=== PATIENT | female | born 1935 | race Caucasian/White ===

== ENCOUNTER 2018-06-11 09:51 | Inpatient (IN) | payer MEDICARE, MEDICAID ==
[2018-06-11] VITALS (22 sets, daily range): BP systolic 101–182; BP diastolic 53–101; PULSE 70–118; RESP 15–24
[~2018-06-11] VITALS: Ht 162.6 cm; Wt 88.0 kg
[2018-06-11] MEDS ORDERED: NITROGLYCERIN 50 MG/D5W (PMX) 250 ML IV STA (09:56)
[2018-06-11] MEDS ORDERED: FUROSEMIDE 40 MG INJ IV STA (09:56)
[2018-06-11] MEDS ORDERED: ASPIRIN 325 MG TAB PO STA (09:56)
[2018-06-11] MEDS ORDERED: ALLO100T PO (10:31)
[2018-06-11] MEDS ORDERED: ATOR40TA68 PO (10:32)
[2018-06-11] MEDS ORDERED: METF-849 PO (10:32)
[2018-06-11] MEDS ORDERED: CALC1TAB93 PO (10:33)
[2018-06-11] MEDS ORDERED: DOCU-144 PO (10:33)
[2018-06-11] MEDS ORDERED: GABA100C14 PO (10:33)
[2018-06-11] MEDS ORDERED: MELO7.5T38 PO (10:33)
[2018-06-11] MEDS ORDERED: ASPI-817 PO (10:34)
[2018-06-11] MEDS ORDERED: EMPA10TA PO (10:34)
[2018-06-11] MEDS ORDERED: ESOM20CA PO (10:34)
[2018-06-11] MEDS ORDERED: FERR325T5 PO (10:35)
[2018-06-11] MEDS ORDERED: ATEN-51 PO (10:35)
[2018-06-11] MEDS ORDERED: ALEN70TA5 PO ×2 (10:35→10:36)
[2018-06-11] MEDS ORDERED: ERGO2000 PO (10:37)
[2018-06-11] MEDS ORDERED: DULA0.75 SQ (11:00)
[2018-06-11] MEDS ORDERED: INSU100I33 SC (11:00)
--- NOTE | 2018-06-11 11:42 | ERD ---
ER Documentation Chief Complaint Chief Complaint BIB RA FOR EVAL OF SOB. BREATHING TX BY EMS HPI 82-year-old Irish speaking female presents the emergency department by paramedics complaining of shortness of breath. History available using the son as a diplomatic interpreter/translator. Patient was in her usual state of health until last night at which time she began feeling short of breath. Her shortness of breath continued over the course of the evening and got worse this morning. There was no associated chest pain, fevers, hemoptysis, sputum production. 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 Pre-hospital vital signs were reviewed. Pre-hospital diagnostic tests were reviewed. She was hypoxemic in the field and given albuterol Upon arrival, patient is complaining of shortness of breath without chest pain. ROS All systems reviewed and are negative except as per history of present illness. Medications Home Meds Reported Medications Dulaglutide (Trulicity) 0.75 Mg/0.5 Ml Pen.injctr, 1.75 MG SQ WEEKLY 06/11/18 Insulin Glargine,Hum.rec.anlog (Basaglar Kwikpen U-100) 100 Unit/1 Ml Insuln.pen, 30 UNIT SC DAILY, EA 06/11/18 Ergocalciferol (Vitamin D2) (VITAMIN D2) 2,000 Unit Tablet, 2000 UNIT PO DAILY, TAB 06/11/18 Alendronate Sodium* (Fosamax*) 70 Mg Tablet, 70 MG PO Q7D, #4 TAB 06/11/18 Alendronate Sodium* (Fosamax*) 70 Mg Tablet, 70 MG PO Q7D, #4 TAB 06/11/18 Atenolol* (Atenolol*) 25 Mg Tablet, 25 MG PO BID, #60 TAB 06/11/18 Ferrous Sulfate (Ferrous Sulfate) 325 Mg Tablet.dr, 325 MG PO DAILY 06/11/18 Aspirin* (Aspirin* EC) 81 Mg Tablet.dr, 81 MG PO DAILY, TAB 06/11/18 Empagliflozin (Jardiance) 10 Mg Tablet, 10 MG PO DAILY, TAB 06/11/18 Esomeprazole Mag Trihydrate (Nexium) 20 Mg Capsule.dr, 20 MG PO AC BREAKFAST, #30 CAP 06/11/18 Gabapentin* (Gabapentin*) 100 Mg Capsule, 100 MG PO QHS, #90 CAP 06/11/18 Meloxicam* (Meloxicam*) 7.5 Mg Tablet, 7.5 MG PO DAILY, #30 TAB 06/11/18 Calcium Carbonate/Vitamin D3 (OYSTER SHELL 500 MG + VIT D TB) 1 Each Tablet, 1 EACH PO BID, TAB 06/11/18 Docusate Sodium* (Colace*) 100 Mg Capsule, 100 MG PO TID, #60 CAP 06/11/18 Metformin* (Glucophage*) 500 Mg Tab, 500 MG PO BID, #90 TAB 06/11/18 Atorvastatin* (Atorvastatin*) 40 Mg Tablet, 40 MG PO QHS, #30 TAB 06/11/18 Allopurinol* (Allopurinol*) 100 Mg Tablet, 100 MG PO BID, TAB 06/11/18 Allergies Allergies: Coded Allergies: No Known Allergies (Verified Allergy, Unknown, 06/11/18) FmHx Supportive son at the bedside. Physical Exam Vitals Vital Signs Date Temp Pulse Resp B/P (MAP) Pulse Ox O2 O2 Flow FiO2 Time Delivery Rate 06/11/18 79 100 40 11:31 06/11/18 98 20 182/97 97 BIPAP 10:23 (125) 06/11/18 90 94 50 10:07 06/11/18 89 25 223/114 94 09:51 (150) Physical Exam GENERAL: Ill-appearing elderly female HEENT: Pupils equal, round, and reactive to light. EOMI. There is no scleral icterus. NECK: C-spine is soft and supple, there is no meningismus. There is no cervical lymphadenopathy. JVD appreciated LUNGS: Crackles bilaterally. Mild tachypnea. No retractions. HEART: Regular rate and rhythm. Soft murmur over the precordium. ABDOMEN: Soft, non-tender, non-distended. There are bowel sounds in all four quadrants. No rebound or guarding. EXTREMITIES: 1+ edema bilaterally no cyanosis or clubbing NEURO: The patient moves all four extremities with 5/5 strength. Cranial nerves II - XII are intact. Normal gait. Alert and oriented SKIN: There is no apparent rash or petechiae. HEME/LYMPHATIC: There is no evidence of excessive bruising or lymphedema. PSYCHIATRIC: The patient does not appear anxious or depressed. Result Diagram: 06/11/18 1029 06/11/18 1029 Results 24 hrs Laboratory Tests Test 06/11/18 10:29 White Blood Count 11.4 10^3/ul Red Blood Count 4.44 10^6/ul Hemoglobin 12.5 g/dl Hematocrit 39.9 % Mean Corpuscular Volume 89.9 fl Mean Corpuscular Hemoglobin 28.2 pg Mean Corpuscular Hemoglobin Concent 31.3 g/dl Red Cell Distribution Width 13.2 % Platelet Count 284 10^3/UL Mean Platelet Volume 11.6 fl Immature Granulocytes % 0.700 % Neutrophils % 72.6 % Lymphocytes % 21.1 % Monocytes % 4.5 % Eosinophils % 0.7 % Basophils % 0.4 % Nucleated Red Blood Cells % 0.0 /100WBC Immature Granulocytes # 0.080 10^3/ul Neutrophils # 8.3 10^3/ul Lymphocytes # 2.4 10^3/ul Monocytes # 0.5 10^3/ul Eosinophils # 0.1 10^3/ul Basophils # 0.1 10^3/ul Nucleated Red Blood Cells # 0.0 10^3/ul Sodium Level 144 mmol/L Potassium Level 5.0 mmol/L Chloride Level 104 mmol/L Carbon Dioxide Level 28 mmol/L Anion Gap 12 Blood Urea Nitrogen 35 mg/dl Creatinine 1.36 mg/dl Est Glomerular Filtrat Rate mL/min mL/min Glucose Level 452 mg/dl POC Venous Lactate 1.9 mmol/L Calcium Level 10.4 mg/dl Total Bilirubin 0.2 mg/dl Direct Bilirubin 0.00 mg/dl Indirect Bilirubin 0.2 mg/dl Aspartate Amino Transf (AST/SGOT) 29 IU/L Alanine Aminotransferase (ALT/SGPT) 58 IU/L Alkaline Phosphatase 124 IU/L Troponin I 0.043 ng/ml B-Type Natriuretic Peptide 6640 PG/ML Total Protein 7.0 g/dl Albumin 4.1 g/dl Globulin 2.90 g/dl Albumin/Globulin Ratio 1.41 Current Medications Medications Dose Sig/Peter Start Time Status Last (Trade) Ordered Route PRN Stop Time Admin Dose Reason Admin 250 ml @ ONCE STAT 06/11/18 06/11/18 Nitroglycerin 12 mls/hr IV 09:56 10:13 / Dextrose 06/12/18 06:45 Aspirin 325 mg ONCE STAT 06/11/18 DC 06/11/18 (Aspirin) PO 09:56 10:23 3/13/19 09:57 Furosemide 40 mg ONCE STAT 06/11/18 DC 06/11/18 (Lasix) IV 09:56 10:23 06/11/18 09:57 Procedures/MDM Patient was taken to a room, seen and evaluated. Comfort measures were initiated. Patient was immediately initiated on BiPAP and a nitroglycerin drip was started for the severe high blood pressure Diagnostic tests were ordered and reviewed. 3 LEAD RHYTHM STRIP: Normal sinus rhythm with PVCs EKG: [employer] 12 lead EKG reviewed by myself: Normal Sinus Rhythm with PVCs LVH, nonspecific interventricular conduction delay No ST elevation, depression, or T wave inversion, nonspecific ST and T wave changes Impression: Abnormal EKG without ST elevation Repeat EKG performed upon arrival and interpreted by myself: Normal sinus rhythm First-degree AV block. LVH. Nonspecific ST and T wave changes without ST elevation Impression: Consistent with underlying heart disease RADIOLOGY: Reviewed with the radiologist CONSULTATION: Primary care doctor, Dr. King was notified for admission REEVALUATION: Patient improved significantly. Her blood pressure improved. Respiratory effort improved on BiPAP. She had no further hypoxemia. Diagnostic tests were appreciated and arrangements were made for admission to the hospital. MEDICAL DECISION MAKING: Patient presents for shortness of breath. Differential diagnosis entertained included asthma, pneumonia, other cardiac and pulmonary concerns. After reviewing the patient's diagnostic tests and clinical presentation, patient appears to have decompensated congestive heart failure, complicated by diabetes as well as severe accelerated hypertension all resulting in a hypoxemic respiratory failure. She will require admission to the hospital for further diuresis, pulmonary supportive care and further observation. CRITICAL CARE: Time:>35 minutes Patient has a significant chance of clinical deterioration Treatments/Evaluations: Close monitoring and treatment of unstable vital signs, cardiorespiratory, and neurologic status, while maintaining tight balance of fluid, respiratory, and cardiac interventions. Departure Diagnosis: Primary Impression: Congestive heart failure Additional Impressions: Hypertension Diabetes Respiratory failure Condition: Serious SPENCER MACK Jun 11, 2018 11:42
[2018-06-11] MEDS ORDERED: CEFTRIAXONE 1 GM/50 ML (PMX) 50 ML IVPB ONE (16:30)
--- NOTE | 2018-06-11 17:06 | RADRPT ---
Echocardiogram Report Patient Name: Bhavani COLEMAN ID: [id number] : 1935 (82y 6m)Study Date: 06/11/2018 4:22:53 PM Gender: FAccession #: [id number] Tech: [facility] Location: [facility] Ref.Physician: ALEX CHÁVEZ Height(Cm): BSA: Weight(Kg): Quality: AdequateAccount #: Procedures: Echocardiographic Report: Transthoracic echocardiogram with complete 2D, M-Mode, and doppler examination. Indications: Congestive Heart Failure. Measurements: 2D/M Mode Doppler Measurement Value Normal Range Measurement Value Normal Range LVIDd 2D 4.6 [ 3.8 - 5.2 ] cm AV Peak Anuj 1.7 [ 100.0 - 170.0 ] cm/sec LVIDs 2D 3.2 [ 2.2 - 3.5 ] cm AV Peak PG 11.0 [ 2.0 - 9.0 ] mmHg LVPWd 2D 1.1 [ 0.6 - 0.9 ] cm LVOT Peak Anuj 0.8 [ 70.0 - 110.0 ] cm/sec IVSd 2D 1.1 [ 0.6 - 0.9 ] cm LVOT Peak PG 2.0 [ 2.0 - 6.0 ] mmHg IVS/LVPW 2D 1.0 ratio MV E Peak Anuj 0.8 [ 60.0 - 130.0 ] cm/sec AoR Diam 2D 2.3 [ 2.3 - 3.1 ] cm MV A Peak Anuj 0.6 [ 100.0 - 120.0 ] cm/sec LA/Ao 2D 2 ratio MV E/A 1.3 [ 0.8 - 1.5 ] ratio LA Dimen 2D 3.7 [ 2.7 - 3.8 ] cm MV Decel Time 148 [ 104 - 258 ] msec Med E` Anuj 0.1 cm/sec MV E/A 1.3 [ 0.8 - 1.5 ] ratio TR Peak Anuj 2.2 [ 100.0 - 280.0 ] cm/sec TR Peak PG 19.0 mmHg RVSP 22.0 [ 10.0 - 36.0 ] mmHg Findings: Left Ventricle: Lower limits of normal systolic function. Normal left ventricular cavity size. Normal left ventricular wall thickness. Ejection fraction is visually estimated at 50 %. Abnormal Diastolic Function. Right Ventricle: Normal right ventricular size. Normal right ventricular systolic function. Left Atrium: The left atrium is normal in size. Right Atrium: The right atrium is normal in size. Echogenic structure seen. Mitral Valve: Mild mitral leaflet calcification. Mild mitral annular calcification. Trace mitral regurgitation. Aortic Valve: No significant aortic stenosis or insufficiency. Aortic cusps appear mildly calcified. Tricuspid Valve: Estimated peak PA systolic pressure 22 mmHg. Echogenic structure is seen on the tricuspid valve. Differential includes vegetation, tumor or thrombus. Pulmonic Valve: Normal pulmonic valve appearance. Pericardium: Normal pericardium with no significant pericardial effusion. Left pleural effusion seen. Aorta: Normal aortic root. IVC: Normal size and normal respiratory collapse consistent with normal right atrial pressure. Echogenic structure seen. Conclusions: Lower limits of normal systolic function. Normal left ventricular cavity size. Normal left ventricular wall thickness. Ejection fraction is visually estimated at 50 %. Abnormal Diastolic Function. Normal right ventricular size. Normal right ventricular systolic function. The left atrium is normal in size. The right atrium is normal in size. Echogenic structure seen. Estimated peak PA systolic pressure 22 mmHg. Echogenic structure is seen on the tricuspid valve. Differential includes vegetation, tumor or thrombus. No significant aortic stenosis or insufficiency. Trace mitral regurgitation. Normal size and normal respiratory collapse consistent with normal right atrial pressure. Echogenic structure seen. Normal pericardium with no significant pericardial effusion. Left pleural effusion seen. Electronically Signed By: Alex Chávez 2018-06-11 17:05:55 PDT
[2018-06-11] MEDS ORDERED: ZOLPIDEM 5 MG TAB PO PRN (17:30)
[2018-06-11] MEDS ORDERED: FUROSEMIDE 20 MG INJ IV ONE (17:30)
--- NOTE | 2018-06-11 17:41 | CONS ---
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 In emergency room, patient with acute respiratory failure requiring BiPAP and severe hypertension. Patient was treated with BiPAP, IV diuretics and IV nitroglycerin and has since been weaned off BiPAP. On examination, she does have decompensated congestive heart failure. -Furthermore, echocardiogram demonstrated an echogenic structure in the right atrium, as well as attached to the tricuspid valve as well as the IVC. Differential includes vegetation, malignancy or thrombus. In discussion with patient and son, she did have chills this morning but otherwise no prodrome history of prolonged fevers or chills. She did have a history of renal carcinoma approximately 8 years ago and this was resected. -I have requested blood cultures, CT abdomen pelvis to evaluate for any malignancy, venous Doppler to evaluate for any DVT -Check serial cardiac enzymes, diuretics as renal function and blood pressure permits, antihypertensive medication titration -Findings and plan of care was discussed with patient's primary physician as well as patient's son at bedside. Consultation Date/Type/Reason Admit Date/Time Type of Consult Cardiology Reason for Consultation Shortness of breath Date/Time of Note DATE: 06/11/18 TIME: 17:33 Hx of Present Illness This is an 82-year-old female with past medical history of coronary artery disease status post CABG over 20 years ago, renal cell carcinoma status post nephrectomy approximately 8 years ago, hypertension, diabetes who presents with progressive worsening shortness of breath since last night. Denies chest pain or palpitations. Did have chills this morning. Symptoms getting progressively worse so she came to the emergency room. Patient was initially on BiPAP and given diuretics and put on IV nitroglycerin and is since improved and is currently on nasal cannula. Denies any chest pain, shortness of breath or palpitations. Except for chills this morning, she denies any fevers or symptoms prior. As per the son, proxy 1 week ago, patient with more frequent forgetfu lness and difficulty remembering phone numbers. Denies weight loss or weight gain or change in appetite. 12 point review of systems was performed with all pertinent positives and negatives mentioned above and all else is negative Past Medical History Medical History: coronary artery disease, diabetes, high cholesterol, hypertension, renal disease Home Meds Reported Medications Dulaglutide (Trulicity) 0.75 Mg/0.5 Ml Pen.injctr, 1.75 MG SQ WEEKLY 06/11/18 Insulin Glargine,Hum.rec.anlog (Basaglar Kwikpen U-100) 100 Unit/1 Ml Insuln.pen, 30 UNIT SC DAILY, EA 06/11/18 Ergocalciferol (Vitamin D2) (VITAMIN D2) 2,000 Unit Tablet, 2000 UNIT PO DAILY, TAB 06/11/18 Alendronate Sodium* (Fosamax*) 70 Mg Tablet, 70 MG PO Q7D, #4 TAB 06/11/18 Alendronate Sodium* (Fosamax*) 70 Mg Tablet, 70 MG PO Q7D, #4 TAB 06/11/18 Atenolol* (Atenolol*) 25 Mg Tablet, 25 MG PO BID, #60 TAB 06/11/18 Ferrous Sulfate (Ferrous Sulfate) 325 Mg Tablet.dr, 325 MG PO DAILY 06/11/18 Aspirin* (Aspirin* EC) 81 Mg Tablet.dr, 81 MG PO DAILY, TAB 06/11/18 Empagliflozin (Jardiance) 10 Mg Tablet, 10 MG PO DAILY, TAB 06/11/18 Esomeprazole Mag Trihydrate (Nexium) 20 Mg Capsule.dr, 20 MG PO AC BREAKFAST, #30 CAP 06/11/18 Gabapentin* (Gabapentin*) 100 Mg Capsule, 100 MG PO QHS, #90 CAP 06/11/18 Meloxicam* (Meloxicam*) 7.5 Mg Tablet, 7.5 MG PO DAILY, #30 TAB 06/11/18 Calcium Carbonate/Vitamin D3 (OYSTER SHELL 500 MG + VIT D TB) 1 Each Tablet, 1 EACH PO BID, TAB 06/11/18 Docusate Sodium* (Colace*) 100 Mg Capsule, 100 MG PO TID, #60 CAP 06/11/18 Metformin* (Glucophage*) 500 Mg Tab, 500 MG PO BID, #90 TAB 06/11/18 Atorvastatin* (Atorvastatin*) 40 Mg Tablet, 40 MG PO QHS, #30 TAB 06/11/18 Allopurinol* (Allopurinol*) 100 Mg Tablet, 100 MG PO BID, TAB 06/11/18 Medications Current Medications Nitroglycerin/ Dextrose 250 ml @ 12 mls/hr ONCE STAT IV Last administered on 06/11/18at 10:13; Admin Dose 30 MLS/HR; Start 06/11/18 at 09:56; Stop 06/12/18 at 06:45 Aspirin (Halfprin) 81 mg DAILY PO ; Start 06/12/18 at 09:00 Atorvastatin Calcium (Lipitor) 40 mg QHS PO ; Start 06/11/18 at 21:00 Docusate Sodium (Colace) 100 mg TID PO ; Start 06/11/18 at 21:00 Furosemide (Lasix) 40 mg DAILY ONCE IV ; Start 06/12/18 at 09:00; Stop 06/12/18 at 09:01 Clonidine (Catapres) 0.1 mg Q6 PRN PO for sbp over 160; Start 06/11/18 at 17:30; Status UNV Zolpidem Tartrate (Ambien) 5 mg HS PRN PO INSOMNIA; Start 06/11/18 at 17:30; Status UNV Allergies: Coded Allergies: No Known Allergies (Verified Allergy, Unknown, 06/11/18) Past Surgical History Past Surgical Hx: coronary bypass surgery, other (Nephrectomy approximately 8 years ago) Family History Significant Family History: no pertinent family hx Social History Alcohol Use: none Smoking Status: Never smoker Exam/Review of Systems Vital Signs Vitals Vital Signs Date Temp Pulse Resp B/P (MAP) Pulse Ox O2 O2 Flow FiO2 Time Delivery Rate 06/11/18 98.0 71 20 179/76 96 Room Air 4.0 16:20 (110) 74 BIPAP Nasal Cannula 06/11/18 40 11:31 Exam Constitutional: alert, oriented (No apparent distress, son at bedside) Head: normocephalic Respiratory: other (Coarse breath sounds bilaterally, no wheezing) Cardiovascular: regular rate and rhythm, other (S1-S2 heard) Gastrointestinal: soft, non-tender, bowel sounds Extremities: edema Labs Result Diagram: 06/11/18 1029 06/11/18 1029 Results 24hrs Laboratory Tests Test 06/11/18 10:29 06/11/18 15:26 White Blood Count 11.4 H Red Blood Count 4.44 Hemoglobin 12.5 Hematocrit 39.9 Mean Corpuscular Volume 89.9 Mean Corpuscular Hemoglobin 28.2 L Mean Corpuscular Hemoglobin Concent 31.3 L Red Cell Distribution Width 13.2 Platelet Count 284 Mean Platelet Volume 11.6 H Immature Granulocytes % 0.700 H Neutrophils % 72.6 Lymphocytes % 21.1 Monocytes % 4.5 Eosinophils % 0.7 Basophils % 0.4 Nucleated Red Blood Cells % 0.0 Immature Granulocytes # 0.080 H Neutrophils # 8.3 H Lymphocytes # 2.4 Monocytes # 0.5 Eosinophils # 0.1 Basophils # 0.1 Nucleated Red Blood Cells # 0.0 Prothrombin Time 12.3 Prothrombin Time Ratio 1.0 INR International Normalized Ratio 0.90 Activated Partial Thromboplast Time 24.0 Sodium Level 144 Potassium Level 5.0 Chloride Level 104 Carbon Dioxide Level 28 Anion Gap 12 Blood Urea Nitrogen 35 H Creatinine 1.36 H Est Glomerular Filtrat Rate mL/min Glucose Level 452 *H Hemoglobin A1c 10.1 H POC Venous Lactate 1.9 Calcium Level 10.4 H Total Bilirubin 0.2 Direct Bilirubin 0.00 Indirect Bilirubin 0.2 Aspartate Amino Transf (AST/SGOT) 29 Alanine Aminotransferase (ALT/SGPT) 58 Alkaline Phosphatase 124 H Troponin I 0.043 B-Type Natriuretic Peptide 6640 H Total Protein 7.0 Albumin 4.1 Globulin 2.90 Albumin/Globulin Ratio 1.41 Lactic Acid Level 2.7 *H Imaging Imaging ECG demonstrates sinus rhythm at 93 bpm, septal Q waves, QRS 90 ms, nonspecific ST abnormalities Medications Medications Current Medications Nitroglycerin/ Dextrose 250 ml @ 12 mls/hr ONCE STAT IV Last administered on 06/11/18at 10:13; Admin Dose 30 MLS/HR; Start 06/11/18 at 09:56; Stop 06/12/18 at 06:45 Aspirin (Halfprin) 81 mg DAILY PO ; Start 06/12/18 at 09:00 Atorvastatin Calcium (Lipitor) 40 mg QHS PO ; Start 06/11/18 at 21:00 Docusate Sodium (Colace) 100 mg TID PO ; Start 06/11/18 at 21:00 Furosemide (Lasix) 40 mg DAILY ONCE IV ; Start 06/12/18 at 09:00; Stop 06/12/18 at 09:01 Clonidine (Catapres) 0.1 mg Q6 PRN PO for sbp over 160; Start 06/11/18 at 17:30; Status UNV Zolpidem Tartrate (Ambien) 5 mg HS PRN PO INSOMNIA; Start 06/11/18 at 17:30; Status UNV Alex Chávez DO Jun 11, 2018 17:41
[2018-06-11] MEDS ORDERED: VANCOMYCIN IV PER PHARMACY XX SCH (18:30)
[2018-06-11] MEDS: AMLODIPINE 5 MG TAB PO SCH (18:37)
--- NOTE | 2018-06-11 18:52 | HP ---
DATE OF ADMISSION: 06/11/2018 HISTORY OF PRESENT ILLNESS: An 82-year-old female who came into the emergency room with acute shortn ess of breath and discomfort over the chest. The patient has been having 1 week duration of elevated blood pressure in the 160s over 90s and for 1 week, she was very confused. She says she was very fo rgetful forgetting phone numbers of her children and not feeling right. She was complaining of some heaviness in the head and checking blood pressure which was elevated multiple times. She was taking her medications and she thought it would go away. She never called the office for evaluation or to c [facility] and see me in the office. Today, the patient woke up very short of breath, more confused and dis comfort over the chest with headache and rash in her head; therefore that is why she was brought into the emergency room. HOME MEDICATIONS: As follows: She is on: 1. Trulicity 0.75 once a week. 2. Insulin per sliding scale. 3. Vitamin D once a week. 4. Fosamax 70 once a week. 5. Atenolol 25 twice a day. 6. Ferrous sulfate twice a day. 7. Aspirin 81 once a day. 8. Jardiance 10 once a day. 9. Nexium 20 twice a day. 10. Gabapentin 100 twice a day. 11. Meloxicam 7.5 daily. 12. Calcium Os-Sanjay 500 twice a day. 13. Docusate on p.r.n. basis. 14. Metformin 500 twice a day. 15. Atorvastatin 40 once a day. 16. Allopurinol 100 once a day. ALLERGIES: NO KNOWN DRUG ALLERGIES. FAMILY HISTORY: Hypertension. PAST MEDICAL HISTORY: Atherosclerotic vascular disease, coronary artery disease. She has been follo wing up in the past with Dr. Mike De Oliveira. She has history of type 2 diabetes mellitus with compli cations that she has had history of kidney CA and nephrectomy in the past, history of osteoarthritis, gastroesophageal reflux disease, chronic anemia and degenerative joint disease. ALLERGIES: NO KNOWN DRUG ALLERGIES. REVIEW OF SYSTEMS: The patient is a little confused to me because I have known her for many, many ye ars. She looks a little confused. She is also short of breath. She denies of any headaches at this time. She denies of any chest pain, just complaining of discomfort for grasping air. She denies of any epigastric pain. She denies of any hesitancy, urgency or pain during urination. She just feels generally very weak and tired. PHYSICAL EXAMINATION: VITAL SIGNS: Blood pressure at this time is 180/97, heart rate 125, respiratory rate is 22 and she i s saturating 95% on BiPAP. HEENT: Head is atraumatic, normocephalic. Pupils are equal and reactive to light. Extraocular musc les are intact. Nares are clear. No obstruction, no deviation of the septum. Oral cavity: Normal oral hygiene and very dry mouth. Ear canals are clear. No signs of inflammation or infection. Tymp anic membranes are intact. NECK: Supple. No JVD, no surgical scars, no lymph nodes palpable over the neck. CHEST: AP contour is within normal limits. BREASTS: Nipples are normal. No nipple retraction. HEART: S1, S2. Regular rate and rhythm with cardiomegaly. LUNGS: Has crackles over the bases of the lungs; otherwise negative. ABDOMEN: Obese, soft, positive bowel sounds. No hepatosplenomegaly, no masses palpable over the abd omen and no rebound tenderness. EXTREMITIES: Has no edema, clubbing or cyanosis of the extremities. NEUROLOGIC: Cranial nerves II through XII are completely intact. No focal deficits at this time. LABORATORY RESULTS: White count is 11.4, hemoglobin 12.5, hematocrit 39.9 and platelets 284. Chemis try: Sodium 144, potassium 5.0, BUN is 35, creatinine 1.36. DIAGNOSTIC DATA: No acute changes in the EKG. Chest x-ray shows CHF. The patient at this time is on nitroglycerin drip and her blood pressure gradually came down to the 1 60s, but still maintaining on the nitro drip. She was given IV Lasix in the emergency room and at th is time, the patient is comfortable. ADMITTING DIAGNOSES: 1. Acute congestive heart failure exacerbation. 2. Acute sepsis, possible urinary tract infection. 3. Elevated lactate levels. 4. Type 2 diabetes mellitus, uncontrolled. 5. Hyperglycemia. 6. Diabetic neuropathy. 7. Gastroesophageal reflux disease. 8. Possible transient ischemic attacks. PLAN: Admit the patient to ICU. Continue nitro drip, BiPAP. We will consult with housekeeping cleaner, Dr. Rodriguez and winchman/crane operator, Dr. Serrato. We will get serial cardiac enzymes. We will diurese the pat ient and we will also get a CT head to rule out any ischemic changes. Dictated By: NUBIA TEJEDA MD SB/JAYDEN Conf#: [id number] DID#: [id number] CC: SPENCER MACK; PÉREZ SERRATO MD;*EndCC*
[2018-06-11] MEDS: hydrALAzine 20 MG INJ IV PRN (19:48)
[2018-06-11] MEDS ORDERED: DEXTROSE 50% 50 ML SYRINGE IV PRN ×2 (21:00)
[2018-06-11] MEDS ORDERED: GLUCAGON 1 MG INJ IM PRN (21:00)
[2018-06-11] MEDS ORDERED: GLUCOSE GEL 15 GRAM TUBE PO PRN ×2 (21:00)
[2018-06-11] MEDS ORDERED: GLUCOSE GEL 15 GRAM TUBE BUCCAL PRN (21:00)
--- NOTE | 2018-06-11 21:56 | CONS ---
Assessment/Plan Assessment/Plan Hospital Course (Demo Recall) History of renal carcinoma status post nephrectomy focally prominent 2.7 cm soft tissue lobulation in the inferior left renal lower pole adjacent to surgical clips, possibly reflecting postsurgical change or recurrent neoplasm. renal protocol multi phase enhanced CT or MRI. complete staging with CT AP CHECK LDH -Furthermore, echocardiogram demonstrated an echogenic structure in the right atrium, as well as attached to the tricuspid valve as well as the IVC. Differential includes vegetation, malignancy or thrombus. In discussion with patient and son, she did have chills this morning but otherwise no prodrome history of prolonged fevers or chills. She did have a history of renal carcinom a approximately 8 years ago and this was resected. The IVC is focally distended at the inferior cavoatrial junction, containing an 8 mm metallic focus which may lie within intravenous tumor mass. Evaluation is quite limited in the absence of intravenous contrast. 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 Coarse calcifications in the left breast parenchyma, most likely benign. diagnostic mammography as outpt Acute congestive heart failure exacerbation. Acute sepsis, possible urinary tract infection. Elevated lactate levels. Type 2 diabetes mellitus, uncontrolled. Hyperglycemia. Diabetic neuropathy. Gastroesophageal reflux disease. Possible transient ischemic attacks. Hypertension, uncontrolled Consultation Date/Type/Reason Admit Date/Time Date of Consultation: Jun 11, 2018 Type of Consult [facility] Reason for Consultation cardiac mass Requesting Provider: NUBIA TEJEDA MD Date/Time of Note DATE: 06/11/18 TIME: 21:45 Hx of Present Illness An 82-year-old female who came into the emergency room with acute shortness of breath and discomfort over the chest. The patient has been having 1 week duration of elevated blood pressure in the 160s over 90s and for 1 week, she was very confused. She says she was very forgetful forgetting phone numbers of her children and not feeling right. She was complaining of some heaviness in the head and checking blood pressure which was elevated multiple times. She was taking her medications and she thought it would go away. pt is more confused and have a discomfort over the chest with headache and rash in her head; therefore that is why she was brought into the emergency room. HOME MEDICATIONS: As follows: She is on: 1. Trulicity 0.75 once a week. 2. Insulin per sliding scale. 3. Vitamin D once a week. 4. Fosamax 70 once a week. 5. Atenolol 25 twice a day. 6. Ferrous sulfate twice a day. 7. Aspirin 81 once a day. 8. Jardiance 10 once a day. 9. Nexium 20 twice a day. 10. Gabapentin 100 twice a day. 11. Meloxicam 7.5 daily. 12. Calcium Os-Sanjay 500 twice a day. 13. Docusate on p.r.n. basis. 14. Metformin 500 twice a day. 15. Atorvastatin 40 once a day. 16. Allopurinol 100 once a day. ALLERGIES: NO KNOWN DRUG ALLERGIES. FAMILY HISTORY: Hypertension. PAST MEDICAL HISTORY: Atherosclerotic vascular disease, coronary artery disease. She has been following up in the past with Dr. Mike De Oliveira. She has history of type 2 diabetes mellitus with complications that she has had history of kidney CA and nephrectomy in the past, history of osteoarthritis, gastroesophageal reflux disease, chronic anemia and degenerative joint disease. ALLERGIES: NO KNOWN DRUG ALLERGIES. REVIEW OF SYSTEMS: The patient is a little confused to me because I have known her for many, many years. She looks a little confused. She is also short of breath. She denies of any headaches at this time. She denies of any chest pain , just complaining of discomfort for grasping air. She denies of any epigastric pain. She denies of any hesitancy, urgency or pain during urination. She just feels generally very weak and tired. Past Medical History Home Meds Reported Medications Dulaglutide (Trulicity) 0.75 Mg/0.5 Ml Pen.injctr, 1.75 MG SQ WEEKLY 06/11/18 Insulin Glargine,Hum.rec.anlog (Basaglar Kwikpen U-100) 100 Unit/1 Ml Insuln.pen, 30 UNIT SC DAILY, EA 06/11/18 Ergocalciferol (Vitamin D2) (VITAMIN D2) 2,000 Unit Tablet, 2000 UNIT PO DAILY, TAB 06/11/18 Alendronate Sodium* (Fosamax*) 70 Mg Tablet, 70 MG PO Q7D, #4 TAB 06/11/18 Alendronate Sodium* (Fosamax*) 70 Mg Tablet, 70 MG PO Q7D, #4 TAB 06/11/18 Atenolol* (Atenolol*) 25 Mg Tablet, 25 MG PO BID, #60 TAB 06/11/18 Ferrous Sulfate (Ferrous Sulfate) 325 Mg Tablet.dr, 325 MG PO DAILY 06/11/18 Aspirin* (Aspirin* EC) 81 Mg Tablet.dr, 81 MG PO DAILY, TAB 06/11/18 Empagliflozin (Jardiance) 10 Mg Tablet, 10 MG PO DAILY, TAB 06/11/18 Esomeprazole Mag Trihydrate (Nexium) 20 Mg Capsule.dr, 20 MG PO AC BREAKFAST, #30 CAP 06/11/18 Gabapentin* (Gabapentin*) 100 Mg Capsule, 100 MG PO QHS, #90 CAP 06/11/18 Meloxicam* (Meloxicam*) 7.5 Mg Tablet, 7.5 MG PO DAILY, #30 TAB 06/11/18 Calcium Carbonate/Vitamin D3 (OYSTER SHELL 500 MG + VIT D TB) 1 Each Tablet, 1 EACH PO BID, TAB 06/11/18 Docusate Sodium* (Colace*) 100 Mg Capsule, 100 MG PO TID, #60 CAP 06/11/18 Metformin* (Glucophage*) 500 Mg Tab, 500 MG PO BID, #90 TAB 06/11/18 Atorvastatin* (Atorvastatin*) 40 Mg Tablet, 40 MG PO QHS, #30 TAB 06/11/18 Allopurinol* (Allopurinol*) 100 Mg Tablet, 100 MG PO BID, TAB 06/11/18 Medications Current Medications Nitroglycerin/ Dextrose 250 ml @ 12 mls/hr ONCE STAT IV Last administered on 06/11/18at 10:13; Admin Dose 30 MLS/HR; Start 06/11/18 at 09:56; Stop 06/12/18 at 06:45 Aspirin (Halfprin) 81 mg DAILY PO ; Start 06/12/18 at 09:00 Atorvastatin Calcium (Lipitor) 40 mg QHS PO ; Start 06/11/18 at 21:00 Docusate Sodium (Colace) 100 mg TID PO ; Start 06/11/18 at 21:00 Furosemide (Lasix) 40 mg DAILY IV ; Start 06/12/18 at 09:00 Clonidine (Catapres) 0.1 mg Q6H PRN PO for sbp over 160; Start 06/11/18 at 17:30 Zolpidem Tartrate (Ambien) 5 mg HS PRN PO INSOMNIA; Start 06/11/18 at 17:30 Amlodipine Besylate (Norvasc) 5 mg DAILY PO Last administered on 06/11/18at 18:37; Admin Dose 5 MG; Start 06/11/18 at 17:30 Hydralazine HCl (Apresoline) 10 mg Q4H PRN IV sbp>165 Last administered on 06/11/18at 19:48; Admin Dose 10 MG; Start 06/11/18 at 17:30 Carvedilol (Coreg) 3.125 mg BID PO ; Start 06/11/18 at 21:00 Vancomycin HCl (Vanco Iv Per Pharmacy) VANCOMYCIN PER PHARMACY PER PROTOCOL XX ; Start 06/11/18 at 18:30 Diagnostic Test (Pha) (Accu-Chek) 1 ea 02 XX ; Start 06/12/18 at 02:00 Miscellaneous Information 1 ea NOTE XX ; Start 06/11/18 at 21:00 Glucose (Glutose) 15 gm Q15M PRN PO DECREASED GLUCOSE; Start 06/11/18 at 21:00 Glucose (Glutose) 22.5 gm Q15M PRN PO DECREASED GLUCOSE; Start 06/11/18 at 21:00 Dextrose (D50w Syringe) 25 ml Q15M PRN IV DECREASED GLUCOSE; Start 06/11/18 at 21:00 Dextrose (D50w Syringe) 50 ml Q15M PRN IV DECREASED GLUCOSE; Start 06/11/18 at 21:00 Glucagon (Glucagen) 1 mg Q15M PRN IM DECREASED GLUCOSE; Start 06/11/18 at 21:00 Glucose (Glutose) 15 gm Q15M PRN BUCCAL DECREASED GLUCOSE; Start 06/11/18 at 21:00 Insulin Aspart (Novolog Insulin Pen) NOVOLOG *MODERATE* ALGORI... Q4 SC ; Start 06/11/18 at 21:00 Vancomycin HCl 1.75 gm/Sodium Chloride 500 ml @ 125 mls/hr NOW IVPB ; Start 06/11/18 at 22:00; Stop 06/11/18 at 23:59 Vancomycin HCl 250 ml @ 125 mls/hr Q24H IVPB ; Start 06/12/18 at 22:00 Allergies: Coded Allergies: No Known Allergies (Verified Allergy, Unknown, 06/11/18) Past Surgical History Past Surgical Hx: coronary bypass surgery, other (Nephrectomy approximately 8 years ago) Social History Alcohol Use: none Smoking Status: Never smoker Exam/Review of Systems Exam Vitals Vital Signs Date Temp Pulse Resp B/P (MAP) Pulse Ox O2 O2 Flow FiO2 Time Delivery Rate 06/11/18 106 19 119/88 20:45 (98) 06/11/18 100 20:00 06/11/18 98.0 Room Air 4.0 18:40 BIPAP Nasal Cannula 06/11/18 40 11:31 Exam PHYSICAL EXAMINATION: HEENT: Head is atraumatic, normocephalic. Pupils are equal and reactive to light. Extraocular muscles are intact. Nares are clear. No obstruction, no deviation of the septum. Oral cavity: Normal oral hygiene and very dry mouth. Ear canals are clear. No signs of inflammation or infection. Tympanic membranes are intact. NECK: Supple. No JVD, no surgical scars, no lymph nodes palpable over the neck. CHEST: AP contour is within normal limits. BREASTS: Nipples are normal. No nipple retraction. HEART: S1, S2. Regular rate and rhythm with cardiomegaly. LUNGS: Has crackles over the bases of the lungs; otherwise negative. ABDOMEN: Obese, soft, positive bowel sounds. No hepatosplenomegaly, no masses palpable over the abdomen and no rebound tenderness. EXTREMITIES: Has no edema, clubbing or cyanosis of the extremities. NEUROLOGIC: Cranial nerves II through XII are completely intact. No focal deficits at this time. Results Result Diagram: 06/11/18 1029 06/11/18 1029 Results 24hrs Laboratory Tests Test 06/11/18 10:29 06/11/18 15:26 06/11/18 17:04 06/11/18 19:45 White Blood Count 11.4 H Red Blood Count 4.44 Hemoglobin 12.5 Hematocrit 39.9 Mean Corpuscular 89.9 Volume Mean Corpuscular 28.2 L Hemoglobin Mean Corpuscular 31.3 L Hemoglobin Concent Red Cell 13.2 Distribution Width Platelet Count 284 Mean Platelet Volume 11.6 H Immature 0.700 H Granulocytes % Neutrophils % 72.6 Lymphocytes % 21.1 Monocytes % 4.5 Eosinophils % 0.7 Basophils % 0.4 Nucleated Red Blood 0.0 Cells % Immature 0.080 H Granulocytes # Neutrophils # 8.3 H Lymphocytes # 2.4 Monocytes # 0.5 Eosinophils # 0.1 Basophils # 0.1 Nucleated Red Blood 0.0 Cells # Prothrombin Time 12.3 Prothrombin Time 1.0 Ratio INR International 0.90 Normalized Ratio Activated 24.0 Partial Thromboplast Time Sodium Level 144 Potassium Level 5.0 Chloride Level 104 Carbon Dioxide Level 28 Anion Gap 12 Blood Urea Nitrogen 35 H Creatinine 1.36 H Est Glomerular Filtrat Rate mL/min Glucose Level 452 *H Hemoglobin A1c 10.1 H POC Venous Lactate 1.9 Calcium Level 10.4 H Total Bilirubin 0.2 Direct Bilirubin 0.00 Indirect Bilirubin 0.2 Aspartate Amino 29 Transf (AST/SGOT) Alanine 58 Aminotransferase (AL T/SGPT) Alkaline Phosphatase 124 H Troponin I 0.043 B-Type Natriuretic 6640 H Peptide Total Protein 7.0 Albumin 4.1 Globulin 2.90 Albumin/Globulin 1.41 Ratio Lactic Acid Level 2.7 *H 2.1 *H Bedside Glucose 450 *H Imaging Imaging PROCEDURE: CT Abdomen and Pelvis without contrast. CLINICAL INDICATION: Reported masses in the right atrium and IVC in patient with history of renal cell carcinoma. TECHNIQUE: Unenhanced CT scan of the abdomen and pelvis was performed on a multi-detector high-resolution CT scanner. Coronal and sagittal reformatted images were obtained from the axial source images. Images were reviewed on a high-resolution PACS workstation. The total exam CTDI equals 18.0 mGy and the total exam DLP equals 979.7 mGy-cm. DICOM images are available. One or more of the following dose reduction techniques were utilized: 1.) Automated exposure control 2.) Adjustment of the mA +/- kV according to patient's size 3.) Use of iterative reconstruction technique. COMPARISON: No prior abdomen pelvis studies available for comparison in the PACS at time of image interpretation. FINDINGS: Evaluation of the soft tissues and viscera is technically limited in the absence of intravenous contrast. This significantly limits evaluation for reported car diac and vascular masses. Partially visualized small - moderate bilateral pleural effusions, worse on the right, with associated compressive atelectasis of the basilar and posterior lower lobes, evaluation degraded by respiratory motion artifact. Heart size is normal without identifiable significant pericardial effusion. Aortic and mitral valve calcifications. Coronary artery calcifications. Partially visualized post sternotomy changes. The IVC is focally distended to 3.2 cm diameter at the in ferior cavoatrial junction, containing an 8 mm metallic focus which may lie within intravenous tumor mass, demonstrating associated star artifact limiting evaluation of the local anatomy (axial image 26, coronal image 49, sagittal image 67). Severe systemic atherosclerotic calcifications without abdominal aortoiliac aneurysmal dilatation. No pathologic lymphadenopathy identified by imaging criteria in the absence of intravenous contrast. Liver demonstrates normal size and contour, without identifiable focal mass lesion in the absence of intravenous contrast. Cholelithiasis versus sludge in t he moderately distended gallbladder without identifiable pericholecystic inflammatory change or extrahepatic biliary ductal dilatation. Mild fatty pancreatic atrophy slightly asymmetrically involves the head. Spleen is normal in size. Left adrenal 11 mm adenoma (axial image 46). Right adrenal gland appears normal. Bowel is unobstructed without free air, free fluid or focal mesenteric inflammatory change. Appendix appears normal. Few scattered tiny left colonic diverticuli without evidence of acute diverticulitis. The left kidney is scarred and lobulated with multiple surgical clips about the lower pole likely reflecting prior partial nephrectomy. Focally prominent ovoid 2.4 x 2.7 x 1.8 cm soft tissue lobulation in the inferior left renal lower pole adjacent to surgical clips could reflect postsurgical change or recurrent neoplasm (axial image 68, coronal image 62, sagittal image 101). Right renal upper pole 8 mm exophytic hyperattenuating focus likely reflects hemorrhagic cyst (axial image 66, coronal image 56). Punctate 1-2 mm nonobstructive nephrolithiasis in bilateral renal lower poles without hydronephrosis. The ureters run unobstructed to a normal - appearing mildly distended bladder containing a Odonnell catheter. The uterus appears age appropriate. No pathologic adnexal mass identified in the absence of intravenous contrast. Diffuse bony demineralization. Mild reversal of upper lumbar lordosis centered on L2-3. Minimal 4 mm grade 1 anterolisthesis of L5 on S1, associated with degenerative changes suggesting chronicity. Multilevel spondylotic changes with degenerative endplate changes, loss of disc height, vacuum disc effect and generalized bulging with associated marginal endplate osteophytosis, facet hypertrophy and ligamentum flavum thickening which appears most pronounced at L4-5 and L5-S1 where there is moderate - severe canal and neural foraminal stenosis, suboptimally evaluated by CT.. Healed midline infraumbilical laparotomy wound with postsurgical changes of the ventral abdominal hernia mesh repair. Tiny bilobed 24 x 9 x 19 mm fatty alecia-incisional hernia noted at the inferior aspect of the mesh repair (axial image 124, coronal image 25, sagittal image 67). Coarse calcifications noted in the left breast parenchyma (axial image 9). IMPRESSION: 1. The IVC is focally distended at the inferior cavoatrial junction, containing an 8 mm metallic focus which may lie within intravenous tumor mass. Evaluation is quite limited in the absence of intravenous contrast. 2. Status post left renal lower pole partial nephrectomy with focally prominent 2.7 cm soft tissue lobulation in the inferior left renal lower pole adjacent to surgical clips, possibly reflecting postsurgical change or recurrent neoplasm. Clinical correlation recommended with consideration for further evaluation with renal protocol multi phase enhanced CT or MRI. 3. Punctate nonobstructive bilateral nephrolithiasis without hydronephrosis. 4. Small - moderate bilateral pleural effusions, worse on the right. 5. Aortic and mitral valve calcifications may reflect valvular stenosis, without sakina cardiomegaly. Coronary artery calcifications. Partially visualized post sternotomy changes. Atherosclerosis. 6. Cholelithiasis versus sludge in the moderately distended gallbladder without sakina evidence of acute cholecystitis. This can be better evaluated with right upper quadrant ultrasound if clinically warranted. 7. 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 Minimal left colonic diverticulosis without evidence of acute diverticulitis. The bowel is unobstructed without evidence of perforation or abscess, and the appendix appears normal. 8. Status post midline infraumbilical ventral abdominal hernia mesh repair with tiny residual or recurrent alecia-incisional hernia noted at the inferior aspect. 9. Minimal chronic degenerative L5-S1 grade 1 anterolisthesis. 10. Multilevel spondylotic changes appear most pronounced at L4-5 and L5-S1, where there is moderate - severe canal and neural foraminal stenosis. This can be better evaluated by MRI L-spine if clinically warranted. 11. Coarse calcifications in the left breast parenchyma, most likely benign. Clinical correlation recommended with consideration for further evaluation with diagnostic mammography. Medications Medication Current Medications Nitroglycerin/ Dextrose 250 ml @ 12 mls/hr ONCE STAT IV Last administered on 06/11/18at 10:13; Admin Dose 30 MLS/HR; Start 06/11/18 at 09:56; Stop 06/12/18 at 06:45 Aspirin (Halfprin) 81 mg DAILY PO ; Start 06/12/18 at 09:00 Atorvastatin Calcium (Lipitor) 40 mg QHS PO ; Start 06/11/18 at 21:00 Docusate Sodium (Colace) 100 mg TID PO ; Start 06/11/18 at 21:00 Furosemide (Lasix) 40 mg DAILY IV ; Start 06/12/18 at 09:00 Clonidine (Catapres) 0.1 mg Q6H PRN PO for sbp over 160; Start 06/11/18 at 17:30 Zolpidem Tartrate (Ambien) 5 mg HS PRN PO INSOMNIA; Start 06/11/18 at 17:30 Amlodipine Besylate (Norvasc) 5 mg DAILY PO Last administered on 06/11/18at 18:37; Admin Dose 5 MG; Start 06/11/18 at 17:30 Hydralazine HCl (Apresoline) 10 mg Q4H PRN IV sbp>165 Last administered on 06/11/18at 19:48; Admin Dose 10 MG; Start 06/11/18 at 17:30 Carvedilol (Coreg) 3.125 mg BID PO ; Start 06/11/18 at 21:00 Vancomycin HCl (Vanco Iv Per Pharmacy) VANCOMYCIN PER PHARMACY PER PROTOCOL XX ; Start 06/11/18 at 18:30 Diagnostic Test (Pha) (Accu-Chek) 1 ea 02 XX ; Start 06/12/18 at 02:00 Miscellaneous Information 1 ea NOTE XX ; Start 06/11/18 at 21:00 Glucose (Glutose) 15 gm Q15M PRN PO DECREASED GLUCOSE; Start 06/11/18 at 21:00 Glucose (Glutose) 22.5 gm Q15M PRN PO DECREASED GLUCOSE; Start 06/11/18 at 21:00 Dextrose (D50w Syringe) 25 ml Q15M PRN IV DECREASED GLUCOSE; Start 06/11/18 at 21:00 Dextrose (D50w Syringe) 50 ml Q15M PRN IV DECREASED GLUCOSE; Start 06/11/18 at 21:00 Glucagon (Glucagen) 1 mg Q15M PRN IM DECREASED GLUCOSE; Start 06/11/18 at 21:00 Glucose (Glutose) 15 gm Q15M PRN BUCCAL DECREASED GLUCOSE; Start 06/11/18 at 21:00 Insulin Aspart (Novolog Insulin Pen) NOVOLOG *MODERATE* ALGORI... Q4 SC ; Start 06/11/18 at 21:00 Vancomycin HCl 1.75 gm/Sodium Chloride 500 ml @ 125 mls/hr NOW IVPB ; Start 06/11/18 at 22:00; Stop 06/11/18 at 23:59 Vancomycin HCl 250 ml @ 125 mls/hr Q24H IVPB ; Start 06/12/18 at 22:00 JOSÉ FRANZ MD Jun 11, 2018 21:56
[2018-06-11] MEDS: INSULIN ASPART [NOVOLOG] 3 ML PEN SC SCH (21:59)
[2018-06-11] MEDS ORDERED: VANCOMYCIN HCL 1.75 GM in SOD CHLORIDE 0.9% 500 ML IVPB SCH (22:00)
[2018-06-11] MEDS: DOCUSATE SODIUM 100 MG CAP PO SCH (22:02)
[2018-06-11] MEDS: ATORVASTATIN 40 MG TAB PO SCH (22:03)
[2018-06-11] MEDS: HEPARIN 5,000 UNIT/1 ML VIAL SC SCH (23:43)
[2018-06-12] VITALS (31 sets, daily range): BP systolic 100–163; BP diastolic 44–120; PULSE 72–119; RESP 13–26; Ht 162.6 cm; Wt 88.0 kg
[2018-06-12] MEDS: INSULIN ASPART [NOVOLOG] 3 ML PEN SC SCH ×5 (01:34→20:32)
[2018-06-12] MEDS: ACCU-CHEK XX SCH (01:36)
[2018-06-12] MEDS ORDERED: INSULIN ASPART [NOVOLOG] 3 ML PEN SC SCH (07:35)
[2018-06-12] MEDS ORDERED: FUROSEMIDE 40 MG INJ IV SCH (09:00)
[2018-06-12] MEDS: MAGNESIUM OXIDE 400 MG TAB PO SCH ×3 (09:49→22:05)
[2018-06-12] MEDS: DOCUSATE SODIUM 100 MG CAP PO SCH ×3 (09:49→20:26)
[2018-06-12] MEDS: AMLODIPINE 5 MG TAB PO SCH (09:49)
[2018-06-12] MEDS: LORAZEPAM 2 MG INJ IV PRN ×2 (09:50→15:23)
[2018-06-12] MEDS: ASPIRIN (EC) 81 MG TAB PO SCH (09:50)
[2018-06-12] MEDS: HEPARIN 5,000 UNIT/1 ML VIAL SC SCH (10:34)
--- NOTE | 2018-06-12 10:52 | CONS ---
DATE OF ADMISSION: 06/11/2018 DATE OF CONSULTATION: 06/12/2018 TYPE OF CONSULTATION: Pulmonary. REASON FOR CONSULTATION: Shortness of breath. Thank you, Dr. Tejeda for this consultation. HISTORY OF PRESENT ILLNESS: This is a pleasant 82-year-old lady who presents with several-day histor y of increasing shortness of breath, orthopnea, PND with severe hypertension and increasing confusion . Chest x-ray showed severe pulmonary edema. The patient was given nitro drip and bilevel ventilati on. Respiratory status has subsequently improved. She is now on nasal cannula O2. PAST MEDICAL HISTORY: Coronary artery disease status post coronary artery bypass graft surgery, diab etes type 2, chronic kidney disease, history of CA kidney status post left partial nephrectomy, chron ic anemia. MEDICATIONS: Per chart. ALLERGIES: NONE. SOCIAL HISTORY: Nonsmoker, no alcohol, no history of drug use. FAMILY HISTORY: Noncontributory. PHYSICAL EXAMINATION: GENERAL: Well-nourished, well-developed lady, appears comfortable at rest, talking in full and compl ete sentences. VITAL SIGNS: Currently afebrile, pulse is 76, blood pressure 132/89, O2 saturation 96% on 4 liters n yomi cannula. NECK: Supple. No JVD or lymphadenopathy. CARDIAC: S1, S2, no added sounds or murmurs. CHEST: Diminished air entry bilaterally with rales. ABDOMEN: Soft, nontender. No guarding or rebound. EXTREMITIES: No cyanosis, clubbing, lumps, edema. NEUROLOGIC: Generalized weakness. No focal deficits. LABORATORIES: White count 12.5, hemoglobin 11.8. Chemistry: BUN 39, creatinine 1.42. Troponin leana vated at 107. IMPRESSION: 1. Hypertensive urgency. 2. Acute congestive cardiac failure. 3. History of coronary artery disease. PLAN: The patient will require: 1. Continue diuretics. 2. Supplemental O2. 3. Consider de-escalation of antibiotics soon. 4. DVT and GI prophylaxis. 5. Outpatient pulmonary function testing. Dictated By: PÉREZ MAN MD SV/NTS Conf#: [id number] DID#: [id number] CC: ERIK CHILDERS MD; NUBIA TEJEDA MD;*EndCC*
[2018-06-12] MEDS ORDERED: LORAZEPAM 2 MG INJ IV PRN (13:00)
--- NOTE | 2018-06-12 14:06 | RADRPT ---
Vent Rate: 88 bpm RR Interval: 0 msec [place] Interval: 0 msec QRS Duration: 92 msec QT Interval: 342 msec QTC Interval: 413 msec P-R-T [place]: 0 - -6 - 0 degrees Atrial fibrillation with premature ventricular or aberrantly conducted complexes ST & T wave abnormality, consider inferolateral ischemia or digitalis effect Abnormal ECG Electronically Signed By: Zeeshan Turpin
[2018-06-12] MEDS ORDERED: MAGNESIUM SULFATE 3 GM in DEXTROSE 5% 100 ML IVPB ONE (15:00)
[2018-06-12] MEDS ORDERED: FUROSEMIDE 20 MG INJ IV ONE (15:00)
--- NOTE | 2018-06-12 15:14 | CONS ---
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 Patient planned for MR abdomen. I did discuss with radiologist, for better evaluation of the mass in the IVC, he recommended an MR venogram which has been ordered. -Patient also with paroxysmal atrial fibrillation overnight. CT head with evidence of chronic infarcts. I will start IV heparin without a bolus. -Patient still with crackles on lung examination, will give 1 additional dose of Lasix. I did ask the nurse to lie the patient flat to see how she would tolerate given she would need to be flat for the MR study. If she becomes dyspneic or any hypoxia, would hold off on MR at the current time. -Of note, venous Doppler is negative for DVT -Patient has been titrated off IV nitroglycerin and is currently on oral antihypertensive meds -A.M. troponin minimally elevated, this is likely secondary to decompensated congestive heart failure. We will continue beta-sarah, aspirin and statin therapy. No VAL inhibitor at the current time given renal dysfunction. -Given hypomagnesemia, I have ordered IV magnesium supplementation Consultation Date/Type/Reason Admit Date/Time Jun 11, 2018 at 11:29 Initial Consult Date 06/11/18 Type of Consult Cardiology Requesting Provider: NUBIA TEJEDA MD Date/Time of Note DATE: 06/12/18 TIME: 15:08 24 HR Interval Summary Free Text/Dictation Shortness of breath is better. Denies chest pain, palpitations Exam/Review of Systems Vital Signs Vitals Vital Signs Date Temp Pulse Resp B/P (MAP) Pulse Ox O2 O2 Flow FiO2 Time Delivery Rate 06/12/18 85 12:00 06/12/18 4.0 09:49 06/12/18 98.4 18 132/89 100 Nasal 08:00 (103) Cannula 06/11/18 40 11:31 Intake and Output 06/11/18 06/11/18 06/12/18 1515:00 23:00 07:00 IntakeIntake Total 100 ml 500 ml OutputOutput Total 1150 ml 710 ml BalanceBalance -1050 ml -210 ml Exam Constitutional: alert, oriented (No apparent distress) Respiratory: other (Coarse breath sounds bilaterally, mild scattered crackles) Cardiovascular: regular rate and rhythm (S1-S2 heard) Gastrointestinal: soft, non-tender, bowel sounds Extremities: edema Labs Result Diagram: 06/12/18 0439 06/12/18 0439 Results 24hrs Laboratory Tests Test 06/11/18 15:26 06/11/18 17:04 06/11/18 19:45 06/12/18 01:31 Lactic Acid Level 2.7 *H 2.1 *H Bedside Glucose 450 *H 291 H Test 06/12/18 04:39 06/12/18 05:05 06/12/18 08:07 06/12/18 12:49 White Blood Count 12.5 H Red Blood Count 4.23 Hemoglobin 11.8 L Hematocrit 37.1 Mean Corpuscular 87.7 Volume Mean Corpuscular 27.9 L Hemoglobin Mean Corpuscular 31.8 L Hemoglobin Concent Red Cell 13.2 Distribution Width Platelet Count 278 Mean Platelet Volume 11.7 H Immature 0.300 Granulocytes % Neutrophils % 73.9 Lymphocytes % 15.2 Monocytes % 8.5 Eosinophils % 1.7 Basophils % 0.4 Nucleated Red Blood 0.0 Cells % Immature 0.040 H Granulocytes # Neutrophils # 9.2 H Lymphocytes # 1.9 Monocytes # 1.1 H Eosinophils # 0.2 Basophils # 0.1 Nucleated Red Blood 0.0 Cells # Sodium Level 144 Potassium Level 3.8 Chloride Level 105 Carbon Dioxide Level 31 Anion Gap 8 Blood Urea Nitrogen 39 H Creatinine 1.42 H Est Glomerular Filtrat Rate mL/min Glucose Level 171 # Calcium Level 10.0 Magnesium Level 1.3 L Lactate 429 Dehydrogenase Bedside Glucose 151 283 H Troponin I 0.171 *H Medications Medications Current Medications Aspirin (Halfprin) 81 mg DAILY PO Last administered on 06/12/18at 09:50; Admin Dose 81 MG; Start 06/12/18 at 09:00 Atorvastatin Calcium (Lipitor) 40 mg QHS PO Last administered on 06/11/18at 22:03; Admin Dose 40 MG; Start 06/11/18 at 21:00 Docusate Sodium (Colace) 100 mg TID PO Last administered on 06/12/18 13:16; Admin Dose 100 MG; Start 06/11/18 at 21:00 Furosemide (Lasix) 40 mg DAILY IV Last administered on 06/12/18at 09:49; Admin Dose 40 MG; Start 06/12/18 at 09:00 Clonidine (Catapres) 0.1 mg Q6H PRN PO for sbp over 160; Start 06/11/18 at 17:30 Zolpidem Tartrate (Ambien) 5 mg HS PRN PO INSOMNIA Last administered on 06/11/18at 22:11; Admin Dose 5 MG; Start 06/11/18 at 17:30 Amlodipine Besylate (Norvasc) 5 mg DAILY PO Last administered on 06/12/18 09:49; Admin Dose 5 MG; Start 06/11/18 at 17:30 Hydralazine HCl (Apresoline) 10 mg Q4H PRN IV sbp>165 Last administered on 06/11/18at 19:48; Admin Dose 10 MG; Start 06/11/18 at 17:30 Carvedilol (Coreg) 3.125 mg BID PO Last administered on 06/12/18 09:50; Admin Dose 3.125 MG; Start 06/11/18 at 21:00 Vancomycin HCl (Vanco Iv Per Pharmacy) VANCOMYCIN PER PHARMACY PER PROTOCOL XX ; Start 06/11/18 at 18:30 Diagnostic Test (Pha) (Accu-Chek) 1 ea 02 XX Last administered on 06/12/18at 01:36; Admin Dose 1 EA; Start 06/12/18 at 02:00 Miscellaneous Information 1 ea NOTE XX ; Start 06/11/18 at 21:00 Glucose (Glutose) 15 gm Q15M PRN PO DECREASED GLUCOSE; Start 06/11/18 at 21:00 Glucose (Glutose) 22.5 gm Q15M PRN PO DECREASED GLUCOSE; Start 06/11/18 at 21:00 Dextrose (D50w Syringe) 25 ml Q15M PRN IV DECREASED GLUCOSE; Start 06/11/18 at 21:00 Dextrose (D50w Syringe) 50 ml Q15M PRN IV DECREASED GLUCOSE; Start 06/11/18 at 21:00 Glucagon (Glucagen) 1 mg Q15M PRN IM DECREASED GLUCOSE; Start 06/11/18 at 21:00 Glucose (Glutose) 15 gm Q15M PRN BUCCAL DECREASED GLUCOSE; Start 06/11/18 at 21:00 Vancomycin HCl 250 ml @ 125 mls/hr Q24H IVPB ; Start 06/12/18 at 22:00 Magnesium Oxide (Mag-Ox 400) 500 mg TID PO Last administered on 06/12/18at 13:16; Admin Dose 500 MG; Start 06/12/18 at 09:00 Insulin Aspart (Novolog Insulin Pen) NOVOLOG *MODERATE* ALGORITHM WITH MEALS BEDTIME SC Last administered on 06/12/18at 12:54; Admin Dose 8 UNIT; Start 06/12/18 at 11:30 Lorazepam (Ativan) 1 mg ONCE PRN IV 30 MINUTES PRIOR TO MRI Last administered on 06/12/18at 09:50; Admin Dose 1 MG; Start 06/12/18 at 08:30; Stop 06/13/18 at 08:29 Lorazepam (Ativan) 1 mg ONCE PRN IV 30 MINUTES PRIOR TO MRI; Start 06/12/18 at 13:00; Stop 06/13/18 at 12:59 Magnesium Sulfate 3 gm/Dextrose 106 ml @ 35.333 mls/ hr ONCE ONCE IVPB ; Start 06/12/18 at 15:00; Stop 06/12/18 at 17:59 Miscellaneous Information (* Miscellaneous Pharmacy Order) DC previous hepa... ONCE ONCE XX ; Start 06/12/18 at 15:30; Stop 06/12/18 at 15:31; Status UNV Heparin Sodium (Porcine) (Heparin (1000 Units/ml)) 4,000 unit PER PROTOCOL PRN IV aPTT<47; Start 06/12/18 at 15:30; Status UNV Heparin Sodium (Porcine) 250 ml @ 0 mls/hr PER PROTOCOL IV ; Start 06/12/18 at 15:30; Status UNV Alex Chávez DO Jun 12, 2018 15:14
[2018-06-12] MEDS ORDERED: HEPARIN 25000 UNITS/250 ML 250 ML IV SCH (15:30)
--- NOTE | 2018-06-12 18:16 | CONS ---
Assessment/Plan Assessment/Plan Hospital Course (Demo Recall) 82-year-old female came into the emergency room with acute shortness of breath and discomfort over the chest. The patient has been having elevated blood pressure in the 160s over 90s for 1 week and she was very confused. She says she was very forgetful forgetting phone numbers of her children and not feeling right. She was complaining of some heaviness in the head and checking blood pressure which was elevated multiple times. She was taking her medications and she thought it would go away. 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 Upon presentation she underwent CT scan of the abdomen and pelvis and that showed: 1. The IVC is focally distended at the inferior cavoatrial junction, containing an 8 mm metallic focus which may lie within intravenous tumor mass. Evaluation is quite limited in the absence of intravenous contrast. 2. Status post left renal lower pole partial nephrectomy with focally prominent 2.7 cm soft tissue lobulation in the inferior left renal lower pole adjacent to surgical clips, possibly reflecting postsurgical change or recurrent neoplasm. Clinical correlation recommended with consideration for further evaluation with renal protocol multi phase enhanced CT or MRI. 3. Punctate nonobstructive bilateral nephrolithiasis without hydronephrosis. 4. Small - moderate bilateral pleural effusions, worse on the right. 5. Aortic and mitral valve calcifications may reflect valvular stenosis, without sakina cardiomegaly. Coronary artery calcifications. Partially visualized post st ernotomy changes. Atherosclerosis. 6. Cholelithiasis versus sludge in the moderately distended gallbladder without sakina evidence of acute cholecystitis. This can be better evaluated with right upper quadrant ultrasound if clinically warranted. 7. 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 Minimal left colonic diverticulosis without evidence of acute diverticulitis. The bowel is unobstructed without evidence of perforation or abscess, and the appendix appears normal. 8. Status post midline infraumbilical ventral abdominal hernia mesh repair with tiny residual or recurrent alecia-incisional hernia noted at the inferior aspect. 9. Minimal chronic degenerative L5-S1 grade 1 anterolisthesis. 10. Multilevel spondylotic changes appear most pronounced at L4-5 and L5-S1, where there is moderate - severe canal and neural foraminal stenosis. This can be better evaluated by MRI L-spine if clinically warranted. 11. Coarse calcifications in the left breast parenchyma, most likely benign. Clinical correlation recommended with consideration for further evaluation with diagnostic mammography MRI of the abdomen and pelvis was just done but still pending the report. Her blood culture did grow :BLOOD CULTURE Preliminary BCULT GRAM BOTTLE 1 Gram positive cocci in pairs . seen on gram stain of the broth Organism 1 GRAM POS COCCI IN PAIR,CLUSTER Urologically for now will observe and await the results of the MRI. Consultation Date/Type/Reason Admit Date/Time Jun 11, 2018 at 11:29 Date of Consultation: Jun 12, 2018 Type of Consult Urology Reason for Consultation History of left renal tumor, status post left partial nephrectomy done in 2007. Possible tumor recurrence. Requesting Provider: NUBIA TEJEDA MD Date/Time of Note DATE: 06/12/18 TIME: 18:02 Hx of Present Illness 82-year-old female came into the emergency room with acute shortness of breath and discomfort over the chest. The patient has been having elevated blood pressure in the 160s over 90s for 1 week and she was very confused. She says she was very forgetful forgetting phone numbers of her children and not feeling right. She was complaining of some heaviness in the head and checking blood pressure which was elevated multiple times. She was taking her medications and she thought it would go away. 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 Upon presentation she underwent CT scan of the abdomen and pelvis and that showed: 1. The IVC is focally distended at the inferior cavoatrial junction, containing an 8 mm metallic focus which may lie within intravenous tumor mass. Evaluation is quite limited in the absence of intravenous contrast. 2. Status post left renal lower pole partial nephrectomy with focally prominent 2.7 cm soft tissue lobulation in the inferior left renal lower pole adjacent to surgical clips, possibly reflecting postsurgical change or recurrent neoplasm. Clinical correlation recommended with consideration for further evaluation with renal protocol multi phase enhanced CT or MRI. 3. Punctate nonobstructive bilateral nephrolithiasis without hydronephrosis. 4. Small - moderate bilateral pleural effusions, worse on the right. 5. Aortic and mitral valve calcifications may reflect valvular stenosis, without sakina cardiomegaly. Coronary artery calcifications. Partially visualized post sternotomy changes. Atherosclerosis. 6. Cholelithiasis versus sludge in the moderately distended gallbladder without sakina evidence of acute cholecystitis. This can be better evaluated with right upper quadrant ultrasound if clinically warranted. 7. 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 Minimal left colonic diverticulosis without evidence of acute diverticulitis. The bowel is unobstructed without evidence of perforation or abscess, and the appendix appears normal. 8. Status post midline infraumbilical ventral abdominal hernia mesh repair with tiny residual or recurrent alecia-incisional hernia noted at the inferior aspect. 9. Minimal chronic degenerative L5-S1 grade 1 anterolisthesis. 10. Multilevel spondylotic changes appear most pronounced at L4-5 and L5-S1, where there is moderate - severe canal and neural foraminal stenosis. This can be better evaluated by MRI L-spine if clinically warranted. 11. Coarse calcifications in the left breast parenchyma, most likely benign. Clinical correlation recommended with consideration for further evaluation with diagnostic mammography Constitutional: no complaints Eyes: no complaints ENT: no complaints Respiratory: shortness of breath Cardiovascular: No chest pain Gastrointestinal: no complaints; No nausea, No vomiting Genitourinary: no complaints; No dysuria Musculoskeletal: no complaints Skin: no complaints Neurologic: headache Endocrine: no complaints Lymphatic: no complaints Past Medical History Medical History: diabetes, high cholesterol, hypertension Home Meds Reported Medications Dulaglutide (Trulicity) 0.75 Mg/0.5 Ml Pen.injctr, 1.75 MG SQ WEEKLY 06/11/18 Insulin Glargine,Hum.rec.anlog (Basaglar Kwikpen U-100) 100 Unit/1 Ml Insuln.pen, 30 UNIT SC DAILY, EA 06/11/18 Ergocalciferol (Vitamin D2) (VITAMIN D2) 2,000 Unit Tablet, 2000 UNIT PO DAILY, TAB 06/11/18 Alendronate Sodium* (Fosamax*) 70 Mg Tablet, 70 MG PO Q7D, #4 TAB 06/11/18 Alendronate Sodium* (Fosamax*) 70 Mg Tablet, 70 MG PO Q7D, #4 TAB 06/11/18 Atenolol* (Atenolol*) 25 Mg Tablet, 25 MG PO BID, #60 TAB 06/11/18 Ferrous Sulfate (Ferrous Sulfate) 325 Mg Tablet.dr, 325 MG PO DAILY 06/11/18 Aspirin* (Aspirin* EC) 81 Mg Tablet.dr, 81 MG PO DAILY, TAB 06/11/18 Empagliflozin (Jardiance) 10 Mg Tablet, 10 MG PO DAILY, TAB 06/11/18 Esomeprazole Mag Trihydrate (Nexium) 20 Mg Capsule.dr, 20 MG PO AC BREAKFAST, #30 CAP 06/11/18 Gabapentin* (Gabapentin*) 100 Mg Capsule, 100 MG PO QHS, #90 CAP 06/11/18 Meloxicam* (Meloxicam*) 7.5 Mg Tablet, 7.5 MG PO DAILY, #30 TAB 06/11/18 Calcium Carbonate/Vitamin D3 (OYSTER SHELL 500 MG + VIT D TB) 1 Each Tablet, 1 EACH PO BID, TAB 06/11/18 Docusate Sodium* (Colace*) 100 Mg Capsule, 100 MG PO TID, #60 CAP 06/11/18 Metformin* (Glucophage*) 500 Mg Tab, 500 MG PO BID, #90 TAB 06/11/18 Atorvastatin* (Atorvastatin*) 40 Mg Tablet, 40 MG PO QHS, #30 TAB 06/11/18 Allopurinol* (Allopurinol*) 100 Mg Tablet, 100 MG PO BID, TAB 06/11/18 Medications Current Medications Aspirin (Halfprin) 81 mg DAILY PO Last administered on 06/12/18at 09:50; Admin Dose 81 MG; Start 06/12/18 at 09:00 Atorvastatin Calcium (Lipitor) 40 mg QHS PO Last administered on 06/11/18at 22:03; Admin Dose 40 MG; Start 06/11/18 at 21:00 Docusate Sodium (Colace) 100 mg TID PO Last administered on 06/12/18at 13:16; Admin Dose 100 MG; Start 06/11/18 at 21:00 Furosemide (Lasix) 40 mg DAILY IV Last administered on 06/12/18at 09:49; Admin Dose 40 MG; Start 06/12/18 at 09:00 Clonidine (Catapres) 0.1 mg Q6H PRN PO for sbp over 160; Start 06/11/18 at 17:30 Zolpidem Tartrate (Ambien) 5 mg HS PRN PO INSOMNIA Last administered on 06/11/18at 22:11; Admin Dose 5 MG; Start 06/11/18 at 17:30 Amlodipine Besylate (Norvasc) 5 mg DAILY PO Last administered on 06/12/18at 09:49; Admin Dose 5 MG; Start 06/11/18 at 17:30 Hydralazine HCl (Apresoline) 10 mg Q4H PRN IV sbp>165 Last administered on 06/11/18at 19:48; Admin Dose 10 MG; Start 06/11/18 at 17:30 Carvedilol (Coreg) 3.125 mg BID PO Last administered on 06/12/18at 09:50; Admin Dose 3.125 MG; Start 06/11/18 at 21:00 Vancomycin HCl (Vanco Iv Per Pharmacy) VANCOMYCIN PER PHARMACY PER PROTOCOL XX ; Start 06/11/18 at 18:30 Diagnostic Test (Pha) (Accu-Chek) 1 ea 02 XX Last administered on 06/12/18at 01:36; Admin Dose 1 EA; Start 06/12/18 at 02:00 Miscellaneous Information 1 ea NOTE XX ; Start 06/11/18 at 21:00 Glucose (Glutose) 15 gm Q15M PRN PO DECREASED GLUCOSE; Start 06/11/18 at 21:00 Glucose (Glutose) 22.5 gm Q15M PRN PO DECREASED GLUCOSE; Start 06/11/18 at 21:00 Dextrose (D50w Syringe) 25 ml Q15M PRN IV DECREASED GLUCOSE; Start 06/11/18 at 21:00 Dextrose (D50w Syringe) 50 ml Q15M PRN IV DECREASED GLUCOSE; Start 06/11/18 at 21:00 Glucagon (Glucagen) 1 mg Q15M PRN IM DECREASED GLUCOSE; Start 06/11/18 at 21:00 Glucose (Glutose) 15 gm Q15M PRN BUCCAL DECREASED GLUCOSE; Start 06/11/18 at 21:00 Vancomycin HCl 250 ml @ 125 mls/hr Q24H IVPB ; Start 06/12/18 at 22:00 Magnesium Oxide (Mag-Ox 400) 500 mg TID PO Last administered on 06/12/18at 13:16; Admin Dose 500 MG; Start 06/12/18 at 09:00 Insulin Aspart (Novolog Insulin Pen) NOVOLOG *MODERATE* ALGORITHM WITH MEALS BEDTIME SC Last administered on 06/12/18at 17:56; Admin Dose 6 UNIT; Start 06/12/18 at 11:30 Lorazepam (Ativan) 1 mg ONCE PRN IV 30 MINUTES PRIOR TO MRI Last administered on 06/12/18at 15:23; Admin Dose 1 MG; Start 06/12/18 at 08:30; Stop 06/13/18 at 08:29 Lorazepam (Ativan) 1 mg ONCE PRN IV 30 MINUTES PRIOR TO MRI; Start 06/12/18 at 13:00; Stop 06/13/18 at 12:59 Heparin Sodium (Porcine) (Heparin (1000 Units/ml)) 4,000 unit PER PROTOCOL PRN IV aPTT<47; Start 06/12/18 at 15:30 Heparin Sodium (Porcine) 250 ml @ 0 mls/hr PER PROTOCOL IV ; Start 06/12/18 at 15:30 Allergies: Coded Allergies: No Known Allergies (Verified Allergy, Unknown, 06/11/18) Past Surgical History Past Surgical Hx: coronary bypass surgery, other (Partial left nephrectomy approximately 10 years ago) Social History Alcohol Use: none Smoking Status: Never smoker Drug Use: none Exam/Review of Systems Exam Vitals Vital Signs Date Temp Pulse Resp B/P (MAP) Pulse Ox O2 O2 Flow FiO2 Time Delivery Rate 06/12/18 77 16:00 06/12/18 98.2 25 146/73 98 Nasal 16:00 (97) Cannula 06/12/18 4.0 09:49 06/11/18 40 11:31 Intake and Output 06/11/18 06/11/18 06/12/18 1515:00 23:00 07:00 IntakeIntake Total 100 ml 500 ml OutputOutput Total 1150 ml 710 ml BalanceBalance -1050 ml -210 ml Constitutional: alert Psych: no complaints Head: normocephalic Eyes: nl conjunctiva ENMT: nl external ears & nose Neck: supple, non-tender Respiratory: normal air movement; No wheezing Cardiovascular: regular rate and rhythm; No jugular venous distention (JVD) Gastrointestinal: soft (And obese), other (No mass palpable) Genitourinary - Female: other (Odonnell catheter draining clear urine); No CVA tenderness Musculoskeletal: nl extremities to inspection Extremities: No calf tenderness Neurological: nl mental status Skin: nl turgor Results Result Diagram: 06/12/18 1520 06/12/18 0439 Results 24hrs Laboratory Tests Test 06/11/18 19:45 06/12/18 01:31 06/12/18 04:39 06/12/18 05:05 Bedside Glucose 450 *H 291 H 151 White Blood Count 12.5 H Red Blood Count 4.23 Hemoglobin 11.8 L Hematocrit 37.1 Mean Corpuscular 87.7 Volume Mean Corpuscular 27.9 L Hemoglobin Mean Corpuscular 31.8 L Hemoglobin Concent Red Cell 13.2 Distribution Width Platelet Count 278 Mean Platelet Volume 11.7 H Immature 0.300 Granulocytes % Neutrophils % 73.9 Lymphocytes % 15.2 Monocytes % 8.5 Eosinophils % 1.7 Basophils % 0.4 Nucleated Red Blood 0.0 Cells % Immature 0.040 H Granulocytes # Neutrophils # 9.2 H Lymphocytes # 1.9 Monocytes # 1.1 H Eosinophils # 0.2 Basophils # 0.1 Nucleated Red Blood 0.0 Cells # Sodium Level 144 Potassium Level 3.8 Chloride Level 105 Carbon Dioxide Level 31 Anion Gap 8 Blood Urea Nitrogen 39 H Creatinine 1.42 H Est Glomerular Filtrat Rate mL/min Glucose Level 171 # Calcium Level 10.0 Magnesium Level 1.3 L Lactate 429 Dehydrogenase Test 06/12/18 08:07 06/12/18 12:49 06/12/18 15:20 06/12/18 17:45 Troponin I 0.171 *H Bedside Glucose 283 H 252 H White Blood Count 13.1 H Red Blood Count 4.40 Hemoglobin 12.4 Hematocrit 38.9 Mean Corpuscular 88.4 Volume Mean Corpuscular 28.2 L Hemoglobin Mean Corpuscular 31.9 L Hemoglobin Concent Red Cell 13.2 Distribution Width Platelet Count 253 Mean Platelet Volume 11.6 H Immature 0.400 Granulocytes % Neutrophils % 76.4 Lymphocytes % 12.0 L Monocytes % 6.6 Eosinophils % 4.1 Basophils % 0.5 Nucleated Red Blood 0.0 Cells % Immature 0.050 H Granulocytes # Neutrophils # 10.0 H Lymphocytes # 1.6 Monocytes # 0.9 Eosinophils # 0.5 Basophils # 0.1 Nucleated Red Blood 0.0 Cells # Prothrombin Time 12.4 Prothrombin Time 1.0 Ratio INR International 0.91 Normalized Ratio Activated 24.5 Partial Thromboplast Time Imaging Imaging CT scan of the abdomen and pelvis showed: 1. The IVC is focally distended at the inferior cavoatrial junction, containing an 8 mm metallic focus which may lie within intravenous tumor mass. Evaluation is quite limited in the absence of intravenous contrast. 2. Status post left renal lower pole partial nephrectomy with focally prominent 2.7 cm soft tissue lobulation in the inferior left renal lower pole adjacent to surgical clips, possibly reflecting postsurgical change or recurrent neoplasm. Clinical correlation recommended with consideration for further evaluation with renal protocol multi phase enhanced CT or MRI. 3. Punctate nonobstructive bilateral nephrolithiasis without hydronephrosis. 4. Small - moderate bilateral pleural effusions, worse on the right. 5. Aortic and mitral valve calcifications may reflect valvular stenosis, without sakina cardiomegaly. Coronary artery calcifications. Partially visualized post sternotomy changes. Atherosclerosis. 6. Cholelithiasis versus sludge in the moderately distended gallbladder without sakina evidence of acute cholecystitis. This can be better evaluated with right upper quadrant ultrasound if clinically warranted. 7. 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 Minimal left colonic diverticulosis without evidence of acute diverticulitis. The bowel is unobstructed without evidence of perforation or abscess, and the appendix appears normal. 8. Status post midline infraumbilical ventral abdominal hernia mesh repair with tiny residual or recurrent alecia-incisional hernia noted at the inferior aspect. 9. Minimal chronic degenerative L5-S1 grade 1 anterolisthesis. 10. Multilevel spondylotic changes appear most pronounced at L4-5 and L5-S1, where there is moderate - severe canal and neural foraminal stenosis. This can be better evaluated by MRI L-spine if clinically warranted. 11. Coarse calcifications in the left breast parenchyma, most likely benign. Clinical correlation recommended with consideration for further evaluation with diagnostic mammography CT of the brain without contrast: Atrophy. White matter disease compatible with chronic small vessel ischemia. Chronic lacunar infarct right caudate nucleus. 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 No intracranial hemorrhage, mass or evidence of acute transcortical infarct. The patient had an MRI of the abdomen and the result is pending Medications Medication Current Medications Aspirin (Halfprin) 81 mg DAILY PO Last administered on 06/12/18 09:50; Admin Dose 81 MG; Start 06/12/18 at 09:00 Atorvastatin Calcium (Lipitor) 40 mg QHS PO Last administered on 06/11/18 22:03; Admin Dose 40 MG; Start 06/11/18 at 21:00 Docusate Sodium (Colace) 100 mg TID PO Last administered on 06/12/18 13:16; Admin Dose 100 MG; Start 06/11/18 at 21:00 Furosemide (Lasix) 40 mg DAILY IV Last administered on 06/12/18 09:49; Admin Dose 40 MG; Start 06/12/18 at 09:00 Clonidine (Catapres) 0.1 mg Q6H PRN PO for sbp over 160; Start 06/11/18 at 17:30 Zolpidem Tartrate (Ambien) 5 mg HS PRN PO INSOMNIA Last administered on 06/11/18at 22:11; Admin Dose 5 MG; Start 06/11/18 at 17:30 Amlodipine Besylate (Norvasc) 5 mg DAILY PO Last administered on 06/12/18at 09:49; Admin Dose 5 MG; Start 06/11/18 at 17:30 Hydralazine HCl (Apresoline) 10 mg Q4H PRN IV sbp>165 Last administered on 06/11/18at 19:48; Admin Dose 10 MG; Start 06/11/18 at 17:30 Carvedilol (Coreg) 3.125 mg BID PO Last administered on 06/12/18at 09:50; Admin Dose 3.125 MG; Start 06/11/18 at 21:00 Vancomycin HCl (Vanco Iv Per Pharmacy) VANCOMYCIN PER PHARMACY PER PROTOCOL XX ; Start 06/11/18 at 18:30 Diagnostic Test (Pha) (Accu-Chek) 1 ea 02 XX Last administered on 06/12/18at 01:36; Admin Dose 1 EA; Start 06/12/18 at 02:00 Miscellaneous Information 1 ea NOTE XX ; Start 06/11/18 at 21:00 Glucose (Glutose) 15 gm Q15M PRN PO DECREASED GLUCOSE; Start 06/11/18 at 21:00 Glucose (Glutose) 22.5 gm Q15M PRN PO DECREASED GLUCOSE; Start 06/11/18 at 21:00 Dextrose (D50w Syringe) 25 ml Q15M PRN IV DECREASED GLUCOSE; Start 06/11/18 at 21:00 Dextrose (D50w Syringe) 50 ml Q15M PRN IV DECREASED GLUCOSE; Start 06/11/18 at 21:00 Glucagon (Glucagen) 1 mg Q15M PRN IM DECREASED GLUCOSE; Start 06/11/18 at 21:00 Glucose (Glutose) 15 gm Q15M PRN BUCCAL DECREASED GLUCOSE; Start 06/11/18 at 21:00 Vancomycin HCl 250 ml @ 125 mls/hr Q24H IVPB ; Start 06/12/18 at 22:00 Magnesium Oxide (Mag-Ox 400) 500 mg TID PO Last administered on 06/12/18at 13:16; Admin Dose 500 MG; Start 06/12/18 at 09:00 Insulin Aspart (Novolog Insulin Pen) NOVOLOG *MODERATE* ALGORITHM WITH MEALS BEDTIME SC Last administered on 06/12/18at 17:56; Admin Dose 6 UNIT; Start 06/12/18 at 11:30 Lorazepam (Ativan) 1 mg ONCE PRN IV 30 MINUTES PRIOR TO MRI Last administered on 06/12/18at 15:23; Admin Dose 1 MG; Start 06/12/18 at 08:30; Stop 06/13/18 at 08:29 Lorazepam (Ativan) 1 mg ONCE PRN IV 30 MINUTES PRIOR TO MRI; Start 06/12/18 at 13:00; Stop 06/13/18 at 12:59 Heparin Sodium (Porcine) (Heparin (1000 Units/ml)) 4,000 unit PER PROTOCOL PRN IV aPTT<47; Start 06/12/18 at 15:30 Heparin Sodium (Porcine) 250 ml @ 0 mls/hr PER PROTOCOL IV ; Start 06/12/18 at 15:30 ERIK CHILDERS MD Jun 12, 2018 18:13
[2018-06-12] MEDS: HEPARIN 25000 UNITS/250 ML 250 ML IV SCH (18:24)
--- NOTE | 2018-06-12 20:23 | PN ---
DATE: 06/12/2018 SUBJECTIVE: The patient was seen. I saw the patient early in the morning after admission to the ICU . The patient is in ICU still on nitro drip and she is on nasal cannula oxygen 5 liters. The patien t overnight was constantly in and out of atrial fibrillation with sustained rate of 90 to 100. Blood pressure 146/73, heart rate 97, respiratory rate 20, she is afebrile at this time as I said nasal ca nnula, saturating 98%. The patient was admitted for acute shortness of breath and discomfort over th e chest. She was admitted for increasing shortness of breath, also confused, very lethargic and feel ing lightheaded. Those are the reasons the patient was admitted. Today, the patient denies of any c hest pain, breathing much better according to her and decrease in shortness of breath, decrease in pa lpitations; overall feels better. PAST MEDICAL HISTORY: As I mentioned earlier, the patient has history of atherosclerotic vascular di sease, insulin-dependent diabetes mellitus, gastroesophageal reflux disease, history of renal cancer over 8 years ago for which she has had surgery, history of unstable gait, osteoarthritis, osteoporosi s, hypertension. FAMILY HISTORY: She denies of any family history at this time. REVIEW OF SYSTEMS: At this time, the patient is much more comfortable, has palpitations and discomfo rt over the chest and shortness of breath, but better compared to yesterday. She denies of any abdom inal pain, nausea, vomiting. Denies of any hesitancy, urgency or pain during urination. She denies of any numbness of one side more than the other. She denies any rectal bleed, cough or bleeding of a ny site. PHYSICAL EXAMINATION: HEENT: Head is atraumatic, normocephalic. Pupils are equal and reactive to light. Extraocular musc les are intact. Nares are clear. No obstruction. No deviation of septum. Oral cavity: Normal ora l hygiene. Ear canals are clear. No signs of inflammation or infection. Tympanic membrane is intac t. NECK: Supple. No JVD. No surgical scars. No lymph nodes palpable over the neck. CHEST: AP contour is within normal limits. BREASTS: Nipples are normal. No nipple retraction. HEART: S1, S2. Regular rate and rhythm with cardiomegaly and systolic murmur over the apex. LUNGS: Scattered rhonchi and crackles over the bases of the lungs. ABDOMEN: Soft. Positive bowel sounds. No hepatosplenomegaly. No masses palpable over the abdomen and no rebound tenderness. EXTREMITIES: Plus/minus edema of the lower extremities. NEUROLOGIC: Cranial nerves II through XII are completely intact. No focal deficits. LABORATORY DATA: Today, white count is 13,000, hemoglobin is 12.4, hematocrit 38.9 and platelet coun t 253. Chemistry: Sodium is 144, potassium is 3.8, BUN 39, creatinine 1.42, glucose is elevated in the 400s. Lactic acid 2.1 yesterday and today 1.3. Blood culture is positive today of gram-positive cocci. DIAGNOSTIC DATA: CT head was done last night which is negative for acute bleed. CT head has white m atter disease compatible with chronic small vessel ischemia, chronic lacunar infarcts in right caudat e nucleus, chronic infarcts in the left caudate nucleus, left internal capsule and left basal ganglia . No intracranial hemorrhage, mass or evidence of acute transcortical infarct. Chest x-ray shows mi ld cardiomegaly with pulmonary vascular congestion. CT abdomen and pelvis shows an IVC is focally di stended at the inferior cavoatrial junction containing 8 mm metallic focus which may lie within intra venous tumor mass. Evaluation is quite limited in the absence of intravenous contrast, status post r enal lower pole partial nephrectomy with focally prominent 2.7 cm soft tissue lobulation in the infer ior left renal lower pole adjacent to the surgical clips, possibly reflecting postsurgical change or recurrent neoplasm. She also has nonobstructive bilateral nephrolithiasis without hydronephrosis, sm all bilateral pleural effusions, aortic valve calcification, cholelithiasis versus sludge in the gall bladder, has 11 mm left adrenal adenoma and ventral hernia, also has chronic degenerative disk diseas e over the L5 to S1 area with multilevel spondylotic changes over the L4 to S1 area. Also, it shows coarse calcification in the left breast parenchyma most likely benign. ASSESSMENT AND PLAN: I had a long discussion with the patient's son and the [id number] cassie baez the possibility of tumor in the heart and the cause for her on and off atrial fibrillation and lacie estive heart failure and also I discussed with the sap basis and Dr. Martel. Plan at this time will be to get an MRI of the chest for staging purposes and diagnostic purposes of the tumor. DIAGNOSES: At this point: 1. Atrial fibrillation. 2. Possible mass tumor in the atrium. 3. Type 2 diabetes mellitus, uncontrolled with neuropathy and nephropathy. 4. Gastroesophageal reflux disease. 5. Hypertension. 6. Chronic kidney disease. 7. Heart disease. 8. Congestive heart failure. 9. Unstable gait with osteoarthritis and osteoporosis. 10. Ventral hernia. 11. Nephrolithiasis, bilateral. No hydronephrosis. Therefore, the patient will still remain in ICU for close monitoring of atrial fibrillation and blood pressure. We will get the MRI and we will follow. Dictated By: NUBIA TEJEDA MD SB/NTS Conf#: [id number] DID#: [id number] CC: ERIK CHILDERS MD;*End*
[2018-06-12] MEDS: ATORVASTATIN 40 MG TAB PO SCH (20:26)
[2018-06-12] MEDS ORDERED: INSULIN ASPART [NOVOLOG] 3 ML PEN SC ONE (21:00)
[2018-06-12] MEDS: VANCOMYCIN 1 GM 250 ML IVPB SCH (22:58)
--- NOTE | 2018-06-12 23:46 | CONS ---
Assessment/Plan Assessment/Plan Hospital Course (Demo Recall) History of renal carcinoma status post nephrectomy focally prominent 2.7 cm soft tissue lobulation in the inferior left renal lower pole adjacent to surgical clips, possibly reflecting postsurgical change or recurrent neoplasm. renal protocol multi phase enhanced CT or MRI. CT AP- REVIEWED LDH- NOTED MRI ABD echocardiogram- echogenic structure in the right atrium, as well as attached to the tricuspid valve as well as the IVC. Differential includes vegetation, malignancy or thrombus. The IVC is focally distended at the inferior cavoatrial junction, containing an 8 mm metallic focus which may lie within intravenous tumor mass. Evaluation is quite limited in the absence of intravenous contrast. 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 Coarse calcifications in the left breast parenchyma, most likely benign. diagnostic mammography as outpt Acute congestive heart failure exacerbation. Acute sepsis, possible urinary tract infection. Elevated lactate levels. Type 2 diabetes mellitus, uncontrolled. Hyperglycemia. Diabetic neuropathy. Gastroesophageal reflux disease. Possible transient ischemic attacks. Hypertension, uncontrolled Consultation Date/Type/Reason Admit Date/Time Jun 11, 2018 at 11:29 Initial Consult Date 06/12/18 Type of Consult [facility] Requesting Provider: NUBIA TEJEDA MD Date/Time of Note DATE: 06/12/18 TIME: 23:46 24 HR Interval Summary Free Text/Dictation ALL NOTED NAD W-UP IN PROGRESS Exam/Review of Systems Exam Vitals Vital Signs Date Temp Pulse Resp B/P (MAP) Pulse Ox O2 O2 Flow FiO2 Time Delivery Rate 06/12/18 100 4.0 21:03 06/12/18 89 18 131/65 Nasal 19:00 (87) Cannula 06/12/18 98.2 16:00 06/11/18 40 11:31 Intake and Output 06/11/18 06/11/18 06/12/18 1515:00 23:00 07:00 IntakeIntake Total 100 ml 500 ml OutputOutput Total 1150 ml 710 ml BalanceBalance -1050 ml -210 ml Exam HEENT: Head is atraumatic, normocephalic. Pupils are equal and reactive to light. Extraocular muscles are intact. Nares are clear. No obstruction. No deviation of septum. Oral cavity: Normal oral hygiene. Ear canals are clear. No signs of inflammation or infection. Tympanic membrane is intact. NECK: Supple. No JVD. No surgical scars. No lymph nodes palpable over the neck. CHEST: AP contour is within normal limits. BREASTS: Nipples are normal. No nipple retraction. HEART: S1, S2. Regular rate and rhythm with cardiomegaly and systolic murmur over the apex. LUNGS: Scattered rhonchi and crackles over the bases of the lungs. ABDOMEN: Soft. Positive bowel sounds. No hepatosplenomegaly. No masses palpable over the abdomen and no rebound tenderness. EXTREMITIES: Plus/minus edema of the lower extremities. NEUROLOGIC: Cranial nerves II through XII are completely intact. No focal deficits. Results Result Diagram: 06/12/18 1520 06/12/18 0439 Results 24hrs Laboratory Tests Test 06/12/18 01:31 06/12/18 04:39 06/12/18 05:05 06/12/18 08:07 Bedside Glucose 291 H 151 White Blood Count 12.5 H Red Blood Count 4.23 Hemoglobin 11.8 L Hematocrit 37.1 Mean Corpuscular 87.7 Volume Mean Corpuscular 27.9 L Hemoglobin Mean Corpuscular 31.8 L Hemoglobin Concent Red Cell 13.2 Distribution Width Platelet Count 278 Mean Platelet Volume 11.7 H Immature 0.300 Granulocytes % Neutrophils % 73.9 Lymphocytes % 15.2 Monocytes % 8.5 Eosinophils % 1.7 Basophils % 0.4 Nucleated Red Blood 0.0 Cells % Immature 0.040 H Granulocytes # Neutrophils # 9.2 H Lymphocytes # 1.9 Monocytes # 1.1 H Eosinophils # 0.2 Basophils # 0.1 Nucleated Red Blood 0.0 Cells # Sodium Level 144 Potassium Level 3.8 Chloride Level 105 Carbon Dioxide Level 31 Anion Gap 8 Blood Urea Nitrogen 39 H Creatinine 1.42 H Est Glomerular Filtrat Rate mL/min Glucose Level 171 # Calcium Level 10.0 Magnesium Level 1.3 L Lactate 429 Dehydrogenase Troponin I 0.171 *H Test 06/12/18 12:49 06/12/18 15:20 06/12/18 17:45 06/12/18 20:24 Bedside Glucose 283 H 252 H 438 *H White Blood Count 13.1 H Red Blood Count 4.40 Hemoglobin 12.4 Hematocrit 38.9 Mean Corpuscular 88.4 Volume Mean Corpuscular 28.2 L Hemoglobin Mean Corpuscular 31.9 L Hemoglobin Concent Red Cell 13.2 Distribution Width Platelet Count 253 Mean Platelet Volume 11.6 H Immature 0.400 Granulocytes % Neutrophils % 76.4 Lymphocytes % 12.0 L Monocytes % 6.6 Eosinophils % 4.1 Basophils % 0.5 Nucleated Red Blood 0.0 Cells % Immature 0.050 H Granulocytes # Neutrophils # 10.0 H Lymphocytes # 1.6 Monocytes # 0.9 Eosinophils # 0.5 Basophils # 0.1 Nucleated Red Blood 0.0 Cells # Prothrombin Time 12.4 Prothrombin Time 1.0 Ratio INR International 0.91 Normalized Ratio Activated 24.5 Partial Thromboplast Time Test 06/12/18 21:28 Bedside Glucose 562 *H Imaging Imaging PROCEDURE: CT Abdomen and Pelvis without contrast. CLINICAL INDICATION: Reported masses in the right atrium and IVC in patient with history of renal cell carcinoma. TECHNIQUE: Unenhanced CT scan of the abdomen and pelvis was performed on a multi-detector high-resolution CT scanner. Coronal and sagittal reformatted images were obtained from the axial source images. Images were reviewed on a high-resolution PACS workstation. The total exam CTDI equals 18.0 mGy and the total exam DLP equals 979.7 mGy-cm. DICOM images are available. One or more of the following dose reduction techniques were utilized: 1.) Automated exposure control 2.) Adjustment of the mA +/- kV according to patient's size 3.) Use of iterative reconstruction technique. COMPARISON: No prior abdomen pelvis studies available for comparison in the PACS at time of image interpretation. FINDINGS: Evaluation of the soft tissues and viscera is technically limited in the absence of intravenous contrast. This significantly limits evaluation for reported cardiac and vascular masses. Partially visualized small - moderate bilateral pleural effusions, worse on the right, with associated compressive atelectasis of the basilar and posterior lower lobes, evaluation degraded by respiratory motion artifact. Heart size is normal without identifiable significant pericardial effusion. Aortic and mitral valve calcifications. Coronary artery calcifications. Partially visualized post sternotomy changes. The IVC is focally distended to 3.2 cm diameter at the inferior cavoatrial junction, containing an 8 mm metallic focus which may lie within intravenous tumor mass, demonstrating associated star artifact limiting e valuation of the local anatomy (axial image 26, coronal image 49, sagittal image 67). Severe systemic atherosclerotic calcifications without abdominal aortoiliac aneurysmal dilatation. No pathologic lymphadenopathy identified by imaging criteria in the absence of intravenous contrast. Liver demonstrates normal size and contour, without identifiable focal mass lesion in the absence of intravenous contrast. Cholelithiasis versus sludge in the moderately distended gallbladder without identifiable pericholecystic inflammatory change or extrahepatic biliary ductal dilatation. Mild fatty pancreatic atrophy slightly asymmetrically involves the head. Spleen is normal in size. Left adrenal 11 mm adenoma (axial image 46). Right adrenal gland appears normal. Bowel is unobstructed without free air, free fluid or focal mesenteric inflammatory change. Appendix appears normal. Few scattered tiny left colonic diverticuli without evidence of acute diverticulitis. The left kidney is scarred and lobulated with multiple surgical clips about the lower pole likely reflecting prior partial nephrectomy. Focally prominent ovoid 2.4 x 2.7 x 1.8 cm soft tissue lobulation in the inferior left renal lower pole adjacent to surgical clips could reflect postsurgical change or recurrent neoplasm (axial image 68, coronal image 62, sagittal image 101). Right renal upper pole 8 mm exophytic hyperattenuating focus likely reflects hemorrhagic cyst (axial image 66, coronal image 56). Punctate 1-2 mm nonobstructive nephrolithiasis in bilateral renal lower poles without hydronephrosis. The ureters run unobstructed to a normal - appearing mildly distended bladder containing a Odonnell catheter. The uterus appears age appropriate. No pathologic adnexal mass identified in the absence of intravenous contrast. Diffuse bony demineralization. Mild reversal of upper lumbar lordosis centered on L2-3. Minimal 4 mm grade 1 anterolisthesis of L5 on S1, associated with degenerative changes suggesting chronicity. Multilevel spondylotic changes with degenerative endplate changes, loss of disc height, vacuum disc effect and generalized bulging with associated marginal endplate osteophytosis, facet hypertrophy and ligamentum flavum thickening which appears most pronounced at L4-5 and L5-S1 where there is moderate - severe canal and neural foraminal stenosis, suboptimally evaluated by CT.. Healed midline infraumbilical laparotomy wound with postsurgical changes of the ventral abdominal hernia mesh repair. Tiny bilobed 24 x 9 x 19 mm fatty alecia-incisional hernia noted at the inferior aspect of the mesh repair (axial image 124, coronal image 25, sagittal image 67). Coarse calcifications noted in the left breast parenchyma (axial image 9). IMPRESSION: 1. The IVC is focally distended at the inferior cavoatrial junction, containing an 8 mm metallic focus which may lie within intravenous tumor mass. Evaluation is quite limited in the absence of intravenous contrast. 2. Status post left renal lower pole partial nephrectomy with focally prominent 2.7 cm soft tissue lobulation in the inferior left renal lower pole adjacent to surgical clips, possibly reflecting postsurgical change or recurrent neoplasm. Clinical correlation recommended with consideration for further evaluation with renal protocol multi phase enhanced CT or MRI. 3. Punctate nonobstructive bilateral nephrolithiasis without hydronephrosis. 4. Small - moderate bilateral pleural effusions, worse on the right. 5. Aortic and mitral valve calcifications may reflect valvular stenosis, without sakina cardiomegaly. Coronary artery calcifications. Partially visualized post sternotomy changes. Atherosclerosis. 6. Cholelithiasis versus sludge in the moderately distended gallbladder without sakina evidence of acute cholecystitis. This can be better evaluated with right upper quadrant ultrasound if clinically warranted. 7. 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 Minimal left colonic diverticulosis without evidence of acute diverticulitis. The bowel is unobstructed without evidence of perforation or abscess, and the appendix appears normal. 8. Status post midline infraumbilical ventral abdominal hernia mesh repair with tiny residual or recurrent alecia-incisional hernia noted at the inferior aspect. 9. Minimal chronic degenerative L5-S1 grade 1 anterolisthesis. 10. Multilevel spondylotic changes appear most pronounced at L4-5 and L5-S1, where there is moderate - severe canal and neural foraminal stenosis. This can be better evaluated by MRI L-spine if clinically warranted. 11. Coarse calcifications in the left breast parenchyma, most likely benign. Clinical correlation recommended with consideration for further evaluation with diagnostic mammography. Medications Medication Current Medications Aspirin (Halfprin) 81 mg DAILY PO Last administered on 06/12/18 09:50; Admin Dose 81 MG; Start 06/12/18 at 09:00 Atorvastatin Calcium (Lipitor) 40 mg QHS PO Last administered on 06/12/18 20:26; Admin Dose 40 MG; Start 06/11/18 at 21:00 Docusate Sodium (Colace) 100 mg TID PO Last administered on 06/12/18 20:26; Admin Dose 100 MG; Start 06/11/18 at 21:00 Furosemide (Lasix) 40 mg DAILY IV Last administered on 06/12/18 09:49; Admin Dose 40 MG; Start 06/12/18 at 09:00 Clonidine (Catapres) 0.1 mg Q6H PRN PO for sbp over 160; Start 06/11/18 at 17:30 Zolpidem Tartrate (Ambien) 5 mg HS PRN PO INSOMNIA Last administered on 06/11/18at 22:11; Admin Dose 5 MG; Start 06/11/18 at 17:30 Amlodipine Besylate (Norvasc) 5 mg DAILY PO Last administered on 06/12/18at 09:49; Admin Dose 5 MG; Start 06/11/18 at 17:30 Hydralazine HCl (Apresoline) 10 mg Q4H PRN IV sbp>165 Last administered on 06/11/18at 19:48; Admin Dose 10 MG; Start 06/11/18 at 17:30 Carvedilol (Coreg) 3.125 mg BID PO Last administered on 06/12/18at 20:27; Admin Dose 3.125 MG; Start 06/11/18 at 21:00 Vancomycin HCl (Vanco Iv Per Pharmacy) VANCOMYCIN PER PHARMACY PER PROTOCOL XX ; Start 06/11/18 at 18:30 Diagnostic Test (Pha) (Accu-Chek) 1 ea 02 XX Last administered on 06/12/18at 01:36; Admin Dose 1 EA; Start 06/12/18 at 02:00 Miscellaneous Information 1 ea NOTE XX ; Start 06/11/18 at 21:00 Glucose (Glutose) 15 gm Q15M PRN PO DECREASED GLUCOSE; Start 06/11/18 at 21:00 Glucose (Glutose) 22.5 gm Q15M PRN PO DECREASED GLUCOSE; Start 06/11/18 at 21:00 Dextrose (D50w Syringe) 25 ml Q15M PRN IV DECREASED GLUCOSE; Start 06/11/18 at 21:00 Dextrose (D50w Syringe) 50 ml Q15M PRN IV DECREASED GLUCOSE; Start 06/11/18 at 21:00 Glucagon (Glucagen) 1 mg Q15M PRN IM DECREASED GLUCOSE; Start 06/11/18 at 21:00 Glucose (Glutose) 15 gm Q15M PRN BUCCAL DECREASED GLUCOSE; Start 06/11/18 at 21:00 Vancomycin HCl 250 ml @ 125 mls/hr Q24H IVPB Last administered on 06/12/18at 22:58; Admin Dose 125 MLS/HR; Start 06/12/18 at 22:00 Magnesium Oxide (Mag-Ox 400) 500 mg TID PO Last administered on 06/12/18at 22:05; Admin Dose 500 MG; Start 06/12/18 at 09:00 Insulin Aspart (Novolog Insulin Pen) NOVOLOG *MODERATE* ALGORITHM WITH MEALS BEDTIME SC Last administered on 06/12/18at 20:32; Admin Dose 4 UNIT; Start 06/12/18 at 11:30 Lorazepam (Ativan) 1 mg ONCE PRN IV 30 MINUTES PRIOR TO MRI Last administered on 06/12/18at 15:23; Admin Dose 1 MG; Start 06/12/18 at 08:30; Stop 06/13/18 at 08:29 Lorazepam (Ativan) 1 mg ONCE PRN IV 30 MINUTES PRIOR TO MRI; Start 06/12/18 at 13:00; Stop 06/13/18 at 12:59 Heparin Sodium (Porcine) (Heparin (1000 Units/ml)) 4,000 unit PER PROTOCOL PRN IV aPTT<47; Start 06/12/18 at 15:30 Heparin Sodium (Porcine) 250 ml @ 10 mls/hr PER PROTOCOL IV Last administered on 06/12/18at 18:24; Admin Dose 10 MLS/HR; Start 06/12/18 at 18:30 Insulin Glargine (Lantus) 20 units DAILY@0800 SC ; Start 06/13/18 at 08:00 JOSÉ FRANZ MD Jun 12, 2018 23:46
[2018-06-13] VITALS (24 sets, daily range): BP systolic 112–178; BP diastolic 57–99; PULSE 74–120; RESP 15–25
[2018-06-13] MEDS: hydrALAzine 20 MG INJ IV PRN (00:07)
[2018-06-13] MEDS: HEPARIN 1000 UNITS/ML 10 ML INJ IV PRN ×2 (01:42→20:40)
[2018-06-13] MEDS: ACCU-CHEK XX SCH (02:26)
[2018-06-13] MEDS ORDERED: INSULIN ASPART [NOVOLOG] 3 ML PEN SC ONE ×2 (04:00→22:30)
[2018-06-13] MEDS ORDERED: HALOPERIDOL 5 MG INJ IM PRN (04:00)
[2018-06-13] MEDS ORDERED: INSULIN GLARGINE [LANTus] (100 UNITS/ML) SYG SC SCH (08:00)
--- NOTE | 2018-06-13 08:28 | CONS ---
Consult Date/Type/Reason Admit Date/Time Jun 11, 2018 at 11:29 Initial Consult Date 06/12/18 Type of Consultation: Urology Reason for Consultation Left renal tumor Requesting Provider: NUBIA TEJEDA MD Date/Time of Note DATE: 06/13/18 TIME: 08:24 Subjective Patient was confused last night and pulled her IVs and then she had hematuria. Objective Vitals Vital Signs Date Temp Pulse Resp B/P (MAP) Pulse Ox O2 O2 Flow FiO2 Time Delivery Rate 06/13/18 77 15 113/57 99 Nasal 07:00 (75) Cannula 06/13/18 97.5 04:00 06/13/18 3.0 01:14 06/11/18 40 11:31 Intake and Output 06/12/18 06/12/18 06/13/18 1515:00 23:00 07:00 IntakeIntake Total 200 ml 646.000 ml 708.75 ml OutputOutput Total 1095 ml 900 ml 480 ml BalanceBalance -895 ml -254.000 ml 228.75 ml Exam The abdomen is soft, there is no tenderness and no mass palpable. Results/Medications Result Diagram: 06/13/18 0430 06/13/18 0430 Results 24 hrs Laboratory Tests Test 06/12/18 12:49 06/12/18 15:20 06/12/18 17:45 06/12/18 20:24 Bedside Glucose 283 H 252 H 438 *H White Blood Count 13.1 H Red Blood Count 4.40 Hemoglobin 12.4 Hematocrit 38.9 Mean Corpuscular 88.4 Volume Mean Corpuscular 28.2 L Hemoglobin Mean Corpuscular 31.9 L Hemoglobin Concent Red Cell 13.2 Distribution Width Platelet Count 253 Mean Platelet Volume 11.6 H Immature 0.400 Granulocytes % Neutrophils % 76.4 Lymphocytes % 12.0 L Monocytes % 6.6 Eosinophils % 4.1 Basophils % 0.5 Nucleated Red Blood 0.0 Cells % Immature 0.050 H Granulocytes # Neutrophils # 10.0 H Lymphocytes # 1.6 Monocytes # 0.9 Eosinophils # 0.5 Basophils # 0.1 Nucleated Red Blood 0.0 Cells # Prothrombin Time 12.4 Prothrombin Time 1.0 Ratio INR International 0.91 Normalized Ratio Activated 24.5 Partial Thromboplast Time Test 06/12/18 21:28 06/13/18 00:30 06/13/18 02:22 06/13/18 03:45 Bedside Glucose 562 *H 253 H 340 H Activated 37.0 H Partial Thromboplast Time Test 06/13/18 04:30 White Blood Count 11.0 H Red Blood Count 4.50 Hemoglobin 12.6 Hematocrit 40.1 Mean Corpuscular 89.1 Volume Mean Corpuscular 28.0 L Hemoglobin Mean Corpuscular 31.4 L Hemoglobin Concent Red Cell 13.2 Distribution Width Platelet Count 254 Mean Platelet Volume 11.6 H Immature 0.500 H Granulocytes % Neutrophils % 69.8 Lymphocytes % 15.8 Monocytes % 8.1 Eosinophils % 5.4 Basophils % 0.4 Nucleated Red Blood 0.0 Cells % Immature 0.060 H Granulocytes # Neutrophils # 7.6 H Lymphocytes # 1.7 Monocytes # 0.9 Eosinophils # 0.6 H Basophils # 0.0 Nucleated Red Blood 0.0 Cells # Sodium Level 143 Potassium Level 3.6 Chloride Level 100 Carbon Dioxide Level 30 Anion Gap 13 Blood Urea Nitrogen 38 H Creatinine 1.59 H Est Glomerular Filtrat Rate mL/min Glucose Level 294 #H Calcium Level 9.6 B-Type Natriuretic 3560 H Peptide Home Meds Reported Medications Dulaglutide (Trulicity) 0.75 Mg/0.5 Ml Pen.injctr, 1.75 MG SQ WEEKLY 06/11/18 Insulin Glargine,Hum.rec.anlog (Basaglar Kwikpen U-100) 100 Unit/1 Ml Insuln.pen, 30 UNIT SC DAILY, EA 06/11/18 Ergocalciferol (Vitamin D2) (VITAMIN D2) 2,000 Unit Tablet, 2000 UNIT PO DAILY, TAB 06/11/18 Alendronate Sodium* (Fosamax*) 70 Mg Tablet, 70 MG PO Q7D, #4 TAB 06/11/18 Alendronate Sodium* (Fosamax*) 70 Mg Tablet, 70 MG PO Q7D, #4 TAB 06/11/18 Atenolol* (Atenolol*) 25 Mg Tablet, 25 MG PO BID, #60 TAB 06/11/18 Ferrous Sulfate (Ferrous Sulfate) 325 Mg Tablet.dr, 325 MG PO DAILY 06/11/18 Aspirin* (Aspirin* EC) 81 Mg Tablet.dr, 81 MG PO DAILY, TAB 06/11/18 Empagliflozin (Jardiance) 10 Mg Tablet, 10 MG PO DAILY, TAB 06/11/18 Esomeprazole Mag Trihydrate (Nexium) 20 Mg Capsule.dr, 20 MG PO AC BREAKFAST, #30 CAP 06/11/18 Gabapentin* (Gabapentin*) 100 Mg Capsule, 100 MG PO QHS, #90 CAP 06/11/18 Meloxicam* (Meloxicam*) 7.5 Mg Tablet, 7.5 MG PO DAILY, #30 TAB 06/11/18 Calcium Carbonate/Vitamin D3 (OYSTER SHELL 500 MG + VIT D TB) 1 Each Tablet, 1 EACH PO BID, TAB 06/11/18 Docusate Sodium* (Colace*) 100 Mg Capsule, 100 MG PO TID, #60 CAP 06/11/18 Metformin* (Glucophage*) 500 Mg Tab, 500 MG PO BID, #90 TAB 06/11/18 Atorvastatin* (Atorvastatin*) 40 Mg Tablet, 40 MG PO QHS, #30 TAB 06/11/18 Allopurinol* (Allopurinol*) 100 Mg Tablet, 100 MG PO BID, TAB 06/11/18 Medications Current Medications Aspirin (Halfprin) 81 mg DAILY PO Last administered on 06/12/18at 09:50; Admin Dose 81 MG; Start 06/12/18 at 09:00 Atorvastatin Calcium (Lipitor) 40 mg QHS PO Last administered on 06/12/18at 20:26; Admin Dose 40 MG; Start 06/11/18 at 21:00 Docusate Sodium (Colace) 100 mg TID PO Last administered on 06/12/18at 20:26; Admin Dose 100 MG; Start 06/11/18 at 21:00 Furosemide (Lasix) 40 mg DAILY IV Last administered on 06/12/18at 09:49; Admin Dose 40 MG; Start 06/12/18 at 09:00 Clonidine (Catapres) 0.1 mg Q6H PRN PO for sbp over 160; Start 06/11/18 at 17:30 Zolpidem Tartrate (Ambien) 5 mg HS PRN PO INSOMNIA Last administered on 06/11/18at 22:11; Admin Dose 5 MG; Start 06/11/18 at 17:30 Amlodipine Besylate (Norvasc) 5 mg DAILY PO Last administered on 06/12/18at 09:49; Admin Dose 5 MG; Start 06/11/18 at 17:30 Hydralazine HCl (Apresoline) 10 mg Q4H PRN IV sbp>165 Last administered on 06/13/18at 00:07; Admin Dose 10 MG; Start 06/11/18 at 17:30 Carvedilol (Coreg) 3.125 mg BID PO Last administered on 06/12/18at 20:27; Admin Dose 3.125 MG; Start 06/11/18 at 21:00 Vancomycin HCl (Vanco Iv Per Pharmacy) VANCOMYCIN PER PHARMACY PER PROTOCOL XX ; Start 06/11/18 at 18:30 Diagnostic Test (Pha) (Accu-Chek) 1 ea 02 XX Last administered on 06/13/18at 02:26; Admin Dose 1 EA; Start 06/12/18 at 02:00 Miscellaneous Information 1 ea NOTE XX ; Start 06/11/18 at 21:00 Glucose (Glutose) 15 gm Q15M PRN PO DECREASED GLUCOSE; Start 06/11/18 at 21:00 Glucose (Glutose) 22.5 gm Q15M PRN PO DECREASED GLUCOSE; Start 06/11/18 at 21:00 Dextrose (D50w Syringe) 25 ml Q15M PRN IV DECREASED GLUCOSE; Start 06/11/18 at 21:00 Dextrose (D50w Syringe) 50 ml Q15M PRN IV DECREASED GLUCOSE; Start 06/11/18 at 21:00 Glucagon (Glucagen) 1 mg Q15M PRN IM DECREASED GLUCOSE; Start 06/11/18 at 21:00 Glucose (Glutose) 15 gm Q15M PRN BUCCAL DECREASED GLUCOSE; Start 06/11/18 at 21:00 Vancomycin HCl 250 ml @ 125 mls/hr Q24H IVPB Last administered on 06/12/18at 22:58; Admin Dose 125 MLS/HR; Start 06/12/18 at 22:00 Magnesium Oxide (Mag-Ox 400) 500 mg TID PO Last administered on 06/12/18at 22:05; Admin Dose 500 MG; Start 06/12/18 at 09:00 Insulin Aspart (Novolog Insulin Pen) NOVOLOG *MODERATE* ALGORITHM WITH MEALS BEDTIME SC Last administered on 06/12/18at 20:32; Admin Dose 4 UNIT; Start 06/12/18 at 11:30 Lorazepam (Ativan) 1 mg ONCE PRN IV 30 MINUTES PRIOR TO MRI Last administered on 06/12/18at 15:23; Admin Dose 1 MG; Start 06/12/18 at 08:30; Stop 06/13/18 at 08:29 Lorazepam (Ativan) 1 mg ONCE PRN IV 30 MINUTES PRIOR TO MRI; Start 06/12/18 at 13:00; Stop 06/13/18 at 12:59 Heparin Sodium (Porcine) (Heparin (1000 Units/ml)) 4,000 unit PER PROTOCOL PRN IV aPTT<47 Last administered on 06/13/18at 01:42; Admin Dose 4,000 UNIT; Start 06/12/18 at 15:30; Status Hold Heparin Sodium (Porcine) 250 ml @ 10 mls/hr PER PROTOCOL IV Last administered on 06/12/18at 18:24; Admin Dose 10 MLS/HR; Start 06/12/18 at 18:30; Status Hold Insulin Glargine (Lantus) 20 units DAILY@0800 SC ; Start 06/13/18 at 08:00 Haloperidol (Haldol) 5 mg DAILY PRN IM AGITATION/ANXIETY Last administered on 06/13/18at 03:43; Admin Dose 5 MG; Start 06/13/18 at 04:00 Imaging MRI of the abdomen and pelvis: Lobulated enhancing mass in the lower left kidney which may represent recurrent or residual neoplasm. Slight extra renal extension is possible but no adenopathy, distant metastatic disease, or definite venous invasion is seen. Distended gallbladder with small stones. Minimal intrahepatic biliary duct prominence without dilated common bile duct or large visible common bile duct stones. Incidental colonic lipoma. Assessment/Plan Hospital Course (Demo Recall) 82-year-old female came into the emergency room with acute shortness of breath and discomfort over the chest. The patient has been having elevated blood pressure in the 160s over 90s for 1 week and she was very confused. She says she was very forgetful forgetting phone numbers of her children and not feeling right. She was complaining of some heaviness in the head and checking blood pressure which was elevated multiple times. She was taking her medications and she thought it would go away. 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 Upon presentation she underwent CT scan of the abdomen and pelvis and that showed: 1. The IVC is focally distended at the inferior cavoatrial junction, containing an 8 mm metallic focus which may lie within intravenous tumor mass. Evaluation is quite limited in the absence of intravenous contrast. 2. Status post left renal lower pole partial nephrectomy with focally prominent 2.7 cm soft tissue lobulation in the inferior left renal lower pole adjacent to surgical clips, possibly reflecting postsurgical change or recurrent neoplasm. Clinical correlation recommended with consideration for further evaluation with renal protocol multi phase enhanced CT or MRI. 3. Punctate nonobstructive bilateral nephrolithiasis without hydronephrosis. 4. Small - moderate bilateral pleural effusions, worse on the right. 5. Aortic and mitral valve calcifications may reflect valvular stenosis, without sakina cardiomegaly. Coronary artery calcifications. Partially visualized post sternotomy changes. Atherosclerosis. 6. Cholelithiasis versus sludge in the moderately distended gallbladder without sakina evidence of acute cholecystitis. This can be better evaluated with right upper quadrant ultrasound if clinically warranted. 7. 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 Minimal left colonic diverticulosis without evidence of acute diverticulitis. The bowel is unobstructed without evidence of perforation or abscess, and the appendix appears normal. 8. Status post midline infraumbilical ventral abdominal hernia mesh repair with tiny residual or recurrent alecia-incisional hernia noted at the inferior aspect. 9. Minimal chronic degenerative L5-S1 grade 1 anterolisthesis. 10. Multilevel spondylotic changes appear most pronounced at L4-5 and L5-S1, where there is moderate - severe canal and neural foraminal stenosis. This can be better evaluated by MRI L-spine if clinically warranted. 11. Coarse calcifications in the left breast parenchyma, most likely benign. Clinical correlation recommended with consideration for further evaluation with diagnostic mammography MRI of the abdomen and pelvis : Lobulated enhancing mass in the lower left kidney which may represent recurrent or residual neoplasm. Slight extra renal extension is possible but no adenopathy, distant metastatic disease, or definite venous invasion is seen. Distended gallbladder with small stones. Minimal intrahepatic biliary duct prominence without dilated common bile duct or large visible common bile duct stones. Incidental colonic lipoma. Hematuria is most likely related to her being on anticoagulation as well as being confused and pulling out her IV. She may have pulled on her catheter as well Urologically we will just observe. I do not think she is any surgical candidate at the present. Consider oncology consultation. ERIK CHILDERS MD Jun 13, 2018 08:28
[2018-06-13] MEDS: INSULIN ASPART [NOVOLOG] 3 ML PEN SC SCH ×4 (08:30→20:44)
--- NOTE | 2018-06-13 10:47 | CONS ---
Consult Date/Type/Reason Admit Date/Time Jun 11, 2018 at 11:29 Initial Consult Date 06/12/18 Type of Consult Pulmonary Requesting Provider: NUBIA TEJEDA MD Date/Time of Note DATE: 06/13/18 TIME: 10:43 Subjective Patient stable this morning no respiratory distress Pending MRA following MRI yesterday Objective Vital Signs Date Temp Pulse Resp B/P (MAP) Pulse Ox O2 O2 Flow FiO2 Time Delivery Rate 06/13/18 83 15 114/61 100 Nasal 10:00 (78) Cannula 06/13/18 97.4 08:00 06/13/18 3.0 01:14 06/11/18 40 11:31 Intake and Output 06/12/18 06/12/18 06/13/18 1515:00 23:00 07:00 IntakeIntake Total 200 ml 646.000 ml 708.75 ml OutputOutput Total 1095 ml 900 ml 480 ml BalanceBalance -895 ml -254.000 ml 228.75 ml Exam PHYSICAL EXAMINATION: GENERAL: Well-nourished, well-developed lady, appears comfortable at rest, talking in full and complete sentences. VITAL SIGNS: NECK: Supple. No JVD or lymphadenopathy. CARDIAC: S1, S2, no added sounds or murmurs. CHEST: Diminished air entry bilaterally with rales. ABDOMEN: Soft, nontender. No guarding or rebound. EXTREMITIES: No cyanosis, clubbing, lumps, edema. NEUROLOGIC: Generalized weakness. No focal deficits. Results/Medications Result Diagram: 06/13/18 0430 06/13/18 0430 Results 24 hrs Laboratory Tests Test 06/12/18 12:49 06/12/18 15:20 06/12/18 17:45 06/12/18 20:24 Bedside Glucose 283 H 252 H 438 *H White Blood Count 13.1 H Red Blood Count 4.40 Hemoglobin 12.4 Hematocrit 38.9 Mean Corpuscular 88.4 Volume Mean Corpuscular 28.2 L Hemoglobin Mean Corpuscular 31.9 L Hemoglobin Concent Red Cell 13.2 Distribution Width Platelet Count 253 Mean Platelet Volume 11.6 H Immature 0.400 Granulocytes % Neutrophils % 76.4 Lymphocytes % 12.0 L Monocytes % 6.6 Eosinophils % 4.1 Basophils % 0.5 Nucleated Red Blood 0.0 Cells % Immature 0.050 H Granulocytes # Neutrophils # 10.0 H Lymphocytes # 1.6 Monocytes # 0.9 Eosinophils # 0.5 Basophils # 0.1 Nucleated Red Blood 0.0 Cells # Prothrombin Time 12.4 Prothrombin Time 1.0 Ratio INR International 0.91 Normalized Ratio Activated 24.5 Partial Thromboplast Time Test 06/12/18 21:28 06/13/18 00:30 06/13/18 02:22 06/13/18 03:45 Bedside Glucose 562 *H 253 H 340 H Activated 37.0 H Partial Thromboplast Time Test 06/13/18 04:30 06/13/18 08:23 White Blood Count 11.0 H Red Blood Count 4.50 Hemoglobin 12.6 Hematocrit 40.1 Mean Corpuscular 89.1 Volume Mean Corpuscular 28.0 L Hemoglobin Mean Corpuscular 31.4 L Hemoglobin Concent Red Cell 13.2 Distribution Width Platelet Count 254 Mean Platelet Volume 11.6 H Immature 0.500 H Granulocytes % Neutrophils % 69.8 Lymphocytes % 15.8 Monocytes % 8.1 Eosinophils % 5.4 Basophils % 0.4 Nucleated Red Blood 0.0 Cells % Immature 0.060 H Granulocytes # Neutrophils # 7.6 H Lymphocytes # 1.7 Monocytes # 0.9 Eosinophils # 0.6 H Basophils # 0.0 Nucleated Red Blood 0.0 Cells # Sodium Level 143 Potassium Level 3.6 Chloride Level 100 Carbon Dioxide Level 30 Anion Gap 13 Blood Urea Nitrogen 38 H Creatinine 1.59 H Est Glomerular Filtrat Rate mL/min Glucose Level 294 #H Calcium Level 9.6 B-Type Natriuretic 3560 H Peptide Bedside Glucose 285 H Medications Current Medications Aspirin (Halfprin) 81 mg DAILY PO Last administered on 06/12/18 09:50; Admin Dose 81 MG; Start 06/12/18 at 09:00 Atorvastatin Calcium (Lipitor) 40 mg QHS PO Last administered on 06/12/18 20:26; Admin Dose 40 MG; Start 06/11/18 at 21:00 Docusate Sodium (Colace) 100 mg TID PO Last administered on 06/12/18 20:26; Admin Dose 100 MG; Start 06/11/18 at 21:00 Furosemide (Lasix) 40 mg DAILY IV Last administered on 06/12/18 09:49; Admin Dose 40 MG; Start 06/12/18 at 09:00 Clonidine (Catapres) 0.1 mg Q6H PRN PO for sbp over 160; Start 06/11/18 at 17:3 0 Zolpidem Tartrate (Ambien) 5 mg HS PRN PO INSOMNIA Last administered on 06/11/18at 22:11; Admin Dose 5 MG; Start 06/11/18 at 17:30 Amlodipine Besylate (Norvasc) 5 mg DAILY PO Last administered on 06/12/18at 09:49; Admin Dose 5 MG; Start 06/11/18 at 17:30 Hydralazine HCl (Apresoline) 10 mg Q4H PRN IV sbp>165 Last administered on 06/13/18at 00:07; Admin Dose 10 MG; Start 06/11/18 at 17:30 Carvedilol (Coreg) 3.125 mg BID PO Last administered on 06/12/18at 20:27; Admin Dose 3.125 MG; Start 06/11/18 at 21:00 Vancomycin HCl (Vanco Iv Per Pharmacy) VANCOMYCIN PER PHARMACY PER PROTOCOL XX ; Start 06/11/18 at 18:30 Diagnostic Test (Pha) (Accu-Chek) 1 ea 02 XX Last administered on 06/13/18at 02:26; Admin Dose 1 EA; Start 06/12/18 at 02:00 Miscellaneous Information 1 ea NOTE XX ; Start 06/11/18 at 21:00 Glucose (Glutose) 15 gm Q15M PRN PO DECREASED GLUCOSE; Start 06/11/18 at 21:00 Glucose (Glutose) 22.5 gm Q15M PRN PO DECREASED GLUCOSE; Start 06/11/18 at 21:00 Dextrose (D50w Syringe) 25 ml Q15M PRN IV DECREASED GLUCOSE; Start 06/11/18 at 21:00 Dextrose (D50w Syringe) 50 ml Q15M PRN IV DECREASED GLUCOSE; Start 06/11/18 at 21:00 Glucagon (Glucagen) 1 mg Q15M PRN IM DECREASED GLUCOSE; Start 06/11/18 at 21:00 Glucose (Glutose) 15 gm Q15M PRN BUCCAL DECREASED GLUCOSE; Start 06/11/18 at 2 1:00 Vancomycin HCl 250 ml @ 125 mls/hr Q24H IVPB Last administered on 06/12/18at 22:58; Admin Dose 125 MLS/HR; Start 06/12/18 at 22:00 Magnesium Oxide (Mag-Ox 400) 500 mg TID PO Last administered on 06/12/18 22:05; Admin Dose 500 MG; Start 06/12/18 at 09:00 Insulin Aspart (Novolog Insulin Pen) NOVOLOG *MODERATE* ALGORITHM WITH MEALS BEDTIME SC Last administered on 06/13/18 08:30; Admin Dose 8 UNIT; Start 06/12/18 at 11:30 Lorazepam (Ativan) 1 mg ONCE PRN IV 30 MINUTES PRIOR TO MRI; Start 06/12/18 at 13:00; Stop 06/13/18 at 12:59 Heparin Sodium (Porcine) (Heparin (1000 Units/ml)) 4,000 unit PER PROTOCOL PRN IV aPTT<47 Last administered on 06/13/18 01:42; Admin Dose 4,000 UNIT; Start 06/12/18 at 15:30; Status Hold Heparin Sodium (Porcine) 250 ml @ 10 mls/hr PER PROTOCOL IV Last administered on 06/12/18 18:24; Admin Dose 10 MLS/HR; Start 06/12/18 at 18:30; Status Hold Insulin Glargine (Lantus) 20 units DAILY@0800 SC Last administered on 06/13/18 08:30; Admin Dose 20 UNITS; Start 06/13/18 at 08:00 Haloperidol (Haldol) 5 mg DAILY PRN IM AGITATION/ANXIETY Last administered on 06/13/18 03:43; Admin Dose 5 MG; Start 06/13/18 at 04:00 Assessment/Plan Hospital Course (Demo Recall) IMPRESSION: 1. Hypertensive urgency. 2. Acute congestive cardiac failure. 3. History of coronary artery disease. 4. History of renal carcinoma status post partial nephrectomy 5. IVC mass? New mass left lower kidney possible recurrent neoplasm Recommendations 1. Continue diuretics. 2. Supplemental O2. 3. Anticoagulation per primary team 4. DVT and GI prophylaxis. 5. Await MRA findings. May require hematology oncology evaluation Patient remains high risk for surgery given her advanced age. Critical care time 40 minutes PÉREZ MAN MD, [facility] Jun 13, 2018 10:47
[2018-06-13] MEDS ORDERED: FUROSEMIDE 20 MG INJ ONE (11:27)
[2018-06-13] MEDS: AMLODIPINE 5 MG TAB PO SCH (11:30)
[2018-06-13] MEDS: DOCUSATE SODIUM 100 MG CAP PO SCH ×3 (11:31→20:35)
[2018-06-13] MEDS: ASPIRIN (EC) 81 MG TAB PO SCH (11:31)
[2018-06-13] MEDS: MAGNESIUM OXIDE 400 MG TAB PO SCH ×3 (11:31→20:35)
--- NOTE | 2018-06-13 12:43 | CONS ---
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 Being followed by urology. I did discuss with radiologist, for better evaluation of the mass in the IVC, he recommended an MR venogram-this is planned for today -Patient with hematuria after initiation of IV heparin. As per urology note and discussion with nursing staff, this could be possibly secondary to anticoagulation and patient pulling on [place]. Once heparin stopped, hematuria stopped. Of concern is patient with paroxysmal fibrillation, as well as mass in the right atrium, IVC and concern for malignancy and hypercoagulable state. Hemoglobin has remained stable. I Requested to restart heparin and evaluate for any repeat issues. If any further bleeding, then would stop IV anticoagulation and restart subcu DVT prophylaxis. I have also started amiodarone p.o. to help maintain in sinus rhythm. -Lung examination has improved, continue Lasix with watching renal function closely. -Of note, venous Doppler is negative for DVT -Magnesium was supplemented yesterday. Magnesium level ordered for tomorrow. -Findings and plan of care discussed with patient's family bedside Consultation Date/Type/Reason Admit Date/Time Jun 11, 2018 at 11:29 Initial Consult Date 06/11/18 Type of Consult Cardiology Requesting Provider: NUBIA TEJEDA MD Date/Time of Note DATE: 06/13/18 TIME: 12:35 24 HR Interval Summary Free Text/Dictation Shortness of breath is better. Denies chest pain, palpitations or dizziness Exam/Review of Systems Vital Signs Vitals Vital Signs Date Temp Pulse Resp B/P (MAP) Pulse Ox O2 O2 Flow FiO2 Time Delivery Rate 06/13/18 99 3.0 12:21 06/13/18 83 15 114/61 Nasal 10:00 (78) Cannula 06/13/18 97.4 08:00 06/11/18 40 11:31 Intake and Output 06/12/18 06/12/18 06/13/18 1515:00 23:00 07:00 IntakeIntake Total 200 ml 646.000 ml 708.75 ml OutputOutput Total 1095 ml 900 ml 480 ml BalanceBalance -895 ml -254.000 ml 228.75 ml Exam Constitutional: alert, oriented (No apparent distress, family bedside) Head: normocephalic Respiratory: other (Coarse breath sounds bilaterally, mild scattered crackles) Cardiovascular: regular rate and rhythm (S1-S2 heard) Gastrointestinal: soft, non-tender, bowel sounds Extremities: edema Labs Result Diagram: 06/13/18 0430 06/13/18 0430 Results 24hrs Laboratory Tests Test 06/12/18 12:49 06/12/18 15:20 06/12/18 17:45 06/12/18 20:24 Bedside Glucose 283 H 252 H 438 *H White Blood Count 13.1 H Red Blood Count 4.40 Hemoglobin 12.4 Hematocrit 38.9 Mean Corpuscular 88.4 Volume Mean Corpuscular 28.2 L Hemoglobin Mean Corpuscular 31.9 L Hemoglobin Concent Red Cell 13.2 Distribution Width Platelet Count 253 Mean Platelet Volume 11.6 H Immature 0.400 Granulocytes % Neutrophils % 76.4 Lymphocytes % 12.0 L Monocytes % 6.6 Eosinophils % 4.1 Basophils % 0.5 Nucleated Red Blood 0.0 Cells % Immature 0.050 H Granulocytes # Neutrophils # 10.0 H Lymphocytes # 1.6 Monocytes # 0.9 Eosinophils # 0.5 Basophils # 0.1 Nucleated Red Blood 0.0 Cells # Prothrombin Time 12.4 Prothrombin Time 1.0 Ratio INR International 0.91 Normalized Ratio Activated 24.5 Partial Thromboplast Time Test 06/12/18 21:28 06/13/18 00:30 06/13/18 02:22 06/13/18 03:45 Bedside Glucose 562 *H 253 H 340 H Activated 37.0 H Partial Thromboplast Time Test 06/13/18 04:30 06/13/18 08:23 White Blood Count 11.0 H Red Blood Count 4.50 Hemoglobin 12.6 Hematocrit 40.1 Mean Corpuscular 89.1 Volume Mean Corpuscular 28.0 L Hemoglobin Mean Corpuscular 31.4 L Hemoglobin Concent Red Cell 13.2 Distribution Width Platelet Count 254 Mean Platelet Volume 11.6 H Immature 0.500 H Granulocytes % Neutrophils % 69.8 Lymphocytes % 15.8 Monocytes % 8.1 Eosinophils % 5.4 Basophils % 0.4 Nucleated Red Blood 0.0 Cells % Immature 0.060 H Granulocytes # Neutrophils # 7.6 H Lymphocytes # 1.7 Monocytes # 0.9 Eosinophils # 0.6 H Basophils # 0.0 Nucleated Red Blood 0.0 Cells # Sodium Level 143 Potassium Level 3.6 Chloride Level 100 Carbon Dioxide Level 30 Anion Gap 13 Blood Urea Nitrogen 38 H Creatinine 1.59 H Est Glomerular Filtrat Rate mL/min Glucose Level 294 #H Calcium Level 9.6 B-Type Natriuretic 3560 H Peptide Bedside Glucose 285 H Medications Medications Current Medications Aspirin (Halfprin) 81 mg DAILY PO Last administered on 06/13/18 11:31; Admin Dose 81 MG; Start 06/12/18 at 09:00 Atorvastatin Calcium (Lipitor) 40 mg QHS PO Last administered on 06/12/18 20:26; Admin Dose 40 MG; Start 06/11/18 at 21:00 Docusate Sodium (Colace) 100 mg TID PO Last administered on 06/13/18 11:31; Admin Dose 100 MG; Start 06/11/18 at 21:00 Furosemide (Lasix) 40 mg DAILY IV Last administered on 06/12/18 09:49; Admin Dose 40 MG; Start 06/12/18 at 09:00 Clonidine (Catapres) 0.1 mg Q6H PRN PO for sbp over 160; Start 06/11/18 at 17:30 Zolpidem Tartrate (Ambien) 5 mg HS PRN PO INSOMNIA Last administered on 06/11/18 22:11; Admin Dose 5 MG; Start 06/11/18 at 17:30 Amlodipine Besylate (Norvasc) 5 mg DAILY PO Last administered on 06/13/18 11:30; Admin Dose 5 MG; Start 06/11/18 at 17:30 Hydralazine HCl (Apresoline) 10 mg Q4H PRN IV sbp>165 Last administered on 06/13/18 00:07; Admin Dose 10 MG; Start 06/11/18 at 17:30 Carvedilol (Coreg) 3.125 mg BID PO Last administered on 06/13/18 11:31; Admin Dose 3.125 MG; Start 06/11/18 at 21:00 Vancomycin HCl (Vanco Iv Per Pharmacy) VANCOMYCIN PER PHARMACY PER PROTOCOL XX ; Start 06/11/18 at 18:30 Diagnostic Test (Pha) (Accu-Chek) 1 ea 02 XX Last administered on 06/13/18at 02:26; Admin Dose 1 EA; Start 06/12/18 at 02:00 Miscellaneous Information 1 ea NOTE XX ; Start 06/11/18 at 21:00 Glucose (Glutose) 15 gm Q15M PRN PO DECREASED GLUCOSE; Start 06/11/18 at 21:00 Glucose (Glutose) 22.5 gm Q15M PRN PO DECREASED GLUCOSE; Start 06/11/18 at 21:00 Dextrose (D50w Syringe) 25 ml Q15M PRN IV DECREASED GLUCOSE; Start 06/11/18 at 21:00 Dextrose (D50w Syringe) 50 ml Q15M PRN IV DECREASED GLUCOSE; Start 06/11/18 at 21:00 Glucagon (Glucagen) 1 mg Q15M PRN IM DECREASED GLUCOSE; Start 06/11/18 at 21:00 Glucose (Glutose) 15 gm Q15M PRN BUCCAL DECREASED GLUCOSE; Start 06/11/18 at 21:00 Vancomycin HCl 250 ml @ 125 mls/hr Q24H IVPB Last administered on 06/12/18at 22:58; Admin Dose 125 MLS/HR; Start 06/12/18 at 22:00 Magnesium Oxide (Mag-Ox 400) 500 mg TID PO Last administered on 06/13/18at 11: 31; Admin Dose 500 MG; Start 06/12/18 at 09:00 Insulin Aspart (Novolog Insulin Pen) NOVOLOG *MODERATE* ALGORITHM WITH MEALS BEDTIME SC Last administered on 06/13/18at 08:30; Admin Dose 8 UNIT; Start 06/12/18 at 11:30 Lorazepam (Ativan) 1 mg ONCE PRN IV 30 MINUTES PRIOR TO MRI; Start 06/12/18 at 13:00; Stop 06/13/18 at 12:59 Heparin Sodium (Porcine) (Heparin (1000 Units/ml)) 4,000 unit PER PROTOCOL PRN IV aPTT<47 Last administered on 06/13/18at 01:42; Admin Dose 4,000 UNIT; Start 06/12/18 at 15:30; Status Hold Heparin Sodium (Porcine) 250 ml @ 10 mls/hr PER PROTOCOL IV Last administered on 06/12/18at 18:24; Admin Dose 10 MLS/HR; Start 06/12/18 at 18:30; Status Hold Insulin Glargine (Lantus) 20 units DAILY@0800 SC Last administered on 06/13/18 08:30; Admin Dose 20 UNITS; Start 06/13/18 at 08:00 Haloperidol (Haldol) 5 mg DAILY PRN IM AGITATION/ANXIETY Last administered on 06/13/18at 03:43; Admin Dose 5 MG; Start 06/13/18 at 04:00 Alex Chávez DO Jun 13, 2018 12:43
[2018-06-13] MEDS ORDERED: FUROSEMIDE 40 MG INJ IV SCH (13:00)
--- NOTE | 2018-06-13 15:40 | CONS ---
Assessment/Plan Assessment/Plan Hospital Course (Demo Recall) History of renal carcinoma status post nephrectomy focally prominent 2.7 cm soft tissue lobulation in the inferior left renal lower pole adjacent to surgical clips, possibly reflecting postsurgical change or recurrent neoplasm. renal protocol multi phase enhanced CT or MRI. CT AP- REVIEWED LDH- NOTED MRI ABD echocardiogram- echogenic structure in the right atrium, as well as attached to the tricuspid valve as well as the IVC. Differential includes vegetation, malignancy or thrombus. The IVC is focally distended at the inferior cavoatrial junction, containing an 8 mm metallic focus which may lie within intravenous tumor mass. Evaluation is quite limited in the absence of intravenous contrast. 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 Coarse calcifications in the left breast parenchyma, most likely benign. diagnostic mammography as outpt Acute congestive heart failure exacerbation. Acute sepsis, possible urinary tract infection. Elevated lactate levels. Type 2 diabetes mellitus, uncontrolled. Hyperglycemia. Diabetic neuropathy. Gastroesophageal reflux disease. Possible transient ischemic attacks. Hypertension, uncontrolled Consultation Date/Type/Reason Admit Date/Time Jun 11, 2018 at 11:29 Initial Consult Date 06/12/18 Type of Consult [facility] Requesting Provider: NUBIA TEJEDA MD Date/Time of Note DATE: 06/13/18 TIME: 15:40 24 HR Interval Summary Free Text/Dictation NAD CT REVIEWED Exam/Review of Systems Exam Vitals Vital Signs Date Temp Pulse Resp B/P (MAP) Pulse Ox O2 O2 Flow FiO2 Time Delivery Rate 06/13/18 99 3.0 12:21 06/13/18 74 12:00 06/13/18 15 114/61 Nasal 10:00 (78) Cannula 06/13/18 97.4 08:00 06/11/18 40 11:31 Intake and Output 06/12/18 06/12/18 06/13/18 1515:00 23:00 07:00 IntakeIntake Total 200 ml 646.000 ml 708.75 ml OutputOutput Total 1095 ml 900 ml 480 ml BalanceBalance -895 ml -254.000 ml 228.75 ml Exam VITAL SIGNS: per chart NECK: Supple. No JVD or lymphadenopathy. CARDIAC EXAM: S1, S2. No added sounds or murmurs. CHEST: clear bilaterally, No added sounds, rales or wheezes ABDOMEN: Soft, nontender. No guarding or rebound. EXTREMITIES: No cyanosis, clubbing or edema. NEUROLOGIC: Generalized weakness. No focal deficit Results Result Diagram: 06/13/18 0430 06/13/18 0430 Results 24hrs Laboratory Tests Test 06/12/18 17:45 06/12/18 20:24 06/12/18 21:28 06/13/18 00:30 Bedside Glucose 252 H 438 *H 562 *H Activated 37.0 H Partial Thromboplast Time Test 06/13/18 02:22 06/13/18 03:45 06/13/18 04:30 06/13/18 08:23 Bedside Glucose 253 H 340 H 285 H White Blood Count 11.0 H Red Blood Count 4.50 Hemoglobin 12.6 Hematocrit 40.1 Mean Corpuscular 89.1 Volume Mean Corpuscular 28.0 L Hemoglobin Mean Corpuscular 31.4 L Hemoglobin Concent Red Cell 13.2 Distribution Width Platelet Count 254 Mean Platelet Volume 11.6 H Immature 0.500 H Granulocytes % Neutrophils % 69.8 Lymphocytes % 15.8 Monocytes % 8.1 Eosinophils % 5.4 Basophils % 0.4 Nucleated Red Blood 0.0 Cells % Immature 0.060 H Granulocytes # Neutrophils # 7.6 H Lymphocytes # 1.7 Monocytes # 0.9 Eosinophils # 0.6 H Basophils # 0.0 Nucleated Red Blood 0.0 Cells # Sodium Level 143 Potassium Level 3.6 Chloride Level 100 Carbon Dioxide Level 30 Anion Gap 13 Blood Urea Nitrogen 38 H Creatinine 1.59 H Est Glomerular Filtrat Rate mL/min Glucose Level 294 #H Calcium Level 9.6 B-Type Natriuretic 3560 H Peptide Test 06/13/18 12:52 Bedside Glucose 323 H Medications Medication Current Medications Aspirin (Halfprin) 81 mg DAILY PO Last administered on 06/13/18at 11:31; Admin Dose 81 MG; Start 06/12/18 at 09:00 Atorvastatin Calcium (Lipitor) 40 mg QHS PO Last administered on 06/12/18at 20:26; Admin Dose 40 MG; Start 06/11/18 at 21:00 Docusate Sodium (Colace) 100 mg TID PO Last administered on 06/13/18at 11:31; Admin Dose 100 MG; Start 06/11/18 at 21:00 Clonidine (Catapres) 0.1 mg Q6H PRN PO for sbp over 160; Start 06/11/18 at 17:30 Zolpidem Tartrate (Ambien) 5 mg HS PRN PO INSOMNIA Last administered on 06/11/18 22:11; Admin Dose 5 MG; Start 06/11/18 at 17:30 Amlodipine Besylate (Norvasc) 5 mg DAILY PO Last administered on 06/13/18 11:30; Admin Dose 5 MG; Start 06/11/18 at 17:30 Hydralazine HCl (Apresoline) 10 mg Q4H PRN IV sbp>165 Last administered on 06/13/18at 00:07; Admin Dose 10 MG; Start 06/11/18 at 17:30 Carvedilol (Coreg) 3.125 mg BID PO Last administered on 06/13/18 11:31; Admin Dose 3.125 MG; Start 06/11/18 at 21:00 Vancomycin HCl (Vanco Iv Per Pharmacy) VANCOMYCIN PER PHARMACY PER PROTOCOL XX ; Start 06/11/18 at 18:30 Diagnostic Test (Pha) (Accu-Chek) 1 ea 02 XX Last administered on 06/13/18at 02:26; Admin Dose 1 EA; Start 06/12/18 at 02:00 Miscellaneous Information 1 ea NOTE XX ; Start 06/11/18 at 21:00 Glucose (Glutose) 15 gm Q15M PRN PO DECREASED GLUCOSE; Start 06/11/18 at 21:00 Glucose (Glutose) 22.5 gm Q15M PRN PO DECREASED GLUCOSE; Start 06/11/18 at 21 :00 Dextrose (D50w Syringe) 25 ml Q15M PRN IV DECREASED GLUCOSE; Start 06/11/18 at 21:00 Dextrose (D50w Syringe) 50 ml Q15M PRN IV DECREASED GLUCOSE; Start 06/11/18 at 21:00 Glucagon (Glucagen) 1 mg Q15M PRN IM DECREASED GLUCOSE; Start 06/11/18 at 21:00 Glucose (Glutose) 15 gm Q15M PRN BUCCAL DECREASED GLUCOSE; Start 06/11/18 at 21:00 Vancomycin HCl 250 ml @ 125 mls/hr Q24H IVPB Last administered on 06/12/18at 22:58; Admin Dose 125 MLS/HR; Start 06/12/18 at 22:00 Magnesium Oxide (Mag-Ox 400) 500 mg TID PO Last administered on 06/13/18 11:31; Admin Dose 500 MG; Start 06/12/18 at 09:00 Insulin Aspart (Novolog Insulin Pen) NOVOLOG *MODERATE* ALGORITHM WITH MEALS BEDTIME SC Last administered on 06/13/18 13:06; Admin Dose 10 UNIT; Start 06/12/18 at 11:30 Heparin Sodium (Porcine) (Heparin (1000 Units/ml)) 4,000 unit PER PROTOCOL PRN IV aPTT<47 Last administered on 06/13/18 01:42; Admin Dose 4,000 UNIT; Start 06/12/18 at 15:30 Heparin Sodium (Porcine) 250 ml @ 10 mls/hr PER PROTOCOL IV Last administered on 06/12/18 18:24; Admin Dose 10 MLS/HR; Start 06/12/18 at 18:30 Haloperidol (Haldol) 5 mg DAILY PRN IM AGITATION/ANXIETY Last administered on 06/13/18 03:43; Admin Dose 5 MG; Start 06/13/18 at 04:00 Amiodarone HCl (Cordarone) 200 mg DAILY PO ; Start 06/13/18 at 13:00 Insulin Glargine (Lantus) 20 units BID SC ; Start 06/13/18 at 21:00 Furosemide (Lasix) 40 mg DAILY@0600 PO ; Start 06/14/18 at 06:00 JOSÉ FRANZ MD Jun 13, 2018 15:40
[2018-06-13] MEDS: AMIODARONE 200 MG TAB PO SCH (16:29)
[2018-06-13] MEDS: ATORVASTATIN 40 MG TAB PO SCH (20:35)
[2018-06-13] MEDS: INSULIN GLARGINE [LANTus] (100 UNITS/ML) SYG SC SCH (20:42)
[2018-06-13] MEDS: VANCOMYCIN 1 GM 250 ML IVPB SCH (22:41)
[2018-06-14] VITALS (24 sets, daily range): BP systolic 117–173; BP diastolic 55–104; PULSE 68–91; RESP 14–24
[2018-06-14] MEDS: HEPARIN 25000 UNITS/250 ML 250 ML IV SCH (01:06)
[2018-06-14] MEDS: ACCU-CHEK XX SCH (01:27)
[2018-06-14] MEDS: FUROSEMIDE 40 MG TAB PO SCH (05:39)
[2018-06-14] MEDS: INSULIN ASPART [NOVOLOG] 3 ML PEN SC SCH ×4 (08:10→20:54)
[2018-06-14] MEDS: INSULIN GLARGINE [LANTus] (100 UNITS/ML) SYG SC SCH ×2 (08:11→20:55)
--- NOTE | 2018-06-14 09:44 | CONS ---
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% Paroxysmal atrial fibrillation-currently sinus rhythm Echo dense structure seen by tricuspid valve, right atrium and IVC CAD with history of CABG History of renal carcinoma status post nephrectomy approximately 8 years ago Hypertension, improved Diabetes, uncontrolled Acute kidney injury Plan: MRA without evidence of IVC mass currently no hematuria, will continue heparin gtt for stroke prevention in PAF Consultation Date/Type/Reason Admit Date/Time Jun 11, 2018 at 11:29 Initial Consult Date 06/12/18 Type of Consult Cardiology Requesting Provider: NUBIA TEJEDA MD Date/Time of Note DATE: 06/14/18 TIME: 09:43 Detailed Summary Respiratory: no complaints Cardiovascular: no complaints Gastrointestinal: no complaints Genitourinary: no complaints Musculoskeletal: no complaints Skin: no complaints Neurologic: no complaints Exam/Review of Systems Vital Signs Vitals Vital Signs Date Temp Pulse Resp B/P (MAP) Pulse Ox O2 O2 Flow FiO2 Time Delivery Rate 06/14/18 68 16 131/64 97 Nasal 06:00 (86) Cannula 06/14/18 98.2 04:00 06/14/18 3.0 02:48 06/11/18 40 11:31 Intake and Output 06/13/18 06/13/18 06/14/18 1515:00 23:00 07:00 IntakeIntake Total 312.5 ml 590.5 ml 724.0 ml OutputOutput Total 325 ml 600 ml 270 ml BalanceBalance -12.5 ml -9.5 ml 454.0 ml Exam Constitutional: alert, oriented Head: normocephalic, atraumatic Neck: supple Respiratory: clear to auscultation Cardiovascular: regular rate and rhythm Gastrointestinal: soft Musculoskeletal: nl extremities to inspection Labs Result Diagram: 06/14/18 0402 06/14/18 0402 Results 24hrs Laboratory Tests Test 06/13/18 12:52 06/13/18 17:17 06/13/18 18:59 06/13/18 20:38 Bedside Glucose 323 H 256 H 384 H Activated 36.8 H Partial Thromboplast Time Test 06/13/18 22:40 06/14/18 01:27 06/14/18 02:06 06/14/18 04:02 Bedside Glucose 312 H 179 Activated 149.3 *H Partial Thromboplast Time White Blood Count 10.9 H Red Blood Count 4.35 Hemoglobin 12.2 Hematocrit 38.3 Mean Corpuscular 88.0 Volume Mean Corpuscular 28.0 L Hemoglobin Mean Corpuscular 31.9 L Hemoglobin Concent Red Cell 13.1 Distribution Width Platelet Count 212 Mean Platelet Volume 12.2 H Immature 0.300 Granulocytes % Neutrophils % 60.9 Lymphocytes % 22.6 Monocytes % 9.5 Eosinophils % 6.1 Basophils % 0.6 Nucleated Red Blood 0.0 Cells % Immature 0.030 Granulocytes # Neutrophils # 6.6 Lymphocytes # 2.5 Monocytes # 1.0 H Eosinophils # 0.7 H Basophils # 0.1 Nucleated Red Blood 0.0 Cells # Sodium Level 140 Potassium Level 4.5 Chloride Level 100 Carbon Dioxide Level 33 H Anion Gap 7 Blood Urea Nitrogen 50 H Creatinine 1.59 H Est Glomerular Filtrat Rate mL/min Glucose Level 151 # Calcium Level 9.0 Phosphorus Level 4.8 Magnesium Level 2.7 #H Test 06/14/18 07:18 06/14/18 08:07 Activated 68.6 H Partial Thromboplast Time Bedside Glucose 202 Medications Medications Current Medications Aspirin (Halfprin) 81 mg DAILY PO Last administered on 06/13/18 11:31; Admin Dose 81 MG; Start 06/12/18 at 09:00 Atorvastatin Calcium (Lipitor) 40 mg QHS PO Last administered on 06/13/18 20:35; Admin Dose 40 MG; Start 06/11/18 at 21:00 Docusate Sodium (Colace) 100 mg TID PO Last administered on 06/13/18 20:35; Admin Dose 100 MG; Start 06/11/18 at 21:00 Clonidine (Catapres) 0.1 mg Q6H PRN PO for sbp over 160; Start 06/11/18 at 17:30 Zolpidem Tartrate (Ambien) 5 mg HS PRN PO INSOMNIA Last administered on 22:11; Admin Dose 5 MG; Start 06/11/18 at 17:30 Amlodipine Besylate (Norvasc) 5 mg DAILY PO Last administered on 06/13/18 11:30; Admin Dose 5 MG; Start 06/11/18 at 17:30 Hydralazine HCl (Apresoline) 10 mg Q4H PRN IV sbp>165 Last administered on 06/13/18at 00:07; Admin Dose 10 MG; Start 06/11/18 at 17:30 Carvedilol (Coreg) 3.125 mg BID PO Last administered on 06/13/18at 20:35; Admin Dose 3.125 MG; Start 06/11/18 at 21:00 Vancomycin HCl (Vanco Iv Per Pharmacy) VANCOMYCIN PER PHARMACY PER PROTOCOL XX ; Start 06/11/18 at 18:30 Diagnostic Test (Pha) (Accu-Chek) 1 ea 02 XX Last administered on 06/14/18at 01:27; Admin Dose 1 EA; Start 06/12/18 at 02:00 Miscellaneous Information 1 ea NOTE XX ; Start 06/11/18 at 21:00 Glucose (Glutose) 15 gm Q15M PRN PO DECREASED GLUCOSE; Start 06/11/18 at 21:00 Glucose (Glutose) 22.5 gm Q15M PRN PO DECREASED GLUCOSE; Start 06/11/18 at 21:00 Dextrose (D50w Syringe) 25 ml Q15M PRN IV DECREASED GLUCOSE; Start 06/11/18 at 21:00 Dextrose (D50w Syringe) 50 ml Q15M PRN IV DECREASED GLUCOSE; Start 06/11/18 at 21:00 Glucagon (Glucagen) 1 mg Q15M PRN IM DECREASED GLUCOSE; Start 06/11/18 at 21:00 Glucose (Glutose) 15 gm Q15M PRN BUCCAL DECREASED GLUCOSE; Start 06/11/18 at 21:00 Vancomycin HCl 250 ml @ 125 mls/hr Q24H IVPB Last administered on 06/13/18at 22:41; Admin Dose 125 MLS/HR; Start 06/12/18 at 22:00 Magnesium Oxide (Mag-Ox 400) 500 mg TID PO Last administered on 06/13/18at 20:35; Admin Dose 500 MG; Start 06/12/18 at 09:00 Insulin Aspart (Novolog Insulin Pen) NOVOLOG *MODERATE* ALGORITHM WITH MEALS BEDTIME SC Last administered on 06/14/18at 08:10; Admin Dose 4 UNIT; Start 06/12/18 at 11:30 Heparin Sodium (Porcine) (Heparin (1000 Units/ml)) 4,000 unit PER PROTOCOL PRN IV aPTT<47 Last administered on 06/13/18 20:40; Admin Dose 4,000 UNIT; Start 06/12/18 at 15:30 Heparin Sodium (Porcine) 250 ml @ 10 mls/hr PER PROTOCOL IV Last administered on 06/14/18 01:06; Admin Dose 13.5 MLS/HR; Start 06/12/18 at 18:30 Haloperidol (Haldol) 5 mg DAILY PRN IM AGITATION/ANXIETY Last administered on 06/13/18 03:43; Admin Dose 5 MG; Start 06/13/18 at 04:00 Amiodarone HCl (Cordarone) 200 mg DAILY PO Last administered on 06/13/18 16:29; Admin Dose 200 MG; Start 06/13/18 at 13:00 Insulin Glargine (Lantus) 20 units BID SC Last administered on 06/14/18 08:11; Admin Dose 20 UNITS; Start 06/13/18 at 21:00 Furosemide (Lasix) 40 mg DAILY@0600 PO Last administered on 06/14/18 05:39; Admin Dose 40 MG; Start 06/14/18 at 06:00 Miscellaneous Information (*Rx Drug Level Order Reminder*) VANCO TROUGH FOR @ 2,100 ONCE ONCE XX ; Start 06/14/18 at 21:00; Stop 06/14/18 at 21:01 TOÑA JUDGE MD Jun 14, 2018 09:44
[2018-06-14] MEDS: AMLODIPINE 5 MG TAB PO SCH (10:01)
[2018-06-14] MEDS: ASPIRIN (EC) 81 MG TAB PO SCH (10:01)
[2018-06-14] MEDS: AMIODARONE 200 MG TAB PO SCH (10:02)
[2018-06-14] MEDS: DOCUSATE SODIUM 100 MG CAP PO SCH ×3 (10:02→21:00)
[2018-06-14] MEDS: MAGNESIUM OXIDE 400 MG TAB PO SCH ×3 (10:02→20:48)
--- NOTE | 2018-06-14 12:19 | CONS ---
Assessment/Plan Assessment/Plan Hospital Course (Demo Recall) History of renal carcinoma status post nephrectomy focally prominent 2.7 cm soft tissue lobulation in the inferior left renal lower pole adjacent to surgical clips, possibly reflecting postsurgical change or recurrent neoplasm. Enhancing lobulated mass in the lower pole left kidney with no extension into the left renal vein. PET/CT OUTPT CT AP- REVIEWED LDH- NOTED echocardiogram- echogenic structure in the right atrium, as well as attached to the tricuspid valve as well as the IVC. Differential includes vegetation, malignancy or thrombus. The IVC is focally distended at the inferior cavoatrial junction, containing an 8 mm metallic focus which may lie within intravenous tumor mass. Evaluation is quite limited in the absence of intravenous contrast. 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 Coarse calcifications in the left breast parenchyma, most likely benign. diagnostic mammography as outpt Acute congestive heart failure exacerbation. Acute sepsis, possible urinary tract infection. Elevated lactate levels. Type 2 diabetes mellitus, uncontrolled. Hyperglycemia. Diabetic neuropathy. Gastroesophageal reflux disease. Possible transient ischemic attacks. Hypertension, uncontrolled Consultation Date/Type/Reason Admit Date/Time Jun 11, 2018 at 11:29 Initial Consult Date 06/12/18 Type of Consult [facility] Requesting Provider: NUBIA TEJEDA MD Date/Time of Note DATE: 06/14/18 TIME: 12:16 24 HR Interval Summary Free Text/Dictation all noted some improvement D/W DR TEJEDA Exam/Review of Systems Exam Vitals Vital Signs Date Temp Pulse Resp B/P (MAP) Pulse Ox O2 O2 Flow FiO2 Time Delivery Rate 06/14/18 78 08:00 06/14/18 16 131/64 97 Nasal 06:00 (86) Cannula 06/14/18 98.2 04:00 06/14/18 3.0 02:48 06/11/18 40 11:31 Intake and Output 06/13/18 06/13/18 06/14/18 1515:00 23:00 07:00 IntakeIntake Total 312.5 ml 590.5 ml 724.0 ml OutputOutput Total 325 ml 600 ml 270 ml BalanceBalance -12.5 ml -9.5 ml 454.0 ml Exam VITAL SIGNS: per chart NECK: Supple. No JVD or lymphadenopathy. CARDIAC EXAM: S1, S2. No added sounds or murmurs. CHEST: clear bilaterally, No added sounds, rales or wheezes ABDOMEN: Soft, nontender. No guarding or rebound. EXTREMITIES: No cyanosis, clubbing or edema. NEUROLOGIC: Generalized weakness. No focal deficit Results Result Diagram: 06/14/18 0402 06/14/18 0402 Results 24hrs Laboratory Tests Test 06/13/18 12:52 06/13/18 17:17 06/13/18 18:59 06/13/18 20:38 Bedside Glucose 323 H 256 H 384 H Activated 36.8 H Partial Thromboplast Time Test 06/13/18 22:40 06/14/18 01:27 06/14/18 02:06 06/14/18 04:02 Bedside Glucose 312 H 179 Activated 149.3 *H Partial Thromboplast Time White Blood Count 10.9 H Red Blood Count 4.35 Hemoglobin 12.2 Hematocrit 38.3 Mean Corpuscular 88.0 Volume Mean Corpuscular 28.0 L Hemoglobin Mean Corpuscular 31.9 L Hemoglobin Concent Red Cell 13.1 Distribution Width Platelet Count 212 Mean Platelet Volume 12.2 H Immature 0.300 Granulocytes % Neutrophils % 60.9 Lymphocytes % 22.6 Monocytes % 9.5 Eosinophils % 6.1 Basophils % 0.6 Nucleated Red Blood 0.0 Cells % Immature 0.030 Granulocytes # Neutrophils # 6.6 Lymphocytes # 2.5 Monocytes # 1.0 H Eosinophils # 0.7 H Basophils # 0.1 Nucleated Red Blood 0.0 Cells # Sodium Level 140 Potassium Level 4.5 Chloride Level 100 Carbon Dioxide Level 33 H Anion Gap 7 Blood Urea Nitrogen 50 H Creatinine 1.59 H Est Glomerular Filtrat Rate mL/min Glucose Level 151 # Calcium Level 9.0 Phosphorus Level 4.8 Magnesium Level 2.7 #H Test 06/14/18 07:18 06/14/18 08:07 Activated 68.6 H Partial Thromboplast Time Bedside Glucose 202 Imaging Imaging PROCEDURE: MR angiography of the abdomen with without contrast. CLINICAL INDICATION: Mass on IVC. TECHNIQUE: MR angiography of the abdomen was performed following the administration of approximately 10 cc of ProHance. 3-D MIP images were provided. COMPARISON: MRI abdomen 06/12/[address] abdomen and pelvis without contrast 06/11/2018. FINDINGS: Inferior vena cava appears to be patent with no thrombus. Previously identified metallic densities in the IVC on the CT scan are not visualized by MRI. The abdominal aorta is normal in caliber with atherosclerotic contour irregul arities. No aneurysmal dilatation or dissection is identified. The celiac trunk and superior mesenteric arteries are patent with no significant ostial stenosis. The inferior mesenteric artery is not well assessed due to motion artifacts. Enhancing lobulated mass in the lower pole left kidney is again noted. Bilateral pleural effusions are present. IMPRESSION: The study is somewhat limited due to breathing artifacts. 1. Patent inferior vena cava with no definite evidence of bland/tumor thrombus. 2. Enhancing lobulated mass in the lower pole left kidney with no extension into the left renal vein. 3. Patent mesenteric and bilateral renal arteries with no high-grade ostial stenosis. Medications Medication Current Medications Aspirin (Halfprin) 81 mg DAILY PO Last administered on 06/14/18 10:01; Admin Dose 81 MG; Start 06/12/18 at 09:00 Atorvastatin Calcium (Lipitor) 40 mg QHS PO Last administered on 06/13/18at 20:35; Admin Dose 40 MG; Start 06/11/18 at 21:00 Docusate Sodium (Colace) 100 mg TID PO Last administered on 06/14/18 10:02; Admin Dose 100 MG; Start 06/11/18 at 21:00 Clonidine (Catapres) 0.1 mg Q6H PRN PO for sbp over 160; Start 06/11/18 at 17:30 Zolpidem Tartrate (Ambien) 5 mg HS PRN PO INSOMNIA Last administered on 06/11/18 22:11; Admin Dose 5 MG; Start 06/11/18 at 17:30 Amlodipine Besylate (Norvasc) 5 mg DAILY PO Last administered on 06/14/18 10:01; Admin Dose 5 MG; Start 06/11/18 at 17:30 Hydralazine HCl (Apresoline) 10 mg Q4H PRN IV sbp>165 Last administered on 06/13/18 00:07; Admin Dose 10 MG; Start 06/11/18 at 17:30 Carvedilol (Coreg) 3.125 mg BID PO Last administered on 06/14/18 10:03; Admin Dose 3.125 MG; Start 06/11/18 at 21:00 Vancomycin HCl (Vanco Iv Per Pharmacy) VANCOMYCIN PER PHARMACY PER PROTOCOL XX ; Start 06/11/18 at 18:30 Diagnostic Test (Pha) (Accu-Chek) 1 ea 02 XX Last administered on 06/14/18at 01:27; Admin Dose 1 EA; Start 06/12/18 at 02:00 Miscellaneous Information 1 ea NOTE XX ; Start 06/11/18 at 21:00 Glucose (Glutose) 15 gm Q15M PRN PO DECREASED GLUCOSE; Start 06/11/18 at 21:00 Glucose (Glutose) 22.5 gm Q15M PRN PO DECREASED GLUCOSE; Start 06/11/18 at 21:00 Dextrose (D50w Syringe) 25 ml Q15M PRN IV DECREASED GLUCOSE; Start 06/11/18 at 21:00 Dextrose (D50w Syringe) 50 ml Q15M PRN IV DECREASED GLUCOSE; Start 06/11/18 at 21:00 Glucagon (Glucagen) 1 mg Q15M PRN IM DECREASED GLUCOSE; Start 06/11/18 at 21:00 Glucose (Glutose) 15 gm Q15M PRN BUCCAL DECREASED GLUCOSE; Start 06/11/18 at 21:00 Vancomycin HCl 250 ml @ 125 mls/hr Q24H IVPB Last administered on 06/13/18 22:41; Admin Dose 125 MLS/HR; Start 06/12/18 at 22:00 Magnesium Oxide (Mag-Ox 400) 500 mg TID PO Last administered on 06/14/18 10:02; Admin Dose 500 MG; Start 06/12/18 at 09:00 Insulin Aspart (Novolog Insulin Pen) NOVOLOG *MODERATE* ALGORITHM WITH MEALS BEDTIME SC Last administered on 06/14/18 08:10; Admin Dose 4 UNIT; Start 06/12/18 at 11:30 Heparin Sodium (Porcine) (Heparin (1000 Units/ml)) 4,000 unit PER PROTOCOL PRN IV aPTT<47 Last administered on 06/13/18 20:40; Admin Dose 4,000 UNIT; Start 06/12/18 at 15:30 Heparin Sodium (Porcine) 250 ml @ 10 mls/hr PER PROTOCOL IV Last administered on 06/14/18 01:06; Admin Dose 13.5 MLS/HR; Start 06/12/18 at 18:30 Haloperidol (Haldol) 5 mg DAILY PRN IM AGITATION/ANXIETY Last administered on 06/13/18 03:43; Admin Dose 5 MG; Start 06/13/18 at 04:00 Amiodarone HCl (Cordarone) 200 mg DAILY PO Last administered on 06/14/18at 10:02; Admin Dose 200 MG; Start 06/13/18 at 13:00 Insulin Glargine (Lantus) 20 units BID SC Last administered on 06/14/18at 08:11; Admin Dose 20 UNITS; Start 06/13/18 at 21:00 Furosemide (Lasix) 40 mg DAILY@0600 PO Last administered on 06/14/18at 05:39; Admin Dose 40 MG; Start 06/14/18 at 06:00 Miscellaneous Information (*Rx Drug Level Order Reminder*) VANCO TROUGH FOR @ 2,100 ONCE ONCE XX ; Start 06/14/18 at 21:00; Stop 06/14/18 at 21:01 JOSÉ FRANZ MD Jun 14, 2018 12:19
--- NOTE | 2018-06-14 12:57 | CONS ---
Consult Date/Type/Reason Admit Date/Time Jun 11, 2018 at 11:29 Initial Consult Date 06/12/18 Type of Consultation: Pulm/CCM Requesting Provider: NUBIA TEJEDA MD Date/Time of Note DATE: 06/14/18 TIME: 12:54 Subjective No events. s/p diuresis. Alert and awake. No c/o Objective Vitals Vital Signs Date Temp Pulse Resp B/P (MAP) Pulse Ox O2 O2 Flow FiO2 Time Delivery Rate 06/14/18 78 08:00 06/14/18 16 131/64 97 Nasal 06:00 (86) Cannula 06/14/18 98.2 04:00 06/14/18 3.0 02:48 06/11/18 40 11:31 Intake and Output 06/13/18 06/13/18 06/14/18 1515:00 23:00 07:00 IntakeIntake Total 312.5 ml 590.5 ml 724.0 ml OutputOutput Total 325 ml 600 ml 270 ml BalanceBalance -12.5 ml -9.5 ml 454.0 ml Exam NECK: Supple. No JVD or lymphadenopathy. CARDIAC: Irreg irreg S1, S2, no added sounds or murmurs. CHEST: Diminished air entry bilaterally with rales. ABDOMEN: Soft, nontender. No guarding or rebound. EXTREMITIES: No cyanosis, clubbing, lumps, edema. NEUROLOGIC: Generalized weakness. No focal deficits. Results/Medications Result Diagram: 06/14/18 0402 06/14/18 0402 Results 24 hrs Laboratory Tests Test 06/13/18 17:17 06/13/18 18:59 06/13/18 20:38 06/13/18 22:40 Bedside Glucose 256 H 384 H 312 H Activated 36.8 H Partial Thromboplast Time Test 06/14/18 01:27 06/14/18 02:06 06/14/18 04:02 06/14/18 07:18 Bedside Glucose 179 Activated 149.3 *H 68.6 H Partial Thromboplast Time White Blood Count 10.9 H Red Blood Count 4.35 Hemoglobin 12.2 Hematocrit 38.3 Mean Corpuscular 88.0 Volume Mean Corpuscular 28.0 L Hemoglobin Mean Corpuscular 31.9 L Hemoglobin Concent Red Cell 13.1 Distribution Width Platelet Count 212 Mean Platelet Volume 12.2 H Immature 0.300 Granulocytes % Neutrophils % 60.9 Lymphocytes % 22.6 Monocytes % 9.5 Eosinophils % 6.1 Basophils % 0.6 Nucleated Red Blood 0.0 Cells % Immature 0.030 Granulocytes # Neutrophils # 6.6 Lymphocytes # 2.5 Monocytes # 1.0 H Eosinophils # 0.7 H Basophils # 0.1 Nucleated Red Blood 0.0 Cells # Sodium Level 140 Potassium Level 4.5 Chloride Level 100 Carbon Dioxide Level 33 H Anion Gap 7 Blood Urea Nitrogen 50 H Creatinine 1.59 H Est Glomerular Filtrat Rate mL/min Glucose Level 151 # Calcium Level 9.0 Phosphorus Level 4.8 Magnesium Level 2.7 #H Test 06/14/18 08:07 Bedside Glucose 202 Home Meds Reported Medications Dulaglutide (Trulicity) 0.75 Mg/0.5 Ml Pen.injctr, 1.75 MG SQ WEEKLY 06/11/18 Insulin Glargine,Hum.rec.anlog (Basaglar Kwikpen U-100) 100 Unit/1 Ml Insuln.pen, 30 UNIT SC DAILY, EA 06/11/18 Ergocalciferol (Vitamin D2) (VITAMIN D2) 2,000 Unit Tablet, 2000 UNIT PO DAILY, TAB 06/11/18 Alendronate Sodium* (Fosamax*) 70 Mg Tablet, 70 MG PO Q7D, #4 TAB 06/11/18 Alendronate Sodium* (Fosamax*) 70 Mg Tablet, 70 MG PO Q7D, #4 TAB 06/11/18 Atenolol* (Atenolol*) 25 Mg Tablet, 25 MG PO BID, #60 TAB 06/11/18 Ferrous Sulfate (Ferrous Sulfate) 325 Mg Tablet.dr, 325 MG PO DAILY 06/11/18 Aspirin* (Aspirin* EC) 81 Mg Tablet.dr, 81 MG PO DAILY, TAB 06/11/18 Empagliflozin (Jardiance) 10 Mg Tablet, 10 MG PO DAILY, TAB 06/11/18 Esomeprazole Mag Trihydrate (Nexium) 20 Mg Capsule.dr, 20 MG PO AC BREAKFAST, #30 CAP 06/11/18 Gabapentin* (Gabapentin*) 100 Mg Capsule, 100 MG PO QHS, #90 CAP 06/11/18 Meloxicam* (Meloxicam*) 7.5 Mg Tablet, 7.5 MG PO DAILY, #30 TAB 06/11/18 Calcium Carbonate/Vitamin D3 (OYSTER SHELL 500 MG + VIT D TB) 1 Each Tablet, 1 EACH PO BID, TAB 06/11/18 Docusate Sodium* (Colace*) 100 Mg Capsule, 100 MG PO TID, #60 CAP 06/11/18 Metformin* (Glucophage*) 500 Mg Tab, 500 MG PO BID, #90 TAB 06/11/18 Atorvastatin* (Atorvastatin*) 40 Mg Tablet, 40 MG PO QHS, #30 TAB 06/11/18 Allopurinol* (Allopurinol*) 100 Mg Tablet, 100 MG PO BID, TAB 06/11/18 Medications Current Medications Aspirin (Halfprin) 81 mg DAILY PO Last administered on 06/14/18at 10:01; Admin Dose 81 MG; Start 06/12/18 at 09:00 Atorvastatin Calcium (Lipitor) 40 mg QHS PO Last administered on 06/13/18at 20:35; Admin Dose 40 MG; Start 06/11/18 at 21:00 Docusate Sodium (Colace) 100 mg TID PO Last administered on 06/14/18at 10:02; Admin Dose 100 MG; Start 06/11/18 at 21:00 Clonidine (Catapres) 0.1 mg Q6H PRN PO for sbp over 160; Start 06/11/18 at 17:30 Zolpidem Tartrate (Ambien) 5 mg HS PRN PO INSOMNIA Last administered on 06/11/18at 22:11; Admin Dose 5 MG; Start 06/11/18 at 17:30 Amlodipine Besylate (Norvasc) 5 mg DAILY PO Last administered on 06/14/18at 10:01; Admin Dose 5 MG; Start 06/11/18 at 17:30 Hydralazine HCl (Apresoline) 10 mg Q4H PRN IV sbp>165 Last administered on 06/13/18at 00:07; Admin Dose 10 MG; Start 06/11/18 at 17:30 Carvedilol (Coreg) 3.125 mg BID PO Last administered on 06/14/18at 10:03; Admin Dose 3.125 MG; Start 06/11/18 at 21:00 Vancomycin HCl (Vanco Iv Per Pharmacy) VANCOMYCIN PER PHARMACY PER PROTOCOL XX ; Start 06/11/18 at 18:30 Diagnostic Test (Pha) (Accu-Chek) 1 ea 02 XX Last administered on 06/14/18at 01:27; Admin Dose 1 EA; Start 06/12/18 at 02:00 Miscellaneous Information 1 ea NOTE XX ; Start 06/11/18 at 21:00 Glucose (Glutose) 15 gm Q15M PRN PO DECREASED GLUCOSE; Start 06/11/18 at 21:00 Glucose (Glutose) 22.5 gm Q15M PRN PO DECREASED GLUCOSE; Start 06/11/18 at 21: 00 Dextrose (D50w Syringe) 25 ml Q15M PRN IV DECREASED GLUCOSE; Start 06/11/18 at 21:00 Dextrose (D50w Syringe) 50 ml Q15M PRN IV DECREASED GLUCOSE; Start 06/11/18 at 21:00 Glucagon (Glucagen) 1 mg Q15M PRN IM DECREASED GLUCOSE; Start 06/11/18 at 21:00 Glucose (Glutose) 15 gm Q15M PRN BUCCAL DECREASED GLUCOSE; Start 06/11/18 at 21:00 Vancomycin HCl 250 ml @ 125 mls/hr Q24H IVPB Last administered on 06/13/18 22:41; Admin Dose 125 MLS/HR; Start 06/12/18 at 22:00 Magnesium Oxide (Mag-Ox 400) 500 mg TID PO Last administered on 06/14/18 10:02; Admin Dose 500 MG; Start 06/12/18 at 09:00 Insulin Aspart (Novolog Insulin Pen) NOVOLOG *MODERATE* ALGORITHM WITH MEALS BEDTIME SC Last administered on 06/14/18 08:10; Admin Dose 4 UNIT; Start 06/12/18 at 11:30 Heparin Sodium (Porcine) (Heparin (1000 Units/ml)) 4,000 unit PER PROTOCOL PRN IV aPTT<47 Last administered on 06/13/18 20:40; Admin Dose 4,000 UNIT; Start 06/12/18 at 15:30 Heparin Sodium (Porcine) 250 ml @ 10 mls/hr PER PROTOCOL IV Last administered on 06/14/18 01:06; Admin Dose 13.5 MLS/HR; Start 06/12/18 at 18:30 Haloperidol (Haldol) 5 mg DAILY PRN IM AGITATION/ANXIETY Last administered on 06/13/18 03:43; Admin Dose 5 MG; Start 06/13/18 at 04:00 Amiodarone HCl (Cordarone) 200 mg DAILY PO Last administered on 06/14/18at 10:02; Admin Dose 200 MG; Start 06/13/18 at 13:00 Insulin Glargine (Lantus) 20 units BID SC Last administered on 06/14/18at 08:11; Admin Dose 20 UNITS; Start 06/13/18 at 21:00 Furosemide (Lasix) 40 mg DAILY@0600 PO Last administered on 06/14/18at 05:39; Admin Dose 40 MG; Start 06/14/18 at 06:00 Miscellaneous Information (*Rx Drug Level Order Reminder*) VANCO TROUGH FOR @ 2,100 ONCE ONCE XX ; Start 06/14/18 at 21:00; Stop 06/14/18 at 21:01 Assessment/Plan Assessment/Plan (Daily) IMP: 1. Hypertensive urgency. 2. Acute decompensate heart failure. 3. History of coronary artery disease. 4. History of renal carcinoma status post partial nephrectomy 5. CKD RECS: 1. Continue diuretics; follow I/O's and renal function 2. Supplemental O2. 3. Amiodarone 4. DVT and GI prophylaxis 5. PT/OT eval Critical care time 40 minutes JAVI CASEY MD Jun 14, 2018 12:57
[2018-06-14] MEDS: ATORVASTATIN 40 MG TAB PO SCH (20:48)
[2018-06-14] MEDS: HEPARIN 5,000 UNIT/1 ML VIAL SC SCH (20:55)
[2018-06-14] MEDS: VANCOMYCIN 1 GM 250 ML IVPB SCH (21:53)
--- NOTE | 2018-06-14 23:19 | PN ---
DATE: 06/14/2018 SUBJECTIVE: Patient was seen today in ICU. She is comfortable, has nasal cannula liters on ox ygen. She is off not nitro drip. Her blood pressure at this time is 159/86, heart rate 110, fluctua ting between AFib and sinus tachycardia with extrasystoles, breathing is 20, saturation is 91% on anjelica al cannula 3 liters. At this point, the patient comfortable, alert and oriented x3 in no distr ess. Denies of any complains of chest pain. Denies of any shortness of breath. Denies of any abdom inal pain, nausea, vomiting. Denies of hesitancy, urgency or pain during urination. Denies of any n umbness of one side more than the other and denies of any complaints at this time. Denies of any new changes. PHYSICAL EXAMINATION: GENERAL: As I said, patient is alert and oriented x3 in mild distress without oxygen nasal cannula. When she started talking, she gets short of breath. HEENT: Atraumatic, normocephalic. Pupils are equal and reactive to light. Extraocular muscles are intact. Nares are clear, no obstruction, no deviation of the septum. Oral cavity normal oral hygien e. Ear canals are clear, no signs of inflammation or infection. Tympanic membranes are intact. NECK: Supple. No JVD, no surgical scars, no lymph nodes palpable over the neck. CHEST: AP contour is within normal limits. Breasts and nipples are normal, no nipple retraction. HEART: S1, S2, regular rate and rhythm with a systolic murmur over the apex with extrasystoles also. LUNGS: Scattered crackles over the bases of the lungs, no expiratory wheezes. ABDOMEN: Soft, positive bowel sounds, no hepatosplenomegaly, no masses palpable over the abdomen and no rebound tenderness. EXTREMITIES: No edema, clubbing or cyanosis of the extremities. She has a Odonnell catheter, has blood y urine. NEUROLOGIC: Cranial nerves II through XII are completely intact and no focal deficits. LABORATORY DATA: Lab results and x-ray results today show mild cardiomegaly and pulmonary vascular c ongestion slightly improved and atherosclerotic calcifications. MRI and MRA abdomen that was done sh ows that the inferior vena cava is patent and no definite evidence of a tumor or thrombus, shows lobu lated mass in the lower pole of the left kidney. No extension to the renal vein and patent mesenteri c and bilateral renal arteries with no high-grade ostial stenosis. Labs today, CBC white blood cells 10.1, hemoglobin 12.2, hematocrit 38.3 and platelet count 212. Chemistry: Sodium 140, potassium 4. 5, BUN 50, creatinine 1.59 and glucose elevated in the 200s and 300s. Magnesium 2.7, a little elevat ed. Coagulation has elevated APTT. ADMITTING DIAGNOSES: Acute hypertensive urgency/emergency, acute atrial fibrillation, acute CHF, ath erosclerotic vascular disease, coronary artery disease, history of renal cancer post-surgery, possibl e renal recurrence of the tumor, type 2 diabetes mellitus, uncontrolled with polyneuropathy and degen erative joint disease with osteoarthritis. The patient at this time, blood pressure is much better c ontrolled. Heart is still in atrial fibrillation fluctuating to sinus tachycardia. After reviewing all the MRIs and the MRAs and speaking with a brake specialist and well service derrick worker, the patient apparently has some unusual calcification in the IVC area, the atrium, which is felt to be not a mass or a tumor , but very, very severe calcification, very unusual situation and at this time, I think concentration should be more over treating the recurrent tumor of the kidney and we will discuss with the family. I had a long discussion with the son and all the daughter in-laws and the grandchildren, all at the room, discussed regarding the treatment plans if they wish or surgical if they also wish and if the p atient wishes. I had a long discussion with the family. We will also discuss with the oncologist an venice the well service derrick worker about the treatment plan and the proper treatment plan for the kidney tumor and we will bring it back to the table with the family and they will make their decision for the treatment plan. At this time, the patient is still unstable cardiac-calzada. Therefore, we will continue treatin g the patient and will follow. Dictated By: NUBIA BREWER/JAYDEN Conf#: [id number] DID#: [id number]
[2018-06-15] VITALS (20 sets, daily range): BP systolic 127–177; BP diastolic 69–90; PULSE 73–104; RESP 14–23
[2018-06-15] MEDS: ACCU-CHEK XX SCH (01:24)
[2018-06-15] MEDS: FUROSEMIDE 40 MG TAB PO SCH (05:32)
[2018-06-15] MEDS: VANCOMYCIN 500 MG (PMX) 100 ML IVPB SCH (05:33)
[2018-06-15] MEDS: ASPIRIN (EC) 81 MG TAB PO SCH (08:59)
[2018-06-15] MEDS: MAGNESIUM OXIDE 400 MG TAB PO SCH ×3 (08:59→21:18)
[2018-06-15] MEDS: AMLODIPINE 5 MG TAB PO SCH (08:59)
[2018-06-15] MEDS: DOCUSATE SODIUM 100 MG CAP PO SCH ×3 (09:00→21:18)
[2018-06-15] MEDS: AMIODARONE 200 MG TAB PO SCH (09:00)
[2018-06-15] MEDS: COLLAGENASE 5 GM (UD JAR) TOP SCH (09:04)
[2018-06-15] MEDS: HEPARIN 5,000 UNIT/1 ML VIAL SC SCH ×2 (09:05→21:44)
[2018-06-15] MEDS: INSULIN GLARGINE [LANTus] (100 UNITS/ML) SYG SC SCH ×2 (09:06→21:44)
[2018-06-15] MEDS: INSULIN ASPART [NOVOLOG] 3 ML PEN SC SCH ×4 (09:07→21:44)
[2018-06-15] MEDS ORDERED: INSULIN ASPART [NOVOLOG] 3 ML PEN SC ONE (12:45)
--- NOTE | 2018-06-15 13:02 | CONS ---
Consult Date/Type/Reason Admit Date/Time Jun 11, 2018 at 11:29 Initial Consult Date 06/12/18 Type of Consultation: Pulm/CCM Requesting Provider: NUBIA TEJEDA MD Date/Time of Note DATE: 06/15/18 TIME: 12:59 Subjective No events. Doing better today and eating. Objective Vitals Vital Signs Date Temp Pulse Resp B/P (MAP) Pulse Ox O2 O2 Flow FiO2 Time Delivery Rate 06/15/18 89 16 149/90 96 Nasal 3.0 10:00 (109) Cannula 06/15/18 98.4 08:00 06/11/18 40 11:31 Intake and Output 06/14/18 06/14/18 06/15/18 1515:00 23:00 07:00 IntakeIntake Total 280 ml 400 ml 100 ml OutputOutput Total 1020 ml 610 ml 405 ml BalanceBalance -740 ml -210 ml -305 ml Exam HEENT: Neck supple; no JVD; no LAD CVS: Irreg, S1 and S2 CHEST: Clear with mildly diminished breath sounds at bases ABD: Soft, NT, + BS EXT: No c/c; tr edema Results/Medications Result Diagram: 06/15/18 0514 06/15/18 0513 Results 24 hrs Laboratory Tests Test 06/14/18 13:26 06/14/18 17:30 06/14/18 20:47 06/14/18 20:55 Activated 67.2 H Partial Thromboplast Time Bedside Glucose 369 H 284 H Vancomycin Level 22.1 *H Trough Test 06/15/18 01:24 06/15/18 05:13 06/15/18 05:14 06/15/18 09:02 Bedside Glucose 247 H 278 H Sodium Level 142 Potassium Level 4.1 Chloride Level 99 Carbon Dioxide Level 36 H Anion Gap 7 Blood Urea Nitrogen 48 H Creatinine 1.62 H Est Glomerular Filtrat Rate mL/min Glucose Level 270 #H Calcium Level 9.6 B-Type Natriuretic 1130 H Peptide White Blood Count 8.1 # Red Blood Count 4.19 L Hemoglobin 11.7 L Hematocrit 37.5 Mean Corpuscular 89.5 Volume Mean Corpuscular 27.9 L Hemoglobin Mean Corpuscular 31.2 L Hemoglobin Concent Red Cell 12.9 Distribution Width Platelet Count 227 Mean Platelet Volume 11.5 H Immature 0.200 Granulocytes % Neutrophils % 57.7 Lymphocytes % 25.8 Monocytes % 8.1 Eosinophils % 7.6 H Basophils % 0.6 Nucleated Red Blood 0.0 Cells % Immature 0.020 Granulocytes # Neutrophils # 4.7 Lymphocytes # 2.1 Monocytes # 0.7 Eosinophils # 0.6 H Basophils # 0.1 Nucleated Red Blood 0.0 Cells # Test 06/15/18 12:27 Bedside Glucose 382 H Home Meds Reported Medications Dulaglutide (Trulicity) 0.75 Mg/0.5 Ml Pen.injctr, 1.75 MG SQ WEEKLY 06/11/18 Insulin Glargine,Hum.rec.anlog (Basaglar Kwikpen U-100) 100 Unit/1 Ml Insuln.pen, 30 UNIT SC DAILY, EA 06/11/18 Ergocalciferol (Vitamin D2) (VITAMIN D2) 2,000 Unit Tablet, 2000 UNIT PO DAILY, TAB 06/11/18 Alendronate Sodium* (Fosamax*) 70 Mg Tablet, 70 MG PO Q7D, #4 TAB 06/11/18 Alendronate Sodium* (Fosamax*) 70 Mg Tablet, 70 MG PO Q7D, #4 TAB 06/11/18 Atenolol* (Atenolol*) 25 Mg Tablet, 25 MG PO BID, #60 TAB 06/11/18 Ferrous Sulfate (Ferrous Sulfate) 325 Mg Tablet.dr, 325 MG PO DAILY 06/11/18 Aspirin* (Aspirin* EC) 81 Mg Tablet.dr, 81 MG PO DAILY, TAB 06/11/18 Empagliflozin (Jardiance) 10 Mg Tablet, 10 MG PO DAILY, TAB 06/11/18 Esomeprazole Mag Trihydrate (Nexium) 20 Mg Capsule.dr, 20 MG PO AC BREAKFAST, #30 CAP 06/11/18 Gabapentin* (Gabapentin*) 100 Mg Capsule, 100 MG PO QHS, #90 CAP 06/11/18 Meloxicam* (Meloxicam*) 7.5 Mg Tablet, 7.5 MG PO DAILY, #30 TAB 06/11/18 Calcium Carbonate/Vitamin D3 (OYSTER SHELL 500 MG + VIT D TB) 1 Each Tablet, 1 EACH PO BID, TAB 06/11/18 Docusate Sodium* (Colace*) 100 Mg Capsule, 100 MG PO TID, #60 CAP 06/11/18 Metformin* (Glucophage*) 500 Mg Tab, 500 MG PO BID, #90 TAB 06/11/18 Atorvastatin* (Atorvastatin*) 40 Mg Tablet, 40 MG PO QHS, #30 TAB 06/11/18 Allopurinol* (Allopurinol*) 100 Mg Tablet, 100 MG PO BID, TAB 06/11/18 Medications Current Medications Aspirin (Halfprin) 81 mg DAILY PO Last administered on 06/15/18at 08:59; Admin Dose 81 MG; Start 06/12/18 at 09:00 Atorvastatin Calcium (Lipitor) 40 mg QHS PO Last administered on 06/14/18at 20:48; Admin Dose 40 MG; Start 06/11/18 at 21:00 Docusate Sodium (Colace) 100 mg TID PO Last administered on 06/14/18at 10:02; Admin Dose 100 MG; Start 06/11/18 at 21:00 Clonidine (Catapres) 0.1 mg Q6H PRN PO for sbp over 160; Start 06/11/18 at 17:30 Zolpidem Tartrate (Ambien) 5 mg HS PRN PO INSOMNIA Last administered on 06/11/18at 22:11; Admin Dose 5 MG; Start 06/11/18 at 17:30 Amlodipine Besylate (Norvasc) 5 mg DAILY PO Last administered on 06/15/18at 08:59; Admin Dose 5 MG; Start 06/11/18 at 17:30 Hydralazine HCl (Apresoline) 10 mg Q4H PRN IV sbp>165 Last administered on 06/13/18at 00:07; Admin Dose 10 MG; Start 06/11/18 at 17:30 Carvedilol (Coreg) 3.125 mg BID PO Last administered on 06/15/18at 09:00; Admin Dose 3.125 MG; Start 06/11/18 at 21:00 Vancomycin HCl (Vanco Iv Per Pharmacy) VANCOMYCIN PER PHARMACY PER PROTOCOL XX ; Start 06/11/18 at 18:30 Diagnostic Test (Pha) (Accu-Chek) 1 ea 02 XX Last administered on 06/15/18at 01:24; Admin Dose 1 EA; Start 06/12/18 at 02:00 Miscellaneous Information 1 ea NOTE XX ; Start 06/11/18 at 21:00 Glucose (Glutose) 15 gm Q15M PRN PO DECREASED GLUCOSE; Start 06/11/18 at 21:00 Glucose (Glutose) 22.5 gm Q15M PRN PO DECREASED GLUCOSE; Start 06/11/18 at 21:00 Dextrose (D50w Syringe) 25 ml Q15M PRN IV DECREASED GLUCOSE; Start 06/11/18 at 21:00 Dextrose (D50w Syringe) 50 ml Q15M PRN IV DECREASED GLUCOSE; Start 06/11/18 at 21:00 Glucagon (Glucagen) 1 mg Q15M PRN IM DECREASED GLUCOSE; Start 06/11/18 at 21:00 Glucose (Glutose) 15 gm Q15M PRN BUCCAL DECREASED GLUCOSE; Start 06/11/18 at 21:00 Magnesium Oxide (Mag-Ox 400) 500 mg TID PO Last administered on 06/15/18 12:29; Admin Dose 500 MG; Start 06/12/18 at 09:00 Insulin Aspart (Novolog Insulin Pen) NOVOLOG *MODERATE* ALGORITHM WITH MEALS BEDTIME SC Last administered on 06/15/18 12:34; Admin Dose 12 UNIT; Start 06/12/18 at 11:30 Haloperidol (Haldol) 5 mg DAILY PRN IM AGITATION/ANXIETY Last administered on 06/13/18 03:43; Admin Dose 5 MG; Start 06/13/18 at 04:00 Amiodarone HCl (Cordarone) 200 mg DAILY PO Last administered on 06/15/18 09: 00; Admin Dose 200 MG; Start 06/13/18 at 13:00 Furosemide (Lasix) 40 mg DAILY@0600 PO Last administered on 06/15/18 05:32; Admin Dose 40 MG; Start 06/14/18 at 06:00 Insulin Glargine (Lantus) 30 units BID SC Last administered on 06/15/18 09:06; Admin Dose 30 UNITS; Start 06/14/18 at 21:00 Heparin Sodium (Porcine) (Heparin (5000 Units/1ml)) 5,000 unit BID SC Last administered on 06/15/18 09:05; Admin Dose 5,000 UNIT; Start 06/14/18 at 21:00 Collagenase (Santyl) 1 applic DAILY TOP Last administered on 06/15/18 09:04; Admin Dose 1 APPLIC; Start 06/15/18 at 09:00 Vancomycin HCl 100 ml @ 100 mls/hr Q24H IVPB Last administered on 06/15/18at 05:33; Admin Dose 100 MLS/HR; Start 06/15/18 at 06:00 Assessment/Plan Assessment/Plan (Daily) IMP: 1. Hypertensive urgency 2. Acute decompensate heart failure 3. History of coronary artery disease 4. History of renal carcinoma status post partial nephrectomy--now with possible recurrence 5. CKD RECS: 1. May reduce diuretics; follow I/O's and renal function 2. Titrate FiO2 3. Amiodarone 4. DVT and GI prophylaxis 5. PT/OT eval/mobilize OOB 6. Await input from Urology and Onc regarding management of left renal mass 40 min cc time Case with family and PMD JAVI CASEY MD Jun 15, 2018 13:02
--- NOTE | 2018-06-15 14:42 | CONS ---
Consult Date/Type/Reason Admit Date/Time Jun 11, 2018 at 11:29 Initial Consult Date 06/12/18 Type of Consultation: Urology Reason for Consultation Left renal mass lower pole Requesting Provider: NUBIA TEJEDA MD Date/Time of Note DATE: 06/15/18 TIME: 14:38 Subjective The patient is feeling better and has now moved to the telemetry floor from the ICU. Objective Vitals Vital Signs Date Temp Pulse Resp B/P (MAP) Pulse Ox O2 O2 Flow FiO2 Time Delivery Rate 06/15/18 92 17 145/79 89 Room Air 3.0 13:00 (101) 06/15/18 98.7 12:00 06/11/18 40 11:31 Intake and Output 06/14/18 06/14/18 06/15/18 1414:59 22:59 06:59 IntakeIntake Total 280 ml 410 ml 100 ml OutputOutput Total 770 ml 820 ml 345 ml BalanceBalance -490 ml -410 ml -245 ml Exam There is no abdominal tenderness or flank tenderness over the left side of her abdomen or flank Results/Medications Result Diagram: 06/15/18 0514 06/15/18 0513 Results 24 hrs Laboratory Tests Test 06/14/18 17:30 06/14/18 20:47 06/14/18 20:55 06/15/18 01:24 Bedside Glucose 369 H 284 H 247 H Vancomycin Level 22.1 *H Trough Test 06/15/18 05:13 06/15/18 05:14 06/15/18 09:02 06/15/18 12:27 Sodium Level 142 Potassium Level 4.1 Chloride Level 99 Carbon Dioxide Level 36 H Anion Gap 7 Blood Urea Nitrogen 48 H Creatinine 1.62 H Est Glomerular Filtrat Rate mL/min Glucose Level 270 #H Calcium Level 9.6 B-Type Natriuretic 1130 H Peptide White Blood Count 8.1 # Red Blood Count 4.19 L Hemoglobin 11.7 L Hematocrit 37.5 Mean Corpuscular 89.5 Volume Mean Corpuscular 27.9 L Hemoglobin Mean Corpuscular 31.2 L Hemoglobin Concent Red Cell 12.9 Distribution Width Platelet Count 227 Mean Platelet Volume 11.5 H Immature 0.200 Granulocytes % Neutrophils % 57.7 Lymphocytes % 25.8 Monocytes % 8.1 Eosinophils % 7.6 H Basophils % 0.6 Nucleated Red Blood 0.0 Cells % Immature 0.020 Granulocytes # Neutrophils # 4.7 Lymphocytes # 2.1 Monocytes # 0.7 Eosinophils # 0.6 H Basophils # 0.1 Nucleated Red Blood 0.0 Cells # Bedside Glucose 278 H 382 H Home Meds Reported Medications Dulaglutide (Trulicity) 0.75 Mg/0.5 Ml Pen.injctr, 1.75 MG SQ WEEKLY 06/11/18 Insulin Glargine,Hum.rec.anlog (Basaglar Kwikpen U-100) 100 Unit/1 Ml Insu ln.pen, 30 UNIT SC DAILY, EA 06/11/18 Ergocalciferol (Vitamin D2) (VITAMIN D2) 2,000 Unit Tablet, 2000 UNIT PO DAILY, TAB 06/11/18 Alendronate Sodium* (Fosamax*) 70 Mg Tablet, 70 MG PO Q7D, #4 TAB 06/11/18 Alendronate Sodium* (Fosamax*) 70 Mg Tablet, 70 MG PO Q7D, #4 TAB 06/11/18 Atenolol* (Atenolol*) 25 Mg Tablet, 25 MG PO BID, #60 TAB 06/11/18 Ferrous Sulfate (Ferrous Sulfate) 325 Mg Tablet.dr, 325 MG PO DAILY 06/11/18 Aspirin* (Aspirin* EC) 81 Mg Tablet.dr, 81 MG PO DAILY, TAB 06/11/18 Empagliflozin (Jardiance) 10 Mg Tablet, 10 MG PO DAILY, TAB 06/11/18 Esomeprazole Mag Trihydrate (Nexium) 20 Mg Capsule.dr, 20 MG PO AC BREAKFAST, #30 CAP 06/11/18 Gabapentin* (Gabapentin*) 100 Mg Capsule, 100 MG PO QHS, #90 CAP 06/11/18 Meloxicam* (Meloxicam*) 7.5 Mg Tablet, 7.5 MG PO DAILY, #30 TAB 06/11/18 Calcium Carbonate/Vitamin D3 (OYSTER SHELL 500 MG + VIT D TB) 1 Each Tablet, 1 EACH PO BID, TAB 06/11/18 Docusate Sodium* (Colace*) 100 Mg Capsule, 100 MG PO TID, #60 CAP 06/11/18 Metformin* (Glucophage*) 500 Mg Tab, 500 MG PO BID, #90 TAB 06/11/18 Atorvastatin* (Atorvastatin*) 40 Mg Tablet, 40 MG PO QHS, #30 TAB 06/11/18 Allopurinol* (Allopurinol*) 100 Mg Tablet, 100 MG PO BID, TAB 06/11/18 Medications Current Medications Aspirin (Halfprin) 81 mg DAILY PO Last administered on 06/15/18at 08:59; Admin Dose 81 MG; Start 06/12/18 at 09:00 Atorvastatin Calcium (Lipitor) 40 mg QHS PO Last administered on 06/14/18at 20:48; Admin Dose 40 MG; Start 06/11/18 at 21:00 Docusate Sodium (Colace) 100 mg TID PO Last administered on 06/14/18at 10:02; Admin Dose 100 MG; Start 06/11/18 at 21:00 Clonidine (Catapres) 0.1 mg Q6H PRN PO for sbp over 160; Start 06/11/18 at 17:30 Zolpidem Tartrate (Ambien) 5 mg HS PRN PO INSOMNIA Last administered on 06/11/18at 22:11; Admin Dose 5 MG; Start 06/11/18 at 17:30 Amlodipine Besylate (Norvasc) 5 mg DAILY PO Last administered on 06/15/18at 08:59; Admin Dose 5 MG; Start 06/11/18 at 17:30 Hydralazine HCl (Apresoline) 10 mg Q4H PRN IV sbp>165 Last administered on 06/13/18at 00:07; Admin Dose 10 MG; Start 06/11/18 at 17:30 Carvedilol (Coreg) 3.125 mg BID PO Last administered on 06/15/18at 09:00; Admin Dose 3.125 MG; Start 06/11/18 at 21:00 Vancomycin HCl (Vanco Iv Per Pharmacy) VANCOMYCIN PER PHARMACY PER PROTOCOL XX ; Start 06/11/18 at 18:30 Diagnostic Test (Pha) (Accu-Chek) 1 ea 02 XX Last administered on 06/15/18at 01:24; Admin Dose 1 EA; Start 06/12/18 at 02:00 Miscellaneous Information 1 ea NOTE XX ; Start 06/11/18 at 21:00 Glucose (Glutose) 15 gm Q15M PRN PO DECREASED GLUCOSE; Start 06/11/18 at 21:00 Glucose (Glutose) 22.5 gm Q15M PRN PO DECREASED GLUCOSE; Start 06/11/18 at 21:00 Dextrose (D50w Syringe) 25 ml Q15M PRN IV DECREASED GLUCOSE; Start 06/11/18 at 21:00 Dextrose (D50w Syringe) 50 ml Q15M PRN IV DECREASED GLUCOSE; Start 06/11/18 at 21:00 Glucagon (Glucagen) 1 mg Q15M PRN IM DECREASED GLUCOSE; Start 06/11/18 at 21:00 Glucose (Glutose) 15 gm Q15M PRN BUCCAL DECREASED GLUCOSE; Start 06/11/18 at 21:00 Magnesium Oxide (Mag-Ox 400) 500 mg TID PO Last administered on 06/15/18 12:29; Admin Dose 500 MG; Start 06/12/18 at 09:00 Insulin Aspart (Novolog Insulin Pen) NOVOLOG *MODERATE* ALGORITHM WITH MEALS BEDTIME SC Last administered on 06/15/18 12:34; Admin Dose 12 UNIT; Start 06/12/18 at 11:30 Haloperidol (Haldol) 5 mg DAILY PRN IM AGITATION/ANXIETY Last administered on 06/13/18 03:43; Admin Dose 5 MG; Start 06/13/18 at 04:00 Amiodarone HCl (Cordarone) 200 mg DAILY PO Last administered on 06/15/18 09:00; Admin Dose 200 MG; Start 06/13/18 at 13:00 Furosemide (Lasix) 40 mg DAILY@0600 PO Last administered on 06/15/18 05:32; Admin Dose 40 MG; Start 06/14/18 at 06:00 Insulin Glargine (Lantus) 30 units BID SC Last administered on 06/15/18 09:06; Admin Dose 30 UNITS; Start 06/14/18 at 21:00 Heparin Sodium (Porcine) (Heparin (5000 Units/1ml)) 5,000 unit BID SC Last administered on 06/15/18 09:05; Admin Dose 5,000 UNIT; Start 06/14/18 at 21:00 Collagenase (Santyl) 1 applic DAILY TOP Last administered on 06/15/18 09:04; Admin Dose 1 APPLIC; Start 06/15/18 at 09:00 Vancomycin HCl 100 ml @ 100 mls/hr Q24H IVPB Last administered on 06/15/18 05:33; Admin Dose 100 MLS/HR; Start 06/15/18 at 06:00 Assessment/Plan Hospital Course (Demo Recall) 82-year-old female came into the emergency room with acute shortness of breath and discomfort over the chest. The patient has been having elevated blood pressure in the 160s over 90s for 1 week and she was very confused. She says she was very forgetful forgetting phone numbers of her children and not feeling right. She was complaining of some heaviness in the head and checking blood pressure which was elevated multiple times. She was taking her medications and she thought it would go away. 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 Upon presentation she underwent CT scan of the abdomen and pelvis and that showed: 1. The IVC is focally distended at the inferior cavoatrial junction, containing an 8 mm metallic focus which may lie within intravenous tumor mass. Evaluation is quite limited in the absence of intravenous contrast. 2. Status post left renal lower pole partial nephrectomy with focally prominent 2.7 cm soft tissue lobulation in the inferior left renal lower pole adjacent to surgical clips, possibly reflecting postsurgical change or recurrent neoplasm. Clinical correlation recommended with consideration for further evaluation with renal protocol multi phase enhanced CT or MRI. 3. Punctate nonobstructive bilateral nephrolithiasis without hydronephrosis. 4. Small - moderate bilateral pleural effusions, worse on the right. 5. Aortic and mitral valve calcifications may reflect valvular stenosis, without sakina cardiomegaly. Coronary artery calcifications. Partially visualized post sternotomy changes. Atherosclerosis. 6. Cholelithiasis versus sludge in the moderately distended gallbladder without sakina evidence of acute cholecystitis. This can be better evaluated with right upper quadrant ultrasound if clinically warranted. 7. 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 Minimal left colonic diverticulosis without evidence of acute diverticulitis. The bowel is unobstructed without evidence of perforation or abscess, and the appendix appears normal. 8. Status post midline infraumbilical ventral abdominal hernia mesh repair with tiny residual or recurrent alecia-incisional hernia noted at the inferior aspect. 9. Minimal chronic degenerative L5-S1 grade 1 anterolisthesis. 10. Multilevel spondylotic changes appear most pronounced at L4-5 and L5-S1, where there is moderate - severe canal and neural foraminal stenosis. This can be better evaluated by MRI L-spine if clinically warranted. 11. Coarse calcifications in the left breast parenchyma, most likely benign. Clinical correlation recommended with consideration for further evaluation with diagnostic mammography MRI of the abdomen and pelvis : Lobulated enhancing mass in the lower left kidney which may represent recurrent or residual neoplasm. Slight extra renal extension is possible but no adenopathy, distant metastatic disease, or definite venous invasion is seen. Distended gallbladder with small stones. Minimal intrahepatic biliary duct prominence without dilated common bile duct or large visible common bile duct stones. Incidental colonic lipoma. Hematuria is most likely related to her being on anticoagulation as well as being confused and pulling out her IV. She may have pulled on her catheter as well As far as the mass in the lower pole of the left kidney we will just observe her. I do not think a surgical intervention is needed at the present. One could regularly follow up that mass with CT scan or PET scan and ultrasound. Her original surgery was done 11 years ago. She is 82 years old now and has other medical problems. Any surgical intervention at the present would carry high risk. Therefore the recommendation from a urological standpoint is to observe her. I did discuss this with ERIK Ortiz MD Jun 15, 2018 14:42
[2018-06-15] MEDS ORDERED: PENDING SANTYL ORDER FOR WOUND CARE XX PRN (15:30)
--- NOTE | 2018-06-15 16:28 | CONS ---
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 It appears patient has not tolerated anticoagulation. Malignancy is still high on the differential -Of note, venous Doppler is negative for DVT -From a CHF standpoint, patient continues to improve, agree with changing Lasix to p.o. -Patient remains in sinus rhythm. Would continue amiodarone. -Findings and plan of care discussed with patient's family bedside Consultation Date/Type/Reason Admit Date/Time Jun 11, 2018 at 11:29 Initial Consult Date 06/11/18 Type of Consult Cardiology Requesting Provider: NUBIA TEJEDA MD Date/Time of Note DATE: 06/15/18 TIME: 16:24 24 HR Interval Summary Free Text/Dictation Shortness of breath is better. Denies chest pain, palpitations or dizziness Exam/Review of Systems Vital Signs Vitals Vital Signs Date Temp Pulse Resp B/P (MAP) Pulse Ox O2 O2 Flow FiO2 Time Delivery Rate 06/15/18 83 16:09 06/15/18 Nasal 3.0 15:30 Cannula 06/15/18 97.7 16 148/78 98 14:47 (101) 06/11/18 40 11:31 Intake and Output 06/14/18 06/14/18 06/15/18 1515:00 23:00 07:00 IntakeIntake Total 280 ml 400 ml 100 ml OutputOutput Total 1020 ml 610 ml 405 ml BalanceBalance -740 ml -210 ml -305 ml Exam Constitutional: alert, oriented (No apparent distress) Respiratory: other (Coarse breath sounds bilaterally, no wheezing) Cardiovascular: regular rate and rhythm (S1-S2 heard) Gastrointestinal: soft, non-tender, bowel sounds Extremities: edema (Trace) Labs Result Diagram: 06/15/18 0514 06/15/18 0513 Results 24hrs Laboratory Tests Test 06/14/18 17:30 06/14/18 20:47 06/14/18 20:55 06/15/18 01:24 Bedside Glucose 369 H 284 H 247 H Vancomycin Level 22.1 *H Trough Test 06/15/18 05:13 06/15/18 05:14 06/15/18 09:02 06/15/18 12:27 Sodium Level 142 Potassium Level 4.1 Chloride Level 99 Carbon Dioxide Level 36 H Anion Gap 7 Blood Urea Nitrogen 48 H Creatinine 1.62 H Est Glomerular Filtrat Rate mL/min Glucose Level 270 #H Calcium Level 9.6 B-Type Natriuretic 1130 H Peptide White Blood Count 8.1 # Red Blood Count 4.19 L Hemoglobin 11.7 L Hematocrit 37.5 Mean Corpuscular 89.5 Volume Mean Corpuscular 27.9 L Hemoglobin Mean Corpuscular 31.2 L Hemoglobin Concent Red Cell 12.9 Distribution Width Platelet Count 227 Mean Platelet Volume 11.5 H Immature 0.200 Granulocytes % Neutrophils % 57.7 Lymphocytes % 25.8 Monocytes % 8.1 Eosinophils % 7.6 H Basophils % 0.6 Nucleated Red Blood 0.0 Cells % Immature 0.020 Granulocytes # Neutrophils # 4.7 Lymphocytes # 2.1 Monocytes # 0.7 Eosinophils # 0.6 H Basophils # 0.1 Nucleated Red Blood 0.0 Cells # Bedside Glucose 278 H 382 H Medications Medications Current Medications Aspirin (Halfprin) 81 mg DAILY PO Last administered on 06/15/18 08:59; Admin Dose 81 MG; Start 06/12/18 at 09:00 Atorvastatin Calcium (Lipitor) 40 mg QHS PO Last administered on 06/14/18at 20:48; Admin Dose 40 MG; Start 06/11/18 at 21:00 Docusate Sodium (Colace) 100 mg TID PO Last administered on 06/14/18at 10:02; Admin Dose 100 MG; Start 06/11/18 at 21:00 Clonidine (Catapres) 0.1 mg Q6H PRN PO for sbp over 160; Start 06/11/18 at 17:30 Zolpidem Tartrate (Ambien) 5 mg HS PRN PO INSOMNIA Last administered on 06/11/18at 22:11; Admin Dose 5 MG; Start 06/11/18 at 17:30 Amlodipine Besylate (Norvasc) 5 mg DAILY PO Last administered on 06/15/18at 08:59; Admin Dose 5 MG; Start 06/11/18 at 17:30 Hydralazine HCl (Apresoline) 10 mg Q4H PRN IV sbp>165 Last administered on 06/13/18at 00:07; Admin Dose 10 MG; Start 06/11/18 at 17:30 Carvedilol (Coreg) 3.125 mg BID PO Last administered on 06/15/18at 09:00; Admin Dose 3.125 MG; Start 06/11/18 at 21:00 Vancomycin HCl (Vanco Iv Per Pharmacy) VANCOMYCIN PER PHARMACY PER PROTOCOL XX ; Start 06/11/18 at 18:30 Diagnostic Test (Pha) (Accu-Chek) 1 ea 02 XX Last administered on 06/15/18at 01:24; Admin Dose 1 EA; Start 06/12/18 at 02:00 Miscellaneous Information 1 ea NOTE XX ; Start 06/11/18 at 21:00 Glucose (Glutose) 15 gm Q15M PRN PO DECREASED GLUCOSE; Start 06/11/18 at 21:00 Glucose (Glutose) 22.5 gm Q15M PRN PO DECREASED GLUCOSE; Start 06/11/18 at 21:00 Dextrose (D50w Syringe) 25 ml Q15M PRN IV DECREASED GLUCOSE; Start 06/11/18 at 21:00 Dextrose (D50w Syringe) 50 ml Q15M PRN IV DECREASED GLUCOSE; Start 06/11/18 at 21:00 Glucagon (Glucagen) 1 mg Q15M PRN IM DECREASED GLUCOSE; Start 06/11/18 at 21:00 Glucose (Glutose) 15 gm Q15M PRN BUCCAL DECREASED GLUCOSE; Start 06/11/18 at 21:00 Magnesium Oxide (Mag-Ox 400) 500 mg TID PO Last administered on 06/15/18at 12:29; Admin Dose 500 MG; Start 06/12/18 at 09:00 Insulin Aspart (Novolog Insulin Pen) NOVOLOG *MODERATE* ALGORITHM WITH MEALS BEDTIME SC Last administered on 06/15/18at 12:34; Admin Dose 12 UNIT; Start 06/12/18 at 11:30 Haloperidol (Haldol) 5 mg DAILY PRN IM AGITATION/ANXIETY Last administered on 06/13/18at 03:43; Admin Dose 5 MG; Start 06/13/18 at 04:00 Amiodarone HCl (Cordarone) 200 mg DAILY PO Last administered on 06/15/18 09:00; Admin Dose 200 MG; Start 06/13/18 at 13:00 Furosemide (Lasix) 40 mg DAILY@0600 PO Last administered on 06/15/18at 05:32; Admin Dose 40 MG; Start 06/14/18 at 06:00 Insulin Glargine (Lantus) 30 units BID SC Last administered on 06/15/18 09:06; Admin Dose 30 UNITS; Start 06/14/18 at 21:00 Heparin Sodium (Porcine) (Heparin (5000 Units/1ml)) 5,000 unit BID SC Last administered on 06/15/18 09:05; Admin Dose 5,000 UNIT; Start 06/14/18 at 21:00 Collagenase (Santyl) 1 applic DAILY TOP Last administered on 06/15/18 09:04; Admin Dose 1 APPLIC; Start 06/15/18 at 09:00 Vancomycin HCl 100 ml @ 100 mls/hr Q24H IVPB Last administered on 06/15/18 05:33; Admin Dose 100 MLS/HR; Start 06/15/18 at 06:00 Miscellaneous Information (Pending Santyl Order For Wound Care) This patient green... PRN PRN XX WOUND CARE; Start 06/15/18 at 15:30 Alex Chávez DO Jun 15, 2018 16:28
[2018-06-15] MEDS: ATORVASTATIN 40 MG TAB PO SCH (21:19)
--- NOTE | 2018-06-15 23:44 | CONS ---
Assessment/Plan Assessment/Plan Hospital Course (Demo Recall) History of renal carcinoma status post nephrectomy focally prominent 2.7 cm soft tissue lobulation in the inferior left renal lower pole adjacent to surgical clips, possibly reflecting postsurgical change or recurrent neoplasm. Enhancing lobulated mass in the lower pole left kidney with no extension into the left renal vein. PET/CT OUTPT CT AP- REVIEWED LDH- NOTED echocardiogram- echogenic structure in the right atrium, as well as attached to the tricuspid valve as well as the IVC. Differential includes vegetation, malignancy or thrombus. The IVC is focally distended at the inferior cavoatrial junction, containing an 8 mm metallic focus which may lie within intravenous tumor mass. Evaluation is quite limited in the absence of intravenous contrast. 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 Coarse calcifications in the left breast parenchyma, most likely benign. diagnostic mammography as outpt Acute congestive heart failure exacerbation. Acute sepsis, possible urinary tract infection. Elevated lactate levels. Type 2 diabetes mellitus, uncontrolled. Hyperglycemia. Diabetic neuropathy. Gastroesophageal reflux disease. Possible transient ischemic attacks. Hypertension, uncontrolled Consultation Date/Type/Reason Admit Date/Time Jun 11, 2018 at 11:29 Initial Consult Date 06/12/18 Type of Consult [facility] Requesting Provider: NUBIA TEJEDA MD Date/Time of Note DATE: 06/15/18 TIME: 23:43 24 HR Interval Summary Free Text/Dictation all noted nad no bleeding Exam/Review of Systems Exam Vitals Vital Signs Date Temp Pulse Resp B/P (MAP) Pulse Ox O2 O2 Flow FiO2 Time Delivery Rate 06/15/18 98 3.0 20:04 06/15/18 74 20:00 06/15/18 98.9 17 161/72 19:44 (101) 06/15/18 Nasal 15:30 Cannula 06/11/18 40 11:31 Intake and Output 06/14/18 06/14/18 06/15/18 1414:59 22:59 06:59 IntakeIntake Total 280 ml 410 ml 100 ml OutputOutput Total 770 ml 820 ml 345 ml BalanceBalance -490 ml -410 ml -245 ml Exam HEENT: Head is atraumatic, normocephalic. Pupils are equal and reactive to light. Extraocular muscles are intact. Nares are clear. No obstruction. No deviation of septum. Oral cavity: Normal oral hygiene. Ear canals are clear. No signs of inflammation or infection. Tympanic membrane is intact. NECK: Supple. No JVD. No surgical scars. No lymph nodes palpable over the neck. CHEST: AP contour is within normal limits. BREASTS: Nipples are normal. No nipple retraction. HEART: S1, S2. Regular rate and rhythm with cardiomegaly and systolic murmur over the apex. LUNGS: Scattered rhonchi and crackles over the bases of the lungs. ABDOMEN: Soft. Positive bowel sounds. No hepatosplenomegaly. No masses palpable over the abdomen and no rebound tenderness. EXTREMITIES: Plus/minus edema of the lower extremities. NEUROLOGIC: Cranial nerves II through XII are completely intact. No focal deficits. Results Result Diagram: 06/15/1814 06/15/18512 Results 24hrs Laboratory Tests Test 06/15/18 01:24 06/15/18 05:13 06/15/18 05:14 06/15/18 09:02 Bedside Glucose 247 H 278 H Sodium Level 142 Potassium Level 4.1 Chloride Level 99 Carbon Dioxide Level 36 H Anion Gap 7 Blood Urea Nitrogen 48 H Creatinine 1.62 H Est Glomerular Filtrat Rate mL/min Glucose Level 270 #H Calcium Level 9.6 B-Type Natriuretic 1130 H Peptide White Blood Count 8.1 # Red Blood Count 4.19 L Hemoglobin 11.7 L Hematocrit 37.5 Mean Corpuscular 89.5 Volume Mean Corpuscular 27.9 L Hemoglobin Mean Corpuscular 31.2 L Hemoglobin Concent Red Cell 12.9 Distribution Width Platelet Count 227 Mean Platelet Volume 11.5 H Immature 0.200 Granulocytes % Neutrophils % 57.7 Lymphocytes % 25.8 Monocytes % 8.1 Eosinophils % 7.6 H Basophils % 0.6 Nucleated Red Blood 0.0 Cells % Immature 0.020 Granulocytes # Neutrophils # 4.7 Lymphocytes # 2.1 Monocytes # 0.7 Eosinophils # 0.6 H Basophils # 0.1 Nucleated Red Blood 0.0 Cells # Test 06/15/18 12:27 06/15/18 16:59 06/15/18 21:16 Bedside Glucose 382 H 309 H 256 H Medications Medication Current Medications Aspirin (Halfprin) 81 mg DAILY PO Last administered on 06/15/18at 08:59; Admin Dose 81 MG; Start 06/12/18 at 09:00 Atorvastatin Calcium (Lipitor) 40 mg QHS PO Last administered on 06/15/18at 21:19; Admin Dose 40 MG; Start 06/11/18 at 21:00 Docusate Sodium (Colace) 100 mg TID PO Last administered on 06/15/18at 21:18; Admin Dose 100 MG; Start 06/11/18 at 21:00 Clonidine (Catapres) 0.1 mg Q6H PRN PO for sbp over 160; Start 06/11/18 at 17:30 Zolpidem Tartrate (Ambien) 5 mg HS PRN PO INSOMNIA Last administered on 06/11/18at 22:11; Admin Dose 5 MG; Start 06/11/18 at 17:30 Amlodipine Besylate (Norvasc) 5 mg DAILY PO Last administered on 06/15/18at 08:59; Admin Dose 5 MG; Start 06/11/18 at 17:30 Hydralazine HCl (Apresoline) 10 mg Q4H PRN IV sbp>165 Last administered on 06/13/18at 00:07; Admin Dose 10 MG; Start 06/11/18 at 17:30 Carvedilol (Coreg) 3.125 mg BID PO Last administered on 06/15/18at 21:19; Admin Dose 3.125 MG; Start 06/11/18 at 21:00 Vancomycin HCl (Vanco Iv Per Pharmacy) VANCOMYCIN PER PHARMACY PER PROTOCOL XX ; Start 06/11/18 at 18:30 Diagnostic Test (Pha) (Accu-Chek) 1 ea 02 XX Last administered on 06/15/18at 01:24; Admin Dose 1 EA; Start 06/12/18 at 02:00 Miscellaneous Information 1 ea NOTE XX ; Start 06/11/18 at 21:00 Glucose (Glutose) 15 gm Q15M PRN PO DECREASED GLUCOSE; Start 06/11/18 at 21:00 Glucose (Glutose) 22.5 gm Q15M PRN PO DECREASED GLUCOSE; Start 06/11/18 at 21:00 Dextrose (D50w Syringe) 25 ml Q15M PRN IV DECREASED GLUCOSE; Start 06/11/18 at 21:00 Dextrose (D50w Syringe) 50 ml Q15M PRN IV DECREASED GLUCOSE; Start 06/11/18 at 21:00 Glucagon (Glucagen) 1 mg Q15M PRN IM DECREASED GLUCOSE; Start 06/11/18 at 21:00 Glucose (Glutose) 15 gm Q15M PRN BUCCAL DECREASED GLUCOSE; Start 06/11/18 at 21:00 Magnesium Oxide (Mag-Ox 400) 500 mg TID PO Last administered on 06/15/18 21:18; Admin Dose 500 MG; Start 06/12/18 at 09:00 Insulin Aspart (Novolog Insulin Pen) NOVOLOG *MODERATE* ALGORITHM WITH MEALS BEDTIME SC Last administered on 06/15/18 21:44; Admin Dose 2 UNIT; Start 06/12/18 at 11:30 Haloperidol (Haldol) 5 mg DAILY PRN IM AGITATION/ANXIETY Last administered on 06/13/18 03:43; Admin Dose 5 MG; Start 06/13/18 at 04:00 Amiodarone HCl (Cordarone) 200 mg DAILY PO Last administered on 06/15/18 09:00; Admin Dose 200 MG; Start 06/13/18 at 13:00 Furosemide (Lasix) 40 mg DAILY@0600 PO Last administered on 06/15/18 05:32; Admin Dose 40 MG; Start 06/14/18 at 06:00 Insulin Glargine (Lantus) 30 units BID SC Last administered on 06/15/18 21:44; Admin Dose 30 UNITS; Start 06/14/18 at 21:00 Heparin Sodium (Porcine) (Heparin (5000 Units/1ml)) 5,000 unit BID SC Last administered on 06/15/18 21:44; Admin Dose 5,000 UNIT; Start 06/14/18 at 21:00 Collagenase (Santyl) 1 applic DAILY TOP Last administered on 06/15/18 09:04; Admin Dose 1 APPLIC; Start 06/15/18 at 09:00 Vancomycin HCl 100 ml @ 100 mls/hr Q24H IVPB Last administered on 06/15/18 05:33; Admin Dose 100 MLS/HR; Start 06/15/18 at 06:00 Miscellaneous Information (Pending Santyl Order For Wound Care) This patient green... PRN PRN XX WOUND CARE; Start 06/15/18 at 15:30 JOSÉ FRANZ MD Jun 15, 2018 23:44
[2018-06-16] VITALS (9 sets, daily range): BP systolic 127–165; BP diastolic 72–82; PULSE 76–115; RESP 16–20
[2018-06-16] MEDS: hydrALAzine 20 MG INJ IV PRN (01:13)
[2018-06-16] MEDS: ACCU-CHEK XX SCH (02:00)
[2018-06-16] MEDS ORDERED: INSULIN ASPART [NOVOLOG] 3 ML PEN SC ONE ×2 (03:00→21:00)
[2018-06-16] MEDS: FUROSEMIDE 40 MG TAB PO SCH (06:10)
[2018-06-16] MEDS: VANCOMYCIN 500 MG (PMX) 100 ML IVPB SCH (06:10)
[2018-06-16] MEDS: INSULIN ASPART [NOVOLOG] 3 ML PEN SC SCH ×4 (08:02→21:16)
[2018-06-16] MEDS: MAGNESIUM OXIDE 400 MG TAB PO SCH ×3 (08:17→20:55)
[2018-06-16] MEDS: COLLAGENASE 5 GM (UD JAR) TOP SCH (08:17)
[2018-06-16] MEDS: AMLODIPINE 5 MG TAB PO SCH (08:17)
[2018-06-16] MEDS: DOCUSATE SODIUM 100 MG CAP PO SCH ×3 (08:17→20:55)
[2018-06-16] MEDS: AMIODARONE 200 MG TAB PO SCH ×2 (08:17→20:56)
[2018-06-16] MEDS: ASPIRIN (EC) 81 MG TAB PO SCH (08:17)
[2018-06-16] MEDS: HEPARIN 5,000 UNIT/1 ML VIAL SC SCH ×2 (08:20→21:16)
--- NOTE | 2018-06-16 10:56 | CONS ---
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 I would increase dose of carvedilol, increase amiodarone to twice daily dosing -Would continue p.o. Lasix, check creatinine tomorrow, if improved, continue current dose. If any increase in creatinine, consider decreasing dose of Lasix -Spoke to patient's primary physician, plans for conservative management at the current time for possible malignancy. -Patient with episodes of bleeding on attempted anticoagulation on 2 separate episodes during this admission. It appears the risks of anticoagulation outweigh the benefits. Would hold off at the current time. Consultation Date/Type/Reason Admit Date/Time Jun 11, 2018 at 11:29 Initial Consult Date 06/11/18 Type of Consult Cardiology Requesting Provider: NUBIA TEJEDA MD Date/Time of Note DATE: 06/16/18 TIME: 10:53 24 HR Interval Summary Free Text/Dictation Denies shortness of breath. Feeling better. No chest pain Exam/Review of Systems Vital Signs Vitals Vital Signs Date Temp Pulse Resp B/P (MAP) Pulse Ox O2 O2 Flow FiO2 Time Delivery Rate 06/16/18 Nasal 2.0 08:37 Cannula 06/16/18 105 08:31 06/16/18 98.3 16 127/78 92 07:20 (94) Intake and Output 06/15/18 06/15/18 06/16/18 1515:00 23:00 07:00 IntakeIntake Total 540 ml 240 ml 440 ml OutputOutput Total 1000 ml 500 ml BalanceBalance -460 ml 240 ml -60 ml Exam Constitutional: alert, oriented (No apparent distress) Respiratory: other (Coarse breath sounds bilaterally, no wheezing) Cardiovascular: irregular rhythm (S1-S2 heard) Gastrointestinal: soft, non-tender, bowel sounds Extremities: edema (Trace) Labs Result Diagram: 06/16/18 0525 06/16/18 0525 Results 24hrs Laboratory Tests Test 06/15/18 12:27 06/15/18 16:59 06/15/18 21:16 06/16/18 02:17 Bedside Glucose 382 H 309 H 256 H 262 H Test 06/16/18 05:25 06/16/18 07:55 White Blood Count 11.9 #H Red Blood Count 4.51 Hemoglobin 12.6 Hematocrit 40.0 Mean Corpuscular 88.7 Volume Mean Corpuscular 27.9 L Hemoglobin Mean Corpuscular 31.5 L Hemoglobin Concent Red Cell 12.6 Distribution Width Platelet Count 256 Mean Platelet Volume 11.7 H Immature 0.300 Granulocytes % Neutrophils % 77.4 H Lymphocytes % 14.3 L Monocytes % 4.9 Eosinophils % 2.5 Basophils % 0.6 Nucleated Red Blood 0.0 Cells % Immature 0.040 H Granulocytes # Neutrophils # 9.2 H Lymphocytes # 1.7 Monocytes # 0.6 Eosinophils # 0.3 Basophils # 0.1 Nucleated Red Blood 0.0 Cells # Sodium Level 140 Potassium Level 4.7 Chloride Level 93 L Carbon Dioxide Level 36 H Anion Gap 11 Blood Urea Nitrogen 56 H Creatinine 1.70 H Est Glomerular Filtrat Rate mL/min Glucose Level 271 H Calcium Level 9.9 B-Type Natriuretic 1450 H Peptide Bedside Glucose 340 H Medications Medications Current Medications Aspirin (Halfprin) 81 mg DAILY PO Last administered on 06/16/18 08:17; Admin Dose 81 MG; Start 06/12/18 at 09:00 Atorvastatin Calcium (Lipitor) 40 mg QHS PO Last administered on 06/15/18at 21:19; Admin Dose 40 MG; Start 06/11/18 at 21:00 Docusate Sodium (Colace) 100 mg TID PO Last administered on 06/16/18at 08:17; Admin Dose 100 MG; Start 06/11/18 at 21:00 Clonidine (Catapres) 0.1 mg Q6H PRN PO for sbp over 160; Start 06/11/18 at 17:30 Zolpidem Tartrate (Ambien) 5 mg HS PRN PO INSOMNIA Last administered on 06/11/18at 22:11; Admin Dose 5 MG; Start 06/11/18 at 17:30 Amlodipine Besylate (Norvasc) 5 mg DAILY PO Last administered on 06/16/18at 08:17; Admin Dose 5 MG; Start 06/11/18 at 17:30 Hydralazine HCl (Apresoline) 10 mg Q4H PRN IV sbp>165 Last administered on 06/16/18 01:13; Admin Dose 10 MG; Start 06/11/18 at 17:30 Carvedilol (Coreg) 3.125 mg BID PO Last administered on 06/16/18 08:18; Admin Dose 3.125 MG; Start 06/11/18 at 21:00 Vancomycin HCl (Vanco Iv Per Pharmacy) VANCOMYCIN PER PHARMACY PER PROTOCOL XX ; Start 06/11/18 at 18:30 Diagnostic Test (Pha) (Accu-Chek) 1 ea 02 XX Last administered on 06/15/18at 01:24; Admin Dose 1 EA; Start 06/12/18 at 02:00 Miscellaneous Information 1 ea NOTE XX ; Start 06/11/18 at 21:00 Glucose (Glutose) 15 gm Q15M PRN PO DECREASED GLUCOSE; Start 06/11/18 at 21:00 Glucose (Glutose) 22.5 gm Q15M PRN PO DECREASED GLUCOSE; Start 06/11/18 at 21:00 Dextrose (D50w Syringe) 25 ml Q15M PRN IV DECREASED GLUCOSE; Start 06/11/18 at 21:00 Dextrose (D50w Syringe) 50 ml Q15M PRN IV DECREASED GLUCOSE; Start 06/11/18 at 21:00 Glucagon (Glucagen) 1 mg Q15M PRN IM DECREASED GLUCOSE; Start 06/11/18 at 21:00 Glucose (Glutose) 15 gm Q15M PRN BUCCAL DECREASED GLUCOSE; Start 06/11/18 at 21:00 Magnesium Oxide (Mag-Ox 400) 500 mg TID PO Last administered on 06/16/18 08:17; Admin Dose 500 MG; Start 06/12/18 at 09:00 Insulin Aspart (Novolog Insulin Pen) NOVOLOG *MODERATE* ALGORITHM WITH MEALS BEDTIME SC Last administered on 06/16/18 08:02; Admin Dose 10 UNIT; Start 06/12/18 at 11:30 Haloperidol (Haldol) 5 mg DAILY PRN IM AGITATION/ANXIETY Last administered on 06/13/18 03:43; Admin Dose 5 MG; Start 06/13/18 at 04:00 Furosemide (Lasix) 40 mg DAILY@0600 PO Last administered on 06/16/18at 06:10; Admin Dose 40 MG; Start 06/14/18 at 06:00 Heparin Sodium (Porcine) (Heparin (5000 Units/1ml)) 5,000 unit BID SC Last administered on 06/16/18at 08:20; Admin Dose 5,000 UNIT; Start 06/14/18 at 21:00 Collagenase (Santyl) 1 applic DAILY TOP Last administered on 06/16/18at 08:17; Admin Dose 1 APPLIC; Start 06/15/18 at 09:00 Vancomycin HCl 100 ml @ 100 mls/hr Q24H IVPB Last administered on 06/16/18at 06:10; Admin Dose 100 MLS/HR; Start 06/15/18 at 06:00 Miscellaneous Information (Pending Santyl Order For Wound Care) This patient green... PRN PRN XX WOUND CARE; Start 06/15/18 at 15:30 Insulin Glargine (Lantus) 30 units DAILY@2000 SC ; Start 06/16/18 at 20:00 Insulin Glargine (Lantus) 40 units AM SC ; Start 06/16/18 at 09:00 Amiodarone HCl (Cordarone) 200 mg BID PO ; Start 06/16/18 at 21:00; Status Alex Thompson DO Jun 16, 2018 10:56
[2018-06-16] MEDS: INSULIN GLARGINE [LANTus] (100 UNITS/ML) SYG SC SCH (11:34)
--- NOTE | 2018-06-16 12:07 | PN ---
DATE: 06/15/2018 HISTORY OF PRESENT ILLNESS: Patient is seen today in the ICU post-episode of hypertensive urgency, p aroxysmal atrial fibrillation, CHF. Patient was admitted to ICU post these symptoms. She was starte d on nitro drip, amiodarone, and controlling blood pressure. She tolerated it well. CT scans were a lso done today. The patient is comfortable, off nitro drip, and no complaints at this time. Still, a little bit of shortness of breath on ambulation. Blood pressure today is 155/81, heart rate is 105 , respiratory rate 18. She is afebrile and her saturation is 93% on 3 liters of oxygen. REVIEW OF SYSTEMS: The patient denies of any chest pain at this time, denies of any headaches. Has a little bit of shortness of breath on minimal exertion and while talking. She denies of any abdomin al pain, nausea, vomiting. She denies of any hesitancy, urgency or pain during urination. She denie s of any numbness or tingling. PHYSICAL EXAMINATION: GENERAL: The vitals as I mentioned above. HEART: S1, S2, regular rate and rhythm at this time with some PVCs. She is in sinus rhythm at this point with some PVCs and cardiomegaly and systolic murmur over the apex. LUNGS: She has crackles over the bases of the lungs, decreased since yesterday. ABDOMEN: Obese. Positive bowel sounds. No hepatosplenomegaly, no masses palpable over the abdomen and no rebound tenderness. EXTREMITIES: No edema, clubbing or cyanosis of the extremities. Urine output is very good, 800, and no blood in the urine at this time. LABORATORY DATA: CBC: White blood cells 8.1, hemoglobin 11.7, hematocrit 37.5, and platelet count 2 27. Chemistry: Her sodium is 142, potassium 4.1, BUN 40, creatinine 1.62, glucose 270, and BMP 1130 . Chest x-ray improvement in CHF and congestion compared to the day before. DIAGNOSIS: Hypertensive urgency, paroxysmal atrial fibrillation, congestive heart failure, kidney ma ss and IVC calcifications, type 2 diabetes mellitus, uncontrolled. I had long discussions with the u rologist with the customer contact specialist and hand cloth folder. Discussed with the family in detail regarding the lesion that she has in the kidney. Patient has had history of a kidney tumor many years ago and had partial nephrectomy by Dr. Abel, and discussing with him and with the family, the wishes are that we do not touch or we do not do any further procedures for the kidney. The patient being 82-year-old and having her heart situation and congestive heart failure and type 2 diabetes mellitus, uncontroll ed, family wished that the patient will be treated only at this time conservatively. No other proced ures to be done at this time or no other surgeries that they wish to be done. Therefore, at this poi nt, the patient being sinus rhythm, I discontinued the IV heparin lock because of constant bleeding o f the patient hematuria and occult blood positive. Therefore, high risk for anticoagulation. The pa tient will be on aspirin. We will continue monitoring the atrial fibrillation and the blood pressure . We will continue treatment and we will follow and, if blood pressure is stable tomorrow, patient w ill be possibly start planning on discharge. Today, she will be transferred to Tele and I will see the patient tomorrow. So, the patient is in stable condition at this time. Dictated By: NUBIA BREWER/JAYDEN Conf#: [id number] DID#: [id number]
--- NOTE | 2018-06-16 13:04 | PN ---
DATE: 06/16/2018 SUBJECTIVE: An 82-year-old female who was admitted for hypertensive urgency, atrial fibrillation, CH F. The patient was seen today very comfortable. She is not in shortness of breath. She has ambulat ed with the nurses a little bit and tolerated it well. She has been having very high blood sugars co nstantly, trying to increase her Lantus and insulin injections for the past 24 hours. The patient to day is comfortable, in no distress. She denies of any chest pain. She denies of any shortness of br eath. She denies of any abdominal pain, nausea, vomiting. She denies of any hesitancy, urgency or p ain during urination. PHYSICAL EXAMINATION: VITAL SIGNS: Today, blood pressure is 130/72, heart rate is 76, respiratory rate is 18, temperature 98.6 and saturating 92% on nasal cannula 2 liters. HEENT: Head is atraumatic, normocephalic. Pupils are equal and reactive to light. Extraocular musc les are intact. Nares are clear. No obstruction. No deviation of septum. CHEST: AP contour are within normal limits. BREASTS: Breasts and nipples are normal. No nipple retraction. HEART: She is in sinus rhythm with a few PVCs with cardiomegaly and systolic murmur over the apex. LUNGS: Very mild crackles over the bases of the lungs, left more than the right. ABDOMEN: Soft. Positive bowel sounds. No hepatosplenomegaly. No masses palpable over the abdomen and no rebound tenderness. EXTREMITIES: No edema, clubbing or cyanosis of the extremities. LABORATORY DATA: Today, CBC is 11.9 white blood cells, hemoglobin is 12.6 and hematocrit is 40, plat elet 256. Chemistry: Sodium 140, potassium 4.7, BUN 56, creatinine 1.7 and glucose 271. BNP is 145 0, so the patient is a little bit in CHF and kidney failure secondary to IV diuretics also. ASSESSMENT AND PLAN: We will continue monitoring the patient, monitoring the blood pressure and BUN and creatinine. We will decrease the diuresis for better control of the kidneys if tolerated and pos sibly plan on discharging tomorrow home with close monitoring of BNP and the blood pressures; therefo re, the plan for today will be discharged tomorrow home with home health, close monitoring if tolerat ed well. Dictated By: NUBIA TEJEDA MD SB/NTS Conf#: [id number] DID#: [id number] CC: ERIK CHILDERS MD;*EndCC*
--- NOTE | 2018-06-16 14:12 | CONS ---
Consult Date/Type/Reason Admit Date/Time Jun 11, 2018 at 11:29 Initial Consult Date 06/12/18 Type of Consult Pulmonary Requesting Provider: NUBIA TEJEDA MD Date/Time of Note DATE: 06/16/18 TIME: 14:11 Subjective Sitting up in chair comfortable no respiratory distress Objective Vital Signs Date Temp Pulse Resp B/P (MAP) Pulse Ox O2 O2 Flow FiO2 Time Delivery Rate 06/16/18 82 12:10 06/16/18 98.6 16 130/72 92 11:03 (91) 06/16/18 Nasal 2.0 08:37 Cannula Intake and Output 06/15/18 06/15/18 06/16/18 1515:00 23:00 07:00 IntakeIntake Total 540 ml 240 ml 440 ml OutputOutput Total 1000 ml 500 ml BalanceBalance -460 ml 240 ml -60 ml Exam GENERAL: VITAL SIGNS: per chart NECK: Supple. No JVD or lymphadenopathy. CARDIAC EXAM: S1, S2. No added sounds or murmurs. CHEST: clear bilaterally, No added sounds, rales or wheezes ABDOMEN: Soft, nontender. No guarding or rebound. EXTREMITIES: No cyanosis, clubbing or edema. NEUROLOGIC: Generalized weakness. No focal deficits. Results/Medications Result Diagram: 06/16/18 0525 06/16/18 0525 Results 24 hrs Laboratory Tests Test 06/15/18 16:59 06/15/18 21:16 06/16/18 02:17 06/16/18 05:25 Bedside Glucose 309 H 256 H 262 H White Blood Count 11.9 #H Red Blood Count 4.51 Hemoglobin 12.6 Hematocrit 40.0 Mean Corpuscular 88.7 Volume Mean Corpuscular 27.9 L Hemoglobin Mean Corpuscular 31.5 L Hemoglobin Concent Red Cell 12.6 Distribution Width Platelet Count 256 Mean Platelet Volume 11.7 H Immature 0.300 Granulocytes % Neutrophils % 77.4 H Lymphocytes % 14.3 L Monocytes % 4.9 Eosinophils % 2.5 Basophils % 0.6 Nucleated Red Blood 0.0 Cells % Immature 0.040 H Granulocytes # Neutrophils # 9.2 H Lymphocytes # 1.7 Monocytes # 0.6 Eosinophils # 0.3 Basophils # 0.1 Nucleated Red Blood 0.0 Cells # Sodium Level 140 Potassium Level 4.7 Chloride Level 93 L Carbon Dioxide Level 36 H Anion Gap 11 Blood Urea Nitrogen 56 H Creatinine 1.70 H Est Glomerular Filtrat Rate mL/min Glucose Level 271 H Calcium Level 9.9 B-Type Natriuretic 1450 H Peptide Test 06/16/18 07:55 06/16/18 11:24 Bedside Glucose 340 H 273 H Medications Current Medications Aspirin (Halfprin) 81 mg DAILY PO Last administered on 06/16/18 08:17; Admin Dose 81 MG; Start 06/12/18 at 09:00 Atorvastatin Calcium (Lipitor) 40 mg QHS PO Last administered on 06/15/18 21:19; Admin Dose 40 MG; Start 06/11/18 at 21:00 Docusate Sodium (Colace) 100 mg TID PO Last administered on 06/16/18 08:17; Admin Dose 100 MG; Start 06/11/18 at 21:00 Clonidine (Catapres) 0.1 mg Q6H PRN PO for sbp over 160; Start 06/11/18 at 17:30 Zolpidem Tartrate (Ambien) 5 mg HS PRN PO INSOMNIA Last administered on 06/11/18at 22:11; Admin Dose 5 MG; Start 06/11/18 at 17:30 Amlodipine Besylate (Norvasc) 5 mg DAILY PO Last administered on 06/16/18 08:17; Admin Dose 5 MG; Start 06/11/18 at 17:30 Hydralazine HCl (Apresoline) 10 mg Q4H PRN IV sbp>165 Last administered on 06/16/18at 01:13; Admin Dose 10 MG; Start 06/11/18 at 17:30 Diagnostic Test (Pha) (Accu-Chek) 1 ea 02 XX Last administered on 06/15/18at 01:24; Admin Dose 1 EA; Start 06/12/18 at 02:00 Miscellaneous Information 1 ea NOTE XX ; Start 06/11/18 at 21:00 Glucose (Glutose) 15 gm Q15M PRN PO DECREASED GLUCOSE; Start 06/11/18 at 21:00 Glucose (Glutose) 22.5 gm Q15M PRN PO DECREASED GLUCOSE; Start 06/11/18 at 21:00 Dextrose (D50w Syringe) 25 ml Q15M PRN IV DECREASED GLUCOSE; Start 06/11/18 at 21:00 Dextrose (D50w Syringe) 50 ml Q15M PRN IV DECREASED GLUCOSE; Start 06/11/18 at 21:00 Glucagon (Glucagen) 1 mg Q15M PRN IM DECREASED GLUCOSE; Start 06/11/18 at 21:00 Glucose (Glutose) 15 gm Q15M PRN BUCCAL DECREASED GLUCOSE; Start 06/11/18 at 21:00 Magnesium Oxide (Mag-Ox 400) 500 mg TID PO Last administered on 06/16/18 08:17; Admin Dose 500 MG; Start 06/12/18 at 09:00 Insulin Aspart (Novolog Insulin Pen) NOVOLOG *MODERATE* ALGORITHM WITH MEALS BEDTIME SC Last administered on 06/16/18at 11:35; Admin Dose 8 UNIT; Start 06/12/18 at 11:30 Haloperidol (Haldol) 5 mg DAILY PRN IM AGITATION/ANXIETY Last administered on 06/13/18at 03:43; Admin Dose 5 MG; Start 06/13/18 at 04:00 Furosemide (Lasix) 40 mg DAILY@0600 PO Last administered on 06/16/18at 06:10; Admin Dose 40 MG; Start 06/14/18 at 06:00 Heparin Sodium (Porcine) (Heparin (5000 Units/1ml)) 5,000 unit BID SC Last administered on 06/16/18 08:20; Admin Dose 5,000 UNIT; Start 06/14/18 at 21:00 Collagenase (Santyl) 1 applic DAILY TOP Last administered on 06/16/18at 08:17; Admin Dose 1 APPLIC; Start 06/15/18 at 09:00 Miscellaneous Information (Pending Santyl Order For Wound Care) This patient green... PRN PRN XX WOUND CARE; Start 06/15/18 at 15:30 Insulin Glargine (Lantus) 30 units DAILY@2000 SC ; Start 06/16/18 at 20:00 Insulin Glargine (Lantus) 40 units AM SC Last administered on 06/16/18at 11:34; Admin Dose 40 UNITS; Start 06/16/18 at 09:00 Amiodarone HCl (Cordarone) 200 mg BID PO ; Start 06/16/18 at 21:00 Carvedilol (Coreg) 6.25 mg BID PO ; Start 06/16/18 at 21:00 Cephalexin (Keflex) 250 mg TID PO ; Start 06/17/18 at 09:00 Assessment/Plan Hospital Course (Demo Recall) IMP: 1. Hypertensive urgency 2. Acute decompensate heart failure 3. History of coronary artery disease 4. History of renal carcinoma status post partial nephrectomy--now with possible recurrence 5. CKD RECS: 1. May reduce diuretics; follow I/O's and renal function 2. Titrate FiO2 3. Amiodarone 4. DVT and GI prophylaxis 5. PT/OT eval/mobilize OOB 6. Await input from Urology and Onc regarding management of left renal mass PÉREZ MAN MD, [facility] Jun 16, 2018 14:12
[2018-06-16] MEDS ORDERED: INSULIN GLARGINE [LANTus] (100 UNITS/ML) SYG SC SCH (20:00)
--- NOTE | 2018-06-16 20:04 | CONS ---
Consult Date/Type/Reason Admit Date/Time Jun 11, 2018 at 11:29 Initial Consult Date 06/12/18 Type of Consultation: Urology Reason for Consultation Hematuria Requesting Provider: NUBIA TEJEDA MD Date/Time of Note DATE: 06/16/18 TIME: 20:01 Subjective The patient appears to be comfortable and has no pain. She does have hematuria in the Odonnell catheter and that appeared after she was ambulating with the physical therapy today Objective Vitals Vital Signs Date Temp Pulse Resp B/P (MAP) Pulse Ox O2 O2 Flow FiO2 Time Delivery Rate 06/16/18 97 16:10 06/16/18 98.5 16 147/82 96 15:05 (103) 06/16/18 Nasal 2.0 08:37 Cannula Intake and Output 06/15/18 06/15/18 06/16/18 1515:00 23:00 07:00 IntakeIntake Total 540 ml 240 ml 440 ml OutputOutput Total 1000 ml 500 ml BalanceBalance -460 ml 240 ml -60 ml Exam The abdomen is soft and there is no suprapubic tenderness or flank tenderness. The Odonnell catheter is draining bloody urine. Results/Medications Result Diagram: 06/16/18 0525 06/16/18 0525 Results 24 hrs Laboratory Tests Test 06/15/18 21:16 06/16/18 02:17 06/16/18 05:25 06/16/18 07:55 Bedside Glucose 256 H 262 H 340 H White Blood Count 11.9 #H Red Blood Count 4.51 Hemoglobin 12.6 Hematocrit 40.0 Mean Corpuscular 88.7 Volume Mean Corpuscular 27.9 L Hemoglobin Mean Corpuscular 31.5 L Hemoglobin Concent Red Cell 12.6 Distribution Width Platelet Count 256 Mean Platelet Volume 11.7 H Immature 0.300 Granulocytes % Neutrophils % 77.4 H Lymphocytes % 14.3 L Monocytes % 4.9 Eosinophils % 2.5 Basophils % 0.6 Nucleated Red Blood 0.0 Cells % Immature 0.040 H Granulocytes # Neutrophils # 9.2 H Lymphocytes # 1.7 Monocytes # 0.6 Eosinophils # 0.3 Basophils # 0.1 Nucleated Red Blood 0.0 Cells # Sodium Level 140 Potassium Level 4.7 Chloride Level 93 L Carbon Dioxide Level 36 H Anion Gap 11 Blood Urea Nitrogen 56 H Creatinine 1.70 H Est Glomerular Filtrat Rate mL/min Glucose Level 271 H Calcium Level 9.9 B-Type Natriuretic 1450 H Peptide Test 06/16/18 11:24 06/16/18 17:06 Bedside Glucose 273 H 378 H Home Meds Reported Medications Dulaglutide (Trulicity) 0.75 Mg/0.5 Ml Pen.injctr, 1.75 MG SQ WEEKLY 06/11/18 Insulin Glargine,Hum.rec.anlog (Basaglar Kwikpen U-100) 100 Unit/1 Ml Insuln.pen, 30 UNIT SC DAILY, EA 06/11/18 Ergocalciferol (Vitamin D2) (VITAMIN D2) 2,000 Unit Tablet, 2000 UNIT PO DAILY, TAB 06/11/18 Alendronate Sodium* (Fosamax*) 70 Mg Tablet, 70 MG PO Q7D, #4 TAB 06/11/18 Alendronate Sodium* (Fosamax*) 70 Mg Tablet, 70 MG PO Q7D, #4 TAB 06/11/18 Atenolol* (Atenolol*) 25 Mg Tablet, 25 MG PO BID, #60 TAB 06/11/18 Ferrous Sulfate (Ferrous Sulfate) 325 Mg Tablet.dr, 325 MG PO DAILY 06/11/18 Aspirin* (Aspirin* EC) 81 Mg Tablet.dr, 81 MG PO DAILY, TAB 06/11/18 Empagliflozin (Jardiance) 10 Mg Tablet, 10 MG PO DAILY, TAB 06/11/18 Esomeprazole Mag Trihydrate (Nexium) 20 Mg Capsule.dr, 20 MG PO AC BREAKFAST, #30 CAP 06/11/18 Gabapentin* (Gabapentin*) 100 Mg Capsule, 100 MG PO QHS, #90 CAP 06/11/18 Meloxicam* (Meloxicam*) 7.5 Mg Tablet, 7.5 MG PO DAILY, #30 TAB 06/11/18 Calcium Carbonate/Vitamin D3 (OYSTER SHELL 500 MG + VIT D TB) 1 Each Tablet, 1 EACH PO BID, TAB 06/11/18 Docusate Sodium* (Colace*) 100 Mg Capsule, 100 MG PO TID, #60 CAP 06/11/18 Metformin* (Glucophage*) 500 Mg Tab, 500 MG PO BID, #90 TAB 06/11/18 Atorvastatin* (Atorvastatin*) 40 Mg Tablet, 40 MG PO QHS, #30 TAB 06/11/18 Allopurinol* (Allopurinol*) 100 Mg Tablet, 100 MG PO BID, TAB 06/11/18 Medications Current Medications Aspirin (Halfprin) 81 mg DAILY PO Last administered on 06/16/18at 08:17; Admin Dose 81 MG; Start 06/12/18 at 09:00 Atorvastatin Calcium (Lipitor) 40 mg QHS PO Last administered on 06/15/18at 21:19; Admin Dose 40 MG; Start 06/11/18 at 21:00 Docusate Sodium (Colace) 100 mg TID PO Last administered on 06/16/18at 14:20; Admin Dose 100 MG; Start 06/11/18 at 21:00 Clonidine (Catapres) 0.1 mg Q6H PRN PO for sbp over 160; Start 06/11/18 at 17:30 Zolpidem Tartrate (Ambien) 5 mg HS PRN PO INSOMNIA Last administered on 06/11/18at 22:11; Admin Dose 5 MG; Start 06/11/18 at 17:30 Amlodipine Besylate (Norvasc) 5 mg DAILY PO Last administered on 06/16/18at 08:17; Admin Dose 5 MG; Start 06/11/18 at 17:30 Hydralazine HCl (Apresoline) 10 mg Q4H PRN IV sbp>165 Last administered on 06/16/18at 01:13; Admin Dose 10 MG; Start 06/11/18 at 17:30 Diagnostic Test (Pha) (Accu-Chek) 1 ea 02 XX Last administered on 06/15/18at 01:24; Admin Dose 1 EA; Start 06/12/18 at 02:00 Miscellaneous Information 1 ea NOTE XX ; Start 06/11/18 at 21:00 Glucose (Glutose) 15 gm Q15M PRN PO DECREASED GLUCOSE; Start 06/11/18 at 21:00 Glucose (Glutose) 22.5 gm Q15M PRN PO DECREASED GLUCOSE; Start 06/11/18 at 21:00 Dextrose (D50w Syringe) 25 ml Q15M PRN IV DECREASED GLUCOSE; Start 06/11/18 at 21:00 Dextrose (D50w Syringe) 50 ml Q15M PRN IV DECREASED GLUCOSE; Start 06/11/18 at 21:00 Glucagon (Glucagen) 1 mg Q15M PRN IM DECREASED GLUCOSE; Start 06/11/18 at 21:00 Glucose (Glutose) 15 gm Q15M PRN BUCCAL DECREASED GLUCOSE; Start 06/11/18 at 21:00 Magnesium Oxide (Mag-Ox 400) 500 mg TID PO Last administered on 06/16/18at 14:20; Admin Dose 500 MG; Start 06/12/18 at 09:00 Insulin Aspart (Novolog Insulin Pen) NOVOLOG *MODERATE* ALGORITHM WITH MEALS BEDTIME SC Last administered on 06/16/18 17:12; Admin Dose 12 UNIT; Start 06/12/18 at 11:30 Haloperidol (Haldol) 5 mg DAILY PRN IM AGITATION/ANXIETY Last administered on 06/13/18 03:43; Admin Dose 5 MG; Start 06/13/18 at 04:00 Furosemide (Lasix) 40 mg DAILY@0600 PO Last administered on 06/16/18 06:10; Admin Dose 40 MG; Start 06/14/18 at 06:00 Heparin Sodium (Porcine) (Heparin (5000 Units/1ml)) 5,000 unit BID SC Last administered on 06/16/18 08:20; Admin Dose 5,000 UNIT; Start 06/14/18 at 21:00 Collagenase (Santyl) 1 applic DAILY TOP Last administered on 06/16/18 08:17; Admin Dose 1 APPLIC; Start 06/15/18 at 09:00 Miscellaneous Information (Pending Santyl Order For Wound Care) This patient green... PRN PRN XX WOUND CARE; Start 06/15/18 at 15:30 Insulin Glargine (Lantus) 30 units DAILY@2000 SC ; Start 06/16/18 at 20:00 Insulin Glargine (Lantus) 40 units AM SC Last administered on 06/16/18at 11:34; Admin Dose 40 UNITS; Start 06/16/18 at 09:00 Amiodarone HCl (Cordarone) 200 mg BID PO ; Start 06/16/18 at 21:00 Carvedilol (Coreg) 6.25 mg BID PO ; Start 06/16/18 at 21:00 Cephalexin (Keflex) 250 mg TID PO ; Start 06/17/18 at 09:00 Assessment/Plan Hospital Course (Demo Recall) 82-year-old female came into the emergency room with acute shortness of breath and discomfort over the chest. The patient has been having elevated blood pressure in the 160s over 90s for 1 week and she was very confused. She says she was very forgetful forgetting phone numbers of her children and not feeling right. She was complaining of some heaviness in the head and checking blood pressure which was elevated multiple times. She was taking her medications and she thought it would go away. 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 Upon presentation she underwent CT scan of the abdomen and pelvis and that showed: 1. The IVC is focally distended at the inferior cavoatrial junction, containing an 8 mm metallic focus which may lie within intravenous tumor mass. Evaluation is quite limited in the absence of intravenous contrast. 2. Status post left renal lower pole partial nephrectomy with focally prominent 2.7 cm soft tissue lobulation in the inferior left renal lower pole adjacent to surgical clips, possibly reflecting postsurgical change or recurrent neoplasm. Clinical correlation recommended with consideration for further evaluation with renal protocol multi phase enhanced CT or MRI. 3. Punctate nonobstructive bilateral nephrolithiasis without hydronephrosis. 4. Small - moderate bilateral pleural effusions, worse on the right. 5. Aortic and mitral valve calcifications may reflect valvular stenosis, without sakina cardiomegaly. Coronary artery calcifications. Partially visualized post sternotomy changes. Atherosclerosis. 6. Cholelithiasis versus sludge in the moderately distended gallbladder without sakina evidence of acute cholecystitis. This can be better evaluated with right upper quadrant ultrasound if clinically warranted. 7. 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 Minimal left colonic diverticulosis without evidence of acute diverticulitis. The bowel is unobstructed without evidence of perforation or abscess, and the appendix appears normal. 8. Status post midline infraumbilical ventral abdominal hernia mesh repair with tiny residual or recurrent alecia-incisional hernia noted at the inferior aspect. 9. Minimal chronic degenerative L5-S1 grade 1 anterolisthesis. 10. Multilevel spondylotic changes appear most pronounced at L4-5 and L5-S1, where there is moderate - severe canal and neural foraminal stenosis. This can be better evaluated by MRI L-spine if clinically warranted. 11. Coarse calcifications in the left breast parenchyma, most likely benign. Clinical correlation recommended with consideration for further evaluation with diagnostic mammography MRI of the abdomen and pelvis : Lobulated enhancing mass in the lower left kidney which may represent recurrent or residual neoplasm. Slight extra renal extension is possible but no adenopathy, distant metastatic disease, or definite venous invasion is seen. Distended gallbladder with small stones. Minimal intrahepatic biliary duct prominence without dilated common bile duct or large visible common bile duct stones. Incidental colonic lipoma. Hematuria is most likely related to her ambulating today and may be pulling on the catheter. I will order a urine culture and also PTT in a.m. As far as the mass in the lower pole of the left kidney we will just observe her. I do not think a surgical intervention is needed at the present. One could regularly follow up that mass with CT scan or PET scan and ultrasound. Her original surgery was done 11 years ago. She is 82 years old now and has other medical problems. Any surgical intervention at the present would carry high risk. Therefore the recommendation from a urological standpoint is to observe her. I did discuss this with ERIK Ortiz MD Jun 16, 2018 20:04
[2018-06-16] MEDS: ATORVASTATIN 40 MG TAB PO SCH (20:55)
--- NOTE | 2018-06-16 23:11 | CONS ---
Assessment/Plan Assessment/Plan Hospital Course (Demo Recall) History of renal carcinoma status post nephrectomy focally prominent 2.7 cm soft tissue lobulation in the inferior left renal lower pole adjacent to surgical clips, possibly reflecting postsurgical change or recurrent neoplasm. Enhancing lobulated mass in the lower pole left kidney with no extension into the left renal vein. PET/CT OUTPT CT [facility]- REVIEWED [facility]- NOTED echocardiogram- echogenic structure in the right atrium, as well as attached to the tricuspid valve as well as the IVC. Differential includes vegetation, malignancy or thrombus. The IVC is focally distended at the inferior cavoatrial junction, containing an 8 mm metallic focus which may lie within intravenous tumor mass. Evaluation is quite limited in the absence of intravenous contrast. 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 Coarse calcifications in the left breast parenchyma, most likely benign. diagnostic mammography as outpt Acute congestive heart failure exacerbation. Acute sepsis, possible urinary tract infection. Elevated lactate levels. Type 2 diabetes mellitus, uncontrolled. Hyperglycemia. Diabetic neuropathy. Gastroesophageal reflux disease. Possible transient ischemic attacks. Hypertension, uncontrolled Consultation Date/Type/Reason Admit Date/Time Jun 11, 2018 at 11:29 Initial Consult Date 06/12/18 Type of Consult [facility] Requesting Provider: NUBIA TEJEDA MD Date/Time of Note DATE: 06/16/18 TIME: 23:10 24 HR Interval Summary Free Text/Dictation all noted NAD D/W DR TORRES Exam/Review of Systems Exam Vitals Vital Signs Date Temp Pulse Resp B/P (MAP) Pulse Ox O2 O2 Flow FiO2 Time Delivery Rate 06/16/18 98.7 82 20 165/80 93 20:00 (108) 06/16/18 Nasal 2.0 08:37 Cannula Intake and Output 06/15/18 06/15/18 06/16/18 1515:00 23:00 07:00 IntakeIntake Total 540 ml 240 ml 440 ml OutputOutput Total 1000 ml 500 ml BalanceBalance -460 ml 240 ml -60 ml Exam NECK: Supple. No JVD or lymphadenopathy. CARDIAC EXAM: S1, S2. No added sounds or murmurs. CHEST: clear bilaterally, No added sounds, rales or wheezes ABDOMEN: Soft, nontender. No guarding or rebound. EXTREMITIES: No cyanosis, clubbing or edema. NEUROLOGIC: Generalized weakness. No focal deficits. Results Result Diagram: 06/16/18 0525 06/16/18 0525 Results 24hrs Laboratory Tests Test 06/16/18 02:17 06/16/18 05:25 06/16/18 07:55 06/16/18 11:24 Bedside Glucose 262 H 340 H 273 H White Blood Count 11.9 #H Red Blood Count 4.51 Hemoglobin 12.6 Hematocrit 40.0 Mean Corpuscular 88.7 Volume Mean Corpuscular 27.9 L Hemoglobin Mean Corpuscular 31.5 L Hemoglobin Concent Red Cell 12.6 Distribution Width Platelet Count 256 Mean Platelet Volume 11.7 H Immature 0.300 Granulocytes % Neutrophils % 77.4 H Lymphocytes % 14.3 L Monocytes % 4.9 Eosinophils % 2.5 Basophils % 0.6 Nucleated Red Blood 0.0 Cells % Immature 0.040 H Granulocytes # Neutrophils # 9.2 H Lymphocytes # 1.7 Monocytes # 0.6 Eosinophils # 0.3 Basophils # 0.1 Nucleated Red Blood 0.0 Cells # Sodium Level 140 Potassium Level 4.7 Chloride Level 93 L Carbon Dioxide Level 36 H Anion Gap 11 Blood Urea Nitrogen 56 H Creatinine 1.70 H Est Glomerular Filtrat Rate mL/min Glucose Level 271 H Calcium Level 9.9 B-Type Natriuretic 1450 H Peptide Test 06/16/18 17:06 06/16/18 20:47 Bedside Glucose 378 H 365 H Medications Medication Current Medications Aspirin (Halfprin) 81 mg DAILY PO Last administered on 06/16/18at 08:17; Admin Dose 81 MG; Start 06/12/18 at 09:00 Atorvastatin Calcium (Lipitor) 40 mg QHS PO Last administered on 06/16/18at 20:55; Admin Dose 40 MG; Start 06/11/18 at 21:00 Docusate Sodium (Colace) 100 mg TID PO Last administered on 06/16/18at 20:55; Admin Dose 100 MG; Start 06/11/18 at 21:00 Clonidine (Catapres) 0.1 mg Q6H PRN PO for sbp over 160; Start 06/11/18 at 17:30 Zolpidem Tartrate (Ambien) 5 mg HS PRN PO INSOMNIA Last administered on 06/11/18at 22:11; Admin Dose 5 MG; Start 06/11/18 at 17:30 Amlodipine Besylate (Norvasc) 5 mg DAILY PO Last administered on 06/16/18 08:17; Admin Dose 5 MG; Start 06/11/18 at 17:30 Hydralazine HCl (Apresoline) 10 mg Q4H PRN IV sbp>165 Last administered on 06/16/18at 01:13; Admin Dose 10 MG; Start 06/11/18 at 17:30 Diagnostic Test (Pha) (Accu-Chek) 1 ea 02 XX Last administered on 06/15/18at 01:24; Admin Dose 1 EA; Start 06/12/18 at 02:00 Miscellaneous Information 1 ea NOTE XX ; Start 06/11/18 at 21:00 Glucose (Glutose) 15 gm Q15M PRN PO DECREASED GLUCOSE; Start 06/11/18 at 21:00 Glucose (Glutose) 22.5 gm Q15M PRN PO DECREASED GLUCOSE; Start 06/11/18 at 21:00 Dextrose (D50w Syringe) 25 ml Q15M PRN IV DECREASED GLUCOSE; Start 06/11/18 at 21:00 Dextrose (D50w Syringe) 50 ml Q15M PRN IV DECREASED GLUCOSE; Start 06/11/18 at 21:00 Glucagon (Glucagen) 1 mg Q15M PRN IM DECREASED GLUCOSE; Start 06/11/18 at 21:00 Glucose (Glutose) 15 gm Q15M PRN BUCCAL DECREASED GLUCOSE; Start 06/11/18 at 21:00 Magnesium Oxide (Mag-Ox 400) 500 mg TID PO Last administered on 06/16/18at 20:55; Admin Dose 500 MG; Start 06/12/18 at 09:00 Insulin Aspart (Novolog Insulin Pen) NOVOLOG *MODERATE* ALGORITHM WITH MEALS BEDTIME SC Last administered on 06/16/18at 21:16; Admin Dose 4 UNIT; Start 06/12/18 at 11:30 Haloperidol (Haldol) 5 mg DAILY PRN IM AGITATION/ANXIETY Last administered on 06/13/18at 03:43; Admin Dose 5 MG; Start 06/13/18 at 04:00 Furosemide (Lasix) 40 mg DAILY@0600 PO Last administered on 06/16/18at 06:10; Admin Dose 40 MG; Start 06/14/18 at 06:00 Heparin Sodium (Porcine) (Heparin (5000 Units/1ml)) 5,000 unit BID SC Last administered on 06/16/18 21:16; Admin Dose 5,000 UNIT; Start 06/14/18 at 21:00 Collagenase (Santyl) 1 applic DAILY TOP Last administered on 06/16/18 08:17; Admin Dose 1 APPLIC; Start 06/15/18 at 09:00 Miscellaneous Information (Pending Santyl Order For Wound Care) This patient green... PRN PRN XX WOUND CARE; Start 06/15/18 at 15:30 Insulin Glargine (Lantus) 30 units DAILY@2000 SC Last administered on 06/16/18 21:17; Admin Dose 30 UNITS; Start 06/16/18 at 20:00 Insulin Glargine (Lantus) 40 units AM SC Last administered on 06/16/18 11:34; Admin Dose 40 UNITS; Start 06/16/18 at 09:00 Amiodarone HCl (Cordarone) 200 mg BID PO Last administered on 06/16/18 20:56; Admin Dose 200 MG; Start 06/16/18 at 21:00 Carvedilol (Coreg) 6.25 mg BID PO Last administered on 06/16/18 20:57; Admin D ose 6.25 MG; Start 06/16/18 at 21:00 Cephalexin (Keflex) 250 mg TID PO ; Start 06/17/18 at 09:00 JOSÉ FRANZ MD Jun 16, 2018 23:11
[2018-06-17] VITALS (9 sets, daily range): BP systolic 114–141; BP diastolic 63–73; PULSE 71–80; RESP 16–20
[2018-06-17] MEDS: ACCU-CHEK XX SCH (02:47)
[2018-06-17] MEDS: FUROSEMIDE 40 MG TAB PO SCH (06:08)
[2018-06-17] MEDS: INSULIN ASPART [NOVOLOG] 3 ML PEN SC SCH ×2 (08:11→12:14)
[2018-06-17] MEDS ORDERED: CARV3.1260 PO (08:31)
[2018-06-17] MEDS ORDERED: CEPH250C PO (08:31)
[2018-06-17] MEDS ORDERED: AMIO200T4 PO ×2 (08:31→15:40)
[2018-06-17] MEDS: MAGNESIUM OXIDE 400 MG TAB PO SCH ×2 (08:45→12:21)
[2018-06-17] MEDS: DOCUSATE SODIUM 100 MG CAP PO SCH ×2 (08:45→12:21)
[2018-06-17] MEDS: AMLODIPINE 5 MG TAB PO SCH (08:46)
[2018-06-17] MEDS: ASPIRIN (EC) 81 MG TAB PO SCH (08:46)
[2018-06-17] MEDS: CEPHALEXIN 250 MG CAP PO SCH ×2 (08:46→12:21)
[2018-06-17] MEDS: COLLAGENASE 5 GM (UD JAR) TOP SCH (08:46)
[2018-06-17] MEDS: AMIODARONE 200 MG TAB PO SCH (08:46)
[2018-06-17] MEDS: HEPARIN 5,000 UNIT/1 ML VIAL SC SCH (09:02)
[2018-06-17] MEDS: INSULIN GLARGINE [LANTus] (100 UNITS/ML) SYG SC SCH (10:30)
[2018-06-17] MEDS ORDERED: INSULIN ASPART [NOVOLOG] 3 ML PEN SC ONE (15:00)
--- NOTE | 2018-06-17 15:10 | CONS ---
Consult Date/Type/Reason Admit Date/Time Jun 11, 2018 at 11:29 Initial Consult Date 06/12/18 Type of Consult Pulmonary Requesting Provider: NUBIA TEJEDA MD Date/Time of Note DATE: 06/17/18 TIME: 15:09 Subjective No respiratory distress. Objective Vital Signs Date Temp Pulse Resp B/P (MAP) Pulse Ox O2 O2 Flow FiO2 Time Delivery Rate 06/17/18 80 12:05 06/17/18 97.9 16 114/65 96 11:27 (81) 06/17/18 Nasal 2.0 08:52 Cannula Intake and Output 06/16/18 06/16/18 06/17/18 1515:00 23:00 07:00 IntakeIntake Total 800 ml 650 ml OutputOutput Total 700 ml 1000 ml BalanceBalance 100 ml -350 ml Exam GENERAL: VITAL SIGNS: per chart NECK: Supple. No JVD or lymphadenopathy. CARDIAC EXAM: S1, S2. No added sounds or murmurs. CHEST: clear bilaterally, No added sounds, rales or wheezes ABDOMEN: Soft, nontender. No guarding or rebound. EXTREMITIES: No cyanosis, clubbing or edema. NEUROLOGIC: Generalized weakness. No focal deficit Results/Medications Result Diagram: 06/17/18 0525 06/17/18 0552 Results 24 hrs Laboratory Tests Test 06/16/18 17:06 06/16/18 20:47 06/17/18 02:39 06/17/18 05:25 Bedside Glucose 378 H 365 H 147 White Blood Count 10.7 Red Blood Count 4.28 Hemoglobin 12.2 Hematocrit 38.0 Mean Corpuscular 88.8 Volume Mean Corpuscular 28.5 L Hemoglobin Mean Corpuscular 32.1 Hemoglobin Concent Red Cell 12.6 Distribution Width Platelet Count 246 Mean Platelet Volume 12.1 H Immature 0.500 H Granulocytes % Neutrophils % 62.9 Lymphocytes % 21.5 Monocytes % 7.6 Eosinophils % 6.8 Basophils % 0.7 Nucleated Red Blood 0.0 Cells % Immature 0.050 H Granulocytes # Neutrophils # 6.7 Lymphocytes # 2.3 Monocytes # 0.8 Eosinophils # 0.7 H Basophils # 0.1 Nucleated Red Blood 0.0 Cells # Prothrombin Time 11.9 Prothrombin Time 0.9 Ratio INR International 0.87 Normalized Ratio Activated 25.7 Partial Thromboplast Time Test 06/17/18 05:52 3/19/19 08:07 06/17/18 10:24 06/17/18 12:11 Sodium Level 139 Potassium Level 4.4 Chloride Level 96 L Carbon Dioxide Level 37 H Anion Gap 6 Blood Urea Nitrogen 58 H Creatinine 1.86 H Est Glomerular Filtrat Rate mL/min Glucose Level 158 # Calcium Level 10.0 B-Type Natriuretic 3220 H Peptide Bedside Glucose 151 366 H 382 H Medications Current Medications Aspirin (Halfprin) 81 mg DAILY PO Last administered on 06/17/18 08:46; Admin Dose 81 MG; Start 06/12/18 at 09:00 Atorvastatin Calcium (Lipitor) 40 mg QHS PO Last administered on 06/16/18 20:55; Admin Dose 40 MG; Start 06/11/18 at 21:00 Docusate Sodium (Colace) 100 mg TID PO Last administered on 06/17/18 12:21; Admin Dose 100 MG; Start 06/11/18 at 21:00 Clonidine (Catapres) 0.1 mg Q6H PRN PO for sbp over 160; Start 06/11/18 at 17:30 Zolpidem Tartrate (Ambien) 5 mg HS PRN PO INSOMNIA Last administered on 06/11/18 22:11; Admin Dose 5 MG; Start 06/11/18 at 17:30 Amlodipine Besylate (Norvasc) 5 mg DAILY PO Last administered on 06/17/18 08 :46; Admin Dose 5 MG; Start 06/11/18 at 17:30 Hydralazine HCl (Apresoline) 10 mg Q4H PRN IV sbp>165 Last administered on 06/16/18at 01:13; Admin Dose 10 MG; Start 06/11/18 at 17:30 Diagnostic Test (Pha) (Accu-Chek) 1 ea 02 XX Last administered on 06/17/18 02:47; Admin Dose 1 EA; Start 06/12/18 at 02:00 Miscellaneous Information 1 ea NOTE XX ; Start 06/11/18 at 21:00 Glucose (Glutose) 15 gm Q15M PRN PO DECREASED GLUCOSE; Start 06/11/18 at 21:00 Glucose (Glutose) 22.5 gm Q15M PRN PO DECREASED GLUCOSE; Start 06/11/18 at 21:00 Dextrose (D50w Syringe) 25 ml Q15M PRN IV DECREASED GLUCOSE; Start 06/11/18 at 21:00 Dextrose (D50w Syringe) 50 ml Q15M PRN IV DECREASED GLUCOSE; Start 06/11/18 at 21:00 Glucagon (Glucagen) 1 mg Q15M PRN IM DECREASED GLUCOSE; Start 06/11/18 at 21:00 Glucose (Glutose) 15 gm Q15M PRN BUCCAL DECREASED GLUCOSE; Start 06/11/18 at 21:00 Magnesium Oxide (Mag-Ox 400) 500 mg TID PO Last administered on 06/17/18 12:21; Admin Dose 500 MG; Start 06/12/18 at 09:00 Insulin Aspart (Novolog Insulin Pen) NOVOLOG *MODERATE* ALGORITHM WITH MEALS BEDTIME SC Last administered on 06/17/18 12:14; Admin Dose 12 UNIT; Start 06/12/18 at 11:30 Haloperidol (Haldol) 5 mg DAILY PRN IM AGITATION/ANXIETY Last administered on 06/13/18 03:43; Admin Dose 5 MG; Start 06/13/18 at 04:00 Furosemide (Lasix) 40 mg DAILY@0600 PO Last administered on 06/17/18 06:08; Admin Dose 40 MG; Start 06/14/18 at 06:00 Heparin Sodium (Porcine) (Heparin (5000 Units/1ml)) 5,000 unit BID SC Last administered on 06/17/18 09:02; Admin Dose 5,000 UNIT; Start 06/14/18 at 21:00 Collagenase (Santyl) 1 applic DAILY TOP Last administered on 06/17/18 08:46; Admin Dose 1 APPLIC; Start 06/15/18 at 09:00 Miscellaneous Information (Pending Santyl Order For Wound Care) This patient green... PRN PRN XX WOUND CARE; Start 06/15/18 at 15:30 Insulin Glargine (Lantus) 30 units DAILY@2000 SC Last administered on 06/16/18 21:17; Admin Dose 30 UNITS; Start 06/16/18 at 20:00 Insulin Glargine (Lantus) 40 units AM SC Last administered on 06/17/18at 10:30; Admin Dose 40 UNITS; Start 06/16/18 at 09:00 Amiodarone HCl (Cordarone) 200 mg BID PO Last administered on 06/17/18at 08:46; Admin Dose 200 MG; Start 06/16/18 at 21:00 Carvedilol (Coreg) 6.25 mg BID PO Last administered on 06/17/18at 08:45; Admin Dose 6.25 MG; Start 06/16/18 at 21:00 Cephalexin (Keflex) 250 mg TID PO Last administered on 06/17/18at 12:21; Admin Dose 250 MG; Start 06/17/18 at 09:00 Assessment/Plan Hospital Course (Demo Recall) IMP: 1. Status post hypertensive urgency 2. Acute decompensate heart failure clinically improved 3. History of coronary artery disease 4. History of renal carcinoma status post partial nephrectomy--now with possible recurrence 5. CKD RECS: 1. May reduce diuretics; follow I/O's and renal function 2. Titrate FiO2 3. Amiodarone 4. DVT and GI prophylaxis 5. PT/OT eval/mobilize OOB 6. Urology recommendations PÉREZ MAN MD, [facility] Jun 17, 2018 15:10
--- NOTE | 2018-06-17 22:15 | CONS ---
Assessment/Plan Assessment/Plan Hospital Course (Demo Recall) History of renal carcinoma status post nephrectomy focally prominent 2.7 cm soft tissue lobulation in the inferior left renal lower pole adjacent to surgical clips, possibly reflecting postsurgical change or recurrent neoplasm. Enhancing lobulated mass in the lower pole left kidney with no extension into the left renal vein. PET/CT OUTPT CT AP- REVIEWED L[facility]- NOTED F-UP OUTPT echocardiogram- echogenic structure in the right atrium, as well as attached to the tricuspid valve as well as the IVC. Differential includes vegetation, malignancy or thrombus. The IVC is focally distended at the inferior cavoatrial junction, containing an 8 mm metallic focus which may lie within intravenous tumor mass. Evaluation is quite limited in the absence of intravenous contrast. 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 Coarse calcifications in the left breast parenchyma, most likely benign. diagnostic mammography as outpt Acute congestive heart failure exacerbation. Acute sepsis, possible urinary tract infection. Elevated lactate levels. Type 2 diabetes mellitus, uncontrolled. Hyperglycemia. Diabetic neuropathy. Gastroesophageal reflux disease. Possible transient ischemic attacks. Hypertension, uncontrolled Consultation Date/Type/Reason Admit Date/Time Jun 11, 2018 at 11:29 Initial Consult Date 06/12/18 Type of Consult [facility] Requesting Provider: NUBIA TEJEDA MD Date/Time of Note DATE: 06/17/18 TIME: 22:14 24 HR Interval Summary Free Text/Dictation all noted NAD Exam/Review of Systems Exam Vitals Vital Signs Date Temp Pulse Resp B/P (MAP) Pulse Ox O2 O2 Flow FiO2 Time Delivery Rate 06/17/18 2.0 17:45 06/17/18 98.2 74 16 132/71 96 15:11 (91) 06/17/18 Nasal 08:52 Cannula Intake and Output 06/16/18 06/16/18 06/17/18 1515:00 23:00 07:00 IntakeIntake Total 800 ml 650 ml OutputOutput Total 700 ml 1000 ml BalanceBalance 100 ml -350 ml Exam VITAL SIGNS: per chart NECK: Supple. No JVD or lymphadenopathy. CARDIAC EXAM: S1, S2. No added sounds or murmurs. CHEST: clear bilaterally, No added sounds, rales or wheezes ABDOMEN: Soft, nontender. No guarding or rebound. EXTREMITIES: No cyanosis, clubbing or edema. NEUROLOGIC: Generalized weakness. No focal deficit Results Result Diagram: 3/19/19 0525 06/17/18 0552 Results 24hrs Laboratory Tests Test 06/17/18 02:39 06/17/18 05:25 06/17/18 05:52 06/17/18 08:07 Bedside Glucose 147 151 White Blood Count 10.7 Red Blood Count 4.28 Hemoglobin 12.2 Hematocrit 38.0 Mean Corpuscular 88.8 Volume Mean Corpuscular 28.5 L Hemoglobin Mean Corpuscular 32.1 Hemoglobin Concent Red Cell 12.6 Distribution Width Platelet Count 246 Mean Platelet Volume 12.1 H Immature 0.500 H Granulocytes % Neutrophils % 62.9 Lymphocytes % 21.5 Monocytes % 7.6 Eosinophils % 6.8 Basophils % 0.7 Nucleated Red Blood 0.0 Cells % Immature 0.050 H Granulocytes # Neutrophils # 6.7 Lymphocytes # 2.3 Monocytes # 0.8 Eosinophils # 0.7 H Basophils # 0.1 Nucleated Red Blood 0.0 Cells # Prothrombin Time 11.9 Prothrombin Time 0.9 Ratio INR International 0.87 Normalized Ratio Activated 25.7 Partial Thromboplast Time Sodium Level 139 Potassium Level 4.4 Chloride Level 96 L Carbon Dioxide Level 37 H Anion Gap 6 Blood Urea Nitrogen 58 H Creatinine 1.86 H Est Glomerular Filtrat Rate mL/min Glucose Level 158 # Calcium Level 10.0 B-Type Natriuretic 3220 H Peptide Test 06/17/18 10:24 06/17/18 12:11 Bedside Glucose 366 H 382 H JOSÉ FRANZ MD Jun 17, 2018 22:15
--- NOTE | 2018-06-18 21:59 | DS ---
DATE OF ADMISSION: 06/11/2018 DATE OF DISCHARGE: 06/17/2018 An 82-year-old female was admitted for acute shortness of breath, acute atrial fibrillation, hypoxemi a. She was admitted to the emergency room with hypertensive urgency, hypertensive emergency. She wa s started on nitro drip and admitted to ICU. During the stay in the ICU, she tolerated the treatment well and she had serial echoes, CT scans, which showed severe calcification of the IVC and a new ons et of a kidney tumor which she has had years ago and she had partial nephrectomy at that area. The t umor repeated itself, recurred in the same area. The patient stayed in the ICU to be stabilized. Bl ood pressure stabilized, blood sugar stabilized and gradually she was transferred to telemetry for fu rther evaluation and treatment at telemetry, the patient's blood sugar and blood pressure were contro lled. Atrial fibrillation controlled on amiodarone. Tolerated all the treatments well. Had multipl e discussions with the family, the son and the in-laws regarding the tumor in the kidney and the calc ifications in the IVC. Discussed with the refrigeration installer, tacking machine operator, and registered public surveyor, and all of us came to the decision that patient would want in addition to the family's decision that they did no t want any further procedures to the kidney of any. They decided that they would like conservative t reatment to the patient only at this time; therefore, on 06/17/2018 in stable condition, blood pressu re controlled. The patient was discharged home, although elevated blood sugar levels, but the family insisted that they would treat the patient at home with the insulin, with home care nurses, so elida rust discharged in stable condition on 06/17/2018 to follow up in my office in 1 week's time. Dictated By: NUBIA BREWER/JAYDEN Conf#: [id number] DID#: [id number]
== END 2018-06-17 16:10 | disposition home health service (06) | DRG 871 ==
LOC: E/R 09:51 → ICU 11:29 → 6WM 06-15 14:25
PROVIDERS: ADMIT Family Medicine; ATTEND Family Medicine
PROC: 5A09357 Assistance with Respiratory Ventilation, Less than 24 Consecutive Hours, Continuous Positive Airway Pressure (ICD-10-PCS; principal; 2018-06-11)
DX: A41.9 Sepsis, unspecified organism (principal); J96.00 Acute respiratory failure, unspecified whether with hypoxia or hypercapnia; I50.23 Acute on chronic systolic (congestive) heart failure; I13.0 Hypertensive heart and chronic kidney disease with heart failure and stage 1 through stage 4 chronic kidney disease, or unspecified chronic kidney disease; N39.0 Urinary tract infection, site not specified; I42.9 Cardiomyopathy, unspecified; N17.9 Acute kidney failure, unspecified; E11.22 Type 2 diabetes mellitus with diabetic chronic kidney disease; N18.9 Chronic kidney disease, unspecified; D63.1 Anemia in chronic kidney disease; M19.90 Unspecified osteoarthritis, unspecified site; E11.21 Type 2 diabetes mellitus with diabetic nephropathy; E66.9 Obesity, unspecified; Z68.33 Body mass index [BMI] 33.0-33.9, adult; I25.10 Atherosclerotic heart disease of native coronary artery without angina pectoris; K21.9 Gastro-esophageal reflux disease without esophagitis; E11.65 Type 2 diabetes mellitus with hyperglycemia; E11.40 Type 2 diabetes mellitus with diabetic neuropathy, unspecified; E78.00 Pure hypercholesterolemia, unspecified; I16.0 Hypertensive urgency; I48.0 Paroxysmal atrial fibrillation; E83.42 Hypomagnesemia; D35.02 Benign neoplasm of left adrenal gland; M81.0 Age-related osteoporosis without current pathological fracture; D49.512 Neoplasm of unspecified behavior of left kidney; Z90.5 Acquired absence of kidney; Z79.4 Long term (current) use of insulin; Z79.82 Long term (current) use of aspirin; Z79.84 Long term (current) use of oral hypoglycemic drugs; Z85.528 Personal history of other malignant neoplasm of kidney; Z95.1 Presence of aortocoronary bypass graft
CPT/HCPCS: 70450; 71045; 74176; 74183; 74185; 80048; 80053; 80202; 82270; 82962; 83036; 83605; 83615; 83735; 83880; 84100; 84145; 84484; 85025; 85610; 85730; 87040; 87081; 87086; 93005; 93306; 93970; 94660; 96374; 96375; 97116; 97162; 97530; J0360; J0696; J1630; J1644; J1815; J1940; J2060; J3370; J3475; J7040

== ENCOUNTER 2018-06-25 00:31 | Inpatient (IN) | payer MEDICARE, OTHER ==
[~2018-06-25] VITALS: Ht 152.4 cm; Wt 72.7 kg
[~2018-06-25 00:31] MED LIST: ALEN70TA5 PO; ALLO100T PO; AMIO200T4 PO; ASPI-817 PO; ATEN-51 PO; ATOR40TA68 PO; CALC1TAB93 PO; CARV3.1260 PO; CEPH250C PO; DOCU-144 PO; DULA0.75 SQ; EMPA10TA PO; ERGO2000 PO; ESOM20CA PO; FERR325T5 PO; GABA100C14 PO; INSU100I33 SC; MELO7.5T38 PO; METF-849 PO
--- NOTE | 2018-06-25 01:24 | ERD ---
ER Documentation Chief Complaint Chief Complaint SOB HPI This is an 82-year-old female with a past medical history of hypertension, hy perlipidemia, diabetes, CHF, arrhythmia, a recent admission for a CHF exacerbation 2 weeks ago who is presenting to the emergency department today for progressive worsening shortness of breath. Over the last few days, the patient has become progressively more dyspneic, unable to catch her breath on her own. An ambulance was called this evening for her shortness of breath. She was oxygenating in the low 80s. The patient was started on a nonrebreather. The patient was also found to be hypertensive and given nitroglycerin in route to the hospital. The patient does not endorse chest pain, but she does have a heaviness in her chest. She did not endorse any nausea or vomiting. She did not endorse any lightheadedness or dizziness. She is not diaphoretic. The patient also reports progressive worsening left lower extremity pain. She has not had any swelling to the leg, but it hurts to move and is cooler to touch. The patient denies feeling sick recently. The patient denies fever or chills. The patient has had no headache or vision changes. The patient does not endorse neck or back pain. The patient denies abdominal pain. The patient denies changes to bowel movements or urination. The patient has had no focal deficits. The patient has had no weakness or numbness or tingling to the face or extremities. ROS All systems reviewed and are negative except as per history of present illness. Medications Home Meds Reported Medications Clonidine Hcl* (Clonidine Hcl*) 0.1 Mg Tab, 0.1 MG PO Q8, TAB 06/25/18 Furosemide* (Furosemide*) 20 Mg Tablet, 20 MG PO DAILY 06/25/18 Carvedilol* (Carvedilol*) 3.125 Mg Tablet, 3.125 MG PO BID for 30 Days, #60 06/25/18 Amiodarone Hcl* (Amiodarone Hcl*) 200 Mg Tablet, 200 MG PO BID, #60 TAB 06/17/18 Dulaglutide (Trulicity) 0.75 Mg/0.5 Ml Pen.injctr, 1.75 MG SQ WEEKLY 06/11/18 Insulin Glargine,Hum.rec.anlog (Basaglar Kwikpen U-100) 100 Unit/1 Ml Insuln.pen, 20 UNIT SC DAILY, EA 06/11/18 Ergocalciferol (Vitamin D2) (VITAMIN D2) 2,000 Unit Tablet, 2000 UNIT PO DAILY, TAB 06/11/18 Alendronate Sodium* (Fosamax*) 70 Mg Tablet, 70 MG PO Q7D PRN for QMONDAYS, #4 TAB 06/11/18 Atenolol* (Atenolol*) 25 Mg Tablet, 25 MG PO BID, #60 TAB 06/11/18 Ferrous Sulfate (Ferrous Sulfate) 325 Mg Tablet.dr, 325 MG PO DAILY 06/11/18 Aspirin* (Aspirin* EC) 81 Mg Tablet.dr, 81 MG PO DAILY, TAB 06/11/18 Empagliflozin (Jardiance) 10 Mg Tablet, 10 MG PO DAILY, TAB 06/11/18 Esomeprazole Mag Trihydrate (Nexium) 20 Mg Capsule.dr, 20 MG PO AC BREAKFAST, #30 CAP 06/11/18 Gabapentin* (Gabapentin*) 100 Mg Capsule, 100 MG PO QHS, #90 CAP 06/11/18 Meloxicam* (Meloxicam*) 7.5 Mg Tablet, 7.5 MG PO DAILY, #30 TAB 06/11/18 Calcium Carbonate/Vitamin D3 (OYSTER SHELL 500 MG + VIT D TB) 1 Each Tablet, 1 EACH PO BID, TAB 06/11/18 Docusate Sodium* (Colace*) 100 Mg Capsule, 100 MG PO TID, #60 CAP 06/11/18 Metformin* (Glucophage*) 500 Mg Tab, 500 MG PO BID, #90 TAB 06/11/18 Atorvastatin* (Atorvastatin*) 40 Mg Tablet, 40 MG PO QHS, #30 TAB 06/11/18 Allopurinol* (Allopurinol*) 100 Mg Tablet, 100 MG PO BID, TAB 06/11/18 Discontinued Reported Medications Alendronate Sodium* (Fosamax*) 70 Mg Tablet, 70 MG PO Q7D, #4 TAB 06/11/18 Allergies Allergies: Coded Allergies: No Known Allergies (Verified Allergy, Unknown, 06/11/18) PMhx/Soc History of Surgery: Yes (CABG , NEPHROCTOMY) Anesthesia Reaction: No Hx Neurological Disorder: No Hx Respiratory Disorders: Yes Hx Cardiac Disorders: Yes (Hypertension, hyperlipidemia, diabetes, CHF) Hx Psychiatric Problems: No Hx Miscellaneous Medical Probl: Yes (ASVD,CAD,DMII,kidney Ca,OA) Hx Alcohol Use: No Hx Substance Use: No Hx Tobacco Use: No Smoking Status: Never smoker FmHx Family History: diabetes Physical Exam Vitals Vital Signs Date Temp Pulse Resp B/P (MAP) Pulse Ox O2 O2 Flow FiO2 Time Delivery Rate 06/25/18 65 16 149/70 100 Nasal 4.0 04:30 (96) Cannula 06/25/18 68 18 153/76 99 Nasal 4.0 03:18 (101) Cannula 06/25/18 98 4.0 02:25 06/25/18 98.4 68 28 147/70 85 00:57 (95) 06/25/18 Rebreather 12 00:57 06/25/18 76 26 147/70 99 12.0 00:57 (95) Physical Exam Const: No apparent distress, well-developed, well-nourished Head: Normocephalic, Atraumatic Eyes: Normal Conjunctiva. Extraocular movements intact. Pupils equal, round and reactive to light ENT: Normal External Ears, Nose and Mouth. Neck: Full range of motion. No meningismus. Resp: Increased work of breathing. Bilateral rales. No wheezes or rhonchi Cardio: Regular rate and rhythm. No murmurs, rubs or gallops Abd: Soft, non tender, non distended. Normal bowel sounds Skin: No petechiae or rashes Back: No midline tenderness. No CVA tenderness Ext: No cyanosis, or edema Neur: Awake and alert, oriented 4. Cranial nerves intact. No facial droop. Normal strength, sensation and coordination. Psych: Anxious Result Diagram: 06/25/18 0128 06/25/18 0128 Results 24 hrs Laboratory Tests Test 06/25/18 00:39 06/25/18 01:28 06/25/18 03:11 Blood Gas Specimen Source Blood arterial Arterial Blood Date Drawn 06/25/2018 12:50:14 AM Arterial Blood pH 7.242 (Temp corrected) Arterial Blood pCO2 47.8 mmhg (Temp correct) Arterial Blood pO2 387.3 mmHG (Temp corrected) Arterial Blood HCO3 20.1 mmol/L Arterial Blood Base Excess -7.2 mmol/L Arterial Blood 99.2 mmHG Oxygen Saturation Campos Test N/A Arterial Blood Gas Right Brachial Puncture Site Arterial 0.3 % Blood Carboxyhemoglobin Arterial Blood 0.2 % Methemoglobin Blood Gas A-a O2 277.9 mmHg Differential Oxyhemoglobin Percent 98.7 % Blood Gas Temperature 37.0 C Blood Gas Modality MASK - NRB FiO2 100.0 % Blood Gas Critical Value Mary LEÓN MD Read Back Blood Gas Notified Whom UP Blood Gas Notified Time 06/25/2018 1:04:23 AM White Blood Count 21.9 10^3/ul Red Blood Count 3.80 10^6/ul Hemoglobin 10.6 g/dl Hematocrit 34.0 % Mean Corpuscular Volume 89.5 fl Mean Corpuscular 27.9 pg Hemoglobin Mean Corpuscular 31.2 g/dl Hemoglobin Concent Red Cell Distribution 13.0 % Width Platelet Count 285 10^3/UL Mean Platelet Volume 12.3 fl Immature Granulocytes % 1.500 % Neutrophils % 89.6 % Lymphocytes % 4.7 % Monocytes % 3.4 % Eosinophils % 0.4 % Basophils % 0.4 % Nucleated Red Blood Cells 0.0 /100WBC % Immature Granulocytes # 0.330 10^3/ul Neutrophils # 19.7 10^3/ul Lymphocytes # 1.0 10^3/ul Monocytes # 0.7 10^3/ul Eosinophils # 0.1 10^3/ul Basophils # 0.1 10^3/ul Nucleated Red Blood Cells 0.0 10^3/ul # Prothrombin Time 13.1 Sec Prothrombin Time Ratio 1.0 INR International 0.98 Normalized Ratio Activated 24.3 Sec Partial Thromboplast Time Sodium Level 138 mmol/L Potassium Level 5.6 mmol/L Chloride Level 99 mmol/L Carbon Dioxide Level 22 mmol/L Anion Gap 17 Blood Urea Nitrogen 67 mg/dl Creatinine 3.95 mg/dl Est Glomerular Filtrat mL/min Rate mL/min Glucose Level 289 mg/dl Calcium Level 10.0 mg/dl Troponin I 0.058 ng/ml B-Type Natriuretic Peptide 3980 PG/ML Lactic Acid Level 1.7 mmol/L Current Medications Medications Dose Sig/Peter Start Time Status Last (Trade) Ordered Route PRN Stop Time Admin Dose Reason Admin Ceftriaxone 50 ml @ ONCE ONCE 06/25/18 DC 06/25/18 Sodium 100 mls/hr IVPB 02:30 03:18 06/25/18 02:59 Azithromycin 250 ml @ ONCE ONCE 06/25/18 DC 06/25/18 250 mls/hr IVPB 02:30 04:24 06/25/18 03:29 Furosemide 40 mg ONCE ONCE 06/25/18 DC 06/25/18 (Lasix) IV 04:30 04:23 06/25/18 04:31 Procedures/MDM MDM The patient's presentation warrants further investigation. Previous medical records, if available, were reviewed. LABS The patient's laboratory testing was obtained and reviewed. No emergent treatment was required unless described below. CBC: Leukocytosis with left shift, concerning for an infectious process. Normocytic anemia, nonemergent. No E/o thrombocytopenia Chemistry: No E/o severe acidosis or alkalosis. Hyperglycemia without diabetic ketoacidosis. Mild hyperkalemia, nonemergent. Worsening creatinine, in line with acute on chronic renal failure. PT/INR: No E/o significant coagulopathy Lactate: No E/o severe sepsis Troponin: Within normal limits but not negative BNP: E/o heart failure Urine: Pending EKG EKG read by me: Rate/Rhythm: Regular rate and rhythm at 96 bpm. Intervals: Wide QRS complex, concerning for a nonspecific intraventricular block versus an accelerated junctional rhythm. Normal QTC. No obvious P waves. [place]: Left axis deviation Impression: Negative Sgarbossa criteria. No evidence of acute ischemia or arrhythmia IMAGING Imaging and Radiology interpretation reviewed. CXR FINDINGS: The patient status post sternotomy. The heart is enlarged. There is patchy opacification of the lungs bilaterally likely on the basis of pulmonary edema. There is no pneumothorax. IMPRESSION: Patchy opacification of the lungs bilaterally likely on the basis of pulmonary edema. Findings have worsened since the prior examination. Electronically viewed and signed by Admit-r Haseeb Physician on 06/25/2018 02:02 TREATMENT/DISPOSITION The patient presents with multiple concerning pathologies. The patient's primary complaint was shortness of breath. The patient has been hypoxic. There is evidence of CHF and I am also concerned about the possibility of pneumonia. The patient does have a significant leukocytosis. There is also evidence of endorgan damage with a creatinine at 3.95 and a BNP of nearly 4000. I opted not to give the patient a sepsis bolus, as I am concerned about her respiratory status and tenuous fluid balance from CHF. I did give the patient Rocephin and azithromycin in the emergency department for pneumonia. The patient's elevated creatinine could be from urinary retention. A Odonnell catheter was placed, and over a liter of urine was removed. This will need to be closely monitored as the patient is diuresed. The patient does not require emergent dialysis. The patient's chest xray does not reveal pneumonia or pneumothorax or pleural e ffusions or pulmonary edema. The patient does not have a widened mediastinum and does not have signs or symptoms concerning for thoracic aortic aneurysm or dissection. The patient does not have pneumomediastinum or signs concerning for esophageal tear or rupture. The patient has no clinical or radiographic signs of pericardial effusion or tamponade. The patient does not have pneumoperitoneum and I have decreased suspicion of viscus perforation as possible referred pain. The patient does not have a diagnosis of COPD and is not wheezing today. An ABG was performed. The patient is not retaining CO2. I have decreased suspicion for PE. The patient's troponin and EKG are reassuring. I have low suspicion for acute coronary syndrome. The patient also reports having increased pain to the left lower extremity. I do feel pulses but they are faint. An ultrasound was performed for further ass essment. SEPSIS NOTE Infectious source: Pneumonia End organ damage indicated by: AHRF Sat < 92% without oxygen, Cr > 2.0 SEPSIS MANAGEMENT Time to recognize sepsis: 1:30 Time to recognize severe sepsis: 1:30. Time to recognize septic shock: No septic shock at this time. 3 HOUR BUNDLE Blood cultures x 2 before abx: Yes 30 ml/kg NS bolus not completed due to a tenuous fluid balance from active CHF exacerbation. Initial lactate 1.7 Repeat lactate not indicated SEPTIC SHOCK ASSESSMENT: NO lactic acid > 4.0 NO persistent hypotension (SBP < 90 or 40 mmHg drop, MAP < 65) despite 30 L/kg IV fluid bolus CRITICAL CARE Critical care time 35 minutes Emergent fluid management while maintaining close respiratory support. Provision of immediate and broad-spectrum antibiotic therapy. Simultaneous assessment for possible sources in order to direct targeted therapy. Consideration for invasive and chemical support to prevent cardiopulmonary collapse. Critical care time is independent of procedures performed. ADMISSION At this time, I feel that the patient requires admission for further evaluation and management. The patient will be admitted to panel in accordance with the patient's insurance. The patient was accepted by Dr. Moore at 6AM on 06/25/2018. We attempted to reach Dr. King, the patient's primary physician, but she did not respond to multiple calls over several hours. Disclaimer: Inadvertent spelling and grammatical errors are likely due to EHR/dictation software use and do not reflect on the overall quality of patient care. Note that the electronic time recorded on this note does not necessarily reflect the actual time of the patient encounter. Departure Diagnosis: Primary Impression: Acute exacerbation of CHF (congestive heart failure) Heart failure type: unspecified Qualified Codes: I50.9 - Heart failure, unspecified Additional Impressions: Dyspnea Dyspnea type: unspecified Qualified Codes: R06.00 - Dyspnea, unspecified Hypoxia Severe sepsis Multifocal pneumonia Leukocytosis Leukocytosis type: unspecified Qualified Codes: D72.829 - Elevated white blood cell count, unspecified Normocytic anemia Acute on chronic renal failure Acute renal failure type: unspecified Chronic kidney disease stage: unspecified stage Qualified Codes: N17.9 - Acute kidney failure, unspecified; N18.9 - Chronic kidney disease, unspecified Hyperkalemia Elevated brain natriuretic peptide (BNP) level Left leg pain Hyperglycemia Condition: Serious RAUL LEÓN MD Jun 25, 2018 01:24
[2018-06-25] MEDS ORDERED: CEFTRIAXONE 1 GM/50 ML (PMX) 50 ML IVPB ONE (02:30)
[2018-06-25] MEDS ORDERED: AZITHROMYCIN 500MG/NS (PMX) 250 ML IVPB ONE (02:30)
[2018-06-25] MEDS ORDERED: CARV3.1260 PO (04:19)
[2018-06-25] MEDS ORDERED: FURO20TA3 PO (04:19)
[2018-06-25] MEDS ORDERED: CLON-379 PO (04:23)
[2018-06-25] MEDS ORDERED: FUROSEMIDE 40 MG INJ IV ONE (04:30)
[2018-06-25] MEDS ORDERED: ACETAMINOPHEN 325 MG TAB PO PRN (06:30)
[2018-06-25] MEDS ORDERED: ONDANSETRON 4 MG INJ IV PRN (06:30)
[2018-06-25] MEDS ORDERED: DEXTROSE 50% 50 ML SYRINGE IV PRN ×2 (11:30)
[2018-06-25] MEDS ORDERED: GLUCAGON 1 MG INJ IM PRN (11:30)
[2018-06-25] MEDS ORDERED: GLUCOSE GEL 15 GRAM TUBE BUCCAL PRN (11:30)
[2018-06-25] MEDS ORDERED: PANTOPRAZOLE (EC) 40 MG TAB PO ONE (11:30)
[2018-06-25] MEDS ORDERED: GLUCOSE GEL 15 GRAM TUBE PO PRN ×2 (11:30)
[2018-06-25] MEDS: ASPIRIN (EC) 81 MG TAB PO SCH (12:44)
[2018-06-25] MEDS: DOCUSATE SODIUM 100 MG CAP PO SCH ×2 (12:44→21:31)
[2018-06-25] MEDS: INSULIN GLARGINE [LANTus] (100 UNITS/ML) SYG SC SCH ×2 (12:46→23:53)
[2018-06-25] MEDS ORDERED: HEPARIN 1000 UNITS/ML 10 ML INJ IV PRN ×2 (13:00)
[2018-06-25] MEDS: AMIODARONE 200 MG TAB PO SCH ×2 (13:04→21:32)
--- NOTE | 2018-06-25 13:38 | CONS ---
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 Arterial ultrasound with evidence of likely occlusive pathology. Patient with history of recurrent bleeding with anticoagulation, at the current time, given risk of limb loss, the benefits of anticoagulation likely outweigh the risks. Would start IV heparin. Vascular surgery evaluation. -Patient also with acute kidney injury, would DC all nephrotoxic medications including potassium supplementation. Check renal ultrasound. Will likely need renal evaluation -Repeat echocardiogram to evaluate structure seen on tricuspid valve and right atrium and IVC on last admission. -Doing workup on last admission, patient with mass on kidney, plans were for conservative management. Given her current situation, would decide on CODE STATUS and goals of care. Consultation Date/Type/Reason Admit Date/Time Type of Consult Cardiology Reason for Consultation Leg pain Date/Time of Note DATE: 06/25/18 TIME: 13:30 Hx of Present Illness This is an 82-year-old female known to me from a recent previous admission who presents with left lower extremity pain. Symptoms began yesterday. Pain is aching like and worse with touch of the left lower extremity. She has been having intermittent shortness of breath but this is better compared to her recent admission. She denies any chest pain, palpitations or dizziness. She does complain of cough which is minimally productive. She denies any dizziness or lightheadedness. 12 point review of systems was performed with all pertinent positives and negatives mentioned above and all else is negative Past Medical History Medical History: congestive heart failure, coronary artery disease, hypertension, renal disease Home Meds Reported Medications Clonidine Hcl* (Clonidine Hcl*) 0.1 Mg Tab, 0.1 MG PO Q8, TAB 06/25/18 Furosemide* (Furosemide*) 20 Mg Tablet, 20 MG PO DAILY 06/25/18 Carvedilol* (Carvedilol*) 3.125 Mg Tablet, 3.125 MG PO BID for 30 Days, #60 06/25/18 Amiodarone Hcl* (Amiodarone Hcl*) 200 Mg Tablet, 200 MG PO BID, #60 TAB 06/17/18 Dulaglutide (Trulicity) 0.75 Mg/0.5 Ml Pen.injctr, 1.75 MG SQ WEEKLY 06/11/18 Insulin Glargine,Hum.rec.anlog (Basaglar Kwikpen U-100) 100 Unit/1 Ml Insuln.pen, 20 UNIT SC DAILY, EA 06/11/18 Ergocalciferol (Vitamin D2) (VITAMIN D2) 2,000 Unit Tablet, 2000 UNIT PO DAILY, TAB 06/11/18 Alendronate Sodium* (Fosamax*) 70 Mg Tablet, 70 MG PO Q7D PRN for QMONDAYS, #4 TAB 06/11/18 Atenolol* (Atenolol*) 25 Mg Tablet, 25 MG PO BID, #60 TAB 06/11/18 Ferrous Sulfate (Ferrous Sulfate) 325 Mg Tablet.dr, 325 MG PO DAILY 06/11/18 Aspirin* (Aspirin* EC) 81 Mg Tablet.dr, 81 MG PO DAILY, TAB 06/11/18 Empagliflozin (Jardiance) 10 Mg Tablet, 10 MG PO DAILY, TAB 06/11/18 Esomeprazole Mag Trihydrate (Nexium) 20 Mg Capsule.dr, 20 MG PO AC BREAKFAST, #30 CAP 06/11/18 Gabapentin* (Gabapentin*) 100 Mg Capsule, 100 MG PO QHS, #90 CAP 06/11/18 Meloxicam* (Meloxicam*) 7.5 Mg Tablet, 7.5 MG PO DAILY, #30 TAB 06/11/18 Calcium Carbonate/Vitamin D3 (OYSTER SHELL 500 MG + VIT D TB) 1 Each Tablet, 1 EACH PO BID, TAB 06/11/18 Docusate Sodium* (Colace*) 100 Mg Capsule, 100 MG PO TID, #60 CAP 06/11/18 Metformin* (Glucophage*) 500 Mg Tab, 500 MG PO BID, #90 TAB 06/11/18 Atorvastatin* (Atorvastatin*) 40 Mg Tablet, 40 MG PO QHS, #30 TAB 06/11/18 Allopurinol* (Allopurinol*) 100 Mg Tablet, 100 MG PO BID, TAB 06/11/18 Discontinued Reported Medications Alendronate Sodium* (Fosamax*) 70 Mg Tablet, 70 MG PO Q7D, #4 TAB 06/11/18 Medications Current Medications Ondansetron HCl (Zofran Inj) 4 mg ER BRIDGE PRN IV NAUSEA/VOMITING; Start 06/25/18 at 06:30; Stop 06/26/18 at 06:29 Acetaminophen (Tylenol Tab) 650 mg ER BRIDGE PRN PO .MILD PAIN 1-3 OR TEMP; Start 06/25/18 at 06:30; Stop 06/26/18 at 06:29 Insulin Glargine (Lantus) 30 units BID SC Last administered on 06/25/18at 12:46; Admin Dose 30 UNITS; Start 06/25/18 at 11:30 Amiodarone HCl (Cordarone) 200 mg BID PO Last administered on 06/25/18at 13:04; Admin Dose 200 MG; Start 06/25/18 at 11:30 Aspirin (Halfprin) 81 mg DAILY PO Last administered on 06/25/18at 12:44; Admin Dose 81 MG; Start 06/25/18 at 11:30 Atorvastatin Calcium (Lipitor) 40 mg QHS PO ; Start 06/25/18 at 21:00 Carvedilol (Coreg) 3.125 mg BID PO Last administered on 06/25/18at 13:05; Admin Dose 3.125 MG; Start 06/25/18 at 11:30 Clonidine (Catapres) 0.1 mg Q8 PO ; Start 06/25/18 at 14:00 Docusate Sodium (Colace) 100 mg TID PO Last administered on 06/25/18at 12:44; Admin Dose 100 MG; Start 06/25/18 at 13:00 Miscellaneous Information 1 ea NOTE XX ; Start 06/25/18 at 11:30 Glucose (Glutose) 15 gm Q15M PRN PO DECREASED GLUCOSE; Start 06/25/18 at 11:30 Glucose (Glutose) 22.5 gm Q15M PRN PO DECREASED GLUCOSE; Start 06/25/18 at 11:30 Dextrose (D50w Syringe) 25 ml Q15M PRN IV DECREASED GLUCOSE; Start 06/25/18 at 11:30 Dextrose (D50w Syringe) 50 ml Q15M PRN IV DECREASED GLUCOSE; Start 06/25/18 at 11:30 Glucagon (Glucagen) 1 mg Q15M PRN IM DECREASED GLUCOSE; Start 06/25/18 at 11:30 Glucose (Glutose) 15 gm Q15M PRN BUCCAL DECREASED GLUCOSE; Start 06/25/18 at 11:30 Miscellaneous Information (* Miscellaneous Pharmacy Order) DC previous hepa... ONCE ONCE XX ; Start 06/25/18 at 13:00; Stop 06/25/18 at 13:01; Status UNV Heparin Sodium (Porcine) (Heparin (1000 Units/ml)) 7,000 unit PER PROTOCOL PRN IV aPTT<47; Start 06/25/18 at 13:00; Status UNV Heparin Sodium (Porcine) (Heparin (1000 Units/ml)) 3,500 unit PER PROTOCOL PRN IV aPTT<47-57; Start 06/25/18 at 13:00; Status UNV Heparin Sodium (Porcine) 250 ml @ 0 mls/hr PER PROTOCOL IV ; Start 06/25/18 at 13:00; Status UNV Allergies: Coded Allergies: No Known Allergies (Verified Allergy, Unknown, 06/11/18) Past Surgical History Past Surgical Hx: coronary bypass surgery, other (Partial nephrectomy) Social History Alcohol Use: none Smoking Status: Never smoker Exam/Review of Systems Vital Signs Vitals Vital Signs Date Temp Pulse Resp B/P (MAP) Pulse Ox O2 O2 Flow FiO2 Time Delivery Rate 06/25/18 66 20 128/58 100 Nasal 3.0 09:53 (81) Cannula 06/25/18 97.6 07:00 Exam Constitutional: alert, oriented (No apparent distress) Head: normocephalic Respiratory: other (Coarse breath sounds bilaterally, mild scattered crackles) Cardiovascular: irregular rhythm (S1-S2 heard) Gastrointestinal: soft, non-tender, bowel sounds Extremities: other (Trace lower extremity edema, pain with palpation of left leg more so below the knee, slight decrease in temperature compared to right leg) Labs Result Diagram: 06/25/18 1308 06/25/18 0128 Results 24hrs Laboratory Tests Test 06/25/18 00:39 06/25/18 01:28 06/25/18 03:11 06/25/18 05:29 Blood Gas Blood arterial Specimen Source Arterial Blood 06/25/2018 12:50: Date Drawn 14 AM Arterial Blood pH 7.242 *L (Temp corrected) Arterial Blood 47.8 H pCO2 (Temp correct) Arterial Blood 387.3 H pO2 (Temp corrected) Arterial Blood 20.1 L HCO3 Arterial Blood -7.2 L Base Excess Arterial Blood 99.2 Oxygen Saturation Campos Test N/A Arterial Blood Right Brachial Gas Puncture Site Arterial 0.3 Blood Carboxyhemo globin Arterial Blood 0.2 Methemoglobin Blood Gas A-a O2 277.9 H Differential Oxyhemoglobin 98.7 Percent Blood Gas 37.0 Temperature Blood Gas MASK - NRB Modality FiO2 100.0 Blood Gas G ROMELIA DARLING Critical Value Read Back Blood Gas UP Notified Whom Blood Gas 06/25/2018 1:04:2 Notified Time 3 AM White Blood Count 21.9 #H Red Blood Count 3.80 L Hemoglobin 10.6 L Hematocrit 34.0 L Mean Corpuscular 89.5 Volume Mean Corpuscular 27.9 L Hemoglobin Mean Corpuscular 31.2 L Hemoglobin Concen t Red Cell 13.0 Distribution Width Platelet Count 285 Mean Platelet 12.3 H Volume Immature 1.500 H Granulocytes % Neutrophils % 89.6 H Lymphocytes % 4.7 L Monocytes % 3.4 Eosinophils % 0.4 Basophils % 0.4 Nucleated Red 0.0 Blood Cells % Immature 0.330 H Granulocytes # Neutrophils # 19.7 H Lymphocytes # 1.0 Monocytes # 0.7 Eosinophils # 0.1 Basophils # 0.1 Nucleated Red 0.0 Blood Cells # Prothrombin Time 13.1 Prothrombin Time 1.0 Ratio INR International 0.98 Normalized Ratio Activated 24.3 Partial Thrombopl ast Time Sodium Level 138 Potassium Level 5.6 H Chloride Level 99 Carbon Dioxide 22 Level Anion Gap 17 H Blood Urea 67 H Nitrogen Creatinine 3.95 H Est Glomerular Filtrat Rate mL/min Glucose Level 289 H Calcium Level 10.0 Troponin I 0.058 B-Type 3980 H Natriuretic Peptide Lactic Acid Level 1.7 1.2 Test 06/25/18 07:19 06/25/18 07:40 06/25/18 07:47 06/25/18 11:42 Bedside Glucose 240 H Urine Color COLORLESS Urine Clarity CLEAR Urine pH 5.0 Urine Specific 1.002 L [place] Urine Ketones NEGATIVE Urine Nitrite NEGATIVE Urine Bilirubin NEGATIVE Urine NEGATIVE Urobilinogen Urine Leukocyte NEGATIVE Esterase Urine Microscopic 6 H RBC Urine Microscopic 3 WBC Urine Bacteria FEW A Urine Hemoglobin 2+ H Urine Glucose 3+ H Urine Total NEGATIVE Protein Lactic Acid Level 1.1 Lab Scanned LAB Report Test 06/25/18 11:46 06/25/18 12:49 06/25/18 13:08 Bedside Glucose 184 169 White Blood Count 11.3 #H Red Blood Count 3.64 L Hemoglobin 10.2 L Hematocrit 32.5 L Mean Corpuscular 89.3 Volume Mean Corpuscular 28.0 L Hemoglobin Mean Corpuscular 31.4 L Hemoglobin Concen t Red Cell 12.8 Distribution Width Platelet Count 257 Mean Platelet 12.3 H Volume Immature 0.500 H Granulocytes % Neutrophils % 74.7 Lymphocytes % 17.6 Monocytes % 6.2 Eosinophils % 0.6 Basophils % 0.4 Nucleated Red 0.0 Blood Cells % Immature 0.060 H Granulocytes # Neutrophils # 8.5 H Lymphocytes # 2.0 Monocytes # 0.7 Eosinophils # 0.1 Basophils # 0.0 Nucleated Red 0.0 Blood Cells # Imaging Imaging ECG with atrial fibrillation in the 90s, anteroseptal Q waves, QRS 118 ms, nonspecific ST abnormalities Medications Medications Current Medications Ondansetron HCl (Zofran Inj) 4 mg ER BRIDGE PRN IV NAUSEA/VOMITING; Start 06/25/18 at 06:30; Stop 06/26/18 at 06:29 Acetaminophen (Tylenol Tab) 650 mg ER BRIDGE PRN PO .MILD PAIN 1-3 OR TEMP; Start 06/25/18 at 06:30; Stop 06/26/18 at 06:29 Insulin Glargine (Lantus) 30 units BID SC Last administered on 06/25/18at 12:46; Admin Dose 30 UNITS; Start 06/25/18 at 11:30 Amiodarone HCl (Cordarone) 200 mg BID PO Last administered on 06/25/18at 13:04; Admin Dose 200 MG; Start 06/25/18 at 11:30 Aspirin (Halfprin) 81 mg DAILY PO Last administered on 06/25/18at 12:44; Admin Dose 81 MG; Start 06/25/18 at 11:30 Atorvastatin Calcium (Lipitor) 40 mg QHS PO ; Start 06/25/18 at 21:00 Carvedilol (Coreg) 3.125 mg BID PO Last administered on 06/25/18at 13:05; Admin Dose 3.125 MG; Start 06/25/18 at 11:30 Clonidine (Catapres) 0.1 mg Q8 PO ; Start 06/25/18 at 14:00 Docusate Sodium (Colace) 100 mg TID PO Last administered on 06/25/18at 12:44; Admin Dose 100 MG; Start 06/25/18 at 13:00 Miscellaneous Information 1 ea NOTE XX ; Start 06/25/18 at 11:30 Glucose (Glutose) 15 gm Q15M PRN PO DECREASED GLUCOSE; Start 06/25/18 at 11:30 Glucose (Glutose) 22.5 gm Q15M PRN PO DECREASED GLUCOSE; Start 06/25/18 at 11:30 Dextrose (D50w Syringe) 25 ml Q15M PRN IV DECREASED GLUCOSE; Start 06/25/18 at 11:30 Dextrose (D50w Syringe) 50 ml Q15M PRN IV DECREASED GLUCOSE; Start 06/25/18 at 11:30 Glucagon (Glucagen) 1 mg Q15M PRN IM DECREASED GLUCOSE; Start 06/25/18 at 11:30 Glucose (Glutose) 15 gm Q15M PRN BUCCAL DECREASED GLUCOSE; Start 06/25/18 at 11:30 Miscellaneous Information (* Miscellaneous Pharmacy Order) DC previous hepa... O NCE ONCE XX ; Start 06/25/18 at 13:00; Stop 06/25/18 at 13:01; Status UNV Heparin Sodium (Porcine) (Heparin (1000 Units/ml)) 7,000 unit PER PROTOCOL PRN IV aPTT<47; Start 06/25/18 at 13:00; Status UNV Heparin Sodium (Porcine) (Heparin (1000 Units/ml)) 3,500 unit PER PROTOCOL PRN IV aPTT<47-57; Start 06/25/18 at 13:00; Status UNV Heparin Sodium (Porcine) 250 ml @ 0 mls/hr PER PROTOCOL IV ; Start 06/25/18 at 13:00; Status UNV Alex Chávez DO Jun 25, 2018 13:38
[2018-06-25] MEDS: HEPARIN 25000 UNITS/250 ML 250 ML IV SCH (14:19)
--- NOTE | 2018-06-25 15:39 | RADRPT ---
Echocardiogram Report Patient Name: Bhavani COLEMAN ID: [id number] : 1935 (82y 6m)Study Date: 06/25/2018 12:44:58 PM Gender: FAccession #: [id number] Tech: Gely Brink [facility] Location: [facility] Ref.Physician: ELMER ESPITIA Height(Cm): BSA: Weight(Kg): Quality: AdequateAccount #: Procedures: Echocardiographic Report: Transthoracic echocardiogram examination. Indications: Rt atrial thrombus. Findings: Left Ventricle: Lower limits of normal left ventricular systolic function. The left ventricular ejection fraction is visually estimated at 50 %. Right Atrium: Right atrial echo dense structure seen, as well as in the IVC. Differential includes but not limited to thrombus, tumor or vegetation. IVC: Echo dense structure extended into the IVC. Conclusions: Lower limits of normal left ventricular systolic function. The left ventricular ejection fraction is visually estimated at 50 %. Right atrial echo dense structure seen, as well as in the IVC. Differential includes but not limited to thrombus, tumor or vegetation. n. Electronically Signed By: Elmer Espitia 2018-06-25 15:38:32 PDT
--- NOTE | 2018-06-25 19:32 | HP ---
DATE OF ADMISSION: 06/25/2018 HISTORY OF PRESENT ILLNESS: The patient is an 82-year-old female. This is a patient who was just di scharged from the hospital over a couple of weeks ago or less than 2 weeks ago for acute CHF, atrial fibrillation and kidney tumor which at that time I had long discussion with the family. They did not want any further procedure for the kidney cancer, just medical treatment for the atrial fibrillation and her diabetes with chronic kidney disease. The patient comes in today for pain that started marleen y morning, late night of left lower extremity below the knee. She started having a feeling of shooti ng pain, does not feel the leg below the knee, severe cramping shooting pain and coldness over the le ft leg. She has had history of neuropathy of the lower extremities because of her diabetes but this is different than before and she has severe pain. That is why she came into the emergency room. She has past medical history of chronic kidney disease. She has a cardiomyopathy with ejection fraction of 50. She has paroxysmal atrial fibrillation with tricuspid valve structures. She has history of coronary artery disease with history of CABG in the past many years ago, history of renal carcinoma, status post partial nephrectomy of the left kidney 11 years ago and at this time recurrence of the tu mor where she opted not having any surgery. PAST MEDICAL HISTORY: Hypertension, diabetes mellitus, gastroesophageal reflux disease. HOME MEDICATIONS: The patient is on: 1. Clonidine 0.1 mg on p.r.n. basis. 2. Lasix 20 mg p.o. daily. 3. Carvedilol 3.125 twice a day. 4. Amiodarone 200 mg twice a day. 5. Trulicity 0.75 once a week. 6. Insulin basaglar 20 units twice a day. 7. Vitamin D, Fosamax once a week. 8. Atenolol 25 which was discontinued last visit. 9. Ferrous sulfate 325 twice a day. 10. Aspirin 81 once a day. 11. Jardiance 10 once a day. 12. Esomeprazole 20 once a day. 13. Gabapentin 100 twice a day. 14. Meloxicam was also discontinued last visit. 15. Docusate on p.r.n. basis. 16. Metformin was also discontinued last visit. 17. Atorvastatin 40 mg once a day. 18. Allopurinol 100 once a day. PAST SURGICAL HISTORY: As I mentioned above, coronary artery bypass surgery and partial nephrectomy secondary to renal cell carcinoma. SOCIAL HISTORY: Never smoked. No history of alcohol abuse or drug abuse. REVIEW OF SYSTEMS: The patient denies of any headaches. She denies of any chest pain. She has a li ttle bit of shortness of breath on exertion. She denies of any cough, sputum production. No fever o r chills. She denies of any abdominal pain, nausea, vomiting. She denies of any hesitancy, urgency or pain during urination. PHYSICAL EXAMINATION: VITAL SIGNS: Blood pressure is 128/58, saturating 100% on 3 liters, pulse is 66, respiratory rate 18 . She is afebrile. HEENT: Head is atraumatic, normocephalic. Pupils are equal and reactive to light. Extraocular musc les are intact. Nares are clear. No obstruction, no deviation of septum. Oral cavity: Normal oral hygiene. Ear canals are clear. No signs of inflammation or infection. Tympanic membranes are inta ct. NECK: Supple. No JVD, no surgical scars, no lymph nodes palpable over the neck. CHEST: AP contour is within normal limits. BREASTS: Nipples are normal. No nipple retraction. HEART: Irregular rhythm. S1, S2 heard with PVCs extrasystole. ABDOMEN: Soft. Positive bowel sounds. No hepatosplenomegaly, no masses palpable over the abdomen a nd no rebound tenderness. EXTREMITIES: Left lower extremity is tender than the right one, colder than the right one. She has a small bruise on the toe of that foot and decreased pulses over the left side. Also diminished from the right side, but more over the left side. LABORATORY RESULTS: CBC: White count is 11.3, hemoglobin is 10.2, hematocrit 32.5, platelets 257. Chemistry: She has elevated potassium, sodium is 138, BUN 67, creatinine 3.95 and blood sugar is 289 . DIAGNOSTIC DATA: EKG shows atrial fibrillation. No acute ST changes. ADMITTING DIAGNOSES: 1. Peripheral arterial disease of the lower extremities, left more than right. 2. Possible calcified clot in the left lower extremity poor circulation. 3. Type 2 diabetes mellitus, uncontrolled. 4. Atrial fibrillation. 5. Renal cell carcinoma. 6. Gastroesophageal reflux disease. 7. Hypertension. 8. Atherosclerotic vascular disease. PLAN: I discussed with the son regarding the severity of illness of the lower extremity and explaine d to the son that most probably the clots are due to her carcinoma being hypercoagulable state due to which she has always clots and explained to him that the patient's kidney functions are not good eit her, about 80% kidney function loss and to have an angiogram and vascular studies done for sure diagn ose the problem. The patient would need angiogram with a diet which will also increase the severity of kidney failure, so I explained to the son in detail and decision will be made. I also discussed w ith Dr. Dawson, the vascular surgeon, the stage driver, Dr. Castaneda and Dr. Chávez, the cardiologi . The patient will be admitted to [facility]. We will evaluate further and we will have a plan. Dictated By: NUBIA TEJEDA MD SB/NTS Conf#: [id number] DID#: [id number] CC: MAGALIS TANG MD;*EndCC*
[2018-06-25 19:54] VITALS: PULSE 63
[2018-06-25 20:00] VITALS: BP 137/65; PULSE 62; RESP 18; Ht 152.4 cm; Wt 72.7 kg
--- NOTE | 2018-06-25 20:16 | CONS ---
Assessment/Plan Assessment/Plan Assessment/Plan (Daily) Peripheral vascular disease with left lower extremity ischemia Renal failure with creatinine of 3.95 Assessment atrial fibrillation Will need angiogram with a possible intervention however her creatinine is 3.95 Ischemic condition has improved since she has been on heparin Monitor the creatinine and proceed with surgery when she stabilizes We will discuss with the primary physician and nephrology Consultation Date/Type/Reason Admit Date/Time Date of Consultation: Jun 25, 2018 Type of Consult Vascular surgery Reason for Consultation Peripheral vascular disease Date/Time of Note DATE: 06/25/18 TIME: 20:10 Hx of Present Illness 82-year-old female status post coronary artery bypass grafting with veins taken from the left lower extremity Patient also has a history of atrial fibrillation left kidney tumor she started having pain in the lower extremities bilaterally worse on the left than the right severe cramping shooting pain coldness of the left leg her ultrasound has been done which shows very little flow below the left common femoral artery she has had cardiomyopathy with ejection fraction 50% she is also has paroxysmal atrial fibrillation and she is undergone a CABG with veins taken from the left lower extremity she has a history of renal carcinoma status post partial nephrectomy with renal failure at the present time ENT: No no complaints, No bleeding, No pain, No congestion, No discharge, No dysphagia, No sore throat, No other Cardiovascular: no complaints Gastrointestinal: no complaints Genitourinary: no complaints Musculoskeletal: no complaints Past Medical History Home Meds Reported Medications Clonidine Hcl* (Clonidine Hcl*) 0.1 Mg Tab, 0.1 MG PO Q8, TAB 06/25/18 Furosemide* (Furosemide*) 20 Mg Tablet, 20 MG PO DAILY 06/25/18 Carvedilol* (Carvedilol*) 3.125 Mg Tablet, 3.125 MG PO BID for 30 Days, #60 06/25/18 Amiodarone Hcl* (Amiodarone Hcl*) 200 Mg Tablet, 200 MG PO BID, #60 TAB 06/17/18 Dulaglutide (Trulicity) 0.75 Mg/0.5 Ml Pen.injctr, 1.75 MG SQ WEEKLY 06/11/18 Insulin Glargine,Hum.rec.anlog (Basaglar Kwikpen U-100) 100 Unit/1 Ml Insuln.pen, 20 UNIT SC DAILY, EA 06/11/18 Ergocalciferol (Vitamin D2) (VITAMIN D2) 2,000 Unit Tablet, 2000 UNIT PO DAILY, TAB 06/11/18 Alendronate Sodium* (Fosamax*) 70 Mg Tablet, 70 MG PO Q7D PRN for QMONDAYS, #4 TAB 06/11/18 Atenolol* (Atenolol*) 25 Mg Tablet, 25 MG PO BID, #60 TAB 06/11/18 Ferrous Sulfate (Ferrous Sulfate) 325 Mg Tablet.dr, 325 MG PO DAILY 06/11/18 Aspirin* (Aspirin* EC) 81 Mg Tablet.dr, 81 MG PO DAILY, TAB 06/11/18 Empagliflozin (Jardiance) 10 Mg Tablet, 10 MG PO DAILY, TAB 06/11/18 Esomeprazole Mag Trihydrate (Nexium) 20 Mg Capsule.dr, 20 MG PO AC BREAKFAST, #30 CAP 06/11/18 Gabapentin* (Gabapentin*) 100 Mg Capsule, 100 MG PO QHS, #90 CAP 06/11/18 Meloxicam* (Meloxicam*) 7.5 Mg Tablet, 7.5 MG PO DAILY, #30 TAB 06/11/18 Calcium Carbonate/Vitamin D3 (OYSTER SHELL 500 MG + VIT D TB) 1 Each Tablet, 1 EACH PO BID, TAB 06/11/18 Docusate Sodium* (Colace*) 100 Mg Capsule, 100 MG PO TID, #60 CAP 06/11/18 Metformin* (Glucophage*) 500 Mg Tab, 500 MG PO BID, #90 TAB 06/11/18 Atorvastatin* (Atorvastatin*) 40 Mg Tablet, 40 MG PO QHS, #30 TAB 06/11/18 Allopurinol* (Allopurinol*) 100 Mg Tablet, 100 MG PO BID, TAB 06/11/18 Discontinued Reported Medications Alendronate Sodium* (Fosamax*) 70 Mg Tablet, 70 MG PO Q7D, #4 TAB 06/11/18 Medications Current Medications Ondansetron HCl (Zofran Inj) 4 mg ER BRIDGE PRN IV NAUSEA/VOMITING; Start 06/25/18 at 06:30; Stop 06/26/18 at 06:29 Acetaminophen (Tylenol Tab) 650 mg ER BRIDGE PRN PO .MILD PAIN 1-3 OR TEMP; Start 06/25/18 at 06:30; Stop 06/26/18 at 06:29 Insulin Glargine (Lantus) 30 units BID SC Last administered on 06/25/18at 12:46; Admin Dose 30 UNITS; Start 06/25/18 at 11:30 Amiodarone HCl (Cordarone) 200 mg BID PO Last administered on 06/25/18at 13:04; Admin Dose 200 MG; Start 06/25/18 at 11:30 Aspirin (Halfprin) 81 mg DAILY PO Last administered on 06/25/18at 12:44; Admin Dose 81 MG; Start 06/25/18 at 11:30 Atorvastatin Calcium (Lipitor) 40 mg QHS PO ; Start 06/25/18 at 21:00 Carvedilol (Coreg) 3.125 mg BID PO Last administered on 06/25/18at 13:05; Admin Dose 3.125 MG; Start 06/25/18 at 11:30 Clonidine (Catapres) 0.1 mg Q8 PO ; Start 06/25/18 at 14:00 Docusate Sodium (Colace) 100 mg TID PO Last administered on 06/25/18at 12:44; Admin Dose 100 MG; Start 06/25/18 at 13:00 Miscellaneous Information 1 ea NOTE XX ; Start 06/25/18 at 11:30 Glucose (Glutose) 15 gm Q15M PRN PO DECREASED GLUCOSE; Start 06/25/18 at 11:30 Glucose (Glutose) 22.5 gm Q15M PRN PO DECREASED GLUCOSE; Start 06/25/18 at 11:30 Dextrose (D50w Syringe) 25 ml Q15M PRN IV DECREASED GLUCOSE; Start 06/25/18 at 11:30 Dextrose (D50w Syringe) 50 ml Q15M PRN IV DECREASED GLUCOSE; Start 06/25/18 at 11:30 Glucagon (Glucagen) 1 mg Q15M PRN IM DECREASED GLUCOSE; Start 06/25/18 at 11:30 Glucose (Glutose) 15 gm Q15M PRN BUCCAL DECREASED GLUCOSE; Start 06/25/18 at 11:30 Heparin Sodium (Porcine) (Heparin (1000 Units/ml)) 7,000 unit PER PROTOCOL PRN IV aPTT<47; Start 06/25/18 at 13:00 Heparin Sodium (Porcine) (Heparin (1000 Units/ml)) 3,500 unit PER PROTOCOL PRN IV aPTT<47-57; Start 06/25/18 at 13:00 Heparin Sodium (Porcine) 250 ml @ 0 mls/hr PER PROTOCOL IV Last administered on 06/25/18at 14:19; Admin Dose 16 MLS/HR; Start 06/25/18 at 13:00 Allergies: Coded Allergies: No Known Allergies (Verified Allergy, Unknown, 06/11/18) Past Surgical History Past Surgical Hx: coronary bypass surgery, other (Partial nephrectomy) Social History Alcohol Use: none Smoking Status: Never smoker Exam/Review of Systems Exam Vitals Vital Signs Date Temp Pulse Resp B/P (MAP) Pulse Ox O2 O2 Flow FiO2 Time Delivery Rate 06/25/18 96.3 64 19 142/66 100 Nasal 3.0 19:00 (91) Cannula Intake and Output 06/24/18 06/24/18 06/25/18 1515:00 23:00 07:00 IntakeIntake Total 250 ml BalanceBalance 250 ml Eyes: nl conjunctiva, EOMI, nl lids, nl sclera, PERRL ENMT: nl external ears & nose, nl lips & teeth, nl nasal mucosa & septum Neck: supple, non-tender Respiratory: clear to auscultation, normal air movement Cardiovascular: regular rate and rhythm, nl pulses Gastrointestinal: soft, nl liver, spleen, non-tender Musculoskeletal: nl extremities to inspection, nl gait and stance Additional Comments Patient has right common femoral artery pulsation right popliteal is weak right pedal pulses are weak left femoral pulses are weak and I cannot palpate left popliteal or pedal pulses both feet are cool to touch with capillary refills on the right side about 2 seconds on the left side about 3 seconds patient is able to move the feet with no signs of tissue loss Results Result Diagram: 06/25/18 1308 06/25/18 0128 Results 24hrs Laboratory Tests Test 06/25/18 00:39 06/25/18 01:28 06/25/18 03:11 06/25/18 05:29 Blood Gas Blood arterial Specimen Source Arterial Blood 06/25/2018 12:50: Date Drawn 14 AM Arterial Blood pH 7.242 *L (Temp corrected) Arterial Blood 47.8 H pCO2 (Temp correct) Arterial Blood 387.3 H pO2 (Temp corrected) Arterial Blood 20.1 L HCO3 Arterial Blood -7.2 L Base Excess Arterial Blood 99.2 Oxygen Saturation Campos Test N/A Arterial Blood Right Brachial Gas Puncture Site Arterial 0.3 Blood Carboxyhemo globin Arterial Blood 0.2 Methemoglobin Blood Gas A-a O2 277.9 H Differential Oxyhemoglobin 98.7 Percent Blood Gas 37.0 Temperature Blood Gas MASK - NRB Modality FiO2 100.0 Blood Gas G ROMELIA DARLING Critical Value Read Back Blood Gas UP Notified Whom Blood Gas 06/25/2018 1:04:2 Notified Time 3 AM White Blood Count 21.9 #H Red Blood Count 3.80 L Hemoglobin 10.6 L Hematocrit 34.0 L Mean Corpuscular 89.5 Volume Mean Corpuscular 27.9 L Hemoglobin Mean Corpuscular 31.2 L Hemoglobin Concen t Red Cell 13.0 Distribution Width Platelet Count 285 Mean Platelet 12.3 H Volume Immature 1.500 H Granulocytes % Neutrophils % 89.6 H Lymphocytes % 4.7 L Monocytes % 3.4 Eosinophils % 0.4 Basophils % 0.4 Nucleated Red 0.0 Blood Cells % Immature 0.330 H Granulocytes # Neutrophils # 19.7 H Lymphocytes # 1.0 Monocytes # 0.7 Eosinophils # 0.1 Basophils # 0.1 Nucleated Red 0.0 Blood Cells # Prothrombin Time 13.1 Prothrombin Time 1.0 Ratio INR International 0.98 Normalized Ratio Activated 24.3 Partial Thrombopl ast Time Sodium Level 138 Potassium Level 5.6 H Chloride Level 99 Carbon Dioxide 22 Level Anion Gap 17 H Blood Urea 67 H Nitrogen Creatinine 3.95 H Est Glomerular Filtrat Rate mL/min Glucose Level 289 H Calcium Level 10.0 Troponin I 0.058 B-Type 3980 H Natriuretic Peptide Lactic Acid Level 1.7 1.2 Test 06/25/18 07:19 06/25/18 07:40 06/25/18 07:47 06/25/18 11:42 Bedside Glucose 240 H Urine Color COLORLESS Urine Clarity CLEAR Urine pH 5.0 Urine Specific 1.002 L [place] Urine Ketones NEGATIVE Urine Nitrite NEGATIVE Urine Bilirubin NEGATIVE Urine NEGATIVE Urobilinogen Urine Leukocyte NEGATIVE Esterase Urine Microscopic 6 H RBC Urine Microscopic 3 WBC Urine Bacteria FEW A Urine Hemoglobin 2+ H Urine Glucose 3+ H Urine Total NEGATIVE Protein Lactic Acid Level 1.1 Lab Scanned LAB Report Test 06/25/18 11:46 06/25/18 12:49 06/25/18 13:08 Bedside Glucose 184 169 White Blood Count 11.3 #H Red Blood Count 3.64 L Hemoglobin 10.2 L Hematocrit 32.5 L Mean Corpuscular 89.3 Volume Mean Corpuscular 28.0 L Hemoglobin Mean Corpuscular 31.4 L Hemoglobin Concen t Red Cell 12.8 Distribution Width Platelet Count 257 Mean Platelet 12.3 H Volume Immature 0.500 H Granulocytes % Neutrophils % 74.7 Lymphocytes % 17.6 Monocytes % 6.2 Eosinophils % 0.6 Basophils % 0.4 Nucleated Red 0.0 Blood Cells % Immature 0.060 H Granulocytes # Neutrophils # 8.5 H Lymphocytes # 2.0 Monocytes # 0.7 Eosinophils # 0.1 Basophils # 0.0 Nucleated Red 0.0 Blood Cells # Prothrombin Time 13.5 Prothrombin Time 1.1 Ratio INR International 1.02 Normalized Ratio Activated 23.9 Partial Thrombopl ast Time Medications Medication Current Medications Ondansetron HCl (Zofran Inj) 4 mg ER BRIDGE PRN IV NAUSEA/VOMITING; Start 06/25/18 at 06:30; Stop 06/26/18 at 06:29 Acetaminophen (Tylenol Tab) 650 mg ER BRIDGE PRN PO .MILD PAIN 1-3 OR TEMP; Start 06/25/18 at 06:30; Stop 06/26/18 at 06:29 Insulin Glargine (Lantus) 30 units BID SC Last administered on 06/25/18at 12:46; Admin Dose 30 UNITS; Start 06/25/18 at 11:30 Amiodarone HCl (Cordarone) 200 mg BID PO Last administered on 06/25/18at 13:04; Admin Dose 200 MG; Start 06/25/18 at 11:30 Aspirin (Halfprin) 81 mg DAILY PO Last administered on 06/25/18at 12:44; Admin Dose 81 MG; Start 06/25/18 at 11:30 Atorvastatin Calcium (Lipitor) 40 mg QHS PO ; Start 06/25/18 at 21:00 Carvedilol (Coreg) 3.125 mg BID PO Last administered on 06/25/18at 13:05; Admin Dose 3.125 MG; Start 06/25/18 at 11:30 Clonidine (Catapres) 0.1 mg Q8 PO ; Start 06/25/18 at 14:00 Docusate Sodium (Colace) 100 mg TID PO Last administered on 06/25/18at 12:44; Admin Dose 100 MG; Start 06/25/18 at 13:00 Miscellaneous Information 1 ea NOTE XX ; Start 06/25/18 at 11:30 Glucose (Glutose) 15 gm Q15M PRN PO DECREASED GLUCOSE; Start 06/25/18 at 11:30 Glucose (Glutose) 22.5 gm Q15M PRN PO DECREASED GLUCOSE; Start 06/25/18 at 11:30 Dextrose (D50w Syringe) 25 ml Q15M PRN IV DECREASED GLUCOSE; Start 06/25/18 at 11:30 Dextrose (D50w Syringe) 50 ml Q15M PRN IV DECREASED GLUCOSE; Start 06/25/18 at 11:30 Glucagon (Glucagen) 1 mg Q15M PRN IM DECREASED GLUCOSE; Start 06/25/18 at 11:30 Glucose (Glutose) 15 gm Q15M PRN BUCCAL DECREASED GLUCOSE; Start 06/25/18 at 11:30 Heparin Sodium (Porcine) (Heparin (1000 Units/ml)) 7,000 unit PER PROTOCOL PRN I V aPTT<47; Start 06/25/18 at 13:00 Heparin Sodium (Porcine) (Heparin (1000 Units/ml)) 3,500 unit PER PROTOCOL PRN IV aPTT<47-57; Start 06/25/18 at 13:00 Heparin Sodium (Porcine) 250 ml @ 0 mls/hr PER PROTOCOL IV Last administered on 06/25/18at 14:19; Admin Dose 16 MLS/HR; Start 06/25/18 at 13:00 KELLEY GARY MD Jun 25, 2018 20:16
[2018-06-25] MEDS: ATORVASTATIN 40 MG TAB PO SCH (21:32)
--- NOTE | 2018-06-25 22:16 | CONS ---
Assessment/Plan Assessment/Plan Assessment/Plan (Daily) - Acute Kidney Injury - Chronic Kidney Disease - DM / DM Nephropathy - Hyperkalemia - CAD / Post CABG - Hx of NSAID use - PVD / Ischemia - CAD / CHF - Anaemia - Hypertension / HTN Nephrosclerosis - High Cholesterol PLAN: - Poorly controlled DM with latest HgA1c > 10% & a long hx of NSAIDs use - BRANDON / CKD secondary to above with severe PVD / HTN Nephrosclerosis - Most probably require intervention which requires IV contrast & high risk Contrast Nephropathy at this point - At this point she is off all Nephrotoxic agents - Continue with Gentle hydration - Watch for sign of volume overload - Check: * URIC ACID * FENa * Urine Eosinophilia * Serial Creatinine check - Will D/W vascular THANK YOU V MUCH Consultation Date/Type/Reason Admit Date/Time Date of Consultation: Jun 25, 2018 Type of Consult - Nephrology Reason for Consultation - Acute Kidney Injury - Chronic Kidney Disease Date/Time of Note DATE: 06/25/18 TIME: 22:08 Hx of Present Illness 82-year-old female with a past medical history of hypertension, hyperlipidemia, diabetes, CHF, arrhythmia, a recent admission for a CHF exacerbation 2 weeks ago who is presenting to the emergency department today for progressive worsening shortness of breath. Over the last few days, the patient has become progressively more dyspneic, unable to catch her breath on her own. An a mbulance was called this evening for her shortness of breath. She was oxygenating in the low 80s. The patient was started on a nonrebreather. The patient was also found to be hypertensive and given nitroglycerin in route to the hospital. The patient does not endorse chest pain, but she does have a heaviness in her chest. She did not endorse any nausea or vomiting. She did not endorse any lightheadedness or dizziness. She is not diaphoretic. Eyes: no complaints ENT: no complaints Respiratory: no complaints Cardiovascular: no complaints Gastrointestinal: no complaints Genitourinary: no complaints Past Medical History Medical History: congestive heart failure, coronary artery disease, diabetes, hypertension, renal disease Home Meds Reported Medications Clonidine Hcl* (Clonidine Hcl*) 0.1 Mg Tab, 0.1 MG PO Q8, TAB 06/25/18 Furosemide* (Furosemide*) 20 Mg Tablet, 20 MG PO DAILY 06/25/18 Carvedilol* (Carvedilol*) 3.125 Mg Tablet, 3.125 MG PO BID for 30 Days, #60 06/25/18 Amiodarone Hcl* (Amiodarone Hcl*) 200 Mg Tablet, 200 MG PO BID, #60 TAB 06/17/18 Dulaglutide (Trulicity) 0.75 Mg/0.5 Ml Pen.injctr, 1.75 MG SQ WEEKLY 06/11/18 Insulin Glargine,Hum.rec.anlog (Basaglar Kwikpen U-100) 100 Unit/1 Ml Insuln.pen, 20 UNIT SC DAILY, EA 06/11/18 Ergocalciferol (Vitamin D2) (VITAMIN D2) 2,000 Unit Tablet, 2000 UNIT PO DAILY, TAB 06/11/18 Alendronate Sodium* (Fosamax*) 70 Mg Tablet, 70 MG PO Q7D PRN for QMONDAYS, #4 TAB 06/11/18 Atenolol* (Atenolol*) 25 Mg Tablet, 25 MG PO BID, #60 TAB 06/11/18 Ferrous Sulfate (Ferrous Sulfate) 325 Mg Tablet.dr, 325 MG PO DAILY 06/11/18 Aspirin* (Aspirin* EC) 81 Mg Tablet.dr, 81 MG PO DAILY, TAB 06/11/18 Empagliflozin (Jardiance) 10 Mg Tablet, 10 MG PO DAILY, TAB 06/11/18 Esomeprazole Mag Trihydrate (Nexium) 20 Mg Capsule.dr, 20 MG PO AC BREAKFAST, #30 CAP 06/11/18 Gabapentin* (Gabapentin*) 100 Mg Capsule, 100 MG PO QHS, #90 CAP 06/11/18 Meloxicam* (Meloxicam*) 7.5 Mg Tablet, 7.5 MG PO DAILY, #30 TAB 06/11/18 Calcium Carbonate/Vitamin D3 (OYSTER SHELL 500 MG + VIT D TB) 1 Each Tablet, 1 EACH PO BID, TAB 06/11/18 Docusate Sodium* (Colace*) 100 Mg Capsule, 100 MG PO TID, #60 CAP 06/11/18 Metformin* (Glucophage*) 500 Mg Tab, 500 MG PO BID, #90 TAB 06/11/18 Atorvastatin* (Atorvastatin*) 40 Mg Tablet, 40 MG PO QHS, #30 TAB 06/11/18 Allopurinol* (Allopurinol*) 100 Mg Tablet, 100 MG PO BID, TAB 06/11/18 Discontinued Reported Medications Alendronate Sodium* (Fosamax*) 70 Mg Tablet, 70 MG PO Q7D, #4 TAB 06/11/18 Medications Current Medications Ondansetron HCl (Zofran Inj) 4 mg ER BRIDGE PRN IV NAUSEA/VOMITING; Start 06/25/18 at 06:30; Stop 06/26/18 at 06:29 Acetaminophen (Tylenol Tab) 650 mg ER BRIDGE PRN PO .MILD PAIN 1-3 OR TEMP; Start 06/25/18 at 06:30; Stop 06/26/18 at 06:29 Insulin Glargine (Lantus) 30 units BID SC Last administered on 06/25/18at 12:46; Admin Dose 30 UNITS; Start 06/25/18 at 11:30 Amiodarone HCl (Cordarone) 200 mg BID PO Last administered on 06/25/18at 21:32; Admin Dose 200 MG; Start 06/25/18 at 11:30 Aspirin (Halfprin) 81 mg DAILY PO Last administered on 06/25/18at 12:44; Admin Dose 81 MG; Start 06/25/18 at 11:30 Atorvastatin Calcium (Lipitor) 40 mg QHS PO Last administered on 06/25/18at 21:32; Admin Dose 40 MG; Start 06/25/18 at 21:00 Carvedilol (Coreg) 3.125 mg BID PO Last administered on 06/25/18 21:32; Admin Dose 3.125 MG; Start 06/25/18 at 11:30 Clonidine (Catapres) 0.1 mg Q8 PO Last administered on 06/25/18at 22:03; Admin Dose 0.1 MG; Start 06/25/18 at 14:00 Docusate Sodium (Colace) 100 mg TID PO Last administered on 3/27/19at 21:31; Admin Dose 100 MG; Start 06/25/18 at 13:00 Miscellaneous Information 1 ea NOTE XX ; Start 06/25/18 at 11:30 Glucose (Glutose) 15 gm Q15M PRN PO DECREASED GLUCOSE; Start 06/25/18 at 11:30 Glucose (Glutose) 22.5 gm Q15M PRN PO DECREASED GLUCOSE; Start 06/25/18 at 11:30 Dextrose (D50w Syringe) 25 ml Q15M PRN IV DECREASED GLUCOSE; Start 06/25/18 at 11:30 Dextrose (D50w Syringe) 50 ml Q15M PRN IV DECREASED GLUCOSE; Start 06/25/18 at 11:30 Glucagon (Glucagen) 1 mg Q15M PRN IM DECREASED GLUCOSE; Start 06/25/18 at 11:30 Glucose (Glutose) 15 gm Q15M PRN BUCCAL DECREASED GLUCOSE; Start 06/25/18 at 11:30 Heparin Sodium (Porcine) (Heparin (1000 Units/ml)) 7,000 unit PER PROTOCOL PRN IV aPTT<47; Start 06/25/18 at 13:00 Heparin Sodium (Porcine) (Heparin (1000 Units/ml)) 3,500 unit PER PROTOCOL PRN IV aPTT<47-57; Start 06/25/18 at 13:00 Heparin Sodium (Porcine) 250 ml @ 0 mls/hr PER PROTOCOL IV Last administered on 06/25/18at 14:19; Admin Dose 16 MLS/HR; Start 06/25/18 at 13:00 Diagnostic Test (Pha) (Accu-Chek) 1 ea 02 XX ; Start 06/26/18 at 02:00 Insulin Aspart (Novolog Insulin Pen) NOVOLOG *MILD* ALGORITHM WITH MEALS BEDTIME SC ; Start 06/25/18 at 22:30 Allergies: Coded Allergies: No Known Allergies (Verified Allergy, Unknown, 06/11/18) Past Surgical History Past Surgical Hx: coronary bypass surgery, other (Partial nephrectomy) Social History Alcohol Use: none Smoking Status: Never smoker Drug Use: none Exam/Review of Systems Exam Vitals Vital Signs Date Temp Pulse Resp B/P (MAP) Pulse Ox O2 O2 Flow FiO2 Time Delivery Rate 06/25/18 62 20:00 06/25/18 98.0 18 137/65 99 Nasal 2.0 20:00 (89) Cannula Intake and Output 06/24/18 06/24/18 06/25/18 1515:00 23:00 07:00 IntakeIntake Total 250 ml BalanceBalance 250 ml Constitutional: alert Psych: no complaints Head: normocephalic Respiratory: crackles/rales Cardiovascular: regular rate and rhythm, edema, systolic murmur Gastrointestinal: soft Extremities: cyanosis, edema, tenderness Results Result Diagram: 06/25/18 1308 06/25/18 0128 Results 24hrs Laboratory Tests Test 06/25/18 00:39 06/25/18 01:28 06/25/18 03:11 06/25/18 05:29 Blood Gas Blood arterial Specimen Source Arterial Blood 06/25/2018 12:50: Date Drawn 14 AM Arterial Blood pH 7.242 *L (Temp corrected) Arterial Blood 47.8 H pCO2 (Temp correct) Arterial Blood 387.3 H pO2 (Temp corrected) Arterial Blood 20.1 L HCO3 Arterial Blood -7.2 L Base Excess Arterial Blood 99.2 Oxygen Saturation Campos Test N/A Arterial Blood Right Brachial Gas Puncture Site Arterial 0.3 Blood Carboxyhemo globin Arterial Blood 0.2 Methemoglobin Blood Gas A-a O2 277.9 H Differential Oxyhemoglobin 98.7 Percent Blood Gas 37.0 Temperature Blood Gas MASK - NRB Modality FiO2 100.0 Blood Gas Mary LEÓN MD Critical Value Read Back Blood Gas UP Notified Whom Blood Gas 06/25/2018 1:04:2 Notified Time 3 AM White Blood Count 21.9 #H Red Blood Count 3.80 L Hemoglobin 10.6 L Hematocrit 34.0 L Mean Corpuscular 89.5 Volume Mean Corpuscular 27.9 L Hemoglobin Mean Corpuscular 31.2 L Hemoglobin Concen t Red Cell 13.0 Distribution Width Platelet Count 285 Mean Platelet 12.3 H Volume Immature 1.500 H Granulocytes % Neutrophils % 89.6 H Lymphocytes % 4.7 L Monocytes % 3.4 Eosinophils % 0.4 Basophils % 0.4 Nucleated Red 0.0 Blood Cells % Immature 0.330 H Granulocytes # Neutrophils # 19.7 H Lymphocytes # 1.0 Monocytes # 0.7 Eosinophils # 0.1 Basophils # 0.1 Nucleated Red 0.0 Blood Cells # Prothrombin Time 13.1 Prothrombin Time 1.0 Ratio INR International 0.98 Normalized Ratio Activated 24.3 Partial Thrombopl ast Time Sodium Level 138 Potassium Level 5.6 H Chloride Level 99 Carbon Dioxide 22 Level Anion Gap 17 H Blood Urea 67 H Nitrogen Creatinine 3.95 H Est Glomerular Filtrat Rate mL/min Glucose Level 289 H Calcium Level 10.0 Troponin I 0.058 B-Type 3980 H Natriuretic Peptide Lactic Acid Level 1.7 1.2 Test 06/25/18 07:19 06/25/18 07:40 06/25/18 07:47 06/25/18 11:42 Bedside Glucose 240 H Urine Color COLORLESS Urine Clarity CLEAR Urine pH 5.0 Urine Specific 1.002 L [place] Urine Ketones NEGATIVE Urine Nitrite NEGATIVE Urine Bilirubin NEGATIVE Urine NEGATIVE Urobilinogen Urine Leukocyte NEGATIVE Esterase Urine Microscopic 6 H RBC Urine Microscopic 3 WBC Urine Bacteria FEW A Urine Hemoglobin 2+ H Urine Glucose 3+ H Urine Total NEGATIVE Protein Lactic Acid Level 1.1 Lab Scanned LAB Report Test 06/25/18 11:46 06/25/18 12:49 06/25/18 13:08 06/25/18 20:11 Bedside Glucose 184 169 White Blood Count 11.3 #H Red Blood Count 3.64 L Hemoglobin 10.2 L Hematocrit 32.5 L Mean Corpuscular 89.3 Volume Mean Corpuscular 28.0 L Hemoglobin Mean Corpuscular 31.4 L Hemoglobin Concen t Red Cell 12.8 Distribution Width Platelet Count 257 Mean Platelet 12.3 H Volume Immature 0.500 H Granulocytes % Neutrophils % 74.7 Lymphocytes % 17.6 Monocytes % 6.2 Eosinophils % 0.6 Basophils % 0.4 Nucleated Red 0.0 Blood Cells % Immature 0.060 H Granulocytes # Neutrophils # 8.5 H Lymphocytes # 2.0 Monocytes # 0.7 Eosinophils # 0.1 Basophils # 0.0 Nucleated Red 0.0 Blood Cells # Prothrombin Time 13.5 Prothrombin Time 1.1 Ratio INR International 1.02 Normalized Ratio Activated 23.9 99.7 *H Partial Thrombopl ast Time Test 06/25/18 20:46 Bedside Glucose 181 Medications Medication Current Medications Ondansetron HCl (Zofran Inj) 4 mg ER BRIDGE PRN IV NAUSEA/VOMITING; Start 06/25/18 at 06:30; Stop 06/26/18 at 06:29 Acetaminophen (Tylenol Tab) 650 mg ER BRIDGE PRN PO .MILD PAIN 1-3 OR TEMP; Start 06/25/18 at 06:30; Stop 06/26/18 at 06:29 Insulin Glargine (Lantus) 30 units BID SC Last administered on 06/25/18 12:46; Admin Dose 30 UNITS; Start 06/25/18 at 11:30 Amiodarone HCl (Cordarone) 200 mg BID PO Last administered on 06/25/18 21:32; Admin Dose 200 MG; Start 06/25/18 at 11:30 Aspirin (Halfprin) 81 mg DAILY PO Last administered on 06/25/18 12:44; Admin Dose 81 MG; Start 06/25/18 at 11:30 Atorvastatin Calcium (Lipitor) 40 mg QHS PO Last administered on 06/25/18 21:32; Admin Dose 40 MG; Start 06/25/18 at 21:00 Carvedilol (Coreg) 3.125 mg BID PO Last administered on 06/25/18 21:32; Admin Dose 3.125 MG; Start 06/25/18 at 11:30 Clonidine (Catapres) 0.1 mg Q8 PO Last administered on 06/25/18 22:03; Admin Dose 0.1 MG; Start 06/25/18 at 14:00 Docusate Sodium (Colace) 100 mg TID PO Last administered on 06/25/18 21:31; Admin Dose 100 MG; Start 06/25/18 at 13:00 Miscellaneous Information 1 ea NOTE XX ; Start 06/25/18 at 11:30 Glucose (Glutose) 15 gm Q15M PRN PO DECREASED GLUCOSE; Start 06/25/18 at 11:30 Glucose (Glutose) 22.5 gm Q15M PRN PO DECREASED GLUCOSE; Start 06/25/18 at 11:30 Dextrose (D50w Syringe) 25 ml Q15M PRN IV DECREASED GLUCOSE; Start 06/25/18 at 11:30 Dextrose (D50w Syringe) 50 ml Q15M PRN IV DECREASED GLUCOSE; Start 06/25/18 at 11:30 Glucagon (Glucagen) 1 mg Q15M PRN IM DECREASED GLUCOSE; Start 06/25/18 at 11:30 Glucose (Glutose) 15 gm Q15M PRN BUCCAL DECREASED GLUCOSE; Start 06/25/18 at 11:30 Heparin Sodium (Porcine) (Heparin (1000 Units/ml)) 7,000 unit PER PROTOCOL PRN IV aPTT<47; Start 06/25/18 at 13:00 Heparin Sodium (Porcine) (Heparin (1000 Units/ml)) 3,500 unit PER PROTOCOL PRN IV aPTT<47-57; Start 06/25/18 at 13:00 Heparin Sodium (Porcine) 250 ml @ 0 mls/hr PER PROTOCOL IV Last administered on 06/25/18at 14:19; Admin Dose 16 MLS/HR; Start 06/25/18 at 13:00 Diagnostic Test (Pha) (Accu-Chek) 1 ea 02 XX ; Start 06/26/18 at 02:00 Insulin Aspart (Novolog Insulin Pen) NOVOLOG *MILD* ALGORITHM WITH MEALS BEDTIME SC ; Start 06/25/18 at 22:30 FRANCISCO MARISCAL MD Jun 25, 2018 22:16
[2018-06-25 23:52] VITALS: BP 151/69; PULSE 63; RESP 18
[2018-06-25] MEDS: INSULIN ASPART [NOVOLOG] 3 ML PEN SC SCH (23:52)
[2018-06-26] VITALS (12 sets, daily range): BP systolic 95–161; BP diastolic 48–72; PULSE 57–67; RESP 16–18
[2018-06-26] MEDS: ACCU-CHEK XX SCH (02:00)
[2018-06-26] MEDS ORDERED: POTASSIUM CHLORIDE (SR) 20 MEQ TAB PO SCH (07:00)
[2018-06-26] MEDS: INSULIN ASPART [NOVOLOG] 3 ML PEN SC SCH ×4 (08:00→21:00)
[2018-06-26] MEDS: DOCUSATE SODIUM 100 MG CAP PO SCH ×3 (08:45→21:36)
[2018-06-26] MEDS: ASPIRIN (EC) 81 MG TAB PO SCH (08:45)
[2018-06-26] MEDS: AMIODARONE 200 MG TAB PO SCH ×2 (08:46→21:37)
[2018-06-26] MEDS: INSULIN GLARGINE [LANTus] (100 UNITS/ML) SYG SC SCH ×2 (09:35→21:48)
--- NOTE | 2018-06-26 10:25 | PN ---
DATE: 06/26/2018 An 82-year-old female who was admitted for acute pain over the lower extremity. This is a patient wh o was just discharged from our hospital over a week or 10 days ago with congestive heart failure exac erbation, atrial fibrillation. She was started on amiodarone and Coreg, and she does not tolerate an ticoagulation's, she started bleeding. Therefore, she was put on aspirin and sent home. 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 Patient comes in again with pain, acute pain over the left lower extremity, coldness and spasms of the legs. During evaluation in the Emergency Room, she had arterial disease of the lower extremit y. She was right away started on heparin with close monitoring for hematuria or rectal bleed. Today , patient is alert and oriented x3 in no acute distress. She has no complaints today, the leg is bet ter. The feeling of the leg is better according to her. Vitals today, blood pressure is 149/70, hea rt rate is 61, afib, controlled rate. Respirations 17, and 96% saturation on room air. REVIEW OF SYSTEMS: As I mentioned, the patient does not complain of any headaches. Does not complai n of any chest pain, does not complain of any abdominal pain, nausea, vomiting. Does not complain of any hesitancy, urgency or pain during urination and the pain over the lower extremity, the leg, is a little bit better compared to yesterday. PHYSICAL EXAMINATION: HEART: Afib, controlled rate. LUNGS: Clear to auscultation. Very mild crackles over the bases of the lungs. ABDOMEN: Soft, obese. Positive bowel sounds, no hepatosplenomegaly, no masses palpable over the abd omen and no rebound tenderness. EXTREMITIES: Diminished pulses over the lower extremities, thin, wasted muscles of the extremities, still feeling a pulse but diminished over the left side for more than yesterday comparatively. LABORATORY DATA: Chemistry: Sodium is 145, potassium 4.3, BUN 55, creatinine 2.9, much better than yesterday and she has elevated AST, ALT, which also goes with her cancer. CBC today 11.3 compared to yesterday which was 21.9, hemoglobin 10.2, hematocrit 32.5, platelet count 257. Blood cultures are negative. The UA is positive for bacteria. ASSESSMENT AND PLAN: The patient is overall improving. White count is better. Pain is better; ther efore. We will continue anticoagulation. Will discuss with the family regarding the code status and aggressive treatment; last time they refused any aggressive treatment. Will discuss again. Will green ve social work msw talk to the family regarding the code status and also will continue controlling suga r, hydration. Will discuss with the vice chair and with the vascular surgeon and will also continu e our discussions with the family and treating the patient. Dictated By: NUBIA TEJEDA MD SB/NTS Conf#: [id number] DID#: [id number] CC: ERNESTO MCGARRY MD;*EndCC*
[2018-06-26] MEDS: morphine 2 MG INJ IV PRN ×2 (11:19→22:18)
--- NOTE | 2018-06-26 12:11 | PN ---
Date/Time of Note Date/Time of Note DATE: 06/26/18 TIME: 12:09 Assessment/Plan Lines/Catheters IV Catheter Type (from Nrsg): Peripheral IV Odonnell in Place (from Nrsg): No Assessment/Plan Assessment/Plan Moderate ischemia to the left lower extremity no ulcerations patient has improved on anticoagulation At any level is better today's 2.9 down from 4.95 yesterday The ischemia may be related to an acute embolic event from embolization from the heart Patient may need a thrombectomy will check the creatinine level again and proceed with possible surgery and angiogram when she is more stable Subjective 24 Hr Interval Summary Constitutional: improved Pain Control: mild Exam/Review of Systems Vital Signs Vitals Vital Signs Date Temp Pulse Resp B/P (MAP) Pulse Ox O2 O2 Flow FiO2 Time Delivery Rate 06/26/18 97.5 63 18 95/48 (64) 97 Nasal 11:00 Cannula 06/26/18 2.0 03:49 Intake and Output 06/25/18 06/25/18 06/26/18 1515:00 23:00 07:00 IntakeIntake Total 300 ml OutputOutput Total 400 ml BalanceBalance -100 ml Exam Eyes: nl conjunctiva, EOMI, nl lids, nl sclera ENMT: nl external ears & nose, nl lips & teeth, nl nasal mucosa & septum, mucosa pink and moist Neck: supple, non-tender Respiratory: clear to auscultation, normal air movement Cardiovascular: regular rate and rhythm, nl pulses Gastrointestinal: soft, nl liver, spleen, non-tender Musculoskeletal: nl extremities to inspection, nl gait and stance Additional Comments Lower extremity cool to touch from the mid leg down left femoral pulse dim inished left popliteal and pedal pulses are not palpable capillary refill was about 3-4 seconds Results Result Diagram: 06/25/18 1308 06/26/18 0841 KELLEY GARY MD Jun 26, 2018 12:11
[2018-06-26] MEDS ORDERED: IOHEXOL 14.3 MG(I)/ML (ADULT) BTL PO ONE (17:00)
--- NOTE | 2018-06-26 17:15 | CONS ---
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 Arterial ultrasound with evidence of likely occlusive pathology. Patient with history of recurrent bleeding with anticoagulation, at the current time, given risk of limb loss, the benefits of anticoagulation likely outweigh the risks. Patient started on IV heparin with improvement in lower extremity and denies current pain. Being followed by vascular surgery. -Lung examination is improved, currently on IV fluids, watch closely for decompensated congestive heart failure. -Continue to hold any nephrotoxic medications, patient being followed by nephrology. -Doing workup on last admission, patient with mass on kidney, plans were for conservative management. Given her current situation, would decide on CODE STATUS and goals of care. This was discussed with the patient's son yesterday as well as today Consultation Date/Type/Reason Admit Date/Time Jun 25, 2018 at 06:24 Initial Consult Date 06/25/18 Type of Consult Cardiology Date/Time of Note DATE: 06/26/18 TIME: 17:12 24 HR Interval Summary Free Text/Dictation Denies current shortness of breath, chest pain or palpitations. Left leg feeling much better and able to move it without pain Exam/Review of Systems Vital Signs Vitals Vital Signs Date Temp Pulse Resp B/P (MAP) Pulse Ox O2 O2 Flow FiO2 Time Delivery Rate 06/26/18 59 16:26 06/26/18 98.4 18 128/60 98 Nasal 15:07 (82) Cannula 06/26/18 2.0 08:09 Intake and Output 06/25/18 06/25/18 06/26/18 1515:00 23:00 07:00 IntakeIntake Total 300 ml OutputOutput Total 400 ml BalanceBalance -100 ml Exam Constitutional: alert, oriented (No apparent distress) Head: normocephalic Respiratory: other (Coarse breath sounds bilaterally, no wheezing) Cardiovascular: regular rate and rhythm (S1-S2 heard) Gastrointestinal: soft, non-tender, bowel sounds Extremities: other (No significant edema) Labs Result Diagram: 06/25/18 1308 06/26/18 0841 Results 24hrs Laboratory Tests Test 06/25/18 20:11 06/25/18 20:46 06/25/18 23:00 06/26/18 00:45 Activated 99.7 *H Partial Thromboplast Time Bedside Glucose 181 192 Urine Eosinophils % 0.0 Urine Random 62.70 Creatinine Urine Total Protein 124.0 H Test 06/26/18 02:07 06/26/18 02:24 06/26/18 04:43 06/26/18 07:56 Bedside Glucose 129 83 Activated 165.7 *H Partial Thromboplast Time Hemoglobin A1c 10.0 H Uric Acid 8.5 H Test 06/26/18 08:41 06/26/18 11:22 Activated 115.3 *H Partial Thromboplast Time Sodium Level 145 H Potassium Level 4.3 Chloride Level 104 Carbon Dioxide Level 30 Anion Gap 11 Blood Urea Nitrogen 55 H Creatinine 2.90 #H Est Glomerular Filtrat Rate mL/min Glucose Level 76 # Calcium Level 9.6 Total Bilirubin 0.2 Direct Bilirubin 0.00 Indirect Bilirubin 0.2 Aspartate Amino 426 H Transf (AST/SGOT) Alanine 740 H Aminotransferase (AL T/SGPT) Alkaline Phosphatase 87 Total Protein 6.2 Albumin 3.5 Globulin 2.70 Albumin/Globulin 1.29 Ratio Bedside Glucose 199 Medications Medications Current Medications Insulin Glargine (Lantus) 30 units BID SC Last administered on 06/26/18 09:35; Admin Dose 30 UNITS; Start 06/25/18 at 11:30 Amiodarone HCl (Cordarone) 200 mg BID PO Last administered on 06/26/18 08:46; Admin Dose 200 MG; Start 06/25/18 at 11:30 Aspirin (Halfprin) 81 mg DAILY PO Last administered on 06/26/18 08:45; Admin Dose 81 MG; Start 06/25/18 at 11:30 Atorvastatin Calcium (Lipitor) 40 mg QHS PO Last administered on 06/25/18at 21:32; Admin Dose 40 MG; Start 06/25/18 at 21:00 Carvedilol (Coreg) 3.125 mg BID PO Last administered on 06/26/18 08:45; Admin Dose 3.125 MG; Start 06/25/18 at 11:30 Clonidine (Catapres) 0.1 mg Q8 PO Last administered on 06/26/18at 13:20; Admin Dose 0.1 MG; Start 06/25/18 at 14:00 Docusate Sodium (Colace) 100 mg TID PO Last administered on 06/26/18at 13:20; Admin Dose 100 MG; Start 06/25/18 at 13:00 Miscellaneous Information 1 ea NOTE XX ; Start 06/25/18 at 11:30 Glucose (Glutose) 15 gm Q15M PRN PO DECREASED GLUCOSE; Start 06/25/18 at 11:30 Glucose (Glutose) 22.5 gm Q15M PRN PO DECREASED GLUCOSE; Start 06/25/18 at 11:30 Dextrose (D50w Syringe) 25 ml Q15M PRN IV DECREASED GLUCOSE; Start 06/25/18 at 11:30 Dextrose (D50w Syringe) 50 ml Q15M PRN IV DECREASED GLUCOSE; Start 06/25/18 at 11:30 Glucagon (Glucagen) 1 mg Q15M PRN IM DECREASED GLUCOSE; Start 06/25/18 at 11:30 Glucose (Glutose) 15 gm Q15M PRN BUCCAL DECREASED GLUCOSE; Start 06/25/18 at 11:30 Heparin Sodium (Porcine) (Heparin (1000 Units/ml)) 7,000 unit PER PROTOCOL PRN IV aPTT<47; Start 06/25/18 at 13:00 Heparin Sodium (Porcine) (Heparin (1000 Units/ml)) 3,500 unit PER PROTOCOL PRN IV aPTT<47-57; Start 06/25/18 at 13:00 Heparin Sodium (Porcine) 250 ml @ 0 mls/hr PER PROTOCOL IV Last administered on 06/25/18at 14:19; Admin Dose 16 MLS/HR; Start 06/25/18 at 13:00 Diagnostic Test (Pha) (Accu-Chek) 1 ea 02 XX ; Start 06/26/18 at 02:00 Insulin Aspart (Novolog Insulin Pen) NOVOLOG *MILD* ALGORITHM WITH MEALS BEDTIME SC Last administered on 06/26/18at 13:23; Admin Dose 2 UNIT; Start 06/25/18 at 22:30 Influenza Virus Vaccine Quadrival (Fluzone) 0.5 ml ONCE ONCE IM* ; Start 06/27/18 at 10:00; Stop 06/27/18 at 10:01 Morphine Sulfate (morphine) 2 mg Q4H PRN IV SEVERE PAIN LEVEL 7-10 Last administered on 06/26/18at 11:19; Admin Dose 2 MG; Start 06/26/18 at 10:00 Iohexol ((Gastrografin therapeutic equivalent)) Adult Formulation (Ple... GIVE PRIOR TO CT ONCE PO ; Start 06/26/18 at 17:00; Stop 06/26/18 at 17:01; Status Alex Thompson DO Jun 26, 2018 17:15
[2018-06-26] MEDS: ATORVASTATIN 40 MG TAB PO SCH (21:36)
--- NOTE | 2018-06-26 22:46 | CONS ---
Assessment/Plan Assessment/Plan Hospital Course (Demo Recall) History of renal carcinoma status post nephrectomy focally prominent 2.7 cm soft tissue lobulation in the inferior left renal lower pole adjacent to surgical clips, possibly reflecting postsurgical change or recurrent neoplasm. Enhancing lobulated mass in the lower pole left kidney with no extension into the left renal vein. PET/CT OUTPT CT AP- REVIEWED can not give contrast will order MRI L[facility]- NOTED F-UP OUTPT echocardiogram- echogenic structure in the right atrium, as well as attached to the tricuspid valve as well as the IVC. Differential includes vegetation, malignancy or thrombus. The IVC is focally distended at the inferior cavoatrial junction, containing an 8 mm metallic focus which may lie within intravenous tumor mass. Evaluation is quite limited in the absence of intravenous contrast. 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 Coarse calcifications in the left breast parenchyma, most likely benign. diagnostic mammography as outpt Acute congestive heart failure exacerbation. Acute sepsis, possible urinary tract infection. Elevated lactate levels. Type 2 diabetes mellitus, uncontrolled. Hyperglycemia. Diabetic neuropathy. Gastroesophageal reflux disease. Possible transient ischemic attacks. Hypertension, uncontrolled Peripheral vascular disease with left lower extremity ischemia Renal failure with creatinine of 3.95 INTERMITTENT atrial fibrillation angiogram with a possible intervention however her creatinine is 3.95 CONT heparin Monitor the creatinine surgery when she stabilizes Consultation Date/Type/Reason Admit Date/Time Jun 25, 2018 at 06:24 Date of Consultation: Jun 26, 2018 Type of Consult [facility] Requesting Provider: NUBIA TEJEDA MD Date/Time of Note DATE: 06/26/18 TIME: 22:42 Hx of Present Illness An 82-year-old female who was admitted for acute pain over the lower extremity. This is a patient who was just discharged from our hospital over a week or 10 days ago with congestive heart failure exacerbation, atrial fibrillation. She was started on amiodarone and Coreg, and she does not tolerate anticoagulation's, she started bleeding. Therefore, she was put on aspirin and sent home. Pt has a hx RCC , which was resected many years ago. Patient comes in again with pain, acute pain over the left lower extremity, coldness and spasms of the legs. During evaluation in the Emergency Room, she had arterial disease of the lower extremity. She was right away started on heparin with close monitoring for hematuria or rectal bleed. Today, patient is alert and oriented x3 in no acute distress. She has no complaints today, the leg is better. The feeling of the leg is better according to her. REVIEW OF SYSTEMS: NO headaches. Does not complain of any chest pain, does not complain of any abdominal pain, nausea, vomiting. Does not complain of any hesitancy, urgency or pain during urination and the pain over the lower extremity, the leg, is a little bit better Past Medical History Medical History: congestive heart failure, coronary artery disease, diabetes, hypertension, renal disease Home Meds Reported Medications Clonidine Hcl* (Clonidine Hcl*) 0.1 Mg Tab, 0.1 MG PO Q8, TAB 06/25/18 Furosemide* (Furosemide*) 20 Mg Tablet, 20 MG PO DAILY 06/25/18 Carvedilol* (Carvedilol*) 3.125 Mg Tablet, 3.125 MG PO BID for 30 Days, #60 06/25/18 Amiodarone Hcl* (Amiodarone Hcl*) 200 Mg Tablet, 200 MG PO BID, #60 TAB 06/17/18 Dulaglutide (Trulicity) 0.75 Mg/0.5 Ml Pen.injctr, 1.75 MG SQ WEEKLY 06/11/18 Insulin Glargine,Hum.rec.anlog (Basaglar Kwikpen U-100) 100 Unit/1 Ml Insuln.pen, 20 UNIT SC DAILY, EA 06/11/18 Ergocalciferol (Vitamin D2) (VITAMIN D2) 2,000 Unit Tablet, 2000 UNIT PO DAILY, TAB 06/11/18 Alendronate Sodium* (Fosamax*) 70 Mg Tablet, 70 MG PO Q7D PRN for QMONDAYS, #4 TAB 06/11/18 Atenolol* (Atenolol*) 25 Mg Tablet, 25 MG PO BID, #60 TAB 06/11/18 Ferrous Sulfate (Ferrous Sulfate) 325 Mg Tablet.dr, 325 MG PO DAILY 06/11/18 Aspirin* (Aspirin* EC) 81 Mg Tablet.dr, 81 MG PO DAILY, TAB 06/11/18 Empagliflozin (Jardiance) 10 Mg Tablet, 10 MG PO DAILY, TAB 06/11/18 Esomeprazole Mag Trihydrate (Nexium) 20 Mg Capsule.dr, 20 MG PO AC BREAKFAST, #30 CAP 06/11/18 Gabapentin* (Gabapentin*) 100 Mg Capsule, 100 MG PO QHS, #90 CAP 06/11/18 Meloxicam* (Meloxicam*) 7.5 Mg Tablet, 7.5 MG PO DAILY, #30 TAB 06/11/18 Calcium Carbonate/Vitamin D3 (OYSTER SHELL 500 MG + VIT D TB) 1 Each Tablet, 1 EACH PO BID, TAB 06/11/18 Docusate Sodium* (Colace*) 100 Mg Capsule, 100 MG PO TID, #60 CAP 06/11/18 Metformin* (Glucophage*) 500 Mg Tab, 500 MG PO BID, #90 TAB 06/11/18 Atorvastatin* (Atorvastatin*) 40 Mg Tablet, 40 MG PO QHS, #30 TAB 06/11/18 Allopurinol* (Allopurinol*) 100 Mg Tablet, 100 MG PO BID, TAB 06/11/18 Discontinued Reported Medications Alendronate Sodium* (Fosamax*) 70 Mg Tablet, 70 MG PO Q7D, #4 TAB 06/11/18 Medications Current Medications Insulin Glargine (Lantus) 30 units BID SC Last administered on 06/26/18at 21:48; Admin Dose 30 UNITS; Start 06/25/18 at 11:30 Amiodarone HCl (Cordarone) 200 mg BID PO Last administered on 06/26/18at 21:37; Admin Dose 200 MG; Start 06/25/18 at 11:30 Aspirin (Halfprin) 81 mg DAILY PO Last administered on 06/26/18at 08:45; Admin Dose 81 MG; Start 06/25/18 at 11:30 Atorvastatin Calcium (Lipitor) 40 mg QHS PO Last administered on 06/26/18 21:36; Admin Dose 40 MG; Start 06/25/18 at 21:00 Carvedilol (Coreg) 3.125 mg BID PO Last administered on 06/26/18 21:37; Admin Dose 3.125 MG; Start 06/25/18 at 11:30 Docusate Sodium (Colace) 100 mg TID PO Last administered on 06/26/18 21:36; Admin Dose 100 MG; Start 06/25/18 at 13:00 Miscellaneous Information 1 ea NOTE XX ; Start 06/25/18 at 11:30 Glucose (Glutose) 15 gm Q15M PRN PO DECREASED GLUCOSE; Start 06/25/18 at 11:30 Glucose (Glutose) 22.5 gm Q15M PRN PO DECREASED GLUCOSE; Start 06/25/18 at 11:30 Dextrose (D50w Syringe) 25 ml Q15M PRN IV DECREASED GLUCOSE; Start 06/25/18 at 11:30 Dextrose (D50w Syringe) 50 ml Q15M PRN IV DECREASED GLUCOSE; Start 06/25/18 at 11:30 Glucagon (Glucagen) 1 mg Q15M PRN IM DECREASED GLUCOSE; Start 06/25/18 at 11:30 Glucose (Glutose) 15 gm Q15M PRN BUCCAL DECREASED GLUCOSE; Start 06/25/18 at 11:30 Heparin Sodium (Porcine) (Heparin (1000 Units/ml)) 7,000 unit PER PROTOCOL PRN IV aPTT<47; Start 06/25/18 at 13:00 Heparin Sodium (Porcine) (Heparin (1000 Units/ml)) 3,500 unit PER PROTOCOL PRN IV aPTT<47-57; Start 06/25/18 at 13:00 Heparin Sodium (Porcine) 250 ml @ 0 mls/hr PER PROTOCOL IV Last administered on 06/25/18at 14:19; Admin Dose 16 MLS/HR; Start 06/25/18 at 13:00 Diagnostic Test (Pha) (Accu-Chek) 1 ea 02 XX ; Start 06/26/18 at 02:00 Insulin Aspart (Novolog Insulin Pen) NOVOLOG *MILD* ALGORITHM WITH MEALS BEDTIME SC Last administered on 06/26/18at 13:23; Admin Dose 2 UNIT; Start 06/25/18 at 22:30 Influenza Virus Vaccine Quadrival (Fluzone) 0.5 ml ONCE ONCE IM* ; Start 06/27/18 at 10:00; Stop 06/27/18 at 10:01 Morphine Sulfate (morphine) 2 mg Q4H PRN IV SEVERE PAIN LEVEL 7-10 Last administered on 06/26/18at 22:18; Admin Dose 2 MG; Start 06/26/18 at 10:00 Clonidine (Catapres) 0.1 mg BID PO ; Start 06/27/18 at 06:00 Allergies: Coded Allergies: No Known Allergies (Verified Allergy, Unknown, 06/11/18) Past Surgical History Past Surgical Hx: coronary bypass surgery, other (Partial nephrectomy) Social History Alcohol Use: none Smoking Status: Never smoker Drug Use: none Exam/Review of Systems Exam Vitals Vital Signs Date Temp Pulse Resp B/P (MAP) Pulse Ox O2 O2 Flow FiO2 Time Delivery Rate 06/26/18 57 20:00 06/26/18 97.7 18 137/64 98 20:00 (88) 06/26/18 Nasal 15:07 Cannula 06/26/18 2.0 08:09 Intake and Output 06/25/18 06/25/18 06/26/18 1414:59 22:59 06:59 IntakeIntake Total 300 ml OutputOutput Total 400 ml BalanceBalance -100 ml Exam PHYSICAL EXAMINATION: HEART: Afib, controlled rate. LUNGS: Clear to auscultation. Very mild crackles over the bases of the lungs. ABDOMEN: Soft, obese. Positive bowel sounds, no hepatosplenomegaly, no masses palpable over the abdomen and no rebound tenderness. EXTREMITIES: Diminished pulses over the lower extremities, thin, wasted muscles of the extremities, still feeling a pulse but diminished over the left side for more than yesterday comparatively. Results Result Diagram: 06/25/18 1308 06/26/18 0841 Results 24hrs Laboratory Tests Test 06/25/18 23:00 06/26/18 00:45 06/26/18 02:07 06/26/18 02:24 Bedside Glucose 192 129 Urine Eosinophils % 0.0 Urine Random 62.70 Creatinine Urine Total Protein 124.0 H Activated 165.7 *H Partial Thromboplast Time Test 06/26/18 04:43 06/26/18 07:56 06/26/18 08:41 06/26/18 11:22 Hemoglobin A1c 10.0 H Uric Acid 8.5 H Bedside Glucose 83 199 Activated 115.3 *H Partial Thromboplast Time Sodium Level 145 H Potassium Level 4.3 Chloride Level 104 Carbon Dioxide Level 30 Anion Gap 11 Blood Urea Nitrogen 55 H Creatinine 2.90 #H Est Glomerular Filtrat Rate mL/min Glucose Level 76 # Calcium Level 9.6 Total Bilirubin 0.2 Direct Bilirubin 0.00 Indirect Bilirubin 0.2 Aspartate Amino 426 H Transf (AST/SGOT) Alanine 740 H Aminotransferase (AL T/SGPT) Alkaline Phosphatase 87 Total Protein 6.2 Albumin 3.5 Globulin 2.70 Albumin/Globulin 1.29 Ratio Test 06/26/18 17:22 06/26/18 21:39 Bedside Glucose 83 146 Medications Medication Current Medications Insulin Glargine (Lantus) 30 units BID SC Last administered on 06/26/18 21:48; Admin Dose 30 UNITS; Start 06/25/18 at 11:30 Amiodarone HCl (Cordarone) 200 mg BID PO Last administered on 06/26/18 21:37; Admin Dose 200 MG; Start 06/25/18 at 11:30 Aspirin (Halfprin) 81 mg DAILY PO Last administered on 06/26/18 08:45; Admin Dose 81 MG; Start 06/25/18 at 11:30 Atorvastatin Calcium (Lipitor) 40 mg QHS PO Last administered on 06/26/18 21:36; Admin Dose 40 MG; Start 06/25/18 at 21:00 Carvedilol (Coreg) 3.125 mg BID PO Last administered on 06/26/18 21:37; Admin Dose 3.125 MG; Start 06/25/18 at 11:30 Docusate Sodium (Colace) 100 mg TID PO Last administered on 06/26/18 21:36; Ad min Dose 100 MG; Start 06/25/18 at 13:00 Miscellaneous Information 1 ea NOTE XX ; Start 06/25/18 at 11:30 Glucose (Glutose) 15 gm Q15M PRN PO DECREASED GLUCOSE; Start 06/25/18 at 11:30 Glucose (Glutose) 22.5 gm Q15M PRN PO DECREASED GLUCOSE; Start 06/25/18 at 11:30 Dextrose (D50w Syringe) 25 ml Q15M PRN IV DECREASED GLUCOSE; Start 06/25/18 at 11:30 Dextrose (D50w Syringe) 50 ml Q15M PRN IV DECREASED GLUCOSE; Start 06/25/18 at 11:30 Glucagon (Glucagen) 1 mg Q15M PRN IM DECREASED GLUCOSE; Start 06/25/18 at 11:30 Glucose (Glutose) 15 gm Q15M PRN BUCCAL DECREASED GLUCOSE; Start 06/25/18 at 1 1:30 Heparin Sodium (Porcine) (Heparin (1000 Units/ml)) 7,000 unit PER PROTOCOL PRN IV aPTT<47; Start 06/25/18 at 13:00 Heparin Sodium (Porcine) (Heparin (1000 Units/ml)) 3,500 unit PER PROTOCOL PRN I V aPTT<47-57; Start 06/25/18 at 13:00 Heparin Sodium (Porcine) 250 ml @ 0 mls/hr PER PROTOCOL IV Last administered on 06/25/18at 14:19; Admin Dose 16 MLS/HR; Start 06/25/18 at 13:00 Diagnostic Test (Pha) (Accu-Chek) 1 ea 02 XX ; Start 06/26/18 at 02:00 Insulin Aspart (Novolog Insulin Pen) NOVOLOG *MILD* ALGORITHM WITH MEALS BEDTIME SC Last administered on 06/26/18at 13:23; Admin Dose 2 UNIT; Start 06/25/18 at 22:30 Influenza Virus Vaccine Quadrival (Fluzone) 0.5 ml ONCE ONCE IM* ; Start 9 at 10:00; Stop 06/27/18 at 10:01 Morphine Sulfate (morphine) 2 mg Q4H PRN IV SEVERE PAIN LEVEL 7-10 Last administered on 06/26/18at 22:18; Admin Dose 2 MG; Start 06/26/18 at 10:00 Clonidine (Catapres) 0.1 mg BID PO ; Start 06/27/18 at 06:00 JOSÉ FRANZ MD Jun 26, 2018 22:45
[2018-06-27] VITALS (13 sets, daily range): BP systolic 115–161; BP diastolic 52–70; PULSE 54–82; RESP 11–23
[2018-06-27] MEDS ORDERED: DEXTROSE 5%-0.45% NACL 1,000 ML IV SCH (00:06)
[2018-06-27] MEDS: HEPARIN 25000 UNITS/250 ML 250 ML IV SCH (03:05)
[2018-06-27] MEDS: ACCU-CHEK XX SCH (03:09)
[2018-06-27] MEDS: INSULIN ASPART [NOVOLOG] 3 ML PEN SC SCH ×6 (03:10→21:00)
[2018-06-27] MEDS: DOCUSATE SODIUM 100 MG CAP PO SCH ×3 (08:36→21:39)
[2018-06-27] MEDS: ASPIRIN (EC) 81 MG TAB PO SCH (08:40)
[2018-06-27] MEDS: AMIODARONE 200 MG TAB PO SCH ×2 (08:41→21:40)
[2018-06-27] MEDS: INSULIN GLARGINE [LANTus] (100 UNITS/ML) SYG SC SCH ×2 (09:00→22:49)
--- NOTE | 2018-06-27 09:52 | PN ---
DATE: 06/27/2018 Patient was admitted for acute pain over the left lower extremity, cold leg below the knee with sever e pain that started the day that she was admitted. The patient has past medical history of type 2 di abetes mellitus for many years, uncontrolled. She has history of kidney CA surgery in the past and r ecurrence recently. She has history of atrial fibrillation with poor coagulation due to frequent ble edings. She has history of gastroesophageal reflux disease, degenerative joint disease, hypertension , coronary artery disease status post coronary artery bypass graft. The patient came in with leg massimo n. Arterial Dopplers were done showing some plaques over the lower extremity and obstruction, decrea sed flow. Therefore, patient was admitted, started anticoagulation and vascular surgery consult. Du ring when the patient came in, elevated BUN, acute renal failure on chronic kidney disease. Therefor e, we had to hydrate the patient, hold the diuretics and keep a close eye on the kidneys. Today, pat gill is alert and oriented x3, in no distress, very comfortable. Pain is a little bit more tolerated today compared to the first day, but still pain for cold leg. Vitals today, blood pressure is 160/7 0, heart rate is 60, respiratory rate 18, and she is afebrile. REVIEW OF SYSTEMS: As I mentioned, she has a little bit of headache. Denies any chest pain, denies of any shortness of breath, cough or wheezing. Denies any abdominal pain, nausea, vomiting. Denies of any hesitancy, urgency or pain during urination. PHYSICAL EXAMINATION: GENERAL: As I mentioned above. HEENT: Atraumatic, normocephalic. Pupils are equal and reactive to light. Extraocular muscles are intact. Nares are clear, no obstruction, no deviation of the septum. Oral cavity normal oral hygien e. Ear canals are clear, no signs of inflammation or infection. Tympanic membranes are intact. NECK: Supple. No JVD, no surgical scars, no lymph nodes palpable over the neck. CHEST: AP contour is within normal limits. Breasts are normal. No retraction, no nipple retraction . HEART: Afib, controlled rate. LUNGS: Scattered very mild crackles over the bases of the lungs, otherwise negative. ABDOMEN: Soft, obese. Positive bowel sounds, no hepatosplenomegaly, no masses palpable over the abd omen and no rebound tenderness. EXTREMITIES: No edema, clubbing or cyanosis of the extremities. Other than the left extremity colde r than the right one with wasted muscles and pulses are diminished bilaterally. CT abdomen and pelvis was ordered due to elevated liver function tests showing again a residual or re current mass over the lower pole of the left kidney and no other abnormalities. No mass in the liver seen or no other acute changes other than diverticulosis without any diverticulitis. LABORATORY DATA: Today CBC: White count is 8.5, hemoglobin 10.2, hematocrit 32.8, platelet count 24 0. Chemistry much better today. Blood sugars are better controlled. Fasting blood sugars are pedro r controlled. Her sodium is 142, potassium 4.4, BUN 43, creatinine 2.5, much improvement from day #1 when her creatinine was 3.95. Therefore, patient is scheduled for endarterectomy of the lower extre mity by Dr. Dawson, when the patient is more stable, possibly pretty soon. Patient coming close t o her baseline creatinine levels gradually. Therefore, we will continue treatment and will follow. Just to note, I had a long discussion with the son yesterday and the son wishes that the mother be FU LL CODE and to do everything possible for her health. Dictated By: NUBIA TEJEDA MD SB/NTS Conf#: [id number] DID#: [id number] CC: ERNESTO MCGARRY MD;*EndCC*
[2018-06-27] MEDS ORDERED: LORAZEPAM 2 MG INJ IV PRN ×2 (10:30)
--- NOTE | 2018-06-27 11:38 | CONS ---
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 Arterial ultrasound with evidence of likely occlusive pathology. Patient with history of recurrent b leeding with anticoagulation, at the current time, given risk of limb loss, the benefits of anticoagulation likely outweigh the risks. Patient started on IV heparin with improvement in lower extremity and denies current pain. Being followed by vascular surgery. -Lung examination is improved, currently on IV fluids, watch closely for decompensated congestive heart failure. -Continue to hold any nephrotoxic medications, patient being followed by nephrology. Consultation Date/Type/Reason Admit Date/Time Jun 25, 2018 at 06:24 Initial Consult Date 06/25/18 Type of Consult Cardiology Requesting Provider: NUBIA TEJEDA MD Date/Time of Note DATE: 06/27/18 TIME: 11:36 24 HR Interval Summary Free Text/Dictation Denies shortness of breath currently, denies leg pain Exam/Review of Systems Vital Signs Vitals Vital Signs Date Temp Pulse Resp B/P (MAP) Pulse Ox O2 O2 Flow FiO2 Time Delivery Rate 06/27/18 98.0 54 20 120/55 98 11:06 (76) 06/27/18 Nasal 2.0 04:10 Cannula Intake and Output 06/26/18 06/26/18 06/27/18 1515:00 23:00 07:00 IntakeIntake Total 700 ml BalanceBalance 700 ml Exam Constitutional: alert, oriented (Following commands, no apparent distress) Respiratory: other (Coarse breath sounds bilaterally, no wheezing) Cardiovascular: regular rate and rhythm (S1-S2 heard) Gastrointestinal: soft, non-tender, bowel sounds Extremities: edema (Trace) Labs Result Diagram: 06/27/18 0525 06/27/18 0525 Results 24hrs Laboratory Tests Test 06/26/18 17:22 06/26/18 21:39 06/27/18 00:18 06/27/18 03:09 Bedside Glucose 83 146 80 Activated 111.9 *H Partial Thromboplast Time Test 06/27/18 05:25 06/27/18 06:40 06/27/18 07:39 06/27/18 09:44 White Blood Count 8.5 # Red Blood Count 3.65 L Hemoglobin 10.2 L Hematocrit 32.8 L Mean Corpuscular 89.9 Volume Mean Corpuscular 27.9 L Hemoglobin Mean Corpuscular 31.1 L Hemoglobin Concent Red Cell 12.9 Distribution Width Platelet Count 240 Mean Platelet Volume 11.5 H Immature 0.500 H Granulocytes % Neutrophils % 58.1 Lymphocytes % 27.6 Monocytes % 8.9 Eosinophils % 4.3 Basophils % 0.6 Nucleated Red Blood 0.0 Cells % Immature 0.040 H Granulocytes # Neutrophils # 4.9 Lymphocytes # 2.4 Monocytes # 0.8 Eosinophils # 0.4 Basophils # 0.1 Nucleated Red Blood 0.0 Cells # Sodium Level 142 Potassium Level 4.4 Chloride Level 106 Carbon Dioxide Level 29 Anion Gap 7 Blood Urea Nitrogen 43 #H Creatinine 2.25 H Est Glomerular Filtrat Rate mL/min Glucose Level 82 Calcium Level 9.6 B-Type Natriuretic 3200 H Peptide Bedside Glucose 78 88 Activated 89.3 *H Partial Thromboplast Time Medications Medications Current Medications Insulin Glargine (Lantus) 30 units BID SC Last administered on 06/26/18 21:48; Admin Dose 30 UNITS; Start 06/25/18 at 11:30 Amiodarone HCl (Cordarone) 200 mg BID PO Last administered on 06/27/18 08:41; Admin Dose 200 MG; Start 06/25/18 at 11:30 Aspirin (Halfprin) 81 mg DAILY PO Last administered on 06/27/18 08:40; Admin Dose 81 MG; Start 06/25/18 at 11:30 Atorvastatin Calcium (Lipitor) 40 mg QHS PO Last administered on 06/26/18 21:36; Admin Dose 40 MG; Start 06/25/18 at 21:00 Carvedilol (Coreg) 3.125 mg BID PO Last administered on 06/27/18 08:40; Admin Dose 3.125 MG; Start 06/25/18 at 11:30 Docusate Sodium (Colace) 100 mg TID PO Last administered on 06/27/18 08:36; Admin Dose 100 MG; Start 06/25/18 at 13:00 Miscellaneous Information 1 ea NOTE XX ; Start 06/25/18 at 11:30 Glucose (Glutose) 15 gm Q15M PRN PO DECREASED GLUCOSE; Start 06/25/18 at 11:30 Glucose (Glutose) 22.5 gm Q15M PRN PO DECREASED GLUCOSE; Start 06/25/18 at 11 :30 Dextrose (D50w Syringe) 25 ml Q15M PRN IV DECREASED GLUCOSE; Start 06/25/18 at 11:30 Dextrose (D50w Syringe) 50 ml Q15M PRN IV DECREASED GLUCOSE; Start 06/25/18 at 11:30 Glucagon (Glucagen) 1 mg Q15M PRN IM DECREASED GLUCOSE; Start 06/25/18 at 11:30 Glucose (Glutose) 15 gm Q15M PRN BUCCAL DECREASED GLUCOSE; Start 06/25/18 at 11:30 Heparin Sodium (Porcine) (Heparin (1000 Units/ml)) 7,000 unit PER PROTOCOL PRN IV aPTT<47; Start 06/25/18 at 13:00 Heparin Sodium (Porcine) (Heparin (1000 Units/ml)) 3,500 unit PER PROTOCOL PRN IV aPTT<47-57; Start 06/25/18 at 13:00 Heparin Sodium (Porcine) 250 ml @ 0 mls/hr PER PROTOCOL IV Last administered on 06/27/18at 03:05; Admin Dose 12.5 MLS/HR; Start 06/25/18 at 13:00 Diagnostic Test (Pha) (Accu-Chek) 1 ea 02 XX Last administered on 06/27/18at 03: 09; Admin Dose 1 EA; Start 06/26/18 at 02:00 Morphine Sulfate (morphine) 2 mg Q4H PRN IV SEVERE PAIN LEVEL 7-10 Last administered on 06/26/18at 22:18; Admin Dose 2 MG; Start 06/26/18 at 10:00 Clonidine (Catapres) 0.1 mg BID PO Last administered on 06/27/18at 08:40; Admin Dose 0.1 MG; Start 06/27/18 at 06:00 Insulin Aspart (Novolog Insulin Pen) NOVOLOG *MILD* ALGORITHM Q4 SC ; Start 06/27/18 at 01:00 Dextrose/Sodium Chloride 1,000 ml @ 60 mls/hr [id number] IV Last administered on 06/27/18at 03:00; Admin Dose 40 MLS/HR; Start 06/27/18 at 00:06 Lorazepam (Ativan) 0.5 mg Q8H PRN IV ANXIETY; Start 06/27/18 at 10:30 Alex Chávez DO Jun 27, 2018 11:37
--- NOTE | 2018-06-27 15:24 | PREAC ---
Date/Time of Note Date/Time of Note DATE: 06/27/18 TIME: 15: Anesthesia Eval and Record Evaluation Time Pre-Procedure Interview DATE: 06/27/18 TIME: 15:19 Age 82 Sex female NPO: 8 hrs Preoperative diagnosis OCCLUSIVE LEFT COMMON FEMORAL ARTERY Planned procedure THROMBECTOMY LEFT LOWER EXTREMITY, POSSIBLE BYPASS, POSSIBLE ANGIOPLASTY Past Medical History Past Medical History: Includes Cardio: HTN, Dyslipidemia, CAD, CABG, Arrythmia (PAF), CHF, Other ( CARDIOMYOPATHY EF 50% ) Endo: Diabetes Renal: BRANDON, Other (RECURRENT LEFT RENAL CANCER (HX PARTIAL NEPHRECTOMY), PT DOES NOT WANT FURTHER TREATMENT FOR CANCER) Heme: Anemia Surgery & Anesthesia Issues No known issue Meds Anticoagulation: Yes (HEPARIN DRIP ONGOING ) Beta Rosalba within 24 hr: Yes Reported Medications Clonidine Hcl* (Clonidine Hcl*) 0.1 Mg Tab, 0.1 MG PO Q8, TAB 06/25/18 Furosemide* (Furosemide*) 20 Mg Tablet, 20 MG PO DAILY 06/25/18 Carvedilol* (Carvedilol*) 3.125 Mg Tablet, 3.125 MG PO BID for 30 Days, #60 06/25/18 Amiodarone Hcl* (Amiodarone Hcl*) 200 Mg Tablet, 200 MG PO BID, #60 TAB 06/17/18 Dulaglutide (Trulicity) 0.75 Mg/0.5 Ml Pen.injctr, 1.75 MG SQ WEEKLY 06/11/18 Insulin Glargine,Hum.rec.anlog (Basaglar Kwikpen U-100) 100 Unit/1 Ml Insuln.pen, 20 UNIT SC DAILY, EA 06/11/18 Ergocalciferol (Vitamin D2) (VITAMIN D2) 2,000 Unit Tablet, 2000 UNIT PO DAILY, TAB 06/11/18 Alendronate Sodium* (Fosamax*) 70 Mg Tablet, 70 MG PO Q7D PRN for QMONDAYS, #4 TAB 06/11/18 Atenolol* (Atenolol*) 25 Mg Tablet, 25 MG PO BID, #60 TAB 06/11/18 Ferrous Sulfate (Ferrous Sulfate) 325 Mg Tablet.dr, 325 MG PO DAILY 06/11/18 Aspirin* (Aspirin* EC) 81 Mg Tablet.dr, 81 MG PO DAILY, TAB 06/11/18 Empagliflozin (Jardiance) 10 Mg Tablet, 10 MG PO DAILY, TAB 06/11/18 Esomeprazole Mag Trihydrate (Nexium) 20 Mg Capsule.dr, 20 MG PO AC BREAKFAST, #30 CAP 06/11/18 Gabapentin* (Gabapentin*) 100 Mg Capsule, 100 MG PO QHS, #90 CAP 06/11/18 Meloxicam* (Meloxicam*) 7.5 Mg Tablet, 7.5 MG PO DAILY, #30 TAB 06/11/18 Calcium Carbonate/Vitamin D3 (OYSTER SHELL 500 MG + VIT D TB) 1 Each Tablet, 1 EACH PO BID, TAB 06/11/18 Docusate Sodium* (Colace*) 100 Mg Capsule, 100 MG PO TID, #60 CAP 06/11/18 Metformin* (Glucophage*) 500 Mg Tab, 500 MG PO BID, #90 TAB 06/11/18 Atorvastatin* (Atorvastatin*) 40 Mg Tablet, 40 MG PO QHS, #30 TAB 06/11/18 Allopurinol* (Allopurinol*) 100 Mg Tablet, 100 MG PO BID, TAB 06/11/18 Discontinued Reported Medications Alendronate Sodium* (Fosamax*) 70 Mg Tablet, 70 MG PO Q7D, #4 TAB 06/11/18 Current Medications Insulin Glargine (Lantus) 30 units BID SC Last administered on 06/26/18at 21:48; Admin Dose 30 UNITS; Start 06/25/18 at 11:30 Amiodarone HCl (Cordarone) 200 mg BID PO Last administered on 06/27/18at 08:41; Admin Dose 200 MG; Start 06/25/18 at 11:30 Aspirin (Halfprin) 81 mg DAILY PO Last administered on 06/27/18 08:40; Admin Dose 81 MG; Start 06/25/18 at 11:30 Atorvastatin Calcium (Lipitor) 40 mg QHS PO Last administered on 06/26/18 21:36; Admin Dose 40 MG; Start 06/25/18 at 21:00 Carvedilol (Coreg) 3.125 mg BID PO Last administered on 06/27/18 08:40; Admin Dose 3.125 MG; Start 06/25/18 at 11:30 Docusate Sodium (Colace) 100 mg TID PO Last administered on 06/27/18 08:36; Admin Dose 100 MG; Start 06/25/18 at 13:00 Miscellaneous Information 1 ea NOTE XX ; Start 06/25/18 at 11:30 Glucose (Glutose) 15 gm Q15M PRN PO DECREASED GLUCOSE; Start 06/25/18 at 11:30 Glucose (Glutose) 22.5 gm Q15M PRN PO DECREASED GLUCOSE; Start 06/25/18 at 11 :30 Dextrose (D50w Syringe) 25 ml Q15M PRN IV DECREASED GLUCOSE; Start 06/25/18 at 11:30 Dextrose (D50w Syringe) 50 ml Q15M PRN IV DECREASED GLUCOSE; Start 06/25/18 at 11:30 Glucagon (Glucagen) 1 mg Q15M PRN IM DECREASED GLUCOSE; Start 06/25/18 at 11:30 Glucose (Glutose) 15 gm Q15M PRN BUCCAL DECREASED GLUCOSE; Start 06/25/18 at 11:30 Heparin Sodium (Porcine) (Heparin (1000 Units/ml)) 7,000 unit PER PROTOCOL PRN IV aPTT<47; Start 06/25/18 at 13:00 Heparin Sodium (Porcine) (Heparin (1000 Units/ml)) 3,500 unit PER PROTOCOL PRN IV aPTT<47-57; Start 06/25/18 at 13:00 Heparin Sodium (Porcine) 250 ml @ 0 mls/hr PER PROTOCOL IV Last administered on 06/27/18at 03:05; Admin Dose 12.5 MLS/HR; Start 06/25/18 at 13:00 Diagnostic Test (Pha) (Accu-Chek) 1 ea 02 XX Last administered on 06/27/18at 03: 09; Admin Dose 1 EA; Start 06/26/18 at 02:00 Morphine Sulfate (morphine) 2 mg Q4H PRN IV SEVERE PAIN LEVEL 7-10 Last administered on 06/26/18at 22:18; Admin Dose 2 MG; Start 06/26/18 at 10:00 Clonidine (Catapres) 0.1 mg BID PO Last administered on 06/27/18at 08:40; Admin Dose 0.1 MG; Start 06/27/18 at 06:00 Insulin Aspart (Novolog Insulin Pen) NOVOLOG *MILD* ALGORITHM Q4 SC ; Start 06/27/18 at 01:00 Dextrose/Sodium Chloride 1,000 ml @ 60 mls/hr [id number] IV Last administered on 06/27/18at 03:00; Admin Dose 40 MLS/HR; Start 06/27/18 at 00:06 Lorazepam (Ativan) 0.5 mg Q8H PRN IV ANXIETY; Start 06/27/18 at 10:30 Meds reviewed: Yes Allergies Coded Allergies: No Known Allergies (Verified Allergy, Unknown, 06/11/18) Allergies Reviewed: Yes Labs/Studies Labs Reviewed: Reviewed by anesthesiologist Result Diagram: 06/27/1852406/27/18 05 Laboratory Tests 06/27/18 05:25 test: N/A Studies: ECG (ACCELERATED JUNCTIONAL RHYTHM, ST AND T WAVE ABNORMALITY), 2D Echo (EF 50%, RIGHT ATRIAL ECHO DENSE STRUCTURE, POSS THROMBUS, TUMOR OR VEGETATION) Pre-procedure Exam Last vitals Vital Signs Date Temp Pulse Resp B/P (MAP) Pulse Ox O2 O2 Flow FiO2 Time Delivery Rate 06/27/18 55 12:09 06/27/18 98.0 20 120/55 98 11:06 (76) 06/27/18 Nasal 2.0 08:30 Cannula Airway: Adequate mouth opening, Adequate thyromental dist Mallampati: Mallampati II Teeth: Normal (EDENTULOUS) Lung: Normal Heart: Normal ASA Physical Status ASA physical status: 4 Emergency: E Planned Anesthetic General/MAC: ETT, A Line, CVP Planned Pain Management Parenteral pain med, Local by surgeon Pre-operative Attestations Prior to commencing anesthesia and surgery, the patient was re-evaluated, there was verification of: *The patient's identity *The results of appropriate recent lab work and preoperative vital signs *The above evaluation not changing prior to induction *Anesthetic plan, risk benefits, alternative and complications discussed with patient/family; questions answered; patient/family understands, accepts and wishes to proceed. CHAZ WALTON Jun 27, 2018 15:24
[2018-06-27] MEDS ORDERED: LIDOCAINE 1% (MPF) 30 ML INJ ONE (15:52)
[2018-06-27] MEDS ORDERED: HEPARIN 1000 UNITS/ML 10 ML INJ ONE (15:52)
[2018-06-27] MEDS ORDERED: THROMBIN (BOVINE) 5,000 UNIT VIAL TP ONE (15:52)
[2018-06-27] MEDS ORDERED: GELATIN SIZE 100 SPONGE ONE (15:52)
[2018-06-27] MEDS ORDERED: BUPIVACAINE 0.25% (MPF) 30 ML INJ ONE (15:52)
[2018-06-27] MEDS ORDERED: IOHEXOL 300MG/ML 30 ML BTL ONE (15:52)
[2018-06-27] MEDS ORDERED: ETOMIDATE 20 MG INJ ONE (17:58)
[2018-06-27] MEDS ORDERED: LIDOCAINE 2% (SDV) 5 ML INJ ONE (17:58)
[2018-06-27] MEDS ORDERED: ROCURONIUM 50 MG INJ ONE (17:59)
[2018-06-27] MEDS ORDERED: FAMOTIDINE 20 MG INJ ONE (19:11)
[2018-06-27] MEDS ORDERED: CEFAZOLIN 1 GM INJ ONE (19:11)
[2018-06-27] MEDS ORDERED: ONDANSETRON 4 MG INJ ONE (19:11)
[2018-06-27] MEDS ORDERED: hydrALAzine 20 MG INJ ONE (19:14)
[2018-06-27] MEDS ORDERED: hydrALAzine 20 MG INJ IV PRN (19:30)
[2018-06-27] MEDS ORDERED: HYDROmorphONE 0.5 MG/0.5 ML SYG IV PRN (19:30)
[2018-06-27] MEDS ORDERED: FENTAnyl 50 MCG/ML VIAL IV PRN (19:30)
[2018-06-27] MEDS ORDERED: ONDANSETRON 4 MG INJ IV PRN (19:30)
[2018-06-27] MEDS ORDERED: EPHEDrine SULFATE 50 MG/5 ML SYG IV PRN (19:30)
[2018-06-27] MEDS ORDERED: DIPHENHYDRAMINE 50 MG INJ IV PRN (19:30)
[2018-06-27] MEDS ORDERED: MEPERIDINE 25 MG INJ IV PRN (19:30)
[2018-06-27] MEDS ORDERED: NEOSTIGMINE 3 MG/3 ML SYRINGE ONE (19:51)
[2018-06-27] MEDS ORDERED: GLYCOPYRROLATE 0.4 MG INJ ONE (19:51)
[2018-06-27] MEDS ORDERED: SUGAMMADEX SODIUM 200 MG/2 ML VIAL IV ONE (19:56)
--- NOTE | 2018-06-27 20:00 | OPR ---
Date/Time of Note Date/Time of Note DATE: 06/27/18 TIME: 19:55 Operative Report Procedure Date: Jun 27, 2018 Preoperative Diagnosis Ischemic left lower extremity Postoperative Diagnosis Same Operation/Procedure Performed Thrombectomy left lower extremity through a femoral approach #3 left femoral artery popliteal artery and anterior tibial artery Left lower extremity angiogram Catheter introduction into the left femoral artery Interpositions revision of the left femoral angiogram Fluoroscopy Surgeon see signature line Debeader None Anesthesia Type: general Estimated Blood Loss: 0 - 10 ml's Transfusion none Specimen Clot Grafts/Implants none Tubes/Drains None Complications none Pt Condition Post Procedure: stable Disposition: PACU Procedure Description This is a 82-year-old female who was admitted because of acute left lower extremity ischemia workup included a Doppler ultrasound and a CAT scan which showed no flow below the left femoral artery patient also has a thrombus in the heart and it was believed that the thrombus was the cause of the acute ischemia however the patient does have a history of peripheral vascular disease in the past and was not very ambulatory although she walked Fluoroscopic issues alternative therapies high risk nature of the operation fully explained to the patient consent obtained risk and benefits have been explained to the patient included but not limited to bleeding infection damage to the nerve neurovascular bundles including the femoral artery loss of limb loss of life need for further surgeries and other She was placed in supine position timeout was called antibiotics was given I made a 6 cm incision left groin oblique fashion incision was taken down to subcutaneous tissue which was then opened using electrocautery left common femoral artery was identified vessel loops were passed around it it was then opened after applying vascular clamps in a horizontal fashion thrombectomy of the proximal and the distal limb of the of the vessel was performed large amount of clot per brought out through the thrombectomy procedure mostly proximally I was able to pass a 4 Cuban and a 3 Cuban Ana Lilia catheter all the way below the knee all however it would not advance below the knee Intraoperative angiogram was done which showed patent superficial femoral artery patent popliteal artery above the knee and below the knee however the posterior tibial artery and peroneal arteries were 100% occluded anterior tibial artery was subtotaled which appeared to be some atherosclerotic disease in some possibly clot at this time I was able to get strong Doppler signals in the femoral artery and the popliteal artery but no signals in the foot I decided to proceed with a second part of the thrombectomy through infrapopliteal incision which was made below the knee about 6 cm incision was taken down to subcutaneous tissue the fascia layers of the leg was opened the popliteal artery was identified he appeared to be proximally soft but distally highly highly calcified including the anterior tibial artery at this time I decided not to proceed with a thrombectomy of this is a highly diseased vessel in avoidance of a possible dissected dissection and more complications both wounds were then irrigated and closed in 2 layers of 3-0 Vicryl suture. Subcu 3-0 Vicryl suture for the deep and jacobo for the skin patient tolerated procedure well end of dictation KELLEY GARY MD Jun 27, 2018 20:00
--- NOTE | 2018-06-27 20:23 | PAC ---
Date/Time of Note Date/Time of Note DATE: 06/27/18 TIME: 20:23 Post-Anesthesia Notes Post-Anesthesia Note Last documented vital signs Vital Signs Date Temp Pulse Resp B/P (MAP) Pulse Ox O2 O2 Flow FiO2 Time Delivery Rate 06/27/18 61 16:08 06/27/18 98.1 20 150/67 99 15:41 (94) 06/27/18 Nasal 2.0 08:30 Cannula Activity: WNL Respiratory function: WNL Cardiovascular function: WNL Mental status: Baseline Pain reasonably controlled: Yes Hydration appropriate: Yes Nausea/Vomiting absent: Yes Comments BP: 139/67 HR: 76 RR: 15 T: 98 SaO2: 100% NIGEL PINEDA MD Jun 27, 2018 20:23
[2018-06-27] MEDS ORDERED: INSULIN ASPART [NOVOLOG] 3 ML PEN SC ONE (20:30)
[2018-06-27] MEDS: HYDROmorphONE 0.5 MG/0.5 ML SYG IV PRN ×2 (20:32→21:41)
[2018-06-27] MEDS: ATORVASTATIN 40 MG TAB PO SCH (21:41)
--- NOTE | 2018-06-27 22:23 | CONS ---
Assessment/Plan Assessment/Plan Hospital Course (Demo Recall) History of renal carcinoma status post nephrectomy focally prominent 2.7 cm soft tissue lobulation in the inferior left renal lower pole adjacent to surgical clips, possibly reflecting postsurgical change or recurrent neoplasm. Enhancing lobulated mass in the lower pole left kidney with no extension into the left renal vein. PET/CT OUTPT CT AP- REVIEWED can not give contrast PT REFUSED MRI LDH- NOTED F-UP OUTPT echocardiogram- echogenic structure in the right atrium, as well as attached to the tricuspid valve as well as the IVC. Differential includes vegetation, malignancy or thrombus. The IVC is focally distended at the inferior cavoatrial junction, containing an 8 mm metallic focus which may lie within intravenous tumor mass. Evaluation is quite limited in the absence of intravenous contrast. 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 Coarse calcifications in the left breast parenchyma, most likely benign. diagnostic mammography as outpt Acute congestive heart failure exacerbation. Acute sepsis, possible urinary tract infection. Elevated lactate levels. Type 2 diabetes mellitus, uncontrolled. Hyperglycemia. Diabetic neuropathy. Gastroesophageal reflux disease. Possible transient ischemic attacks. Hypertension, uncontrolled Peripheral vascular disease with left lower extremity ischemia Renal failure with creatinine of 3.95 INTERMITTENT atrial fibrillation angiogram with a possible intervention CONT heparin Monitor the creatinine surgery when she stabilizes Consultation Date/Type/Reason Admit Date/Time Jun 25, 2018 at 06:24 Initial Consult Date 06/26/18 Type of Consult [facility] Requesting Provider: NUBIA TEJEDA MD Date/Time of Note DATE: 06/27/18 TIME: 22:21 24 HR Interval Summary Free Text/Dictation ALL NOTED REFUSED MRI Exam/Review of Systems Exam Vitals Vital Signs Date Temp Pulse Resp B/P (MAP) Pulse Ox O2 O2 Flow FiO2 Time Delivery Rate 06/27/18 72 11 115/55 98 21:30 (75) 06/27/18 3.0 20:41 06/27/18 Nasal 20:30 Cannula 06/27/18 98.0 20:23 Intake and Output 06/26/18 06/26/18 06/27/18 1515:00 23:00 07:00 IntakeIntake Total 700 ml BalanceBalance 700 ml Exam HEART: Afib, controlled rate. LUNGS: Clear to auscultation. Very mild crackles over the bases of the lungs. ABDOMEN: Soft, obese. Positive bowel sounds, no hepatosplenomegaly, no masses palpable over the abdomen and no rebound tenderness. EXTREMITIES: Diminished pulses over the lower extremities, thin, wasted muscles of the extremities, still feeling a pulse but diminished over the left side for more than yesterday comparatively. Results Result Diagram: 06/27/1825 06/27/18 0525 Results 24hrs Laboratory Tests Test 06/27/18 00:18 06/27/18 03:09 06/27/18 05:25 06/27/18 06:40 Activated 111.9 *H Partial Thromboplast Time Bedside Glucose 80 78 White Blood Count 8.5 # Red Blood Count 3.65 L Hemoglobin 10.2 L Hematocrit 32.8 L Mean Corpuscular 89.9 Volume Mean Corpuscular 27.9 L Hemoglobin Mean Corpuscular 31.1 L Hemoglobin Concent Red Cell 12.9 Distribution Width Platelet Count 240 Mean Platelet Volume 11.5 H Immature 0.500 H Granulocytes % Neutrophils % 58.1 Lymphocytes % 27.6 Monocytes % 8.9 Eosinophils % 4.3 Basophils % 0.6 Nucleated Red Blood 0.0 Cells % Immature 0.040 H Granulocytes # Neutrophils # 4.9 Lymphocytes # 2.4 Monocytes # 0.8 Eosinophils # 0.4 Basophils # 0.1 Nucleated Red Blood 0.0 Cells # Sodium Level 142 Potassium Level 4.4 Chloride Level 106 Carbon Dioxide Level 29 Anion Gap 7 Blood Urea Nitrogen 43 #H Creatinine 2.25 H Est Glomerular Filtrat Rate mL/min Glucose Level 82 Calcium Level 9.6 B-Type Natriuretic 3200 H Peptide Test 06/27/18 07:39 06/27/18 09:44 06/27/18 12:37 06/27/18 16:16 Bedside Glucose 88 103 93 Activated 89.3 *H Partial Thromboplast Time Test 06/27/18 16:54 06/27/18 20:49 Activated 107.6 *H Partial Thromboplast Time Bedside Glucose 111 Medications Medication Current Medications Insulin Glargine (Lantus) 30 units BID SC Last administered on 06/26/18at 21:48; Admin Dose 30 UNITS; Start 06/25/18 at 11:30 Amiodarone HCl (Cordarone) 200 mg BID PO Last administered on 06/27/18at 21:40; Admin Dose 200 MG; Start 06/25/18 at 11:30 Aspirin (Halfprin) 81 mg DAILY PO Last administered on 06/27/18 08:40; Admin Dose 81 MG; Start 06/25/18 at 11:30 Atorvastatin Calcium (Lipitor) 40 mg QHS PO Last administered on 06/27/18at 21:41; Admin Dose 40 MG; Start 06/25/18 at 21:00 Carvedilol (Coreg) 3.125 mg BID PO Last administered on 06/27/18 21:40; Admin Dose 3.125 MG; Start 06/25/18 at 11:30 Docusate Sodium (Colace) 100 mg TID PO Last administered on 06/27/18 21:39; Admin Dose 100 MG; Start 06/25/18 at 13:00 Miscellaneous Information 1 ea NOTE XX ; Start 06/25/18 at 11:30 Glucose (Glutose) 15 gm Q15M PRN PO DECREASED GLUCOSE; Start 06/25/18 at 11:30 Glucose (Glutose) 22.5 gm Q15M PRN PO DECREASED GLUCOSE; Start 06/25/18 at 11:30 Dextrose (D50w Syringe) 25 ml Q15M PRN IV DECREASED GLUCOSE; Start 06/25/18 at 11:30 Dextrose (D50w Syringe) 50 ml Q15M PRN IV DECREASED GLUCOSE; Start 06/25/18 at 11:30 Glucagon (Glucagen) 1 mg Q15M PRN IM DECREASED GLUCOSE; Start 06/25/18 at 11:30 Glucose (Glutose) 15 gm Q15M PRN BUCCAL DECREASED GLUCOSE; Start 06/25/18 at 11:30 Heparin Sodium (Porcine) (Heparin (1000 Units/ml)) 7,000 unit PER PROTOCOL PRN IV aPTT<47; Start 06/25/18 at 13:00 Heparin Sodium (Porcine) (Heparin (1000 Units/ml)) 3,500 unit PER PROTOCOL PRN IV aPTT<47-57; Start 06/25/18 at 13:00 Heparin Sodium (Porcine) 250 ml @ 0 mls/hr PER PROTOCOL IV Last administered on 06/27/18at 03:05; Admin Dose 12.5 MLS/HR; Start 06/25/18 at 13:00 Diagnostic Test (Pha) (Accu-Chek) 1 ea 02 XX Last administered on 06/27/18at 03:09; Admin Dose 1 EA; Start 06/26/18 at 02:00 Morphine Sulfate (morphine) 2 mg Q4H PRN IV SEVERE PAIN LEVEL 7-10 Last administered on 06/26/18at 22:18; Admin Dose 2 MG; Start 06/26/18 at 10:00 Clonidine (Catapres) 0.1 mg BID PO Last administered on 06/27/18at 21:40; Admin Dose 0.1 MG; Start 06/27/18 at 06:00 Dextrose/Sodium Chloride 1,000 ml @ 60 mls/hr [id number] IV Last administered on 06/27/18at 03:00; Admin Dose 40 MLS/HR; Start 06/27/18 at 00:06 Lorazepam (Ativan) 0.5 mg Q8H PRN IV ANXIETY; Start 06/27/18 at 10:30 Insulin Aspart (Novolog Insulin Pen) NOVOLOG *MILD* ALGORITHM WITH MEALS BEDTIME SC ; Start 06/28/18 at 07:35 JOSÉ FRANZ MD Jun 27, 2018 22:23
[2018-06-28] VITALS (31 sets, daily range): BP systolic 77–133; BP diastolic 35–114; PULSE 63–79; RESP 13–22
[2018-06-28] MEDS: HEPARIN 25000 UNITS/250 ML 250 ML IV SCH (00:43)
[2018-06-28] MEDS ORDERED: ONDANSETRON 4 MG INJ IV PRN (01:30)
[2018-06-28] MEDS ORDERED: ACCU-CHEK XX SCH (02:00)
[2018-06-28] MEDS: ACCU-CHEK XX SCH (02:13)
[2018-06-28] MEDS: PANTOPRAZOLE 40 MG INJ IV SCH (05:46)
[2018-06-28] MEDS: DOCUSATE SODIUM 100 MG CAP PO SCH ×3 (08:15→21:28)
[2018-06-28] MEDS: ASPIRIN (EC) 81 MG TAB PO SCH (08:15)
[2018-06-28] MEDS: AMIODARONE 200 MG TAB PO SCH ×2 (08:16→21:30)
[2018-06-28] MEDS: INSULIN GLARGINE [LANTus] (100 UNITS/ML) SYG SC SCH ×2 (08:17→21:36)
[2018-06-28] MEDS: INSULIN ASPART [NOVOLOG] 3 ML PEN SC SCH ×4 (08:18→21:36)
--- NOTE | 2018-06-28 11:41 | PN ---
Date/Time of Note Date/Time of Note DATE: 06/28/18 TIME: 11:40 Assessment/Plan Lines/Catheters IV Catheter Type (from Nrsg): Peripheral IV Odonnell in Place (from Nrsg): No Assessment/Plan Assessment/Plan Status post thrombectomy left femoral artery She has strong Doppler signals in the posterior tibial and anterior tibial artery Foot is warm Continue anticoagulation His cussed with the referring physicians Subjective 24 Hr Interval Summary Constitutional: improved Pain Control: mild Exam/Review of Systems Vital Signs Vitals Vital Signs Date Temp Pulse Resp B/P (MAP) Pulse Ox O2 O2 Flow FiO2 Time Delivery Rate 06/28/18 76 20 91/53 (66) 100 10:30 06/28/18 Nasal 2.0 10:00 Cannula 06/28/18 98.5 08:00 Intake and Output 06/27/18 06/27/18 06/28/18 1515:00 23:00 07:00 IntakeIntake Total 1794.0 ml 133.5 ml OutputOutput Total 50 ml 685 ml BalanceBalance 1744.0 ml -551.5 ml Exam ENMT: nl external ears & nose, nl lips & teeth, nl nasal mucosa & septum, mucosa pink and moist Neck: supple, non-tender Respiratory: clear to auscultation, normal air movement Cardiovascular: regular rate and rhythm, nl pulses Gastrointestinal: soft, nl liver, spleen, non-tender Musculoskeletal: nl extremities to inspection, nl gait and stance Additional Comments Left foot warm Doppler signals present left posterior tibial and anterior tibial artery Results Result Diagram: 06/28/18 0400 06/28/180 KELLEY GARY MD Jun 28, 2018 11:41
--- NOTE | 2018-06-28 12:55 | CONS ---
Assessment/Plan Assessment/Plan Assessment/Plan (Daily) - Acute Kidney Injury - Chronic Kidney Disease - DM / DM Nephropathy - Hyperkalemia - CAD / Post CABG - Hx of NSAID use - PVD / Ischemia - CAD / CHF - Anaemia - Hypertension / HTN Nephrosclerosis - High Cholesterol PLAN: - Poorly controlled DM with latest HgA1c > 10% & a long hx of NSAIDs use - BRANDON / CKD secondary to above with severe PVD / HTN Nephrosclerosis - Most probably require intervention which requires IV contrast & high risk Contrast Nephropathy at this point - At this point she is off all Nephrotoxic agents - Continue with Gentle hydration - Watch for sign of volume overload - Check: * URIC ACID * FENa * Urine Eosinophilia * Serial Creatinine check * - Recovering BRANDON - Tolerated procedure well ( post Thrombectomy ) - Dropping H/H - Check IRON status - Start EPOGEN - Electrolytes stable Consultation Date/Type/Reason Admit Date/Time Jun 25, 2018 at 06:24 Initial Consult Date 06/26/18 Type of Consult - Nephrology Requesting Provider: NUBIA TEJEDA MD Date/Time of Note DATE: 06/28/18 TIME: 12:51 24 HR Interval Summary Constitutional: no complaints, improved Exam/Review of Systems Exam Vitals Vital Signs Date Temp Pulse Resp B/P (MAP) Pulse Ox O2 O2 Flow FiO2 Time Delivery Rate 06/28/18 76 20 91/53 (66) 100 10:30 06/28/18 Nasal 2.0 10:00 Cannula 06/28/18 98.5 08:00 Intake and Output 06/27/18 06/27/18 06/28/18 1515:00 23:00 07:00 IntakeIntake Total 1794.0 ml 133.5 ml OutputOutput Total 50 ml 685 ml BalanceBalance 1744.0 ml -551.5 ml Constitutional: alert, oriented Psych: no complaints Neck: supple Respiratory: crackles/rales Cardiovascular: regular rate and rhythm, systolic murmur Gastrointestinal: soft Results Result Diagram: 06/28/18 0400 06/28/18 0400 Results 24hrs Laboratory Tests Test 06/27/18 16:16 06/27/18 16:54 06/27/18 20:49 06/27/18 22:21 Bedside Glucose 93 111 138 Activated 107.6 *H Partial Thromboplast Time Test 06/27/18 22:53 06/28/18 01:49 06/28/18 04:00 06/28/18 07:01 Activated 139.1 *H Partial Thromboplast Time Bedside Glucose 170 139 White Blood Count 13.2 #H Red Blood Count 3.26 L Hemoglobin 9.1 L Hematocrit 29.3 L Mean Corpuscular 89.9 Volume Mean Corpuscular 27.9 L Hemoglobin Mean Corpuscular 31.1 L Hemoglobin Concent Red Cell 13.0 Distribution Width Platelet Count 252 Mean Platelet Volume 11.3 H Immature 0.600 H Granulocytes % Neutrophils % 83.4 H Lymphocytes % 9.1 L Monocytes % 6.1 Eosinophils % 0.5 Basophils % 0.3 Nucleated Red Blood 0.0 Cells % Immature 0.080 H Granulocytes # Neutrophils # 11.0 H Lymphocytes # 1.2 Monocytes # 0.8 Eosinophils # 0.1 Basophils # 0.0 Nucleated Red Blood 0.0 Cells # Sodium Level 140 Potassium Level 4.8 Chloride Level 107 Carbon Dioxide Level 28 Anion Gap 5 Blood Urea Nitrogen 36 H Creatinine 2.00 H Est Glomerular Filtrat Rate mL/min Glucose Level 143 # Calcium Level 9.4 B-Type Natriuretic 2080 H Peptide Test 06/28/18 08:14 06/28/18 09:12 06/28/18 11:42 Bedside Glucose 143 202 Activated 77.1 *H Partial Thromboplast Time Medications Medication Current Medications Insulin Glargine (Lantus) 30 units BID SC Last administered on 06/28/18 08:17; Admin Dose 30 UNITS; Start 06/25/18 at 11:30 Amiodarone HCl (Cordarone) 200 mg BID PO Last administered on 06/28/18at 08:16; Admin Dose 200 MG; Start 06/25/18 at 11:30 Aspirin (Halfprin) 81 mg DAILY PO Last administered on 06/28/18at 08:15; Admin Dose 81 MG; Start 06/25/18 at 11:30 Atorvastatin Calcium (Lipitor) 40 mg QHS PO Last administered on 06/27/18at 21:41; Admin Dose 40 MG; Start 06/25/18 at 21:00 Carvedilol (Coreg) 3.125 mg BID PO Last administered on 06/28/18at 08:15; Admin Dose 3.125 MG; Start 06/25/18 at 11:30 Docusate Sodium (Colace) 100 mg TID PO Last administered on 06/28/18at 08:15; Admin Dose 100 MG; Start 06/25/18 at 13:00 Miscellaneous Information 1 ea NOTE XX ; Start 06/25/18 at 11:30 Glucose (Glutose) 15 gm Q15M PRN PO DECREASED GLUCOSE; Start 06/25/18 at 11:30 Glucose (Glutose) 22.5 gm Q15M PRN PO DECREASED GLUCOSE; Start 06/25/18 at 11:30 Dextrose (D50w Syringe) 25 ml Q15M PRN IV DECREASED GLUCOSE; Start 06/25/18 at 11:30 Dextrose (D50w Syringe) 50 ml Q15M PRN IV DECREASED GLUCOSE; Start 06/25/18 at 11:30 Glucagon (Glucagen) 1 mg Q15M PRN IM DECREASED GLUCOSE; Start 06/25/18 at 11:30 Glucose (Glutose) 15 gm Q15M PRN BUCCAL DECREASED GLUCOSE; Start 06/25/18 at 11:30 Heparin Sodium (Porcine) (Heparin (1000 Units/ml)) 7,000 unit PER PROTOCOL PRN IV aPTT<47; Start 06/25/18 at 13:00 Heparin Sodium (Porcine) (Heparin (1000 Units/ml)) 3,500 unit PER PROTOCOL PRN IV aPTT<47-57; Start 06/25/18 at 13:00 Heparin Sodium (Porcine) 250 ml @ 0 mls/hr PER PROTOCOL IV Last administered on 06/28/18at 00:43; Admin Dose 10.5 MLS/HR; Start 06/25/18 at 13:00 Diagnostic Test (Pha) (Accu-Chek) 1 ea 02 XX Last administered on 06/28/18at 02:13; Admin Dose 1 EA; Start 06/26/18 at 02:00 Morphine Sulfate (morphine) 2 mg Q4H PRN IV SEVERE PAIN LEVEL 7-10 Last administered on 06/26/18at 22:18; Admin Dose 2 MG; Start 06/26/18 at 10:00 Clonidine (Catapres) 0.1 mg BID PO Last administered on 06/28/18at 08:16; Admin Dose 0.1 MG; Start 06/27/18 at 06:00 Lorazepam (Ativan) 0.5 mg Q8H PRN IV ANXIETY; Start 06/27/18 at 10:30 Insulin Aspart (Novolog Insulin Pen) NOVOLOG *MILD* ALGORITHM WITH MEALS BEDTIME SC Last administered on 06/28/18at 11:46; Admin Dose 2 UNIT; Start 06/28/18 at 07:35 Ondansetron HCl (Zofran Inj) 4 mg Q4H PRN IV NAUSEA AND/OR VOMITING; Start 06/28/18 at 01:30 Pantoprazole (Protonix Iv) 40 mg DAILY@06 IV Last administered on 06/28/18at 05:46; Admin Dose 40 MG; Start 06/28/18 at 06:00 FRANCISCO MARISCAL MD Jun 28, 2018 12:55
--- NOTE | 2018-06-28 13:46 | CONS ---
Consult Date/Type/Reason Admit Date/Time Jun 25, 2018 at 06:24 Initial Consult Date 06/26/18 Type of Consultation: cv Requesting Provider: NUBIA TEJEDA MD Date/Time of Note DATE: 06/28/18 TIME: 13:38 Subjective Cardiology follow-up progress note Subjective: Discussed with the staff and telemetry was reviewed. Patient is currently in sinus rhythm Discussed with patient primary care physician Dr. Cates as well as patient's daughter in law at the bedside Patient with no chest pain or pressure no bleeding activity reported now She is a still coughing and short shortness of breath but is stable Objective: General: no acute distress HEENT: NC/AT. pupils are equal. round. NECK: . no stridor. Chest: Status with previous sternotomy CV: RRR. systolic murmur; no gallop or rubs. PULM:+ rhonchi. GI: SOFT, NT, ND, no rebound or guarding Extremity:+ B/L LE edema. no clubbing. neuro: awake and alert Psych: calm and pleasant rectal: deferred Objective Vitals Vital Signs Date Temp Pulse Resp B/P (MAP) Pulse Ox O2 O2 Flow FiO2 Time Delivery Rate 06/28/18 76 20 91/53 (66) 100 10:30 06/28/18 Nasal 2.0 10:00 Cannula 06/28/18 98.5 08:00 Intake and Output 06/27/18 06/27/18 06/28/18 1515:00 23:00 07:00 IntakeIntake Total 1794.0 ml 133.5 ml OutputOutput Total 50 ml 685 ml BalanceBalance 1744.0 ml -551.5 ml Results/Medications Result Diagram: 06/28/18 0400 06/28/18 0400 Results 24 hrs Laboratory Tests Test 06/27/18 16:16 06/27/18 16:54 06/27/18 20:49 06/27/18 22:21 Bedside Glucose 93 111 138 Activated 107.6 *H Partial Thromboplast Time Test 06/27/18 22:53 06/28/18 01:49 06/28/18 04:00 06/28/18 07:01 Activated 139.1 *H Partial Thromboplast Time Bedside Glucose 170 139 White Blood Count 13.2 #H Red Blood Count 3.26 L Hemoglobin 9.1 L Hematocrit 29.3 L Mean Corpuscular 89.9 Volume Mean Corpuscular 27.9 L Hemoglobin Mean Corpuscular 31.1 L Hemoglobin Concent Red Cell 13.0 Distribution Width Platelet Count 252 Mean Platelet Volume 11.3 H Immature 0.600 H Granulocytes % Neutrophils % 83.4 H Lymphocytes % 9.1 L Monocytes % 6.1 Eosinophils % 0.5 Basophils % 0.3 Nucleated Red Blood 0.0 Cells % Immature 0.080 H Granulocytes # Neutrophils # 11.0 H Lymphocytes # 1.2 Monocytes # 0.8 Eosinophils # 0.1 Basophils # 0.0 Nucleated Red Blood 0.0 Cells # Sodium Level 140 Potassium Level 4.8 Chloride Level 107 Carbon Dioxide Level 28 Anion Gap 5 Blood Urea Nitrogen 36 H Creatinine 2.00 H Est Glomerular Filtrat Rate mL/min Glucose Level 143 # Calcium Level 9.4 B-Type Natriuretic 2080 H Peptide Test 06/28/18 08:14 06/28/18 09:12 06/28/18 11:42 Bedside Glucose 143 202 Activated 77.1 *H Partial Thromboplast Time Home Meds Reported Medications Clonidine Hcl* (Clonidine Hcl*) 0.1 Mg Tab, 0.1 MG PO Q8, TAB 06/25/18 Furosemide* (Furosemide*) 20 Mg Tablet, 20 MG PO DAILY 06/25/18 Carvedilol* (Carvedilol*) 3.125 Mg Tablet, 3.125 MG PO BID for 30 Days, #60 06/25/18 Amiodarone Hcl* (Amiodarone Hcl*) 200 Mg Tablet, 200 MG PO BID, #60 TAB 06/17/18 Dulaglutide (Trulicity) 0.75 Mg/0.5 Ml Pen.injctr, 1.75 MG SQ WEEKLY 06/11/18 Insulin Glargine,Hum.rec.anlog (Basaglar Kwikpen U-100) 100 Unit/1 Ml Insuln.pen, 20 UNIT SC DAILY, EA 06/11/18 Ergocalciferol (Vitamin D2) (VITAMIN D2) 2,000 Unit Tablet, 2000 UNIT PO DAILY, TAB 06/11/18 Alendronate Sodium* (Fosamax*) 70 Mg Tablet, 70 MG PO Q7D PRN for QMONDAYS, #4 TAB 3/13/19 Atenolol* (Atenolol*) 25 Mg Tablet, 25 MG PO BID, #60 TAB 06/11/18 Ferrous Sulfate (Ferrous Sulfate) 325 Mg Tablet.dr, 325 MG PO DAILY 06/11/18 Aspirin* (Aspirin* EC) 81 Mg Tablet.dr, 81 MG PO DAILY, TAB 06/11/18 Empagliflozin (Jardiance) 10 Mg Tablet, 10 MG PO DAILY, TAB 06/11/18 Esomeprazole Mag Trihydrate (Nexium) 20 Mg Capsule.dr, 20 MG PO AC BREAKFAST, #30 CAP 06/11/18 Gabapentin* (Gabapentin*) 100 Mg Capsule, 100 MG PO QHS, #90 CAP 06/11/18 Meloxicam* (Meloxicam*) 7.5 Mg Tablet, 7.5 MG PO DAILY, #30 TAB 06/11/18 Calcium Carbonate/Vitamin D3 (OYSTER SHELL 500 MG + VIT D TB) 1 Each Tablet, 1 EACH PO BID, TAB 06/11/18 Docusate Sodium* (Colace*) 100 Mg Capsule, 100 MG PO TID, #60 CAP 06/11/18 Metformin* (Glucophage*) 500 Mg Tab, 500 MG PO BID, #90 TAB 06/11/18 Atorvastatin* (Atorvastatin*) 40 Mg Tablet, 40 MG PO QHS, #30 TAB 06/11/18 Allopurinol* (Allopurinol*) 100 Mg Tablet, 100 MG PO BID, TAB 06/11/18 Discontinued Reported Medications Alendronate Sodium* (Fosamax*) 70 Mg Tablet, 70 MG PO Q7D, #4 TAB 06/11/18 Medications Current Medications Insulin Glargine (Lantus) 30 units BID SC Last administered on 06/28/18at 08:17; Admin Dose 30 UNITS; Start 06/25/18 at 11:30 Amiodarone HCl (Cordarone) 200 mg BID PO Last administered on 06/28/18at 08:16; Admin Dose 200 MG; Start 06/25/18 at 11:30 Aspirin (Halfprin) 81 mg DAILY PO Last administered on 06/28/18at 08:15; Admin Dose 81 MG; Start 06/25/18 at 11:30 Atorvastatin Calcium (Lipitor) 40 mg QHS PO Last administered on 06/27/18at 21:41; Admin Dose 40 MG; Start 06/25/18 at 21:00 Carvedilol (Coreg) 3.125 mg BID PO Last administered on 06/28/18at 08:15; Admin Dose 3.125 MG; Start 06/25/18 at 11:30 Docusate Sodium (Colace) 100 mg TID PO Last administered on 06/28/18at 13:19; Admin Dose 100 MG; Start 06/25/18 at 13:00 Miscellaneous Information 1 ea NOTE XX ; Start 06/25/18 at 11:30 Glucose (Glutose) 15 gm Q15M PRN PO DECREASED GLUCOSE; Start 06/25/18 at 11:30 Glucose (Glutose) 22.5 gm Q15M PRN PO DECREASED GLUCOSE; Start 06/25/18 at 11:30 Dextrose (D50w Syringe) 25 ml Q15M PRN IV DECREASED GLUCOSE; Start 06/25/18 at 11:30 Dextrose (D50w Syringe) 50 ml Q15M PRN IV DECREASED GLUCOSE; Start 06/25/18 at 11:30 Glucagon (Glucagen) 1 mg Q15M PRN IM DECREASED GLUCOSE; Start 06/25/18 at 11:30 Glucose (Glutose) 15 gm Q15M PRN BUCCAL DECREASED GLUCOSE; Start 06/25/18 at 11:30 Heparin Sodium (Porcine) (Heparin (1000 Units/ml)) 7,000 unit PER PROTOCOL PRN IV aPTT<47; Start 06/25/18 at 13:00 Heparin Sodium (Porcine) (Heparin (1000 Units/ml)) 3,500 unit PER PROTOCOL PRN IV aPTT<47-57; Start 06/25/18 at 13:00 Heparin Sodium (Porcine) 250 ml @ 0 mls/hr PER PROTOCOL IV Last administered on 06/28/18at 00:43; Admin Dose 10.5 MLS/HR; Start 06/25/18 at 13:00 Diagnostic Test (Pha) (Accu-Chek) 1 ea 02 XX Last administered on 06/28/18at 02:13; Admin Dose 1 EA; Start 06/26/18 at 02:00 Morphine Sulfate (morphine) 2 mg Q4H PRN IV SEVERE PAIN LEVEL 7-10 Last administered on 06/26/18at 22:18; Admin Dose 2 MG; Start 06/26/18 at 10:00 Clonidine (Catapres) 0.1 mg BID PO Last administered on 06/28/18at 08:16; Admin Dose 0.1 MG; Start 06/27/18 at 06:00 Lorazepam (Ativan) 0.5 mg Q8H PRN IV ANXIETY; Start 06/27/18 at 10:30 Insulin Aspart (Novolog Insulin Pen) NOVOLOG *MILD* ALGORITHM WITH MEALS BEDTIME SC Last administered on 06/28/18at 11:46; Admin Dose 2 UNIT; Start 06/28/18 at 07:35 Ondansetron HCl (Zofran Inj) 4 mg Q4H PRN IV NAUSEA AND/OR VOMITING; Start 06/28/18 at 01:30 Pantoprazole (Protonix Iv) 40 mg DAILY@06 IV Last administered on 06/28/18at 05:46; Admin Dose 40 MG; Start 06/28/18 at 06:00 Epoetin Alejo (Epogen (Neserd)) 6,000 units TuThSa@17 SC ; Start 06/28/18 at 17:00 Assessment/Plan Hospital Course (Demo Recall) Occlusive left common femoral artery with lower extremity pain: Status post thrombectomy Acute kidney injury, improving Acute decompensated systolic congestive heart failure-improving Cardiomyopathy with left ventricular ejection fraction 50% Paroxysmal atrial fibrillation CAD with history of CABG History of renal carcinoma status post nephrectomy approximately 8 years ago Hypertension Diabetes Anemia and history of bleeding in the past Recommendations: Continue with IV heparin now given patient's history of proximal atrial fibrillation as well as ischemic leg. Heparin to be switched to oral anticoagulant later on if she has no signs of bleeding. For now however continue with a heparin drip to be able to adjusted better as needed I will change the clonidine to only as needed for systolic blood pressure more than 180. NSAID if needed Coreg to be increased however patient currently remains mostly hypotensive Diuretics will be deferred to renal team given her acute renal failure Postop care to be continued Thank you for his referral. We will continue to follow along with you until Dr. Rodrigues returns on Saturday SASKIA PIERSON MD [facility] SASKIA PIERSON MD Jun 28, 2018 13:46
[2018-06-28] MEDS ORDERED: EPOETIN ALFA (NESRD) 3,000 UNITS/ML VIAL SC SCH (17:00)
[2018-06-28] MEDS: ATORVASTATIN 40 MG TAB PO SCH (21:28)
--- NOTE | 2018-06-28 22:17 | CONS ---
Assessment/Plan Assessment/Plan Hospital Course (Demo Recall) History of renal carcinoma status post nephrectomy focally prominent 2.7 cm soft tissue lobulation in the inferior left renal lower pole adjacent to surgical clips, possibly reflecting postsurgical change or recurrent neoplasm. Enhancing lobulated mass in the lower pole left kidney with no extension into the left renal vein. PET/CT OUTPT CT AP- REVIEWED can not give contrast PT REFUSED MRI LDH- NOTED F-UP OUTPT echocardiogram- echogenic structure in the right atrium, as well as attached to the tricuspid valve as well as the IVC. Differential includes vegetation, malignancy or thrombus. The IVC is focally distended at the inferior cavoatrial junction, containing an 8 mm metallic focus which may lie within intravenous tumor mass. Evaluation is quite limited in the absence of intravenous contrast. 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 Coarse calcifications in the left breast parenchyma, most likely benign. diagnostic mammography as outpt Acute congestive heart failure exacerbation. Acute sepsis, possible urinary tract infection. Elevated lactate levels. Type 2 diabetes mellitus, uncontrolled. Hyperglycemia. Diabetic neuropathy. Gastroesophageal reflux disease. Possible transient ischemic attacks. Hypertension, uncontrolled Peripheral vascular disease with left lower extremity ischemia post thrombectomy left femoral artery Renal failure with creatinine of 3.95 INTERMITTENT atrial fibrillation Consultation Date/Type/Reason Admit Date/Time Jun 25, 2018 at 06:24 Initial Consult Date 06/26/18 Type of Consult [facility] Requesting Provider: NUBIA TEJEDA MD Date/Time of Note DATE: 06/28/18 TIME: 22:15 24 HR Interval Summary Free Text/Dictation Status post thrombectomy left femoral artery Foot is warm ON anticoagulation Exam/Review of Systems Exam Vitals Vital Signs Date Temp Pulse Resp B/P (MAP) Pulse Ox O2 O2 Flow FiO2 Time Delivery Rate 06/28/18 70 20:42 06/28/18 Nasal 2.0 20:00 Cannula 06/28/18 98.9 19 100/60 93 19:55 (73) Intake and Output 06/27/18 06/27/18 06/28/18 1515:00 23:00 07:00 IntakeIntake Total 1794.0 ml 133.5 ml OutputOutput Total 50 ml 710 ml BalanceBalance 1744.0 ml -576.5 ml Exam Constitutional: alert, oriented Psych: no complaints Neck: supple Respiratory: crackles/rales Cardiovascular: regular rate and rhythm, systolic murmur Gastrointestinal: soft EXT- + PS Results Result Diagram: 06/28/18 0400 06/28/18 0400 Results 24hrs Laboratory Tests Test 06/27/18 22:21 06/27/18 22:53 06/28/18 01:49 06/28/18 04:00 Bedside Glucose 138 170 Activated 139.1 *H Partial Thromboplast Time White Blood Count 13.2 #H Red Blood Count 3.26 L Hemoglobin 9.1 L Hematocrit 29.3 L Mean Corpuscular 89.9 Volume Mean Corpuscular 27.9 L Hemoglobin Mean Corpuscular 31.1 L Hemoglobin Concent Red Cell 13.0 Distribution Width Platelet Count 252 Mean Platelet Volume 11.3 H Immature 0.600 H Granulocytes % Neutrophils % 83.4 H Lymphocytes % 9.1 L Monocytes % 6.1 Eosinophils % 0.5 Basophils % 0.3 Nucleated Red Blood 0.0 Cells % Immature 0.080 H Granulocytes # Neutrophils # 11.0 H Lymphocytes # 1.2 Monocytes # 0.8 Eosinophils # 0.1 Basophils # 0.0 Nucleated Red Blood 0.0 Cells # Sodium Level 140 Potassium Level 4.8 Chloride Level 107 Carbon Dioxide Level 28 Anion Gap 5 Blood Urea Nitrogen 36 H Creatinine 2.00 H Est Glomerular Filtrat Rate mL/min Glucose Level 143 # Calcium Level 9.4 B-Type Natriuretic 2080 H Peptide Test 06/28/18 07:01 06/28/18 08:14 06/28/18 09:12 06/28/18 11:42 Bedside Glucose 139 143 202 Activated 77.1 *H Partial Thromboplast Time Test 06/28/18 17:04 06/28/18 17:15 06/28/18 21:11 Activated 77.3 *H Partial Thromboplast Time Bedside Glucose 269 H 259 H Medications Medication Current Medications Insulin Glargine (Lantus) 30 units BID SC Last administered on 06/28/18at 21:36; Admin Dose 30 UNITS; Start 06/25/18 at 11:30 Amiodarone HCl (Cordarone) 200 mg BID PO Last administered on 06/28/18at 21:30; Admin Dose 200 MG; Start 06/25/18 at 11:30 Aspirin (Halfprin) 81 mg DAILY PO Last administered on 06/28/18at 08:15; Admin Dose 81 MG; Start 06/25/18 at 11:30 Atorvastatin Calcium (Lipitor) 40 mg QHS PO Last administered on 06/28/18at 21:28; Admin Dose 40 MG; Start 06/25/18 at 21:00 Carvedilol (Coreg) 3.125 mg BID PO Last administered on 06/28/18at 21:30; Admin Dose 3.125 MG; Start 06/25/18 at 11:30 Docusate Sodium (Colace) 100 mg TID PO Last administered on 06/28/18at 21:28; Admin Dose 100 MG; Start 06/25/18 at 13:00 Miscellaneous Information 1 ea NOTE XX ; Start 06/25/18 at 11:30 Glucose (Glutose) 15 gm Q15M PRN PO DECREASED GLUCOSE; Start 06/25/18 at 11:30 Glucose (Glutose) 22.5 gm Q15M PRN PO DECREASED GLUCOSE; Start 06/25/18 at 11:30 Dextrose (D50w Syringe) 25 ml Q15M PRN IV DECREASED GLUCOSE; Start 06/25/18 at 11:30 Dextrose (D50w Syringe) 50 ml Q15M PRN IV DECREASED GLUCOSE; Start 06/25/18 at 11:30 Glucagon (Glucagen) 1 mg Q15M PRN IM DECREASED GLUCOSE; Start 06/25/18 at 11:30 Glucose (Glutose) 15 gm Q15M PRN BUCCAL DECREASED GLUCOSE; Start 06/25/18 at 11:30 Heparin Sodium (Porcine) (Heparin (1000 Units/ml)) 7,000 unit PER PROTOCOL PRN IV aPTT<47; Start 06/25/18 at 13:00 Heparin Sodium (Porcine) (Heparin (1000 Units/ml)) 3,500 unit PER PROTOCOL PRN IV aPTT<47-57; Start 06/25/18 at 13:00 Heparin Sodium (Porcine) 250 ml @ 0 mls/hr PER PROTOCOL IV Last administered on 06/28/18at 00:43; Admin Dose 10.5 MLS/HR; Start 06/25/18 at 13:00 Diagnostic Test (Pha) (Accu-Chek) 1 ea 02 XX Last administered on 06/28/18at 02:13; Admin Dose 1 EA; Start 06/26/18 at 02:00 Morphine Sulfate (morphine) 2 mg Q4H PRN IV SEVERE PAIN LEVEL 7-10 Last administered on 06/26/18at 22:18; Admin Dose 2 MG; Start 06/26/18 at 10:00 Lorazepam (Ativan) 0.5 mg Q8H PRN IV ANXIETY; Start 06/27/18 at 10:30 Insulin Aspart (Novolog Insulin Pen) NOVOLOG *MILD* ALGORITHM WITH MEALS BEDTIME SC Last administered on 06/28/18at 21:36; Admin Dose 2 UNIT; Start 06/28/18 at 07:35 Ondansetron HCl (Zofran Inj) 4 mg Q4H PRN IV NAUSEA AND/OR VOMITING; Start 06/28/18 at 01:30 Pantoprazole (Protonix Iv) 40 mg DAILY@06 IV Last administered on 06/28/18at 05:46; Admin Dose 40 MG; Start 06/28/18 at 06:00 Epoetin Alejo (Epogen (Neserd)) 6,000 units TuThSa@17 SC Last administered on 06/28/18at 17:18; Admin Dose 6,000 UNITS; Start 06/28/18 at 17:00 Clonidine (Catapres) 0.1 mg BID PRN PO SBP > 180; Start 06/28/18 at 14:00 JOSÉ FRANZ MD Jun 28, 2018 22:17
[2018-06-29] VITALS (13 sets, daily range): BP systolic 117–187; BP diastolic 56–82; PULSE 63–78; RESP 18–22
[2018-06-29] MEDS: ACCU-CHEK XX SCH (02:00)
[2018-06-29] MEDS: PANTOPRAZOLE 40 MG INJ IV SCH (06:35)
[2018-06-29] MEDS: HEPARIN 25000 UNITS/250 ML 250 ML IV SCH ×2 (06:38→06:57)
[2018-06-29] MEDS: INSULIN ASPART [NOVOLOG] 3 ML PEN SC SCH ×4 (07:55→20:52)
[2018-06-29] MEDS: ASPIRIN (EC) 81 MG TAB PO SCH (08:43)
[2018-06-29] MEDS: DOCUSATE SODIUM 100 MG CAP PO SCH ×3 (08:43→20:39)
[2018-06-29] MEDS: AMIODARONE 200 MG TAB PO SCH ×2 (08:44→20:41)
[2018-06-29] MEDS: INSULIN GLARGINE [LANTus] (100 UNITS/ML) SYG SC SCH ×2 (08:46→20:52)
[2018-06-29] MEDS: ACETAMINOPHEN 325 MG TAB PO PRN ×2 (10:55→18:54)
--- NOTE | 2018-06-29 12:44 | PN ---
Date/Time of Note Date/Time of Note DATE: 06/29/18 TIME: 12:43 Assessment/Plan Lines/Catheters IV Catheter Type (from Nrsg): Peripheral IV Odonnell in Place (from Nrsg): Yes Assessment/Plan Assessment/Plan Status post thrombectomy left femoral artery She has strong Doppler signals in the posterior tibial and anterior tibial artery Foot is warm Continue anticoagulation Dcussed with the referring physicians Subjective 24 Hr Interval Summary Constitutional: improved Pain Control: mild Exam/Review of Systems Vital Signs Vitals Vital Signs Date Temp Pulse Resp B/P (MAP) Pulse Ox O2 O2 Flow FiO2 Time Delivery Rate 06/29/18 98.5 71 20 122/59 100 Nasal 2.0 12:14 (80) Cannula Intake and Output 06/28/18 06/28/18 06/29/18 1515:00 23:00 07:00 IntakeIntake Total 534.0 ml OutputOutput Total 150 ml 1500 ml BalanceBalance 384.0 ml -1500 ml Exam Eyes: nl conjunctiva, EOMI, nl lids, nl sclera ENMT: nl external ears & nose, nl lips & teeth, nl nasal mucosa & septum, mucosa pink and moist Neck: supple, non-tender Respiratory: clear to auscultation, normal air movement Cardiovascular: regular rate and rhythm, nl pulses Gastrointestinal: soft, nl liver, spleen, non-tender Musculoskeletal: nl extremities to inspection, nl gait and stance Results Result Diagram: 06/29/1852106/29/1822 KELLEY GARY MD Jun 29, 2018 12:44
--- NOTE | 2018-06-29 12:59 | PN ---
DATE: 06/28/2018 An 82-year-old female who came in with severe pain and coldness of the lower extremity, left more kaushal n the right. She had a blood clot in the femoral artery which was removed and sent to pathology by Kate Dawson. 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 She was just d ischarged from the hospital with CHF, atrial fibrillation with aspirin orally per decision made by lynette bhakta drainage engineer and myself due to frequent bleeding of the patient in the hospital. Therefore, she ca me in with increased discomfort over the lower extremity, thrombus of the lower extremity which was r emoved today. Patient is alert and oriented x3, in no distress. She still has pain and numbness of the lower extremity, but much better. Patient is status post left femoral artery thrombectomy. She has strong Doppler signs of the posterior tibia anterior. Foot is warm and she is continuing on anti coagulation. REVIEW OF SYSTEMS: The patient denies any headaches. Denies any nausea, vomiting. Denies any chest pain, denies any abdominal pain. Denies any fever, chills, or discomfort over the heart, lungs or a bdomen. PHYSICAL EXAMINATION: GENERAL: Alert and oriented x3. VITAL SIGNS: Blood pressure is 110/70, heart rate 70, respiratory rate 18. She is afebrile. HEENT: Atraumatic, normocephalic. Pupils are equal and reactive to light. Extraocular muscles are intact. Nares are clear, no obstruction, no deviation of the septum. Oral cavity normal oral hygien e. Ear canals are clear, no signs of inflammation or infection. Tympanic membranes are intact. NECK: Supple. No JVD, no surgical scars, no lymph nodes palpable over the neck. CHEST: AP contour within normal limits. Breasts and nipples are normal. HEART: Atrial fibrillation, controlled rate. ABDOMEN: Soft, positive bowel sounds, no hepatosplenomegaly, no masses palpable over the abdomen. LUNGS: Clear to auscultation, other than mild crackles over the bases of the lungs, otherwise negati ve. ABDOMEN: Soft, obese. Positive bowel sounds. EXTREMITIES: Warm over the lower extremities. Pulses are palpable and overall much better than befo re. LABORATORY DATA: White count is 13.2, hemoglobin 9.1, hematocrit 29.3, platelet count 252. Chemistr y: Sugars are better controlled, BUN is better, 36, creatinine 2.0, sodium 140, potassium 4.8. BMP is 2079. ASSESSMENT AND PLAN: The patient is status post thrombectomy of the femoral artery, congestive heart failure, atrial fibrillation, atherosclerotic vascular disease, coronary artery disease, renal cance r, and type 2 diabetes mellitus with complications. We will follow the patient tomorrow. We will co ntinue the heparin for anticoagulation and will follow. Dictated By: NUBIA TEJEDA MD SB/NTS Conf#: [id number] DID#: [id number] CC: ERNESTO MCGARRY MD;*EndCC*
--- NOTE | 2018-06-29 13:01 | PN ---
DATE: 06/29/2018 SUBJECTIVE: An 82-year-old female who is on tele right now status post femoral thrombectomy day #2. The patient had tolerated the procedure well, doing very well, alert and oriented x3, in no distress . REVIEW OF SYSTEMS: She does not have any headaches, just has difficulty sleeping at night. She katy es of any chest pain, denies of any cough, sputum production. Denies abdominal pain, nausea, vomitin g. Denies of any urgency, just has pain over the lower extremities; she says the burning sensation o cathy the extremities. OBJECTIVE: VITAL SIGNS: Blood pressure is 122/59, heart rate 71, respiratory rate 18. She is afebrile on 2 lit ers of oxygen and she is saturating 100%. HEENT: Atraumatic, normocephalic. Pupils are equal and reactive to light. Extraocular muscles are intact. Nares are clear, no obstruction, no deviation of the septum. CHEST: AP contour within normal limits. Breasts and nipples are normal. HEART: Atrial fibrillation, controlled rate with a heart rate of 68. LUNGS: Clear to auscultation. Very mild crackles, rhonchi over the bases. ABDOMEN: Soft, positive bowel sounds, no hepatosplenomegaly, no masses palpable over the abdomen. N o rebound tenderness. EXTREMITIES: Warm extremities and pulses are positive. LABORATORY DATA: Today, white blood cells 10.5, hemoglobin 7.7, dropped by almost 2, hematocrit 25.0 . PT, PTT, stable. Platelet count 240. Chemistry today, sodium 137, potassium 4.5, BUN 43, creatin ine 2.76, a little elevated since the angio and the dye yesterday, but will go down eventually and al so decreased in liver function tests. ASSESSMENT: The patient is status post thrombectomy femoral artery, diabetic neuropathy with pain an d burning sensation of the lower extremities, type 2 diabetes mellitus, uncontrolled, coronary artery disease, hypertension, CHF, atrial fibrillation. PLAN: Continue anticoagulation. We will increase the gabapentin at night to relieve the burning sen sation of the lower extremities. We will transfuse 2 units of packed red blood cells and will follow . Dictated By: NUBIA BREWER/JAYDEN Conf#: [id number] DID#: [id number] CC: ERNESTO MCGARRY MD;*EndCC*
--- NOTE | 2018-06-29 17:01 | CONS ---
Consult Date/Type/Reason Admit Date/Time Jun 25, 2018 at 06:24 Initial Consult Date 06/26/18 Type of Consultation: cv Requesting Provider: NUBIA TEJEDA MD Date/Time of Note DATE: 06/29/18 TIME: 17:00 Subjective Cardiology follow-up progress note Subjective: Discussed with the staff and telemetry was reviewed. Patient in junctiona/ afib now pt is out of ICU on tele now Patient with no chest pain or pressure no bleeding activity reported now She is a still coughing and short shortness of breath but is stable Objective: General: no acute distress HEENT: NC/AT. pupils are equal. round. NECK: . no stridor. Chest: Status with previous sternotomy CV: RRR. systolic murmur; no gallop or rubs. PULM:+ rhonchi. GI: SOFT, NT, ND, no rebound or guarding Extremity:+ B/L LE edema. no clubbing. neuro: awake and alert Psych: calm and pleasant rectal: deferred Objective Vitals Vital Signs Date Temp Pulse Resp B/P (MAP) Pulse Ox O2 O2 Flow FiO2 Time Delivery Rate 06/29/18 70 16:00 06/29/18 98.0 22 163/72 96 Room Air 15:59 (102) 06/29/18 2.0 12:14 Intake and Output 06/28/18 06/28/18 06/29/18 1515:00 23:00 07:00 IntakeIntake Total 534.0 ml OutputOutput Total 150 ml 1500 ml BalanceBalance 384.0 ml -1500 ml Results/Medications Result Diagram: 06/29/1852106/29/18 0522 Results 24 hrs Laboratory Tests Test 06/28/18 17:04 06/28/18 17:15 06/28/18 21:11 06/29/18 02:04 Activated 77.3 *H Partial Thromboplast Time Bedside Glucose 269 H 259 H 188 Test 06/29/18 05:22 06/29/18 05:43 06/29/18 08:10 06/29/18 12:25 White Blood Count 10.5 # Red Blood Count 2.76 L Hemoglobin 7.7 L Hematocrit 25.0 L Mean Corpuscular 90.6 Volume Mean Corpuscular 27.9 L Hemoglobin Mean Corpuscular 30.8 L Hemoglobin Concent Red Cell 13.3 Distribution Width Platelet Count 240 Mean Platelet Volume 12.0 H Immature 0.400 Granulocytes % Neutrophils % 63.6 Lymphocytes % 22.7 Monocytes % 10.1 Eosinophils % 2.8 Basophils % 0.4 Nucleated Red Blood 0.0 Cells % Immature 0.040 H Granulocytes # Neutrophils # 6.7 Lymphocytes # 2.4 Monocytes # 1.1 H Eosinophils # 0.3 Basophils # 0.0 Nucleated Red Blood 0.0 Cells # Sodium Level 137 Potassium Level 4.5 Chloride Level 102 Carbon Dioxide Level 28 Anion Gap 7 Blood Urea Nitrogen 43 H Creatinine 2.76 H Est Glomerular Filtrat Rate mL/min Glucose Level 131 Calcium Level 9.1 Magnesium Level 2.0 Iron Level 12 L Total Iron Binding 268 Capacity Percent Iron 4 L Saturation Total Bilirubin 0.3 Direct Bilirubin 0.00 Indirect Bilirubin 0.3 Aspartate Amino 44 Transf (AST/SGOT) Alanine 188 H Aminotransferase (AL T/SGPT) Alkaline Phosphatase 72 B-Type Natriuretic 1320 H Peptide Total Protein 5.7 L Albumin 3.2 L Globulin 2.50 Albumin/Globulin 1.28 Ratio Triglycerides Level 138 Cholesterol Level 112 LDL Cholesterol, 43 Calculated HDL Cholesterol 41 Cholesterol/HDL 2.7 Ratio Activated 58.4 H Partial Thromboplast Time Bedside Glucose 107 257 H Test 06/29/18 13:11 Activated 80.7 *H Partial Thromboplast Time Home Meds Reported Medications Clonidine Hcl* (Clonidine Hcl*) 0.1 Mg Tab, 0.1 MG PO Q8, TAB 06/25/18 Furosemide* (Furosemide*) 20 Mg Tablet, 20 MG PO DAILY 06/25/18 Carvedilol* (Carvedilol*) 3.125 Mg Tablet, 3.125 MG PO BID for 30 Days, #60 06/25/18 Amiodarone Hcl* (Amiodarone Hcl*) 200 Mg Tablet, 200 MG PO BID, #60 TAB 06/17/18 Dulaglutide (Trulicity) 0.75 Mg/0.5 Ml Pen.injctr, 1.75 MG SQ WEEKLY 06/11/18 Insulin Glargine,Hum.rec.anlog (Basaglar Kwikpen U-100) 100 Unit/1 Ml Insuln.pen, 20 UNIT SC DAILY, EA 06/11/18 Ergocalciferol (Vitamin D2) (VITAMIN D2) 2,000 Unit Tablet, 2000 UNIT PO DAILY, TAB 06/11/18 Alendronate Sodium* (Fosamax*) 70 Mg Tablet, 70 MG PO Q7D PRN for QMONDAYS, #4 TAB 06/11/18 Atenolol* (Atenolol*) 25 Mg Tablet, 25 MG PO BID, #60 TAB 06/11/18 Ferrous Sulfate (Ferrous Sulfate) 325 Mg Tablet.dr, 325 MG PO DAILY 06/11/18 Aspirin* (Aspirin* EC) 81 Mg Tablet.dr, 81 MG PO DAILY, TAB 06/11/18 Empagliflozin (Jardiance) 10 Mg Tablet, 10 MG PO DAILY, TAB 06/11/18 Esomeprazole Mag Trihydrate (Nexium) 20 Mg Capsule.dr, 20 MG PO AC BREAKFAST, #30 CAP 06/11/18 Gabapentin* (Gabapentin*) 100 Mg Capsule, 100 MG PO QHS, #90 CAP 06/11/18 Meloxicam* (Meloxicam*) 7.5 Mg Tablet, 7.5 MG PO DAILY, #30 TAB 06/11/18 Calcium Carbonate/Vitamin D3 (OYSTER SHELL 500 MG + VIT D TB) 1 Each Tablet, 1 EACH PO BID, TAB 06/11/18 Docusate Sodium* (Colace*) 100 Mg Capsule, 100 MG PO TID, #60 CAP 06/11/18 Metformin* (Glucophage*) 500 Mg Tab, 500 MG PO BID, #90 TAB 06/11/18 Atorvastatin* (Atorvastatin*) 40 Mg Tablet, 40 MG PO QHS, #30 TAB 06/11/18 Allopurinol* (Allopurinol*) 100 Mg Tablet, 100 MG PO BID, TAB 06/11/18 Discontinued Reported Medications Alendronate Sodium* (Fosamax*) 70 Mg Tablet, 70 MG PO Q7D, #4 TAB 06/11/18 Medications Current Medications Insulin Glargine (Lantus) 30 units BID SC Last administered on 06/29/18at 08:46; Admin Dose 30 UNITS; Start 06/25/18 at 11:30 Amiodarone HCl (Cordarone) 200 mg BID PO Last administered on 06/29/18at 08:44; Admin Dose 200 MG; Start 06/25/18 at 11:30 Aspirin (Halfprin) 81 mg DAILY PO Last administered on 06/29/18at 08:43; Admin Dose 81 MG; Start 06/25/18 at 11:30 Atorvastatin Calcium (Lipitor) 40 mg QHS PO Last administered on 06/28/18at 21:28; Admin Dose 40 MG; Start 06/25/18 at 21:00 Carvedilol (Coreg) 3.125 mg BID PO Last administered on 06/29/18at 09:11; Admin Dose 3.125 MG; Start 06/25/18 at 11:30 Docusate Sodium (Colace) 100 mg TID PO Last administered on 06/29/18at 12:55; Admin Dose 100 MG; Start 06/25/18 at 13:00 Miscellaneous Information 1 ea NOTE XX ; Start 06/25/18 at 11:30 Glucose (Glutose) 15 gm Q15M PRN PO DECREASED GLUCOSE; Start 06/25/18 at 11:30 Glucose (Glutose) 22.5 gm Q15M PRN PO DECREASED GLUCOSE; Start 06/25/18 at 11:30 Dextrose (D50w Syringe) 25 ml Q15M PRN IV DECREASED GLUCOSE; Start 06/25/18 at 11:30 Dextrose (D50w Syringe) 50 ml Q15M PRN IV DECREASED GLUCOSE; Start 06/25/18 at 11:30 Glucagon (Glucagen) 1 mg Q15M PRN IM DECREASED GLUCOSE; Start 06/25/18 at 11:30 Glucose (Glutose) 15 gm Q15M PRN BUCCAL DECREASED GLUCOSE; Start 06/25/18 at 11:30 Heparin Sodium (Porcine) (Heparin (1000 Units/ml)) 7,000 unit PER PROTOCOL PRN IV aPTT<47; Start 06/25/18 at 13:00 Heparin Sodium (Porcine) (Heparin (1000 Units/ml)) 3,500 unit PER PROTOCOL PRN IV aPTT<47-57; Start 06/25/18 at 13:00 Heparin Sodium (Porcine) 250 ml @ 0 mls/hr PER PROTOCOL IV Last administered on 06/29/18at 06:57; Admin Dose 12 MLS/HR; Start 06/25/18 at 13:00 Diagnostic Test (Pha) (Accu-Chek) 1 ea 02 XX Last administered on 06/28/18at 02:13; Admin Dose 1 EA; Start 06/26/18 at 02:00 Morphine Sulfate (morphine) 2 mg Q4H PRN IV SEVERE PAIN LEVEL 7-10 Last administered on 06/26/18at 22:18; Admin Dose 2 MG; Start 06/26/18 at 10:00 Lorazepam (Ativan) 0.5 mg Q8H PRN IV ANXIETY; Start 06/27/18 at 10:30 Insulin Aspart (Novolog Insulin Pen) NOVOLOG *MILD* ALGORITHM WITH MEALS BEDTIME SC Last administered on 06/29/18at 12:30; Admin Dose 3 UNIT; Start 06/28/18 at 07:35 Ondansetron HCl (Zofran Inj) 4 mg Q4H PRN IV NAUSEA AND/OR VOMITING; Start 06/28/18 at 01:30 Epoetin Alejo (Epogen (Neserd)) 6,000 units TuThSa@17 SC Last administered on 06/28/18at 17:18; Admin Dose 6,000 UNITS; Start 06/28/18 at 17:00 Clonidine (Catapres) 0.1 mg BID PRN PO SBP > 180; Start 06/28/18 at 14:00 Acetaminophen (Tylenol Tab) 650 mg Q4H PRN PO MILD PAIN(1-3)OR ELEVATED TEMP Last administered on 06/29/18at 10:55; Admin Dose 650 MG; Start 06/29/18 at 09:30 Gabapentin (Neurontin) 300 mg HS PO ; Start 06/29/18 at 21:00 Pantoprazole (Protonix Tab) 40 mg DAILY@06 PO ; Start 06/30/18 at 06:00 Assessment/Plan Hospital Course (Demo Recall) Occlusive left common femoral artery with lower extremity pain: Status post thrombectomy Acute kidney injury, improving Acute decompensated systolic congestive heart failure-improving Cardiomyopathy with left ventricular ejection fraction 50% Paroxysmal atrial fibrillation CAD with history of CABG History of renal carcinoma status post nephrectomy approximately 8 years ago Hypertension Diabetes Anemia and history of bleeding in the past Recommendations: Continue with IV heparin now given patient's history of proximal atrial fibrillation as well as ischemic leg. Heparin to be switched to oral anticoagulant later on if she has no signs of bleeding. For now however continue with a heparin drip to be able to adjusted better as needed transfusion prn Diuretics will be deferred to renal team given her acute renal failure Postop care to be continued Thank you for his referral. We will continue to follow along with you until Dr. Rodrigues returns on Saturday SASKIA PIERSON MD MERGED WITH [facility] SASKIA PIERSON MD Jun 29, 2018 17:01
--- NOTE | 2018-06-29 17:59 | CONS ---
Assessment/Plan Assessment/Plan Assessment/Plan (Daily) - Acute Kidney Injury - Chronic Kidney Disease - DM / DM Nephropathy - Hyperkalemia - CAD / Post CABG - Hx of NSAID use - PVD / Ischemia - CAD / CHF - Anaemia - Hypertension / HTN Nephrosclerosis - High Cholesterol PLAN: - Poorly controlled DM with latest HgA1c > 10% & a long hx of NSAIDs use - BRANDON / CKD secondary to above with severe PVD / HTN Nephrosclerosis - Most probably require intervention which requires IV contrast & high risk Contrast Nephropathy at this point - At this point she is off all Nephrotoxic agents - Continue with Gentle hydration - Watch for sign of volume overload - Check: * URIC ACID * FENa * Urine Eosinophilia * Serial Creatinine check * - Recovering BRANDON - Tolerated procedure well ( post Thrombectomy ) - Dropping H/H - Check IRON status - Start EPOGEN - Electrolytes stable - Sllight increase in creatinine today - Avoid negative balance - Monitor H/H - On EPO - May need Blood transfusion Consultation Date/Type/Reason Admit Date/Time Jun 25, 2018 at 06:24 Initial Consult Date 06/26/18 Type of Consult - Nephrology Requesting Provider: NUBIA TEJEDA MD Date/Time of Note DATE: 06/29/18 TIME: 17:58 24 HR Interval Summary Constitutional: no complaints Exam/Review of Systems Exam Vitals Vital Signs Date Temp Pulse Resp B/P (MAP) Pulse Ox O2 O2 Flow FiO2 Time Delivery Rate 06/29/18 70 16:00 06/29/18 98.0 22 163/72 96 Room Air 15:59 (102) 06/29/18 2.0 12:14 Intake and Output 06/28/18 06/28/18 06/29/18 1515:00 23:00 07:00 IntakeIntake Total 534.0 ml OutputOutput Total 150 ml 1500 ml BalanceBalance 384.0 ml -1500 ml Constitutional: alert Psych: no complaints Respiratory: crackles/rales Cardiovascular: edema, systolic murmur Gastrointestinal: soft Results Result Diagram: 06/29/1852106/29/18521 Results 24hrs Laboratory Tests Test 06/28/18 21:11 06/29/18 02:04 06/29/18 05:22 06/29/18 05:43 Bedside Glucose 259 H 188 White Blood Count 10.5 # Red Blood Count 2.76 L Hemoglobin 7.7 L Hematocrit 25.0 L Mean Corpuscular 90.6 Volume Mean Corpuscular 27.9 L Hemoglobin Mean Corpuscular 30.8 L Hemoglobin Concent Red Cell 13.3 Distribution Width Platelet Count 240 Mean Platelet Volume 12.0 H Immature 0.400 Granulocytes % Neutrophils % 63.6 Lymphocytes % 22.7 Monocytes % 10.1 Eosinophils % 2.8 Basophils % 0.4 Nucleated Red Blood 0.0 Cells % Immature 0.040 H Granulocytes # Neutrophils # 6.7 Lymphocytes # 2.4 Monocytes # 1.1 H Eosinophils # 0.3 Basophils # 0.0 Nucleated Red Blood 0.0 Cells # Sodium Level 137 Potassium Level 4.5 Chloride Level 102 Carbon Dioxide Level 28 Anion Gap 7 Blood Urea Nitrogen 43 H Creatinine 2.76 H Est Glomerular Filtrat Rate mL/min Glucose Level 131 Calcium Level 9.1 Magnesium Level 2.0 Iron Level 12 L Total Iron Binding 268 Capacity Percent Iron 4 L Saturation Total Bilirubin 0.3 Direct Bilirubin 0.00 Indirect Bilirubin 0.3 Aspartate Amino 44 Transf (AST/SGOT) Alanine 188 H Aminotransferase (AL T/SGPT) Alkaline Phosphatase 72 B-Type Natriuretic 1320 H Peptide Total Protein 5.7 L Albumin 3.2 L Globulin 2.50 Albumin/Globulin 1.28 Ratio Triglycerides Level 138 Cholesterol Level 112 LDL Cholesterol, 43 Calculated HDL Cholesterol 41 Cholesterol/HDL 2.7 Ratio Activated 58.4 H Partial Thromboplast Time Test 06/29/18 08:10 06/29/18 12:25 06/29/18 13:11 06/29/18 17:31 Bedside Glucose 107 257 H 205 Activated 80.7 *H Partial Thromboplast Time Medications Medication Current Medications Insulin Glargine (Lantus) 30 units BID SC Last administered on 06/29/18 08:46; Admin Dose 30 UNITS; Start 06/25/18 at 11:30 Amiodarone HCl (Cordarone) 200 mg BID PO Last administered on 06/29/18 08:44; Admin Dose 200 MG; Start 06/25/18 at 11:30 Aspirin (Halfprin) 81 mg DAILY PO Last administered on 06/29/18 08:43; Admin Dose 81 MG; Start 06/25/18 at 11:30 Atorvastatin Calcium (Lipitor) 40 mg QHS PO Last administered on 06/28/18 21:28; Admin Dose 40 MG; Start 06/25/18 at 21:00 Carvedilol (Coreg) 3.125 mg BID PO Last administered on 06/29/18 09:11; Admin Dose 3.125 MG; Start 06/25/18 at 11:30 Docusate Sodium (Colace) 100 mg TID PO Last administered on 06/29/18at 12:55; Admin Dose 100 MG; Start 06/25/18 at 13:00 Miscellaneous Information 1 ea NOTE XX ; Start 06/25/18 at 11:30 Glucose (Glutose) 15 gm Q15M PRN PO DECREASED GLUCOSE; Start 06/25/18 at 11:30 Glucose (Glutose) 22.5 gm Q15M PRN PO DECREASED GLUCOSE; Start 06/25/18 at 11:30 Dextrose (D50w Syringe) 25 ml Q15M PRN IV DECREASED GLUCOSE; Start 06/25/18 at 11:30 Dextrose (D50w Syringe) 50 ml Q15M PRN IV DECREASED GLUCOSE; Start 06/25/18 at 11:30 Glucagon (Glucagen) 1 mg Q15M PRN IM DECREASED GLUCOSE; Start 06/25/18 at 11:30 Glucose (Glutose) 15 gm Q15M PRN BUCCAL DECREASED GLUCOSE; Start 06/25/18 at 11:30 Heparin Sodium (Porcine) (Heparin (1000 Units/ml)) 7,000 unit PER PROTOCOL PRN IV aPTT<47; Start 06/25/18 at 13:00 Heparin Sodium (Porcine) (Heparin (1000 Units/ml)) 3,500 unit PER PROTOCOL PRN IV aPTT<47-57; Start 06/25/18 at 13:00 Heparin Sodium (Porcine) 250 ml @ 0 mls/hr PER PROTOCOL IV Last administered on 06/29/18 06:57; Admin Dose 12 MLS/HR; Start 06/25/18 at 13:00 Diagnostic Test (Pha) (Accu-Chek) 1 ea 02 XX Last administered on 06/28/18at 02:13; Admin Dose 1 EA; Start 06/26/18 at 02:00 Morphine Sulfate (morphine) 2 mg Q4H PRN IV SEVERE PAIN LEVEL 7-10 Last administered on 06/26/18 22:18; Admin Dose 2 MG; Start 06/26/18 at 10:00 Lorazepam (Ativan) 0.5 mg Q8H PRN IV ANXIETY; Start 06/27/18 at 10:30 Insulin Aspart (Novolog Insulin Pen) NOVOLOG *MILD* ALGORITHM WITH MEALS BEDTIME SC Last administered on 06/29/18at 17:36; Admin Dose 2 UNIT; Start 06/28/18 at 07:35 Ondansetron HCl (Zofran Inj) 4 mg Q4H PRN IV NAUSEA AND/OR VOMITING; Start 06/28/18 at 01:30 Epoetin Alejo (Epogen (Neserd)) 6,000 units TuThSa@17 SC Last administered on 06/28/18 17:18; Admin Dose 6,000 UNITS; Start 06/28/18 at 17:00 Clonidine (Catapres) 0.1 mg BID PRN PO SBP > 180; Start 06/28/18 at 14:00 Acetaminophen (Tylenol Tab) 650 mg Q4H PRN PO MILD PAIN(1-3)OR ELEVATED TEMP Last administered on 06/29/18 10:55; Admin Dose 650 MG; Start 06/29/18 at 09:30 Gabapentin (Neurontin) 300 mg HS PO ; Start 06/29/18 at 21:00 Pantoprazole (Protonix Tab) 40 mg DAILY@06 PO ; Start 06/30/18 at 06:00 FRANCISCO MARISCAL MD Jun 29, 2018 17:58
[2018-06-29] MEDS: ATORVASTATIN 40 MG TAB PO SCH (20:41)
[2018-06-29] MEDS: GABAPENTIN 300 MG CAP PO SCH (20:41)
--- NOTE | 2018-06-29 21:36 | CONS ---
Assessment/Plan Assessment/Plan Hospital Course (Demo Recall) History of renal carcinoma status post nephrectomy focally prominent 2.7 cm soft tissue lobulation in the inferior left renal lower pole adjacent to surgical clips, possibly reflecting postsurgical change or recurrent neoplasm. Enhancing lobulated mass in the lower pole left kidney with no extension into the left renal vein. PET/CT OUTPT CT AP- REVIEWED can not give contrast PT REFUSED MRI LDH- NOTED F-UP OUTPT echocardiogram- echogenic structure in the right atrium, as well as attached to the tricuspid valve as well as the IVC. Differential includes vegetation, malignancy or thrombus. The IVC is focally distended at the inferior cavoatrial junction, containing an 8 mm metallic focus which may lie within intravenous tumor mass. Evaluation is quite limited in the absence of intravenous contrast. 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 Coarse calcifications in the left breast parenchyma, most likely benign. diagnostic mammography as outpt Acute congestive heart failure exacerbation. Acute sepsis, possible urinary tract infection. Elevated lactate levels. Type 2 diabetes mellitus, uncontrolled. Hyperglycemia. Diabetic neuropathy. Gastroesophageal reflux disease. Possible transient ischemic attacks. Hypertension, uncontrolled Renal failure with creatinine of 3.95 INTERMITTENT atrial fibrillation Consultation Date/Type/Reason Admit Date/Time Jun 25, 2018 at 06:24 Initial Consult Date 06/26/18 Type of Consult [facility] Requesting Provider: NUBIA TEJEDA MD Date/Time of Note DATE: 06/29/18 TIME: 21:35 24 HR Interval Summary Free Text/Dictation ALL NOTED NAD D 2 - POSTOP Exam/Review of Systems Exam Vitals Vital Signs Date Temp Pulse Resp B/P (MAP) Pulse Ox O2 O2 Flow FiO2 Time Delivery Rate 06/29/18 78 20:53 06/29/18 98.1 20 187/82 96 20:00 (117) 06/29/18 2.0 18:50 06/29/18 Room Air 15:59 Intake and Output 06/28/18 06/28/18 06/29/18 1515:00 23:00 07:00 IntakeIntake Total 534.0 ml OutputOutput Total 150 ml 1500 ml BalanceBalance 384.0 ml -1500 ml Exam Constitutional: alert, oriented Psych: no complaints Neck: supple Respiratory: crackles/rales Cardiovascular: regular rate and rhythm, systolic murmur Gastrointestinal: soft EXT- + PS, WARM Results Result Diagram: 06/29/18 0522 06/29/18 0522 Results 24hrs Laboratory Tests Test 06/29/18 02:04 06/29/18 05:22 06/29/18 05:43 06/29/18 08:10 Bedside Glucose 188 107 White Blood Count 10.5 # Red Blood Count 2.76 L Hemoglobin 7.7 L Hematocrit 25.0 L Mean Corpuscular 90.6 Volume Mean Corpuscular 27.9 L Hemoglobin Mean Corpuscular 30.8 L Hemoglobin Concent Red Cell 13.3 Distribution Width Platelet Count 240 Mean Platelet Volume 12.0 H Immature 0.400 Granulocytes % Neutrophils % 63.6 Lymphocytes % 22.7 Monocytes % 10.1 Eosinophils % 2.8 Basophils % 0.4 Nucleated Red Blood 0.0 Cells % Immature 0.040 H Granulocytes # Neutrophils # 6.7 Lymphocytes # 2.4 Monocytes # 1.1 H Eosinophils # 0.3 Basophils # 0.0 Nucleated Red Blood 0.0 Cells # Sodium Level 137 Potassium Level 4.5 Chloride Level 102 Carbon Dioxide Level 28 Anion Gap 7 Blood Urea Nitrogen 43 H Creatinine 2.76 H Est Glomerular Filtrat Rate mL/min Glucose Level 131 Calcium Level 9.1 Magnesium Level 2.0 Iron Level 12 L Total Iron Binding 268 Capacity Percent Iron 4 L Saturation Total Bilirubin 0.3 Direct Bilirubin 0.00 Indirect Bilirubin 0.3 Aspartate Amino 44 Transf (AST/SGOT) Alanine 188 H Aminotransferase (AL T/SGPT) Alkaline Phosphatase 72 B-Type Natriuretic 1320 H Peptide Total Protein 5.7 L Albumin 3.2 L Globulin 2.50 Albumin/Globulin 1.28 Ratio Triglycerides Level 138 Cholesterol Level 112 LDL Cholesterol, 43 Calculated HDL Cholesterol 41 Cholesterol/HDL 2.7 Ratio Activated 58.4 H Partial Thromboplast Time Test 06/29/18 12:25 06/29/18 13:11 06/29/18 17:31 06/29/18 20:38 Bedside Glucose 257 H 205 298 H Activated 80.7 *H 80.8 *H Partial Thromboplast Time Medications Medication Current Medications Insulin Glargine (Lantus) 30 units BID SC Last administered on 06/29/18at 20:52; Admin Dose 30 UNITS; Start 06/25/18 at 11:30 Amiodarone HCl (Cordarone) 200 mg BID PO Last administered on 06/29/18 20:41; Admin Dose 200 MG; Start 06/25/18 at 11:30 Aspirin (Halfprin) 81 mg DAILY PO Last administered on 06/29/18 08:43; Admin Dose 81 MG; Start 06/25/18 at 11:30 Atorvastatin Calcium (Lipitor) 40 mg QHS PO Last administered on 06/29/18 20:41; Admin Dose 40 MG; Start 06/25/18 at 21:00 Carvedilol (Coreg) 3.125 mg BID PO Last administered on 06/29/18 20:41; Admin Dose 3.125 MG; Start 06/25/18 at 11:30 Docusate Sodium (Colace) 100 mg TID PO Last administered on 06/29/18 20:39; Admin Dose 100 MG; Start 06/25/18 at 13:00 Miscellaneous Information 1 ea NOTE XX ; Start 06/25/18 at 11:30 Glucose (Glutose) 15 gm Q15M PRN PO DECREASED GLUCOSE; Start 06/25/18 at 11:30 Glucose (Glutose) 22.5 gm Q15M PRN PO DECREASED GLUCOSE; Start 06/25/18 at 11:30 Dextrose (D50w Syringe) 25 ml Q15M PRN IV DECREASED GLUCOSE; Start 06/25/18 at 11:30 Dextrose (D50w Syringe) 50 ml Q15M PRN IV DECREASED GLUCOSE; Start 06/25/18 at 11:30 Glucagon (Glucagen) 1 mg Q15M PRN IM DECREASED GLUCOSE; Start 06/25/18 at 11:30 Glucose (Glutose) 15 gm Q15M PRN BUCCAL DECREASED GLUCOSE; Start 06/25/18 at 11:30 Heparin Sodium (Porcine) (Heparin (1000 Units/ml)) 7,000 unit PER PROTOCOL PRN IV aPTT<47; Start 06/25/18 at 13:00 Heparin Sodium (Porcine) (Heparin (1000 Units/ml)) 3,500 unit PER PROTOCOL PRN IV aPTT<47-57; Start 06/25/18 at 13:00 Heparin Sodium (Porcine) 250 ml @ 0 mls/hr PER PROTOCOL IV Last administered on 06/29/18at 06:57; Admin Dose 12 MLS/HR; Start 06/25/18 at 13:00 Diagnostic Test (Pha) (Accu-Chek) 1 ea 02 XX Last administered on 06/28/18 02:13; Admin Dose 1 EA; Start 06/26/18 at 02:00 Morphine Sulfate (morphine) 2 mg Q4H PRN IV SEVERE PAIN LEVEL 7-10 Last administered on 06/26/18 22:18; Admin Dose 2 MG; Start 06/26/18 at 10:00 Lorazepam (Ativan) 0.5 mg Q8H PRN IV ANXIETY; Start 06/27/18 at 10:30 Insulin Aspart (Novolog Insulin Pen) NOVOLOG *MILD* ALGORITHM WITH MEALS BEDTIME SC Last administered on 06/29/18 20:52; Admin Dose 3 UNIT; Start 06/28/18 at 07:35 Ondansetron HCl (Zofran Inj) 4 mg Q4H PRN IV NAUSEA AND/OR VOMITING; Start 06/28/18 at 01:30 Epoetin Alejo (Epogen (Neserd)) 6,000 units TuThSa@17 SC Last administered on 06/28/18 17:18; Admin Dose 6,000 UNITS; Start 06/28/18 at 17:00 Clonidine (Catapres) 0.1 mg BID PRN PO SBP > 180; Start 06/28/18 at 14:00 Acetaminophen (Tylenol Tab) 650 mg Q4H PRN PO MILD PAIN(1-3)OR ELEVATED TEMP Last administered on 06/29/18 18:54; Admin Dose 650 MG; Start 06/29/18 at 09:30 Gabapentin (Neurontin) 300 mg HS PO Last administered on 06/29/18 20:41; Admin Dose 300 MG; Start 06/29/18 at 21:00 Pantoprazole (Protonix Tab) 40 mg DAILY@06 PO ; Start 06/30/18 at 06:00 JOSÉ FRANZ MD Jun 29, 2018 21:36
[2018-06-30] VITALS (14 sets, daily range): BP systolic 115–194; BP diastolic 47–81; PULSE 60–80; RESP 18–19
[2018-06-30] MEDS: ACCU-CHEK XX SCH (01:54)
[2018-06-30] MEDS: PANTOPRAZOLE (EC) 40 MG TAB PO SCH (05:18)
[2018-06-30] MEDS: HEPARIN 25000 UNITS/250 ML 250 ML IV SCH ×3 (07:31→19:32)
[2018-06-30] MEDS: INSULIN ASPART [NOVOLOG] 3 ML PEN SC SCH ×4 (07:41→21:00)
--- NOTE | 2018-06-30 07:46 | PN ---
Date/Time of Note Date/Time of Note DATE: 06/30/18 TIME: 07:45 Assessment/Plan Lines/Catheters IV Catheter Type (from Nrsg): Peripheral IV Odonnell in Place (from Nrsg): Yes Assessment/Plan Assessment/Plan Status post thrombectomy left femoral artery She has strong Doppler signals in the posterior tibial and anterior tibial artery Foot is warm Continue anticoagulation Dcussed with the referring physicians Subjective 24 Hr Interval Summary Constitutional: improved Pain Control: mild Exam/Review of Systems Vital Signs Vitals Vital Signs Date Temp Pulse Resp B/P (MAP) Pulse Ox O2 O2 Flow FiO2 Time Delivery Rate 06/30/18 98.4 63 19 139/63 100 Nasal 2.0 07:15 (88) Cannula Intake and Output 06/29/18 06/29/18 06/30/18 1515:00 23:00 07:00 IntakeIntake Total 1030 ml 350 ml OutputOutput Total 1200 ml 1050 ml BalanceBalance -170 ml -700 ml Exam Eyes: nl conjunctiva, EOMI, nl lids, nl sclera ENMT: nl external ears & nose, nl lips & teeth, nl nasal mucosa & septum, mucosa pink and moist Neck: supple, non-tender Respiratory: clear to auscultation, normal air movement Cardiovascular: nl pulses Gastrointestinal: soft, nl liver, spleen, non-tender Results Result Diagram: 06/30/1809 06/30/1809 KELLEY GARY MD Jun 30, 2018 07:46
[2018-06-30] MEDS ORDERED: PENDING SANTYL ORDER FOR WOUND CARE XX PRN (08:00)
[2018-06-30] MEDS: DOCUSATE SODIUM 100 MG CAP PO SCH ×3 (08:58→21:44)
[2018-06-30] MEDS: ASPIRIN (EC) 81 MG TAB PO SCH (08:58)
[2018-06-30] MEDS: ACETAMINOPHEN 325 MG TAB PO PRN ×3 (08:59→23:29)
[2018-06-30] MEDS: AMIODARONE 200 MG TAB PO SCH ×2 (08:59→21:45)
[2018-06-30] MEDS: INSULIN GLARGINE [LANTus] (100 UNITS/ML) SYG SC SCH ×2 (09:15→21:48)
--- NOTE | 2018-06-30 12:22 | CONS ---
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 She is currently on IV heparin. If no plan for any further procedures, could transition to oral anticoagulant. Given her age and renal function, Eliquis 2.5 mg p.o. twice daily would be appropriate -Continue Coreg as tolerated. No VAL inhibitor given acute kidney injury -Continue to hold any nephrotoxic medications, patient being followed by nephrology. Consultation Date/Type/Reason Admit Date/Time Jun 25, 2018 at 06:24 Initial Consult Date 06/25/18 Type of Consult Cardiology Requesting Provider: NUBIA TEJEDA MD Date/Time of Note DATE: 06/30/18 TIME: 12:20 24 HR Interval Summary Free Text/Dictation No shortness of breath, chest pain. Complaining of leg pain at incision site Exam/Review of Systems Vital Signs Vitals Vital Signs Date Temp Pulse Resp B/P (MAP) Pulse Ox O2 O2 Flow FiO2 Time Delivery Rate 06/30/18 98.9 61 19 115/47 97 Nasal 2.0 12:06 (69) Cannula Intake and Output 06/29/18 06/29/18 06/30/18 1515:00 23:00 07:00 IntakeIntake Total 1030 ml 350 ml OutputOutput Total 1200 ml 1050 ml BalanceBalance -170 ml -700 ml Exam Constitutional: alert, oriented (No apparent distress) Head: normocephalic Respiratory: other (Coarse breath sounds bilaterally, no wheezing) Cardiovascular: regular rate and rhythm (S1-S2 heard) Gastrointestinal: soft, non-tender, bowel sounds Extremities: edema (Bandage lower extremity) Labs Result Diagram: 06/30/18 0609 06/30/18 0609 Results 24hrs Laboratory Tests Test 06/29/18 12:25 06/29/18 13:11 06/29/18 17:31 06/29/18 20:38 Bedside Glucose 257 H 205 298 H Activated 80.7 *H 80.8 *H Partial Thromboplast Time Test 06/30/18 01:53 06/30/18 06:09 06/30/18 07:41 06/30/18 11:38 Bedside Glucose 193 111 258 H White Blood Count 9.0 Red Blood Count 3.23 L Hemoglobin 9.3 #L Hematocrit 29.2 L Mean Corpuscular 90.4 Volume Mean Corpuscular 28.8 L Hemoglobin Mean Corpuscular 31.8 L Hemoglobin Concent Red Cell 13.2 Distribution Width Platelet Count 192 Mean Platelet Volume 11.8 H Immature 0.300 Granulocytes % Neutrophils % 65.8 Lymphocytes % 18.3 Monocytes % 11.6 H Eosinophils % 3.7 Basophils % 0.3 Nucleated Red Blood 0.0 Cells % Immature 0.030 Granulocytes # Neutrophils # 5.9 Lymphocytes # 1.7 Monocytes # 1.1 H Eosinophils # 0.3 Basophils # 0.0 Nucleated Red Blood 0.0 Cells # Activated 69.2 H Partial Thromboplast Time Sodium Level 140 Potassium Level 4.8 Chloride Level 107 Carbon Dioxide Level 28 Anion Gap 5 Blood Urea Nitrogen 40 H Creatinine 2.12 H Est Glomerular Filtrat Rate mL/min Glucose Level 101 Calcium Level 9.3 B-Type Natriuretic 2520 H Peptide Medications Medications Current Medications Insulin Glargine (Lantus) 30 units BID SC Last administered on 06/30/18 09:15; Admin Dose 30 UNITS; Start 06/25/18 at 11:30 Amiodarone HCl (Cordarone) 200 mg BID PO Last administered on 06/30/18 08:59; Admin Dose 200 MG; Start 06/25/18 at 11:30 Aspirin (Halfprin) 81 mg DAILY PO Last administered on 06/30/18 08:58; Admin Dose 81 MG; Start 06/25/18 at 11:30 Atorvastatin Calcium (Lipitor) 40 mg QHS PO Last administered on 06/29/18 20:41; Admin Dose 40 MG; Start 06/25/18 at 21:00 Carvedilol (Coreg) 3.125 mg BID PO Last administered on 06/30/18 08:59; Admin Dose 3.125 MG; Start 06/25/18 at 11:30 Docusate Sodium (Colace) 100 mg TID PO Last administered on 06/30/18 08:58; Admin Dose 100 MG; Start 06/25/18 at 13:00 Miscellaneous Information 1 ea NOTE XX ; Start 06/25/18 at 11:30 Glucose (Glutose) 15 gm Q15M PRN PO DECREASED GLUCOSE; Start 06/25/18 at 11:30 Glucose (Glutose) 22.5 gm Q15M PRN PO DECREASED GLUCOSE; Start 06/25/18 at 11:30 Dextrose (D50w Syringe) 25 ml Q15M PRN IV DECREASED GLUCOSE; Start 06/25/18 at 11:30 Dextrose (D50w Syringe) 50 ml Q15M PRN IV DECREASED GLUCOSE; Start 06/25/18 at 11:30 Glucagon (Glucagen) 1 mg Q15M PRN IM DECREASED GLUCOSE; Start 06/25/18 at 11:30 Glucose (Glutose) 15 gm Q15M PRN BUCCAL DECREASED GLUCOSE; Start 06/25/18 at 11:30 Heparin Sodium (Porcine) (Heparin (1000 Units/ml)) 7,000 unit PER PROTOCOL PRN IV aPTT<47; Start 06/25/18 at 13:00 Heparin Sodium (Porcine) (Heparin (1000 Units/ml)) 3,500 unit PER PROTOCOL PRN IV aPTT<47-57; Start 06/25/18 at 13:00 Heparin Sodium (Porcine) 250 ml @ 0 mls/hr PER PROTOCOL IV Last administered on 06/30/18at 07:31; Admin Dose 12 MLS/HR; Start 06/25/18 at 13:00 Diagnostic Test (Pha) (Accu-Chek) 1 ea 02 XX Last administered on 06/28/18at 02:13; Admin Dose 1 EA; Start 06/26/18 at 02:00 Morphine Sulfate (morphine) 2 mg Q4H PRN IV SEVERE PAIN LEVEL 7-10 Last administered on 06/26/18at 22:18; Admin Dose 2 MG; Start 06/26/18 at 10:00 Lorazepam (Ativan) 0.5 mg Q8H PRN IV ANXIETY; Start 06/27/18 at 10:30 Insulin Aspart (Novolog Insulin Pen) NOVOLOG *MILD* ALGORITHM WITH MEALS BEDTIME SC Last administered on 06/29/18at 20:52; Admin Dose 3 UNIT; Start 06/28/18 at 07:35 Ondansetron HCl (Zofran Inj) 4 mg Q4H PRN IV NAUSEA AND/OR VOMITING; Start 06/28/18 at 01:30 Epoetin Alejo (Epogen (Neserd)) 6,000 units TuThSa@17 SC Last administered on 06/28/18at 17:18; Admin Dose 6,000 UNITS; Start 06/28/18 at 17:00 Clonidine (Catapres) 0.1 mg BID PRN PO SBP > 180 Last administered on 06/30/18at 04:57; Admin Dose 0.1 MG; Start 06/28/18 at 14:00 Acetaminophen (Tylenol Tab) 650 mg Q4H PRN PO MILD PAIN(1-3)OR ELEVATED TEMP Last administered on 06/30/18at 08:59; Admin Dose 650 MG; Start 06/29/18 at 09:30 Gabapentin (Neurontin) 300 mg HS PO Last administered on 06/29/18at 20:41; Admin Dose 300 MG; Start 06/29/18 at 21:00 Pantoprazole (Protonix Tab) 40 mg DAILY@06 PO Last administered on 06/30/18at 05:18; Admin Dose 40 MG; Start 06/30/18 at 06:00 Miscellaneous [facility] This patient green... PRN PRN XX WOUND CARE; Start 06/30/18 at 08:00 Alex Chávez DO Jun 30, 2018 12:22
--- NOTE | 2018-06-30 14:20 | PN ---
DATE: 06/30/2018 An 82-year-old female who was brought in with acute pain of the lower extremities and thrombosis of t he femoral artery with very poor circulation to the lower extremity. Patient has past medical histor y of atrial fibrillation, coronary artery disease, type 2 diabetes mellitus, osteoarthritis, gastroes ophageal reflux disease and a history of kidney tumor. Patient was brought in with cold left lower e xtremity. She was started initially right away on anticoagulation and admitted for further evaluatio n and treatment. Today is postop day 3 after a femoral artery thrombectomy by Dr. Dawson. Pulses are much better. Leg is warmer, doing much better. She is still on anticoagulation and the pain is tolerated better but according to her, she has mostly burning sensation of the lower extremities, mo st probably secondary to her diabetic neuropathy, so patient today slept better yesterday, pain was t olerated much better. OBJECTIVE VITAL SIGNS: Blood pressure is 139/63, heart rate is 63, respiratory rate 18. She is afebrile and s aturating 100% on nasal cannula of 2 liters. REVIEW OF SYSTEMS: She denies of any headaches, just had difficulty sleeping. Denies any chest pain , denies of any abdominal pain, nausea, vomiting. Denies any cough, sputum production. Denies of an y hesitancy, urgency or pain during urination. PHYSICAL EXAMINATION: VITAL SIGNS: As mentioned above. HEENT: Atraumatic, normocephalic. CHEST: AP contour within normal limits. Breasts and nipples are normal, no nipple retraction. HEART: Afib, controlled rate, and cardiomegaly. LUNGS: Very mild expiratory crackles over the bases of the lungs, otherwise negative. ABDOMEN: Soft, positive bowel sounds, no hepatosplenomegaly, no masses palpable over the abdomen and no rebound tenderness. EXTREMITIES: No edema of the legs. Warm. Pulses are decreased, but palpable. LABORATORY DATA: Today CBC: White blood cells 9.0, hemoglobin 9.3, hematocrit 29.2, and platelet co unt is 192. Chemistry: Sodium 140, potassium 4.8, BUN is 40, creatinine 4.12, much better than yest erday after the dye, and blood sugar is better controlled coagulation PTT is 69.2. ASSESSMENT AND PLAN: The patient will continue anticoagulation and possibly will discharge home danny rrow on Eliquis for safer purposes, but still needs anticoagulation and close monitoring. H and H green d dropped yesterday, but today is stable after blood transfusion. The patient is doing fine. We manjinder l continue her treatment. We will continue her treatment with anticoagulation and hydrating for impr ovement of renal function and possibly will be discharged tomorrow. Dictated By: NUBIA TEJEDA MD SB/NTS Conf#: [id number] DID#: [id number] CC: ERNESTO MCGARRY MD;*EndCC*
[2018-06-30] MEDS: GABAPENTIN 300 MG CAP PO SCH (21:46)
[2018-06-30] MEDS: ATORVASTATIN 40 MG TAB PO SCH (21:46)
--- NOTE | 2018-06-30 23:44 | CONS ---
Assessment/Plan Assessment/Plan Hospital Course (Demo Recall) History of renal carcinoma status post nephrectomy focally prominent 2.7 cm soft tissue lobulation in the inferior left renal lower pole adjacent to surgical clips, possibly reflecting postsurgical change or recurrent neoplasm. Enhancing lobulated mass in the lower pole left kidney with no extension into the left renal vein. PET/CT OUTPT CT AP- REVIEWED can not give contrast PT REFUSED MRI LDH- NOTED F-UP OUTPT echocardiogram- echogenic structure in the right atrium, as well as attached to the tricuspid valve as well as the IVC. Differential includes vegetation, malignancy or thrombus. The IVC is focally distended at the inferior cavoatrial junction, containing an 8 mm metallic focus which may lie within intravenous tumor mass. Evaluation is quite limited in the absence of intravenous contrast. 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 Coarse calcifications in the left breast parenchyma, most likely benign. diagnostic mammography as outpt Acute congestive heart failure exacerbation. Acute sepsis, possible urinary tract infection. Elevated lactate levels. Type 2 diabetes mellitus, uncontrolled. Hyperglycemia. Diabetic neuropathy. Gastroesophageal reflux disease. Possible transient ischemic attacks. Hypertension, uncontrolled Renal failure with creatinine of 3.95 INTERMITTENT atrial fibrillation Consultation Date/Type/Reason Admit Date/Time Jun 25, 2018 at 06:24 Initial Consult Date 06/26/18 Type of Consult [facility] Requesting Provider: NUBIA TEJEDA MD Date/Time of Note DATE: 06/30/18 TIME: 23:44 24 HR Interval Summary Free Text/Dictation nad le- warm Exam/Review of Systems Exam Vitals Vital Signs Date Temp Pulse Resp B/P (MAP) Pulse Ox O2 O2 Flow FiO2 Time Delivery Rate 06/30/18 60 20:25 06/30/18 98.8 18 140/70 96 20:11 (93) 06/30/18 2.0 17:43 06/30/18 Nasal 15:34 Cannula Intake and Output 06/29/18 06/29/18 06/30/18 1515:00 23:00 07:00 IntakeIntake Total 1030 ml 350 ml OutputOutput Total 1200 ml 1050 ml BalanceBalance -170 ml -700 ml Exam Constitutional: alert, oriented Psych: no complaints Neck: supple Respiratory: crackles/rales Cardiovascular: regular rate and rhythm, systolic murmur Gastrointestinal: soft EXT- + PS Results Result Diagram: 06/30/18 0609 06/30/18 0609 Results 24hrs Laboratory Tests Test 06/30/18 01:53 06/30/18 06:09 06/30/18 07:41 06/30/18 11:38 Bedside Glucose 193 111 258 H White Blood Count 9.0 Red Blood Count 3.23 L Hemoglobin 9.3 #L Hematocrit 29.2 L Mean Corpuscular Volume 90.4 Mean Corpuscular 28.8 L Hemoglobin Mean Corpuscular 31.8 L Hemoglobin Concent Red Cell Distribution 13.2 Width Platelet Count 192 Mean Platelet Volume 11.8 H Immature Granulocytes % 0.300 Neutrophils % 65.8 Lymphocytes % 18.3 Monocytes % 11.6 H Eosinophils % 3.7 Basophils % 0.3 Nucleated Red Blood 0.0 Cells % Immature Granulocytes # 0.030 Neutrophils # 5.9 Lymphocytes # 1.7 Monocytes # 1.1 H Eosinophils # 0.3 Basophils # 0.0 Nucleated Red Blood 0.0 Cells # Activated 69.2 H Partial Thromboplast Time Sodium Level 140 Potassium Level 4.8 Chloride Level 107 Carbon Dioxide Level 28 Anion Gap 5 Blood Urea Nitrogen 40 H Creatinine 2.12 H Est Glomerular Filtrat Rate mL/min Glucose Level 101 Calcium Level 9.3 B-Type Natriuretic 2520 H Peptide Test 06/30/18 11:45 06/30/18 17:21 06/30/18 18:35 06/30/18 21:20 Activated 103.4 *H 88.7 *H Partial Thromboplast Time Bedside Glucose 275 H 274 H Medications Medication Current Medications Insulin Glargine (Lantus) 30 units BID SC Last administered on 06/30/18at 21:48; Admin Dose 30 UNITS; Start 06/25/18 at 11:30 Amiodarone HCl (Cordarone) 200 mg BID PO Last administered on 06/30/18at 21:45; Admin Dose 200 MG; Start 06/25/18 at 11:30 Aspirin (Halfprin) 81 mg DAILY PO Last administered on 06/30/18at 08:58; Admin Dose 81 MG; Start 06/25/18 at 11:30 Atorvastatin Calcium (Lipitor) 40 mg QHS PO Last administered on 06/30/18at 21:46; Admin Dose 40 MG; Start 06/25/18 at 21:00 Carvedilol (Coreg) 3.125 mg BID PO Last administered on 06/30/18at 21:46; Admin Dose 3.125 MG; Start 06/25/18 at 11:30 Docusate Sodium (Colace) 100 mg TID PO Last administered on 06/30/18at 21:44; Admin Dose 100 MG; Start 06/25/18 at 13:00 Miscellaneous Information 1 ea NOTE XX ; Start 06/25/18 at 11:30 Glucose (Glutose) 15 gm Q15M PRN PO DECREASED GLUCOSE; Start 06/25/18 at 11:30 Glucose (Glutose) 22.5 gm Q15M PRN PO DECREASED GLUCOSE; Start 06/25/18 at 11:30 Dextrose (D50w Syringe) 25 ml Q15M PRN IV DECREASED GLUCOSE; Start 06/25/18 at 11:30 Dextrose (D50w Syringe) 50 ml Q15M PRN IV DECREASED GLUCOSE; Start 06/25/18 at 11:30 Glucagon (Glucagen) 1 mg Q15M PRN IM DECREASED GLUCOSE; Start 06/25/18 at 11:30 Glucose (Glutose) 15 gm Q15M PRN BUCCAL DECREASED GLUCOSE; Start 06/25/18 at 11:30 Heparin Sodium (Porcine) (Heparin (1000 Units/ml)) 7,000 unit PER PROTOCOL PRN IV aPTT<47; Start 06/25/18 at 13:00 Heparin Sodium (Porcine) (Heparin (1000 Units/ml)) 3,500 unit PER PROTOCOL PRN IV aPTT<47-57; Start 06/25/18 at 13:00 Heparin Sodium (Porcine) 250 ml @ 0 mls/hr PER PROTOCOL IV Last administered on 06/30/18at 19:32; Admin Dose 11.5 MLS/HR; Start 06/25/18 at 13:00 Diagnostic Test (Pha) (Accu-Chek) 1 ea 02 XX Last administered on 06/28/18at 02:13; Admin Dose 1 EA; Start 06/26/18 at 02:00 Morphine Sulfate (morphine) 2 mg Q4H PRN IV SEVERE PAIN LEVEL 7-10 Last administered on 06/26/18at 22:18; Admin Dose 2 MG; Start 06/26/18 at 10:00 Lorazepam (Ativan) 0.5 mg Q8H PRN IV ANXIETY; Start 06/27/18 at 10:30 Insulin Aspart (Novolog Insulin Pen) NOVOLOG *MILD* ALGORITHM WITH MEALS BEDTI ME SC Last administered on 06/30/18 18:02; Admin Dose 4 UNIT; Start 06/28/18 at 07:35 Ondansetron HCl (Zofran Inj) 4 mg Q4H PRN IV NAUSEA AND/OR VOMITING; Start 06/28/18 at 01:30 Epoetin Alejo (Epogen (Neserd)) 6,000 units TuThSa@17 SC Last administered on 06/28/18 17:18; Admin Dose 6,000 UNITS; Start 06/28/18 at 17:00 Clonidine (Catapres) 0.1 mg BID PRN PO SBP > 180 Last administered on 06/30/18at 23:33; Admin Dose 0.1 MG; Start 06/28/18 at 14:00 Acetaminophen (Tylenol Tab) 650 mg Q4H PRN PO MILD PAIN(1-3)OR ELEVATED TEMP Last administered on 06/30/18 23:29; Admin Dose 650 MG; Start 06/29/18 at 09:30 Gabapentin (Neurontin) 300 mg HS PO Last administered on 06/30/18at 21:46; Admin Dose 300 MG; Start 06/29/18 at 21:00 Pantoprazole (Protonix Tab) 40 mg DAILY@06 PO Last administered on 06/30/18at 05:18; Admin Dose 40 MG; Start 06/30/18 at 06:00 Miscellaneous Information (Pending [facility] Order For Wound Care) This patient green... PRN PRN XX WOUND CARE; Start 06/30/18 at 08:00 JOSÉ FRANZ MD Jun 30, 2018 23:44
[2018-07-01] VITALS (11 sets, daily range): BP systolic 138–167; BP diastolic 64–73; PULSE 69–84; RESP 18–19
[2018-07-01] MEDS: ACCU-CHEK XX SCH (02:00)
[2018-07-01] MEDS: PANTOPRAZOLE (EC) 40 MG TAB PO SCH (06:42)
[2018-07-01] MEDS: INSULIN ASPART [NOVOLOG] 3 ML PEN SC SCH ×4 (08:02→22:05)
[2018-07-01] MEDS: ASPIRIN (EC) 81 MG TAB PO SCH (08:13)
[2018-07-01] MEDS: AMIODARONE 200 MG TAB PO SCH ×2 (08:13→21:55)
[2018-07-01] MEDS: DOCUSATE SODIUM 100 MG CAP PO SCH ×3 (08:13→21:54)
[2018-07-01] MEDS: INSULIN GLARGINE [LANTus] (100 UNITS/ML) SYG SC SCH ×2 (08:42→21:57)
[2018-07-01] MEDS: ACETAMINOPHEN 325 MG TAB PO PRN (11:20)
--- NOTE | 2018-07-01 12:09 | CONS ---
Assessment/Plan Assessment/Plan Assessment/Plan (Daily) - Acute Kidney Injury - Chronic Kidney Disease - DM / DM Nephropathy - Hyperkalemia - CAD / Post CABG - Hx of NSAID use - PVD / Ischemia - CAD / CHF - Anaemia - Hypertension / HTN Nephrosclerosis - High Cholesterol PLAN: - Poorly controlled DM with latest HgA1c > 10% & a long hx of NSAIDs use - BRANDON / CKD secondary to above with severe PVD / HTN Nephrosclerosis - Most probably require intervention which requires IV contrast & high risk Contrast Nephropathy at this point - At this point she is off all Nephrotoxic agents - Continue with Gentle hydration - Watch for sign of volume overload - Check: * URIC ACID * FENa * Urine Eosinophilia * Serial Creatinine check - Recovering BRANDON - Tolerated procedure well ( post Thrombectomy ) - Dropping H/H - Check IRON status - Start EPOGEN - Electrolytes stable - Slight increase in creatinine today - Avoid negative balance - Monitor H/H - On EPO - May need Blood transfusion - Stable CKD / BRANDON with improved creatinine - Monitor potassium closely - WBC increasing ? - Follow up with Culture results - H/H stable - On EPOGEN Consultation Date/Type/Reason Admit Date/Time Jun 25, 2018 at 06:24 Initial Consult Date 06/26/18 Type of Consult - Nephrology Requesting Provider: NUBIA TEJEDA MD Date/Time of Note DATE: 07/01/18 TIME: 12:07 24 HR Interval Summary Constitutional: no complaints, improved Exam/Review of Systems Exam Vitals Vital Signs Date Temp Pulse Resp B/P (MAP) Pulse Ox O2 O2 Flow FiO2 Time Delivery Rate 07/01/18 98.2 73 19 164/73 96 11:39 (103) 07/01/18 Nasal 2.0 07:55 Cannula Intake and Output 06/30/18 06/30/18 07/01/18 1414:59 22:59 06:59 IntakeIntake Total 641 ml 300 ml OutputOutput Total 700 ml 2500 ml BalanceBalance -59 ml -2200 ml Constitutional: alert Psych: no complaints Respiratory: crackles/rales Cardiovascular: regular rate and rhythm, edema, systolic murmur Gastrointestinal: soft Results Result Diagram: 07/01/18 0813 07/01/18 0813 Results 24hrs Laboratory Tests Test 06/30/18 17:21 06/30/18 18:35 06/30/18 21:20 07/01/18 01:25 Bedside Glucose 275 H 274 H Activated 88.7 *H 98.8 *H Partial Thromboplas t Time Test 07/01/18 02:57 07/01/18 07:44 07/01/18 07:53 07/01/18 08:13 Bedside Glucose 199 142 Lab Scanned Report BLOOD TRANSFUSION White Blood Count 12.2 #H Red Blood Count 3.20 L Hemoglobin 9.1 L Hematocrit 29.0 L Mean Corpuscular 90.6 Volume Mean Corpuscular 28.4 L Hemoglobin Mean Corpuscular 31.4 L Hemoglobin Concent Red Cell 13.3 Distribution Width Platelet Count 228 Mean Platelet 11.9 H Volume Immature 0.400 Granulocytes % Neutrophils % 72.2 Lymphocytes % 14.7 L Monocytes % 9.9 Eosinophils % 2.5 Basophils % 0.3 Nucleated Red Blood 0.0 Cells % Immature 0.050 H Granulocytes # Neutrophils # 8.8 H Lymphocytes # 1.8 Monocytes # 1.2 H Eosinophils # 0.3 Basophils # 0.0 Nucleated Red Blood 0.0 Cells # Activated 77.9 *H Partial Thromboplas t Time Sodium Level 138 Potassium Level 5.2 H Chloride Level 102 Carbon Dioxide 28 Level Anion Gap 8 Blood Urea Nitrogen 41 H Creatinine 1.83 H Est Glomerular Filtrat Rate mL/min Glucose Level 128 Calcium Level 9.2 B-Type Natriuretic 2500 H Peptide Test 07/01/18 11:51 Bedside Glucose 202 Medications Medication Current Medications Insulin Glargine (Lantus) 30 units BID SC Last administered on 07/01/18 08:42; Admin Dose 30 UNITS; Start 06/25/18 at 11:30 Amiodarone HCl (Cordarone) 200 mg BID PO Last administered on 07/01/18 08:13; Admin Dose 200 MG; Start 06/25/18 at 11:30 Aspirin (Halfprin) 81 mg DAILY PO Last administered on 07/01/18 08:13; Admin Dose 81 MG; Start 06/25/18 at 11:30 Atorvastatin Calcium (Lipitor) 40 mg QHS PO Last administered on 06/30/18 21:46; Admin Dose 40 MG; Start 06/25/18 at 21:00 Carvedilol (Coreg) 3.125 mg BID PO Last administered on 07/01/18 08:13; Admin Dose 3.125 MG; Start 06/25/18 at 11:30 Docusate Sodium (Colace) 100 mg TID PO Last administered on 07/01/18 12:02; Admin Dose 100 MG; Start 06/25/18 at 13:00 Miscellaneous Information 1 ea NOTE XX ; Start 06/25/18 at 11:30 Glucose (Glutose) 15 gm Q15M PRN PO DECREASED GLUCOSE; Start 06/25/18 at 11:30 Glucose (Glutose) 22.5 gm Q15M PRN PO DECREASED GLUCOSE; Start 06/25/18 at 11:30 Dextrose (D50w Syringe) 25 ml Q15M PRN IV DECREASED GLUCOSE; Start 06/25/18 at 11:30 Dextrose (D50w Syringe) 50 ml Q15M PRN IV DECREASED GLUCOSE; Start 06/25/18 at 11:30 Glucagon (Glucagen) 1 mg Q15M PRN IM DECREASED GLUCOSE; Start 06/25/18 at 11:30 Glucose (Glutose) 15 gm Q15M PRN BUCCAL DECREASED GLUCOSE; Start 06/25/18 at 11:30 Diagnostic Test (Pha) (Accu-Chek) 1 ea 02 XX Last administered on 07/01/18 02:00; Admin Dose 1 EA; Start 06/26/18 at 02:00 Morphine Sulfate (morphine) 2 mg Q4H PRN IV SEVERE PAIN LEVEL 7-10 Last administered on 06/26/18 22:18; Admin Dose 2 MG; Start 06/26/18 at 10:00 Lorazepam (Ativan) 0.5 mg Q8H PRN IV ANXIETY; Start 06/27/18 at 10:30 Insulin Aspart (Novolog Insulin Pen) NOVOLOG *MILD* ALGORITHM WITH MEALS BEDTIME SC Last administered on 07/01/18 11:55; Admin Dose 2 UNIT; Start 06/28/18 at 07:35 Ondansetron HCl (Zofran Inj) 4 mg Q4H PRN IV NAUSEA AND/OR VOMITING; Start 06/28/18 at 01:30 Epoetin Alejo (Epogen (Neserd)) 6,000 units TuThSa@17 SC Last administered on 06/28/18 17:18; Admin Dose 6,000 UNITS; Start 06/28/18 at 17:00 Clonidine (Catapres) 0.1 mg BID PRN PO SBP > 180 Last administered on 06/30/18 23:33; Admin Dose 0.1 MG; Start 06/28/18 at 14:00 Acetaminophen (Tylenol Tab) 650 mg Q4H PRN PO MILD PAIN(1-3)OR ELEVATED TEMP Last administered on 07/01/18 11:20; Admin Dose 650 MG; Start 06/29/18 at 09:30 Gabapentin (Neurontin) 300 mg HS PO Last administered on 06/30/18at 21:46; Admin Dose 300 MG; Start 06/29/18 at 21:00 Pantoprazole (Protonix Tab) 40 mg DAILY@06 PO Last administered on 07/01/18 06:42; Admin Dose 40 MG; Start 06/30/18 at 06:00 Miscellaneous Information (Pending [facility]yl Order For Wound Care) This patient green... PRN PRN XX WOUND CARE; Start 06/30/18 at 08:00 FRANCISCO MARISCAL MD Jul 01, 2018 12:09
--- NOTE | 2018-07-01 13:05 | PN ---
Date/Time of Note Date/Time of Note DATE: 07/01/18 TIME: 13:04 Assessment/Plan Lines/Catheters IV Catheter Type (from Nrsg): Saline Lock Odonnell in Place (from Nrsg): Yes Assessment/Plan Assessment/Plan Status post thrombectomy left femoral artery She has strong Doppler signals in the posterior tibial and anterior tibial artery Foot is warm Continue anticoagulation DC planning Discussed with the referring physicians Subjective 24 Hr Interval Summary Constitutional: improved Pain Control: mild Exam/Review of Systems Vital Signs Vitals Vital Signs Date Temp Pulse Resp B/P (MAP) Pulse Ox O2 O2 Flow FiO2 Time Delivery Rate 07/01/18 75 12:01 07/01/18 98.2 19 164/73 96 11:39 (103) 07/01/18 Nasal 2.0 07:55 Cannula Intake and Output 06/30/18 06/30/18 07/01/18 1515:00 23:00 07:00 IntakeIntake Total 641 ml 300 ml OutputOutput Total 700 ml 2500 ml BalanceBalance -59 ml -2200 ml Exam Eyes: nl conjunctiva, EOMI, nl lids, nl sclera ENMT: nl external ears & nose, nl lips & teeth, nl nasal mucosa & septum, mucosa pink and moist Neck: supple, non-tender Respiratory: clear to auscultation, normal air movement Cardiovascular: regular rate and rhythm, nl pulses Gastrointestinal: soft, nl liver, spleen, non-tender Musculoskeletal: nl extremities to inspection, nl gait and stance Extremities: normal pulses Results Result Diagram: 07/01/18 0813 07/01/18 0813 KELLEY GARY MD Jul 01, 2018 13:05
[2018-07-01] MEDS: HEPARIN 25000 UNITS/250 ML 250 ML IV SCH ×2 (14:42→16:00)
[2018-07-01] MEDS ORDERED: LORAZEPAM 0.5 MG TAB PO PRN (16:30)
[2018-07-01] MEDS ORDERED: morphine LIQ (10 MG/5 ML) CUP PO PRN (16:30)
[2018-07-01] MEDS ORDERED: EPOETIN ALFA-EPBX (NON-ESRD) 3,000 UNIT/ML VIAL SC SCH (17:00)
[2018-07-01] MEDS: EPOETIN ALFA-EPBX (NON-ESRD) 3,000 UNIT/ML VIAL SC SCH (18:00)
--- NOTE | 2018-07-01 21:38 | CONS ---
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 She is currently on IV heparin. If no plan for any further procedures, could transition to oral anticoagulant. Given her age and renal function, Eliquis 2.5 mg p.o. twice daily would be appropriate -Continue Coreg as tolerated. No VAL inhibitor given acute kidney injury -Continue to hold any nephrotoxic medications, patient being followed by nephrology. Consultation Date/Type/Reason Admit Date/Time Jun 25, 2018 at 06:24 Initial Consult Date 06/25/18 Type of Consult Cardiology Requesting Provider: NUBIA TEJEDA MD Date/Time of Note DATE: 07/01/18 TIME: 21:37 24 HR Interval Summary Free Text/Dictation no sob, cp Exam/Review of Systems Vital Signs Vitals Vital Signs Date Temp Pulse Resp B/P (MAP) Pulse Ox O2 O2 Flow FiO2 Time Delivery Rate 07/01/18 80 20:36 07/01/18 99.0 18 155/72 94 Room Air 20:00 (99) 07/01/18 2.0 07:55 Intake and Output 06/30/18 06/30/18 07/01/18 1414:59 22:59 06:59 IntakeIntake Total 641 ml 300 ml OutputOutput Total 700 ml 2500 ml BalanceBalance -59 ml -2200 ml Exam Constitutional: alert, oriented (nad) Head: normocephalic Respiratory: other (course bs, no wheeze) Cardiovascular: regular rate and rhythm (s1s2) Gastrointestinal: soft, non-tender, bowel sounds Extremities: edema Labs Result Diagram: 07/01/18 0813 07/01/18 0813 Results 24hrs Laboratory Tests Test 07/01/18 01:25 07/01/18 02:57 07/01/18 07:44 07/01/18 07:53 Activated 98.8 *H Partial Thromboplas t Time Bedside Glucose 199 142 Lab Scanned Report BLOOD TRANSFUSION Test 07/01/18 08:13 07/01/18 11:51 07/01/18 14:30 07/01/18 17:08 White Blood Count 12.2 #H Red Blood Count 3.20 L Hemoglobin 9.1 L Hematocrit 29.0 L Mean Corpuscular 90.6 Volume Mean Corpuscular 28.4 L Hemoglobin Mean Corpuscular 31.4 L Hemoglobin Concent Red Cell 13.3 Distribution Width Platelet Count 228 Mean Platelet 11.9 H Volume Immature 0.400 Granulocytes % Neutrophils % 72.2 Lymphocytes % 14.7 L Monocytes % 9.9 Eosinophils % 2.5 Basophils % 0.3 Nucleated Red Blood 0.0 Cells % Immature 0.050 H Granulocytes # Neutrophils # 8.8 H Lymphocytes # 1.8 Monocytes # 1.2 H Eosinophils # 0.3 Basophils # 0.0 Nucleated Red Blood 0.0 Cells # Activated 77.9 *H 28.9 Partial Thromboplas t Time Sodium Level 138 Potassium Level 5.2 H Chloride Level 102 Carbon Dioxide 28 Level Anion Gap 8 Blood Urea Nitrogen 41 H Creatinine 1.83 H Est Glomerular Filtrat Rate mL/min Glucose Level 128 Calcium Level 9.2 B-Type Natriuretic 2500 H Peptide Bedside Glucose 202 259 H Test 07/01/18 20:22 Bedside Glucose 349 H Medications Medications Current Medications Amiodarone HCl (Cordarone) 200 mg BID PO Last administered on 07/01/18 08:13; Admin Dose 200 MG; Start 06/25/18 at 11:30 Aspirin (Halfprin) 81 mg DAILY PO Last administered on 07/01/18 08:13; Admin Dose 81 MG; Start 06/25/18 at 11:30 Atorvastatin Calcium (Lipitor) 40 mg QHS PO Last administered on 06/30/18 21:46; Admin Dose 40 MG; Start 06/25/18 at 21:00 Carvedilol (Coreg) 3.125 mg BID PO Last administered on 07/01/18 08:13; Admin Dose 3.125 MG; Start 06/25/18 at 11:30 Docusate Sodium (Colace) 100 mg TID PO Last administered on 07/01/18 12:02; Admin Dose 100 MG; Start 06/25/18 at 13:00 Miscellaneous Information 1 ea NOTE XX ; Start 06/25/18 at 11:30 Glucose (Glutose) 15 gm Q15M PRN PO DECREASED GLUCOSE; Start 06/25/18 at 11:30 Glucose (Glutose) 22.5 gm Q15M PRN PO DECREASED GLUCOSE; Start 06/25/18 at 11:30 Dextrose (D50w Syringe) 25 ml Q15M PRN IV DECREASED GLUCOSE; Start 06/25/18 at 11:30 Dextrose (D50w Syringe) 50 ml Q15M PRN IV DECREASED GLUCOSE; Start 06/25/18 at 11:30 Glucagon (Glucagen) 1 mg Q15M PRN IM DECREASED GLUCOSE; Start 06/25/18 at 11:30 Glucose (Glutose) 15 gm Q15M PRN BUCCAL DECREASED GLUCOSE; Start 06/25/18 at 11:30 Heparin Sodium (Porcine) (Heparin (1000 Units/ml)) 7,000 unit PER PROTOCOL PRN IV aPTT<47 Last administered on 07/01/18at 16:00; Admin Dose 7,000 UNIT; Start 06/25/18 at 13:00 Heparin Sodium (Porcine) (Heparin (1000 Units/ml)) 3,500 unit PER PROTOCOL PRN IV aPTT<47-57; Start 06/25/18 at 13:00 Diagnostic Test (Pha) (Accu-Chek) 1 ea 02 XX Last administered on 07/01/18at 02:00; Admin Dose 1 EA; Start 06/26/18 at 02:00 Ondansetron HCl (Zofran Inj) 4 mg Q4H PRN IV NAUSEA AND/OR VOMITING; Start 06/28/18 at 01:30 Clonidine (Catapres) 0.1 mg BID PRN PO SBP > 180 Last administered on 06/30/18at 23:33; Admin Dose 0.1 MG; Start 06/28/18 at 14:00 Acetaminophen (Tylenol Tab) 650 mg Q4H PRN PO MILD PAIN(1-3)OR ELEVATED TEMP Last administered on 07/01/18at 11:20; Admin Dose 650 MG; Start 06/29/18 at 09:30 Gabapentin (Neurontin) 300 mg HS PO Last administered on 06/30/18at 21:46; Admin Dose 300 MG; Start 06/29/18 at 21:00 Pantoprazole (Protonix Tab) 40 mg DAILY@06 PO Last administered on 07/01/18at 06:42; Admin Dose 40 MG; Start 06/30/18 at 06:00 Miscellaneous Information (Pending Santyl Order For Wound Care) This patient green... PRN PRN XX WOUND CARE; Start 06/30/18 at 08:00 Heparin Sodium (Porcine) 250 ml @ 11.5 mls/hr PER PROTOCOL IV Last administered on 07/01/18at 16:00; Admin Dose 13 MLS/HR; Start 07/01/18 at 14:30 Collagenase (Santyl) 1 applic DAILY TOP ; Start 07/02/18 at 09:00 Epoetin Alejo-epbx (Retacrit) 6,000 unit TuThSa@1700 SC Last administered on 07/01/18at 18:00; Admin Dose 6,000 UNIT; Start 07/01/18 at 17:00 Lorazepam (Ativan) 0.5 mg Q8H PRN PO ANXIETY; Start 07/01/18 at 16:30 Morphine Sulfate (morphine) 6 mg Q4H PRN PO SEVERE PAIN LEVEL 7-10; Start 07/01/18 at 16:30 Insulin Glargine (Lantus) 40 units BID SC ; Start 07/01/18 at 21:00 Insulin Aspart (Novolog Insulin Pen) NOVOLOG *MODERATE* ALGORITHM WITH MEALS B EDTIME SC ; Start 07/01/18 at 21:00 Alex Chávez DO Jul 01, 2018 21:38
[2018-07-01] MEDS: ATORVASTATIN 40 MG TAB PO SCH (21:54)
[2018-07-01] MEDS: GABAPENTIN 300 MG CAP PO SCH (21:55)
--- NOTE | 2018-07-01 22:11 | CONS ---
Assessment/Plan Assessment/Plan Hospital Course (Demo Recall) History of renal carcinoma status post nephrectomy focally prominent 2.7 cm soft tissue lobulation in the inferior left renal lower pole adjacent to surgical clips, possibly reflecting postsurgical change or recurrent neoplasm. Enhancing lobulated mass in the lower pole left kidney with no extension into the left renal vein. PET/CT OUTPT CT AP- REVIEWED can not give contrast PT REFUSED MRI [facility]- NOTED F-UP OUTPT echocardiogram- echogenic structure in the right atrium, as well as attached to the tricuspid valve as well as the IVC. Differential includes vegetation, malignancy or thrombus. The IVC is focally distended at the inferior cavoatrial junction, containing an 8 mm metallic focus which may lie within intravenous tumor mass. Evaluation is quite limited in the absence of intravenous contrast. 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 Coarse calcifications in the left breast parenchyma, most likely benign. diagnostic mammography as outpt Acute congestive heart failure exacerbation. Acute sepsis, possible urinary tract infection. Elevated lactate levels. Type 2 diabetes mellitus, uncontrolled. Hyperglycemia. Diabetic neuropathy. Gastroesophageal reflux disease. Possible transient ischemic attacks. Hypertension, uncontrolled Renal failure with creatinine of 3.95 INTERMITTENT atrial fibrillation Consultation Date/Type/Reason Admit Date/Time Jun 25, 2018 at 06:24 Initial Consult Date 06/26/18 Type of Consult [facility] Requesting Provider: NUBIA TEJEDA MD Date/Time of Note DATE: 07/01/18 TIME: 22:09 24 HR Interval Summary Free Text/Dictation all noted post op Foot is warm Continue anticoagulation Exam/Review of Systems Exam Vitals Vital Signs Date Temp Pulse Resp B/P (MAP) Pulse Ox O2 O2 Flow FiO2 Time Delivery Rate 07/01/18 80 20:36 07/01/18 99.0 18 155/72 94 Room Air 20:00 (99) 07/01/18 2.0 07:55 Intake and Output 06/30/18 06/30/18 07/01/18 1515:00 23:00 07:00 IntakeIntake Total 641 ml 300 ml OutputOutput Total 700 ml 2500 ml BalanceBalance -59 ml -2200 ml Exam Constitutional: alert, oriented Psych: no complaints Neck: supple Respiratory: crackles/rales Cardiovascular: regular rate and rhythm, systolic murmur Gastrointestinal: soft EXT- + PS Results Result Diagram: 07/01/18 0813 07/01/18 0813 Results 24hrs Laboratory Tests Test 07/01/18 01:25 07/01/18 02:57 07/01/18 07:44 07/01/18 07:53 Activated 98.8 *H Partial Thromboplas t Time Bedside Glucose 199 142 Lab Scanned Report BLOOD TRANSFUSION Test 07/01/18 08:13 07/01/18 11:51 07/01/18 14:30 07/01/18 17:08 White Blood Count 12.2 #H Red Blood Count 3.20 L Hemoglobin 9.1 L Hematocrit 29.0 L Mean Corpuscular 90.6 Volume Mean Corpuscular 28.4 L Hemoglobin Mean Corpuscular 31.4 L Hemoglobin Concent Red Cell 13.3 Distribution Width Platelet Count 228 Mean Platelet 11.9 H Volume Immature 0.400 Granulocytes % Neutrophils % 72.2 Lymphocytes % 14.7 L Monocytes % 9.9 Eosinophils % 2.5 Basophils % 0.3 Nucleated Red Blood 0.0 Cells % Immature 0.050 H Granulocytes # Neutrophils # 8.8 H Lymphocytes # 1.8 Monocytes # 1.2 H Eosinophils # 0.3 Basophils # 0.0 Nucleated Red Blood 0.0 Cells # Activated 77.9 *H 28.9 Partial Thromboplas t Time Sodium Level 138 Potassium Level 5.2 H Chloride Level 102 Carbon Dioxide 28 Level Anion Gap 8 Blood Urea Nitrogen 41 H Creatinine 1.83 H Est Glomerular Filtrat Rate mL/min Glucose Level 128 Calcium Level 9.2 B-Type Natriuretic 2500 H Peptide Bedside Glucose 202 259 H Test 07/01/18 20:22 Bedside Glucose 349 H Medications Medication Current Medications Amiodarone HCl (Cordarone) 200 mg BID PO Last administered on 07/01/18at 21:55; A dmin Dose 200 MG; Start 06/25/18 at 11:30 Aspirin (Halfprin) 81 mg DAILY PO Last administered on 07/01/18 08:13; Admin Dose 81 MG; Start 06/25/18 at 11:30 Atorvastatin Calcium (Lipitor) 40 mg QHS PO Last administered on 07/01/18 21:54; Admin Dose 40 MG; Start 06/25/18 at 21:00 Carvedilol (Coreg) 3.125 mg BID PO Last administered on 07/01/18at 21:54; Admin Dose 3.125 MG; Start 06/25/18 at 11:30 Docusate Sodium (Colace) 100 mg TID PO Last administered on 07/01/18 21:54; Admin Dose 100 MG; Start 06/25/18 at 13:00 Miscellaneous Information 1 ea NOTE XX ; Start 06/25/18 at 11:30 Glucose (Glutose) 15 gm Q15M PRN PO DECREASED GLUCOSE; Start 06/25/18 at 11:30 Glucose (Glutose) 22.5 gm Q15M PRN PO DECREASED GLUCOSE; Start 06/25/18 at 11:30 Dextrose (D50w Syringe) 25 ml Q15M PRN IV DECREASED GLUCOSE; Start 06/25/18 at 11:30 Dextrose (D50w Syringe) 50 ml Q15M PRN IV DECREASED GLUCOSE; Start 06/25/18 at 11:30 Glucagon (Glucagen) 1 mg Q15M PRN IM DECREASED GLUCOSE; Start 06/25/18 at 11:30 Glucose (Glutose) 15 gm Q15M PRN BUCCAL DECREASED GLUCOSE; Start 06/25/18 at 11:30 Heparin Sodium (Porcine) (Heparin (1000 Units/ml)) 7,000 unit PER PROTOCOL PRN IV aPTT<47 Last administered on 07/01/18 16:00; Admin Dose 7,000 UNIT; Start 06/25/18 at 13:00 Heparin Sodium (Porcine) (Heparin (1000 Units/ml)) 3,500 unit PER PROTOCOL PRN IV aPTT<47-57; Start 06/25/18 at 13:00 Diagnostic Test (Pha) (Accu-Chek) 1 ea 02 XX Last administered on 07/01/18at 02:00; Admin Dose 1 EA; Start 06/26/18 at 02:00 Ondansetron HCl (Zofran Inj) 4 mg Q4H PRN IV NAUSEA AND/OR VOMITING; Start 06/28/18 at 01:30 Clonidine (Catapres) 0.1 mg BID PRN PO SBP > 180 Last administered on 06/30/18at 23:33; Admin Dose 0.1 MG; Start 06/28/18 at 14:00 Acetaminophen (Tylenol Tab) 650 mg Q4H PRN PO MILD PAIN(1-3)OR ELEVATED TEMP Last administered on 07/01/18 11:20; Admin Dose 650 MG; Start 06/29/18 at 09:30 Gabapentin (Neurontin) 300 mg HS PO Last administered on 07/01/18 21:55; Admin Dose 300 MG; Start 06/29/18 at 21:00 Pantoprazole (Protonix Tab) 40 mg DAILY@06 PO Last administered on 07/01/18 06:42; Admin Dose 40 MG; Start 06/30/18 at 06:00 Miscellaneous Information (Pending Santyl Order For Wound Care) This patient h a... PRN PRN XX WOUND CARE; Start 06/30/18 at 08:00 Heparin Sodium (Porcine) 250 ml @ 11.5 mls/hr PER PROTOCOL IV Last administered on 07/01/18 16:00; Admin Dose 13 MLS/HR; Start 07/01/18 at 14:30 Collagenase (Santyl) 1 applic DAILY TOP ; Start 07/02/18 at 09:00 Epoetin Alejo-epbx (Retacrit) 6,000 unit TuThSa@1700 SC Last administered on 07/01/18 18:00; Admin Dose 6,000 UNIT; Start 07/01/18 at 17:00 Lorazepam (Ativan) 0.5 mg Q8H PRN PO ANXIETY; Start 07/01/18 at 16:30 Morphine Sulfate (morphine) 6 mg Q4H PRN PO SEVERE PAIN LEVEL 7-10; Start 07/01/18 at 16:30 Insulin Glargine (Lantus) 40 units BID SC Last administered on 07/01/18 21:57; Admin Dose 40 UNITS; Start 07/01/18 at 21:00 Insulin Aspart (Novolog Insulin Pen) NOVOLOG *MODERATE* ALGORITHM WITH MEALS BEDTIME SC Last administered on 07/01/18 22:05; Admin Dose 4 UNIT; Start 07/01/18 at 21:00 JOSÉ FRANZ MD Jul 01, 2018 22:11
[2018-07-01] MEDS ORDERED: INSULIN ASPART [NOVOLOG] 3 ML PEN SC ONE (23:30)
[2018-07-02] VITALS (10 sets, daily range): BP systolic 133–164; BP diastolic 55–73; PULSE 78–91; RESP 18
[2018-07-02] MEDS: ACCU-CHEK XX SCH (02:00)
[2018-07-02] MEDS: PANTOPRAZOLE (EC) 40 MG TAB PO SCH (06:27)
[2018-07-02] MEDS: INSULIN ASPART [NOVOLOG] 3 ML PEN SC SCH ×4 (08:11→21:19)
[2018-07-02] MEDS: DOCUSATE SODIUM 100 MG CAP PO SCH ×3 (08:51→21:13)
[2018-07-02] MEDS: ASPIRIN (EC) 81 MG TAB PO SCH (08:52)
[2018-07-02] MEDS: AMIODARONE 200 MG TAB PO SCH ×2 (08:52→21:13)
[2018-07-02] MEDS: COLLAGENASE 5 GM (UD JAR) TOP SCH (08:53)
[2018-07-02] MEDS: INSULIN GLARGINE [LANTus] (100 UNITS/ML) SYG SC SCH ×2 (09:16→22:35)
[2018-07-02] MEDS: MAGNESIUM HYDROXIDE 30ML CUP PO SCH ×2 (09:35→21:13)
[2018-07-02] MEDS: HEPARIN 25000 UNITS/250 ML 250 ML IV SCH ×3 (09:40→17:44)
[2018-07-02] MEDS ORDERED: VANCOMYCIN IV PER PHARMACY XX SCH (12:30)
[2018-07-02] MEDS ORDERED: VANCOMYCIN HCL 1.5 GM in SOD CHLORIDE 0.9% 250 ML IVPB ONE (13:30)
--- NOTE | 2018-07-02 16:45 | PN ---
DATE: 07/01/2018 An 82-year-old female who came in for acute pain of the left lower extremity and cold foot. The christie ent had a thrombus in the left femoral artery. The patient had procedure by Dr. Dawson, removed t he thrombus, on anticoagulation, tolerated the treatment well, but she has had a mass over the left i nguinal area and difficulty walking. The patient today is alert and oriented x3, in no acute distres s. The leg is warmer. Pain is tolerated better, but she has pain over the inguinal area. VITALS: Blood pressure is 145/67, heart rate is 71, respiratory rate 18, and she is afebrile, satura ting 96% on room air. REVIEW OF SYSTEMS: As I mentioned, the patient's only concern is pain over the inguinal area and sti ll pain over the lower extremities, better, but still aching over the lower extremities, and difficul ty walking. PHYSICAL EXAMINATION: HEENT: Head is atraumatic, normocephalic. Pupils are equal and reactive to light. Extraocular musc les are intact. Nares are clear. No obstruction. No deviation of the septum. NECK: Supple. No JVD, no surgical scars, no lymph nodes palpable over the neck. CHEST: AP contour is within normal limits. Breasts and nipples are normal, no nipple retraction. HEART: S1, S2, irregular rate and rhythm, with at points extrasystole, in and out of AFib. LUNGS: Crackles over the bases of the lungs, otherwise negative. ABDOMEN: Soft, positive bowel sounds. No hepatosplenomegaly, no masses palpable over the abdomen. No rebound tenderness. EXTREMITIES: She has tenderness over the left inguinal area with a small bump over that area. Pulse s are palpable, much better. Warm legs, and no edema. Only the left is a little bit more swollen th an the right overall, the leg. LABORATORY DATA: Sodium 138, potassium 5.2, BUN 41, creatinine 1.83. CBC: White count 12.2, hemogl obin 9.1, hematocrit 29.0, and platelet count 228. Elevated PTT of course due to heparin. Therefore , diagnosis at this time is status post femoral thrombectomy, anemia, leukocytosis, possible hematoma over the left inguinal area, unstable gait. PLAN: To start physical therapy, continue anticoagulation, and see how the patient tolerates physica l therapy and ambulation. Will follow up tomorrow, will discuss with Dr. Dawson, and continue susana atment as usual. Dictated By: NUBIA BREWER/JAYDEN Conf#: [id number] DID#: [id number] CC: ERNESTO MCGARRY MD;*EndCC*
--- NOTE | 2018-07-02 16:49 | PN ---
DATE: 07/02/2018 SUBJECTIVE: The patient is on a tele bed, status post femoral thrombectomy, day 4. The patient is d oing much better. Yesterday she had physical therapy work with her. Still complaining of pain over the lower extremities bilaterally. Denies of any shortness of breath. Denies of any chest pain. De nies of any discomfort over the abdomen, just she has not had a bowel movement, she says, for a coupl e of days. PHYSICAL EXAMINATION: VITAL SIGNS: Blood pressure today is 151/69, heart rate 85, temperature 98.2, respiratory rate 18, a nd saturating 95% on room air. GENERAL: Alert and oriented x3, in no acute distress. CHEST: AP contour is within normal limits. Breasts and nipples are normal, no nipple retraction. HEART: S1, AFib, controlled rate, with cardiomegaly. LUNGS: Crackles over the bases of the lungs, otherwise negative. ABDOMEN: Soft. Positive bowel sounds. No hepatosplenomegaly. No masses palpable over the abdomen, and no rebound tenderness. EXTREMITIES: Tenderness over the left inguinal area and swelling of the lower extremity overall, po stprocedural possibly. LABORATORY DATA: Today CBC is elevated, white count 20,000, hemoglobin 8.8, hematocrit 27.6, platele t count 288. Chemistry: Potassium is 5.6, sodium 137, BUN 44, creatinine 1.66, and sugar is 280. C hest x-ray is pending. ASSESSMENT AND PLAN: 1. Status post femoral thrombectomy. 2. [id number] renal failure. 3. Atrial fibrillation. 4. Coronary artery disease. 5. Peripheral vascular disease. 6. Type 2 diabetes mellitus with complications. 7. Generalized weakness. Plan for patient to continue anticoagulation and start transitioning to oral anticoagulation. Contin ue physical therapy, and monitor BUN, creatinine, and possibly discharge in the coming day or two. Dictated By: NUBIA TEJEDA MD SB/JAYDEN Conf#: [id number] DID#: [id number] CC: ERNESTO MCGARRY MD;*EndCC*
[2018-07-02] MEDS ORDERED: SOD CHLORIDE 0.9% 1,000 ML IV SCH (19:30)
[2018-07-02] MEDS: GABAPENTIN 300 MG CAP PO SCH (21:13)
[2018-07-02] MEDS: ATORVASTATIN 40 MG TAB PO SCH (21:13)
[2018-07-02] MEDS: APIXABAN 5 MG TABLET PO SCH (21:13)
--- NOTE | 2018-07-02 21:27 | CONS ---
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 She is being transitioned to oral anticoagulant. -Continue Coreg as tolerated. No VAL inhibitor given acute kidney injury -Continue to hold any nephrotoxic medications, patient being followed by nephrology. Consultation Date/Type/Reason Admit Date/Time Jun 25, 2018 at 06:24 Initial Consult Date 06/25/18 Type of Consult Cardiology Requesting Provider: NUBIA TEJEDA MD Date/Time of Note DATE: 07/02/18 TIME: 21:26 24 HR Interval Summary Free Text/Dictation no sob, palp, cp Exam/Review of Systems Vital Signs Vitals Vital Signs Date Temp Pulse Resp B/P (MAP) Pulse Ox O2 O2 Flow FiO2 Time Delivery Rate 07/02/18 99.1 86 18 164/73 95 Room Air 20:00 (103) 07/01/18 2.0 20:00 Intake and Output 07/01/18 07/01/18 07/02/18 1515:00 23:00 07:00 IntakeIntake Total 34.5 ml 750.5 ml 400 ml OutputOutput Total 550 ml BalanceBalance 34.5 ml 200.5 ml 400 ml Exam Constitutional: alert, oriented (nad, family at bedside) Head: normocephalic Respiratory: other (course bs, no wheeze) Cardiovascular: regular rate and rhythm (s1s2) Gastrointestinal: soft, non-tender, bowel sounds Extremities: edema Labs Result Diagram: 07/02/18 0656 07/02/18 0656 Results 24hrs Laboratory Tests Test 07/01/18 21:59 07/02/18 01:59 07/02/18 06:56 07/02/18 07:00 Activated 114.0 *H 58.8 H Partial Thromboplast Time Bedside Glucose 226 H White Blood Count 20.4 #H Red Blood Count 3.06 L Hemoglobin 8.8 L Hematocrit 27.6 L Mean Corpuscular Volume 90.2 Mean Corpuscular 28.8 L Hemoglobin Mean Corpuscular 31.9 L Hemoglobin Concent Red Cell Distribution 13.2 Width Platelet Count 288 # Mean Platelet Volume 12.1 H Immature Granulocytes % 0.800 H Neutrophils % 79.1 H Lymphocytes % 10.3 L Monocytes % 8.8 Eosinophils % 0.7 Basophils % 0.3 Nucleated Red Blood 0.0 Cells % Immature Granulocytes # 0.170 H Neutrophils # 16.1 H Lymphocytes # 2.1 Monocytes # 1.8 H Eosinophils # 0.1 Basophils # 0.1 Nucleated Red Blood 0.0 Cells # Sodium Level 137 Potassium Level 5.6 H Chloride Level 101 Carbon Dioxide Level 27 Anion Gap 9 Blood Urea Nitrogen 44 H Creatinine 1.66 H Est Glomerular Filtrat Rate mL/min Glucose Level 151 Calcium Level 9.5 Test 07/02/18 07:39 07/02/18 11:25 07/02/18 14:57 07/02/18 17:27 Bedside Glucose 168 280 H 299 H Activated 137.2 *H Partial Thromboplast Time Test 07/02/18 21:11 Bedside Glucose 212 Medications Medications Current Medications Amiodarone HCl (Cordarone) 200 mg BID PO Last administered on 07/02/18 21:13; Admin Dose 200 MG; Start 06/25/18 at 11:30 Aspirin (Halfprin) 81 mg DAILY PO Last administered on 07/02/18 08:52; Admin Dose 81 MG; Start 06/25/18 at 11:30 Atorvastatin Calcium (Lipitor) 40 mg QHS PO Last administered on 07/02/18 21:13; Admin Dose 40 MG; Start 06/25/18 at 21:00 Carvedilol (Coreg) 3.125 mg BID PO Last administered on 07/02/18 21:14; Admin Dose 3.125 MG; Start 06/25/18 at 11:30 Docusate Sodium (Colace) 100 mg TID PO Last administered on 07/02/18 21:13; Admin Dose 100 MG; Start 06/25/18 at 13:00 Miscellaneous Information 1 ea NOTE XX ; Start 06/25/18 at 11:30 Glucose (Glutose) 15 gm Q15M PRN PO DECREASED GLUCOSE; Start 06/25/18 at 11:30 Glucose (Glutose) 22.5 gm Q15M PRN PO DECREASED GLUCOSE; Start 06/25/18 at 11:30 Dextrose (D50w Syringe) 25 ml Q15M PRN IV DECREASED GLUCOSE; Start 06/25/18 at 11:30 Dextrose (D50w Syringe) 50 ml Q15M PRN IV DECREASED GLUCOSE; Start 06/25/18 at 11:30 Glucagon (Glucagen) 1 mg Q15M PRN IM DECREASED GLUCOSE; Start 06/25/18 at 11:30 Glucose (Glutose) 15 gm Q15M PRN BUCCAL DECREASED GLUCOSE; Start 06/25/18 at 11:30 Diagnostic Test (Pha) (Accu-Chek) 1 ea 02 XX Last administered on 07/01/18at 02:00; Admin Dose 1 EA; Start 06/26/18 at 02:00 Ondansetron HCl (Zofran Inj) 4 mg Q4H PRN IV NAUSEA AND/OR VOMITING; Start 06/28/18 at 01:30 Clonidine (Catapres) 0.1 mg BID PRN PO SBP > 180 Last administered on 06/30/18at 23:33; Admin Dose 0.1 MG; Start 06/28/18 at 14:00 Acetaminophen (Tylenol Tab) 650 mg Q4H PRN PO MILD PAIN(1-3)OR ELEVATED TEMP Last administered on 07/01/18 11:20; Admin Dose 650 MG; Start 06/29/18 at 09:30 Gabapentin (Neurontin) 300 mg HS PO Last administered on 07/02/18 21:13; Admin Dose 300 MG; Start 06/29/18 at 21:00 Pantoprazole (Protonix Tab) 40 mg DAILY@06 PO Last administered on 07/02/18 06:27; Admin Dose 40 MG; Start 06/30/18 at 06:00 Miscellaneous Information (Pending Santyl Order For Wound Care) This patient green... PRN PRN XX WOUND CARE; Start 06/30/18 at 08:00 Collagenase (Santyl) 1 applic DAILY TOP Last administered on 07/02/18at 08:53; Admin Dose 1 APPLIC; Start 07/02/18 at 09:00 Epoetin Alejo-epbx (Retacrit) 6,000 unit TuThSa@1700 SC Last administered on 07/01/18at 18:00; Admin Dose 6,000 UNIT; Start 07/01/18 at 17:00 Lorazepam (Ativan) 0.5 mg Q8H PRN PO ANXIETY; Start 07/01/18 at 16:30 Morphine Sulfate (morphine) 6 mg Q4H PRN PO SEVERE PAIN LEVEL 7-10; Start 07/01/18 at 16:30 Insulin Aspart (Novolog Insulin Pen) NOVOLOG *MODERATE* ALGORITHM WITH MEALS BEDTIME SC Last administered on 07/02/18at 21:19; Admin Dose 1 UNIT; Start 07/01/18 at 21:00 Magnesium Hydroxide (Milk Of Mag) 30 ml BID PO Last administered on 07/02/18at 21:13; Admin Dose 30 ML; Start 07/02/18 at 09:00 Vancomycin HCl (Vanco Iv Per Pharmacy) VANCOMYCIN PER PHARMACY PER PROTOCOL XX ; Start 07/02/18 at 12:30 Apixaban (Eliquis) 2.5 mg BID PO Last administered on 07/02/18at 21:13; Admin Dose 2.5 MG; Start 07/02/18 at 21:00 Vancomycin HCl 250 ml @ 125 mls/hr Q36H IVPB ; Start 07/04/18 at 02:00 Insulin Glargine (Lantus) 50 units BID SC ; Start 07/02/18 at 21:00 Insulin Aspart (Novolog Insulin Pen) 6 unit WITH MEALS SC ; Start 07/03/18 at 07:55 Sodium Chloride 1,000 ml @ 50 mls/hr Q20H IV Last administered on 07/02/18at 21:12; Admin Dose 50 MLS/HR; Start 07/02/18 at 19:30; Stop 07/03/18 at 15:29 Alex Chávez DO Jul 02, 2018 21:27
[2018-07-02] MEDS: ACETAMINOPHEN 325 MG TAB PO PRN (22:28)
[2018-07-03] VITALS (12 sets, daily range): BP systolic 119–159; BP diastolic 57–87; PULSE 44–87; RESP 16–18
--- NOTE | 2018-07-03 00:09 | CONS ---
Assessment/Plan Assessment/Plan Hospital Course (Demo Recall) History of renal carcinoma status post nephrectomy focally prominent 2.7 cm soft tissue lobulation in the inferior left renal lower pole adjacent to surgical clips, possibly reflecting postsurgical change or recurrent neoplasm. Enhancing lobulated mass in the lower pole left kidney with no extension into the left renal vein. PET/CT OUTPT CT AP- REVIEWED can not give contrast PT REFUSED MRI LDH- NOTED F-UP OUTPT echocardiogram- echogenic structure in the right atrium, as well as attached to the tricuspid valve as well as the IVC. Differential includes vegetation, malignancy or thrombus. The IVC is focally distended at the inferior cavoatrial junction, containing an 8 mm metallic focus which may lie within intravenous tumor mass. Evaluation is quite limited in the absence of intravenous contrast. 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 Coarse calcifications in the left breast parenchyma, most likely benign. diagnostic mammography as outpt Acute congestive heart failure exacerbation. Acute sepsis, possible urinary tract infection. Elevated lactate levels. Type 2 diabetes mellitus, uncontrolled. Hyperglycemia. Diabetic neuropathy. Gastroesophageal reflux disease. Possible transient ischemic attacks. Hypertension, uncontrolled Renal failure with creatinine of 3.95 INTERMITTENT atrial fibrillation VK LE 4.3.19 Consultation Date/Type/Reason Admit Date/Time Jun 25, 2018 at 06:24 Initial Consult Date 06/26/18 Type of Consult [facility] Requesting Provider: NUBIA TEJEDA MD Date/Time of Note DATE: 07/03/18 TIME: 00:09 24 HR Interval Summary Free Text/Dictation ALL NOTED NAD Exam/Review of Systems Exam Vitals Vital Signs Date Temp Pulse Resp B/P (MAP) Pulse Ox O2 O2 Flow FiO2 Time Delivery Rate 07/02/18 98.9 23:13 07/02/18 86 18 164/73 95 Room Air 20:00 (103) 07/02/18 2.0 20:00 Intake and Output 07/02/18 07/02/18 07/03/18 1515:00 23:00 07:00 IntakeIntake Total 650 ml BalanceBalance 650 ml Exam Constitutional: alert, oriented Psych: no complaints Neck: supple Respiratory: crackles/rales Cardiovascular: regular rate and rhythm, systolic murmur Gastrointestinal: soft EXT- + PS Results Result Diagram: 07/02/18 0656 07/02/18 0656 Results 24hrs Laboratory Tests Test 07/02/18 01:59 07/02/18 06:56 07/02/18 07:00 07/02/18 07:39 Bedside Glucose 226 H 168 White Blood Count 20.4 #H Red Blood Count 3.06 L Hemoglobin 8.8 L Hematocrit 27.6 L Mean Corpuscular Volume 90.2 Mean Corpuscular 28.8 L Hemoglobin Mean Corpuscular 31.9 L Hemoglobin Concent Red Cell Distribution 13.2 Width Platelet Count 288 # Mean Platelet Volume 12.1 H Immature Granulocytes % 0.800 H Neutrophils % 79.1 H Lymphocytes % 10.3 L Monocytes % 8.8 Eosinophils % 0.7 Basophils % 0.3 Nucleated Red Blood 0.0 Cells % Immature Granulocytes # 0.170 H Neutrophils # 16.1 H Lymphocytes # 2.1 Monocytes # 1.8 H Eosinophils # 0.1 Basophils # 0.1 Nucleated Red Blood 0.0 Cells # Sodium Level 137 Potassium Level 5.6 H Chloride Level 101 Carbon Dioxide Level 27 Anion Gap 9 Blood Urea Nitrogen 44 H Creatinine 1.66 H Est Glomerular Filtrat Rate mL/min Glucose Level 151 Calcium Level 9.5 Activated 58.8 H Partial Thromboplast Time Test 07/02/18 11:25 07/02/18 14:57 07/02/18 17:27 07/02/18 21:11 Bedside Glucose 280 H 299 H 212 Activated 137.2 *H Partial Thromboplast Time Test 07/02/18 23:25 Activated 113.5 *H Partial Thromboplast Time Medications Medication Current Medications Amiodarone HCl (Cordarone) 200 mg BID PO Last administered on 07/02/18 21:13; Admin Dose 200 MG; Start 06/25/18 at 11:30 Aspirin (Halfprin) 81 mg DAILY PO Last administered on 07/02/18 08:52; Admin Dose 81 MG; Start 06/25/18 at 11:30 Atorvastatin Calcium (Lipitor) 40 mg QHS PO Last administered on 07/02/18at 21:13; Admin Dose 40 MG; Start 06/25/18 at 21:00 Carvedilol (Coreg) 3.125 mg BID PO Last administered on 07/02/18 21:14; Admin Dose 3.125 MG; Start 06/25/18 at 11:30 Docusate Sodium (Colace) 100 mg TID PO Last administered on 07/02/18 21:13; Admin Dose 100 MG; Start 06/25/18 at 13:00 Miscellaneous Information 1 ea NOTE XX ; Start 06/25/18 at 11:30 Glucose (Glutose) 15 gm Q15M PRN PO DECREASED GLUCOSE; Start 06/25/18 at 11:30 Glucose (Glutose) 22.5 gm Q15M PRN PO DECREASED GLUCOSE; Start 06/25/18 at 11:30 Dextrose (D50w Syringe) 25 ml Q15M PRN IV DECREASED GLUCOSE; Start 06/25/18 at 11:30 Dextrose (D50w Syringe) 50 ml Q15M PRN IV DECREASED GLUCOSE; Start 06/25/18 at 11:30 Glucagon (Glucagen) 1 mg Q15M PRN IM DECREASED GLUCOSE; Start 06/25/18 at 11:30 Glucose (Glutose) 15 gm Q15M PRN BUCCAL DECREASED GLUCOSE; Start 06/25/18 at 11:30 Diagnostic Test (Pha) (Accu-Chek) 1 ea 02 XX Last administered on 07/01/18at 02:00; Admin Dose 1 EA; Start 06/26/18 at 02:00 Ondansetron HCl (Zofran Inj) 4 mg Q4H PRN IV NAUSEA AND/OR VOMITING; Start 06/28/18 at 01:30 Clonidine (Catapres) 0.1 mg BID PRN PO SBP > 180 Last administered on 06/30/18at 23:33; Admin Dose 0.1 MG; Start 06/28/18 at 14:00 Acetaminophen (Tylenol Tab) 650 mg Q4H PRN PO MILD PAIN(1-3)OR ELEVATED TEMP Last administered on 07/02/18at 22:28; Admin Dose 650 MG; Start 06/29/18 at 09:30 Gabapentin (Neurontin) 300 mg HS PO Last administered on 07/02/18 21:13; Admin Dose 300 MG; Start 06/29/18 at 21:00 Pantoprazole (Protonix Tab) 40 mg DAILY@06 PO Last administered on 07/02/18 06:27; Admin Dose 40 MG; Start 06/30/18 at 06:00 Miscellaneous Information (Pending Santyl Order For Wound Care) This patient green... PRN PRN XX WOUND CARE; Start 06/30/18 at 08:00 Collagenase (Santyl) 1 applic DAILY TOP Last administered on 07/02/18 08:53; Admin Dose 1 APPLIC; Start 07/02/18 at 09:00 Epoetin Alejo-epbx (Retacrit) 6,000 unit TuThSa@1700 SC Last administered on 07/01/18 18:00; Admin Dose 6,000 UNIT; Start 07/01/18 at 17:00 Lorazepam (Ativan) 0.5 mg Q8H PRN PO ANXIETY; Start 07/01/18 at 16:30 Morphine Sulfate (morphine) 6 mg Q4H PRN PO SEVERE PAIN LEVEL 7-10; Start 07/01/18 at 16:30 Insulin Aspart (Novolog Insulin Pen) NOVOLOG *MODERATE* ALGORITHM WITH MEALS BEDTIME SC Last administered on 07/02/18 21:19; Admin Dose 1 UNIT; Start 07/01/18 at 21:00 Magnesium Hydroxide (Milk Of Mag) 30 ml BID PO Last administered on 07/02/18 21:13; Admin Dose 30 ML; Start 07/02/18 at 09:00 Vancomycin HCl (Vanco Iv Per Pharmacy) VANCOMYCIN PER PHARMACY PER PROTOCOL XX ; Start 07/02/18 at 12:30 Apixaban (Eliquis) 2.5 mg BID PO Last administered on 07/02/18 21:13; Admin Dose 2.5 MG; Start 07/02/18 at 21:00 Vancomycin HCl 250 ml @ 125 mls/hr Q36H IVPB ; Start 07/04/18 at 02:00 Insulin Glargine (Lantus) 50 units BID SC Last administered on 07/02/18at 22:35; Admin Dose 50 UNITS; Start 07/02/18 at 21:00 Insulin Aspart (Novolog Insulin Pen) 6 unit WITH MEALS SC ; Start 07/03/18 at 07:55 Sodium Chloride 1,000 ml @ 50 mls/hr Q20H IV Last administered on 07/02/18 21:12; Admin Dose 50 MLS/HR; Start 07/02/18 at 19:30; Stop 07/03/18 at 15:29 JOSÉ FRANZ MD Jul 03, 2018 00:09
[2018-07-03] MEDS: ACCU-CHEK XX SCH (02:00)
[2018-07-03] MEDS: PANTOPRAZOLE (EC) 40 MG TAB PO SCH (06:40)
[2018-07-03] MEDS: INSULIN ASPART [NOVOLOG] 3 ML PEN SC SCH ×7 (09:04→21:25)
[2018-07-03] MEDS: MAGNESIUM HYDROXIDE 30ML CUP PO SCH ×2 (09:13→20:46)
[2018-07-03] MEDS: AMIODARONE 200 MG TAB PO SCH (09:14)
[2018-07-03] MEDS: APIXABAN 5 MG TABLET PO SCH ×2 (09:14→20:45)
[2018-07-03] MEDS: COLLAGENASE 5 GM (UD JAR) TOP SCH (09:14)
[2018-07-03] MEDS: ASPIRIN (EC) 81 MG TAB PO SCH (09:14)
[2018-07-03] MEDS: DOCUSATE SODIUM 100 MG CAP PO SCH ×3 (09:14→20:45)
[2018-07-03] MEDS: INSULIN GLARGINE [LANTus] (100 UNITS/ML) SYG SC SCH ×2 (12:50→21:25)
[2018-07-03] MEDS: ACETAMINOPHEN 325 MG TAB PO PRN (12:55)
--- NOTE | 2018-07-03 16:38 | CONS ---
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 She has been transitioned to oral anticoagulant. -Patient with paroxysmal atrial fibrillation with bradycardia, would hold Coreg, decreased dose of amiodarone -Continue to hold any nephrotoxic medications, patient being followed by nephrology. Consultation Date/Type/Reason Admit Date/Time Jun 25, 2018 at 06:24 Initial Consult Date 06/25/18 Type of Consult Cardiology Requesting Provider: NUBIA TEJEDA MD Date/Time of Note DATE: 07/03/18 TIME: 16:37 24 HR Interval Summary Free Text/Dictation Patient seen and examined Exam/Review of Systems Vital Signs Vitals Vital Signs Date Temp Pulse Resp B/P (MAP) Pulse Ox O2 O2 Flow FiO2 Time Delivery Rate 07/03/18 98.6 85 16 130/87 97 Nasal 15:11 (101) Cannula 07/03/18 2.0 09:00 Intake and Output 07/02/18 07/02/18 07/03/18 1515:00 23:00 07:00 IntakeIntake Total 650 ml 400 ml BalanceBalance 650 ml 400 ml Exam Exam Sleeping, no apparent distress Head: normocephalic Respiratory: other (Coarse breath sounds bilaterally, no wheezing) Cardiovascular: irregular rhythm (S1-S2 heard) Gastrointestinal: soft, non-tender, bowel sounds Extremities: edema Labs Result Diagram: 07/02/18 0656 07/02/18 0656 Results 24hrs Laboratory Tests Test 07/02/18 17:27 07/02/18 21:11 07/02/18 23:25 07/03/18 01:59 Bedside Glucose 299 H 212 244 H Activated 113.5 *H Partial Thromboplast Time Test 07/03/18 08:52 07/03/18 12:44 Bedside Glucose 234 H 291 H Medications Medications Current Medications Amiodarone HCl (Cordarone) 200 mg BID PO Last administered on 07/03/18at 09:14; Admin Dose 200 MG; Start 06/25/18 at 11:30 Aspirin (Halfprin) 81 mg DAILY PO Last administered on 07/03/18 09:14; Admin Dose 81 MG; Start 06/25/18 at 11:30 Atorvastatin Calcium (Lipitor) 40 mg QHS PO Last administered on 07/02/18 21:13; Admin Dose 40 MG; Start 06/25/18 at 21:00 Carvedilol (Coreg) 3.125 mg BID PO Last administered on 07/03/18 09:14; Admin Dose 3.125 MG; Start 06/25/18 at 11:30 Docusate Sodium (Colace) 100 mg TID PO Last administered on 07/03/18 12:55; Admin Dose 100 MG; Start 06/25/18 at 13:00 Miscellaneous Information 1 ea NOTE XX ; Start 06/25/18 at 11:30 Glucose (Glutose) 15 gm Q15M PRN PO DECREASED GLUCOSE; Start 06/25/18 at 11:30 Glucose (Glutose) 22.5 gm Q15M PRN PO DECREASED GLUCOSE; Start 06/25/18 at 11:30 Dextrose (D50w Syringe) 25 ml Q15M PRN IV DECREASED GLUCOSE; Start 06/25/18 at 11:30 Dextrose (D50w Syringe) 50 ml Q15M PRN IV DECREASED GLUCOSE; Start 06/25/18 at 11:30 Glucagon (Glucagen) 1 mg Q15M PRN IM DECREASED GLUCOSE; Start 06/25/18 at 11:30 Glucose (Glutose) 15 gm Q15M PRN BUCCAL DECREASED GLUCOSE; Start 06/25/18 at 11:30 Diagnostic Test (Pha) (Accu-Chek) 1 ea 02 XX Last administered on 07/01/18at 02:00; Admin Dose 1 EA; Start 06/26/18 at 02:00 Ondansetron HCl (Zofran Inj) 4 mg Q4H PRN IV NAUSEA AND/OR VOMITING; Start 06/28/18 at 01:30 Clonidine (Catapres) 0.1 mg BID PRN PO SBP > 180 Last administered on 06/30/18at 23:33; Admin Dose 0.1 MG; Start 06/28/18 at 14:00 Acetaminophen (Tylenol Tab) 650 mg Q4H PRN PO MILD PAIN(1-3)OR ELEVATED TEMP Last administered on 07/03/18 12:55; Admin Dose 650 MG; Start 06/29/18 at 09:30 Gabapentin (Neurontin) 300 mg HS PO Last administered on 07/02/18 21:13; Admin Dose 300 MG; Start 06/29/18 at 21:00 Pantoprazole (Protonix Tab) 40 mg DAILY@06 PO Last administered on 07/03/18 06:40; Admin Dose 40 MG; Start 06/30/18 at 06:00 Miscellaneous Information (Pending Santyl Order For Wound Care) This patient green... PRN PRN XX WOUND CARE; Start 06/30/18 at 08:00 Collagenase (Santyl) 1 applic DAILY TOP Last administered on 07/03/18 09:14; Admin Dose 1 APPLIC; Start 07/02/18 at 09:00 Epoetin Alejo-epbx (Retacrit) 6,000 unit TuThSa@1700 SC Last administered on 07/01/18 18:00; Admin Dose 6,000 UNIT; Start 07/01/18 at 17:00 Lorazepam (Ativan) 0.5 mg Q8H PRN PO ANXIETY; Start 07/01/18 at 16:30 Morphine Sulfate (morphine) 6 mg Q4H PRN PO SEVERE PAIN LEVEL 7-10; Start 07/01/18 at 16:30 Insulin Aspart (Novolog Insulin Pen) NOVOLOG *MODERATE* ALGORITHM WITH MEALS BEDTIME SC Last administered on 07/03/18 09:04; Admin Dose 6 UNIT; Start 07/01/18 at 21:00 Magnesium Hydroxide (Milk Of Mag) 30 ml BID PO Last administered on 07/03/18 09:13; Admin Dose 30 ML; Start 07/02/18 at 09:00 Vancomycin HCl (Vanco Iv Per Pharmacy) VANCOMYCIN PER PHARMACY PER PROTOCOL XX ; Start 07/02/18 at 12:30 Apixaban (Eliquis) 2.5 mg BID PO Last administered on 07/03/18 09:14; Admin Dose 2.5 MG; Start 07/02/18 at 21:00 Vancomycin HCl 250 ml @ 125 mls/hr Q36H IVPB ; Start 07/04/18 at 02:00 Insulin Glargine (Lantus) 50 units BID SC Last administered on 07/03/18 12:50; Admin Dose 50 UNITS; Start 07/02/18 at 21:00 Insulin Aspart (Novolog Insulin Pen) 6 unit WITH MEALS SC Last administered on 07/03/18at 09:04; Admin Dose 6 UNIT; Start 07/03/18 at 07:55 Alex Chávez DO Jul 03, 2018 16:38
[2018-07-03] MEDS: EPOETIN ALFA-EPBX (NON-ESRD) 3,000 UNIT/ML VIAL SC SCH (18:15)
[2018-07-03] MEDS ORDERED: NA POLYST SULFON 15 GM/60 ML BTL PO ONE (20:30)
[2018-07-03] MEDS: GABAPENTIN 300 MG CAP PO SCH (20:45)
[2018-07-03] MEDS: ATORVASTATIN 40 MG TAB PO SCH (20:45)
[2018-07-03] MEDS ORDERED: DEXTROSE 50% 50 ML SYRINGE IV ONE (21:30)
[2018-07-03] MEDS ORDERED: CALCIUM GLUCONATE 10% 1 GM in DEXTROSE 5% 100 ML IVPB ONE (21:30)
[2018-07-03] MEDS ORDERED: INSULIN REGULAR, HUMAN 100 UNIT/1 ML 3ML VIAL IV ONE (21:30)
--- NOTE | 2018-07-03 23:00 | CONS ---
Assessment/Plan Assessment/Plan Hospital Course (Demo Recall) History of renal carcinoma status post nephrectomy focally prominent 2.7 cm soft tissue lobulation in the inferior left renal lower pole adjacent to surgical clips, possibly reflecting postsurgical change or recurrent neoplasm. Enhancing lobulated mass in the lower pole left kidney with no extension into the left renal vein. PET/CT OUTPT CT AP- REVIEWED can not give contrast PT REFUSED MRI LDH- NOTED F-UP OUTPT echocardiogram- echogenic structure in the right atrium, as well as attached to the tricuspid valve as well as the IVC. Differential includes vegetation, malignancy or thrombus. The IVC is focally distended at the inferior cavoatrial junction, containing an 8 mm metallic focus which may lie within intravenous tumor mass. Evaluation is quite limited in the absence of intravenous contrast. 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 Coarse calcifications in the left breast parenchyma, most likely benign. diagnostic mammography as outpt Acute congestive heart failure exacerbation. Acute sepsis, possible urinary tract infection. Elevated lactate levels. Type 2 diabetes mellitus, uncontrolled. Hyperglycemia. Diabetic neuropathy. Gastroesophageal reflux disease. Possible transient ischemic attacks. Hypertension, uncontrolled Renal failure with creatinine of 3.95 INTERMITTENT atrial fibrillation VK LE 4.3.19 Consultation Date/Type/Reason Admit Date/Time Jun 25, 2018 at 06:24 Initial Consult Date 06/26/18 Type of Consult [facility] Requesting Provider: NUBIA TEJEDA MD Date/Time of Note DATE: 07/03/18 TIME: 22:59 24 HR Interval Summary Free Text/Dictation ALL NOTED NAD NO BLEEDING Exam/Review of Systems Exam Vitals Vital Signs Date Temp Pulse Resp B/P (MAP) Pulse Ox O2 O2 Flow FiO2 Time Delivery Rate 07/03/18 53 20:00 07/03/18 99.0 16 119/58 99 19:53 (78) 07/03/18 Nasal 15:11 Cannula 07/03/18 2.0 09:00 Intake and Output 07/02/18 07/02/18 07/03/18 1515:00 23:00 07:00 IntakeIntake Total 650 ml 400 ml BalanceBalance 650 ml 400 ml Exam Constitutional: alert, oriented Psych: no complaints Neck: supple Respiratory: crackles/rales Cardiovascular: regular rate and rhythm, systolic murmur Gastrointestinal: soft EXT- + PS Results Result Diagram: 07/03/18190807/03/181908 Results 24hrs Laboratory Tests Test 07/02/18 23:25 07/03/18 01:59 07/03/18 08:52 07/03/18 12:44 Activated 113.5 *H Partial Thromboplast Time Bedside Glucose 244 H 234 H 291 H Test 07/03/18 17:37 07/03/18 19:09 07/03/18 20:41 Bedside Glucose 230 H 226 H White Blood Count 25.5 #H Red Blood Count 2.62 L Hemoglobin 7.5 L Hematocrit 24.2 L Mean Corpuscular Volume 92.4 Mean Corpuscular 28.6 L Hemoglobin Mean Corpuscular 31.0 L Hemoglobin Concent Red Cell Distribution 13.5 Width Platelet Count 277 Mean Platelet Volume 11.6 H Immature Granulocytes % 2.300 H Neutrophils % Segmented Neutrophils 84 H % (Manual) Band Neutrophils % 6 H (Manual) Lymphocytes % Lymphocytes % (Manual) 7 L Reactive Lymphocytes 1 H % (Manual) Monocytes % Monocytes % (Manual) 2 Eosinophils % Basophils % Nucleated Red Blood 0.0 Cells % Immature Granulocytes # 0.600 H Neutrophils # Neutrophils # (Manual) 21.8 H Band Neutrophils # 1.5 H Lymphocytes (Manual) 1.7 Lymphocytes # Reactive Lymphocytes # 0.2 H Monocytes # Monocytes # (Manual) 0.5 Eosinophils # Basophils # Nucleated Red Blood Cells # Pathologist Y Review (Hematology) Platelet Estimate NORMAL Polychromasia 3+ Anisocytosis 1+ Microcytosis 1+ Sodium Level 135 Potassium Level 6.1 *H Chloride Level 98 Carbon Dioxide Level 27 Anion Gap 10 Blood Urea Nitrogen 62 H Creatinine 2.60 H Est Glomerular Filtrat Rate mL/min Glucose Level 243 H Calcium Level 9.1 Medications Medication Current Medications Aspirin (Halfprin) 81 mg DAILY PO Last administered on 07/03/18 09:14; Admin Dose 81 MG; Start 06/25/18 at 11:30 Atorvastatin Calcium (Lipitor) 40 mg QHS PO Last administered on 07/03/18at 20:45; Admin Dose 40 MG; Start 06/25/18 at 21:00 Carvedilol (Coreg) 3.125 mg BID PO Last administered on 07/03/18 09:14; Admin D ose 3.125 MG; Start 06/25/18 at 11:30; Status Hold Docusate Sodium (Colace) 100 mg TID PO Last administered on 07/03/18 20:45; Admin Dose 100 MG; Start 06/25/18 at 13:00 Miscellaneous Information 1 ea NOTE XX ; Start 06/25/18 at 11:30 Glucose (Glutose) 15 gm Q15M PRN PO DECREASED GLUCOSE; Start 06/25/18 at 11:30 Glucose (Glutose) 22.5 gm Q15M PRN PO DECREASED GLUCOSE; Start 06/25/18 at 11:30 Dextrose (D50w Syringe) 25 ml Q15M PRN IV DECREASED GLUCOSE; Start 06/25/18 at 11:30 Dextrose (D50w Syringe) 50 ml Q15M PRN IV DECREASED GLUCOSE; Start 06/25/18 at 11:30 Glucagon (Glucagen) 1 mg Q15M PRN IM DECREASED GLUCOSE; Start 06/25/18 at 11:30 Glucose (Glutose) 15 gm Q15M PRN BUCCAL DECREASED GLUCOSE; Start 06/25/18 at 11:30 Diagnostic Test (Pha) (Accu-Chek) 1 ea 02 XX Last administered on 07/01/18at 02:00; Admin Dose 1 EA; Start 06/26/18 at 02:00 Ondansetron HCl (Zofran Inj) 4 mg Q4H PRN IV NAUSEA AND/OR VOMITING Last administered on 07/03/18 19:04; Admin Dose 4 MG; Start 06/28/18 at 01:30 Clonidine (Catapres) 0.1 mg BID PRN PO SBP > 180 Last administered on 06/30/18at 23:33; Admin Dose 0.1 MG; Start 06/28/18 at 14:00 Acetaminophen (Tylenol Tab) 650 mg Q4H PRN PO MILD PAIN(1-3)OR ELEVATED TEMP Last administered on 07/03/18 12:55; Admin Dose 650 MG; Start 06/29/18 at 09:30 Gabapentin (Neurontin) 300 mg HS PO Last administered on 07/03/18 20:45; Admin Dose 300 MG; Start 06/29/18 at 21:00 Pantoprazole (Protonix Tab) 40 mg DAILY@06 PO Last administered on 07/03/18 06:40; Admin Dose 40 MG; Start 06/30/18 at 06:00 Miscellaneous Information (Pending Santyl Order For Wound Care) This patient green... PRN PRN XX WOUND CARE; Start 06/30/18 at 08:00 Collagenase (Santyl) 1 applic DAILY TOP Last administered on 07/03/18 09:14; Admin Dose 1 APPLIC; Start 07/02/18 at 09:00 Epoetin Alejo-epbx (Retacrit) 6,000 unit TuThSa@1700 SC Last administered on 07/03/18 18:15; Admin Dose 6,000 UNIT; Start 07/01/18 at 17:00 Lorazepam (Ativan) 0.5 mg Q8H PRN PO ANXIETY; Start 07/01/18 at 16:30 Morphine Sulfate (morphine) 6 mg Q4H PRN PO SEVERE PAIN LEVEL 7-10; Start 07/01/18 at 16:30 Insulin Aspart (Novolog Insulin Pen) NOVOLOG *MODERATE* ALGORITHM WITH MEALS BEDTIME SC Last administered on 07/03/18 21:25; Admin Dose 2 UNIT; Start 07/01/18 at 21:00 Magnesium Hydroxide (Milk Of Mag) 30 ml BID PO Last administered on 07/03/18 20:46; Admin Dose 30 ML; Start 07/02/18 at 09:00 Vancomycin HCl (Vanco Iv Per Pharmacy) VANCOMYCIN PER PHARMACY PER PROTOCOL XX ; Start 07/02/18 at 12:30 Apixaban (Eliquis) 2.5 mg BID PO Last administered on 07/03/18 20:45; Admin Dose 2.5 MG; Start 07/02/18 at 21:00 Vancomycin HCl 250 ml @ 125 mls/hr Q36H IVPB ; Start 07/04/18 at 02:00 Insulin Glargine (Lantus) 50 units BID SC Last administered on 07/03/18 21:25; Admin Dose 50 UNITS; Start 07/02/18 at 21:00 Insulin Aspart (Novolog Insulin Pen) 6 unit WITH MEALS SC Last administered on 07/03/18 17:43; Admin Dose 6 UNIT; Start 07/03/18 at 07:55 Amiodarone HCl (Cordarone) 200 mg DAILY PO ; Start 07/04/18 at 09:00 JOSÉ FRANZ MD Jul 03, 2018 23:00
[2018-07-04] VITALS (12 sets, daily range): BP systolic 106–158; BP diastolic 48–74; PULSE 57–86; RESP 16–18
[2018-07-04] MEDS: ACCU-CHEK XX SCH (01:30)
[2018-07-04] MEDS ORDERED: VANCOMYCIN 1 GM 250 ML IVPB SCH (02:00)
[2018-07-04] MEDS ORDERED: NA POLYST SULFON 15 GM/60 ML BTL PO ONE (04:00)
[2018-07-04] MEDS: PANTOPRAZOLE (EC) 40 MG TAB PO SCH (05:46)
[2018-07-04] MEDS: INSULIN ASPART [NOVOLOG] 3 ML PEN SC SCH ×7 (07:55→21:00)
[2018-07-04] MEDS: DOCUSATE SODIUM 100 MG CAP PO SCH ×3 (09:00→21:13)
[2018-07-04] MEDS: INSULIN GLARGINE [LANTus] (100 UNITS/ML) SYG SC SCH ×2 (09:00→23:01)
[2018-07-04] MEDS: AMIODARONE 200 MG TAB PO SCH (09:00)
[2018-07-04] MEDS: APIXABAN 5 MG TABLET PO SCH ×2 (09:00→21:13)
[2018-07-04] MEDS: ASPIRIN (EC) 81 MG TAB PO SCH (09:00)
[2018-07-04] MEDS: MAGNESIUM HYDROXIDE 30ML CUP PO SCH ×2 (09:00→21:14)
[2018-07-04] MEDS: COLLAGENASE 5 GM (UD JAR) TOP SCH (09:00)
--- NOTE | 2018-07-04 09:09 | PN ---
DATE: 07/03/2018 SUBJECTIVE: Patient is seen. She is alert and oriented x3 in no distress. The patient was asked ho w she is feeling, she says well. Today, she feels much better than any other day. She is doing okay . From previous notes, the patient is in for thrombus of the left lower extremity. The patient has a history of renal carcinoma. She has history of type 2 diabetes mellitus, hypertension, coronary ar petty disease, neuropathy, degenerative joint disease. Patient had a thrombectomy done by Dr. Scott hr tolerated this procedure well. She is on anticoagulation medication and treating her renal failur e and monitoring for any blood loss. Patient today as I mentioned, she is doing better. Has not wor ked with physical therapy very little yesterday just sitting up by the bed. Today, she denies of any chest pain. She denies of any shortness of breath. She denies of any abdominal pain, nausea, vomit ing. Denies any hesitancy, urgency or pain during urination. She just says she is constipated. PHYSICAL EXAMINATION: VITAL SIGNS: Blood pressure is 139/78, heart rate is 78, respiratory rate 18. She is afebrile and s aturating 95% on room air. GENERAL: Alert and oriented x3. HEENT: Atraumatic, normocephalic. Pupils are equal and reactive to light. Extraocular muscles are intact. Nares clear, no obstruction, no deviation of the septum. CHEST: AP contour is within normal limits. Breasts and nipples are normal, no nipple retraction. HEART: Atrial fibrillation, controlled rate. LUNGS: Very mild crackles over the bases of the lungs, otherwise negative. ABDOMEN: Soft, positive bowel sounds, no hepatosplenomegaly, no masses palpable over the abdomen and no rebound tenderness. EXTREMITIES: No edema, clubbing or cyanosis, just tenderness over the inguinal area where the proced ure was done. LABORATORY DATA: Pending for today. ASSESSMENT AND PLAN: We will ask for physical therapy to continue working with the patient as david arias and will follow with a diagnosis of chest, status post thrombectomy, renal cell carcinoma, anemia , acute on chronic kidney disease, generalized weakness, type 2 diabetes mellitus. Dictated By: NUBIA BREWER/JAYDEN Conf#: [id number] DID#: [id number] CC: ERNESTO MCGARRY MD;*End*
--- NOTE | 2018-07-04 09:14 | PN ---
DATE: 07/04/2018 An 82-year-old female who was admitted for pain of the lower extremities in acute renal failure. Holly garland had thrombectomy on heparin treatments and she is also on hydration, monitoring for renal failur e. The patient overnight, I had multiple calls from the nursing staff that the patient is very lethargic . Family is concerned because of her lethargy yesterday morning. I also spoke to the son who has no t seen her yet, but I had seen her. I explained to her that the patient was doing well in the [facility] and she needed to work with physical therapy and labs were pending. In the evening, multiple phone calls from nurses regarding patient lethargic and has not eaten much and the family was concerned th at vancomycin is making her more lethargic, so the labs were reviewed. She had elevated white count that is why patient was started on vancomycin. Today, patient is again lethargic, responds to my que stions but feels very weak. Overnight she did not have any urine output. Advised the nurse early mo rning hours to put a Odonnell catheter in, scan the bladder and make sure that urine is sent for culture and sensitivity. PHYSICAL EXAMINATION: VITAL SIGNS: Today, blood pressure is 119/58, respiratory rate 16, heart rate is 54 and she is satur ating 99% on 2 liters of oxygen. Her temperature is 99 today. She denies of any chest pain. She de nies of any abdominal pain, and denies of any hesitancy, urgency or pain during urination. PHYSICAL EXAMINATION: Lethargic. HEART: S1, atrial fibrillation, controlled rate. Slow, mid bradycardic with cardiomegaly. LUNGS: Very minimal crackles over the bases of the lungs. Nothing major and poor effort. ABDOMEN: Soft, positive bowel sounds, no hepatosplenomegaly, no masses palpable over the abdomen and no rebound tenderness. EXTREMITIES: No edema, clubbing or cyanosis of the extremities. Tenderness over the inguinal area o cathy the procedure area for the thrombectomy. LABORATORY DATA: Today Chemistry: Sodium is 136, potassium 5.3, BUN is 70, creatinine 2.87 and gluc ose is 238. Hematology, CBC: White blood cells 24.1. Very minimally better than yesterday. Hemogl obin 6.6, dropped again, hematocrit is 21.4 and platelet count is 262. Chest x-ray was negative. No thing major. So I ordered again a Doppler study of the lower extremity regarding the hematoma of the inguinal area postprocedure to rule out any abscess. CT abdomen and pelvis was ordered again today and blood transfusion 2 units and continue monitoring. ASSESSMENT AND PLAN: Acute anemia, acute on chronic renal failure, anuria, renal carcinoma, possible bleed from the hematoma or post-procedure or abscess, sepsis and we will continue evaluating the pat ient. Asked ID specialist to see the patient and will discuss with the supervisor prep for further treat ment. Dictated By: NUBIA TEJEDA MD SB/NTS Conf#: [id number] DID#: [id number] CC: ERNESTO MCGARRY MD;*EndCC*
--- NOTE | 2018-07-04 09:34 | CONS ---
DATE OF ADMISSION: 06/25/2018 DATE OF CONSULTATION: 07/04/2018 TYPE OF CONSULTATION: Infectious disease. REASON FOR CONSULTATION: Antibiotic management. HISTORY OF PRESENT ILLNESS: Quintin Berman is an 82-year-old Citizen Of [place] female. Her problem s include congestive heart failure, atrial fibrillation, renal tumor. She was discharged recently fr om the hospital. They did not want any further procedures for kidney cancer. 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 Patient came in on the with left lower extremity pain with severe cramping a nd shooting pain. She has a history of neuropathy of lower extremities. She has a past medical hist ory of chronic renal disease as noted, status post partial nephrectomy of the left kidney 11 years ag o. She has cardiomyopathy with ejection fraction of 50% and paroxysmal atrial fibrillation with tric uspid valve disease. She has a history of coronary artery bypass many years ago, history of renal ca rcinoma as noted, she has gastroesophageal reflux disease and hypertension. On admission, white coun t was 11.3, H and H 10.2 and 32.5, platelet count 257,000. BUN and creatinine 67/3.95. She presente d with peripheral arterial disease as noted. She was seen by Dr. Dawson who found she had periphe ral vascular disease, will need an angiogram, creatinine is 3.95. Moderate ischemia to the left lowe r extremity. No ulceration. The patient improved on anticoagulation, ischemic may be related to an acute embolic event from embolization from . May need a thrombectomy. On the , her white c ount was 8.5. She has cold leg below the knee with severe pain that started the day she was admitted . Patient had a thrombectomy by Dr. Dawson on the . On the her white count was 20,000, st atus post femoral thrombectomy and acute on chronic renal failure, atrial fibrillation. The patient was seen by Dr. Martel, prominent 2.7 cm soft tissue lobulation in the inferior left renal pole ad jacent to surgical clips, possibly reflecting postsurgical changes or recurrent neoplasm. PHYSICAL EXAMINATION: GENERAL: The patient is alert, responsive, in no acute distress. VITAL SIGNS: Stable. CHEST: Decreased breath sounds at the bases. HEART: Without murmur or gallop. ABDOMEN: Soft, nontender, without organosplenomegaly or masses. EXTREMITIES: She still has a cold left lower extremity, though she is doing much better according to history. RECTAL AND GENITAL: Deferred. NEUROLOGIC: No focal neurological abnormality. Blood cultures are negative. She is on vancomycin. We will continue her on current therapy. I will dictate my findings to Dr. King. Dictated By: TORI IRVING MD HOPE/NTS Conf#: [id number] DID#: [id number] CC: JEMAL SHAIKH MD; NUBIA KING MD;*EndCC*
[2018-07-04] MEDS ORDERED: FUROSEMIDE 20 MG INJ IV ONE (11:00)
--- NOTE | 2018-07-04 12:27 | CONS ---
Assessment/Plan Assessment/Plan Hospital Course (Demo Recall) Occlusive left common femoral artery status post thrombectomy Acute kidney injury Acute decompensated systolic congestive heart failure-improving Cardia myopathy with left ventricular ejection fraction 50% Paroxysmal atrial fibrillation Echo dense structure seen by tricuspid valve, right atrium and IVC CAD with history of CABG History of renal carcinoma status post nephrectomy approximately 8 years ago Hypertension Diabetes Acute blood loss anemia -Patient is status post thrombectomy. She has been transitioned to oral anticoagulant. -Hemoglobin lower today, plan for blood transfusion. Would DC aspirin -Patient with paroxysmal atrial fibrillation with bradycardia, we have stop Core g, decreased dose of amiodarone to daily -There is pulmonary vascular congestion seen on chest x-ray as well as crackles at the base of the lung examination. Patient has been ordered 20 mg of IV Lasix today, would give spot diuretics as needed given renal dysfunction. -Continue to hold any nephrotoxic medications, patient being followed by nephrology. Consultation Date/Type/Reason Admit Date/Time Jun 25, 2018 at 06:24 Initial Consult Date 06/25/18 Type of Consult Cardiology Requesting Provider: NUBIA TEJEDA MD Date/Time of Note DATE: 07/04/18 TIME: 12:24 24 HR Interval Summary Free Text/Dictation More tired today with physical therapy. No shortness of breath Exam/Review of Systems Vital Signs Vitals Vital Signs Date Temp Pulse Resp B/P (MAP) Pulse Ox O2 O2 Flow FiO2 Time Delivery Rate 07/04/18 80 12:17 07/04/18 98.3 18 106/48 97 Nasal 11:11 (67) Cannula 07/04/18 2.0 09:55 Intake and Output 07/03/18 07/03/18 07/04/18 1515:00 23:00 07:00 IntakeIntake Total 510 ml 660 ml BalanceBalance 510 ml 660 ml Exam Constitutional: alert, oriented (Undergoing physical therapy) Respiratory: other (Coarse breath sounds, crackles at the base) Cardiovascular: regular rate and rhythm (With intermittent irregularities) Gastrointestinal: soft, non-tender, bowel sounds Extremities: edema Labs Result Diagram: 07/04/18 0532 07/04/18 0532 Results 24hrs Laboratory Tests Test 07/03/18 12:44 07/03/18 17:37 07/03/18 19:09 07/03/18 20:41 Bedside Glucose 291 H 230 H 226 H White Blood Count 25.5 #H Red Blood Count 2.62 L Hemoglobin 7.5 L Hematocrit 24.2 L Mean Corpuscular Volume 92.4 Mean Corpuscular 28.6 L Hemoglobin Mean Corpuscular 31.0 L Hemoglobin Concent Red Cell Distribution 13.5 Width Platelet Count 277 Mean Platelet Volume 11.6 H Immature Granulocytes % 2.300 H Neutrophils % Segmented Neutrophils 84 H % (Manual) Band Neutrophils % 6 H (Manual) Lymphocytes % Lymphocytes % (Manual) 7 L Reactive Lymphocytes 1 H % (Manual) Monocytes % Monocytes % (Manual) 2 Eosinophils % Basophils % Nucleated Red Blood 0.0 Cells % Immature Granulocytes # 0.600 H Neutrophils # Neutrophils # (Manual) 21.8 H Band Neutrophils # 1.5 H Lymphocytes (Manual) 1.7 Lymphocytes # Reactive Lymphocytes # 0.2 H Monocytes # Monocytes # (Manual) 0.5 Eosinophils # Basophils # Nucleated Red Blood Cells # Pathologist Y Review (Hematology) Platelet Estimate NORMAL Polychromasia 3+ Anisocytosis 1+ Microcytosis 1+ Sodium Level 135 Potassium Level 6.1 *H Chloride Level 98 Carbon Dioxide Level 27 Anion Gap 10 Blood Urea Nitrogen 62 H Creatinine 2.60 H Est Glomerular Filtrat Rate mL/min Glucose Level 243 H Calcium Level 9.1 Test 07/03/18 23:07 07/04/18 01:29 07/04/18 02:14 07/04/18 05:32 Bedside Glucose 199 238 H Sodium Level 136 136 Potassium Level 5.7 H 5.3 H Chloride Level 103 101 Carbon Dioxide Level 26 26 Anion Gap 7 9 Blood Urea Nitrogen 69 H 70 H Creatinine 2.87 H 2.87 H Est Glomerular Filtrat Rate mL/min Glucose Level 195 141 # Calcium Level 9.2 9.1 White Blood Count 24.1 H Red Blood Count 2.32 L Hemoglobin 6.6 *L Hematocrit 21.4 L Mean Corpuscular Volume 92.2 Mean Corpuscular 28.4 L Hemoglobin Mean Corpuscular 30.8 L Hemoglobin Concent Red Cell Distribution 13.6 Width Platelet Count 262 Mean Platelet Volume 11.9 H Immature Granulocytes % 1.700 H Neutrophils % 81.1 H Lymphocytes % 9.1 L Monocytes % 7.8 Eosinophils % 0.1 Basophils % 0.2 Nucleated Red Blood 0.1 H Cells % Immature Granulocytes # 0.420 H Neutrophils # 19.6 H Lymphocytes # 2.2 Monocytes # 1.9 H Eosinophils # 0.0 Basophils # 0.1 Nucleated Red Blood 0.0 Cells # B-Type Natriuretic 5190 H Peptide Test 07/04/18 08:46 07/04/18 12:17 Bedside Glucose 135 233 H Medications Medications Current Medications Aspirin (Halfprin) 81 mg DAILY PO Last administered on 07/04/18 09:00; Admin Dose 81 MG; Start 06/25/18 at 11:30 Atorvastatin Calcium (Lipitor) 40 mg QHS PO Last administered on 07/03/18 20:45; Admin Dose 40 MG; Start 06/25/18 at 21:00 Carvedilol (Coreg) 3.125 mg BID PO Last administered on 07/03/18 09:14; Admin Dose 3.125 MG; Start 06/25/18 at 11:30; Status Hold Docusate Sodium (Colace) 100 mg TID PO Last administered on 07/03/18 20:45; Admin Dose 100 MG; Start 06/25/18 at 13:00 Miscellaneous Information 1 ea NOTE XX ; Start 06/25/18 at 11:30 Glucose (Glutose) 15 gm Q15M PRN PO DECREASED GLUCOSE; Start 06/25/18 at 11:30 Glucose (Glutose) 22.5 gm Q15M PRN PO DECREASED GLUCOSE; Start 06/25/18 at 11:30 Dextrose (D50w Syringe) 25 ml Q15M PRN IV DECREASED GLUCOSE; Start 06/25/18 at 11:30 Dextrose (D50w Syringe) 50 ml Q15M PRN IV DECREASED GLUCOSE; Start 06/25/18 at 11:30 Glucagon (Glucagen) 1 mg Q15M PRN IM DECREASED GLUCOSE; Start 06/25/18 at 11:30 Glucose (Glutose) 15 gm Q15M PRN BUCCAL DECREASED GLUCOSE; Start 06/25/18 at 11:30 Diagnostic Test (Pha) (Accu-Chek) 1 ea 02 XX Last administered on 07/04/18 01:30; Admin Dose 1 EA; Start 06/26/18 at 02:00 Ondansetron HCl (Zofran Inj) 4 mg Q4H PRN IV NAUSEA AND/OR VOMITING Last administered on 07/03/18 19:04; Admin Dose 4 MG; Start 06/28/18 at 01:30 Clonidine (Catapres) 0.1 mg BID PRN PO SBP > 180 Last administered on 06/30/18 23:33; Admin Dose 0.1 MG; Start 06/28/18 at 14:00 Acetaminophen (Tylenol Tab) 650 mg Q4H PRN PO MILD PAIN(1-3)OR ELEVATED TEMP Last administered on 07/03/18 12:55; Admin Dose 650 MG; Start 06/29/18 at 09:30 Gabapentin (Neurontin) 300 mg HS PO Last administered on 07/03/18 20:45; Admin Dose 300 MG; Start 06/29/18 at 21:00 Pantoprazole (Protonix Tab) 40 mg DAILY@06 PO Last administered on 07/03/18 06:40; Admin Dose 40 MG; Start 06/30/18 at 06:00 Miscellaneous Information (Pending Santyl Order For Wound Care) This patient green... PRN PRN XX WOUND CARE; Start 06/30/18 at 08:00 Collagenase (Santyl) 1 applic DAILY TOP Last administered on 07/04/18 09:00; Admin Dose 1 APPLIC; Start 07/02/18 at 09:00 Epoetin Alejo-epbx (Retacrit) 6,000 unit TuThSa@1700 SC Last administered on 07/03/18 18:15; Admin Dose 6,000 UNIT; Start 07/01/18 at 17:00 Lorazepam (Ativan) 0.5 mg Q8H PRN PO ANXIETY; Start 07/01/18 at 16:30 Morphine Sulfate (morphine) 6 mg Q4H PRN PO SEVERE PAIN LEVEL 7-10; Start 07/01/18 at 16:30 Insulin Aspart (Novolog Insulin Pen) NOVOLOG *MODERATE* ALGORITHM WITH MEALS BEDTIME SC Last administered on 07/03/18 21:25; Admin Dose 2 UNIT; Start 07/01/18 at 21:00 Magnesium Hydroxide (Milk Of Mag) 30 ml BID PO Last administered on 07/04/18 09:00; Admin Dose 30 ML; Start 07/02/18 at 09:00 Vancomycin HCl (Vanco Iv Per Pharmacy) VANCOMYCIN PER PHARMACY PER PROTOCOL XX ; Start 07/02/18 at 12:30 Apixaban (Eliquis) 2.5 mg BID PO Last administered on 07/04/18 09:00; Admin Dose 2.5 MG; Start 07/02/18 at 21:00 Vancomycin HCl 250 ml @ 125 mls/hr Q36H IVPB Last administered on 07/04/18 01:30; Admin Dose 125 MLS/HR; Start 07/04/18 at 02:00 Insulin Glargine (Lantus) 50 units BID SC Last administered on 07/04/18 09:00; Admin Dose 50 UNITS; Start 07/02/18 at 21:00 Insulin Aspart (Novolog Insulin Pen) 6 unit WITH MEALS SC Last administered on 07/03/18 17:43; Admin Dose 6 UNIT; Start 07/03/18 at 07:55 Amiodarone HCl (Cordarone) 200 mg DAILY PO Last administered on 07/04/18 09:00; Admin Dose 200 MG; Start 07/04/18 at 09:00 Miscellaneous Information (*Rx Drug Level Order Reminder*) VANCO TROUGH @ 1,300 ON... 1300 ONCE XX ; Start 07/05/18 at 13:00; Stop 07/05/18 at 13:01 Alex Chávez DO Jul 04, 2018 12:27
--- NOTE | 2018-07-04 13:41 | CONS ---
Consultation Date/Type/Reason Admit Date/Time Jun 25, 2018 at 06:24 Type of Consult Nephrology Date/Time of Note DATE: 07/04/18 TIME: 13:38 Hx of Present Illness left leg thrombectomy PAD+ SHE SAYS SHE FEELS WELL NO COMPLAINTS Additional Comments I SPOKE TO DAUGHTER AT BEDSIDE AND ALSO SPOKE TO NURSE CINDA AT BEDSIDE DAILY LABS RECEIVED KAYEXALATE RENAL DIET Exam/Review of Systems Vital Signs Vitals Vital Signs Date Temp Pulse Resp B/P (MAP) Pulse Ox O2 O2 Flow FiO2 Time Delivery Rate 07/04/18 80 12:17 07/04/18 98.3 18 106/48 97 Nasal 11:11 (67) Cannula 07/04/18 2.0 09:55 Intake and Output 07/03/18 07/03/18 07/04/18 1515:00 23:00 07:00 IntakeIntake Total 510 ml 660 ml BalanceBalance 510 ml 660 ml Labs Result Diagram: 07/04/18 0532 07/04/18 0532 Results 24hrs Laboratory Tests Test 07/03/18 17:37 07/03/18 19:09 07/03/18 20:41 07/03/18 23:07 Bedside Glucose 230 H 226 H 199 White Blood Count 25.5 #H Red Blood Count 2.62 L Hemoglobin 7.5 L Hematocrit 24.2 L Mean Corpuscular Volume 92.4 Mean Corpuscular 28.6 L Hemoglobin Mean Corpuscular 31.0 L Hemoglobin Concent Red Cell Distribution 13.5 Width Platelet Count 277 Mean Platelet Volume 11.6 H Immature Granulocytes % 2.300 H Neutrophils % Segmented Neutrophils 84 H % (Manual) Band Neutrophils % 6 H (Manual) Lymphocytes % Lymphocytes % (Manual) 7 L Reactive Lymphocytes 1 H % (Manual) Monocytes % Monocytes % (Manual) 2 Eosinophils % Basophils % Nucleated Red Blood 0.0 Cells % Immature Granulocytes # 0.600 H Neutrophils # Neutrophils # (Manual) 21.8 H Band Neutrophils # 1.5 H Lymphocytes (Manual) 1.7 Lymphocytes # Reactive Lymphocytes # 0.2 H Monocytes # Monocytes # (Manual) 0.5 Eosinophils # Basophils # Nucleated Red Blood Cells # Pathologist Y Review (Hematology) Platelet Estimate NORMAL Polychromasia 3+ Anisocytosis 1+ Microcytosis 1+ Sodium Level 135 Potassium Level 6.1 *H Chloride Level 98 Carbon Dioxide Level 27 Anion Gap 10 Blood Urea Nitrogen 62 H Creatinine 2.60 H Est Glomerular Filtrat Rate mL/min Glucose Level 243 H Calcium Level 9.1 Test 07/04/18 01:29 07/04/18 02:14 07/04/18 05:32 07/04/18 08:46 Bedside Glucose 238 H 135 Sodium Level 136 136 Potassium Level 5.7 H 5.3 H Chloride Level 103 101 Carbon Dioxide Level 26 26 Anion Gap 7 9 Blood Urea Nitrogen 69 H 70 H Creatinine 2.87 H 2.87 H Est Glomerular Filtrat Rate mL/min Glucose Level 195 141 # Calcium Level 9.2 9.1 White Blood Count 24.1 H Red Blood Count 2.32 L Hemoglobin 6.6 *L Hematocrit 21.4 L Mean Corpuscular Volume 92.2 Mean Corpuscular 28.4 L Hemoglobin Mean Corpuscular 30.8 L Hemoglobin Concent Red Cell Distribution 13.6 Width Platelet Count 262 Mean Platelet Volume 11.9 H Immature Granulocytes % 1.700 H Neutrophils % 81.1 H Lymphocytes % 9.1 L Monocytes % 7.8 Eosinophils % 0.1 Basophils % 0.2 Nucleated Red Blood 0.1 H Cells % Immature Granulocytes # 0.420 H Neutrophils # 19.6 H Lymphocytes # 2.2 Monocytes # 1.9 H Eosinophils # 0.0 Basophils # 0.1 Nucleated Red Blood 0.0 Cells # B-Type Natriuretic 5190 H Peptide Test 07/04/18 12:17 Bedside Glucose 233 H Medications Medications Current Medications Atorvastatin Calcium (Lipitor) 40 mg QHS PO Last administered on 07/03/18at 20:45; Admin Dose 40 MG; Start 06/25/18 at 21:00 Docusate Sodium (Colace) 100 mg TID PO Last administered on 07/03/18at 20:45; Admin Dose 100 MG; Start 06/25/18 at 13:00 Miscellaneous Information 1 ea NOTE XX ; Start 06/25/18 at 11:30 Glucose (Glutose) 15 gm Q15M PRN PO DECREASED GLUCOSE; Start 06/25/18 at 11:30 Glucose (Glutose) 22.5 gm Q15M PRN PO DECREASED GLUCOSE; Start 06/25/18 at 11:30 Dextrose (D50w Syringe) 25 ml Q15M PRN IV DECREASED GLUCOSE; Start 06/25/18 at 11:30 Dextrose (D50w Syringe) 50 ml Q15M PRN IV DECREASED GLUCOSE; Start 06/25/18 at 11:30 Glucagon (Glucagen) 1 mg Q15M PRN IM DECREASED GLUCOSE; Start 06/25/18 at 11:30 Glucose (Glutose) 15 gm Q15M PRN BUCCAL DECREASED GLUCOSE; Start 06/25/18 at 11:30 Diagnostic Test (Pha) (Accu-Chek) 1 ea 02 XX Last administered on 07/04/18 01:30; Admin Dose 1 EA; Start 06/26/18 at 02:00 Ondansetron HCl (Zofran Inj) 4 mg Q4H PRN IV NAUSEA AND/OR VOMITING Last administered on 07/03/18 19:04; Admin Dose 4 MG; Start 06/28/18 at 01:30 Clonidine (Catapres) 0.1 mg BID PRN PO SBP > 180 Last administered on 06/30/18 23:33; Admin Dose 0.1 MG; Start 06/28/18 at 14:00 Acetaminophen (Tylenol Tab) 650 mg Q4H PRN PO MILD PAIN(1-3)OR ELEVATED TEMP Last administered on 07/03/18 12:55; Admin Dose 650 MG; Start 06/29/18 at 09:30 Gabapentin (Neurontin) 300 mg HS PO Last administered on 07/03/18 20:45; Admin Dose 300 MG; Start 06/29/18 at 21:00 Pantoprazole (Protonix Tab) 40 mg DAILY@06 PO Last administered on 07/03/18 06:40; Admin Dose 40 MG; Start 06/30/18 at 06:00 Miscellaneous Information (Pending Santyl Order For Wound Care) This patient green... PRN PRN XX WOUND CARE; Start 06/30/18 at 08:00 Collagenase (Santyl) 1 applic DAILY TOP Last administered on 07/04/18 09:00; Admin Dose 1 APPLIC; Start 07/02/18 at 09:00 Epoetin Alejo-epbx (Retacrit) 6,000 unit TuThSa@1700 SC Last administered on 07/03/18 18:15; Admin Dose 6,000 UNIT; Start 07/01/18 at 17:00 Lorazepam (Ativan) 0.5 mg Q8H PRN PO ANXIETY; Start 07/01/18 at 16:30 Morphine Sulfate (morphine) 6 mg Q4H PRN PO SEVERE PAIN LEVEL 7-10; Start 07/01/18 at 16:30 Insulin Aspart (Novolog Insulin Pen) NOVOLOG *MODERATE* ALGORITHM WITH MEALS BEDTIME SC Last administered on 07/03/18 21:25; Admin Dose 2 UNIT; Start 07/01/18 at 21:00 Magnesium Hydroxide (Milk Of Mag) 30 ml BID PO Last administered on 07/04/18 09:00; Admin Dose 30 ML; Start 07/02/18 at 09:00 Vancomycin HCl (Vanco Iv Per Pharmacy) VANCOMYCIN PER PHARMACY PER PROTOCOL XX ; Start 07/02/18 at 12:30 Apixaban (Eliquis) 2.5 mg BID PO Last administered on 07/04/18 09:00; Admin Dose 2.5 MG; Start 07/02/18 at 21:00 Vancomycin HCl 250 ml @ 125 mls/hr Q36H IVPB Last administered on 07/04/18 01:30; Admin Dose 125 MLS/HR; Start 07/04/18 at 02:00 Insulin Glargine (Lantus) 50 units BID SC Last administered on 07/04/18 09:00; Admin Dose 50 UNITS; Start 07/02/18 at 21:00 Insulin Aspart (Novolog Insulin Pen) 6 unit WITH MEALS SC Last administered on 07/03/18 17:43; Admin Dose 6 UNIT; Start 07/03/18 at 07:55 Amiodarone HCl (Cordarone) 200 mg DAILY PO Last administered on 07/04/18 09:00; Admin Dose 200 MG; Start 07/04/18 at 09:00 Miscellaneous Information (*Rx Drug Level Order Reminder*) VANCO TROUGH @ 1,300 ON... 1300 ONCE XX ; Start 07/05/18 at 13:00; Stop 07/05/18 at 13:01 TORRI BENSON MD Jul 04, 2018 13:41
--- NOTE | 2018-07-04 16:40 | PN ---
Date/Time of Note Date/Time of Note DATE: 07/04/18 TIME: 16:37 Assessment/Plan Lines/Catheters IV Catheter Type (from Nrsg): Peripheral IV Odonnell in Place (from Nrsg): No Assessment/Plan Assessment/Plan SP Embolectomy LLE LLE Hematoma Would stop anticoagulation for 2 to 3 days transfuse PRBC will monitor the HGB levels Subjective 24 Hr Interval Summary Constitutional: improved Pain Control: mild Exam/Review of Systems Vital Signs Vitals Vital Signs Date Temp Pulse Resp B/P (MAP) Pulse Ox O2 O2 Flow FiO2 Time Delivery Rate 07/04/18 78 16:13 07/04/18 98.2 18 156/74 97 Nasal 15:12 (101) Cannula 07/04/18 2.0 09:55 Intake and Output 07/03/18 07/03/18 07/04/18 1515:00 23:00 07:00 IntakeIntake Total 510 ml 660 ml BalanceBalance 510 ml 660 ml Exam Eyes: nl conjunctiva, EOMI, nl lids, nl sclera ENMT: No nl external ears & nose, No nl lips & teeth, No nl nasal mucosa & septum, No mucosa pink and moist, No intubated, No tympanic membranes, No other Neck: supple, non-tender Respiratory: clear to auscultation, normal air movement Cardiovascular: systolic murmur Gastrointestinal: soft, nl liver, spleen, non-tender Musculoskeletal: nl extremities to inspection, nl gait and stance Results Free Text/Dictation Left leg with swelling no sign of ischemia Result Diagram: 07/04/18 0532 07/04/18 0532 KELLEY GARY MD Jul 04, 2018 16:40
[2018-07-04] MEDS: ATORVASTATIN 40 MG TAB PO SCH (21:14)
[2018-07-04] MEDS: GABAPENTIN 300 MG CAP PO SCH (21:14)
--- NOTE | 2018-07-04 22:09 | CONS ---
Assessment/Plan Assessment/Plan Hospital Course (Demo Recall) History of renal carcinoma status post nephrectomy focally prominent 2.7 cm soft tissue lobulation in the inferior left renal lower pole adjacent to surgical clips, possibly reflecting postsurgical change or recurrent neoplasm. Enhancing lobulated mass in the lower pole left kidney with no extension into the left renal vein. PET/CT OUTPT CT AP- REVIEWED can not give contrast PT REFUSED MRI LDH- NOTED F-UP OUTPT ANEMIA- WORSE MONITOR CLOSELY OBSERVE FOR BLEEDING TRANSFUSE PRBC echocardiogram- echogenic structure in the right atrium, as well as attached to the tricuspid valve as well as the IVC. Differential includes vegetation, malignancy or thrombus. The IVC is focally distended at the inferior cavoatrial junction, containing an 8 mm metallic focus which may lie within intravenous tumor mass. Evaluation is quite limited in the absence of intravenous contrast. 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 Coarse calcifications in the left breast parenchyma, most likely benign. diagnostic mammography as outpt Acute congestive heart failure exacerbation. Acute sepsis, possible urinary tract infection. Elevated lactate levels. Type 2 diabetes mellitus, uncontrolled. Hyperglycemia. Diabetic neuropathy. Gastroesophageal reflux disease. Possible transient ischemic attacks. Hypertension, uncontrolled Renal failure with creatinine of 3.95 INTERMITTENT atrial fibrillation Consultation Date/Type/Reason Admit Date/Time Jun 25, 2018 at 06:24 Initial Consult Date 06/26/18 Type of Consult [facility] Requesting Provider: NUBIA TEJEDA MD Date/Time of Note DATE: 07/04/18 TIME: 22:07 24 HR Interval Summary Free Text/Dictation ALL NOTED NAD Exam/Review of Systems Exam Vitals Vital Signs Date Temp Pulse Resp B/P (MAP) Pulse Ox O2 O2 Flow FiO2 Time Delivery Rate 07/04/18 98.0 82 18 158/64 100 20:23 (95) 07/04/18 Nasal 15:12 Cannula 07/04/18 2.0 09:55 Intake and Output 07/03/18 07/03/18 07/04/18 1515:00 23:00 07:00 IntakeIntake Total 510 ml 660 ml BalanceBalance 510 ml 660 ml Exam Constitutional: alert, oriented Psych: no complaints Neck: supple Respiratory: crackles/rales Cardiovascular: regular rate and rhythm, systolic murmur Gastrointestinal: soft EXT- + PS Results Result Diagram: 07/04/18 0532 07/04/18 0532 Results 24hrs Laboratory Tests Test 07/03/18 23:07 07/04/18 01:29 07/04/18 02:14 07/04/18 05:32 Bedside Glucose 199 238 H Sodium Level 136 136 Potassium Level 5.7 H 5.3 H Chloride Level 103 101 Carbon Dioxide Level 26 26 Anion Gap 7 9 Blood Urea Nitrogen 69 H 70 H Creatinine 2.87 H 2.87 H Est Glomerular Filtrat Rate mL/min Glucose Level 195 141 # Calcium Level 9.2 9.1 White Blood Count 24.1 H Red Blood Count 2.32 L Hemoglobin 6.6 *L Hematocrit 21.4 L Mean Corpuscular Volume 92.2 Mean Corpuscular 28.4 L Hemoglobin Mean Corpuscular 30.8 L Hemoglobin Concent Red Cell Distribution 13.6 Width Platelet Count 262 Mean Platelet Volume 11.9 H Immature Granulocytes % 1.700 H Neutrophils % 81.1 H Lymphocytes % 9.1 L Monocytes % 7.8 Eosinophils % 0.1 Basophils % 0.2 Nucleated Red Blood 0.1 H Cells % Immature Granulocytes # 0.420 H Neutrophils # 19.6 H Lymphocytes # 2.2 Monocytes # 1.9 H Eosinophils # 0.0 Basophils # 0.1 Nucleated Red Blood 0.0 Cells # B-Type Natriuretic 5190 H Peptide Test 07/04/18 08:46 07/04/18 12:17 07/04/18 18:00 07/04/18 18:06 Bedside Glucose 135 233 H 172 Urine Color YELLOW Urine Clarity CLOUDY A Urine pH 5.0 Urine Specific [place] 1.016 Urine Ketones NEGATIVE Urine Nitrite NEGATIVE Urine Bilirubin NEGATIVE Urine Urobilinogen NEGATIVE Urine Leukocyte Esterase 2+ H Urine Microscopic RBC 169 H Urine Microscopic WBC 169 H Urine Squamous MODERATE Epithelial Cells Urine Transitional MODERATE Epithelial Cells Urine Mucus FEW A Urine Yeast (Budding) MANY A Urine Hemoglobin 2+ H Urine Glucose NEGATIVE Urine Total Protein 2+ H Test 07/04/18 21:22 Bedside Glucose 173 Medications Medication Current Medications Atorvastatin Calcium (Lipitor) 40 mg QHS PO Last administered on 07/03/18at 20:45; Admin Dose 40 MG; Start 06/25/18 at 21:00 Docusate Sodium (Colace) 100 mg TID PO Last administered on 07/04/18at 13:00; Admin Dose 100 MG; Start 06/25/18 at 13:00 Miscellaneous Information 1 ea NOTE XX ; Start 06/25/18 at 11:30 Glucose (Glutose) 15 gm Q15M PRN PO DECREASED GLUCOSE; Start 06/25/18 at 11:30 Glucose (Glutose) 22.5 gm Q15M PRN PO DECREASED GLUCOSE; Start 06/25/18 at 11:30 Dextrose (D50w Syringe) 25 ml Q15M PRN IV DECREASED GLUCOSE; Start 06/25/18 at 11:30 Dextrose (D50w Syringe) 50 ml Q15M PRN IV DECREASED GLUCOSE; Start 06/25/18 at 11:30 Glucagon (Glucagen) 1 mg Q15M PRN IM DECREASED GLUCOSE; Start 06/25/18 at 11:30 Glucose (Glutose) 15 gm Q15M PRN BUCCAL DECREASED GLUCOSE; Start 06/25/18 at 11:30 Diagnostic Test (Pha) (Accu-Chek) 1 ea 02 XX Last administered on 07/04/18at 01:30; Admin Dose 1 EA; Start 06/26/18 at 02:00 Ondansetron HCl (Zofran Inj) 4 mg Q4H PRN IV NAUSEA AND/OR VOMITING Last administered on 07/03/18 19:04; Admin Dose 4 MG; Start 06/28/18 at 01:30 Clonidine (Catapres) 0.1 mg BID PRN PO SBP > 180 Last administered on 06/30/18at 23:33; Admin Dose 0.1 MG; Start 06/28/18 at 14:00 Acetaminophen (Tylenol Tab) 650 mg Q4H PRN PO MILD PAIN(1-3)OR ELEVATED TEMP Last administered on 07/03/18 12:55; Admin Dose 650 MG; Start 06/29/18 at 09:30 Gabapentin (Neurontin) 300 mg HS PO Last administered on 07/03/18 20:45; Admin Dose 300 MG; Start 06/29/18 at 21:00 Pantoprazole (Protonix Tab) 40 mg DAILY@06 PO Last administered on 07/03/18 06:40; Admin Dose 40 MG; Start 06/30/18 at 06:00 Miscellaneous Information (Pending [facility] Order For Wound Care) This patient green... PRN PRN XX WOUND CARE; Start 06/30/18 at 08:00 Collagenase (Santyl) 1 applic DAILY TOP Last administered on 07/04/18 09:00; Admin Dose 1 APPLIC; Start 07/02/18 at 09:00 Epoetin Alejo-epbx (Retacrit) 6,000 unit TuThSa@1700 SC Last administered on 07/03/18 18:15; Admin Dose 6,000 UNIT; Start 07/01/18 at 17:00 Lorazepam (Ativan) 0.5 mg Q8H PRN PO ANXIETY; Start 07/01/18 at 16:30 Morphine Sulfate (morphine) 6 mg Q4H PRN PO SEVERE PAIN LEVEL 7-10; Start 07/01/18 at 16:30 Insulin Aspart (Novolog Insulin Pen) NOVOLOG *MODERATE* ALGORITHM WITH MEALS BEDTIME SC Last administered on 07/04/18 18:32; Admin Dose 2 UNIT; Start 07/01/18 at 21:00 Magnesium Hydroxide (Milk Of Mag) 30 ml BID PO Last administered on 07/04/18 09:00; Admin Dose 30 ML; Start 07/02/18 at 09:00 Vancomycin HCl (Vanco Iv Per Pharmacy) VANCOMYCIN PER PHARMACY PER PROTOCOL XX ; Start 07/02/18 at 12:30 Apixaban (Eliquis) 2.5 mg BID PO Last administered on 07/04/18 09:00; Admin Dose 2.5 MG; Start 07/02/18 at 21:00 Vancomycin HCl 250 ml @ 125 mls/hr Q36H IVPB Last administered on 07/04/18 01:30; Admin Dose 125 MLS/HR; Start 07/04/18 at 02:00; Status Hold Insulin Glargine (Lantus) 50 units BID SC Last administered on 07/04/18 09:00; Admin Dose 50 UNITS; Start 07/02/18 at 21:00 Insulin Aspart (Novolog Insulin Pen) 6 unit WITH MEALS SC Last administered on 07/04/18 18:32; Admin Dose 6 UNIT; Start 07/03/18 at 07:55 Amiodarone HCl (Cordarone) 200 mg DAILY PO Last administered on 07/04/18 09:00; Admin Dose 200 MG; Start 07/04/18 at 09:00 JOSÉ FRANZ MD Jul 04, 2018 22:09
[2018-07-05] VITALS (12 sets, daily range): BP systolic 107–171; BP diastolic 54–89; PULSE 76–101; RESP 17–20
[2018-07-05] MEDS: ACETAMINOPHEN 325 MG TAB PO PRN ×2 (01:36→15:37)
[2018-07-05] MEDS: ACCU-CHEK XX SCH (01:37)
[2018-07-05] MEDS: PANTOPRAZOLE (EC) 40 MG TAB PO SCH (06:22)
[2018-07-05] MEDS: INSULIN ASPART [NOVOLOG] 3 ML PEN SC SCH ×7 (07:55→21:00)
--- NOTE | 2018-07-05 08:53 | CONS ---
Assessment/Plan Assessment/Plan Hospital Course (Demo Recall) History of renal carcinoma status post nephrectomy focally prominent 2.7 cm soft tissue lobulation in the inferior left renal lower pole adjacent to surgical clips, possibly reflecting postsurgical change or recurrent neoplasm. Enhancing lobulated mass in the lower pole left kidney with no extension into the left renal vein. PET/CT OUTPT CT AP- REVIEWED can not give contrast PT REFUSED MRI LDH- NOTED F-UP OUTPT ANEMIA- WORSE MONITOR CLOSELY OBSERVE FOR BLEEDING TRANSFUSE PRBC echocardiogram- echogenic structure in the right atrium, as well as attached to the tricuspid valve as well as the IVC. Differential includes vegetation, malignancy or thrombus. The IVC is focally distended at the inferior cavoatrial junction, containing an 8 mm metallic focus which may lie within intravenous tumor mass. Evaluation is quite limited in the absence of intravenous contrast. 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 Coarse calcifications in the left breast parenchyma, most likely benign. diagnostic mammography as outpt Acute congestive heart failure exacerbation. Acute sepsis, possible urinary tract infection. Elevated lactate levels. Type 2 diabetes mellitus, uncontrolled. Hyperglycemia. Diabetic neuropathy. Gastroesophageal reflux disease. Possible transient ischemic attacks. Hypertension, uncontrolled Renal failure with creatinine of 3.95 INTERMITTENT atrial fibrillation Consultation Date/Type/Reason Admit Date/Time Jun 25, 2018 at 06:24 Initial Consult Date 06/26/18 Type of Consult [facility] Requesting Provider: NUBIA ETJEDA MD Date/Time of Note DATE: 07/05/18 TIME: 08:52 24 HR Interval Summary Free Text/Dictation ALL NOTED NAD Exam/Review of Systems Exam Vitals Vital Signs Date Temp Pulse Resp B/P (MAP) Pulse Ox O2 O2 Flow FiO2 Time Delivery Rate 07/05/18 85 08:12 07/05/18 98.0 17 171/89 96 07:46 (116) 07/05/18 2.0 05:27 07/04/18 Nasal 21:00 Cannula Intake and Output 07/04/18 07/04/18 07/05/18 1515:00 23:00 07:00 IntakeIntake Total 510 ml 200 ml BalanceBalance 510 ml 200 ml Exam Constitutional: alert, oriented Psych: no complaints Neck: supple Respiratory: crackles/rales Cardiovascular: regular rate and rhythm, systolic murmur Gastrointestinal: soft EXT- + PS Results Result Diagram: 07/04/18 0532 07/04/18 0532 Results 24hrs Laboratory Tests Test 07/04/18 12:17 07/04/18 18:00 07/04/18 18:06 07/04/18 21:22 Bedside Glucose 233 H 172 173 Urine Color YELLOW Urine Clarity CLOUDY A Urine pH 5.0 Urine Specific [place] 1.016 Urine Ketones NEGATIVE Urine Nitrite NEGATIVE Urine Bilirubin NEGATIVE Urine Urobilinogen NEGATIVE Urine Leukocyte Esterase 2+ H Urine Microscopic RBC 169 H Urine Microscopic WBC 169 H Urine Squamous MODERATE Epithelial Cells Urine Transitional MODERATE Epithelial Cells Urine Mucus FEW A Urine Yeast (Budding) MANY A Urine Hemoglobin 2+ H Urine Glucose NEGATIVE Urine Total Protein 2+ H Test 07/05/18 01:35 07/05/18 08:20 Bedside Glucose 112 100 Medications Medication Current Medications Atorvastatin Calcium (Lipitor) 40 mg QHS PO Last administered on 07/04/18at 21:14; Admin Dose 40 MG; Start 06/25/18 at 21:00 Docusate Sodium (Colace) 100 mg TID PO Last administered on 07/04/18at 21:13; Admin Dose 100 MG; Start 06/25/18 at 13:00 Miscellaneous Information 1 ea NOTE XX ; Start 06/25/18 at 11:30 Glucose (Glutose) 15 gm Q15M PRN PO DECREASED GLUCOSE; Start 06/25/18 at 11:30 Glucose (Glutose) 22.5 gm Q15M PRN PO DECREASED GLUCOSE; Start 06/25/18 at 11:30 Dextrose (D50w Syringe) 25 ml Q15M PRN IV DECREASED GLUCOSE; Start 06/25/18 at 11:30 Dextrose (D50w Syringe) 50 ml Q15M PRN IV DECREASED GLUCOSE; Start 06/25/18 at 11:30 Glucagon (Glucagen) 1 mg Q15M PRN IM DECREASED GLUCOSE; Start 06/25/18 at 11:30 Glucose (Glutose) 15 gm Q15M PRN BUCCAL DECREASED GLUCOSE; Start 06/25/18 at 11:30 Diagnostic Test (Pha) (Accu-Chek) 1 ea 02 XX Last administered on 07/05/18at 01:37; Admin Dose 1 EA; Start 06/26/18 at 02:00 Ondansetron HCl (Zofran Inj) 4 mg Q4H PRN IV NAUSEA AND/OR VOMITING Last administered on 07/03/18 19:04; Admin Dose 4 MG; Start 06/28/18 at 01:30 Clonidine (Catapres) 0.1 mg BID PRN PO SBP > 180 Last administered on 06/30/18 23:33; Admin Dose 0.1 MG; Start 06/28/18 at 14:00 Acetaminophen (Tylenol Tab) 650 mg Q4H PRN PO MILD PAIN(1-3)OR ELEVATED TEMP Last administered on 07/05/18 01:36; Admin Dose 650 MG; Start 06/29/18 at 09:30 Gabapentin (Neurontin) 300 mg HS PO Last administered on 07/04/18 21:14; Admin Dose 300 MG; Start 06/29/18 at 21:00 Pantoprazole (Protonix Tab) 40 mg DAILY@06 PO Last administered on 07/05/18 06:22; Admin Dose 40 MG; Start 06/30/18 at 06:00 Miscellaneous Information (Pending Santyl Order For Wound Care) This patient green... PRN PRN XX WOUND CARE; Start 06/30/18 at 08:00 Collagenase (Santyl) 1 applic DAILY TOP Last administered on 07/04/18 09:00; Admin Dose 1 APPLIC; Start 07/02/18 at 09:00 Epoetin Alejo-epbx (Retacrit) 6,000 unit TuThSa@1700 SC Last administered on 07/03/18 18:15; Admin Dose 6,000 UNIT; Start 07/01/18 at 17:00 Lorazepam (Ativan) 0.5 mg Q8H PRN PO ANXIETY; Start 07/01/18 at 16:30 Morphine Sulfate (morphine) 6 mg Q4H PRN PO SEVERE PAIN LEVEL 7-10; Start 07/01/18 at 16:30 Insulin Aspart (Novolog Insulin Pen) NOVOLOG *MODERATE* ALGORITHM WITH MEALS BEDTIME SC Last administered on 07/04/18 18:32; Admin Dose 2 UNIT; Start 07/01/18 at 21:00 Magnesium Hydroxide (Milk Of Mag) 30 ml BID PO Last administered on 07/04/18 21:14; Admin Dose 30 ML; Start 07/02/18 at 09:00 Vancomycin HCl (Vanco Iv Per Pharmacy) VANCOMYCIN PER PHARMACY PER PROTOCOL XX ; Start 07/02/18 at 12:30 Apixaban (Eliquis) 2.5 mg BID PO Last administered on 07/04/18 21:13; Admin Dose 2.5 MG; Start 07/02/18 at 21:00 Vancomycin HCl 250 ml @ 125 mls/hr Q36H IVPB Last administered on 07/04/18 01:30; Admin Dose 125 MLS/HR; Start 07/04/18 at 02:00; Status Hold Insulin Glargine (Lantus) 50 units BID SC Last administered on 07/04/18 23:01; Admin Dose 50 UNITS; Start 07/02/18 at 21:00 Insulin Aspart (Novolog Insulin Pen) 6 unit WITH MEALS SC Last administered on 07/04/18 18:32; Admin Dose 6 UNIT; Start 07/03/18 at 07:55 Amiodarone HCl (Cordarone) 200 mg DAILY PO Last administered on 07/04/18 09:00; Admin Dose 200 MG; Start 07/04/18 at 09:00 JOSÉ FRANZ MD Jul 05, 2018 08:53
[2018-07-05] MEDS: INSULIN GLARGINE [LANTus] (100 UNITS/ML) SYG SC SCH ×2 (09:00→22:35)
[2018-07-05] MEDS: COLLAGENASE 5 GM (UD JAR) TOP SCH (09:00)
[2018-07-05] MEDS: DOCUSATE SODIUM 100 MG CAP PO SCH ×3 (09:53→21:00)
[2018-07-05] MEDS: MAGNESIUM HYDROXIDE 30ML CUP PO SCH ×2 (09:53→22:17)
[2018-07-05] MEDS: AMIODARONE 200 MG TAB PO SCH (09:53)
[2018-07-05] MEDS: APIXABAN 5 MG TABLET PO SCH (09:53)
--- NOTE | 2018-07-05 11:12 | CONS ---
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% Paroxysmal atrial fibrillation Echo dense structure seen by tricuspid valve, right atrium and IVC CAD with history of CABG History of renal carcinoma status post nephrectomy approximately 8 years ago Hypertension Diabetes Acute blood loss anemia Plan: will hold eliquis today given marked blood loss and need for PRBC Consultation Date/Type/Reason Admit Date/Time Jun 25, 2018 at 06:24 Initial Consult Date 06/26/18 Type of Consult Cardiology Requesting Provider: NUBIA TEJEDA MD Date/Time of Note DATE: 07/05/18 TIME: 11:11 24 HR Interval Summary Free Text/Dictation no distress Detailed Summary Respiratory: no complaints Cardiovascular: no complaints Gastrointestinal: no complaints Musculoskeletal: no complaints Skin: no complaints Neurologic: no complaints Endocrine: no complaints Exam/Review of Systems Vital Signs Vitals Vital Signs Date Temp Pulse Resp B/P (MAP) Pulse Ox O2 O2 Flow FiO2 Time Delivery Rate 07/05/18 85 08:12 07/05/18 98.0 17 171/89 96 07:46 (116) 07/05/18 2.0 05:27 07/04/18 Nasal 21:00 Cannula Intake and Output 07/04/18 07/04/18 07/05/18 1515:00 23:00 07:00 IntakeIntake Total 510 ml 200 ml BalanceBalance 510 ml 200 ml Exam Constitutional: frail Head: normocephalic, atraumatic Neck: supple Respiratory: clear to auscultation Cardiovascular: irregular rhythm Gastrointestinal: soft Musculoskeletal: nl extremities to inspection Extremities: normal pulses Labs Result Diagram: 07/04/18 0532 07/04/18 0532 Results 24hrs Laboratory Tests Test 07/04/18 12:17 07/04/18 18:00 07/04/18 18:06 07/04/18 21:22 Bedside Glucose 233 H 172 173 Urine Color YELLOW Urine Clarity CLOUDY A Urine pH 5.0 Urine Specific [place] 1.016 Urine Ketones NEGATIVE Urine Nitrite NEGATIVE Urine Bilirubin NEGATIVE Urine Urobilinogen NEGATIVE Urine Leukocyte Esterase 2+ H Urine Microscopic RBC 169 H Urine Microscopic WBC 169 H Urine Squamous MODERATE Epithelial Cells Urine Transitional MODERATE Epithelial Cells Urine Mucus FEW A Urine Yeast (Budding) MANY A Urine Hemoglobin 2+ H Urine Glucose NEGATIVE Urine Total Protein 2+ H Test 07/05/18 01:35 07/05/18 08:20 Bedside Glucose 112 100 Medications Medications Current Medications Atorvastatin Calcium (Lipitor) 40 mg QHS PO Last administered on 07/04/18 21:14; Admin Dose 40 MG; Start 06/25/18 at 21:00 Docusate Sodium (Colace) 100 mg TID PO Last administered on 07/05/18 09:53; Admin Dose 100 MG; Start 06/25/18 at 13:00 Miscellaneous Information 1 ea NOTE XX ; Start 06/25/18 at 11:30 Glucose (Glutose) 15 gm Q15M PRN PO DECREASED GLUCOSE; Start 06/25/18 at 11:30 Glucose (Glutose) 22.5 gm Q15M PRN PO DECREASED GLUCOSE; Start 06/25/18 at 11:30 Dextrose (D50w Syringe) 25 ml Q15M PRN IV DECREASED GLUCOSE; Start 06/25/18 at 11:30 Dextrose (D50w Syringe) 50 ml Q15M PRN IV DECREASED GLUCOSE; Start 06/25/18 at 11:30 Glucagon (Glucagen) 1 mg Q15M PRN IM DECREASED GLUCOSE; Start 06/25/18 at 11:30 Glucose (Glutose) 15 gm Q15M PRN BUCCAL DECREASED GLUCOSE; Start 06/25/18 at 11:30 Diagnostic Test (Pha) (Accu-Chek) 1 ea 02 XX Last administered on 07/05/18at 01:37; Admin Dose 1 EA; Start 06/26/18 at 02:00 Ondansetron HCl (Zofran Inj) 4 mg Q4H PRN IV NAUSEA AND/OR VOMITING Last administered on 07/03/18 19:04; Admin Dose 4 MG; Start 06/28/18 at 01:30 Clonidine (Catapres) 0.1 mg BID PRN PO SBP > 180 Last administered on 06/30/18 23:33; Admin Dose 0.1 MG; Start 06/28/18 at 14:00 Acetaminophen (Tylenol Tab) 650 mg Q4H PRN PO MILD PAIN(1-3)OR ELEVATED TEMP Last administered on 07/05/18 01:36; Admin Dose 650 MG; Start 06/29/18 at 09:30 Gabapentin (Neurontin) 300 mg HS PO Last administered on 07/04/18 21:14; Admin Dose 300 MG; Start 06/29/18 at 21:00 Pantoprazole (Protonix Tab) 40 mg DAILY@06 PO Last administered on 07/05/18 06:22; Admin Dose 40 MG; Start 06/30/18 at 06:00 Miscellaneous Information (Pending Santyl Order For Wound Care) This patient green... PRN PRN XX WOUND CARE; Start 06/30/18 at 08:00 Collagenase (Santyl) 1 applic DAILY TOP Last administered on 07/04/18 09:00; Admin Dose 1 APPLIC; Start 07/02/18 at 09:00 Epoetin Alejo-epbx (Retacrit) 6,000 unit TuThSa@1700 SC Last administered on 07/03/18 18:15; Admin Dose 6,000 UNIT; Start 07/01/18 at 17:00 Lorazepam (Ativan) 0.5 mg Q8H PRN PO ANXIETY; Start 07/01/18 at 16:30 Morphine Sulfate (morphine) 6 mg Q4H PRN PO SEVERE PAIN LEVEL 7-10; Start 07/01/18 at 16:30 Insulin Aspart (Novolog Insulin Pen) NOVOLOG *MODERATE* ALGORITHM WITH MEALS BEDTIME SC Last administered on 07/04/18 18:32; Admin Dose 2 UNIT; Start 07/01/18 at 21:00 Magnesium Hydroxide (Milk Of Mag) 30 ml BID PO Last administered on 07/05/18 09:53; Admin Dose 30 ML; Start 07/02/18 at 09:00 Vancomycin HCl (Vanco Iv Per Pharmacy) VANCOMYCIN PER PHARMACY PER PROTOCOL XX ; Start 07/02/18 at 12:30 Apixaban (Eliquis) 2.5 mg BID PO Last administered on 07/05/18 09:53; Admin Dose 2.5 MG; Start 07/02/18 at 21:00 Vancomycin HCl 250 ml @ 125 mls/hr Q36H IVPB Last administered on 07/04/18 01:30; Admin Dose 125 MLS/HR; Start 07/04/18 at 02:00; Status Hold Insulin Glargine (Lantus) 50 units BID SC Last administered on 07/04/18 23:01; Admin Dose 50 UNITS; Start 07/02/18 at 21:00 Insulin Aspart (Novolog Insulin Pen) 6 unit WITH MEALS SC Last administered on 07/04/18at 18:32; Admin Dose 6 UNIT; Start 07/03/18 at 07:55 Amiodarone HCl (Cordarone) 200 mg DAILY PO Last administered on 07/05/18at 09:53; Admin Dose 200 MG; Start 07/04/18 at 09:00 TOÑA JUDGE MD Jul 05, 2018 11:12
--- NOTE | 2018-07-05 14:58 | PN ---
Date/Time of Note Date/Time of Note DATE: 07/05/18 TIME: 14:56 Assessment/Plan Lines/Catheters IV Catheter Type (from Nrsg): Peripheral IV [place] in Place (from Nrsg): No Assessment/Plan Assessment/Plan SP Embolectomy LLE LLE Hematoma Would stop anticoagulation for 2 to 3 days Hgb 10 will monitor the HGB levels Subjective 24 Hr Interval Summary Constitutional: improved Pain Control: mild Exam/Review of Systems Vital Signs Vitals Vital Signs Date Temp Pulse Resp B/P (MAP) Pulse Ox O2 O2 Flow FiO2 Time Delivery Rate 07/05/18 95 12:11 07/05/18 98.0 18 138/74 92 11:37 (95) 07/05/18 Nasal 2.0 08:20 Cannula Intake and Output 07/04/18 07/04/18 07/05/18 1515:00 23:00 07:00 IntakeIntake Total 510 ml 200 ml BalanceBalance 510 ml 200 ml Exam Eyes: nl conjunctiva, EOMI, nl lids, nl sclera ENMT: nl external ears & nose, nl lips & teeth, nl nasal mucosa & septum, mucosa pink and moist Neck: supple, non-tender Respiratory: clear to auscultation, normal air movement Cardiovascular: regular rate and rhythm, nl pulses Gastrointestinal: soft, nl liver, spleen, non-tender Musculoskeletal: nl extremities to inspection, nl gait and stance Additional Comments Left leg with swelling no sign of ischemia Results Result Diagram: 07/05/18 1109 07/05/18 1109 KELLEY GARY MD Jul 05, 2018 14:58
[2018-07-05] MEDS ORDERED: MEROPENEM 500MG/50 ML (PMX) 50 ML IVPB SCH (16:00)
[2018-07-05] MEDS ORDERED: CASPOFUNGIN 70 MG in SOD CHLORIDE 0.9% 250 ML IVPB ONE (16:00)
--- NOTE | 2018-07-05 16:53 | PN ---
Date/Time of Note Date/Time of Note DATE: 07/05/18 TIME: 16:41 Assessment/Plan VTE Prophylaxis Risk score (from [place])>0 risk: 14 SCD applied (from [place]): No SCD contraindicated: other Pharmacological prophylaxis: other Pharm contraindication: other Lines/Catheters IV Catheter Type (from [facility]): Peripheral IV Urinary Cath still in place: No Assessment/Plan Hospital Course 82-year-old female who has the following problems: Occlusive left common femoral artery status post thrombectomy Acute kidney injury Acute decompensated systolic congestive heart failure-improving 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 And the bladder scan showed that she is in urinary retention and the bladder is very distended. I was asked to help and see if I could put a catheter for her. I do know this patient from before and I have seen her during her last visit last month Patient was positioned flat in the bed and the nurses helped pulling up her l ower abdominal folds and her thighs apart then I prepped the genital area and while feeling the meatus with the right index finger I pushed the catheter into it with the left hand. The catheter did go into the bladder and 1500ml of clear urine drained out. Result Diagram: 07/05/18 1109 07/05/18 1109 Results 24hrs Laboratory Tests Test 07/04/18 18:00 07/04/18 18:06 07/04/18 21:22 07/05/18 01:35 Urine Color YELLOW Urine Clarity CLOUDY A Urine pH 5.0 Urine Specific [place] 1.016 Urine Ketones NEGATIVE Urine Nitrite NEGATIVE Urine Bilirubin NEGATIVE Urine Urobilinogen NEGATIVE Urine Leukocyte Esterase 2+ H Urine Microscopic RBC 169 H Urine Microscopic WBC 169 H Urine Squamous MODERATE Epithelial Cells Urine Transitional MODERATE Epithelial Cells Urine Mucus FEW A Urine Yeast (Budding) MANY A Urine Hemoglobin 2+ H Urine Glucose NEGATIVE Urine Total Protein 2+ H Bedside Glucose 172 173 112 Test 07/05/18 08:20 07/05/18 11:09 07/05/18 12:33 Bedside Glucose 100 165 White Blood Count 27.1 H Red Blood Count 3.62 #L Hemoglobin 10.3 #L Hematocrit 32.0 #L Mean Corpuscular Volume 88.4 Mean Corpuscular 28.5 L Hemoglobin Mean Corpuscular 32.2 Hemoglobin Concent Red Cell Distribution 14.6 H Width Platelet Count 324 # Mean Platelet Volume 11.2 H Immature Granulocytes % 2.500 H Neutrophils % Segmented Neutrophils 91 H % (Manual) Band Neutrophils % 2 (Manual) Lymphocytes % Lymphocytes % (Manual) 4 L Monocytes % Monocytes % (Manual) 3 Eosinophils % Basophils % Nucleated Red Blood 0.1 H Cells % Immature Granulocytes # 0.680 H Neutrophils # Neutrophils # (Manual) 24.8 H Band Neutrophils # 0.5 Lymphocytes (Manual) 1.0 Lymphocytes # Monocytes # Monocytes # (Manual) 0.8 Eosinophils # Basophils # Nucleated Red Blood Cells # Platelet Estimate NORMAL Polychromasia 2+ Anisocytosis 1+ Sodium Level 137 Potassium Level 5.0 Chloride Level 99 Carbon Dioxide Level 29 Anion Gap 9 Blood Urea Nitrogen 75 H Creatinine 2.63 H Est Glomerular Filtrat Rate mL/min Glucose Level 131 Calcium Level 9.0 B-Type Natriuretic 46613 H Peptide Subjective 24 Hr Interval Summary Free Text/Dictation 82-year-old female who has the following problems: Occlusive left common femoral artery status post thrombectomy Acute kidney injury Acute decompensated systolic congestive heart failure-improving 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 And the bladder scan showed that she is in urinary retention and the bladder is very distended. I was asked to help and see if I could put a catheter for her. I do know this patient from before and I have seen her during her last visit last month. Exam/Review of Systems Exam Vitals Vital Signs Date Temp Pulse Resp B/P (MAP) Pulse Ox O2 O2 Flow FiO2 Time Delivery Rate 07/05/18 99 16:17 07/05/18 98.9 17 159/77 97 15:52 (104) 07/05/18 Nasal 2.0 08:20 Cannula Intake and Output 07/04/18 07/04/18 07/05/18 1515:00 23:00 07:00 IntakeIntake Total 510 ml 200 ml BalanceBalance 510 ml 200 ml Exam The bladder is distended and the abdomen is obese. She also does have large thighs and it is very difficult to see the urethral meatus to insert the catheter. The only way to do it would be to palpate the urethral meatus with the index finger and direct the catheter into that opening. Results Results 24hrs Laboratory Tests Test 07/04/18 18:00 07/04/18 18:06 07/04/18 21:22 07/05/18 01:35 Urine Color YELLOW Urine Clarity CLOUDY A Urine pH 5.0 Urine Specific [place] 1.016 Urine Ketones NEGATIVE Urine Nitrite NEGATIVE Urine Bilirubin NEGATIVE Urine Urobilinogen NEGATIVE Urine Leukocyte Esterase 2+ H Urine Microscopic RBC 169 H Urine Microscopic WBC 169 H Urine Squamous MODERATE Epithelial Cells Urine Transitional MODERATE Epithelial Cells Urine Mucus FEW A Urine Yeast (Budding) MANY A Urine Hemoglobin 2+ H Urine Glucose NEGATIVE Urine Total Protein 2+ H Bedside Glucose 172 173 112 Test 07/05/18 08:20 07/05/18 11:09 07/05/18 12:33 Bedside Glucose 100 165 White Blood Count 27.1 H Red Blood Count 3.62 #L Hemoglobin 10.3 #L Hematocrit 32.0 #L Mean Corpuscular Volume 88.4 Mean Corpuscular 28.5 L Hemoglobin Mean Corpuscular 32.2 Hemoglobin Concent Red Cell Distribution 14.6 H Width Platelet Count 324 # Mean Platelet Volume 11.2 H Immature Granulocytes % 2.500 H Neutrophils % Segmented Neutrophils 91 H % (Manual) Band Neutrophils % 2 (Manual) Lymphocytes % Lymphocytes % (Manual) 4 L Monocytes % Monocytes % (Manual) 3 Eosinophils % Basophils % Nucleated Red Blood 0.1 H Cells % Immature Granulocytes # 0.680 H Neutrophils # Neutrophils # (Manual) 24.8 H Band Neutrophils # 0.5 Lymphocytes (Manual) 1.0 Lymphocytes # Monocytes # Monocytes # (Manual) 0.8 Eosinophils # Basophils # Nucleated Red Blood Cells # Platelet Estimate NORMAL Polychromasia 2+ Anisocytosis 1+ Sodium Level 137 Potassium Level 5.0 Chloride Level 99 Carbon Dioxide Level 29 Anion Gap 9 Blood Urea Nitrogen 75 H Creatinine 2.63 H Est Glomerular Filtrat Rate mL/min Glucose Level 131 Calcium Level 9.0 B-Type Natriuretic 14524 H Peptide Medications Medication Current Medications Atorvastatin Calcium (Lipitor) 40 mg QHS PO Last administered on 4/5/19at 21:14; Admin Dose 40 MG; Start 06/25/18 at 21:00 Docusate Sodium (Colace) 100 mg TID PO Last administered on 07/05/18 09:53; Admin Dose 100 MG; Start 06/25/18 at 13:00 Miscellaneous Information 1 ea NOTE XX ; Start 06/25/18 at 11:30 Glucose (Glutose) 15 gm Q15M PRN PO DECREASED GLUCOSE; Start 06/25/18 at 11:30 Glucose (Glutose) 22.5 gm Q15M PRN PO DECREASED GLUCOSE; Start 06/25/18 at 11:30 Dextrose (D50w Syringe) 25 ml Q15M PRN IV DECREASED GLUCOSE; Start 06/25/18 at 11:30 Dextrose (D50w Syringe) 50 ml Q15M PRN IV DECREASED GLUCOSE; Start 06/25/18 at 11:30 Glucagon (Glucagen) 1 mg Q15M PRN IM DECREASED GLUCOSE; Start 06/25/18 at 11:30 Glucose (Glutose) 15 gm Q15M PRN BUCCAL DECREASED GLUCOSE; Start 06/25/18 at 11:30 Diagnostic Test (Pha) (Accu-Chek) 1 ea 02 XX Last administered on 07/05/18 01:37; Admin Dose 1 EA; Start 06/26/18 at 02:00 Ondansetron HCl (Zofran Inj) 4 mg Q4H PRN IV NAUSEA AND/OR VOMITING Last administered on 07/03/18 19:04; Admin Dose 4 MG; Start 06/28/18 at 01:30 Clonidine (Catapres) 0.1 mg BID PRN PO SBP > 180 Last administered on 06/30/18 23:33; Admin Dose 0.1 MG; Start 06/28/18 at 14:00 Acetaminophen (Tylenol Tab) 650 mg Q4H PRN PO MILD PAIN(1-3)OR ELEVATED TEMP Last administered on 07/05/18 15:37; Admin Dose 650 MG; Start 06/29/18 at 09:30 Gabapentin (Neurontin) 300 mg HS PO Last administered on 07/04/18 21:14; Admin Dose 300 MG; Start 06/29/18 at 21:00 Pantoprazole (Protonix Tab) 40 mg DAILY@06 PO Last administered on 07/05/18 06:22; Admin Dose 40 MG; Start 06/30/18 at 06:00 Miscellaneous Information (Pending Santyl Order For Wound Care) This patient green... PRN PRN XX WOUND CARE; Start 06/30/18 at 08:00 Collagenase (Santyl) 1 applic DAILY TOP Last administered on 07/05/18 09:00; Admin Dose 1 APPLIC; Start 07/02/18 at 09:00 Epoetin Alejo-epbx (Retacrit) 6,000 unit TuThSa@1700 SC Last administered on 07/03/18 18:15; Admin Dose 6,000 UNIT; Start 07/01/18 at 17:00 Lorazepam (Ativan) 0.5 mg Q8H PRN PO ANXIETY; Start 07/01/18 at 16:30 Morphine Sulfate (morphine) 6 mg Q4H PRN PO SEVERE PAIN LEVEL 7-10; Start 07/01/18 at 16:30 Insulin Aspart (Novolog Insulin Pen) NOVOLOG *MODERATE* ALGORITHM WITH MEALS BEDTIME SC Last administered on 07/05/18 12:40; Admin Dose 2 UNIT; Start 07/01/18 at 21:00 Magnesium Hydroxide (Milk Of Mag) 30 ml BID PO Last administered on 07/05/18 09:53; Admin Dose 30 ML; Start 07/02/18 at 09:00 Vancomycin HCl (Vanco Iv Per Pharmacy) VANCOMYCIN PER PHARMACY PER PROTOCOL XX ; Start 07/02/18 at 12:30 Vancomycin HCl 250 ml @ 125 mls/hr Q36H IVPB Last administered on 07/04/18 01:30; Admin Dose 125 MLS/HR; Start 07/04/18 at 02:00; Status Hold Insulin Glargine (Lantus) 50 units BID SC Last administered on 07/05/18 09:00; Admin Dose 50 UNITS; Start 07/02/18 at 21:00 Insulin Aspart (Novolog Insulin Pen) 6 unit WITH MEALS SC Last administered on 07/05/18 12:40; Admin Dose 6 UNIT; Start 07/03/18 at 07:55 Amiodarone HCl (Cordarone) 200 mg DAILY PO Last administered on 07/05/18 09:53; Admin Dose 200 MG; Start 07/04/18 at 09:00 Caspofungin 50 mg/ Sodium Chloride 250 ml @ 250 mls/hr Q24H IVPB ; Start 07/06/18 at 16:00 Caspofungin 70 mg/ Sodium Chloride 250 ml @ 250 mls/hr ONCE ONCE IVPB ; Start 07/05/18 at 16:00; Stop 07/05/18 at 16:59 Meropenem/Sodium Chloride 50 ml @ 100 mls/hr Q12 IVPB ; Start 07/05/18 at 16:00 ERIK CHILDERS MD Jul 05, 2018 16:52
[2018-07-05] MEDS: EPOETIN ALFA-EPBX (NON-ESRD) 3,000 UNIT/ML VIAL SC SCH (17:00)
--- NOTE | 2018-07-05 17:23 | CONS ---
Assessment/Plan Assessment/Plan Hospital Course (Demo Recall) Patient is alert laying comfortably in bed son at bedside, she is complaining of abdominal pain. T-max 100.6 T-current 98.9. WBC 27.1 H&H 10.3 and 32 platelets 324 neutrophils 91 BUN 75 creatinine 2.63 Microbiology: Blood culture 2 days ago negative urine culture growing yeast Diagnostics: Ultrasound of left lower extremity revealed 5 cm depressed containing collection in the superficial soft tissue of the left inguinal region finding could reflect hematoma possible abscess. Please see full report in the chart. CT abdomen and pelvis from yesterday revealed distended urinary bladder with mild bilateral hydronephrosis without evidence of obstructing renal stone. Stable postsurgical changes of partial left nephrectomy. 4.4 x 2.5 cm lobulated region of soft tissue density with small foci of air surrounding stranding in the left groin adjacent to the left femoral artery. Please see full report in the chart Antimicrobials: The patient was started on Cancidas Merrem she is also on vancomycin Physical examination: This is obese well-developed pleasant Amharic woman who is alert in no distress. Head atraumatic normocephalic sclera nonicteric. Neck is supple. Chest rise symmetrical breath sounds clear, diminished bases. Heart: S1-S2. Abdomen soft, bowel sounds present. Patient has tenderness over suprapubic region with guarding. Extremities without cyanosis. Left lower extremity dressing intact Assessment: 1. Systemic inflammatory response syndrome with ongoing leukocytosis 2. Left groin hematoma versus abscess 3. Urinary tract infection 4. Urinary retention 5. Occlusive left common femoral artery status post thrombectomy 6. Coronary artery disease, history of CABG 7. Paroxysmal atrial fibrillation 8. Diabetes 9. Abnormal 2D echo, rule out vegetations versus thrombus versus tumor on the right atrium 10. History of renal cell carcinoma status post partial nephrectomy Plan: Patient is clinically stable, Odonnell catheter was inserted by urology ==> 1500 cc of urine drained, she was started is on broad-spectrum coverage which we will will continue, follow vascular surgery recommendations plan to stop anticoagulation for 2-3 days Discussed with son at bedside. Discussed with RN Consultation Date/Type/Reason Admit Date/Time Jun 25, 2018 at 06:24 Initial Consult Date 06/26/18 Type of Consult id Requesting Provider: NUBIA TEJEDA MD Date/Time of Note DATE: 07/05/18 TIME: 17:22 Exam/Review of Systems Exam Vitals Vital Signs Date Temp Pulse Resp B/P (MAP) Pulse Ox O2 O2 Flow FiO2 Time Delivery Rate 07/05/18 99 16:17 07/05/18 98.9 17 159/77 97 15:52 (104) 07/05/18 Nasal 2.0 08:20 Cannula Intake and Output 07/04/18 07/04/18 07/05/18 1515:00 23:00 07:00 IntakeIntake Total 510 ml 200 ml BalanceBalance 510 ml 200 ml Results Result Diagram: 07/05/18 1109 07/05/18 1109 Results 24hrs Laboratory Tests Test 07/04/18 18:00 07/04/18 18:06 07/04/18 21:22 07/05/18 01:35 Urine Color YELLOW Urine Clarity CLOUDY A Urine pH 5.0 Urine Specific [place] 1.016 Urine Ketones NEGATIVE Urine Nitrite NEGATIVE Urine Bilirubin NEGATIVE Urine Urobilinogen NEGATIVE Urine Leukocyte Esterase 2+ H Urine Microscopic RBC 169 H Urine Microscopic WBC 169 H Urine Squamous MODERATE Epithelial Cells Urine Transitional MODERATE Epithelial Cells Urine Mucus FEW A Urine Yeast (Budding) MANY A Urine Hemoglobin 2+ H Urine Glucose NEGATIVE Urine Total Protein 2+ H Bedside Glucose 172 173 112 Test 07/05/18 08:20 07/05/18 11:09 07/05/18 12:33 Bedside Glucose 100 165 White Blood Count 27.1 H Red Blood Count 3.62 #L Hemoglobin 10.3 #L Hematocrit 32.0 #L Mean Corpuscular Volume 88.4 Mean Corpuscular 28.5 L Hemoglobin Mean Corpuscular 32.2 Hemoglobin Concent Red Cell Distribution 14.6 H Width Platelet Count 324 # Mean Platelet Volume 11.2 H Immature Granulocytes % 2.500 H Neutrophils % Segmented Neutrophils 91 H % (Manual) Band Neutrophils % 2 (Manual) Lymphocytes % Lymphocytes % (Manual) 4 L Monocytes % Monocytes % (Manual) 3 Eosinophils % Basophils % Nucleated Red Blood 0.1 H Cells % Immature Granulocytes # 0.680 H Neutrophils # Neutrophils # (Manual) 24.8 H Band Neutrophils # 0.5 Lymphocytes (Manual) 1.0 Lymphocytes # Monocytes # Monocytes # (Manual) 0.8 Eosinophils # Basophils # Nucleated Red Blood Cells # Platelet Estimate NORMAL Polychromasia 2+ Anisocytosis 1+ Sodium Level 137 Potassium Level 5.0 Chloride Level 99 Carbon Dioxide Level 29 Anion Gap 9 Blood Urea Nitrogen 75 H Creatinine 2.63 H Est Glomerular Filtrat Rate mL/min Glucose Level 131 Calcium Level 9.0 B-Type Natriuretic 68260 H Peptide Medications Medication Current Medications Atorvastatin Calcium (Lipitor) 40 mg QHS PO Last administered on 07/04/18 21:14; Admin Dose 40 MG; Start 06/25/18 at 21:00 Docusate Sodium (Colace) 100 mg TID PO Last administered on 07/05/18 09:53; Admin Dose 100 MG; Start 06/25/18 at 13:00 Miscellaneous Information 1 ea NOTE XX ; Start 06/25/18 at 11:30 Glucose (Glutose) 15 gm Q15M PRN PO DECREASED GLUCOSE; Start 06/25/18 at 11:30 Glucose (Glutose) 22.5 gm Q15M PRN PO DECREASED GLUCOSE; Start 06/25/18 at 11:30 Dextrose (D50w Syringe) 25 ml Q15M PRN IV DECREASED GLUCOSE; Start 06/25/18 at 11:30 Dextrose (D50w Syringe) 50 ml Q15M PRN IV DECREASED GLUCOSE; Start 06/25/18 at 11:30 Glucagon (Glucagen) 1 mg Q15M PRN IM DECREASED GLUCOSE; Start 06/25/18 at 11:30 Glucose (Glutose) 15 gm Q15M PRN BUCCAL DECREASED GLUCOSE; Start 06/25/18 at 11:30 Diagnostic Test (Pha) (Accu-Chek) 1 ea 02 XX Last administered on 07/05/18 01 :37; Admin Dose 1 EA; Start 06/26/18 at 02:00 Ondansetron HCl (Zofran Inj) 4 mg Q4H PRN IV NAUSEA AND/OR VOMITING Last administered on 07/03/18 19:04; Admin Dose 4 MG; Start 06/28/18 at 01:30 Clonidine (Catapres) 0.1 mg BID PRN PO SBP > 180 Last administered on 06/30/18 23:33; Admin Dose 0.1 MG; Start 06/28/18 at 14:00 Acetaminophen (Tylenol Tab) 650 mg Q4H PRN PO MILD PAIN(1-3)OR ELEVATED TEMP Last administered on 07/05/18 15:37; Admin Dose 650 MG; Start 06/29/18 at 09:30 Gabapentin (Neurontin) 300 mg HS PO Last administered on 07/04/18 21:14; Admin Dose 300 MG; Start 06/29/18 at 21:00 Pantoprazole (Protonix Tab) 40 mg DAILY@06 PO Last administered on 07/05/18 06:22; Admin Dose 40 MG; Start 06/30/18 at 06:00 Miscellaneous Information (Pending Santyl Order For Wound Care) This patient green... PRN PRN XX WOUND CARE; Start 06/30/18 at 08:00 Collagenase (Santyl) 1 applic DAILY TOP Last administered on 07/05/18 09:00; Admin Dose 1 APPLIC; Start 07/02/18 at 09:00 Epoetin Alejo-epbx (Retacrit) 6,000 unit TuThSa@1700 SC Last administered on 07/03/18 18:15; Admin Dose 6,000 UNIT; Start 07/01/18 at 17:00 Lorazepam (Ativan) 0.5 mg Q8H PRN PO ANXIETY; Start 07/01/18 at 16:30 Morphine Sulfate (morphine) 6 mg Q4H PRN PO SEVERE PAIN LEVEL 7-10; Start 07/01/18 at 16:30 Insulin Aspart (Novolog Insulin Pen) NOVOLOG *MODERATE* ALGORITHM WITH MEALS BEDTIME SC Last administered on 07/05/18 12:40; Admin Dose 2 UNIT; Start 07/01/18 at 21:00 Magnesium Hydroxide (Milk Of Mag) 30 ml BID PO Last administered on 07/05/18 09:53; Admin Dose 30 ML; Start 07/02/18 at 09:00 Vancomycin HCl (Vanco Iv Per Pharmacy) VANCOMYCIN PER PHARMACY PER PROTOCOL XX ; Start 07/02/18 at 12:30 Vancomycin HCl 250 ml @ 125 mls/hr Q36H IVPB Last administered on 07/04/18 01:30; Admin Dose 125 MLS/HR; Start 07/04/18 at 02:00; Status Hold Insulin Glargine (Lantus) 50 units BID SC Last administered on 07/05/18 09:00; Admin Dose 50 UNITS; Start 07/02/18 at 21:00 Insulin Aspart (Novolog Insulin Pen) 6 unit WITH MEALS SC Last administered on 07/05/18 12:40; Admin Dose 6 UNIT; Start 07/03/18 at 07:55 Amiodarone HCl (Cordarone) 200 mg DAILY PO Last administered on 07/05/18at 09:53; Admin Dose 200 MG; Start 07/04/18 at 09:00 Caspofungin 50 mg/ Sodium Chloride 250 ml @ 250 mls/hr Q24H IVPB ; Start 07/06/18 at 16:00 Meropenem/Sodium Chloride 50 ml @ 100 mls/hr Q12 IVPB ; Start 07/05/18 at 16:00 BARBARA ORDAZ NP Jul 05, 2018 17:23
--- NOTE | 2018-07-05 19:12 | CONS ---
Consultation Date/Type/Reason Admit Date/Time Jun 25, 2018 at 06:24 Type of Consult Nephrology Date/Time of Note DATE: 07/05/18 TIME: 19:11 left leg bandaged s/p thormobectomy Additional Comments feels ok k is 5.1will give kayexalate today also discussed with family and RN Exam/Review of Systems Vital Signs Vitals Vital Signs Date Temp Pulse Resp B/P (MAP) Pulse Ox O2 O2 Flow FiO2 Time Delivery Rate 07/05/18 2.0 18:35 07/05/18 99 16:17 07/05/18 98.9 17 159/77 97 15:52 (104) 07/05/18 Nasal 08:20 Cannula Intake and Output 07/04/18 07/04/18 07/05/18 1515:00 23:00 07:00 IntakeIntake Total 510 ml 200 ml BalanceBalance 510 ml 200 ml Labs Result Diagram: 07/05/18 1109 07/05/18 1109 Results 24hrs Laboratory Tests Test 07/04/18 21:22 07/05/18 01:35 07/05/18 08:20 07/05/18 11:09 Bedside Glucose 173 112 100 White Blood Count 27.1 H Red Blood Count 3.62 #L Hemoglobin 10.3 #L Hematocrit 32.0 #L Mean Corpuscular Volume 88.4 Mean Corpuscular 28.5 L Hemoglobin Mean Corpuscular 32.2 Hemoglobin Concent Red Cell Distribution 14.6 H Width Platelet Count 324 # Mean Platelet Volume 11.2 H Immature Granulocytes % 2.500 H Neutrophils % Segmented Neutrophils 91 H % (Manual) Band Neutrophils % 2 (Manual) Lymphocytes % Lymphocytes % (Manual) 4 L Monocytes % Monocytes % (Manual) 3 Eosinophils % Basophils % Nucleated Red Blood 0.1 H Cells % Immature Granulocytes # 0.680 H Neutrophils # Neutrophils # (Manual) 24.8 H Band Neutrophils # 0.5 Lymphocytes (Manual) 1.0 Lymphocytes # Monocytes # Monocytes # (Manual) 0.8 Eosinophils # Basophils # Nucleated Red Blood Cells # Platelet Estimate NORMAL Polychromasia 2+ Anisocytosis 1+ Sodium Level 137 Potassium Level 5.0 Chloride Level 99 Carbon Dioxide Level 29 Anion Gap 9 Blood Urea Nitrogen 75 H Creatinine 2.63 H Est Glomerular Filtrat Rate mL/min Glucose Level 131 Calcium Level 9.0 B-Type Natriuretic 51242 H Peptide Test 07/05/18 12:33 Bedside Glucose 165 Medications Medications Current Medications Atorvastatin Calcium (Lipitor) 40 mg QHS PO Last administered on 07/04/18 21:14; Admin Dose 40 MG; Start 06/25/18 at 21:00 Docusate Sodium (Colace) 100 mg TID PO Last administered on 07/05/18 09:53; Admin Dose 100 MG; Start 06/25/18 at 13:00 Miscellaneous Information 1 ea NOTE XX ; Start 06/25/18 at 11:30 Glucose (Glutose) 15 gm Q15M PRN PO DECREASED GLUCOSE; Start 06/25/18 at 11:30 Glucose (Glutose) 22.5 gm Q15M PRN PO DECREASED GLUCOSE; Start 06/25/18 at 11:30 Dextrose (D50w Syringe) 25 ml Q15M PRN IV DECREASED GLUCOSE; Start 06/25/18 at 11:30 Dextrose (D50w Syringe) 50 ml Q15M PRN IV DECREASED GLUCOSE; Start 06/25/18 at 11:30 Glucagon (Glucagen) 1 mg Q15M PRN IM DECREASED GLUCOSE; Start 06/25/18 at 11:30 Glucose (Glutose) 15 gm Q15M PRN BUCCAL DECREASED GLUCOSE; Start 06/25/18 at 11:30 Diagnostic Test (Pha) (Accu-Chek) 1 ea 02 XX Last administered on 07/05/18at 01:37; Admin Dose 1 EA; Start 06/26/18 at 02:00 Ondansetron HCl (Zofran Inj) 4 mg Q4H PRN IV NAUSEA AND/OR VOMITING Last administered on 07/03/18 19:04; Admin Dose 4 MG; Start 06/28/18 at 01:30 Clonidine (Catapres) 0.1 mg BID PRN PO SBP > 180 Last administered on 06/30/18 23:33; Admin Dose 0.1 MG; Start 06/28/18 at 14:00 Acetaminophen (Tylenol Tab) 650 mg Q4H PRN PO MILD PAIN(1-3)OR ELEVATED TEMP Last administered on 07/05/18 15:37; Admin Dose 650 MG; Start 06/29/18 at 09:30 Gabapentin (Neurontin) 300 mg HS PO Last administered on 07/04/18 21:14; Admin Dose 300 MG; Start 06/29/18 at 21:00 Pantoprazole (Protonix Tab) 40 mg DAILY@06 PO Last administered on 07/05/18 06: 22; Admin Dose 40 MG; Start 06/30/18 at 06:00 Miscellaneous Information (Pending Santyl Order For Wound Care) This patient green... PRN PRN XX WOUND CARE; Start 06/30/18 at 08:00 Collagenase (Santyl) 1 applic DAILY TOP Last administered on 07/05/18 09:00; Admin Dose 1 APPLIC; Start 07/02/18 at 09:00 Epoetin Alejo-epbx (Retacrit) 6,000 unit TuThSa@1700 SC Last administered on 07/03/18 18:15; Admin Dose 6,000 UNIT; Start 07/01/18 at 17:00 Lorazepam (Ativan) 0.5 mg Q8H PRN PO ANXIETY; Start 07/01/18 at 16:30 Morphine Sulfate (morphine) 6 mg Q4H PRN PO SEVERE PAIN LEVEL 7-10; Start 07/01/18 at 16:30 Insulin Aspart (Novolog Insulin Pen) NOVOLOG *MODERATE* ALGORITHM WITH MEALS BEDTIME SC Last administered on 07/05/18 12:40; Admin Dose 2 UNIT; Start 07/01/18 at 21:00 Magnesium Hydroxide (Milk Of Mag) 30 ml BID PO Last administered on 07/05/18 09:53; Admin Dose 30 ML; Start 07/02/18 at 09:00 Vancomycin HCl (Vanco Iv Per Pharmacy) VANCOMYCIN PER PHARMACY PER PROTOCOL XX ; Start 07/02/18 at 12:30 Vancomycin HCl 250 ml @ 125 mls/hr Q36H IVPB Last administered on 07/04/18 01:30; Admin Dose 125 MLS/HR; Start 07/04/18 at 02:00; Status Hold Insulin Glargine (Lantus) 50 units BID SC Last administered on 07/05/18 09:00; Admin Dose 50 UNITS; Start 07/02/18 at 21:00 Insulin Aspart (Novolog Insulin Pen) 6 unit WITH MEALS SC Last administered on 07/05/18 12:40; Admin Dose 6 UNIT; Start 07/03/18 at 07:55 Amiodarone HCl (Cordarone) 200 mg DAILY PO Last administered on 07/05/18at 09:53; Admin Dose 200 MG; Start 07/04/18 at 09:00 Caspofungin 50 mg/ Sodium Chloride 250 ml @ 250 mls/hr Q24H IVPB ; Start 07/06/18 at 16:00 Meropenem/Sodium Chloride 50 ml @ 100 mls/hr Q12 IVPB ; Start 07/05/18 at 16:00 TORRI BENSON MD Jul 05, 2018 19:12
[2018-07-05] MEDS ORDERED: NA POLYST SULFON 15 GM/60 ML BTL PO ONE (19:30)
--- NOTE | 2018-07-05 21:28 | PN ---
DATE: 07/05/2018 HISTORY OF PRESENT ILLNESS: An 82-year-old female who was admitted for acute leg pain. The patient with past medical history of renal carcinoma, recurrent, atherosclerotic vascular disease, CHF, atria l fibrillation on anticoagulation, type 2 diabetes mellitus with polyneuropathy and polyvascular dise ase, Alzheimer dementia, mild to moderate degenerative joint disease and chronic anemia. The patient came in with pain in the thrombotic lesion over the left lower extremity. She had a procedure done by Dr. Dawson with thrombectomy over the femoral artery. She tolerated the procedure well. Post- procedure after a couple of days, she started having pain again recurrent over the lower extremity, m ostly over the inguinal area with increased discomfort during urination and difficulty urinating. Th e patient was started on broad spectrum antibiotics. Urine cultures were done and today the patient is at this time sleeping. Son is at the bedside. He said that she was okay during the day. She ate a little bit of breakfast and lunch, but now she was sleepy and sleeping. He said that she did not complain of anything. She is more lethargic today and yesterday compared to the days before. PHYSICAL EXAMINATION: GENERAL: Patient is pale, sleeping. CHEST: AP contour within normal limits. Breasts and nipples are normal. HEART: AFib, controlled rate. LUNGS: Very little mild crackles over the bases of the lungs, otherwise negative. ABDOMEN: Soft, positive bowel sounds, no hepatosplenomegaly, no masses palpable over the abdomen and no rebound tenderness. EXTREMITIES: No edema, clubbing or cyanosis. Pulses are decreased, but palpable and she has tendern ess over the left inguinal area. VITAL SIGNS: Blood pressure is 159/77, heart rate is 99, respiratory rate 17, afebrile. LABORATORY DATA: Today, the patient was transfused 2 units of packed red blood cells yesterday upon my request. Hemoglobin being 6.6 today, white blood cells are 27.1, hemoglobin 10.3, hematocrit 32.0 and platelets are 324. Chemistry today, sodium 137, potassium 4.0, BUN 75, creatinine 2.63 and elev ated BNP. Urine is still cloudy and large amount of white blood cells and red blood cells. ASSESSMENT AND PLAN: I had a long discussion with the son who is at bedside again. I also discussed with Dr. Dawson, lab pack chemist also and mechanical test technician. The patient having acute on chronic renal f ailure, acute anemia, possibly bleeding in the inguinal area secondary to anticoagulation, which also was the initial problem a few weeks ago. Also, due to the atrial fibrillation, CHF, advanced age, t ype 2 diabetes mellitus with multiple complications, poor response to treatment, urinary obstruction, today, Dr. Abel was kind enough to put a Odonnell catheter in which released large amount of urine w hich helped with the patient with discomfort. We will keep the Odonnell catheter in at this time. Plan is to collect again another urine. Continue antibiotics per infectionist and we will follow. I exp lained in detail again to the son how sick the mother is and we will continue doing our best to her b eing a full code. I also explained the code status, but at this time he insists and wants the patien t to be full code. Dictated By: NUBIA TEJEDA MD SB/NTS Conf#: [id number] DID#: [id number] CC: ERNESTO MCGARRY MD;*EndCC*
[2018-07-05] MEDS: ATORVASTATIN 40 MG TAB PO SCH (22:17)
[2018-07-05] MEDS: GABAPENTIN 300 MG CAP PO SCH (22:17)
[2018-07-05] MEDS: BALSAM PERU/CASTOR OIL 60 GM TUBE TOP SCH (22:19)
[2018-07-06] VITALS (10 sets, daily range): BP systolic 114–138; BP diastolic 58–66; PULSE 72–114; RESP 16–18
[2018-07-06] MEDS: ACCU-CHEK XX SCH (02:12)
[2018-07-06] MEDS: PANTOPRAZOLE (EC) 40 MG TAB PO SCH (05:22)
[2018-07-06] MEDS: INSULIN ASPART [NOVOLOG] 3 ML PEN SC SCH ×7 (07:55→21:42)
[2018-07-06] MEDS: MAGNESIUM HYDROXIDE 30ML CUP PO SCH ×2 (08:24→21:00)
[2018-07-06] MEDS: MEROPENEM 500MG/50 ML (PMX) 50 ML IVPB SCH ×2 (08:24→21:25)
[2018-07-06] MEDS: DOCUSATE SODIUM 100 MG CAP PO SCH ×3 (08:24→21:00)
[2018-07-06] MEDS: COLLAGENASE 5 GM (UD JAR) TOP SCH (08:24)
[2018-07-06] MEDS: BALSAM PERU/CASTOR OIL 60 GM TUBE TOP SCH ×2 (08:25→21:42)
[2018-07-06] MEDS: AMIODARONE 200 MG TAB PO SCH (08:26)
[2018-07-06] MEDS: INSULIN GLARGINE [LANTus] (100 UNITS/ML) SYG SC SCH ×2 (08:35→21:42)
[2018-07-06] MEDS: VANCOMYCIN 1 GM 250 ML IVPB SCH (11:10)
--- NOTE | 2018-07-06 11:41 | CONS ---
Assessment/Plan Assessment/Plan Hospital Course (Demo Recall) No events, Tm 100.6 yesterday, no fevers, Odonnell in Microbiology: Blood cultures negative, urine culture growing yeast Diagnostics: Ultrasound of left lower extremity revealed 5 cm depressed co ntaining collection in the superficial soft tissue of the left inguinal region finding could reflect hematoma possible abscess. Please see full report in the chart. CT abdomen and pelvis from yesterday revealed distended urinary bladder with mild bilateral hydronephrosis without evidence of obstructing renal stone. Stable postsurgical changes of partial left nephrectomy. 4.4 x 2.5 cm lobulated region of soft tissue density with small foci of air surrounding stranding in the left groin adjacent to the left femoral artery. Please see full report in the chart Antimicrobials: Cancidas Merrem Vancomycin Physical examination: This is obese well-developed pleasant [place] woman who is in no distress. Head atraumatic normocephalic sclera nonicteric. Neck is supple. Chest rise symmetrical breath sounds clear, diminished bases. Heart: S1-S2. Abdomen soft, bowel sounds present. Extremities without cyanosis. Left lower extremity dressing intact Assessment: 1. Systemic inflammatory response syndrome with leukocytosis==> multifactorial 2. Left groin hematoma versus abscess 3. Urinary tract infection 4. Urinary retention, s/p Odonnell 5. Occlusive left common femoral artery status post thrombectomy 6. Coronary artery disease, history of CABG 7. Paroxysmal atrial fibrillation 8. Diabetes 9. Abnormal 2D echo, rule out vegetations versus thrombus versus tumor on the right atrium 10. History of renal cell carcinoma status post partial nephrectomy Plan: Patient is clinically stable, wbc decreasing, continue abx. Consultation Date/Type/Reason Admit Date/Time Jun 25, 2018 at 06:24 Initial Consult Date 06/26/18 Type of Consult id Requesting Provider: NUBIA TEJEDA MD Date/Time of Note DATE: 07/06/18 TIME: 11:38 Exam/Review of Systems Exam Vitals Vital Signs Date Temp Pulse Resp B/P (MAP) Pulse Ox O2 O2 Flow FiO2 Time Delivery Rate 07/06/18 94 08:00 07/06/18 Nasal 2.0 07:40 Cannula 07/06/18 98.7 16 135/66 97 07:39 (89) Intake and Output 07/05/18 07/05/18 07/06/18 1515:00 23:00 07:00 IntakeIntake Total 480 ml 500 ml OutputOutput Total 1550 ml 1400 ml BalanceBalance -1070 ml -900 ml Results Result Diagram: 07/06/18 0556 07/06/18 0556 Results 24hrs Laboratory Tests Test 07/05/18 12:33 07/05/18 22:18 07/06/18 02:11 07/06/18 05:56 Bedside Glucose 165 115 131 White Blood Count 17.6 #H Red Blood Count 3.36 L Hemoglobin 9.5 L Hematocrit 30.0 L Mean Corpuscular Volume 89.3 Mean Corpuscular 28.3 L Hemoglobin Mean Corpuscular 31.7 L Hemoglobin Concent Red Cell Distribution 15.0 H Width Platelet Count 311 Mean Platelet Volume 11.1 H Immature Granulocytes % 1.300 H Neutrophils % 84.1 H Lymphocytes % 6.7 L Monocytes % 6.8 Eosinophils % 0.9 Basophils % 0.2 Nucleated Red Blood 0.2 H Cells % Immature Granulocytes # 0.230 H Neutrophils # 14.8 H Lymphocytes # 1.2 Monocytes # 1.2 H Eosinophils # 0.2 Basophils # 0.0 Nucleated Red Blood 0.0 Cells # Sodium Level 139 Potassium Level 4.5 Chloride Level 103 Carbon Dioxide Level 31 Anion Gap 5 Blood Urea Nitrogen 71 H Creatinine 2.11 H Est Glomerular Filtrat Rate mL/min Glucose Level 99 Calcium Level 8.4 B-Type Natriuretic 96311 H Peptide Random Vancomycin Level 11.0 Test 07/06/18 08:02 Bedside Glucose 81 Medications Medication Current Medications Atorvastatin Calcium (Lipitor) 40 mg QHS PO Last administered on 07/05/18at 22:17; Admin Dose 40 MG; Start 06/25/18 at 21:00 Docusate Sodium (Colace) 100 mg TID PO Last administered on 07/06/18at 08:24; Admin Dose 100 MG; Start 06/25/18 at 13:00 Miscellaneous Information 1 ea NOTE XX ; Start 06/25/18 at 11:30 Glucose (Glutose) 15 gm Q15M PRN PO DECREASED GLUCOSE; Start 06/25/18 at 11:30 Glucose (Glutose) 22.5 gm Q15M PRN PO DECREASED GLUCOSE; Start 06/25/18 at 11:30 Dextrose (D50w Syringe) 25 ml Q15M PRN IV DECREASED GLUCOSE; Start 06/25/18 at 11:30 Dextrose (D50w Syringe) 50 ml Q15M PRN IV DECREASED GLUCOSE; Start 06/25/18 at 11:30 Glucagon (Glucagen) 1 mg Q15M PRN IM DECREASED GLUCOSE; Start 06/25/18 at 11:30 Glucose (Glutose) 15 gm Q15M PRN BUCCAL DECREASED GLUCOSE; Start 06/25/18 at 11:30 Diagnostic Test (Pha) (Accu-Chek) 1 ea 02 XX Last administered on 07/06/18at 02:12; Admin Dose 1 EA; Start 06/26/18 at 02:00 Ondansetron HCl (Zofran Inj) 4 mg Q4H PRN IV NAUSEA AND/OR VOMITING Last administered on 07/03/18 19:04; Admin Dose 4 MG; Start 06/28/18 at 01:30 Clonidine (Catapres) 0.1 mg BID PRN PO SBP > 180 Last administered on 06/30/18at 23:33; Admin Dose 0.1 MG; Start 06/28/18 at 14:00 Acetaminophen (Tylenol Tab) 650 mg Q4H PRN PO MILD PAIN(1-3)OR ELEVATED TEMP Last administered on 07/05/18 15:37; Admin Dose 650 MG; Start 06/29/18 at 09:30 Gabapentin (Neurontin) 300 mg HS PO Last administered on 07/05/18 22:17; Admin Dose 300 MG; Start 06/29/18 at 21:00 Pantoprazole (Protonix Tab) 40 mg DAILY@06 PO Last administered on 07/06/18 05:22; Admin Dose 40 MG; Start 06/30/18 at 06:00 Miscellaneous Information (Pending Santyl Order For Wound Care) This patient green... PRN PRN XX WOUND CARE; Start 06/30/18 at 08:00 Collagenase (Santyl) 1 applic DAILY TOP Last administered on 07/06/18 08:24; Admin Dose 1 APPLIC; Start 07/02/18 at 09:00 Epoetin Alejo-epbx (Retacrit) 6,000 unit TuThSa@1700 SC Last administered on 07/05/18 17:00; Admin Dose 6,000 UNIT; Start 07/01/18 at 17:00 Lorazepam (Ativan) 0.5 mg Q8H PRN PO ANXIETY; Start 07/01/18 at 16:30 Morphine Sulfate (morphine) 6 mg Q4H PRN PO SEVERE PAIN LEVEL 7-10; Start 07/01/18 at 16:30 Insulin Aspart (Novolog Insulin Pen) NOVOLOG *MODERATE* ALGORITHM WITH MEALS BEDTIME SC Last administered on 07/05/18 12:40; Admin Dose 2 UNIT; Start 07/01/18 at 21:00 Magnesium Hydroxide (Milk Of Mag) 30 ml BID PO Last administered on 07/06/18 08:24; Admin Dose 30 ML; Start 07/02/18 at 09:00 Vancomycin HCl (Vanco Iv Per Pharmacy) VANCOMYCIN PER PHARMACY PER PROTOCOL XX ; Start 07/02/18 at 12:30 Insulin Glargine (Lantus) 50 units BID SC Last administered on 07/06/18 08:35; Admin Dose 50 UNITS; Start 07/02/18 at 21:00 Insulin Aspart (Novolog Insulin Pen) 6 unit WITH MEALS SC Last administered on 07/06/18 08:20; Admin Dose 6 UNIT; Start 07/03/18 at 07:55 Amiodarone HCl (Cordarone) 200 mg DAILY PO Last administered on 07/06/18 08:26; Admin Dose 200 MG; Start 07/04/18 at 09:00 Caspofungin 50 mg/ Sodium Chloride 250 ml @ 250 mls/hr Q24H IVPB ; Start 07/06/18 at 16:00 Meropenem/Sodium Chloride 50 ml @ 100 mls/hr Q12 IVPB Last administered on 07/06/18 08:24; Admin Dose 100 MLS/HR; Start 07/06/18 at 09:00 Vancomycin HCl 250 ml @ 125 mls/hr Q48H IVPB Last administered on 07/06/18 11:10; Admin Dose 125 MLS/HR; Start 07/06/18 at 11:00 BARBARA ORDAZ NP Jul 06, 2018 11:41
--- NOTE | 2018-07-06 14:08 | CONS ---
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 -Anticoagulant on hold secondary to acute blood loss anemia requiring blood transfusion. Aspirin also has been stopped. Would follow hemoglobin, if remains stable, would consider restarting anticoagulation -Lung examination improved. Diuretics as needed -Continue to hold any nephrotoxic medications, patient being followed by nephrology. Consultation Date/Type/Reason Admit Date/Time Jun 25, 2018 at 06:24 Initial Consult Date 06/25/18 Type of Consult Cardiology Requesting Provider: NUBIA TEJEDA MD Date/Time of Note DATE: 07/06/18 TIME: 14:06 24 HR Interval Summary Free Text/Dictation Denies shortness of breath, chest pain, palpitations. Leg pain is improved Exam/Review of Systems Vital Signs Vitals Vital Signs Date Temp Pulse Resp B/P (MAP) Pulse Ox O2 O2 Flow FiO2 Time Delivery Rate 07/06/18 86 12:00 07/06/18 98.2 18 118/59 98 11:45 (78) 07/06/18 Nasal 2.0 07:40 Cannula Intake and Output 07/05/18 07/05/18 07/06/18 1515:00 23:00 07:00 IntakeIntake Total 480 ml 500 ml OutputOutput Total 1550 ml 1400 ml BalanceBalance -1070 ml -900 ml Exam Constitutional: alert, oriented (No apparent distress, multiple family members at bedside) Respiratory: other (Coarse breath sounds bilaterally, no wheezing) Cardiovascular: regular rate and rhythm (S1-S2 heard) Gastrointestinal: soft, non-tender, bowel sounds Extremities: edema Labs Result Diagram: 07/06/18 0556 07/06/18 0556 Results 24hrs Laboratory Tests Test 07/05/18 22:18 07/06/18 02:11 07/06/18 05:56 07/06/18 08:02 Bedside Glucose 115 131 81 White Blood Count 17.6 #H Red Blood Count 3.36 L Hemoglobin 9.5 L Hematocrit 30.0 L Mean Corpuscular Volume 89.3 Mean Corpuscular 28.3 L Hemoglobin Mean Corpuscular 31.7 L Hemoglobin Concent Red Cell Distribution 15.0 H Width Platelet Count 311 Mean Platelet Volume 11.1 H Immature Granulocytes % 1.300 H Neutrophils % 84.1 H Lymphocytes % 6.7 L Monocytes % 6.8 Eosinophils % 0.9 Basophils % 0.2 Nucleated Red Blood 0.2 H Cells % Immature Granulocytes # 0.230 H Neutrophils # 14.8 H Lymphocytes # 1.2 Monocytes # 1.2 H Eosinophils # 0.2 Basophils # 0.0 Nucleated Red Blood 0.0 Cells # Sodium Level 139 Potassium Level 4.5 Chloride Level 103 Carbon Dioxide Level 31 Anion Gap 5 Blood Urea Nitrogen 71 H Creatinine 2.11 H Est Glomerular Filtrat Rate mL/min Glucose Level 99 Calcium Level 8.4 B-Type Natriuretic 69924 H Peptide Random Vancomycin Level 11.0 Test 07/06/18 11:39 Bedside Glucose 197 Medications Medications Current Medications Atorvastatin Calcium (Lipitor) 40 mg QHS PO Last administered on 07/05/18at 22:17; Admin Dose 40 MG; Start 06/25/18 at 21:00 Docusate Sodium (Colace) 100 mg TID PO Last administered on 07/06/18at 12:32; Admin Dose 100 MG; Start 06/25/18 at 13:00 Miscellaneous Information 1 ea NOTE XX ; Start 06/25/18 at 11:30 Glucose (Glutose) 15 gm Q15M PRN PO DECREASED GLUCOSE; Start 06/25/18 at 11:30 Glucose (Glutose) 22.5 gm Q15M PRN PO DECREASED GLUCOSE; Start 06/25/18 at 11:30 Dextrose (D50w Syringe) 25 ml Q15M PRN IV DECREASED GLUCOSE; Start 06/25/18 at 11:30 Dextrose (D50w Syringe) 50 ml Q15M PRN IV DECREASED GLUCOSE; Start 06/25/18 at 11:30 Glucagon (Glucagen) 1 mg Q15M PRN IM DECREASED GLUCOSE; Start 06/25/18 at 11:30 Glucose (Glutose) 15 gm Q15M PRN BUCCAL DECREASED GLUCOSE; Start 06/25/18 at 11:30 Diagnostic Test (Pha) (Accu-Chek) 1 ea 02 XX Last administered on 07/06/18at 02:12; Admin Dose 1 EA; Start 06/26/18 at 02:00 Ondansetron HCl (Zofran Inj) 4 mg Q4H PRN IV NAUSEA AND/OR VOMITING Last administered on 07/03/18 19:04; Admin Dose 4 MG; Start 06/28/18 at 01:30 Clonidine (Catapres) 0.1 mg BID PRN PO SBP > 180 Last administered on 06/30/18 23:33; Admin Dose 0.1 MG; Start 06/28/18 at 14:00 Acetaminophen (Tylenol Tab) 650 mg Q4H PRN PO MILD PAIN(1-3)OR ELEVATED TEMP Last administered on 07/05/18 15:37; Admin Dose 650 MG; Start 06/29/18 at 09:30 Gabapentin (Neurontin) 300 mg HS PO Last administered on 07/05/18 22:17; Admin Dose 300 MG; Start 06/29/18 at 21:00 Pantoprazole (Protonix Tab) 40 mg DAILY@06 PO Last administered on 07/06/18 05:22; Admin Dose 40 MG; Start 06/30/18 at 06:00 Miscellaneous Information (Pending Santyl Order For Wound Care) This patient green... PRN PRN XX WOUND CARE; Start 06/30/18 at 08:00 Collagenase (Santyl) 1 applic DAILY TOP Last administered on 07/06/18 08:24; Admin Dose 1 APPLIC; Start 07/02/18 at 09:00 Epoetin Alejo-epbx (Retacrit) 6,000 unit TuThSa@1700 SC Last administered on 07/05/18 17:00; Admin Dose 6,000 UNIT; Start 07/01/18 at 17:00 Lorazepam (Ativan) 0.5 mg Q8H PRN PO ANXIETY; Start 07/01/18 at 16:30 Morphine Sulfate (morphine) 6 mg Q4H PRN PO SEVERE PAIN LEVEL 7-10; Start 07/01/18 at 16:30 Insulin Aspart (Novolog Insulin Pen) NOVOLOG *MODERATE* ALGORITHM WITH MEALS BEDTIME SC Last administered on 07/06/18 11:44; Admin Dose 4 UNIT; Start 07/01/18 at 21:00 Magnesium Hydroxide (Milk Of Mag) 30 ml BID PO Last administered on 07/06/18 08:24; Admin Dose 30 ML; Start 07/02/18 at 09:00 Vancomycin HCl (Vanco Iv Per Pharmacy) VANCOMYCIN PER PHARMACY PER PROTOCOL XX ; Start 07/02/18 at 12:30 Insulin Glargine (Lantus) 50 units BID SC Last administered on 07/06/18 08:35; Admin Dose 50 UNITS; Start 07/02/18 at 21:00 Insulin Aspart (Novolog Insulin Pen) 6 unit WITH MEALS SC Last administered on 07/06/18 11:45; Admin Dose 6 UNIT; Start 07/03/18 at 07:55 Amiodarone HCl (Cordarone) 200 mg DAILY PO Last administered on 07/06/18 08:26; Admin Dose 200 MG; Start 07/04/18 at 09:00 Caspofungin 50 mg/ Sodium Chloride 250 ml @ 250 mls/hr Q24H IVPB ; Start 07/06/18 at 16:00 Meropenem/Sodium Chloride 50 ml @ 100 mls/hr Q12 IVPB Last administered on 07/06/18 08:24; Admin Dose 100 MLS/HR; Start 07/06/18 at 09:00 Vancomycin HCl 250 ml @ 125 mls/hr Q48H IVPB Last administered on 07/06/18 11:10; Admin Dose 125 MLS/HR; Start 07/06/18 at 11:00 Alex Chávez DO Jul 06, 2018 14:08
--- NOTE | 2018-07-06 15:13 | PN ---
DATE: 07/06/2018 The patient came in for acute pain over the lower extremities, thrombus over the left femoral area. Thrombectomy done by Dr. Dawson. Also acute renal failure, on chronic renal failure, type 2 diabe kwame mellitus, uncontrolled; hypertension with CHF and chronic kidney disease, degenerative joint dise ase, gastroesophageal reflux disease and Alzheimer disease. The patient had thrombectomy by Dr. Michael kerr. Kidney function gradually got better and then worse again secondary to possibly IV dye and ur inary retention. Now, the patient has Odonnell catheter, urinating much better, elevated white count se condary to infection, possibly urine. GENERAL: Today, the patient is alert and oriented x3 in no acute distress. VITAL SIGNS: Blood pressure 118/59, heart rate is 95, respiratory rate 18, afebrile. The patient does not have any complaints. She denies of any chest pain, shortness of breath, cough, abdominal pain, nausea, vomiting, hesitancy, urgency, no complaints at this time. PHYSICAL EXAMINATION: HEENT: Atraumatic, normocephalic. Pupils are equal and reactive to light. Extraocular muscles are intact. NECK: Supple. No JVD, no surgical scars, no lymph nodes palpable over the neck. CHEST: AP contour within normal limits. Breasts and nipples are normal, no nipple retraction. HEART: AFib, controlled rate with cardiomegaly. LUNGS: Very mild basilar crackles over the lungs, otherwise negative. ABDOMEN: Soft, positive bowel sounds, no hepatosplenomegaly, no masses palpable over the abdomen and no rebound tenderness. EXTREMITIES: No edema, clubbing or cyanosis of the extremities. Pulses are palpable, but decreased. NEUROLOGIC: No neurologic deficits at this time. LABORATORY DATA: Today, CBC, white blood cells 17.6, yesterday 27.1, decreased hemoglobin 9.5, hemat ocrit 30.0 and platelet count 31. Chemistry today, much better than yesterday. Sodium 139, potassiu m 4.5, BUN 71, creatinine 2.11, much improvement since yesterday. Urine culture still pending. She has preliminary culture and has yeast and Carmella. ASSESSMENT AND PLAN: We will continue antifungal infection, antibiotics and broad-spectrum antibioti cs. We will continue. The patient is responding very well. We will continue IV hydration. We will restart physical therapy tomorrow since the patient is much more alert and oriented and we will foll ow. I had a long discussion with the [id number], who is at the bedside, and explained in detail the results and the progress. Dictated By: NUBIA BREWER/JAYDEN Conf#: [id number] DID#: [id number]
[2018-07-06] MEDS: CASPOFUNGIN 50 MG in SOD CHLORIDE 0.9% 250 ML IVPB SCH (16:09)
[2018-07-06] MEDS: ACETAMINOPHEN 325 MG TAB PO PRN (16:14)
[2018-07-06] MEDS: HYDROCODONE/APAP (5/325) TAB PO PRN (21:00)
[2018-07-06] MEDS: GABAPENTIN 300 MG CAP PO SCH (21:30)
[2018-07-06] MEDS: ATORVASTATIN 40 MG TAB PO SCH (21:30)
[2018-07-06] MEDS ORDERED: MAGNESIUM SULFATE 1 GM/D5W 100 ML IVPB ONE (22:30)
[2018-07-07] VITALS (9 sets, daily range): BP systolic 132–157; BP diastolic 61–72; PULSE 75–103; RESP 17–20
[2018-07-07] MEDS: ACCU-CHEK XX SCH (02:35)
[2018-07-07] MEDS: PANTOPRAZOLE (EC) 40 MG TAB PO SCH (06:08)
[2018-07-07] MEDS: INSULIN ASPART [NOVOLOG] 3 ML PEN SC SCH ×7 (07:55→20:37)
--- NOTE | 2018-07-07 08:15 | CONS ---
Consult Date/Type/Reason Admit Date/Time Jun 25, 2018 at 06:24 Initial Consult Date 06/26/18 Type of Consultation: Urology Reason for Consultation Urinary retention Requesting Provider: NUBIA TEJEDA MD Date/Time of Note DATE: 07/07/18 TIME: 08:12 Objective Vitals Vital Signs Date Temp Pulse Resp B/P (MAP) Pulse Ox O2 O2 Flow FiO2 Time Delivery Rate 07/07/18 99.6 100 20 138/66 96 Nasal 07:26 (90) Cannula 07/07/18 2.0 03:28 Intake and Output 07/06/18 07/06/18 07/07/18 1515:00 23:00 07:00 IntakeIntake Total 1000 ml 200 ml OutputOutput Total 1100 ml 1150 ml BalanceBalance -100 ml -950 ml Exam Odonnell catheter is draining clear urine Results/Medications Result Diagram: 07/07/18 0552 07/07/18 0552 Results 24 hrs Laboratory Tests Test 07/06/18 11:39 07/06/18 17:08 07/06/18 20:59 07/07/18 02:36 Bedside Glucose 197 205 187 102 Test 07/07/18 05:52 White Blood Count 21.3 #H Red Blood Count 3.66 L Hemoglobin 10.3 L Hematocrit 32.6 L Mean Corpuscular Volume 89.1 Mean Corpuscular 28.1 L Hemoglobin Mean Corpuscular 31.6 L Hemoglobin Concent Red Cell Distribution 14.9 H Width Platelet Count 372 Mean Platelet Volume 10.6 H Immature Granulocytes % 0.700 H Neutrophils % 80.6 H Lymphocytes % 8.8 L Monocytes % 8.6 Eosinophils % 1.1 Basophils % 0.2 Nucleated Red Blood 0.1 H Cells % Immature Granulocytes # 0.140 H Neutrophils # 17.1 H Lymphocytes # 1.9 Monocytes # 1.8 H Eosinophils # 0.2 Basophils # 0.1 Nucleated Red Blood 0.0 Cells # Sodium Level 137 Potassium Level 4.7 Chloride Level 101 Carbon Dioxide Level 32 H Anion Gap 4 L Blood Urea Nitrogen 59 H Creatinine 1.73 H Est Glomerular Filtrat Rate mL/min Glucose Level 70 Calcium Level 8.4 Magnesium Level 2.9 H Home Meds Reported Medications Clonidine Hcl* (Clonidine Hcl*) 0.1 Mg Tab, 0.1 MG PO Q8, TAB 06/25/18 Furosemide* (Furosemide*) 20 Mg Tablet, 20 MG PO DAILY 06/25/18 Carvedilol* (Carvedilol*) 3.125 Mg Tablet, 3.125 MG PO BID for 30 Days, #60 06/25/18 Amiodarone Hcl* (Amiodarone Hcl*) 200 Mg Tablet, 200 MG PO BID, #60 TAB 06/17/18 Dulaglutide (Trulicity) 0.75 Mg/0.5 Ml Pen.injctr, 1.75 MG SQ WEEKLY 06/11/18 Insulin Glargine,Hum.rec.anlog (Basaglar Kwikpen U-100) 100 Unit/1 Ml Insuln.pen, 20 UNIT SC DAILY, EA 06/11/18 Ferrous Sulfate (Ferrous Sulfate) 325 Mg Tablet.dr, 325 MG PO DAILY 06/11/18 Aspirin* (Aspirin* EC) 81 Mg Tablet.dr, 81 MG PO DAILY, TAB 06/11/18 Empagliflozin (Jardiance) 10 Mg Tablet, 10 MG PO DAILY, TAB 06/11/18 Esomeprazole Mag Trihydrate (Nexium) 20 Mg Capsule.dr, 20 MG PO AC BREAKFAST, #30 CAP 06/11/18 Docusate Sodium* (Colace*) 100 Mg Capsule, 100 MG PO TID, #60 CAP 06/11/18 Allopurinol* (Allopurinol*) 100 Mg Tablet, 100 MG PO BID, TAB 06/11/18 Discontinued Reported Medications Ergocalciferol (Vitamin D2) (VITAMIN D2) 2,000 Unit Tablet, 2000 UNIT PO DAILY, TAB 06/11/18 Alendronate Sodium* (Fosamax*) 70 Mg Tablet, 70 MG PO Q7D PRN for QMONDAYS, #4 TAB 06/11/18 Atenolol* (Atenolol*) 25 Mg Tablet, 25 MG PO BID, #60 TAB 06/11/18 Gabapentin* (Gabapentin*) 100 Mg Capsule, 100 MG PO QHS, #90 CAP 06/11/18 Meloxicam* (Meloxicam*) 7.5 Mg Tablet, 7.5 MG PO DAILY, #30 TAB 06/11/18 Calcium Carbonate/Vitamin D3 (OYSTER SHELL 500 MG + VIT D TB) 1 Each Tablet, 1 EACH PO BID, TAB 06/11/18 Metformin* (Glucophage*) 500 Mg Tab, 500 MG PO BID, #90 TAB 06/11/18 Atorvastatin* (Atorvastatin*) 40 Mg Tablet, 40 MG PO QHS, #30 TAB 06/11/18 Medications Current Medications Atorvastatin Calcium (Lipitor) 40 mg QHS PO Last administered on 07/06/18 21:30; Admin Dose 40 MG; Start 06/25/18 at 21:00 Docusate Sodium (Colace) 100 mg TID PO Last administered on 07/06/18at 12:32; Admin Dose 100 MG; Start 06/25/18 at 13:00 Miscellaneous Information 1 ea NOTE XX ; Start 06/25/18 at 11:30 Glucose (Glutose) 15 gm Q15M PRN PO DECREASED GLUCOSE; Start 06/25/18 at 11:30 Glucose (Glutose) 22.5 gm Q15M PRN PO DECREASED GLUCOSE; Start 06/25/18 at 11:30 Dextrose (D50w Syringe) 25 ml Q15M PRN IV DECREASED GLUCOSE; Start 06/25/18 at 11:30 Dextrose (D50w Syringe) 50 ml Q15M PRN IV DECREASED GLUCOSE; Start 06/25/18 at 11:30 Glucagon (Glucagen) 1 mg Q15M PRN IM DECREASED GLUCOSE; Start 06/25/18 at 11:30 Glucose (Glutose) 15 gm Q15M PRN BUCCAL DECREASED GLUCOSE; Start 06/25/18 at 11:30 Diagnostic Test (Pha) (Accu-Chek) 1 ea 02 XX Last administered on 07/07/18at 02:35; Admin Dose 1 EA; Start 06/26/18 at 02:00 Ondansetron HCl (Zofran Inj) 4 mg Q4H PRN IV NAUSEA AND/OR VOMITING Last administered on 07/03/18 19:04; Admin Dose 4 MG; Start 06/28/18 at 01:30 Clonidine (Catapres) 0.1 mg BID PRN PO SBP > 180 Last administered on 06/30/18 23:33; Admin Dose 0.1 MG; Start 06/28/18 at 14:00 Acetaminophen (Tylenol Tab) 650 mg Q4H PRN PO MILD PAIN(1-3)OR ELEVATED TEMP Last administered on 07/06/18at 16:14; Admin Dose 650 MG; Start 06/29/18 at 09:30 Gabapentin (Neurontin) 300 mg HS PO Last administered on 07/06/18 21:30; Admin Dose 300 MG; Start 06/29/18 at 21:00 Pantoprazole (Protonix Tab) 40 mg DAILY@06 PO Last administered on 07/07/18 06:08; Admin Dose 40 MG; Start 06/30/18 at 06:00 Miscellaneous Information (Pending Santyl Order For Wound Care) This patient green... PRN PRN XX WOUND CARE; Start 06/30/18 at 08:00 Collagenase (Santyl) 1 applic DAILY TOP Last administered on 07/06/18 08:24; Admin Dose 1 APPLIC; Start 07/02/18 at 09:00 Epoetin Alejo-epbx (Retacrit) 6,000 unit TuThSa@1700 SC Last administered on 07/05/18 17:00; Admin Dose 6,000 UNIT; Start 07/01/18 at 17:00 Lorazepam (Ativan) 0.5 mg Q8H PRN PO ANXIETY; Start 07/01/18 at 16:30 Morphine Sulfate (morphine) 6 mg Q4H PRN PO SEVERE PAIN LEVEL 7-10; Start 07/01/18 at 16:30 Insulin Aspart (Novolog Insulin Pen) NOVOLOG *MODERATE* ALGORITHM WITH MEALS BEDTIME SC Last administered on 07/06/18 21:42; Admin Dose 1 UNIT; Start at 21:00 Magnesium Hydroxide (Milk Of Mag) 30 ml BID PO Last administered on 07/06/18 08:24; Admin Dose 30 ML; Start 07/02/18 at 09:00 Vancomycin HCl (Vanco Iv Per Pharmacy) VANCOMYCIN PER PHARMACY PER PROTOCOL XX ; Start 07/02/18 at 12:30 Insulin Glargine (Lantus) 50 units BID SC Last administered on 07/06/18 21:42; Admin Dose 50 UNITS; Start 07/02/18 at 21:00 Insulin Aspart (Novolog Insulin Pen) 6 unit WITH MEALS SC Last administered on 07/06/18 17:12; Admin Dose 6 UNIT; Start 07/03/18 at 07:55 Amiodarone HCl (Cordarone) 200 mg DAILY PO Last administered on 07/06/18 08:26; Admin Dose 200 MG; Start 07/04/18 at 09:00 Caspofungin 50 mg/ Sodium Chloride 250 ml @ 250 mls/hr Q24H IVPB Last administered on 07/06/18at 16:09; Admin Dose 250 MLS/HR; Start 07/06/18 at 16:00 Meropenem/Sodium Chloride 50 ml @ 100 mls/hr Q12 IVPB Last administered on 07/06/18at 21:25; Admin Dose 100 MLS/HR; Start 07/06/18 at 09:00 Vancomycin HCl 250 ml @ 125 mls/hr Q48H IVPB Last administered on 07/06/18at 11: 10; Admin Dose 125 MLS/HR; Start 07/06/18 at 11:00 Acetaminophen/ Hydrocodone Bitart ([place] (5/325)) 1 tab Q4H PRN PO sever pain Last administered on 07/06/18at 21:00; Admin Dose 1 TAB; Start 07/06/18 at 18:00 Assessment/Plan Hospital Course (Demo Recall) 82-year-old female who has the following problems: Occlusive left common femoral artery status post thrombectomy Acute kidney injury Acute decompensated systolic congestive heart failure-improving 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 And the bladder scan showed that she is in urinary retention and the bladder was very distended. I was asked to help and see if I could put a catheter for her. I do know this patient from before and I have seen her during her last visit last month A Odonnell catheter was then inserted and 1500 mL drained out. The catheter is draining well and the urine is clear. Urine culture is showing yeast. The patient is on caspofungin. Continue present treatment ERIK CHILDERS MD Jul 07, 2018 08:15
[2018-07-07] MEDS: MAGNESIUM HYDROXIDE 30ML CUP PO SCH ×2 (08:29→20:38)
[2018-07-07] MEDS: MEROPENEM 500MG/50 ML (PMX) 50 ML IVPB SCH ×2 (08:29→21:57)
[2018-07-07] MEDS: COLLAGENASE 5 GM (UD JAR) TOP SCH (08:29)
[2018-07-07] MEDS: AMIODARONE 200 MG TAB PO SCH (08:30)
[2018-07-07] MEDS: DOCUSATE SODIUM 100 MG CAP PO SCH ×3 (08:30→20:38)
[2018-07-07] MEDS: BALSAM PERU/CASTOR OIL 60 GM TUBE TOP SCH ×2 (08:32→20:38)
[2018-07-07] MEDS: INSULIN GLARGINE [LANTus] (100 UNITS/ML) SYG SC SCH ×2 (09:00→17:00)
--- NOTE | 2018-07-07 10:08 | PN ---
DATE: 07/07/2018 SUBJECTIVE: This is an 82-year-old female who was brought in for acute pain of the lower extremity t hrombus of the left lower extremity, congestive heart failure, atrial fibrillation, atherosclerotic v ascular disease, chronic kidney disease, kidney cancer and the patient had a thrombectomy done, antic oagulated, tolerated anticoagulation well, but then started having elevated white count today on 10/2017, the patient has temperature of 99. Alert and oriented x3, in no acute distress. She denies of any pain. She denies of any chest pain, shortness of breath, abdominal pain, nausea, vomiting, he sitancy, urgency or pain during urination. OBJECTIVE: VITAL SIGNS: Today blood pressure is 138/66, heart rate is 100, temperature is 99.6, and saturation 96% on 2 liters of oxygen. HEENT: Atraumatic, normocephalic. Pupils are equal and reactive to light. Extraocular muscles are intact. Nares are clear, no obstruction, no deviation of septum. Oral cavity normal oral hygiene. Ear canals are clear, no signs of inflammation or infection. Tympanic membranes are intact. NECK: Supple. No JVD, no surgical scars, no lymph nodes palpable over the neck. CHEST: AP contour is within normal limits. Breasts and nipples are normal, no nipple retraction. HEART: Heart is atrial fibrillation, controlled rate with cardiomegaly. LUNGS: Scattered crackles over the bases of the lungs, otherwise negative. ABDOMEN: Soft, positive bowel sounds, no hepatosplenomegaly, no masses palpable over the abdomen and no rebound tenderness. EXTREMITIES: No edema, clubbing or cyanosis. Pulses are palpable but diminished but palpable. Warm legs. No lesions. LABORATORY DATA: Today CBC: Elevated white blood cells 21.3 compared to yesterday 17.6, hemoglobin is 10.3, hematocrit 32.6 and platelet count 372. Chemistry: Sodium 137, potassium 4.7, BUN is 59, c reatinine 1.73. Microbiology: Her urine culture is positive for renetta and yeast infection. The p atient is on antibiotics for antifungal medications at this time. ASSESSMENT: 1. Urinary tract infection, status post thrombectomy. 2. Acute on chronic kidney disease. 3. Hydronephrosis. 4. Type 2 diabetes mellitus, uncontrolled. 5. Renal carcinoma. 6. Atrial fibrillation. 7. Congestive heart failure status post vascular disease. PLAN: Discussed with the son who was by the bedside. I explained to her improvement of the kidney f unctions, about elevation in white count and mild fever. We will advise the patient to have physical therapy today for sure and continue medications, but also discussed with ID specialist and we will f sarah. Dictated By: NUBIA TEJEDA MD SB/NTS Conf#: [id number] DID#: [id number] CC: NUBIA TEJEDA MD; ERIK CHILDERS MD; ERNESTO MCGARRY MD;*EndCC*
--- NOTE | 2018-07-07 11:54 | CONS ---
Assessment/Plan Assessment/Plan Assessment/Plan (Daily) - Acute Kidney Injury - Chronic Kidney Disease - DM / DM Nephropathy - Hyperkalemia - CAD / Post CABG - Hx of NSAID use - PVD / Ischemia - CAD / CHF - Anaemia - Hypertension / HTN Nephrosclerosis - High Cholesterol PLAN: - Poorly controlled DM with latest HgA1c > 10% & a long hx of NSAIDs use - BRANDON / CKD secondary to above with severe PVD / HTN Nephrosclerosis - Most probably require intervention which requires IV contrast & high risk Contrast Nephropathy at this point - At this point she is off all Nephrotoxic agents - Continue with Gentle hydration - Watch for sign of volume overload - Check: * URIC ACID * FENa * Urine Eosinophilia * Serial Creatinine check - Recovering BRANDON - Tolerated procedure well ( post Thrombectomy ) - Dropping H/H - Check IRON status - Start EPOGEN - Electrolytes stable - Slight increase in creatinine today - Avoid negative balance - Monitor H/H - On EPO - May need Blood transfusion - Stable CKD / BRANDON with improved creatinine - Monitor potassium closely - WBC increasing ? - Follow up with Culture results - H/H stable - On EPOGEN - Stable CKD / BRANDON - Creatinine improved - Post Transfusion - On EPO - IV Abx - Avoid High negative balance - Electrolytes stable Consultation Date/Type/Reason Admit Date/Time Jun 25, 2018 at 06:24 Initial Consult Date 06/26/18 Type of Consult - Nephrology Requesting Provider: NUBIA TEJEDA MD Date/Time of Note DATE: 07/07/18 TIME: 11:53 24 HR Interval Summary Constitutional: improved Exam/Review of Systems Exam Vitals Vital Signs Date Temp Pulse Resp B/P (MAP) Pulse Ox O2 O2 Flow FiO2 Time Delivery Rate 07/07/18 98.5 88 20 157/69 96 Nasal 11:19 (98) Cannula 07/07/18 2.0 08:00 Intake and Output 07/06/18 07/06/18 07/07/18 1515:00 23:00 07:00 IntakeIntake Total 1000 ml 200 ml OutputOutput Total 1100 ml 1150 ml BalanceBalance -100 ml -950 ml Constitutional: alert Psych: no complaints Head: normocephalic Respiratory: crackles/rales Cardiovascular: edema, systolic murmur Gastrointestinal: soft Results Result Diagram: 07/07/18 0552 07/07/18 0552 Results 24hrs Laboratory Tests Test 07/06/18 17:08 07/06/18 20:59 07/07/18 02:36 07/07/18 05:52 Bedside Glucose 205 187 102 White Blood Count 21.3 #H Red Blood Count 3.66 L Hemoglobin 10.3 L Hematocrit 32.6 L Mean Corpuscular 89.1 Volume Mean Corpuscular 28.1 L Hemoglobin Mean Corpuscular 31.6 L Hemoglobin Concent Red Cell 14.9 H Distribution Width Platelet Count 372 Mean Platelet 10.6 H Volume Immature 0.700 H Granulocytes % Neutrophils % 80.6 H Lymphocytes % 8.8 L Monocytes % 8.6 Eosinophils % 1.1 Basophils % 0.2 Nucleated Red Blood 0.1 H Cells % Immature 0.140 H Granulocytes # Neutrophils # 17.1 H Lymphocytes # 1.9 Monocytes # 1.8 H Eosinophils # 0.2 Basophils # 0.1 Nucleated Red Blood 0.0 Cells # Sodium Level 137 Potassium Level 4.7 Chloride Level 101 Carbon Dioxide 32 H Level Anion Gap 4 L Blood Urea Nitrogen 59 H Creatinine 1.73 H Est Glomerular Filtrat Rate mL/min Glucose Level 70 Calcium Level 8.4 Magnesium Level 2.9 H Test 07/07/18 08:23 07/07/18 08:25 07/07/18 09:01 Lab Scanned Report BLOOD TRANSFUSION Bedside Glucose 61 L 108 Medications Medication Current Medications Atorvastatin Calcium (Lipitor) 40 mg QHS PO Last administered on 07/06/18 21:3 0; Admin Dose 40 MG; Start 06/25/18 at 21:00 Docusate Sodium (Colace) 100 mg TID PO Last administered on 07/07/18 08:30; Admin Dose 100 MG; Start 06/25/18 at 13:00 Miscellaneous Information 1 ea NOTE XX ; Start 06/25/18 at 11:30 Glucose (Glutose) 15 gm Q15M PRN PO DECREASED GLUCOSE; Start 06/25/18 at 11:30 Glucose (Glutose) 22.5 gm Q15M PRN PO DECREASED GLUCOSE; Start 06/25/18 at 11:30 Dextrose (D50w Syringe) 25 ml Q15M PRN IV DECREASED GLUCOSE; Start 06/25/18 at 11:30 Dextrose (D50w Syringe) 50 ml Q15M PRN IV DECREASED GLUCOSE; Start 06/25/18 at 11:30 Glucagon (Glucagen) 1 mg Q15M PRN IM DECREASED GLUCOSE; Start 06/25/18 at 11:30 Glucose (Glutose) 15 gm Q15M PRN BUCCAL DECREASED GLUCOSE; Start 06/25/18 at 11:30 Diagnostic Test (Pha) (Accu-Chek) 1 ea 02 XX Last administered on 07/07/18at 02:35; Admin Dose 1 EA; Start 06/26/18 at 02:00 Ondansetron HCl (Zofran Inj) 4 mg Q4H PRN IV NAUSEA AND/OR VOMITING Last administered on 07/03/18 19:04; Admin Dose 4 MG; Start 06/28/18 at 01:30 Clonidine (Catapres) 0.1 mg BID PRN PO SBP > 180 Last administered on 06/30/18at 23:33; Admin Dose 0.1 MG; Start 06/28/18 at 14:00 Acetaminophen (Tylenol Tab) 650 mg Q4H PRN PO MILD PAIN(1-3)OR ELEVATED TEMP Last administered on 07/06/18 16:14; Admin Dose 650 MG; Start 06/29/18 at 09:30 Gabapentin (Neurontin) 300 mg HS PO Last administered on 07/06/18 21:30; Admin Dose 300 MG; Start 06/29/18 at 21:00 Pantoprazole (Protonix Tab) 40 mg DAILY@06 PO Last administered on 07/07/18 06:08; Admin Dose 40 MG; Start 06/30/18 at 06:00 Miscellaneous Information (Pending Santyl Order For Wound Care) This patient green... PRN PRN XX WOUND CARE; Start 06/30/18 at 08:00 Collagenase (Santyl) 1 applic DAILY TOP Last administered on 07/07/18 08:29; Admin Dose 1 APPLIC; Start 07/02/18 at 09:00 Epoetin Alejo-epbx (Retacrit) 6,000 unit TuThSa@1700 SC Last administered on 07/05/18 17:00; Admin Dose 6,000 UNIT; Start 07/01/18 at 17:00 Lorazepam (Ativan) 0.5 mg Q8H PRN PO ANXIETY; Start 07/01/18 at 16:30 Morphine Sulfate (morphine) 6 mg Q4H PRN PO SEVERE PAIN LEVEL 7-10; Start 07/01/18 at 16:30 Insulin Aspart (Novolog Insulin Pen) NOVOLOG *MODERATE* ALGORITHM WITH MEALS BEDTIME SC Last administered on 07/06/18 21:42; Admin Dose 1 UNIT; Start 07/01/18 at 21:00 Magnesium Hydroxide (Milk Of Mag) 30 ml BID PO Last administered on 07/07/18 08:29; Admin Dose 30 ML; Start 07/02/18 at 09:00 Vancomycin HCl (Vanco Iv Per Pharmacy) VANCOMYCIN PER PHARMACY PER PROTOCOL XX ; Start 07/02/18 at 12:30 Insulin Aspart (Novolog Insulin Pen) 6 unit WITH MEALS SC Last administered on 07/06/18 17:12; Admin Dose 6 UNIT; Start 07/03/18 at 07:55 Amiodarone HCl (Cordarone) 200 mg DAILY PO Last administered on 07/07/18 08:30; Admin Dose 200 MG; Start 07/04/18 at 09:00 Caspofungin 50 mg/ Sodium Chloride 250 ml @ 250 mls/hr Q24H IVPB Last administered on 07/06/18at 16:09; Admin Dose 250 MLS/HR; Start 07/06/18 at 16:00 Meropenem/Sodium Chloride 50 ml @ 100 mls/hr Q12 IVPB Last administered on 07/07/18at 08:29; Admin Dose 100 MLS/HR; Start 07/06/18 at 09:00 Vancomycin HCl 250 ml @ 125 mls/hr Q48H IVPB Last administered on 07/06/18at 11:10; Admin Dose 125 MLS/HR; Start 07/06/18 at 11:00 Acetaminophen/ Hydrocodone Bitart ([place] (5/325)) 1 tab Q4H PRN PO sever pain Last administered on 07/06/18at 21:00; Admin Dose 1 TAB; Start 07/06/18 at 18:00 Insulin Glargine (Lantus) 40 units DAILY SC ; Start 07/07/18 at 17:00 FRANCISCO MARISCAL MD Jul 07, 2018 11:54
--- NOTE | 2018-07-07 12:21 | CONS ---
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 -Anticoagulant on hold secondary to acute blood loss anemia requiring blood transfusion. Aspirin also has been stopped. Would follow hemoglobin, if remains stable, would consider restarting anticoagulation given concern for recurrent thromboembolic events -Diuretics as needed -Continue to hold any nephrotoxic medications, patient being followed by nephrology. Consultation Date/Type/Reason Admit Date/Time Jun 25, 2018 at 06:24 Initial Consult Date 06/25/18 Type of Consult Cardiology Requesting Provider: NUBIA TEJEDA MD Date/Time of Note DATE: 07/07/18 TIME: 12:20 24 HR Interval Summary Free Text/Dictation Tired, no shortness of breath, chest pain Exam/Review of Systems Vital Signs Vitals Vital Signs Date Temp Pulse Resp B/P (MAP) Pulse Ox O2 O2 Flow FiO2 Time Delivery Rate 07/07/18 98.5 88 20 157/69 96 Nasal 11:19 (98) Cannula 07/07/18 2.0 08:00 Intake and Output 07/06/18 07/06/18 07/07/18 1515:00 23:00 07:00 IntakeIntake Total 1000 ml 200 ml OutputOutput Total 1100 ml 1150 ml BalanceBalance -100 ml -950 ml Exam Constitutional: alert, oriented (Family bedside) Head: normocephalic Respiratory: other (Coarse breath sounds bilaterally, no wheezing) Cardiovascular: irregular rhythm (S1-S2 heard) Gastrointestinal: soft, non-tender, bowel sounds Extremities: edema Labs Result Diagram: 07/07/18 0552 07/07/18 0552 Results 24hrs Laboratory Tests Test 07/06/18 17:08 07/06/18 20:59 07/07/18 02:36 07/07/18 05:52 Bedside Glucose 205 187 102 White Blood Count 21.3 #H Red Blood Count 3.66 L Hemoglobin 10.3 L Hematocrit 32.6 L Mean Corpuscular 89.1 Volume Mean Corpuscular 28.1 L Hemoglobin Mean Corpuscular 31.6 L Hemoglobin Concent Red Cell 14.9 H Distribution Width Platelet Count 372 Mean Platelet 10.6 H Volume Immature 0.700 H Granulocytes % Neutrophils % 80.6 H Lymphocytes % 8.8 L Monocytes % 8.6 Eosinophils % 1.1 Basophils % 0.2 Nucleated Red Blood 0.1 H Cells % Immature 0.140 H Granulocytes # Neutrophils # 17.1 H Lymphocytes # 1.9 Monocytes # 1.8 H Eosinophils # 0.2 Basophils # 0.1 Nucleated Red Blood 0.0 Cells # Sodium Level 137 Potassium Level 4.7 Chloride Level 101 Carbon Dioxide 32 H Level Anion Gap 4 L Blood Urea Nitrogen 59 H Creatinine 1.73 H Est Glomerular Filtrat Rate mL/min Glucose Level 70 Calcium Level 8.4 Magnesium Level 2.9 H Test 07/07/18 08:23 07/07/18 08:25 07/07/18 09:01 07/07/18 11:57 Lab Scanned Report BLOOD TRANSFUSION Bedside Glucose 61 L 108 105 Medications Medications Current Medications Atorvastatin Calcium (Lipitor) 40 mg QHS PO Last administered on 07/06/18at 21:30; Admin Dose 40 MG; Start 06/25/18 at 21:00 Docusate Sodium (Colace) 100 mg TID PO Last administered on 07/07/18at 08:30; Admin Dose 100 MG; Start 06/25/18 at 13:00 Miscellaneous Information 1 ea NOTE XX ; Start 06/25/18 at 11:30 Glucose (Glutose) 15 gm Q15M PRN PO DECREASED GLUCOSE; Start 06/25/18 at 11:30 Glucose (Glutose) 22.5 gm Q15M PRN PO DECREASED GLUCOSE; Start 06/25/18 at 11:30 Dextrose (D50w Syringe) 25 ml Q15M PRN IV DECREASED GLUCOSE; Start 06/25/18 at 11:30 Dextrose (D50w Syringe) 50 ml Q15M PRN IV DECREASED GLUCOSE; Start 06/25/18 at 11:30 Glucagon (Glucagen) 1 mg Q15M PRN IM DECREASED GLUCOSE; Start 06/25/18 at 11:30 Glucose (Glutose) 15 gm Q15M PRN BUCCAL DECREASED GLUCOSE; Start 06/25/18 at 11:30 Diagnostic Test (Pha) (Accu-Chek) 1 ea 02 XX Last administered on 07/07/18 02:35; Admin Dose 1 EA; Start 06/26/18 at 02:00 Ondansetron HCl (Zofran Inj) 4 mg Q4H PRN IV NAUSEA AND/OR VOMITING Last administered on 07/03/18 19:04; Admin Dose 4 MG; Start 06/28/18 at 01:30 Clonidine (Catapres) 0.1 mg BID PRN PO SBP > 180 Last administered on 06/30/18 23:33; Admin Dose 0.1 MG; Start 06/28/18 at 14:00 Acetaminophen (Tylenol Tab) 650 mg Q4H PRN PO MILD PAIN(1-3)OR ELEVATED TEMP Last administered on 07/06/18 16:14; Admin Dose 650 MG; Start 06/29/18 at 09:30 Gabapentin (Neurontin) 300 mg HS PO Last administered on 07/06/18 21:30; Admin Dose 300 MG; Start 06/29/18 at 21:00 Pantoprazole (Protonix Tab) 40 mg DAILY@06 PO Last administered on 07/07/18 06:08; Admin Dose 40 MG; Start 06/30/18 at 06:00 Miscellaneous Information (Pending Santyl Order For Wound Care) This patient green... PRN PRN XX WOUND CARE; Start 06/30/18 at 08:00 Collagenase (Santyl) 1 applic DAILY TOP Last administered on 07/07/18 08:29; Admin Dose 1 APPLIC; Start 07/02/18 at 09:00 Epoetin Alejo-epbx (Retacrit) 6,000 unit TuThSa@1700 SC Last administered on 07/05/18 17:00; Admin Dose 6,000 UNIT; Start 07/01/18 at 17:00 Lorazepam (Ativan) 0.5 mg Q8H PRN PO ANXIETY; Start 07/01/18 at 16:30 Morphine Sulfate (morphine) 6 mg Q4H PRN PO SEVERE PAIN LEVEL 7-10; Start 07/01/18 at 16:30 Insulin Aspart (Novolog Insulin Pen) NOVOLOG *MODERATE* ALGORITHM WITH MEALS BEDTIME SC Last administered on 07/06/18 21:42; Admin Dose 1 UNIT; Start 07/01/18 at 21:00 Magnesium Hydroxide (Milk Of Mag) 30 ml BID PO Last administered on 07/07/18 08:29; Admin Dose 30 ML; Start 07/02/18 at 09:00 Vancomycin HCl (Vanco Iv Per Pharmacy) VANCOMYCIN PER PHARMACY PER PROTOCOL XX ; Start 07/02/18 at 12:30 Insulin Aspart (Novolog Insulin Pen) 6 unit WITH MEALS SC Last administered on 07/06/18 17:12; Admin Dose 6 UNIT; Start 07/03/18 at 07:55 Amiodarone HCl (Cordarone) 200 mg DAILY PO Last administered on 07/07/18 08:30; Admin Dose 200 MG; Start 07/04/18 at 09:00 Caspofungin 50 mg/ Sodium Chloride 250 ml @ 250 mls/hr Q24H IVPB Last administered on 07/06/18 16:09; Admin Dose 250 MLS/HR; Start 07/06/18 at 16:00 Meropenem/Sodium Chloride 50 ml @ 100 mls/hr Q12 IVPB Last administered on 08:29; Admin Dose 100 MLS/HR; Start 07/06/18 at 09:00 Vancomycin HCl 250 ml @ 125 mls/hr Q48H IVPB Last administered on 07/06/18 11:10; Admin Dose 125 MLS/HR; Start 07/06/18 at 11:00 Acetaminophen/ Hydrocodone Bitart ([place] (5/325)) 1 tab Q4H PRN PO sever pain Last administered on 07/06/18 21:00; Admin Dose 1 TAB; Start 07/06/18 at 18:00 Insulin Glargine (Lantus) 40 units DAILY SC ; Start 07/07/18 at 17:00 Alex Chávez DO Jul 07, 2018 12:21
[2018-07-07] MEDS: HYDROCODONE/APAP (5/325) TAB PO PRN ×2 (13:09→21:04)
--- NOTE | 2018-07-07 14:46 | CONS ---
Assessment/Plan Assessment/Plan Hospital Course (Demo Recall) No acute changes overnight. Patient is sleeping looks comfortable no fevers overnight she had an episode of loose stool earlier today she is eating but with a poor appetite T-max 99.6. WBC 21.3 H&H 10.3 and 32.6 platelets 372 neutrophils 80.6 BUN 59 creatinine 1.73 Microbiology: Urine culture growing Carmella species, not albicans Diagnostics: Ultrasound of left lower extremity revealed 5 cm depressed containing collection in the superficial soft tissue of the left inguinal region finding could reflect hematoma possible abscess. Please see full report in the chart. CT abdomen and pelvis from yesterday revealed distended urinary bladder with mild bilateral hydronephrosis without evidence of obstructing renal stone. Stable postsurgical changes of partial left nephrectomy. 4.4 x 2.5 cm lobulated region of soft tissue density with small foci of air surrounding stranding in the left groin adjacent to the left femoral artery. Please see full report in the chart Antimicrobials: Cancidas Merrem Vancomycin Physical examination: This is obese well-developed Kh[place] woman who is in no distress. Head atraumatic normocephalic sclera nonicteric. Neck is supple. Chest rise symmetrical breath sounds clear, diminished bases. Heart: S1-S2. Abdomen soft, bowel sounds present. Extremities without cyanosis. Left lower extremity dressing intact Assessment: 1. Systemic inflammatory response syndrome with leukocytosis==> multifactorial 2. Left groin hematoma versus abscess 3. Urinary tract infection 4. Urinary retention, s/p Odonnell 5. Occlusive left common femoral artery status post thrombectomy 6. Coronary artery disease, history of CABG 7. Paroxysmal atrial fibrillation 8. Diabetes 9. Abnormal 2D echo, rule out vegetations versus thrombus versus tumor on the right atrium 10. History of renal cell carcinoma status post partial nephrectomy Plan: Patient is clinically stable, continue abx, stool for C dif if another episode of diarrhea. LUCIO RN Consultation Date/Type/Reason Admit Date/Time Jun 25, 2018 at 06:24 Initial Consult Date 06/26/18 Type of Consult id Requesting Provider: NUBIA TEJEDA MD Date/Time of Note DATE: 07/07/18 TIME: 14:44 Exam/Review of Systems Exam Vitals Vital Signs Date Temp Pulse Resp B/P (MAP) Pulse Ox O2 O2 Flow FiO2 Time Delivery Rate 07/07/18 75 13:23 07/07/18 98.5 20 157/69 96 Nasal 11:19 (98) Cannula 07/07/18 2.0 08:00 Intake and Output 07/06/18 07/06/18 07/07/18 1515:00 23:00 07:00 IntakeIntake Total 1000 ml 200 ml OutputOutput Total 1100 ml 1150 ml BalanceBalance -100 ml -950 ml Results Result Diagram: 07/07/18 0552 07/07/18 0552 Results 24hrs Laboratory Tests Test 07/06/18 17:08 07/06/18 20:59 07/07/18 02:36 07/07/18 05:52 Bedside Glucose 205 187 102 White Blood Count 21.3 #H Red Blood Count 3.66 L Hemoglobin 10.3 L Hematocrit 32.6 L Mean Corpuscular 89.1 Volume Mean Corpuscular 28.1 L Hemoglobin Mean Corpuscular 31.6 L Hemoglobin Concent Red Cell 14.9 H Distribution Width Platelet Count 372 Mean Platelet 10.6 H Volume Immature 0.700 H Granulocytes % Neutrophils % 80.6 H Lymphocytes % 8.8 L Monocytes % 8.6 Eosinophils % 1.1 Basophils % 0.2 Nucleated Red Blood 0.1 H Cells % Immature 0.140 H Granulocytes # Neutrophils # 17.1 H Lymphocytes # 1.9 Monocytes # 1.8 H Eosinophils # 0.2 Basophils # 0.1 Nucleated Red Blood 0.0 Cells # Sodium Level 137 Potassium Level 4.7 Chloride Level 101 Carbon Dioxide 32 H Level Anion Gap 4 L Blood Urea Nitrogen 59 H Creatinine 1.73 H Est Glomerular Filtrat Rate mL/min Glucose Level 70 Calcium Level 8.4 Magnesium Level 2.9 H Test 07/07/18 08:23 07/07/18 08:25 07/07/18 09:01 07/07/18 11:57 Lab Scanned Report BLOOD TRANSFUSION Bedside Glucose 61 L 108 105 Medications Medication Current Medications Atorvastatin Calcium (Lipitor) 40 mg QHS PO Last administered on 07/06/18at 21:30; Admin Dose 40 MG; Start 06/25/18 at 21:00 Docusate Sodium (Colace) 100 mg TID PO Last administered on 07/07/18at 08:30; Admin Dose 100 MG; Start 06/25/18 at 13:00 Miscellaneous Information 1 ea NOTE XX ; Start 06/25/18 at 11:30 Glucose (Glutose) 15 gm Q15M PRN PO DECREASED GLUCOSE; Start 06/25/18 at 11:30 Glucose (Glutose) 22.5 gm Q15M PRN PO DECREASED GLUCOSE; Start 06/25/18 at 1 1:30 Dextrose (D50w Syringe) 25 ml Q15M PRN IV DECREASED GLUCOSE; Start 06/25/18 at 11:30 Dextrose (D50w Syringe) 50 ml Q15M PRN IV DECREASED GLUCOSE; Start 06/25/18 at 11:30 Glucagon (Glucagen) 1 mg Q15M PRN IM DECREASED GLUCOSE; Start 06/25/18 at 11:30 Glucose (Glutose) 15 gm Q15M PRN BUCCAL DECREASED GLUCOSE; Start 06/25/18 at 11:30 Diagnostic Test (Pha) (Accu-Chek) 1 ea 02 XX Last administered on 07/07/18 02:35; Admin Dose 1 EA; Start 06/26/18 at 02:00 Ondansetron HCl (Zofran Inj) 4 mg Q4H PRN IV NAUSEA AND/OR VOMITING Last administered on 07/03/18 19:04; Admin Dose 4 MG; Start 06/28/18 at 01:30 Clonidine (Catapres) 0.1 mg BID PRN PO SBP > 180 Last administered on 06/30/18 23:33; Admin Dose 0.1 MG; Start 06/28/18 at 14:00 Acetaminophen (Tylenol Tab) 650 mg Q4H PRN PO MILD PAIN(1-3)OR ELEVATED TEMP Last administered on 07/06/18 16:14; Admin Dose 650 MG; Start 06/29/18 at 09:30 Gabapentin (Neurontin) 300 mg HS PO Last administered on 07/06/18 21:30; Admin Dose 300 MG; Start 06/29/18 at 21:00 Pantoprazole (Protonix Tab) 40 mg DAILY@06 PO Last administered on 07/07/18 06:08; Admin Dose 40 MG; Start 06/30/18 at 06:00 Miscellaneous Information (Pending Santyl Order For Wound Care) This patient green... PRN PRN XX WOUND CARE; Start 06/30/18 at 08:00 Collagenase (Santyl) 1 applic DAILY TOP Last administered on 4/8/19at 08:29; Admin Dose 1 APPLIC; Start 07/02/18 at 09:00 Epoetin Alejo-epbx (Retacrit) 6,000 unit TuThSa@1700 SC Last administered on 07/05/18 17:00; Admin Dose 6,000 UNIT; Start 07/01/18 at 17:00 Lorazepam (Ativan) 0.5 mg Q8H PRN PO ANXIETY; Start 07/01/18 at 16:30 Morphine Sulfate (morphine) 6 mg Q4H PRN PO SEVERE PAIN LEVEL 7-10; Start 07/01/18 at 16:30 Insulin Aspart (Novolog Insulin Pen) NOVOLOG *MODERATE* ALGORITHM WITH MEALS BEDTIME SC Last administered on 07/06/18 21:42; Admin Dose 1 UNIT; Start 07/01/18 at 21:00 Magnesium Hydroxide (Milk Of Mag) 30 ml BID PO Last administered on 07/07/18 08:29; Admin Dose 30 ML; Start 07/02/18 at 09:00 Vancomycin HCl (Vanco Iv Per Pharmacy) VANCOMYCIN PER PHARMACY PER PROTOCOL XX ; Start 07/02/18 at 12:30 Insulin Aspart (Novolog Insulin Pen) 6 unit WITH MEALS SC Last administered on 07/06/18 17:12; Admin Dose 6 UNIT; Start 07/03/18 at 07:55 Amiodarone HCl (Cordarone) 200 mg DAILY PO Last administered on 07/07/18 08:30; Admin Dose 200 MG; Start 07/04/18 at 09:00 Caspofungin 50 mg/ Sodium Chloride 250 ml @ 250 mls/hr Q24H IVPB Last administered on 07/06/18 16:09; Admin Dose 250 MLS/HR; Start 07/06/18 at 16:00 Meropenem/Sodium Chloride 50 ml @ 100 mls/hr Q12 IVPB Last administered on 07/07/18 08:29; Admin Dose 100 MLS/HR; Start 07/06/18 at 09:00 Vancomycin HCl 250 ml @ 125 mls/hr Q48H IVPB Last administered on 07/06/18 11:10; Admin Dose 125 MLS/HR; Start 07/06/18 at 11:00 Acetaminophen/ Hydrocodone Bitart ([place] (5/325)) 1 tab Q4H PRN PO sever pain Last administered on 4/8/19at 13:09; Admin Dose 1 TAB; Start 07/06/18 at 18:00 Insulin Glargine (Lantus) 40 units DAILY SC ; Start 07/07/18 at 17:00 BARBARA ORDAZ NP Jul 07, 2018 14:46
[2018-07-07] MEDS: CASPOFUNGIN 50 MG in SOD CHLORIDE 0.9% 250 ML IVPB SCH (16:10)
[2018-07-07] MEDS: ATORVASTATIN 40 MG TAB PO SCH (20:38)
[2018-07-07] MEDS: GABAPENTIN 300 MG CAP PO SCH (20:38)
[2018-07-07] MEDS: ACETAMINOPHEN 325 MG TAB PO PRN (23:48)
--- NOTE | 2018-07-07 23:48 | CONS ---
Assessment/Plan Assessment/Plan Hospital Course (Demo Recall) History of renal carcinoma status post nephrectomy focally prominent 2.7 cm soft tissue lobulation in the inferior left renal lower pole adjacent to surgical clips, possibly reflecting postsurgical change or recurrent neoplasm. Enhancing lobulated mass in the lower pole left kidney with no extension into the left renal vein. PET/CT OUTPT CT AP- REVIEWED can not give contrast PT REFUSED MRI LDH- NOTED F-UP OUTPT ANEMIA- WORSE MONITOR CLOSELY OBSERVE FOR BLEEDING TRANSFUSE PRBC echocardiogram- echogenic structure in the right atrium, as well as attached to the tricuspid valve as well as the IVC. Differential includes vegetation, malignancy or thrombus. The IVC is focally distended at the inferior cavoatrial junction, containing an 8 mm metallic focus which may lie within intravenous tumor mass. Evaluation is quite limited in the absence of intravenous contrast. 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 Coarse calcifications in the left breast parenchyma, most likely benign. diagnostic mammography as outpt Acute congestive heart failure exacerbation. Acute sepsis, possible urinary tract infection. Elevated lactate levels. Type 2 diabetes mellitus, uncontrolled. Hyperglycemia. Diabetic neuropathy. Gastroesophageal reflux disease. Possible transient ischemic attacks. Hypertension, uncontrolled Renal failure with creatinine of 3.95 INTERMITTENT atrial fibrillation Consultation Date/Type/Reason Admit Date/Time Jun 25, 2018 at 06:24 Initial Consult Date 06/26/18 Type of Consult [facility] Requesting Provider: NUBIA TEJEDA MD Date/Time of Note DATE: 07/07/18 TIME: 23:47 Exam/Review of Systems Exam Vitals Vital Signs Date Temp Pulse Resp B/P (MAP) Pulse Ox O2 O2 Flow FiO2 Time Delivery Rate 07/07/18 89 20:00 07/07/18 98.0 19 136/63 99 Nasal 20:00 (87) Cannula 07/07/18 2.0 17:46 Intake and Output 07/06/18 07/06/18 07/07/18 1515:00 23:00 07:00 IntakeIntake Total 1000 ml 200 ml OutputOutput Total 1100 ml 1150 ml BalanceBalance -100 ml -950 ml Results Result Diagram: 07/07/18 0552 07/07/18 0552 Results 24hrs Laboratory Tests Test 07/07/18 02:36 07/07/18 05:52 07/07/18 08:23 07/07/18 08:25 Bedside Glucose 102 61 L White Blood Count 21.3 #H Red Blood Count 3.66 L Hemoglobin 10.3 L Hematocrit 32.6 L Mean Corpuscular 89.1 Volume Mean Corpuscular 28.1 L Hemoglobin Mean Corpuscular 31.6 L Hemoglobin Concent Red Cell 14.9 H Distribution Width Platelet Count 372 Mean Platelet 10.6 H Volume Immature 0.700 H Granulocytes % Neutrophils % 80.6 H Lymphocytes % 8.8 L Monocytes % 8.6 Eosinophils % 1.1 Basophils % 0.2 Nucleated Red Blood 0.1 H Cells % Immature 0.140 H Granulocytes # Neutrophils # 17.1 H Lymphocytes # 1.9 Monocytes # 1.8 H Eosinophils # 0.2 Basophils # 0.1 Nucleated Red Blood 0.0 Cells # Sodium Level 137 Potassium Level 4.7 Chloride Level 101 Carbon Dioxide 32 H Level Anion Gap 4 L Blood Urea Nitrogen 59 H Creatinine 1.73 H Est Glomerular Filtrat Rate mL/min Glucose Level 70 Calcium Level 8.4 Magnesium Level 2.9 H Lab Scanned Report BLOOD TRANSFUSION Test 07/07/18 09:01 07/07/18 11:57 07/07/18 17:08 07/07/18 20:37 Bedside Glucose 108 105 125 151 Medications Medication Current Medications Atorvastatin Calcium (Lipitor) 40 mg QHS PO Last administered on 07/07/18at 20:38; Admin Dose 40 MG; Start 06/25/18 at 21:00 Docusate Sodium (Colace) 100 mg TID PO Last administered on 07/07/18at 20:38; Admin Dose 100 MG; Start 06/25/18 at 13:00 Miscellaneous Information 1 ea NOTE XX ; Start 06/25/18 at 11:30 Glucose (Glutose) 15 gm Q15M PRN PO DECREASED GLUCOSE; Start 06/25/18 at 11:30 Glucose (Glutose) 22.5 gm Q15M PRN PO DECREASED GLUCOSE; Start 06/25/18 at 11:30 Dextrose (D50w Syringe) 25 ml Q15M PRN IV DECREASED GLUCOSE; Start 06/25/18 at 11:30 Dextrose (D50w Syringe) 50 ml Q15M PRN IV DECREASED GLUCOSE; Start 06/25/18 at 11:30 Glucagon (Glucagen) 1 mg Q15M PRN IM DECREASED GLUCOSE; Start 06/25/18 at 11:30 Glucose (Glutose) 15 gm Q15M PRN BUCCAL DECREASED GLUCOSE; Start 06/25/18 at 11:30 Diagnostic Test (Pha) (Accu-Chek) 1 ea 02 XX Last administered on 07/07/18 02:35; Admin Dose 1 EA; Start 06/26/18 at 02:00 Ondansetron HCl (Zofran Inj) 4 mg Q4H PRN IV NAUSEA AND/OR VOMITING Last administered on 07/03/18 19:04; Admin Dose 4 MG; Start 06/28/18 at 01:30 Clonidine (Catapres) 0.1 mg BID PRN PO SBP > 180 Last administered on 06/30/18 23:33; Admin Dose 0.1 MG; Start 06/28/18 at 14:00 Acetaminophen (Tylenol Tab) 650 mg Q4H PRN PO MILD PAIN(1-3)OR ELEVATED TEMP Last administered on 07/06/18 16:14; Admin Dose 650 MG; Start 06/29/18 at 09:30 Gabapentin (Neurontin) 300 mg HS PO Last administered on 07/07/18 20:38; Admin Dose 300 MG; Start 06/29/18 at 21:00 Pantoprazole (Protonix Tab) 40 mg DAILY@06 PO Last administered on 07/07/18 06:08; Admin Dose 40 MG; Start 06/30/18 at 06:00 Miscellaneous Information (Pending Santyl Order For Wound Care) This patient green... PRN PRN XX WOUND CARE; Start 06/30/18 at 08:00 Collagenase (Santyl) 1 applic DAILY TOP Last administered on 07/07/18 08:29; Admin Dose 1 APPLIC; Start 07/02/18 at 09:00 Epoetin Alejo-epbx (Retacrit) 6,000 unit TuThSa@1700 SC Last administered on 07/05/18 17:00; Admin Dose 6,000 UNIT; Start 07/01/18 at 17:00 Lorazepam (Ativan) 0.5 mg Q8H PRN PO ANXIETY; Start 07/01/18 at 16:30 Morphine Sulfate (morphine) 6 mg Q4H PRN PO SEVERE PAIN LEVEL 7-10; Start 07/01/18 at 16:30 Insulin Aspart (Novolog Insulin Pen) NOVOLOG *MODERATE* ALGORITHM WITH MEALS BEDTIME SC Last administered on 07/06/18 21:42; Admin Dose 1 UNIT; Start 07/01/18 at 21:00 Magnesium Hydroxide (Milk Of Mag) 30 ml BID PO Last administered on 07/07/18 20:38; Admin Dose 30 ML; Start 07/02/18 at 09:00 Vancomycin HCl (Vanco Iv Per Pharmacy) VANCOMYCIN PER PHARMACY PER PROTOCOL XX ; Start 07/02/18 at 12:30 Insulin Aspart (Novolog Insulin Pen) 6 unit WITH MEALS SC Last administered on 07/06/18 17:12; Admin Dose 6 UNIT; Start 07/03/18 at 07:55 Amiodarone HCl (Cordarone) 200 mg DAILY PO Last administered on 07/07/18 08:30; Admin Dose 200 MG; Start 07/04/18 at 09:00 Caspofungin 50 mg/ Sodium Chloride 250 ml @ 250 mls/hr Q24H IVPB Last administered on 07/07/18 16:10; Admin Dose 250 MLS/HR; Start 07/06/18 at 16:00 Meropenem/Sodium Chloride 50 ml @ 100 mls/hr Q12 IVPB Last administered on 07/07/18 21:57; Admin Dose 100 MLS/HR; Start 07/06/18 at 09:00 Vancomycin HCl 250 ml @ 125 mls/hr Q48H IVPB Last administered on 07/06/18 11:10; Admin Dose 125 MLS/HR; Start 07/06/18 at 11:00 Acetaminophen/ Hydrocodone Bitart ([place] (5/325)) 1 tab Q4H PRN PO sever pain Last administered on 07/07/18 21:04; Admin Dose 1 TAB; Start 07/06/18 at 18:00 Insulin Glargine (Lantus) 40 units DAILY SC ; Start 07/07/18 at 17:00 JOSÉ FRANZ MD Jul 07, 2018 23:48
[2018-07-08] VITALS (11 sets, daily range): BP systolic 99–160; BP diastolic 56–87; PULSE 55–99; RESP 20–22
[2018-07-08] MEDS: HYDROCODONE/APAP (5/325) TAB PO PRN ×3 (01:51→21:42)
[2018-07-08] MEDS: ACCU-CHEK XX SCH (01:55)
[2018-07-08] MEDS: PANTOPRAZOLE (EC) 40 MG TAB PO SCH (06:20)
[2018-07-08] MEDS: INSULIN ASPART [NOVOLOG] 3 ML PEN SC SCH ×7 (07:55→21:55)
[2018-07-08] MEDS: BALSAM PERU/CASTOR OIL 60 GM TUBE TOP SCH ×2 (08:26→21:49)
[2018-07-08] MEDS: MAGNESIUM HYDROXIDE 30ML CUP PO SCH ×2 (08:26→21:42)
[2018-07-08] MEDS: COLLAGENASE 5 GM (UD JAR) TOP SCH (08:26)
[2018-07-08] MEDS: INSULIN GLARGINE [LANTus] (100 UNITS/ML) SYG SC SCH (08:26)
[2018-07-08] MEDS: DOCUSATE SODIUM 100 MG CAP PO SCH ×3 (08:27→21:42)
[2018-07-08] MEDS: MEROPENEM 500MG/50 ML (PMX) 50 ML IVPB SCH ×2 (08:27→21:42)
[2018-07-08] MEDS: AMIODARONE 200 MG TAB PO SCH (08:27)
--- NOTE | 2018-07-08 09:42 | PN ---
DATE: 07/08/2018 SUBJECTIVE: An 82-year-old female who was admitted for acute pain of the lower extremity and thrombu s of the left femoral artery. The patient has history of atrial fibrillation, congestive heart failu re, renal cancer, urinary retention, acute on chronic renal failure, anemia, degenerative joint disea se, type 2 diabetes mellitus with multiple complications. The patient was admitted, had a thrombecto my done by Dr. Dawson started anticoagulation and tolerated the procedure well, but post anticoagu lation, the patient started bleeding and dropped her hemoglobin and hematocrit also had a hematomas o cathy the inguinal areas and recurrence of thrombus. I am unable to take the patient back to surgery d ue to increased BUN and creatinine again in excess and hydronephrosis. The patient is now at this ti me on oral anticoagulation and hydration. OBJECTIVE: VITAL SIGNS: Blood pressure is 130/59, heart rate is 55, respiratory rate 18. She is afebrile. HEENT: Atraumatic, normocephalic. Pupils are equal and reactive to light. Extraocular muscles are intact. She denies of any pains. At this time, she is just feeling weak and lethargic and tired mos t of the time. She is also dizzy on and off. She denies chest pain, denies abdominal pain, denies h esitancy or urgency. PHYSICAL EXAMINATION: CHEST: AP contour within normal limits. Breasts and nipples are normal, no nipple retraction. HEART: S1, S2, atrial fibrillation, controlled rate. LUNGS: Very mild crackles over the bases of the lungs. ABDOMEN: Soft, positive bowel sounds, no hepatosplenomegaly, no masses palpable over the abdomen and no rebound tenderness. EXTREMITIES: No edema, clubbing or cyanosis of the extremities. Pulses are palpable over the extrem ities, decreased, but palpable and warm over the lower extremities. ADMITTING DIAGNOSES: As I mentioned atrial fibrillation, thrombus coagulopathy, renal carcinoma, acu te renal failure, hydronephrosis, type 2 diabetes mellitus, acute on chronic renal failure and hyperg lycemia. The patient today is much better. PLAN: We will continue working with physical therapy, continue treatment and hopefully by tomorrow t he patient will be discharged if white count is back to normal. Dictated By: NUBIA TEJEDA MD SB/NTS Conf#: [id number] [facility]#: [id number] CC: ERIK CHILDERS MD; ERNESTO MCGARRY MD; NUBIA TEJEDA MD;*End*
[2018-07-08] MEDS: VANCOMYCIN 1 GM 250 ML IVPB SCH (11:19)
[2018-07-08] MEDS: CASPOFUNGIN 50 MG in SOD CHLORIDE 0.9% 250 ML IVPB SCH (15:56)
--- NOTE | 2018-07-08 16:50 | CONS ---
Assessment/Plan Assessment/Plan Hospital Course (Demo Recall) No acute events. Looks comfortable, no fevers Microbiology: Urine culture growing Carmella species, not albicans Diagnostics: Ultrasound of left lower extremity revealed 5 cm depressed contain ing collection in the superficial soft tissue of the left inguinal region finding could reflect hematoma possible abscess. Please see full report in the chart. CT abdomen and pelvis from yesterday revealed distended urinary bladder with mild bilateral hydronephrosis without evidence of obstructing renal stone. Stable postsurgical changes of partial left nephrectomy. 4.4 x 2.5 cm lobulated region of soft tissue density with small foci of air surrounding stranding in the left groin adjacent to the left femoral artery. Please see full report in the chart Antimicrobials: Cancidas Merrem Vancomycin Physical examination: This is obese well-developed [place] woman who is in no distress. Head atraumatic normocephalic sclera nonicteric. Neck is supple. Chest rise symmetrical breath sounds clear, diminished bases. Heart: S1-S2. Abdomen soft, bowel sounds present. Extremities without cyanosis. Left lower extremity dressing intact Assessment: 1. Systemic inflammatory response syndrome with leukocytosis==> multifactorial 2. Left groin hematoma versus abscess 3. Urinary tract infection 4. Urinary retention, s/p Odonnell 5. Occlusive left common femoral artery status post thrombectomy 6. Coronary artery disease, history of CABG 7. Paroxysmal atrial fibrillation 8. Diabetes 9. Abnormal 2D echo, rule out vegetations versus thrombus versus tumor on the right atrium 10. History of renal cell carcinoma status post partial nephrectomy Plan: Remains stable, continue abx DW RN Consultation Date/Type/Reason Admit Date/Time Jun 25, 2018 at 06:24 Initial Consult Date 06/26/18 Type of Consult id Requesting Provider: NUBIA TEJEDA MD Date/Time of Note DATE: 07/08/18 TIME: 16:49 Exam/Review of Systems Exam Vitals Vital Signs Date Temp Pulse Resp B/P (MAP) Pulse Ox O2 O2 Flow FiO2 Time Delivery Rate 07/08/18 148/70 15:59 (96) 07/08/18 98.7 99 20 98 15:31 07/08/18 Nasal 2.0 07:55 Cannula Intake and Output 07/07/18 07/07/18 07/08/18 1515:00 23:00 07:00 IntakeIntake Total 50 ml 1260 ml 150 ml OutputOutput Total 800 ml 800 ml BalanceBalance 50 ml 460 ml -650 ml Results Result Diagram: 07/08/18 0624 07/08/18 0624 Results 24hrs Laboratory Tests Test 07/07/18 17:08 07/07/18 20:37 07/08/18 06:24 07/08/18 08:25 Bedside Glucose 125 151 102 White Blood Count 16.8 #H Red Blood Count 3.50 L Hemoglobin 9.7 L Hematocrit 32.0 L Mean Corpuscular Volume 91.4 Mean Corpuscular 27.7 L Hemoglobin Mean Corpuscular 30.3 L Hemoglobin Concent Red Cell Distribution 14.9 H Width Platelet Count 332 Mean Platelet Volume 10.7 H Immature Granulocytes % 1.400 H Neutrophils % 79.2 H Lymphocytes % 8.0 L Monocytes % 9.4 Eosinophils % 1.7 Basophils % 0.3 Nucleated Red Blood 0.0 Cells % Immature Granulocytes # 0.240 H Neutrophils # 13.3 H Lymphocytes # 1.3 Monocytes # 1.6 H Eosinophils # 0.3 Basophils # 0.1 Nucleated Red Blood 0.0 Cells # Sodium Level 137 Potassium Level 4.8 Chloride Level 100 Carbon Dioxide Level 32 H Anion Gap 5 Blood Urea Nitrogen 52 H Creatinine 1.54 H Est Glomerular Filtrat Rate mL/min Glucose Level 106 Calcium Level 8.3 L B-Type Natriuretic 21256 H Peptide Test 07/08/18 11:22 Bedside Glucose 172 Medications Medication Current Medications Atorvastatin Calcium (Lipitor) 40 mg QHS PO Last administered on 07/07/18at 20:38; Admin Dose 40 MG; Start 06/25/18 at 21:00 Docusate Sodium (Colace) 100 mg TID PO Last administered on 07/07/18at 20:38; Admin Dose 100 MG; Start 06/25/18 at 13:00 Miscellaneous Information 1 ea NOTE XX ; Start 06/25/18 at 11:30 Glucose (Glutose) 15 gm Q15M PRN PO DECREASED GLUCOSE; Start 06/25/18 at 11:30 Glucose (Glutose) 22.5 gm Q15M PRN PO DECREASED GLUCOSE; Start 06/25/18 at 11:30 Dextrose (D50w Syringe) 25 ml Q15M PRN IV DECREASED GLUCOSE; Start 06/25/18 at 11:30 Dextrose (D50w Syringe) 50 ml Q15M PRN IV DECREASED GLUCOSE; Start 06/25/18 at 11:30 Glucagon (Glucagen) 1 mg Q15M PRN IM DECREASED GLUCOSE; Start 06/25/18 at 11:30 Glucose (Glutose) 15 gm Q15M PRN BUCCAL DECREASED GLUCOSE; Start 06/25/18 at 11:30 Diagnostic Test (Pha) (Accu-Chek) 1 ea 02 XX Last administered on 07/07/18 02:35; Admin Dose 1 EA; Start 06/26/18 at 02:00 Ondansetron HCl (Zofran Inj) 4 mg Q4H PRN IV NAUSEA AND/OR VOMITING Last administered on 07/03/18 19:04; Admin Dose 4 MG; Start 06/28/18 at 01:30 Clonidine (Catapres) 0.1 mg BID PRN PO SBP > 180 Last administered on 06/30/18 23:33; Admin Dose 0.1 MG; Start 06/28/18 at 14:00 Acetaminophen (Tylenol Tab) 650 mg Q4H PRN PO MILD PAIN(1-3)OR ELEVATED TEMP Last administered on 07/07/18 23:48; Admin Dose 650 MG; Start 06/29/18 at 09:30 Gabapentin (Neurontin) 300 mg HS PO Last administered on 07/07/18 20:38; Admin Dose 300 MG; Start 06/29/18 at 21:00 Pantoprazole (Protonix Tab) 40 mg DAILY@06 PO Last administered on 07/08/18 06:20; Admin Dose 40 MG; Start 06/30/18 at 06:00 Miscellaneous Information (Pending Santyl Order For Wound Care) This patient green... PRN PRN XX WOUND CARE; Start 06/30/18 at 08:00 Collagenase (Santyl) 1 applic DAILY TOP Last administered on 07/08/18 08:26; Admin Dose 1 APPLIC; Start 07/02/18 at 09:00 Epoetin Alejo-epbx (Retacrit) 6,000 unit TuThSa@1700 SC Last administered on 07/05/18 17:00; Admin Dose 6,000 UNIT; Start 07/01/18 at 17:00 Lorazepam (Ativan) 0.5 mg Q8H PRN PO ANXIETY; Start 07/01/18 at 16:30 Morphine Sulfate (morphine) 6 mg Q4H PRN PO SEVERE PAIN LEVEL 7-10; Start 07/01/18 at 16:30 Insulin Aspart (Novolog Insulin Pen) NOVOLOG *MODERATE* ALGORITHM WITH MEALS BEDTIME SC Last administered on 07/08/18 11:26; Admin Dose 2 UNIT; Start 07/01/18 at 21:00 Magnesium Hydroxide (Milk Of Mag) 30 ml BID PO Last administered on 07/07/18 20:38; Admin Dose 30 ML; Start 07/02/18 at 09:00 Vancomycin HCl (Vanco Iv Per Pharmacy) VANCOMYCIN PER PHARMACY PER PROTOCOL XX ; Start 07/02/18 at 12:30 Insulin Aspart (Novolog Insulin Pen) 6 unit WITH MEALS SC Last administered on 07/06/18 17:12; Admin Dose 6 UNIT; Start 07/03/18 at 07:55 Amiodarone HCl (Cordarone) 200 mg DAILY PO Last administered on 07/08/18 08:27; Admin Dose 200 MG; Start 07/04/18 at 09:00 Caspofungin 50 mg/ Sodium Chloride 250 ml @ 250 mls/hr Q24H IVPB Last administered on 07/08/18 15:56; Admin Dose 250 MLS/HR; Start 07/06/18 at 16:00 Meropenem/Sodium Chloride 50 ml @ 100 mls/hr Q12 IVPB Last administered on 07/08/18 08:27; Admin Dose 100 MLS/HR; Start 07/06/18 at 09:00 Vancomycin HCl 250 ml @ 125 mls/hr Q48H IVPB Last administered on 07/08/18 11:19; Admin Dose 125 MLS/HR; Start 07/06/18 at 11:00 Acetaminophen/ Hydrocodone Bitart ([place] (5/325)) 1 tab Q4H PRN PO sever pain L ast administered on 07/08/18 08:26; Admin Dose 1 TAB; Start 07/06/18 at 18:00 Insulin Glargine (Lantus) 40 units DAILY SC ; Start 07/07/18 at 17:00 BARBARA ORDAZ NP Jul 08, 2018 16:50
[2018-07-08] MEDS: EPOETIN ALFA-EPBX (NON-ESRD) 3,000 UNIT/ML VIAL SC SCH (17:21)
--- NOTE | 2018-07-08 17:46 | CONS ---
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 -Anticoagulant was on hold secondary to acute blood loss anemia requiring blood transfusion. Aspirin also has been stopped. Hemoglobin has remained stable, given high risk of recurrent thromboembolic events, would restart Eliquis and watch hemoglobin closely -Diuretics as needed -Continue to hold any nephrotoxic medications, patient being followed by nephrology. Consultation Date/Type/Reason Admit Date/Time Jun 25, 2018 at 06:24 Initial Consult Date 06/25/18 Type of Consult Cardiology Requesting Provider: NUBIA TEJEDA MD Date/Time of Note DATE: 07/08/18 TIME: 17:44 24 HR Interval Summary Free Text/Dictation Patient seen and examined, sleepy but arousable Exam/Review of Systems Vital Signs Vitals Vital Signs Date Temp Pulse Resp B/P (MAP) Pulse Ox O2 O2 Flow FiO2 Time Delivery Rate 07/08/18 82 16:00 07/08/18 148/70 15:59 (96) 07/08/18 98.7 20 98 15:31 07/08/18 Nasal 2.0 07:55 Cannula Intake and Output 07/07/18 07/07/18 07/08/18 1515:00 23:00 07:00 IntakeIntake Total 50 ml 1260 ml 150 ml OutputOutput Total 800 ml 800 ml BalanceBalance 50 ml 460 ml -650 ml Exam Exam Sleeping but arousable, no apparent distress Head: normocephalic Respiratory: other (Coarse breath sounds bilaterally, no wheezing) Cardiovascular: irregular rhythm (S1-S2 heard) Gastrointestinal: soft, non-tender, bowel sounds Extremities: edema Labs Result Diagram: 07/08/1862307/08/18623 Results 24hrs Laboratory Tests Test 07/07/18 20:37 07/08/18 06:24 07/08/18 08:25 07/08/18 11:22 Bedside Glucose 151 102 172 White Blood Count 16.8 #H Red Blood Count 3.50 L Hemoglobin 9.7 L Hematocrit 32.0 L Mean Corpuscular Volume 91.4 Mean Corpuscular 27.7 L Hemoglobin Mean Corpuscular 30.3 L Hemoglobin Concent Red Cell Distribution 14.9 H Width Platelet Count 332 Mean Platelet Volume 10.7 H Immature Granulocytes % 1.400 H Neutrophils % 79.2 H Lymphocytes % 8.0 L Monocytes % 9.4 Eosinophils % 1.7 Basophils % 0.3 Nucleated Red Blood 0.0 Cells % Immature Granulocytes # 0.240 H Neutrophils # 13.3 H Lymphocytes # 1.3 Monocytes # 1.6 H Eosinophils # 0.3 Basophils # 0.1 Nucleated Red Blood 0.0 Cells # Sodium Level 137 Potassium Level 4.8 Chloride Level 100 Carbon Dioxide Level 32 H Anion Gap 5 Blood Urea Nitrogen 52 H Creatinine 1.54 H Est Glomerular Filtrat Rate mL/min Glucose Level 106 Calcium Level 8.3 L B-Type Natriuretic 31317 H Peptide Test 07/08/18 17:18 Bedside Glucose 204 Medications Medications Current Medications Atorvastatin Calcium (Lipitor) 40 mg QHS PO Last administered on 07/07/18at 20:38; Admin Dose 40 MG; Start 06/25/18 at 21:00 Docusate Sodium (Colace) 100 mg TID PO Last administered on 07/07/18at 20:38; Admin Dose 100 MG; Start 06/25/18 at 13:00 Miscellaneous Information 1 ea NOTE XX ; Start 06/25/18 at 11:30 Glucose (Glutose) 15 gm Q15M PRN PO DECREASED GLUCOSE; Start 06/25/18 at 11:30 Glucose (Glutose) 22.5 gm Q15M PRN PO DECREASED GLUCOSE; Start 06/25/18 at 1 1:30 Dextrose (D50w Syringe) 25 ml Q15M PRN IV DECREASED GLUCOSE; Start 06/25/18 at 11:30 Dextrose (D50w Syringe) 50 ml Q15M PRN IV DECREASED GLUCOSE; Start 06/25/18 at 11:30 Glucagon (Glucagen) 1 mg Q15M PRN IM DECREASED GLUCOSE; Start 06/25/18 at 11:30 Glucose (Glutose) 15 gm Q15M PRN BUCCAL DECREASED GLUCOSE; Start 06/25/18 at 11:30 Diagnostic Test (Pha) (Accu-Chek) 1 ea 02 XX Last administered on 4/8/19at 02:35; Admin Dose 1 EA; Start 06/26/18 at 02:00 Ondansetron HCl (Zofran Inj) 4 mg Q4H PRN IV NAUSEA AND/OR VOMITING Last administered on 07/03/18 19:04; Admin Dose 4 MG; Start 06/28/18 at 01:30 Clonidine (Catapres) 0.1 mg BID PRN PO SBP > 180 Last administered on 06/30/18 23:33; Admin Dose 0.1 MG; Start 06/28/18 at 14:00 Acetaminophen (Tylenol Tab) 650 mg Q4H PRN PO MILD PAIN(1-3)OR ELEVATED TEMP Last administered on 07/07/18 23:48; Admin Dose 650 MG; Start 06/29/18 at 09:30 Gabapentin (Neurontin) 300 mg HS PO Last administered on 07/07/18 20:38; Admin Dose 300 MG; Start 06/29/18 at 21:00 Pantoprazole (Protonix Tab) 40 mg DAILY@06 PO Last administered on 07/08/18 06:20; Admin Dose 40 MG; Start 06/30/18 at 06:00 Miscellaneous Information (Pending Santyl Order For Wound Care) This patient green... PRN PRN XX WOUND CARE; Start 06/30/18 at 08:00 Collagenase (Santyl) 1 applic DAILY TOP Last administered on 07/08/18 08:26; Admin Dose 1 APPLIC; Start 07/02/18 at 09:00 Epoetin Alejo-epbx (Retacrit) 6,000 unit TuThSa@1700 SC Last administered on 07/08/18 17:21; Admin Dose 6,000 UNIT; Start 07/01/18 at 17:00 Lorazepam (Ativan) 0.5 mg Q8H PRN PO ANXIETY; Start 07/01/18 at 16:30 Morphine Sulfate (morphine) 6 mg Q4H PRN PO SEVERE PAIN LEVEL 7-10; Start 07/01/18 at 16:30 Insulin Aspart (Novolog Insulin Pen) NOVOLOG *MODERATE* ALGORITHM WITH MEALS BEDTIME SC Last administered on 07/08/18 17:27; Admin Dose 4 UNIT; Start 07/01/18 at 21:00 Magnesium Hydroxide (Milk Of Mag) 30 ml BID PO Last administered on 07/07/18 20:38; Admin Dose 30 ML; Start 07/02/18 at 09:00 Vancomycin HCl (Vanco Iv Per Pharmacy) VANCOMYCIN PER PHARMACY PER PROTOCOL XX ; Start 07/02/18 at 12:30 Insulin Aspart (Novolog Insulin Pen) 6 unit WITH MEALS SC Last administered on 07/08/18 17:27; Admin Dose 6 UNIT; Start 07/03/18 at 07:55 Amiodarone HCl (Cordarone) 200 mg DAILY PO Last administered on 07/08/18 08:27; Admin Dose 200 MG; Start 07/04/18 at 09:00 Caspofungin 50 mg/ Sodium Chloride 250 ml @ 250 mls/hr Q24H IVPB Last administered on 07/08/18 15:56; Admin Dose 250 MLS/HR; Start 07/06/18 at 16:00 Meropenem/Sodium Chloride 50 ml @ 100 mls/hr Q12 IVPB Last administered on 07/08/18 08:27; Admin Dose 100 MLS/HR; Start 07/06/18 at 09:00 Vancomycin HCl 250 ml @ 125 mls/hr Q48H IVPB Last administered on 07/08/18 11:19; Admin Dose 125 MLS/HR; Start 07/06/18 at 11:00 Acetaminophen/ Hydrocodone Bitart ([place] (5/325)) 1 tab Q4H PRN PO sever pain Last administered on 07/08/18 08:26; Admin Dose 1 TAB; Start 07/06/18 at 18:00 Insulin Glargine (Lantus) 40 units DAILY SC ; Start 07/07/18 at 17:00 Alex Chávez DO Jul 08, 2018 17:46
[2018-07-08] MEDS: ATORVASTATIN 40 MG TAB PO SCH (21:42)
[2018-07-08] MEDS: GABAPENTIN 300 MG CAP PO SCH (21:42)
[2018-07-08] MEDS: APIXABAN 5 MG TABLET PO SCH (21:42)
[2018-07-09] VITALS (11 sets, daily range): BP systolic 117–172; BP diastolic 52–74; PULSE 60–100; RESP 19–20
[2018-07-09] MEDS: ACCU-CHEK XX SCH (02:17)
[2018-07-09] MEDS: PANTOPRAZOLE (EC) 40 MG TAB PO SCH (05:06)
[2018-07-09] MEDS: INSULIN ASPART [NOVOLOG] 3 ML PEN SC SCH ×7 (07:55→21:00)
[2018-07-09] MEDS: DOCUSATE SODIUM 100 MG CAP PO SCH ×3 (08:29→20:24)
[2018-07-09] MEDS: APIXABAN 5 MG TABLET PO SCH ×2 (08:31→20:25)
[2018-07-09] MEDS: MAGNESIUM HYDROXIDE 30ML CUP PO SCH ×3 (08:31→20:25)
[2018-07-09] MEDS: MEROPENEM 500MG/50 ML (PMX) 50 ML IVPB SCH ×2 (08:31→20:24)
[2018-07-09] MEDS: AMIODARONE 200 MG TAB PO SCH (08:31)
[2018-07-09] MEDS: INSULIN GLARGINE [LANTus] (100 UNITS/ML) SYG SC SCH (08:32)
[2018-07-09] MEDS: COLLAGENASE 5 GM (UD JAR) TOP SCH (08:33)
[2018-07-09] MEDS: BALSAM PERU/CASTOR OIL 60 GM TUBE TOP SCH ×2 (08:33→21:16)
--- NOTE | 2018-07-09 12:43 | CONS ---
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 -Anticoagulant was on hold secondary to acute blood loss anemia requiring blood transfusion. Aspirin also has been stopped. Hemoglobin has remained stable, given high risk of recurrent thromboembolic events, I restarted her Eliquis on 07/08/2018. Would watch hemoglobin closely -Diuretics as needed -Continue to hold any nephrotoxic medications, patient being followed by nephrology. Consultation Date/Type/Reason Admit Date/Time Jun 25, 2018 at 06:24 Initial Consult Date 06/25/18 Type of Consult Cardiology Requesting Provider: NUBIA TEJEDA MD Date/Time of Note DATE: 07/09/18 TIME: 12:42 24 HR Interval Summary Free Text/Dictation Patient seen and examined. Complaining of back pain. As per the nurse, this is been on and off since this morning Exam/Review of Systems Vital Signs Vitals Vital Signs Date Temp Pulse Resp B/P (MAP) Pulse Ox O2 O2 Flow FiO2 Time Delivery Rate 07/09/18 97.8 81 20 144/66 95 11:44 (92) 07/09/18 Nasal 2.0 08:48 Cannula Intake and Output 07/08/18 07/08/18 07/09/18 1414:59 22:59 06:59 IntakeIntake Total 300 ml 800 ml 120 ml OutputOutput Total 550 ml 500 ml BalanceBalance 300 ml 250 ml -380 ml Exam Exam Sleeping but arousable, no apparent distress Head: normocephalic Respiratory: other (Coarse breath sounds bilaterally, no wheezing) Cardiovascular: irregular rhythm (S1-S2 heard) Gastrointestinal: soft, non-tender, bowel sounds Extremities: edema Labs Result Diagram: 07/09/18 0650 07/09/18 0651 Results 24hrs Laboratory Tests Test 07/08/18 17:18 07/08/18 21:47 07/09/18 02:05 07/09/18 06:50 Bedside Glucose 204 276 H 142 White Blood Count 13.7 H Red Blood Count 3.30 L Hemoglobin 9.3 L Hematocrit 30.4 L Mean Corpuscular 92.1 Volume Mean Corpuscular 28.2 L Hemoglobin Mean Corpuscular 30.6 L Hemoglobin Concent Red Cell 15.0 H Distribution Width Platelet Count 341 Mean Platelet Volume 10.3 Immature 1.600 H Granulocytes % Neutrophils % 74.4 Lymphocytes % 11.9 L Monocytes % 8.6 Eosinophils % 3.2 Basophils % 0.3 Nucleated Red Blood 0.0 Cells % Immature 0.220 H Granulocytes # Neutrophils # 10.2 H Lymphocytes # 1.6 Monocytes # 1.2 H Eosinophils # 0.4 Basophils # 0.0 Nucleated Red Blood 0.0 Cells # B-Type Natriuretic 87499 H Peptide Test 07/09/18 06:51 07/09/18 08:26 07/09/18 11:56 Sodium Level 139 Potassium Level 4.9 Chloride Level 101 Carbon Dioxide Level 33 H Anion Gap 5 Blood Urea Nitrogen 49 H Creatinine 1.57 H Est Glomerular Filtrat Rate mL/min Glucose Level 98 Calcium Level 8.5 Bedside Glucose 104 211 Medications Medications Current Medications Atorvastatin Calcium (Lipitor) 40 mg QHS PO Last administered on 07/08/18at 21:42; Admin Dose 40 MG; Start 06/25/18 at 21:00 Docusate Sodium (Colace) 100 mg TID PO Last administered on 07/09/18at 08:29; Admin Dose 100 MG; Start 06/25/18 at 13:00 Miscellaneous Information 1 ea NOTE XX ; Start 06/25/18 at 11:30 Glucose (Glutose) 15 gm Q15M PRN PO DECREASED GLUCOSE; Start 06/25/18 at 11:30 Glucose (Glutose) 22.5 gm Q15M PRN PO DECREASED GLUCOSE; Start 06/25/18 at 11:30 Dextrose (D50w Syringe) 25 ml Q15M PRN IV DECREASED GLUCOSE; Start 06/25/18 at 11:30 Dextrose (D50w Syringe) 50 ml Q15M PRN IV DECREASED GLUCOSE; Start 06/25/18 at 11:30 Glucagon (Glucagen) 1 mg Q15M PRN IM DECREASED GLUCOSE; Start 06/25/18 at 11:30 Glucose (Glutose) 15 gm Q15M PRN BUCCAL DECREASED GLUCOSE; Start 06/25/18 at 11:30 Diagnostic Test (Pha) (Accu-Chek) 1 ea 02 XX Last administered on 07/09/18 02:17; Admin Dose 1 EA; Start 06/26/18 at 02:00 Ondansetron HCl (Zofran Inj) 4 mg Q4H PRN IV NAUSEA AND/OR VOMITING Last administered on 07/03/18 19:04; Admin Dose 4 MG; Start 06/28/18 at 01:30 Clonidine (Catapres) 0.1 mg BID PRN PO SBP > 180 Last administered on 06/30/18 23:33; Admin Dose 0.1 MG; Start 06/28/18 at 14:00 Acetaminophen (Tylenol Tab) 650 mg Q4H PRN PO MILD PAIN(1-3)OR ELEVATED TEMP L ast administered on 07/07/18 23:48; Admin Dose 650 MG; Start 06/29/18 at 09:30 Gabapentin (Neurontin) 300 mg HS PO Last administered on 07/08/18 21:42; Admin Dose 300 MG; Start 06/29/18 at 21:00 Pantoprazole (Protonix Tab) 40 mg DAILY@06 PO Last administered on 07/09/18 05:06; Admin Dose 40 MG; Start 06/30/18 at 06:00 Miscellaneous Information (Pending Santyl Order For Wound Care) This patient h a... PRN PRN XX WOUND CARE; Start 06/30/18 at 08:00 Collagenase (Santyl) 1 applic DAILY TOP Last administered on 07/09/18 08:33; Admin Dose 1 APPLIC; Start 07/02/18 at 09:00 Epoetin Alejo-epbx (Retacrit) 6,000 unit TuThSa@1700 SC Last administered on 07/08/18 17:21; Admin Dose 6,000 UNIT; Start 07/01/18 at 17:00 Lorazepam (Ativan) 0.5 mg Q8H PRN PO ANXIETY; Start 07/01/18 at 16:30 Morphine Sulfate (morphine) 6 mg Q4H PRN PO SEVERE PAIN LEVEL 7-10; Start 07/01/18 at 16:30 Insulin Aspart (Novolog Insulin Pen) NOVOLOG *MODERATE* ALGORITHM WITH MEALS BEDTIME SC Last administered on 07/09/18 12:00; Admin Dose 4 UNIT; Start 07/01/18 at 21:00 Magnesium Hydroxide (Milk Of Mag) 30 ml BID PO Last administered on 07/08/18 21:42; Admin Dose 30 ML; Start 07/02/18 at 09:00 Vancomycin HCl (Vanco Iv Per Pharmacy) VANCOMYCIN PER PHARMACY PER PROTOCOL XX ; Start 07/02/18 at 12:30 Insulin Aspart (Novolog Insulin Pen) 6 unit WITH MEALS SC Last administered on 07/09/18 11:58; Admin Dose 6 UNIT; Start 07/03/18 at 07:55 Amiodarone HCl (Cordarone) 200 mg DAILY PO Last administered on 07/09/18 08:31; Admin Dose 200 MG; Start 07/04/18 at 09:00 Caspofungin 50 mg/ Sodium Chloride 250 ml @ 250 mls/hr Q24H IVPB Last administered on 07/08/18 15:56; Admin Dose 250 MLS/HR; Start 07/06/18 at 16:00 Meropenem/Sodium Chloride 50 ml @ 100 mls/hr Q12 IVPB Last administered on 07/09/18 08:31; Admin Dose 100 MLS/HR; Start 07/06/18 at 09:00 Vancomycin HCl 250 ml @ 125 mls/hr Q48H IVPB Last administered on 07/08/18 11:19; Admin Dose 125 MLS/HR; Start 07/06/18 at 11:00 Acetaminophen/ Hydrocodone Bitart ([place] (5/325)) 1 tab Q4H PRN PO sever pain Last administered on 07/08/18 21:42; Admin Dose 1 TAB; Start 07/06/18 at 18:00 Insulin Glargine (Lantus) 40 units DAILY SC Last administered on 07/09/18 08:32; Admin Dose 40 UNITS; Start 07/07/18 at 17:00 Apixaban (Eliquis) 2.5 mg BID PO Last administered on 07/09/18 08:31; Admin Dose 2.5 MG; Start 07/08/18 at 21:00 Alex Chávez DO Jul 09, 2018 12:43
--- NOTE | 2018-07-09 13:34 | PN ---
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 The patient was admitted and was started on anticoagulation. She had thrombectomy by Dr. Dawson which gradually increased her kidney functions. Creatinine increased due to the dye . During the coming days, the patient had elevated white count, yeast infections, acute on chronic r enal failure and multiple other stones in the lower extremities. The patient even though continuing anticoagulation started having bleeding and dropping the H and H and hematomas; therefore, the decisi on was made by the photography spotter to discontinue the coagulation. The patient is on no anticoagulation of any at this time. The patient gradually improved with hydration. Kidney functions today 019. OBJECTIVE: GENERAL: The patient is doing much better, alert and oriented x3, eating breakfast, looks very good today. She denies of any chest pain. Denies of any abdominal pain. Denies of any hesitancy, urgenc y or pain during urination. She just feels very weak. VITAL SIGNS: Blood pressure 135/62, heart rate is 66, respiratory rate 18. She is afebrile. HEENT: Head is atraumatic, normocephalic. Pupils are equal and reactive to light. Extraocular musc les are intact. NECK: Supple. No JVD, no surgical scars, no lymph nodes palpable over the neck. CHEST: AP contour within normal limits. BREASTS: Nipples are normal. No nipple retraction. HEART: S1, S2. Regular rate and rhythm with cardiomegaly and extrasystole frequently, in and out of atrial fibrillation actually. LUNGS: Very mild crackles over the bases of the lungs; otherwise negative. ABDOMEN: Soft. Positive bowel sounds. No hepatosplenomegaly. No masses palpable over the abdomen. No rebound tenderness. EXTREMITIES: No edema, clubbing or cyanosis of the extremities. Pulses are decreased but palpable. GENITOURINARY: She still has over the left inguinal area tenderness. She is urinating. Urine outpu t is very good. LABORATORY DATA: Today CBC: White blood cells 13.7, hemoglobin 9.3, hematocrit 30.4 and platelet co unt 341. Chemistry today: Sodium 139, potassium 4.9, BUN 49, creatinine 1.57, the best that she has ever. Today, we will continue the treatment. We will work with physical therapy and I suggested case manag er to discuss with the family. I also called the son, discussing that the patient will need another 5 to 7 days of IV antibiotics per ID specialist and therefore[facility] hopefully continuing IV antibiotic and physical therapy as her labs are almost clos e to normal as possible for her. Dictated By: NUBIA TEJEDA MD SB/NTS Conf#: [id number] DID#: [id number] CC: ERIK CHILDERS MD; ERNESTO MCGARRY MD;*End*
--- NOTE | 2018-07-09 13:45 | CONS ---
Assessment/Plan Assessment/Plan Hospital Course (Demo Recall) No acute events. Looks comfortable, afebrile Microbiology: Urine culture growing Carmella species, not albicans Diagnostics: Ultrasound of left lower extremity revealed 5 cm depressed containi ng collection in the superficial soft tissue of the left inguinal region finding could reflect hematoma possible abscess. Please see full report in the chart. CT abdomen and pelvis from yesterday revealed distended urinary bladder with mild bilateral hydronephrosis without evidence of obstructing renal stone. Stable postsurgical changes of partial left nephrectomy. 4.4 x 2.5 cm lobulated region of soft tissue density with small foci of air surrounding stranding in the left groin adjacent to the left femoral artery. Please see full report in the chart Antimicrobials: Cancidas Merrem Vancomycin Physical examination: This is obese well-developed [place] woman who is in no distress. Head atraumatic normocephalic sclera nonicteric. Neck is supple. Chest rise symmetrical breath sounds clear, diminished bases. Heart: S1-S2. Abdomen soft, bowel sounds present. Extremities without cyanosis. Left lower extremity dressing intact Assessment: 1. Systemic inflammatory response syndrome with leukocytosis==> multifactorial 2. Left groin hematoma versus abscess 3. Urinary tract infection 4. Urinary retention, s/p Odonnell 5. Occlusive left common femoral artery status post thrombectomy 6. Coronary artery disease, history of CABG 7. Paroxysmal atrial fibrillation 8. Diabetes 9. Abnormal 2D echo, rule out vegetations versus thrombus versus tumor on the right atrium 10. History of renal cell carcinoma status post partial nephrectomy Plan: Remains stable, wbc trending down, recommend to keep on Vanco Merrem for 6 more days, Cancidas for 2 more days DW staff DW RN Consultation Date/Type/Reason Admit Date/Time Jun 25, 2018 at 06:24 Initial Consult Date 06/26/18 Type of Consult id Requesting Provider: NUBIA TEJEDA MD Date/Time of Note DATE: 07/09/18 TIME: 13:41 Exam/Review of Systems Exam Vitals Vital Signs Date Temp Pulse Resp B/P (MAP) Pulse Ox O2 O2 Flow FiO2 Time Delivery Rate 07/09/18 97.8 81 20 144/66 95 11:44 (92) 07/09/18 Nasal 2.0 08:48 Cannula Intake and Output 07/08/18 07/08/18 07/09/18 1515:00 23:00 07:00 IntakeIntake Total 300 ml 800 ml 120 ml OutputOutput Total 550 ml 500 ml BalanceBalance 300 ml 250 ml -380 ml Results Result Diagram: 07/09/18 0650 07/09/18 0651 Results 24hrs Laboratory Tests Test 07/08/18 17:18 07/08/18 21:47 07/09/18 02:05 07/09/18 06:50 Bedside Glucose 204 276 H 142 White Blood Count 13.7 H Red Blood Count 3.30 L Hemoglobin 9.3 L Hematocrit 30.4 L Mean Corpuscular 92.1 Volume Mean Corpuscular 28.2 L Hemoglobin Mean Corpuscular 30.6 L Hemoglobin Concent Red Cell 15.0 H Distribution Width Platelet Count 341 Mean Platelet Volume 10.3 Immature 1.600 H Granulocytes % Neutrophils % 74.4 Lymphocytes % 11.9 L Monocytes % 8.6 Eosinophils % 3.2 Basophils % 0.3 Nucleated Red Blood 0.0 Cells % Immature 0.220 H Granulocytes # Neutrophils # 10.2 H Lymphocytes # 1.6 Monocytes # 1.2 H Eosinophils # 0.4 Basophils # 0.0 Nucleated Red Blood 0.0 Cells # B-Type Natriuretic 50308 H Peptide Test 07/09/18 06:51 07/09/18 08:26 07/09/18 11:56 Sodium Level 139 Potassium Level 4.9 Chloride Level 101 Carbon Dioxide Level 33 H Anion Gap 5 Blood Urea Nitrogen 49 H Creatinine 1.57 H Est Glomerular Filtrat Rate mL/min Glucose Level 98 Calcium Level 8.5 Bedside Glucose 104 211 Medications Medication Current Medications Atorvastatin Calcium (Lipitor) 40 mg QHS PO Last administered on 07/08/18at 21:42; Admin Dose 40 MG; Start 06/25/18 at 21:00 Docusate Sodium (Colace) 100 mg TID PO Last administered on 07/09/18at 08:29; Admin Dose 100 MG; Start 06/25/18 at 13:00 Miscellaneous Information 1 ea NOTE XX ; Start 06/25/18 at 11:30 Glucose (Glutose) 15 gm Q15M PRN PO DECREASED GLUCOSE; Start 06/25/18 at 11:30 Glucose (Glutose) 22.5 gm Q15M PRN PO DECREASED GLUCOSE; Start 06/25/18 at 11:30 Dextrose (D50w Syringe) 25 ml Q15M PRN IV DECREASED GLUCOSE; Start 06/25/18 at 11:30 Dextrose (D50w Syringe) 50 ml Q15M PRN IV DECREASED GLUCOSE; Start 06/25/18 at 11:30 Glucagon (Glucagen) 1 mg Q15M PRN IM DECREASED GLUCOSE; Start 06/25/18 at 11:30 Glucose (Glutose) 15 gm Q15M PRN BUCCAL DECREASED GLUCOSE; Start 06/25/18 at 11:30 Diagnostic Test (Pha) (Accu-Chek) 1 ea 02 XX Last administered on 07/09/18 02:17; Admin Dose 1 EA; Start 06/26/18 at 02:00 Ondansetron HCl (Zofran Inj) 4 mg Q4H PRN IV NAUSEA AND/OR VOMITING Last administered on 07/03/18 19:04; Admin Dose 4 MG; Start 06/28/18 at 01:30 Clonidine (Catapres) 0.1 mg BID PRN PO SBP > 180 Last administered on 06/30/18 23:33; Admin Dose 0.1 MG; Start 06/28/18 at 14:00 Acetaminophen (Tylenol Tab) 650 mg Q4H PRN PO MILD PAIN(1-3)OR ELEVATED TEMP Last administered on 07/07/18 23:48; Admin Dose 650 MG; Start 06/29/18 at 09:30 Gabapentin (Neurontin) 300 mg HS PO Last administered on 07/08/18 21:42; Admin Dose 300 MG; Start 06/29/18 at 21:00 Pantoprazole (Protonix Tab) 40 mg DAILY@06 PO Last administered on 07/09/18 05:06; Admin Dose 40 MG; Start 06/30/18 at 06:00 Miscellaneous Information (Pending Santyl Order For Wound Care) This patient green... PRN PRN XX WOUND CARE; Start 06/30/18 at 08:00 Collagenase (Santyl) 1 applic DAILY TOP Last administered on 07/09/18 08:33; Admin Dose 1 APPLIC; Start 07/02/18 at 09:00 Epoetin Alejo-epbx (Retacrit) 6,000 unit TuThSa@1700 SC Last administered on 07/08/18 17:21; Admin Dose 6,000 UNIT; Start 07/01/18 at 17:00 Lorazepam (Ativan) 0.5 mg Q8H PRN PO ANXIETY; Start 07/01/18 at 16:30 Morphine Sulfate (morphine) 6 mg Q4H PRN PO SEVERE PAIN LEVEL 7-10; Start 07/01/18 at 16:30 Insulin Aspart (Novolog Insulin Pen) NOVOLOG *MODERATE* ALGORITHM WITH MEALS BEDTIME SC Last administered on 07/09/18 12:00; Admin Dose 4 UNIT; Start 07/01/18 at 21:00 Magnesium Hydroxide (Milk Of Mag) 30 ml BID PO Last administered on 07/08/18 21:42; Admin Dose 30 ML; Start 07/02/18 at 09:00 Vancomycin HCl (Vanco Iv Per Pharmacy) VANCOMYCIN PER PHARMACY PER PROTOCOL XX ; Start 07/02/18 at 12:30 Insulin Aspart (Novolog Insulin Pen) 6 unit WITH MEALS SC Last administered on 07/09/18 11:58; Admin Dose 6 UNIT; Start 07/03/18 at 07:55 Amiodarone HCl (Cordarone) 200 mg DAILY PO Last administered on 07/09/18 08:31; Admin Dose 200 MG; Start 07/04/18 at 09:00 Caspofungin 50 mg/ Sodium Chloride 250 ml @ 250 mls/hr Q24H IVPB Last administered on 07/08/18 15:56; Admin Dose 250 MLS/HR; Start 07/06/18 at 16:00 Meropenem/Sodium Chloride 50 ml @ 100 mls/hr Q12 IVPB Last administered on 07/09/18 08:31; Admin Dose 100 MLS/HR; Start 07/06/18 at 09:00 Vancomycin HCl 250 ml @ 125 mls/hr Q48H IVPB Last administered on 07/08/18 11:19; Admin Dose 125 MLS/HR; Start 07/06/18 at 11:00 Acetaminophen/ Hydrocodone Bitart ([place] (5/325)) 1 tab Q4H PRN PO sever pain Last administered on 07/08/18 21:42; Admin Dose 1 TAB; Start 07/06/18 at 18:00 Insulin Glargine (Lantus) 40 units DAILY SC Last administered on 07/09/18 08:32; Admin Dose 40 UNITS; Start 07/07/18 at 17:00 Apixaban (Eliquis) 2.5 mg BID PO Last administered on 07/09/18at 08:31; Admin Dose 2.5 MG; Start 07/08/18 at 21:00 BARBARA ORDAZ NP Jul 09, 2018 13:45
[2018-07-09] MEDS: CASPOFUNGIN 50 MG in SOD CHLORIDE 0.9% 250 ML IVPB SCH (15:19)
--- NOTE | 2018-07-09 16:35 | CONS ---
Assessment/Plan Assessment/Plan Assessment/Plan (Daily) - Acute Kidney Injury - Chronic Kidney Disease - DM / DM Nephropathy - Hyperkalemia - CAD / Post CABG - Hx of NSAID use - PVD / Ischemia - CAD / CHF - Anaemia - Hypertension / HTN Nephrosclerosis - High Cholesterol PLAN: - Poorly controlled DM with latest HgA1c > 10% & a long hx of NSAIDs use - BRANDON / CKD secondary to above with severe PVD / HTN Nephrosclerosis - Most probably require intervention which requires IV contrast & high risk Contrast Nephropathy at this point - At this point she is off all Nephrotoxic agents - Continue with Gentle hydration - Watch for sign of volume overload - Check: * URIC ACID * FENa * Urine Eosinophilia * Serial Creatinine check - Recovering BRANDON - Tolerated procedure well ( post Thrombectomy ) - Dropping H/H - Check IRON status - Start EPOGEN - Electrolytes stable - Slight increase in creatinine today - Avoid negative balance - Monitor H/H - On EPO - May need Blood transfusion - Stable CKD / BRANDON with improved creatinine - Monitor potassium closely - WBC increasing ? - Follow up with Culture results - H/H stable - On EPOGEN - Stable CKD / BRANDON - Creatinine improved - Post Transfusion - On EPO - IV Abx - Avoid High negative balance - Electrolytes stable Consultation Date/Type/Reason Admit Date/Time Jun 25, 2018 at 06:24 Initial Consult Date 06/26/18 Type of Consult - Nephrology Requesting Provider: NUBIA TEJEDA MD Date/Time of Note DATE: 07/09/18 TIME: 16:34 24 HR Interval Summary Constitutional: no complaints, improved Exam/Review of Systems Exam Vitals Vital Signs Date Temp Pulse Resp B/P (MAP) Pulse Ox O2 O2 Flow FiO2 Time Delivery Rate 07/09/18 98.8 100 20 172/74 99 15:16 (106) 07/09/18 Nasal 2.0 08:48 Cannula Intake and Output 07/08/18 07/08/18 07/09/18 1515:00 23:00 07:00 IntakeIntake Total 300 ml 800 ml 120 ml OutputOutput Total 550 ml 500 ml BalanceBalance 300 ml 250 ml -380 ml Constitutional: alert Psych: no complaints Head: normocephalic Eyes: nl conjunctiva Respiratory: crackles/rales Cardiovascular: systolic murmur Gastrointestinal: soft Results Result Diagram: 07/09/18 0650 07/09/18 0651 Results 24hrs Laboratory Tests Test 07/08/18 17:18 07/08/18 21:47 07/09/18 02:05 07/09/18 06:50 Bedside Glucose 204 276 H 142 White Blood Count 13.7 H Red Blood Count 3.30 L Hemoglobin 9.3 L Hematocrit 30.4 L Mean Corpuscular 92.1 Volume Mean Corpuscular 28.2 L Hemoglobin Mean Corpuscular 30.6 L Hemoglobin Concent Red Cell 15.0 H Distribution Width Platelet Count 341 Mean Platelet Volume 10.3 Immature 1.600 H Granulocytes % Neutrophils % 74.4 Lymphocytes % 11.9 L Monocytes % 8.6 Eosinophils % 3.2 Basophils % 0.3 Nucleated Red Blood 0.0 Cells % Immature 0.220 H Granulocytes # Neutrophils # 10.2 H Lymphocytes # 1.6 Monocytes # 1.2 H Eosinophils # 0.4 Basophils # 0.0 Nucleated Red Blood 0.0 Cells # B-Type Natriuretic 27128 H Peptide Test 07/09/18 06:51 07/09/18 08:26 07/09/18 11:56 Sodium Level 139 Potassium Level 4.9 Chloride Level 101 Carbon Dioxide Level 33 H Anion Gap 5 Blood Urea Nitrogen 49 H Creatinine 1.57 H Est Glomerular Filtrat Rate mL/min Glucose Level 98 Calcium Level 8.5 Bedside Glucose 104 211 Medications Medication Current Medications Atorvastatin Calcium (Lipitor) 40 mg QHS PO Last administered on 07/08/18at 21:42; Admin Dose 40 MG; Start 06/25/18 at 21:00 Docusate Sodium (Colace) 100 mg TID PO Last administered on 07/09/18at 15:09; Admin Dose 100 MG; Start 06/25/18 at 13:00 Miscellaneous Information 1 ea NOTE XX ; Start 06/25/18 at 11:30 Glucose (Glutose) 15 gm Q15M PRN PO DECREASED GLUCOSE; Start 06/25/18 at 11:30 Glucose (Glutose) 22.5 gm Q15M PRN PO DECREASED GLUCOSE; Start 06/25/18 at 11:30 Dextrose (D50w Syringe) 25 ml Q15M PRN IV DECREASED GLUCOSE; Start 06/25/18 at 11:30 Dextrose (D50w Syringe) 50 ml Q15M PRN IV DECREASED GLUCOSE; Start 06/25/18 at 11:30 Glucagon (Glucagen) 1 mg Q15M PRN IM DECREASED GLUCOSE; Start 06/25/18 at 11:30 Glucose (Glutose) 15 gm Q15M PRN BUCCAL DECREASED GLUCOSE; Start 06/25/18 at 11:30 Diagnostic Test (Pha) (Accu-Chek) 1 ea 02 XX Last administered on 07/09/18at 02:17; Admin Dose 1 EA; Start 06/26/18 at 02:00 Ondansetron HCl (Zofran Inj) 4 mg Q4H PRN IV NAUSEA AND/OR VOMITING Last administered on 07/03/18at 19:04; Admin Dose 4 MG; Start 06/28/18 at 01:30 Clonidine (Catapres) 0.1 mg BID PRN PO SBP > 180 Last administered on 06/30/18at 23:33; Admin Dose 0.1 MG; Start 06/28/18 at 14:00 Acetaminophen (Tylenol Tab) 650 mg Q4H PRN PO MILD PAIN(1-3)OR ELEVATED TEMP Last administered on 07/07/18 23:48; Admin Dose 650 MG; Start 06/29/18 at 09:30 Gabapentin (Neurontin) 300 mg HS PO Last administered on 07/08/18 21:42; Admin Dose 300 MG; Start 06/29/18 at 21:00 Pantoprazole (Protonix Tab) 40 mg DAILY@06 PO Last administered on 07/09/18 05:06; Admin Dose 40 MG; Start 06/30/18 at 06:00 Miscellaneous Information (Pending Santyl Order For Wound Care) This patient green... PRN PRN XX WOUND CARE; Start 06/30/18 at 08:00 Collagenase (Santyl) 1 applic DAILY TOP Last administered on 07/09/18 08:33; Admin Dose 1 APPLIC; Start 07/02/18 at 09:00 Epoetin Alejo-epbx (Retacrit) 6,000 unit TuThSa@1700 SC Last administered on 17:21; Admin Dose 6,000 UNIT; Start 07/01/18 at 17:00 Lorazepam (Ativan) 0.5 mg Q8H PRN PO ANXIETY; Start 07/01/18 at 16:30 Morphine Sulfate (morphine) 6 mg Q4H PRN PO SEVERE PAIN LEVEL 7-10; Start 07/01/18 at 16:30 Insulin Aspart (Novolog Insulin Pen) NOVOLOG *MODERATE* ALGORITHM WITH MEALS BEDTIME SC Last administered on 07/09/18 12:00; Admin Dose 4 UNIT; Start 07/01/18 at 21:00 Magnesium Hydroxide (Milk Of Mag) 30 ml BID PO Last administered on 07/09/18 15:19; Admin Dose 30 ML; Start 07/02/18 at 09:00 Vancomycin HCl (Vanco Iv Per Pharmacy) VANCOMYCIN PER PHARMACY PER PROTOCOL XX ; Start 07/02/18 at 12:30 Insulin Aspart (Novolog Insulin Pen) 6 unit WITH MEALS SC Last administered on 07/09/18 11:58; Admin Dose 6 UNIT; Start 07/03/18 at 07:55 Amiodarone HCl (Cordarone) 200 mg DAILY PO Last administered on 07/09/18 08:31; Admin Dose 200 MG; Start 07/04/18 at 09:00 Caspofungin 50 mg/ Sodium Chloride 250 ml @ 250 mls/hr Q24H IVPB Last administered on 07/09/18 15:19; Admin Dose 250 MLS/HR; Start 07/06/18 at 16:00 Meropenem/Sodium Chloride 50 ml @ 100 mls/hr Q12 IVPB Last administered on 07/09/18 08:31; Admin Dose 100 MLS/HR; Start 07/06/18 at 09:00 Vancomycin HCl 250 ml @ 125 mls/hr Q48H IVPB Last administered on 07/08/18 11:19; Admin Dose 125 MLS/HR; Start 07/06/18 at 11:00 Acetaminophen/ Hydrocodone Bitart ([place] (5/325)) 1 tab Q4H PRN PO sever pain Last administered on 07/08/18 21:42; Admin Dose 1 TAB; Start 07/06/18 at 18:00 Insulin Glargine (Lantus) 40 units DAILY SC Last administered on 07/09/18 08:32; Admin Dose 40 UNITS; Start 07/07/18 at 17:00 Apixaban (Eliquis) 2.5 mg BID PO Last administered on 07/09/18 08:31; Admin Dose 2.5 MG; Start 07/08/18 at 21:00 FRANCISCO MARISCAL MD Jul 09, 2018 16:35
[2018-07-09] MEDS: ATORVASTATIN 40 MG TAB PO SCH (20:24)
[2018-07-09] MEDS: GABAPENTIN 300 MG CAP PO SCH (20:25)
[2018-07-10] VITALS (11 sets, daily range): BP systolic 115–194; BP diastolic 53–74; PULSE 66–108; RESP 18–20
[2018-07-10] MEDS: ACCU-CHEK XX SCH (01:56)
[2018-07-10] MEDS: PANTOPRAZOLE (EC) 40 MG TAB PO SCH (05:16)
[2018-07-10] MEDS: INSULIN ASPART [NOVOLOG] 3 ML PEN SC SCH ×7 (07:55→21:00)
[2018-07-10] MEDS: MEROPENEM 500MG/50 ML (PMX) 50 ML IVPB SCH ×2 (09:10→20:30)
[2018-07-10] MEDS: DOCUSATE SODIUM 100 MG CAP PO SCH ×3 (09:11→20:17)
[2018-07-10] MEDS: APIXABAN 5 MG TABLET PO SCH ×2 (09:11→20:13)
[2018-07-10] MEDS: COLLAGENASE 5 GM (UD JAR) TOP SCH (09:11)
[2018-07-10] MEDS: MAGNESIUM HYDROXIDE 30ML CUP PO SCH ×2 (09:12→20:16)
[2018-07-10] MEDS: AMIODARONE 200 MG TAB PO SCH (09:15)
[2018-07-10] MEDS: BALSAM PERU/CASTOR OIL 60 GM TUBE TOP SCH ×2 (09:19→20:18)
[2018-07-10] MEDS: INSULIN GLARGINE [LANTus] (100 UNITS/ML) SYG SC SCH (09:19)
[2018-07-10] MEDS: VANCOMYCIN 1 GM 250 ML IVPB SCH (11:26)
--- NOTE | 2018-07-10 13:14 | CONS ---
Assessment/Plan Assessment/Plan Hospital Course (Demo Recall) No acute events per dw staff. Looks comfortable, no fevers Microbiology: Urine culture growing Carmella species, not albicans Diagnostics: Ultrasound of left lower extremity revealed 5 cm depressed containing collection in the superficial soft tissue of the left inguinal region finding could reflect hematoma possible abscess. Please see full report in the chart. CT abdomen and pelvis from yesterday revealed distended urinary bladder with mild bilateral hydronephrosis without evidence of obstructing renal stone. Stable postsurgical changes of partial left nephrectomy. 4.4 x 2.5 cm lobulated region of soft tissue density with small foci of air surrounding stranding in the left groin adjacent to the left femoral artery. Please see full report in the chart Antimicrobials: Cancidas Merrem Vancomycin Physical examination: This is obese well-developed [place] woman who is in no distress. Head atraumatic normocephalic sclera nonicteric. Neck is supple. Chest rise symmetrical breath sounds clear, diminished bases. Heart: S1-S2. Abdomen soft, bowel sounds present. Extremities without cyanosis. Left lower extremity dressing intact Assessment: 1. Systemic inflammatory response syndrome with leukocytosis==> resolving 2. Left groin hematoma versus abscess 3. Urinary tract infection 4. Urinary retention, s/p Odonnell 5. Occlusive left common femoral artery status post thrombectomy 6. Coronary artery disease, history of CABG 7. Paroxysmal atrial fibrillation 8. Diabetes 9. Abnormal 2D echo, rule out vegetations versus thrombus versus tumor on the right atrium 10. History of renal cell carcinoma status post partial nephrectomy Plan: Remains stable, wbc continues to decrease, pending dc arrangements on current abx DW staff DW RN Consultation Date/Type/Reason Admit Date/Time Jun 25, 2018 at 06:24 Initial Consult Date 06/26/18 Type of Consult id Requesting Provider: NUBIA TEJEDA MD Date/Time of Note DATE: 07/10/18 TIME: 13:13 Exam/Review of Systems Exam Vitals Vital Signs Date Temp Pulse Resp B/P (MAP) Pulse Ox O2 O2 Flow FiO2 Time Delivery Rate 07/10/18 97.4 66 19 194/70 96 11:04 (111) 07/10/18 2.0 10:51 07/10/18 Nasal 08:20 Cannula Intake and Output 07/09/18 07/09/18 07/10/18 1414:59 22:59 06:59 IntakeIntake Total 550 ml 120 ml OutputOutput Total 1103 ml BalanceBalance 550 ml -983 ml Results Result Diagram: 07/10/18 0754 07/10/18 0754 Results 24hrs Laboratory Tests Test 07/09/18 17:36 07/09/18 20:55 07/10/18 07:54 07/10/18 08:15 Bedside Glucose 207 188 94 White Blood Count 11.1 H Red Blood Count 3.43 L Hemoglobin 9.6 L Hematocrit 31.5 L Mean Corpuscular 91.8 Volume Mean Corpuscular 28.0 L Hemoglobin Mean Corpuscular 30.5 L Hemoglobin Concent Red Cell 15.0 H Distribution Width Platelet Count 321 Mean Platelet Volume 10.6 H Immature 1.300 H Granulocytes % Neutrophils % 71.2 Lymphocytes % 13.5 L Monocytes % 10.2 Eosinophils % 3.3 Basophils % 0.5 Nucleated Red Blood 0.0 Cells % Immature 0.140 H Granulocytes # Neutrophils # 7.9 H Lymphocytes # 1.5 Monocytes # 1.1 H Eosinophils # 0.4 Basophils # 0.1 Nucleated Red Blood 0.0 Cells # Sodium Level 139 Potassium Level 5.0 Chloride Level 105 Carbon Dioxide Level 32 H Anion Gap 2 L Blood Urea Nitrogen 49 H Creatinine 1.34 H Est Glomerular Filtrat Rate mL/min Glucose Level 64 #L Calcium Level 8.7 B-Type Natriuretic 7860 H Peptide Test 07/10/18 10:20 07/10/18 11:33 Vancomycin Level 10.7 Trough Bedside Glucose 176 Medications Medication Current Medications Atorvastatin Calcium (Lipitor) 40 mg QHS PO Last administered on 07/09/18at 20:24; Admin Dose 40 MG; Start 06/25/18 at 21:00 Docusate Sodium (Colace) 100 mg TID PO Last administered on 07/10/18at 09:11; Admin Dose 100 MG; Start 06/25/18 at 13:00 Miscellaneous Information 1 ea NOTE XX ; Start 06/25/18 at 11:30 Glucose (Glutose) 15 gm Q15M PRN PO DECREASED GLUCOSE; Start 06/25/18 at 11:30 Glucose (Glutose) 22.5 gm Q15M PRN PO DECREASED GLUCOSE; Start 06/25/18 at 11:30 Dextrose (D50w Syringe) 25 ml Q15M PRN IV DECREASED GLUCOSE; Start 06/25/18 at 11:30 Dextrose (D50w Syringe) 50 ml Q15M PRN IV DECREASED GLUCOSE; Start 06/25/18 at 11:30 Glucagon (Glucagen) 1 mg Q15M PRN IM DECREASED GLUCOSE; Start 06/25/18 at 11:30 Glucose (Glutose) 15 gm Q15M PRN BUCCAL DECREASED GLUCOSE; Start 06/25/18 at 11:30 Diagnostic Test (Pha) (Accu-Chek) 1 ea 02 XX Last administered on 07/09/18 02:17; Admin Dose 1 EA; Start 06/26/18 at 02:00 Ondansetron HCl (Zofran Inj) 4 mg Q4H PRN IV NAUSEA AND/OR VOMITING Last administered on 07/03/18 19:04; Admin Dose 4 MG; Start 06/28/18 at 01:30 Clonidine (Catapres) 0.1 mg BID PRN PO SBP > 180 Last administered on 06/30/18 23:33; Admin Dose 0.1 MG; Start 06/28/18 at 14:00 Acetaminophen (Tylenol Tab) 650 mg Q4H PRN PO MILD PAIN(1-3)OR ELEVATED TEMP Last administered on 07/07/18 23:48; Admin Dose 650 MG; Start 06/29/18 at 09:30 Gabapentin (Neurontin) 300 mg HS PO Last administered on 07/09/18 20:25; Admin Dose 300 MG; Start 06/29/18 at 21:00 Pantoprazole (Protonix Tab) 40 mg DAILY@06 PO Last administered on 07/10/18 05:16; Admin Dose 40 MG; Start 06/30/18 at 06:00 Miscellaneous Information (Pending Santyl Order For Wound Care) This patient green... PRN PRN XX WOUND CARE; Start 06/30/18 at 08:00 Collagenase (Santyl) 1 applic DAILY TOP Last administered on 07/10/18 09:11; Admin Dose 1 APPLIC; Start 07/02/18 at 09:00 Epoetin Alejo-epbx (Retacrit) 6,000 unit TuThSa@1700 SC Last administered on 07/08/18 17:21; Admin Dose 6,000 UNIT; Start 07/01/18 at 17:00 Lorazepam (Ativan) 0.5 mg Q8H PRN PO ANXIETY; Start 07/01/18 at 16:30 Morphine Sulfate (morphine) 6 mg Q4H PRN PO SEVERE PAIN LEVEL 7-10; Start 07/01/18 at 16:30 Insulin Aspart (Novolog Insulin Pen) NOVOLOG *MODERATE* ALGORITHM WITH MEALS BEDTIME SC Last administered on 07/10/18 11:38; Admin Dose 2 UNIT; Start 07/01/18 at 21:00 Magnesium Hydroxide (Milk Of Mag) 30 ml BID PO Last administered on 07/10/18 09:12; Admin Dose 30 ML; Start 07/02/18 at 09:00 Vancomycin HCl (Vanco Iv Per Pharmacy) VANCOMYCIN PER PHARMACY PER PROTOCOL XX ; Start 07/02/18 at 12:30 Insulin Aspart (Novolog Insulin Pen) 6 unit WITH MEALS SC Last administered on 07/10/18 11:37; Admin Dose 6 UNIT; Start 07/03/18 at 07:55 Amiodarone HCl (Cordarone) 200 mg DAILY PO Last administered on 07/10/18 09:15; Admin Dose 200 MG; Start 07/04/18 at 09:00 Caspofungin 50 mg/ Sodium Chloride 250 ml @ 250 mls/hr Q24H IVPB Last ad ministered on 07/09/18 15:19; Admin Dose 250 MLS/HR; Start 07/06/18 at 16:00 Meropenem/Sodium Chloride 50 ml @ 100 mls/hr Q12 IVPB Last administered on 07/10/18 09:10; Admin Dose 100 MLS/HR; Start 07/06/18 at 09:00 Vancomycin HCl 250 ml @ 125 mls/hr Q48H IVPB Last administered on 07/10/18 11:26; Admin Dose 125 MLS/HR; Start 07/06/18 at 11:00 Acetaminophen/ Hydrocodone Bitart ([place] (5/325)) 1 tab Q4H PRN PO sever pain Last administered on 07/08/18 21:42; Admin Dose 1 TAB; Start 07/06/18 at 18:00 Insulin Glargine (Lantus) 40 units DAILY SC Last administered on 07/10/18 09:19; Admin Dose 40 UNITS; Start 07/07/18 at 17:00 Apixaban (Eliquis) 2.5 mg BID PO Last administered on 07/10/18at 09:11; Admin Dose 2.5 MG; Start 07/08/18 at 21:00 BARBARA ORDAZ NP Jul 10, 2018 13:14
--- NOTE | 2018-07-10 13:15 | CONS ---
Assessment/Plan Assessment/Plan Assessment/Plan (Daily) Assessment/Plan (Daily) - Acute Kidney Injury - Chronic Kidney Disease - DM / DM Nephropathy - Hyperkalemia - CAD / Post CABG - Hx of NSAID use - PVD / Ischemia - CAD / CHF - Anaemia - Hypertension / HTN Nephrosclerosis - High Cholesterol PLAN: - Poorly controlled DM with latest HgA1c > 10% & a long hx of NSAIDs use - BRANDON / CKD secondary to above with severe PVD / HTN Nephrosclerosis - Most probably require intervention which requires IV contrast & high risk Contrast Nephropathy at this point - At this point she is off all Nephrotoxic agents - Continue with Gentle hydration - Watch for sign of volume overload - Check: * URIC ACID * FENa * Urine Eosinophilia * Serial Creatinine check - Recovering BRANDON - Tolerated procedure well ( post Thrombectomy ) - Dropping H/H - Check IRON status - Start EPOGEN - Electrolytes stable - Slight increase in creatinine today - Avoid negative balance - Monitor H/H - On EPO - May need Blood transfusion - Stable CKD / BRANDON with improved creatinine - Monitor potassium closely - WBC increasing ? - Follow up with Culture results - H/H stable - On EPOGEN - Stable CKD / BRANDON - Creatinine improved - Post Transfusion - On EPO - IV Abx - Avoid High negative balance - Electrolytes stable Consultation Date/Type/Reason Admit Date/Time Jun 25, 2018 at 06:24 Initial Consult Date 06/26/18 Type of Consult - Nephrology Requesting Provider: NUBIA TEJEDA MD Date/Time of Note DATE: 07/10/18 TIME: 13:15 24 HR Interval Summary Constitutional: no complaints, improved Exam/Review of Systems Exam Vitals Vital Signs Date Temp Pulse Resp B/P (MAP) Pulse Ox O2 O2 Flow FiO2 Time Delivery Rate 07/10/18 97.4 66 19 194/70 96 11:04 (111) 07/10/18 2.0 10:51 07/10/18 Nasal 08:20 Cannula Intake and Output 07/09/18 07/09/18 07/10/18 1515:00 23:00 07:00 IntakeIntake Total 550 ml 120 ml OutputOutput Total 1103 ml BalanceBalance 550 ml -983 ml Constitutional: alert Psych: no complaints Head: normocephalic Respiratory: crackles/rales Cardiovascular: regular rate and rhythm, systolic murmur Gastrointestinal: soft Results Result Diagram: 07/10/18 0754 07/10/18 0754 Results 24hrs Laboratory Tests Test 07/09/18 17:36 07/09/18 20:55 07/10/18 07:54 07/10/18 08:15 Bedside Glucose 207 188 94 White Blood Count 11.1 H Red Blood Count 3.43 L Hemoglobin 9.6 L Hematocrit 31.5 L Mean Corpuscular 91.8 Volume Mean Corpuscular 28.0 L Hemoglobin Mean Corpuscular 30.5 L Hemoglobin Concent Red Cell 15.0 H Distribution Width Platelet Count 321 Mean Platelet Volume 10.6 H Immature 1.300 H Granulocytes % Neutrophils % 71.2 Lymphocytes % 13.5 L Monocytes % 10.2 Eosinophils % 3.3 Basophils % 0.5 Nucleated Red Blood 0.0 Cells % Immature 0.140 H Granulocytes # Neutrophils # 7.9 H Lymphocytes # 1.5 Monocytes # 1.1 H Eosinophils # 0.4 Basophils # 0.1 Nucleated Red Blood 0.0 Cells # Sodium Level 139 Potassium Level 5.0 Chloride Level 105 Carbon Dioxide Level 32 H Anion Gap 2 L Blood Urea Nitrogen 49 H Creatinine 1.34 H Est Glomerular Filtrat Rate mL/min Glucose Level 64 #L Calcium Level 8.7 B-Type Natriuretic 7860 H Peptide Test 07/10/18 10:20 07/10/18 11:33 Vancomycin Level 10.7 Trough Bedside Glucose 176 Medications Medication Current Medications Atorvastatin Calcium (Lipitor) 40 mg QHS PO Last administered on 07/09/18at 20:24; Admin Dose 40 MG; Start 06/25/18 at 21:00 Docusate Sodium (Colace) 100 mg TID PO Last administered on 07/10/18at 09:11; Admin Dose 100 MG; Start 06/25/18 at 13:00 Miscellaneous Information 1 ea NOTE XX ; Start 06/25/18 at 11:30 Glucose (Glutose) 15 gm Q15M PRN PO DECREASED GLUCOSE; Start 06/25/18 at 11:30 Glucose (Glutose) 22.5 gm Q15M PRN PO DECREASED GLUCOSE; Start 06/25/18 at 11:30 Dextrose (D50w Syringe) 25 ml Q15M PRN IV DECREASED GLUCOSE; Start 06/25/18 at 11:30 Dextrose (D50w Syringe) 50 ml Q15M PRN IV DECREASED GLUCOSE; Start 06/25/18 at 11:30 Glucagon (Glucagen) 1 mg Q15M PRN IM DECREASED GLUCOSE; Start 06/25/18 at 11:30 Glucose (Glutose) 15 gm Q15M PRN BUCCAL DECREASED GLUCOSE; Start 06/25/18 at 11:30 Diagnostic Test (Pha) (Accu-Chek) 1 ea 02 XX Last administered on 07/09/18at 02:17; Admin Dose 1 EA; Start 06/26/18 at 02:00 Ondansetron HCl (Zofran Inj) 4 mg Q4H PRN IV NAUSEA AND/OR VOMITING Last administered on 07/03/18at 19:04; Admin Dose 4 MG; Start 06/28/18 at 01:30 Clonidine (Catapres) 0.1 mg BID PRN PO SBP > 180 Last administered on 06/30/18 23:33; Admin Dose 0.1 MG; Start 06/28/18 at 14:00 Acetaminophen (Tylenol Tab) 650 mg Q4H PRN PO MILD PAIN(1-3)OR ELEVATED TEMP Last administered on 07/07/18 23:48; Admin Dose 650 MG; Start 06/29/18 at 09:30 Gabapentin (Neurontin) 300 mg HS PO Last administered on 07/09/18 20:25; Admin Dose 300 MG; Start 06/29/18 at 21:00 Pantoprazole (Protonix Tab) 40 mg DAILY@06 PO Last administered on 07/10/18 05:16; Admin Dose 40 MG; Start 06/30/18 at 06:00 Miscellaneous Information (Pending Santyl Order For Wound Care) This patient green... PRN PRN XX WOUND CARE; Start 06/30/18 at 08:00 Collagenase (Santyl) 1 applic DAILY TOP Last administered on 07/10/18 09:11; Admin Dose 1 APPLIC; Start 07/02/18 at 09:00 Epoetin Alejo-epbx (Retacrit) 6,000 unit TuThSa@1700 SC Last administered on 07/08/18 17:21; Admin Dose 6,000 UNIT; Start 07/01/18 at 17:00 Lorazepam (Ativan) 0.5 mg Q8H PRN PO ANXIETY; Start 07/01/18 at 16:30 Morphine Sulfate (morphine) 6 mg Q4H PRN PO SEVERE PAIN LEVEL 7-10; Start 07/01/18 at 16:30 Insulin Aspart (Novolog Insulin Pen) NOVOLOG *MODERATE* ALGORITHM WITH MEALS BEDTIME SC Last administered on 07/10/18 11:38; Admin Dose 2 UNIT; Start 07/01/18 at 21:00 Magnesium Hydroxide (Milk Of Mag) 30 ml BID PO Last administered on 07/10/18 09:12; Admin Dose 30 ML; Start 07/02/18 at 09:00 Vancomycin HCl (Vanco Iv Per Pharmacy) VANCOMYCIN PER PHARMACY PER PROTOCOL XX ; Start 07/02/18 at 12:30 Insulin Aspart (Novolog Insulin Pen) 6 unit WITH MEALS SC Last administered on 07/10/18at 11:37; Admin Dose 6 UNIT; Start 07/03/18 at 07:55 Amiodarone HCl (Cordarone) 200 mg DAILY PO Last administered on 07/10/18 09:15; Admin Dose 200 MG; Start 07/04/18 at 09:00 Caspofungin 50 mg/ Sodium Chloride 250 ml @ 250 mls/hr Q24H IVPB Last ad ministered on 07/09/18 15:19; Admin Dose 250 MLS/HR; Start 07/06/18 at 16:00 Meropenem/Sodium Chloride 50 ml @ 100 mls/hr Q12 IVPB Last administered on 07/10/18 09:10; Admin Dose 100 MLS/HR; Start 07/06/18 at 09:00 Vancomycin HCl 250 ml @ 125 mls/hr Q48H IVPB Last administered on 07/10/18 11:26; Admin Dose 125 MLS/HR; Start 07/06/18 at 11:00 Acetaminophen/ Hydrocodone Bitart ([place] (5/325)) 1 tab Q4H PRN PO sever pain Last administered on 07/08/18 21:42; Admin Dose 1 TAB; Start 07/06/18 at 18:00 Insulin Glargine (Lantus) 40 units DAILY SC Last administered on 07/10/18 09:19; Admin Dose 40 UNITS; Start 07/07/18 at 17:00 Apixaban (Eliquis) 2.5 mg BID PO Last administered on 07/10/18 09:11; Admin Dose 2.5 MG; Start 07/08/18 at 21:00 FRANCISCO MARISCAL MD Jul 10, 2018 13:15
[2018-07-10] MEDS: CASPOFUNGIN 50 MG in SOD CHLORIDE 0.9% 250 ML IVPB SCH (16:45)
--- NOTE | 2018-07-10 16:47 | CONS ---
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 -Anticoagulant was on hold secondary to acute blood loss anemia requiring blood transfusion. Aspirin also has been stopped. Hemoglobin has remained stable, given high risk of recurrent thromboembolic events, I restarted her Eliquis on 07/08/2018. Would watch hemoglobin closely -Diuretics as needed -Continue to hold any nephrotoxic medications, patient being followed by nephrology. Consultation Date/Type/Reason Admit Date/Time Jun 25, 2018 at 06:24 Initial Consult Date 06/25/18 Type of Consult Cardiology Requesting Provider: NUBIA TEJEDA MD Date/Time of Note DATE: 07/10/18 TIME: 16:46 24 HR Interval Summary Free Text/Dictation Denies shortness of breath, chest pain Exam/Review of Systems Vital Signs Vitals Vital Signs Date Temp Pulse Resp B/P (MAP) Pulse Ox O2 O2 Flow FiO2 Time Delivery Rate 07/10/18 89 16:24 07/10/18 97.6 19 148/70 93 15:20 (96) 07/10/18 2.0 10:51 07/10/18 Nasal 08:20 Cannula Intake and Output 07/09/18 07/09/18 07/10/18 1515:00 23:00 07:00 IntakeIntake Total 550 ml 120 ml OutputOutput Total 1103 ml BalanceBalance 550 ml -983 ml Exam Exam Sleeping but arousable, follows commands Head: normocephalic Respiratory: other (Coarse breath sounds bilaterally, no wheezing) Cardiovascular: irregular rhythm (S1-S2 heard) Gastrointestinal: soft, non-tender, bowel sounds Extremities: edema Labs Result Diagram: 07/10/18 0754 07/10/18 0754 Results 24hrs Laboratory Tests Test 07/09/18 17:36 07/09/18 20:55 07/10/18 07:54 07/10/18 08:15 Bedside Glucose 207 188 94 White Blood Count 11.1 H Red Blood Count 3.43 L Hemoglobin 9.6 L Hematocrit 31.5 L Mean Corpuscular 91.8 Volume Mean Corpuscular 28.0 L Hemoglobin Mean Corpuscular 30.5 L Hemoglobin Concent Red Cell 15.0 H Distribution Width Platelet Count 321 Mean Platelet Volume 10.6 H Immature 1.300 H Granulocytes % Neutrophils % 71.2 Lymphocytes % 13.5 L Monocytes % 10.2 Eosinophils % 3.3 Basophils % 0.5 Nucleated Red Blood 0.0 Cells % Immature 0.140 H Granulocytes # Neutrophils # 7.9 H Lymphocytes # 1.5 Monocytes # 1.1 H Eosinophils # 0.4 Basophils # 0.1 Nucleated Red Blood 0.0 Cells # Sodium Level 139 Potassium Level 5.0 Chloride Level 105 Carbon Dioxide Level 32 H Anion Gap 2 L Blood Urea Nitrogen 49 H Creatinine 1.34 H Est Glomerular Filtrat Rate mL/min Glucose Level 64 #L Calcium Level 8.7 B-Type Natriuretic 7860 H Peptide Test 07/10/18 10:20 07/10/18 11:33 Vancomycin Level 10.7 Trough Bedside Glucose 176 Medications Medications Current Medications Atorvastatin Calcium (Lipitor) 40 mg QHS PO Last administered on 07/09/18at 20:24; Admin Dose 40 MG; Start 06/25/18 at 21:00 Docusate Sodium (Colace) 100 mg TID PO Last administered on 07/10/18at 09:11; Admin Dose 100 MG; Start 06/25/18 at 13:00 Miscellaneous Information 1 ea NOTE XX ; Start 06/25/18 at 11:30 Glucose (Glutose) 15 gm Q15M PRN PO DECREASED GLUCOSE; Start 06/25/18 at 11:30 Glucose (Glutose) 22.5 gm Q15M PRN PO DECREASED GLUCOSE; Start 06/25/18 at 11:30 Dextrose (D50w Syringe) 25 ml Q15M PRN IV DECREASED GLUCOSE; Start 06/25/18 at 11:30 Dextrose (D50w Syringe) 50 ml Q15M PRN IV DECREASED GLUCOSE; Start 06/25/18 at 11:30 Glucagon (Glucagen) 1 mg Q15M PRN IM DECREASED GLUCOSE; Start 06/25/18 at 11:30 Glucose (Glutose) 15 gm Q15M PRN BUCCAL DECREASED GLUCOSE; Start 06/25/18 at 11:30 Diagnostic Test (Pha) (Accu-Chek) 1 ea 02 XX Last administered on 07/09/18 02:17; Admin Dose 1 EA; Start 06/26/18 at 02:00 Ondansetron HCl (Zofran Inj) 4 mg Q4H PRN IV NAUSEA AND/OR VOMITING Last administered on 07/03/18 19:04; Admin Dose 4 MG; Start 06/28/18 at 01:30 Clonidine (Catapres) 0.1 mg BID PRN PO SBP > 180 Last administered on 06/30/18 23:33; Admin Dose 0.1 MG; Start 06/28/18 at 14:00 Acetaminophen (Tylenol Tab) 650 mg Q4H PRN PO MILD PAIN(1-3)OR ELEVATED TEMP Last administered on 07/07/18 23:48; Admin Dose 650 MG; Start 06/29/18 at 09:30 Gabapentin (Neurontin) 300 mg HS PO Last administered on 07/09/18 20:25; Admin Dose 300 MG; Start 06/29/18 at 21:00 Pantoprazole (Protonix Tab) 40 mg DAILY@06 PO Last administered on 07/10/18 05:16; Admin Dose 40 MG; Start 06/30/18 at 06:00 Miscellaneous Information (Pending Santyl Order For Wound Care) This patient green... PRN PRN XX WOUND CARE; Start 06/30/18 at 08:00 Collagenase (Santyl) 1 applic DAILY TOP Last administered on 07/10/18 09:11; Admin Dose 1 APPLIC; Start 07/02/18 at 09:00 Epoetin Alejo-epbx (Retacrit) 6,000 unit TuThSa@1700 SC Last administered on 07/08/18 17:21; Admin Dose 6,000 UNIT; Start 07/01/18 at 17:00 Lorazepam (Ativan) 0.5 mg Q8H PRN PO ANXIETY; Start 07/01/18 at 16:30 Morphine Sulfate (morphine) 6 mg Q4H PRN PO SEVERE PAIN LEVEL 7-10; Start 07/01/18 at 16:30 Insulin Aspart (Novolog Insulin Pen) NOVOLOG *MODERATE* ALGORITHM WITH MEALS BEDTIME SC Last administered on 07/10/18 11:38; Admin Dose 2 UNIT; Start 07/01/18 at 21:00 Magnesium Hydroxide (Milk Of Mag) 30 ml BID PO Last administered on 07/10/18 09:12; Admin Dose 30 ML; Start 07/02/18 at 09:00 Vancomycin HCl (Vanco Iv Per Pharmacy) VANCOMYCIN PER PHARMACY PER PROTOCOL XX ; Start 07/02/18 at 12:30 Insulin Aspart (Novolog Insulin Pen) 6 unit WITH MEALS SC Last administered on 07/10/18 11:37; Admin Dose 6 UNIT; Start 07/03/18 at 07:55 Amiodarone HCl (Cordarone) 200 mg DAILY PO Last administered on 07/10/18 09:15; Admin Dose 200 MG; Start 07/04/18 at 09:00 Caspofungin 50 mg/ Sodium Chloride 250 ml @ 250 mls/hr Q24H IVPB Last administered on 07/09/18 15:19; Admin Dose 250 MLS/HR; Start 07/06/18 at 16:00 Meropenem/Sodium Chloride 50 ml @ 100 mls/hr Q12 IVPB Last administered on 07/10/18 09:10; Admin Dose 100 MLS/HR; Start 07/06/18 at 09:00 Vancomycin HCl 250 ml @ 125 mls/hr Q48H IVPB Last administered on 07/10/18 11:26; Admin Dose 125 MLS/HR; Start 07/06/18 at 11:00 Acetaminophen/ Hydrocodone Bitart ([place] (5/325)) 1 tab Q4H PRN PO sever pain Last administered on 07/08/18at 21:42; Admin Dose 1 TAB; Start 07/06/18 at 18:00 Insulin Glargine (Lantus) 40 units DAILY SC Last administered on 07/10/18 09:19; Admin Dose 40 UNITS; Start 07/07/18 at 17:00 Apixaban (Eliquis) 2.5 mg BID PO Last administered on 07/10/18 09:11; Admin Dose 2.5 MG; Start 07/08/18 at 21:00 Alex Chávez DO Jul 10, 2018 16:47
[2018-07-10] MEDS: EPOETIN ALFA-EPBX (NON-ESRD) 3,000 UNIT/ML VIAL SC SCH (17:15)
[2018-07-10] MEDS: GABAPENTIN 300 MG CAP PO SCH (20:13)
[2018-07-10] MEDS: ATORVASTATIN 40 MG TAB PO SCH (20:13)
[2018-07-10] MEDS: HYDROCODONE/APAP (5/325) TAB PO PRN (20:14)
--- NOTE | 2018-07-10 21:55 | OPR ---
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 None Anesthesia Type: general Estimated Blood Loss: minimal Transfusion none Specimen Right and left temporal artery Grafts/Implants none Complications none Disposition: PACU Procedure Description Patient was placed in supine position prepped and draped in usual sterile fashion timeout was called antibiotics was given I made bilateral temporal artery incisions about a centimeter in length incisions were taken down to subcutaneous tissue which was then opened using a Metzenbaum scissors electrocautery was not used temporal artery was identified bilaterally about a centimeter of it was clipped sent for pathological examination the wounds were irrigated and closed in 2 layers of 2-0 Vicryl suture for the deep and 3-0 Vicryl suture for running subcuticular skin closure with Steri-Strips patient tolerated procedure well KELLEY GARY MD Jul 10, 2018 21:54
[2018-07-11] VITALS (9 sets, daily range): BP systolic 128–152; BP diastolic 57–78; PULSE 74–103; RESP 18–19
[2018-07-11] MEDS: ACCU-CHEK XX SCH (02:50)
[2018-07-11] MEDS: PANTOPRAZOLE (EC) 40 MG TAB PO SCH (05:58)
[2018-07-11] MEDS: INSULIN ASPART [NOVOLOG] 3 ML PEN SC SCH ×6 (07:55→17:31)
[2018-07-11] MEDS: DOCUSATE SODIUM 100 MG CAP PO SCH ×2 (08:05→13:00)
[2018-07-11] MEDS: MAGNESIUM HYDROXIDE 30ML CUP PO SCH (08:06)
[2018-07-11] MEDS: APIXABAN 5 MG TABLET PO SCH (08:48)
[2018-07-11] MEDS: COLLAGENASE 5 GM (UD JAR) TOP SCH (08:48)
[2018-07-11] MEDS: AMIODARONE 200 MG TAB PO SCH (08:49)
[2018-07-11] MEDS: MEROPENEM 500MG/50 ML (PMX) 50 ML IVPB SCH (08:50)
[2018-07-11] MEDS: HYDROCODONE/APAP (5/325) TAB PO PRN ×2 (08:50→15:23)
[2018-07-11] MEDS: BALSAM PERU/CASTOR OIL 60 GM TUBE TOP SCH (08:50)
[2018-07-11] MEDS: INSULIN GLARGINE [LANTus] (100 UNITS/ML) SYG SC SCH (09:00)
--- NOTE | 2018-07-11 10:02 | PN ---
DATE: 07/11/2018 SUBJECTIVE: This is a patient who was admitted for acute pain of the lower extremities, thrombus of the left lower extremity and with congestive heart failure, atrial fibrillation, renal cancer, type 2 diabetes, chronic kidney disease. The patient was admitted, had thrombectomy done by Dr. Dawson, was put on anticoagulation medication, tolerated it initially well. Gradually increase her BUN and creatinine levels and altered level a little bit and then we stopped the anticoagulation treatment du e to a drop in hemoglobin and hematocrit and bleeding. She tolerated it well. She started feeling b wanda and white count gradually going down and IV antibiotics. The patient is tolerating it well tovenice dalton. OBJECTIVE: VITAL SIGNS: Blood pressure is 130/70, heart rate 88, respiratory rate 18, and she is afebrile. HEENT: Atraumatic, normocephalic. Pupils are equal and reactive to light. Extraocular muscles are intact. The patient has no complaints at this time. She feels much better, a little nauseated, abdominal massimo n and lower back pain. Otherwise on no other complaints. PHYSICAL EXAMINATION: CHEST: AP contour within normal limits. Breasts and nipples are normal, no nipple retraction. HEART: S1, S2, regular rate and rhythm with a systolic murmur over the apex and extra systoles. LUNGS: Very mild crackles over the bases of the lungs, otherwise negative. ABDOMEN: Soft, positive bowel sounds, no hepatosplenomegaly, no masses palpable over the abdomen and no rebound tenderness. EXTREMITIES: No edema, clubbing or cyanosis of the extremities. Pulses are palpable but decreased o cathy the lower extremities, inguinal area tenderness over the inguinal area where there is a hematoma, otherwise negative. LABORATORY DATA: Chemistry: BUN is 49, creatinine is 1.34. White count is almost normal 11.1, hemo globin 9.6, hematocrit 31.5 and the platelet count 321. Cultures as I mentioned yesterday, positive for renetta. Urine cultures being treated for it also. ASSESSMENT AND PLAN: I advised the family and the patient to be transferred to [facility] for continuation of few more days of antibiotics. I advised family independence case manager to discuss with the ishaan tom also but at the end of the day, the family refused to go to snf facility. They want ed acute rehab, so per manager of caseconcert or lecture hall manager was put in for acute rehabilitation, if patient will be adm itted to acute rehabilitation, she will be transferred to acute rehabilitation. Dictated By: NUBIA TEJEDA MD SB/NTS Conf#: [id number] DID#: [id number] CC: NUBIA TEJEDA MD; ERIK CHILDERS MD; ERNESTO MCGARRY MD;*EndCC*
--- NOTE | 2018-07-11 10:10 | PN ---
DATE: 07/11/2018 SUBJECTIVE: An 82-year-old female who was admitted for acute thrombus of the left lower extremity, s tatus post thrombectomy, acute renal failure on chronic kidney disease, type 2 diabetes mellitus, unc ontrolled, congestive heart failure, atrial fibrillation on anticoagulation, not tolerating coags or anticoagulation, bleeding since, therefore, anticoagulation stopped. The patient is now tolerating t he treatments well. IV antibiotics and working on rehab. OBJECTIVE: VITAL SIGNS: Blood pressure today is 152/67, heart rate is 81, respiratory rate 18, and she is afebr ile, temperature of 99.8. GENERAL: The patient is alert and oriented x3. She is just waking up in the morning. She is eating her breakfast. She has no complaints. No chest pain, no shortness of breath, no abdominal pain, ju st has back pain a little bit, but no numbness out of the ordinary of the extremities. HEENT: Atraumatic, normocephalic. Pupils are equal and reactive to light. Extraocular muscles are intact. Nares are clear, no obstruction, no deviation of the septum. Oral cavity normal oral hygien e. Ear canals are clear, no signs of inflammation or infection. CHEST: AP contour is within normal limits. Breasts and nipples are normal, no nipple retraction. HEART: S1, S2, atrial fibrillation, controlled rate with cardiomegaly. LUNGS: Scattered rhonchi over the lungs with very mild over the bases, otherwise negative. Poor eff ort. ABDOMEN: Soft, positive bowel sounds, no hepatosplenomegaly, no masses palpable over the abdomen and no rebound tenderness. EXTREMITIES: No edema, clubbing or cyanosis of the extremities. Pulses are palpable, diminished ove r the lower extremities a little bit but palpable. LABORATORY DATA: Today CBC: White blood cells 15.0, hemoglobin 9.0, hematocrit 29.7 and platelet co unt 402. Chemistry today, sodium is 139, potassium 5.0, BUN is 49, creatinine 1.34 and BMP is 7860. PLAN: The patient is awaiting for physical therapy for acute rehab transfer. Tolerating medications and treatments here. We will encourage increased getting up out of bed, breathing treatments and ph ysical therapy at this time to prevent further complications, discussed with the family, discussed wi th the nurse and caseworker protective services and will follow. Hopefully, the patient will be transferred to acute rehabilitation. Dictated By: NUBIA TEJEDA MD SB/JAYDEN Conf#: [id number] DID#: [id number] CC: ERIK CHILDERS MD; NUBIA TEJEDA MD; ERNESTO MCGARRY MD;*EndCC*
--- NOTE | 2018-07-11 13:01 | CONS ---
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 -Anticoagulant was on hold secondary to acute blood loss anemia requiring blood transfusion. Aspirin also has been stopped. Hemoglobin has remained stable, given high risk of recurrent thromboembolic events, Eliquis was restarted on 07/08/2018. Would watch hemoglobin closely -Diuretics as needed -Continue to hold any nephrotoxic medications, patient being followed by nephrology. -Patient with leukocytosis, left leg is more tender today, ID and vascular follow-up Consultation Date/Type/Reason Admit Date/Time Jun 25, 2018 at 06:24 Initial Consult Date 06/25/18 Type of Consult Cardiology Requesting Provider: NUBIA TEJEDA MD Date/Time of Note DATE: 07/11/18 TIME: 13:00 24 HR Interval Summary Free Text/Dictation Denies shortness of breath, chest pain, still with leg pain Exam/Review of Systems Vital Signs Vitals Vital Signs Date Temp Pulse Resp B/P (MAP) Pulse Ox O2 O2 Flow FiO2 Time Delivery Rate 07/11/18 99.3 86 19 128/68 97 12:02 (88) 07/11/18 Nasal 04:00 Cannula 07/11/18 2.0 02:12 Intake and Output 07/10/18 07/10/18 07/11/18 1515:00 23:00 07:00 IntakeIntake Total 450 ml OutputOutput Total 350 ml BalanceBalance 100 ml Exam Constitutional: alert (Eating food, family at bedside, no apparent distress) Head: normocephalic Respiratory: other (Coarse breath sounds bilaterally, no wheezing) Cardiovascular: regular rate and rhythm (S1-S2 heard) Gastrointestinal: soft, non-tender, bowel sounds Extremities: other (Edema left more than right lower extremity.) Labs Result Diagram: 07/11/18 0738 07/11/18 0738 Results 24hrs Laboratory Tests Test 07/10/18 17:08 07/10/18 22:32 07/11/18 07:38 07/11/18 08:48 Bedside Glucose 119 141 66 L White Blood Count 15.0 #H Red Blood Count 3.29 L Hemoglobin 9.0 L Hematocrit 29.7 L Mean Corpuscular 90.3 Volume Mean Corpuscular 27.4 L Hemoglobin Mean Corpuscular 30.3 L Hemoglobin Concent Red Cell 15.2 H Distribution Width Platelet Count 402 # Mean Platelet Volume 9.8 Immature 0.900 H Granulocytes % Neutrophils % 77.6 H Lymphocytes % 11.1 L Monocytes % 8.6 Eosinophils % 1.5 Basophils % 0.3 Nucleated Red Blood 0.1 H Cells % Immature 0.140 H Granulocytes # Neutrophils # 11.6 H Lymphocytes # 1.7 Monocytes # 1.3 H Eosinophils # 0.2 Basophils # 0.1 Nucleated Red Blood 0.0 Cells # Sodium Level 138 Potassium Level 4.8 Chloride Level 102 Carbon Dioxide Level 33 H Anion Gap 3 L Blood Urea Nitrogen 47 H Creatinine 1.40 H Est Glomerular Filtrat Rate mL/min Glucose Level 61 L Calcium Level 8.7 B-Type Natriuretic 7180 H Peptide Test 07/11/18 09:11 07/11/18 12:19 Bedside Glucose 79 176 Medications Medications Current Medications Atorvastatin Calcium (Lipitor) 40 mg QHS PO Last administered on 07/10/18at 20:13; Admin Dose 40 MG; Start 06/25/18 at 21:00 Docusate Sodium (Colace) 100 mg TID PO Last administered on 07/10/18at 09:11; Admin Dose 100 MG; Start 06/25/18 at 13:00 Miscellaneous Information 1 ea NOTE XX ; Start 06/25/18 at 11:30 Glucose (Glutose) 15 gm Q15M PRN PO DECREASED GLUCOSE; Start 06/25/18 at 11:30 Glucose (Glutose) 22.5 gm Q15M PRN PO DECREASED GLUCOSE; Start 06/25/18 at 11:30 Dextrose (D50w Syringe) 25 ml Q15M PRN IV DECREASED GLUCOSE; Start 06/25/18 at 11:30 Dextrose (D50w Syringe) 50 ml Q15M PRN IV DECREASED GLUCOSE; Start 06/25/18 at 11:30 Glucagon (Glucagen) 1 mg Q15M PRN IM DECREASED GLUCOSE; Start 06/25/18 at 11:30 Glucose (Glutose) 15 gm Q15M PRN BUCCAL DECREASED GLUCOSE; Start 06/25/18 at 11:30 Diagnostic Test (Pha) (Accu-Chek) 1 ea 02 XX Last administered on 07/09/18 02:17; Admin Dose 1 EA; Start 06/26/18 at 02:00 Ondansetron HCl (Zofran Inj) 4 mg Q4H PRN IV NAUSEA AND/OR VOMITING Last administered on 07/03/18 19:04; Admin Dose 4 MG; Start 06/28/18 at 01:30 Clonidine (Catapres) 0.1 mg BID PRN PO SBP > 180 Last administered on 06/30/18 23:33; Admin Dose 0.1 MG; Start 06/28/18 at 14:00 Acetaminophen (Tylenol Tab) 650 mg Q4H PRN PO MILD PAIN(1-3)OR ELEVATED TEMP Last administered on 07/07/18 23:48; Admin Dose 650 MG; Start 06/29/18 at 09:30 Gabapentin (Neurontin) 300 mg HS PO Last administered on 07/10/18 20:13; Admin Dose 300 MG; Start 06/29/18 at 21:00 Pantoprazole (Protonix Tab) 40 mg DAILY@06 PO Last administered on 07/11/18 05:58; Admin Dose 40 MG; Start 06/30/18 at 06:00 Miscellaneous Information (Pending Santyl Order For Wound Care) This patient green... PRN PRN XX WOUND CARE; Start 06/30/18 at 08:00 Collagenase (Santyl) 1 applic DAILY TOP Last administered on 07/11/18 08:48; Admin Dose 1 APPLIC; Start 07/02/18 at 09:00 Epoetin Alejo-epbx (Retacrit) 6,000 unit TuThSa@1700 SC Last administered on 07/10/18 17:15; Admin Dose 6,000 UNIT; Start 07/01/18 at 17:00 Lorazepam (Ativan) 0.5 mg Q8H PRN PO ANXIETY; Start 07/01/18 at 16:30 Morphine Sulfate (morphine) 6 mg Q4H PRN PO SEVERE PAIN LEVEL 7-10; Start 07/01/18 at 16:30 Insulin Aspart (Novolog Insulin Pen) NOVOLOG *MODERATE* ALGORITHM WITH MEALS BEDTIME SC Last administered on 07/11/18 12:24; Admin Dose 2 UNIT; Start 07/01/18 at 21:00 Vancomycin HCl (Vanco Iv Per Pharmacy) VANCOMYCIN PER PHARMACY PER PROTOCOL XX ; Start 07/02/18 at 12:30 Insulin Aspart (Novolog Insulin Pen) 6 unit WITH MEALS SC Last administered on 07/11/18 12:24; Admin Dose 6 UNIT; Start 07/03/18 at 07:55 Amiodarone HCl (Cordarone) 200 mg DAILY PO Last administered on 07/11/18 08:49; Admin Dose 200 MG; Start 07/04/18 at 09:00 Caspofungin 50 mg/ Sodium Chloride 250 ml @ 250 mls/hr Q24H IVPB Last administered on 07/10/18 16:45; Admin Dose 250 MLS/HR; Start 07/06/18 at 16:00 Meropenem/Sodium Chloride 50 ml @ 100 mls/hr Q12 IVPB Last administered on 07/11/18 08:50; Admin Dose 100 MLS/HR; Start 07/06/18 at 09:00 Vancomycin HCl 250 ml @ 125 mls/hr Q48H IVPB Last administered on 07/10/18 11:26; Admin Dose 125 MLS/HR; Start 07/06/18 at 11:00 Acetaminophen/ Hydrocodone Bitart ([place] (5/325)) 1 tab Q4H PRN PO sever pain Last administered on 07/11/18 08:50; Admin Dose 1 TAB; Start 07/06/18 at 18:00 Apixaban (Eliquis) 2.5 mg BID PO Last administered on 07/11/18 08:48; Admin Dose 2.5 MG; Start 07/08/18 at 21:00 Insulin Glargine (Lantus) 30 units 0900 SC ; Start 07/12/18 at 09:00 Alex Chávez DO Jul 11, 2018 13:01
--- NOTE | 2018-07-11 13:07 | CONS ---
Assessment/Plan Assessment/Plan Hospital Course (Demo Recall) Alert eating lunch, daughter at bedside, patient has low-grade fever of 100.4 this morning. Left lower extremity with edema and some drainage also pain. WBC today 15 platelets 402 neutrophils 77.6 BUN 47 creatinine 1.4 Microbiology: Urine culture growing Carmella species, not albicans Diagnostics: Ultrasound of left lower extremity revealed 5 cm depressed containing collection in the superficial soft tissue of the left inguinal region finding could reflect hematoma possible abscess. Please see full report in the chart. CT abdomen and pelvis from yesterday revealed distended urinary bladder with mild bilateral hydronephrosis without evidence of obstructing renal stone. Stable postsurgical changes of partial left nephrectomy. 4.4 x 2.5 cm lobulated region of soft tissue density with small foci of air surrounding stranding in the left groin adjacent to the left femoral artery. Please see full report in the chart Antimicrobials: Cancidas Merrem Vancomycin Physical examination: This is obese well-developed [place] woman who is in no distress. Head atraumatic normocephalic sclera nonicteric. Neck is supple. Chest rise symmetrical breath sounds clear, diminished bases. Heart: S1-S2. Abdomen soft, bowel sounds present. Extremities without cyanosis. Left lower extremity dressing intact Assessment: 1. Systemic inflammatory response syndrome with leukocytosis==> resolving 2. Left groin hematoma versus abscess 3. Urinary tract infection 4. Urinary retention, s/p Odonnell 5. Occlusive left common femoral artery status post thrombectomy 6. Coronary artery disease, history of CABG 7. Paroxysmal atrial fibrillation 8. Diabetes 9. Abnormal 2D echo, rule out vegetations versus thrombus versus tumor on the right atrium 10. History of renal cell carcinoma status post partial nephrectomy Plan: Clinically stable, will check CXR, continue abx DW daughter at bedside Consultation Date/Type/Reason Admit Date/Time Jun 25, 2018 at 06:24 Initial Consult Date 06/26/18 Type of Consult id Requesting Provider: NUBIA TEJEDA MD Date/Time of Note DATE: 07/11/18 TIME: 13:06 Exam/Review of Systems Exam Vitals Vital Signs Date Temp Pulse Resp B/P (MAP) Pulse Ox O2 O2 Flow FiO2 Time Delivery Rate 07/11/18 99.3 86 19 128/68 97 12:02 (88) 07/11/18 Nasal 04:00 Cannula 07/11/18 2.0 02:12 Intake and Output 07/10/18 07/10/18 07/11/18 1414:59 22:59 06:59 IntakeIntake Total 450 ml OutputOutput Total 350 ml BalanceBalance 100 ml Results Result Diagram: 07/11/18 0738 07/11/18 0738 Results 24hrs Laboratory Tests Test 07/10/18 17:08 07/10/18 22:32 07/11/18 07:38 07/11/18 08:48 Bedside Glucose 119 141 66 L White Blood Count 15.0 #H Red Blood Count 3.29 L Hemoglobin 9.0 L Hematocrit 29.7 L Mean Corpuscular 90.3 Volume Mean Corpuscular 27.4 L Hemoglobin Mean Corpuscular 30.3 L Hemoglobin Concent Red Cell 15.2 H Distribution Width Platelet Count 402 # Mean Platelet Volume 9.8 Immature 0.900 H Granulocytes % Neutrophils % 77.6 H Lymphocytes % 11.1 L Monocytes % 8.6 Eosinophils % 1.5 Basophils % 0.3 Nucleated Red Blood 0.1 H Cells % Immature 0.140 H Granulocytes # Neutrophils # 11.6 H Lymphocytes # 1.7 Monocytes # 1.3 H Eosinophils # 0.2 Basophils # 0.1 Nucleated Red Blood 0.0 Cells # Sodium Level 138 Potassium Level 4.8 Chloride Level 102 Carbon Dioxide Level 33 H Anion Gap 3 L Blood Urea Nitrogen 47 H Creatinine 1.40 H Est Glomerular Filtrat Rate mL/min Glucose Level 61 L Calcium Level 8.7 B-Type Natriuretic 7180 H Peptide Test 07/11/18 09:11 07/11/18 12:19 Bedside Glucose 79 176 Medications Medication Current Medications Atorvastatin Calcium (Lipitor) 40 mg QHS PO Last administered on 07/10/18at 20:13; Admin Dose 40 MG; Start 06/25/18 at 21:00 Docusate Sodium (Colace) 100 mg TID PO Last administered on 07/10/18at 09:11; Admin Dose 100 MG; Start 06/25/18 at 13:00 Miscellaneous Information 1 ea NOTE XX ; Start 06/25/18 at 11:30 Glucose (Glutose) 15 gm Q15M PRN PO DECREASED GLUCOSE; Start 06/25/18 at 11:30 Glucose (Glutose) 22.5 gm Q15M PRN PO DECREASED GLUCOSE; Start 06/25/18 at 11:30 Dextrose (D50w Syringe) 25 ml Q15M PRN IV DECREASED GLUCOSE; Start 06/25/18 at 11:30 Dextrose (D50w Syringe) 50 ml Q15M PRN IV DECREASED GLUCOSE; Start 06/25/18 at 11:30 Glucagon (Glucagen) 1 mg Q15M PRN IM DECREASED GLUCOSE; Start 06/25/18 at 11:30 Glucose (Glutose) 15 gm Q15M PRN BUCCAL DECREASED GLUCOSE; Start 06/25/18 at 11:30 Diagnostic Test (Pha) (Accu-Chek) 1 ea 02 XX Last administered on 07/09/18 02:17; Admin Dose 1 EA; Start 06/26/18 at 02:00 Ondansetron HCl (Zofran Inj) 4 mg Q4H PRN IV NAUSEA AND/OR VOMITING Last administered on 07/03/18 19:04; Admin Dose 4 MG; Start 06/28/18 at 01:30 Clonidine (Catapres) 0.1 mg BID PRN PO SBP > 180 Last administered on 06/30/18 23:33; Admin Dose 0.1 MG; Start 06/28/18 at 14:00 Acetaminophen (Tylenol Tab) 650 mg Q4H PRN PO MILD PAIN(1-3)OR ELEVATED TEMP Last administered on 07/07/18 23:48; Admin Dose 650 MG; Start 06/29/18 at 09:30 Gabapentin (Neurontin) 300 mg HS PO Last administered on 07/10/18 20:13; Admin Dose 300 MG; Start 06/29/18 at 21:00 Pantoprazole (Protonix Tab) 40 mg DAILY@06 PO Last administered on 07/11/18 05:58; Admin Dose 40 MG; Start 06/30/18 at 06:00 Miscellaneous Information (Pending Santyl Order For Wound Care) This patient green... PRN PRN XX WOUND CARE; Start 06/30/18 at 08:00 Collagenase (Santyl) 1 applic DAILY TOP Last administered on 07/11/18 08:48; Admin Dose 1 APPLIC; Start 07/02/18 at 09:00 Epoetin Alejo-epbx (Retacrit) 6,000 unit TuThSa@1700 SC Last administered on 4/11/19at 17:15; Admin Dose 6,000 UNIT; Start 07/01/18 at 17:00 Lorazepam (Ativan) 0.5 mg Q8H PRN PO ANXIETY; Start 07/01/18 at 16:30 Morphine Sulfate (morphine) 6 mg Q4H PRN PO SEVERE PAIN LEVEL 7-10; Start 07/01/18 at 16:30 Insulin Aspart (Novolog Insulin Pen) NOVOLOG *MODERATE* ALGORITHM WITH MEALS BEDTIME SC Last administered on 07/11/18 12:24; Admin Dose 2 UNIT; Start 07/01/18 at 21:00 Vancomycin HCl (Vanco Iv Per Pharmacy) VANCOMYCIN PER PHARMACY PER PROTOCOL XX ; Start 07/02/18 at 12:30 Insulin Aspart (Novolog Insulin Pen) 6 unit WITH MEALS SC Last administered on 07/11/18 12:24; Admin Dose 6 UNIT; Start 07/03/18 at 07:55 Amiodarone HCl (Cordarone) 200 mg DAILY PO Last administered on 07/11/18at 08:49; Admin Dose 200 MG; Start 07/04/18 at 09:00 Caspofungin 50 mg/ Sodium Chloride 250 ml @ 250 mls/hr Q24H IVPB Last administered on 07/10/18at 16:45; Admin Dose 250 MLS/HR; Start 07/06/18 at 16:00 Meropenem/Sodium Chloride 50 ml @ 100 mls/hr Q12 IVPB Last administered on 07/11/18 08:50; Admin Dose 100 MLS/HR; Start 07/06/18 at 09:00 Vancomycin HCl 250 ml @ 125 mls/hr Q48H IVPB Last administered on 07/10/18at 11:26; Admin Dose 125 MLS/HR; Start 07/06/18 at 11:00 Acetaminophen/ Hydrocodone Bitart ([place] (5/325)) 1 tab Q4H PRN PO sever pain Last administered on 07/11/18 08:50; Admin Dose 1 TAB; Start 07/06/18 at 18:00 Apixaban (Eliquis) 2.5 mg BID PO Last administered on 07/11/18 08:48; Admin Dose 2.5 MG; Start 07/08/18 at 21:00 Insulin Glargine (Lantus) 30 units 0900 SC ; Start 07/12/18 at 09:00 BARBARA ORDAZ NP Jul 11, 2018 13:07
[2018-07-11] MEDS: CASPOFUNGIN 50 MG in SOD CHLORIDE 0.9% 250 ML IVPB SCH (15:23)
[2018-07-12] MEDS ORDERED: INSULIN GLARGINE [LANTus] (100 UNITS/ML) SYG SC SCH (09:00)
--- NOTE | 2018-07-12 09:18 | CONS ---
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 -Anticoagulant was on hold secondary to acute blood loss anemia requiring blood transfusion. Aspirin also has been stopped. Hemoglobin has remained stable, given high risk of recurrent thromboembolic events, Eliquis was restarted on 07/08/2018. Would watch hemoglobin closely -Diuretics as needed -Continue to hold any nephrotoxic medications, patient being followed by nephrology. -Patient with leukocytosis. ID and vascular follow-up Consultation Date/Type/Reason Admit Date/Time Jun 25, 2018 at 06:24 Initial Consult Date 06/26/18 Type of Consult Cardiology Requesting Provider: NUBIA TEJEDA MD Date/Time of Note DATE: 07/12/18 TIME: 09:17 24 HR Interval Summary Free Text/Dictation The patient with no change Exam/Review of Systems Vital Signs Vitals Vital Signs Date Temp Pulse Resp B/P (MAP) Pulse Ox O2 O2 Flow FiO2 Time Delivery Rate 07/11/18 2.0 17:51 07/11/18 99.2 96 19 131/69 98 17:25 (89) 07/11/18 Nasal 08:08 Cannula Intake and Output 07/11/18 07/11/18 07/12/18 1515:00 23:00 07:00 IntakeIntake Total 240 ml 1030 ml OutputOutput Total 650 ml 600 ml BalanceBalance -410 ml 430 ml Labs Result Diagram: 07/11/18 0738 07/11/18 0738 Results 24hrs Laboratory Tests Test 07/11/18 12:19 07/11/18 17:26 Bedside Glucose 176 226 H YSABEL POZO MD Jul 12, 2018 09:18
== END 2018-07-11 19:20 | DRG 252 ==
LOC: E/R 00:31 → 6WM 06:24 → EDBEDREQ 07:02 → ICU 06-27 20:25 → TEL 06-28 16:58
PROVIDERS: ADMIT Internal Medicine; ATTEND Family Medicine
PROC: 04JY0ZZ Inspection of Lower Artery, Open Approach (ICD-10-PCS; 2018-06-27)
PROC: 04CL0ZZ Extirpation of Matter from Left Femoral Artery, Open Approach (ICD-10-PCS; principal; 2018-06-27 13:00)
PROC: 30233N1 Transfusion of Nonautologous Red Blood Cells into Peripheral Vein, Percutaneous Approach (ICD-10-PCS; 2018-06-29)
PROC: 0T9B70Z Drainage of Bladder with Drainage Device, Via Natural or Artificial Opening (ICD-10-PCS; 2018-07-05)
DX: I74.3 Embolism and thrombosis of arteries of the lower extremities (principal); I50.23 Acute on chronic systolic (congestive) heart failure; A41.9 Sepsis, unspecified organism; N17.9 Acute kidney failure, unspecified; I13.0 Hypertensive heart and chronic kidney disease with heart failure and stage 1 through stage 4 chronic kidney disease, or unspecified chronic kidney disease; C64.2 Malignant neoplasm of left kidney, except renal pelvis; I42.9 Cardiomyopathy, unspecified; N13.6 Pyonephrosis; B37.49 Other urogenital candidiasis; D62 Acute posthemorrhagic anemia; D68.32 Hemorrhagic disorder due to extrinsic circulating anticoagulants; D35.02 Benign neoplasm of left adrenal gland; E11.22 Type 2 diabetes mellitus with diabetic chronic kidney disease; E11.40 Type 2 diabetes mellitus with diabetic neuropathy, unspecified; E11.21 Type 2 diabetes mellitus with diabetic nephropathy; E11.51 Type 2 diabetes mellitus with diabetic peripheral angiopathy without gangrene; E11.65 Type 2 diabetes mellitus with hyperglycemia; E87.5 Hyperkalemia; E66.9 Obesity, unspecified; G30.9 Alzheimer's disease, unspecified; I70.203 Unspecified atherosclerosis of native arteries of extremities, bilateral legs; I25.10 Atherosclerotic heart disease of native coronary artery without angina pectoris; I48.0 Paroxysmal atrial fibrillation; K21.9 Gastro-esophageal reflux disease without esophagitis; K59.00 Constipation, unspecified; M79.81 Nontraumatic hematoma of soft tissue; M19.90 Unspecified osteoarthritis, unspecified site; N18.9 Chronic kidney disease, unspecified; R33.9 Retention of urine, unspecified; R53.1 Weakness; T45.515A Adverse effect of anticoagulants, initial encounter; Z68.31 Body mass index [BMI] 31.0-31.9, adult; Z95.1 Presence of aortocoronary bypass graft; Z79.4 Long term (current) use of insulin; Z79.82 Long term (current) use of aspirin
CPT/HCPCS: 36415; 36430; 36600; 71045; 74176; 80048; 80053; 80061; 80202; 81001; 81003; 82803; 82962; 83036; 83540; 83605; 83735; 83880; 84155; 84484; 84560; 85025; 85610; 85730; 86850; 86900; 86901; 86920; 87081; 87086; 88304; 89190; 90686; 92526; 92610; 93005; 93308; 93971; 93976; 96365; 96367; 96375; 97110; 97162; 97530; C9113; J0360; J0456; J0610; J0690; J0696; J0885; J0886; J1170; J1644; J1815; J1940; J2185; J2270; J2405; J2710; J3010; J3370; J3475; J7030; J7042; J7050; P9016; Q5105; Q9967

== ENCOUNTER 2018-07-11 18:02 | Inpatient (IN) | payer MEDICARE, OTHER ==
[~2018-07-11] VITALS: Ht 152.4 cm; Wt 75.2 kg
[~2018-07-11 18:02] MED LIST changes: -ALEN70TA5 PO; -ATEN-51 PO; -ATOR40TA68 PO; -CALC1TAB93 PO; -CEPH250C PO; +CLON-379 PO; -ERGO2000 PO; +FURO20TA3 PO; -GABA100C14 PO; -MELO7.5T38 PO; -METF-849 PO
[2018-07-11 19:45] VITALS: Ht 152.4 cm; Wt 75.2 kg
[2018-07-11 20:00] VITALS: BP 145/67; PULSE 78; RESP 18
[2018-07-11] MEDS ORDERED: BISACODYL 10 MG SUPP PR PRN (20:00)
[2018-07-11] MEDS ORDERED: LACTULOSE 30ML CUP PO PRN (20:00)
[2018-07-11] MEDS ORDERED: MAGNESIUM HYDROXIDE 30ML CUP PO PRN (20:00)
[2018-07-11] MEDS ORDERED: DOCUSATE SODIUM 100 MG CAP PO SCH (21:00)
[2018-07-11] MEDS ORDERED: morphine LIQ (10 MG/5 ML) CUP PO PRN (21:30)
[2018-07-11] MEDS ORDERED: ACETAMINOPHEN 325 MG TAB PO PRN (21:30)
[2018-07-11] MEDS ORDERED: PENDING SANTYL ORDER FOR WOUND CARE XX PRN (21:30)
[2018-07-11] MEDS: SENNA TAB PO SCH (21:35)
[2018-07-11] MEDS: DOCUSATE SODIUM 100 MG CAP PO SCH (21:35)
[2018-07-11] MEDS: ATORVASTATIN 40 MG TAB PO SCH (21:36)
[2018-07-11] MEDS: APIXABAN 5 MG TABLET PO SCH (21:36)
[2018-07-11] MEDS: GABAPENTIN 300 MG CAP PO SCH (21:36)
[2018-07-11] MEDS: INSULIN ASPART [NOVOLOG] 3 ML PEN SC SCH (21:44)
[2018-07-11] MEDS ORDERED: GLUCAGON 1 MG INJ IM PRN (22:00)
[2018-07-11] MEDS ORDERED: VANCOMYCIN IV PER PHARMACY XX SCH (22:00)
[2018-07-11] MEDS ORDERED: GLUCOSE GEL 15 GRAM TUBE PO PRN ×2 (22:00)
[2018-07-11] MEDS ORDERED: GLUCOSE GEL 15 GRAM TUBE BUCCAL PRN (22:00)
[2018-07-11] MEDS ORDERED: DEXTROSE 50% 50 ML SYRINGE IV PRN ×2 (22:00)
[2018-07-11] MEDS ORDERED: ONDANSETRON 4 MG INJ IV PRN (22:00)
[2018-07-11] MEDS: BALSAM PERU/CASTOR OIL 60 GM TUBE TOP SCH (22:32)
[2018-07-11] MEDS: MEROPENEM 500MG/50 ML (PMX) 50 ML IVPB SCH (22:32)
[2018-07-12] MEDS ORDERED: PENDING SANTYL ORDER FOR WOUND CARE XX PRN
[2018-07-12 02:00] VITALS: BP 135/68; PULSE 72; RESP 18
[2018-07-12] MEDS: ACCU-CHEK XX SCH (02:00)
[2018-07-12] MEDS: PANTOPRAZOLE (EC) 40 MG TAB PO SCH (06:39)
[2018-07-12] MEDS: INSULIN ASPART [NOVOLOG] 3 ML PEN SC SCH ×7 (07:35→21:17)
[2018-07-12 07:53] VITALS: BP 135/61; PULSE 77; RESP 18
[2018-07-12] MEDS: INSULIN GLARGINE [LANTus] (100 UNITS/ML) SYG SC SCH (07:59)
[2018-07-12] MEDS: DOCUSATE SODIUM 100 MG CAP PO SCH ×3 (08:50→20:58)
[2018-07-12] MEDS: COLLAGENASE 5 GM (UD JAR) TOP SCH (08:51)
[2018-07-12] MEDS: APIXABAN 5 MG TABLET PO SCH ×2 (08:51→20:52)
[2018-07-12] MEDS: AMIODARONE 200 MG TAB PO SCH (08:52)
[2018-07-12] MEDS: HYDROCODONE/APAP (5/325) TAB PO PRN ×2 (08:56→18:46)
[2018-07-12] MEDS: MEROPENEM 500MG/50 ML (PMX) 50 ML IVPB SCH ×2 (08:58→21:08)
[2018-07-12] MEDS: BALSAM PERU/CASTOR OIL 60 GM TUBE TOP SCH ×2 (08:59→22:54)
--- NOTE | 2018-07-12 11:18 | CONS ---
DATE OF ADMISSION: 07/11/2018 DATE OF CONSULTATION: 07/12/2018 REHABLILITATION POST ADMISSION PHYSCIAN EVALUATION REHABILITATION IMPAIRMENT CATEGORY: Cardiac debility secondary to congestive heart failure, cardiomyopathy. ACTIVE COMORBIDITIES: 1. Atrial fibrillation. 2. Left lower extremity thrombus status post thrombectomy. 3. Acute on chronic kidney injury along with history of renal cancer and partial nephrectomy. 4. Leukocytosis secondary to systemic inflammatory response. 5. Anemia. 6. Hypertension. 7. Urinary tract infection. 8. Left lower extremity cellulitis. 9. Dysphagia. 10. Impairments in self-care, mobility, and mild cognition. 11. Right heel DTI, right buttock un-stageable, left heel with blanchable erythema. HISTORY OF PRESENT ILLNESS: The patient is an 82-year-old female with a history of multiple medical comorbidities including coronary artery disease with CABG, atrial fibrillation, chronic kidney disease with history of left renal tumor and partial nephrectomy, who was admitted with severe bilateral lower extremity pain, left worse than right, in addition to increased shortness of breath. Workup was consistent with congestive heart failure exacerbation in addition to lower extremity thrombosis. The patient underwent thrombectomy. The patient's hospital course was notable for left groin hematoma versus abscess, urinary tract infection, urinary retention requiring Odonnell placement, labile blood sugar, and systemic inflammatory response syndrome with leukocytosis. The patient's medical status gradually improved, but the patient noted to have significant impairments in self-care and mobility as compared to baseline. She has been cleared to transfer to the rehabilitation unit for comprehensive interdisciplinary rehab care. FUNCTIONAL HISTORY: Prior to recent events, the family reports she ambulated independently. Currently, the patient requires maximal assist for self-care and mobility tasks. I have reviewed the preadmission screen and patient's current functional status is consistent with the preadmission screen. FAMILY AND SOCIAL HISTORY: The patient lives at home in a second floor apartment and hopes to return there upon discharge. PAST MEDICAL HISTORY: 1. Hypertension. 2. Diabetes mellitus type 2. 3. Gastroesophageal reflux disease. 4. Coronary artery disease with history of coronary artery bypass surgery. 5. Chronic kidney disease with history of renal cell carcinoma and partial nephrectomy. 6. Atrial fibrillation. 7. Anemia. CURRENT MEDICATIONS: 1. Cordarone 200 mg p.o. daily. 2. Eliquis 2.5 mg p.o. b.i.d. 3. Lipitor 40 mg p.o. at bedtime. 4. Catapres 0.1 mg p.o. b.i.d. p.r.n. 5. Santyl topically. 6. Colace 100 mg b.i.d. 7. Epogen. 8. Neurontin 300 mg p.o. at bedtime. 9. Insulin sliding scale. 10. [place] p.r.n. 11. NovoLog insulin 6 units subcutaneously with meals. 12. Ativan p.r.n. 13. Protonix 40 mg p.o. daily. 14. Vancomycin IV. ALLERGIES: THE PATIENT WITH NO KNOWN DRUG ALLERGIES. PHYSICAL EXAMINATION: VITAL SIGNS: The patient is currently afebrile with stable vital signs. HEENT: Extraocular motions appear intact. Oropharynx clear. NECK: Supple. LUNGS: Clear anteriorly. CARDIAC: S1, S2. ABDOMEN: Soft, nontender, positive bowel sounds. NEUROLOGIC: She is awake and alert. She is oriented to person and hospital. She will follow simple 1-step commands. She demonstrates antigravity strength in bilateral upper extremity and the right lower extremity. Dorsiflexion and plantar flexion intact on the left. INTEGUMENT: Does reveal left lower extremity erythema and edema, right gluteus with un-stageable lesion, the left heel with blanchable erythema, tight heel with deep tissue injury, upper extremities with ecchymoses. PLAN: The patient has been admitted for comprehensive interdisciplinary acute rehab and is anticipated to tolerate 3 hours of daily therapy in divided doses for at least 5/7 days a week. The treatment plan will include: 1. Physical therapy to focus on bed mobility, transfers, and household ambulation with the goal of having the patient reach a standby assist level. 2. Occupational therapy to focus on hygiene, grooming, dressing, bathing, and toileting activities with the goal of having the patient reach standby assist level. 3. Speech therapy for full cognitive assessment and retraining in addition to dysphagia management with the goal of having the patient return to baseline cognition and meet nutritional needs by mouth. 4. Rehabilitation nursing for carryover therapeutic interventions, the goal of continent of bowel and bladder, and the goal of patient and family education with regard to pressure relief measures given the skin integrity issues in addition to education on aforementioned issues. 5. Neuro psychology for full cognitive assessment and oversight of cognitive program. ESTIMATED LENGTH OF STAY: 14 days. DISPOSITION GOAL: Home with family. REHABILITATION BARRIER: Pain. INTERVENTION FOR BARRIER: Interdisciplinary approach. As a board certified community engagement specialist and physical medicine and rehabilitation, I attest that this patient qualifies for an interdisciplinary acute rehabilitation unit stay and is best manage at this level of care given the complexity of the case I believe that the patient care at this time cannot be appropriately managed at a different level of care. The patient has potential to make improvement and is in need of at least two of the following multidisciplinary therapies including physical, but not limited to, physical therapy, occupational therapy, respiratory therapy, speech therapy, nutritional services, wound services. After thorough review of the patient's medical records and physical examination I believe that the patient meet all criteria for acute rehabilitation unit level of care under [facility] guidelines. The patient and family have expressed a good understanding of the rehabilitation program and discharge plan. I acknowledge that I performed a full physical examination on this patient within 24 hours of admission to the rehabilitation unit. Dictated By: GOSIA CASTELLON MD LY/NTS Conf#: [id number] DID#: [id number] CC: NUBIA TEJEDA MD; GOSIA CASTELLON MD;*EndCC* MTDD
[2018-07-12] MEDS: VANCOMYCIN 1 GM 250 ML IVPB SCH (11:46)
[2018-07-12 14:00] VITALS: BP 134/56; PULSE 76; RESP 18
[2018-07-12] MEDS: CASPOFUNGIN 50 MG in SOD CHLORIDE 0.9% 250 ML IVPB SCH (15:17)
[2018-07-12] MEDS: EPOETIN ALFA-EPBX (NON-ESRD) 3,000 UNIT/ML VIAL SC SCH (17:50)
[2018-07-12 19:58] VITALS: BP 134/65; PULSE 82; RESP 18
[2018-07-12] MEDS: ATORVASTATIN 40 MG TAB PO SCH (20:51)
[2018-07-12] MEDS: GABAPENTIN 300 MG CAP PO SCH (20:51)
[2018-07-12] MEDS: SENNA TAB PO SCH (20:58)
[2018-07-13] MEDS: HYDROCODONE/APAP (5/325) TAB PO PRN ×2 (01:09→21:21)
[2018-07-13 02:00] VITALS: BP 130/62; PULSE 76; RESP 18
[2018-07-13] MEDS: ACCU-CHEK XX SCH (02:00)
[2018-07-13] MEDS: PANTOPRAZOLE (EC) 40 MG TAB PO SCH (06:59)
[2018-07-13 07:00] VITALS: BP 141/66; PULSE 76; RESP 18
[2018-07-13] MEDS: INSULIN ASPART [NOVOLOG] 3 ML PEN SC SCH ×7 (07:35→20:54)
[2018-07-13] MEDS: INSULIN GLARGINE [LANTus] (100 UNITS/ML) SYG SC SCH (08:24)
[2018-07-13] MEDS: DOCUSATE SODIUM 100 MG CAP PO SCH ×3 (08:26→21:00)
[2018-07-13] MEDS: AMIODARONE 200 MG TAB PO SCH (08:26)
[2018-07-13] MEDS: APIXABAN 5 MG TABLET PO SCH ×2 (08:27→20:31)
[2018-07-13] MEDS: FOLIC ACID 1 MG TAB PO SCH (08:27)
[2018-07-13] MEDS: ASCORBIC ACID 250 MG TAB PO SCH (08:27)
[2018-07-13] MEDS: COLLAGENASE 5 GM (UD JAR) TOP SCH (08:27)
[2018-07-13] MEDS: MULTIVITAMINS THERAPEUTIC TAB PO SCH (08:27)
[2018-07-13] MEDS: BALSAM PERU/CASTOR OIL 60 GM TUBE TOP SCH ×2 (08:31→21:22)
[2018-07-13] MEDS: MEROPENEM 500MG/50 ML (PMX) 50 ML IVPB SCH ×2 (08:33→20:38)
[2018-07-13 14:00] VITALS: BP 139/65; PULSE 80; RESP 18
[2018-07-13] MEDS: CASPOFUNGIN 50 MG in SOD CHLORIDE 0.9% 250 ML IVPB SCH (16:16)
--- NOTE | 2018-07-13 18:31 | CONS ---
Assessment/Plan Assessment/Plan Hospital Course (Demo Recall) ID PROGRESS NOTE CURRENT ABX: DAY #12 => Vanco IV #12 + Merrem #8 + Cancidas #9 07/12/18 0632 07/12/18 0632 24H INTERVAL SUMMARY * A/A/O, VSS, NAD, no fevers, without dyspnea on 2L O2 via NC * Taking PO/s independent w/dinner tray * Feeling "fine thank you" -- still has pain in LLEXT post thrombectomy w/movement, DSG changes * Urine Cx (+) Staph has FC in place -- denies dysuria, non-toxic appearing == ASYMPTOMATIC DIAGNOSTIC IMAGING * 07/11/18 CXR: * Left lower lung zone airspace disease, increased when compared to 07/03/2018, which may be related to atelectasis and / or pneumonia. * Probable small left pleural effusion. * Stable mild cardiomegaly and pulmonary vascular congestion MICRO/OTHER * 07/11/18 (-) MRSA Nares * 07/11/18 Urine (+) URINE CULTURE Preliminary Organism 1 STAPHYLOCOCCUS SPECIES COLONY COUNT >100,000 CFU/ml PHYSICAL EXAMINATION: GENERAL: VSS, NAD, A/A/O and responsive HEENT: AT, NC, anicteric, no thrush NECK: Supple, trach midline CHEST: Equal chest rise bilaterally, without dyspnea on observation HEART: Pulse RRR ABDOMEN: Obese, Soft / NT EXTREMITIES: Warm, dry -- LEFT LOWER EXTREMITY EDEMA/ERYTHEMA, DSG C/D/I, (+)pain to palpation => See photos of jacobo intact left groin and left calf area SKIN: No rash, no diaphoresis, R-Buttock DTI, see photos - upper extremity ecchymosis ID ASSESSMENT 82 yo F admit with: 1. SIRS w/low grade temperatures leukocytosis==> RESOLVING 2. Left groin hematoma versus abscess per 07/04/18 post thrombectomy US 3. Urinary tract infection ==> RESOLVED * 07/11/18 Urine (+)=> ASYMPTOMATIC BACTERURIA Preliminary STAPHYLOCOCCUS SPECIES >100,000 CFU/ml * 07/05/18 URINE CX (+) > 100,000 CFU ARABELLA SPECIES, NOT ALBICANS * 07/04/18 URINE CX (+) > 100,000 CFU ARABELLA SPECIES, NOT ALBICANS * 06/17/18 URINE CX (+) > 50,000 - 60,000 CFU/ml PSEUDOMONAS AERUGINOSA & > 100,000 CFU ARABELLA SPECIES, NOT ALBICANS 4. Urinary retention, s/p Odonnell * FC insertion by , Dr. Abel as nursing could not pass FC 5. Occlusive left common femoral artery status post thrombectomy * POD 06/27/18: Thrombectomy left lower extremity through a femoral approach=> #3 left femoral artery popliteal artery and anterior tibial artery 6. Coronary artery disease, history of CABG 7. Abnormal 2D echo, rule out vegetations versus thrombus versus tumor on the right atrium 8. Paroxysmal atrial fibrillation-> On Amiodarone 9. HTN 10. GERD 11. Diabetes II w/polyneuropathy complications (Peripheral, Renal, Fabien roparesis?) 12. History of renal cell carcinoma status post partial nephrectomy (~8-11 years ago) 13. BRANDON/ on CKD 14. Acute blood loss anemia - s/p PRBC Tx -- Eliquis onboard 15. Senile vs vascular dementia -- possible TIA in past per notes 16. Obesity 17. Unstageable right buttock decub w/hardened scab material 18. DTI right heel ABX ALLERGIES: KNDA INVASIVES: PIV (left hand), FC CURRENT ABX: DAY #12 => Vanco IV #12 + Merrem #8 + Cancidas #9 ID RECOMMENDATIONS/PLAN: 1. Continue current ABX 2. DO NOT TREAT 07/11/18 Urine (+)=> ASYMPTOMATIC BACTERURIA Preliminary STAPHYLOCOCCUS SPECIES >100,000 CFU/ml * Preferably would recommend to CHANGE the current FC; however prior notes reveal nursing staff were not able to place the initial FC would not pass; hence Dr. Abel placed the current FC. * She remains on appropriate ABX for staph -- suspect either contaminated urine sample from catheter vs asymptomatic bacteriuria * As long as she remains without clinical urosepsis, no indication to treat. 3. ID team colleague will follow up -- patient at risk anticipate prolonged course of ABX until infectious issues resolve/clarified . . Consultation Date/Type/Reason Admit Date/Time Jul 11, 2018 at 19:45 Initial Consult Date Date/Time of Note DATE: 07/13/18 TIME: 17:55 Exam/Review of Systems Exam Vitals Vital Signs Date Temp Pulse Resp B/P (MAP) Pulse Ox O2 O2 Flow FiO2 Time Delivery Rate 07/13/18 98.1 80 18 139/65 97 Nasal 14:00 (89) Cannula 07/13/18 2.0 08:00 Intake and Output 07/12/18 07/12/18 07/13/18 1515:00 23:00 07:00 IntakeIntake Total 700 ml 750 ml 970 ml BalanceBalance 700 ml 750 ml 970 ml Results Result Diagram: 07/12/18 0632 07/12/18 0632 Results 24hrs Laboratory Tests Test 07/12/18 20:49 07/13/18 02:41 07/13/18 07:34 07/13/18 11:46 Bedside Glucose 307 H 143 115 186 Test 07/13/18 17:29 Bedside Glucose 253 H Medications Medication Current Medications Senna (Senokot) 1 tab HS PO Last administered on 07/11/18at 21:35; Admin Dose 1 TAB; Start 07/11/18 at 21:00 Magnesium Hydroxide (Milk Of Mag) 30 ml BID PRN PO CONSTIPATION; Start 07/11/18 at 20:00 Lactulose (Enulose) 20 gm DAILY PRN PO CONSTIPATION; Start 07/11/18 at 20:00 Bisacodyl (Dulcolax Supp) 10 mg DAILY PRN [place] CONSTIPATION; Start 07/11/18 at 20:00 Diagnostic Test (Pha) (Accu-Chek) 1 ea 02 XX Last administered on 07/13/18at 02:00; Admin Dose 1 EA; Start 07/12/18 at 02:00 Acetaminophen (Tylenol Tab) 650 mg Q4H PRN PO MILD PAIN(1-3)OR ELEVATED TEMP Last administered on 07/13/18at 11:35; Admin Dose 650 MG; Start 07/11/18 at 21:30 Amiodarone HCl (Cordarone) 200 mg DAILY PO Last administered on 07/13/18at 08:2 6; Admin Dose 200 MG; Start 07/12/18 at 09:00 Apixaban (Eliquis) 2.5 mg BID PO Last administered on 07/13/18 08:27; Admin Dose 2.5 MG; Start 07/11/18 at 21:00 Atorvastatin Calcium (Lipitor) 40 mg QHS PO Last administered on 07/12/18at 20:51; Admin Dose 40 MG; Start 07/11/18 at 21:00 Caspofungin 50 mg/ Sodium Chloride 250 ml @ 250 mls/hr Q24H IVPB Last administered on 07/13/18 16:16; Admin Dose 250 MLS/HR; Start 07/12/18 at 16:00 Clonidine (Catapres) 0.1 mg BID PRN PO SBP > 180; Start 07/11/18 at 21:30 Collagenase (Santyl) 1 applic DAILY TOP Last administered on 07/13/18 08:27; Admin Dose 1 APPLIC; Start 07/12/18 at 09:00 Docusate Sodium (Colace) 100 mg TID PO Last administered on 07/12/18 08:50; Admin Dose 100 MG; Start 07/11/18 at 21:00 Epoetin Alejo-epbx (Retacrit) 6,000 unit TuThSa@1700 SC Last administered on 07/12/18 17:50; Admin Dose 6,000 UNIT; Start 07/12/18 at 17:00 Gabapentin (Neurontin) 300 mg HS PO Last administered on 07/12/18 20:51; Admin Dose 300 MG; Start 07/11/18 at 21:00 Acetaminophen/ Hydrocodone Bitart ([place]owaco (5/325)) 1 tab Q4H PRN PO sever pain Last administered on 07/13/18 01:09; Admin Dose 1 TAB; Start 07/11/18 at 21:30 Insulin Aspart (Novolog Insulin Pen) NOVOLOG *MODERATE* ALGORITHM WITH MEALS BEDTIME SC Last administered on 07/13/18 17:36; Admin Dose 6 UNIT; Start 07/11/18 at 22:00 Insulin Aspart (Novolog Insulin Pen) 6 unit WITH MEALS SC Last administered on 07/13/18 17:36; Admin Dose 6 UNIT; Start 07/12/18 at 07:35 Insulin Glargine (Lantus) 30 units 0900 SC Last administered on 07/13/18 08:24; Admin Dose 30 UNITS; Start 07/12/18 at 09:00 Lorazepam (Ativan) 0.5 mg Q8H PRN PO ANXIETY; Start 07/11/18 at 21:30 Meropenem/Sodium Chloride 50 ml @ 100 mls/hr Q12 IVPB Last administered on 07/13/18 08:33; Admin Dose 100 MLS/HR; Start 07/11/18 at 22:30 Miscellaneous Information (Pending Santyl Order For Wound Care) This patient green... PRN PRN XX WOUND CARE; Start 07/11/18 at 21:30 Morphine Sulfate (morphine) 6 mg Q4H PRN PO SEVERE PAIN LEVEL 7-10; Start 07/11/18 at 21:30 Ondansetron HCl (Zofran Inj) 4 mg Q4H PRN IV NAUSEA AND/OR VOMITING; Start 07/11/18 at 22:00 Pantoprazole (Protonix Tab) 40 mg DAILY@06 PO Last administered on 07/13/18at 06:59; Admin Dose 40 MG; Start 07/12/18 at 06:00 Vancomycin HCl (Vanco Iv Per Pharmacy) VANCOMYCIN PER PHARMACY PER PROTOCOL XX ; Start 07/11/18 at 22:00 Vancomycin HCl 250 ml @ 125 mls/hr Q48H IVPB Last administered on 07/12/18at 11:46; Admin Dose 125 MLS/HR; Start 07/12/18 at 11:00 Miscellaneous Information 1 ea NOTE XX ; Start 07/11/18 at 22:00 Glucose (Glutose) 15 gm Q15M PRN PO DECREASED GLUCOSE; Start 07/11/18 at 22:00 Glucose (Glutose) 22.5 gm Q15M PRN PO DECREASED GLUCOSE; Start 07/11/18 at 22:00 Dextrose (D50w Syringe) 25 ml Q15M PRN IV DECREASED GLUCOSE; Start 07/11/18 at 22:00 Dextrose (D50w Syringe) 50 ml Q15M PRN IV DECREASED GLUCOSE; Start 07/11/18 at 22:00 Glucagon (Glucagen) 1 mg Q15M PRN IM DECREASED GLUCOSE; Start 07/11/18 at 22:00 Glucose (Glutose) 15 gm Q15M PRN BUCCAL DECREASED GLUCOSE; Start 07/11/18 at 22:00 Miscellaneous Information (Pending Santyl Order For Wound Care) This patient green... PRN PRN XX WOUND CARE; Start 07/12/18 at 00:00 Multivitamins Therapeutic (Theragran) 1 tab DAILY PO Last administered on 07/13/18at 08:27; Admin Dose 1 TAB; Start 07/13/18 at 09:00 Ascorbic Acid (Vitamin C) 250 mg DAILY PO Last administered on 07/13/18at 08:27; Admin Dose 250 MG; Start 07/13/18 at 09:00 Folic Acid (Folic Acid) 1 mg DAILY PO Last administered on 07/13/18at 08:27; Admin Dose 1 MG; Start 07/13/18 at 09:00 Lactobacillus Acidophilus/ Rhamnosus (Culturelle) 1 cap BID PO ; Start 07/13/18 at 21:00 DICKSON JIMENEZ NP Jul 13, 2018 18:05
[2018-07-13 20:00] VITALS: BP 187/77; PULSE 88; RESP 18
[2018-07-13] MEDS: ATORVASTATIN 40 MG TAB PO SCH (20:31)
[2018-07-13] MEDS: GABAPENTIN 300 MG CAP PO SCH (20:32)
[2018-07-13] MEDS: LORAZEPAM 0.5 MG TAB PO PRN (20:37)
[2018-07-13] MEDS: SENNA TAB PO SCH (21:00)
[2018-07-13] MEDS: LACTOBACILLUS RHAMNOSUS CAP PO SCH (21:21)
[2018-07-14 02:14] VITALS: BP 131/53; PULSE 54; RESP 18
[2018-07-14] MEDS: ACCU-CHEK XX SCH (02:55)
[2018-07-14] MEDS: PANTOPRAZOLE (EC) 40 MG TAB PO SCH (06:53)
[2018-07-14 07:00] VITALS: BP 148/67; PULSE 70; RESP 18
--- NOTE | 2018-07-14 07:42 | HP ---
DATE OF ADMISSION: 07/11/2018 HISTORY OF PRESENT ILLNESS: Quintin Berman is an 82-year-old female who has been admitted in the [facility] for the past 2 weeks for acute thrombus of the lower extremities, atrial fibrillation, CHF, ty pe 2 diabetes mellitus, renal cell CA, hypertension, CHF, and polyneuropathy of the extremities. The patient has been on anticoagulation at the hospital. Thrombectomy done by Dr. Samir ramírez did no t tolerate anticoagulation secondary to bleeding, anticoagulation was stopped by the social work manager. Oneyda ramírez, the patient tolerated it well. Hemoglobin and hematocrit stable and also renal failure mu ch better. The patient due to poor ambulation was transferred for acute rehabilitation. In acute re hab, the patient is doing fine. PAST MEDICAL HISTORY: As above. ALLERGIES: NO ALLERGIES. FAMILY HISTORY: Diabetes mellitus. SOCIAL HISTORY: Negative. REVIEW OF SYSTEMS: Complains of on and off abdominal pain and discomfort over the epigastric area. Complains of numbness of the lower extremities. Denies any chest pain, denies of any cough. Denies any shortness of breath or hesitancy or urgency. PHYSICAL EXAMINATION: VITAL SIGNS: Blood pressure 130/62, heart rate 84, respiratory rate 18, afebrile. HEENT: Atraumatic, normocephalic. Pupils are equal and reactive to light. Extraocular muscles are intact. Nares are clear, no obstruction, no deviation of the septum. Oral cavity normal oral hygien e. Ear canals are clear, no signs of inflammation or infection. Tympanic membranes are intact. NECK: Supple. No JVD, no surgical scars, no lymph nodes palpable over the neck. CHEST: AP contour is within normal limits. BREASTS: Nipples are normal, no nipple retraction. HEART: Atrial fibrillation, controlled rate with cardiomegaly. LUNGS: Crackles over the bases of the lungs, otherwise negative. ABDOMEN: Soft, positive bowel sounds, no hepatosplenomegaly, no masses palpable over the abdomen and no rebound tenderness. EXTREMITIES: Positive pulses. Warm legs and no acute changes over the extremities, no edema. Labs stable. Hemoglobin and hematocrit stable. MEDICATIONS: 1. The patient is on vancomycin to continue another 4 days. 2. She is also on Epogen once a week. 3. Amiodarone 200 mg daily. 4. Insulin per sliding scale and basal insulin 40 units subq daily. 5. She is also on Eliquis 2.5 b.i.d. 6. Atorvastatin 40 daily. 7. Gabapentin 300 at bedtime. 8. Lactulose on p.r.n. basis. PLAN: Will continue these medications. I will follow up with the patient and rehab will be done by the rehab physicians and assistants also. ADMITTING DIAGNOSES: 1. Acute rehabilitation. Generalized muscle weakness 2. Atrial fibrillation. 3. Pain of lower extremities. 4. Congestive heart failure. 5. Acute on chronic renal failure. 6. Type 2 diabetes mellitus. 7. Atherosclerotic vascular disease, 8. Dyslipidemia. 9. Mild Alzheimer dementia. Dictated By: NUBIA TEJEDA MD SB/NTS Conf#: [id number] DID#: [id number] CC: GOSIA CASTELLON MD;*EndCC*
[2018-07-14] MEDS: INSULIN ASPART [NOVOLOG] 3 ML PEN SC SCH ×7 (07:55→21:00)
--- NOTE | 2018-07-14 07:55 | PN ---
DATE: 07/14/2018 SUBJECTIVE: The patient is in acute rehab today for acute rehabilitation post-generalized muscle wea kness and multiple wounds over the body, over the coccyx area, over the heels, status post thrombecto my of the left lower extremity, atrial fibrillation, acute on chronic kidney disease, urinary tract i nfection, type 2 diabetes mellitus, hypertension, congestive heart failure and generalized weakness. The patient today is sleepy, tired. She tells me that she just wants to sleep. VITAL SIGNS: Today, blood pressure 131/53, heart rate is 79, respiratory rate is 18. She is afebril e. REVIEW OF SYSTEMS: The patient does not have any complaints. She is just generally weak and a littl e confused. She denies of any chest pain, denies of any abdominal pain, denies of any hesitancy, urg ency or pain during urination. She denies shortness of breath, fever, chills, or any type of aches. PHYSICAL EXAMINATION: GENERAL: Alert, oriented x2, in no acute distress. HEENT: Atraumatic, normocephalic. Pupils are equal and reactive to light. Extraocular muscles are intact. NECK: Supple. No JVD, no surgical scars, no lymph nodes palpable over the neck. CHEST: AP contour within normal limits. Breasts and nipples are normal, no nipple retraction. HEART: Atrial fibrillation, controlled rate with cardiomegaly. LUNGS: Very mild crackles and scattered rhonchi over the lungs and poor effort. ABDOMEN: Soft, positive bowel sounds, no hepatosplenomegaly, no masses palpable over the abdomen and no rebound tenderness. EXTREMITIES: Tenderness and redness over the left lower extremity below knee mainly some type of pos sible cellulitis and heel wounds also in addition to that inguinal hernia, hematoma with tenderness. She has also another wound over the right heel and the coccyx area. LABORATORY DATA: CBC: White blood cells increased since yesterday. White blood cells 18.2, hemoglo bin 88.3/27.7 and platelet count 397. Chemistry, pending yet and blood sugars are elevated. DIAGNOSIS: 1. Generalized weakness. 2. Urinary tract infection. 3. Atrial fibrillation. 4. Congestive heart failure. 5. Leukocytosis. 6. Cellulitis of the lower extremities and unstageable over the extremities 7. Degenerative joint disease. 8. Type 2 diabetes mellitus, uncontrolled. 9. Acute on chronic kidney disease. 10. Peripheral vascular disease. 11. Dementia. PLAN: We will continue IV antibiotic. We will continue consulting with the wound infectionist and [facility] care nurses. We will continue treating the wounds and rehabilitation will continue. Dictated By: NUBIA TEJEDA MD SB/NTS Conf#: [id number] DID#: [id number] CC: GOSIA CASTELLON MD; NUBIA TEJEDA MD;*End*
[2018-07-14] MEDS ORDERED: INSULIN GLARGINE [LANTus] (100 UNITS/ML) SYG SC ONE (08:30)
[2018-07-14] MEDS: MULTIVITAMINS THERAPEUTIC TAB PO SCH (09:21)
[2018-07-14] MEDS: ASCORBIC ACID 250 MG TAB PO SCH (09:21)
[2018-07-14] MEDS: APIXABAN 5 MG TABLET PO SCH ×2 (09:21→20:58)
[2018-07-14] MEDS: LACTOBACILLUS RHAMNOSUS CAP PO SCH ×2 (09:21→20:58)
[2018-07-14] MEDS: MEROPENEM 500MG/50 ML (PMX) 50 ML IVPB SCH ×2 (09:22→20:58)
[2018-07-14] MEDS: AMIODARONE 200 MG TAB PO SCH (09:23)
[2018-07-14] MEDS: COLLAGENASE 5 GM (UD JAR) TOP SCH (09:25)
[2018-07-14] MEDS: BALSAM PERU/CASTOR OIL 60 GM TUBE TOP SCH ×2 (09:26→23:44)
[2018-07-14] MEDS: FOLIC ACID 1 MG TAB PO SCH (09:30)
[2018-07-14] MEDS: INSULIN GLARGINE [LANTus] (100 UNITS/ML) SYG SC SCH (10:15)
[2018-07-14] MEDS: VANCOMYCIN 1 GM 250 ML IVPB SCH (11:39)
--- NOTE | 2018-07-14 12:10 | CONS ---
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 Consultation Date/Type/Reason Admit Date/Time Jul 11, 2018 at 19:45 Initial Consult Date Type of Consult Cardiology Date/Time of Note DATE: 07/14/18 TIME: 12:07 24 HR Interval Summary Free Text/Dictation No shortness of breath, no palpitations Exam/Review of Systems Vital Signs Vitals Vital Signs Date Temp Pulse Resp B/P (MAP) Pulse Ox O2 O2 Flow FiO2 Time Delivery Rate 07/14/18 98.0 70 18 148/67 94 Nasal 2.0 07:00 (94) Cannula Intake and Output 07/13/18 07/13/18 07/14/18 1515:00 23:00 07:00 IntakeIntake Total 50 ml 800 ml 240 ml OutputOutput Total 400 ml BalanceBalance 50 ml 400 ml 240 ml Exam Constitutional: alert, oriented (Sitting in chair) Head: normocephalic Respiratory: other (Coarse breath sounds bilaterally, no wheezing) Cardiovascular: regular rate and rhythm (S1-S2 heard) Gastrointestinal: soft, non-tender, bowel sounds Extremities: edema Labs Result Diagram: 07/14/18 0707/14/18 07 Results 24hrs Laboratory Tests Test 07/13/18 17:29 07/13/18 20:52 07/14/18 03:02 07/14/18 07:05 Bedside Glucose 253 H 254 H 289 H White Blood Count 18.2 #H Red Blood Count 3.01 L Hemoglobin 8.3 L Hematocrit 27.7 L Mean Corpuscular 92.0 Volume Mean Corpuscular 27.6 L Hemoglobin Mean Corpuscular 30.0 L Hemoglobin Concent Red Cell 15.3 H Distribution Width Platelet Count 397 Mean Platelet Volume 9.5 Immature 1.000 H Granulocytes % Neutrophils % 83.5 H Lymphocytes % 8.2 L Monocytes % 6.3 Eosinophils % 0.7 Basophils % 0.3 Nucleated Red Blood 0.0 Cells % Immature 0.180 H Granulocytes # Neutrophils # 15.2 H Lymphocytes # 1.5 Monocytes # 1.2 H Eosinophils # 0.1 Basophils # 0.1 Nucleated Red Blood 0.0 Cells # Sodium Level 138 Potassium Level 4.9 Chloride Level 105 Carbon Dioxide Level 32 H Anion Gap 1 L Blood Urea Nitrogen 46 H Creatinine 1.57 H Est Glomerular Filtrat Rate mL/min Glucose Level 233 H Calcium Level 8.5 B-Type Natriuretic 9730 H Peptide Test 07/14/18 07:51 07/14/18 11:45 Bedside Glucose 242 H 233 H Medications Medications Current Medications Magnesium Hydroxide (Milk Of Mag) 30 ml BID PRN PO CONSTIPATION; Start 07/11/18 at 20:00 Lactulose (Enulose) 20 gm DAILY PRN PO CONSTIPATION; Start 07/11/18 at 20:00 Bisacodyl (Dulcolax Supp) 10 mg DAILY PRN [place] CONSTIPATION; Start 07/11/18 at 20:00 Diagnostic Test (Pha) (Accu-Chek) 1 ea 02 XX Last administered on 07/14/18at 02:55; Admin Dose 1 EA; Start 07/12/18 at 02:00 Acetaminophen (Tylenol Tab) 650 mg Q4H PRN PO MILD PAIN(1-3)OR ELEVATED TEMP Last administered on 07/13/18at 11:35; Admin Dose 650 MG; Start 07/11/18 at 21:30 Amiodarone HCl (Cordarone) 200 mg DAILY PO Last administered on 07/14/18 09:23; Admin Dose 200 MG; Start 07/12/18 at 09:00 Apixaban (Eliquis) 2.5 mg BID PO Last administered on 07/14/18 09:21; Admin Dose 2.5 MG; Start 07/11/18 at 21:00 Atorvastatin Calcium (Lipitor) 40 mg QHS PO Last administered on 07/13/18 20:31; Admin Dose 40 MG; Start 07/11/18 at 21:00 Caspofungin 50 mg/ Sodium Chloride 250 ml @ 250 mls/hr Q24H IVPB Last administered on 07/13/18 16:16; Admin Dose 250 MLS/HR; Start 07/12/18 at 16:00 Clonidine (Catapres) 0.1 mg BID PRN PO SBP > 180 Last administered on 07/13/18 20:31; Admin Dose 0.1 MG; Start 07/11/18 at 21:30 Collagenase (Santyl) 1 applic DAILY TOP Last administered on 07/14/18 09:25; Admin Dose 1 APPLIC; Start 07/12/18 at 09:00 Epoetin Alejo-epbx (Retacrit) 6,000 unit TuThSa@1700 SC Last administered on 07/12/18 17:50; Admin Dose 6,000 UNIT; Start 07/12/18 at 17:00 Gabapentin (Neurontin) 300 mg HS PO Last administered on 07/13/18 20:32; Admin Dose 300 MG; Start 07/11/18 at 21:00 Acetaminophen/ Hydrocodone Bitart ([place] (5/325)) 1 tab Q4H PRN PO sever pain Last administered on 07/13/18 21:21; Admin Dose 1 TAB; Start 07/11/18 at 21:30 Insulin Aspart (Novolog Insulin Pen) NOVOLOG *MODERATE* ALGORITHM WITH MEALS BEDTIME SC Last administered on 07/14/18 07:55; Admin Dose 6 UNIT; Start 07/11 at 22:00 Insulin Aspart (Novolog Insulin Pen) 6 unit WITH MEALS SC Last administered on 07/14/18 07:55; Admin Dose 6 UNIT; Start 07/12/18 at 07:35 Lorazepam (Ativan) 0.5 mg Q8H PRN PO ANXIETY Last administered on 07/13/18 20:37; Admin Dose 0.5 MG; Start 07/11/18 at 21:30 Meropenem/Sodium Chloride 50 ml @ 100 mls/hr Q12 IVPB Last administered on 07/14/18 09:22; Admin Dose 100 MLS/HR; Start 07/11/18 at 22:30 Miscellaneous Information (Pending Santyl Order For Wound Care) This patient h a... PRN PRN XX WOUND CARE; Start 07/11/18 at 21:30 Morphine Sulfate (morphine) 6 mg Q4H PRN PO SEVERE PAIN LEVEL 7-10; Start 07/11/18 at 21:30 Ondansetron HCl (Zofran Inj) 4 mg Q4H PRN IV NAUSEA AND/OR VOMITING Last administered on 07/13/18at 20:37; Admin Dose 4 MG; Start 07/11/18 at 22:00 Pantoprazole (Protonix Tab) 40 mg DAILY@06 PO Last administered on 07/14/18at 06:53; Admin Dose 40 MG; Start 07/12/18 at 06:00 Vancomycin HCl (Vanco Iv Per Pharmacy) VANCOMYCIN PER PHARMACY PER PROTOCOL XX ; Start 07/11/18 at 22:00 Vancomycin HCl 250 ml @ 125 mls/hr Q48H IVPB Last administered on 07/14/18at 11:39; Admin Dose 125 MLS/HR; Start 07/12/18 at 11:00 Miscellaneous Information 1 ea NOTE XX ; Start 07/11/18 at 22:00 Glucose (Glutose) 15 gm Q15M PRN PO DECREASED GLUCOSE; Start 07/11/18 at 22:00 Glucose (Glutose) 22.5 gm Q15M PRN PO DECREASED GLUCOSE; Start 07/11/18 at 22:00 Dextrose (D50w Syringe) 25 ml Q15M PRN IV DECREASED GLUCOSE; Start 07/11/18 at 22:00 Dextrose (D50w Syringe) 50 ml Q15M PRN IV DECREASED GLUCOSE; Start 07/11/18 at 22:00 Glucagon (Glucagen) 1 mg Q15M PRN IM DECREASED GLUCOSE; Start 07/11/18 at 22:00 Glucose (Glutose) 15 gm Q15M PRN BUCCAL DECREASED GLUCOSE; Start 07/11/18 at 22:00 Miscellaneous Information (Pending [facility] Order For Wound Care) This patient h a... PRN PRN XX WOUND CARE; Start 07/12/18 at 00:00 Ascorbic Acid (Vitamin C) 250 mg DAILY PO Last administered on 07/14/18at 09:21; Admin Dose 250 MG; Start 07/13/18 at 09:00 Folic Acid (Folic Acid) 1 mg DAILY PO Last administered on 07/14/18at 09:30; Admin Dose 1 MG; Start 07/13/18 at 09:00 Lactobacillus Acidophilus/ Rhamnosus (Culturelle) 1 cap BID PO Last administered on 07/14/18at 09:21; Admin Dose 1 CAP; Start 07/13/18 at 21:00 Insulin Glargine (Lantus) 40 units DAILY SC ; Start 07/15/18 at 09:00 Multivit/Ca Carb/ B Cmplx/FA/Prenat (Kandace-Juan José) 1 tab DAILY PO ; Start 07/15/18 at 09:00 Alex Chávez DO Jul 14, 2018 12:10
--- NOTE | 2018-07-14 12:58 | PN ---
Date/Time of Note Date/Time of Note DATE: 07/14/18 TIME: 12:58 Objective Vital Signs Date Temp Pulse Resp B/P (MAP) Pulse Ox O2 O2 Flow FiO2 Time Delivery Rate 07/14/18 98.0 70 18 148/67 94 Nasal 2.0 07:00 (94) Cannula Intake and Output 07/13/18 07/13/18 07/14/18 1515:00 23:00 07:00 IntakeIntake Total 50 ml 800 ml 240 ml OutputOutput Total 400 ml BalanceBalance 50 ml 400 ml 240 ml Exam INTERDISCIPLINARY TEAM CONFERENCE Attended by PT, OT, ST, Director Loan, Social Work, Rehabilitation Nursing, Event Marketing Intern and Lens EngraverHot Worker Exam: Pulm- cta Abd-soft BOWEL- Loose stools BLADDER-Cont/ incont SKIN-buttock unstageable; R heel DTI, left heel blanchable OT- DRESSING- max BATHING-max TOILETING-max PT- BED MOBILITY-max TRANSFERS-max x 2 AMBULATION- UA WHEELCHAIR- max SPEECH- COGNITION- mod cues Dysphagia- tolerating current diet A/P- Interdisciplinary team conference held today. Please see interdisciplinary sheet. Working toward d.c. on 07/25 with post discharge follow up of physical therapy, occupational therapy. Results/Medications Result Diagram: 07/14/18 0705 07/14/18 07 Results 24 hrs Laboratory Tests Test 07/13/18 17:29 07/13/18 20:52 07/14/18 03:02 07/14/18 07:05 Bedside Glucose 253 H 254 H 289 H White Blood Count 18.2 #H Red Blood Count 3.01 L Hemoglobin 8.3 L Hematocrit 27.7 L Mean Corpuscular 92.0 Volume Mean Corpuscular 27.6 L Hemoglobin Mean Corpuscular 30.0 L Hemoglobin Concent Red Cell 15.3 H Distribution Width Platelet Count 397 Mean Platelet Volume 9.5 Immature 1.000 H Granulocytes % Neutrophils % 83.5 H Lymphocytes % 8.2 L Monocytes % 6.3 Eosinophils % 0.7 Basophils % 0.3 Nucleated Red Blood 0.0 Cells % Immature 0.180 H Granulocytes # Neutrophils # 15.2 H Lymphocytes # 1.5 Monocytes # 1.2 H Eosinophils # 0.1 Basophils # 0.1 Nucleated Red Blood 0.0 Cells # Sodium Level 138 Potassium Level 4.9 Chloride Level 105 Carbon Dioxide Level 32 H Anion Gap 1 L Blood Urea Nitrogen 46 H Creatinine 1.57 H Est Glomerular Filtrat Rate mL/min Glucose Level 233 H Calcium Level 8.5 B-Type Natriuretic 9730 H Peptide Test 07/14/18 07:51 07/14/18 11:45 Bedside Glucose 242 H 233 H Medications Current Medications Magnesium Hydroxide (Milk Of Mag) 30 ml BID PRN PO CONSTIPATION; Start 07/11/18 at 20:00 Lactulose (Enulose) 20 gm DAILY PRN PO CONSTIPATION; Start 07/11/18 at 20:00 Bisacodyl (Dulcolax Supp) 10 mg DAILY PRN [place] CONSTIPATION; Start 07/11/18 at 20:00 Diagnostic Test (Pha) (Accu-Chek) 1 ea 02 XX Last administered on 07/14/18at 02:55; Admin Dose 1 EA; Start 07/12/18 at 02:00 Acetaminophen (Tylenol Tab) 650 mg Q4H PRN PO MILD PAIN(1-3)OR ELEVATED TEMP Last administered on 07/13/18 11:35; Admin Dose 650 MG; Start 07/11/18 at 21:30 Amiodarone HCl (Cordarone) 200 mg DAILY PO Last administered on 07/14/18 09:23; Admin Dose 200 MG; Start 07/12/18 at 09:00 Apixaban (Eliquis) 2.5 mg BID PO Last administered on 07/14/18 09:21; Admin Dose 2.5 MG; Start 07/11/18 at 21:00 Atorvastatin Calcium (Lipitor) 40 mg QHS PO Last administered on 07/13/18 20:31; Admin Dose 40 MG; Start 07/11/18 at 21:00 Caspofungin 50 mg/ Sodium Chloride 250 ml @ 250 mls/hr Q24H IVPB Last administered on 07/13/18 16:16; Admin Dose 250 MLS/HR; Start 07/12/18 at 16:00 Clonidine (Catapres) 0.1 mg BID PRN PO SBP > 180 Last administered on 07/13/18 20:31; Admin Dose 0.1 MG; Start 07/11/18 at 21:30 Collagenase (Santyl) 1 applic DAILY TOP Last administered on 07/14/18 09:25; Admin Dose 1 APPLIC; Start 07/12/18 at 09:00 Epoetin Alejo-epbx (Retacrit) 6,000 unit TuThSa@1700 SC Last administered on 07/12/18 17:50; Admin Dose 6,000 UNIT; Start 07/12/18 at 17:00 Gabapentin (Neurontin) 300 mg HS PO Last administered on 07/13/18 20:32; Admin Dose 300 MG; Start 07/11/18 at 21:00 Acetaminophen/ Hydrocodone Bitart ([place] (5/325)) 1 tab Q4H PRN PO sever pain Last administered on 07/13/18 21:21; Admin Dose 1 TAB; Start 07/11/18 at 21:30 Insulin Aspart (Novolog Insulin Pen) NOVOLOG *MODERATE* ALGORITHM WITH MEALS BEDTIME SC Last administered on 07/14/18 12:08; Admin Dose 6 UNIT; Start 07/11/18 at 22:00 Insulin Aspart (Novolog Insulin Pen) 6 unit WITH MEALS SC Last administered on 07/14/18 12:08; Admin Dose 6 UNIT; Start 07/12/18 at 07:35 Lorazepam (Ativan) 0.5 mg Q8H PRN PO ANXIETY Last administered on 07/13/18 20:37; Admin Dose 0.5 MG; Start 07/11/18 at 21:30 Meropenem/Sodium Chloride 50 ml @ 100 mls/hr Q12 IVPB Last administered on 09:22; Admin Dose 100 MLS/HR; Start 07/11/18 at 22:30 Miscellaneous Information (Pending [facility] Order For Wound Care) This patient green... PRN PRN XX WOUND CARE; Start 07/11/18 at 21:30 Morphine Sulfate (morphine) 6 mg Q4H PRN PO SEVERE PAIN LEVEL 7-10; Start 07/11/18 at 21:30 Ondansetron HCl (Zofran Inj) 4 mg Q4H PRN IV NAUSEA AND/OR VOMITING Last administered on 07/13/18 20:37; Admin Dose 4 MG; Start 07/11/18 at 22:00 Pantoprazole (Protonix Tab) 40 mg DAILY@06 PO Last administered on 07/14/18 06:53; Admin Dose 40 MG; Start 07/12/18 at 06:00 Vancomycin HCl (Vanco Iv Per Pharmacy) VANCOMYCIN PER PHARMACY PER PROTOCOL XX ; Start 07/11/18 at 22:00 Vancomycin HCl 250 ml @ 125 mls/hr Q48H IVPB Last administered on 07/14/18at 11:39; Admin Dose 125 MLS/HR; Start 07/12/18 at 11:00 Miscellaneous Information 1 ea NOTE XX ; Start 07/11/18 at 22:00 Glucose (Glutose) 15 gm Q15M PRN PO DECREASED GLUCOSE; Start 07/11/18 at 22:00 Glucose (Glutose) 22.5 gm Q15M PRN PO DECREASED GLUCOSE; Start 07/11/18 at 22:00 Dextrose (D50w Syringe) 25 ml Q15M PRN IV DECREASED GLUCOSE; Start 07/11/18 at 22:00 Dextrose (D50w Syringe) 50 ml Q15M PRN IV DECREASED GLUCOSE; Start 07/11/18 at 22:00 Glucagon (Glucagen) 1 mg Q15M PRN IM DECREASED GLUCOSE; Start 07/11/18 at 22:00 Glucose (Glutose) 15 gm Q15M PRN BUCCAL DECREASED GLUCOSE; Start 07/11/18 at 22:00 Miscellaneous Information [facility] This patient green... PRN PRN XX WOUND CARE; Start 07/12/18 at 00:00 Ascorbic Acid (Vitamin C) 250 mg DAILY PO Last administered on 07/14/18at 09:21; Admin Dose 250 MG; Start 07/13/18 at 09:00 Folic Acid (Folic Acid) 1 mg DAILY PO Last administered on 07/14/18at 09:30; Admin Dose 1 MG; Start 07/13/18 at 09:00 Lactobacillus Acidophilus/ Rhamnosus (Culturelle) 1 cap BID PO Last administered on 07/14/18at 09:21; Admin Dose 1 CAP; Start 07/13/18 at 21:00 Insulin Glargine (Lantus) 40 units DAILY SC ; Start 07/15/18 at 09:00 Multivit/Ca Carb/ B Cmplx/FA/Prenat (Kandace-Juan José) 1 tab DAILY PO ; Start 07/15/18 at 09:00 GOSIA CASTELLON MD Jul 14, 2018 12:58
[2018-07-14 14:00] VITALS: BP 140/65; PULSE 83; RESP 18
--- NOTE | 2018-07-14 14:35 | CONS ---
Assessment/Plan Assessment/Plan Hospital Course (Demo Recall) No acute events overnight per report. Patient had been having loose stools. Cultures sent. She is awake eating lunch, afebrile WBC 18.2 neutrophils 83.5 BUN 46 creatinine 1.57 Microbiology: Urine culture persistently growing Carmella species, not albicans LLE US revealed 5.0 cm debris containing collection in the superficial soft tissues of the left inguinal region. Finding could reflect a hematoma. Superimposed infection or abscess is not excluded. Antimicrobials: Cancidas Merrem Vancomycin Physical examination: This is obese well-developed [place] woman who is in no distress. Head atraumatic normocephalic sclera nonicteric. Neck is supple. Chest rise symmetrical breath sounds clear, diminished bases. Heart: S1-S2. Abdomen soft, bowel sounds present. Extremities without cyanosis. Left lower extremity swollen with calf erythema Assessment: 1. Systemic inflammatory response syndrome with ongoing leukocytosis 2. Diarrhea, rule out C. difficile 3. Urinary tract infection 4. Urinary retention, s/p Odonnell 5. Occlusive left common femoral artery status post thrombectomy 6. Coronary artery disease, history of CABG 7. Paroxysmal atrial fibrillation 8. Diabetes 9. Abnormal 2D echo, rule out vegetations versus thrombus versus tumor on the right atrium 10. History of renal cell carcinoma status post partial nephrectomy Plan: Clinically stable, will add Flagyl, continue other abx, await for stool cx. Given abnormal 2D ECHO recommend to complete [address] Chávez Consultation Date/Type/Reason Admit Date/Time Jul 11, 2018 at 19:45 Initial Consult Date Type of Consult id Date/Time of Note DATE: 07/14/18 TIME: 14:26 Exam/Review of Systems Exam Vitals Vital Signs Date Temp Pulse Resp B/P (MAP) Pulse Ox O2 O2 Flow FiO2 Time Delivery Rate 07/14/18 Nasal 2.0 08:00 Cannula 07/14/18 98.0 70 18 148/67 94 07:00 (94) Intake and Output 07/13/18 07/13/18 07/14/18 1515:00 23:00 07:00 IntakeIntake Total 50 ml 800 ml 240 ml OutputOutput Total 400 ml BalanceBalance 50 ml 400 ml 240 ml Results Result Diagram: 07/14/18 0705 07/14/18 0705 Results 24hrs Laboratory Tests Test 07/13/18 17:29 07/13/18 20:52 07/14/18 03:02 07/14/18 07:05 Bedside Glucose 253 H 254 H 289 H White Blood Count 18.2 #H Red Blood Count 3.01 L Hemoglobin 8.3 L Hematocrit 27.7 L Mean Corpuscular 92.0 Volume Mean Corpuscular 27.6 L Hemoglobin Mean Corpuscular 30.0 L Hemoglobin Concent Red Cell 15.3 H Distribution Width Platelet Count 397 Mean Platelet Volume 9.5 Immature 1.000 H Granulocytes % Neutrophils % 83.5 H Lymphocytes % 8.2 L Monocytes % 6.3 Eosinophils % 0.7 Basophils % 0.3 Nucleated Red Blood 0.0 Cells % Immature 0.180 H Granulocytes # Neutrophils # 15.2 H Lymphocytes # 1.5 Monocytes # 1.2 H Eosinophils # 0.1 Basophils # 0.1 Nucleated Red Blood 0.0 Cells # Sodium Level 138 Potassium Level 4.9 Chloride Level 105 Carbon Dioxide Level 32 H Anion Gap 1 L Blood Urea Nitrogen 46 H Creatinine 1.57 H Est Glomerular Filtrat Rate mL/min Glucose Level 233 H Calcium Level 8.5 B-Type Natriuretic 9730 H Peptide Test 07/14/18 07:51 07/14/18 11:45 Bedside Glucose 242 H 233 H Medications Medication Current Medications Magnesium Hydroxide (Milk Of Mag) 30 ml BID PRN PO CONSTIPATION; Start 07/11/18 at 20:00 Lactulose (Enulose) 20 gm DAILY PRN PO CONSTIPATION; Start 07/11/18 at 20:00 Bisacodyl (Dulcolax Supp) 10 mg DAILY PRN [place] CONSTIPATION; Start 07/11/18 at 20:00 Diagnostic Test (Pha) (Accu-Chek) 1 ea 02 XX Last administered on 07/14/18at 02:55; Admin Dose 1 EA; Start 07/12/18 at 02:00 Acetaminophen (Tylenol Tab) 650 mg Q4H PRN PO MILD PAIN(1-3)OR ELEVATED TEMP Last administered on 07/13/18at 11:35; Admin Dose 650 MG; Start 07/11/18 at 21:30 Amiodarone HCl (Cordarone) 200 mg DAILY PO Last administered on 07/14/18at 09:23; Admin Dose 200 MG; Start 07/12/18 at 09:00 Apixaban (Eliquis) 2.5 mg BID PO Last administered on 07/14/18 09:21; Admin Dose 2.5 MG; Start 07/11/18 at 21:00 Atorvastatin Calcium (Lipitor) 40 mg QHS PO Last administered on 07/13/18 20 :31; Admin Dose 40 MG; Start 07/11/18 at 21:00 Caspofungin 50 mg/ Sodium Chloride 250 ml @ 250 mls/hr Q24H IVPB Last administered on 07/13/18 16:16; Admin Dose 250 MLS/HR; Start 07/12/18 at 16:00 Clonidine (Catapres) 0.1 mg BID PRN PO SBP > 180 Last administered on 07/13/18 20:31; Admin Dose 0.1 MG; Start 07/11/18 at 21:30 Collagenase (Santyl) 1 applic DAILY TOP Last administered on 07/14/18 09:25; Admin Dose 1 APPLIC; Start 07/12/18 at 09:00 Epoetin Alejo-epbx (Retacrit) 6,000 unit TuThSa@1700 SC Last administered on 07/12/18 17:50; Admin Dose 6,000 UNIT; Start 07/12/18 at 17:00 Gabapentin (Neurontin) 300 mg HS PO Last administered on 07/13/18 20:32; Admin Dose 300 MG; Start 07/11/18 at 21:00 Acetaminophen/ Hydrocodone Bitart ([place] (5/325)) 1 tab Q4H PRN PO sever pain Last administered on 07/13/18 21:21; Admin Dose 1 TAB; Start 07/11/18 at 21:30 Insulin Aspart (Novolog Insulin Pen) NOVOLOG *MODERATE* ALGORITHM WITH MEALS BEDTIME SC Last administered on 07/14/18 12:08; Admin Dose 6 UNIT; Start 07/11/18 at 22:00 Insulin Aspart (Novolog Insulin Pen) 6 unit WITH MEALS SC Last administered on 07/14/18 12:08; Admin Dose 6 UNIT; Start 07/12/18 at 07:35 Lorazepam (Ativan) 0.5 mg Q8H PRN PO ANXIETY Last administered on 07/13/18 20:37; Admin Dose 0.5 MG; Start 07/11/18 at 21:30 Meropenem/Sodium Chloride 50 ml @ 100 mls/hr Q12 IVPB Last administered on 07/14/18at 09:22; Admin Dose 100 MLS/HR; Start 07/11/18 at 22:30 Miscellaneous Information (Pending Santyl Order For Wound Care) This patient green... PRN PRN XX WOUND CARE; Start 07/11/18 at 21:30 Morphine Sulfate (morphine) 6 mg Q4H PRN PO SEVERE PAIN LEVEL 7-10; Start 07/11/18 at 21:30 Ondansetron HCl (Zofran Inj) 4 mg Q4H PRN IV NAUSEA AND/OR VOMITING Last administered on 07/13/18at 20:37; Admin Dose 4 MG; Start 07/11/18 at 22:00 Pantoprazole (Protonix Tab) 40 mg DAILY@06 PO Last administered on 07/14/18at 06:53; Admin Dose 40 MG; Start 07/12/18 at 06:00 Vancomycin HCl (Vanco Iv Per Pharmacy) VANCOMYCIN PER PHARMACY PER PROTOCOL XX ; Start 07/11/18 at 22:00 Vancomycin HCl 250 ml @ 125 mls/hr Q48H IVPB Last administered on 07/14/18at 11:39; Admin Dose 125 MLS/HR; Start 07/12/18 at 11:00 Miscellaneous Information 1 ea NOTE XX ; Start 07/11/18 at 22:00 Glucose (Glutose) 15 gm Q15M PRN PO DECREASED GLUCOSE; Start 07/11/18 at 22:00 Glucose (Glutose) 22.5 gm Q15M PRN PO DECREASED GLUCOSE; Start 07/11/18 at 22:00 Dextrose (D50w Syringe) 25 ml Q15M PRN IV DECREASED GLUCOSE; Start 07/11/18 at 22:00 Dextrose (D50w Syringe) 50 ml Q15M PRN IV DECREASED GLUCOSE; Start 07/11/18 at 22:00 Glucagon (Glucagen) 1 mg Q15M PRN IM DECREASED GLUCOSE; Start 07/11/18 at 22:00 Glucose (Glutose) 15 gm Q15M PRN BUCCAL DECREASED GLUCOSE; Start 07/11/18 at 22:00 Miscellaneous Information (Pending Santyl Order For Wound Care) This patient green... PRN PRN XX WOUND CARE; Start 07/12/18 at 00:00 Ascorbic Acid (Vitamin C) 250 mg DAILY PO Last administered on 07/14/18at 09:21; Admin Dose 250 MG; Start 07/13/18 at 09:00 Folic Acid (Folic Acid) 1 mg DAILY PO Last administered on 07/14/18at 09:30; Admin Dose 1 MG; Start 07/13/18 at 09:00 Lactobacillus Acidophilus/ Rhamnosus (Culturelle) 1 cap BID PO Last admini stered on 07/14/18at 09:21; Admin Dose 1 CAP; Start 07/13/18 at 21:00 Insulin Glargine (Lantus) 40 units DAILY SC ; Start 07/15/18 at 09:00 Multivit/Ca Carb/ B Cmplx/FA/Prenat (Kandace-Juan José) 1 tab DAILY PO ; Start 07/15/18 at 09:00 BARBARA ORDAZ NP Jul 14, 2018 14:35
[2018-07-14] MEDS: metroNIDAZOLE 500 MG TAB PO SCH ×2 (15:27→21:02)
[2018-07-14] MEDS: CASPOFUNGIN 50 MG in SOD CHLORIDE 0.9% 250 ML IVPB SCH (15:28)
[2018-07-14] MEDS ORDERED: LIDOCAINE 1% (MPF) 5 ML VIAL SC ONE (15:30)
[2018-07-14 20:06] VITALS: BP 136/65; PULSE 78; RESP 18
[2018-07-14] MEDS: GABAPENTIN 300 MG CAP PO SCH (20:59)
[2018-07-14] MEDS: ATORVASTATIN 40 MG TAB PO SCH (20:59)
[2018-07-14] MEDS: LORAZEPAM 0.5 MG TAB PO PRN (21:06)
[2018-07-15] MEDS: ACCU-CHEK XX SCH (02:00)
[2018-07-15 04:46] VITALS: BP 140/68; PULSE 82; RESP 18
[2018-07-15] MEDS: PANTOPRAZOLE (EC) 40 MG TAB PO SCH (06:17)
[2018-07-15] MEDS: metroNIDAZOLE 500 MG TAB PO SCH ×3 (06:17→20:59)
[2018-07-15 07:00] VITALS: BP 135/62; PULSE 75; RESP 18
[2018-07-15] MEDS: INSULIN ASPART [NOVOLOG] 3 ML PEN SC SCH ×7 (07:35→21:00)
[2018-07-15] MEDS: MEROPENEM 500MG/50 ML (PMX) 50 ML IVPB SCH (09:22)
[2018-07-15] MEDS: COLLAGENASE 5 GM (UD JAR) TOP SCH (09:24)
[2018-07-15] MEDS: ASCORBIC ACID 250 MG TAB PO SCH (09:24)
[2018-07-15] MEDS: LACTOBACILLUS RHAMNOSUS CAP PO SCH ×2 (09:24→20:52)
[2018-07-15] MEDS: INSULIN GLARGINE [LANTus] (100 UNITS/ML) SYG SC SCH (09:24)
[2018-07-15] MEDS: FOLIC ACID 1 MG TAB PO SCH (09:24)
[2018-07-15] MEDS: MULTIVIT/CA CARB/B CMPLX/FA TAB PO SCH (09:24)
[2018-07-15] MEDS: APIXABAN 5 MG TABLET PO SCH ×2 (09:24→20:51)
[2018-07-15] MEDS: BALSAM PERU/CASTOR OIL 60 GM TUBE TOP SCH ×2 (09:25→20:53)
[2018-07-15] MEDS: AMIODARONE 200 MG TAB PO SCH (09:25)
--- NOTE | 2018-07-15 10:48 | PN ---
Date/Time of Note Date/Time of Note DATE: 07/15/18 TIME: 10:46 Subjective Encouragement for activities Objective Vital Signs Date Temp Pulse Resp B/P (MAP) Pulse Ox O2 O2 Flow FiO2 Time Delivery Rate 07/15/18 98.0 75 18 135/62 96 Room Air 07:00 (86) 07/14/18 2.0 20:15 Intake and Output 07/14/18 07/14/18 07/15/18 1515:00 23:00 07:00 IntakeIntake Total 300 ml 850 ml 750 ml OutputOutput Total 1150 ml 600 ml BalanceBalance -850 ml 250 ml 750 ml Exam pulm-cta abd-soft mod wheelchair propulsion Results/Medications Result Diagram: 07/15/1861407/15/18614 Results 24 hrs Laboratory Tests Test 07/14/18 11:45 07/14/18 17:14 07/14/18 20:56 07/15/18 06:15 Bedside Glucose 233 H 297 H 164 White Blood Count 14.5 #H Red Blood Count 2.90 L Hemoglobin 8.0 L Hematocrit 26.4 L Mean Corpuscular 91.0 Volume Mean Corpuscular 27.6 L Hemoglobin Mean Corpuscular 30.3 L Hemoglobin Concent Red Cell 15.4 H Distribution Width Platelet Count 390 Mean Platelet Volume 10.0 Immature 0.800 H Granulocytes % Neutrophils % 79.9 H Lymphocytes % 10.8 L Monocytes % 6.5 Eosinophils % 1.7 Basophils % 0.3 Nucleated Red Blood 0.0 Cells % Immature 0.120 H Granulocytes # Neutrophils # 11.6 H Lymphocytes # 1.6 Monocytes # 1.0 H Eosinophils # 0.2 Basophils # 0.1 Nucleated Red Blood 0.0 Cells # Sodium Level 139 Potassium Level 4.9 Chloride Level 104 Carbon Dioxide Level 31 Anion Gap 4 L Blood Urea Nitrogen 51 H Creatinine 1.32 H Est Glomerular Filtrat Rate mL/min Glucose Level 100 # Calcium Level 8.5 B-Type Natriuretic 7100 H Peptide Test 07/15/18 07:49 Bedside Glucose 116 Medications Current Medications Magnesium Hydroxide (Milk Of Mag) 30 ml BID PRN PO CONSTIPATION; Start 07/11/18 at 20:00 Lactulose (Enulose) 20 gm DAILY PRN PO CONSTIPATION; Start 07/11/18 at 20:00 Bisacodyl (Dulcolax Supp) 10 mg DAILY PRN [place] CONSTIPATION; Start 07/11/18 at 20:00 Diagnostic Test (Pha) (Accu-Chek) 1 ea 02 XX Last administered on 07/14/18 02:55; Admin Dose 1 EA; Start 07/12/18 at 02:00 Acetaminophen (Tylenol Tab) 650 mg Q4H PRN PO MILD PAIN(1-3)OR ELEVATED TEMP Last administered on 07/13/18 11:35; Admin Dose 650 MG; Start 07/11/18 at 21:30 Amiodarone HCl (Cordarone) 200 mg DAILY PO Last administered on 07/15/18 09:25; Admin Dose 200 MG; Start 07/12/18 at 09:00 Apixaban (Eliquis) 2.5 mg BID PO Last administered on 07/15/18 09:24; Admin Dose 2.5 MG; Start 07/11/18 at 21:00 Atorvastatin Calcium (Lipitor) 40 mg QHS PO Last administered on 07/14/18 20:59; Admin Dose 40 MG; Start 07/11/18 at 21:00 Caspofungin 50 mg/ Sodium Chloride 250 ml @ 250 mls/hr Q24H IVPB Last administered on 07/14/18 15:28; Admin Dose 250 MLS/HR; Start 07/12/18 at 16:00 Clonidine (Catapres) 0.1 mg BID PRN PO SBP > 180 Last administered on 07/13/18 20:31; Admin Dose 0.1 MG; Start 07/11/18 at 21:30 Collagenase (Santyl) 1 applic DAILY TOP Last administered on 07/15/18 09:24; Admin Dose 1 APPLIC; Start 07/12/18 at 09:00 Epoetin Alejo-epbx (Retacrit) 6,000 unit TuThSa@1700 SC Last administered on 07/12/18 17:50; Admin Dose 6,000 UNIT; Start 07/12/18 at 17:00 Gabapentin (Neurontin) 300 mg HS PO Last administered on 07/14/18 20:59; Admin Dose 300 MG; Start 07/11/18 at 21:00 Acetaminophen/ Hydrocodone Bitart ([place] (5/325)) 1 tab Q4H PRN PO sever pain Last administered on 4/14/19at 21:21; Admin Dose 1 TAB; Start 07/11/18 at 21:30 Insulin Aspart (Novolog Insulin Pen) NOVOLOG *MODERATE* ALGORITHM WITH MEALS BEDTIME SC Last administered on 07/14/18 17:29; Admin Dose 8 UNIT; Start 07/11/18 at 22:00 Insulin Aspart (Novolog Insulin Pen) 6 unit WITH MEALS SC Last administered on 07/15/18 09:23; Admin Dose 6 UNIT; Start 07/12/18 at 07:35 Lorazepam (Ativan) 0.5 mg Q8H PRN PO ANXIETY Last administered on 07/14/18 21:06; Admin Dose 0.5 MG; Start 07/11/18 at 21:30 Meropenem/Sodium Chloride 50 ml @ 100 mls/hr Q12 IVPB Last administered on 07/15/18 09:22; Admin Dose 100 MLS/HR; Start 07/11/18 at 22:30 Miscellaneous Information (Pending [facility] Order For Wound Care) This patient green... PRN PRN XX WOUND CARE; Start 07/11/18 at 21:30 Morphine Sulfate (morphine) 6 mg Q4H PRN PO SEVERE PAIN LEVEL 7-10; Start 07/11/18 at 21:30 Ondansetron HCl (Zofran Inj) 4 mg Q4H PRN IV NAUSEA AND/OR VOMITING Last administered on 07/13/18at 20:37; Admin Dose 4 MG; Start 07/11/18 at 22:00 Pantoprazole (Protonix Tab) 40 mg DAILY@06 PO Last administered on 07/15/18 06:17; Admin Dose 40 MG; Start 07/12/18 at 06:00 Vancomycin HCl (Vanco Iv Per Pharmacy) VANCOMYCIN PER PHARMACY PER PROTOCOL XX ; Start 07/11/18 at 22:00 Vancomycin HCl 250 ml @ 125 mls/hr Q48H IVPB Last administered on 07/14/18at 11:39; Admin Dose 125 MLS/HR; Start 07/12/18 at 11:00 Miscellaneous Information 1 ea NOTE XX ; Start 07/11/18 at 22:00 Glucose (Glutose) 15 gm Q15M PRN PO DECREASED GLUCOSE; Start 07/11/18 at 22:00 Glucose (Glutose) 22.5 gm Q15M PRN PO DECREASED GLUCOSE; Start 07/11/18 at 22:00 Dextrose (D50w Syringe) 25 ml Q15M PRN IV DECREASED GLUCOSE; Start 07/11/18 at 22:00 Dextrose (D50w Syringe) 50 ml Q15M PRN IV DECREASED GLUCOSE; Start 07/11/18 at 22:00 Glucagon (Glucagen) 1 mg Q15M PRN IM DECREASED GLUCOSE; Start 07/11/18 at 22:00 Glucose (Glutose) 15 gm Q15M PRN BUCCAL DECREASED GLUCOSE; Start 07/11/18 at 22:00 Miscellaneous Information (Pending Santyl Order For Wound Care) This patient green... PRN PRN XX WOUND CARE; Start 07/12/18 at 00:00 Ascorbic Acid (Vitamin C) 250 mg DAILY PO Last administered on 07/15/18 09:24; Admin Dose 250 MG; Start 07/13/18 at 09:00 Folic Acid (Folic Acid) 1 mg DAILY PO Last administered on 07/15/18 09:24; Admin Dose 1 MG; Start 07/13/18 at 09:00 Lactobacillus Acidophilus/ Rhamnosus (Culturelle) 1 cap BID PO Last administered on 07/15/18 09:24; Admin Dose 1 CAP; Start 07/13/18 at 21:00 Insulin Glargine (Lantus) 40 units DAILY SC Last administered on 07/15/18 09:24; Admin Dose 40 UNITS; Start 07/15/18 at 09:00 Multivit/Ca Carb/ B Cmplx/FA/Prenat (Kandace-Juan José) 1 tab DAILY PO Last administered on 07/15/18 09:24; Admin Dose 1 TAB; Start 07/15/18 at 09:00 Metronidazole (Flagyl) 500 mg Q8 PO Last administered on 07/15/18 06:17; Admin Dose 500 MG; Start 07/14/18 at 15:00 Assessment/Plan Additional Assessment/Plan Rehab- Cardiac debility secondary to congestive heart failure, cardiomyopathy. Activities as tolerated Atrial fibrillation. Left lower extremity thrombus status post thrombectomy. Acute on chronic kidney injury along with history of renal cancer and partial nephrectomy. Leukocytosis secondary to systemic inflammatory response. Anemia. Hypertension. Urinary tract infection. Left lower extremity cellulitis. Dysphagia-followed by speech Integ- Right heel DTI, right buttock un-stageable, left heel with blanchable erythema- offloading, increase nutrition and mobility. GOSIA CASTELLON MD Jul 15, 2018 10:48
--- NOTE | 2018-07-15 11:42 | CONS ---
Assessment/Plan Assessment/Plan Hospital Course (Demo Recall) All noted, no acute events overnight, no fevers WBC 14.5 Microbiology: Urine culture persistently growing Carmella species, not albicans LLE US revealed 5.0 cm debris containing collection in the superficial soft tissues of the left inguinal region. Finding could reflect a hematoma. Superim posed infection or abscess is not excluded. Antimicrobials: Cancidas Merrem Vancomycin Flagyl Physical examination: This is obese well-developed Khmer woman who is in no distress. Head atraumatic normocephalic sclera nonicteric. Neck is supple. Chest rise symmetrical breath sounds clear, diminished bases. Heart: S1-S2. Abdomen soft, bowel sounds present. Extremities without cyanosis. Left lower extremity swollen with calf erythema Assessment: 1. Systemic inflammatory response syndrome with ongoing leukocytosis 2. C. difficile colitis 3. Urinary tract infection 4. Urinary retention, s/p Odonnell 5. Occlusive left common femoral artery status post thrombectomy 6. Coronary artery disease, history of CABG 7. Paroxysmal atrial fibrillation 8. Diabetes 9. Abnormal 2D echo, rule out vegetations versus thrombus versus tumor on the right atrium 10. History of renal cell carcinoma status post partial nephrectomy Plan: Clinically unchanged, will add oral vancomycin, continue Flagyl, and change antibiotics to IV daptomycin and Invanz once a day, continue abx to complete 6 weeks, pending PICC DW staff Consultation Date/Type/Reason Admit Date/Time Jul 11, 2018 at 19:45 Initial Consult Date Type of Consult id Date/Time of Note DATE: 07/15/18 TIME: 11:40 Exam/Review of Systems Exam Vitals Vital Signs Date Temp Pulse Resp B/P (MAP) Pulse Ox O2 O2 Flow FiO2 Time Delivery Rate 07/15/18 98.0 75 18 135/62 96 Room Air 07:00 (86) 07/14/18 2.0 20:15 Intake and Output 07/14/18 07/14/18 07/15/18 1414:59 22:59 06:59 IntakeIntake Total 300 ml 850 ml 750 ml OutputOutput Total 1150 ml 600 ml BalanceBalance -850 ml 250 ml 750 ml Results Result Diagram: 07/15/18 0615 07/15/18 0615 Results 24hrs Laboratory Tests Test 07/14/18 11:45 07/14/18 17:14 07/14/18 20:56 07/15/18 06:15 Bedside Glucose 233 H 297 H 164 White Blood Count 14.5 #H Red Blood Count 2.90 L Hemoglobin 8.0 L Hematocrit 26.4 L Mean Corpuscular 91.0 Volume Mean Corpuscular 27.6 L Hemoglobin Mean Corpuscular 30.3 L Hemoglobin Concent Red Cell 15.4 H Distribution Width Platelet Count 390 Mean Platelet Volume 10.0 Immature 0.800 H Granulocytes % Neutrophils % 79.9 H Lymphocytes % 10.8 L Monocytes % 6.5 Eosinophils % 1.7 Basophils % 0.3 Nucleated Red Blood 0.0 Cells % Immature 0.120 H Granulocytes # Neutrophils # 11.6 H Lymphocytes # 1.6 Monocytes # 1.0 H Eosinophils # 0.2 Basophils # 0.1 Nucleated Red Blood 0.0 Cells # Sodium Level 139 Potassium Level 4.9 Chloride Level 104 Carbon Dioxide Level 31 Anion Gap 4 L Blood Urea Nitrogen 51 H Creatinine 1.32 H Est Glomerular Filtrat Rate mL/min Glucose Level 100 # Calcium Level 8.5 B-Type Natriuretic 7100 H Peptide Test 07/15/18 07:49 Bedside Glucose 116 Medications Medication Current Medications Magnesium Hydroxide (Milk Of Mag) 30 ml BID PRN PO CONSTIPATION; Start 07/11/18 at 20:00 Lactulose (Enulose) 20 gm DAILY PRN PO CONSTIPATION; Start 07/11/18 at 20:00 Bisacodyl (Dulcolax Supp) 10 mg DAILY PRN [place] CONSTIPATION; Start 07/11/18 at 20:00 Diagnostic Test (Pha) (Accu-Chek) 1 ea 02 XX Last administered on 07/14/18at 02:55; Admin Dose 1 EA; Start 07/12/18 at 02:00 Acetaminophen (Tylenol Tab) 650 mg Q4H PRN PO MILD PAIN(1-3)OR ELEVATED TEMP Last administered on 07/13/18at 11:35; Admin Dose 650 MG; Start 07/11/18 at 21:30 Amiodarone HCl (Cordarone) 200 mg DAILY PO Last administered on 07/15/18at 09:25; Admin Dose 200 MG; Start 07/12/18 at 09:00 Apixaban (Eliquis) 2.5 mg BID PO Last administered on 07/15/18at 09:24; Admin Dose 2.5 MG; Start 07/11/18 at 21:00 Atorvastatin Calcium (Lipitor) 40 mg QHS PO Last administered on 07/14/18 20:59; Admin Dose 40 MG; Start 07/11/18 at 21:00 Caspofungin 50 mg/ Sodium Chloride 250 ml @ 250 mls/hr Q24H IVPB Last administered on 07/14/18 15:28; Admin Dose 250 MLS/HR; Start 07/12/18 at 16:00 Clonidine (Catapres) 0.1 mg BID PRN PO SBP > 180 Last administered on 07/13/18 20:31; Admin Dose 0.1 MG; Start 07/11/18 at 21:30 Collagenase (Santyl) 1 applic DAILY TOP Last administered on 07/15/18 09:24; Admin Dose 1 APPLIC; Start 07/12/18 at 09:00 Epoetin Alejo-epbx (Retacrit) 6,000 unit TuThSa@1700 SC Last administered on 07/12/18 17:50; Admin Dose 6,000 UNIT; Start 07/12/18 at 17:00 Gabapentin (Neurontin) 300 mg HS PO Last administered on 07/14/18 20:59; Admin Dose 300 MG; Start 07/11/18 at 21:00 Insulin Aspart (Novolog Insulin Pen) NOVOLOG *MODERATE* ALGORITHM WITH MEALS BEDTIME SC Last administered on 07/14/18 17:29; Admin Dose 8 UNIT; Start 07/11/18 at 22:00 Insulin Aspart (Novolog Insulin Pen) 6 unit WITH MEALS SC Last administered on 07/15/18 09:23; Admin Dose 6 UNIT; Start 07/12/18 at 07:35 Lorazepam (Ativan) 0.5 mg Q8H PRN PO ANXIETY Last administered on 07/14/18 21 :06; Admin Dose 0.5 MG; Start 07/11/18 at 21:30 Meropenem/Sodium Chloride 50 ml @ 100 mls/hr Q12 IVPB Last administered on 07/15/18 09:22; Admin Dose 100 MLS/HR; Start 07/11/18 at 22:30 Miscellaneous Information (Pending Santyl Order For Wound Care) This patient green... PRN PRN XX WOUND CARE; Start 07/11/18 at 21:30 Ondansetron HCl (Zofran Inj) 4 mg Q4H PRN IV NAUSEA AND/OR VOMITING Last admini stered on 07/13/18at 20:37; Admin Dose 4 MG; Start 07/11/18 at 22:00 Pantoprazole (Protonix Tab) 40 mg DAILY@06 PO Last administered on 07/15/18at 06:17; Admin Dose 40 MG; Start 07/12/18 at 06:00 Vancomycin HCl (Vanco Iv Per Pharmacy) VANCOMYCIN PER PHARMACY PER PROTOCOL XX ; Start 07/11/18 at 22:00 Vancomycin HCl 250 ml @ 125 mls/hr Q48H IVPB Last administered on 07/14/18at 11:39; Admin Dose 125 MLS/HR; Start 07/12/18 at 11:00 Miscellaneous Information 1 ea NOTE XX ; Start 07/11/18 at 22:00 Glucose (Glutose) 15 gm Q15M PRN PO DECREASED GLUCOSE; Start 07/11/18 at 22:00 Glucose (Glutose) 22.5 gm Q15M PRN PO DECREASED GLUCOSE; Start 07/11/18 at 22:00 Dextrose (D50w Syringe) 25 ml Q15M PRN IV DECREASED GLUCOSE; Start 07/11/18 at 22:00 Dextrose (D50w Syringe) 50 ml Q15M PRN IV DECREASED GLUCOSE; Start 07/11/18 at 22:00 Glucagon (Glucagen) 1 mg Q15M PRN IM DECREASED GLUCOSE; Start 07/11/18 at 22:00 Glucose (Glutose) 15 gm Q15M PRN BUCCAL DECREASED GLUCOSE; Start 07/11/18 at 22:00 Miscellaneous Information (Pending [facility] Order For Wound Care) This patient green... PRN PRN XX WOUND CARE; Start 07/12/18 at 00:00 Ascorbic Acid (Vitamin C) 250 mg DAILY PO Last administered on 07/15/18at 09:24; Admin Dose 250 MG; Start 07/13/18 at 09:00 Folic Acid (Folic Acid) 1 mg DAILY PO Last administered on 07/15/18 09:24; Admin Dose 1 MG; Start 07/13/18 at 09:00 Lactobacillus Acidophilus/ Rhamnosus (Culturelle) 1 cap BID PO Last administered on 07/15/18at 09:24; Admin Dose 1 CAP; Start 07/13/18 at 21:00 Insulin Glargine (Lantus) 40 units DAILY SC Last administered on 07/15/18at 09:24; Admin Dose 40 UNITS; Start 07/15/18 at 09:00 Multivit/Ca Carb/ B Cmplx/FA/Prenat (Kandace-Juan José) 1 tab DAILY PO Last administered on 07/15/18at 09:24; Admin Dose 1 TAB; Start 07/15/18 at 09:00 Metronidazole (Flagyl) 500 mg Q8 PO Last administered on 07/15/18at 06:17; Admin Dose 500 MG; Start 07/14/18 at 15:00 Acetaminophen/ Hydrocodone Bitart ([place] (5/325)) 0.5 tab Q4H PRN PO PAIN LEVEL 6-10; Start 07/15/18 at 13:30 BARBARA ORDAZ ACQUISITION ANALYST Jul 15, 2018 11:42
[2018-07-15 14:00] VITALS: BP 146/62; PULSE 78; RESP 18
[2018-07-15] MEDS: CASPOFUNGIN 50 MG in SOD CHLORIDE 0.9% 250 ML IVPB SCH (16:16)
[2018-07-15] MEDS: EPOETIN ALFA-EPBX (NON-ESRD) 3,000 UNIT/ML VIAL SC SCH (16:17)
--- NOTE | 2018-07-15 17:32 | CONS ---
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 -Diuretics as needed -Continue to hold any nephrotoxic medications, patient being followed by nephrology. Consultation Date/Type/Reason Admit Date/Time Jul 11, 2018 at 19:45 Initial Consult Date Type of Consult Cardiology Date/Time of Note DATE: 07/15/18 TIME: 17:31 24 HR Interval Summary Free Text/Dictation No shortness of breath, palpitations. Complains of fatigue Exam/Review of Systems Vital Signs Vitals Vital Signs Date Temp Pulse Resp B/P (MAP) Pulse Ox O2 O2 Flow FiO2 Time Delivery Rate 07/15/18 98.0 78 18 146/62 98 Room Air 14:00 (90) 07/15/18 2.0 08:00 Intake and Output 07/14/18 07/14/18 07/15/18 1515:00 23:00 07:00 IntakeIntake Total 300 ml 850 ml 750 ml OutputOutput Total 1150 ml 600 ml BalanceBalance -850 ml 250 ml 750 ml Exam Constitutional: alert, oriented (No apparent distress) Head: normocephalic Respiratory: other (Coarse breath sounds bilaterally, no wheezing) Cardiovascular: regular rate and rhythm (S1-S2 heard) Gastrointestinal: soft, non-tender, bowel sounds Extremities: edema Labs Result Diagram: 07/15/1815 07/15/1815 Results 24hrs Laboratory Tests Test 07/14/18 20:56 07/15/18 06:15 07/15/18 07:49 07/15/18 12:11 Bedside Glucose 164 116 208 White Blood Count 14.5 #H Red Blood Count 2.90 L Hemoglobin 8.0 L Hematocrit 26.4 L Mean Corpuscular 91.0 Volume Mean Corpuscular 27.6 L Hemoglobin Mean Corpuscular 30.3 L Hemoglobin Concent Red Cell 15.4 H Distribution Width Platelet Count 390 Mean Platelet Volume 10.0 Immature 0.800 H Granulocytes % Neutrophils % 79.9 H Lymphocytes % 10.8 L Monocytes % 6.5 Eosinophils % 1.7 Basophils % 0.3 Nucleated Red Blood 0.0 Cells % Immature 0.120 H Granulocytes # Neutrophils # 11.6 H Lymphocytes # 1.6 Monocytes # 1.0 H Eosinophils # 0.2 Basophils # 0.1 Nucleated Red Blood 0.0 Cells # Sodium Level 139 Potassium Level 4.9 Chloride Level 104 Carbon Dioxide Level 31 Anion Gap 4 L Blood Urea Nitrogen 51 H Creatinine 1.32 H Est Glomerular Filtrat Rate mL/min Glucose Level 100 # Calcium Level 8.5 B-Type Natriuretic 7100 H Peptide Medications Medications Current Medications Magnesium Hydroxide (Milk Of Mag) 30 ml BID PRN PO CONSTIPATION; Start 07/11/18 at 20:00 Lactulose (Enulose) 20 gm DAILY PRN PO CONSTIPATION; Start 07/11/18 at 20:00 Bisacodyl (Dulcolax Supp) 10 mg DAILY PRN [place] CONSTIPATION; Start 07/11/18 at 20:00 Diagnostic Test (Pha) (Accu-Chek) 1 ea 02 XX Last administered on 07/14/18at 02:55; Admin Dose 1 EA; Start 07/12/18 at 02:00 Acetaminophen (Tylenol Tab) 650 mg Q4H PRN PO MILD PAIN(1-3)OR ELEVATED TEMP Last administered on 07/13/18at 11:35; Admin Dose 650 MG; Start 07/11/18 at 21:30 Amiodarone HCl (Cordarone) 200 mg DAILY PO Last administered on 07/15/18 09:25; Admin Dose 200 MG; Start 07/12/18 at 09:00 Apixaban (Eliquis) 2.5 mg BID PO Last administered on 07/15/18 09:24; Admin Dose 2.5 MG; Start 07/11/18 at 21:00 Atorvastatin Calcium (Lipitor) 40 mg QHS PO Last administered on 07/14/18 20:59; Admin Dose 40 MG; Start 07/11/18 at 21:00 Caspofungin 50 mg/ Sodium Chloride 250 ml @ 250 mls/hr Q24H IVPB Last administered on 07/15/18 16:16; Admin Dose 250 MLS/HR; Start 07/12/18 at 16:00 Clonidine (Catapres) 0.1 mg BID PRN PO SBP > 180 Last administered on 07/13/18 20:31; Admin Dose 0.1 MG; Start 07/11/18 at 21:30 Collagenase (Santyl) 1 applic DAILY TOP Last administered on 07/15/18 09:24; Admin Dose 1 APPLIC; Start 07/12/18 at 09:00 Epoetin Alejo-epbx (Retacrit) 6,000 unit TuThSa@1700 SC Last administered on 07/15/18 16:17; Admin Dose 6,000 UNIT; Start 07/12/18 at 17:00 Gabapentin (Neurontin) 300 mg HS PO Last administered on 07/14/18 20:59; Admin Dose 300 MG; Start 07/11/18 at 21:00 Insulin Aspart (Novolog Insulin Pen) NOVOLOG *MODERATE* ALGORITHM WITH MEALS BEDTIME SC Last administered on 07/15/18 12:33; Admin Dose 4 UNIT; Start 07/11/18 at 22:00 Insulin Aspart (Novolog Insulin Pen) 6 unit WITH MEALS SC Last administered on 07/15/18 12:34; Admin Dose 6 UNIT; Start 07/12/18 at 07:35 Lorazepam (Ativan) 0.5 mg Q8H PRN PO ANXIETY Last administered on 07/14/18 21:06; Admin Dose 0.5 MG; Start 07/11/18 at 21:30 Miscellaneous Information (Pending Santyl Order For Wound Care) This patient green... PRN PRN XX WOUND CARE; Start 07/11/18 at 21:30 Ondansetron HCl (Zofran Inj) 4 mg Q4H PRN IV NAUSEA AND/OR VOMITING Last administered on 07/13/18 20:37; Admin Dose 4 MG; Start 07/11/18 at 22:00 Pantoprazole (Protonix Tab) 40 mg DAILY@06 PO Last administered on 07/15/18 06:17; Admin Dose 40 MG; Start 07/12/18 at 06:00 Miscellaneous Information 1 ea NOTE XX ; Start 07/11/18 at 22:00 Glucose (Glutose) 15 gm Q15M PRN PO DECREASED GLUCOSE; Start 07/11/18 at 22:00 Glucose (Glutose) 22.5 gm Q15M PRN PO DECREASED GLUCOSE; Start 07/11/18 at 22:0 0 Dextrose (D50w Syringe) 25 ml Q15M PRN IV DECREASED GLUCOSE; Start 07/11/18 at 22:00 Dextrose (D50w Syringe) 50 ml Q15M PRN IV DECREASED GLUCOSE; Start 07/11/18 at 22:00 Glucagon (Glucagen) 1 mg Q15M PRN IM DECREASED GLUCOSE; Start 07/11/18 at 22:00 Glucose (Glutose) 15 gm Q15M PRN BUCCAL DECREASED GLUCOSE; Start 07/11/18 at 22:00 Miscellaneous Information (Pending Santyl Order For Wound Care) This patient green... PRN PRN XX WOUND CARE; Start 07/12/18 at 00:00 Ascorbic Acid (Vitamin C) 250 mg DAILY PO Last administered on 07/15/18at 09:24; Admin Dose 250 MG; Start 07/13/18 at 09:00 Folic Acid (Folic Acid) 1 mg DAILY PO Last administered on 07/15/18 09:24; Admin Dose 1 MG; Start 07/13/18 at 09:00 Lactobacillus Acidophilus/ Rhamnosus (Culturelle) 1 cap BID PO Last administered on 07/15/18 09:24; Admin Dose 1 CAP; Start 07/13/18 at 21:00 Insulin Glargine (Lantus) 40 units DAILY SC Last administered on 07/15/18 09:24; Admin Dose 40 UNITS; Start 07/15/18 at 09:00 Multivit/Ca Carb/ B Cmplx/FA/Prenat (Kandace-Juan José) 1 tab DAILY PO Last administered on 07/15/18at 09:24; Admin Dose 1 TAB; Start 07/15/18 at 09:00 Metronidazole (Flagyl) 500 mg Q8 PO Last administered on 07/15/18at 14:07; Admin Dose 500 MG; Start 07/14/18 at 15:00 Acetaminophen/ Hydrocodone Bitart ([place] (5/325)) 0.5 tab Q4H PRN PO PAIN LEVEL 6-10; Start 07/15/18 at 13:30 Daptomycin 450 mg/ Sodium Chloride 100 ml @ 200 mls/hr Q24H IVPB ; Start 07/15/18 at 18:00 Ertapenem 1 gm/ Sodium Chloride 100 ml @ 200 mls/hr Q24H IVPB ; Start 07/15/18 at 16:00 Vancomycin HCl (Vancomycin Oral Syringe) 250 mg Q6 PO ; Start 07/15/18 at 18:00 Alex Chávez DO Jul 15, 2018 17:32
[2018-07-15] MEDS: VANCOMYCIN HCL 250 MG/5ML POSYG PO SCH ×2 (17:37→23:32)
[2018-07-15] MEDS: DAPTOMYCIN 450 MG in SOD CHLORIDE 0.9% 100 ML IVPB SCH (17:49)
[2018-07-15 20:34] VITALS: BP 140/62; PULSE 83; RESP 18
[2018-07-15] MEDS: ATORVASTATIN 40 MG TAB PO SCH (20:52)
[2018-07-15] MEDS: GABAPENTIN 300 MG CAP PO SCH (20:52)
[2018-07-15] MEDS: ERTAPENEM SODIUM 1 GM in SOD CHLORIDE 0.9% 100 ML IVPB SCH (20:56)
[2018-07-15] MEDS: HYDROCODONE/APAP (5/325) TAB PO PRN (22:55)
[2018-07-16] MEDS: ACCU-CHEK XX SCH (02:00)
[2018-07-16 04:06] VITALS: BP 138/64; PULSE 76; RESP 18
[2018-07-16] MEDS: HYDROCODONE/APAP (5/325) TAB PO PRN (04:28)
[2018-07-16] MEDS: metroNIDAZOLE 500 MG TAB PO SCH ×3 (06:15→20:36)
[2018-07-16] MEDS: PANTOPRAZOLE (EC) 40 MG TAB PO SCH (06:15)
[2018-07-16] MEDS: VANCOMYCIN HCL 250 MG/5ML POSYG PO SCH ×3 (06:15→17:42)
[2018-07-16] MEDS: INSULIN ASPART [NOVOLOG] 3 ML PEN SC SCH ×7 (07:35→20:38)
[2018-07-16 09:00] VITALS: BP 140/68; PULSE 79; RESP 16
[2018-07-16] MEDS: AMIODARONE 200 MG TAB PO SCH (09:15)
[2018-07-16] MEDS: ASCORBIC ACID 250 MG TAB PO SCH (09:15)
[2018-07-16] MEDS: MULTIVIT/CA CARB/B CMPLX/FA TAB PO SCH (09:15)
[2018-07-16] MEDS: APIXABAN 5 MG TABLET PO SCH ×2 (09:15→20:37)
[2018-07-16] MEDS: LACTOBACILLUS RHAMNOSUS CAP PO SCH ×2 (09:15→20:37)
[2018-07-16] MEDS: INSULIN GLARGINE [LANTus] (100 UNITS/ML) SYG SC SCH (09:22)
[2018-07-16] MEDS: COLLAGENASE 5 GM (UD JAR) TOP SCH (09:22)
[2018-07-16] MEDS: BALSAM PERU/CASTOR OIL 60 GM TUBE TOP SCH ×2 (09:24→20:38)
--- NOTE | 2018-07-16 12:21 | PN ---
Date/Time of Note Date/Time of Note DATE: 07/16/18 TIME: 12:20 Subjective resting in bed Objective Vital Signs Date Temp Pulse Resp B/P (MAP) Pulse Ox O2 O2 Flow FiO2 Time Delivery Rate 07/16/18 Nasal 2.0 08:30 Cannula 07/16/18 98.8 76 18 138/64 97 04:06 (88) Intake and Output 07/15/18 07/15/18 07/16/18 1515:00 23:00 07:00 IntakeIntake Total 250 ml 1250 ml 800 ml OutputOutput Total 600 ml 500 ml BalanceBalance 250 ml 650 ml 300 ml Exam pulm-cta max/dep Results/Medications Result Diagram: 07/15/18 0615 07/16/18 0703 Results 24 hrs Laboratory Tests Test 07/15/18 17:35 07/15/18 20:44 07/16/18 07:03 07/16/18 07:45 Bedside Glucose 219 177 122 Blood Urea Nitrogen 47 H Creatinine 1.34 H Creatine Kinase 28 Medications Current Medications Magnesium Hydroxide (Milk Of Mag) 30 ml BID PRN PO CONSTIPATION; Start 07/11/18 at 20:00 Lactulose (Enulose) 20 gm DAILY PRN PO CONSTIPATION; Start 07/11/18 at 20:00 Bisacodyl (Dulcolax Supp) 10 mg DAILY PRN [place] CONSTIPATION; Start 07/11/18 at 20:00 Diagnostic Test (Pha) (Accu-Chek) 1 ea 02 XX Last administered on 07/14/18at 02:55; Admin Dose 1 EA; Start 07/12/18 at 02:00 Acetaminophen (Tylenol Tab) 650 mg Q4H PRN PO MILD PAIN(1-3)OR ELEVATED TEMP Last administered on 07/13/18at 11:35; Admin Dose 650 MG; Start 07/11/18 at 21:30 Amiodarone HCl (Cordarone) 200 mg DAILY PO Last administered on 07/16/18at 09:15; Admin Dose 200 MG; Start 07/12/18 at 09:00 Apixaban (Eliquis) 2.5 mg BID PO Last administered on 07/16/18at 09:15; Admin Dose 2.5 MG; Start 07/11/18 at 21:00 Atorvastatin Calcium (Lipitor) 40 mg QHS PO Last administered on 4/16/19at 20:52; Admin Dose 40 MG; Start 07/11/18 at 21:00 Caspofungin 50 mg/ Sodium Chloride 250 ml @ 250 mls/hr Q24H IVPB Last administered on 07/15/18 16:16; Admin Dose 250 MLS/HR; Start 07/12/18 at 16:00 Clonidine (Catapres) 0.1 mg BID PRN PO SBP > 180 Last administered on 07/13/18 20:31; Admin Dose 0.1 MG; Start 07/11/18 at 21:30 Collagenase (Santyl) 1 applic DAILY TOP Last administered on 07/16/18 09:22; Admin Dose 1 APPLIC; Start 07/12/18 at 09:00 Epoetin Alejo-epbx (Retacrit) 6,000 unit TuThSa@1700 SC Last administered on 07/15/18 16:17; Admin Dose 6,000 UNIT; Start 07/12/18 at 17:00 Gabapentin (Neurontin) 300 mg HS PO Last administered on 07/15/18 20:52; Admin Dose 300 MG; Start 07/11/18 at 21:00 Insulin Aspart (Novolog Insulin Pen) NOVOLOG *MODERATE* ALGORITHM WITH MEALS BEDTIME SC Last administered on 07/15/18 17:38; Admin Dose 4 UNIT; Start 07/11/18 at 22:00 Insulin Aspart (Novolog Insulin Pen) 6 unit WITH MEALS SC Last administered on 07/16/18 08:15; Admin Dose 6 UNIT; Start 07/12/18 at 07:35 Lorazepam (Ativan) 0.5 mg Q8H PRN PO ANXIETY Last administered on 07/14/18 21:06; Admin Dose 0.5 MG; Start 07/11/18 at 21:30 Miscellaneous Information (Pending Santyl Order For Wound Care) This patient green... PRN PRN XX WOUND CARE; Start 07/11/18 at 21:30 Ondansetron HCl (Zofran Inj) 4 mg Q4H PRN IV NAUSEA AND/OR VOMITING Last administered on 07/13/18 20:37; Admin Dose 4 MG; Start 07/11/18 at 22:00 Pantoprazole (Protonix Tab) 40 mg DAILY@06 PO Last administered on 07/16/18 06:15; Admin Dose 40 MG; Start 07/12/18 at 06:00 Miscellaneous Information 1 ea NOTE XX ; Start 07/11/18 at 22:00 Glucose (Glutose) 15 gm Q15M PRN PO DECREASED GLUCOSE; Start 07/11/18 at 22:00 Glucose (Glutose) 22.5 gm Q15M PRN PO DECREASED GLUCOSE; Start 07/11/18 at 22:00 Dextrose (D50w Syringe) 25 ml Q15M PRN IV DECREASED GLUCOSE; Start 07/11/18 at 22:00 Dextrose (D50w Syringe) 50 ml Q15M PRN IV DECREASED GLUCOSE; Start 07/11/18 at 22:00 Glucagon (Glucagen) 1 mg Q15M PRN IM DECREASED GLUCOSE; Start 07/11/18 at 22:00 Glucose (Glutose) 15 gm Q15M PRN BUCCAL DECREASED GLUCOSE; Start 07/11/18 at 22:00 Miscellaneous Information (Pending Santyl Order For Wound Care) This patient green... PRN PRN XX WOUND CARE; Start 07/12/18 at 00:00 Ascorbic Acid (Vitamin C) 250 mg DAILY PO Last administered on 07/16/18 09:15; Admin Dose 250 MG; Start 07/13/18 at 09:00 Folic Acid (Folic Acid) 1 mg DAILY PO Last administered on 07/15/18at 09:24; Admin Dose 1 MG; Start 07/13/18 at 09:00 Lactobacillus Acidophilus/ Rhamnosus (Culturelle) 1 cap BID PO Last administered on 07/16/18at 09:15; Admin Dose 1 CAP; Start 07/13/18 at 21:00 Insulin Glargine (Lantus) 40 units DAILY SC Last administered on 07/16/18at 09:22; Admin Dose 40 UNITS; Start 07/15/18 at 09:00 Multivit/Ca Carb/ B Cmplx/FA/Prenat (Kandace-Juan José) 1 tab DAILY PO Last administered on 07/16/18at 09:15; Admin Dose 1 TAB; Start 07/15/18 at 09:00 Metronidazole (Flagyl) 500 mg Q8 PO Last administered on 07/16/18at 06:15; Admin Dose 500 MG; Start 07/14/18 at 15:00 Acetaminophen/ Hydrocodone Bitart ([place] (5/325)) 0.5 tab Q4H PRN PO PAIN LEVEL 6-10 Last administered on 07/16/18at 04:28; Admin Dose 0.5 TAB; Start 07/15/18 at 13:30 Daptomycin 450 mg/ Sodium Chloride 100 ml @ 200 mls/hr Q24H IVPB Last administered on 07/15/18at 17:49; Admin Dose 200 MLS/HR; Start 07/15/18 at 18:00 Ertapenem 1 gm/ Sodium Chloride 100 ml @ 200 mls/hr Q24H IVPB Last administered on 07/15/18at 20:56; Admin Dose 200 MLS/HR; Start 07/15/18 at 16:00 Vancomycin HCl (Vancomycin Oral Syringe) 250 mg Q6 PO Last administered on 07/16/18at 06:15; Admin Dose 250 MG; Start 07/15/18 at 18:00 Assessment/Plan Additional Assessment/Plan Rehab- Cardiac debility secondary to congestive heart failure, cardiomyopathy. Activities as tolerated. patient with limited activity tolerance, will need lower level of care. GI- C dif- treatment started Atrial fibrillation. Left lower extremity thrombus status post thrombectomy. Acute on chronic kidney injury along with history of renal cancer and partial nephrectomy. Leukocytosis secondary to systemic inflammatory response. Anemia. Hypertension. Urinary tract infection. Left lower extremity cellulitis. Dysphagia-followed by speech Integ- Right heel DTI, right buttock un-stageable, left heel with blanchable erythema- offloading, increase nutrition and mobility. GOSIA CASTELLON MD Jul 16, 2018 12:21
[2018-07-16] MEDS: FOLIC ACID 1 MG TAB PO SCH (12:23)
--- NOTE | 2018-07-16 12:45 | CONS ---
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 -Diuretics as needed -Continue to hold any nephrotoxic medications, patient being followed by nephrology. Consultation Date/Type/Reason Admit Date/Time Jul 11, 2018 at 19:45 Initial Consult Date Type of Consult Cardiology Date/Time of Note DATE: 07/16/18 TIME: 12:43 24 HR Interval Summary Free Text/Dictation No shortness of breath, leg pain limits physical therapy Exam/Review of Systems Vital Signs Vitals Vital Signs Date Temp Pulse Resp B/P (MAP) Pulse Ox O2 O2 Flow FiO2 Time Delivery Rate 07/16/18 Nasal 2.0 08:30 Cannula 07/16/18 98.8 76 18 138/64 97 04:06 (88) Intake and Output 07/15/18 07/15/18 07/16/18 1515:00 23:00 07:00 IntakeIntake Total 250 ml 1250 ml 800 ml OutputOutput Total 600 ml 500 ml BalanceBalance 250 ml 650 ml 300 ml Exam Constitutional: alert, oriented (Undergoing physical therapy) Head: normocephalic Respiratory: other (Coarse breath sounds bilaterally, no wheezing) Cardiovascular: regular rate and rhythm (S1-S2 heard) Gastrointestinal: soft, non-tender, bowel sounds Extremities: edema Labs Result Diagram: 07/15/18 0615 07/16/18 0703 Results 24hrs Laboratory Tests Test 07/15/18 17:35 07/15/18 20:44 07/16/18 07:03 07/16/18 07:45 Bedside Glucose 219 177 122 Blood Urea Nitrogen 47 H Creatinine 1.34 H Creatine Kinase 28 Test 07/16/18 12:21 Bedside Glucose 246 H Medications Medications Current Medications Magnesium Hydroxide (Milk Of Mag) 30 ml BID PRN PO CONSTIPATION; Start 07/11/18 at 20:00 Lactulose (Enulose) 20 gm DAILY PRN PO CONSTIPATION; Start 07/11/18 at 20:00 Bisacodyl (Dulcolax Supp) 10 mg DAILY PRN [place] CONSTIPATION; Start 07/11/18 at 20:00 Diagnostic Test (Pha) (Accu-Chek) 1 ea 02 XX Last administered on 07/14/18 02:55; Admin Dose 1 EA; Start 07/12/18 at 02:00 Acetaminophen (Tylenol Tab) 650 mg Q4H PRN PO MILD PAIN(1-3)OR ELEVATED TEMP Last administered on 07/13/18 11:35; Admin Dose 650 MG; Start 07/11/18 at 21:30 Amiodarone HCl (Cordarone) 200 mg DAILY PO Last administered on 07/16/18 09:15; Admin Dose 200 MG; Start 07/12/18 at 09:00 Apixaban (Eliquis) 2.5 mg BID PO Last administered on 07/16/18 09:15; Admin Dose 2.5 MG; Start 07/11/18 at 21:00 Atorvastatin Calcium (Lipitor) 40 mg QHS PO Last administered on 07/15/18 20:52; Admin Dose 40 MG; Start 07/11/18 at 21:00 Caspofungin 50 mg/ Sodium Chloride 250 ml @ 250 mls/hr Q24H IVPB Last administered on 07/15/18 16:16; Admin Dose 250 MLS/HR; Start 07/12/18 at 16:00 Clonidine (Catapres) 0.1 mg BID PRN PO SBP > 180 Last administered on 07/13/18 20:31; Admin Dose 0.1 MG; Start 07/11/18 at 21:30 Collagenase (Santyl) 1 applic DAILY TOP Last administered on 07/16/18 09:22; Admin Dose 1 APPLIC; Start 07/12/18 at 09:00 Epoetin Alejo-epbx (Retacrit) 6,000 unit TuThSa@1700 SC Last administered on 07/15/18 16:17; Admin Dose 6,000 UNIT; Start 07/12/18 at 17:00 Gabapentin (Neurontin) 300 mg HS PO Last administered on 07/15/18 20:52; Admin Dose 300 MG; Start 07/11/18 at 21:00 Insulin Aspart (Novolog Insulin Pen) NOVOLOG *MODERATE* ALGORITHM WITH MEALS BEDTIME SC Last administered on 07/16/18at 12:25; Admin Dose 6 UNIT; Start 07/11/18 at 22:00 Insulin Aspart (Novolog Insulin Pen) 6 unit WITH MEALS SC Last administered on 07/16/18at 12:24; Admin Dose 6 UNIT; Start 07/12/18 at 07:35 Lorazepam (Ativan) 0.5 mg Q8H PRN PO ANXIETY Last administered on 07/14/18at 21:06; Admin Dose 0.5 MG; Start 07/11/18 at 21:30 Miscellaneous Information (Pending Santyl Order For Wound Care) This patient green... PRN PRN XX WOUND CARE; Start 07/11/18 at 21:30 Ondansetron HCl (Zofran Inj) 4 mg Q4H PRN IV NAUSEA AND/OR VOMITING Last administered on 07/13/18at 20:37; Admin Dose 4 MG; Start 07/11/18 at 22:00 Pantoprazole (Protonix Tab) 40 mg DAILY@06 PO Last administered on 07/16/18at 06:15; Admin Dose 40 MG; Start 07/12/18 at 06:00 Miscellaneous Information 1 ea NOTE XX ; Start 07/11/18 at 22:00 Glucose (Glutose) 15 gm Q15M PRN PO DECREASED GLUCOSE; Start 07/11/18 at 22:00 Glucose (Glutose) 22.5 gm Q15M PRN PO DECREASED GLUCOSE; Start 07/11/18 at 22:00 Dextrose (D50w Syringe) 25 ml Q15M PRN IV DECREASED GLUCOSE; Start 07/11/18 at 22:00 Dextrose (D50w Syringe) 50 ml Q15M PRN IV DECREASED GLUCOSE; Start 07/11/18 at 22:00 Glucagon (Glucagen) 1 mg Q15M PRN IM DECREASED GLUCOSE; Start 07/11/18 at 22:00 Glucose (Glutose) 15 gm Q15M PRN BUCCAL DECREASED GLUCOSE; Start 07/11/18 at 22:00 Miscellaneous Information (Pending Santyl Order For Wound Care) This patient green... PRN PRN XX WOUND CARE; Start 07/12/18 at 00:00 Ascorbic Acid (Vitamin C) 250 mg DAILY PO Last administered on 07/16/18at 09:15; Admin Dose 250 MG; Start 07/13/18 at 09:00 Folic Acid (Folic Acid) 1 mg DAILY PO Last administered on 07/16/18 12:23; Admin Dose 1 MG; Start 07/13/18 at 09:00 Lactobacillus Acidophilus/ Rhamnosus (Culturelle) 1 cap BID PO Last administered on 07/16/18 09:15; Admin Dose 1 CAP; Start 07/13/18 at 21:00 Insulin Glargine (Lantus) 40 units DAILY SC Last administered on 07/16/18 09:22; Admin Dose 40 UNITS; Start 07/15/18 at 09:00 Multivit/Ca Carb/ B Cmplx/FA/Prenat (Kandace-Juan José) 1 tab DAILY PO Last administered on 07/16/18 09:15; Admin Dose 1 TAB; Start 07/15/18 at 09:00 Metronidazole (Flagyl) 500 mg Q8 PO Last administered on 07/16/18 06:15; Admin Dose 500 MG; Start 07/14/18 at 15:00 Acetaminophen/ Hydrocodone Bitart ([place] (5/325)) 0.5 tab Q4H PRN PO PAIN LEVEL 6-10 Last administered on 07/16/18 04:28; Admin Dose 0.5 TAB; Start 07/15/18 at 13:30 Daptomycin 450 mg/ Sodium Chloride 100 ml @ 200 mls/hr Q24H IVPB Last administered on 07/15/18 17:49; Admin Dose 200 MLS/HR; Start 07/15/18 at 18:00 Ertapenem 1 gm/ Sodium Chloride 100 ml @ 200 mls/hr Q24H IVPB Last administered on 07/15/18 20:56; Admin Dose 200 MLS/HR; Start 07/15/18 at 16:00 Vancomycin HCl (Vancomycin Oral Syringe) 250 mg Q6 PO Last administered on 07/16/18 12:23; Admin Dose 250 MG; Start 07/15/18 at 18:00 Alex Chávez DO Jul 16, 2018 12:45
--- NOTE | 2018-07-16 13:19 | CONS ---
Assessment/Plan Assessment/Plan Hospital Course (Demo Recall) No acute events overnight, no fevers, + loose stools Microbiology: Urine culture persistently growing Carmella species, not albicans, stool + C dif LLE US revealed 5.0 cm debris containing collection in the superficial soft tissues of the left inguinal region. Finding could reflect a hematoma. Superimposed infection or abscess is not excluded. Antimicrobials: Cancidas PO Vancomycin Daptomycin Invanz Physical examination: This is obese well-developed [place] woman who is in no distress. Head atraumatic normocephalic sclera nonicteric. Neck is supple. Chest rise symmetrical breath sounds clear, diminished bases. Heart: S1-S2. Abdomen soft, bowel sounds present. Extremities without cyanosis. Left lower extremity swollen with calf erythema Assessment: 1. Systemic inflammatory response syndrome 2. C. difficile colitis 3. Urinary tract infection 4. Urinary retention, s/p Odonnell 5. Occlusive left common femoral artery status post thrombectomy 6. Coronary artery disease, history of CABG 7. Paroxysmal atrial fibrillation 8. Diabetes 9. Abnormal 2D echo, rule out vegetations versus thrombus versus tumor on the right atrium 10. History of renal cell carcinoma status post partial nephrectomy Plan: Clinically unchanged, will keep on abx to complete 6 weeks, pending PICC Consultation Date/Type/Reason Admit Date/Time Jul 11, 2018 at 19:45 Initial Consult Date Type of Consult id Date/Time of Note DATE: 07/16/18 TIME: 13:17 Exam/Review of Systems Exam Vitals Vital Signs Date Temp Pulse Resp B/P (MAP) Pulse Ox O2 O2 Flow FiO2 Time Delivery Rate 07/16/18 Nasal 2.0 08:30 Cannula 07/16/18 98.8 76 18 138/64 97 04:06 (88) Intake and Output 07/15/18 07/15/18 07/16/18 1515:00 23:00 07:00 IntakeIntake Total 250 ml 1250 ml 800 ml OutputOutput Total 600 ml 500 ml BalanceBalance 250 ml 650 ml 300 ml Results Result Diagram: 07/15/18 0615 07/16/18 0703 Results 24hrs Laboratory Tests Test 07/15/18 17:35 07/15/18 20:44 07/16/18 07:03 07/16/18 07:45 Bedside Glucose 219 177 122 Blood Urea Nitrogen 47 H Creatinine 1.34 H Creatine Kinase 28 Test 07/16/18 12:21 Bedside Glucose 246 H Medications Medication Current Medications Magnesium Hydroxide (Milk Of Mag) 30 ml BID PRN PO CONSTIPATION; Start 07/11/18 at 20:00 Lactulose (Enulose) 20 gm DAILY PRN PO CONSTIPATION; Start 07/11/18 at 20:00 Bisacodyl (Dulcolax Supp) 10 mg DAILY PRN [place] CONSTIPATION; Start 07/11/18 at 20:00 Diagnostic Test (Pha) (Accu-Chek) 1 ea 02 XX Last administered on 07/14/18 02:55; Admin Dose 1 EA; Start 07/12/18 at 02:00 Acetaminophen (Tylenol Tab) 650 mg Q4H PRN PO MILD PAIN(1-3)OR ELEVATED TEMP Last administered on 07/13/18 11:35; Admin Dose 650 MG; Start 07/11/18 at 21:30 Amiodarone HCl (Cordarone) 200 mg DAILY PO Last administered on 07/16/18 09:15; Admin Dose 200 MG; Start 07/12/18 at 09:00 Apixaban (Eliquis) 2.5 mg BID PO Last administered on 07/16/18 09:15; Admin Dose 2.5 MG; Start 07/11/18 at 21:00 Atorvastatin Calcium (Lipitor) 40 mg QHS PO Last administered on 07/15/18 20:52; Admin Dose 40 MG; Start 07/11/18 at 21:00 Caspofungin 50 mg/ Sodium Chloride 250 ml @ 250 mls/hr Q24H IVPB Last administered on 07/15/18 16:16; Admin Dose 250 MLS/HR; Start 07/12/18 at 16:00 Clonidine (Catapres) 0.1 mg BID PRN PO SBP > 180 Last administered on 07/13/18 20:31; Admin Dose 0.1 MG; Start 07/11/18 at 21:30 Collagenase (Santyl) 1 applic DAILY TOP Last administered on 07/16/18 09:22; Admin Dose 1 APPLIC; Start 07/12/18 at 09:00 Epoetin Alejo-epbx (Retacrit) 6,000 unit TuThSa@1700 SC Last administered on 07/15/18 16:17; Admin Dose 6,000 UNIT; Start 07/12/18 at 17:00 Gabapentin (Neurontin) 300 mg HS PO Last administered on 07/15/18at 20:52; Admin Dose 300 MG; Start 07/11/18 at 21:00 Insulin Aspart (Novolog Insulin Pen) NOVOLOG *MODERATE* ALGORITHM WITH MEALS BEDTIME SC Last administered on 07/16/18at 12:25; Admin Dose 6 UNIT; Start 07/11/18 at 22:00 Insulin Aspart (Novolog Insulin Pen) 6 unit WITH MEALS SC Last administered on 07/16/18at 12:24; Admin Dose 6 UNIT; Start 07/12/18 at 07:35 Lorazepam (Ativan) 0.5 mg Q8H PRN PO ANXIETY Last administered on 07/14/18at 21: 06; Admin Dose 0.5 MG; Start 07/11/18 at 21:30 Miscellaneous Information (Pending Santyl Order For Wound Care) This patient green... PRN PRN XX WOUND CARE; Start 07/11/18 at 21:30 Ondansetron HCl (Zofran Inj) 4 mg Q4H PRN IV NAUSEA AND/OR VOMITING Last administered on 07/13/18at 20:37; Admin Dose 4 MG; Start 07/11/18 at 22:00 Pantoprazole (Protonix Tab) 40 mg DAILY@06 PO Last administered on 07/16/18at 06:15; Admin Dose 40 MG; Start 07/12/18 at 06:00 Miscellaneous Information 1 ea NOTE XX ; Start 07/11/18 at 22:00 Glucose (Glutose) 15 gm Q15M PRN PO DECREASED GLUCOSE; Start 07/11/18 at 22:00 Glucose (Glutose) 22.5 gm Q15M PRN PO DECREASED GLUCOSE; Start 07/11/18 at 22:00 Dextrose (D50w Syringe) 25 ml Q15M PRN IV DECREASED GLUCOSE; Start 07/11/18 at 22:00 Dextrose (D50w Syringe) 50 ml Q15M PRN IV DECREASED GLUCOSE; Start 07/11/18 at 22:00 Glucagon (Glucagen) 1 mg Q15M PRN IM DECREASED GLUCOSE; Start 07/11/18 at 22:00 Glucose (Glutose) 15 gm Q15M PRN BUCCAL DECREASED GLUCOSE; Start 07/11/18 at 22:00 Miscellaneous Information (Pending Santyl Order For Wound Care) This patient green... PRN PRN XX WOUND CARE; Start 07/12/18 at 00:00 Ascorbic Acid (Vitamin C) 250 mg DAILY PO Last administered on 07/16/18 09:15; Admin Dose 250 MG; Start 07/13/18 at 09:00 Folic Acid (Folic Acid) 1 mg DAILY PO Last administered on 07/16/18 12:23; Admin Dose 1 MG; Start 07/13/18 at 09:00 Lactobacillus Acidophilus/ Rhamnosus (Culturelle) 1 cap BID PO Last administered on 07/16/18 09:15; Admin Dose 1 CAP; Start 07/13/18 at 21:00 Insulin Glargine (Lantus) 40 units DAILY SC Last administered on 07/16/18 09:22; Admin Dose 40 UNITS; Start 07/15/18 at 09:00 Multivit/Ca Carb/ B Cmplx/FA/Prenat (Kandace-Juan José) 1 tab DAILY PO Last administered on 07/16/18 09:15; Admin Dose 1 TAB; Start 07/15/18 at 09:00 Metronidazole (Flagyl) 500 mg Q8 PO Last administered on 07/16/18 06:15; Admin Dose 500 MG; Start 07/14/18 at 15:00 Acetaminophen/ Hydrocodone Bitart ([place] (5/325)) 0.5 tab Q4H PRN PO PAIN LEVEL 6-10 Last administered on 07/16/18 04:28; Admin Dose 0.5 TAB; Start 07/15/18 at 13:30 Daptomycin 450 mg/ Sodium Chloride 100 ml @ 200 mls/hr Q24H IVPB Last administered on 07/15/18 17:49; Admin Dose 200 MLS/HR; Start 07/15/18 at 18:00 Ertapenem 1 gm/ Sodium Chloride 100 ml @ 200 mls/hr Q24H IVPB Last administered on 07/15/18 20:56; Admin Dose 200 MLS/HR; Start 07/15/18 at 16:00 Vancomycin HCl (Vancomycin Oral Syringe) 250 mg Q6 PO Last administered on 07/16/18 12:23; Admin Dose 250 MG; Start 07/15/18 at 18:00 BARBARA ORDAZ NP Jul 16, 2018 13:19
[2018-07-16 15:43] VITALS: BP 160/59; PULSE 78; RESP 18
[2018-07-16] MEDS: CASPOFUNGIN 50 MG in SOD CHLORIDE 0.9% 250 ML IVPB SCH (16:43)
[2018-07-16] MEDS: DAPTOMYCIN 450 MG in SOD CHLORIDE 0.9% 100 ML IVPB SCH (18:27)
[2018-07-16 19:39] VITALS: BP 148/70; PULSE 82; RESP 18
[2018-07-16] MEDS: ATORVASTATIN 40 MG TAB PO SCH (20:36)
[2018-07-16] MEDS: GABAPENTIN 300 MG CAP PO SCH (20:37)
[2018-07-16] MEDS: ERTAPENEM SODIUM 1 GM in SOD CHLORIDE 0.9% 100 ML IVPB SCH (20:54)
[2018-07-17] MEDS: VANCOMYCIN HCL 250 MG/5ML POSYG PO SCH ×4 (00:04→18:11)
[2018-07-17 02:00] VITALS: BP 138/65; PULSE 78; RESP 18
[2018-07-17] MEDS: ACCU-CHEK XX SCH (02:00)
[2018-07-17] MEDS: HYDROCODONE/APAP (5/325) TAB PO PRN ×3 (04:15→14:31)
[2018-07-17] MEDS: metroNIDAZOLE 500 MG TAB PO SCH ×2 (06:18→14:19)
[2018-07-17] MEDS: PANTOPRAZOLE (EC) 40 MG TAB PO SCH (06:18)
[2018-07-17 07:00] VITALS: BP 138/63; PULSE 80; RESP 18
[2018-07-17] MEDS: INSULIN ASPART [NOVOLOG] 3 ML PEN SC SCH ×6 (07:35→17:43)
[2018-07-17] MEDS: MULTIVIT/CA CARB/B CMPLX/FA TAB PO SCH (08:33)
[2018-07-17] MEDS: AMIODARONE 200 MG TAB PO SCH (08:35)
[2018-07-17] MEDS: APIXABAN 5 MG TABLET PO SCH (08:36)
[2018-07-17] MEDS: LACTOBACILLUS RHAMNOSUS CAP PO SCH (08:36)
[2018-07-17] MEDS: ASCORBIC ACID 250 MG TAB PO SCH (08:36)
[2018-07-17] MEDS: FOLIC ACID 1 MG TAB PO SCH (08:36)
[2018-07-17] MEDS: INSULIN GLARGINE [LANTus] (100 UNITS/ML) SYG SC SCH (08:37)
[2018-07-17] MEDS: LORAZEPAM 0.5 MG TAB PO PRN ×2 (08:37→17:40)
[2018-07-17] MEDS: COLLAGENASE 5 GM (UD JAR) TOP SCH (10:59)
[2018-07-17] MEDS: BALSAM PERU/CASTOR OIL 60 GM TUBE TOP SCH (11:00)
--- NOTE | 2018-07-17 12:17 | CONS ---
Assessment/Plan Assessment/Plan Hospital Course (Demo Recall) No acute events overnight, s/p PICC yesterday Microbiology: Urine culture persistently growing Carmella species, not albicans, stool + C dif LLE US revealed 5.0 cm debris containing collection in the superficial soft tissues of the left inguinal region. Finding could reflect a hematoma. Super imposed infection or abscess is not excluded. Antimicrobials: Cancidas PO Vancomycin Daptomycin Invanz Physical examination: This is obese well-developed [place] woman who is in no distress. Head atraumatic normocephalic sclera nonicteric. Neck is supple. Chest rise symmetrical breath sounds clear, diminished bases. Heart: S1-S2. Abdomen soft, bowel sounds present. Extremities without cyanosis. Left lower extremity swollen with calf erythema Assessment: 1. Systemic inflammatory response syndrome 2. C. difficile colitis 3. Urinary tract infection 4. Urinary retention, s/p Odonnell 5. Occlusive left common femoral artery status post thrombectomy 6. Coronary artery disease, history of CABG 7. Paroxysmal atrial fibrillation 8. Diabetes 9. Abnormal 2D echo, rule out vegetations versus thrombus versus tumor on the right atrium 10. History of renal cell carcinoma status post partial nephrectomy Plan: Clinically unchanged, ok dc on Daptomycin and Invanz for 5 more weeks, continue PO Vanco for 4 more weeks Consultation Date/Type/Reason Admit Date/Time Jul 11, 2018 at 19:45 Initial Consult Date Type of Consult id Date/Time of Note DATE: 07/17/18 TIME: 12:16 Exam/Review of Systems Exam Vitals Vital Signs Date Temp Pulse Resp B/P (MAP) Pulse Ox O2 O2 Flow FiO2 Time Delivery Rate 07/17/18 Nasal 2.0 08:00 Cannula 07/17/18 98.0 80 18 138/63 98 07:00 (88) Intake and Output 07/16/18 07/16/18 07/17/18 1414:59 22:59 06:59 IntakeIntake Total 1150 ml 1000 ml OutputOutput Total 900 ml BalanceBalance 250 ml 1000 ml Results Result Diagram: 07/16/18 1628 07/16/18 1628 Results 24hrs Laboratory Tests Test 07/16/18 12:21 07/16/18 16:28 07/16/18 17:40 07/16/18 20:36 Bedside Glucose 246 H 137 179 White Blood Count 11.6 H Red Blood Count 2.86 L Hemoglobin 7.9 L Hematocrit 26.1 L Mean Corpuscular 91.3 Volume Mean Corpuscular 27.6 L Hemoglobin Mean Corpuscular 30.3 L Hemoglobin Concent Red Cell 16.0 H Distribution Width Platelet Count 382 Mean Platelet Volume 9.9 Immature 0.600 H Granulocytes % Neutrophils % 76.3 Lymphocytes % 13.2 L Monocytes % 8.3 Eosinophils % 1.3 Basophils % 0.3 Nucleated Red Blood 0.0 Cells % Immature 0.070 H Granulocytes # Neutrophils # 8.9 H Lymphocytes # 1.5 Monocytes # 1.0 H Eosinophils # 0.2 Basophils # 0.0 Nucleated Red Blood 0.0 Cells # Sodium Level 139 Potassium Level 4.7 Chloride Level 106 Carbon Dioxide Level 31 Anion Gap 2 L Blood Urea Nitrogen 46 H Creatinine 1.22 H Est Glomerular Filtrat Rate mL/min Glucose Level 162 Calcium Level 8.7 Test 07/17/18 08:07 07/17/18 11:43 Bedside Glucose 111 154 Medications Medication Current Medications Magnesium Hydroxide (Milk Of Mag) 30 ml BID PRN PO CONSTIPATION; Start 07/11/18 at 20:00 Lactulose (Enulose) 20 gm DAILY PRN PO CONSTIPATION; Start 07/11/18 at 20:00 Bisacodyl (Dulcolax Supp) 10 mg DAILY PRN [place] CONSTIPATION; Start 07/11/18 at 20:00 Diagnostic Test (Pha) (Accu-Chek) 1 ea 02 XX Last administered on 07/14/18at 02:55; Admin Dose 1 EA; Start 07/12/18 at 02:00 Acetaminophen (Tylenol Tab) 650 mg Q4H PRN PO MILD PAIN(1-3)OR ELEVATED TEMP Last administered on 07/13/18at 11:35; Admin Dose 650 MG; Start 07/11/18 at 21:30 Amiodarone HCl (Cordarone) 200 mg DAILY PO Last administered on 07/17/18at 08:35; Admin Dose 200 MG; Start 07/12/18 at 09:00 Apixaban (Eliquis) 2.5 mg BID PO Last administered on 07/17/18 08:36; Admin Dose 2.5 MG; Start 07/11/18 at 21:00 Atorvastatin Calcium (Lipitor) 40 mg QHS PO Last administered on 07/16/18at 20:36; Admin Dose 40 MG; Start 07/11/18 at 21:00 Caspofungin 50 mg/ Sodium Chloride 250 ml @ 250 mls/hr Q24H IVPB Last administered on 07/16/18 16:43; Admin Dose 250 MLS/HR; Start 07/12/18 at 16:00 Clonidine (Catapres) 0.1 mg BID PRN PO SBP > 180 Last administered on 07/13/18 20:31; Admin Dose 0.1 MG; Start 07/11/18 at 21:30 Collagenase (Santyl) 1 applic DAILY TOP Last administered on 07/17/18 10:59; Admin Dose 1 APPLIC; Start 07/12/18 at 09:00 Epoetin Alejo-epbx (Retacrit) 6,000 unit TuThSa@1700 SC Last administered on 07/15/18 16:17; Admin Dose 6,000 UNIT; Start 07/12/18 at 17:00 Gabapentin (Neurontin) 300 mg HS PO Last administered on 07/16/18 20:37; Admin Dose 300 MG; Start 07/11/18 at 21:00 Insulin Aspart (Novolog Insulin Pen) NOVOLOG *MODERATE* ALGORITHM WITH MEALS BEDTIME SC Last administered on 07/17/18 11:46; Admin Dose 2 UNIT; Start 07/11/18 at 22:00 Insulin Aspart (Novolog Insulin Pen) 6 unit WITH MEALS SC Last administered on 07/17/18 11:45; Admin Dose 6 UNIT; Start 07/12/18 at 07:35 Lorazepam (Ativan) 0.5 mg Q8H PRN PO ANXIETY Last administered on 07/17/18 08:37; Admin Dose 0.5 MG; Start 07/11/18 at 21:30 Miscellaneous Information (Pending Santyl Order For Wound Care) This patient green... PRN PRN XX WOUND CARE; Start 07/11/18 at 21:30 Ondansetron HCl (Zofran Inj) 4 mg Q4H PRN IV NAUSEA AND/OR VOMITING Last administered on 07/13/18 20:37; Admin Dose 4 MG; Start 07/11/18 at 22:00 Pantoprazole (Protonix Tab) 40 mg DAILY@06 PO Last administered on 07/17/18 06:18; Admin Dose 40 MG; Start 07/12/18 at 06:00 Miscellaneous Information 1 ea NOTE XX ; Start 07/11/18 at 22:00 Glucose (Glutose) 15 gm Q15M PRN PO DECREASED GLUCOSE; Start 07/11/18 at 22:00 Glucose (Glutose) 22.5 gm Q15M PRN PO DECREASED GLUCOSE; Start 07/11/18 at 22:00 Dextrose (D50w Syringe) 25 ml Q15M PRN IV DECREASED GLUCOSE; Start 07/11/18 at 22:00 Dextrose (D50w Syringe) 50 ml Q15M PRN IV DECREASED GLUCOSE; Start 07/11/18 at 22:00 Glucagon (Glucagen) 1 mg Q15M PRN IM DECREASED GLUCOSE; Start 07/11/18 at 22:00 Glucose (Glutose) 15 gm Q15M PRN BUCCAL DECREASED GLUCOSE; Start 07/11/18 at 22:00 Miscellaneous Information (Pending Santyl Order For Wound Care) This patient green... PRN PRN XX WOUND CARE; Start 07/12/18 at 00:00 Ascorbic Acid (Vitamin C) 250 mg DAILY PO Last administered on 07/17/18 08:36; Admin Dose 250 MG; Start 07/13/18 at 09:00 Folic Acid (Folic Acid) 1 mg DAILY PO Last administered on 07/17/18 08:36; Admin Dose 1 MG; Start 07/13/18 at 09:00 Lactobacillus Acidophilus/ Rhamnosus (Culturelle) 1 cap BID PO Last administered on 07/17/18 08:36; Admin Dose 1 CAP; Start 07/13/18 at 21:00 Insulin Glargine (Lantus) 40 units DAILY SC Last administered on 07/17/18at 08:37; Admin Dose 40 UNITS; Start 07/15/18 at 09:00 Multivit/Ca Carb/ B Cmplx/FA/Prenat (Kandace-Juan José) 1 tab DAILY PO Last admini stered on 07/17/18at 08:33; Admin Dose 1 TAB; Start 07/15/18 at 09:00 Metronidazole (Flagyl) 500 mg Q8 PO Last administered on 07/17/18 06:18; Admin Dose 500 MG; Start 07/14/18 at 15:00 Acetaminophen/ Hydrocodone Bitart ([place] (5/325)) 0.5 tab Q4H PRN PO PAIN LEVEL 6-10 Last administered on 07/17/18at 10:59; Admin Dose 0.5 TAB; Start 07/15/18 at 13:30 Daptomycin 450 mg/ Sodium Chloride 100 ml @ 200 mls/hr Q24H IVPB Last administered on 07/16/18 18:27; Admin Dose 200 MLS/HR; Start 07/15/18 at 18:00 Ertapenem 1 gm/ Sodium Chloride 100 ml @ 200 mls/hr Q24H IVPB Last administered on 07/16/18at 20:54; Admin Dose 200 MLS/HR; Start 07/15/18 at 16:00 Vancomycin HCl (Vancomycin Oral Syringe) 250 mg Q6 PO Last administered on 07/17/18at 06:17; Admin Dose 250 MG; Start 07/15/18 at 18:00 IV Flush (NS 10 ml) 10 ml PRN PRN IV IV PROTOCOL; Start 07/16/18 at 17:00 BARBARA ORDAZ NP Jul 17, 2018 12:17
--- NOTE | 2018-07-17 13:14 | PN ---
Date/Time of Note Date/Time of Note DATE: 07/17/18 TIME: 13:14 Objective Vital Signs Date Temp Pulse Resp B/P (MAP) Pulse Ox O2 O2 Flow FiO2 Time Delivery Rate 07/17/18 Nasal 2.0 08:00 Cannula 07/17/18 98.0 80 18 138/63 98 07:00 (88) Intake and Output 07/16/18 07/16/18 07/17/18 1515:00 23:00 07:00 IntakeIntake Total 1150 ml 1000 ml OutputOutput Total 900 ml BalanceBalance 250 ml 1000 ml Results/Medications Result Diagram: 07/16/18 1628 07/16/18 1628 Results 24 hrs Laboratory Tests Test 07/16/18 16:28 07/16/18 17:40 07/16/18 20:36 07/17/18 08:07 White Blood Count 11.6 H Red Blood Count 2.86 L Hemoglobin 7.9 L Hematocrit 26.1 L Mean Corpuscular 91.3 Volume Mean Corpuscular 27.6 L Hemoglobin Mean Corpuscular 30.3 L Hemoglobin Concent Red Cell 16.0 H Distribution Width Platelet Count 382 Mean Platelet Volume 9.9 Immature 0.600 H Granulocytes % Neutrophils % 76.3 Lymphocytes % 13.2 L Monocytes % 8.3 Eosinophils % 1.3 Basophils % 0.3 Nucleated Red Blood 0.0 Cells % Immature 0.070 H Granulocytes # Neutrophils # 8.9 H Lymphocytes # 1.5 Monocytes # 1.0 H Eosinophils # 0.2 Basophils # 0.0 Nucleated Red Blood 0.0 Cells # Sodium Level 139 Potassium Level 4.7 Chloride Level 106 Carbon Dioxide Level 31 Anion Gap 2 L Blood Urea Nitrogen 46 H Creatinine 1.22 H Est Glomerular Filtrat Rate mL/min Glucose Level 162 Calcium Level 8.7 Bedside Glucose 137 179 111 Test 07/17/18 11:43 Bedside Glucose 154 Medications Current Medications Magnesium Hydroxide (Milk Of Mag) 30 ml BID PRN PO CONSTIPATION; Start 07/11/18 at 20:00 Lactulose (Enulose) 20 gm DAILY PRN PO CONSTIPATION; Start 07/11/18 at 20:00 Bisacodyl (Dulcolax Supp) 10 mg DAILY PRN CA CONSTIPATION; Start 07/11/18 at 20:00 Diagnostic Test (Pha) (Accu-Chek) 1 ea 02 XX Last administered on 07/14/18 02:55; Admin Dose 1 EA; Start 07/12/18 at 02:00 Acetaminophen (Tylenol Tab) 650 mg Q4H PRN PO MILD PAIN(1-3)OR ELEVATED TEMP Last administered on 07/13/18 11:35; Admin Dose 650 MG; Start 07/11/18 at 21:30 Amiodarone HCl (Cordarone) 200 mg DAILY PO Last administered on 07/17/18 08:35; Admin Dose 200 MG; Start 07/12/18 at 09:00 Apixaban (Eliquis) 2.5 mg BID PO Last administered on 07/17/18 08:36; Admin Dose 2.5 MG; Start 07/11/18 at 21:00 Atorvastatin Calcium (Lipitor) 40 mg QHS PO Last administered on 07/16/18 20:36; Admin Dose 40 MG; Start 07/11/18 at 21:00 Clonidine (Catapres) 0.1 mg BID PRN PO SBP > 180 Last administered on 07/13/18 20:31; Admin Dose 0.1 MG; Start 07/11/18 at 21:30 Collagenase (Santyl) 1 applic DAILY TOP Last administered on 07/17/18 10:59; Admin Dose 1 APPLIC; Start 07/12/18 at 09:00 Epoetin Alejo-epbx (Retacrit) 6,000 unit TuThSa@1700 SC Last administered on 07/15/18 16:17; Admin Dose 6,000 UNIT; Start 07/12/18 at 17:00 Gabapentin (Neurontin) 300 mg HS PO Last administered on 07/16/18 20:37; Admin Dose 300 MG; Start 07/11/18 at 21:00 Insulin Aspart (Novolog Insulin Pen) NOVOLOG *MODERATE* ALGORITHM WITH MEALS BEDTIME SC Last administered on 07/17/18 11:46; Admin Dose 2 UNIT; Start 07/11/18 at 22:00 Insulin Aspart (Novolog Insulin Pen) 6 unit WITH MEALS SC Last administered on 07/17/18 11:45; Admin Dose 6 UNIT; Start 07/12/18 at 07:35 Lorazepam (Ativan) 0.5 mg Q8H PRN PO ANXIETY Last administered on 07/17/18 08:37; Admin Dose 0.5 MG; Start 07/11/18 at 21:30 Miscellaneous Information (Pending Santyl Order For Wound Care) This patient green... PRN PRN XX WOUND CARE; Start 07/11/18 at 21:30 Ondansetron HCl (Zofran Inj) 4 mg Q4H PRN IV NAUSEA AND/OR VOMITING Last administered on 07/13/18at 20:37; Admin Dose 4 MG; Start 07/11/18 at 22:00 Pantoprazole (Protonix Tab) 40 mg DAILY@06 PO Last administered on 07/17/18at 06:18; Admin Dose 40 MG; Start 07/12/18 at 06:00 Miscellaneous Information 1 ea NOTE XX ; Start 07/11/18 at 22:00 Glucose (Glutose) 15 gm Q15M PRN PO DECREASED GLUCOSE; Start 07/11/18 at 22:00 Glucose (Glutose) 22.5 gm Q15M PRN PO DECREASED GLUCOSE; Start 07/11/18 at 22: 00 Dextrose (D50w Syringe) 25 ml Q15M PRN IV DECREASED GLUCOSE; Start 07/11/18 at 22:00 Dextrose (D50w Syringe) 50 ml Q15M PRN IV DECREASED GLUCOSE; Start 07/11/18 at 22:00 Glucagon (Glucagen) 1 mg Q15M PRN IM DECREASED GLUCOSE; Start 07/11/18 at 22:00 Glucose (Glutose) 15 gm Q15M PRN BUCCAL DECREASED GLUCOSE; Start 07/11/18 at 22:00 Miscellaneous Information (Pending Santyl Order For Wound Care) This patient green... PRN PRN XX WOUND CARE; Start 07/12/18 at 00:00 Ascorbic Acid (Vitamin C) 250 mg DAILY PO Last administered on 07/17/18at 08:36; Admin Dose 250 MG; Start 07/13/18 at 09:00 Folic Acid (Folic Acid) 1 mg DAILY PO Last administered on 07/17/18at 08:36; Admin Dose 1 MG; Start 07/13/18 at 09:00 Lactobacillus Acidophilus/ Rhamnosus (Culturelle) 1 cap BID PO Last administered on 07/17/18at 08:36; Admin Dose 1 CAP; Start 07/13/18 at 21:00 Insulin Glargine (Lantus) 40 units DAILY SC Last administered on 07/17/18 08:37; Admin Dose 40 UNITS; Start 07/15/18 at 09:00 Multivit/Ca Carb/ B Cmplx/FA/Prenat (Kandace-Juan José) 1 tab DAILY PO Last administered on 07/17/18 08:33; Admin Dose 1 TAB; Start 07/15/18 at 09:00 Metronidazole (Flagyl) 500 mg Q8 PO Last administered on 07/17/18 06:18; Admin Dose 500 MG; Start 07/14/18 at 15:00 Acetaminophen/ Hydrocodone Bitart ([place] (5/325)) 0.5 tab Q4H PRN PO PAIN LEVEL 6-10 Last administered on 07/17/18 10:59; Admin Dose 0.5 TAB; Start 07/15/18 at 13:30 Daptomycin 450 mg/ Sodium Chloride 100 ml @ 200 mls/hr Q24H IVPB Last administered on 07/16/18 18:27; Admin Dose 200 MLS/HR; Start 07/15/18 at 18:00 Ertapenem 1 gm/ Sodium Chloride 100 ml @ 200 mls/hr Q24H IVPB Last administered on 07/16/18 20:54; Admin Dose 200 MLS/HR; Start 07/15/18 at 16:00 Vancomycin HCl (Vancomycin Oral Syringe) 250 mg Q6 PO Last administered on 07/17/18 06:17; Admin Dose 250 MG; Start 07/15/18 at 18:00 IV Flush (NS 10 ml) 10 ml PRN PRN IV IV PROTOCOL; Start 07/16/18 at 17:00 Assessment/Plan Additional Assessment/Plan Rehab- Cardiac debility secondary to congestive heart failure, cardiomyopathy. Activities as tolerated. patient with limited activity tolerance, will need lower level of care. GI- C dif- treatment started Atrial fibrillation. Left lower extremity thrombus status post thrombectomy. Acute on chronic kidney injury along with history of renal cancer and partial nephrectomy. Leukocytosis secondary to systemic inflammatory response. Anemia. Hypertension. Urinary tract infection. Left lower extremity cellulitis. Dysphagia-followed by speech Integ- Right heel DTI, right buttock un-stageable, left heel with blanchable erythema- offloading, increase nutrition and mobility. GOSIA CASTELLON MD Jul 17, 2018 13:14
[2018-07-17 14:00] VITALS: BP 124/58; PULSE 81; RESP 18
--- NOTE | 2018-07-17 16:42 | CONS ---
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 -Diuretics as needed -Continue to hold any nephrotoxic medications, patient being followed by nephrology. Consultation Date/Type/Reason Admit Date/Time Jul 11, 2018 at 19:45 Initial Consult Date Type of Consult Cardiology Date/Time of Note DATE: 07/17/18 TIME: 16:41 24 HR Interval Summary Free Text/Dictation No shortness of breath, chest pain Exam/Review of Systems Vital Signs Vitals Vital Signs Date Temp Pulse Resp B/P (MAP) Pulse Ox O2 O2 Flow FiO2 Time Delivery Rate 07/17/18 98.2 81 18 124/58 98 Room Air 14:00 (80) 07/17/18 2.0 08:00 Intake and Output 07/16/18 07/16/18 07/17/18 1515:00 23:00 07:00 IntakeIntake Total 1150 ml 1000 ml OutputOutput Total 900 ml BalanceBalance 250 ml 1000 ml Exam Constitutional: alert, oriented (No apparent distress) Head: normocephalic Respiratory: other (Coarse breath sounds bilaterally, no wheezing) Cardiovascular: regular rate and rhythm (S1-S2 heard) Gastrointestinal: soft, non-tender, bowel sounds Extremities: edema Labs Result Diagram: 07/16/18 1628 07/16/18 1628 Results 24hrs Laboratory Tests Test 07/16/18 17:40 07/16/18 20:36 07/17/18 08:07 07/17/18 11:43 Bedside Glucose 137 179 111 154 Medications Medications Current Medications Magnesium Hydroxide (Milk Of Mag) 30 ml BID PRN PO CONSTIPATION; Start 07/11/18 at 20:00 Lactulose (Enulose) 20 gm DAILY PRN PO CONSTIPATION; Start 07/11/18 at 20:00 Bisacodyl (Dulcolax Supp) 10 mg DAILY PRN MS CONSTIPATION; Start 07/11/18 at 20:00 Diagnostic Test (Pha) (Accu-Chek) 1 ea 02 XX Last administered on 07/14/18 02:55; Admin Dose 1 EA; Start 07/12/18 at 02:00 Acetaminophen (Tylenol Tab) 650 mg Q4H PRN PO MILD PAIN(1-3)OR ELEVATED TEMP Last administered on 07/13/18 11:35; Admin Dose 650 MG; Start 07/11/18 at 21:30 Amiodarone HCl (Cordarone) 200 mg DAILY PO Last administered on 07/17/18 08:35; Admin Dose 200 MG; Start 07/12/18 at 09:00 Apixaban (Eliquis) 2.5 mg BID PO Last administered on 07/17/18 08:36; Admin Dose 2.5 MG; Start 07/11/18 at 21:00 Atorvastatin Calcium (Lipitor) 40 mg QHS PO Last administered on 07/16/18 20:36; Admin Dose 40 MG; Start 07/11/18 at 21:00 Clonidine (Catapres) 0.1 mg BID PRN PO SBP > 180 Last administered on 07/13/18 20:31; Admin Dose 0.1 MG; Start 07/11/18 at 21:30 Collagenase (Santyl) 1 applic DAILY TOP Last administered on 07/17/18 10:59; Admin Dose 1 APPLIC; Start 07/12/18 at 09:00 Epoetin Alejo-epbx (Retacrit) 6,000 unit TuThSa@1700 SC Last administered on 07/15/18 16:17; Admin Dose 6,000 UNIT; Start 07/12/18 at 17:00 Gabapentin (Neurontin) 300 mg HS PO Last administered on 07/16/18 20:37; Admin Dose 300 MG; Start 07/11/18 at 21:00 Insulin Aspart (Novolog Insulin Pen) NOVOLOG *MODERATE* ALGORITHM WITH MEALS BEDTIME SC Last administered on 07/17/18 11:46; Admin Dose 2 UNIT; Start 06/30 05/20 at 22:00 Insulin Aspart (Novolog Insulin Pen) 6 unit WITH MEALS SC Last administered on 07/17/18 11:45; Admin Dose 6 UNIT; Start 07/12/18 at 07:35 Lorazepam (Ativan) 0.5 mg Q8H PRN PO ANXIETY Last administered on 07/17/18 08:37; Admin Dose 0.5 MG; Start 07/11/18 at 21:30 Miscellaneous Information (Pending Santyl Order For Wound Care) This patient green... PRN PRN XX WOUND CARE; Start 07/11/18 at 21:30 Ondansetron HCl (Zofran Inj) 4 mg Q4H PRN IV NAUSEA AND/OR VOMITING Last administered on 07/13/18at 20:37; Admin Dose 4 MG; Start 07/11/18 at 22:00 Pantoprazole (Protonix Tab) 40 mg DAILY@06 PO Last administered on 07/17/18 06:18; Admin Dose 40 MG; Start 07/12/18 at 06:00 Miscellaneous Information 1 ea NOTE XX ; Start 07/11/18 at 22:00 Glucose (Glutose) 15 gm Q15M PRN PO DECREASED GLUCOSE; Start 07/11/18 at 22:00 Glucose (Glutose) 22.5 gm Q15M PRN PO DECREASED GLUCOSE; Start 07/11/18 at 22:00 Dextrose (D50w Syringe) 25 ml Q15M PRN IV DECREASED GLUCOSE; Start 07/11/18 at 22:00 Dextrose (D50w Syringe) 50 ml Q15M PRN IV DECREASED GLUCOSE; Start 07/11/18 at 22:00 Glucagon (Glucagen) 1 mg Q15M PRN IM DECREASED GLUCOSE; Start 07/11/18 at 22:00 Glucose (Glutose) 15 gm Q15M PRN BUCCAL DECREASED GLUCOSE; Start 07/11/18 at 22:00 Miscellaneous Information (Pending Santyl Order For Wound Care) This patient green... PRN PRN XX WOUND CARE; Start 07/12/18 at 00:00 Ascorbic Acid (Vitamin C) 250 mg DAILY PO Last administered on 07/17/18 08:36; Admin Dose 250 MG; Start 07/13/18 at 09:00 Folic Acid (Folic Acid) 1 mg DAILY PO Last administered on 07/17/18 08:36; Admin Dose 1 MG; Start 07/13/18 at 09:00 Lactobacillus Acidophilus/ Rhamnosus (Culturelle) 1 cap BID PO Last admini stered on 07/17/18at 08:36; Admin Dose 1 CAP; Start 07/13/18 at 21:00 Insulin Glargine (Lantus) 40 units DAILY SC Last administered on 07/17/18 08:37; Admin Dose 40 UNITS; Start 07/15/18 at 09:00 Multivit/Ca Carb/ B Cmplx/FA/Prenat (Kandace-Juan José) 1 tab DAILY PO Last administered on 07/17/18 08:33; Admin Dose 1 TAB; Start 07/15/18 at 09:00 Metronidazole (Flagyl) 500 mg Q8 PO Last administered on 07/17/18 14:19; Admin Dose 500 MG; Start 07/14/18 at 15:00 Acetaminophen/ Hydrocodone Bitart ([place] (5/325)) 0.5 tab Q4H PRN PO PAIN LEVEL 6-10 Last administered on 07/17/18 14:31; Admin Dose 0.5 TAB; Start 07/15/18 at 13:30 Daptomycin 450 mg/ Sodium Chloride 100 ml @ 200 mls/hr Q24H IVPB Last a dministered on 07/16/18 18:27; Admin Dose 200 MLS/HR; Start 07/15/18 at 18:00 Ertapenem 1 gm/ Sodium Chloride 100 ml @ 200 mls/hr Q24H IVPB Last administered on 07/16/18 20:54; Admin Dose 200 MLS/HR; Start 07/15/18 at 16:00 Vancomycin HCl (Vancomycin Oral Syringe) 250 mg Q6 PO Last administered on 07/17/18 13:33; Admin Dose 250 MG; Start 07/15/18 at 18:00 IV Flush (NS 10 ml) 10 ml PRN PRN IV IV PROTOCOL; Start 07/16/18 at 17:00 Alex Chávez DO Jul 17, 2018 16:42
[2018-07-17] MEDS: EPOETIN ALFA-EPBX (NON-ESRD) 3,000 UNIT/ML VIAL SC SCH (18:02)
[2018-07-17] MEDS: DAPTOMYCIN 450 MG in SOD CHLORIDE 0.9% 100 ML IVPB SCH (18:03)
--- NOTE | 2018-07-19 07:59 | DS ---
Date/Time of Note Date/Time of Note DATE: 07/19/18 TIME: 07:55 Discharge Summary Admission/Discharge Info Admit Date/Time Jul 11, 2018 at 19:45 Discharge Date/Time Jul 17, 2018 at 20:00 Discharge Diagnosis 1. Cardiac debility secondary to congestive heart failure, cardiomyopathy, afib 2. Left lower extremity thrombus status post thrombectomy. 3. Acute on chronic kidney injury along with history of renal cancer and partial nephrectomy. 4. Leukocytosis secondary to systemic inflammatory response. 5. Anemia. 6. Hypertension. 7. Urinary tract infection. 8. Left lower extremity cellulitis. 9. Dysphagia. 11. Right heel DTI, right buttock un-stageable, left heel with blanchable erythema. 12. Impairments in self-care, mobility, and mild cognition. Patient Condition: Fair Hospital Course The patient was admitted for comprehensive interdisciplinary rehabilitation and made gradual limited functional gains from a Dependent level to a max level for self care tasks and mobility. Patient was followed closely for medical issues. 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 She received wound care for her multiple wound issues, and was noted to have improvement. She is now ready to discharge to a lower level of care. The DC meds are per the medication reconciliation sheet. The patient will follow up with PMD upon DC. Home Meds Reported Medications Clonidine Hcl* (Clonidine Hcl*) 0.1 Mg Tab, 0.1 MG PO Q8, TAB 06/25/18 Furosemide* (Furosemide*) 20 Mg Tablet, 20 MG PO DAILY 06/25/18 Carvedilol* (Carvedilol*) 3.125 Mg Tablet, 3.125 MG PO BID for 30 Days, #60 06/25/18 Amiodarone Hcl* (Amiodarone Hcl*) 200 Mg Tablet, 200 MG PO BID, #60 TAB 06/17/18 Dulaglutide (Trulicity) 0.75 Mg/0.5 Ml Pen.injctr, 1.75 MG SQ WEEKLY 06/11/18 Insulin Glargine,Hum.rec.anlog (Basaglar Kwikpen U-100) 100 Unit/1 Ml Insu ln.pen, 20 UNIT SC DAILY, EA 06/11/18 Ferrous Sulfate (Ferrous Sulfate) 325 Mg Tablet.dr, 325 MG PO DAILY 06/11/18 Aspirin* (Aspirin* EC) 81 Mg Tablet.dr, 81 MG PO DAILY, TAB 06/11/18 Empagliflozin (Jardiance) 10 Mg Tablet, 10 MG PO DAILY, TAB 06/11/18 Esomeprazole Mag Trihydrate (Nexium) 20 Mg Capsule.dr, 20 MG PO AC BREAKFAST, #30 CAP 06/11/18 Docusate Sodium* (Colace*) 100 Mg Capsule, 100 MG PO TID, #60 CAP 06/11/18 Allopurinol* (Allopurinol*) 100 Mg Tablet, 100 MG PO BID, TAB 06/11/18 Primary Care Provider MD RAVINDER Whittaker LIVA L. MD Jul 19, 2018 07:59
--- NOTE | 2018-07-22 01:01 | DS ---
DATE OF ADMISSION: 07/11/2018 DATE OF DISCHARGE: 07/17/2018 HOSPITAL COURSE: The patient was admitted to acute rehab from tele floor. The patient had difficult y walking post-hospitalization with generalized weakness. She was evaluated by rehab team and admitt ed to acute rehabilitation. The patient has history of atrial fibrillation, acute renal disease on c hronic renal disease, type 2 diabetes mellitus, hypertension, atherosclerotic vascular disease, statu s post thrombectomy, coagulopathy with bleeding, and generalized weakness with multiple wounds over t he body. The patient was admitted to rehab to continue her medications from the hospital and rehab t o be done. Also, she was on IV antibiotics. She acquired C. diff colitis, diarrhea and started on v ancomycin orally. In addition to IV vancomycin, the patient continued having diarrhea, but less than before. Due to poor response to physical therapy and poor effort, the rehab physician called and di scussed with me that the patient will not be improving from acute rehabilitation due to generalized w eakness and unable to perform any of the physical therapies. Therefore, it was suggested that the pa aliyah qualifies more to detention facility rather than an acute rehabilitation. Therefore, on 07/17/2018, decided to discharge the patient to detention facility as per family's request, [facility] was in [facility]. The patient on 07/17/2018, discharged to [facility] to continue IV antibio tics of vancomycin and Rocephin for four more weeks. Continue oral vancomycin for C. diff colitis wi th isolation and continue the rest of his medications, blood sugar monitoring and rehab at the [facility]. Therefore, discharged on 07/17/2018 and in stable condition to detention facility. Dictated By: NUBIA TEJEDA MD SB/NTS Conf#: [id number] DID#: [id number] CC: ERNESTO MCGARRY MD; Enoc York M.D.;*[facility]*
== END 2018-07-17 20:00 | DRG 555 ==
LOC: VRC 19:45
PROVIDERS: ADMIT Physical Medicine & Rehabilitation; ATTEND Family Medicine
PROC: 02HV33Z Insertion of Infusion Device into Superior Vena Cava, Percutaneous Approach (ICD-10-PCS; principal; 2018-07-16)
DX: M62.81 Muscle weakness (generalized) (principal); I50.23 Acute on chronic systolic (congestive) heart failure; I82.4Z2 Acute embolism and thrombosis of unspecified deep veins of left distal lower extremity; N39.0 Urinary tract infection, site not specified; L03.116 Cellulitis of left lower limb; D62 Acute posthemorrhagic anemia; I13.0 Hypertensive heart and chronic kidney disease with heart failure and stage 1 through stage 4 chronic kidney disease, or unspecified chronic kidney disease; N17.9 Acute kidney failure, unspecified; R65.10 Systemic inflammatory response syndrome (SIRS) of non-infectious origin without acute organ dysfunction; I42.9 Cardiomyopathy, unspecified; I48.0 Paroxysmal atrial fibrillation; Z85.53 Personal history of malignant neoplasm of renal pelvis; D64.9 Anemia, unspecified; S70.01XA Contusion of right hip, initial encounter; S90.32XA Contusion of left foot, initial encounter; R13.10 Dysphagia, unspecified; Z95.1 Presence of aortocoronary bypass graft; I25.10 Atherosclerotic heart disease of native coronary artery without angina pectoris; K21.9 Gastro-esophageal reflux disease without esophagitis; L89.310 Pressure ulcer of right buttock, unstageable; E11.22 Type 2 diabetes mellitus with diabetic chronic kidney disease; N18.9 Chronic kidney disease, unspecified; G30.9 Alzheimer's disease, unspecified; F02.80 Dementia in other diseases classified elsewhere, unspecified severity, without behavioral disturbance, psychotic disturbance, mood disturbance, and anxiety; E11.51 Type 2 diabetes mellitus with diabetic peripheral angiopathy without gangrene
CPT/HCPCS: 36569; 71045; 76937; 80048; 80053; 81001; 82550; 82565; 82962; 83880; 84520; 85025; 87075; 87081; 87086; 92526; 92610; 97110; 97112; 97163; 97530; 97535; 97542; J0885; J1335; J1815; J2185; J2405; J3370; J7050

== ENCOUNTER 2018-08-01 05:43 | Inpatient (IN) | payer MEDICARE, OTHER ==
[2018-08-01] VITALS (8 sets, daily range): BP systolic 131–184; BP diastolic 63–77; PULSE 83–96; RESP 18; Ht 157.5 cm; Wt 82.6 kg
[~2018-08-01] VITALS: Ht 157.5 cm; Wt 82.6 kg
--- NOTE | 2018-08-01 06:13 | ERD ---
ER Documentation Chief Complaint Chief Complaint BIBA C/O SOB FROM SNF HPI 82-year-old female history of hypertension, diabetes, congestive heart failure, atrial fibrillation, renal carcinoma status post remote nephrectomy, coronary artery disease status post CABG, atherosclerotic vascular disease status post recent thrombectomy of the left lower extremity, C. difficile colitis, Alzheimer's dementia currently on IV antibiotics via left upper extremity PICC line for endocarditis presents to the ED via rescue ambulance from [facility] for evaluation of 1 day history of increasing shortness of breath. No cough or hemoptysis. Patient denies chest pain or palpitations. No abdominal pain, nausea vomiting. No fevers or chills. ROS All systems reviewed and are negative except as per history of present illness. Medications Home Meds Active Scripts [Vancomycin Iv Per Pharmacy] 1 EA EACH No Conflict Check, 0 EA XX .PER PROTOCOL Prov:NUBIA TEJEDA MD 08/04/18 Reported Medications Clonidine Hcl* (Clonidine Hcl*) 0.1 Mg Tab, 0.1 MG PO Q8, TAB 06/25/18 Furosemide* (Furosemide*) 20 Mg Tablet, 20 MG PO DAILY 06/25/18 Carvedilol* (Carvedilol*) 3.125 Mg Tablet, 3.125 MG PO BID for 30 Days, #60 06/25/18 Amiodarone Hcl* (Amiodarone Hcl*) 200 Mg Tablet, 200 MG PO BID, #60 TAB 06/17/18 Dulaglutide (Trulicity) 0.75 Mg/0.5 Ml Pen.injctr, 1.75 MG SQ WEEKLY 06/11/18 Insulin Glargine,Hum.rec.anlog (Basaglar Kwikpen U-100) 100 Unit/1 Ml Insuln.pen, 20 UNIT SC DAILY, EA 06/11/18 Ferrous Sulfate (Ferrous Sulfate) 325 Mg Tablet.dr, 325 MG PO DAILY 06/11/18 Aspirin* (Aspirin* EC) 81 Mg Tablet.dr, 81 MG PO DAILY, TAB 06/11/18 Empagliflozin (Jardiance) 10 Mg Tablet, 10 MG PO DAILY, TAB 06/11/18 Esomeprazole Mag Trihydrate (Nexium) 20 Mg Capsule.dr, 20 MG PO AC BREAKFAST, #30 CAP 06/11/18 Docusate Sodium* (Colace*) 100 Mg Capsule, 100 MG PO TID, #60 CAP 06/11/18 Allopurinol* (Allopurinol*) 100 Mg Tablet, 100 MG PO BID, TAB 06/11/18 Allergies Allergies: Coded Allergies: No Known Allergies (Verified Allergy, Unknown, 08/01/18) PMhx/Soc Reviewed in chart. As per HPI. History of Surgery: Yes (s/p thrombectomy, LLE ) Anesthesia Reaction: No Hx Neurological Disorder: No Hx Respiratory Disorders: Yes Hx Cardiac Disorders: Yes (HTN;CHF; A-FIB; CARDIOMYOPATHY) Hx Psychiatric Problems: No Hx Miscellaneous Medical Probl: Yes (UTI, C-DIFF) Hx Alcohol Use: No Hx Substance Use: No Hx Tobacco Use: No Smoking Status: Unknown if ever smoked FmHx Unknown Physical Exam Vitals Temp: 97.7. Pulse: 99. Respirations: 32. Blood pressure: 163/77. O2 saturation 96% on 4 L. Physical Exam Const: Elderly, ill-appearing in moderate respiratory distress. Head: Atraumatic Eyes: Normal Conjunctiva ENT: Normal External Ears, Nose and Mouth. Neck: Full range of motion. JVD. No meningismus. No lymphadenopathy or masses. Resp: Breath sounds diminished at the bases left greater than right with crackles and mild expiratory wheezing. Cardio: Regular rate and rhythm, no murmurs Abd: Soft, non tender, non distended. No rebound or guarding. Normal bowel sounds Skin: No petechiae or rashes Back: No midline or flank tenderness Ext: Left lower extremity wound healing well with jacobo in place. No erythema, induration or drainage. Nontender. Neur: Awake and alert. Confused. No focal deficit observed. Psych: Cooperative. Does not appear anxious or depressed. Result Diagram: 08/04/1813 08/04/18612 Results 24 hrs Laboratory Tests Test 08/01/18 06:15 08/01/18 07:21 POC Venous Lactate 1.1 mmol/L White Blood Count 7.6 10^3/ul Red Blood Count 2.95 10^6/ul Hemoglobin 8.5 g/dl Hematocrit 29.5 % Mean Corpuscular Volume 100.0 fl Mean Corpuscular Hemoglobin 28.8 pg Mean Corpuscular Hemoglobin Concent 28.8 g/dl Red Cell Distribution Width 18.4 % Platelet Count 343 10^3/UL Mean Platelet Volume 10.4 fl Immature Granulocytes % 0.300 % Neutrophils % 76.6 % Lymphocytes % 13.5 % Monocytes % 6.9 % Eosinophils % 1.9 % Basophils % 0.8 % Nucleated Red Blood Cells % 0.0 /100WBC Immature Granulocytes # 0.020 10^3/ul Neutrophils # 5.8 10^3/ul Lymphocytes # 1.0 10^3/ul Monocytes # 0.5 10^3/ul Eosinophils # 0.1 10^3/ul Basophils # 0.1 10^3/ul Nucleated Red Blood Cells # 0.0 10^3/ul Sodium Level 146 mmol/L Potassium Level 4.4 mmol/L Chloride Level 109 mmol/L Carbon Dioxide Level 30 mmol/L Anion Gap 7 Blood Urea Nitrogen 21 mg/dl Creatinine 1.26 mg/dl Est Glomerular Filtrat Rate mL/min mL/min Glucose Level 185 mg/dl Calcium Level 9.6 mg/dl Total Bilirubin 0.4 mg/dl Direct Bilirubin 0.00 mg/dl Indirect Bilirubin 0.4 mg/dl Aspartate Amino Transf (AST/SGOT) 22 IU/L Alanine Aminotransferase (ALT/SGPT) 31 IU/L Alkaline Phosphatase 122 IU/L Troponin I 0.057 ng/ml Total Protein 6.5 g/dl Albumin 3.4 g/dl Globulin 3.10 g/dl Albumin/Globulin Ratio 1.09 Current Medications Medications Dose Sig/Peter Start Time Status Last (Trade) Ordered Route PRN Stop Time Admin Dose Reason Admin Albuterol 10 mg ONCE STAT 08/01/18 DC 08/01/18 (Proventil INH 06:19 08/01/18 07:46 0.5% (Neb)) 06:23 Furosemide 20 mg ONCE STAT 08/01/18 DC 08/01/18 (Lasix) IV 06:19 08/01/18 08:28 06:23 Procedures/MDM DOCUMENTS REVIEWED: ED nurse, prior ED, prior records including recent hospitalization. EKG: Time: 624. Sinus rhythm. Ventricular rate 91. Normal MI QRS. No acute ST segment elevation or depression. Poor R wave progression in the anterior leads. My Interpretation IMAGING: PROCEDURE: XR Chest. CLINICAL INDICATION: SOB TECHNIQUE: Single frontal view of the chest was obtained COMPARISON: 07/16/2018 FINDINGS: Sternotomy wires are again seen. A left PICC line remains in position. The heart remains enlarged There has been some worsening to a left pleural effusion which is now moderate in size with associated compressive atelectasis. There is a small right pleural effusion with associated compressive atelectasis. There is moderate pulmonary vascular congestion. The bones and soft tissue show no acute change. IMPRESSION: 1. Stable left PICC line. 2. Cardiomegaly. 3. There has been some worsening to a left pleural effusion which is now moderate in size with associated compressive atelectasis. 4. There is a small right pleural effusion with associated compressive atelectasis. 5. Moderate pulmonary vascular congestion. RPTAT:AAJJ Physician [place] Date Time Electronically viewed and signed by Rob Ward Physician on 08/01/2018 07:15 [facility]-year-old female history of hypertension, diabetes, congestive heart failure, atrial fibrillation, renal carcinoma status post remote nephrectomy, coronary artery disease status post CABG, atherosclerotic vascular disease status post recent thrombectomy of the left lower extremity, C. difficile colitis, Alzheimer's dementia currently on IV antibiotics via left upper extremity PICC line for endocarditis presents to the ED via rescue a mbulance from [facility] for evaluation of shortness of breath. Differential diagnosis includes but is not limited to congestive heart failure, acute coronary syndrome, pulmonary embolism, pneumonia, pneumothorax, pleural effusions and cardiac dysrhythmia. CBC reveals anemia with hemoglobin 8.5/29.5 which is actually improved from 7.9/26.1 on 07/16 but no leukocytosis or thrombocytopenia. Chemistry significant for mild hyponatremia and elevated BUN/creatinine 21/1.26 consistent with prior results. Troponin is 0.057. Lactic acid is 1.1. EKG did not reveal any acute ischemic changes or dysrhythmia. Chest x-ray reveals pulmonary vascular congestion with left greater than right pleural effusions consistent with congestive heart failure. Patient improved after treatment with diuretics and nebulized beta agonists. Criteria for systemic inflammatory response syndrome inc tachycardia and tachypnea however patient is already on antibiotics for endocarditis and there is no evidence of a new acute infectious process. Admit to telemetry for further evaluation and management. CRITICAL CARE TIME: Due to the high probability of imminent, clinically significant respiratory, hemodynamic and cardiovascular deterioration, this patient with extensive, complicated medical history who now presents with acute congestive heart failure required multiple, frequent reevaluations of vital signs and response to therapy. Additional critical care time was spent in extensive review of prior medical records, interpretation of relevant clinical data as well as arranging for admission and ongoing care with Dr Tejeda. TOTAL CRITICAL CARE TIME: 35 minutes not including other separately reportable procedures. PATIENT CARE TRANSITIONED: Time: 08:42, Dr. Tejeda. Departure Diagnosis: Primary Impression: Acute dyspnea Additional Impressions: Acute congestive heart failure Heart failure type: systolic Qualified Codes: I50.21 - Acute systolic (con gestive) heart failure Endocarditis Endocarditis type: infective Infective endocarditis organism: unspecified organism Chronicity: unspecified Qualified Codes: I33.0 - Acute and subacute infective endocarditis History of renal carcinoma Diabetes mellitus type 2 in obese Condition: Serious SARAH MONIQUE MD August 01, 2018 06:13
[2018-08-01] MEDS ORDERED: FUROSEMIDE 40 MG INJ IV STA (06:19)
[2018-08-01] MEDS ORDERED: ALBUTEROL 0.5% (NEB) 2.5 MG/0.5 ML AMP INH STA (06:19)
[2018-08-01] MEDS ORDERED: ACETAMINOPHEN 325 MG TAB PO PRN (09:30)
[2018-08-01] MEDS ORDERED: ONDANSETRON 4 MG INJ IV PRN (09:30)
[2018-08-01] MEDS ORDERED: VANCOMYCIN IV PER PHARMACY XX SCH (11:00)
--- NOTE | 2018-08-01 11:48 | CONS ---
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 Chest x-ray with evidence of pleural effusion and pulmonary vascular congestion -She does feel better after IV Lasix, would continue as renal function blood pressure permits -As mentioned on previous visits, patient with echo dense structure seen by the tricuspid valve, right atrium and IVC, differential includes thrombus, vegetation versus tumor. She is on antibiotics for possible endocarditis. She was having recurrent anemia requiring blood transfusion on anticoagulation, she is currently not on anticoagulation and I presume secondary to the reason mentioned. -Would recommend surgery follow-up to evaluate left lower extremity, I did tell the nurse Consultation Date/Type/Reason Admit Date/Time August 01, 2018 at 09:15 Type of Consult Cardiology Reason for Consultation Shortness of breath Date/Time of Note DATE: 08/01/18 TIME: 11:39 Hx of Present Illness This is an 82-year-old female well-known to me from multiple previous admissions who presents with worsening shortness of breath as of yesterday. As per family bedside inpatient, patient became short of breath yesterday afternoon yesterday evening. She denies any chest pain, dizziness or palpitations. Because of worsening symptoms, patient was brought to the emergency room from [facility] facility. She is currently feeling much better. She has minimal shortness of breath, denies any chest pain. She does have left lower extremity pain and discomfort which has been progressively getting better. She has had this pain after her recent thrombectomy to left lower extremity. 12 point review of systems was performed with all pertinent positives and negatives mentioned above and all else is negative Past Medical History Renal cell carcinoma Paroxysmal atrial fibrillation Medical History: congestive heart failure, diabetes, hypertension Home Meds Reported Medications Clonidine Hcl* (Clonidine Hcl*) 0.1 Mg Tab, 0.1 MG PO Q8, TAB 06/25/18 Furosemide* (Furosemide*) 20 Mg Tablet, 20 MG PO DAILY 06/25/18 Carvedilol* (Carvedilol*) 3.125 Mg Tablet, 3.125 MG PO BID for 30 Days, #60 06/25/18 Amiodarone Hcl* (Amiodarone Hcl*) 200 Mg Tablet, 200 MG PO BID, #60 TAB 06/17/18 Dulaglutide (Trulicity) 0.75 Mg/0.5 Ml Pen.injctr, 1.75 MG SQ WEEKLY 06/11/18 Insulin Glargine,Hum.rec.anlog (Basaglar Kwikpen U-100) 100 Unit/1 Ml Insuln.pen, 20 UNIT SC DAILY, EA 06/11/18 Ferrous Sulfate (Ferrous Sulfate) 325 Mg Tablet.dr, 325 MG PO DAILY 06/11/18 Aspirin* (Aspirin* EC) 81 Mg Tablet.dr, 81 MG PO DAILY, TAB 06/11/18 Empagliflozin (Jardiance) 10 Mg Tablet, 10 MG PO DAILY, TAB 06/11/18 Esomeprazole Mag Trihydrate (Nexium) 20 Mg Capsule.dr, 20 MG PO AC BREAKFAST, #30 CAP 06/11/18 Docusate Sodium* (Colace*) 100 Mg Capsule, 100 MG PO TID, #60 CAP 06/11/18 Allopurinol* (Allopurinol*) 100 Mg Tablet, 100 MG PO BID, TAB 06/11/18 Medications Current Medications Furosemide (Lasix) 40 mg BID DIURETICS IV ; Start 08/01/18 at 18:00 Vancomycin HCl (Vanco Iv Per Pharmacy) VANCOMYCIN PER PHARMACY PER PROTOCOL XX ; Start 08/01/18 at 11:00 Amiodarone HCl (Cordarone) 200 mg BID PO ; Start 08/01/18 at 12:00 Aspirin (Halfprin) 81 mg DAILY PO ; Start 08/02/18 at 09:00; Status UNV Carvedilol (Coreg) 3.125 mg BID PO ; Start 08/01/18 at 21:00; Status UNV Clonidine (Catapres) 0.1 mg Q8 PO ; Start 08/01/18 at 14:00; Status UNV Docusate Sodium (Colace) 100 mg TID PO ; Start 08/01/18 at 13:00 Insulin Glargine (Lantus) 20 unit DAILY SC ; Start 08/02/18 at 09:00; Status UNV Pantoprazole (Protonix Iv) 40 mg DAILY@06 IV ; Start 08/02/18 at 06:00; Status UNV Ferrous Sulfate (Feosol Liquid Cup) 300 mg BID GTB ; Start 08/01/18 at 12:00 Allergies: Coded Allergies: No Known Allergies (Verified Allergy, Unknown, 08/01/18) Past Surgical History Past Surgical Hx: coronary bypass surgery, other (Including but not limited to partial nephrectomy, thrombectomy) Family History Significant Family History: no pertinent family hx Social History Alcohol Use: none Smoking Status: Never smoker Other Social History From [facility] facility Exam/Review of Systems Vital Signs Vitals Vital Signs Date Temp Pulse Resp B/P (MAP) Pulse Ox O2 O2 Flow FiO2 Time Delivery Rate 08/01/18 Nasal 2.0 11:13 Cannula 08/01/18 95 10:53 08/01/18 98.6 18 184/77 94 10:30 (112) Exam Constitutional: alert, oriented (No apparent distress, family bedside) Head: normocephalic Respiratory: other (Coarse breath sounds bilaterally, decreased at the bases) Cardiovascular: regular rate and rhythm (S1-S2 heard) Gastrointestinal: soft, non-tender, bowel sounds Extremities: other (Possible necrosis around incision site on left lower extremity) Labs Result Diagram: 08/01/18 0721 08/01/18 0721 Results 24hrs Laboratory Tests Test 08/01/18 06:15 08/01/18 07:21 POC Venous Lactate 1.1 White Blood Count 7.6 # Red Blood Count 2.95 L Hemoglobin 8.5 L Hematocrit 29.5 L Mean Corpuscular Volume 100.0 Mean Corpuscular Hemoglobin 28.8 L Mean Corpuscular Hemoglobin Concent 28.8 L Red Cell Distribution Width 18.4 H Platelet Count 343 Mean Platelet Volume 10.4 Immature Granulocytes % 0.300 Neutrophils % 76.6 Lymphocytes % 13.5 L Monocytes % 6.9 Eosinophils % 1.9 Basophils % 0.8 Nucleated Red Blood Cells % 0.0 Immature Granulocytes # 0.020 Neutrophils # 5.8 Lymphocytes # 1.0 Monocytes # 0.5 Eosinophils # 0.1 Basophils # 0.1 Nucleated Red Blood Cells # 0.0 Sodium Level 146 H Potassium Level 4.4 Chloride Level 109 Carbon Dioxide Level 30 Anion Gap 7 Blood Urea Nitrogen 21 H Creatinine 1.26 H Est Glomerular Filtrat Rate mL/min Glucose Level 185 Calcium Level 9.6 Total Bilirubin 0.4 Direct Bilirubin 0.00 Indirect Bilirubin 0.4 Aspartate Amino Transf (AST/SGOT) 22 Alanine Aminotransferase (ALT/SGPT) 31 Alkaline Phosphatase 122 H Troponin I 0.057 Total Protein 6.5 Albumin 3.4 Globulin 3.10 Albumin/Globulin Ratio 1.09 Imaging Imaging ECG sinus rhythm, poor R wave progression, nonspecific ST abnormalities Medications Medications Current Medications Furosemide (Lasix) 40 mg BID DIURETICS IV ; Start 08/01/18 at 18:00 Vancomycin HCl (Vanco Iv Per Pharmacy) VANCOMYCIN PER PHARMACY PER PROTOCOL XX ; Start 08/01/18 at 11:00 Amiodarone HCl (Cordarone) 200 mg BID PO ; Start 08/01/18 at 12:00 Aspirin (Halfprin) 81 mg DAILY PO ; Start 08/02/18 at 09:00; Status UNV Carvedilol (Coreg) 3.125 mg BID PO ; Start 08/01/18 at 21:00; Status UNV Clonidine (Catapres) 0.1 mg Q8 PO ; Start 08/01/18 at 14:00; Status UNV Docusate Sodium (Colace) 100 mg TID PO ; Start 08/01/18 at 13:00 Insulin Glargine (Lantus) 20 unit DAILY SC ; Start 08/02/18 at 09:00; Status UNV Pantoprazole (Protonix Iv) 40 mg DAILY@06 IV ; Start 08/02/18 at 06:00; Status UNV Ferrous Sulfate (Feosol Liquid Cup) 300 mg BID GTB ; Start 08/01/18 at 12:00 Alex Chávez DO August 01, 2018 11:48
[2018-08-01] MEDS ORDERED: GLUCAGON 1 MG INJ IM PRN (12:00)
[2018-08-01] MEDS ORDERED: GLUCOSE GEL 15 GRAM TUBE PO PRN ×2 (12:00)
[2018-08-01] MEDS ORDERED: VANCOMYCIN HCL 1.5 GM in SOD CHLORIDE 0.9% 250 ML IVPB ONE (12:00)
[2018-08-01] MEDS ORDERED: GLUCOSE GEL 15 GRAM TUBE BUCCAL PRN (12:00)
[2018-08-01] MEDS ORDERED: DEXTROSE 50% 50 ML SYRINGE IV PRN ×2 (12:00)
[2018-08-01] MEDS: VANCOMYCIN HCL 1.25 GM in SOD CHLORIDE 0.9% 250 ML IVPB SCH (12:54)
[2018-08-01] MEDS: FERROUS SULFATE 60 MG/ML 5ML CUP GTB SCH ×2 (13:01→21:10)
[2018-08-01] MEDS: DOCUSATE SODIUM 100 MG CAP PO SCH ×2 (13:02→21:00)
[2018-08-01] MEDS: AMIODARONE 200 MG TAB PO SCH ×2 (13:03→21:12)
[2018-08-01] MEDS: FUROSEMIDE 40 MG INJ IV SCH (14:27)
[2018-08-01] MEDS: INSULIN ASPART [NOVOLOG] 3 ML PEN SC SCH ×2 (17:46→21:56)
--- NOTE | 2018-08-01 18:33 | CONS ---
DATE OF ADMISSION: 08/01/2018 DATE OF CONSULTATION: 08/01/2018 INFECTIOUS DISEASE CONSULTATION REASON FOR CONSULTATION: Antibiotic management. HISTORY OF PRESENT ILLNESS: Quintin Berman is an 82-year-old [place] female who was admit [facility]o with [facility]ness [facility] and is being seen for antibiotic managemen t. PAST PROBLEMS: Include: 1. Hypertension. 2. Diabetes mellitus. 3. Coronary artery disease with congestive heart failure. 4. Atrial fibrillation. 5. Renal cell carcinoma status post remote nephrectomy. 6. Status post coronary artery bypass graft. 7. Peripheral vascular disease. 8. Status post recent thrombectomy of the left lower extremity. 9. Clostridium difficile colitis. 10. Alzheimer dementia. The patient was on IV antibiotics via a left upper extremity PICC line for urinary tract infection. She [facility] emergency room [facility] for shortness of breath. The patien t has a cardiomyopathy in addition to her other problems. She is status post thrombectomy in the lef t lower extremity. FAMILY HISTORY: Noncontributory. SOCIAL HISTORY: She does not smoke, drink or abuse drugs. ALLERGIES: NONE TO PENICILLIN, SULFA OR FOODS. MEDICATIONS: Per chart. REVIEW OF SYSTEMS: As per HPI. PHYSICAL EXAMINATION: GENERAL: The patient is an elderly ill-appearing female who is awake, responsive, in no acute distre ss. VITAL SIGNS: Stable. She is afebrile. SKIN: Without generalized rash. HEENT: Within normal limits. NECK: Supple. LYMPH NODES: None palpable. CHEST: Decreased breath sounds at the bases. HEART: Without murmur or gallop. ABDOMEN: Soft, nontender, without organosplenomegaly or masses. EXTREMITIES: Without cyanosis, clubbing, or edema. RECTAL AND GENITAL: Deferred. NEUROLOGIC: No focal neurological abnormalities. Chest x-ray shows stable left PICC line, cardiomegaly, worsening of the left pleural effusion which i s now moderate in size with associated compressive atelectasis. There is a small right pleural effus ion with associated compressive atelectasis, moderate pulmonary vascular congestion. The patient was therefore admitted for acute dyspnea and shortness of breath. She was seen by Dr. Alex Chávez in cardiac evaluation. He noted acute decompensated systolic congestive heart failure which is improvi ng, cardiomyopathy with left ventricular ejection fraction of 50%, paroxysmal atrial fibrillation, et c. He noted that as mentioned in previous visits, an echo dense structure is seen by the tricuspid v alve, right atrium and IVC. Differential includes thrombus, vegetation versus tumor. She is on anti biotics for possible endocarditis. She was having recurrent anemia requiring blood transfusions. Dorene bhakta is currently on anticoagulation secondary to those reasons mentioned. She is currently on vancomyc in and we will continue her on this regimen. She is a patient of Dr. King. We will continue to observe. I want to thank Dr. King for asking us to see this kenia lady in consultation. Dictated By: TOIR IRVING MD, JD/JAYDEN Conf#: [id number] DID#: [id number]
[2018-08-01] MEDS ORDERED: PENDING SANTYL ORDER FOR WOUND CARE XX PRN (19:00)
--- NOTE | 2018-08-01 19:42 | HP ---
DATE OF ADMISSION: 08/01/2018 HISTORY OF PRESENT ILLNESS: An 82-year-old female on 08/01/2018. This is a patient who was transfer red from [facility] for acute shortness of breath and desaturation. In e emergency room, the patient was short of breath, seen by emergency room doctor and has done x-rays which showed pleural effusion and CHF. Further labs in the emergency room were stable enough for the patient to be transferred to [facility]. PAST MEDICAL HISTORY: Has endocarditis for which she has been on IV vancomycin for over 2 weeks now. The patient also has history of kidney cancer which has increased in size recently. History of typ e 2 diabetes mellitus uncontrolled, history of coronary artery disease, atrial fibrillation. She did not tolerate anticoagulation therapy, constant bleeding and anemia secondary to anticoagulation. Dorene bhakta is on no anticoagulation other than aspirin. She has history of hypertension, osteoarthritis, mild dementia, unstable gait and generalized weakness. HOME MEDICATIONS: As follows: She is on: 1. Albuterol breathing treatments on p.r.n. basis. 2. Lasix 20 mg daily. 3. Zofran 4 mg p.r.n. nausea, vomiting. 4. Tylenol on p.r.n. basis. 5. Vancomycin orally for C. diff colitis which she was positive. 6. Vancomycin IV for endocarditis. 7. Amiodarone 200 mg twice a day. 8. Carvedilol 3.125 twice a day. 9. Clonidine 0.1 p.r.n. for SBP over 160. 10. Protonix 40 mg daily. 11. Ferrous sulfate 325 p.o. b.i.d. Her last BUN and creatinine levels were more or less stable. Creatinine was 1.27 which is her baseli ne. ALLERGIES: NO KNOWN DRUG ALLERGIES. FAMILY HISTORY: Diabetes mellitus and hypertension. SOCIAL HISTORY: Negative for smoking or drug abuse or alcohol abuse. REVIEW OF SYSTEMS: The patient complains of generalized weakness and headaches, frequent diaphoresis . She complains of shortness of breath. Denies of any chest pain. Denies of any abdominal pain, bu t is having diarrhea frequently still 3 to 4 times a day. Denies of any cough or sputum production r ecently or fever. Denies of any hesitancy, urgency or pain during urination. PHYSICAL EXAMINATION: VITAL SIGNS: Today blood pressure is 138/65, heart rate is 92, respiratory rate 18, has temperature of 99.3 and saturating 97% on nasal cannula of 2 liters. GENERAL: Alert and oriented x3, in no acute distress, looks pale and tired. HEENT: Head is atraumatic, normocephalic. Pupils are equal and reactive to light. Extraocular musc les are intact. Nares are clear. No obstruction, no deviation of the septum. Oral cavity is normal , oral hygiene. Ear canals are clear. No signs of inflammation or infection. Tympanic membranes ar e intact. NECK: Supple. No JVD, no surgical scars, no lymph nodes palpable over the neck. CHEST: AP contour is within normal limits. BREASTS: Nipples are normal. No nipple retraction. HEART: AFib, controlled rate with cardiomegaly. LUNGS: Crackles over the bases of the lungs bilaterally. No wheezes. ABDOMEN: Soft, obese. Positive bowel sounds. No hepatosplenomegaly. No masses palpable over the a bdomen. No rebound tenderness. EXTREMITIES: No edema, clubbing or cyanosis. Her left lower extremity still has the jacobo over wh ere surgical intervention was done for thrombectomy, awaiting for Dr. Dawson's okay to remove the jacobo. No edema over the lower extremities. LABORATORY DATA: Today CBC: White blood cells 7.6, hemoglobin 8.5, hematocrit 29.5 and platelet cou nt 343. Chemistry: Sodium is 146, potassium 4.4, BUN 21 and creatinine 1.26 which is her baseline o xygen. Alkaline phosphatase was elevated of course. Troponins are negative. DIAGNOSTIC DATA: Chest x-ray is showing pleural effusion and CHF. ADMITTING DIAGNOSES: 1. Acute congestive heart failure exacerbation. 2. Acute systolic and diastolic heart failure. 3. Type 2 diabetes mellitus, uncontrolled. 4. Clostridium difficile colitis. 5. Atrial fibrillation. 6. Coronary artery disease. 7. Renal cancer. PLAN: We will admit the patient to tele. We will start diuresing the patient. I discussed with Dr. Chávez in detail regarding diuresis and possible thoracentesis. If diuresis does not work, we will discuss also over the phone call with Dr. Dawson to remove jacobo over the lower extremities and also discuss with ID, Dr. Elias, for continuation of IV antibiotics or possible discontinuation of t he antibiotics. Dictated By: NUBIA TEJEDA MD SB/NTS Conf#: [id number] DID#: [id number] CC: ELMER CHÁVEZ DO;*EndCC*
[2018-08-02] VITALS (12 sets, daily range): BP systolic 110–146; BP diastolic 56–86; PULSE 61–81; RESP 18–22
[2018-08-02] MEDS: ACCUCHECK AT 2AM (Patients on SS coverage) XX SCH (01:48)
[2018-08-02] MEDS: FUROSEMIDE 40 MG INJ IV SCH ×2 (06:05→17:32)
[2018-08-02] MEDS: PANTOPRAZOLE 40 MG INJ IV SCH (06:06)
[2018-08-02] MEDS ORDERED: INSULIN GLARGINE [LANtus] 3 ML PEN SC SCH (09:00)
[2018-08-02] MEDS: AMIODARONE 200 MG TAB PO SCH ×2 (09:11→21:00)
[2018-08-02] MEDS: FERROUS SULFATE 60 MG/ML 5ML CUP GTB SCH ×2 (09:11→20:58)
[2018-08-02] MEDS: ASPIRIN (EC) 81 MG TAB PO SCH (09:12)
[2018-08-02] MEDS: DOCUSATE SODIUM 100 MG CAP PO SCH ×2 (09:12→12:36)
[2018-08-02] MEDS: INSULIN ASPART [NOVOLOG] 3 ML PEN SC SCH ×4 (10:13→21:38)
[2018-08-02] MEDS: INSULIN GLARGINE [LANTus] (100 UNITS/ML) SYG SC SCH (10:13)
--- NOTE | 2018-08-02 11:07 | CONS ---
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% Paroxysmal atrial fibrillation History of occlusive left common femoral artery status post thrombectomy Echo dense structure seen by tricuspid valve, right atrium and IVC-thrombus, vegetation versus tumor CAD with history of CABG History of renal carcinoma status post nephrectomy approximately 8 years ago Hypertension Diabetes Plan: continue lasix for now chest us pending not on AC due to intolerance dw family Consultation Date/Type/Reason Admit Date/Time August 01, 2018 at 09:15 Initial Consult Date Type of Consult Cardiology Date/Time of Note DATE: 08/02/18 TIME: 11:05 24 HR Interval Summary Free Text/Dictation resting while lying supine, no chest pain Detailed Summary Respiratory: no complaints Cardiovascular: no complaints Musculoskeletal: no complaints Skin: no complaints Neurologic: no complaints Exam/Review of Systems Vital Signs Vitals Vital Signs Date Temp Pulse Resp B/P (MAP) Pulse Ox O2 O2 Flow FiO2 Time Delivery Rate 08/02/18 69 08:09 08/02/18 97.7 20 126/60 100 Nasal 07:31 (82) Cannula 08/02/18 3.0 06:06 Intake and Output 08/01/18 08/01/18 08/02/18 1515:00 23:00 07:00 IntakeIntake Total 970 ml 350 ml BalanceBalance 970 ml 350 ml Exam Constitutional: frail Head: normocephalic, atraumatic Neck: jvd Respiratory: diminished breath sounds Cardiovascular: irregular rhythm Musculoskeletal: nl extremities to inspection Extremities: normal pulses Labs Result Diagram: 08/02/18 0550 08/02/18 0550 Results 24hrs Laboratory Tests Test 08/01/18 17:40 08/01/18 21:08 08/02/18 01:45 08/02/18 05:50 Bedside Glucose 251 H 229 H 240 H White Blood Count 7.6 Red Blood Count 2.59 L Hemoglobin 7.4 L Hematocrit 25.4 L Mean Corpuscular Volume 98.1 Mean Corpuscular 28.6 L Hemoglobin Mean Corpuscular 29.1 L Hemoglobin Concent Red Cell Distribution 18.1 H Width Platelet Count 280 Mean Platelet Volume 10.7 H Immature Granulocytes % 0.400 Neutrophils % 78.1 H Lymphocytes % 15.1 Monocytes % 4.8 Eosinophils % 0.8 Basophils % 0.8 Nucleated Red Blood 0.0 Cells % Immature Granulocytes # 0.030 Neutrophils # 5.9 Lymphocytes # 1.1 Monocytes # 0.4 Eosinophils # 0.1 Basophils # 0.1 Nucleated Red Blood 0.0 Cells # Sodium Level 143 Potassium Level 4.9 Chloride Level 107 Carbon Dioxide Level 32 H Anion Gap 4 L Blood Urea Nitrogen 27 H Creatinine 1.37 H Est Glomerular Filtrat Rate mL/min Glucose Level 218 Calcium Level 9.3 B-Type Natriuretic 81504 H Peptide Test 08/02/18 08:30 08/02/18 09:09 Bedside Glucose 244 H 231 H Medications Medications Current Medications Furosemide (Lasix) 40 mg BID DIURETICS IV Last administered on 08/02/18 06:05; Admin Dose 40 MG; Start 08/01/18 at 14:30 Vancomycin HCl (Vanco Iv Per Pharmacy) VANCOMYCIN PER PHARMACY PER PROTOCOL XX ; Start 08/01/18 at 11:00 Amiodarone HCl (Cordarone) 200 mg BID PO Last administered on 08/02/18 09:11; Admin Dose 200 MG; Start 08/01/18 at 12:00 Aspirin (Halfprin) 81 mg DAILY PO Last administered on 08/02/18 09:12; Admin Dose 81 MG; Start 08/02/18 at 09:00 Carvedilol (Coreg) 3.125 mg BID PO Last administered on 08/02/18 09:12; Admin Dose 3.125 MG; Start 08/01/18 at 21:00 Clonidine (Catapres) 0.1 mg Q8 PO Last administered on 08/02/18 06:06; Admin Dose 0.1 MG; Start 08/01/18 at 14:00 Docusate Sodium (Colace) 100 mg TID PO Last administered on 08/02/18 09:12; Admin Dose 100 MG; Start 08/01/18 at 13:00 Pantoprazole (Protonix Iv) 40 mg DAILY@06 IV Last administered on 08/02/18 06:06; Admin Dose 40 MG; Start 08/02/18 at 06:00 Ferrous Sulfate (Feosol Liquid Cup) 300 mg BID GTB Last administered on 08/02/18 09:11; Admin Dose 300 MG; Start 08/01/18 at 12:00 Vancomycin HCl 1.25 gm/Sodium Chloride 250 ml @ 83.333 mls/ hr Q24H IVPB Last administered on 08/01/18at 12:54; Admin Dose 83.333 MLS/HR; Start 08/01/18 at 12:30 Miscellaneous Information 1 ea NOTE XX ; Start 08/01/18 at 12:00 Glucose (Glutose) 15 gm Q15M PRN PO DECREASED GLUCOSE; Start 08/01/18 at 12:00 Glucose (Glutose) 22.5 gm Q15M PRN PO DECREASED GLUCOSE; Start 08/01/18 at 12:00 Dextrose (D50w Syringe) 25 ml Q15M PRN IV DECREASED GLUCOSE; Start 08/01/18 at 12:00 Dextrose (D50w Syringe) 50 ml Q15M PRN IV DECREASED GLUCOSE; Start 08/01/18 at 12:00 Glucagon (Glucagen) 1 mg Q15M PRN IM DECREASED GLUCOSE; Start 08/01/18 at 12:00 Glucose (Glutose) 15 gm Q15M PRN BUCCAL DECREASED GLUCOSE; Start 08/01/18 at 12:00 Insulin Glargine (Lantus) 20 units DAILY SC Last administered on 08/02/18at 10:13; Admin Dose 20 UNITS; Start 08/02/18 at 09:00 Insulin Aspart (Novolog Insulin Pen) NOVOLOG *MODERATE* ALGORITHM WITH MEALS BEDTIME SC Last administered on 08/02/18at 10:13; Admin Dose 6 UNIT; Start 08/01/18 at 17:55 Diagnostic Test (Pha) (Accu-Chek) 1 ea 02 XX Last administered on 08/02/18at 01:48; Admin Dose 1 EA; Start 08/02/18 at 02:00 Miscellaneous Information (Pending Santyl Order For Wound Care) This patient green... PRN PRN XX WOUND CARE; Start 08/01/18 at 19:00 TOÑA JUDGE MD August 02, 2018 11:07
[2018-08-02] MEDS: VANCOMYCIN HCL 1.25 GM in SOD CHLORIDE 0.9% 250 ML IVPB SCH (12:25)
--- NOTE | 2018-08-02 14:08 | CONS ---
Assessment/Plan Assessment/Plan Hospital Course (Demo Recall) No acute changes overnight patient is alert looks comfortable denies pain no fevers overnight no diarrhea nausea or vomiting Indwelling: Left upper extremity PICC line WBC 7.6 H&H 7.4 and 25.4 platelets 280 neutrophils 78.1 BUN 27 creatinine 1.37 Chest x-ray on admission revealed cardiomegaly and bilateral pleural effusion left worse than right. Moderate pulmonary vascular congestion. Ultrasound of the chest this morning revealed small right pleural effusion. Antimicrobials: IV vancomycin Physical examination: This is a fragile well-developed and very pleasant [place] woman who is alert in no distress. Head atraumatic normocephalic sclera nonicteric. Neck is supple. Chest rise symmetrical, breath sounds diminished to bases. Heart: S1-S2. Abdomen soft bowel sounds present. Extremities with trace edema. Left lower extremity with erythema over the calf and necrotic area next to the scar on the top of the incision . Assessment: 1. CHF exacerbation 2. Occlusive left common femoral artery status post thrombectomy 3. Coronary artery disease, history of CABG 4. Paroxysmal atrial fibrillation 5. Diabetes 6. Abnormal 2D echo, rule out vegetations versus thrombus versus tumor on the right atrium 7. History of renal cell carcinoma status post partial nephrectomy 8. History of C. difficile colitis and urinary tract infection Plan: Remains stable, on antibiotics to complete 6 weeks for possible endocarditis==> last dose August 18, continue present care per primary team and consultants Consultation Date/Type/Reason Admit Date/Time August 01, 2018 at 09:15 Initial Consult Date Type of Consult id Date/Time of Note DATE: 08/02/18 TIME: 14:04 Exam/Review of Systems Exam Vitals Vital Signs Date Temp Pulse Resp B/P (MAP) Pulse Ox O2 O2 Flow FiO2 Time Delivery Rate 08/02/18 68 12:10 08/02/18 98.0 20 110/56 100 Mechanical 11:25 (74) Ventilator Nasal Cannula 08/02/18 2.0 08:31 Intake and Output 08/01/18 08/01/18 08/02/18 1515:00 23:00 07:00 IntakeIntake Total 970 ml 350 ml BalanceBalance 970 ml 350 ml Results Result Diagram: 08/02/18 0550 08/02/18 0550 Results 24hrs Laboratory Tests Test 08/01/18 17:40 08/01/18 21:08 08/02/18 01:45 08/02/18 05:50 Bedside Glucose 251 H 229 H 240 H White Blood Count 7.6 Red Blood Count 2.59 L Hemoglobin 7.4 L Hematocrit 25.4 L Mean Corpuscular Volume 98.1 Mean Corpuscular 28.6 L Hemoglobin Mean Corpuscular 29.1 L Hemoglobin Concent Red Cell Distribution 18.1 H Width Platelet Count 280 Mean Platelet Volume 10.7 H Immature Granulocytes % 0.400 Neutrophils % 78.1 H Lymphocytes % 15.1 Monocytes % 4.8 Eosinophils % 0.8 Basophils % 0.8 Nucleated Red Blood 0.0 Cells % Immature Granulocytes # 0.030 Neutrophils # 5.9 Lymphocytes # 1.1 Monocytes # 0.4 Eosinophils # 0.1 Basophils # 0.1 Nucleated Red Blood 0.0 Cells # Sodium Level 143 Potassium Level 4.9 Chloride Level 107 Carbon Dioxide Level 32 H Anion Gap 4 L Blood Urea Nitrogen 27 H Creatinine 1.37 H Est Glomerular Filtrat Rate mL/min Glucose Level 218 Calcium Level 9.3 B-Type Natriuretic 09175 H Peptide Test 08/02/18 08:30 08/02/18 09:09 08/02/18 12:26 Bedside Glucose 244 H 231 H 184 Medications Medication Current Medications Furosemide (Lasix) 40 mg BID DIURETICS IV Last administered on 08/02/18 06:05; Admin Dose 40 MG; Start 08/01/18 at 14:30 Vancomycin HCl (Vanco Iv Per Pharmacy) VANCOMYCIN PER PHARMACY PER PROTOCOL XX ; Start 08/01/18 at 11:00 Amiodarone HCl (Cordarone) 200 mg BID PO Last administered on 08/02/18at 09:11; Admin Dose 200 MG; Start 08/01/18 at 12:00 Aspirin (Halfprin) 81 mg DAILY PO Last administered on 08/02/18 09:12; Admin Dose 81 MG; Start 08/02/18 at 09:00 Carvedilol (Coreg) 3.125 mg BID PO Last administered on 08/02/18 09:12; Admin Dose 3.125 MG; Start 08/01/18 at 21:00 Clonidine (Catapres) 0.1 mg Q8 PO Last administered on 08/02/18 06:06; Admin Dose 0.1 MG; Start 08/01/18 at 14:00 Pantoprazole (Protonix Iv) 40 mg DAILY@06 IV Last administered on 08/02/18at 06:06; Admin Dose 40 MG; Start 08/02/18 at 06:00 Ferrous Sulfate (Feosol Liquid Cup) 300 mg BID GTB Last administered on 08/02/18at 09:11; Admin Dose 300 MG; Start 08/01/18 at 12:00 Vancomycin HCl 1.25 gm/Sodium Chloride 250 ml @ 83.333 mls/ hr Q24H IVPB Last administered on 08/02/18at 12:25; Admin Dose 83.333 MLS/HR; Start 08/01/18 at 12:30 Miscellaneous Information 1 ea NOTE XX ; Start 08/01/18 at 12:00 Glucose (Glutose) 15 gm Q15M PRN PO DECREASED GLUCOSE; Start 08/01/18 at 12:00 Glucose (Glutose) 22.5 gm Q15M PRN PO DECREASED GLUCOSE; Start 08/01/18 at 12:00 Dextrose (D50w Syringe) 25 ml Q15M PRN IV DECREASED GLUCOSE; Start 08/01/18 at 12:00 Dextrose (D50w Syringe) 50 ml Q15M PRN IV DECREASED GLUCOSE; Start 08/01/18 at 12:00 Glucagon (Glucagen) 1 mg Q15M PRN IM DECREASED GLUCOSE; Start 08/01/18 at 12:00 Glucose (Glutose) 15 gm Q15M PRN BUCCAL DECREASED GLUCOSE; Start 08/01/18 at 12:00 Insulin Glargine (Lantus) 20 units DAILY SC Last administered on 08/02/18at 10:13; Admin Dose 20 UNITS; Start 08/02/18 at 09:00 Insulin Aspart (Novolog Insulin Pen) NOVOLOG *MODERATE* ALGORITHM WITH MEALS BEDTIME SC Last administered on 08/02/18at 12:49; Admin Dose 4 UNIT; Start 08/01/18 at 17:55 Diagnostic Test (Pha) (Accu-Chek) 1 ea 02 XX Last administered on 08/02/18at 01:48; Admin Dose 1 EA; Start 08/02/18 at 02:00 Miscellaneous Information (Pending Santyl Order For Wound Care) This patient green... PRN PRN XX WOUND CARE; Start 08/01/18 at 19:00 Epoetin Alejo-epbx (RETACRIT(non-esrd)) 10,000 unit ONCE ONCE SC ; Start 08/02/18 at 17:00; Stop 08/02/18 at 17:01 Alprazolam (Xanax) 0.25 mg BID NGT ; Start 08/02/18 at 21:00 BARBARA ORDAZ NP August 02, 2018 14:08
[2018-08-02] MEDS ORDERED: EPOETIN ALFA-EPBX (NON-ESRD 10,000 UNIT/ML VIAL SC ONE (17:00)
[2018-08-02] MEDS: ALPRAZOLAM 0.25 MG TAB NGT SCH (20:59)
[2018-08-03] VITALS (11 sets, daily range): BP systolic 114–135; BP diastolic 58–79; PULSE 61–67; RESP 18–20
[2018-08-03] MEDS: ACCUCHECK AT 2AM (Patients on SS coverage) XX SCH (02:00)
[2018-08-03] MEDS: PANTOPRAZOLE 40 MG INJ IV SCH (05:59)
[2018-08-03] MEDS: FUROSEMIDE 40 MG INJ IV SCH (05:59)
[2018-08-03] MEDS: INSULIN GLARGINE [LANTus] (100 UNITS/ML) SYG SC SCH (07:41)
[2018-08-03] MEDS: INSULIN ASPART [NOVOLOG] 3 ML PEN SC SCH ×4 (07:42→21:00)
[2018-08-03] MEDS: FERROUS SULFATE 60 MG/ML 5ML CUP GTB SCH ×2 (08:26→21:19)
[2018-08-03] MEDS: ALPRAZOLAM 0.25 MG TAB NGT SCH ×2 (08:26→21:20)
[2018-08-03] MEDS: ASPIRIN (EC) 81 MG TAB PO SCH (08:26)
[2018-08-03] MEDS: AMIODARONE 200 MG TAB PO SCH ×2 (08:27→21:20)
--- NOTE | 2018-08-03 10:52 | PN ---
DATE: 08/02/2018 An 82-year-old female who was admitted yesterday for acute shortness of breath and CHF exacerbation. The patient was seen by me in the morning on telemetry floor. Today, the patient is doing much bett er. She just had an episode of anxiety at night and palpitations with diaphoresis. Nurse was next t o her and came next to her and sat with her for a few minutes. After that, the patient slept again. She is having frequent episodes of anxiety when being left alone. Otherwise, no acute chest pain, n o acute discomfort over the heart or shortness of breath. The patient today looking much better, jes athing much better. She was eating her lunch. She came in for acute exacerbation of CHF and pleural effusion. She was started on antidiuretic. She was diuresed. She was started on diuretic medicati ons and seen by the cord splicer and infectionist. The patient today, alert and oriented x3, in no a cute distress. She looks pale, but that is her usual. She denies of any chest pain, denies of any a bdominal pain. Denies of any nausea, vomiting. Has had 2 small bowel movements. Soft, no diarrhea. Denies any hesitancy, urgency or pain during urination. PHYSICAL EXAMINATION: VITAL SIGNS: Today blood pressure was 130/60, heart rate 80, respiratory rate 18, afebrile. HEENT: Atraumatic, normocephalic. Pupils are equal and reactive to light. Extraocular muscles are intact. Nares are clear, no obstruction, no deviation of septum. Oral cavity normal oral hygiene. Ear canals are clear, no signs of inflammation or infection. Tympanic membranes intact. NECK: Supple. No JVD, no surgical scars, no lymph nodes palpable over the neck. CHEST: AP contour within normal limits. Breasts and nipples are normal, no nipple retraction. HEART: AFib, controlled rate. LUNGS: Still hearing crackles over the bases of the lungs, left more than the right, but much better than yesterday. No wheezes. ABDOMEN: Soft, positive bowel sounds, no hepatosplenomegaly, no masses palpable over the abdomen and no rebound tenderness. EXTREMITIES: No edema, clubbing or cyanosis of the extremities. She still has the jacobo over the lower extremities and some skin over the surgical area over the lower extremity, some eschar the re, which is black. Pulses are palpable. LABORATORY DATA: Today CBC: White blood cell 7.6, hemoglobin 7.4, hematocrit 25.4 and platelet coun t 280. Chemistry: Sodium 143, potassium 4.9, BUN 27, creatinine 1.37 and still elevated BNP. ASSESSMENT AND PLAN: We will continue diuresing the patient will start on a low dose of Xanax twice a day to control the anxiety. Will start Epogen treatment for the patient for the chronic anemia of kidney disease and will also discuss call Dr. Dawson to remove the jacobo over the lower extremit y which he has done the surgery over 2 to 3 weeks ago. DIAGNOSIS: CHF exacerbation, acute on chronic kidney disease, anxiety, type 2 diabetes mellitus, unc ontrolled, hypertension, atrial fibrillation and peripheral vascular disease. We will continue treat ing the patient will follow up tomorrow and plan discharging if the patient improves. Dictated By: NUBIA BREWER/JAYDEN Conf#: [id number] DID#: [id number] CC: ELMER ESPITIA DO;*EndCC*
--- NOTE | 2018-08-03 11:34 | CONS ---
Consultation Date/Type/Reason Admit Date/Time August 01, 2018 at 09:15 Initial Consult Date SUBJECTIVE: Patient is awake, alert, resting in bed and afebrile. Family at bedside. VS: stable T: 97.6 LABS: Reviewed. WBC- 6.1 Indwelling: Left upper extremity PICC line Chest x-ray on admission revealed cardiomegaly and bilateral pleural effusion left worse than right. Moderate pulmonary vascular congestion. Ultrasound of the chest this morning revealed small right pleural effusion. Antimicrobials: IV vancomycin Physical examination: GEN: This is a fragile well-developed and very pleasant Romansh woman, who is alert in no distress. HENT: Head atraumatic normocephalic, sclera nonicteric. Neck is supple. PULM: Chest rise symmetrical, breath sounds diminished to bases. Heart: S1-S2. Abdomen: soft, bowel sounds present. Extremities with trace edema. Left lower extremity with erythema over the calf and necrotic area next to the scar on the top of the incision . Assessment: 1. CHF exacerbation 2. Occlusive left common femoral artery status post thrombectomy 3. Coronary artery disease, history of CABG 4. Paroxysmal atrial fibrillation 5. Diabetes 6. Abnormal 2D echo, rule out vegetations versus thrombus versus tumor on the right atrium 7. History of renal cell carcinoma status post partial nephrectomy 8. History of C. difficile colitis and urinary tract infection Plan: Remains stable. continue current antibiotics to complete 6 weeks for possible endocarditis==> last dose August 18. Cardio following. Date/Time of Note DATE: 08/03/18 TIME: 11:32 Exam/Review of Systems Exam Vitals Vital Signs Date Temp Pulse Resp B/P (MAP) Pulse Ox O2 O2 Flow FiO2 Time Delivery Rate 08/03/18 64 08:10 08/03/18 Nasal 2.0 08:10 Cannula 08/03/18 97.6 20 130/62 98 07:44 (84) Intake and Output 08/02/18 08/02/18 08/03/18 1414:59 22:59 06:59 IntakeIntake Total 300 ml OutputOutput Total 600 ml BalanceBalance -300 ml Results Result Diagram: 08/03/18 0610 08/03/18 0609 Results 24hrs Laboratory Tests Test 08/02/18 12:26 08/02/18 17:38 08/02/18 20:57 08/03/18 06:09 Bedside Glucose 184 157 269 H Sodium Level 143 Potassium Level 4.3 Chloride Level 107 Carbon Dioxide Level 29 Anion Gap 7 Blood Urea Nitrogen 34 H Creatinine 1.64 H Est Glomerular Filtrat Rate mL/min Glucose Level 185 Calcium Level 8.9 B-Type Natriuretic 7430 H Peptide Test 08/03/18 06:10 08/03/18 07:37 White Blood Count 6.1 Red Blood Count 2.66 L Hemoglobin 7.5 L Hematocrit 25.9 L Mean Corpuscular Volume 97.4 Mean Corpuscular 28.2 L Hemoglobin Mean Corpuscular 29.0 L Hemoglobin Concent Red Cell Distribution 17.7 H Width Platelet Count 260 Mean Platelet Volume 10.7 H Immature Granulocytes % 0.500 H Neutrophils % 60.2 Lymphocytes % 24.0 Monocytes % 10.7 Eosinophils % 3.6 Basophils % 1.0 Nucleated Red Blood 0.0 Cells % Immature Granulocytes # 0.030 Neutrophils # 3.6 Lymphocytes # 1.5 Monocytes # 0.7 Eosinophils # 0.2 Basophils # 0.1 Nucleated Red Blood 0.0 Cells # Bedside Glucose 210 Medications Medication Current Medications Furosemide (Lasix) 40 mg BID DIURETICS IV Last administered on 08/03/18 05:59; Admin Dose 40 MG; Start 08/01/18 at 14:30 Vancomycin HCl (Vanco Iv Per Pharmacy) VANCOMYCIN PER PHARMACY PER PROTOCOL XX ; Start 08/01/18 at 11:00 Amiodarone HCl (Cordarone) 200 mg BID PO Last administered on 08/03/18 08:27; Admin Dose 200 MG; Start 08/01/18 at 12:00 Aspirin (Halfprin) 81 mg DAILY PO Last administered on 08/03/18 08:26; Admin Dose 81 MG; Start 08/02/18 at 09:00 Carvedilol (Coreg) 3.125 mg BID PO Last administered on 08/03/18 08:26; Admin Dose 3.125 MG; Start 08/01/18 at 21:00 Clonidine (Catapres) 0.1 mg Q8 PO Last administered on 08/03/18 06:00; Admin Dose 0.1 MG; Start 08/01/18 at 14:00 Pantoprazole (Protonix Iv) 40 mg DAILY@06 IV Last administered on 08/03/18 05:59; Admin Dose 40 MG; Start 08/02/18 at 06:00 Ferrous Sulfate (Feosol Liquid Cup) 300 mg BID GTB Last administered on 08/03/18 t 08:26; Admin Dose 300 MG; Start 08/01/18 at 12:00 Miscellaneous Information 1 ea NOTE XX ; Start 08/01/18 at 12:00 Glucose (Glutose) 15 gm Q15M PRN PO DECREASED GLUCOSE; Start 08/01/18 at 12:00 Glucose (Glutose) 22.5 gm Q15M PRN PO DECREASED GLUCOSE; Start 08/01/18 at 12:00 Dextrose (D50w Syringe) 25 ml Q15M PRN IV DECREASED GLUCOSE; Start 08/01/18 at 12:00 Dextrose (D50w Syringe) 50 ml Q15M PRN IV DECREASED GLUCOSE; Start 08/01/18 at 12:00 Glucagon (Glucagen) 1 mg Q15M PRN IM DECREASED GLUCOSE; Start 08/01/18 at 12:00 Glucose (Glutose) 15 gm Q15M PRN BUCCAL DECREASED GLUCOSE; Start 08/01/18 at 12:00 Insulin Glargine (Lantus) 20 units DAILY SC Last administered on 08/03/18 07:41; Admin Dose 20 UNITS; Start 08/02/18 at 09:00 Insulin Aspart (Novolog Insulin Pen) NOVOLOG *MODERATE* ALGORITHM WITH MEALS BEDTIME SC Last administered on 08/03/18 07:42; Admin Dose 4 UNIT; Start 08/01/18 at 17:55 Diagnostic Test (Pha) (Accu-Chek) 1 ea 02 XX Last administered on 08/02/18 01:48; Admin Dose 1 EA; Start 08/02/18 at 02:00 Miscellaneous Information [facility] This patient green... PRN PRN XX WOUND CARE; Start 08/01/18 at 19:00 Alprazolam (Xanax) 0.25 mg BID NGT Last administered on 08/03/18 08:26; Admin Dose 0.25 MG; Start 08/02/18 at 21:00 Vancomycin HCl 1.25 gm/Sodium Chloride 250 ml @ 83.333 mls/ hr Q36H IVPB ; Start 08/04/18 at 01:00 ALEM ANDRES August 03, 2018 11:34
--- NOTE | 2018-08-03 13:38 | CONS ---
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% Paroxysmal atrial fibrillation History of occlusive left common femoral artery status post thrombectomy Echo dense structure seen by tricuspid valve, right atrium and IVC-thrombus, vegetation versus tumor CAD with history of CABG History of renal carcinoma status post nephrectomy approximately 8 years ago Hypertension Diabetes Plan: decrease lasix as creatinine rising residual trace edema but significant improvement in symptoms chest us small right sided effusion no indication for tap at this time not on AC due to intolerance dw family Exam/Review of Systems Vital Signs Vitals Vital Signs Date Temp Pulse Resp B/P (MAP) Pulse Ox O2 O2 Flow FiO2 Time Delivery Rate 08/03/18 67 12:32 08/03/18 98.0 20 135/60 95 Nasal 11:44 (85) Cannula 08/03/18 2.0 08:10 Intake and Output 08/02/18 08/02/18 08/03/18 1515:00 23:00 07:00 IntakeIntake Total 300 ml OutputOutput Total 600 ml BalanceBalance -300 ml Exam Constitutional: alert Respiratory: diminished breath sounds (slight) Extremities: edema (trace) Labs Result Diagram: 08/03/18 0610 08/03/18 0609 Results 24hrs Laboratory Tests Test 08/02/18 17:38 08/02/18 20:57 08/03/18 06:09 08/03/18 06:10 Bedside Glucose 157 269 H Sodium Level 143 Potassium Level 4.3 Chloride Level 107 Carbon Dioxide Level 29 Anion Gap 7 Blood Urea Nitrogen 34 H Creatinine 1.64 H Est Glomerular Filtrat Rate mL/min Glucose Level 185 Calcium Level 8.9 B-Type Natriuretic 7430 H Peptide White Blood Count 6.1 Red Blood Count 2.66 L Hemoglobin 7.5 L Hematocrit 25.9 L Mean Corpuscular Volume 97.4 Mean Corpuscular 28.2 L Hemoglobin Mean Corpuscular 29.0 L Hemoglobin Concent Red Cell Distribution 17.7 H Width Platelet Count 260 Mean Platelet Volume 10.7 H Immature Granulocytes % 0.500 H Neutrophils % 60.2 Lymphocytes % 24.0 Monocytes % 10.7 Eosinophils % 3.6 Basophils % 1.0 Nucleated Red Blood 0.0 Cells % Immature Granulocytes # 0.030 Neutrophils # 3.6 Lymphocytes # 1.5 Monocytes # 0.7 Eosinophils # 0.2 Basophils # 0.1 Nucleated Red Blood 0.0 Cells # Test 08/03/18 07:37 08/03/18 11:29 Bedside Glucose 210 250 H Medications Medications Current Medications Furosemide (Lasix) 40 mg BID DIURETICS IV Last administered on 08/03/18 05:59; Admin Dose 40 MG; Start 08/01/18 at 14:30 Vancomycin HCl (Vanco Iv Per Pharmacy) VANCOMYCIN PER PHARMACY PER PROTOCOL XX ; Start 08/01/18 at 11:00 Amiodarone HCl (Cordarone) 200 mg BID PO Last administered on 08/03/18 08:27; Admin Dose 200 MG; Start 08/01/18 at 12:00 Aspirin (Halfprin) 81 mg DAILY PO Last administered on 08/03/18 08:26; Admin Dose 81 MG; Start 08/02/18 at 09:00 Carvedilol (Coreg) 3.125 mg BID PO Last administered on 08/03/18 08:26; Admin Dose 3.125 MG; Start 08/01/18 at 21:00 Clonidine (Catapres) 0.1 mg Q8 PO Last administered on 08/03/18 13:03; Admin Dose 0.1 MG; Start 08/01/18 at 14:00 Pantoprazole (Protonix Iv) 40 mg DAILY@06 IV Last administered on 08/03/18 05:59; Admin Dose 40 MG; Start 08/02/18 at 06:00 Ferrous Sulfate (Feosol Liquid Cup) 300 mg BID GTB Last administered on 08/03/18 08:26; Admin Dose 300 MG; Start 08/01/18 at 12:00 Miscellaneous Information 1 ea NOTE XX ; Start 08/01/18 at 12:00 Glucose (Glutose) 15 gm Q15M PRN PO DECREASED GLUCOSE; Start 08/01/18 at 12:00 Glucose (Glutose) 22.5 gm Q15M PRN PO DECREASED GLUCOSE; Start 08/01/18 at 12:00 Dextrose (D50w Syringe) 25 ml Q15M PRN IV DECREASED GLUCOSE; Start 08/01/18 at 12:00 Dextrose (D50w Syringe) 50 ml Q15M PRN IV DECREASED GLUCOSE; Start 08/01/18 at 12:00 Glucagon (Glucagen) 1 mg Q15M PRN IM DECREASED GLUCOSE; Start 08/01/18 at 12:00 Glucose (Glutose) 15 gm Q15M PRN BUCCAL DECREASED GLUCOSE; Start 08/01/18 at 12:00 Insulin Glargine (Lantus) 20 units DAILY SC Last administered on 08/03/18at 07:41; Admin Dose 20 UNITS; Start 08/02/18 at 09:00 Insulin Aspart (Novolog Insulin Pen) NOVOLOG *MODERATE* ALGORITHM WITH MEALS BEDTIME SC Last administered on 08/03/18 11:33; Admin Dose 6 UNIT; Start 08/01/18 at 17:55 Diagnostic Test (Pha) (Accu-Chek) 1 ea 02 XX Last administered on 08/02/18at 01:48; Admin Dose 1 EA; Start 08/02/18 at 02:00 Miscellaneous Information (Pending [facility] Order For Wound Care) This patient green... PRN PRN XX WOUND CARE; Start 08/01/18 at 19:00 Alprazolam (Xanax) 0.25 mg BID NGT Last administered on 08/03/18at 08:26; Admin Dose 0.25 MG; Start 08/02/18 at 21:00 Vancomycin HCl 1.25 gm/Sodium Chloride 250 ml @ 83.333 mls/ hr Q36H IVPB ; Start 08/04/18 at 01:00 ZHOU ALFARO MD August 03, 2018 13:38
[2018-08-04] VITALS (11 sets, daily range): BP systolic 106–157; BP diastolic 53–78; PULSE 60–82; RESP 18–19
[2018-08-04] MEDS ORDERED: VANCOMYCIN HCL 1.25 GM in SOD CHLORIDE 0.9% 250 ML IVPB SCH (01:00)
[2018-08-04] MEDS: ACCUCHECK AT 2AM (Patients on SS coverage) XX SCH (01:08)
[2018-08-04] MEDS: PANTOPRAZOLE 40 MG INJ IV SCH ×2 (06:00→07:43)
--- NOTE | 2018-08-04 08:04 | PN ---
DATE: 08/04/2018 SUBJECTIVE: The patient seen today doing much, much better. No shortness of breath. She is feeling much better. No loose stools and no diarrhea. She is alert and oriented x3, in no acute distress, very comfortable, and slept well, too. Today, the patient came in for acute CHF exacerbation with hi story of endocarditis; on IV vancomycin and oral vancomycin at longterm; atherosclerotic vascula r disease; type 2 diabetes mellitus; hypertension; degenerative joint disease; and dyslipidemia. REVIEW OF SYSTEMS: Today, the patient as I mentioned, comfortable, in no distress, and slept well. No chest pain, no palpitation, no shortness of breath, no cough, no abdominal pain, no nausea, and no vomiting. No hesitancy, no urgency, no pain during urination, and no diarrhea. PHYSICAL EXAMINATION: VITAL SIGNS: Today, blood pressure 129/63, heart rate is 67, respiratory rate 18, she is afebrile, a nd saturating 100% on 2 liters of oxygen. HEENT: Atraumatic, normocephalic. Pupils equal and reactive to light. Extraocular muscles are inta ct. Nares are clear. No obstruction and no deviation of the septum. Oral cavity normal oral hygien e. Ear canals are clear. No signs of inflammation or infection. CHEST: AP contour is within normal limits. Breasts and nipples are normal. No nipple retraction. HEART: AFib, controlled rate. LUNGS: Very, very mild crackles over the bases of the lungs, almost none. Otherwise negative. No w heezes. ABDOMEN: Obese, soft. Positive bowel sounds. No hepatosplenomegaly, no masses palpable over the ab domen, and no rebound tenderness. EXTREMITIES: No edema, clubbing, or cyanosis of the extremities. Mehreen are removed from the lower extremity and doing well. There is an eschar on the lower extremity around the surgical area, other calzada negative. LABORATORY DATA: Today, CBC: White blood cells 6.1, hemoglobin 7.5, hematocrit 25.9, and platelet c ount is 260. Chemistry: Sodium 143, potassium 4.3, BUN 34, creatinine 1.64, blood sugar is elevated to 23, and decreasing BMP 7430. Chest x-ray today is much better. Small right pleural effusion, ot herwise negative. ASSESSMENT AND PLAN: Since the patient is C. diff negative, no isolation anymore failure. CHF much better. No shortness of breath and no chest pain. We will discuss tomorrow what the infection is a nd the family and the patient requesting to go home from here rather than longterm. Therefore, w e will discuss with ID if IV antibiotic could be discontinued or managed at home with home care. We will discuss tomorrow and we will tell the patient. Possible discharge tomorrow whether to longterm or home. Dictated By: NUBIA TEJEDA MD SB/NTS Conf#: [id number] DID#: [id number] CC: ERNESTO CMGARRY MD; GOSIA CASTELLON MD; ELMER ESPITIA DO; ERIK CHILDERS MD; NUBIA URBANO MD;*EndCC*
[2018-08-04] MEDS: INSULIN ASPART [NOVOLOG] 3 ML PEN SC SCH ×4 (08:05→21:00)
[2018-08-04] MEDS ORDERED: Vancomycin Iv Per Pharmacy XX (08:49)
[2018-08-04] MEDS ORDERED: FUROSEMIDE 40 MG INJ IV SCH (09:00)
[2018-08-04] MEDS: ASPIRIN (EC) 81 MG TAB PO SCH (09:08)
[2018-08-04] MEDS: ALPRAZOLAM 0.25 MG TAB NGT SCH ×2 (09:08→20:59)
[2018-08-04] MEDS: AMIODARONE 200 MG TAB PO SCH ×2 (09:08→21:00)
[2018-08-04] MEDS: FERROUS SULFATE 60 MG/ML 5ML CUP GTB SCH ×2 (09:09→20:59)
[2018-08-04] MEDS: INSULIN GLARGINE [LANTus] (100 UNITS/ML) SYG SC SCH (09:15)
--- NOTE | 2018-08-04 11:18 | CONS ---
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 Would switch Lasix to p.o. -Continue beta-sarah as heart rate and blood pressure permits Consultation Date/Type/Reason Admit Date/Time August 01, 2018 at 09:15 Initial Consult Date Type of Consult Cardiology Date/Time of Note DATE: 08/04/18 TIME: 11:16 24 HR Interval Summary Free Text/Dictation Feeling better, denies shortness of breath, chest pain Exam/Review of Systems Vital Signs Vitals Vital Signs Date Temp Pulse Resp B/P (MAP) Pulse Ox O2 O2 Flow FiO2 Time Delivery Rate 08/04/18 71 08:00 08/04/18 97.6 19 157/56 90 Nasal 3.0 07:15 (89) Cannula Intake and Output 08/03/18 08/03/18 08/04/18 1515:00 23:00 07:00 IntakeIntake Total 250 ml 300 ml OutputOutput Total 600 ml BalanceBalance 250 ml -300 ml Exam Constitutional: alert, oriented (No apparent distress) Head: normocephalic Respiratory: other (Coarse breath sounds bilaterally, no wheezing) Cardiovascular: regular rate and rhythm (S1-S2 heard) Gastrointestinal: soft, non-tender, bowel sounds Extremities: edema Labs Result Diagram: 08/04/18 0613 08/04/18 0613 Results 24hrs Laboratory Tests Test 08/03/18 11:29 08/03/18 16:45 08/03/18 21:16 08/04/18 06:13 Bedside Glucose 250 H 223 H 178 White Blood Count 7.1 Red Blood Count 2.98 L Hemoglobin 8.4 L Hematocrit 29.0 L Mean Corpuscular Volume 97.3 Mean Corpuscular 28.2 L Hemoglobin Mean Corpuscular 29.0 L Hemoglobin Concent Red Cell Distribution 17.6 H Width Platelet Count 285 Mean Platelet Volume 10.7 H Immature Granulocytes % 0.400 Neutrophils % 66.2 Lymphocytes % 20.7 Monocytes % 8.8 Eosinophils % 3.3 Basophils % 0.6 Nucleated Red Blood 0.0 Cells % Immature Granulocytes # 0.030 Neutrophils # 4.7 Lymphocytes # 1.5 Monocytes # 0.6 Eosinophils # 0.2 Basophils # 0.0 Nucleated Red Blood 0.0 Cells # Sodium Level 142 Potassium Level 4.4 Chloride Level 106 Carbon Dioxide Level 29 Anion Gap 7 Blood Urea Nitrogen 38 H Creatinine 1.86 H Est Glomerular Filtrat Rate mL/min Glucose Level 175 Calcium Level 9.1 B-Type Natriuretic 5820 H Peptide Test 08/04/18 07:59 Bedside Glucose 183 Medications Medications Current Medications Vancomycin HCl (Vanco Iv Per Pharmacy) VANCOMYCIN PER PHARMACY PER PROTOCOL XX ; Start 08/01/18 at 11:00 Amiodarone HCl (Cordarone) 200 mg BID PO Last administered on 08/04/18at 09:08; Admin Dose 200 MG; Start 08/01/18 at 12:00 Aspirin (Halfprin) 81 mg DAILY PO Last administered on 08/04/18at 09:08; Admin Dose 81 MG; Start 08/02/18 at 09:00 Carvedilol (Coreg) 3.125 mg BID PO Last administered on 08/04/18at 09:06; Admin Dose 3.125 MG; Start 08/01/18 at 21:00 Clonidine (Catapres) 0.1 mg Q8 PO Last administered on 08/03/18at 21:20; Admin Dose 0.1 MG; Start 08/01/18 at 14:00 Pantoprazole (Protonix Iv) 40 mg DAILY@06 IV Last administered on 08/04/18at 07:43; Admin Dose 40 MG; Start 08/02/18 at 06:00 Ferrous Sulfate (Feosol Liquid Cup) 300 mg BID GTB Last administered on 08/04/18at 09:09; Admin Dose 300 MG; Start 08/01/18 at 12:00 Miscellaneous Information 1 ea NOTE XX ; Start 08/01/18 at 12:00 Glucose (Glutose) 15 gm Q15M PRN PO DECREASED GLUCOSE; Start 08/01/18 at 12:00 Glucose (Glutose) 22.5 gm Q15M PRN PO DECREASED GLUCOSE; Start 08/01/18 at 12:00 Dextrose (D50w Syringe) 25 ml Q15M PRN IV DECREASED GLUCOSE; Start 08/01/18 at 12:00 Dextrose (D50w Syringe) 50 ml Q15M PRN IV DECREASED GLUCOSE; Start 08/01/18 at 12:00 Glucagon (Glucagen) 1 mg Q15M PRN IM DECREASED GLUCOSE; Start 08/01/18 at 12:00 Glucose (Glutose) 15 gm Q15M PRN BUCCAL DECREASED GLUCOSE; Start 08/01/18 at 12:00 Insulin Aspart (Novolog Insulin Pen) NOVOLOG *MODERATE* ALGORITHM WITH MEALS BEDTIME SC Last administered on 08/04/18 08:05; Admin Dose 4 UNIT; Start 08/01/18 at 17:55 Diagnostic Test (Pha) (Accu-Chek) 1 ea 02 XX Last administered on 08/02/18at 01:48; Admin Dose 1 EA; Start 08/02/18 at 02:00 Miscellaneous Information [facility] This patient green... PRN PRN XX WOUND CARE; Start 08/01/18 at 19:00 Alprazolam (Xanax) 0.25 mg BID NGT Last administered on 08/04/18 09:08; Admin Dose 0.25 MG; Start 08/02/18 at 21:00 Vancomycin HCl 1.25 gm/Sodium Chloride 250 ml @ 83.333 mls/ hr Q36H IVPB Last administered on 08/04/18 01:03; Admin Dose 83.333 MLS/HR; Start 08/04/18 at 01:00 Furosemide (Lasix) 40 mg DAILY IV Last administered on 08/04/18 09:05; Admin Dose 40 MG; Start 08/04/18 at 09:00 Insulin Glargine (Lantus) 30 units DAILY SC Last administered on 08/04/18 09:15; Admin Dose 30 UNITS; Start 08/04/18 at 09:00 Alex Chávez DO August 04, 2018 11:18
--- NOTE | 2018-08-04 13:42 | CONS ---
Assessment/Plan Assessment/Plan Hospital Course (Demo Recall) No acute changes overnight looks comfortable no fevers overnight Indwelling: Left upper extremity PICC line Chest x-ray on admission revealed cardiomegaly and bilateral pleural effusion left worse than right. Moderate pulmonary vascular congestion. Ultrasound of the chest this morning revealed small right pleural effusion. Antimicrobials: IV vancomycin Physical examination: This is a fragile well-developed and very pleasant [place] woman who is alert in no distress. Head atraumatic normocephalic sclera nonicteric. Neck is supple. Chest rise symmetrical, breath sounds dimin ished to bases. Heart: S1-S2. Abdomen soft bowel sounds present. Extremities with trace edema. Left lower extremity with erythema over the calf and necrotic area next to the scar on the top of the incision . Assessment: 1. S/p CHF exacerbation 2. Occlusive left common femoral artery status post thrombectomy 3. Coronary artery disease, history of CABG 4. Paroxysmal atrial fibrillation 5. Diabetes 6. Abnormal 2D echo, rule out vegetations versus thrombus versus tumor on the right atrium 7. History of renal cell carcinoma status post partial nephrectomy 8. History of C. difficile colitis and urinary tract infection Plan: Remains stable, on antibiotics to complete 6 weeks for possible endocarditis==> last dose August 18, pending discharge home with home health on IV vancomycin or daptomycin 6 mg/kg daily Discussed with case management Consultation Date/Type/Reason Admit Date/Time August 01, 2018 at 09:15 Initial Consult Date Type of Consult id Date/Time of Note DATE: 08/04/18 TIME: 13:41 Exam/Review of Systems Exam Vitals Vital Signs Date Temp Pulse Resp B/P (MAP) Pulse Ox O2 O2 Flow FiO2 Time Delivery Rate 08/04/18 70 12:00 08/04/18 98.1 19 132/61 98 Nasal 3.0 11:34 (84) Cannula Intake and Output 08/03/18 08/03/18 08/04/18 1515:00 23:00 07:00 IntakeIntake Total 250 ml 300 ml OutputOutput Total 600 ml BalanceBalance 250 ml -300 ml Results Result Diagram: 08/04/18 0613 08/04/18 0613 Results 24hrs Laboratory Tests Test 08/03/18 16:45 08/03/18 21:16 08/04/18 06:13 08/04/18 07:59 Bedside Glucose 223 H 178 183 White Blood Count 7.1 Red Blood Count 2.98 L Hemoglobin 8.4 L Hematocrit 29.0 L Mean Corpuscular Volume 97.3 Mean Corpuscular 28.2 L Hemoglobin Mean Corpuscular 29.0 L Hemoglobin Concent Red Cell Distribution 17.6 H Width Platelet Count 285 Mean Platelet Volume 10.7 H Immature Granulocytes % 0.400 Neutrophils % 66.2 Lymphocytes % 20.7 Monocytes % 8.8 Eosinophils % 3.3 Basophils % 0.6 Nucleated Red Blood 0.0 Cells % Immature Granulocytes # 0.030 Neutrophils # 4.7 Lymphocytes # 1.5 Monocytes # 0.6 Eosinophils # 0.2 Basophils # 0.0 Nucleated Red Blood 0.0 Cells # Sodium Level 142 Potassium Level 4.4 Chloride Level 106 Carbon Dioxide Level 29 Anion Gap 7 Blood Urea Nitrogen 38 H Creatinine 1.86 H Est Glomerular Filtrat Rate mL/min Glucose Level 175 Calcium Level 9.1 B-Type Natriuretic 5820 H Peptide Test 08/04/18 12:05 Bedside Glucose 218 Medications Medication Current Medications Vancomycin HCl (Vanco Iv Per Pharmacy) VANCOMYCIN PER PHARMACY PER PROTOCOL XX ; Start 08/01/18 at 11:00 Amiodarone HCl (Cordarone) 200 mg BID PO Last administered on 08/04/18 09:08; Admin Dose 200 MG; Start 08/01/18 at 12:00 Aspirin (Halfprin) 81 mg DAILY PO Last administered on 08/04/18 09:08; Admin Dose 81 MG; Start 08/02/18 at 09:00 Carvedilol (Coreg) 3.125 mg BID PO Last administered on 08/04/18 09:06; Admin Dose 3.125 MG; Start 08/01/18 at 21:00 Clonidine (Catapres) 0.1 mg Q8 PO Last administered on 08/03/18 21:20; Admin Dose 0.1 MG; Start 08/01/18 at 14:00 Pantoprazole (Protonix Iv) 40 mg DAILY@06 IV Last administered on 08/04/18at 07:43; Admin Dose 40 MG; Start 08/02/18 at 06:00 Ferrous Sulfate (Feosol Liquid Cup) 300 mg BID GTB Last administered on 08/04/18 09:09; Admin Dose 300 MG; Start 08/01/18 at 12:00 Miscellaneous Information 1 ea NOTE XX ; Start 08/01/18 at 12:00 Glucose (Glutose) 15 gm Q15M PRN PO DECREASED GLUCOSE; Start 08/01/18 at 12:00 Glucose (Glutose) 22.5 gm Q15M PRN PO DECREASED GLUCOSE; Start 08/01/18 at 12:00 Dextrose (D50w Syringe) 25 ml Q15M PRN IV DECREASED GLUCOSE; Start 08/01/18 at 12:00 Dextrose (D50w Syringe) 50 ml Q15M PRN IV DECREASED GLUCOSE; Start 08/01/18 at 12:00 Glucagon (Glucagen) 1 mg Q15M PRN IM DECREASED GLUCOSE; Start 08/01/18 at 12:00 Glucose (Glutose) 15 gm Q15M PRN BUCCAL DECREASED GLUCOSE; Start 08/01/18 at 12:00 Insulin Aspart (Novolog Insulin Pen) NOVOLOG *MODERATE* ALGORITHM WITH MEALS BEDTIME SC Last administered on 08/04/18at 12:10; Admin Dose 4 UNIT; Start 08/01/18 at 17:55 Diagnostic Test (Pha) (Accu-Chek) 1 ea 02 XX Last administered on 08/02/18at 01:48; Admin Dose 1 EA; Start 08/02/18 at 02:00 Miscellaneous Information (Pending [facility] Order For Wound Care) This patient green. .. PRN PRN XX WOUND CARE; Start 08/01/18 at 19:00 Alprazolam (Xanax) 0.25 mg BID NGT Last administered on 08/04/18at 09:08; Admin Dose 0.25 MG; Start 08/02/18 at 21:00 Insulin Glargine (Lantus) 30 units DAILY SC Last administered on 08/04/18at 09:15; Admin Dose 30 UNITS; Start 08/04/18 at 09:00 Furosemide (Lasix) 40 mg DAILY PO ; Start 08/05/18 at 09:00 Vancomycin HCl 1.25 gm/Sodium Chloride 250 ml @ 83.333 mls/ hr Q48H IVPB ; Start 08/06/18 at 01:00 BARBARA ORDAZ NP August 04, 2018 13:42
--- NOTE | 2018-08-04 19:23 | DS ---
DATE OF ADMISSION: 08/01/2018 DATE OF DISCHARGE: 08/04/2018 HISTORY OF PRESENT ILLNESS: The patient came in for acute shortness of breath, CHF exacerbation. Th e patient also has history of atrial fibrillation, chronic CHF, atrial fibrillation, hypertension, ty pe 2 diabetes mellitus, osteoarthritis and endocarditis. The patient is on IV antibiotics due to end ocarditis, also has history of chronic kidney disease. PHYSICAL EXAMINATION: GENERAL: Today, the patient is alert and oriented x3, in no acute distress, doing better, still satu ration is in the low 80s due to her chronic CHF, but patient is tolerating the treatments much better . She denies of any chest pain, denies of any cough or sputum production. Denies of any hesitancy, urgency, abdominal pain or diarrhea. VITAL SIGNS: Blood pressure is 100/57, heart rate 96, respiratory rate 18, on room air saturating 84 % to 86%. She is on 2 to 3 liters at this time. HEENT: Head is atraumatic, normocephalic. CHEST: AP contour is within normal limits. HEART: Atrial fibrillation, controlled rate. LUNGS: Crackles over the bases of the lungs. ABDOMEN: Soft, obese. Positive bowel sounds. No hepatosplenomegaly. No masses palpable over the a bdomen and no rebound tenderness. EXTREMITIES: Decreased but palpable pulses over the extremities. LABORATORY DATA: Today, white blood cell is 7.6, hemoglobin is 8.4, hematocrit 29.0 and platelet cou nt 285. Chemistry today, sodium 142, potassium 4.4, BUN 38 and creatinine 1.86. BNP is 5820, much b awnda than yesterday. ASSESSMENT AND PLAN: The patient with: 1. History of chronic congestive heart failure. 2. Hypoxia. 3. Atrial fibrillation. 4. Endocarditis. 5. Type 2 diabetes mellitus with complications. 6. Peripheral vascular disease. 7. Degenerative joint disease. 8. Dyslipidemia. 9. Osteoarthritis. The patient will be discharged home to continue IV antibiotics for another few weeks, will be dischar ged home with O2 supply 2 to 3 liters. The patient is in stable condition. Dictated By: NUBIA BREWER/JAYDEN Conf#: [id number] DID#: [id number] CC: ELMER ESPITIA DO;*[facility]*
[2018-08-04] MEDS: ALTEPLASE (CATHFLO) 2 MG INJ CATHETER PRN ×2 (23:08→23:10)
[2018-08-05] VITALS (7 sets, daily range): BP systolic 105–128; BP diastolic 53–61; PULSE 58–69; RESP 17–18
[2018-08-05] MEDS: ACCUCHECK AT 2AM (Patients on SS coverage) XX SCH (01:47)
[2018-08-05] MEDS ORDERED: PANTOPRAZOLE (EC) 40 MG TAB PO SCH (06:00)
[2018-08-05] MEDS: INSULIN ASPART [NOVOLOG] 3 ML PEN SC SCH ×2 (07:55→12:51)
[2018-08-05] MEDS: FERROUS SULFATE 60 MG/ML 5ML CUP GTB SCH (08:25)
[2018-08-05] MEDS: AMIODARONE 200 MG TAB PO SCH (08:25)
[2018-08-05] MEDS: INSULIN GLARGINE [LANTus] (100 UNITS/ML) SYG SC SCH (08:26)
[2018-08-05] MEDS: ALPRAZOLAM 0.25 MG TAB NGT SCH (08:29)
[2018-08-05] MEDS ORDERED: FUROSEMIDE 40 MG TAB PO SCH (09:00)
--- NOTE | 2018-08-05 11:53 | CONS ---
Assessment/Plan Assessment/Plan Hospital Course (Demo Recall) No acute changes overnight no fevers Indwelling: Left upper extremity PICC line Chest x-ray on admission revealed cardiomegaly and bilateral pleural effusion left worse than right. Moderate pulmonary vascular congestion. Ultrasound of the chest this morning revealed small right pleural effusion. Antimicrobials: IV vancomycin Physical examination: This is a fragile well-developed and very pleasant [place] woman who is alert in no distress. Head atraumatic normocephalic sclera nonicteric. Neck is supple. Chest rise symmetrical, breath sounds diminished to bases. Heart: S1-S2. Abdomen soft bowel sounds present. Extremities with trace edema. Left lower extremity with erythema over the calf and necrotic area next to the scar on the top of the incision . Assessment: 1. S/p CHF exacerbation 2. Occlusive left common femoral artery status post thrombectomy 3. Coronary artery disease, history of CABG 4. Paroxysmal atrial fibrillation 5. Diabetes 6. Abnormal 2D echo, rule out vegetations versus thrombus versus tumor on the right atrium 7. History of renal cell carcinoma status post partial nephrectomy 8. History of C. difficile colitis and urinary tract infection Plan: Remains stable, pending dc on antibiotics to complete 6 weeks for possible endocarditis==> last dose August 18 Discussed with case management Consultation Date/Type/Reason Admit Date/Time August 01, 2018 at 09:15 Initial Consult Date Type of Consult id Date/Time of Note DATE: 08/05/18 TIME: 11:52 Exam/Review of Systems Exam Vitals Vital Signs Date Temp Pulse Resp B/P (MAP) Pulse Ox O2 O2 Flow FiO2 Time Delivery Rate 08/05/18 Nasal 3.0 09:38 Cannula 08/05/18 61 08:00 08/05/18 97.6 18 121/56 100 07:17 (77) 08/04/18 27 14:24 Intake and Output 08/04/18 08/04/18 08/05/18 1515:00 23:00 07:00 IntakeIntake Total 400 ml 300 ml OutputOutput Total 7 ml BalanceBalance 393 ml 300 ml Results Result Diagram: 08/04/18 0613 08/04/18 0613 Results 24hrs Laboratory Tests Test 08/04/18 12:05 08/04/18 17:40 08/04/18 20:58 08/05/18 08:20 Bedside Glucose 218 246 H 156 93 Medications Medication Current Medications Vancomycin HCl (Vanco Iv Per Pharmacy) VANCOMYCIN PER PHARMACY PER PROTOCOL XX ; Start 08/01/18 at 11:00 Amiodarone HCl (Cordarone) 200 mg BID PO Last administered on 08/05/18at 08:25; Admin Dose 200 MG; Start 08/01/18 at 12:00 Carvedilol (Coreg) 3.125 mg BID PO Last administered on 08/05/18at 08:24; Admin Dose 3.125 MG; Start 08/01/18 at 21:00 Clonidine (Catapres) 0.1 mg Q8 PO Last administered on 08/05/18at 06:21; Admin Dose 0.1 MG; Start 08/01/18 at 14:00 Ferrous Sulfate (Feosol Liquid Cup) 300 mg BID GTB Last administered on 08/05/18at 08:25; Admin Dose 300 MG; Start 08/01/18 at 12:00 Miscellaneous Information 1 ea NOTE XX ; Start 08/01/18 at 12:00 Glucose (Glutose) 15 gm Q15M PRN PO DECREASED GLUCOSE; Start 08/01/18 at 12:00 Glucose (Glutose) 22.5 gm Q15M PRN PO DECREASED GLUCOSE; Start 08/01/18 at 12:00 Dextrose (D50w Syringe) 25 ml Q15M PRN IV DECREASED GLUCOSE; Start 08/01/18 at 12:00 Dextrose (D50w Syringe) 50 ml Q15M PRN IV DECREASED GLUCOSE; Start 08/01/18 at 12:00 Glucagon (Glucagen) 1 mg Q15M PRN IM DECREASED GLUCOSE; Start 08/01/18 at 12:00 Glucose (Glutose) 15 gm Q15M PRN BUCCAL DECREASED GLUCOSE; Start 08/01/18 at 12:00 Insulin Aspart (Novolog Insulin Pen) NOVOLOG *MODERATE* ALGORITHM WITH MEALS BEDTIME SC Last administered on 08/04/18at 17:43; Admin Dose 6 UNIT; Start 08/01/18 at 17:55 Diagnostic Test (Pha) (Accu-Chek) 1 ea 02 XX Last administered on 08/02/18at 01:48; Admin Dose 1 EA; Start 08/02/18 at 02:00 Miscellaneous Information (Pending [facility] Order For Wound Care) This patient green... PRN PRN XX WOUND CARE; Start 08/01/18 at 19:00 Alprazolam (Xanax) 0.25 mg BID NGT Last administered on 08/05/18at 08:29; Admin Dose 0.25 MG; Start 08/02/18 at 21:00 Insulin Glargine (Lantus) 30 units DAILY SC Last administered on 08/05/18at 08:26; Admin Dose 30 UNITS; Start 08/04/18 at 09:00 Furosemide (Lasix) 40 mg DAILY PO Last administered on 08/05/18at 08:24; Admin Dose 40 MG; Start 08/05/18 at 09:00 Vancomycin HCl 1.25 gm/Sodium Chloride 250 ml @ 83.333 mls/ hr Q48H IVPB ; Start 08/06/18 at 01:00 Pantoprazole (Protonix Tab) 40 mg DAILY@06 PO Last administered on 08/05/18at 06:19; Admin Dose 40 MG; Start 08/05/18 at 06:00 Alteplase, Recombinant (Cathflo (Activase)) 2 mg MAY REPEAT X1 PRN CATHETER IF CATHETER REMAINS OCCULUDED Last administered on 08/04/18at 23:10; Admin Dose 2 MG; Start 08/04/18 at 21:30 BARBARA ORDAZ NP August 05, 2018 11:52
[2018-08-06] MEDS ORDERED: VANCOMYCIN HCL 1.25 GM in SOD CHLORIDE 0.9% 250 ML IVPB SCH (01:00)
== END 2018-08-05 13:43 | DRG 291 ==
LOC: E/R 05:43 → TEL 09:15
PROVIDERS: ADMIT Family Medicine; ATTEND Family Medicine
DX: I13.0 Hypertensive heart and chronic kidney disease with heart failure and stage 1 through stage 4 chronic kidney disease, or unspecified chronic kidney disease (principal); I33.0 Acute and subacute infective endocarditis; I50.43 Acute on chronic combined systolic (congestive) and diastolic (congestive) heart failure; A04.72 Enterocolitis due to Clostridium difficile, not specified as recurrent; N17.9 Acute kidney failure, unspecified; E11.51 Type 2 diabetes mellitus with diabetic peripheral angiopathy without gangrene; E11.65 Type 2 diabetes mellitus with hyperglycemia; E11.22 Type 2 diabetes mellitus with diabetic chronic kidney disease; I48.0 Paroxysmal atrial fibrillation; I42.9 Cardiomyopathy, unspecified; G30.9 Alzheimer's disease, unspecified; F02.80 Dementia in other diseases classified elsewhere, unspecified severity, without behavioral disturbance, psychotic disturbance, mood disturbance, and anxiety; D63.1 Anemia in chronic kidney disease; Z95.1 Presence of aortocoronary bypass graft; I25.10 Atherosclerotic heart disease of native coronary artery without angina pectoris; E78.5 Hyperlipidemia, unspecified; M19.90 Unspecified osteoarthritis, unspecified site; N18.9 Chronic kidney disease, unspecified; F41.9 Anxiety disorder, unspecified; Z79.4 Long term (current) use of insulin; Z90.5 Acquired absence of kidney; Z87.440 Personal history of urinary (tract) infections; Z85.528 Personal history of other malignant neoplasm of kidney
CPT/HCPCS: 36415; 71045; 76604; 80048; 80053; 82962; 83605; 83880; 84484; 85025; 93005; 94644; 96374; C9113; J1815; J1940; J3370; J7050; Q5106

== ENCOUNTER 2018-10-07 01:04 | Inpatient (IN) | payer MEDICARE, OTHER ==
[~2018-10-07] VITALS: Ht 157.5 cm; Wt 77.3 kg
[~2018-10-07 01:04] MED LIST changes: +ACET325T33 PO; +ASCO250T96 PO; +HYDR-4011 PO; +LACTINEX PO; +LISI-471 PO; +LUBI24CA7 PO; +MULT-876 PO; +NOVO3I SC; +PANT40TA3 PO; +POTA10TA37 PO; +PROT946L PO; +QUET25TA PO; +SENN-120 PO; +Vancomycin Iv Per Pharmacy XX
[2018-10-07 01:13] VITALS: Ht 157.5 cm; Wt 77.3 kg
[2018-10-07] MEDS ORDERED: SOD CHLORIDE 0.9% 500 ML IV STA (01:15)
[2018-10-07 02:00] VITALS: BP 112/54; PULSE 71; RESP 18
[2018-10-07] MEDS ORDERED: CEFEPIME 2GM/50 ML (PMX) 50 ML IVPB STA (02:13)
[2018-10-07] MEDS ORDERED: SODIUM CHLORIDE 0.9% 1L BAG IV* STA (02:13)
[2018-10-07] MEDS ORDERED: VANCOMYCIN 1 GM (PMX) 250 ML IVPB ONE (02:30)
[2018-10-07] MEDS ORDERED: INSULIN REGULAR, HUMAN 100 UNIT/1 ML 3ML VIAL IVP STA (03:37)
[2018-10-07] MEDS ORDERED: ACETAMINOPHEN 325 MG TAB PO PRN (04:00)
[2018-10-07] MEDS ORDERED: ONDANSETRON 4 MG INJ IV PRN ×2 (04:00→12:30)
[2018-10-07] MEDS ORDERED: DEXTROSE 50% 50 ML SYRINGE IV PRN ×2 (04:00→21:00)
[2018-10-07] MEDS ORDERED: NA POLYST SULFON 15 GM/60 ML BTL PO ONE (04:00)
[2018-10-07] MEDS ORDERED: NA BICARBONATE 8.4% 50 ML SYG IV ONE (04:00)
--- NOTE | 2018-10-07 04:34 | ERD ---
ER Documentation Chief Complaint Chief Complaint [id number] from home,decreased appetite,cough, lower back pain HPI This 82-year-old female brought in by rescue from home with decreased appetite cough and low back pain. Consummately productive of greenish sputum. According to family she is been very generally weak over the past few days. Denies any other current complaints. Patient herself is a very poor historian and no family showed up at bedside at this time history is per EMS personnel ROS All systems reviewed and are negative except as per history of present illness. Medications Home Meds Active Scripts [Vancomycin Iv Per Pharmacy] 1 EA EACH No Conflict Check, 0 EA XX .PER PROTOCOL Prov:NUBIA TEJEDA MD 08/04/18 Reported Medications Clonidine Hcl* (Clonidine Hcl*) 0.1 Mg Tab, 0.1 MG PO Q8, TAB 06/25/18 Furosemide* (Furosemide*) 20 Mg Tablet, 20 MG PO DAILY 06/25/18 Carvedilol* (Carvedilol*) 3.125 Mg Tablet, 3.125 MG PO BID for 30 Days, #60 06/25/18 Amiodarone Hcl* (Amiodarone Hcl*) 200 Mg Tablet, 200 MG PO BID, #60 TAB 06/17/18 Dulaglutide (Trulicity) 0.75 Mg/0.5 Ml Pen.injctr, 1.75 MG SQ WEEKLY 06/11/18 Insulin Glargine,Hum.rec.anlog (Basaglar Kwikpen U-100) 100 Unit/1 Ml Insuln.pen, 20 UNIT SC DAILY, EA 06/11/18 Ferrous Sulfate (Ferrous Sulfate) 325 Mg Tablet.dr, 325 MG PO DAILY 06/11/18 Aspirin* (Aspirin* EC) 81 Mg Tablet.dr, 81 MG PO DAILY, TAB 06/11/18 Empagliflozin (Jardiance) 10 Mg Tablet, 10 MG PO DAILY, TAB 06/11/18 Esomeprazole Mag Trihydrate (Nexium) 20 Mg Capsule.dr, 20 MG PO AC BREAKFAST, #30 CAP 06/11/18 Docusate Sodium* (Colace*) 100 Mg Capsule, 100 MG PO TID, #60 CAP 06/11/18 Allopurinol* (Allopurinol*) 100 Mg Tablet, 100 MG PO BID, TAB 06/11/18 Allergies Allergies: Coded Allergies: No Known Allergies (Verified Allergy, Unknown, 08/01/18) PMhx/Soc History of Surgery: Yes (Thrombectomy, LLE) Anesthesia Reaction: No Hx Neurological Disorder: No Hx Respiratory Disorders: Yes Hx Cardiac Disorders: Yes (Afib, HTN, CHF, Cardiomyopathy) Hx Psychiatric Problems: No Hx Miscellaneous Medical Probl: Yes (UTI, Cdiff, KIDNEY CA) Hx Alcohol Use: No Hx Substance Use: No Hx Tobacco Use: No Smoking Status: Never smoker Physical Exam Vitals Vital Signs Date Temp Pulse Resp B/P (MAP) Pulse Ox O2 O2 Flow FiO2 Time Delivery Rate 10/07/18 67 23 98/53 (68) 100 Room Air 03:30 10/07/18 65 20 112/76 100 Room Air 01:30 (88) 10/07/18 98.1 54 18 106/73 100 01:13 (84) Physical Exam Const: No acute distress Head: Atraumatic Eyes: Normal Conjunctiva ENT: Normal External Ears, Nose and Mouth. Neck: Full range of motion. No meningismus. Resp: Clear to auscultation bilaterally Cardio: Regular rate and rhythm, no murmurs Abd: Soft, non tender, non distended. Normal bowel sounds Skin: No petechiae or rashes Back: No midline or flank tenderness Ext: No cyanosis, or edema Neur: Awake and alert Psych: Normal Mood and Affect Result Diagram: 10/07/18 0120 10/07/18 0120 Results 24 hrs Laboratory Tests Test 10/07/18 01:20 10/07/18 01:24 10/07/18 02:23 10/07/18 03:26 White Blood Count 19.3 10^3/ul Red Blood Count 2.90 10^6/ul Hemoglobin 7.2 g/dl Hematocrit 23.4 % Mean Corpuscular 80.7 fl Volume Mean Corpuscular 24.8 pg Hemoglobin Mean Corpuscular 30.8 g/dl Hemoglobin Concent Red Cell 15.5 % Distribution Width Platelet Count 457 10^3/UL Mean Platelet 11.2 fl Volume Immature 0.600 % Granulocytes % Neutrophils % 80.5 % Lymphocytes % 15.8 % Monocytes % 3.0 % Eosinophils % 0.0 % Basophils % 0.1 % Nucleated Red Blood 0.0 /100WBC Cells % Immature 0.120 10^3/ul Granulocytes # Neutrophils # 15.5 10^3/ul Lymphocytes # 3.1 10^3/ul Monocytes # 0.6 10^3/ul Eosinophils # 0.0 10^3/ul Basophils # 0.0 10^3/ul Nucleated Red Blood 0.0 10^3/ul Cells # Sodium Level 132 mmol/L Potassium Level 6.6 mmol/L Chloride Level 99 mmol/L Carbon Dioxide 14 mmol/L Level Anion Gap 19 Blood Urea Nitrogen 99 mg/dl Creatinine 2.86 mg/dl Est Glomerular mL/min Filtrat Rate mL/min Glucose Level 280 mg/dl Calcium Level 9.3 mg/dl Total Bilirubin 0.1 mg/dl Direct Bilirubin 0.00 mg/dl Indirect Bilirubin 0.1 mg/dl Aspartate Amino 421 IU/L Transf (AST/SGOT) Alanine 387 IU/L Aminotransferase (A LT/SGPT) Alkaline 101 IU/L Phosphatase Troponin I 0.036 ng/ml B-Type Natriuretic 2400 PG/ML Peptide Total Protein 6.0 g/dl Albumin 3.2 g/dl Globulin 2.80 g/dl Albumin/Globulin 1.14 Ratio POC Venous Lactate 2.4 mmol/L Urine Color YELLOW Urine Clarity TURBID Urine pH 5.0 Urine Specific 1.011 [place] Urine Ketones TRACE mg/dL Urine Nitrite NEGATIVE mg/dL Urine Bilirubin NEGATIVE mg/dL Urine Urobilinogen NEGATIVE mg/dL Urine Leukocyte 2+ [place]/ul Esterase Urine Microscopic 167 /HPF RBC Urine Microscopic > 182 /HPF WBC Urine Squamous FEW /HPF Epithelial Cells Urine Bacteria FEW /HPF Urine Yeast MANY /HPF (Budding) Urine Hemoglobin 3+ mg/dL Urine Glucose 3+ mg/dL Urine Total Protein 2+ mg/dl Lactic Acid Level 1.8 mmol/L Test 10/07/18 03:48 10/07/18 04:27 Bedside Glucose 305 mg/dL 288 mg/dL Current Medications Medications Dose Sig/Peter Start Time Status Last (Trade) Ordered Route PRN Stop Time Admin Dose Reason Admin Sodium 500 ml @ Q1H STAT 10/07/18 DC 10/07/18 Chloride 500 mls/hr IV 01:15 10/07/18 01:33 02:14 Sodium 2,320 ml BOLUS OVER 2 10/07/18 DC 10/07/18 Chloride HOURS STAT 02:13 10/07/18 02:28 (NS) IV* 02:17 Cefepime HCl 50 ml @ ONCE STAT 10/07/18 DC 10/07/18 100 mls/hr IVPB 02:13 10/07/18 02:27 02:42 Vancomycin 250 ml @ ONCE ONCE 10/07/18 10/07/18 HCl 125 mls/hr IVPB 02:30 10/07/18 03:14 04:29 Sodium 30 gm ONCE ONCE 10/07/18 DC 10/07/18 Polystyrene PO 04:00 10/07/18 03:51 Sulfonate 04:01 (Kayexalate) Ondansetron 4 mg ER BRIDGE 10/07/18 HCl (Zofran PRN IV 04:00 Inj) NAUSEA/VOMITI 10/08/18 03:59 NG 650 mg ER BRIDGE 10/07/18 Acetaminophen PRN PO 04:00 (Tylenol .MILD PAIN 10/08/18 03:59 Tab) 1-3 OR TEMP Insulin 10 unit ONCE STAT 10/07/18 DC 10/07/18 Human IVP 03:37 10/07/18 03:50 Regular 03:40 (Humulin R) Dextrose ONCE PRN 10/07/18 (D50w IV DECREASED 04:00 Syringe) GLUCOSE Sodium 50 ml ONCE ONCE 10/07/18 DC 10/07/18 Bicarbonate IV 04:00 10/07/18 03:50 (Na Bicarb 04:01 8.4% Syg) Procedures/MDM EKG: Rate/Rhythm: [Normal Sinus Rhythm] QRS, ST, T-waves: [No changes consistent w/ acute ischemia] Impression: [No evidence of ischemia or arrhythmia] Chest X-ray 1V Interpreted by me: Soft Tissue: No acute abnormalities Bones: No acute abnormalities Mediastinum/Cardiac Silhouette/Lungs: [No acute abnormalities] Patient's infectious symptoms have not stabilized and the patient is at risk of rapid decompensation. The patient will be admitted for careful hydration, antibiotic therapy, and infectious source control. Severe Sepsis Assessment: Infectious Source: Pneumonia End organ damage indicated by: [Lactate > 2.0 mmol/L Severe Sepsis Managment: Blood Cultures X 2 before broad spectrum antibiotics initiated within 3 hours of recognition. Code sepsis recognized at 2:13 AM 30 ml/kg NS bolus Completed Initial Lactate: 2.5 Repeat Lactate pending Critical Care: Time: 45 minutes, independent of any separately billable procedural time Treatments/Evaluations: Emergent fluid management, while maintaining close respiratory support. Immediate broad spectrum antibiotic therapy. Simultaneous assessment for possible sources in order to direct therapy. Cons ideration for invasive and chemical support to prevent respiratory or cardiac collapse. Septic Shock Assessment (1 hour post 30 ml/kg fluid bolus): Hypotension (SBP < 90 or 40 mmHg drop, MAP < 65): [No] Lactic acid > 4.0 [No] Perfusion Reassessment for Septic Shock: Pulse 57, respiratory rate 16, O2 sat 100%, blood pressure is 117/43 Heart Exam: [Tachycardic] Lung Exam: [No Crackles] Capillary Refill: [Delayed] Peripheral Pulses: [Radially present] Skin: [Mottled, pale] Patient has evidence of hyperkalemia as well. Treated with Kayexalate, insulin and glucose and bicarbonate infusion. No evidence of EKG changes. Dr. Zamora, who is on-call for primary made aware. Accepting Care Team: Current data and ongoing care discussed. Time: 3:30 AM Primary Provider: Dr. Culp Consulting: Pending Outstanding Data: none Departure Diagnosis: Primary Impression: Sepsis Sepsis type: sepsis due to unspecified organism Qualified Codes: A41.9 - Sepsis, unspecified organism Additional Impression: Hyperkalemia Condition: Serious ERNESTO GUZMAN Oct 07, 2018 04:34
--- NOTE | 2018-10-07 10:07 | QN ---
Documentation Comment Observation Note: Time: 4 hours Family Hx: Negative for diabetes Evaluation: Multiple exams showed improving symptoms and no evidence of clinical decompensation. MATTHEW LAMAS MD Oct 07, 2018 10:07
[2018-10-07] MEDS ORDERED: LORAZEPAM 2 MG INJ IV ONE ×2 (11:30)
--- NOTE | 2018-10-07 11:53 | HP ---
Date/Time of Note Date/Time of Note DATE: 10/07/18 TIME: 11:37 Assessment/Plan VTE Prophylaxis SCD applied (from Nsg): Yes Pharmacological prophylaxis: NA/contraindicated, other Pharm contraindication: bleeding Lines/Catheters IV Catheter Type (from Nrsg): Saline Lock Assessment/Plan Assessment/Plan -Sepsis secondary to urinary tract infection and possible early pneumonia. Continue broad-spectrum antibiotics. Follow-up on urine and blood cultures. Dr. Elias is asked to see patient in infection disease consultation. -Hyperkalemia, status post treatment -Acute kidney injury, continue gentle hydration, monitor BUN and creatinine. Dr. Arreaga is asked to see patient in nephrology consultation. -Hypertension -Systolic congestive heart failure. Dr. Chávez is asked to see patient in cardiology consultation. -Cardiomyopathy with ejection fraction 50% -Atrial fibrillation, patient did not tolerate anticoagulation in the past due to bleeding and anemia, continue aspirin -Coronary artery disease, status post CABG -Diabetes mellitus type 2, continue Lantus and pre-meal NovoLog. -History of endocarditis, status post treatment Further recommendations based on clinical course. Plan of care discussed with Dr. Mi. Result Diagram: 10/07/18 0120 10/07/18 0120 Results 24hrs Laboratory Tests Test 10/07/18 01:20 10/07/18 01:24 10/07/18 02:23 10/07/18 03:26 White Blood Count 19.3 #H Red Blood Count 2.90 L Hemoglobin 7.2 L Hematocrit 23.4 L Mean Corpuscular Volume 80.7 L Mean Corpuscular 24.8 L Hemoglobin Mean Corpuscular 30.8 L Hemoglobin Concent Red Cell Distribution 15.5 H Width Platelet Count 457 #H Mean Platelet Volume 11.2 H Immature Granulocytes % 0.600 H Neutrophils % 80.5 H Lymphocytes % 15.8 Monocytes % 3.0 Eosinophils % 0.0 Basophils % 0.1 Nucleated Red Blood 0.0 Cells % Immature Granulocytes # 0.120 H Neutrophils # 15.5 H Lymphocytes # 3.1 H Monocytes # 0.6 Eosinophils # 0.0 Basophils # 0.0 Nucleated Red Blood 0.0 Cells # Sodium Level 132 L Potassium Level 6.6 *H Chloride Level 99 Carbon Dioxide Level 14 L Anion Gap 19 H Blood Urea Nitrogen 99 H Creatinine 2.86 H Est Glomerular Filtrat Rate mL/min Glucose Level 280 H Calcium Level 9.3 Total Bilirubin 0.1 L Direct Bilirubin 0.00 Indirect Bilirubin 0.1 Aspartate Amino 421 H Transf (AST/SGOT) Alanine 387 H Aminotransferase (ALT/SG PT) Alkaline Phosphatase 101 Troponin I 0.036 B-Type Natriuretic 2400 H Peptide Total Protein 6.0 L Albumin 3.2 L Globulin 2.80 Albumin/Globulin Ratio 1.14 POC Venous Lactate 2.4 *H Urine Color YELLOW Urine Clarity TURBID A Urine pH 5.0 Urine Specific [place] 1.011 Urine Ketones TRACE A Urine Nitrite NEGATIVE Urine Bilirubin NEGATIVE Urine Urobilinogen NEGATIVE Urine Leukocyte Esterase 2+ H Urine Microscopic RBC 167 H Urine Microscopic WBC > 182 H Urine Squamous FEW Epithelial Cells Urine Bacteria FEW A Urine Yeast (Budding) MANY A Urine Hemoglobin 3+ H Urine Glucose 3+ H Urine Total Protein 2+ H Lactic Acid Level 1.8 Test 10/07/18 03:48 10/07/18 04:27 10/07/18 05:20 Bedside Glucose 305 H 288 H Lactic Acid Level 1.7 HPI/ROS Admit Date/Time Admit Date/Time Hx of Present Illness Patient is a 82-year-old female with extensive medical history. Patient has a history of coronary artery disease, status post CABG, atrial fibrillation however patient did not tolerate anticoagulation in the past due to bleeding and anemia and currently on aspirin, history of renal carcinoma status post nephrectomy 8 years ago, history of diabetes, hypertension, systolic congestive heart failure, cardiomyopathy, history of endocarditis status post treatment, status post left femoral artery thrombectomy, osteoporosis, mild dementia, and unstable gait. Patient was brought from home due to decreased appetite, cough and a lower back pain. During the evaluation in the emergency room patient is noted to have leukocytosis, and elevated lactic acid. Urinalysis is indicative for infection. Patient also noted to have hyperkalemia and was giving treatment with Kayexalate insulin and bicarb. Patient also noted to have elevated BUN and creatinine. Patient is seen in the emergency room, patient denies any shortness of breath denies any chest pain denies any nausea vomiting diarrhea. Patient was started on broad-spectrum antibiotics. Patient is being admitted to telemetry floor for further evaluation and management. ROS 12 point review of system is negative except for what mentioned in HPI PMH/Family/Social Past Medical History Medical History: congestive heart failure, coronary artery disease, diabetes, hypertension, other (Atrial fibrillation) Medications Current Medications Ondansetron HCl (Zofran Inj) 4 mg ER BRIDGE PRN IV NAUSEA/VOMITING Last administered on 10/07/18at 04:31; Admin Dose 4 MG; Start 10/07/18 at 04:00; Stop 10/08/18 at 03:59 Acetaminophen (Tylenol Tab) 650 mg ER BRIDGE PRN PO .MILD PAIN 1-3 OR TEMP; Start 10/07/18 at 04:00; Stop 10/08/18 at 03:59 Dextrose (D50w Syringe) ONCE PRN IV DECREASED GLUCOSE; Start 10/07/18 at 04:00 Coded Allergies: No Known Allergies (Verified Allergy, Unknown, 08/01/18) Past Surgical History Past Surgical Hx: coronary bypass surgery, other (Status post nephrectomy for renal carcinoma 8 years ago, status post thrombectomy of left common femoral artery) Family History Significant Family History: diabetes, hypertension Social History Alcohol Use: none Smoking Status: Never smoker Drug Use: none Exam/Review of Systems Vital Signs Vitals Vital Signs Date Temp Pulse Resp B/P (MAP) Pulse Ox O2 O2 Flow FiO2 Time Delivery Rate 10/07/18 67 17 106/47 100 Room Air 10:26 (66) 10/07/18 98.1 01:13 Exam Constitutional: alert, oriented Head: normocephalic Neck: supple Respiratory: diminished breath sounds Cardiovascular: irregular rhythm Gastrointestinal: soft, non-tender Genitourinary - Male: other (Incontinent of urine) Musculoskeletal: nl extremities to inspection Extremities: normal pulses Neurological: nl mental status Skin: other (Right foot wound with dressing) OCTAVIANO SHAFFER Oct 07, 2018 11:51
[2018-10-07] MEDS ORDERED: NACL 0.9% 3 ML SYG IV SCH (12:30)
--- NOTE | 2018-10-07 13:53 | CONS ---
DATE OF ADMISSION: 10/07/2018 DATE OF CONSULTATION: 10/07/2018 TYPE OF CONSULTATION: Infectious disease. REASON FOR CONSULTATION: Antibiotic management. HISTORY OF PRESENT ILLNESS: Quintin Berman is an 82-year-old [place] male with extensive past medical history, he has a history of: 1. Coronary artery disease. 2. Status post coronary artery bypass graft. 3. Atrial fibrillation, not on anticoagulation due to bleeding, currently on aspirin. 4. History of renal carcinoma, status post nephrectomy 8 years ago. 5. Diabetes. 6. Hypertension. 7. Systolic congestive heart failure. 8. Cardiomyopathy. 9. History of endocarditis, status post treatment. 10. Status post left femoral artery thrombectomy. 11. Osteoporosis. 12. Mild dementia. 13. Unstable gait. The patient was brought from home with decreased appetite, cough and low back pain. The patient was noted to have leukocytosis. His white count was 19.3 with 81% neutrophils, H and H is 7.2/23.4, plat elet count 457,000. Potassium 6.6, BUN and creatinine 99/2.86, glucose of 280. PAST SURGICAL HISTORY: As outlined. He had coronary artery bypass grafting and nephrectomy, thrombe ctomy of the left common femoral artery. PAST MEDICAL HISTORY: As outlined. FAMILY HISTORY: Positive for diabetes and hypertension. SOCIAL HISTORY: Does not smoke, drink or abuse drugs. ALLERGIES: NONE TO PENICILLIN, SULFA OR FOODS. MEDICATIONS: Per chart. REVIEW OF SYSTEMS: As per HPI. PHYSICAL EXAMINATION: GENERAL: The patient is alert, responsive, in no acute distress. VITAL SIGNS: Stable. He is afebrile. SKIN: Without generalized rash. HEENT: Within normal limits. NECK: Supple. LYMPH NODES: None palpable. CHEST: Decreased breath sounds at the bases. HEART: Without murmur or gallop. He has an irregularly irregular rhythm. ABDOMEN: Soft, nontender, without organosplenomegaly or masses. EXTREMITIES: Without cyanosis, clubbing, or edema. RECTAL AND GENITAL: Deferred. UROLOGIC: The patient is incontinent of urine. NEUROLOGIC: No focal neurological abnormality. His right foot has a wound dressing on it. ANCILLARY LABORATORY DATA: His urine shows 2+ leukocyte esterase, greater than 182 white cells per h igh powered field, consistent with UTI. His chest x-ray shows no evidence of congestive failure or p neumonia. He has extensive degenerative enthesopathy of the thoracic, lumbar spine with scoliosis. The patient received vancomycin and cefepime in the Emergency Room and I would at least continue the cefepime once he hits the floor. He is going to go to the ICU. He has had blood cultures done and u rine cultures done. I will dictate my findings to Dr. Mi and nurse practitioner Woo. Dictated By: TORI IRVING MD, JD/JAYDEN Conf#: [id number] DID#: [id number]
[2018-10-07 15:36] VITALS: BP 114/56; PULSE 66; RESP 20
[2018-10-07] MEDS ORDERED: DEXTROSE 50% 50 ML SYRINGE IV ONE (16:00)
[2018-10-07] MEDS ORDERED: INSULIN ASPART [NOVOLOG] 3 ML PEN SC ONE (16:00)
[2018-10-07] MEDS ORDERED: ACCU-CHEK XX ONE (16:00)
[2018-10-07] MEDS: CEFEPIME 1GM/50 ML (PMX) 50 ML IVPB SCH (16:26)
[2018-10-07] MEDS: SOD CHLORIDE 0.45% 1,000 ML IV SCH (16:27)
--- NOTE | 2018-10-07 16:59 | CONS ---
Assessment/Plan Assessment/Plan Assessment/Plan (Daily) 1. acute hyperkalemia due to BRANDON 2 .acute kidney injury on CKD III due to ATN from sepsis + prerenal azotemia 3. Sepsis due to UTI and PNA 4. acute UTI 5. H/o partial nephrectomy possibly due to RCC as per family 6. H/o CAD s/p CABG , Cardiomyopathy with EF 50%, Chronic Systolic HF, 7. H/O HTN 8. h/o DM II 9. Paroxysmal atrial fibrillation 10. acute encephalpahty possibly due to uremic and metabolic encephalopathy 11. 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 H/o HTN 13. H/o DM II 14. h/O paroxysmal atrial fibrillation Plan: IV abx Cefepime and IV vancomycin for sepsis, Renally dose all abx and monitor electrolytes Urine Na, urine portein/Cr ration, Urine Eosinophils, CK total, Uria acid IVF 1/2 NS at 75 cc/hr Amiodarone for rate control, Renal US to assess for CKD, to rule out hydronephrosis, Family give h/o partial nephrectomy for RCC THansk for consultaiton, I wll continue to follow up Consultation Date/Type/Reason Admit Date/Time 10/07/2018 Date of Consultation: Oct 07, 2018 Type of Consult NEPHROLOGY Reason for Consultation acute hyperkalemia, acute on chronic renal failure Requesting Provider: JAGJIT MONTES MD Date/Time of Note DATE: 10/07/18 TIME: 16:59 Hx of Present Illness 82-year-old female with extensive past medical history of coronary artery disease, status post CABG, atrial fibrillation however patient did not tolerate anticoagulation in the past due to bleeding and anemia and currently on aspirin, history of renal carcinoma status post nephrectomy 8 years ago, history of diabetes, hypertension, systolic congestive heart failure, cardiomyopathy, history of endocarditis status post treatment, status post left femoral artery thrombectomy, osteoporosis, mild dementia, and unstable gait. Patient was brought from home due to decreased appetite, cough and a lower back pain, not eating well for last one week . During the evaluation in the emergency room patient is noted to have leukocytosis, and elevated lactic acid. She gets admitted for Sepsis due to UTI and pneumonia, ID has been consulted on the case On admission BUN/Cr 99/2.86,K 6.6- Renal has been consulted for Hyperkalemia, acidosi and acute on chronic renal failure Subjective hx not possible: pt non-verbal, pt critical status Constitutional: disoriented Past Medical History Medical History: congestive heart failure, coronary artery disease, diabetes, hypertension, other (Atrial fibrillation) Home Meds Active Scripts [Vancomycin Iv Per Pharmacy] 1 EA EACH No Conflict Check, 0 EA XX .PER PROTOCOL Prov:NUBIA TEJEDA MD 08/04/18 Reported Medications Clonidine Hcl* (Clonidine Hcl*) 0.1 Mg Tab, 0.1 MG PO Q8, TAB 06/25/18 Furosemide* (Furosemide*) 20 Mg Tablet, 20 MG PO DAILY 06/25/18 Carvedilol* (Carvedilol*) 3.125 Mg Tablet, 3.125 MG PO BID for 30 Days, #60 06/25/18 Amiodarone Hcl* (Amiodarone Hcl*) 200 Mg Tablet, 200 MG PO BID, #60 TAB 06/17/18 Dulaglutide (Trulicity) 0.75 Mg/0.5 Ml Pen.injctr, 1.75 MG SQ WEEKLY 06/11/18 Insulin Glargine,Hum.rec.anlog (Basaglar Kwikpen U-100) 100 Unit/1 Ml Insuln.pen, 20 UNIT SC DAILY, EA 06/11/18 Ferrous Sulfate (Ferrous Sulfate) 325 Mg Tablet.dr, 325 MG PO DAILY 06/11/18 Aspirin* (Aspirin* EC) 81 Mg Tablet.dr, 81 MG PO DAILY, TAB 06/11/18 Empagliflozin (Jardiance) 10 Mg Tablet, 10 MG PO DAILY, TAB 06/11/18 Esomeprazole Mag Trihydrate (Nexium) 20 Mg Capsule.dr, 20 MG PO AC BREAKFAST, #30 CAP 06/11/18 Docusate Sodium* (Colace*) 100 Mg Capsule, 100 MG PO TID, #60 CAP 06/11/18 Allopurinol* (Allopurinol*) 100 Mg Tablet, 100 MG PO BID, TAB 06/11/18 Medications Current Medications Ondansetron HCl (Zofran Inj) 4 mg ER BRIDGE PRN IV NAUSEA/VOMITING Last administered on 10/07/18at 04:31; Admin Dose 4 MG; Start 10/07/18 at 04:00; Stop 10/08/18 at 03:59 Acetaminophen (Tylenol Tab) 650 mg ER BRIDGE PRN PO .MILD PAIN 1-3 OR TEMP; Start 10/07/18 at 04:00; Stop 10/08/18 at 03:59 Dextrose (D50w Syringe) ONCE PRN IV DECREASED GLUCOSE; Start 10/07/18 at 04:00 Allopurinol (Zyloprim) 100 mg BID PO ; Start 10/07/18 at 21:00 Amiodarone HCl (Cordarone) 200 mg BID PO ; Start 10/07/18 at 21:00 Aspirin (Halfprin) 81 mg DAILY PO ; Start 10/08/18 at 09:00 Carvedilol (Coreg) 3.125 mg BID PO ; Start 10/07/18 at 21:00 Clonidine (Catapres) 0.1 mg Q8 PO ; Start 10/07/18 at 22:00 Docusate Sodium (Colace) 100 mg TID PO ; Start 10/07/18 at 21:00 Pantoprazole (Protonix Tab) 40 mg DAILY@06 PO ; Start 10/08/18 at 06:00 Ferrous Sulfate (Ferrous Sulfate (Ec)) 325 mg DAILY PO ; Start 10/08/18 at 09:00 IV Flush (NS 3 ml) 3 ml PER PROTOCOL IV ; Start 10/07/18 at 12:30 Ondansetron HCl (Zofran Inj) 4 mg Q6H PRN IV NAUSEA/VOMITING; Start 10/07/18 at 12:30 Acetaminophen (Tylenol Tab) 650 mg Q6H PRN PO .PAIN 1-3 OR TEMP; Start 10/07/18 at 12:30 Acetaminophen/ Hydrocodone Bitart ([place] (5/325)) 1 tab Q6H PRN PO .PAIN 4-6; Start 10/07/18 at 12:30 Cefepime HCl 50 ml @ 100 mls/hr Q24H IVPB Last administered on 10/07/18at 16:26; Admin Dose 100 MLS/HR; Start 10/07/18 at 16:00 Sodium Chloride 1,000 ml @ 75 mls/hr [id number] IV Last administered on 10/07/18at 16:27; Admin Dose 75 MLS/HR; Start 10/07/18 at 16:00 Allergies: Coded Allergies: No Known Allergies (Verified Allergy, Unknown, 08/01/18) Past Surgical History Past Surgical Hx: coronary bypass surgery, other (Status post nephrectomy for renal carcinoma 8 years ago, status post thrombectomy of left common femoral ar petty) Family History Significant Family History: no pertinent family hx Social History Alcohol Use: none Smoking Status: Never smoker Drug Use: none Exam/Review of Systems Exam Vitals Vital Signs Date Temp Pulse Resp B/P (MAP) Pulse Ox O2 O2 Flow FiO2 Time Delivery Rate 10/07/18 97.8 66 20 114/56 99 Room Air 15:36 (75) Exam Constitutional: alert, oriented Head: normocephalic Neck: supple Respiratory: diminished breath sounds Cardiovascular: irregular rhythm Gastrointestinal: soft, non-tender Genitourinary - Male: other (Incontinent of urine) Musculoskeletal: nl extremities to inspection Extremities: normal pulses Neurological: nl mental status Skin: other (Right foot wound with dressing) Results Result Diagram: 10/07/18 0120 10/07/18 0120 Results 24hrs Laboratory Tests Test 10/07/18 01:20 10/07/18 01:24 10/07/18 02:23 10/07/18 03:26 White Blood Count 19.3 #H Red Blood Count 2.90 L Hemoglobin 7.2 L Hematocrit 23.4 L Mean Corpuscular Volume 80.7 L Mean Corpuscular 24.8 L Hemoglobin Mean Corpuscular 30.8 L Hemoglobin Concent Red Cell Distribution 15.5 H Width Platelet Count 457 #H Mean Platelet Volume 11.2 H Immature Granulocytes % 0.600 H Neutrophils % 80.5 H Lymphocytes % 15.8 Monocytes % 3.0 Eosinophils % 0.0 Basophils % 0.1 Nucleated Red Blood 0.0 Cells % Immature Granulocytes # 0.120 H Neutrophils # 15.5 H Lymphocytes # 3.1 H Monocytes # 0.6 Eosinophils # 0.0 Basophils # 0.0 Nucleated Red Blood 0.0 Cells # Sodium Level 132 L Potassium Level 6.6 *H Chloride Level 99 Carbon Dioxide Level 14 L Anion Gap 19 H Blood Urea Nitrogen 99 H Creatinine 2.86 H Est Glomerular Filtrat Rate mL/min Glucose Level 280 H Calcium Level 9.3 Total Bilirubin 0.1 L Direct Bilirubin 0.00 Indirect Bilirubin 0.1 Aspartate Amino 421 H Transf (AST/SGOT) Alanine 387 H Aminotransferase (ALT/SG PT) Alkaline Phosphatase 101 Troponin I 0.036 B-Type Natriuretic 2400 H Peptide Total Protein 6.0 L Albumin 3.2 L Globulin 2.80 Albumin/Globulin Ratio 1.14 POC Venous Lactate 2.4 *H Urine Color YELLOW Urine Clarity TURBID A Urine pH 5.0 Urine Specific [place] 1.011 Urine Ketones TRACE A Urine Nitrite NEGATIVE Urine Bilirubin NEGATIVE Urine Urobilinogen NEGATIVE Urine Leukocyte Esterase 2+ H Urine Microscopic RBC 167 H Urine Microscopic WBC > 182 H Urine Squamous FEW Epithelial Cells Urine Bacteria FEW A Urine Yeast (Budding) MANY A Urine Hemoglobin 3+ H Urine Glucose 3+ H Urine Total Protein 2+ H Lactic Acid Level 1.8 Test 10/07/18 03:48 10/07/18 04:27 10/07/18 05:20 Bedside Glucose 305 H 288 H Lactic Acid Level 1.7 Lactate Dehydrogenase 995 H Medications Medication Current Medications Ondansetron HCl (Zofran Inj) 4 mg ER BRIDGE PRN IV NAUSEA/VOMITING Last administered on 10/07/18at 04:31; Admin Dose 4 MG; Start 10/07/18 at 04:00; Stop 10/08/18 at 03:59 Acetaminophen (Tylenol Tab) 650 mg ER BRIDGE PRN PO .MILD PAIN 1-3 OR TEMP; Start 10/07/18 at 04:00; Stop 10/08/18 at 03:59 Dextrose (D50w Syringe) ONCE PRN IV DECREASED GLUCOSE; Start 10/07/18 at 04:00 Allopurinol (Zyloprim) 100 mg BID PO ; Start 10/07/18 at 21:00 Amiodarone HCl (Cordarone) 200 mg BID PO ; Start 10/07/18 at 21:00 Aspirin (Halfprin) 81 mg DAILY PO ; Start 10/08/18 at 09:00 Carvedilol (Coreg) 3.125 mg BID PO ; Start 10/07/18 at 21:00 Clonidine (Catapres) 0.1 mg Q8 PO ; Start 10/07/18 at 22:00 Docusate Sodium (Colace) 100 mg TID PO ; Start 10/07/18 at 21:00 Pantoprazole (Protonix Tab) 40 mg DAILY@06 PO ; Start 10/08/18 at 06:00 Ferrous Sulfate (Ferrous Sulfate (Ec)) 325 mg DAILY PO ; Start 10/08/18 at 09:00 IV Flush (NS 3 ml) 3 ml PER PROTOCOL IV ; Start 10/07/18 at 12:30 Ondansetron HCl (Zofran Inj) 4 mg Q6H PRN IV NAUSEA/VOMITING; Start 10/07/18 at 12:30 Acetaminophen (Tylenol Tab) 650 mg Q6H PRN PO .PAIN 1-3 OR TEMP; Start 10/07/18 at 12:30 Acetaminophen/ Hydrocodone Bitart ([place] (5/325)) 1 tab Q6H PRN PO .PAIN 4-6; Start 10/07/18 at 12:30 Cefepime HCl 50 ml @ 100 mls/hr Q24H IVPB Last administered on 10/07/18at 16:26; Admin Dose 100 MLS/HR; Start 10/07/18 at 16:00 Sodium Chloride 1,000 ml @ 75 mls/hr [id number] IV Last administered on 10/07/18 16:27; Admin Dose 75 MLS/HR; Start 10/07/18 at 16:00 EVA TREJO MD Oct 07, 2018 16:59
--- NOTE | 2018-10-07 19:00 | CONS ---
Assessment/Plan Assessment/Plan Hospital Course (Demo Recall) Acute kidney injury with hyperkalemia Encephalopathy Chronic systolic congestive heart failure Cardia myopathy with left ventricular ejection fraction 50% Paroxysmal atrial fibrillation History of occlusive left common femoral artery status post thrombectomy Echo dense structure seen by tricuspid valve, right atrium and IVC-thrombus, vegetation versus tumor CAD with history of CABG History of renal carcinoma status post nephrectomy approximately 8 years ago History of hypertension Diabetes Paroxysmal atrial fibrillation, intolerant to anticoagulation Patient presents with acute kidney injury, hyperkalemia and encephalopathy Undergoing treatment by nephrology. Repeat potassium pending Hold all nephro toxic medications Blood pressure in the lower side, holding parameters on clonidine and carvedilol Consultation Date/Type/Reason Admit Date/Time Type of Consult Cardiology Reason for Consultation Cardiac evaluation Date/Time of Note DATE: 10/07/18 TIME: 18:54 Hx of Present Illness This is an 82-year old female known to me from previous admissions who presents with progressive dyspnea not feeling well over the past week. As per the family at bedside, the son, patient has not been eating for approximately 1 week. Patient also with cough which is been productive. Last night, coughing worsened and associated with nausea and vomiting. She is been tired and sleeping most the time. She was recently at [facility] for similar episode for 1 week and then discharged home. 12 point review of systems was performed with all pertinent positives and negatives mentioned above and all else is negative Past Medical History Medical History: congestive heart failure, coronary artery disease, diabetes, hypertension Home Meds Active Scripts [Vancomycin Iv Per Pharmacy] 1 EA EACH No Conflict Check, 0 EA XX .PER PROTOCOL Prov:NUBIA TEJEDA MD 08/04/18 Reported Medications Clonidine Hcl* (Clonidine Hcl*) 0.1 Mg Tab, 0.1 MG PO Q8, TAB 06/25/18 Furosemide* (Furosemide*) 20 Mg Tablet, 20 MG PO DAILY 06/25/18 Carvedilol* (Carvedilol*) 3.125 Mg Tablet, 3.125 MG PO BID for 30 Days, #60 06/25/18 Amiodarone Hcl* (Amiodarone Hcl*) 200 Mg Tablet, 200 MG PO BID, #60 TAB 06/17/18 Dulaglutide (Trulicity) 0.75 Mg/0.5 Ml Pen.injctr, 1.75 MG SQ WEEKLY 06/11/18 Insulin Glargine,Hum.rec.anlog (Basaglar Elbertikpen U-100) 100 Unit/1 Ml Insuln.pen, 20 UNIT SC DAILY, EA 06/11/18 Ferrous Sulfate (Ferrous Sulfate) 325 Mg Tablet.dr, 325 MG PO DAILY 06/11/18 Aspirin* (Aspirin* EC) 81 Mg Tablet.dr, 81 MG PO DAILY, TAB 06/11/18 Empagliflozin (Jardiance) 10 Mg Tablet, 10 MG PO DAILY, TAB 06/11/18 Esomeprazole Mag Trihydrate (Nexium) 20 Mg Capsule.dr, 20 MG PO AC BREAKFAST, #30 CAP 06/11/18 Docusate Sodium* (Colace*) 100 Mg Capsule, 100 MG PO TID, #60 CAP 06/11/18 Allopurinol* (Allopurinol*) 100 Mg Tablet, 100 MG PO BID, TAB 06/11/18 Medications Current Medications Ondansetron HCl (Zofran Inj) 4 mg ER BRIDGE PRN IV NAUSEA/VOMITING Last administered on 10/07/18at 04:31; Admin Dose 4 MG; Start 10/07/18 at 04:00; Stop 10/08/18 at 03:59 Acetaminophen (Tylenol Tab) 650 mg ER BRIDGE PRN PO .MILD PAIN 1-3 OR TEMP; Start 10/07/18 at 04:00; Stop 10/08/18 at 03:59 Dextrose (D50w Syringe) ONCE PRN IV DECREASED GLUCOSE; Start 10/07/18 at 04:00 Allopurinol (Zyloprim) 100 mg BID PO ; Start 10/07/18 at 21:00 Amiodarone HCl (Cordarone) 200 mg BID PO ; Start 10/07/18 at 21:00 Aspirin (Halfprin) 81 mg DAILY PO ; Start 10/08/18 at 09:00 Carvedilol (Coreg) 3.125 mg BID PO ; Start 10/07/18 at 21:00 Clonidine (Catapres) 0.1 mg Q8 PO ; Start 10/07/18 at 22:00 Docusate Sodium (Colace) 100 mg TID PO ; Start 10/07/18 at 21:00 Pantoprazole (Protonix Tab) 40 mg DAILY@06 PO ; Start 10/08/18 at 06:00 Ferrous Sulfate (Ferrous Sulfate (Ec)) 325 mg DAILY PO ; Start 10/08/18 at 09:00 IV Flush (NS 3 ml) 3 ml PER PROTOCOL IV ; Start 10/07/18 at 12:30 Ondansetron HCl (Zofran Inj) 4 mg Q6H PRN IV NAUSEA/VOMITING; Start 10/07/18 at 12:30 Acetaminophen (Tylenol Tab) 650 mg Q6H PRN PO .PAIN 1-3 OR TEMP; Start 10/07/18 at 12:30 Acetaminophen/ Hydrocodone Bitart ([place] (5/325)) 1 tab Q6H PRN PO .PAIN 4-6; Start 10/07/18 at 12:30 Cefepime HCl 50 ml @ 100 mls/hr Q24H IVPB Last administered on 10/07/18at 16:26; Admin Dose 100 MLS/HR; Start 10/07/18 at 16:00 Sodium Chloride 1,000 ml @ 75 mls/hr [id number] IV Last administered on 10/07/18at 16:27; Admin Dose 75 MLS/HR; Start 10/07/18 at 16:00 Allergies: Coded Allergies: No Known Allergies (Verified Allergy, Unknown, 08/01/18) Past Surgical History Past Surgical Hx: coronary bypass surgery, other (Status post nephrectomy for renal carcinoma 8 years ago, status post thrombectomy of left common femoral artery) Family History Significant Family History: no pertinent family hx Social History Alcohol Use: none Smoking Status: Never smoker Drug Use: none Exam/Review of Systems Vital Signs Vitals Vital Signs Date Temp Pulse Resp B/P (MAP) Pulse Ox O2 O2 Flow FiO2 Time Delivery Rate 10/07/18 97.8 66 20 114/56 99 Room Air 15:36 (75) Exam Exam Sleeping, no apparent distress, son at bedside Head: normocephalic Respiratory: other (Coarse breath sounds bilaterally, no wheezing) Cardiovascular: regular rate and rhythm (S1-S2 heard) Gastrointestinal: soft, bowel sounds, other (Grimacing with palpation) Extremities: edema Labs Result Diagram: 10/07/18 0120 10/07/18 0120 Results 24hrs Laboratory Tests Test 10/07/18 01:20 10/07/18 01:24 10/07/18 02:23 10/07/18 03:26 White Blood Count 19.3 #H Red Blood Count 2.90 L Hemoglobin 7.2 L Hematocrit 23.4 L Mean Corpuscular Volume 80.7 L Mean Corpuscular 24.8 L Hemoglobin Mean Corpuscular 30.8 L Hemoglobin Concent Red Cell Distribution 15.5 H Width Platelet Count 457 #H Mean Platelet Volume 11.2 H Immature Granulocytes % 0.600 H Neutrophils % 80.5 H Lymphocytes % 15.8 Monocytes % 3.0 Eosinophils % 0.0 Basophils % 0.1 Nucleated Red Blood 0.0 Cells % Immature Granulocytes # 0.120 H Neutrophils # 15.5 H Lymphocytes # 3.1 H Monocytes # 0.6 Eosinophils # 0.0 Basophils # 0.0 Nucleated Red Blood 0.0 Cells # Sodium Level 132 L Potassium Level 6.6 *H Chloride Level 99 Carbon Dioxide Level 14 L Anion Gap 19 H Blood Urea Nitrogen 99 H Creatinine 2.86 H Est Glomerular Filtrat Rate mL/min Glucose Level 280 H Calcium Level 9.3 Total Bilirubin 0.1 L Direct Bilirubin 0.00 Indirect Bilirubin 0.1 Aspartate Amino 421 H Transf (AST/SGOT) Alanine 387 H Aminotransferase (ALT/SG PT) Alkaline Phosphatase 101 Troponin I 0.036 B-Type Natriuretic 2400 H Peptide Total Protein 6.0 L Albumin 3.2 L Globulin 2.80 Albumin/Globulin Ratio 1.14 POC Venous Lactate 2.4 *H Urine Color YELLOW Urine Clarity TURBID A Urine pH 5.0 Urine Specific [place] 1.011 Urine Ketones TRACE A Urine Nitrite NEGATIVE Urine Bilirubin NEGATIVE Urine Urobilinogen NEGATIVE Urine Leukocyte Esterase 2+ H Urine Microscopic RBC 167 H Urine Microscopic WBC > 182 H Urine Squamous FEW Epithelial Cells Urine Bacteria FEW A Urine Yeast (Budding) MANY A Urine Hemoglobin 3+ H Urine Glucose 3+ H Urine Total Protein 2+ H Lactic Acid Level 1.8 Test 10/07/18 03:48 10/07/18 04:27 10/07/18 05:20 Bedside Glucose 305 H 288 H Lactic Acid Level 1.7 Lactate Dehydrogenase 995 H Imaging Imaging ECG atrial fibrillation at 51 bpm, QRS 140 ms, nonspecific ST abnormalities Medications Medications Current Medications Ondansetron HCl (Zofran Inj) 4 mg ER BRIDGE PRN IV NAUSEA/VOMITING Last administered on 10/07/18at 04:31; Admin Dose 4 MG; Start 10/07/18 at 04:00; Stop 10/08/18 at 03:59 Acetaminophen (Tylenol Tab) 650 mg ER BRIDGE PRN PO .MILD PAIN 1-3 OR TEMP; Start 10/07/18 at 04:00; Stop 10/08/18 at 03:59 Dextrose (D50w Syringe) ONCE PRN IV DECREASED GLUCOSE; Start 10/07/18 at 04:00 Allopurinol (Zyloprim) 100 mg BID PO ; Start 10/07/18 at 21:00 Amiodarone HCl (Cordarone) 200 mg BID PO ; Start 10/07/18 at 21:00 Aspirin (Halfprin) 81 mg DAILY PO ; Start 10/08/18 at 09:00 Carvedilol (Coreg) 3.125 mg BID PO ; Start 10/07/18 at 21:00 Clonidine (Catapres) 0.1 mg Q8 PO ; Start 10/07/18 at 22:00 Docusate Sodium (Colace) 100 mg TID PO ; Start 10/07/18 at 21:00 Pantoprazole (Protonix Tab) 40 mg DAILY@06 PO ; Start 10/08/18 at 06:00 Ferrous Sulfate (Ferrous Sulfate (Ec)) 325 mg DAILY PO ; Start 10/08/18 at 09:00 IV Flush (NS 3 ml) 3 ml PER PROTOCOL IV ; Start 10/07/18 at 12:30 Ondansetron HCl (Zofran Inj) 4 mg Q6H PRN IV NAUSEA/VOMITING; Start 10/07/18 at 12:30 Acetaminophen (Tylenol Tab) 650 mg Q6H PRN PO .PAIN 1-3 OR TEMP; Start 10/07/18 at 12:30 Acetaminophen/ Hydrocodone Bitart ([place] (5/325)) 1 tab Q6H PRN PO .PAIN 4-6; Start 10/07/18 at 12:30 Cefepime HCl 50 ml @ 100 mls/hr Q24H IVPB Last administered on 10/07/18at 16:26; Admin Dose 100 MLS/HR; Start 10/07/18 at 16:00 Sodium Chloride 1,000 ml @ 75 mls/hr [id number] IV Last administered on 10/07/18at 16:27; Admin Dose 75 MLS/HR; Start 10/07/18 at 16:00 Alex Chávez DO Oct 07, 2018 19:00
[2018-10-07] MEDS: DOCUSATE SODIUM 100 MG CAP PO SCH (20:20)
[2018-10-07] MEDS: ALLOPURINOL 100 MG TAB PO SCH (20:21)
[2018-10-07] MEDS: AMIODARONE 200 MG TAB PO SCH (20:21)
[2018-10-07] MEDS ORDERED: GLUCOSE GEL 15 GRAM TUBE PO PRN ×2 (21:00)
[2018-10-07] MEDS ORDERED: GLUCAGON 1 MG INJ IM PRN (21:00)
[2018-10-07] MEDS ORDERED: GLUCOSE GEL 15 GRAM TUBE BUCCAL PRN (21:00)
[2018-10-07] MEDS: INSULIN ASPART [NOVOLOG] 3 ML PEN SC SCH (22:03)
[2018-10-08] VITALS (7 sets, daily range): BP systolic 93–118; BP diastolic 48–60; PULSE 68–74; RESP 18–19
[2018-10-08] MEDS: ACCU-CHEK XX SCH (02:00)
[2018-10-08] MEDS: SOD CHLORIDE 0.45% 1,000 ML IV SCH ×2 (04:58→18:40)
[2018-10-08] MEDS: PANTOPRAZOLE (EC) 40 MG TAB PO SCH (06:43)
[2018-10-08] MEDS: FERROUS SULFATE (EC) 325 MG TAB PO SCH (08:14)
[2018-10-08] MEDS: DOCUSATE SODIUM 100 MG CAP PO SCH ×3 (08:14→22:12)
[2018-10-08] MEDS: ASPIRIN (EC) 81 MG TAB PO SCH (08:14)
[2018-10-08] MEDS: ALLOPURINOL 100 MG TAB PO SCH ×2 (08:14→22:07)
[2018-10-08] MEDS: AMIODARONE 200 MG TAB PO SCH ×2 (08:15→22:09)
[2018-10-08] MEDS: INSULIN ASPART [NOVOLOG] 3 ML PEN SC SCH ×4 (08:17→21:00)
[2018-10-08] MEDS: HYDROCODONE/APAP (5/325) TAB PO PRN (09:41)
--- NOTE | 2018-10-08 09:56 | CONS ---
Assessment/Plan Assessment/Plan Assessment/Plan (Daily) 1. acute hyperkalemia due to BRANDON 2 .acute kidney injury on CKD III due to ATN from sepsis + prerenal azotemia 3. Sepsis due to UTI and PNA 4. acute UTI 5. H/o partial nephrectomy possibly due to RCC as per family 6. H/o CAD s/p CABG , Cardiomyopathy with EF 50%, Chronic Systolic HF, 7. H/O HTN 8. h/o DM II 9. Paroxysmal atrial fibrillation 10. acute encephalpahty possibly due to uremic and metabolic encephalopathy 11. 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 H/o HTN 13. H/o DM II 14. h/O paroxysmal atrial fibrillation Plan: IV abx Cefepime and IV vancomycin for sepsis, Renally dose all abx and monitor electrolytes BUN/Cr improved to 78/1.84, other electrolytes stable IVF 1/2 NS at 75 cc/hr Amiodarone for rate control, Renal US showed No hydronephrosis. No nephrolithiasis. 3.1 x 2 x 2.1 centimeter hypoechoic lesion arising from the lower pole of the left kidney. Follow-up to exclude neoplasm. There is echogenic material layering within the dependent portion of the bladder. Follow up to exclude infectious, inflammatory, or neoplastic process. Atrophic left kidney.- will MRI abdomen without contrast to better assess for Left kidney lesion will follow up Consultation Date/Type/Reason Admit Date/Time Oct 07, 2018 at 03:37 Initial Consult Date 10/07/18 Type of Consult NEPHROLOGY Requesting Provider: JAGJIT MONTES MD Date/Time of Note DATE: 10/08/18 TIME: 09:56 24 HR Interval Summary Free Text/Dictation BUN/Cr improved to 78/1.84, BP stable, afebrile, Exam/Review of Systems Exam Vitals Vital Signs Date Temp Pulse Resp B/P (MAP) Pulse Ox O2 O2 Flow FiO2 Time Delivery Rate 10/08/18 97.8 74 19 116/58 99 Room Air 08:16 (77) Intake and Output 10/07/18 10/07/18 10/08/18 1515:00 23:00 07:00 IntakeIntake Total 800 ml OutputOutput Total 500 ml BalanceBalance 300 ml Results Result Diagram: 10/08/18 0637 10/08/18 0637 Results 24hrs Laboratory Tests Test 10/07/18 20:03 10/07/18 20:14 10/07/18 21:41 10/08/18 02:47 Sodium Level 137 Potassium Level 4.7 Chloride Level 108 Carbon Dioxide Level 21 Anion Gap 8 # Blood Urea Nitrogen 90 H Creatinine 2.13 H Est Glomerular Filtrat Rate mL/min Glucose Level 209 Calcium Level 8.2 L Bedside Glucose 222 H 215 160 Test 10/08/18 06:37 10/08/18 08:12 White Blood Count 12.7 #H Red Blood Count 2.22 #L Hemoglobin 5.6 #*L Hematocrit 18.0 #L Mean Corpuscular 81.1 L Volume Mean Corpuscular 25.2 L Hemoglobin Mean Corpuscular 31.1 L Hemoglobin Concent Red Cell Distribution 15.9 H Width Platelet Count 347 # Mean Platelet Volume 10.7 H Immature Granulocytes 1.000 H % Neutrophils % 70.9 Segmented Neutrophils 77 % (Manual) Band Neutrophils % 6 H (Manual) Lymphocytes % 19.0 Lymphocytes % 17 (Manual) Monocytes % 7.5 Eosinophils % 1.3 Basophils % 0.3 Nucleated Red Blood 0.0 Cells % Immature Granulocytes 0.130 H # Neutrophils # 9.0 H Neutrophils # 9.9 H (Manual) Band Neutrophils # 0.7 H Lymphocytes (Manual) 2.1 Lymphocytes # 2.4 Monocytes # 1.0 H Eosinophils # 0.2 Basophils # 0.0 Nucleated Red Blood 0.0 Cells # Platelet Estimate NORMAL Giant Platelets 1 H Poikilocytosis 1+ Anisocytosis 1+ Ovalocytes 1+ Sodium Level 137 Potassium Level 4.8 Chloride Level 109 Carbon Dioxide Level 21 Anion Gap 7 Blood Urea Nitrogen 78 H Creatinine 1.84 H Est Glomerular Filtrat Rate mL/min Glucose Level 134 # Hemoglobin A1c Uric Acid 6.2 Calcium Level 8.2 L Iron Level 15 L Total Iron Binding 229 L Capacity Percent Iron 7 L Saturation Total Bilirubin 0.1 L Direct Bilirubin 0.00 Indirect Bilirubin 0.1 Aspartate Amino 435 H Transf (AST/SGOT) Alanine 503 H Aminotransferase (ALT /SGPT) Alkaline Phosphatase 89 Creatine Kinase 32 Total Protein 5.0 #L Albumin 2.5 L Globulin 2.50 Albumin/Globulin 1.00 Ratio Bedside Glucose 151 Medications Medication Current Medications Allopurinol (Zyloprim) 100 mg BID PO Last administered on 10/08/18 08:14; Admin Dose 100 MG; Start 10/07/18 at 21:00 Amiodarone HCl (Cordarone) 200 mg BID PO Last administered on 10/08/18 08:15; Admin Dose 200 MG; Start 10/07/18 at 21:00 Aspirin (Halfprin) 81 mg DAILY PO Last administered on 10/08/18 08:14; Admin Dose 81 MG; Start 10/08/18 at 09:00 Carvedilol (Coreg) 3.125 mg BID PO Last administered on 10/08/18 08:15; Admin Dose 3.125 MG; Start 10/07/18 at 21:00 Docusate Sodium (Colace) 100 mg TID PO Last administered on 10/08/18 08:14; Admin Dose 100 MG; Start 10/07/18 at 21:00 Pantoprazole (Protonix Tab) 40 mg DAILY@06 PO Last administered on 10/08/18 06:43; Admin Dose 40 MG; Start 10/08/18 at 06:00 Ferrous Sulfate (Ferrous Sulfate (Ec)) 325 mg DAILY PO Last administered on 10/08/18 08:14; Admin Dose 325 MG; Start 10/08/18 at 09:00 IV Flush (NS 3 ml) 3 ml PER PROTOCOL IV ; Start 10/07/18 at 12:30 Ondansetron HCl (Zofran Inj) 4 mg Q6H PRN IV NAUSEA/VOMITING; Start 10/07/18 at 12:30 Acetaminophen (Tylenol Tab) 650 mg Q6H PRN PO .PAIN 1-3 OR TEMP; Start 10/07/18 at 12:30 Acetaminophen/ Hydrocodone Bitart ([place] (5/325)) 1 tab Q6H PRN PO .PAIN 4-6 Last administered on 10/08/18 09:41; Admin Dose 1 TAB; Start 10/07/18 at 12:30 Cefepime HCl 50 ml @ 100 mls/hr Q24H IVPB Last administered on 10/07/18 16:26; Admin Dose 100 MLS/HR; Start 10/07/18 at 16:00 Sodium Chloride 1,000 ml @ 75 mls/hr [id number] IV Last administered on 10/08/18 04:58; Admin Dose 75 MLS/HR; Start 10/07/18 at 16:00 Clonidine (Catapres) 0.1 mg BID PO Last administered on 10/08/18at 08:15; Admin Dose 0.1 MG; Start 10/07/18 at 22:00 Diagnostic Test (Pha) (Accu-Chek) 1 ea 02 XX ; Start 10/08/18 at 02:00 Insulin Aspart (Novolog Insulin Pen) NOVOLOG *MILD* ALGORITHM WITH MEALS BEDTIME SC Last administered on 10/08/18at 08:17; Admin Dose 1 UNIT; Start 10/07/18 at 21:00 Miscellaneous Information 1 ea NOTE XX ; Start 10/07/18 at 21:00 Glucose (Glutose) 15 gm Q15M PRN PO DECREASED GLUCOSE; Start 10/07/18 at 21:00 Glucose (Glutose) 22.5 gm Q15M PRN PO DECREASED GLUCOSE; Start 10/07/18 at 21:00 Dextrose (D50w Syringe) 25 ml Q15M PRN IV DECREASED GLUCOSE; Start 10/07/18 at 21:00 Dextrose (D50w Syringe) 50 ml Q15M PRN IV DECREASED GLUCOSE; Start 10/07/18 at 21:00 Glucagon (Glucagen) 1 mg Q15M PRN IM DECREASED GLUCOSE; Start 10/07/18 at 21:00 Glucose (Glutose) 15 gm Q15M PRN BUCCAL DECREASED GLUCOSE; Start 10/07/18 at 21:00 Epoetin Alejo-epbx (Retacrit (Esrd)) 10,000 unit ONCE ONCE SC ; Start 10/08/18 at 10:00; Stop 10/08/18 at 10:01 EVA TREJO MD Oct 08, 2018 09:56
[2018-10-08] MEDS ORDERED: EPOETIN ALFA-EPBX (ESRD) 10,000 UNIT/ML VIAL SC ONE (10:00)
[2018-10-08] MEDS: SOD FERRIC GLUC COMPLX 125 MG in SOD CHLORIDE 0.9% 100 ML IVPB SCH (12:19)
--- NOTE | 2018-10-08 13:17 | CONS ---
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 Renal function improving Hold all nephro toxic medications Patient with anemia which is worsening, plan for blood transfusion Blood pressure in the lower side, holding parameters on clonidine and carvedilol Consultation Date/Type/Reason Admit Date/Time Oct 07, 2018 at 03:37 Initial Consult Date 10/07/18 Type of Consult Cardiology Requesting Provider: JAGJIT MONTES MD Date/Time of Note DATE: 10/08/18 TIME: 13:15 24 HR Interval Summary Free Text/Dictation Denies current shortness of breath, and discussion with nursing staff, screaming at times but denies pain Exam/Review of Systems Vital Signs Vitals Vital Signs Date Temp Pulse Resp B/P (MAP) Pulse Ox O2 O2 Flow FiO2 Time Delivery Rate 10/08/18 97.3 70 19 112/56 96 Room Air 10:52 (74) Intake and Output 10/07/18 10/07/18 10/08/18 1515:00 23:00 07:00 IntakeIntake Total 800 ml OutputOutput Total 500 ml BalanceBalance 300 ml Exam Constitutional: alert (Screaming at times, following commands intermittently) Head: normocephalic Respiratory: other (Coarse breath sounds bilaterally, no wheezing) Cardiovascular: regular rate and rhythm (S1-S2 heard) Gastrointestinal: soft, non-tender, bowel sounds Extremities: edema Labs Result Diagram: 10/08/18 0637 10/08/18 0637 Results 24hrs Laboratory Tests Test 10/07/18 20:03 10/07/18 20:14 10/07/18 21:41 10/08/18 02:47 Sodium Level 137 Potassium Level 4.7 Chloride Level 108 Carbon Dioxide Level 21 Anion Gap 8 # Blood Urea Nitrogen 90 H Creatinine 2.13 H Est Glomerular Filtrat Rate mL/min Glucose Level 209 Calcium Level 8.2 L Bedside Glucose 222 H 215 160 Test 10/08/18 06:37 10/08/18 08:12 10/08/18 12:11 White Blood Count 12.7 #H Red Blood Count 2.22 #L Hemoglobin 5.6 #*L Hematocrit 18.0 #L Mean Corpuscular 81.1 L Volume Mean Corpuscular 25.2 L Hemoglobin Mean Corpuscular 31.1 L Hemoglobin Concent Red Cell 15.9 H Distribution Width Platelet Count 347 # Mean Platelet Volume 10.7 H Immature 1.000 H Granulocytes % Neutrophils % 70.9 Segmented 77 Neutrophils % (Manual) Band Neutrophils % 6 H (Manual) Lymphocytes % 19.0 Lymphocytes % 17 (Manual) Monocytes % 7.5 Eosinophils % 1.3 Basophils % 0.3 Nucleated Red Blood 0.0 Cells % Immature 0.130 H Granulocytes # Neutrophils # 9.0 H Neutrophils # 9.9 H (Manual) Band Neutrophils # 0.7 H Lymphocytes (Manual) 2.1 Lymphocytes # 2.4 Monocytes # 1.0 H Eosinophils # 0.2 Basophils # 0.0 Nucleated Red Blood 0.0 Cells # Platelet Estimate NORMAL Giant Platelets 1 H Poikilocytosis 1+ Anisocytosis 1+ Ovalocytes 1+ Sodium Level 137 Potassium Level 4.8 Chloride Level 109 Carbon Dioxide Level 21 Anion Gap 7 Blood Urea Nitrogen 78 H Creatinine 1.84 H Est Glomerular Filtrat Rate mL/min Glucose Level 134 # Hemoglobin A1c 7.8 H Uric Acid 6.2 Calcium Level 8.2 L Iron Level 15 L Total Iron Binding 229 L Capacity Percent Iron 7 L Saturation Total Bilirubin 0.1 L Direct Bilirubin 0.00 Indirect Bilirubin 0.1 Aspartate Amino 435 H Transf (AST/SGOT) Alanine 503 H Aminotransferase (AL T/SGPT) Alkaline Phosphatase 89 Creatine Kinase 32 Total Protein 5.0 #L Albumin 2.5 L Globulin 2.50 Albumin/Globulin 1.00 Ratio Bedside Glucose 151 186 Medications Medications Current Medications Allopurinol (Zyloprim) 100 mg BID PO Last administered on 10/08/18at 08:14; Admin Dose 100 MG; Start 10/07/18 at 21:00 Amiodarone HCl (Cordarone) 200 mg BID PO Last administered on 10/08/18at 08:15; Admin Dose 200 MG; Start 10/07/18 at 21:00 Aspirin (Halfprin) 81 mg DAILY PO Last administered on 10/08/18 08:14; Admin Dose 81 MG; Start 10/08/18 at 09:00 Carvedilol (Coreg) 3.125 mg BID PO Last administered on 10/08/18 08:15; Admin Dose 3.125 MG; Start 10/07/18 at 21:00 Docusate Sodium (Colace) 100 mg TID PO Last administered on 10/08/18 12:12; Admin Dose 100 MG; Start 10/07/18 at 21:00 Pantoprazole (Protonix Tab) 40 mg DAILY@06 PO Last administered on 10/08/18 06:43; Admin Dose 40 MG; Start 10/08/18 at 06:00 Ferrous Sulfate (Ferrous Sulfate (Ec)) 325 mg DAILY PO Last administered on 10/08/18 08:14; Admin Dose 325 MG; Start 10/08/18 at 09:00 IV Flush (NS 3 ml) 3 ml PER PROTOCOL IV ; Start 10/07/18 at 12:30 Ondansetron HCl (Zofran Inj) 4 mg Q6H PRN IV NAUSEA/VOMITING; Start 10/07/18 at 12:30 Acetaminophen (Tylenol Tab) 650 mg Q6H PRN PO .PAIN 1-3 OR TEMP; Start 10/07/18 at 12:30 Acetaminophen/ Hydrocodone Bitart ([place] (5/325)) 1 tab Q6H PRN PO .PAIN 4-6 Last administered on 10/08/18 09:41; Admin Dose 1 TAB; Start 10/07/18 at 12:30 Cefepime HCl 50 ml @ 100 mls/hr Q24H IVPB Last administered on 10/07/18 16:26; Admin Dose 100 MLS/HR; Start 10/07/18 at 16:00 Sodium Chloride 1,000 ml @ 75 mls/hr [id number] IV Last administered on 10/08/18 04:58; Admin Dose 75 MLS/HR; Start 10/07/18 at 16:00 Clonidine (Catapres) 0.1 mg BID PO Last administered on 10/08/18 08:15; Admin Dose 0.1 MG; Start 10/07/18 at 22:00 Diagnostic Test (Pha) (Accu-Chek) 1 ea 02 XX ; Start 10/08/18 at 02:00 Insulin Aspart (Novolog Insulin Pen) NOVOLOG *MILD* ALGORITHM WITH MEALS BEDTIME SC Last administered on 10/08/18at 12:18; Admin Dose 2 UNIT; Start 10/07/18 at 21:00 Miscellaneous Information 1 ea NOTE XX ; Start 10/07/18 at 21:00 Glucose (Glutose) 15 gm Q15M PRN PO DECREASED GLUCOSE; Start 10/07/18 at 21:00 Glucose (Glutose) 22.5 gm Q15M PRN PO DECREASED GLUCOSE; Start 10/07/18 at 21:00 Dextrose (D50w Syringe) 25 ml Q15M PRN IV DECREASED GLUCOSE; Start 10/07/18 at 21:00 Dextrose (D50w Syringe) 50 ml Q15M PRN IV DECREASED GLUCOSE; Start 10/07/18 at 21:00 Glucagon (Glucagen) 1 mg Q15M PRN IM DECREASED GLUCOSE; Start 10/07/18 at 21:00 Glucose (Glutose) 15 gm Q15M PRN BUCCAL DECREASED GLUCOSE; Start 10/07/18 at 21:00 Ferric Sodium Gluconate Complex 125 mg/Sodium Chloride 110 ml @ 110 mls/hr DAILY@1300 IVPB Last administered on 10/08/18at 12:19; Admin Dose 110 MLS/HR; Start 10/08/18 at 13:00; Stop 10/12/18 at 13:59 Alex Chávez DO Oct 08, 2018 13:17
--- NOTE | 2018-10-08 14:50 | CONS ---
Assessment/Plan Assessment/Plan Hospital Course (Demo Recall) Awake, looks comfortable, no fevers overnight WBC 12.7 H&H 5.6 and 18 platelets 347 no shift no bands BUN 78 creatinine 1.84 Microbiology: Blood cultures negative, urine culture growing gram-negative rods Chest x-ray on admission revealed no evidence of CHF or pneumonia. Renal ultrasound revealed no hydronephrosis and no nephrolithiasis. 3.1 x 2 x 2.1 cm hypoechoic lesion left pole of the kidney questionable neoplasm Antimicrobials: Patient is on cefepime Physical examination: Well-developed chronically ill-appearing wasted elderly woman who is awake in no distress. Head atraumatic normocephalic neck is supple chest rise symmetrical breath sounds diminished bases. Heart: S1-S2. Abdomen soft bowel sounds present. Extremities with dependent bilateral lower extremities edema Assessment: 1. Sepsis, present on admission 2. Gram-negative melvi UTI 3. Acute on chronic anemia 4. Coronary artery disease with a history of CABG 5. Echo dense structure seen by tricuspid valve, right atrium and IVC- thrombus, vegetation versus tumor=== completed 6 weeks IV antibiotics> 6. History of renal cell carcinoma status post nephrectomy 7. Diabetes 8. Hypertension Plan: Patient is stable, cardiology and nephrology teams on case, continue on current antibiotics, await for final cultures Consultation Date/Type/Reason Admit Date/Time Oct 07, 2018 at 03:37 Initial Consult Date 10/07/18 Type of Consult id Requesting Provider: JAGJIT MONTES MD Date/Time of Note DATE: 10/08/18 TIME: 14:49 Exam/Review of Systems Exam Vitals Vital Signs Date Temp Pulse Resp B/P (MAP) Pulse Ox O2 O2 Flow FiO2 Time Delivery Rate 10/08/18 97.3 70 19 112/56 96 Room Air 10:52 (74) Intake and Output 10/07/18 10/07/18 10/08/18 1414:59 22:59 06:59 IntakeIntake Total 800 ml OutputOutput Total 500 ml BalanceBalance 300 ml Results Result Diagram: 10/08/18 0637 10/08/18 0637 Results 24hrs Laboratory Tests Test 10/07/18 20:03 10/07/18 20:14 10/07/18 21:41 10/08/18 02:47 Sodium Level 137 Potassium Level 4.7 Chloride Level 108 Carbon Dioxide Level 21 Anion Gap 8 # Blood Urea Nitrogen 90 H Creatinine 2.13 H Est Glomerular Filtrat Rate mL/min Glucose Level 209 Calcium Level 8.2 L Bedside Glucose 222 H 215 160 Test 10/08/18 06:37 10/08/18 08:12 10/08/18 12:11 White Blood Count 12.7 #H Red Blood Count 2.22 #L Hemoglobin 5.6 #*L Hematocrit 18.0 #L Mean Corpuscular 81.1 L Volume Mean Corpuscular 25.2 L Hemoglobin Mean Corpuscular 31.1 L Hemoglobin Concent Red Cell 15.9 H Distribution Width Platelet Count 347 # Mean Platelet Volume 10.7 H Immature 1.000 H Granulocytes % Neutrophils % 70.9 Segmented 77 Neutrophils % (Manual) Band Neutrophils % 6 H (Manual) Lymphocytes % 19.0 Lymphocytes % 17 (Manual) Monocytes % 7.5 Eosinophils % 1.3 Basophils % 0.3 Nucleated Red Blood 0.0 Cells % Immature 0.130 H Granulocytes # Neutrophils # 9.0 H Neutrophils # 9.9 H (Manual) Band Neutrophils # 0.7 H Lymphocytes (Manual) 2.1 Lymphocytes # 2.4 Monocytes # 1.0 H Eosinophils # 0.2 Basophils # 0.0 Nucleated Red Blood 0.0 Cells # Platelet Estimate NORMAL Giant Platelets 1 H Poikilocytosis 1+ Anisocytosis 1+ Ovalocytes 1+ Sodium Level 137 Potassium Level 4.8 Chloride Level 109 Carbon Dioxide Level 21 Anion Gap 7 Blood Urea Nitrogen 78 H Creatinine 1.84 H Est Glomerular Filtrat Rate mL/min Glucose Level 134 # Hemoglobin A1c 7.8 H Uric Acid 6.2 Calcium Level 8.2 L Iron Level 15 L Total Iron Binding 229 L Capacity Percent Iron 7 L Saturation Total Bilirubin 0.1 L Direct Bilirubin 0.00 Indirect Bilirubin 0.1 Aspartate Amino 435 H Transf (AST/SGOT) Alanine 503 H Aminotransferase (AL T/SGPT) Alkaline Phosphatase 89 Creatine Kinase 32 Total Protein 5.0 #L Albumin 2.5 L Globulin 2.50 Albumin/Globulin 1.00 Ratio Bedside Glucose 151 186 Medications Medication Current Medications Allopurinol (Zyloprim) 100 mg BID PO Last administered on 10/08/18at 08:14; Admin Dose 100 MG; Start 10/07/18 at 21:00 Amiodarone HCl (Cordarone) 200 mg BID PO Last administered on 10/08/18 08:15; Admin Dose 200 MG; Start 10/07/18 at 21:00 Aspirin (Halfprin) 81 mg DAILY PO Last administered on 10/08/18 08:14; Admin Dose 81 MG; Start 10/08/18 at 09:00 Carvedilol (Coreg) 3.125 mg BID PO Last administered on 10/08/18 08:15; Admin Dose 3.125 MG; Start 10/07/18 at 21:00 Docusate Sodium (Colace) 100 mg TID PO Last administered on 10/08/18 12:12; Admin Dose 100 MG; Start 10/07/18 at 21:00 Pantoprazole (Protonix Tab) 40 mg DAILY@06 PO Last administered on 10/08/18 06:43; Admin Dose 40 MG; Start 10/08/18 at 06:00 Ferrous Sulfate (Ferrous Sulfate (Ec)) 325 mg DAILY PO Last administered on 10/08/18 08:14; Admin Dose 325 MG; Start 10/08/18 at 09:00 IV Flush (NS 3 ml) 3 ml PER PROTOCOL IV ; Start 10/07/18 at 12:30 Ondansetron HCl (Zofran Inj) 4 mg Q6H PRN IV NAUSEA/VOMITING; Start 10/07/18 at 12:30 Acetaminophen (Tylenol Tab) 650 mg Q6H PRN PO .PAIN 1-3 OR TEMP; Start 10/07/18 at 12:30 Acetaminophen/ Hydrocodone Bitart ([place] (5/325)) 1 tab Q6H PRN PO .PAIN 4-6 Last administered on 10/08/18 09:41; Admin Dose 1 TAB; Start 10/07/18 at 12:30 Cefepime HCl 50 ml @ 100 mls/hr Q24H IVPB Last administered on 10/07/18 16:26; Admin Dose 100 MLS/HR; Start 10/07/18 at 16:00 Sodium Chloride 1,000 ml @ 75 mls/hr [id number] IV Last administered on 10/08/18 04:58; Admin Dose 75 MLS/HR; Start 10/07/18 at 16:00 Clonidine (Catapres) 0.1 mg BID PO Last administered on 10/08/18 08:15; Admin Dose 0.1 MG; Start 10/07/18 at 22:00 Diagnostic Test (Pha) (Accu-Chek) 1 ea 02 XX ; Start 10/08/18 at 02:00 Insulin Aspart (Novolog Insulin Pen) NOVOLOG *MILD* ALGORITHM WITH MEALS BEDTIME SC Last administered on 10/08/18at 12:18; Admin Dose 2 UNIT; Start 10/07/18 at 21:00 Miscellaneous Information 1 ea NOTE XX ; Start 10/07/18 at 21:00 Glucose (Glutose) 15 gm Q15M PRN PO DECREASED GLUCOSE; Start 10/07/18 at 21:00 Glucose (Glutose) 22.5 gm Q15M PRN PO DECREASED GLUCOSE; Start 10/07/18 at 21:00 Dextrose (D50w Syringe) 25 ml Q15M PRN IV DECREASED GLUCOSE; Start 10/07/18 at 21:00 Dextrose (D50w Syringe) 50 ml Q15M PRN IV DECREASED GLUCOSE; Start 10/07/18 at 21:00 Glucagon (Glucagen) 1 mg Q15M PRN IM DECREASED GLUCOSE; Start 10/07/18 at 21:00 Glucose (Glutose) 15 gm Q15M PRN BUCCAL DECREASED GLUCOSE; Start 10/07/18 at 21:00 Ferric Sodium Gluconate Complex 125 mg/Sodium Chloride 110 ml @ 110 mls/hr DAILY@1300 IVPB Last administered on 10/08/18at 12:19; Admin Dose 110 MLS/HR; Start 10/08/18 at 13:00; Stop 10/12/18 at 13:59 BARBARA ORDAZ NP Oct 08, 2018 14:50
[2018-10-08] MEDS: CEFEPIME 1GM/50 ML (PMX) 50 ML IVPB SCH (17:48)
--- NOTE | 2018-10-08 18:00 | PN ---
Date/Time of Note Date/Time of Note DATE: 10/08/18 TIME: 17:57 Assessment/Plan VTE Prophylaxis [place] [facility] [place]: 6 [place] [facility] [place] Yes Pharmacological prophylaxis: NA/contraindicated Pharm contraindication: bleeding, anticoag not tolerated Lines/Catheters IV Catheter Type (from [facility]): [place] Assessment/Plan Hospital Course Patient is undergoing blood transfusion for hemoglobin of 5.6, patient is demented, however, able to answer simple questions, denies pain. Dr. Winkler is asked to see patient in gastroenterology consultation. Assessment/Plan -Anemia, history of emesis at home and loss of appetite. Dr. Winkler is asked to see patient in gastroenterology consultation. -Sepsis secondary to urinary tract infection and possible early pneumonia. Continue antibiotics per ID. Dr. Elias is following in infection disease consultation. -Gram-negative rods UTI. -Hyperkalemia, resolved, status post treatment -Acute kidney injury, continue gentle hydration, monitor BUN and creatinine. Dr. Arreaga is following in nephrology consultation. -Hypertension -Systolic congestive heart failure. Dr. Chávez is following in cardiology consultation. -Cardiomyopathy with ejection fraction 50% -Atrial fibrillation, patient did not tolerate anticoagulation in the past due to bleeding and anemia, patient was on aspirin which is currently held due significant drop in hemoglobin. -Coronary artery disease, status post CABG -Diabetes mellitus type 2, continue Lantus and pre-meal NovoLog. -History of endocarditis, status post treatment Further recommendations based on clinical course. Plan of care discussed with Dr. Mi. Result Diagram: 10/08/18 0637 10/08/18 0637 Results 24hrs Laboratory Tests Test 10/07/18 20:03 10/07/18 20:14 10/07/18 21:41 10/08/18 02:47 Sodium Level 137 Potassium Level 4.7 Chloride Level 108 Carbon Dioxide Level 21 Anion Gap 8 # Blood Urea Nitrogen 90 H Creatinine 2.13 H Est Glomerular Filtrat Rate mL/min Glucose Level 209 Calcium Level 8.2 L Bedside Glucose 222 H 215 160 Test 10/08/18 06:37 10/08/18 08:12 10/08/18 12:11 10/08/18 13:42 White Blood Count 12.7 #H Red Blood Count 2.22 #L Hemoglobin 5.6 #*L Hematocrit 18.0 #L Mean Corpuscular 81.1 L Volume Mean Corpuscular 25.2 L Hemoglobin Mean Corpuscular 31.1 L Hemoglobin Concent Red Cell 15.9 H Distribution Width Platelet Count 347 # Mean Platelet Volume 10.7 H Immature 1.000 H Granulocytes % Neutrophils % 70.9 Segmented 77 Neutrophils % (Manual) Band Neutrophils % 6 H (Manual) Lymphocytes % 19.0 Lymphocytes % 17 (Manual) Monocytes % 7.5 Eosinophils % 1.3 Basophils % 0.3 Nucleated Red Blood 0.0 Cells % Immature 0.130 H Granulocytes # Neutrophils # 9.0 H Neutrophils # 9.9 H (Manual) Band Neutrophils # 0.7 H Lymphocytes (Manual) 2.1 Lymphocytes # 2.4 Monocytes # 1.0 H Eosinophils # 0.2 Basophils # 0.0 Nucleated Red Blood 0.0 Cells # Platelet Estimate NORMAL Giant Platelets 1 H Poikilocytosis 1+ Anisocytosis 1+ Ovalocytes 1+ Sodium Level 137 Potassium Level 4.8 Chloride Level 109 Carbon Dioxide Level 21 Anion Gap 7 Blood Urea Nitrogen 78 H Creatinine 1.84 H Est Glomerular Filtrat Rate mL/min Glucose Level 134 # Hemoglobin A1c 7.8 H Uric Acid 6.2 Calcium Level 8.2 L Iron Level 15 L Total Iron Binding 229 L Capacity Percent Iron 7 L Saturation Ferritin 85.0 Total Bilirubin 0.1 L Direct Bilirubin 0.00 Indirect Bilirubin 0.1 Aspartate Amino 435 H Transf (AST/SGOT) Alanine 503 H Aminotransferase (AL T/SGPT) Alkaline Phosphatase 89 Creatine Kinase 32 Total Protein 5.0 #L Albumin 2.5 L Globulin 2.50 Albumin/Globulin 1.00 Ratio Bedside Glucose 151 186 Urine Eosinophils % 0.0 Urine Random 30.58 Creatinine Urine Random Sodium 42 Urine 1.47 Protein/Creatinine Ratio Urine Total Protein 45.0 H Test 10/08/18 17:47 Bedside Glucose 139 Exam/Review of Systems Exam Vitals Vital Signs Date Temp Pulse Resp B/P (MAP) Pulse Ox O2 O2 Flow FiO2 Time Delivery Rate 10/08/18 97.6 69 19 112/54 96 Room Air 15:01 (73) Intake and Output 10/07/18 10/07/18 10/08/18 1515:00 23:00 07:00 IntakeIntake Total 800 ml OutputOutput Total 500 ml BalanceBalance 300 ml Exam Constitutional: alert, oriented Respiratory: diminished breath sounds Cardiovascular: irregular rhythm Gastrointestinal: soft, non-tender Genitourinary - Male: other (Incontinent of urine) Musculoskeletal: nl extremities to inspection Extremities: normal pulses Neurological: nl mental status Skin: other (Right foot wound) Results Results 24hrs Laboratory Tests Test 10/07/18 20:03 10/07/18 20:14 10/07/18 21:41 10/08/18 02:47 Sodium Level 137 Potassium Level 4.7 Chloride Level 108 Carbon Dioxide Level 21 Anion Gap 8 # Blood Urea Nitrogen 90 H Creatinine 2.13 H Est Glomerular Filtrat Rate mL/min Glucose Level 209 Calcium Level 8.2 L Bedside Glucose 222 H 215 160 Test 10/08/18 06:37 10/08/18 08:12 10/08/18 12:11 10/08/18 13:42 White Blood Count 12.7 #H Red Blood Count 2.22 #L Hemoglobin 5.6 #*L Hematocrit 18.0 #L Mean Corpuscular 81.1 L Volume Mean Corpuscular 25.2 L Hemoglobin Mean Corpuscular 31.1 L Hemoglobin Concent Red Cell 15.9 H Distribution Width Platelet Count 347 # Mean Platelet Volume 10.7 H Immature 1.000 H Granulocytes % Neutrophils % 70.9 Segmented 77 Neutrophils % (Manual) Band Neutrophils % 6 H (Manual) Lymphocytes % 19.0 Lymphocytes % 17 (Manual) Monocytes % 7.5 Eosinophils % 1.3 Basophils % 0.3 Nucleated Red Blood 0.0 Cells % Immature 0.130 H Granulocytes # Neutrophils # 9.0 H Neutrophils # 9.9 H (Manual) Band Neutrophils # 0.7 H Lymphocytes (Manual) 2.1 Lymphocytes # 2.4 Monocytes # 1.0 H Eosinophils # 0.2 Basophils # 0.0 Nucleated Red Blood 0.0 Cells # Platelet Estimate NORMAL Giant Platelets 1 H Poikilocytosis 1+ Anisocytosis 1+ Ovalocytes 1+ Sodium Level 137 Potassium Level 4.8 Chloride Level 109 Carbon Dioxide Level 21 Anion Gap 7 Blood Urea Nitrogen 78 H Creatinine 1.84 H Est Glomerular Filtrat Rate mL/min Glucose Level 134 # Hemoglobin A1c 7.8 H Uric Acid 6.2 Calcium Level 8.2 L Iron Level 15 L Total Iron Binding 229 L Capacity Percent Iron 7 L Saturation Ferritin 85.0 Total Bilirubin 0.1 L Direct Bilirubin 0.00 Indirect Bilirubin 0.1 Aspartate Amino 435 H Transf (AST/SGOT) Alanine 503 H Aminotransferase (AL T/SGPT) Alkaline Phosphatase 89 Creatine Kinase 32 Total Protein 5.0 #L Albumin 2.5 L Globulin 2.50 Albumin/Globulin 1.00 Ratio Bedside Glucose 151 186 Urine Eosinophils % 0.0 Urine Random 30.58 Creatinine Urine Random Sodium 42 Urine 1.47 Protein/Creatinine Ratio Urine Total Protein 45.0 H Test 10/08/18 17:47 Bedside Glucose 139 Medications Medication Current Medications Allopurinol (Zyloprim) 100 mg BID PO Last administered on 10/08/18 08:14; Admi n Dose 100 MG; Start 10/07/18 at 21:00 Amiodarone HCl (Cordarone) 200 mg BID PO Last administered on 10/08/18 08:15; Admin Dose 200 MG; Start 10/07/18 at 21:00 Aspirin (Halfprin) 81 mg DAILY PO Last administered on 10/08/18 08:14; Admin Dose 81 MG; Start 10/08/18 at 09:00 Carvedilol (Coreg) 3.125 mg BID PO Last administered on 10/08/18 08:15; Admin Dose 3.125 MG; Start 10/07/18 at 21:00 Docusate Sodium (Colace) 100 mg TID PO Last administered on 10/08/18 12:12; Admin Dose 100 MG; Start 10/07/18 at 21:00 Pantoprazole (Protonix Tab) 40 mg DAILY@06 PO Last administered on 10/08/18at 06:43; Admin Dose 40 MG; Start 10/08/18 at 06:00 Ferrous Sulfate (Ferrous Sulfate (Ec)) 325 mg DAILY PO Last administered on 10/08/18at 08:14; Admin Dose 325 MG; Start 10/08/18 at 09:00 IV Flush (NS 3 ml) 3 ml PER PROTOCOL IV ; Start 10/07/18 at 12:30 Ondansetron HCl (Zofran Inj) 4 mg Q6H PRN IV NAUSEA/VOMITING; Start 10/07/18 at 12:30 Acetaminophen (Tylenol Tab) 650 mg Q6H PRN PO .PAIN 1-3 OR TEMP; Start 10/07/18 at 12:30 Acetaminophen/ Hydrocodone Bitart ([place] (5/325)) 1 tab Q6H PRN PO .PAIN 4-6 Last administered on 10/08/18at 09:41; Admin Dose 1 TAB; Start 10/07/18 at 12:30 Cefepime HCl 50 ml @ 100 mls/hr Q24H IVPB Last administered on 10/08/18at 17:48; Admin Dose 100 MLS/HR; Start 10/07/18 at 16:00 Sodium Chloride 1,000 ml @ 75 mls/hr [id number] IV Last administered on 10/08/18at 04:58; Admin Dose 75 MLS/HR; Start 10/07/18 at 16:00 Clonidine (Catapres) 0.1 mg BID PO Last administered on 10/08/18at 08:15; Admin Dose 0.1 MG; Start 10/07/18 at 22:00 Diagnostic Test (Pha) (Accu-Chek) 1 ea 02 XX ; Start 10/08/18 at 02:00 Insulin Aspart (Novolog Insulin Pen) NOVOLOG *MILD* ALGORITHM WITH MEALS BEDT [place] SC Last administered on 10/08/18at 12:18; Admin Dose 2 UNIT; Start 10/07/18 at 21:00 Miscellaneous Information 1 ea NOTE XX ; Start 10/07/18 at 21:00 Glucose (Glutose) 15 gm Q15M PRN PO DECREASED GLUCOSE; Start 10/07/18 at 21:00 Glucose (Glutose) 22.5 gm Q15M PRN PO DECREASED GLUCOSE; Start 10/07/18 at 21:00 Dextrose (D50w Syringe) 25 ml Q15M PRN IV DECREASED GLUCOSE; Start 10/07/18 at 21:00 Dextrose (D50w Syringe) 50 ml Q15M PRN IV DECREASED GLUCOSE; Start 10/07/18 at 21:00 Glucagon (Glucagen) 1 mg Q15M PRN IM DECREASED GLUCOSE; Start 10/07/18 at 21:00 Glucose (Glutose) 15 gm Q15M PRN BUCCAL DECREASED GLUCOSE; Start 10/07/18 at 21:00 Ferric Sodium Gluconate Complex 125 mg/Sodium Chloride 110 ml @ 110 mls/hr DAILY@1300 IVPB Last administered on 10/08/18at 12:19; Admin Dose 110 MLS/HR; Start 10/08/18 at 13:00; Stop 10/12/18 at 13:59 OCTAVIANO SHAFFER 10, 2019 18:00
[2018-10-08] MEDS: QUETIAPINE 25 MG TAB PO SCH (22:08)
[2018-10-09] MEDS: SOD CHLORIDE 0.45% 1,000 ML IV SCH (01:03)
[2018-10-09] MEDS: ACCU-CHEK XX SCH (02:00)
--- NOTE | 2018-10-09 02:08 | CONS ---
DATE OF ADMISSION: 10/07/2018 DATE OF CONSULTATION: HISTORY OF PRESENT ILLNESS: The patient is an 82-year-old female with a history of coronary artery d isease, status post coronary artery bypass graft, atrial fibrillation, on aspirin, with a history of renal cancer, status post nephrectomy 8 years ago, diabetes mellitus, hypertension, cardiomyopathy wi th ejection fraction of 50%, history of endocarditis, status post femoral artery thrombectomy, osteop orosis, and dementia, comes to the hospital with decreased appetite, cough and low back pain. The stephanie ly was evaluated in the ER and found to have leukocytosis, elevated lactic acid, and urinalysis sh owed the patient had an infection, so she was admitted with a diagnosis of UTI. GI consult was hinds d in for severe anemia. There was a significant drop in hematocrit to 18. She is getting a blood tr ansfusion. Not much information could be obtained from the patient. No nausea, no vomiting, no GI b leeding. Again, this information is unreliable. REVIEW OF SYSTEMS: Negative. PAST MEDICAL HISTORY: CHF, coronary artery disease, diabetes mellitus, hypertension, atrial fibrilla tion, only on aspirin. MEDICATIONS: All reviewed from home. She is on: 1. Aspirin. 2. Pantoprazole. 3. Amiodarone. PAST SURGICAL HISTORY: Coronary artery bypass graft and thrombectomy. FAMILY HISTORY: Significant for diabetes and hypertension. ALLERGIES: NONE. SOCIAL HISTORY: Negative for alcohol and smoking. PHYSICAL EXAMINATION: GENERAL: Moderately built, nourished, not in distress. VITAL SIGNS: Stable. HEENT: Unremarkable. NECK: Supple, no thyromegaly, no lymphadenopathy. CARDIOVASCULAR: No murmur, gallop or click. LUNGS: Clear. ABDOMEN: Benign. EXTREMITIES: No edema. CENTRAL NERVOUS SYSTEM: Grossly within normal limits. Urine grew Gram-negative organism. IMPRESSION: 1. Urinary tract infection. 2. Sepsis. 3. Status post coronary artery bypass graft. 4. Peripheral vascular disease. 5. Atrial fibrillation. 6. Status post surgery for renal cell carcinoma 8 years ago. 7. Diabetes. 8. Hypertension. 9. Severe anemia. PLAN: At this point, is to work up for anemia, stop aspirin for the time being, and continue PPI. W e will follow closely. Dictated By: VELIA CHAVIRA/JAYDEN Conf#: [id number] DID#: [id number] CC: JAGJIT MONTES MD;*EndCC*
[2018-10-09 03:53] VITALS: BP 109/53; PULSE 66; RESP 18
[2018-10-09] MEDS: PANTOPRAZOLE (EC) 40 MG TAB PO SCH (06:00)
[2018-10-09 07:45] VITALS: BP 134/57; PULSE 66; RESP 18
--- NOTE | 2018-10-09 08:07 | CONS ---
Assessment/Plan Assessment/Plan Hospital Course (Demo Recall) 82 yo female with hl/o anemia No signs GI bleeding per RN. She had been agitated yesterday which was not baseline for her. She was started on seroquel. Lethargic. When I try to examine her she starts to scream. 1. Urinary tract infection. 2. Sepsis. 3. Status post coronary artery bypass graft. 4. Peripheral vascular disease. 5. Atrial fibrillation. 6. Status post surgery for renal cell carcinoma 8 years ago. 7. Diabetes. 8. Hypertension. 9. Severe anemia. -IV iron 10. Transaminitis -liver us 11. Elevated CEA: 24.1 PLAN: stat AM labs Monitor LFTs US of liver IV iron Pt examined and plan of care d/w Dr. Winkler Consultation Date/Type/Reason Admit Date/Time Oct 07, 2018 at 03:37 Initial Consult Date 10/07/18 Requesting Provider: JAGJIT MONTES MD Date/Time of Note DATE: 10/09/18 TIME: 08:02 Exam/Review of Systems Exam Vitals Vital Signs Date Temp Pulse Resp B/P (MAP) Pulse Ox O2 O2 Flow FiO2 Time Delivery Rate 10/09/18 97.6 66 18 134/57 96 07:45 (82) 10/08/18 Room Air 23:58 Intake and Output 10/08/18 10/08/18 10/09/18 1515:00 23:00 07:00 IntakeIntake Total 50 ml OutputOutput Total 600 ml BalanceBalance -600 ml 50 ml Results Result Diagram: 10/08/18 0637 10/08/1837 Results 24hrs Laboratory Tests Test 10/08/18 08:12 10/08/18 12:11 10/08/18 13:42 10/08/18 17:47 Bedside Glucose 151 186 139 Urine Eosinophils % 0.0 Urine Random 30.58 Creatinine Urine Random Sodium 42 Urine 1.47 Protein/Creatinine Ratio Urine Total Protein 45.0 H Test 10/08/18 18:55 10/08/18 22:06 Absolute 0.086 Reticulocyte Count Percent Reticulocyte 3.1 H Count Prothrombin Time 13.4 Prothrombin Time 1.0 Ratio INR International 1.01 Normalized Ratio Ferritin 62.5 Carcinoembryonic 24.1 H Antigen Vitamin B12 Level > 1000 H Folate > 20.0 H Bedside Glucose 152 Medications Medication Current Medications Allopurinol (Zyloprim) 100 mg BID PO Last administered on 10/08/18 22:07; Admin Dose 100 MG; Start 10/07/18 at 21:00 Amiodarone HCl (Cordarone) 200 mg BID PO Last administered on 10/08/18 22:09; Admin Dose 200 MG; Start 10/07/18 at 21:00 Aspirin (Halfprin) 81 mg DAILY PO Last administered on 10/08/18 08:14; Admin Dose 81 MG; Start 10/08/18 at 09:00 Carvedilol (Coreg) 3.125 mg BID PO Last administered on 10/08/18 22:11; Admin Dose 3.125 MG; Start 10/07/18 at 21:00 Docusate Sodium (Colace) 100 mg TID PO Last administered on 10/08/18 22:12; Admin Dose 100 MG; Start 10/07/18 at 21:00 Pantoprazole (Protonix Tab) 40 mg DAILY@06 PO Last administered on 10/08/18 06:43; Admin Dose 40 MG; Start 10/08/18 at 06:00 Ferrous Sulfate (Ferrous Sulfate (Ec)) 325 mg DAILY PO Last administered on 10/08/18 08:14; Admin Dose 325 MG; Start 10/08/18 at 09:00 IV Flush (NS 3 ml) 3 ml PER PROTOCOL IV ; Start 10/07/18 at 12:30 Ondansetron HCl (Zofran Inj) 4 mg Q6H PRN IV NAUSEA/VOMITING; Start 10/07/18 at 12:30 Acetaminophen (Tylenol Tab) 650 mg Q6H PRN PO .PAIN 1-3 OR TEMP; Start 10/07/18 at 12:30 Acetaminophen/ Hydrocodone Bitart ([place] (5/325)) 1 tab Q6H PRN PO .PAIN 4-6 Last administered on 10/08/18 09:41; Admin Dose 1 TAB; Start 10/07/18 at 12:30 Cefepime HCl 50 ml @ 100 mls/hr Q24H IVPB Last administered on 10/08/18 17:48; Admin Dose 100 MLS/HR; Start 10/07/18 at 16:00 Sodium Chloride 1,000 ml @ 75 mls/hr [id number] IV Last administered on 10/09/18at 01:03; Admin Dose 75 MLS/HR; Start 10/07/18 at 16:00 Clonidine (Catapres) 0.1 mg BID PO Last administered on 10/08/18at 22:10; Admin Dose 0.1 MG; Start 10/07/18 at 22:00 Diagnostic Test (Pha) (Accu-Chek) 1 ea 02 XX ; Start 10/08/18 at 02:00 Insulin Aspart (Novolog Insulin Pen) NOVOLOG *MILD* ALGORITHM WITH MEALS BEDTIME SC Last administered on 10/08/18at 12:18; Admin Dose 2 UNIT; Start 10/07/18 at 21:00 Miscellaneous Information 1 ea NOTE XX ; Start 10/07/18 at 21:00 Glucose (Glutose) 15 gm Q15M PRN PO DECREASED GLUCOSE; Start 10/07/18 at 21:00 Glucose (Glutose) 22.5 gm Q15M PRN PO DECREASED GLUCOSE; Start 10/07/18 at 21:00 Dextrose (D50w Syringe) 25 ml Q15M PRN IV DECREASED GLUCOSE; Start 10/07/18 at 21:00 Dextrose (D50w Syringe) 50 ml Q15M PRN IV DECREASED GLUCOSE; Start 10/07/18 at 21:00 Glucagon (Glucagen) 1 mg Q15M PRN IM DECREASED GLUCOSE; Start 10/07/18 at 21:00 Glucose (Glutose) 15 gm Q15M PRN BUCCAL DECREASED GLUCOSE; Start 10/07/18 at 21:00 Ferric Sodium Gluconate Complex 125 mg/Sodium Chloride 110 ml @ 110 mls/hr DAILY@1300 IVPB Last administered on 10/08/18at 12:19; Admin Dose 110 MLS/HR; Start 10/08/18 at 13:00; Stop 10/12/18 at 13:59 Quetiapine Fumarate (Seroquel) 25 mg BID PO Last administered on 10/08/18at 22:08; Admin Dose 25 MG; Start 10/08/18 at 22:00 MART CALDERON Oct 09, 2018 08:07
[2018-10-09] MEDS: INSULIN ASPART [NOVOLOG] 3 ML PEN SC SCH ×4 (08:13→20:46)
[2018-10-09] MEDS: ASPIRIN (EC) 81 MG TAB PO SCH (09:00)
[2018-10-09] MEDS: FERROUS SULFATE (EC) 325 MG TAB PO SCH (09:00)
[2018-10-09] MEDS: QUETIAPINE 25 MG TAB PO SCH ×2 (09:00→20:17)
[2018-10-09] MEDS: DOCUSATE SODIUM 100 MG CAP PO SCH ×3 (09:00→21:00)
[2018-10-09] MEDS: ALLOPURINOL 100 MG TAB PO SCH ×2 (09:00→20:19)
[2018-10-09] MEDS: AMIODARONE 200 MG TAB PO SCH ×2 (09:00→20:27)
--- NOTE | 2018-10-09 11:43 | CONS ---
Assessment/Plan Assessment/Plan Hospital Course (Demo Recall) All noted, no fevers, looks comfortable Microbiology: Blood cultures negative, urine culture + MDR Kleb Chest x-ray on admission revealed no evidence of CHF or pneumonia. Renal ultrasound revealed no hydronephrosis and no nephrolithiasis. 3.1 x 2 x 2.1 cm hypoechoic lesion left pole of the kidney questionable neoplasm Antimicrobials: Cefepime Physical examination: Well-developed chronically ill-appearing wasted elderly woman who is in no distress. Head atraumatic normocephalic neck is supple chest rise symmetrical breath sounds diminished bases. Heart: S1-S2. Abdomen soft bowel sounds present. Extremities with dependent bilateral lower extremities edema Assessment: 1. Sepsis, present on admission 2. Gram-negative melvi UTI 3. Acute on chronic anemia 4. Coronary artery disease with a history of CABG 5. Echo dense structure seen by tricuspid valve, right atrium and IVC- thrombus, vegetation versus tumor=== completed 6 weeks IV antibiotics> 6. History of renal cell carcinoma status post nephrectomy 7. Diabetes 8. Hypertension Plan: Stable, change abx to Merrem, bld transfusion Consultation Date/Type/Reason Admit Date/Time Oct 07, 2018 at 03:37 Initial Consult Date 10/07/18 Type of Consult id Requesting Provider: JAGJIT MONTES MD Date/Time of Note DATE: 10/09/18 TIME: 11:41 Exam/Review of Systems Exam Vitals Vital Signs Date Temp Pulse Resp B/P (MAP) Pulse Ox O2 O2 Flow FiO2 Time Delivery Rate 10/09/18 97.6 66 18 134/57 96 07:45 (82) 10/08/18 Room Air 23:58 Intake and Output 10/08/18 10/08/18 10/09/18 1515:00 23:00 07:00 IntakeIntake Total 50 ml OutputOutput Total 600 ml BalanceBalance -600 ml 50 ml Results Result Diagram: 10/09/18 1012 10/09/18 1012 Results 24hrs Laboratory Tests Test 10/08/18 12:11 10/08/18 13:42 10/08/18 17:47 10/08/18 18:55 Bedside Glucose 186 139 Urine Eosinophils % 0.0 Urine Random 30.58 Creatinine Urine Random Sodium 42 Urine 1.47 Protein/Creatinine Ratio Urine Total Protein 45.0 H Absolute 0.086 Reticulocyte Count Percent Reticulocyte 3.1 H Count Prothrombin Time 13.4 Prothrombin Time 1.0 Ratio INR International 1.01 Normalized Ratio Ferritin 62.5 Carcinoembryonic 24.1 H Antigen Vitamin B12 Level > 1000 H Folate > 20.0 H Test 10/08/18 22:06 10/09/18 08:09 10/09/18 10:12 Bedside Glucose 152 164 White Blood Count 10.6 Red Blood Count 2.70 #L Hemoglobin 6.9 #*L Hematocrit 21.5 L Mean Corpuscular 79.6 L Volume Mean Corpuscular 25.6 L Hemoglobin Mean Corpuscular 32.1 Hemoglobin Concent Red Cell 16.8 H Distribution Width Platelet Count 300 Mean Platelet Volume 10.0 Immature 0.800 H Granulocytes % Neutrophils % Lymphocytes % Monocytes % Eosinophils % Basophils % Nucleated Red Blood 0.0 Cells % Immature 0.090 H Granulocytes # Neutrophils # Lymphocytes # Monocytes # Eosinophils # Basophils # Nucleated Red Blood Cells # Sodium Level 138 Potassium Level 4.5 Chloride Level 108 Carbon Dioxide Level 19 L Anion Gap 11 Blood Urea Nitrogen 59 H Creatinine 1.46 H Est Glomerular Filtrat Rate mL/min Glucose Level 146 Calcium Level 8.7 Total Bilirubin 0.3 Direct Bilirubin 0.00 Indirect Bilirubin 0.3 Aspartate Amino 132 H Transf (AST/SGOT) Alanine 337 H Aminotransferase (AL T/SGPT) Alkaline Phosphatase 91 Total Protein 5.0 L Albumin 2.5 L Globulin 2.50 Albumin/Globulin 1.00 Ratio Medications Medication Current Medications Allopurinol (Zyloprim) 100 mg BID PO Last administered on 10/08/18at 22:07; Admin Dose 100 MG; Start 10/07/18 at 21:00 Amiodarone HCl (Cordarone) 200 mg BID PO Last administered on 10/08/18at 22:09; Admin Dose 200 MG; Start 10/07/18 at 21:00 Aspirin (Halfprin) 81 mg DAILY PO Last administered on 10/08/18 08:14; Admin Dose 81 MG; Start 10/08/18 at 09:00; Status Hold Carvedilol (Coreg) 3.125 mg BID PO Last administered on 10/08/18at 22:11; Admin Dose 3.125 MG; Start 10/07/18 at 21:00 Docusate Sodium (Colace) 100 mg TID PO Last administered on 10/08/18at 22:12; Admin Dose 100 MG; Start 10/07/18 at 21:00 Pantoprazole (Protonix Tab) 40 mg DAILY@06 PO Last administered on 10/08/18 06:43; Admin Dose 40 MG; Start 10/08/18 at 06:00 Ferrous Sulfate (Ferrous Sulfate (Ec)) 325 mg DAILY PO Last administered on 10/08/18 08:14; Admin Dose 325 MG; Start 10/08/18 at 09:00 IV Flush (NS 3 ml) 3 ml PER PROTOCOL IV ; Start 10/07/18 at 12:30 Ondansetron HCl (Zofran Inj) 4 mg Q6H PRN IV NAUSEA/VOMITING; Start 10/07/18 at 12:30 Acetaminophen (Tylenol Tab) 650 mg Q6H PRN PO .PAIN 1-3 OR TEMP; Start 10/07/18 at 12:30 Acetaminophen/ Hydrocodone Bitart ([place] (5/325)) 1 tab Q6H PRN PO .PAIN 4-6 Last administered on 10/08/18at 09:41; Admin Dose 1 TAB; Start 10/07/18 at 12:30 Cefepime HCl 50 ml @ 100 mls/hr Q24H IVPB Last administered on 10/08/18 17:48; Admin Dose 100 MLS/HR; Start 10/07/18 at 16:00 Sodium Chloride 1,000 ml @ 75 mls/hr [id number] IV Last administered on 10/09/18at 01:03; Admin Dose 75 MLS/HR; Start 10/07/18 at 16:00 Clonidine (Catapres) 0.1 mg BID PO Last administered on 10/08/18at 22:10; Admin Dose 0.1 MG; Start 10/07/18 at 22:00 Diagnostic Test (Pha) (Accu-Chek) 1 ea 02 XX ; Start 10/08/18 at 02:00 Insulin Aspart (Novolog Insulin Pen) NOVOLOG *MILD* ALGORITHM WITH MEALS BEDTIME SC Last administered on 10/09/18 08:13; Admin Dose 1 UNIT; Start 10/07/18 at 21:00 Miscellaneous Information 1 ea NOTE XX ; Start 10/07/18 at 21:00 Glucose (Glutose) 15 gm Q15M PRN PO DECREASED GLUCOSE; Start 10/07/18 at 21:00 Glucose (Glutose) 22.5 gm Q15M PRN PO DECREASED GLUCOSE; Start 10/07/18 at 21:00 Dextrose (D50w Syringe) 25 ml Q15M PRN IV DECREASED GLUCOSE; Start 10/07/18 at 21:00 Dextrose (D50w Syringe) 50 ml Q15M PRN IV DECREASED GLUCOSE; Start 10/07/18 at 21:00 Glucagon (Glucagen) 1 mg Q15M PRN IM DECREASED GLUCOSE; Start 10/07/18 at 21:00 Glucose (Glutose) 15 gm Q15M PRN BUCCAL DECREASED GLUCOSE; Start 10/07/18 at 21:00 Ferric Sodium Gluconate Complex 125 mg/Sodium Chloride 110 ml @ 110 mls/hr DAILY@1300 IVPB Last administered on 10/08/18at 12:19; Admin Dose 110 MLS/HR; Start 10/08/18 at 13:00; Stop 10/12/18 at 13:59 Quetiapine Fumarate (Seroquel) 25 mg BID PO Last administered on 10/08/18at 22:08; Admin Dose 25 MG; Start 10/08/18 at 22:00 BARBARA ORDAZ NP Oct 09, 2018 11:43
[2018-10-09 11:47] VITALS: BP 139/65; PULSE 89; RESP 19
[2018-10-09] MEDS: MEROPENEM 500MG/50 ML (PMX) 50 ML IVPB SCH ×2 (12:25→20:44)
--- NOTE | 2018-10-09 13:29 | CONS ---
Assessment/Plan Assessment/Plan Assessment/Plan (Daily) 1. acute hyperkalemia due to BRANDON 2 .acute kidney injury on CKD III due to ATN from sepsis + prerenal azotemia 3. Sepsis due to UTI and PNA 4. acute UTI 5. H/o partial nephrectomy possibly due to RCC as per family 6. H/o CAD s/p CABG , Cardiomyopathy with EF 50%, Chronic Systolic HF, 7. H/O HTN 8. h/o DM II 9. Paroxysmal atrial fibrillation 10. acute encephalpahty possibly due to uremic and metabolic encephalopathy 11. 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 H/o HTN 13. H/o DM II 14. h/O paroxysmal atrial fibrillation Plan: IV abx Cefepime and IV vancomycin for sepsis, Renally dose all abx and monitor electrolytes BUN/Cr improved to 59/1.46, other electrolytes stable , on IV iron for iron deficiency anemia IVF 1/2 NS at 75 cc/hr Amiodarone for rate control, Renal US showed No hydronephrosis. No nephrolithiasis.- 3.1 x 2 x 2.1 centimeter hypoechoic lesion arising from the lower pole of the left kidney. Follow-up to exclude neoplasm. There is echogenic material layering within the dependent portion of the bladder. Follow up to exclude infectious, inflammatory, or neoplastic process. Atrophic left kidney.- will MRI abdomen without contrast to better assess for Left kidney lesion will follow up Consultation Date/Type/Reason Admit Date/Time Oct 07, 2018 at 03:37 Initial Consult Date 10/07/18 Type of Consult NEPHROLOGY Requesting Provider: JAGJIT MONTES MD Date/Time of Note DATE: 10/09/18 TIME: 13:29 Exam/Review of Systems Exam Vitals Vital Signs Date Temp Pulse Resp B/P (MAP) Pulse Ox O2 O2 Flow FiO2 Time Delivery Rate 10/09/18 97.9 89 19 139/65 96 11:47 (89) 10/08/18 Room Air 23:58 Intake and Output 10/08/18 10/08/18 10/09/18 1515:00 23:00 07:00 IntakeIntake Total 50 ml OutputOutput Total 600 ml BalanceBalance -600 ml 50 ml Exam Constitutional: alert, oriented Head: normocephalic Neck: supple Respiratory: diminished breath sounds Cardiovascular: irregular rhythm Gastrointestinal: soft, non-tender Genitourinary - Male: other (Incontinent of urine) Musculoskeletal: nl extremities to inspection Extremities: normal pulses Neurological: nl mental status Skin: other (Right foot wound with dressing) Results Result Diagram: 10/09/18 1012 10/09/18 1012 Results 24hrs Laboratory Tests Test 10/08/18 13:42 10/08/18 17:47 10/08/18 18:55 10/08/18 22:06 Urine Eosinophils 0.0 % Urine Random 30.58 Creatinine Urine Random 42 Sodium Urine 1.47 Protein/Creatinine Ratio Urine Total 45.0 H Protein Bedside Glucose 139 152 Absolute 0.086 Reticulocyte Count Percent 3.1 H Reticulocyte Count Prothrombin Time 13.4 Prothrombin Time 1.0 Ratio INR International 1.01 Normalized Ratio Ferritin 62.5 Carcinoembryonic 24.1 H Antigen Vitamin B12 Level > 1000 H Folate > 20.0 H Test 10/09/18 08:09 10/09/18 10:12 10/09/18 11:56 10/09/18 12:08 Bedside Glucose 164 149 White Blood Count 10.6 Red Blood Count 2.70 #L Hemoglobin 6.9 #*L Hematocrit 21.5 L Mean Corpuscular 79.6 L Volume Mean Corpuscular 25.6 L Hemoglobin Mean Corpuscular 32.1 Hemoglobin Concent Red Cell 16.8 H Distribution Width Platelet Count 300 Mean Platelet 10.0 Volume Immature 0.800 H Granulocytes % Neutrophils % Segmented 84 H Neutrophils % (Manual) Lymphocytes % Lymphocytes % 12 L (Manual) Monocytes % Monocytes % 3 (Manual) Eosinophils % Eosinophils % 1 (Manual) Basophils % Nucleated Red 0.0 Blood Cells % Immature 0.090 H Granulocytes # Neutrophils # Lymphocytes 1.2 (Manual) Lymphocytes # Monocytes # Monocytes # 0.3 (Manual) Eosinophils # Basophils # Nucleated Red Blood Cells # Platelet Estimate NORMAL Polychromasia 1+ Poikilocytosis 1+ Anisocytosis 2+ Microcytosis 2+ Ovalocytes 1+ Sodium Level 138 Potassium Level 4.5 Chloride Level 108 Carbon Dioxide 19 L Level Anion Gap 11 Blood Urea 59 H Nitrogen Creatinine 1.46 H Est Glomerular Filtrat Rate mL/min Glucose Level 146 Calcium Level 8.7 Total Bilirubin 0.3 Direct Bilirubin 0.00 Indirect Bilirubin 0.3 Aspartate Amino 132 H Transf (AST/SGOT) Alanine 337 H Aminotransferase ( ALT/SGPT) Alkaline 91 Phosphatase Total Protein 5.0 L Albumin 2.5 L Globulin 2.50 Albumin/Globulin 1.00 Ratio Lab Scanned Report REFERENCE LAB Medications Medication Current Medications Allopurinol (Zyloprim) 100 mg BID PO Last administered on 10/08/18 22:07; Admin Dose 100 MG; Start 10/07/18 at 21:00 Amiodarone HCl (Cordarone) 200 mg BID PO Last administered on 10/08/18 22:09; Admin Dose 200 MG; Start 10/07/18 at 21:00 Aspirin (Halfprin) 81 mg DAILY PO Last administered on 10/08/18 08:14; Admin Dose 81 MG; Start 10/08/18 at 09:00; Status Hold Carvedilol (Coreg) 3.125 mg BID PO Last administered on 10/08/18 22:11; Admin Dose 3.125 MG; Start 10/07/18 at 21:00 Docusate Sodium (Colace) 100 mg TID PO Last administered on 10/08/18 22:12; Admin Dose 100 MG; Start 10/07/18 at 21:00 Pantoprazole (Protonix Tab) 40 mg DAILY@06 PO Last administered on 10/08/18 06:43; Admin Dose 40 MG; Start 10/08/18 at 06:00 Ferrous Sulfate (Ferrous Sulfate (Ec)) 325 mg DAILY PO Last administered on 10/08/18 08:14; Admin Dose 325 MG; Start 10/08/18 at 09:00 IV Flush (NS 3 ml) 3 ml PER PROTOCOL IV ; Start 10/07/18 at 12:30 Ondansetron HCl (Zofran Inj) 4 mg Q6H PRN IV NAUSEA/VOMITING; Start 10/07/18 at 12:30 Acetaminophen (Tylenol Tab) 650 mg Q6H PRN PO .PAIN 1-3 OR TEMP; Start 10/07/18 at 12:30 Acetaminophen/ Hydrocodone Bitart ([place] (5/325)) 1 tab Q6H PRN PO .PAIN 4-6 Last administered on 10/08/18 09:41; Admin Dose 1 TAB; Start 10/07/18 at 12:30 Sodium Chloride 1,000 ml @ 75 mls/hr [id number] IV Last administered on 7/11/19at 01:03; Admin Dose 75 MLS/HR; Start 10/07/18 at 16:00 Clonidine (Catapres) 0.1 mg BID PO Last administered on 10/08/18at 22:10; Admin Dose 0.1 MG; Start 10/07/18 at 22:00 Diagnostic Test (Pha) (Accu-Chek) 1 ea 02 XX ; Start 10/08/18 at 02:00 Insulin Aspart (Novolog Insulin Pen) NOVOLOG *MILD* ALGORITHM WITH MEALS BEDTIME SC Last administered on 10/09/18at 11:59; Admin Dose 1 UNIT; Start 10/07/18 at 21:00 Miscellaneous Information 1 ea NOTE XX ; Start 10/07/18 at 21:00 Glucose (Glutose) 15 gm Q15M PRN PO DECREASED GLUCOSE; Start 10/07/18 at 21:00 Glucose (Glutose) 22.5 gm Q15M PRN PO DECREASED GLUCOSE; Start 10/07/18 at 21:00 Dextrose (D50w Syringe) 25 ml Q15M PRN IV DECREASED GLUCOSE; Start 10/07/18 at 21:00 Dextrose (D50w Syringe) 50 ml Q15M PRN IV DECREASED GLUCOSE; Start 10/07/18 at 21:00 Glucagon (Glucagen) 1 mg Q15M PRN IM DECREASED GLUCOSE; Start 10/07/18 at 21:00 Glucose (Glutose) 15 gm Q15M PRN BUCCAL DECREASED GLUCOSE; Start 10/07/18 at 21 :00 Ferric Sodium Gluconate Complex 125 mg/Sodium Chloride 110 ml @ 110 mls/hr DAILY@1300 IVPB Last administered on 10/08/18at 12:19; Admin Dose 110 MLS/HR; Start 10/08/18 at 13:00; Stop 10/12/18 at 13:59 Quetiapine Fumarate (Seroquel) 25 mg BID PO Last administered on 10/08/18at 22:08; Admin Dose 25 MG; Start 10/08/18 at 22:00 Meropenem/Sodium Chloride 50 ml @ 100 mls/hr Q12 IVPB Last administered on 10/09/18at 12:25; Admin Dose 100 MLS/HR; Start 10/09/18 at 12:00 EVA TREJO MD Oct 09, 2018 13:29
--- NOTE | 2018-10-09 14:03 | PN ---
Date/Time of Note Date/Time of Note DATE: 10/09/18 TIME: 13:50 Assessment/Plan VTE Prophylaxis Risk score (from Ns)>0 risk: 8 SCD applied (from [facility] [place]): Yes Pharmacological prophylaxis: NA/contraindicated Pharm contraindication: anticoag not tolerated, other (Drop in hemoglobin) Lines/Catheters IV C[facility]ter Type (from [facility]): [place] Assessment/Plan Hospital Course Patient is awake, alert, denies pain, however demented, screaming, will obtain psychiatric consult. Hemoglobin is 6.9, will transfuse 1 units of packed red blood cells. Assessment/Plan -Anemia, history of emesis at home and loss of appetite. Dr. Winkler is following in gastroenterology consultation. -Sepsis secondary to urinary tract infection and possible early pneumonia. Continue antibiotics per ID. Dr. Elias is following in infection disease consultation. -Gram-negative rods UTI. -Hyperkalemia, resolved, status post treatment -Acute kidney injury, continue gentle hydration, monitor BUN and creatinine. Dr. Arreaga is following in nephrology consultation. -Hypertension -Systolic congestive heart failure. Dr. Chávez is following in cardiology consultation. -Cardiomyopathy with ejection fraction 50% -Atrial fibrillation, patient did not tolerate anticoagulation in the past due to bleeding and anemia, patient was on aspirin which is currently held due significant drop in hemoglobin. -Coronary artery disease, status post CABG -Diabetes mellitus type 2, continue Lantus and pre-meal NovoLog. -History of endocarditis, status post treatment -Sacral, right foot, and left garcia wounds. Continue current care per wound care recommendations. -History of left femoral artery thrombectomy, left garcia open wound. Dr. Dawson is asked to see patient in vascular surgery consultation for evaluation of left garcia wound. Further recommendations based on clinical course. Plan of care discussed with Dr. Mi. Result Diagram: 10/09/18 1012 10/09/18 1012 Results 24hrs Laboratory Tests Test 10/08/18 17:47 10/08/18 18:55 10/08/18 22:06 10/09/18 08:09 Bedside Glucose 139 152 164 Absolute 0.086 Reticulocyte Count Percent 3.1 H Reticulocyte Count Prothrombin Time 13.4 Prothrombin Time 1.0 Ratio INR International 1.01 Normalized Ratio Ferritin 62.5 Carcinoembryonic 24.1 H Antigen Vitamin B12 Level > 1000 H Folate > 20.0 H Test 10/09/18 10:12 10/09/18 11:56 10/09/18 12:08 White Blood Count 10.6 Red Blood Count 2.70 #L Hemoglobin 6.9 #*L Hematocrit 21.5 L Mean Corpuscular 79.6 L Volume Mean Corpuscular 25.6 L Hemoglobin Mean Corpuscular 32.1 Hemoglobin Concent Red Cell 16.8 H Distribution Width Platelet Count 300 Mean Platelet 10.0 Volume Immature 0.800 H Granulocytes % Neutrophils % Segmented 84 H Neutrophils % (Manual) Lymphocytes % Lymphocytes % 12 L (Manual) Monocytes % Monocytes % 3 (Manual) Eosinophils % Eosinophils % 1 (Manual) Basophils % Nucleated Red 0.0 Blood Cells % Immature 0.090 H Granulocytes # Neutrophils # Lymphocytes 1.2 (Manual) Lymphocytes # Monocytes # Monocytes # 0.3 (Manual) Eosinophils # Basophils # Nucleated Red Blood Cells # Platelet Estimate NORMAL Polychromasia 1+ Poikilocytosis 1+ Anisocytosis 2+ Microcytosis 2+ Ovalocytes 1+ Sodium Level 138 Potassium Level 4.5 Chloride Level 108 Carbon Dioxide 19 L Level Anion Gap 11 Blood Urea 59 H Nitrogen Creatinine 1.46 H Est Glomerular Filtrat Rate mL/min Glucose Level 146 Calcium Level 8.7 Total Bilirubin 0.3 Direct Bilirubin 0.00 Indirect Bilirubin 0.3 Aspartate Amino 132 H Transf (AST/SGOT) Alanine 337 H Aminotransferase ( ALT/SGPT) Alkaline 91 Phosphatase Total Protein 5.0 L Albumin 2.5 L Globulin 2.50 Albumin/Globulin 1.00 Ratio Bedside Glucose 149 Lab Scanned Report REFERENCE LAB Exam/Review of Systems Exam Vitals Vital Signs Date Temp Pulse Resp B/P (MAP) Pulse Ox O2 O2 Flow FiO2 Time Delivery Rate 10/09/18 97.9 89 19 139/65 96 11:47 (89) 10/08/18 Room Air 23:58 Intake and Output 10/08/18 10/08/18 10/09/18 1414:59 22:59 06:59 IntakeIntake Total 50 ml OutputOutput Total 600 ml BalanceBalance -600 ml 50 ml Exam Constitutional: alert, oriented Respiratory: diminished breath sounds Cardiovascular: irregular rhythm Gastrointestinal: soft, non-tender Genitourinary - Male: other (Incontinent of urine) Musculoskeletal: nl extremities to inspection Extremities: normal pulses Neurological: nl mental status Skin: other (multiple wounds) Results Results 24hrs Laboratory Tests Test 10/08/18 17:47 10/08/18 18:55 10/08/18 22:06 10/09/18 08:09 Bedside Glucose 139 152 164 Absolute 0.086 Reticulocyte Count Percent 3.1 H Reticulocyte Count Prothrombin Time 13.4 Prothrombin Time 1.0 Ratio INR International 1.01 Normalized Ratio Ferritin 62.5 Carcinoembryonic 24.1 H Antigen Vitamin B12 Level > 1000 H Folate > 20.0 H Test 10/09/18 10:12 10/09/18 11:56 10/09/18 12:08 White Blood Count 10.6 Red Blood Count 2.70 #L Hemoglobin 6.9 #*L Hematocrit 21.5 L Mean Corpuscular 79.6 L Volume Mean Corpuscular 25.6 L Hemoglobin Mean Corpuscular 32.1 Hemoglobin Concent Red Cell 16.8 H Distribution Width Platelet Count 300 Mean Platelet 10.0 Volume Immature 0.800 H Granulocytes % Neutrophils % Segmented 84 H Neutrophils % (Manual) Lymphocytes % Lymphocytes % 12 L (Manual) Monocytes % Monocytes % 3 (Manual) Eosinophils % Eosinophils % 1 (Manual) Basophils % Nucleated Red 0.0 Blood Cells % Immature 0.090 H Granulocytes # Neutrophils # Lymphocytes 1.2 (Manual) Lymphocytes # Monocytes # Monocytes # 0.3 (Manual) Eosinophils # Basophils # Nucleated Red Blood Cells # Platelet Estimate NORMAL Polychromasia 1+ Poikilocytosis 1+ Anisocytosis 2+ Microcytosis 2+ Ovalocytes 1+ Sodium Level 138 Potassium Level 4.5 Chloride Level 108 Carbon Dioxide 19 L Level Anion Gap 11 Blood Urea 59 H Nitrogen Creatinine 1.46 H Est Glomerular Filtrat Rate mL/min Glucose Level 146 Calcium Level 8.7 Total Bilirubin 0.3 Direct Bilirubin 0.00 Indirect Bilirubin 0.3 Aspartate Amino 132 H Transf (AST/SGOT) Alanine 337 H Aminotransferase ( ALT/SGPT) Alkaline 91 Phosphatase Total Protein 5.0 L Albumin 2.5 L Globulin 2.50 Albumin/Globulin 1.00 Ratio Bedside Glucose 149 Lab Scanned Report REFERENCE LAB Medications Medication Current Medications Allopurinol (Zyloprim) 100 mg BID PO Last administered on 10/08/18at 22:07; Admin Dose 100 MG; Start 10/07/18 at 21:00 Amiodarone HCl (Cordarone) 200 mg BID PO Last administered on 10/08/18 22:09; Admin Dose 200 MG; Start 10/07/18 at 21:00 Aspirin (Halfprin) 81 mg DAILY PO Last administered on 10/08/18 08:14; Admin Dose 81 MG; Start 10/08/18 at 09:00; Status Hold Carvedilol (Coreg) 3.125 mg BID PO Last administered on 10/08/18 22:11; Admin Dose 3.125 MG; Start 10/07/18 at 21:00 Docusate Sodium (Colace) 100 mg TID PO Last administered on 10/08/18 22:12; Admin Dose 100 MG; Start 10/07/18 at 21:00 Pantoprazole (Protonix Tab) 40 mg DAILY@06 PO Last administered on 10/08/18 06:43; Admin Dose 40 MG; Start 10/08/18 at 06:00 Ferrous Sulfate (Ferrous Sulfate (Ec)) 325 mg DAILY PO Last administered on 10/08/18 08:14; Admin Dose 325 MG; Start 10/08/18 at 09:00 IV Flush (NS 3 ml) 3 ml PER PROTOCOL IV ; Start 10/07/18 at 12:30 Ondansetron HCl (Zofran Inj) 4 mg Q6H PRN IV NAUSEA/VOMITING; Start 10/07/18 at 12:30 Acetaminophen (Tylenol Tab) 650 mg Q6H PRN PO .PAIN 1-3 OR TEMP; Start 10/07/18 at 12:30 Acetaminophen/ Hydrocodone Bitart ([place] (5/325)) 1 tab Q6H PRN PO .PAIN 4-6 Last administered on 10/08/18 09:41; Admin Dose 1 TAB; Start 10/07/18 at 12:30 Sodium Chloride 1,000 ml @ 75 mls/hr [id number] IV Last administered on 10/09/18 01:03; Admin Dose 75 MLS/HR; Start 10/07/18 at 16:00 Clonidine (Catapres) 0.1 mg BID PO Last administered on 10/08/18 22:10; Admin Dose 0.1 MG; Start 10/07/18 at 22:00 Diagnostic Test (Pha) (Accu-Chek) 1 ea 02 XX ; Start 10/08/18 at 02:00 Insulin Aspart (Novolog Insulin Pen) NOVOLOG *MILD* ALGORITHM WITH MEALS BEDTIME SC Last administered on 10/09/18at 11:59; Admin Dose 1 UNIT; Start 10/07/18 at 21:00 Miscellaneous Information 1 ea NOTE XX ; Start 10/07/18 at 21:00 Glucose (Glutose) 15 gm Q15M PRN PO DECREASED GLUCOSE; Start 10/07/18 at 21:00 Glucose (Glutose) 22.5 gm Q15M PRN PO DECREASED GLUCOSE; Start 10/07/18 at 21:00 Dextrose (D50w Syringe) 25 ml Q15M PRN IV DECREASED GLUCOSE; Start 10/07/18 at 21:00 Dextrose (D50w Syringe) 50 ml Q15M PRN IV DECREASED GLUCOSE; Start 10/07/18 at 21:00 Glucagon (Glucagen) 1 mg Q15M PRN IM DECREASED GLUCOSE; Start 10/07/18 at 21:00 Glucose (Glutose) 15 gm Q15M PRN BUCCAL DECREASED GLUCOSE; Start 10/07/18 at 21:00 Ferric Sodium Gluconate Complex 125 mg/Sodium Chloride 110 ml @ 110 mls/hr DAILY@1300 IVPB Last administered on 10/08/18at 12:19; Admin Dose 110 MLS/HR; Start 10/08/18 at 13:00; Stop 10/12/18 at 13:59 Quetiapine Fumarate (Seroquel) 25 mg BID PO Last administered on 10/08/18at 22:08; Admin Dose 25 MG; Start 10/08/18 at 22:00 Meropenem/Sodium Chloride 50 ml @ 100 mls/hr Q12 IVPB Last administered on 10/09/18at 12:25; Admin Dose 100 MLS/HR; Start 10/09/18 at 12:00 OCTAVIANO SHAFFER Oct 09, 2018 14:03
[2018-10-09] MEDS: SOD FERRIC GLUC COMPLX 125 MG in SOD CHLORIDE 0.9% 100 ML IVPB SCH (14:13)
[2018-10-09 15:00] VITALS: BP 153/68; PULSE 63; RESP 18
--- NOTE | 2018-10-09 18:25 | CONS ---
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 Renal function improving Hold all nephro toxic medications Patient with anemia which is worsening, plan for blood transfusion Blood pressure labile, holding parameters on antihypertensives Consultation Date/Type/Reason Admit Date/Time Oct 07, 2018 at 03:37 Initial Consult Date 10/07/18 Type of Consult Cardiology Requesting Provider: JAGJIT MONTES MD Date/Time of Note DATE: 10/09/18 TIME: 18:24 24 HR Interval Summary Free Text/Dictation Patient seen and examined. Denies pain in discussion with nurse. Still screaming at times Exam/Review of Systems Vital Signs Vitals Vital Signs Date Temp Pulse Resp B/P (MAP) Pulse Ox O2 O2 Flow FiO2 Time Delivery Rate 10/09/18 97.9 63 18 153/68 91 15:00 (96) 10/08/18 Room Air 23:58 Intake and Output 10/08/18 10/08/18 10/09/18 1515:00 23:00 07:00 IntakeIntake Total 50 ml OutputOutput Total 600 ml BalanceBalance -600 ml 50 ml Exam Exam Sleeping but arousable, no apparent distress Head: normocephalic Respiratory: other (Coarse breath sounds bilaterally, no wheezing) Cardiovascular: regular rate and rhythm (S1-S2 heard) Gastrointestinal: soft, non-tender, bowel sounds Extremities: edema Labs Result Diagram: 10/09/18 1012 10/09/18 1012 Results 24hrs Laboratory Tests Test 10/08/18 18:55 10/08/18 22:06 10/09/18 08:09 10/09/18 10:12 Absolute 0.086 Reticulocyte Count Percent 3.1 H Reticulocyte Count Prothrombin Time 13.4 Prothrombin Time 1.0 Ratio INR International 1.01 Normalized Ratio Ferritin 62.5 Carcinoembryonic 24.1 H Antigen Vitamin B12 Level > 1000 H Folate > 20.0 H Bedside Glucose 152 164 White Blood Count 10.6 Red Blood Count 2.70 #L Hemoglobin 6.9 #*L Hematocrit 21.5 L Mean Corpuscular 79.6 L Volume Mean Corpuscular 25.6 L Hemoglobin Mean Corpuscular 32.1 Hemoglobin Concent Red Cell 16.8 H Distribution Width Platelet Count 300 Mean Platelet 10.0 Volume Immature 0.800 H Granulocytes % Neutrophils % Segmented 84 H Neutrophils % (Manual) Lymphocytes % Lymphocytes % 12 L (Manual) Monocytes % Monocytes % 3 (Manual) Eosinophils % Eosinophils % 1 (Manual) Basophils % Nucleated Red 0.0 Blood Cells % Immature 0.090 H Granulocytes # Neutrophils # Lymphocytes 1.2 (Manual) Lymphocytes # Monocytes # Monocytes # 0.3 (Manual) Eosinophils # Basophils # Nucleated Red Blood Cells # Platelet Estimate NORMAL Polychromasia 1+ Poikilocytosis 1+ Anisocytosis 2+ Microcytosis 2+ Ovalocytes 1+ Sodium Level 138 Potassium Level 4.5 Chloride Level 108 Carbon Dioxide 19 L Level Anion Gap 11 Blood Urea 59 H Nitrogen Creatinine 1.46 H Est Glomerular Filtrat Rate mL/min Glucose Level 146 Calcium Level 8.7 Total Bilirubin 0.3 Direct Bilirubin 0.00 Indirect Bilirubin 0.3 Aspartate Amino 132 H Transf (AST/SGOT) Alanine 337 H Aminotransferase ( ALT/SGPT) Alkaline 91 Phosphatase Total Protein 5.0 L Albumin 2.5 L Globulin 2.50 Albumin/Globulin 1.00 Ratio Test 10/09/18 11:56 10/09/18 12:08 10/09/18 16:57 Bedside Glucose 149 116 Lab Scanned Report REFERENCE LAB Medications Medications Current Medications Allopurinol (Zyloprim) 100 mg BID PO Last administered on 10/08/18at 22:07; Admin Dose 100 MG; Start 10/07/18 at 21:00 Amiodarone HCl (Cordarone) 200 mg BID PO Last administered on 10/08/18 22:09; Admin Dose 200 MG; Start 10/07/18 at 21:00 Aspirin (Halfprin) 81 mg DAILY PO Last administered on 10/08/18 08:14; Admin Dose 81 MG; Start 10/08/18 at 09:00; Status Hold Carvedilol (Coreg) 3.125 mg BID PO Last administered on 7/10/19at 22:11; Admin Dose 3.125 MG; Start 10/07/18 at 21:00 Docusate Sodium (Colace) 100 mg TID PO Last administered on 10/08/18at 22:12; Admin Dose 100 MG; Start 10/07/18 at 21:00 Pantoprazole (Protonix Tab) 40 mg DAILY@06 PO Last administered on 10/08/18at 06:43; Admin Dose 40 MG; Start 10/08/18 at 06:00 Ferrous Sulfate (Ferrous Sulfate (Ec)) 325 mg DAILY PO Last administered on 10/08/18at 08:14; Admin Dose 325 MG; Start 10/08/18 at 09:00 IV Flush (NS 3 ml) 3 ml PER PROTOCOL IV ; Start 10/07/18 at 12:30 Ondansetron HCl (Zofran Inj) 4 mg Q6H PRN IV NAUSEA/VOMITING; Start 10/07/18 at 12:30 Acetaminophen (Tylenol Tab) 650 mg Q6H PRN PO .PAIN 1-3 OR TEMP; Start 10/07/18 at 12:30 Acetaminophen/ Hydrocodone Bitart ([place] (5/325)) 1 tab Q6H PRN PO .PAIN 4-6 Last administered on 10/08/18at 09:41; Admin Dose 1 TAB; Start 10/07/18 at 12:30 Sodium Chloride 1,000 ml @ 75 mls/hr [id number] IV Last administered on 10/09/18at 01:03; Admin Dose 75 MLS/HR; Start 10/07/18 at 16:00 Clonidine (Catapres) 0.1 mg BID PO Last administered on 10/08/18at 22:10; Admin Dose 0.1 MG; Start 10/07/18 at 22:00 Diagnostic Test (Pha) (Accu-Chek) 1 ea 02 XX ; Start 10/08/18 at 02:00 Insulin Aspart (Novolog Insulin Pen) NOVOLOG *MILD* ALGORITHM WITH MEALS BEDTIME SC Last administered on 10/09/18at 11:59; Admin Dose 1 UNIT; Start 10/07/18 at 21:00 Miscellaneous Information 1 ea NOTE XX ; Start 10/07/18 at 21:00 Glucose (Glutose) 15 gm Q15M PRN PO DECREASED GLUCOSE; Start 10/07/18 at 21:00 Glucose (Glutose) 22.5 gm Q15M PRN PO DECREASED GLUCOSE; Start 10/07/18 at 21:00 Dextrose (D50w Syringe) 25 ml Q15M PRN IV DECREASED GLUCOSE; Start 10/07/18 at 21:00 Dextrose (D50w Syringe) 50 ml Q15M PRN IV DECREASED GLUCOSE; Start 10/07/18 at 21:00 Glucagon (Glucagen) 1 mg Q15M PRN IM DECREASED GLUCOSE; Start 10/07/18 at 21:00 Glucose (Glutose) 15 gm Q15M PRN BUCCAL DECREASED GLUCOSE; Start 10/07/18 at 21:00 Ferric Sodium Gluconate Complex 125 mg/Sodium Chloride 110 ml @ 110 mls/hr DAILY@1300 IVPB Last administered on 10/09/18at 14:13; Admin Dose 110 MLS/HR; Start 10/08/18 at 13:00; Stop 10/12/18 at 13:59 Quetiapine Fumarate (Seroquel) 25 mg BID PO Last administered on 10/08/18at 22:08; Admin Dose 25 MG; Start 10/08/18 at 22:00 Meropenem/Sodium Chloride 50 ml @ 100 mls/hr Q12 IVPB Last administered on 10/09/18at 12:25; Admin Dose 100 MLS/HR; Start 10/09/18 at 12:00 Alex Chávez DO Oct 09, 2018 18:25
[2018-10-09 20:00] VITALS: BP 143/64; PULSE 63; RESP 18
[2018-10-09] MEDS: DEXTROSE 5%-0.45% NACL 1,000 ML IV SCH (20:40)
[2018-10-10] MEDS: ACCU-CHEK XX SCH (02:05)
[2018-10-10 03:48] VITALS: BP 101/49; RESP 18
[2018-10-10] MEDS: PANTOPRAZOLE (EC) 40 MG TAB PO SCH (06:00)
[2018-10-10] MEDS: COLLAGENASE 5 GM (UD JAR) TOP SCH ×2 (06:06→08:48)
[2018-10-10 07:10] VITALS: BP 124/61; PULSE 60; RESP 17
[2018-10-10] MEDS: INSULIN ASPART [NOVOLOG] 3 ML PEN SC SCH ×4 (07:51→21:00)
[2018-10-10] MEDS: ALLOPURINOL 100 MG TAB PO SCH ×2 (08:59→20:29)
[2018-10-10] MEDS: DOCUSATE SODIUM 100 MG CAP PO SCH ×3 (09:00→20:28)
[2018-10-10] MEDS: QUETIAPINE 25 MG TAB PO SCH ×2 (09:00→20:29)
[2018-10-10] MEDS: FERROUS SULFATE (EC) 325 MG TAB PO SCH (09:00)
[2018-10-10] MEDS: AMIODARONE 200 MG TAB PO SCH (09:00)
[2018-10-10] MEDS: MEROPENEM 500MG/50 ML (PMX) 50 ML IVPB SCH ×2 (09:22→20:30)
--- NOTE | 2018-10-10 10:03 | PSY ---
Date/Time of Note Date/Time of Note DATE: 10/10/18 TIME: 10:01 Psychiatric Subjective Eval Consent Pt consented to telemedicine: No Subjective Evaluation Patient location: inpatient Chief Complaint: [id number] from home,decreased appetite,cough, lower back pain History of present illness Patient is a 82-year-old female with extensive medical history of coronary artery disease , CABG, and atrial fibrillation, admitted due to bleeding and anemia . [id number] evaluation patient is screaming however he she does not seem to be in any distress she is disorganized and confused just yells constantly irritable cannot process information and in poor contact with reality Hospitalization: other Medical history Problems Medical Problems: (1) Acute congestive heart failure Status: Acute (2) Acute dyspnea Status: Acute (3) Acute dyspnea Status: Acute (4) Acute exacerbation of CHF (congestive heart failure) Status: Acute (5) Acute on chronic renal failure Status: Acute (6) Congestive heart failure Status: Acute (7) Diabetes Status: Acute (8) Diabetes mellitus type 2 in obese Status: Acute (9) Dyspnea Status: Acute (10) Elevated brain natriuretic peptide (BNP) level Status: Acute (11) Endocarditis Status: Acute (12) History of renal carcinoma Status: Acute (13) Hyperglycemia Status: Acute (14) Hyperkalemia Status: Acute (15) Hyperkalemia Status: Acute (16) Hypertension Status: Acute (17) Hypoxia Status: Acute (18) Left leg pain Status: Acute (19) Leukocytosis Status: Acute (20) Multifocal pneumonia Status: Acute (21) Normocytic anemia Status: Acute (22) Respiratory failure Status: Acute (23) Sepsis Status: Acute (24) Severe sepsis Status: Acute Allergies: Coded Allergies: No Known Allergies (Verified Allergy, Unknown, 08/01/18) Substance Abuse Substance abuse history: No Prior substance abuse treatmen: No Social History Marital status: other DPA/Conservatorship: No Psychiatric Objective Eval Review of Systems: Review of Systems: Not Applicable Physical Examination: Physical Examination: Not Applicable Energy: Other Interest: Other Mental Status Examination: Eye Contact: Poor Behavior: Guarded, Agitated Speech: Disorganized Mood: Irritable Attention Span: Distractible Laboratory Results Laboratory Tests Test 10/08/18 12:11 10/08/18 13:42 10/08/18 17:47 10/08/18 18:55 Bedside Glucose 186 mg/dL 139 mg/dL Urine 0.0 % Eosinophils % Urine Random 30.58 mg/dl Creatinine Urine Random 42 mmol/L Sodium Urine 1.47 RATIO Protein/Creatini ne Ratio Urine Total 45.0 mg/dl Protein Absolute 0.086 X10^6 Reticulocyte Count Percent 3.1 % Reticulocyte Count Prothrombin Time 13.4 Sec Prothrombin Time 1.0 Ratio INR 1.01 International Normalized Ratio Ferritin 62.5 ng/ml Carcinoembryonic 24.1 ng/ml Antigen Vitamin B12 > 1000 pg/ml Level Folate > 20.0 ng/ml Test 10/08/18 22:06 10/09/18 08:09 10/09/18 10:12 10/09/18 11:56 Bedside Glucose 152 mg/dL 164 mg/dL 149 mg/dL White Blood 10.6 10^3/ul Count Red Blood Count 2.70 10^6/ul Hemoglobin 6.9 g/dl Hematocrit 21.5 % Mean Corpuscular 79.6 fl Volume Mean Corpuscular 25.6 pg Hemoglobin Mean Corpuscular 32.1 g/dl Hemoglobin Bridgett nt Red Cell 16.8 % Distribution Width Platelet Count 300 10^3/UL Mean Platelet 10.0 fl Volume Immature 0.800 % Granulocytes % Neutrophils % % Segmented 84 % Neutrophils % (Manual) Lymphocytes % % Lymphocytes % 12 % (Manual) Monocytes % % Monocytes % 3 % (Manual) Eosinophils % % Eosinophils % 1 % (Manual) Basophils % % Nucleated Red 0.0 /100WBC Blood Cells % Immature 0.090 10^3/ul Granulocytes # Neutrophils # 10^3/ul Lymphocytes 1.2 10^3/ul (Manual) Lymphocytes # 10^3/ul Monocytes # 10^3/ul Monocytes # 0.3 10^3/ul (Manual) Eosinophils # 10^3/ul Basophils # 10^3/ul Nucleated Red 10^3/ul Blood Cells # Platelet NORMAL Estimate Polychromasia 1+ Poikilocytosis 1+ Anisocytosis 2+ Microcytosis 2+ Ovalocytes 1+ Sodium Level 138 mmol/L Potassium Level 4.5 mmol/L Chloride Level 108 mmol/L Carbon Dioxide 19 mmol/L Level Anion Gap 11 Blood Urea 59 mg/dl Nitrogen Creatinine 1.46 mg/dl Est Glomerular mL/min Filtrat Rate mL/min Glucose Level 146 mg/dl Calcium Level 8.7 mg/dl Total Bilirubin 0.3 mg/dl Direct Bilirubin 0.00 mg/dl Indirect 0.3 mg/dl Bilirubin Aspartate Amino 132 IU/L Transf (AST/SGOT ) Alanine 337 IU/L Aminotransferase (ALT/SGPT) Alkaline 91 IU/L Phosphatase Total Protein 5.0 g/dl Albumin 2.5 g/dl Globulin 2.50 g/dl Albumin/Globulin 1.00 Ratio Test 10/09/18 12:08 10/09/18 16:57 10/09/18 20:46 10/10/18 01:55 Lab Scanned REFERENCE Report LAB [id number] Bedside Glucose 116 mg/dL 105 mg/dL 154 mg/dL Test 10/10/18 06:25 10/10/18 07:46 Lab Scanned BLOOD TRANSFUSIO Report N Bedside Glucose 211 mg/dL Assessment and Plan Assessment/Diagnosis Diagnosis Delirium rule out cognitive disorder Recommendation/Plan Medication Management Continue Seroquel 25 mg twice a day Multiple antipsychotics: No Discharge Disposition: Other (Other) Legal Status: Voluntary (Does not meet criteria for 5150 hold) DAYLIN ROBLERO NP Oct 10, 2018 10:03
[2018-10-10] MEDS: DEXTROSE 5%-0.45% NACL 1,000 ML IV SCH ×2 (11:08→22:40)
[2018-10-10 11:36] VITALS: BP 137/60; PULSE 60; RESP 18
--- NOTE | 2018-10-10 11:43 | PN ---
Date/Time of Note Date/Time of Note DATE: 10/10/18 TIME: 11:35 Assessment/Plan VTE Prophylaxis Risk score (from Ns)>0 risk: 8 SCD applied (from Ns): Yes SCD contraindicated: other Pharmacological prophylaxis: other Pharm contraindication: other Lines/Catheters IV [facility]from [facility] Saline Lock Assessment/Plan Assessment/Plan -Anemia, history of emesis at home and loss of appetite. - Dr. Winkler is following in gastroenterology consultation. - SP 1 unit PRBC yesterday- pending CBC TODAY - Delerium - SP psych consult - Decreased po intake - per dietary; per family when her HGb drops; her appetite decreases and gets better with hgb improves -Sepsis secondary to urinary tract infection and possible early pneumonia. Continue antibiotics per ID. Dr. Elias is following in infection disease consultation. -Gram-negative rods UTI. -Hyperkalemia, resolved, status post treatment -Acute kidney injury, continue gentle hydration, monitor BUN and creatinine. Dr. Arreaga is following in nephrology consultation. -Hypertension -Systolic congestive heart failure. Dr. Chávez is following in cardiology consultation. -Cardiomyopathy with ejection fraction 50% -Atrial fibrillation, patient did not tolerate anticoagulation in the past due to bleeding and anemia, patient was on aspirin which is currently held due significant drop in hemoglobin. -Coronary artery disease, status post CABG -Diabetes mellitus type 2, continue Lantus and pre-meal NovoLog. -History of endocarditis, status post treatment -Sacral, right foot, and left garcia wounds. Continue current care per wound care recommendations. -History of left femoral artery thrombectomy, left garcia open wound. Dr. Dawson is asked to see patient in vascular surgery consultation for evalua tion of left garcia wound. Further recommendations based on clinical course. Plan of care discussed with Dr. Mi. Result Diagram: 10/09/18 1012 10/09/18 1012 Results 24hrs Laboratory Tests Test 10/09/18 11:56 10/09/18 12:08 10/09/18 16:57 10/09/18 20:46 Bedside Glucose 149 116 105 Lab Scanned REFERENCE LAB Report Test 10/10/18 01:55 10/10/18 06:25 10/10/18 07:46 Bedside Glucose 154 211 Lab Scanned BLOOD TRANSFUSIO Report N Subjective 24 Hr Interval Summary Free Text/Dictation -NAD - Patient is awake, alert, confused - however demented, screaming - SP psychiatric consult. - Hemoglobin is 6.9 as of yesterday- sp transfusion of 1 units of packed red blood cells.pending CBC today Exam/Review of Systems Exam Vitals Vital Signs Date Temp Pulse Resp B/P (MAP) Pulse Ox O2 O2 Flow FiO2 Time Delivery Rate 10/10/18 97.9 60 17 124/61 94 07:10 (82) 10/08/18 Room Air 23:58 Intake and Output 10/09/18 10/09/18 10/10/18 1515:00 23:00 07:00 IntakeIntake Total 100 ml BalanceBalance 100 ml Constitutional: alert, well developed Psych: nl mood/affect Eyes: nl lids, nl sclera ENMT: nl external ears & nose Neck: non-tender Cardiovascular: nl pulses, other (S1S2) Gastrointestinal: soft, non-tender Musculoskeletal: muscle weakness Extremities: normal pulses Neurological: confused Lymph: nontender Results Results 24hrs Laboratory Tests Test 10/09/18 11:56 10/09/18 12:08 10/09/18 16:57 10/09/18 20:46 Bedside Glucose 149 116 105 Lab Scanned REFERENCE LAB Report Test 10/10/18 01:55 10/10/18 06:25 10/10/18 07:46 Bedside Glucose 154 211 Lab Scanned BLOOD TRANSFUSIO Report N Medications Medication Current Medications Allopurinol (Zyloprim) 100 mg BID PO Last administered on 10/10/18at 08:59; Admin Dose 100 MG; Start 10/07/18 at 21:00 Amiodarone HCl (Cordarone) 200 mg BID PO Last administered on 10/10/18at 09:00; Admin Dose 200 MG; Start 10/07/18 at 21:00 Aspirin (Halfprin) 81 mg DAILY PO Last administered on 10/08/18at 08:14; Admin Dose 81 MG; Start 10/08/18 at 09:00; Status Hold Carvedilol (Coreg) 3.125 mg BID PO Last administered on 10/10/18at 09:00; Admin Dose 3.125 MG; Start 10/07/18 at 21:00 Docusate Sodium (Colace) 100 mg TID PO Last administered on 10/08/18at 22:12; Admin Dose 100 MG; Start 10/07/18 at 21:00 Pantoprazole (Protonix Tab) 40 mg DAILY@06 PO Last administered on 10/08/18at 06:43; Admin Dose 40 MG; Start 10/08/18 at 06:00 Ferrous Sulfate (Ferrous Sulfate (Ec)) 325 mg DAILY PO Last administered on 10/10/18at 09:00; Admin Dose 325 MG; Start 10/08/18 at 09:00 IV Flush (NS 3 ml) 3 ml PER PROTOCOL IV ; Start 10/07/18 at 12:30 Ondansetron HCl (Zofran Inj) 4 mg Q6H PRN IV NAUSEA/VOMITING; Start 10/07/18 at 12:30 Acetaminophen (Tylenol Tab) 650 mg Q6H PRN PO .PAIN 1-3 OR TEMP; Start 10/07/18 at 12:30 Acetaminophen/ Hydrocodone Bitart ([place] (5/325)) 1 tab Q6H PRN PO .PAIN 4-6 Last administered on 10/08/18at 09:41; Admin Dose 1 TAB; Start 10/07/18 at 12:30 Clonidine (Catapres) 0.1 mg BID PO Last administered on 10/10/18at 09:00; Admin Dose 0.1 MG; Start 10/07/18 at 22:00 Diagnostic Test (Pha) (Accu-Chek) 1 ea 02 XX Last administered on 10/10/18at 02:05; Admin Dose 1 EA; Start 10/08/18 at 02:00 Insulin Aspart (Novolog Insulin Pen) NOVOLOG *MILD* ALGORITHM WITH MEALS BEDTIME SC Last administered on 10/10/18at 07:51; Admin Dose 2 UNIT; Start 10/07/18 at 21:00 Miscellaneous Information 1 ea NOTE XX ; Start 10/07/18 at 21:00 Glucose (Glutose) 15 gm Q15M PRN PO DECREASED GLUCOSE; Start 10/07/18 at 21:00 Glucose (Glutose) 22.5 gm Q15M PRN PO DECREASED GLUCOSE; Start 10/07/18 at 21:00 Dextrose (D50w Syringe) 25 ml Q15M PRN IV DECREASED GLUCOSE; Start 10/07/18 at 21:00 Dextrose (D50w Syringe) 50 ml Q15M PRN IV DECREASED GLUCOSE; Start 10/07/18 at 21:00 Glucagon (Glucagen) 1 mg Q15M PRN IM DECREASED GLUCOSE; Start 10/07/18 at 21:00 Glucose (Glutose) 15 gm Q15M PRN BUCCAL DECREASED GLUCOSE; Start 10/07/18 at 21:00 Ferric Sodium Gluconate Complex 125 mg/Sodium Chloride 110 ml @ 110 mls/hr DAILY@1300 IVPB Last administered on 10/09/18at 14:13; Admin Dose 110 MLS/HR; Start 10/08/18 at 13:00; Stop 10/12/18 at 13:59 Quetiapine Fumarate (Seroquel) 25 mg BID PO Last administered on 10/10/18at 09:00; Admin Dose 25 MG; Start 10/08/18 at 22:00 Meropenem/Sodium Chloride 50 ml @ 100 mls/hr Q12 IVPB Last administered on 10/10/18at 09:22; Admin Dose 100 MLS/HR; Start 10/09/18 at 12:00 Collagenase (Santyl) 1 applic DAILY TOP Last administered on 10/10/18at 06:06; Admin Dose 1 APPLIC; Start 10/09/18 at 19:00 Dextrose/Sodium Chloride 1,000 ml @ 75 mls/hr [id number] IV Last administered on 10/10/18 11:08; Admin Dose 75 MLS/HR; Start 10/09/18 at 20:00 ELIZA HECTOR Oct 10, 2018 11:43
--- NOTE | 2018-10-10 12:03 | CONS ---
Assessment/Plan Assessment/Plan Assessment/Plan (Daily) 1. acute hyperkalemia due to BRANDON 2 .acute kidney injury on CKD III due to ATN from sepsis + prerenal azotemia 3. Sepsis due to UTI and PNA 4. acute UTI 5. H/o partial nephrectomy possibly due to RCC as per family 6. H/o CAD s/p CABG , Cardiomyopathy with EF 50%, Chronic Systolic HF, 7. H/O HTN 8. h/o DM II 9. Paroxysmal atrial fibrillation 10. acute encephalpahty possibly due to uremic and metabolic encephalopathy 11. 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 H/o HTN 13. H/o DM II 14. h/O paroxysmal atrial fibrillation Plan: IV abx Cefepime and IV vancomycin for sepsis, Renally dose all abx and monitor electrolytes BUN/Cr improved to 42/1.23, other electrolytes stable , on IV iron for iron deficiency anemia IVF D51/2 NS at 75 cc/hr Amiodarone for rate control, Renal US showed No hydronephrosis. No nephrolithiasis.- 3.1 x 2 x 2.1 centimeter hypoechoic lesion arising from the lower pole of the left kidney. Follow-up to exclude neoplasm. There is echogenic material layering within the dependent portion of the bladde r. Follow up to exclude infectious, inflammatory, or neoplastic process. Atrophic left kidney.- will MRI abdomen and pelvis without contrast to better assess for Left kidney lesion will follow up Consultation Date/Type/Reason Admit Date/Time Oct 07, 2018 at 03:37 Initial Consult Date 10/07/18 Type of Consult NEPHROLOGY Requesting Provider: JAGJIT MONTES MD Date/Time of Note DATE: 10/10/18 TIME: 12:03 Exam/Review of Systems Exam Vitals Vital Signs Date Temp Pulse Resp B/P (MAP) Pulse Ox O2 O2 Flow FiO2 Time Delivery Rate 10/10/18 97.6 60 18 137/60 97 11:36 (85) 10/08/18 Room Air 23:58 Intake and Output 10/09/18 10/09/18 10/10/18 1515:00 23:00 07:00 IntakeIntake Total 100 ml BalanceBalance 100 ml Exam Constitutional: alert, oriented Head: normocephalic Neck: supple Respiratory: diminished breath sounds Cardiovascular: irregular rhythm Gastrointestinal: soft, non-tender Genitourinary - Male: other (Incontinent of urine) Musculoskeletal: nl extremities to inspection Extremities: normal pulses Neurological: nl mental status Skin: other (Right foot wound with dressing) Results Result Diagram: 10/10/18 1106 10/10/18 1106 Results 24hrs Laboratory Tests Test 10/09/18 12:08 10/09/18 16:57 10/09/18 20:46 10/10/18 01:55 Lab Scanned REFERENCE LAB Report Bedside Glucose 116 105 154 Test 10/10/18 06:25 10/10/18 07:46 10/10/18 11:06 Lab Scanned BLOOD TRANSFUSIO Report N Bedside Glucose 211 White Blood Count 10.3 Red Blood Count 3.42 #L Hemoglobin 9.0 #L Hematocrit 27.6 #L Mean Corpuscular 80.7 L Volume Mean Corpuscular 26.3 L Hemoglobin Mean Corpuscular 32.6 Hemoglobin Concen t Red Cell 16.5 H Distribution Width Platelet Count 303 Mean Platelet 10.1 Volume Immature 1.000 H Granulocytes % Neutrophils % 77.2 H Lymphocytes % 11.8 L Monocytes % 8.9 Eosinophils % 0.9 Basophils % 0.2 Nucleated Red 0.2 H Blood Cells % Immature 0.100 H Granulocytes # Neutrophils # 8.0 H Lymphocytes # 1.2 Monocytes # 0.9 Eosinophils # 0.1 Basophils # 0.0 Nucleated Red 0.0 Blood Cells # Sodium Level 137 Potassium Level 4.0 Chloride Level 108 Carbon Dioxide 23 Level Anion Gap 6 Blood Urea 42 #H Nitrogen Creatinine 1.23 H Est Glomerular Filtrat Rate mL/min Glucose Level 178 Calcium Level 9.1 Medications Medication Current Medications Allopurinol (Zyloprim) 100 mg BID PO Last administered on 10/10/18at 08:59; Admin Dose 100 MG; Start 10/07/18 at 21:00 Amiodarone HCl (Cordarone) 200 mg BID PO Last administered on 10/10/18 09:00; Admin Dose 200 MG; Start 10/07/18 at 21:00 Aspirin (Halfprin) 81 mg DAILY PO Last administered on 10/08/18at 08:14; Admin Dose 81 MG; Start 10/08/18 at 09:00; Status Hold Carvedilol (Coreg) 3.125 mg BID PO Last administered on 10/10/18at 09:00; Admin Dose 3.125 MG; Start 10/07/18 at 21:00 Docusate Sodium (Colace) 100 mg TID PO Last administered on 10/08/18 22:12; Admin Dose 100 MG; Start 10/07/18 at 21:00 Pantoprazole (Protonix Tab) 40 mg DAILY@06 PO Last administered on 10/08/18 06:43; Admin Dose 40 MG; Start 10/08/18 at 06:00 Ferrous Sulfate (Ferrous Sulfate (Ec)) 325 mg DAILY PO Last administered on 10/10/18 09:00; Admin Dose 325 MG; Start 10/08/18 at 09:00 IV Flush (NS 3 ml) 3 ml PER PROTOCOL IV ; Start 10/07/18 at 12:30 Ondansetron HCl (Zofran Inj) 4 mg Q6H PRN IV NAUSEA/VOMITING; Start 10/07/18 at 12:30 Acetaminophen (Tylenol Tab) 650 mg Q6H PRN PO .PAIN 1-3 OR TEMP; Start 10/07/18 at 12:30 Acetaminophen/ Hydrocodone Bitart ([place] (5/325)) 1 tab Q6H PRN PO .PAIN 4-6 Last administered on 10/08/18 09:41; Admin Dose 1 TAB; Start 10/07/18 at 12:30 Clonidine (Catapres) 0.1 mg BID PO Last administered on 10/10/18 09:00; Admin Dose 0.1 MG; Start 10/07/18 at 22:00 Diagnostic Test (Pha) (Accu-Chek) 1 ea 02 XX Last administered on 10/10/18at 02:05; Admin Dose 1 EA; Start 10/08/18 at 02:00 Insulin Aspart (Novolog Insulin Pen) NOVOLOG *MILD* ALGORITHM WITH MEALS BEDTIME SC Last administered on 10/10/18 07:51; Admin Dose 2 UNIT; Start 10/07/18 at 21:00 Miscellaneous Information 1 ea NOTE XX ; Start 10/07/18 at 21:00 Glucose (Glutose) 15 gm Q15M PRN PO DECREASED GLUCOSE; Start 10/07/18 at 21:00 Glucose (Glutose) 22.5 gm Q15M PRN PO DECREASED GLUCOSE; Start 10/07/18 at 21:00 Dextrose (D50w Syringe) 25 ml Q15M PRN IV DECREASED GLUCOSE; Start 10/07/18 at 21:00 Dextrose (D50w Syringe) 50 ml Q15M PRN IV DECREASED GLUCOSE; Start 10/07/18 at 21:00 Glucagon (Glucagen) 1 mg Q15M PRN IM DECREASED GLUCOSE; Start 10/07/18 at 21:00 Glucose (Glutose) 15 gm Q15M PRN BUCCAL DECREASED GLUCOSE; Start 10/07/18 at 21:00 Ferric Sodium Gluconate Complex 125 mg/Sodium Chloride 110 ml @ 110 mls/hr DA CHYNA@1300 IVPB Last administered on 10/09/18at 14:13; Admin Dose 110 MLS/HR; Start 10/08/18 at 13:00; Stop 10/12/18 at 13:59 Quetiapine Fumarate (Seroquel) 25 mg BID PO Last administered on 10/10/18at 09:00; Admin Dose 25 MG; Start 10/08/18 at 22:00 Meropenem/Sodium Chloride 50 ml @ 100 mls/hr Q12 IVPB Last administered on 10/10/18at 09:22; Admin Dose 100 MLS/HR; Start 10/09/18 at 12:00 Collagenase (Santyl) 1 applic DAILY TOP Last administered on 10/10/18at 06:06; Admin Dose 1 APPLIC; Start 10/09/18 at 19:00 Dextrose/Sodium Chloride 1,000 ml @ 75 mls/hr [id number] IV Last administered on 10/10/18at 11:08; Admin Dose 75 MLS/HR; Start 10/09/18 at 20:00 EVA TREJO MD Oct 10, 2018 12:03
[2018-10-10] MEDS: SOD FERRIC GLUC COMPLX 125 MG in SOD CHLORIDE 0.9% 100 ML IVPB SCH (12:06)
--- NOTE | 2018-10-10 12:22 | CONS ---
Assessment/Plan Assessment/Plan Hospital Course (Demo Recall) No acute evenyts, all noted, no fevers Microbiology: Blood cultures negative, urine culture + MDR Kleb Chest x-ray on admission revealed no evidence of CHF or pneumonia. Renal ultrasound revealed no hydronephrosis and no nephrolithiasis. 3.1 x 2 x 2.1 cm hypoechoic lesion left pole of the kidney questionable neoplasm Antimicrobials: Merrem Physical examination: Well-developed chronically ill-appearing wasted elderly woman who is in no distress. Head atraumatic normocephalic neck is supple chest rise symmetrical breath sounds diminished bases. Heart: S1-S2. Abdomen soft bowel sounds present. Extremities with dependent bilateral lower extremities edema Assessment: 1. Sepsis, present on admission 2. Gram-negative melvi UTI 3. Acute on chronic anemia 4. Coronary artery disease with a history of CABG 5. Echo dense structure seen by tricuspid valve, right atrium and IVC-t hrombus, vegetation versus tumor=== completed 6 weeks IV antibiotics> 6. History of renal cell carcinoma status post nephrectomy 7. Diabetes 8. Hypertension Plan: Clinically unchanged, abx US noted, continue abx, supportive care, GI/renal/card rec-s Consultation Date/Type/Reason Admit Date/Time Oct 07, 2018 at 03:37 Initial Consult Date 10/07/18 Type of Consult id Requesting Provider: JAGJIT MONTES MD Date/Time of Note DATE: 10/10/18 TIME: 12:21 Exam/Review of Systems Exam Vitals Vital Signs Date Temp Pulse Resp B/P (MAP) Pulse Ox O2 O2 Flow FiO2 Time Delivery Rate 10/10/18 97.6 60 18 137/60 97 11:36 (85) 10/08/18 Room Air 23:58 Intake and Output 10/09/18 10/09/18 10/10/18 1515:00 23:00 07:00 IntakeIntake Total 100 ml BalanceBalance 100 ml Results Result Diagram: 10/10/18 1106 10/10/18 1106 Results 24hrs Laboratory Tests Test 10/09/18 16:57 10/09/18 20:46 10/10/18 01:55 10/10/18 06:25 Bedside Glucose 116 105 154 Lab Scanned BLOOD TRANSFUSIO Report N Test 10/10/18 07:46 10/10/18 11:06 10/10/18 12:05 Bedside Glucose 211 204 White Blood Count 10.3 Red Blood Count 3.42 #L Hemoglobin 9.0 #L Hematocrit 27.6 #L Mean Corpuscular 80.7 L Volume Mean Corpuscular 26.3 L Hemoglobin Mean Corpuscular 32.6 Hemoglobin Concen t Red Cell 16.5 H Distribution Width Platelet Count 303 Mean Platelet 10.1 Volume Immature 1.000 H Granulocytes % Neutrophils % 77.2 H Lymphocytes % 11.8 L Monocytes % 8.9 Eosinophils % 0.9 Basophils % 0.2 Nucleated Red 0.2 H Blood Cells % Immature 0.100 H Granulocytes # Neutrophils # 8.0 H Lymphocytes # 1.2 Monocytes # 0.9 Eosinophils # 0.1 Basophils # 0.0 Nucleated Red 0.0 Blood Cells # Sodium Level 137 Potassium Level 4.0 Chloride Level 108 Carbon Dioxide 23 Level Anion Gap 6 Blood Urea 42 #H Nitrogen Creatinine 1.23 H Est Glomerular Filtrat Rate mL/min Glucose Level 178 Calcium Level 9.1 Medications Medication Current Medications Allopurinol (Zyloprim) 100 mg BID PO Last administered on 10/10/18 08:59; Admin Dose 100 MG; Start 10/07/18 at 21:00 Amiodarone HCl (Cordarone) 200 mg BID PO Last administered on 10/10/18 09:00; Admin Dose 200 MG; Start 10/07/18 at 21:00 Aspirin (Halfprin) 81 mg DAILY PO Last administered on 10/08/18 08:14; Admin Dose 81 MG; Start 10/08/18 at 09:00; Status Hold Carvedilol (Coreg) 3.125 mg BID PO Last administered on 10/10/18 09:00; Admin Dose 3.125 MG; Start 10/07/18 at 21:00 Docusate Sodium (Colace) 100 mg TID PO Last administered on 10/08/18 22:12; Admin Dose 100 MG; Start 10/07/18 at 21:00 Pantoprazole (Protonix Tab) 40 mg DAILY@06 PO Last administered on 10/08/18 06:43; Admin Dose 40 MG; Start 10/08/18 at 06:00 Ferrous Sulfate (Ferrous Sulfate (Ec)) 325 mg DAILY PO Last administered on 10/10/18 09:00; Admin Dose 325 MG; Start 10/08/18 at 09:00 IV Flush (NS 3 ml) 3 ml PER PROTOCOL IV ; Start 10/07/18 at 12:30 Ondansetron HCl (Zofran Inj) 4 mg Q6H PRN IV NAUSEA/VOMITING; Start 10/07/18 at 12:30 Acetaminophen (Tylenol Tab) 650 mg Q6H PRN PO .PAIN 1-3 OR TEMP; Start 10/07/18 at 12:30 Acetaminophen/ Hydrocodone Bitart ([place] (5/325)) 1 tab Q6H PRN PO .PAIN 4-6 Last administered on 10/08/18at 09:41; Admin Dose 1 TAB; Start 10/07/18 at 12:30 Clonidine (Catapres) 0.1 mg BID PO Last administered on 10/10/18at 09:00; Admin Dose 0.1 MG; Start 10/07/18 at 22:00 Diagnostic Test (Pha) (Accu-Chek) 1 ea 02 XX Last administered on 10/10/18at 02:05; Admin Dose 1 EA; Start 10/08/18 at 02:00 Insulin Aspart (Novolog Insulin Pen) NOVOLOG *MILD* ALGORITHM WITH MEALS BEDTIME SC Last administered on 10/10/18at 12:14; Admin Dose 2 UNIT; Start 10/07/18 at 21:00 Miscellaneous Information 1 ea NOTE XX ; Start 10/07/18 at 21:00 Glucose (Glutose) 15 gm Q15M PRN PO DECREASED GLUCOSE; Start 10/07/18 at 21:00 Glucose (Glutose) 22.5 gm Q15M PRN PO DECREASED GLUCOSE; Start 10/07/18 at 21:00 Dextrose (D50w Syringe) 25 ml Q15M PRN IV DECREASED GLUCOSE; Start 10/07/18 at 21:00 Dextrose (D50w Syringe) 50 ml Q15M PRN IV DECREASED GLUCOSE; Start 10/07/18 at 21:00 Glucagon (Glucagen) 1 mg Q15M PRN IM DECREASED GLUCOSE; Start 10/07/18 at 21:00 Glucose (Glutose) 15 gm Q15M PRN BUCCAL DECREASED GLUCOSE; Start 10/07/18 at 21:00 Ferric Sodium Gluconate Complex 125 mg/Sodium Chloride 110 ml @ 110 mls/hr DAILY@1300 IVPB Last administered on 10/10/18at 12:06; Admin Dose 110 MLS/HR; Start 10/08/18 at 13:00; Stop 10/12/18 at 13:59 Quetiapine Fumarate (Seroquel) 25 mg BID PO Last administered on 10/10/18 09:00; Admin Dose 25 MG; Start 10/08/18 at 22:00 Meropenem/Sodium Chloride 50 ml @ 100 mls/hr Q12 IVPB Last administered on 10/10/18 09:22; Admin Dose 100 MLS/HR; Start 10/09/18 at 12:00 Collagenase (Santyl) 1 applic DAILY TOP Last administered on 10/10/18 06:06; Admin Dose 1 APPLIC; Start 10/09/18 at 19:00 Dextrose/Sodium Chloride 1,000 ml @ 75 mls/hr [id number] IV Last administered on 10/10/18 11:08; Admin Dose 75 MLS/HR; Start 10/09/18 at 20:00 BARBARA ORDAZ NP Oct 10, 2018 12:22
--- NOTE | 2018-10-10 12:46 | CONS ---
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 Echo dense structure seen by tricuspid valve, right atrium and IVC-thrombus, vegetation versus tumor CAD with history of CABG History of renal carcinoma status post nephrectomy approximately 8 years ago History of hypertension Diabetes Paroxysmal atrial fibrillation, intolerant to anticoagulation Patient presents with acute kidney injury, hyperkalemia and encephalopathy Renal function continues to improve Hold all nephro toxic medications Hemoglobin better after blood transfusion Blood pressure trend improving, continue antihypertensives with holding parameters Consultation Date/Type/Reason Admit Date/Time Oct 07, 2018 at 03:37 Initial Consult Date 10/07/18 Type of Consult Cardiology Requesting Provider: JAGJIT MONTES MD Date/Time of Note DATE: 10/10/18 TIME: 12:44 24 HR Interval Summary Free Text/Dictation Patient seen and examined Exam/Review of Systems Vital Signs Vitals Vital Signs Date Temp Pulse Resp B/P (MAP) Pulse Ox O2 O2 Flow FiO2 Time Delivery Rate 10/10/18 97.6 60 18 137/60 97 11:36 (85) 10/08/18 Room Air 23:58 Intake and Output 10/09/18 10/09/18 10/10/18 1515:00 23:00 07:00 IntakeIntake Total 100 ml BalanceBalance 100 ml Exam Exam Sleeping, no apparent distress Head: normocephalic Respiratory: other (Coarse breath sounds bilaterally, no wheezing) Cardiovascular: regular rate and rhythm (S1-S2 heard) Gastrointestinal: soft, non-tender, bowel sounds Extremities: edema Labs Result Diagram: 10/10/18 1106 10/10/18 1106 Results 24hrs Laboratory Tests Test 10/09/18 16:57 10/09/18 20:46 10/10/18 01:55 10/10/18 06:25 Bedside Glucose 116 105 154 Lab Scanned BLOOD TRANSFUSIO Report N Test 10/10/18 07:46 10/10/18 11:06 10/10/18 12:05 Bedside Glucose 211 204 White Blood Count 10.3 Red Blood Count 3.42 #L Hemoglobin 9.0 #L Hematocrit 27.6 #L Mean Corpuscular 80.7 L Volume Mean Corpuscular 26.3 L Hemoglobin Mean Corpuscular 32.6 Hemoglobin Concen t Red Cell 16.5 H Distribution Width Platelet Count 303 Mean Platelet 10.1 Volume Immature 1.000 H Granulocytes % Neutrophils % 77.2 H Lymphocytes % 11.8 L Monocytes % 8.9 Eosinophils % 0.9 Basophils % 0.2 Nucleated Red 0.2 H Blood Cells % Immature 0.100 H Granulocytes # Neutrophils # 8.0 H Lymphocytes # 1.2 Monocytes # 0.9 Eosinophils # 0.1 Basophils # 0.0 Nucleated Red 0.0 Blood Cells # Sodium Level 137 Potassium Level 4.0 Chloride Level 108 Carbon Dioxide 23 Level Anion Gap 6 Blood Urea 42 #H Nitrogen Creatinine 1.23 H Est Glomerular Filtrat Rate mL/min Glucose Level 178 Calcium Level 9.1 Medications Medications Current Medications Allopurinol (Zyloprim) 100 mg BID PO Last administered on 10/10/18 08:59; Admin Dose 100 MG; Start 10/07/18 at 21:00 Amiodarone HCl (Cordarone) 200 mg BID PO Last administered on 10/10/18 09:00; Admin Dose 200 MG; Start 10/07/18 at 21:00 Aspirin (Halfprin) 81 mg DAILY PO Last administered on 10/08/18 08:14; Admin Dose 81 MG; Start 10/08/18 at 09:00; Status Hold Carvedilol (Coreg) 3.125 mg BID PO Last administered on 10/10/18 09:00; Admin Dose 3.125 MG; Start 10/07/18 at 21:00 Docusate Sodium (Colace) 100 mg TID PO Last administered on 10/08/18at 22:12; Admin Dose 100 MG; Start 10/07/18 at 21:00 Pantoprazole (Protonix Tab) 40 mg DAILY@06 PO Last administered on 10/08/18at 06:43; Admin Dose 40 MG; Start 10/08/18 at 06:00 Ferrous Sulfate (Ferrous Sulfate (Ec)) 325 mg DAILY PO Last administered on 10/10/18 09:00; Admin Dose 325 MG; Start 10/08/18 at 09:00 IV Flush (NS 3 ml) 3 ml PER PROTOCOL IV ; Start 10/07/18 at 12:30 Ondansetron HCl (Zofran Inj) 4 mg Q6H PRN IV NAUSEA/VOMITING; Start 10/07/18 at 12:30 Acetaminophen (Tylenol Tab) 650 mg Q6H PRN PO .PAIN 1-3 OR TEMP; Start 10/07/18 at 12:30 Acetaminophen/ Hydrocodone Bitart ([place] (5/325)) 1 tab Q6H PRN PO .PAIN 4-6 Last administered on 10/08/18at 09:41; Admin Dose 1 TAB; Start 10/07/18 at 12:30 Clonidine (Catapres) 0.1 mg BID PO Last administered on 10/10/18at 09:00; Admin Dose 0.1 MG; Start 10/07/18 at 22:00 Diagnostic Test (Pha) (Accu-Chek) 1 ea 02 XX Last administered on 10/10/18at 02: 05; Admin Dose 1 EA; Start 10/08/18 at 02:00 Insulin Aspart (Novolog Insulin Pen) NOVOLOG *MILD* ALGORITHM WITH MEALS BEDTIME SC Last administered on 10/10/18at 12:14; Admin Dose 2 UNIT; Start 10/07/18 at 21:00 Miscellaneous Information 1 ea NOTE XX ; Start 10/07/18 at 21:00 Glucose (Glutose) 15 gm Q15M PRN PO DECREASED GLUCOSE; Start 10/07/18 at 21:00 Glucose (Glutose) 22.5 gm Q15M PRN PO DECREASED GLUCOSE; Start 10/07/18 at 21:00 Dextrose (D50w Syringe) 25 ml Q15M PRN IV DECREASED GLUCOSE; Start 10/07/18 at 21:00 Dextrose (D50w Syringe) 50 ml Q15M PRN IV DECREASED GLUCOSE; Start 10/07/18 at 2 1:00 Glucagon (Glucagen) 1 mg Q15M PRN IM DECREASED GLUCOSE; Start 10/07/18 at 21:00 Glucose (Glutose) 15 gm Q15M PRN BUCCAL DECREASED GLUCOSE; Start 10/07/18 at 21:00 Ferric Sodium Gluconate Complex 125 mg/Sodium Chloride 110 ml @ 110 mls/hr DAILY@1300 IVPB Last administered on 10/10/18at 12:06; Admin Dose 110 MLS/HR; Start 10/08/18 at 13:00; Stop 10/12/18 at 13:59 Quetiapine Fumarate (Seroquel) 25 mg BID PO Last administered on 10/10/18at 09:00; Admin Dose 25 MG; Start 10/08/18 at 22:00 Meropenem/Sodium Chloride 50 ml @ 100 mls/hr Q12 IVPB Last administered on 10/10/18at 09:22; Admin Dose 100 MLS/HR; Start 10/09/18 at 12:00 Collagenase (Santyl) 1 applic DAILY TOP Last administered on 10/10/18 06:06; Admin Dose 1 APPLIC; Start 10/09/18 at 19:00 Dextrose/Sodium Chloride 1,000 ml @ 75 mls/hr [id number] IV Last administered on 10/10/18 11:08; Admin Dose 75 MLS/HR; Start 10/09/18 at 20:00 Alex Chávez DO Oct 10, 2018 12:46
[2018-10-10] MEDS ORDERED: SOD FERRIC GLUC COMPLX 125 MG in SOD CHLORIDE 0.9% 100 ML IVPB SCH (15:00)
[2018-10-10 15:28] VITALS: BP 126/58; PULSE 62; RESP 18
--- NOTE | 2018-10-10 16:17 | CONS ---
Assessment/Plan Assessment/Plan Assessment/Plan (Daily) 82 yo female with hl/o anemia No signs GI bleeding per RN. She had been agitated yesterday which was not baseline for her. She was started on seroquel. Lethargic. When I try to examine her she starts to scream. 1. Urinary tract infection. 2. Sepsis. 3. Status post coronary artery bypass graft. 4. Peripheral vascular disease. 5. Atrial fibrillation. 6. Status post surgery for renal cell carcinoma 8 years ago. 7. Diabetes. 8. Hypertension. 9. Severe anemia. -IV iron 10. Transaminitis secondary to steatohepatitis -liver us 11. Elevated CEA: 24.1 PLAN: stat AM labs Monitor LFTs US of liver, so steatohepatitis and prominent common hepatic duct IV iron Patient definitely needs both EGD and colonoscopy for loss of appetite, weight loss, anemia, high CEA 24. Discussed with the son and has agreed for the procedure. Consultation Date/Type/Reason Admit Date/Time Oct 07, 2018 at 03:37 Initial Consult Date 10/07/18 Requesting Provider: JAGJIT MONTES MD Date/Time of Note DATE: 10/10/18 TIME: 16:15 24 HR Interval Summary Free Text/Dictation Person patient screams on and off for no reason. As per the son she is oriented Exam/Review of Systems Exam Vitals Vital Signs Date Temp Pulse Resp B/P (MAP) Pulse Ox O2 O2 Flow FiO2 Time Delivery Rate 10/10/18 97.9 62 18 126/58 96 15:28 (80) 10/08/18 Room Air 23:58 Intake and Output 10/09/18 10/09/18 10/10/18 1515:00 23:00 07:00 IntakeIntake Total 100 ml BalanceBalance 100 ml Constitutional: alert, oriented, well developed Psych: no complaints, nl mood/affect Head: normocephalic, atraumatic Eyes: nl conjunctiva, EOMI, nl lids, nl sclera, PERRL ENMT: nl external ears & nose, nl lips & teeth, nl nasal mucosa & septum Neck: supple, non-tender Respiratory: clear to auscultation, normal air movement Cardiovascular: regular rate and rhythm, nl pulses Gastrointestinal: soft, nl liver, spleen, non-tender Musculoskeletal: nl extremities to inspection, nl gait and stance Extremities: normal pulses Neurological: [employer] II-XII intact, nl mental status, nl speech, nl strength Skin: nl turgor; No rash or lesions Lymph: nl lymph nodes Results Result Diagram: 10/10/18 1106 10/10/18 1106 Results 24hrs Laboratory Tests Test 10/09/18 16:57 10/09/18 20:46 10/10/18 01:55 10/10/18 06:25 Bedside Glucose 116 105 154 Lab Scanned BLOOD TRANSFUSIO Report N Test 10/10/18 07:46 10/10/18 11:06 10/10/18 12:05 Bedside Glucose 211 204 White Blood Count 10.3 Red Blood Count 3.42 #L Hemoglobin 9.0 #L Hematocrit 27.6 #L Mean Corpuscular 80.7 L Volume Mean Corpuscular 26.3 L Hemoglobin Mean Corpuscular 32.6 Hemoglobin Concen t Red Cell 16.5 H Distribution Width Platelet Count 303 Mean Platelet 10.1 Volume Immature 1.000 H Granulocytes % Neutrophils % 77.2 H Lymphocytes % 11.8 L Monocytes % 8.9 Eosinophils % 0.9 Basophils % 0.2 Nucleated Red 0.2 H Blood Cells % Immature 0.100 H Granulocytes # Neutrophils # 8.0 H Lymphocytes # 1.2 Monocytes # 0.9 Eosinophils # 0.1 Basophils # 0.0 Nucleated Red 0.0 Blood Cells # Sodium Level 137 Potassium Level 4.0 Chloride Level 108 Carbon Dioxide 23 Level Anion Gap 6 Blood Urea 42 #H Nitrogen Creatinine 1.23 H Est Glomerular Filtrat Rate mL/min Glucose Level 178 Calcium Level 9.1 Medications Medication Current Medications Allopurinol (Zyloprim) 100 mg BID PO Last administered on 10/10/18at 08:59; Admin Dose 100 MG; Start 10/07/18 at 21:00 Amiodarone HCl (Cordarone) 200 mg BID PO Last administered on 10/10/18at 09:00; Admin Dose 200 MG; Start 10/07/18 at 21:00 Aspirin (Halfprin) 81 mg DAILY PO Last administered on 10/08/18at 08:14; Admin Dose 81 MG; Start 10/08/18 at 09:00; Status Hold Carvedilol (Coreg) 3.125 mg BID PO Last administered on 10/10/18at 09:00; Admin Dose 3.125 MG; Start 10/07/18 at 21:00 Docusate Sodium (Colace) 100 mg TID PO Last administered on 10/08/18at 22:12; Admin Dose 100 MG; Start 10/07/18 at 21:00 Pantoprazole (Protonix Tab) 40 mg DAILY@06 PO Last administered on 10/08/18at 06:43; Admin Dose 40 MG; Start 10/08/18 at 06:00 Ferrous Sulfate (Ferrous Sulfate (Ec)) 325 mg DAILY PO Last administered on 10/10/18at 09:00; Admin Dose 325 MG; Start 10/08/18 at 09:00 IV Flush (NS 3 ml) 3 ml PER PROTOCOL IV ; Start 10/07/18 at 12:30 Ondansetron HCl (Zofran Inj) 4 mg Q6H PRN IV NAUSEA/VOMITING; Start 10/07/18 at 12:30 Acetaminophen (Tylenol Tab) 650 mg Q6H PRN PO .PAIN 1-3 OR TEMP; Start 10/07/18 at 12:30 Acetaminophen/ Hydrocodone Bitart ([place] (5/325)) 1 tab Q6H PRN PO .PAIN 4-6 Last administered on 10/08/18at 09:41; Admin Dose 1 TAB; Start 10/07/18 at 12:30 Clonidine (Catapres) 0.1 mg BID PO Last administered on 10/10/18at 09:00; Admin Dose 0.1 MG; Start 10/07/18 at 22:00 Diagnostic Test (Pha) (Accu-Chek) 1 ea 02 XX Last administered on 10/10/18at 02:05; Admin Dose 1 EA; Start 10/08/18 at 02:00 Insulin Aspart (Novolog Insulin Pen) NOVOLOG *MILD* ALGORITHM WITH MEALS BEDTIME SC Last administered on 10/10/18at 12:14; Admin Dose 2 UNIT; Start 10/07/18 at 21:00 Miscellaneous Information 1 ea NOTE XX ; Start 10/07/18 at 21:00 Glucose (Glutose) 15 gm Q15M PRN PO DECREASED GLUCOSE; Start 10/07/18 at 21:00 Glucose (Glutose) 22.5 gm Q15M PRN PO DECREASED GLUCOSE; Start 10/07/18 at 21:00 Dextrose (D50w Syringe) 25 ml Q15M PRN IV DECREASED GLUCOSE; Start 10/07/18 at 21:00 Dextrose (D50w Syringe) 50 ml Q15M PRN IV DECREASED GLUCOSE; Start 10/07/18 at 21:00 Glucagon (Glucagen) 1 mg Q15M PRN IM DECREASED GLUCOSE; Start 10/07/18 at 21:00 Glucose (Glutose) 15 gm Q15M PRN BUCCAL DECREASED GLUCOSE; Start 10/07/18 at 21:00 Ferric Sodium Gluconate Complex 125 mg/Sodium Chloride 110 ml @ 110 mls/hr DAILY@1300 IVPB Last administered on 10/10/18at 12:06; Admin Dose 110 MLS/HR; Start 10/08/18 at 13:00; Stop 10/12/18 at 13:59 Quetiapine Fumarate (Seroquel) 25 mg BID PO Last administered on 10/10/18at 09:00; Admin Dose 25 MG; Start 10/08/18 at 22:00 Meropenem/Sodium Chloride 50 ml @ 100 mls/hr Q12 IVPB Last administered on 10/10/18at 09:22; Admin Dose 100 MLS/HR; Start 10/09/18 at 12:00 Collagenase (Santyl) 1 applic DAILY TOP Last administered on 10/10/18at 06:06; Admin Dose 1 APPLIC; Start 10/09/18 at 19:00 Dextrose/Sodium Chloride 1,000 ml @ 75 mls/hr [id number] IV Last administered on 10/10/18at 11:08; Admin Dose 75 MLS/HR; Start 10/09/18 at 20:00 Multivitamins 10 ml/Dextrose/ Sodium Chloride 1,010 ml @ 75 mls/hr Q24H IV ; Start 10/10/18 at 17:00 VELIA CASTRO MD Oct 10, 2018 16:17
[2018-10-10] MEDS: MULTIVITAMINS 10 ML in DEXTROSE 5%-0.45% NACL 1,000 ML IV SCH (17:14)
--- NOTE | 2018-10-10 17:44 | CONS ---
"Assessment/Plan Assessment/Plan Hospital Course (Demo Recall) 1. right buttock wound: -debridement as needed -local care -frequent turning and off-loading -low air loss mattress -vitamin c -short term zinc -optimize nutrition -foot wounds per podiatry- already consulted -calf wound per vascular 2. UTI: -abx per sensitivity -frequent bladder emptying/cath care 3. BRANDON: hypoechoic lesion left kidney, possible neoplasm; hx of renal ca and nephrectomy -judicious fluids -limit nephrotoxic meds -armenta for neoplasm>per medical team 4. Microcytic hypochromic anemia: sp prbc tx -monitor -transfuse as needed 5. Obesity bmi 31 -diet and exercise optimization -encourage weight loss 6. Poor appetite: -supportive -treat infections 7. hepatic steatosis: -wt loss -medical fu Thank you. Patient seen and examined in collaboration with Dr. Isaac Erwin. Consultation Date/Type/Reason Admit Date/Time Oct 07, 2018 at 03:37 Date of Consultation: Oct 10, 2018 Type of Consult surgical Reason for Consultation wounds Requesting Provider: JAGJIT MONTES MD Date/Time of Note DATE: 10/10/18 TIME: 17:43 Hx of Present Illness Quintin Berman is an 82-year-old female with multiple comorbidities with pmh of coronary artery disease, status post CABG, atrial fibrillation bleeding and anemia and currently on aspirin, renal carcinoma status post nephrectomy 8 years ago, diabetes, hypertension, systolic congestive heart failure, cardiomyopathy, history of endocarditis status post treatment, status post left femoral artery thrombectomy, osteoporosis, mild dementia, and unstable gait. She was brought from home due to decreased appetite, cough and a lower back pain. No reports of fevers, cp, labored breathing, vomiting, diarrhea, sz, rash. She is currently being treated for UTI. While in house, she was also noted to have multiple wounds. General surgery was asked to evaluate. 12 point ros was reviewed and is negative except as stated in hpi. Past Medical History as above Medical History: congestive heart failure, coronary artery disease, diabetes, hypertension, other (Atrial fibrillation) Home Meds Active Scripts [Vancomycin Iv Per Pharmacy] 1 EA EACH No Conflict Check, 0 EA XX .PER PROTOCOL Prov:NUBIA TEJEDA MD 08/04/18 Reported Medications Clonidine Hcl* (Clonidine Hcl*) 0.1 Mg Tab, 0.1 MG PO Q8, TAB 06/25/18 Furosemide* (Furosemide*) 20 Mg Tablet, 20 MG PO DAILY 06/25/18 Carvedilol* (Carvedilol*) 3.125 Mg Tablet, 3.125 MG PO BID for 30 Days, #60 06/25/18 Amiodarone Hcl* (Amiodarone Hcl*) 200 Mg Tablet, 200 MG PO BID, #60 TAB 06/17/18 Dulaglutide (Trulicity) 0.75 Mg/0.5 Ml Pen.injctr, 1.75 MG SQ WEEKLY 06/11/18 Insulin Glargine,Hum.rec.anlog (Basaglar Kwikpen U-100) 100 Unit/1 Ml Insuln.pen, 20 UNIT SC DAILY, EA 06/11/18 Ferrous Sulfate (Ferrous Sulfate) 325 Mg Tablet.dr, 325 MG PO DAILY 06/11/18 Aspirin* (Aspirin* EC) 81 Mg Tablet.dr, 81 MG PO DAILY, TAB 06/11/18 Empagliflozin (Jardiance) 10 Mg Tablet, 10 MG PO DAILY, TAB 06/11/18 Esomeprazole Mag Trihydrate (Nexium) 20 Mg Capsule.dr, 20 MG PO AC BREAKFAST, #30 CAP 06/11/18 Docusate Sodium* (Colace*) 100 Mg Capsule, 100 MG PO TID, #60 CAP 06/11/18 Allopurinol* (Allopurinol*) 100 Mg Tablet, 100 MG PO BID, TAB 06/11/18 Medications Current Medications Allopurinol (Zyloprim) 100 mg BID PO Last administered on 10/10/18at 08:59; Admin Dose 100 MG; Start 10/07/18 at 21:00 Amiodarone HCl (Cordarone) 200 mg BID PO Last administered on 10/10/18at 09:00; Admin Dose 200 MG; Start 10/07/18 at 21:00 Aspirin (Halfprin) 81 mg DAILY PO Last administered on 10/08/18at 08:14; Admin Dose 81 MG; Start 10/08/18 at 09:00; Status Hold Carvedilol (Coreg) 3.125 mg BID PO Last administered on 10/10/18at 09:00; Admin Dose 3.125 MG; Start 10/07/18 at 21:00 Docusate Sodium (Colace) 100 mg TID PO Last administered on 10/08/18at 22:12; Admin Dose 100 MG; Start 10/07/18 at 21:00 Pantoprazole (Protonix Tab) 40 mg DAILY@06 PO Last administered on 10/08/18at 06:43; Admin Dose 40 MG; Start 10/08/18 at 06:00 Ferrous Sulfate (Ferrous Sulfate (Ec)) 325 mg DAILY PO Last administered on 10/10/18at 09:00; Admin Dose 325 MG; Start 10/08/18 at 09:00 IV Flush (NS 3 ml) 3 ml PER PROTOCOL IV ; Start 10/07/18 at 12:30 Ondansetron HCl (Zofran Inj) 4 mg Q6H PRN IV NAUSEA/VOMITING; Start 10/07/18 at 12:30 Acetaminophen (Tylenol Tab) 650 mg Q6H PRN PO .PAIN 1-3 OR TEMP; Start 10/07/18 at 12:30 Acetaminophen/ Hydrocodone Bitart ([place] (5/325)) 1 tab Q6H PRN PO .PAIN 4-6 Last administered on 10/08/18at 09:41; Admin Dose 1 TAB; Start 10/07/18 at 12:30 Clonidine (Catapres) 0.1 mg BID PO Last administered on 10/10/18at 09:00; Admin Dose 0.1 MG; Start 10/07/18 at 22:00 Diagnostic Test (Pha) (Accu-Chek) 1 ea 02 XX Last administered on 10/10/18at 02:05; Admin Dose 1 EA; Start 10/08/18 at 02:00 Insulin Aspart (Novolog Insulin Pen) NOVOLOG *MILD* ALGORITHM WITH MEALS BEDTIME SC Last administered on 10/10/18at 17:24; Admin Dose 2 UNIT; Start 10/07/18 at 21:00 Miscellaneous Information 1 ea NOTE XX ; Start 10/07/18 at 21:00 Glucose (Glutose) 15 gm Q15M PRN PO DECREASED GLUCOSE; Start 10/07/18 at 21:00 Glucose (Glutose) 22.5 gm Q15M PRN PO DECREASED GLUCOSE; Start 10/07/18 at 21:00 Dextrose (D50w Syringe) 25 ml Q15M PRN IV DECREASED GLUCOSE; Start 10/07/18 at 21:00 Dextrose (D50w Syringe) 50 ml Q15M PRN IV DECREASED GLUCOSE; Start 10/07/18 at 21:00 Glucagon (Glucagen) 1 mg Q15M PRN IM DECREASED GLUCOSE; Start 10/07/18 at 21:00 Glucose (Glutose) 15 gm Q15M PRN BUCCAL DECREASED GLUCOSE; Start 10/07/18 at 21:00 Ferric Sodium Gluconate Complex 125 mg/Sodium Chloride 110 ml @ 110 mls/hr DAILY@1300 IVPB Last administered on 10/10/18at 12:06; Admin Dose 110 MLS/HR; Start 10/08/18 at 13:00; Stop 10/12/18 at 13:59 Quetiapine Fumarate (Seroquel) 25 mg BID PO Last administered on 10/10/18at 09:00; Admin Dose 25 MG; Start 10/08/18 at 22:00 Meropenem/Sodium Chloride 50 ml @ 100 mls/hr Q12 IVPB Last administered on 10/10/18at 09:22; Admin Dose 100 MLS/HR; Start 10/09/18 at 12:00 Collagenase (Santyl) 1 applic DAILY TOP Last administered on 10/10/18at 06:06; Admin Dose 1 APPLIC; Start 10/09/18 at 19:00 Dextrose/Sodium Chloride 1,000 ml @ 75 mls/hr [id number] IV Last administered on 10/10/18at 11:08; Admin Dose 75 MLS/HR; Start 10/09/18 at 20:00 Multivitamins 10 ml/Dextrose/ Sodium Chloride 1,010 ml @ 75 mls/hr Q24H IV Last administered on 10/10/18at 17:14; Admin Dose 75 MLS/HR; Start 10/10/18 at 17:00 Allergies: Coded Allergies: No Known Allergies (Verified Allergy, Unknown, 08/01/18) Past Surgical History Past Surgical Hx: coronary bypass surgery, other (Status post nephrectomy for renal carcinoma 8 years ago, status post thrombectomy of left common femoral artery) Social History Alcohol Use: none Smoking Status: Never smoker Drug Use: none Exam/Review of Systems Exam Vitals Vital Signs Date Temp Pulse Resp B/P (MAP) Pulse Ox O2 O2 Flow FiO2 Time Delivery Rate 10/10/18 97.9 62 18 126/58 96 15:28 (80) 10/08/18 Room Air 23:58 Intake and Output 10/09/18 10/09/18 10/10/18 1515:00 23:00 07:00 IntakeIntake Total 100 ml BalanceBalance 100 ml Constitutional: alert; No oriented (confused) Psych: anxiety Head: normocephalic, atraumatic Eyes: nl conjunctiva, EOMI, nl lids, nl sclera ENMT: nl external ears & nose, nl nasal mucosa & septum, mucosa pink and moist Neck: supple, non-tender Respiratory: normal air movement; No congested cough Cardiovascular: regular rate and rhythm, nl pulses; No edema Gastrointestinal: soft, non-tender; No distended, No rebound or guarding Genitourinary - Female: nl external genitalia Musculoskeletal: nl extremities to inspection, muscle weakness (gen weakness) Extremities: normal pulses; No edema, No pitting pedal edema Neurological: nl speech; No nl mental status (forgetful), No nl strength (gen weakness) Skin: other (Multiple wounds: right buttock:min slough, no periwound erythema/drainage/odor | Left calf:min slough, min periwounderythema | Bilateral foot wounds); No rash or lesions Results Result Diagram: 10/10/18 1106 10/10/18 1106 Results 24hrs Laboratory Tests Test 10/09/18 20:46 10/10/18 01:55 10/10/18 06:25 10/10/18 07:46 Bedside Glucose 105 154 211 Lab Scanned BLOOD TRANSFUSIO Report N Test 10/10/18 11:06 10/10/18 12:05 White Blood Count 10.3 Red Blood Count 3.42 #L Hemoglobin 9.0 #L Hematocrit 27.6 #L Mean Corpuscular 80.7 L Volume Mean Corpuscular 26.3 L Hemoglobin Mean Corpuscular 32.6 Hemoglobin Concen t Red Cell 16.5 H Distribution Width Platelet Count 303 Mean Platelet 10.1 Volume Immature 1.000 H Granulocytes % Neutrophils % 77.2 H Lymphocytes % 11.8 L Monocytes % 8.9 Eosinophils % 0.9 Basophils % 0.2 Nucleated Red 0.2 H Blood Cells % Immature 0.100 H Granulocytes # Neutrophils # 8.0 H Lymphocytes # 1.2 Monocytes # 0.9 Eosinophils # 0.1 Basophils # 0.0 Nucleated Red 0.0 Blood Cells # Sodium Level 137 Potassium Level 4.0 Chloride Level 108 Carbon Dioxide 23 Level Anion Gap 6 Blood Urea 42 #H Nitrogen Creatinine 1.23 H Est Glomerular Filtrat Rate mL/min Glucose Level 178 Calcium Level 9.1 Bedside Glucose 204 Medications Medication Current Medications Allopurinol (Zyloprim) 100 mg BID PO Last administered on 10/10/18 08:59; Admi n Dose 100 MG; Start 10/07/18 at 21:00 Amiodarone HCl (Cordarone) 200 mg BID PO Last administered on 10/10/18 09:00; Admin Dose 200 MG; Start 10/07/18 at 21:00 Aspirin (Halfprin) 81 mg DAILY PO Last administered on 10/08/18 08:14; Admin Dose 81 MG; Start 10/08/18 at 09:00; Status Hold Carvedilol (Coreg) 3.125 mg BID PO Last administered on 10/10/18 09:00; Admin Dose 3.125 MG; Start 10/07/18 at 21:00 Docusate Sodium (Colace) 100 mg TID PO Last administered on 10/08/18 22:12; Admin Dose 100 MG; Start 10/07/18 at 21:00 Pantoprazole (Protonix Tab) 40 mg DAILY@06 PO Last administered on 10/08/18 06:43; Admin Dose 40 MG; Start 10/08/18 at 06:00 Ferrous Sulfate (Ferrous Sulfate (Ec)) 325 mg DAILY PO Last administered on 10/10/18 09:00; Admin Dose 325 MG; Start 10/08/18 at 09:00 IV Flush (NS 3 ml) 3 ml PER PROTOCOL IV ; Start 10/07/18 at 12:30 Ondansetron HCl (Zofran Inj) 4 mg Q6H PRN IV NAUSEA/VOMITING; Start 10/07/18 at 12:30 Acetaminophen (Tylenol Tab) 650 mg Q6H PRN PO .PAIN 1-3 OR TEMP; Start 10/07/18 at 12:30 Acetaminophen/ Hydrocodone Bitart ([place] (5/325)) 1 tab Q6H PRN PO .PAIN 4-6 Last administered on 10/08/18 09:41; Admin Dose 1 TAB; Start 10/07/18 at 12:30 Clonidine (Catapres) 0.1 mg BID PO Last administered on 10/10/18at 09:00; Admin Dose 0.1 MG; Start 10/07/18 at 22:00 Diagnostic Test (Pha) (Accu-Chek) 1 ea 02 XX Last administered on 10/10/18at 02:05; Admin Dose 1 EA; Start 10/08/18 at 02:00 Insulin Aspart (Novolog Insulin Pen) NOVOLOG *MILD* ALGORITHM WITH MEALS BEDTIME SC Last administered on 10/10/18at 17:24; Admin Dose 2 UNIT; Start 10/07/18 at 21:00 Miscellaneous Information 1 ea NOTE XX ; Start 10/07/18 at 21:00 Glucose (Glutose) 15 gm Q15M PRN PO DECREASED GLUCOSE; Start 10/07/18 at 21:00 Glucose (Glutose) 22.5 gm Q15M PRN PO DECREASED GLUCOSE; Start 10/07/18 at 21:00 Dextrose (D50w Syringe) 25 ml Q15M PRN IV DECREASED GLUCOSE; Start 10/07/18 at 21:00 Dextrose (D50w Syringe) 50 ml Q15M PRN IV DECREASED GLUCOSE; Start 10/07/18 at 21:00 Glucagon (Glucagen) 1 mg Q15M PRN IM DECREASED GLUCOSE; Start 10/07/18 at 21:00 Glucose (Glutose) 15 gm Q15M PRN BUCCAL DECREASED GLUCOSE; Start 10/07/18 at 21:00 Ferric Sodium Gluconate Complex 125 mg/Sodium Chloride 110 ml @ 110 mls/hr DAILY@1300 IVPB Last administered on 10/10/18at 12:06; Admin Dose 110 MLS/HR; Start 10/08/18 at 13:00; Stop 10/12/18 at 13:59 Quetiapine Fumarate (Seroquel) 25 mg BID PO Last administered on 10/10/18at 09:00; Admin Dose 25 MG; Start 10/08/18 at 22:00 Meropenem/Sodium Chloride 50 ml @ 100 mls/hr Q12 IVPB Last administered on 10/10/18at 09:22; Admin Dose 100 MLS/HR; Start 10/09/18 at 12:00 Collagenase (Santyl) 1 applic DAILY TOP Last administered on 10/10/18at 06:06; A dmin Dose 1 APPLIC; Start 10/09/18 at 19:00 Dextrose/Sodium Chloride 1,000 ml @ 75 mls/hr [id number] IV Last administered on 10/10/18at 11:08; Admin Dose 75 MLS/HR; Start 10/09/18 at 20:00 Multivitamins 10 ml/Dextrose/ Sodium Chloride 1,010 ml @ 75 mls/hr Q24H IV Last administered on 10/10/18at 17:14; Admin Dose 75 MLS/HR; Start 10/10/18 at 17:00 JUSTINE GUEVARA NP Oct 10, 2018 17:44"
--- NOTE | 2018-10-10 17:49 | CONS ---
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 Recommend daily dressing changes with betadine 4x4 gauze kerlix and offloading with prevelon soft boots. Patient will need an OR debridement and likely staged procedures. Vascular surgery following left lower extremity ulceration and appreciate input regarding vascular supply. Emphasized offloading to alleviate pressure. Appreciate abx recommendations per ID. Consultation Date/Type/Reason Admit Date/Time Oct 07, 2018 at 03:37 Date/Time of Note DATE: 10/10/18 TIME: 17:49 Hx of Present Illness 82 y/o F patient with history of coronary artery disease, status post CABG, atrial fibrillation however patient did not tolerate anticoagulation in the past due to bleeding and anemia and currently on aspirin, history of renal carcinoma status post nephrectomy 8 years ago, history of diabetes, hypertension, systolic congestive heart failure, cardiomyopathy, history of endocarditis status post treatment, status post left femoral artery thrombectomy, osteoporosis, mild dementia, and unstable gait. Patient was brought from home due to decreased ap petite, cough and a lower back pain. During the evaluation in the emergency room patient is noted to have leukocytosis, and elevated lactic acid. Urinalysis is indicative for infection. Patient was seen on the floors and presented with chronic right heel decubitus ulceration. Patient's family member explained that the wound had been present for 3 months and due to her lack of mobility she lays in bed majority of the time. Patient's family member stated that she was receiving home health care with daily dressing changes. Patient relates pain to the ulceration site. She also has a lower left extremity ulceration site that is being managed by vascular surgery. She also had vascular bypass done to the left lower extremity. Past Medical History Medical History: congestive heart failure, coronary artery disease, diabetes, hypertension, other (Atrial fibrillation) Home Meds Active Scripts [Vancomycin Iv Per Pharmacy] 1 EA EACH No Conflict Check, 0 EA XX .PER PROTOCOL Prov:NUBIA TEJEDA MD 08/04/18 Reported Medications Clonidine Hcl* (Clonidine Hcl*) 0.1 Mg Tab, 0.1 MG PO Q8, TAB 06/25/18 Furosemide* (Furosemide*) 20 Mg Tablet, 20 MG PO DAILY 06/25/18 Carvedilol* (Carvedilol*) 3.125 Mg Tablet, 3.125 MG PO BID for 30 Days, #60 06/25/18 Amiodarone Hcl* (Amiodarone Hcl*) 200 Mg Tablet, 200 MG PO BID, #60 TAB 06/17/18 Dulaglutide (Trulicity) 0.75 Mg/0.5 Ml Pen.injctr, 1.75 MG SQ WEEKLY 06/11/18 Insulin Glargine,Hum.rec.anlog (Basaglar Kwikpen U-100) 100 Unit/1 Ml Insuln.pen, 20 UNIT SC DAILY, EA 06/11/18 Ferrous Sulfate (Ferrous Sulfate) 325 Mg Tablet.dr, 325 MG PO DAILY 06/11/18 Aspirin* (Aspirin* EC) 81 Mg Tablet.dr, 81 MG PO DAILY, TAB 06/11/18 Empagliflozin (Jardiance) 10 Mg Tablet, 10 MG PO DAILY, TAB 06/11/18 Esomeprazole Mag Trihydrate (Nexium) 20 Mg Capsule.dr, 20 MG PO AC BREAKFAST, #30 CAP 06/11/18 Docusate Sodium* (Colace*) 100 Mg Capsule, 100 MG PO TID, #60 CAP 06/11/18 Allopurinol* (Allopurinol*) 100 Mg Tablet, 100 MG PO BID, TAB 06/11/18 Medications Current Medications Allopurinol (Zyloprim) 100 mg BID PO Last administered on 10/10/18at 08:59; Admin Dose 100 MG; Start 10/07/18 at 21:00 Amiodarone HCl (Cordarone) 200 mg BID PO Last administered on 10/10/18at 09:00; Admin Dose 200 MG; Start 10/07/18 at 21:00 Aspirin (Halfprin) 81 mg DAILY PO Last administered on 10/08/18at 08:14; Admin Dose 81 MG; Start 10/08/18 at 09:00; Status Hold Carvedilol (Coreg) 3.125 mg BID PO Last administered on 10/10/18at 09:00; Admin Dose 3.125 MG; Start 10/07/18 at 21:00 Docusate Sodium (Colace) 100 mg TID PO Last administered on 10/08/18at 22:12; Admin Dose 100 MG; Start 10/07/18 at 21:00 Pantoprazole (Protonix Tab) 40 mg DAILY@06 PO Last administered on 10/08/18at 06:43; Admin Dose 40 MG; Start 10/08/18 at 06:00 Ferrous Sulfate (Ferrous Sulfate (Ec)) 325 mg DAILY PO Last administered on 10/10/18at 09:00; Admin Dose 325 MG; Start 10/08/18 at 09:00 IV Flush (NS 3 ml) 3 ml PER PROTOCOL IV ; Start 10/07/18 at 12:30 Ondansetron HCl (Zofran Inj) 4 mg Q6H PRN IV NAUSEA/VOMITING; Start 10/07/18 at 12:30 Acetaminophen (Tylenol Tab) 650 mg Q6H PRN PO .PAIN 1-3 OR TEMP; Start 10/07/18 at 12:30 Acetaminophen/ Hydrocodone Bitart ([place] (5/325)) 1 tab Q6H PRN PO .PAIN 4-6 Last administered on 10/08/18at 09:41; Admin Dose 1 TAB; Start 10/07/18 at 12:30 Clonidine (Catapres) 0.1 mg BID PO Last administered on 10/10/18at 09:00; Admin Dose 0.1 MG; Start 10/07/18 at 22:00 Diagnostic Test (Pha) (Accu-Chek) 1 ea 02 XX Last administered on 10/10/18at 02:05; Admin Dose 1 EA; Start 10/08/18 at 02:00 Insulin Aspart (Novolog Insulin Pen) NOVOLOG *MILD* ALGORITHM WITH MEALS BEDTIME SC Last administered on 10/10/18at 17:24; Admin Dose 2 UNIT; Start 10/07/18 at 21:00 Miscellaneous Information 1 ea NOTE XX ; Start 10/07/18 at 21:00 Glucose (Glutose) 15 gm Q15M PRN PO DECREASED GLUCOSE; Start 10/07/18 at 21:00 Glucose (Glutose) 22.5 gm Q15M PRN PO DECREASED GLUCOSE; Start 10/07/18 at 21:00 Dextrose (D50w Syringe) 25 ml Q15M PRN IV DECREASED GLUCOSE; Start 10/07/18 at 21:00 Dextrose (D50w Syringe) 50 ml Q15M PRN IV DECREASED GLUCOSE; Start 10/07/18 at 21:00 Glucagon (Glucagen) 1 mg Q15M PRN IM DECREASED GLUCOSE; Start 10/07/18 at 21:00 Glucose (Glutose) 15 gm Q15M PRN BUCCAL DECREASED GLUCOSE; Start 10/07/18 at 21:00 Ferric Sodium Gluconate Complex 125 mg/Sodium Chloride 110 ml @ 110 mls/hr DAILY@1300 IVPB Last administered on 10/10/18at 12:06; Admin Dose 110 MLS/HR; Start 10/08/18 at 13:00; Stop 10/12/18 at 13:59 Quetiapine Fumarate (Seroquel) 25 mg BID PO Last administered on 10/10/18at 09:00; Admin Dose 25 MG; Start 10/08/18 at 22:00 Meropenem/Sodium Chloride 50 ml @ 100 mls/hr Q12 IVPB Last administered on 10/10/18at 09:22; Admin Dose 100 MLS/HR; Start 10/09/18 at 12:00 Collagenase (Santyl) 1 applic DAILY TOP Last administered on 10/10/18at 06:06; Admin Dose 1 APPLIC; Start 10/09/18 at 19:00 Dextrose/Sodium Chloride 1,000 ml @ 75 mls/hr [id number] IV Last administered on 10/10/18at 11:08; Admin Dose 75 MLS/HR; Start 10/09/18 at 20:00 Multivitamins 10 ml/Dextrose/ Sodium Chloride 1,010 ml @ 75 mls/hr Q24H IV Last administered on 10/10/18at 17:14; Admin Dose 75 MLS/HR; Start 10/10/18 at 17:00 Allergies: Coded Allergies: No Known Allergies (Verified Allergy, Unknown, 08/01/18) Past Surgical History Past Surgical Hx: coronary bypass surgery, other (Status post nephrectomy for renal carcinoma 8 years ago, status post thrombectomy of left common femoral artery) Social History Alcohol Use: none Smoking Status: Never smoker Drug Use: none Exam/Review of Systems Exam Vitals Vital Signs Date Temp Pulse Resp B/P (MAP) Pulse Ox O2 O2 Flow FiO2 Time Delivery Rate 10/10/18 97.9 62 18 126/58 96 15:28 (80) 10/08/18 Room Air 23:58 Intake and Output 10/09/18 10/09/18 10/10/18 1515:00 23:00 07:00 IntakeIntake Total 100 ml BalanceBalance 100 ml Exam DP pulse palpable, non palpable PT pulse, palpable popliteal pulse. Irregular rhythm appreciated during palpation Skin temperature gradient warm to warm from proximal leg to distal feet Absent protective sensations Right posterior heel ulcer fibronecrotic with some purulence appreciated 3 x 4 x 0.8cm ulcer probes to bone, no foul odor appreciated, no proximal streaking Pain on palpation to ulceration site Bandage to left lower extremity site with previously healed surgical bypass site. Results Result Diagram: 10/10/18 1106 10/10/18 1106 Results 24hrs Laboratory Tests Test 10/09/18 20:46 10/10/18 01:55 10/10/18 06:25 10/10/18 07:46 Bedside Glucose 105 154 211 Lab Scanned BLOOD TRANSFUSIO Report N Test 10/10/18 11:06 10/10/18 12:05 White Blood Count 10.3 Red Blood Count 3.42 #L Hemoglobin 9.0 #L Hematocrit 27.6 #L Mean Corpuscular 80.7 L Volume Mean Corpuscular 26.3 L Hemoglobin Mean Corpuscular 32.6 Hemoglobin Concen t Red Cell 16.5 H Distribution Width Platelet Count 303 Mean Platelet 10.1 Volume Immature 1.000 H Granulocytes % Neutrophils % 77.2 H Lymphocytes % 11.8 L Monocytes % 8.9 Eosinophils % 0.9 Basophils % 0.2 Nucleated Red 0.2 H Blood Cells % Immature 0.100 H Granulocytes # Neutrophils # 8.0 H Lymphocytes # 1.2 Monocytes # 0.9 Eosinophils # 0.1 Basophils # 0.0 Nucleated Red 0.0 Blood Cells # Sodium Level 137 Potassium Level 4.0 Chloride Level 108 Carbon Dioxide 23 Level Anion Gap 6 Blood Urea 42 #H Nitrogen Creatinine 1.23 H Est Glomerular Filtrat Rate mL/min Glucose Level 178 Calcium Level 9.1 Bedside Glucose 204 Medications Medication Current Medications Allopurinol (Zyloprim) 100 mg BID PO Last administered on 10/10/18at 08:59; Admin Dose 100 MG; Start 10/07/18 at 21:00 Amiodarone HCl (Cordarone) 200 mg BID PO Last administered on 10/10/18at 09:00; Admin Dose 200 MG; Start 10/07/18 at 21:00 Aspirin (Halfprin) 81 mg DAILY PO Last administered on 10/08/18 08:14; Admin Dose 81 MG; Start 10/08/18 at 09:00; Status Hold Carvedilol (Coreg) 3.125 mg BID PO Last administered on 10/10/18 09:00; Admin Dose 3.125 MG; Start 10/07/18 at 21:00 Docusate Sodium (Colace) 100 mg TID PO Last administered on 10/08/18 22:12; Admin Dose 100 MG; Start 10/07/18 at 21:00 Pantoprazole (Protonix Tab) 40 mg DAILY@06 PO Last administered on 10/08/18 06:43; Admin Dose 40 MG; Start 10/08/18 at 06:00 Ferrous Sulfate (Ferrous Sulfate (Ec)) 325 mg DAILY PO Last administered on 10/10/18 09:00; Admin Dose 325 MG; Start 10/08/18 at 09:00 IV Flush (NS 3 ml) 3 ml PER PROTOCOL IV ; Start 10/07/18 at 12:30 Ondansetron HCl (Zofran Inj) 4 mg Q6H PRN IV NAUSEA/VOMITING; Start 10/07/18 at 12:30 Acetaminophen (Tylenol Tab) 650 mg Q6H PRN PO .PAIN 1-3 OR TEMP; Start 10/07/18 at 12:30 Acetaminophen/ Hydrocodone Bitart ([place] (5/325)) 1 tab Q6H PRN PO .PAIN 4-6 Last administered on 10/08/18at 09:41; Admin Dose 1 TAB; Start 10/07/18 at 12:30 Clonidine (Catapres) 0.1 mg BID PO Last administered on 10/10/18 09:00; Admin Dose 0.1 MG; Start 10/07/18 at 22:00 Diagnostic Test (Pha) (Accu-Chek) 1 ea 02 XX Last administered on 10/10/18 02:05; Admin Dose 1 EA; Start 10/08/18 at 02:00 Insulin Aspart (Novolog Insulin Pen) NOVOLOG *MILD* ALGORITHM WITH MEALS BEDTIME SC Last administered on 10/10/18 17:24; Admin Dose 2 UNIT; Start 10/07/18 at 21:00 Miscellaneous Information 1 ea NOTE XX ; Start 10/07/18 at 21:00 Glucose (Glutose) 15 gm Q15M PRN PO DECREASED GLUCOSE; Start 10/07/18 at 21:00 Glucose (Glutose) 22.5 gm Q15M PRN PO DECREASED GLUCOSE; Start 10/07/18 at 21:00 Dextrose (D50w Syringe) 25 ml Q15M PRN IV DECREASED GLUCOSE; Start 10/07/18 at 21:00 Dextrose (D50w Syringe) 50 ml Q15M PRN IV DECREASED GLUCOSE; Start 10/07/18 at 21:00 Glucagon (Glucagen) 1 mg Q15M PRN IM DECREASED GLUCOSE; Start 10/07/18 at 21:00 Glucose (Glutose) 15 gm Q15M PRN BUCCAL DECREASED GLUCOSE; Start 10/07/18 at 21:00 Ferric Sodium Gluconate Complex 125 mg/Sodium Chloride 110 ml @ 110 mls/hr DAILY@1300 IVPB Last administered on 10/10/18at 12:06; Admin Dose 110 MLS/HR; Start 10/08/18 at 13:00; Stop 10/12/18 at 13:59 Quetiapine Fumarate (Seroquel) 25 mg BID PO Last administered on 10/10/18at 09:00; Admin Dose 25 MG; Start 10/08/18 at 22:00 Meropenem/Sodium Chloride 50 ml @ 100 mls/hr Q12 IVPB Last administered on 10/10/18at 09:22; Admin Dose 100 MLS/HR; Start 10/09/18 at 12:00 Collagenase (Santyl) 1 applic DAILY TOP Last administered on 10/10/18at 06:06; Admin Dose 1 APPLIC; Start 10/09/18 at 19:00 Dextrose/Sodium Chloride 1,000 ml @ 75 mls/hr [id number] IV Last administered on 10/10/18at 11:08; Admin Dose 75 MLS/HR; Start 10/09/18 at 20:00 Multivitamins 10 ml/Dextrose/ Sodium Chloride 1,010 ml @ 75 mls/hr Q24H IV Last administered on 10/10/18at 17:14; Admin Dose 75 MLS/HR; Start 10/10/18 at 17:00 NANCY DIANE DPM Oct 10, 2018 17:49
[2018-10-10 19:51] VITALS: BP 145/65; PULSE 62; RESP 20
[2018-10-11] VITALS: BP 108/54; PULSE 60; RESP 19
[2018-10-11] MEDS: ACCU-CHEK XX SCH (02:00)
[2018-10-11 04:00] VITALS: BP 121/56; PULSE 65; RESP 19
[2018-10-11] MEDS: PANTOPRAZOLE (EC) 40 MG TAB PO SCH (06:00)
[2018-10-11 07:26] VITALS: BP 135/59; PULSE 59; RESP 18
[2018-10-11] MEDS: INSULIN ASPART [NOVOLOG] 3 ML PEN SC SCH ×4 (08:38→21:15)
[2018-10-11] MEDS: DAKINS 0.0125%(1/40) 473 ML SOLUTION TP SCH (09:00)
--- NOTE | 2018-10-11 09:12 | CONS ---
Assessment/Plan Assessment/Plan Hospital Course (Demo Recall) Awake,quiet, looks comfortable, no fevers Microbiology: Blood cultures negative, urine culture + MDR Kleb, repeat cx + yeast Chest x-ray on admission revealed no evidence of CHF or pneumonia. Renal ultrasound revealed no hydronephrosis and no nephrolithiasis. 3.1 x 2 x 2.1 cm hypoechoic lesion left pole of the kidney questionable neoplasm Antimicrobials: Merrem Physical examination: Well-developed chronically ill-appearing wasted elderly woman who is in no distress. Head atraumatic normocephalic neck is supple chest rise symmetrical breath sounds diminished bases. Heart: S1-S2. Abdomen soft bowel sounds present. Extremities with dependent bilateral lower extremities edema Assessment: 1. Sepsis, present on admission 2. Gram-negative melvi/yeast UTI 3. Acute on chronic anemia 4. Coronary artery disease with a history of CABG 5. Echo dense structure seen by tricuspid valve, right atrium and IVC- thrombus, vegetation versus tumor=== completed 6 weeks IV antibiotics> 6. History of renal cell carcinoma status post nephrectomy 7. Diabetes 8. R heel decub Plan: Clinically unchanged, podiatry rec-s noted---> R foot MRI ordered but son refusing, will add Cancidas, continue supportive care, GI/renal/card rec-s, guarded DW son at bedside Consultation Date/Type/Reason Admit Date/Time Oct 07, 2018 at 03:37 Initial Consult Date 10/07/18 Type of Consult id Requesting Provider: JAGJIT MONTES MD Date/Time of Note DATE: 10/11/18 TIME: 09:10 Exam/Review of Systems Exam Vitals Vital Signs Date Temp Pulse Resp B/P (MAP) Pulse Ox O2 O2 Flow FiO2 Time Delivery Rate 10/11/18 97.6 59 18 135/59 96 07:26 (84) 10/08/18 Room Air 23:58 Results Result Diagram: 10/11/18 0644 10/11/18 0644 Results 24hrs Laboratory Tests Test 10/10/18 11:06 10/10/18 12:05 10/10/18 18:47 10/11/18 06:43 White Blood Count 10.3 Red Blood Count 3.42 #L Hemoglobin 9.0 #L Hematocrit 27.6 #L Mean Corpuscular 80.7 L Volume Mean Corpuscular 26.3 L Hemoglobin Mean Corpuscular 32.6 Hemoglobin Concent Red Cell 16.5 H Distribution Width Platelet Count 303 Mean Platelet Volume 10.1 Immature 1.000 H Granulocytes % Neutrophils % 77.2 H Lymphocytes % 11.8 L Monocytes % 8.9 Eosinophils % 0.9 Basophils % 0.2 Nucleated Red Blood 0.2 H Cells % Immature 0.100 H Granulocytes # Neutrophils # 8.0 H Lymphocytes # 1.2 Monocytes # 0.9 Eosinophils # 0.1 Basophils # 0.0 Nucleated Red Blood 0.0 Cells # Sodium Level 137 Potassium Level 4.0 Chloride Level 108 Carbon Dioxide Level 23 Anion Gap 6 Blood Urea Nitrogen 42 #H Creatinine 1.23 H Est Glomerular Filtrat Rate mL/min Glucose Level 178 Calcium Level 9.1 Bedside Glucose 204 Erythrocyte 22 Sedimentation Rate C-Reactive Protein 1.8 H Procalcitonin 0.16 H Ammonia < 9 L Test 10/11/18 06:44 10/11/18 08:32 White Blood Count 8.9 Red Blood Count 3.38 L Hemoglobin 9.0 L Hematocrit 27.6 L Mean Corpuscular 81.7 L Volume Mean Corpuscular 26.6 L Hemoglobin Mean Corpuscular 32.6 Hemoglobin Concent Red Cell 16.6 H Distribution Width Platelet Count 303 Mean Platelet Volume 9.9 Immature 0.900 H Granulocytes % Neutrophils % 70.6 Lymphocytes % 18.2 Monocytes % 8.8 Eosinophils % 1.3 Basophils % 0.2 Nucleated Red Blood 0.0 Cells % Immature 0.080 H Granulocytes # Neutrophils # 6.3 Lymphocytes # 1.6 Monocytes # 0.8 Eosinophils # 0.1 Basophils # 0.0 Nucleated Red Blood 0.0 Cells # Sodium Level 137 Potassium Level 4.0 Chloride Level 108 Carbon Dioxide Level 23 Anion Gap 6 Blood Urea Nitrogen 37 H Creatinine 1.13 H Est Glomerular Filtrat Rate mL/min Glucose Level 251 H Calcium Level 9.1 Total Bilirubin 0.3 Direct Bilirubin 0.00 Indirect Bilirubin 0.3 Aspartate Amino 37 Transf (AST/SGOT) Alanine 184 H Aminotransferase (AL T/SGPT) Alkaline Phosphatase 100 Total Protein 4.9 L Albumin 2.3 L Globulin 2.60 Albumin/Globulin 0.88 Ratio Bedside Glucose 280 H Medications Medication Current Medications Allopurinol (Zyloprim) 100 mg BID PO Last administered on 10/10/18at 20:29; Admin Dose 100 MG; Start 10/07/18 at 21:00 Aspirin (Halfprin) 81 mg DAILY PO Last administered on 10/08/18 08:14; Admin Dose 81 MG; Start 10/08/18 at 09:00; Status Hold Carvedilol (Coreg) 3.125 mg BID PO Last administered on 10/10/18 20:29; Admin Dose 3.125 MG; Start 10/07/18 at 21:00 Docusate Sodium (Colace) 100 mg TID PO Last administered on 10/10/18 20:28; Admin Dose 100 MG; Start 10/07/18 at 21:00 Pantoprazole (Protonix Tab) 40 mg DAILY@06 PO Last administered on 10/08/18 06:43; Admin Dose 40 MG; Start 10/08/18 at 06:00 Ferrous Sulfate (Ferrous Sulfate (Ec)) 325 mg DAILY PO Last administered on 10/10/18 09:00; Admin Dose 325 MG; Start 10/08/18 at 09:00 IV Flush (NS 3 ml) 3 ml PER PROTOCOL IV ; Start 10/07/18 at 12:30 Ondansetron HCl (Zofran Inj) 4 mg Q6H PRN IV NAUSEA/VOMITING; Start 10/07/18 at 12:30 Acetaminophen (Tylenol Tab) 650 mg Q6H PRN PO .PAIN 1-3 OR TEMP; Start 10/07/18 at 12:30 Acetaminophen/ Hydrocodone Bitart ([place] (5/325)) 1 tab Q6H PRN PO .PAIN 4-6 Last administered on 10/08/18 09:41; Admin Dose 1 TAB; Start 10/07/18 at 12:30 Clonidine (Catapres) 0.1 mg BID PO Last administered on 10/10/18 20:29; Admin Dose 0.1 MG; Start 10/07/18 at 22:00 Diagnostic Test (Pha) (Accu-Chek) 1 ea 02 XX Last administered on 10/10/18 02:05; Admin Dose 1 EA; Start 10/08/18 at 02:00 Insulin Aspart (Novolog Insulin Pen) NOVOLOG *MILD* ALGORITHM WITH MEALS B EDTIME SC Last administered on 10/11/18 08:38; Admin Dose 4 UNIT; Start 10/07/18 at 21:00 Miscellaneous Information 1 ea NOTE XX ; Start 10/07/18 at 21:00 Glucose (Glutose) 15 gm Q15M PRN PO DECREASED GLUCOSE; Start 10/07/18 at 21:00 Glucose (Glutose) 22.5 gm Q15M PRN PO DECREASED GLUCOSE; Start 10/07/18 at 21:00 Dextrose (D50w Syringe) 25 ml Q15M PRN IV DECREASED GLUCOSE; Start 10/07/18 at 21:00 Dextrose (D50w Syringe) 50 ml Q15M PRN IV DECREASED GLUCOSE; Start 10/07/18 at 21:00 Glucagon (Glucagen) 1 mg Q15M PRN IM DECREASED GLUCOSE; Start 10/07/18 at 21:00 Glucose (Glutose) 15 gm Q15M PRN BUCCAL DECREASED GLUCOSE; Start 10/07/18 at 21:00 Ferric Sodium Gluconate Complex 125 mg/Sodium Chloride 110 ml @ 110 mls/hr DAILY@1300 IVPB Last administered on 10/10/18at 12:06; Admin Dose 110 MLS/HR; Start 10/08/18 at 13:00; Stop 10/12/18 at 13:59 Quetiapine Fumarate (Seroquel) 25 mg BID PO Last administered on 10/10/18at 20:29; Admin Dose 25 MG; Start 10/08/18 at 22:00 Meropenem/Sodium Chloride 50 ml @ 100 mls/hr Q12 IVPB Last administered on 10/10/18at 20:30; Admin Dose 100 MLS/HR; Start 10/09/18 at 12:00 Collagenase (Santyl) 1 applic DAILY TOP Last administered on 10/10/18at 06:06; Admin Dose 1 APPLIC; Start 10/09/18 at 19:00 Dextrose/Sodium Chloride 1,000 ml @ 75 mls/hr [id number] IV Last administered on 10/10/18at 11:08; Admin Dose 75 MLS/HR; Start 10/09/18 at 20:00 Multivitamins 10 ml/Dextrose/ Sodium Chloride 1,010 ml @ 75 mls/hr Q24H IV Last administered on 10/10/18at 17:14; Admin Dose 75 MLS/HR; Start 10/10/18 at 17:00 Sodium Hypochlorite (Dakins Diluted ()) 1 applic DAILY TP ; Start 10/11/18 at 09:00 Amiodarone HCl (Cordarone) 200 mg DAILY PO ; Start 10/11/18 at 09:00 BARBARA ORDAZ NP Oct 11, 2018 09:12
[2018-10-11] MEDS: MEROPENEM 500MG/50 ML (PMX) 50 ML IVPB SCH ×2 (10:02→21:01)
[2018-10-11] MEDS: FERROUS SULFATE (EC) 325 MG TAB PO SCH (10:07)
[2018-10-11] MEDS: DOCUSATE SODIUM 100 MG CAP PO SCH ×3 (10:07→21:02)
[2018-10-11] MEDS: COLLAGENASE 5 GM (UD JAR) TOP SCH (10:07)
[2018-10-11] MEDS: QUETIAPINE 25 MG TAB PO SCH ×3 (10:08→21:02)
[2018-10-11] MEDS: AMIODARONE 200 MG TAB PO SCH (10:09)
[2018-10-11] MEDS: ALLOPURINOL 100 MG TAB PO SCH ×2 (10:09→21:02)
[2018-10-11] MEDS ORDERED: CASPOFUNGIN 70 MG in SOD CHLORIDE 0.9% 250 ML IVPB ONE (10:30)
--- NOTE | 2018-10-11 11:04 | PN ---
Date/Time of Note Date/Time of Note DATE: 10/11/18 TIME: 11:03 Assessment/Plan VTE Prophylaxis Risk score (from Ns)>0 risk: 4 SCD applied (from Ns): No SCD contraindicated: other Pharmacological prophylaxis: LMWH Lines/Catheters IV Catheter Type (from [facility]): Peripheral IV Assessment/Plan Hospital Course -Anemia, history of emesis at home and loss of appetite. - Dr. Winkler is following in gastroenterology consultation. - SP 1 unit PRBC yesterday- pending CBC TODAY - Delerium - SP psych consult - Decreased po intake - per dietary; per family when her HGb drops; her appetite decreases and gets better with hgb improves -Sepsis secondary to urinary tract infection and possible early pneumonia. Continue antibiotics per ID. Dr. Elias is following in infection disease cons ultation. -Gram-negative rods UTI. -Hyperkalemia, resolved, status post treatment -Acute kidney injury, continue gentle hydration, monitor BUN and creatinine. Dr. Arreaga is following in nephrology consultation. -Hypertension -Systolic congestive heart failure. Dr. Chávez is following in cardiology consultation. -Cardiomyopathy with ejection fraction 50% -Atrial fibrillation, patient did not tolerate anticoagulation in the past due to bleeding and anemia, patient was on aspirin which is currently held due significant drop in hemoglobin. -Coronary artery disease, status post CABG -Diabetes mellitus type 2, continue Lantus and pre-meal NovoLog. -History of endocarditis, status post treatment -Sacral, right foot, and left garcia wounds. Continue current care per wound care recommendations. -History of left femoral artery thrombectomy, left garcia open wound. Dr. Dawson is asked to see patient in vascular surgery consultation for evaluation of left garcia wound. Result Diagram: 10/11/18 0644 10/11/18 0644 Results 24hrs Laboratory Tests Test 10/10/18 11:06 10/10/18 12:05 10/10/18 18:47 10/11/18 06:43 White Blood Count 10.3 Red Blood Count 3.42 #L Hemoglobin 9.0 #L Hematocrit 27.6 #L Mean Corpuscular 80.7 L Volume Mean Corpuscular 26.3 L Hemoglobin Mean Corpuscular 32.6 Hemoglobin Concent Red Cell 16.5 H Distribution Width Platelet Count 303 Mean Platelet Volume 10.1 Immature 1.000 H Granulocytes % Neutrophils % 77.2 H Lymphocytes % 11.8 L Monocytes % 8.9 Eosinophils % 0.9 Basophils % 0.2 Nucleated Red Blood 0.2 H Cells % Immature 0.100 H Granulocytes # Neutrophils # 8.0 H Lymphocytes # 1.2 Monocytes # 0.9 Eosinophils # 0.1 Basophils # 0.0 Nucleated Red Blood 0.0 Cells # Sodium Level 137 Potassium Level 4.0 Chloride Level 108 Carbon Dioxide Level 23 Anion Gap 6 Blood Urea Nitrogen 42 #H Creatinine 1.23 H Est Glomerular Filtrat Rate mL/min Glucose Level 178 Calcium Level 9.1 Bedside Glucose 204 Erythrocyte 22 Sedimentation Rate C-Reactive Protein 1.8 H Procalcitonin 0.16 H Ammonia < 9 L Test 10/11/18 06:44 10/11/18 08:32 White Blood Count 8.9 Red Blood Count 3.38 L Hemoglobin 9.0 L Hematocrit 27.6 L Mean Corpuscular 81.7 L Volume Mean Corpuscular 26.6 L Hemoglobin Mean Corpuscular 32.6 Hemoglobin Concent Red Cell 16.6 H Distribution Width Platelet Count 303 Mean Platelet Volume 9.9 Immature 0.900 H Granulocytes % Neutrophils % 70.6 Lymphocytes % 18.2 Monocytes % 8.8 Eosinophils % 1.3 Basophils % 0.2 Nucleated Red Blood 0.0 Cells % Immature 0.080 H Granulocytes # Neutrophils # 6.3 Lymphocytes # 1.6 Monocytes # 0.8 Eosinophils # 0.1 Basophils # 0.0 Nucleated Red Blood 0.0 Cells # Sodium Level 137 Potassium Level 4.0 Chloride Level 108 Carbon Dioxide Level 23 Anion Gap 6 Blood Urea Nitrogen 37 H Creatinine 1.13 H Est Glomerular Filtrat Rate mL/min Glucose Level 251 H Calcium Level 9.1 Total Bilirubin 0.3 Direct Bilirubin 0.00 Indirect Bilirubin 0.3 Aspartate Amino 37 Transf (AST/SGOT) Alanine 184 H Aminotransferase (AL T/SGPT) Alkaline Phosphatase 100 Total Protein 4.9 L Albumin 2.3 L Globulin 2.60 Albumin/Globulin 0.88 Ratio Bedside Glucose 280 H Subjective 24 Hr Interval Summary Free Text/Dictation Patient vocalizing loudly, not communicative Exam/Review of Systems Exam Vitals Vital Signs Date Temp Pulse Resp B/P (MAP) Pulse Ox O2 O2 Flow FiO2 Time Delivery Rate 10/11/18 97.6 59 18 135/59 96 07:26 (84) 10/08/18 Room Air 23:58 Constitutional: well developed Head: normocephalic, atraumatic Neck: supple Respiratory: diminished breath sounds Cardiovascular: regular rate and rhythm Gastrointestinal: soft, non-tender Extremities: normal pulses Results Results 24hrs Laboratory Tests Test 10/10/18 11:06 10/10/18 12:05 10/10/18 18:47 10/11/18 06:43 White Blood Count 10.3 Red Blood Count 3.42 #L Hemoglobin 9.0 #L Hematocrit 27.6 #L Mean Corpuscular 80.7 L Volume Mean Corpuscular 26.3 L Hemoglobin Mean Corpuscular 32.6 Hemoglobin Concent Red Cell 16.5 H Distribution Width Platelet Count 303 Mean Platelet Volume 10.1 Immature 1.000 H Granulocytes % Neutrophils % 77.2 H Lymphocytes % 11.8 L Monocytes % 8.9 Eosinophils % 0.9 Basophils % 0.2 Nucleated Red Blood 0.2 H Cells % Immature 0.100 H Granulocytes # Neutrophils # 8.0 H Lymphocytes # 1.2 Monocytes # 0.9 Eosinophils # 0.1 Basophils # 0.0 Nucleated Red Blood 0.0 Cells # Sodium Level 137 Potassium Level 4.0 Chloride Level 108 Carbon Dioxide Level 23 Anion Gap 6 Blood Urea Nitrogen 42 #H Creatinine 1.23 H Est Glomerular Filtrat Rate mL/min Glucose Level 178 Calcium Level 9.1 Bedside Glucose 204 Erythrocyte 22 Sedimentation Rate C-Reactive Protein 1.8 H Procalcitonin 0.16 H Ammonia < 9 L Test 10/11/18 06:44 10/11/18 08:32 White Blood Count 8.9 Red Blood Count 3.38 L Hemoglobin 9.0 L Hematocrit 27.6 L Mean Corpuscular 81.7 L Volume Mean Corpuscular 26.6 L Hemoglobin Mean Corpuscular 32.6 Hemoglobin Concent Red Cell 16.6 H Distribution Width Platelet Count 303 Mean Platelet Volume 9.9 Immature 0.900 H Granulocytes % Neutrophils % 70.6 Lymphocytes % 18.2 Monocytes % 8.8 Eosinophils % 1.3 Basophils % 0.2 Nucleated Red Blood 0.0 Cells % Immature 0.080 H Granulocytes # Neutrophils # 6.3 Lymphocytes # 1.6 Monocytes # 0.8 Eosinophils # 0.1 Basophils # 0.0 Nucleated Red Blood 0.0 Cells # Sodium Level 137 Potassium Level 4.0 Chloride Level 108 Carbon Dioxide Level 23 Anion Gap 6 Blood Urea Nitrogen 37 H Creatinine 1.13 H Est Glomerular Filtrat Rate mL/min Glucose Level 251 H Calcium Level 9.1 Total Bilirubin 0.3 Direct Bilirubin 0.00 Indirect Bilirubin 0.3 Aspartate Amino 37 Transf (AST/SGOT) Alanine 184 H Aminotransferase (AL T/SGPT) Alkaline Phosphatase 100 Total Protein 4.9 L Albumin 2.3 L Globulin 2.60 Albumin/Globulin 0.88 Ratio Bedside Glucose 280 H Medications Medication Current Medications Allopurinol (Zyloprim) 100 mg BID PO Last administered on 10/11/18 10:09; Admin Dose 100 MG; Start 10/07/18 at 21:00 Aspirin (Halfprin) 81 mg DAILY PO Last administered on 10/08/18 08:14; Admin Dose 81 MG; Start 10/08/18 at 09:00; Status Hold Carvedilol (Coreg) 3.125 mg BID PO Last administered on 10/10/18 20:29; Admin Dose 3.125 MG; Start 10/07/18 at 21:00 Docusate Sodium (Colace) 100 mg TID PO Last administered on 10/11/18 10:07; Admin Dose 100 MG; Start 10/07/18 at 21:00 Pantoprazole (Protonix Tab) 40 mg DAILY@06 PO Last administered on 10/08/18 06:43; Admin Dose 40 MG; Start 10/08/18 at 06:00 Ferrous Sulfate (Ferrous Sulfate (Ec)) 325 mg DAILY PO Last administered on 10/11/18 10:07; Admin Dose 325 MG; Start 10/08/18 at 09:00 IV Flush (NS 3 ml) 3 ml PER PROTOCOL IV ; Start 10/07/18 at 12:30 Ondansetron HCl (Zofran Inj) 4 mg Q6H PRN IV NAUSEA/VOMITING; Start 10/07/18 at 12:30 Acetaminophen (Tylenol Tab) 650 mg Q6H PRN PO .PAIN 1-3 OR TEMP; Start 10/07/18 at 12:30 Acetaminophen/ Hydrocodone Bitart ([place] (5/325)) 1 tab Q6H PRN PO .PAIN 4-6 Last administered on 10/08/18 09:41; Admin Dose 1 TAB; Start 10/07/18 at 12:30 Clonidine (Catapres) 0.1 mg BID PO Last administered on 10/11/18at 10:10; Admin Dose 0.1 MG; Start 10/07/18 at 22:00 Diagnostic Test (Pha) (Accu-Chek) 1 ea 02 XX Last administered on 10/10/18at 02:05; Admin Dose 1 EA; Start 10/08/18 at 02:00 Insulin Aspart (Novolog Insulin Pen) NOVOLOG *MILD* ALGORITHM WITH MEALS BEDTIME SC Last administered on 10/11/18at 08:38; Admin Dose 4 UNIT; Start 10/07/18 at 21:00 Miscellaneous Information 1 ea NOTE XX ; Start 10/07/18 at 21:00 Glucose (Glutose) 15 gm Q15M PRN PO DECREASED GLUCOSE; Start 10/07/18 at 21:00 Glucose (Glutose) 22.5 gm Q15M PRN PO DECREASED GLUCOSE; Start 10/07/18 at 21:00 Dextrose (D50w Syringe) 25 ml Q15M PRN IV DECREASED GLUCOSE; Start 10/07/18 at 21:00 Dextrose (D50w Syringe) 50 ml Q15M PRN IV DECREASED GLUCOSE; Start 10/07/18 at 21:00 Glucagon (Glucagen) 1 mg Q15M PRN IM DECREASED GLUCOSE; Start 10/07/18 at 21:00 Glucose (Glutose) 15 gm Q15M PRN BUCCAL DECREASED GLUCOSE; Start 10/07/18 at 21:00 Ferric Sodium Gluconate Complex 125 mg/Sodium Chloride 110 ml @ 110 mls/hr DAILY@1300 IVPB Last administered on 10/10/18at 12:06; Admin Dose 110 MLS/HR; Start 10/08/18 at 13:00; Stop 10/12/18 at 13:59 Meropenem/Sodium Chloride 50 ml @ 100 mls/hr Q12 IVPB Last administered on 10/11/18at 10:02; Admin Dose 100 MLS/HR; Start 10/09/18 at 12:00 Collagenase (Santyl) 1 applic DAILY TOP Last administered on 10/11/18at 10:07; Admin Dose 1 APPLIC; Start 10/09/18 at 19:00 Dextrose/Sodium Chloride 1,000 ml @ 75 mls/hr [id number] IV Last administered on 10/10/18 11:08; Admin Dose 75 MLS/HR; Start 10/09/18 at 20:00 Multivitamins 10 ml/Dextrose/ Sodium Chloride 1,010 ml @ 75 mls/hr Q24H IV Last administered on 10/10/18at 17:14; Admin Dose 75 MLS/HR; Start 10/10/18 at 17:00 Sodium Hypochlorite (Dakins Diluted (40)) 1 applic DAILY TP Last administered on 10/11/18at 09:00; Admin Dose 1 APPLIC; Start 10/11/18 at 09:00 Amiodarone HCl (Cordarone) 200 mg DAILY PO Last administered on 10/11/18at 10:09; Admin Dose 200 MG; Start 10/11/18 at 09:00 Caspofungin 50 mg/ Sodium Chloride 250 ml @ 250 mls/hr Q24H IVPB ; Start 10/12/18 at 11:00 Caspofungin 70 mg/ Sodium Chloride 250 ml @ 250 mls/hr ONCE ONCE IVPB ; Start 10/11/18 at 10:30; Stop 10/11/18 at 11:29 Quetiapine Fumarate (Seroquel) 25 mg BID@0900,1200 PO ; Start 10/11/18 at 12:00 Quetiapine Fumarate (Seroquel) 50 mg HS PO ; Start 10/11/18 at 21:00 ALICIA HERNANDEZ Oct 11, 2018 11:04
[2018-10-11 11:08] VITALS: BP 126/54; PULSE 89; RESP 19
[2018-10-11] MEDS: DEXTROSE 5%-0.45% NACL 1,000 ML IV SCH (11:55)
--- NOTE | 2018-10-11 12:47 | CONS ---
Assessment/Plan Assessment/Plan Assessment/Plan (Daily) 1. acute hyperkalemia due to BRANDON -RESOLVED 2 .acute kidney injury on CKD III due to ATN from sepsis + prerenal azotemia 3. Sepsis due to UTI and PNA 4. acute UTI 5. H/o partial nephrectomy possibly due to RCC as per family 6. H/o CAD s/p CABG , Cardiomyopathy with EF 50%, Chronic Systolic HF, 7. H/O HTN 8. h/o DM II 9. Paroxysmal atrial fibrillation 10. acute encephalpahty possibly due to uremic and metabolic encephalopathy 11. 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 H/o HTN 13. H/o DM II 14. h/O paroxysmal atrial fibrillation Plan: IV abx Cefepime and IV vancomycin for sepsis, Renally dose all abx and monitor electrolytes BUN/Cr improved to 37/1.1, other electrolytes stable , on IV iron for iron deficiency anemia IVF D51/2 NS at 75 cc/hr Amiodarone for rate control, Renal US showed No hydronephrosis. No nephrolithiasis.- 3.1 x 2 x 2.1 centimeter hypoechoic lesion arising from the lower pole of the left kidney. Follow-up to exclude neoplasm. There is echogenic material layering within the dependent portion of the bladder. Follow up to exclude infectious, inflammatory, or neoplastic process. Atrophic left kidney - will MRI abdomen and pelvis without contrast to better assess for Left kidney lesion - Family refused MRI. dw dr Vania cody. will follow up Patient seen in collaboration with Dr Vania Cody Consultation Date/Type/Reason Admit Date/Time Oct 07, 2018 at 03:37 Initial Consult Date 10/10/18 Type of Consult NEPHROLOGY Reason for Consultation BRANDON ON CKD Requesting Provider: JAGJIT MONTES MD Date/Time of Note DATE: 10/11/18 TIME: 12:46 24 HR Interval Summary Constitutional: requiring O2 Exam/Review of Systems Exam Vitals Vital Signs Date Temp Pulse Resp B/P (MAP) Pulse Ox O2 O2 Flow FiO2 Time Delivery Rate 10/11/18 97.9 89 19 126/54 96 11:08 (78) 10/08/18 Room Air 23:58 Constitutional: alert, well developed Psych: nl mood/affect Eyes: nl lids, nl sclera ENMT: nl external ears & nose Respiratory: clear to auscultation Cardiovascular: nl pulses, other (s1s2) Gastrointestinal: soft, non-tender Musculoskeletal: nl extremities to inspection Extremities: normal pulses Neurological: confused Results Result Diagram: 10/11/18 0644 10/11/18 0644 Results 24hrs Laboratory Tests Test 10/10/18 18:47 10/11/18 06:43 10/11/18 06:44 10/11/18 08:32 Erythrocyte 22 Sedimentation Rate C-Reactive Protein 1.8 H Procalcitonin 0.16 H Ammonia < 9 L White Blood Count 8.9 Red Blood Count 3.38 L Hemoglobin 9.0 L Hematocrit 27.6 L Mean Corpuscular 81.7 L Volume Mean Corpuscular 26.6 L Hemoglobin Mean Corpuscular 32.6 Hemoglobin Concent Red Cell 16.6 H Distribution Width Platelet Count 303 Mean Platelet Volume 9.9 Immature 0.900 H Granulocytes % Neutrophils % 70.6 Lymphocytes % 18.2 Monocytes % 8.8 Eosinophils % 1.3 Basophils % 0.2 Nucleated Red Blood 0.0 Cells % Immature 0.080 H Granulocytes # Neutrophils # 6.3 Lymphocytes # 1.6 Monocytes # 0.8 Eosinophils # 0.1 Basophils # 0.0 Nucleated Red Blood 0.0 Cells # Sodium Level 137 Potassium Level 4.0 Chloride Level 108 Carbon Dioxide Level 23 Anion Gap 6 Blood Urea Nitrogen 37 H Creatinine 1.13 H Est Glomerular Filtrat Rate mL/min Glucose Level 251 H Calcium Level 9.1 Total Bilirubin 0.3 Direct Bilirubin 0.00 Indirect Bilirubin 0.3 Aspartate Amino 37 Transf (AST/SGOT) Alanine 184 H Aminotransferase (AL T/SGPT) Alkaline Phosphatase 100 Total Protein 4.9 L Albumin 2.3 L Globulin 2.60 Albumin/Globulin 0.88 Ratio Bedside Glucose 280 H Test 10/11/18 11:39 Bedside Glucose 210 Medications Medication Current Medications Allopurinol (Zyloprim) 100 mg BID PO Last administered on 10/11/18at 10:09; Admin Dose 100 MG; Start 10/07/18 at 21:00 Aspirin (Halfprin) 81 mg DAILY PO Last administered on 10/08/18at 08:14; Admin Dose 81 MG; Start 10/08/18 at 09:00; Status Hold Carvedilol (Coreg) 3.125 mg BID PO Last administered on 10/10/18at 20:29; Admin Dose 3.125 MG; Start 10/07/18 at 21:00 Docusate Sodium (Colace) 100 mg TID PO Last administered on 10/11/18at 10:07; Admin Dose 100 MG; Start 10/07/18 at 21:00 Pantoprazole (Protonix Tab) 40 mg DAILY@06 PO Last administered on 10/08/18at 06:43; Admin Dose 40 MG; Start 10/08/18 at 06:00 Ferrous Sulfate (Ferrous Sulfate (Ec)) 325 mg DAILY PO Last administered on 10/11/18at 10:07; Admin Dose 325 MG; Start 10/08/18 at 09:00 IV Flush (NS 3 ml) 3 ml PER PROTOCOL IV ; Start 10/07/18 at 12:30 Ondansetron HCl (Zofran Inj) 4 mg Q6H PRN IV NAUSEA/VOMITING; Start 10/07/18 at 12:30 Acetaminophen (Tylenol Tab) 650 mg Q6H PRN PO .PAIN 1-3 OR TEMP; Start 10/07/18 at 12:30 Acetaminophen/ Hydrocodone Bitart ([place] (5/325)) 1 tab Q6H PRN PO .PAIN 4-6 Last administered on 10/08/18at 09:41; Admin Dose 1 TAB; Start 10/07/18 at 12:30 Clonidine (Catapres) 0.1 mg BID PO Last administered on 10/11/18at 10:10; Admin Dose 0.1 MG; Start 10/07/18 at 22:00 Diagnostic Test (Pha) (Accu-Chek) 1 ea 02 XX Last administered on 10/10/18at 02:05; Admin Dose 1 EA; Start 10/08/18 at 02:00 Insulin Aspart (Novolog Insulin Pen) NOVOLOG *MILD* ALGORITHM WITH MEALS BEDTIME SC Last administered on 10/11/18at 11:47; Admin Dose 2 UNIT; Start 10/07/18 at 21:00 Miscellaneous Information 1 ea NOTE XX ; Start 10/07/18 at 21:00 Glucose (Glutose) 15 gm Q15M PRN PO DECREASED GLUCOSE; Start 10/07/18 at 21:00 Glucose (Glutose) 22.5 gm Q15M PRN PO DECREASED GLUCOSE; Start 10/07/18 at 21:00 Dextrose (D50w Syringe) 25 ml Q15M PRN IV DECREASED GLUCOSE; Start 10/07/18 at 21:00 Dextrose (D50w Syringe) 50 ml Q15M PRN IV DECREASED GLUCOSE; Start 10/07/18 at 21:00 Glucagon (Glucagen) 1 mg Q15M PRN IM DECREASED GLUCOSE; Start 10/07/18 at 21:00 Glucose (Glutose) 15 gm Q15M PRN BUCCAL DECREASED GLUCOSE; Start 10/07/18 at 21:00 Ferric Sodium Gluconate Complex 125 mg/Sodium Chloride 110 ml @ 110 mls/hr ALEXANDRU LY@1300 IVPB Last administered on 10/10/18at 12:06; Admin Dose 110 MLS/HR; Start 10/08/18 at 13:00; Stop 10/12/18 at 13:59 Meropenem/Sodium Chloride 50 ml @ 100 mls/hr Q12 IVPB Last administered on 10/11/18at 10:02; Admin Dose 100 MLS/HR; Start 10/09/18 at 12:00 Collagenase (Santyl) 1 applic DAILY TOP Last administered on 10/11/18at 10:07; Admin Dose 1 APPLIC; Start 10/09/18 at 19:00 Dextrose/Sodium Chloride 1,000 ml @ 75 mls/hr [id number] IV Last administered on 10/10/18at 11:08; Admin Dose 75 MLS/HR; Start 10/09/18 at 20:00 Multivitamins 10 ml/Dextrose/ Sodium Chloride 1,010 ml @ 75 mls/hr Q24H IV Last administered on 10/10/18at 17:14; Admin Dose 75 MLS/HR; Start 10/10/18 at 17:00 Sodium Hypochlorite (Dakins Diluted (/40)) 1 applic DAILY TP Last administered on 10/11/18at 09:00; Admin Dose 1 APPLIC; Start 10/11/18 at 09:00 Amiodarone HCl (Cordarone) 200 mg DAILY PO Last administered on 10/11/18at 10:09; Admin Dose 200 MG; Start 10/11/18 at 09:00 Caspofungin 50 mg/ Sodium Chloride 250 ml @ 250 mls/hr Q24H IVPB ; Start 10/12/18 at 11:00 Quetiapine Fumarate (Seroquel) 25 mg BID@0900,1200 PO ; Start 10/11/18 at 12:00 Quetiapine Fumarate (Seroquel) 50 mg HS PO ; Start 10/11/18 at 21:00 ELIZA HECTOR Oct 11, 2018 12:47
--- NOTE | 2018-10-11 13:19 | PN ---
"Date/Time of Note Date/Time of Note DATE: 10/11/18 TIME: : Assessment/Plan Lines/Catheters IV Catheter Type (from Nrs): Peripheral IV Assessment/Plan Chief Complaint/Hosp Course 1. right buttock wound: -debridement as needed -local care -frequent turning and off-loading -low air loss mattress -vitamin c -short term zinc -optimize nutrition -foot wounds per podiatry > ct of foot pending r/o osteo -calf wound per vascular 2. UTI: -abx per sensitivity -frequent bladder emptying/cath care 3. BRANDON: hypoechoic lesion left kidney, possible neoplasm; hx of renal ca and nephrectomy -judicious fluids -limit nephrotoxic meds -armenta for neoplasm>per medical team 4. Microcytic hypochromic anemia: sp prbc tx -monitor -transfuse as needed 5. Obesity bmi 31 -diet and exercise optimization -encourage weight loss 6. Poor appetite: -supportive -treat infections 7. hepatic steatosis: -wt loss -medical fu Thank you. Patient seen and examined in collaboration with Dr. Isaac Erwin. Subjective 24 Hr Interval Summary No fevers, chills, sob, congested cough, cp, palpitations, green, dizziness, n/v/d/dysuria. Exam/Review of Systems Vital Signs Vitals Vital Signs Date Temp Pulse Resp B/P (MAP) Pulse Ox O2 O2 Flow FiO2 Time Delivery Rate 10/13/18 97.6 64 18 146/64 98 07:56 (91) 10/13/18 Nasal 05:31 Cannula Intake and Output 10/12/18 10/12/18 10/13/18 1515:00 23:00 07:00 IntakeIntake Total 300 ml 100 ml OutputOutput Total 1000 ml BalanceBalance 300 ml -1000 ml 100 ml Exam Free Text/Dictation Constitutional: alert; somnolent No oriented (confused) Psych: anxiety Head: normocephalic, atraumatic Eyes: nl conjunctiva, EOMI, nl lids, nl sclera ENMT: nl external ears & nose, nl nasal mucosa & septum, mucosa pink and moist Neck: supple, non-tender Respiratory: normal air movement; No congested cough Cardiovascular: regular rate and rhythm, nl pulses; No edema Gastrointestinal: soft, non-tender; No distended, No rebound or guarding Genitourinary - Female: nl external genitalia Musculoskeletal: nl extremities to inspection, muscle weakness (gen weakness) Extremities: normal pulses; No edema, No pitting pedal edema Neurological: nl speech; No nl mental status (forgetful), No nl strength (gen weakness) Skin: other (Multiple wounds: right buttock:min slough, no periwound erythema/drainage/odor | Left calf:min slough, min periwound erythema | Bilateral foot wounds); No rash or lesions Results Result Diagram: 10/13/18 0724 10/13/18 0724 JUSTINE GUEVARA NP Oct 11, 2018 13:19"
--- NOTE | 2018-10-11 14:44 | CONS ---
Assessment/Plan Assessment/Plan Assessment/Plan (Daily) 82 yo female with hl/o anemia No signs GI bleeding per RN. She had been agitated yesterday which was not baseline for her. She was started on seroquel. Lethargic. When I try to examine her she starts to scream. 1. Urinary tract infection. 2. Sepsis. 3. Status post coronary artery bypass graft. 4. Peripheral vascular disease. 5. Atrial fibrillation. 6. Status post surgery for renal cell carcinoma 8 years ago. 7. Diabetes. 8. Hypertension. 9. Severe anemia. -IV iron 10. Transaminitis secondary to steatohepatitis -liver us 11. Elevated CEA: 24.1 PLAN: stat AM labs Monitor LFTs US of liver, so steatohepatitis and prominent common hepatic duct IV iron Patient definitely needs both EGD and colonoscopy for loss of appetite, weight loss, anemia, high CEA 24. Discussed with the son and has agreed for the procedure. Consultation Date/Type/Reason Admit Date/Time Oct 07, 2018 at 03:37 Initial Consult Date 10/07/18 Requesting Provider: JAGJIT MONTES MD Date/Time of Note DATE: 10/11/18 TIME: 14:44 24 HR Interval Summary Constitutional: no complaints, improved Exam/Review of Systems Exam Vitals Vital Signs Date Temp Pulse Resp B/P (MAP) Pulse Ox O2 O2 Flow FiO2 Time Delivery Rate 10/11/18 97.9 89 19 126/54 96 11:08 (78) 10/08/18 Room Air 23:58 Constitutional: alert, oriented, well developed Psych: no complaints, nl mood/affect Head: normocephalic, atraumatic Eyes: nl conjunctiva, EOMI, nl lids, nl sclera, PERRL ENMT: nl external ears & nose, nl lips & teeth, nl nasal mucosa & septum Neck: supple, non-tender Respiratory: clear to auscultation, normal air movement Cardiovascular: regular rate and rhythm, nl pulses Gastrointestinal: soft, nl liver, spleen, non-tender Musculoskeletal: nl extremities to inspection, nl gait and stance Extremities: normal pulses Neurological: MOUNTAIN GUIDE II-XII intact, nl mental status, nl speech, nl strength Skin: nl turgor; No rash or lesions Lymph: nl lymph nodes Results Result Diagram: 10/11/1844 10/11/18 0644 Results 24hrs Laboratory Tests Test 10/10/18 18:47 10/11/18 06:43 10/11/18 06:44 10/11/18 08:32 Erythrocyte 22 Sedimentation Rate C-Reactive Protein 1.8 H Procalcitonin 0.16 H Ammonia < 9 L White Blood Count 8.9 Red Blood Count 3.38 L Hemoglobin 9.0 L Hematocrit 27.6 L Mean Corpuscular 81.7 L Volume Mean Corpuscular 26.6 L Hemoglobin Mean Corpuscular 32.6 Hemoglobin Concent Red Cell 16.6 H Distribution Width Platelet Count 303 Mean Platelet Volume 9.9 Immature 0.900 H Granulocytes % Neutrophils % 70.6 Lymphocytes % 18.2 Monocytes % 8.8 Eosinophils % 1.3 Basophils % 0.2 Nucleated Red Blood 0.0 Cells % Immature 0.080 H Granulocytes # Neutrophils # 6.3 Lymphocytes # 1.6 Monocytes # 0.8 Eosinophils # 0.1 Basophils # 0.0 Nucleated Red Blood 0.0 Cells # Sodium Level 137 Potassium Level 4.0 Chloride Level 108 Carbon Dioxide Level 23 Anion Gap 6 Blood Urea Nitrogen 37 H Creatinine 1.13 H Est Glomerular Filtrat Rate mL/min Glucose Level 251 H Calcium Level 9.1 Total Bilirubin 0.3 Direct Bilirubin 0.00 Indirect Bilirubin 0.3 Aspartate Amino 37 Transf (AST/SGOT) Alanine 184 H Aminotransferase (AL T/SGPT) Alkaline Phosphatase 100 Total Protein 4.9 L Albumin 2.3 L Globulin 2.60 Albumin/Globulin 0.88 Ratio Bedside Glucose 280 H Test 10/11/18 11:39 Bedside Glucose 210 Medications Medication Current Medications Allopurinol (Zyloprim) 100 mg BID PO Last administered on 10/11/18at 10:09; Admin Dose 100 MG; Start 10/07/18 at 21:00 Aspirin (Halfprin) 81 mg DAILY PO Last administered on 10/08/18 08:14; Admin Dose 81 MG; Start 10/08/18 at 09:00; Status Hold Carvedilol (Coreg) 3.125 mg BID PO Last administered on 10/10/18at 20:29; Admin Dose 3.125 MG; Start 10/07/18 at 21:00 Docusate Sodium (Colace) 100 mg TID PO Last administered on 10/11/18at 10:07; Admin Dose 100 MG; Start 10/07/18 at 21:00 Pantoprazole (Protonix Tab) 40 mg DAILY@06 PO Last administered on 10/08/18at 06:43; Admin Dose 40 MG; Start 10/08/18 at 06:00 Ferrous Sulfate (Ferrous Sulfate (Ec)) 325 mg DAILY PO Last administered on 10/11/18at 10:07; Admin Dose 325 MG; Start 10/08/18 at 09:00 IV Flush (NS 3 ml) 3 ml PER PROTOCOL IV ; Start 10/07/18 at 12:30 Ondansetron HCl (Zofran Inj) 4 mg Q6H PRN IV NAUSEA/VOMITING; Start 10/07/18 at 12:30 Acetaminophen (Tylenol Tab) 650 mg Q6H PRN PO .PAIN 1-3 OR TEMP; Start 10/07/18 at 12:30 Acetaminophen/ Hydrocodone Bitart ([place] (5/325)) 1 tab Q6H PRN PO .PAIN 4-6 Last administered on 10/08/18at 09:41; Admin Dose 1 TAB; Start 10/07/18 at 12:30 Clonidine (Catapres) 0.1 mg BID PO Last administered on 10/11/18at 10:10; Admin Dose 0.1 MG; Start 10/07/18 at 22:00 Diagnostic Test (Pha) (Accu-Chek) 1 ea 02 XX Last administered on 10/10/18at 02:05; Admin Dose 1 EA; Start 10/08/18 at 02:00 Insulin Aspart (Novolog Insulin Pen) NOVOLOG *MILD* ALGORITHM WITH MEALS BEDTIME SC Last administered on 10/11/18at 11:47; Admin Dose 2 UNIT; Start 10/07/18 at 21:00 Miscellaneous Information 1 ea NOTE XX ; Start 10/07/18 at 21:00 Glucose (Glutose) 15 gm Q15M PRN PO DECREASED GLUCOSE; Start 10/07/18 at 21:00 Glucose (Glutose) 22.5 gm Q15M PRN PO DECREASED GLUCOSE; Start 10/07/18 at 21:00 Dextrose (D50w Syringe) 25 ml Q15M PRN IV DECREASED GLUCOSE; Start 10/07/18 at 21:00 Dextrose (D50w Syringe) 50 ml Q15M PRN IV DECREASED GLUCOSE; Start 10/07/18 at 21:00 Glucagon (Glucagen) 1 mg Q15M PRN IM DECREASED GLUCOSE; Start 10/07/18 at 21:00 Glucose (Glutose) 15 gm Q15M PRN BUCCAL DECREASED GLUCOSE; Start 10/07/18 at 21: 00 Ferric Sodium Gluconate Complex 125 mg/Sodium Chloride 110 ml @ 110 mls/hr DAILY@1300 IVPB Last administered on 10/10/18at 12:06; Admin Dose 110 MLS/HR; Start 10/08/18 at 13:00; Stop 10/12/18 at 13:59 Meropenem/Sodium Chloride 50 ml @ 100 mls/hr Q12 IVPB Last administered on 10/11/18at 10:02; Admin Dose 100 MLS/HR; Start 10/09/18 at 12:00 Collagenase (Santyl) 1 applic DAILY TOP Last administered on 10/11/18at 10:07; Admin Dose 1 APPLIC; Start 10/09/18 at 19:00 Dextrose/Sodium Chloride 1,000 ml @ 75 mls/hr [id number] IV Last administered on 10/10/18at 11:08; Admin Dose 75 MLS/HR; Start 10/09/18 at 20:00 Multivitamins 10 ml/Dextrose/ Sodium Chloride 1,010 ml @ 75 mls/hr Q24H IV Last administered on 10/10/18at 17:14; Admin Dose 75 MLS/HR; Start 10/10/18 at 17:00 Sodium Hypochlorite (Dakins Diluted (1/40)) 1 applic DAILY TP Last administered on 10/11/18at 09:00; Admin Dose 1 APPLIC; Start 10/11/18 at 09:00 Amiodarone HCl (Cordarone) 200 mg DAILY PO Last administered on 10/11/18at 10:09 ; Admin Dose 200 MG; Start 10/11/18 at 09:00 Caspofungin 50 mg/ Sodium Chloride 250 ml @ 250 mls/hr Q24H IVPB ; Start 10/12/18 at 11:00 Quetiapine Fumarate (Seroquel) 25 mg BID@0900,1200 PO ; Start 10/11/18 at 12:00 Quetiapine Fumarate (Seroquel) 50 mg HS PO ; Start 10/11/18 at 21:00 VELIA CASTRO MD Oct 11, 2018 14:44
[2018-10-11] MEDS ORDERED: BISACODYL (EC) 5 MG TAB PO ONE (15:00)
[2018-10-11 15:04] VITALS: BP 127/53; PULSE 59; RESP 18
[2018-10-11] MEDS: SOD FERRIC GLUC COMPLX 125 MG in SOD CHLORIDE 0.9% 100 ML IVPB SCH (15:11)
[2018-10-11] MEDS: MULTIVITAMINS 10 ML in DEXTROSE 5%-0.45% NACL 1,000 ML IV SCH (17:03)
[2018-10-11] MEDS: HYDROCODONE/APAP (5/325) TAB PO PRN (17:04)
[2018-10-11 20:41] VITALS: BP 120/58; PULSE 59; RESP 18
[2018-10-11] MEDS: ACETAMINOPHEN 325 MG TAB PO PRN (21:02)
[2018-10-12 00:28] VITALS: BP 116/58; PULSE 58; RESP 18
[2018-10-12] MEDS: DEXTROSE 5%-0.45% NACL 1,000 ML IV SCH ×2 (01:20→14:40)
[2018-10-12] MEDS: ACCU-CHEK XX SCH (02:00)
[2018-10-12 04:15] VITALS: BP 141/61; PULSE 59; RESP 18
[2018-10-12] MEDS: PANTOPRAZOLE (EC) 40 MG TAB PO SCH (06:13)
[2018-10-12 07:29] VITALS: BP 131/78; PULSE 67; RESP 18
[2018-10-12] MEDS: INSULIN ASPART [NOVOLOG] 3 ML PEN SC SCH ×4 (08:27→21:13)
[2018-10-12] MEDS: DAKINS 0.0125%(1/40) 473 ML SOLUTION TP SCH (09:00)
[2018-10-12] MEDS: COLLAGENASE 5 GM (UD JAR) TOP SCH (09:00)
--- NOTE | 2018-10-12 09:58 | CONS ---
Assessment/Plan Assessment/Plan Assessment/Plan (Daily) 1. acute hyperkalemia due to BRANDON -RESOLVED 2 .acute kidney injury on CKD III due to ATN from sepsis + prerenal azotemia 3. Sepsis due to UTI and PNA 4. acute UTI 5. H/o partial nephrectomy possibly due to RCC as per family 6. H/o CAD s/p CABG , Cardiomyopathy with EF 50%, Chronic Systolic HF, 7. H/O HTN 8. h/o DM II 9. Paroxysmal atrial fibrillation 10. acute encephalpahty possibly due to uremic and metabolic encephalopathy 11. 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 H/o HTN 13. H/o DM II 14. h/O paroxysmal atrial fibrillation Plan: IV abx Cefepime and IV vancomycin for sepsis, Renally dose all abx and monitor electrolytes BUN/Cr improved to 37/1.1, other electrolytes stable , on IV iron for iron deficiency anemia IVF D51/2 NS at 75 cc/hr Amiodarone for rate control, Renal US showed No hydronephrosis. No nephrolithiasis.- 3.1 x 2 x 2.1 centimeter hypoechoic lesion arising from the lower pole of the left kidney. Follow-up to exclude neoplasm. There is echogenic material layering within the dependent portion of the bladder. Follow up to exclude infectious, inflammatory, or neoplastic process. Atrophic left kidney - will MRI abdomen and pelvis without contrast to better assess for Left kidney lesion - Family refused MRI. dw dr Vania cody. will follow up Patient seen in collaboration with Dr Vania Cody Consultation Date/Type/Reason Admit Date/Time Oct 07, 2018 at 03:37 Initial Consult Date 10/10/18 Type of Consult NEPHROLOGY Reason for Consultation BRANDON ON CKD Requesting Provider: JAGJIT MONTES MD Date/Time of Note DATE: 10/12/18 TIME: 09:57 24 HR Interval Summary Free Text/Dictation Confused NAD no events overnight dw staff Exam/Review of Systems Exam Vitals Vital Signs Date Temp Pulse Resp B/P (MAP) Pulse Ox O2 O2 Flow FiO2 Time Delivery Rate 10/12/18 98.0 67 18 131/78 98 07:29 (95) 10/12/18 Room Air 04:15 Intake and Output 10/11/18 10/11/18 10/12/18 1515:00 23:00 07:00 IntakeIntake Total 50 ml BalanceBalance 50 ml Constitutional: alert, well developed Psych: nl mood/affect Eyes: nl lids, nl sclera ENMT: nl external ears & nose Neck: non-tender Respiratory: clear to auscultation Cardiovascular: nl pulses, other (s1s2) Gastrointestinal: soft, non-tender Musculoskeletal: nl extremities to inspection Extremities: normal pulses Results Result Diagram: 10/11/1844 10/11/18 0644 Results 24hrs Laboratory Tests Test 10/11/18 11:39 10/11/18 17:13 10/11/18 21:06 10/12/18 02:44 Bedside Glucose 210 190 198 217 Test 10/12/18 08:23 Bedside Glucose 229 H Medications Medication Current Medications Allopurinol (Zyloprim) 100 mg BID PO Last administered on 10/11/18 21:02; Admin Dose 100 MG; Start 10/07/18 at 21:00 Aspirin (Halfprin) 81 mg DAILY PO Last administered on 10/08/18 08:14; Admin Dose 81 MG; Start 10/08/18 at 09:00; Status Hold Carvedilol (Coreg) 3.125 mg BID PO Last administered on 10/11/18 21:03; Admin Dose 3.125 MG; Start 10/07/18 at 21:00 Docusate Sodium (Colace) 100 mg TID PO Last administered on 10/11/18 21:02; Admin Dose 100 MG; Start 10/07/18 at 21:00 Pantoprazole (Protonix Tab) 40 mg DAILY@06 PO Last administered on 10/12/18 06:13; Admin Dose 40 MG; Start 10/08/18 at 06:00 Ferrous Sulfate (Ferrous Sulfate (Ec)) 325 mg DAILY PO Last administered on 10/11/18 10:07; Admin Dose 325 MG; Start 10/08/18 at 09:00 IV Flush (NS 3 ml) 3 ml PER PROTOCOL IV ; Start 10/07/18 at 12:30 Ondansetron HCl (Zofran Inj) 4 mg Q6H PRN IV NAUSEA/VOMITING; Start 10/07/18 at 12:30 Acetaminophen (Tylenol Tab) 650 mg Q6H PRN PO .PAIN 1-3 OR TEMP Last administered on 7/13/19at 21:02; Admin Dose 650 MG; Start 10/07/18 at 12:30 Acetaminophen/ Hydrocodone Bitart ([place] (5/325)) 1 tab Q6H PRN PO .PAIN 4-6 Last administered on 10/11/18at 17:04; Admin Dose 1 TAB; Start 10/07/18 at 12:30 Clonidine (Catapres) 0.1 mg BID PO Last administered on 10/11/18at 21:04; Admin Dose 0.1 MG; Start 10/07/18 at 22:00 Diagnostic Test (Pha) (Accu-Chek) 1 ea 02 XX Last administered on 10/12/18at 02:00; Admin Dose 1 EA; Start 10/08/18 at 02:00 Insulin Aspart (Novolog Insulin Pen) NOVOLOG *MILD* ALGORITHM WITH MEALS BEDTIME SC Last administered on 10/12/18at 08:27; Admin Dose 3 UNIT; Start 10/07/18 at 21:00 Miscellaneous Information 1 ea NOTE XX ; Start 10/07/18 at 21:00 Glucose (Glutose) 15 gm Q15M PRN PO DECREASED GLUCOSE; Start 10/07/18 at 21:00 Glucose (Glutose) 22.5 gm Q15M PRN PO DECREASED GLUCOSE; Start 10/07/18 at 21:00 Dextrose (D50w Syringe) 25 ml Q15M PRN IV DECREASED GLUCOSE; Start 10/07/18 at 21:00 Dextrose (D50w Syringe) 50 ml Q15M PRN IV DECREASED GLUCOSE; Start 10/07/18 at 21:00 Glucagon (Glucagen) 1 mg Q15M PRN IM DECREASED GLUCOSE; Start 10/07/18 at 21:00 Glucose (Glutose) 15 gm Q15M PRN BUCCAL DECREASED GLUCOSE; Start 10/07/18 at 21:00 Ferric Sodium Gluconate Complex 125 mg/Sodium Chloride 110 ml @ 110 mls/hr DAILY@1300 IVPB Last administered on 10/11/18at 15:11; Admin Dose 110 MLS/HR; Start 10/08/18 at 13:00; Stop 10/12/18 at 13:59 Meropenem/Sodium Chloride 50 ml @ 100 mls/hr Q12 IVPB Last administered on 10/11/18at 21:01; Admin Dose 100 MLS/HR; Start 10/09/18 at 12:00 Collagenase (Santyl) 1 applic DAILY TOP Last administered on 10/11/18at 10:07; Admin Dose 1 APPLIC; Start 10/09/18 at 19:00 Dextrose/Sodium Chloride 1,000 ml @ 75 mls/hr [id number] IV Last administered on 10/10/18at 11:08; Admin Dose 75 MLS/HR; Start 10/09/18 at 20:00 Multivitamins 10 ml/Dextrose/ Sodium Chloride 1,010 ml @ 75 mls/hr Q24H IV Last administered on 10/11/18at 17:03; Admin Dose 75 MLS/HR; Start 10/10/18 at 17:00 Sodium Hypochlorite (Dakins Diluted ()) 1 applic DAILY TP Last administered on 10/11/18 09:00; Admin Dose 1 APPLIC; Start 10/11/18 at 09:00 Amiodarone HCl (Cordarone) 200 mg DAILY PO Last administered on 10/11/18 10:09; Admin Dose 200 MG; Start 10/11/18 at 09:00 Caspofungin 50 mg/ Sodium Chloride 250 ml @ 250 mls/hr Q24H IVPB ; Start 10/12/18 at 11:00 Quetiapine Fumarate (Seroquel) 25 mg BID@0900,1200 PO Last administered on 10/11/18at 15:11; Admin Dose 25 MG; Start 10/11/18 at 12:00 Quetiapine Fumarate (Seroquel) 50 mg HS PO Last administered on 10/11/18at 21:02; Admin Dose 50 MG; Start 10/11/18 at 21:00 Polyethylene Glycol/ Electrolytes (Golytely) 4,000 ml ONCE ONCE PO ; Start 10/12/18 at 15:00; Stop 10/12/18 at 15:01 ELIZA HECTOR Oct 12, 2018 09:58
[2018-10-12] MEDS: MEROPENEM 500MG/50 ML (PMX) 50 ML IVPB SCH ×2 (10:09→21:15)
[2018-10-12] MEDS: ALLOPURINOL 100 MG TAB PO SCH ×2 (10:11→21:00)
[2018-10-12] MEDS: FERROUS SULFATE (EC) 325 MG TAB PO SCH (10:11)
[2018-10-12] MEDS: DOCUSATE SODIUM 100 MG CAP PO SCH ×3 (10:11→21:00)
[2018-10-12] MEDS: AMIODARONE 200 MG TAB PO SCH (10:12)
[2018-10-12] MEDS: QUETIAPINE 25 MG TAB PO SCH ×3 (10:22→21:00)
--- NOTE | 2018-10-12 10:39 | PN ---
Date/Time of Note Date/Time of Note DATE: 10/12/18 TIME: 10:38 Assessment/Plan VTE Prophylaxis Risk score (from Ns)>0 risk: 4 SCD applied (from Ns): No SCD contraindicated: other Pharmacological prophylaxis: LMWH Lines/Catheters IV [facility] Peripheral IV Assessment/Plan Hospital Course -Anemia, history of emesis at home and loss of appetite. - Dr. Winkler is following in gastroenterology consultation. - SP 1 unit PRBC yesterday- pending CBC TODAY - Delerium - SP psych consult - Decreased po intake - per dietary; per family when her HGb drops; her appetite decreases and gets better with hgb improves -Sepsis secondary to urinary tract infection and possible early pneumonia. Continue antibiotics per ID. Dr. Elias is following in infection disease cons ultation. -Gram-negative rods UTI. -Hyperkalemia, resolved, status post treatment -Acute kidney injury, continue gentle hydration, monitor BUN and creatinine. Dr. Arreaga is following in nephrology consultation. -Hypertension -Systolic congestive heart failure. Dr. Chávez is following in cardiology consultation. -Cardiomyopathy with ejection fraction 50% -Atrial fibrillation, patient did not tolerate anticoagulation in the past due to bleeding and anemia, patient was on aspirin which is currently held due significant drop in hemoglobin. -Coronary artery disease, status post CABG -Diabetes mellitus type 2, continue Lantus and pre-meal NovoLog. -History of endocarditis, status post treatment -Sacral, right foot, and left garcia wounds. Continue current care per wound care recommendations. -History of left femoral artery thrombectomy, left garcia open wound. Dr. Dawson is asked to see patient in vascular surgery consultation for evaluation of left garcia wound. Result Diagram: 10/11/18 0644 10/11/18 0644 Results 24hrs Laboratory Tests Test 10/11/18 11:39 10/11/18 17:13 10/11/18 21:06 10/12/18 02:44 Bedside Glucose 210 190 198 217 Test 10/12/18 08:23 Bedside Glucose 229 H Subjective 24 Hr Interval Summary Free Text/Dictation Patient resting comfortably but responds by yelling when greeted verbally Exam/Review of Systems Exam Vitals Vital Signs Date Temp Pulse Resp B/P (MAP) Pulse Ox O2 O2 Flow FiO2 Time Delivery Rate 10/12/18 98.0 67 18 131/78 98 07:29 (95) 10/12/18 Room Air 04:15 Intake and Output 10/11/18 10/11/18 10/12/18 1515:00 23:00 07:00 IntakeIntake Total 50 ml BalanceBalance 50 ml Constitutional: well developed Head: normocephalic, atraumatic Neck: supple Respiratory: diminished breath sounds Cardiovascular: regular rate and rhythm Gastrointestinal: soft, non-tender Extremities: normal pulses Results Results 24hrs Laboratory Tests Test 10/11/18 11:39 10/11/18 17:13 10/11/18 21:06 10/12/18 02:44 Bedside Glucose 210 190 198 217 Test 10/12/18 08:23 Bedside Glucose 229 H Medications Medication Current Medications Allopurinol (Zyloprim) 100 mg BID PO Last administered on 10/12/18 10:11; Admin Dose 100 MG; Start 10/07/18 at 21:00 Aspirin (Halfprin) 81 mg DAILY PO Last administered on 10/08/18 08:14; Admin Dose 81 MG; Start 10/08/18 at 09:00; Status Hold Carvedilol (Coreg) 3.125 mg BID PO Last administered on 10/12/18 10:12; Admin Dose 3.125 MG; Start 10/07/18 at 21:00 Docusate Sodium (Colace) 100 mg TID PO Last administered on 10/12/18 10:11; Admin Dose 100 MG; Start 10/07/18 at 21:00 Pantoprazole (Protonix Tab) 40 mg DAILY@06 PO Last administered on 10/12/18at 06:13; Admin Dose 40 MG; Start 10/08/18 at 06:00 Ferrous Sulfate (Ferrous Sulfate (Ec)) 325 mg DAILY PO Last administered on 10/12/18 10:11; Admin Dose 325 MG; Start 10/08/18 at 09:00 IV Flush (NS 3 ml) 3 ml PER PROTOCOL IV ; Start 10/07/18 at 12:30 Ondansetron HCl (Zofran Inj) 4 mg Q6H PRN IV NAUSEA/VOMITING; Start 10/07/18 at 12:30 Acetaminophen (Tylenol Tab) 650 mg Q6H PRN PO .PAIN 1-3 OR TEMP Last administered on 10/11/18 21:02; Admin Dose 650 MG; Start 10/07/18 at 12:30 Acetaminophen/ Hydrocodone Bitart ([place] (5/325)) 1 tab Q6H PRN PO .PAIN 4-6 Last administered on 10/11/18at 17:04; Admin Dose 1 TAB; Start 10/07/18 at 12:30 Clonidine (Catapres) 0.1 mg BID PO Last administered on 10/12/18at 10:11; Admin Dose 0.1 MG; Start 10/07/18 at 22:00 Diagnostic Test (Pha) (Accu-Chek) 1 ea 02 XX Last administered on 10/12/18at 02:00; Admin Dose 1 EA; Start 10/08/18 at 02:00 Insulin Aspart (Novolog Insulin Pen) NOVOLOG *MILD* ALGORITHM WITH MEALS BEDTIME SC Last administered on 10/12/18 08:27; Admin Dose 3 UNIT; Start 10/07/18 at 21:00 Miscellaneous Information 1 ea NOTE XX ; Start 10/07/18 at 21:00 Glucose (Glutose) 15 gm Q15M PRN PO DECREASED GLUCOSE; Start 10/07/18 at 21:00 Glucose (Glutose) 22.5 gm Q15M PRN PO DECREASED GLUCOSE; Start 10/07/18 at 21:00 Dextrose (D50w Syringe) 25 ml Q15M PRN IV DECREASED GLUCOSE; Start 10/07/18 at 21:00 Dextrose (D50w Syringe) 50 ml Q15M PRN IV DECREASED GLUCOSE; Start 10/07/18 at 21:00 Glucagon (Glucagen) 1 mg Q15M PRN IM DECREASED GLUCOSE; Start 10/07/18 at 21:00 Glucose (Glutose) 15 gm Q15M PRN BUCCAL DECREASED GLUCOSE; Start 10/07/18 at 21:00 Ferric Sodium Gluconate Complex 125 mg/Sodium Chloride 110 ml @ 110 mls/hr DAILY@1300 IVPB Last administered on 10/11/18at 15:11; Admin Dose 110 MLS/HR; Start 10/08/18 at 13:00; Stop 10/12/18 at 13:59 Meropenem/Sodium Chloride 50 ml @ 100 mls/hr Q12 IVPB Last administered on 10/12/18at 10:09; Admin Dose 100 MLS/HR; Start 10/09/18 at 12:00 Collagenase (Santyl) 1 applic DAILY TOP Last administered on 10/12/18at 09:00; Admin Dose 1 APPLIC; Start 10/09/18 at 19:00 Dextrose/Sodium Chloride 1,000 ml @ 75 mls/hr [id number] IV Last administered on 10/10/18at 11:08; Admin Dose 75 MLS/HR; Start 10/09/18 at 20:00 Multivitamins 10 ml/Dextrose/ Sodium Chloride 1,010 ml @ 75 mls/hr Q24H IV Last administered on 10/11/18at 17:03; Admin Dose 75 MLS/HR; Start 10/10/18 at 17:00 Sodium Hypochlorite (Dakins Diluted ()) 1 applic DAILY TP Last administered on 10/12/18at 09:00; Admin Dose 1 APPLIC; Start 10/11/18 at 09:00 Amiodarone HCl (Cordarone) 200 mg DAILY PO Last administered on 10/12/18at 10:12; Admin Dose 200 MG; Start 10/11/18 at 09:00 Caspofungin 50 mg/ Sodium Chloride 250 ml @ 250 mls/hr Q24H IVPB ; Start 10/12/18 at 11:00 Quetiapine Fumarate (Seroquel) 25 mg BID@0900,1200 PO Last administered on 10/12/18at 10:22; Admin Dose 25 MG; Start 10/11/18 at 12:00 Quetiapine Fumarate (Seroquel) 50 mg HS PO Last administered on 10/11/18at 21:02; Admin Dose 50 MG; Start 10/11/18 at 21:00 Polyethylene Glycol/ Electrolytes (Golytely) 4,000 ml ONCE ONCE PO ; Start 10/12/18 at 15:00; Stop 10/12/18 at 15:01 ALICIA HERNANDEZ Oct 12, 2018 10:39
[2018-10-12 11:39] VITALS: BP 135/71; PULSE 73; RESP 18
[2018-10-12] MEDS: CASPOFUNGIN 50 MG in SOD CHLORIDE 0.9% 250 ML IVPB SCH (12:21)
--- NOTE | 2018-10-12 13:16 | PN ---
"Date/Time of Note Date/Time of Note DATE: 10/12/18 TIME: 13:11 Assessment/Plan Lines/Catheters IV Catheter Type (from Nrs): Peripheral IV Assessment/Plan Chief Complaint/Hosp Course 1. right buttock wound: -debridement as needed -local care -frequent turning and off-loading -low air loss mattress -vitamin c -short term zinc -optimize nutrition -foot wounds per podiatry- already consulted -calf wound per vascular 2. UTI: -abx per sensitivity -frequent bladder emptying/cath care 3. BRANDON: hypoechoic lesion left kidney, possible neoplasm; hx of renal ca and nephrectomy -judicious fluids -limit nephrotoxic meds -armenta for neoplasm>per medical team 4. Microcytic hypochromic anemia: sp prbc tx -monitor -transfuse as needed 5. Obesity bmi 31 -diet and exercise optimization -encourage weight loss 6. Poor appetite: -supportive -treat infections 7. hepatic steatosis: -wt loss -medical fu Thank you. Patient seen and examined in collaboration with Dr. Isaac Erwin. Subjective 24 Hr Interval Summary Pending CT r/o osteo. No fevers, labored breathing, congested cough, vomiting, diarrhea, sz, rash. Exam/Review of Systems Vital Signs Vitals Vital Signs Date Temp Pulse Resp B/P (MAP) Pulse Ox O2 O2 Flow FiO2 Time Delivery Rate 10/13/18 97.6 64 18 146/64 98 07:56 (91) 10/13/18 Nasal 05:31 Cannula Intake and Output 10/12/18 10/12/18 10/13/18 1515:00 23:00 07:00 IntakeIntake Total 300 ml 100 ml OutputOutput Total 1000 ml BalanceBalance 300 ml -1000 ml 100 ml Exam Free Text/Dictation Constitutional: alert; No oriented (confused) Psych: anxiety Head: normocephalic, atraumatic Eyes: nl conjunctiva, EOMI, nl lids, nl sclera ENMT: nl external ears & nose, nl nasal mucosa & septum, mucosa pink and moist Neck: supple, non-tender Respiratory: normal air movement; No congested cough Cardiovascular: regular rate and rhythm, nl pulses; No edema Gastrointestinal: soft, non-tender; No distended, No rebound or guarding Genitourinary - Female: nl external genitalia Musculoskeletal: nl extremities to inspection, muscle weakness (gen weakness) Extremities: normal pulses; No edema, No pitting pedal edema Neurological: nl speech; No nl mental status (forgetful), No nl strength (gen weakness) Skin: other (Multiple wounds: right buttock:min slough, no periwound erythema/drainage/odor | Left calf:min slough, min periwounderythema | Bilateral foot wounds); No rash or lesions Results Result Diagram: 10/13/18 0724 10/11/18 0644 JUSTINE GUEVARA NP Oct 12, 2018 13:16"
--- NOTE | 2018-10-12 13:31 | CONS ---
Consultation Date/Type/Reason Admit Date/Time Oct 07, 2018 at 03:37 Initial Consult Date 10/10/18 Type of Consult SUBJECTIVE: Pt is awake, screaming, confused. No fevers. VS: stable T: 98.0 LABS: Reviewed. Microbiology: Blood cultures negative, urine culture + MDR Kleb, repeat cx + yeast Chest x-ray on admission revealed no evidence of CHF or pneumonia. Renal ultrasound revealed no hydronephrosis and no nephrolithiasis. 3.1 x 2 x 2.1 cm hypoechoic lesion left pole of the kidney questionable neoplasm Antimicrobials: Merrem and Cancidas Physical examination: GEN: Well-developed chronically ill-appearing wasted elderly woman, who is in no distress. HENT: Head atraumatic normocephalic; neck is supple PULM: chest rise symmetrical breath sounds diminished bases. Heart: S1-S2. Abdomen soft bowel sounds present. Extremities with dependent bilateral lower extremities edema Assessment: 1. Sepsis, present on admission 2. Gram-negative melvi/yeast UTI 3. Acute on chronic anemia 4. Coronary artery disease with a history of CABG 5. Echo dense structure seen by tricuspid valve, right atrium and IVC-[facility], vegetation versus tumor=== completed 6 weeks IV antibiotics> 6. History of renal cell carcinoma status post nephrectomy 7. Diabetes 8. R heel decub Plan: Clinically unchanged. R foot MRI ordered but son refusing. Arterial Doppler report noted. Podiatry recommendations and local wound care. Pain management. Requesting Provider: JAGJIT MONTES MD Date/Time of Note DATE: 10/12/18 TIME: 13:28 Exam/Review of Systems Exam Vitals Vital Signs Date Temp Pulse Resp B/P (MAP) Pulse Ox O2 O2 Flow FiO2 Time Delivery Rate 10/12/18 98.0 73 18 135/71 98 11:39 (92) 10/12/18 Room Air 04:15 Intake and Output 10/11/18 10/11/18 10/12/18 1515:00 23:00 07:00 IntakeIntake Total 50 ml BalanceBalance 50 ml Results Result Diagram: 10/11/18 0644 10/11/18 0644 Results 24hrs Laboratory Tests Test 10/11/18 17:13 10/11/18 21:06 10/12/18 02:44 10/12/18 08:23 Bedside Glucose 190 198 217 229 H Test 10/12/18 12:20 Bedside Glucose 213 Medications Medication Current Medications Allopurinol (Zyloprim) 100 mg BID PO Last administered on 10/12/18 10:11; Admin Dose 100 MG; Start 10/07/18 at 21:00 Aspirin (Halfprin) 81 mg DAILY PO Last administered on 10/08/18 08:14; Admin Dose 81 MG; Start 10/08/18 at 09:00; Status Hold Carvedilol (Coreg) 3.125 mg BID PO Last administered on 10/12/18 10:12; Admin Dose 3.125 MG; Start 10/07/18 at 21:00 Docusate Sodium (Colace) 100 mg TID PO Last administered on 10/12/18 10:11; Admin Dose 100 MG; Start 10/07/18 at 21:00 Pantoprazole (Protonix Tab) 40 mg DAILY@06 PO Last administered on 10/12/18 06:13; Admin Dose 40 MG; Start 10/08/18 at 06:00 Ferrous Sulfate (Ferrous Sulfate (Ec)) 325 mg DAILY PO Last administered on 10/12/18 10:11; Admin Dose 325 MG; Start 10/08/18 at 09:00 IV Flush (NS 3 ml) 3 ml PER PROTOCOL IV ; Start 10/07/18 at 12:30 Ondansetron HCl (Zofran Inj) 4 mg Q6H PRN IV NAUSEA/VOMITING; Start 10/07/18 at 12:30 Acetaminophen (Tylenol Tab) 650 mg Q6H PRN PO .PAIN 1-3 OR TEMP Last administered on 10/11/18 21:02; Admin Dose 650 MG; Start 10/07/18 at 12:30 Acetaminophen/ Hydrocodone Bitart ([place] (5/325)) 1 tab Q6H PRN PO .PAIN 4-6 Last administered on 10/11/18 17:04; Admin Dose 1 TAB; Start 10/07/18 at 12:30 Clonidine (Catapres) 0.1 mg BID PO Last administered on 10/12/18 10:11; Admin Dose 0.1 MG; Start 10/07/18 at 22:00 Diagnostic Test (Pha) (Accu-Chek) 1 ea 02 XX Last administered on 10/12/18 02:00; Admin Dose 1 EA; Start 10/08/18 at 02:00 Insulin Aspart (Novolog Insulin Pen) NOVOLOG *MILD* ALGORITHM WITH MEALS BEDTIME SC Last administered on 10/12/18at 12:26; Admin Dose 3 UNIT; Start 10/07/18 at 21:00 Miscellaneous Information 1 ea NOTE XX ; Start 10/07/18 at 21:00 Glucose (Glutose) 15 gm Q15M PRN PO DECREASED GLUCOSE; Start 10/07/18 at 21:00 Glucose (Glutose) 22.5 gm Q15M PRN PO DECREASED GLUCOSE; Start 10/07/18 at 21:00 Dextrose (D50w Syringe) 25 ml Q15M PRN IV DECREASED GLUCOSE; Start 10/07/18 at 21:00 Dextrose (D50w Syringe) 50 ml Q15M PRN IV DECREASED GLUCOSE; Start 10/07/18 at 21:00 Glucagon (Glucagen) 1 mg Q15M PRN IM DECREASED GLUCOSE; Start 10/07/18 at 21:00 Glucose (Glutose) 15 gm Q15M PRN BUCCAL DECREASED GLUCOSE; Start 10/07/18 at 21:00 Ferric Sodium Gluconate Complex 125 mg/Sodium Chloride 110 ml @ 110 mls/hr DAILY@1300 IVPB Last administered on 10/11/18at 15:11; Admin Dose 110 MLS/HR; Start 10/08/18 at 13:00; Stop 10/12/18 at 13:59 Meropenem/Sodium Chloride 50 ml @ 100 mls/hr Q12 IVPB Last administered on 10/12/18at 10:09; Admin Dose 100 MLS/HR; Start 10/09/18 at 12:00 Collagenase (Santyl) 1 applic DAILY TOP Last administered on 10/12/18at 09:00; Admin Dose 1 APPLIC; Start 10/09/18 at 19:00 Dextrose/Sodium Chloride 1,000 ml @ 75 mls/hr [id number] IV Last administered on 10/10/18at 11:08; Admin Dose 75 MLS/HR; Start 10/09/18 at 20:00 Multivitamins 10 ml/Dextrose/ Sodium Chloride 1,010 ml @ 75 mls/hr Q24H IV Last administered on 10/11/18at 17:03; Admin Dose 75 MLS/HR; Start 10/10/18 at 17:00 Sodium Hypochlorite (Dakins Diluted (/40)) 1 applic DAILY TP Last administered on 10/12/18 09:00; Admin Dose 1 APPLIC; Start 10/11/18 at 09:00 Amiodarone HCl (Cordarone) 200 mg DAILY PO Last administered on 10/12/18at 10:12; Admin Dose 200 MG; Start 10/11/18 at 09:00 Caspofungin 50 mg/ Sodium Chloride 250 ml @ 250 mls/hr Q24H IVPB Last administered on 10/12/18at 12:21; Admin Dose 250 MLS/HR; Start 10/12/18 at 11:00 Quetiapine Fumarate (Seroquel) 25 mg BID@0900,1200 PO Last administered on 10/12/18at 10:22; Admin Dose 25 MG; Start 10/11/18 at 12:00 Quetiapine Fumarate (Seroquel) 50 mg HS PO Last administered on 10/11/18at 21:02; Admin Dose 50 MG; Start 10/11/18 at 21:00 Polyethylene Glycol/ Electrolytes (Golytely) 4,000 ml ONCE ONCE PO ; Start 10/12/18 at 15:00; Stop 10/12/18 at 15:01 ALEM ANDRES Oct 12, 2018 13:31
--- NOTE | 2018-10-12 14:26 | CONS ---
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 Echo dense structure seen by tricuspid valve, right atrium and IVC-thrombus, vegetation versus tumor CAD with history of CABG History of renal carcinoma status post nephrectomy approximately 8 years ago History of hypertension Diabetes Paroxysmal atrial fibrillation, intolerant to anticoagulation Patient presents with acute kidney injury, hyperkalemia and encephalopathy Renal function continues to improve Hold all nephro toxic medications Hemoglobin better after blood transfusion Blood pressure trend improving, continue antihypertensives with holding parameters Will decrease dose of amiodarone Consultation Date/Type/Reason Admit Date/Time Oct 07, 2018 at 03:37 Initial Consult Date 10/07/18 Type of Consult Cardiology Requesting Provider: JAGJIT MONTES MD Date/Time of Note DATE: 10/12/18 TIME: 14:25 24 HR Interval Summary Free Text/Dictation Patient seen and examined Exam/Review of Systems Vital Signs Vitals Vital Signs Date Temp Pulse Resp B/P (MAP) Pulse Ox O2 O2 Flow FiO2 Time Delivery Rate 10/12/18 98.0 73 18 135/71 98 11:39 (92) 10/12/18 Room Air 04:15 Intake and Output 10/11/18 10/11/18 10/12/18 1515:00 23:00 07:00 IntakeIntake Total 50 ml BalanceBalance 50 ml Exam Exam Sleeping, opens her eyes to her name, no apparent distress Head: normocephalic Respiratory: other (Coarse breath sounds bilaterally, no wheezing) Cardiovascular: regular rate and rhythm (S1-S2 heard) Gastrointestinal: soft, non-tender, bowel sounds Extremities: edema, other Labs Result Diagram: 10/11/18 0644 10/11/18 0644 Results 24hrs Laboratory Tests Test 10/11/18 17:13 10/11/18 21:06 10/12/18 02:44 10/12/18 08:23 Bedside Glucose 190 198 217 229 H Test 10/12/18 12:20 Bedside Glucose 213 Medications Medications Current Medications Allopurinol (Zyloprim) 100 mg BID PO Last administered on 10/12/18at 10:11; Admin Dose 100 MG; Start 10/07/18 at 21:00 Aspirin (Halfprin) 81 mg DAILY PO Last administered on 10/08/18 08:14; Admin Dose 81 MG; Start 10/08/18 at 09:00; Status Hold Carvedilol (Coreg) 3.125 mg BID PO Last administered on 10/12/18 10:12; Admin Dose 3.125 MG; Start 10/07/18 at 21:00 Docusate Sodium (Colace) 100 mg TID PO Last administered on 10/12/18 10:11; Admin Dose 100 MG; Start 10/07/18 at 21:00 Pantoprazole (Protonix Tab) 40 mg DAILY@06 PO Last administered on 10/12/18 06:13; Admin Dose 40 MG; Start 10/08/18 at 06:00 Ferrous Sulfate (Ferrous Sulfate (Ec)) 325 mg DAILY PO Last administered on 10/12/18 10:11; Admin Dose 325 MG; Start 10/08/18 at 09:00 IV Flush (NS 3 ml) 3 ml PER PROTOCOL IV ; Start 10/07/18 at 12:30 Ondansetron HCl (Zofran Inj) 4 mg Q6H PRN IV NAUSEA/VOMITING; Start 10/07/18 at 12:30 Acetaminophen (Tylenol Tab) 650 mg Q6H PRN PO .PAIN 1-3 OR TEMP Last administered on 10/11/18 21:02; Admin Dose 650 MG; Start 10/07/18 at 12:30 Acetaminophen/ Hydrocodone Bitart ([place] (5/325)) 1 tab Q6H PRN PO .PAIN 4-6 Last administered on 10/11/18 17:04; Admin Dose 1 TAB; Start 10/07/18 at 12:30 Clonidine (Catapres) 0.1 mg BID PO Last administered on 10/12/18 10:11; Admin Dose 0.1 MG; Start 10/07/18 at 22:00 Diagnostic Test (Pha) (Accu-Chek) 1 ea 02 XX Last administered on 10/12/18 02:00; Admin Dose 1 EA; Start 10/08/18 at 02:00 Insulin Aspart (Novolog Insulin Pen) NOVOLOG *MILD* ALGORITHM WITH MEALS BEDTIME SC Last administered on 10/12/18 12:26; Admin Dose 3 UNIT; Start 10/07/18 at 21:00 Miscellaneous Information 1 ea NOTE XX ; Start 10/07/18 at 21:00 Glucose (Glutose) 15 gm Q15M PRN PO DECREASED GLUCOSE; Start 10/07/18 at 21:00 Glucose (Glutose) 22.5 gm Q15M PRN PO DECREASED GLUCOSE; Start 10/07/18 at 21:00 Dextrose (D50w Syringe) 25 ml Q15M PRN IV DECREASED GLUCOSE; Start 10/07/18 at 21:00 Dextrose (D50w Syringe) 50 ml Q15M PRN IV DECREASED GLUCOSE; Start 10/07/18 at 21:00 Glucagon (Glucagen) 1 mg Q15M PRN IM DECREASED GLUCOSE; Start 10/07/18 at 21:00 Glucose (Glutose) 15 gm Q15M PRN BUCCAL DECREASED GLUCOSE; Start 10/07/18 at 21:00 Meropenem/Sodium Chloride 50 ml @ 100 mls/hr Q12 IVPB Last administered on 10/12/18at 10:09; Admin Dose 100 MLS/HR; Start 10/09/18 at 12:00 Collagenase (Santyl) 1 applic DAILY TOP Last administered on 10/12/18at 09:00; Admin Dose 1 APPLIC; Start 10/09/18 at 19:00 Dextrose/Sodium Chloride 1,000 ml @ 75 mls/hr [id number] IV Last administered on 10/10/18at 11:08; Admin Dose 75 MLS/HR; Start 10/09/18 at 20:00 Multivitamins 10 ml/Dextrose/ Sodium Chloride 1,010 ml @ 75 mls/hr Q24H IV Last administered on 10/11/18at 17:03; Admin Dose 75 MLS/HR; Start 10/10/18 at 17:00 Sodium Hypochlorite (Dakins Diluted (1/40)) 1 applic DAILY TP Last administered on 10/12/18at 09:00; Admin Dose 1 APPLIC; Start 10/11/18 at 09:00 Amiodarone HCl (Cordarone) 200 mg DAILY PO Last administered on 10/12/18at 10:12; Admin Dose 200 MG; Start 10/11/18 at 09:00 Caspofungin 50 mg/ Sodium Chloride 250 ml @ 250 mls/hr Q24H IVPB Last administered on 10/12/18at 12:21; Admin Dose 250 MLS/HR; Start 10/12/18 at 11:00 Quetiapine Fumarate (Seroquel) 25 mg BID@0900,1200 PO Last administered on 10/12/18at 10:22; Admin Dose 25 MG; Start 10/11/18 at 12:00 Quetiapine Fumarate (Seroquel) 50 mg HS PO Last administered on 10/11/18at 21:02; Admin Dose 50 MG; Start 10/11/18 at 21:00 Polyethylene Glycol/ Electrolytes (Golytely) 4,000 ml ONCE ONCE PO ; Start 10/12/18 at 15:00; Stop 10/12/18 at 15:01 Alex Chávez DO Oct 12, 2018 14:26
[2018-10-12] MEDS ORDERED: PEG/ELECTROLYTES 4L BTL PO ONE (15:00)
[2018-10-12] MEDS: SOD FERRIC GLUC COMPLX 125 MG in SOD CHLORIDE 0.9% 100 ML IVPB SCH (15:25)
[2018-10-12] MEDS: HYDROCODONE/APAP (5/325) TAB PO PRN (16:13)
[2018-10-12 16:20] VITALS: BP 147/82; PULSE 90; RESP 18
[2018-10-12] MEDS: MULTIVITAMINS 10 ML in DEXTROSE 5%-0.45% NACL 1,000 ML IV SCH (17:50)
[2018-10-12] MEDS ORDERED: BISACODYL (EC) 5 MG TAB PO STA (18:12)
[2018-10-12] MEDS ORDERED: MAGNESIUM CITRATE 300 ML BTL PO STA (18:13)
--- NOTE | 2018-10-12 18:15 | CONS ---
Assessment/Plan Assessment/Plan Assessment/Plan (Daily) No signs GI bleeding per RN. She had been agitated yesterday which was not baseline for her. She was started on seroquel. Lethargic. When I try to examine her she starts to scream. 1. Urinary tract infection. 2. Sepsis. 3. Status post coronary artery bypass graft. 4. Peripheral vascular disease. 5. Atrial fibrillation. 6. Status post surgery for renal cell carcinoma 8 years ago. 7. Diabetes. 8. Hypertension. 9. Severe anemia. -IV iron 10. Transaminitis secondary to steatohepatitis -liver us 11. Elevated CEA: 24.1 PLAN: stat AM labs Monitor LFTs US of liver, so steatohepatitis and prominent common hepatic duct IV iron Patient definitely needs both EGD and colonoscopy for loss of appetite, weight loss, anemia, high CEA 24. Discussed with the son and has agreed for the procedure. Dulcolax and magnesium citrate now Consultation Date/Type/Reason Admit Date/Time Oct 07, 2018 at 03:37 Initial Consult Date 10/07/18 Requesting Provider: JAGJIT MONTES MD Date/Time of Note DATE: 10/12/18 TIME: 18:14 24 HR Interval Summary Constitutional: poor po Exam/Review of Systems Exam Vitals Vital Signs Date Temp Pulse Resp B/P (MAP) Pulse Ox O2 O2 Flow FiO2 Time Delivery Rate 10/12/18 98.0 90 18 147/82 98 16:20 (103) 10/12/18 Room Air 04:15 Intake and Output 10/11/18 10/11/18 10/12/18 1515:00 23:00 07:00 IntakeIntake Total 50 ml 110 ml 50 ml BalanceBalance 50 ml 110 ml 50 ml Constitutional: alert, oriented, well developed Psych: no complaints, nl mood/affect Head: normocephalic, atraumatic Eyes: nl conjunctiva, EOMI, nl lids, nl sclera, PERRL ENMT: nl external ears & nose, nl lips & teeth, nl nasal mucosa & septum Neck: supple, non-tender Respiratory: clear to auscultation, normal air movement Cardiovascular: regular rate and rhythm, nl pulses Gastrointestinal: soft, nl liver, spleen, non-tender Musculoskeletal: nl extremities to inspection, nl gait and stance Extremities: normal pulses Neurological: HEEL CASER II-XII intact, nl mental status, nl speech, nl strength Skin: nl turgor; No rash or lesions Lymph: nl lymph nodes Results Result Diagram: 10/11/1864310/11/18 0644 Results 24hrs Laboratory Tests Test 10/11/18 21:06 10/12/18 02:44 10/12/18 08:23 10/12/18 12:20 Bedside Glucose 198 217 229 H 213 Test 10/12/18 17:49 Bedside Glucose 195 Medications Medication Current Medications Allopurinol (Zyloprim) 100 mg BID PO Last administered on 10/12/18 10:11; Admin Dose 100 MG; Start 10/07/18 at 21:00 Aspirin (Halfprin) 81 mg DAILY PO Last administered on 10/08/18 08:14; Admin Dose 81 MG; Start 10/08/18 at 09:00; Status Hold Carvedilol (Coreg) 3.125 mg BID PO Last administered on 10/12/18 10:12; Admin Dose 3.125 MG; Start 10/07/18 at 21:00 Docusate Sodium (Colace) 100 mg TID PO Last administered on 10/12/18 15:26; Admin Dose 100 MG; Start 10/07/18 at 21:00 Pantoprazole (Protonix Tab) 40 mg DAILY@06 PO Last administered on 10/12/18 06:13; Admin Dose 40 MG; Start 10/08/18 at 06:00 Ferrous Sulfate (Ferrous Sulfate (Ec)) 325 mg DAILY PO Last administered on 10/12/18 10:11; Admin Dose 325 MG; Start 10/08/18 at 09:00 IV Flush (NS 3 ml) 3 ml PER PROTOCOL IV ; Start 10/07/18 at 12:30 Ondansetron HCl (Zofran Inj) 4 mg Q6H PRN IV NAUSEA/VOMITING; Start 10/07/18 at 12:30 Acetaminophen (Tylenol Tab) 650 mg Q6H PRN PO .PAIN 1-3 OR TEMP Last administered on 10/11/18 21:02; Admin Dose 650 MG; Start 10/07/18 at 12:30 Acetaminophen/ Hydrocodone Bitart ([place] (5/325)) 1 tab Q6H PRN PO .PAIN 4-6 Last administered on 7/14/19at 16:13; Admin Dose 1 TAB; Start 10/07/18 at 12:30 Clonidine (Catapres) 0.1 mg BID PO Last administered on 10/12/18at 10:11; Admin Dose 0.1 MG; Start 10/07/18 at 22:00 Diagnostic Test (Pha) (Accu-Chek) 1 ea 02 XX Last administered on 10/12/18at 02:00; Admin Dose 1 EA; Start 10/08/18 at 02:00 Insulin Aspart (Novolog Insulin Pen) NOVOLOG *MILD* ALGORITHM WITH MEALS BEDTIME SC Last administered on 10/12/18at 18:00; Admin Dose 2 UNIT; Start 10/07/18 at 21:00 Miscellaneous Information 1 ea NOTE XX ; Start 10/07/18 at 21:00 Glucose (Glutose) 15 gm Q15M PRN PO DECREASED GLUCOSE; Start 10/07/18 at 21:00 Glucose (Glutose) 22.5 gm Q15M PRN PO DECREASED GLUCOSE; Start 10/07/18 at 21:00 Dextrose (D50w Syringe) 25 ml Q15M PRN IV DECREASED GLUCOSE; Start 10/07/18 at 21:00 Dextrose (D50w Syringe) 50 ml Q15M PRN IV DECREASED GLUCOSE; Start 10/07/18 at 21:00 Glucagon (Glucagen) 1 mg Q15M PRN IM DECREASED GLUCOSE; Start 10/07/18 at 21:00 Glucose (Glutose) 15 gm Q15M PRN BUCCAL DECREASED GLUCOSE; Start 10/07/18 at 21:00 Meropenem/Sodium Chloride 50 ml @ 100 mls/hr Q12 IVPB Last administered on 10/12/18at 10:09; Admin Dose 100 MLS/HR; Start 10/09/18 at 12:00 Collagenase (Santyl) 1 applic DAILY TOP Last administered on 10/12/18at 09:00; Admin Dose 1 APPLIC; Start 10/09/18 at 19:00 Dextrose/Sodium Chloride 1,000 ml @ 75 mls/hr [id number] IV Last administered on 10/10/18at 11:08; Admin Dose 75 MLS/HR; Start 10/09/18 at 20:00 Multivitamins 10 ml/Dextrose/ Sodium Chloride 1,010 ml @ 75 mls/hr Q24H IV Last administered on 10/12/18at 17:50; Admin Dose 75 MLS/HR; Start 10/10/18 at 17:00 Sodium Hypochlorite (Dakins Diluted ()) 1 applic DAILY TP Last administered on 10/12/18 09:00; Admin Dose 1 APPLIC; Start 10/11/18 at 09:00 Caspofungin 50 mg/ Sodium Chloride 250 ml @ 250 mls/hr Q24H IVPB Last administered on 10/12/18 12:21; Admin Dose 250 MLS/HR; Start 10/12/18 at 11:00 Quetiapine Fumarate (Seroquel) 25 mg BID@0900,1200 PO Last administered on 10/12/18at 15:26; Admin Dose 25 MG; Start 10/11/18 at 12:00 Quetiapine Fumarate (Seroquel) 50 mg HS PO Last administered on 10/11/18at 21:02; Admin Dose 50 MG; Start 10/11/18 at 21:00 Amiodarone HCl (Cordarone) 100 mg DAILY PO ; Start 10/13/18 at 09:00 VELIA CASTRO MD Oct 12, 2018 18:15
[2018-10-12 20:39] VITALS: BP 147/67; PULSE 85; RESP 18
[2018-10-12] MEDS ORDERED: ATROPINE 1 MG/10 ML SYRINGE ONE (23:12)
[2018-10-13] VITALS (18 sets, daily range): BP systolic 83–169; BP diastolic 40–71; PULSE 54–67; RESP 12–37
[2018-10-13] MEDS: ACETAMINOPHEN 325 MG TAB PO PRN (00:18)
[2018-10-13] MEDS: ACCU-CHEK XX SCH (02:00)
[2018-10-13] MEDS: PANTOPRAZOLE (EC) 40 MG TAB PO SCH (05:50)
[2018-10-13] MEDS: INSULIN ASPART [NOVOLOG] 3 ML PEN SC SCH ×4 (08:24→20:42)
[2018-10-13] MEDS: AMIODARONE 200 MG TAB PO SCH (09:00)
[2018-10-13] MEDS: FERROUS SULFATE (EC) 325 MG TAB PO SCH (09:00)
[2018-10-13] MEDS: DOCUSATE SODIUM 100 MG CAP PO SCH ×3 (09:00→20:41)
[2018-10-13] MEDS: QUETIAPINE 25 MG TAB PO SCH ×3 (09:00→20:41)
[2018-10-13] MEDS: ALLOPURINOL 100 MG TAB PO SCH ×2 (09:00→20:42)
[2018-10-13] MEDS: MEROPENEM 500MG/50 ML (PMX) 50 ML IVPB SCH ×2 (09:16→20:42)
[2018-10-13] MEDS: COLLAGENASE 5 GM (UD JAR) TOP SCH (09:16)
[2018-10-13] MEDS: DAKINS 0.0125%(1/40) 473 ML SOLUTION TP SCH (09:17)
--- NOTE | 2018-10-13 11:47 | CONS ---
Assessment/Plan Assessment/Plan Assessment/Plan (Daily) 1. acute hyperkalemia due to BRANDON -RESOLVED 2 .acute kidney injury on CKD III due to ATN from sepsis + prerenal azotemia 3. Sepsis due to UTI and PNA 4. acute UTI 5. H/o partial nephrectomy possibly due to RCC as per family 6. H/o CAD s/p CABG , Cardiomyopathy with EF 50%, Chronic Systolic HF, 7. H/O HTN 8. h/o DM II 9. Paroxysmal atrial fibrillation 10. acute encephalpahty possibly due to uremic and metabolic encephalopathy 11. 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 H/o HTN 13. H/o DM II 14. h/O paroxysmal atrial fibrillation Plan: BUN/Cr improved to 27/1.04, now off IVF on IV abx cancida, Vancomycin and Meropenem, Renally michelle all abx and monitor electrolytes Renal US showed No hydronephrosis. No nephrolithiasis.- 3.1 x 2 x 2.1 centimeter hypoechoic lesion arising from the lower pole of the left kidney. Follow-up to exclude neoplasm. There is echogenic material layering within the dependent portion of the bladder. Follow up to exclude infectious, inflammatory, or neoplastic process.- Atrophic left kidney- Family refused MRI abdomen will follow up Consultation Date/Type/Reason Admit Date/Time Oct 07, 2018 at 03:37 Initial Consult Date 10/07/18 Type of Consult NEPHROLOGY Requesting Provider: JAGJIT MONTES MD Date/Time of Note DATE: 10/13/18 TIME: 11:47 Exam/Review of Systems Exam Vitals Vital Signs Date Temp Pulse Resp B/P (MAP) Pulse Ox O2 O2 Flow FiO2 Time Delivery Rate 10/13/18 97.5 61 17 141/67 100 11:23 (91) 10/13/18 Nasal 05:31 Cannula Intake and Output 10/12/18 10/12/18 10/13/18 1515:00 23:00 07:00 IntakeIntake Total 300 ml 100 ml OutputOutput Total 1000 ml BalanceBalance 300 ml -1000 ml 100 ml Results Result Diagram: 10/13/18 0724 10/13/18 0724 Results 24hrs Laboratory Tests Test 10/12/18 12:20 10/12/18 17:49 10/12/18 20:58 10/13/18 07:24 Bedside Glucose 213 195 185 White Blood Count 10.9 #H Red Blood Count 3.30 L Hemoglobin 8.7 L Hematocrit 28.3 L Mean Corpuscular 85.8 Volume Mean Corpuscular 26.4 L Hemoglobin Mean Corpuscular 30.7 L Hemoglobin Concent Red Cell 18.3 H Distribution Width Platelet Count 334 Mean Platelet 10.0 Volume Immature 0.600 H Granulocytes % Neutrophils % 76.7 Lymphocytes % 14.6 L Monocytes % 6.9 Eosinophils % 1.0 Basophils % 0.2 Nucleated Red 0.0 Blood Cells % Immature 0.060 H Granulocytes # Neutrophils # 8.3 H Lymphocytes # 1.6 Monocytes # 0.8 Eosinophils # 0.1 Basophils # 0.0 Nucleated Red 0.0 Blood Cells # Prothrombin Time 12.9 Prothrombin Time 1.0 Ratio INR International 0.96 Normalized Ratio Sodium Level 138 Potassium Level 3.6 Chloride Level 109 Carbon Dioxide 23 Level Anion Gap 6 Blood Urea 27 H Nitrogen Creatinine 1.04 H Est Glomerular Filtrat Rate mL/min Glucose Level 199 Calcium Level 9.0 Test 10/13/18 07:56 10/13/18 10:55 Bedside Glucose 238 H Lab Scanned Report REFERENCE LAB Medications Medication Current Medications Allopurinol (Zyloprim) 100 mg BID PO Last administered on 10/12/18 10:11; Admin Dose 100 MG; Start 10/07/18 at 21:00 Aspirin (Halfprin) 81 mg DAILY PO Last administered on 10/08/18 08:14; Admin Dose 81 MG; Start 10/08/18 at 09:00; Status Hold Carvedilol (Coreg) 3.125 mg BID PO Last administered on 10/12/18 10:12; Admin Dose 3.125 MG; Start 10/07/18 at 21:00 Docusate Sodium (Colace) 100 mg TID PO Last administered on 10/12/18 15:26; Admin Dose 100 MG; Start 10/07/18 at 21:00 Pantoprazole (Protonix Tab) 40 mg DAILY@06 PO Last administered on 10/13/18 05:50; Admin Dose 40 MG; Start 10/08/18 at 06:00 Ferrous Sulfate (Ferrous Sulfate (Ec)) 325 mg DAILY PO Last administered on 10/12/18 10:11; Admin Dose 325 MG; Start 10/08/18 at 09:00 IV Flush (NS 3 ml) 3 ml PER PROTOCOL IV ; Start 10/07/18 at 12:30 Ondansetron HCl (Zofran Inj) 4 mg Q6H PRN IV NAUSEA/VOMITING; Start 10/07/18 at 12:30 Acetaminophen (Tylenol Tab) 650 mg Q6H PRN PO .PAIN 1-3 OR TEMP Last administered on 10/13/18at 00:18; Admin Dose 650 MG; Start 10/07/18 at 12:30 Acetaminophen/ Hydrocodone Bitart ([place] (5/325)) 1 tab Q6H PRN PO .PAIN 4-6 Last administered on 10/12/18at 16:13; Admin Dose 1 TAB; Start 10/07/18 at 12:30 Clonidine (Catapres) 0.1 mg BID PO Last administered on 10/12/18at 10:11; Admin Dose 0.1 MG; Start 10/07/18 at 22:00 Diagnostic Test (Pha) (Accu-Chek) 1 ea 02 XX Last administered on 10/13/18at 02:00; Admin Dose 1 EA; Start 10/08/18 at 02:00 Insulin Aspart (Novolog Insulin Pen) NOVOLOG *MILD* ALGORITHM WITH MEALS BEDTIME SC Last administered on 10/13/18at 11:45; Admin Dose 3 UNIT; Start 10/07/18 at 21:00 Miscellaneous Information 1 ea NOTE XX ; Start 10/07/18 at 21:00 Glucose (Glutose) 15 gm Q15M PRN PO DECREASED GLUCOSE; Start 10/07/18 at 21:00 Glucose (Glutose) 22.5 gm Q15M PRN PO DECREASED GLUCOSE; Start 10/07/18 at 21:00 Dextrose (D50w Syringe) 25 ml Q15M PRN IV DECREASED GLUCOSE; Start 10/07/18 at 21:00 Dextrose (D50w Syringe) 50 ml Q15M PRN IV DECREASED GLUCOSE; Start 10/07/18 at 21:00 Glucagon (Glucagen) 1 mg Q15M PRN IM DECREASED GLUCOSE; Start 10/07/18 at 21:00 Glucose (Glutose) 15 gm Q15M PRN BUCCAL DECREASED GLUCOSE; Start 10/07/18 at 21:00 Meropenem/Sodium Chloride 50 ml @ 100 mls/hr Q12 IVPB Last administered on 10/13/18 09:16; Admin Dose 100 MLS/HR; Start 10/09/18 at 12:00 Collagenase (Santyl) 1 applic DAILY TOP Last administered on 10/13/18 09:16; Admin Dose 1 APPLIC; Start 10/09/18 at 19:00 Multivitamins 10 ml/Dextrose/ Sodium Chloride 1,010 ml @ 75 mls/hr Q24H IV Last administered on 10/12/18 17:50; Admin Dose 75 MLS/HR; Start 10/10/18 at 17:00 Sodium Hypochlorite (Dakins Diluted (40)) 1 applic DAILY TP Last administered on 10/13/18 09:17; Admin Dose 1 APPLIC; Start 10/11/18 at 09:00 Caspofungin 50 mg/ Sodium Chloride 250 ml @ 250 mls/hr Q24H IVPB Last administered on 10/12/18 12:21; Admin Dose 250 MLS/HR; Start 10/12/18 at 11:00 Quetiapine Fumarate (Seroquel) 25 mg BID@0900,1200 PO Last administered on 10/12/18 15:26; Admin Dose 25 MG; Start 10/11/18 at 12:00 Quetiapine Fumarate (Seroquel) 50 mg HS PO Last administered on 10/11/18 21:02; Admin Dose 50 MG; Start 10/11/18 at 21:00 Amiodarone HCl (Cordarone) 100 mg DAILY PO ; Start 10/13/18 at 09:00 EVA TREJO MD Oct 13, 2018 11:47
[2018-10-13] MEDS: CASPOFUNGIN 50 MG in SOD CHLORIDE 0.9% 250 ML IVPB SCH (11:50)
--- NOTE | 2018-10-13 12:13 | CONS ---
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 CT and X-rays reviewed. Showing early erosive changes to the bone for possible osteomyelitis. Recommend daily dressing changes with betadine 4x4 gauze kerlix and offloading with prevelon soft boots. Plan for an OR debridement this saturday. Patient in the future will likely staged procedures. Vascular surgery following left lower extremity ulceration and appreciate input regarding vascular supply. Non invasive arterial studies reviewed. Emphasized offloading to alleviate pressure. Appreciate abx recommendations per ID. Consultation Date/Type/Reason Admit Date/Time Oct 07, 2018 at 03:37 Initial Consult Date 10/10/18 Requesting Provider: JAGJIT MONTES MD Date/Time of Note DATE: 10/13/18 TIME: 12:12 24 HR Interval Summary Free Text/Dictation No acute events overnight. Exam/Review of Systems Exam Vitals Vital Signs Date Temp Pulse Resp B/P (MAP) Pulse Ox O2 O2 Flow FiO2 Time Delivery Rate 10/13/18 97.5 61 17 141/67 100 11:23 (91) 10/13/18 Nasal 05:31 Cannula Intake and Output 10/12/18 10/12/18 10/13/18 1515:00 23:00 07:00 IntakeIntake Total 300 ml 100 ml OutputOutput Total 1000 ml BalanceBalance 300 ml -1000 ml 100 ml Exam DP pulse palpable, non palpable PT pulse, palpable popliteal pulse. Irregular rhythm appreciated during palpation Skin temperature gradient warm to warm from proximal leg to distal feet Absent protective sensations Right posterior heel ulcer fibronecrotic with some purulence appreciated 3 x 4 x 0.8cm ulcer probes to bone, no foul odor appreciated, no proximal streaking Pain on palpation to ulceration site Bandage to left lower extremity site with previously healed surgical bypass site. Non invasive arterial studies: IMPRESSION: Scattered calcific plaquing. No hemodynamically significant stenosis or occlusion. Bilateral small vessel disease within both trifurcation vessels. Results Result Diagram: 10/13/18 0724 10/13/18 0724 Results 24hrs Laboratory Tests Test 10/12/18 12:20 10/12/18 17:49 10/12/18 20:58 10/13/18 07:24 Bedside Glucose 213 195 185 White Blood Count 10.9 #H Red Blood Count 3.30 L Hemoglobin 8.7 L Hematocrit 28.3 L Mean Corpuscular 85.8 Volume Mean Corpuscular 26.4 L Hemoglobin Mean Corpuscular 30.7 L Hemoglobin Concent Red Cell 18.3 H Distribution Width Platelet Count 334 Mean Platelet 10.0 Volume Immature 0.600 H Granulocytes % Neutrophils % 76.7 Lymphocytes % 14.6 L Monocytes % 6.9 Eosinophils % 1.0 Basophils % 0.2 Nucleated Red 0.0 Blood Cells % Immature 0.060 H Granulocytes # Neutrophils # 8.3 H Lymphocytes # 1.6 Monocytes # 0.8 Eosinophils # 0.1 Basophils # 0.0 Nucleated Red 0.0 Blood Cells # Prothrombin Time 12.9 Prothrombin Time 1.0 Ratio INR International 0.96 Normalized Ratio Sodium Level 138 Potassium Level 3.6 Chloride Level 109 Carbon Dioxide 23 Level Anion Gap 6 Blood Urea 27 H Nitrogen Creatinine 1.04 H Est Glomerular Filtrat Rate mL/min Glucose Level 199 Calcium Level 9.0 Test 10/13/18 07:56 10/13/18 10:55 10/13/18 11:38 Bedside Glucose 238 H 239 H Lab Scanned Report REFERENCE LAB Medications Medication Current Medications Allopurinol (Zyloprim) 100 mg BID PO Last administered on 10/12/18 10:11; Admin Dose 100 MG; Start 10/07/18 at 21:00 Aspirin (Halfprin) 81 mg DAILY PO Last administered on 10/08/18 08:14; Admin Dose 81 MG; Start 10/08/18 at 09:00; Status Hold Carvedilol (Coreg) 3.125 mg BID PO Last administered on 10/12/18at 10:12; Admin Dose 3.125 MG; Start 10/07/18 at 21:00 Docusate Sodium (Colace) 100 mg TID PO Last administered on 10/12/18 15:26; Admin Dose 100 MG; Start 10/07/18 at 21:00 Pantoprazole (Protonix Tab) 40 mg DAILY@06 PO Last administered on 10/13/18at 05:50; Admin Dose 40 MG; Start 10/08/18 at 06:00 Ferrous Sulfate (Ferrous Sulfate (Ec)) 325 mg DAILY PO Last administered on 7/14/19at 10:11; Admin Dose 325 MG; Start 10/08/18 at 09:00 IV Flush (NS 3 ml) 3 ml PER PROTOCOL IV ; Start 10/07/18 at 12:30 Ondansetron HCl (Zofran Inj) 4 mg Q6H PRN IV NAUSEA/VOMITING; Start 10/07/18 at 12:30 Acetaminophen (Tylenol Tab) 650 mg Q6H PRN PO .PAIN 1-3 OR TEMP Last administered on 10/13/18at 00:18; Admin Dose 650 MG; Start 10/07/18 at 12:30 Acetaminophen/ Hydrocodone Bitart ([place] (5/325)) 1 tab Q6H PRN PO .PAIN 4-6 Last administered on 10/12/18 16:13; Admin Dose 1 TAB; Start 10/07/18 at 12:30 Clonidine (Catapres) 0.1 mg BID PO Last administered on 10/12/18 10:11; Admin Dose 0.1 MG; Start 10/07/18 at 22:00 Diagnostic Test (Pha) (Accu-Chek) 1 ea 02 XX Last administered on 10/13/18at 02:00; Admin Dose 1 EA; Start 10/08/18 at 02:00 Insulin Aspart (Novolog Insulin Pen) NOVOLOG *MILD* ALGORITHM WITH MEALS BEDTIME SC Last administered on 10/13/18at 11:45; Admin Dose 3 UNIT; Start 10/07/18 at 21:00 Miscellaneous Information 1 ea NOTE XX ; Start 10/07/18 at 21:00 Glucose (Glutose) 15 gm Q15M PRN PO DECREASED GLUCOSE; Start 10/07/18 at 21:00 Glucose (Glutose) 22.5 gm Q15M PRN PO DECREASED GLUCOSE; Start 10/07/18 at 21:00 Dextrose (D50w Syringe) 25 ml Q15M PRN IV DECREASED GLUCOSE; Start 10/07/18 at 21:00 Dextrose (D50w Syringe) 50 ml Q15M PRN IV DECREASED GLUCOSE; Start 10/07/18 at 21:00 Glucagon (Glucagen) 1 mg Q15M PRN IM DECREASED GLUCOSE; Start 10/07/18 at 21:00 Glucose (Glutose) 15 gm Q15M PRN BUCCAL DECREASED GLUCOSE; Start 10/07/18 at 21:00 Meropenem/Sodium Chloride 50 ml @ 100 mls/hr Q12 IVPB Last administered on 10/13/18 09:16; Admin Dose 100 MLS/HR; Start 10/09/18 at 12:00 Collagenase (Santyl) 1 applic DAILY TOP Last administered on 10/13/18 09:16; Admin Dose 1 APPLIC; Start 10/09/18 at 19:00 Multivitamins 10 ml/Dextrose/ Sodium Chloride 1,010 ml @ 75 mls/hr Q24H IV Last administered on 10/12/18 17:50; Admin Dose 75 MLS/HR; Start 10/10/18 at 17:00 Sodium Hypochlorite (Dakins Diluted ()) 1 applic DAILY TP Last administered on 10/13/18 09:17; Admin Dose 1 APPLIC; Start 10/11/18 at 09:00 Caspofungin 50 mg/ Sodium Chloride 250 ml @ 250 mls/hr Q24H IVPB Last administered on 10/13/18 11:50; Admin Dose 250 MLS/HR; Start 10/12/18 at 11:00 Quetiapine Fumarate (Seroquel) 25 mg BID@0900,1200 PO Last administered on 10/12/18at 15:26; Admin Dose 25 MG; Start 10/11/18 at 12:00 Quetiapine Fumarate (Seroquel) 50 mg HS PO Last administered on 10/11/18at 21:02; Admin Dose 50 MG; Start 10/11/18 at 21:00 Amiodarone HCl (Cordarone) 100 mg DAILY PO ; Start 10/13/18 at 09:00 NANCY DIANE DPM Oct 13, 2018 12:12
--- NOTE | 2018-10-13 12:46 | PREAC ---
Date/Time of Note Date/Time of Note DATE: 10/13/18 TIME: 12:42 Anesthesia Eval and Record Evaluation Time Pre-Procedure Interview DATE: 10/13/18 TIME: 12:42 Age 82 Sex female NPO: 8 hrs Preoperative diagnosis GI bleed Planned procedure EGD/Colonoscopy Past Medical History Past Medical History: Includes (hx endocarditis) Cardio: HTN, CAD, CABG, Arrythmia (AFIB), CHF, Other (cardiomyopathy EF 50%) Endo: Diabetes Renal: BRANDON Heme: Anemia Surgery & Anesthesia Issues No known issue Meds Anticoagulation: No Beta Rosalba within 24 hr: Yes Active Scripts [Vancomycin Iv Per Pharmacy] 1 EA EACH No Conflict Check, 0 EA XX .PER PROTOCOL Prov:NUBIA TEJEDA MD 08/04/18 Reported Medications Clonidine Hcl* (Clonidine Hcl*) 0.1 Mg Tab, 0.1 MG PO Q8, TAB 06/25/18 Furosemide* (Furosemide*) 20 Mg Tablet, 20 MG PO DAILY 06/25/18 Carvedilol* (Carvedilol*) 3.125 Mg Tablet, 3.125 MG PO BID for 30 Days, #60 06/25/18 Amiodarone Hcl* (Amiodarone Hcl*) 200 Mg Tablet, 200 MG PO BID, #60 TAB 06/17/18 Dulaglutide (Trulicity) 0.75 Mg/0.5 Ml Pen.injctr, 1.75 MG SQ WEEKLY 06/11/18 Insulin Glargine,Hum.rec.anlog (Basaglar Kwikpen U-100) 100 Unit/1 Ml Insuln.pen, 20 UNIT SC DAILY, EA 06/11/18 Ferrous Sulfate (Ferrous Sulfate) 325 Mg Tablet., 325 MG PO DAILY 06/11/18 Aspirin* (Aspirin* EC) 81 Mg Tablet.dr, 81 MG PO DAILY, TAB 06/11/18 Empagliflozin (Jardiance) 10 Mg Tablet, 10 MG PO DAILY, TAB 06/11/18 Esomeprazole Mag Trihydrate (Nexium) 20 Mg Capsule.dr, 20 MG PO AC BREAKFAST, #30 CAP 06/11/18 Docusate Sodium* (Colace*) 100 Mg Capsule, 100 MG PO TID, #60 CAP 06/11/18 Allopurinol* (Allopurinol*) 100 Mg Tablet, 100 MG PO BID, TAB 06/11/18 Current Medications Allopurinol (Zyloprim) 100 mg BID PO Last administered on 10/12/18 10:11; Admin Dose 100 MG; Start 10/07/18 at 21:00 Aspirin (Halfprin) 81 mg DAILY PO Last administered on 10/08/18 08:14; Admin Dose 81 MG; Start 10/08/18 at 09:00; Status Hold Carvedilol (Coreg) 3.125 mg BID PO Last administered on 10/12/18 10:12; Admin Dose 3.125 MG; Start 10/07/18 at 21:00 Docusate Sodium (Colace) 100 mg TID PO Last administered on 10/12/18 15:26; Admin Dose 100 MG; Start 10/07/18 at 21:00 Pantoprazole (Protonix Tab) 40 mg DAILY@06 PO Last administered on 10/13/18 05:50; Admin Dose 40 MG; Start 10/08/18 at 06:00 Ferrous Sulfate (Ferrous Sulfate (Ec)) 325 mg DAILY PO Last administered on 10/12/18 10:11; Admin Dose 325 MG; Start 10/08/18 at 09:00 IV Flush (NS 3 ml) 3 ml PER PROTOCOL IV ; Start 10/07/18 at 12:30 Ondansetron HCl (Zofran Inj) 4 mg Q6H PRN IV NAUSEA/VOMITING; Start 10/07/18 at 12:30 Acetaminophen (Tylenol Tab) 650 mg Q6H PRN PO .PAIN 1-3 OR TEMP Last administered on 10/13/18 00:18; Admin Dose 650 MG; Start 10/07/18 at 12:30 Acetaminophen/ Hydrocodone Bitart ([place] (5/325)) 1 tab Q6H PRN PO .PAIN 4-6 Last administered on 10/12/18 16:13; Admin Dose 1 TAB; Start 10/07/18 at 12:30 Clonidine (Catapres) 0.1 mg BID PO Last administered on 10/12/18 10:11; Admin Dose 0.1 MG; Start 10/07/18 at 22:00 Diagnostic Test (Pha) (Accu-Chek) 1 ea 02 XX Last administered on 10/13/18 02:00; Admin Dose 1 EA; Start 10/08/18 at 02:00 Insulin Aspart (Novolog Insulin Pen) NOVOLOG *MILD* ALGORITHM WITH MEALS BEDTIME SC Last administered on 10/13/18at 11:45; Admin Dose 3 UNIT; Start 10/07/18 at 21:00 Miscellaneous Information 1 ea NOTE XX ; Start 10/07/18 at 21:00 Glucose (Glutose) 15 gm Q15M PRN PO DECREASED GLUCOSE; Start 10/07/18 at 21:00 Glucose (Glutose) 22.5 gm Q15M PRN PO DECREASED GLUCOSE; Start 10/07/18 at 21:00 Dextrose (D50w Syringe) 25 ml Q15M PRN IV DECREASED GLUCOSE; Start 10/07/18 at 21:00 Dextrose (D50w Syringe) 50 ml Q15M PRN IV DECREASED GLUCOSE; Start 10/07/18 at 21:00 Glucagon (Glucagen) 1 mg Q15M PRN IM DECREASED GLUCOSE; Start 10/07/18 at 21:00 Glucose (Glutose) 15 gm Q15M PRN BUCCAL DECREASED GLUCOSE; Start 10/07/18 at 2 1:00 Meropenem/Sodium Chloride 50 ml @ 100 mls/hr Q12 IVPB Last administered on 10/13/18at 09:16; Admin Dose 100 MLS/HR; Start 10/09/18 at 12:00 Collagenase (Santyl) 1 applic DAILY TOP Last administered on 10/13/18 09:16; Admin Dose 1 APPLIC; Start 10/09/18 at 19:00 Multivitamins 10 ml/Dextrose/ Sodium Chloride 1,010 ml @ 75 mls/hr Q24H IV Last administered on 10/12/18at 17:50; Admin Dose 75 MLS/HR; Start 10/10/18 at 17:00 Sodium Hypochlorite (Dakins Diluted (40)) 1 applic DAILY TP Last administered on 10/13/18 09:17; Admin Dose 1 APPLIC; Start 10/11/18 at 09:00 Caspofungin 50 mg/ Sodium Chloride 250 ml @ 250 mls/hr Q24H IVPB Last administered on 10/13/18 11:50; Admin Dose 250 MLS/HR; Start 10/12/18 at 11:00 Quetiapine Fumarate (Seroquel) 25 mg BID@0900,1200 PO Last administered on 10/12/18at 15:26; Admin Dose 25 MG; Start 10/11/18 at 12:00 Quetiapine Fumarate (Seroquel) 50 mg HS PO Last administered on 10/11/18at 21:02; Admin Dose 50 MG; Start 10/11/18 at 21:00 Amiodarone HCl (Cordarone) 100 mg DAILY PO ; Start 10/13/18 at 09:00 Meds reviewed: Yes Allergies Coded Allergies: No Known Allergies (Verified Allergy, Unknown, 08/01/18) Allergies Reviewed: Yes Labs/Studies Labs Reviewed: Reviewed by anesthesiologist Result Diagram: 10/13/1872310/13/18723 Laboratory Tests 10/13/18 07:24 test: N/A Studies: CXR (No evidence of congestive heart or pneumonia.) Pre-procedure Exam Last vitals Vital Signs Date Temp Pulse Resp B/P (MAP) Pulse Ox O2 O2 Flow FiO2 Time Delivery Rate 10/13/18 Nasal 4 12:37 Cannula 10/13/18 64 16 149/67 100 12:35 (94) 10/13/18 97.5 11:23 Airway: Adequate mouth opening, Adequate thyromental dist Mallampati: Mallampati II Teeth: Abnormal (unable to assess; pt uncooperative) Lung: Normal Heart: Normal ASA Physical Status ASA physical status: 3 Emergency: None Planned Anesthetic General/MAC: MAC Pre-operative Attestations Prior to commencing anesthesia and surgery, the patient was re-evaluated, there was verification of: *The patient's identity *The results of appropriate recent lab work and preoperative vital signs *The above evaluation not changing prior to induction *Anesthetic plan, risk benefits, alternative and complications discussed with patient/family; questions answered; patient/family understands, accepts and wishes to proceed. WESTON HOLM Oct 13, 2018 12:46
[2018-10-13] MEDS ORDERED: PROPOFOL 60 ML ONE (12:47)
[2018-10-13] MEDS ORDERED: PROPOFOL 200 MG INJ ONE (12:47)
[2018-10-13] MEDS ORDERED: LIDOCAINE 2% (SDV) 5 ML INJ ONE (12:47)
[2018-10-13] MEDS ORDERED: ONDANSETRON 4 MG INJ IV PRN (13:00)
[2018-10-13] MEDS ORDERED: ALBUTEROL 0.083% (NEB) 2.5 MG/3 ML AMP HHN PRN (13:00)
[2018-10-13] MEDS ORDERED: LABETALOL HCL 20MG INJ IV PRN (13:00)
[2018-10-13] MEDS ORDERED: FENTAnyl 50 MCG/ML VIAL IV PRN (13:00)
[2018-10-13] MEDS ORDERED: ACETAMINOPHEN 500 MG TAB PO PRN (13:00)
[2018-10-13] MEDS ORDERED: DIPHENHYDRAMINE 50 MG INJ IV PRN (13:00)
--- NOTE | 2018-10-13 13:12 | PAC ---
Date/Time of Note Date/Time of Note DATE: 10/13/18 TIME: 13:11 Post-Anesthesia Notes Post-Anesthesia Note Last documented vital signs Vital Signs Date Temp Pulse Resp B/P (MAP) Pulse Ox O2 O2 Flow FiO2 Time Delivery Rate 10/13/18 98 54 18 93/42 100 Nasal 4 12:37 1307 Cannula fa ce mask 8L 10/13/18 64 16 149/67 100 12:35 (94) 10/13/18 97.5 11:23 Activity: WNL Respiratory function: WNL Cardiovascular function: WNL Mental status: Baseline Pain reasonably controlled: Yes Hydration appropriate: Yes Nausea/Vomiting absent: Yes WESTON HOLM Oct 13, 2018 13:12
--- NOTE | 2018-10-13 14:41 | CONS ---
Assessment/Plan Assessment/Plan Hospital Course (Demo Recall) No acute events no fevers overnight WBC 10.9 neutrophils 76.7 BUN 27 creatinine 1.04 Microbiology: Blood cultures negative, urine culture + MDR Kleb, repeat cx + yeast Chest x-ray on admission revealed no evidence of CHF or pneumonia. Renal ultrasound revealed no hydronephrosis and no nephrolithiasis. 3.1 x 2 x 2.1 cm hypoechoic lesion left pole of the kidney questionable neoplasm Antimicrobials: Merrem Physical examination: Well-developed chronically ill-appearing wasted elderly woman who is in no distress. Head atraumatic normocephalic neck is supple chest rise symmetrical breath sounds diminished bases. Heart: S1-S2. Abdomen soft bowel sounds present. Extremities with dependent bilateral lower extremities edema Assessment: 1. Sepsis, present on admission 2. Gram-negative melvi/yeast UTI 3. Acute on chronic anemia 4. Coronary artery disease with a history of CABG 5. Echo dense structure seen by tricuspid valve, right atrium and IVC- thrombus, vegetation versus tumor=== completed 6 weeks IV antibiotics> 6. History of renal cell carcinoma status post nephrectomy 7. Diabetes 8. R heel decub possible osteomyelitis per CT Plan: Add vancomycin, f/u GI/renal/card/podiatry rec-s Consultation Date/Type/Reason Admit Date/Time Oct 07, 2018 at 03:37 Initial Consult Date 10/07/18 Type of Consult id Requesting Provider: JAGJIT MONTES MD Date/Time of Note DATE: 10/13/18 TIME: 14:38 Exam/Review of Systems Exam Vitals Vital Signs Date Temp Pulse Resp B/P (MAP) Pulse Ox O2 O2 Flow FiO2 Time Delivery Rate 10/13/18 60 20 121/47 100 Nasal 2.0 13:30 (71) Cannula 10/13/18 98.0 13:08 Intake and Output 10/12/18 10/12/18 10/13/18 1515:00 23:00 07:00 IntakeIntake Total 300 ml 100 ml OutputOutput Total 1000 ml BalanceBalance 300 ml -1000 ml 100 ml Results Result Diagram: 10/13/1872310/13/18723 Results 24hrs Laboratory Tests Test 10/12/18 17:49 10/12/18 20:58 10/13/18 07:24 10/13/18 07:56 Bedside Glucose 195 185 238 H White Blood Count 10.9 #H Red Blood Count 3.30 L Hemoglobin 8.7 L Hematocrit 28.3 L Mean Corpuscular 85.8 Volume Mean Corpuscular 26.4 L Hemoglobin Mean Corpuscular 30.7 L Hemoglobin Concent Red Cell 18.3 H Distribution Width Platelet Count 334 Mean Platelet 10.0 Volume Immature 0.600 H Granulocytes % Neutrophils % 76.7 Lymphocytes % 14.6 L Monocytes % 6.9 Eosinophils % 1.0 Basophils % 0.2 Nucleated Red 0.0 Blood Cells % Immature 0.060 H Granulocytes # Neutrophils # 8.3 H Lymphocytes # 1.6 Monocytes # 0.8 Eosinophils # 0.1 Basophils # 0.0 Nucleated Red 0.0 Blood Cells # Prothrombin Time 12.9 Prothrombin Time 1.0 Ratio INR International 0.96 Normalized Ratio Sodium Level 138 Potassium Level 3.6 Chloride Level 109 Carbon Dioxide 23 Level Anion Gap 6 Blood Urea 27 H Nitrogen Creatinine 1.04 H Est Glomerular Filtrat Rate mL/min Glucose Level 199 Calcium Level 9.0 Test 10/13/18 10:55 10/13/18 11:38 Lab Scanned Report REFERENCE LAB Bedside Glucose 239 H Medications Medication Current Medications Allopurinol (Zyloprim) 100 mg BID PO Last administered on 10/12/18 10:11; Admin Dose 100 MG; Start 10/07/18 at 21:00 Aspirin (Halfprin) 81 mg DAILY PO Last administered on 10/08/18at 08:14; Admin Dose 81 MG; Start 10/08/18 at 09:00; Status Hold Carvedilol (Coreg) 3.125 mg BID PO Last administered on 10/12/18at 10:12; Admin Dose 3.125 MG; Start 10/07/18 at 21:00 Docusate Sodium (Colace) 100 mg TID PO Last administered on 10/12/18 15:26; Admin Dose 100 MG; Start 10/07/18 at 21:00 Pantoprazole (Protonix Tab) 40 mg DAILY@06 PO Last administered on 10/13/18at 05:50; Admin Dose 40 MG; Start 10/08/18 at 06:00 Ferrous Sulfate (Ferrous Sulfate (Ec)) 325 mg DAILY PO Last administered on 10/12/18 10:11; Admin Dose 325 MG; Start 10/08/18 at 09:00 IV Flush (NS 3 ml) 3 ml PER PROTOCOL IV ; Start 10/07/18 at 12:30 Ondansetron HCl (Zofran Inj) 4 mg Q6H PRN IV NAUSEA/VOMITING; Start 10/07/18 at 12:30 Acetaminophen (Tylenol Tab) 650 mg Q6H PRN PO .PAIN 1-3 OR TEMP Last administered on 10/13/18at 00:18; Admin Dose 650 MG; Start 10/07/18 at 12:30 Acetaminophen/ Hydrocodone Bitart ([place] (5/325)) 1 tab Q6H PRN PO .PAIN 4-6 Last administered on 10/12/18at 16:13; Admin Dose 1 TAB; Start 10/07/18 at 12:30 Clonidine (Catapres) 0.1 mg BID PO Last administered on 10/12/18at 10:11; Admin Dose 0.1 MG; Start 10/07/18 at 22:00 Diagnostic Test (Pha) (Accu-Chek) 1 ea 02 XX Last administered on 10/13/18at 02:00; Admin Dose 1 EA; Start 10/08/18 at 02:00 Insulin Aspart (Novolog Insulin Pen) NOVOLOG *MILD* ALGORITHM WITH MEALS BEDTIME SC Last administered on 10/13/18at 11:45; Admin Dose 3 UNIT; Start 10/07/18 at 21:00 Miscellaneous Information 1 ea NOTE XX ; Start 10/07/18 at 21:00 Glucose (Glutose) 15 gm Q15M PRN PO DECREASED GLUCOSE; Start 10/07/18 at 21:00 Glucose (Glutose) 22.5 gm Q15M PRN PO DECREASED GLUCOSE; Start 10/07/18 at 21:00 Dextrose (D50w Syringe) 25 ml Q15M PRN IV DECREASED GLUCOSE; Start 10/07/18 at 21:00 Dextrose (D50w Syringe) 50 ml Q15M PRN IV DECREASED GLUCOSE; Start 10/07/18 at 21:00 Glucagon (Glucagen) 1 mg Q15M PRN IM DECREASED GLUCOSE; Start 10/07/18 at 21:00 Glucose (Glutose) 15 gm Q15M PRN BUCCAL DECREASED GLUCOSE; Start 10/07/18 at 21:00 Meropenem/Sodium Chloride 50 ml @ 100 mls/hr Q12 IVPB Last administered on 10/13/18at 09:16; Admin Dose 100 MLS/HR; Start 10/09/18 at 12:00 Collagenase (Santyl) 1 applic DAILY TOP Last administered on 10/13/18at 09:16; Admin Dose 1 APPLIC; Start 10/09/18 at 19:00 Multivitamins 10 ml/Dextrose/ Sodium Chloride 1,010 ml @ 75 mls/hr Q24H IV Last administered on 10/12/18at 17:50; Admin Dose 75 MLS/HR; Start 10/10/18 at 17:00 Sodium Hypochlorite (Dakins Diluted ()) 1 applic DAILY TP Last administered on 10/13/18at 09:17; Admin Dose 1 APPLIC; Start 10/11/18 at 09:00 Caspofungin 50 mg/ Sodium Chloride 250 ml @ 250 mls/hr Q24H IVPB Last administered on 10/13/18at 11:50; Admin Dose 250 MLS/HR; Start 10/12/18 at 11:00 Quetiapine Fumarate (Seroquel) 25 mg BID@0900,1200 PO Last administered on 10/12/18at 15:26; Admin Dose 25 MG; Start 10/11/18 at 12:00 Quetiapine Fumarate (Seroquel) 50 mg HS PO Last administered on 10/11/18at 21:02; Admin Dose 50 MG; Start 10/11/18 at 21:00 Amiodarone HCl (Cordarone) 100 mg DAILY PO ; Start 10/13/18 at 09:00 Fentanyl (Sublimaze) 25 mcg PACU ORDER PRN IV MILD PAIN 1-3; Start 10/13/18 at 13:00; Stop 10/13/18 at 17:00 Ondansetron HCl (Zofran Inj) 4 mg PACU ORDER PRN IV NAUSEA/VOMITING; Start 09/29 08/17 at 13:00; Stop 10/13/18 at 17:00 Labetalol HCl (Labetalol) 5 mg PACU ORDER PRN IV HIGH BLOOD PRESSURE; Start 10/13/18 at 13:00; Stop 10/13/18 at 17:00 Albuterol (Proventil 0.083% (Neb)) 2.5 mg PACU ORDER PRN HHN .WHEEZING; Start 10/13/18 at 13:00; Stop 10/13/18 at 17:00 Diphenhydramine HCl (Benadryl) 25 mg PACU ORDER PRN IV .PRURITUS; Start 10/13/18 at 13:00; Stop 10/13/18 at 17:00 Acetaminophen (Tylenol Tab) 1,000 mg ONCE PRN PO pain; Start 10/13/18 at 13:00; Stop 10/14/18 at 12:59 BARBARA ORDAZ NP Oct 13, 2018 14:41
[2018-10-13] MEDS ORDERED: VANCOMYCIN IV PER PHARMACY XX SCH (15:00)
[2018-10-13] MEDS: INSULIN GLARGINE [LANTus] (100 UNITS/ML) SYG SC SCH (15:30)
--- NOTE | 2018-10-13 17:00 | PN ---
Date/Time of Note Date/Time of Note DATE: 10/13/18 TIME: 17:00 Assessment/Plan VTE Prophylaxis Risk score (from Ns)>0 risk: 4 SCD applied (from Ns): Yes Pharmacological prophylaxis: NA/contraindicated Pharm contraindication: bleeding Lines/Catheters IV Catheter Type (from [facility]): Peripheral IV Urinary Cath still in place: Yes Reason Cath still needed: urinary retention Assessment/Plan Hospital Course Patient is status post endograft endoscopy today, resume diet per GI recommendations. Assessment/Plan -Anemia, history of emesis at home and loss of appetite. Dr. Winkler is following in gastroenterology consultation. -Sepsis secondary to urinary tract infection and possible early pneumonia. Continue antibiotics per ID. Dr. Elias is following in infection disease consultation. -Gram-negative rods UTI. -Hyperkalemia, resolved, status post treatment -Acute kidney injury, continue gentle hydration, monitor BUN and creatinine. Dr. Arraega is following in nephrology consultation. -Hypertension -Systolic congestive heart failure. Dr. Chávez is following in cardiology consultation. -Cardiomyopathy with ejection fraction 50% -Atrial fibrillation, patient did not tolerate anticoagulation in the past due to bleeding and anemia, patient was on aspirin which is currently held due significant drop in hemoglobin. -Coronary artery disease, status post CABG -Diabetes mellitus type 2, continue Lantus and pre-meal NovoLog. -History of endocarditis, status post treatment -Sacral, right foot, and left garcia wounds present on admission. Continue current care per wound care recommendations. -Right heel wound, Dr. Garland is following and podiatry consultation -History of left femoral artery thrombectomy, left garcia open wound. Dr. Dawson is asked to see patient in vascular surgery consultation for evalua tion of left garcia wound. Further recommendations based on clinical course. Plan of care discussed with Dr. Mi. Result Diagram: 10/13/18 0710/13/18 0724 Results 24hrs Laboratory Tests Test 10/12/18 17:49 10/12/18 20:58 10/13/18 07:24 10/13/18 07:56 Bedside Glucose 195 185 238 H White Blood Count 10.9 #H Red Blood Count 3.30 L Hemoglobin 8.7 L Hematocrit 28.3 L Mean Corpuscular 85.8 Volume Mean Corpuscular 26.4 L Hemoglobin Mean Corpuscular 30.7 L Hemoglobin Concent Red Cell 18.3 H Distribution Width Platelet Count 334 Mean Platelet 10.0 Volume Immature 0.600 H Granulocytes % Neutrophils % 76.7 Lymphocytes % 14.6 L Monocytes % 6.9 Eosinophils % 1.0 Basophils % 0.2 Nucleated Red 0.0 Blood Cells % Immature 0.060 H Granulocytes # Neutrophils # 8.3 H Lymphocytes # 1.6 Monocytes # 0.8 Eosinophils # 0.1 Basophils # 0.0 Nucleated Red 0.0 Blood Cells # Prothrombin Time 12.9 Prothrombin Time 1.0 Ratio INR International 0.96 Normalized Ratio Sodium Level 138 Potassium Level 3.6 Chloride Level 109 Carbon Dioxide 23 Level Anion Gap 6 Blood Urea 27 H Nitrogen Creatinine 1.04 H Est Glomerular Filtrat Rate mL/min Glucose Level 199 Calcium Level 9.0 Test 10/13/18 10:55 10/13/18 11:38 Lab Scanned Report REFERENCE LAB Bedside Glucose 239 H Exam/Review of Systems Exam Vitals Vital Signs Date Temp Pulse Resp B/P (MAP) Pulse Ox O2 O2 Flow FiO2 Time Delivery Rate 10/13/18 98.3 65 17 165/71 98 15:19 (102) 10/13/18 Nasal 2.0 13:30 Cannula Intake and Output 10/12/18 10/12/18 10/13/18 1515:00 23:00 07:00 IntakeIntake Total 300 ml 100 ml OutputOutput Total 1000 ml BalanceBalance 300 ml -1000 ml 100 ml Exam Constitutional: alert, oriented Respiratory: diminished breath sounds Cardiovascular: irregular rhythm Gastrointestinal: soft, non-tender Genitourinary - Male: other (Incontinent of urine) Musculoskeletal: nl extremities to inspection Extremities: normal pulses Neurological: nl mental status Skin: other (multiple wounds) Results Results 24hrs Laboratory Tests Test 10/12/18 17:49 10/12/18 20:58 10/13/18 07:24 10/13/18 07:56 Bedside Glucose 195 185 238 H White Blood Count 10.9 #H Red Blood Count 3.30 L Hemoglobin 8.7 L Hematocrit 28.3 L Mean Corpuscular 85.8 Volume Mean Corpuscular 26.4 L Hemoglobin Mean Corpuscular 30.7 L Hemoglobin Concent Red Cell 18.3 H Distribution Width Platelet Count 334 Mean Platelet 10.0 Volume Immature 0.600 H Granulocytes % Neutrophils % 76.7 Lymphocytes % 14.6 L Monocytes % 6.9 Eosinophils % 1.0 Basophils % 0.2 Nucleated Red 0.0 Blood Cells % Immature 0.060 H Granulocytes # Neutrophils # 8.3 H Lymphocytes # 1.6 Monocytes # 0.8 Eosinophils # 0.1 Basophils # 0.0 Nucleated Red 0.0 Blood Cells # Prothrombin Time 12.9 Prothrombin Time 1.0 Ratio INR International 0.96 Normalized Ratio Sodium Level 138 Potassium Level 3.6 Chloride Level 109 Carbon Dioxide 23 Level Anion Gap 6 Blood Urea 27 H Nitrogen Creatinine 1.04 H Est Glomerular Filtrat Rate mL/min Glucose Level 199 Calcium Level 9.0 Test 10/13/18 10:55 10/13/18 11:38 Lab Scanned Report REFERENCE LAB Bedside Glucose 239 H Medications Medication Current Medications Allopurinol (Zyloprim) 100 mg BID PO Last administered on 10/12/18 10:11; Admin Dose 100 MG; Start 10/07/18 at 21:00 Aspirin (Halfprin) 81 mg DAILY PO Last administered on 10/08/18at 08:14; Admin Dose 81 MG; Start 10/08/18 at 09:00; Status Hold Carvedilol (Coreg) 3.125 mg BID PO Last administered on 10/12/18 10:12; Admin Dose 3.125 MG; Start 10/07/18 at 21:00 Docusate Sodium (Colace) 100 mg TID PO Last administered on 10/12/18 15:26; Admin Dose 100 MG; Start 10/07/18 at 21:00 Pantoprazole (Protonix Tab) 40 mg DAILY@06 PO Last administered on 10/13/18at 05:50; Admin Dose 40 MG; Start 10/08/18 at 06:00 Ferrous Sulfate (Ferrous Sulfate (Ec)) 325 mg DAILY PO Last administered on 10/12/18 10:11; Admin Dose 325 MG; Start 10/08/18 at 09:00 IV Flush (NS 3 ml) 3 ml PER PROTOCOL IV ; Start 10/07/18 at 12:30 Ondansetron HCl (Zofran Inj) 4 mg Q6H PRN IV NAUSEA/VOMITING; Start 10/07/18 at 12:30 Acetaminophen (Tylenol Tab) 650 mg Q6H PRN PO .PAIN 1-3 OR TEMP Last administered on 7/15/19at 00:18; Admin Dose 650 MG; Start 10/07/18 at 12:30 Acetaminophen/ Hydrocodone Bitart ([place] (5/325)) 1 tab Q6H PRN PO .PAIN 4-6 Last administered on 10/12/18at 16:13; Admin Dose 1 TAB; Start 10/07/18 at 12:30 Clonidine (Catapres) 0.1 mg BID PO Last administered on 10/12/18at 10:11; Admin Dose 0.1 MG; Start 10/07/18 at 22:00 Diagnostic Test (Pha) (Accu-Chek) 1 ea 02 XX Last administered on 10/13/18at 02:00; Admin Dose 1 EA; Start 10/08/18 at 02:00 Insulin Aspart (Novolog Insulin Pen) NOVOLOG *MILD* ALGORITHM WITH MEALS BEDTIME SC Last administered on 10/13/18at 11:45; Admin Dose 3 UNIT; Start 10/07/18 at 21:00 Miscellaneous Information 1 ea NOTE XX ; Start 10/07/18 at 21:00 Glucose (Glutose) 15 gm Q15M PRN PO DECREASED GLUCOSE; Start 10/07/18 at 21:00 Glucose (Glutose) 22.5 gm Q15M PRN PO DECREASED GLUCOSE; Start 10/07/18 at 21:00 Dextrose (D50w Syringe) 25 ml Q15M PRN IV DECREASED GLUCOSE; Start 10/07/18 at 21:00 Dextrose (D50w Syringe) 50 ml Q15M PRN IV DECREASED GLUCOSE; Start 10/07/18 at 21:00 Glucagon (Glucagen) 1 mg Q15M PRN IM DECREASED GLUCOSE; Start 10/07/18 at 21:00 Glucose (Glutose) 15 gm Q15M PRN BUCCAL DECREASED GLUCOSE; Start 10/07/18 at 21:00 Meropenem/Sodium Chloride 50 ml @ 100 mls/hr Q12 IVPB Last administered on 10/13/18at 09:16; Admin Dose 100 MLS/HR; Start 10/09/18 at 12:00 Collagenase (Santyl) 1 applic DAILY TOP Last administered on 10/13/18at 09:16; A dmin Dose 1 APPLIC; Start 10/09/18 at 19:00 Sodium Hypochlorite (Dakins Diluted ()) 1 applic DAILY TP Last administered on 10/13/18at 09:17; Admin Dose 1 APPLIC; Start 10/11/18 at 09:00 Caspofungin 50 mg/ Sodium Chloride 250 ml @ 250 mls/hr Q24H IVPB Last administered on 10/13/18at 11:50; Admin Dose 250 MLS/HR; Start 10/12/18 at 11:00 Quetiapine Fumarate (Seroquel) 25 mg BID@0900,1200 PO Last administered on 10/12/18at 15:26; Admin Dose 25 MG; Start 10/11/18 at 12:00 Quetiapine Fumarate (Seroquel) 50 mg HS PO Last administered on 10/11/18at 21:02; Admin Dose 50 MG; Start 10/11/18 at 21:00 Amiodarone HCl (Cordarone) 100 mg DAILY PO ; Start 10/13/18 at 09:00 Fentanyl (Sublimaze) 25 mcg PACU ORDER PRN IV MILD PAIN 1-3; Start 10/13/18 at 13:00; Stop 10/13/18 at 17:00 Ondansetron HCl (Zofran Inj) 4 mg PACU ORDER PRN IV NAUSEA/VOMITING; Start 10/13/18 at 13:00; Stop 10/13/18 at 17:00 Labetalol HCl (Labetalol) 5 mg PACU ORDER PRN IV HIGH BLOOD PRESSURE; Start 10/13/18 at 13:00; Stop 10/13/18 at 17:00 Albuterol (Proventil 0.083% (Neb)) 2.5 mg PACU ORDER PRN HHN .WHEEZING; Start 10/13/18 at 13:00; Stop 10/13/18 at 17:00 Diphenhydramine HCl (Benadryl) 25 mg PACU ORDER PRN IV .PRURITUS; Start 10/13/18 at 13:00; Stop 10/13/18 at 17:00 Acetaminophen (Tylenol Tab) 1,000 mg ONCE PRN PO pain; Start 10/13/18 at 13:00; Stop 10/14/18 at 12:59 Vancomycin HCl (Vanco Iv Per Pharmacy) VANCOMYCIN PER PHARMACY PER PROTOCOL XX ; Start 10/13/18 at 15:00 Insulin Glargine (Lantus) 12 units DAILY@1200 SC ; Start 10/13/18 at 15:30 Vancomycin/Sodium Chloride 250 ml @ 83.333 mls/ hr ONCE IVPB ; Start 10/13/18 at 17:30; Stop 10/13/18 at 20:29 Vancomycin HCl 250 ml @ 125 mls/hr Q36H IVPB ; Start 10/15/18 at 05:00 OCTAVIANO SHAFFER Oct 13, 2018 17:00
[2018-10-13] MEDS ORDERED: VANCOMYCIN 1.5 GM/NS 250 ML 250 ML IVPB SCH (17:30)
--- NOTE | 2018-10-13 18:23 | PN ---
"Date/Time of Note Date/Time of Note DATE: 10/13/18 TIME: 18:20 Assessment/Plan Lines/Catheters IV Catheter Type (from [facility]): Peripheral IV Odonnell in Place (from Nrs): Yes Assessment/Plan Chief Complaint/Hosp Course 1. Right buttock wound: -debridement as needed -local care -frequent turning and off-loading -low air loss mattress -vitamin c -short term zinc -optimize nutrition -foot wounds per podiatry- already consulted -calf wound per vascular 2. UTI: -abx per sensitivity -frequent bladder emptying/cath care 3. BRANDON: hypoechoic lesion left kidney, possible neoplasm; hx of renal ca and nephrectomy -judicious fluids -limit nephrotoxic meds -armenta for neoplasm>per medical team 4. Microcytic hypochromic anemia: sp prbc tx -monitor -transfuse as needed -GI w/u in process 5. Obesity bmi 31 -diet and exercise optimization -encourage weight loss 6. Poor appetite: -supportive -treat infections 7. Hepatic steatosis: -nutrition and weight optimization -medical fu Thank you Subjective [address] with probable osteo. No fevers, labored breathing, congested cough, vomiting, diarrhea, sz, rash. Labs noted. Exam/Review of Systems Vital Signs Vitals Vital Signs Date Temp Pulse Resp B/P (MAP) Pulse Ox O2 O2 Flow FiO2 Time Delivery Rate 10/13/18 98.3 65 17 165/71 98 15:19 (102) 10/13/18 Nasal 2.0 13:30 Cannula Intake and Output 10/12/18 10/12/18 10/13/18 1515:00 23:00 07:00 IntakeIntake Total 300 ml 100 ml OutputOutput Total 1000 ml BalanceBalance 300 ml -1000 ml 100 ml Exam Free Text/Dictation Constitutional: alert; No oriented (confused) Psych: anxiety Head: normocephalic, atraumatic Eyes: nl conjunctiva, EOMI, nl lids, nl sclera ENMT: nl external ears & nose, nl nasal mucosa & septum, mucosa pink and moist Neck: supple, non-tender Respiratory: normal air movement; No congested cough Cardiovascular: regular rate and rhythm, nl pulses; No edema Gastrointestinal: soft, non-tender; No distended, No rebound or guarding Genitourinary - Female: nl external genitalia Musculoskeletal: nl extremities to inspection, muscle weakness (gen weakness) Extremities: normal pulses; No edema, No pitting pedal edema Neurological: nl speech; No nl mental status (forgetful), No nl strength (gen weakness) Skin: other (Multiple wounds: right buttock:min slough, no periwound erythema/drainage/odor | Left calf:min slough, min alecia wound erythema | Bilateral foot wounds); No rash or lesions Results Result Diagram: 10/13/1872310/13/18723 Results Last [address]: 1. Slight cortical erosive change appears to be present involving the calcaneal tuberosity that may reflect osteomyelitis with the given history. 2. Mild to moderate midfoot arthrosis. 3. MRI may be helpful for further evaluation of osteomyelitis if warranted. MARINA WADE MD Oct 13, 2018 18:23"
--- NOTE | 2018-10-13 19:17 | CONS ---
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 Echo dense structure seen by tricuspid valve, right atrium and IVC-thrombus, vegetation versus tumor CAD with history of CABG History of renal carcinoma status post nephrectomy approximately 8 years ago History of hypertension Diabetes Paroxysmal atrial fibrillation, intolerant to anticoagulation Patient presents with acute kidney injury, hyperkalemia and encephalopathy Renal function continues to improve Hold all nephro toxic medications Hemoglobin better after blood transfusion Blood pressure trend improving, continue antihypertensives with holding parameters Spoke to podiatry, plan for LE debridement. Pt appears near euvolemic, given multiple cardiac risk factors, pt at an intermediate risk for untoward cardiac events, appears currently optimized. Consultation Date/Type/Reason Admit Date/Time Oct 07, 2018 at 03:37 Initial Consult Date 10/07/18 Type of Consult Cardiology Requesting Provider: JAGJIT MONTES MD Date/Time of Note DATE: 10/13/18 TIME: 19:15 24 HR Interval Summary Free Text/Dictation pt seen and examined. still confused Exam/Review of Systems Vital Signs Vitals Vital Signs Date Temp Pulse Resp B/P (MAP) Pulse Ox O2 O2 Flow FiO2 Time Delivery Rate 10/13/18 98.3 65 17 165/71 98 15:19 (102) 10/13/18 Nasal 2.0 13:30 Cannula Intake and Output 10/12/18 10/12/18 10/13/18 1515:00 23:00 07:00 IntakeIntake Total 300 ml 100 ml OutputOutput Total 1000 ml BalanceBalance 300 ml -1000 ml 100 ml Exam Exam awake, nad, son at bedside Head: normocephalic Respiratory: other (course bs, no wheeze) Cardiovascular: regular rate and rhythm Gastrointestinal: soft, non-tender, bowel sounds Extremities: edema Labs Result Diagram: 10/13/1824 10/13/18 0724 Results 24hrs Laboratory Tests Test 10/12/18 20:58 10/13/18 07:24 10/13/18 07:56 10/13/18 10:55 Bedside Glucose 185 238 H White Blood Count 10.9 #H Red Blood Count 3.30 L Hemoglobin 8.7 L Hematocrit 28.3 L Mean Corpuscular 85.8 Volume Mean Corpuscular 26.4 L Hemoglobin Mean Corpuscular 30.7 L Hemoglobin Concent Red Cell 18.3 H Distribution Width Platelet Count 334 Mean Platelet 10.0 Volume Immature 0.600 H Granulocytes % Neutrophils % 76.7 Lymphocytes % 14.6 L Monocytes % 6.9 Eosinophils % 1.0 Basophils % 0.2 Nucleated Red 0.0 Blood Cells % Immature 0.060 H Granulocytes # Neutrophils # 8.3 H Lymphocytes # 1.6 Monocytes # 0.8 Eosinophils # 0.1 Basophils # 0.0 Nucleated Red 0.0 Blood Cells # Prothrombin Time 12.9 Prothrombin Time 1.0 Ratio INR International 0.96 Normalized Ratio Sodium Level 138 Potassium Level 3.6 Chloride Level 109 Carbon Dioxide 23 Level Anion Gap 6 Blood Urea 27 H Nitrogen Creatinine 1.04 H Est Glomerular Filtrat Rate mL/min Glucose Level 199 Calcium Level 9.0 Lab Scanned Report REFERENCE LAB Test 10/13/18 11:38 10/13/18 17:00 Bedside Glucose 239 H 182 Medications Medications Current Medications Allopurinol (Zyloprim) 100 mg BID PO Last administered on 10/12/18 10:11; Admin Dose 100 MG; Start 10/07/18 at 21:00 Aspirin (Halfprin) 81 mg DAILY PO Last administered on 10/08/18at 08:14; Admin Dose 81 MG; Start 10/08/18 at 09:00; Status Hold Carvedilol (Coreg) 3.125 mg BID PO Last administered on 10/12/18at 10:12; Admin Dose 3.125 MG; Start 10/07/18 at 21:00 Docusate Sodium (Colace) 100 mg TID PO Last administered on 10/12/18at 15:26; Admin Dose 100 MG; Start 10/07/18 at 21:00 Pantoprazole (Protonix Tab) 40 mg DAILY@06 PO Last administered on 10/13/18at 05:50; Admin Dose 40 MG; Start 10/08/18 at 06:00 Ferrous Sulfate (Ferrous Sulfate (Ec)) 325 mg DAILY PO Last administered on 10/12/18at 10:11; Admin Dose 325 MG; Start 10/08/18 at 09:00 IV Flush (NS 3 ml) 3 ml PER PROTOCOL IV ; Start 10/07/18 at 12:30 Ondansetron HCl (Zofran Inj) 4 mg Q6H PRN IV NAUSEA/VOMITING; Start 10/07/18 at 12:30 Acetaminophen (Tylenol Tab) 650 mg Q6H PRN PO .PAIN 1-3 OR TEMP Last administered on 10/13/18at 00:18; Admin Dose 650 MG; Start 10/07/18 at 12:30 Acetaminophen/ Hydrocodone Bitart ([place] (5/325)) 1 tab Q6H PRN PO .PAIN 4-6 Last administered on 10/12/18at 16:13; Admin Dose 1 TAB; Start 10/07/18 at 12:30 Clonidine (Catapres) 0.1 mg BID PO Last administered on 10/12/18at 10:11; Admin Dose 0.1 MG; Start 10/07/18 at 22:00 Diagnostic Test (Pha) (Accu-Chek) 1 ea 02 XX Last administered on 10/13/18at 02:00; Admin Dose 1 EA; Start 10/08/18 at 02:00 Insulin Aspart (Novolog Insulin Pen) NOVOLOG *MILD* ALGORITHM WITH MEALS BEDTIME SC Last administered on 10/13/18at 17:13; Admin Dose 2 UNIT; Start 10/07/18 at 21:00 Miscellaneous Information 1 ea NOTE XX ; Start 10/07/18 at 21:00 Glucose (Glutose) 15 gm Q15M PRN PO DECREASED GLUCOSE; Start 10/07/18 at 21:00 Glucose (Glutose) 22.5 gm Q15M PRN PO DECREASED GLUCOSE; Start 10/07/18 at 21:00 Dextrose (D50w Syringe) 25 ml Q15M PRN IV DECREASED GLUCOSE; Start 10/07/18 at 21:00 Dextrose (D50w Syringe) 50 ml Q15M PRN IV DECREASED GLUCOSE; Start 10/07/18 at 21:00 Glucagon (Glucagen) 1 mg Q15M PRN IM DECREASED GLUCOSE; Start 10/07/18 at 21:00 Glucose (Glutose) 15 gm Q15M PRN BUCCAL DECREASED GLUCOSE; Start 10/07/18 at 21:00 Meropenem/Sodium Chloride 50 ml @ 100 mls/hr Q12 IVPB Last administered on 10/13/18at 09:16; Admin Dose 100 MLS/HR; Start 10/09/18 at 12:00 Collagenase (Santyl) 1 applic DAILY TOP Last administered on 10/13/18at 09:16; Admin Dose 1 APPLIC; Start 10/09/18 at 19:00 Sodium Hypochlorite (Dakins Diluted (40)) 1 applic DAILY TP Last administered on 10/13/18at 09:17; Admin Dose 1 APPLIC; Start 10/11/18 at 09:00 Caspofungin 50 mg/ Sodium Chloride 250 ml @ 250 mls/hr Q24H IVPB Last administered on 10/13/18at 11:50; Admin Dose 250 MLS/HR; Start 10/12/18 at 11:00 Quetiapine Fumarate (Seroquel) 25 mg BID@0900,1200 PO Last administered on 10/12/18at 15:26; Admin Dose 25 MG; Start 10/11/18 at 12:00 Quetiapine Fumarate (Seroquel) 50 mg HS PO Last administered on 10/11/18at 21:02; Admin Dose 50 MG; Start 10/11/18 at 21:00 Amiodarone HCl (Cordarone) 100 mg DAILY PO ; Start 10/13/18 at 09:00 Acetaminophen (Tylenol Tab) 1,000 mg ONCE PRN PO pain; Start 10/13/18 at 13:00; Stop 10/14/18 at 12:59 Vancomycin HCl (Vanco Iv Per Pharmacy) VANCOMYCIN PER PHARMACY PER PROTOCOL XX ; Start 10/13/18 at 15:00 Insulin Glargine (Lantus) 12 units DAILY@1200 SC ; Start 10/13/18 at 15:30 Vancomycin/Sodium Chloride 250 ml @ 83.333 mls/ hr ONCE IVPB ; Start 10/13/18 at 17:30; Stop 10/13/18 at 20:29 Vancomycin HCl 250 ml @ 125 mls/hr Q36H IVPB ; Start 10/15/18 at 05:00 Alex Chávez DO Oct 13, 2018 19:17
[2018-10-13] MEDS: HYDROCODONE/APAP (5/325) TAB PO PRN (21:07)
[2018-10-14] MEDS: ACCU-CHEK XX SCH (01:17)
[2018-10-14 04:02] VITALS: BP 143/68; PULSE 57; RESP 20
[2018-10-14] MEDS: PANTOPRAZOLE (EC) 40 MG TAB PO SCH (06:44)
--- NOTE | 2018-10-14 07:21 | CONS ---
Assessment/Plan Assessment/Plan Hospital Course (Demo Recall) 82 yo female with hl/o anemia No signs GI bleeding per RN. She had been agitated yesterday which was not baseline for her. She was started on seroquel. Lethargic. When I try to examine her she starts to scream. 1. Urinary tract infection. 2. Sepsis. 3. Status post coronary artery bypass graft. 4. Peripheral vascular disease. 5. Atrial fibrillation. 6. Status post surgery for renal cell carcinoma 8 years ago. 7. Diabetes. 8. Hypertension. 9. Severe anemia. -IV iron 10. Transaminitis -elevated ALT/AST -improving -CBD 7mm, t bili wnl. 11. Elevated CEA: 24.1 12. Chronic gastritis 13. S/P EGD 10/13 14. Fatty liver with possible hepatocellular disease noted on US PLAN: [facility] and for active GI bleeding She will need colonoscopy, pt and son refused NGT to clear pt bowels, poor prep with just tap water enemas pending pathology of stomach Pt examined and plan of care d/w Dr. Winkler Consultation Date/Type/Reason Admit Date/Time Oct 07, 2018 at 03:37 Initial Consult Date 10/07/18 Requesting Provider: JAGJIT MONTES MD Date/Time of Note DATE: 10/14/18 TIME: 07:14 Exam/Review of Systems Exam Vitals Vital Signs Date Temp Pulse Resp B/P (MAP) Pulse Ox O2 O2 Flow FiO2 Time Delivery Rate 10/14/18 97.7 57 20 143/68 98 Nasal 04:02 (93) Cannula 10/13/18 2.0 13:30 Intake and Output 10/13/18 10/13/18 10/14/18 1515:00 23:00 07:00 IntakeIntake Total 750 ml 240 ml OutputOutput Total 500 ml 500 ml BalanceBalance -500 ml 750 ml -260 ml Constitutional: alert Eyes: nl sclera, PERRL Respiratory: normal air movement Cardiovascular: regular rate and rhythm Gastrointestinal: soft, non-tender, bowel sounds Extremities: normal pulses Neurological: confused Results Result Diagram: 10/14/18 0621 10/13/18 0724 Results 24hrs Laboratory Tests Test 10/13/18 07:24 10/13/18 07:56 10/13/18 10:55 10/13/18 11:38 White Blood Count 10.9 #H Red Blood Count 3.30 L Hemoglobin 8.7 L Hematocrit 28.3 L Mean Corpuscular 85.8 Volume Mean Corpuscular 26.4 L Hemoglobin Mean Corpuscular 30.7 L Hemoglobin Concent Red Cell 18.3 H Distribution Width Platelet Count 334 Mean Platelet 10.0 Volume Immature 0.600 H Granulocytes % Neutrophils % 76.7 Lymphocytes % 14.6 L Monocytes % 6.9 Eosinophils % 1.0 Basophils % 0.2 Nucleated Red 0.0 Blood Cells % Immature 0.060 H Granulocytes # Neutrophils # 8.3 H Lymphocytes # 1.6 Monocytes # 0.8 Eosinophils # 0.1 Basophils # 0.0 Nucleated Red 0.0 Blood Cells # Prothrombin Time 12.9 Prothrombin Time 1.0 Ratio INR International 0.96 Normalized Ratio Sodium Level 138 Potassium Level 3.6 Chloride Level 109 Carbon Dioxide 23 Level Anion Gap 6 Blood Urea 27 H Nitrogen Creatinine 1.04 H Est Glomerular Filtrat Rate mL/min Glucose Level 199 Calcium Level 9.0 Bedside Glucose 238 H 239 H Lab Scanned Report REFERENCE LAB Test 10/13/18 17:00 10/13/18 20:40 10/14/18 06:21 Bedside Glucose 182 140 White Blood Count 10.9 H Red Blood Count 3.17 L Hemoglobin 8.3 L Hematocrit 27.5 L Mean Corpuscular 86.8 Volume Mean Corpuscular 26.2 L Hemoglobin Mean Corpuscular 30.2 L Hemoglobin Concent Red Cell 18.7 H Distribution Width Platelet Count 326 Mean Platelet 10.0 Volume Immature 0.400 Granulocytes % Neutrophils % 70.3 Lymphocytes % 20.1 Monocytes % 7.7 Eosinophils % 1.3 Basophils % 0.2 Nucleated Red 0.0 Blood Cells % Immature 0.040 H Granulocytes # Neutrophils # 7.7 H Lymphocytes # 2.2 Monocytes # 0.8 Eosinophils # 0.1 Basophils # 0.0 Nucleated Red 0.0 Blood Cells # Medications Medication Current Medications Allopurinol (Zyloprim) 100 mg BID PO Last administered on 10/13/18at 20:42; Admin Dose 100 MG; Start 10/07/18 at 21:00 Aspirin (Halfprin) 81 mg DAILY PO Last administered on 10/08/18at 08:14; Admin Dose 81 MG; Start 10/08/18 at 09:00; Status Hold Carvedilol (Coreg) 3.125 mg BID PO Last administered on 10/13/18 20:42; Admin Dose 3.125 MG; Start 10/07/18 at 21:00 Docusate Sodium (Colace) 100 mg TID PO Last administered on 10/13/18 20:41; Admin Dose 100 MG; Start 10/07/18 at 21:00 Pantoprazole (Protonix Tab) 40 mg DAILY@06 PO Last administered on 10/14/18 06:44; Admin Dose 40 MG; Start 10/08/18 at 06:00 Ferrous Sulfate (Ferrous Sulfate (Ec)) 325 mg DAILY PO Last administered on 10/12/18 10:11; Admin Dose 325 MG; Start 10/08/18 at 09:00 IV Flush (NS 3 ml) 3 ml PER PROTOCOL IV ; Start 10/07/18 at 12:30 Ondansetron HCl (Zofran Inj) 4 mg Q6H PRN IV NAUSEA/VOMITING; Start 10/07/18 at 12:30 Acetaminophen (Tylenol Tab) 650 mg Q6H PRN PO .PAIN 1-3 OR TEMP Last administered on 10/13/18 00:18; Admin Dose 650 MG; Start 10/07/18 at 12:30 Acetaminophen/ Hydrocodone Bitart ([place] (5/325)) 1 tab Q6H PRN PO .PAIN 4-6 Last administered on 10/13/18 21:07; Admin Dose 1 TAB; Start 10/07/18 at 12:30 Clonidine (Catapres) 0.1 mg BID PO Last administered on 10/13/18 20:41; Admin Dose 0.1 MG; Start 10/07/18 at 22:00 Diagnostic Test (Pha) (Accu-Chek) 1 ea 02 XX Last administered on 10/13/18 02:00; Admin Dose 1 EA; Start 10/08/18 at 02:00 Insulin Aspart (Novolog Insulin Pen) NOVOLOG *MILD* ALGORITHM WITH MEALS BEDTIME SC Last administered on 10/13/18 17:13; Admin Dose 2 UNIT; Start 10/07/18 at 21:00 Miscellaneous Information 1 ea NOTE XX ; Start 10/07/18 at 21:00 Glucose (Glutose) 15 gm Q15M PRN PO DECREASED GLUCOSE; Start 10/07/18 at 21:00 Glucose (Glutose) 22.5 gm Q15M PRN PO DECREASED GLUCOSE; Start 10/07/18 at 21:00 Dextrose (D50w Syringe) 25 ml Q15M PRN IV DECREASED GLUCOSE; Start 10/07/18 at 21:00 Dextrose (D50w Syringe) 50 ml Q15M PRN IV DECREASED GLUCOSE; Start 10/07/18 at 21:00 Glucagon (Glucagen) 1 mg Q15M PRN IM DECREASED GLUCOSE; Start 10/07/18 at 21:00 Glucose (Glutose) 15 gm Q15M PRN BUCCAL DECREASED GLUCOSE; Start 10/07/18 at 21:00 Meropenem/Sodium Chloride 50 ml @ 100 mls/hr Q12 IVPB Last administered on 10/13/18at 20:42; Admin Dose 100 MLS/HR; Start 10/09/18 at 12:00 Collagenase (Santyl) 1 applic DAILY TOP Last administered on 10/13/18at 09:16; Admin Dose 1 APPLIC; Start 10/09/18 at 19:00 Sodium Hypochlorite (Dakins Diluted ()) 1 applic DAILY TP Last administered on 10/13/18at 09:17; Admin Dose 1 APPLIC; Start 10/11/18 at 09:00 Caspofungin 50 mg/ Sodium Chloride 250 ml @ 250 mls/hr Q24H IVPB Last administered on 10/13/18at 11:50; Admin Dose 250 MLS/HR; Start 10/12/18 at 11:00 Quetiapine Fumarate (Seroquel) 25 mg BID@0900,1200 PO Last administered on 10/12/18at 15:26; Admin Dose 25 MG; Start 10/11/18 at 12:00 Quetiapine Fumarate (Seroquel) 50 mg HS PO Last administered on 10/13/18at 20:41; Admin Dose 50 MG; Start 10/11/18 at 21:00 Amiodarone HCl (Cordarone) 100 mg DAILY PO ; Start 10/13/18 at 09:00 Acetaminophen (Tylenol Tab) 1,000 mg ONCE PRN PO pain; Start 10/13/18 at 13:00; Stop 10/14/18 at 12:59 Vancomycin HCl (Vanco Iv Per Pharmacy) VANCOMYCIN PER PHARMACY PER PROTOCOL XX ; Start 10/13/18 at 15:00 Insulin Glargine (Lantus) 12 units DAILY@1200 SC ; Start 10/13/18 at 15:30 Vancomycin HCl 250 ml @ 125 mls/hr Q36H IVPB ; Start 10/15/18 at 05:00 MART CALDERON Oct 14, 2018 07:21
[2018-10-14 07:35] VITALS: BP 151/73; PULSE 62; RESP 18
[2018-10-14] MEDS: INSULIN ASPART [NOVOLOG] 3 ML PEN SC SCH ×4 (08:10→21:00)
[2018-10-14] MEDS: FERROUS SULFATE (EC) 325 MG TAB PO SCH (09:01)
[2018-10-14] MEDS: ALLOPURINOL 100 MG TAB PO SCH ×2 (09:01→21:17)
[2018-10-14] MEDS: DOCUSATE SODIUM 100 MG CAP PO SCH ×3 (09:01→21:16)
[2018-10-14] MEDS: AMIODARONE 200 MG TAB PO SCH (09:02)
[2018-10-14] MEDS: DAKINS 0.0125%(1/40) 473 ML SOLUTION TP SCH (09:03)
[2018-10-14] MEDS: MEROPENEM 500MG/50 ML (PMX) 50 ML IVPB SCH ×2 (09:03→21:16)
[2018-10-14] MEDS: COLLAGENASE 5 GM (UD JAR) TOP SCH (09:03)
[2018-10-14] MEDS: QUETIAPINE 25 MG TAB PO SCH ×3 (09:14→21:17)
--- NOTE | 2018-10-14 09:45 | PN ---
"Date/Time of Note Date/Time of Note DATE: 10/14/18 TIME: 09:35 Assessment/Plan Lines/Catheters IV Catheter Type (from [facility]): Peripheral IV Odonnell in Place (from [facility]): Yes Assessment/Plan Chief Complaint/Hosp Course 1. Right buttock wound; Foot wound with probable osteo- -debridement as needed -local care -frequent turning and off-loading -low air loss mattress -vitamin c -short term zinc -optimize nutrition -foot wounds per podiatry> plan for debridement -calf wound per vascular 2. UTI: -abx per sensitivity -frequent bladder emptying/cath care 3. BRANDON: hypoechoic lesion left kidney, possible neoplasm; hx of renal ca and nephrectomy -judicious fluids -limit nephrotoxic meds -armenta for neoplasm>per medical team 4. Microcytic hypochromic anemia: sp prbc tx -monitor -transfuse as needed -GI w/u in process 5. Obesity bmi 31 -diet and exercise optimization -encourage weight loss 6. Poor appetite: -supportive -treat infections 7. Hepatic steatosis: -nutrition and weight optimization -medical fu 8. Gastritis: -PPI Thank you. Patient seen and examined in collaboration with Dr. Isaac Erwin. Subjective 24 Hr Interval Summary Status post EGD. CT noted with probable osteo-. Plan for debridement per podiatry. Intermittent agitation overnight. No fevers, labored breathing, congested cough, vomiting, diarrhea, seizure, rash. Exam/Review of Systems Vital Signs Vitals Vital Signs Date Temp Pulse Resp B/P (MAP) Pulse Ox O2 O2 Flow FiO2 Time Delivery Rate 10/14/18 97.9 62 18 151/73 98 Nasal 07:35 (99) Cannula 10/13/18 2.0 13:30 Intake and Output 10/13/18 10/13/18 10/14/18 1515:00 23:00 07:00 IntakeIntake Total 750 ml 240 ml OutputOutput Total 500 ml 500 ml BalanceBalance -500 ml 750 ml -260 ml Exam Free Text/Dictation Constitutional: alert; No oriented (confused) Psych: anxiety Head: normocephalic, atraumatic Eyes: nl conjunctiva, EOMI, nl lids, nl sclera ENMT: nl external ears & nose, nl nasal mucosa & septum, mucosa pink and moist Neck: supple, non-tender Respiratory: normal air movement; No congested cough Cardiovascular: regular rate and rhythm, nl pulses; No edema Gastrointestinal: soft, non-tender; No distended, No rebound or guarding Genitourinary - Female: nl external genitalia Musculoskeletal: nl extremities to inspection, muscle weakness (gen weakness) Extremities: normal pulses; No edema, No pitting pedal edema Neurological: nl speech; No nl mental status (forgetful), No nl strength (gen weakness) Skin: other (Multiple wounds: right buttock:min slough, no periwound erythema/drainage/odor | Left calf:min slough, min alecia wound erythema | B ilateral foot wounds); No rash or lesions Results Result Diagram: 10/14/1862010/14/18620 JUSTINE GUEVARA NP Oct 14, 2018 09:45"
[2018-10-14] MEDS: CASPOFUNGIN 50 MG in SOD CHLORIDE 0.9% 250 ML IVPB SCH (11:35)
[2018-10-14 11:51] VITALS: BP 104/52; PULSE 59; RESP 17
--- NOTE | 2018-10-14 13:40 | CONS ---
Assessment/Plan Assessment/Plan Hospital Course (Demo Recall) Patient is sleeping looks comfortable no fevers overnight WBC 10.9 platelets 326 BUN 25 creatinine 0.95 Antimicrobials: Vancomycin, Cancidas, Merrem Microbiology: Blood cultures negative, urine culture + MDR Kleb, repeat cx + yeast Chest x-ray on admission revealed no evidence of CHF or pneumonia. Renal ultrasound revealed no hydronephrosis and no nephrolithiasis. 3.1 x 2 x 2.1 cm hypoechoic lesion left pole of the kidney questionable neoplasm Physical examination: Well-developed chronically ill-appearing wasted elderly woman who is in no distress. Head atraumatic normocephalic neck is supple chest rise symmetrical breath sounds diminished bases. Heart: S1-S2. Abdomen soft bowel sounds present. Extremities with dependent bilateral lower extremities edema Assessment: 1. Sepsis, present on admission 2. Gram-negative melvi/yeast UTI 3. Acute on chronic anemia 4. Coronary artery disease with a history of CABG 5. Echo dense structure seen by tricuspid valve, right atrium and IVC-thrombus, vegetation versus tumor=== completed 6 weeks IV antibiotics> 6. History of renal cell carcinoma status post nephrectomy 7. Diabetes 8. R heel decub possible osteomyelitis per CT Plan: Remains unchanged, recommend to keep on antibiotics long-term for possible right heel osteomyelitis, continue management per primary team and consultants Consultation Date/Type/Reason Admit Date/Time Oct 07, 2018 at 03:37 Initial Consult Date 10/07/18 Type of Consult id Requesting Provider: JAGJIT MONTES MD Date/Time of Note DATE: 10/14/18 TIME: 13:39 Exam/Review of Systems Exam Vitals Vital Signs Date Temp Pulse Resp B/P (MAP) Pulse Ox O2 O2 Flow FiO2 Time Delivery Rate 10/14/18 97.8 59 17 104/52 96 Nasal 11:51 (69) Cannula 10/13/18 2.0 13:30 Intake and Output 10/13/18 10/13/18 10/14/18 1515:00 23:00 07:00 IntakeIntake Total 750 ml 240 ml OutputOutput Total 500 ml 500 ml BalanceBalance -500 ml 750 ml -260 ml Results Result Diagram: 10/14/18 0621 10/14/18 0621 Results 24hrs Laboratory Tests Test 10/13/18 17:00 10/13/18 20:40 10/14/18 06:21 10/14/18 07:55 Bedside Glucose 182 140 154 White Blood Count 10.9 H Red Blood Count 3.17 L Hemoglobin 8.3 L Hematocrit 27.5 L Mean Corpuscular 86.8 Volume Mean Corpuscular 26.2 L Hemoglobin Mean Corpuscular 30.2 L Hemoglobin Concent Red Cell 18.7 H Distribution Width Platelet Count 326 Mean Platelet Volume 10.0 Immature 0.400 Granulocytes % Neutrophils % 70.3 Lymphocytes % 20.1 Monocytes % 7.7 Eosinophils % 1.3 Basophils % 0.2 Nucleated Red Blood 0.0 Cells % Immature 0.040 H Granulocytes # Neutrophils # 7.7 H Lymphocytes # 2.2 Monocytes # 0.8 Eosinophils # 0.1 Basophils # 0.0 Nucleated Red Blood 0.0 Cells # Sodium Level 138 Potassium Level 3.7 Chloride Level 112 H Carbon Dioxide Level 22 Anion Gap 4 L Blood Urea Nitrogen 25 H Creatinine 0.95 Est Glomerular Filtrat Rate mL/min Glucose Level 126 # Calcium Level 8.8 Test 10/14/18 11:34 Bedside Glucose 148 Medications Medication Current Medications Allopurinol (Zyloprim) 100 mg BID PO Last administered on 10/14/18 09:01; Admin Dose 100 MG; Start 10/07/18 at 21:00 Aspirin (Halfprin) 81 mg DAILY PO Last administered on 10/08/18 08:14; Admin Dose 81 MG; Start 10/08/18 at 09:00; Status Hold Carvedilol (Coreg) 3.125 mg BID PO Last administered on 10/14/18 09:01; Admin Dose 3.125 MG; Start 10/07/18 at 21:00 Docusate Sodium (Colace) 100 mg TID PO Last administered on 10/14/18 09:01; Admin Dose 100 MG; Start 10/07/18 at 21:00 Pantoprazole (Protonix Tab) 40 mg DAILY@06 PO Last administered on 10/14/18 06:44; Admin Dose 40 MG; Start 10/08/18 at 06:00 Ferrous Sulfate (Ferrous Sulfate (Ec)) 325 mg DAILY PO Last administered on 10/14/18 09:01; Admin Dose 325 MG; Start 10/08/18 at 09:00 IV Flush (NS 3 ml) 3 ml PER PROTOCOL IV ; Start 10/07/18 at 12:30 Ondansetron HCl (Zofran Inj) 4 mg Q6H PRN IV NAUSEA/VOMITING; Start 10/07/18 at 12:30 Acetaminophen (Tylenol Tab) 650 mg Q6H PRN PO .PAIN 1-3 OR TEMP Last administered on 10/13/18at 00:18; Admin Dose 650 MG; Start 10/07/18 at 12:30 Acetaminophen/ Hydrocodone Bitart ([place] (5/325)) 1 tab Q6H PRN PO .PAIN 4-6 Last administered on 10/13/18at 21:07; Admin Dose 1 TAB; Start 10/07/18 at 12:30 Clonidine (Catapres) 0.1 mg BID PO Last administered on 10/14/18 09:00; Admin Dose 0.1 MG; Start 10/07/18 at 22:00 Diagnostic Test (Pha) (Accu-Chek) 1 ea 02 XX Last administered on 10/13/18at 02:00; Admin Dose 1 EA; Start 10/08/18 at 02:00 Insulin Aspart (Novolog Insulin Pen) NOVOLOG *MILD* ALGORITHM WITH MEALS BEDTIME SC Last administered on 10/14/18at 11:43; Admin Dose 1 UNIT; Start 10/07/18 at 21:00 Miscellaneous Information 1 ea NOTE XX ; Start 10/07/18 at 21:00 Glucose (Glutose) 15 gm Q15M PRN PO DECREASED GLUCOSE; Start 10/07/18 at 21:00 Glucose (Glutose) 22.5 gm Q15M PRN PO DECREASED GLUCOSE; Start 10/07/18 at 21:00 Dextrose (D50w Syringe) 25 ml Q15M PRN IV DECREASED GLUCOSE; Start 10/07/18 at 21:00 Dextrose (D50w Syringe) 50 ml Q15M PRN IV DECREASED GLUCOSE; Start 10/07/18 at 21:00 Glucagon (Glucagen) 1 mg Q15M PRN IM DECREASED GLUCOSE; Start 10/07/18 at 21:00 Glucose (Glutose) 15 gm Q15M PRN BUCCAL DECREASED GLUCOSE; Start 10/07/18 at 21:00 Meropenem/Sodium Chloride 50 ml @ 100 mls/hr Q12 IVPB Last administered on 10/14/18at 09:03; Admin Dose 100 MLS/HR; Start 10/09/18 at 12:00 Collagenase (Santyl) 1 applic DAILY TOP Last administered on 10/14/18at 09:03; Admin Dose 1 APPLIC; Start 10/09/18 at 19:00 Sodium Hypochlorite (Dakins Diluted ()) 1 applic DAILY TP Last administered on 10/14/18at 09:03; Admin Dose 1 APPLIC; Start 10/11/18 at 09:00 Caspofungin 50 mg/ Sodium Chloride 250 ml @ 250 mls/hr Q24H IVPB Last administered on 10/14/18at 11:35; Admin Dose 250 MLS/HR; Start 10/12/18 at 11:00 Quetiapine Fumarate (Seroquel) 25 mg BID@0900,1200 PO Last administered on 10/14/18at 11:35; Admin Dose 25 MG; Start 10/11/18 at 12:00 Quetiapine Fumarate (Seroquel) 50 mg HS PO Last administered on 10/13/18at 20:41; Admin Dose 50 MG; Start 10/11/18 at 21:00 Amiodarone HCl (Cordarone) 100 mg DAILY PO Last administered on 10/14/18at 09:02; Admin Dose 100 MG; Start 10/13/18 at 09:00 Vancomycin HCl (Vanco Iv Per Pharmacy) VANCOMYCIN PER PHARMACY PER PROTOCOL XX ; Start 10/13/18 at 15:00 Insulin Glargine (Lantus) 12 units DAILY@1200 SC ; Start 10/13/18 at 15:30 Vancomycin HCl 250 ml @ 125 mls/hr Q36H IVPB ; Start 10/15/18 at 05:00 BARBARA ORDAZ NP Oct 14, 2018 13:40
[2018-10-14] MEDS: INSULIN GLARGINE [LANTus] (100 UNITS/ML) SYG SC SCH (13:44)
[2018-10-14 15:02] VITALS: BP 106/51; PULSE 61; RESP 16
--- NOTE | 2018-10-14 15:59 | CONS ---
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 Echo dense structure seen by tricuspid valve, right atrium and IVC-thrombus, vegetation versus tumor CAD with history of CABG History of renal carcinoma status post nephrectomy approximately 8 years ago History of hypertension Diabetes Paroxysmal atrial fibrillation, intolerant to anticoagulation Patient presents with acute kidney injury, hyperkalemia and encephalopathy Renal function continues to improve Hold all nephro toxic medications Hemoglobin better after blood transfusion Blood pressure trend improving, continue antihypertensives with holding parameters Consultation Date/Type/Reason Admit Date/Time Oct 07, 2018 at 03:37 Initial Consult Date 10/07/18 Type of Consult Cardiology Requesting Provider: JAGJIT MONTES MD Date/Time of Note DATE: 10/14/18 TIME: 15:58 24 HR Interval Summary Free Text/Dictation Patient seen and examined Exam/Review of Systems Vital Signs Vitals Vital Signs Date Temp Pulse Resp B/P (MAP) Pulse Ox O2 O2 Flow FiO2 Time Delivery Rate 10/14/18 97.4 61 16 106/51 94 Nasal 15:02 (69) Cannula 10/14/18 1.0 13:52 Intake and Output 10/13/18 10/13/18 10/14/18 1515:00 23:00 07:00 IntakeIntake Total 750 ml 240 ml OutputOutput Total 500 ml 500 ml BalanceBalance -500 ml 750 ml -260 ml Exam Exam Sleeping, no apparent distress Head: normocephalic Respiratory: other (Coarse breath sounds bilaterally, no wheezing) Cardiovascular: regular rate and rhythm (S1-S2 heard) Gastrointestinal: soft, non-tender, bowel sounds Extremities: edema Labs Result Diagram: 10/14/1862010/14/18620 Results 24hrs Laboratory Tests Test 10/13/18 17:00 10/13/18 20:40 10/14/18 06:21 10/14/18 07:55 Bedside Glucose 182 140 154 White Blood Count 10.9 H Red Blood Count 3.17 L Hemoglobin 8.3 L Hematocrit 27.5 L Mean Corpuscular 86.8 Volume Mean Corpuscular 26.2 L Hemoglobin Mean Corpuscular 30.2 L Hemoglobin Concent Red Cell 18.7 H Distribution Width Platelet Count 326 Mean Platelet Volume 10.0 Immature 0.400 Granulocytes % Neutrophils % 70.3 Lymphocytes % 20.1 Monocytes % 7.7 Eosinophils % 1.3 Basophils % 0.2 Nucleated Red Blood 0.0 Cells % Immature 0.040 H Granulocytes # Neutrophils # 7.7 H Lymphocytes # 2.2 Monocytes # 0.8 Eosinophils # 0.1 Basophils # 0.0 Nucleated Red Blood 0.0 Cells # Sodium Level 138 Potassium Level 3.7 Chloride Level 112 H Carbon Dioxide Level 22 Anion Gap 4 L Blood Urea Nitrogen 25 H Creatinine 0.95 Est Glomerular Filtrat Rate mL/min Glucose Level 126 # Calcium Level 8.8 Test 10/14/18 11:34 Bedside Glucose 148 Medications Medications Current Medications Allopurinol (Zyloprim) 100 mg BID PO Last administered on 10/14/18 09:01; Admin Dose 100 MG; Start 10/07/18 at 21:00 Aspirin (Halfprin) 81 mg DAILY PO Last administered on 10/08/18 08:14; Admin Dose 81 MG; Start 10/08/18 at 09:00; Status Hold Carvedilol (Coreg) 3.125 mg BID PO Last administered on 10/14/18 09:01; Admin Dose 3.125 MG; Start 10/07/18 at 21:00 Docusate Sodium (Colace) 100 mg TID PO Last administered on 10/14/18 13:41; Admin Dose 100 MG; Start 10/07/18 at 21:00 Pantoprazole (Protonix Tab) 40 mg DAILY@06 PO Last administered on 10/14/18 06:44; Admin Dose 40 MG; Start 10/08/18 at 06:00 Ferrous Sulfate (Ferrous Sulfate (Ec)) 325 mg DAILY PO Last administered on 10/14/18 09:01; Admin Dose 325 MG; Start 10/08/18 at 09:00 IV Flush (NS 3 ml) 3 ml PER PROTOCOL IV ; Start 10/07/18 at 12:30 Ondansetron HCl (Zofran Inj) 4 mg Q6H PRN IV NAUSEA/VOMITING; Start 10/07/18 at 12:30 Acetaminophen (Tylenol Tab) 650 mg Q6H PRN PO .PAIN 1-3 OR TEMP Last administered on 7/15/19at 00:18; Admin Dose 650 MG; Start 10/07/18 at 12:30 Acetaminophen/ Hydrocodone Bitart ([place] (5/325)) 1 tab Q6H PRN PO .PAIN 4-6 Last administered on 10/13/18at 21:07; Admin Dose 1 TAB; Start 10/07/18 at 12:30 Clonidine (Catapres) 0.1 mg BID PO Last administered on 10/14/18 09:00; Admin Dose 0.1 MG; Start 10/07/18 at 22:00 Diagnostic Test (Pha) (Accu-Chek) 1 ea 02 XX Last administered on 10/13/18 02:00; Admin Dose 1 EA; Start 10/08/18 at 02:00 Insulin Aspart (Novolog Insulin Pen) NOVOLOG *MILD* ALGORITHM WITH MEALS BEDTIME SC Last administered on 10/14/18at 11:43; Admin Dose 1 UNIT; Start 10/07/18 at 21:00 Miscellaneous Information 1 ea NOTE XX ; Start 10/07/18 at 21:00 Glucose (Glutose) 15 gm Q15M PRN PO DECREASED GLUCOSE; Start 10/07/18 at 21:00 Glucose (Glutose) 22.5 gm Q15M PRN PO DECREASED GLUCOSE; Start 10/07/18 at 21:00 Dextrose (D50w Syringe) 25 ml Q15M PRN IV DECREASED GLUCOSE; Start 10/07/18 at 21:00 Dextrose (D50w Syringe) 50 ml Q15M PRN IV DECREASED GLUCOSE; Start 10/07/18 at 21:00 Glucagon (Glucagen) 1 mg Q15M PRN IM DECREASED GLUCOSE; Start 10/07/18 at 21:00 Glucose (Glutose) 15 gm Q15M PRN BUCCAL DECREASED GLUCOSE; Start 10/07/18 at 21:00 Meropenem/Sodium Chloride 50 ml @ 100 mls/hr Q12 IVPB Last administered on 10/14/18 09:03; Admin Dose 100 MLS/HR; Start 10/09/18 at 12:00 Collagenase (Santyl) 1 applic DAILY TOP Last administered on 10/14/18 09:03; Admin Dose 1 APPLIC; Start 10/09/18 at 19:00 Sodium Hypochlorite (Dakins Diluted ()) 1 applic DAILY TP Last administered on 10/14/18 09:03; Admin Dose 1 APPLIC; Start 10/11/18 at 09:00 Caspofungin 50 mg/ Sodium Chloride 250 ml @ 250 mls/hr Q24H IVPB Last administered on 10/14/18 11:35; Admin Dose 250 MLS/HR; Start 10/12/18 at 11:00 Quetiapine Fumarate (Seroquel) 25 mg BID@0900,1200 PO Last administered on 10/14/18at 11:35; Admin Dose 25 MG; Start 10/11/18 at 12:00 Quetiapine Fumarate (Seroquel) 50 mg HS PO Last administered on 10/13/18at 20:41; Admin Dose 50 MG; Start 10/11/18 at 21:00 Amiodarone HCl (Cordarone) 100 mg DAILY PO Last administered on 10/14/18at 09:02; Admin Dose 100 MG; Start 10/13/18 at 09:00 Vancomycin HCl (Vanco Iv Per Pharmacy) VANCOMYCIN PER PHARMACY PER PROTOCOL XX ; Start 10/13/18 at 15:00 Insulin Glargine (Lantus) 12 units DAILY@1200 SC Last administered on 10/14/18at 13:44; Admin Dose 12 UNITS; Start 10/13/18 at 15:30 Vancomycin HCl 250 ml @ 125 mls/hr Q36H IVPB ; Start 10/15/18 at 05:00 Alex Chávez DO Oct 14, 2018 15:59
--- NOTE | 2018-10-14 16:58 | CONS ---
Assessment/Plan Assessment/Plan Assessment/Plan (Daily) 1. acute hyperkalemia due to BRANDON resolved 2 .acute kidney injury on CKD III due to ATN from sepsis + prerenal azotemia- Improving 3. Sepsis due to UTI and PNA 4. acute UTI 5. H/o partial nephrectomy possibly due to RCC as per family 6. H/o CAD s/p CABG , Cardiomyopathy with EF 50%, Chronic Systolic HF, 7. H/O HTN 8. h/o DM II 9. Paroxysmal atrial fibrillation 10. acute encephalpahty possibly due to uremic and metabolic encephalopathy 11. 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 H/o HTN 13. H/o DM II 14. h/O paroxysmal atrial fibrillation Plan: BUN/Cr improved to 25/0.95- other electrolytes stable on IV abx cancida, Vancomycin and Meropenem, Renally michelle all abx and monitor electrolytes amiodarone for rate control, on Clonidine 0.1 mg pO BID Renal US showed No hydronephrosis. No nephrolithiasis.- 3.1 x 2 x 2.1 centimeter hypoechoic lesion arising from the lower pole of the left kidney. Follow-up to exclude neoplasm. There is echogenic material layering within the dependent portion of the bladder. Follow up to exclude infectious, inflammatory, or neoplastic process.- Atrophic left kidney- Family refused MRI abdomen will follow up Consultation Date/Type/Reason Admit Date/Time Oct 07, 2018 at 03:37 Initial Consult Date 10/07/18 Type of Consult NEPHROLOGY Requesting Provider: JAGJIT MONTES MD Date/Time of Note DATE: 10/14/18 TIME: 16:57 Exam/Review of Systems Exam Vitals Vital Signs Date Temp Pulse Resp B/P (MAP) Pulse Ox O2 O2 Flow FiO2 Time Delivery Rate 10/14/18 97.4 61 16 106/51 94 Nasal 15:02 (69) Cannula 10/14/18 1.0 13:52 Intake and Output 10/13/18 10/13/18 10/14/18 1515:00 23:00 07:00 IntakeIntake Total 750 ml 240 ml OutputOutput Total 500 ml 500 ml BalanceBalance -500 ml 750 ml -260 ml Exam Constitutional: alert, oriented Head: normocephalic Neck: supple Respiratory: diminished breath sounds Cardiovascular: irregular rhythm Gastrointestinal: soft, non-tender Genitourinary - Male: other (Incontinent of urine) Musculoskeletal: nl extremities to inspection Extremities: normal pulses Neurological: nl mental status Skin: other (Right foot wound with dressing) Results Result Diagram: 10/14/1821 10/14/18 0621 Results 24hrs Laboratory Tests Test 10/13/18 17:00 10/13/18 20:40 10/14/18 06:21 10/14/18 07:55 Bedside Glucose 182 140 154 White Blood Count 10.9 H Red Blood Count 3.17 L Hemoglobin 8.3 L Hematocrit 27.5 L Mean Corpuscular 86.8 Volume Mean Corpuscular 26.2 L Hemoglobin Mean Corpuscular 30.2 L Hemoglobin Concent Red Cell 18.7 H Distribution Width Platelet Count 326 Mean Platelet Volume 10.0 Immature 0.400 Granulocytes % Neutrophils % 70.3 Lymphocytes % 20.1 Monocytes % 7.7 Eosinophils % 1.3 Basophils % 0.2 Nucleated Red Blood 0.0 Cells % Immature 0.040 H Granulocytes # Neutrophils # 7.7 H Lymphocytes # 2.2 Monocytes # 0.8 Eosinophils # 0.1 Basophils # 0.0 Nucleated Red Blood 0.0 Cells # Sodium Level 138 Potassium Level 3.7 Chloride Level 112 H Carbon Dioxide Level 22 Anion Gap 4 L Blood Urea Nitrogen 25 H Creatinine 0.95 Est Glomerular Filtrat Rate mL/min Glucose Level 126 # Calcium Level 8.8 Test 10/14/18 11:34 10/14/18 16:53 Bedside Glucose 148 156 Medications Medication Current Medications Allopurinol (Zyloprim) 100 mg BID PO Last administered on 10/14/18at 09:01; Admin Dose 100 MG; Start 10/07/18 at 21:00 Aspirin (Halfprin) 81 mg DAILY PO Last administered on 10/08/18at 08:14; Admin Dose 81 MG; Start 10/08/18 at 09:00; Status Hold Carvedilol (Coreg) 3.125 mg BID PO Last administered on 10/14/18at 09:01; Admin Dose 3.125 MG; Start 10/07/18 at 21:00 Docusate Sodium (Colace) 100 mg TID PO Last administered on 10/14/18at 13:41; Admin Dose 100 MG; Start 10/07/18 at 21:00 Pantoprazole (Protonix Tab) 40 mg DAILY@06 PO Last administered on 10/14/18at 06:44; Admin Dose 40 MG; Start 10/08/18 at 06:00 Ferrous Sulfate (Ferrous Sulfate (Ec)) 325 mg DAILY PO Last administered on 10/14/18at 09:01; Admin Dose 325 MG; Start 10/08/18 at 09:00 IV Flush (NS 3 ml) 3 ml PER PROTOCOL IV ; Start 10/07/18 at 12:30 Ondansetron HCl (Zofran Inj) 4 mg Q6H PRN IV NAUSEA/VOMITING; Start 10/07/18 at 12:30 Acetaminophen (Tylenol Tab) 650 mg Q6H PRN PO .PAIN 1-3 OR TEMP Last administered on 10/13/18at 00:18; Admin Dose 650 MG; Start 10/07/18 at 12:30 Acetaminophen/ Hydrocodone Bitart ([place] (5/325)) 1 tab Q6H PRN PO .PAIN 4-6 Last administered on 10/13/18at 21:07; Admin Dose 1 TAB; Start 10/07/18 at 12:30 Clonidine (Catapres) 0.1 mg BID PO Last administered on 10/14/18 09:00; Admin Dose 0.1 MG; Start 10/07/18 at 22:00 Diagnostic Test (Pha) (Accu-Chek) 1 ea 02 XX Last administered on 10/13/18at 02:00; Admin Dose 1 EA; Start 10/08/18 at 02:00 Insulin Aspart (Novolog Insulin Pen) NOVOLOG *MILD* ALGORITHM WITH MEALS BEDTIME SC Last administered on 10/14/18at 11:43; Admin Dose 1 UNIT; Start 10/07/18 at 21:00 Miscellaneous Information 1 ea NOTE XX ; Start 10/07/18 at 21:00 Glucose (Glutose) 15 gm Q15M PRN PO DECREASED GLUCOSE; Start 10/07/18 at 21:00 Glucose (Glutose) 22.5 gm Q15M PRN PO DECREASED GLUCOSE; Start 10/07/18 at 21:00 Dextrose (D50w Syringe) 25 ml Q15M PRN IV DECREASED GLUCOSE; Start 10/07/18 at 21:00 Dextrose (D50w Syringe) 50 ml Q15M PRN IV DECREASED GLUCOSE; Start 10/07/18 at 21:00 Glucagon (Glucagen) 1 mg Q15M PRN IM DECREASED GLUCOSE; Start 10/07/18 at 21:00 Glucose (Glutose) 15 gm Q15M PRN BUCCAL DECREASED GLUCOSE; Start 10/07/18 at 21:00 Meropenem/Sodium Chloride 50 ml @ 100 mls/hr Q12 IVPB Last administered on 10/14/18 09:03; Admin Dose 100 MLS/HR; Start 10/09/18 at 12:00 Collagenase (Santyl) 1 applic DAILY TOP Last administered on 10/14/18 09:03; Admin Dose 1 APPLIC; Start 10/09/18 at 19:00 Sodium Hypochlorite (Dakins Diluted ()) 1 applic DAILY TP Last administered on 10/14/18 09:03; Admin Dose 1 APPLIC; Start 10/11/18 at 09:00 Caspofungin 50 mg/ Sodium Chloride 250 ml @ 250 mls/hr Q24H IVPB Last administered on 10/14/18 11:35; Admin Dose 250 MLS/HR; Start 10/12/18 at 11:00 Quetiapine Fumarate (Seroquel) 25 mg BID@0900,1200 PO Last administered on 10/14/18 11:35; Admin Dose 25 MG; Start 10/11/18 at 12:00 Quetiapine Fumarate (Seroquel) 50 mg HS PO Last administered on 10/13/18at 20:41; Admin Dose 50 MG; Start 10/11/18 at 21:00 Amiodarone HCl (Cordarone) 100 mg DAILY PO Last administered on 10/14/18 09:02; Admin Dose 100 MG; Start 10/13/18 at 09:00 Vancomycin HCl (Vanco Iv Per Pharmacy) VANCOMYCIN PER PHARMACY PER PROTOCOL XX ; Start 10/13/18 at 15:00 Insulin Glargine (Lantus) 12 units DAILY@1200 SC Last administered on 10/14/18 13:44; Admin Dose 12 UNITS; Start 10/13/18 at 15:30 Vancomycin HCl 250 ml @ 125 mls/hr Q36H IVPB ; Start 10/15/18 at 05:00 EVA TREJO MD Oct 14, 2018 16:57
[2018-10-14 19:27] VITALS: BP 100/57; PULSE 67; RESP 18
--- NOTE | 2018-10-14 20:23 | PN ---
Date/Time of Note Date/Time of Note DATE: 10/14/18 TIME: 20:16 Assessment/Plan VTE Prophylaxis Risk score (from [facility])>0 risk: 15 SCD applied (from [facility]): Yes Pharmacological prophylaxis: NA/contraindicated Pharm contraindication: bleeding Lines/Catheters [facility]from [facility] Saline Lock Urinary Cath still in place: Yes Reason Cath still needed: urinary retention Assessment/Plan Hospital Course Patient is lethargic however easily arousable, confused, remains hemodynamically stable afebrile. Patient continues on Merrem vancomycin and caspofungin for treatment of UTI and right heel wound. Continue current care. Assessment/Plan -Chronic gastritis per EGD, continue PPI. -Anemia, history of emesis at home and loss of appetite. Dr. Winkler is following in gastroenterology consultation. Colonoscopy recommended however patient is unable to take p.o. prep, patient's son refused NG tube placement. -Sepsis secondary to urinary tract infection and possible early pneumonia, resolving. Continue antibiotics per ID. Dr. Elias is following in infection disease consultation. -UTI. Continue antibiotics per ID. -Hyperkalemia, resolved, status post treatment -Acute kidney injury, continue gentle hydration, monitor BUN and creatinine. Dr. Arreaga is following in nephrology consultation. -Hypertension -Systolic congestive heart failure. Dr. Chávez is following in cardiology consultation. -Cardiomyopathy with ejection fraction 50% -Atrial fibrillation, patient did not tolerate anticoagulation in the past due to bleeding and anemia, patient was on aspirin which is currently held due significant drop in hemoglobin. -Coronary artery disease, status post CABG -Diabetes mellitus type 2, continue Lantus and pre-meal NovoLog. -History of endocarditis, status post treatment -Sacral, right foot, and left garcia wounds present on admission. Continue current care per wound care recommendations. -Right heel wound, Dr. Garland is following and podiatry consultation -History of left femoral artery thrombectomy, left garcia open wound. Dr. Dawson is asked to see patient in vascular surgery consultation for evaluation of left garcia wound. Further recommendations based on clinical course. Plan of care discussed with Dr. Mi. Result Diagram: 10/14/18 0621 10/14/18 0621 Results 24hrs Laboratory Tests Test 10/13/18 20:40 10/14/18 06:21 10/14/18 07:55 10/14/18 11:34 Bedside Glucose 140 154 148 White Blood Count 10.9 H Red Blood Count 3.17 L Hemoglobin 8.3 L Hematocrit 27.5 L Mean Corpuscular 86.8 Volume Mean Corpuscular 26.2 L Hemoglobin Mean Corpuscular 30.2 L Hemoglobin Concent Red Cell 18.7 H Distribution Width Platelet Count 326 Mean Platelet Volume 10.0 Immature 0.400 Granulocytes % Neutrophils % 70.3 Lymphocytes % 20.1 Monocytes % 7.7 Eosinophils % 1.3 Basophils % 0.2 Nucleated Red Blood 0.0 Cells % Immature 0.040 H Granulocytes # Neutrophils # 7.7 H Lymphocytes # 2.2 Monocytes # 0.8 Eosinophils # 0.1 Basophils # 0.0 Nucleated Red Blood 0.0 Cells # Sodium Level 138 Potassium Level 3.7 Chloride Level 112 H Carbon Dioxide Level 22 Anion Gap 4 L Blood Urea Nitrogen 25 H Creatinine 0.95 Est Glomerular Filtrat Rate mL/min Glucose Level 126 # Calcium Level 8.8 Test 10/14/18 16:53 Bedside Glucose 156 Exam/Review of Systems Exam Vitals Vital Signs Date Temp Pulse Resp B/P (MAP) Pulse Ox O2 O2 Flow FiO2 Time Delivery Rate 10/14/18 97.5 67 18 100/57 95 Nasal 19:27 (71) Cannula 10/14/18 1.0 13:52 Intake and Output 10/13/18 10/13/18 10/14/18 1515:00 23:00 07:00 IntakeIntake Total 750 ml 240 ml OutputOutput Total 500 ml 500 ml BalanceBalance -500 ml 750 ml -260 ml Exam Constitutional: alert, oriented Respiratory: diminished breath sounds Cardiovascular: irregular rhythm Gastrointestinal: soft, non-tender Genitourinary - Male: other (Incontinent of urine) Musculoskeletal: nl extremities to inspection Extremities: normal pulses Neurological: nl mental status Skin: other (multiple wounds) Results Results 24hrs Laboratory Tests Test 10/13/18 20:40 10/14/18 06:21 10/14/18 07:55 10/14/18 11:34 Bedside Glucose 140 154 148 White Blood Count 10.9 H Red Blood Count 3.17 L Hemoglobin 8.3 L Hematocrit 27.5 L Mean Corpuscular 86.8 Volume Mean Corpuscular 26.2 L Hemoglobin Mean Corpuscular 30.2 L Hemoglobin Concent Red Cell 18.7 H Distribution Width Platelet Count 326 Mean Platelet Volume 10.0 Immature 0.400 Granulocytes % Neutrophils % 70.3 Lymphocytes % 20.1 Monocytes % 7.7 Eosinophils % 1.3 Basophils % 0.2 Nucleated Red Blood 0.0 Cells % Immature 0.040 H Granulocytes # Neutrophils # 7.7 H Lymphocytes # 2.2 Monocytes # 0.8 Eosinophils # 0.1 Basophils # 0.0 Nucleated Red Blood 0.0 Cells # Sodium Level 138 Potassium Level 3.7 Chloride Level 112 H Carbon Dioxide Level 22 Anion Gap 4 L Blood Urea Nitrogen 25 H Creatinine 0.95 Est Glomerular Filtrat Rate mL/min Glucose Level 126 # Calcium Level 8.8 Test 10/14/18 16:53 Bedside Glucose 156 Medications Medication Current Medications Allopurinol (Zyloprim) 100 mg BID PO Last administered on 10/14/18 09:01; Admin Dose 100 MG; Start 10/07/18 at 21:00 Aspirin (Halfprin) 81 mg DAILY PO Last administered on 10/08/18 08:14; Admin Dose 81 MG; Start 10/08/18 at 09:00; Status Hold Carvedilol (Coreg) 3.125 mg BID PO Last administered on 10/14/18 09:01; Admin Dose 3.125 MG; Start 10/07/18 at 21:00 Docusate Sodium (Colace) 100 mg TID PO Last administered on 10/14/18 13:41; Admin Dose 100 MG; Start 10/07/18 at 21:00 Pantoprazole (Protonix Tab) 40 mg DAILY@06 PO Last administered on 10/14/18 06:44; Admin Dose 40 MG; Start 10/08/18 at 06:00 Ferrous Sulfate (Ferrous Sulfate (Ec)) 325 mg DAILY PO Last administered on 09:01; Admin Dose 325 MG; Start 10/08/18 at 09:00 IV Flush (NS 3 ml) 3 ml PER PROTOCOL IV ; Start 10/07/18 at 12:30 Ondansetron HCl (Zofran Inj) 4 mg Q6H PRN IV NAUSEA/VOMITING; Start 10/07/18 at 12:30 Acetaminophen (Tylenol Tab) 650 mg Q6H PRN PO .PAIN 1-3 OR TEMP Last administered on 7/15/19at 00:18; Admin Dose 650 MG; Start 10/07/18 at 12:30 Acetaminophen/ Hydrocodone Bitart ([place] (5/325)) 1 tab Q6H PRN PO .PAIN 4-6 Last administered on 10/13/18at 21:07; Admin Dose 1 TAB; Start 10/07/18 at 12:30 Clonidine (Catapres) 0.1 mg BID PO Last administered on 10/14/18 09:00; Admin Dose 0.1 MG; Start 10/07/18 at 22:00 Diagnostic Test (Pha) (Accu-Chek) 1 ea 02 XX Last administered on 10/13/18at 02:00; Admin Dose 1 EA; Start 10/08/18 at 02:00 Insulin Aspart (Novolog Insulin Pen) NOVOLOG *MILD* ALGORITHM WITH MEALS BEDTIME SC Last administered on 10/14/18at 17:01; Admin Dose 1 UNIT; Start 10/07/18 at 21:00 Miscellaneous Information 1 ea NOTE XX ; Start 10/07/18 at 21:00 Glucose (Glutose) 15 gm Q15M PRN PO DECREASED GLUCOSE; Start 10/07/18 at 21:00 Glucose (Glutose) 22.5 gm Q15M PRN PO DECREASED GLUCOSE; Start 10/07/18 at 21:00 Dextrose (D50w Syringe) 25 ml Q15M PRN IV DECREASED GLUCOSE; Start 10/07/18 at 21:00 Dextrose (D50w Syringe) 50 ml Q15M PRN IV DECREASED GLUCOSE; Start 10/07/18 at 21:00 Glucagon (Glucagen) 1 mg Q15M PRN IM DECREASED GLUCOSE; Start 10/07/18 at 21:00 Glucose (Glutose) 15 gm Q15M PRN BUCCAL DECREASED GLUCOSE; Start 10/07/18 at 21:00 Meropenem/Sodium Chloride 50 ml @ 100 mls/hr Q12 IVPB Last administered on 10/14/18 09:03; Admin Dose 100 MLS/HR; Start 10/09/18 at 12:00 Collagenase (Santyl) 1 applic DAILY TOP Last administered on 10/14/18 09:03; Admin Dose 1 APPLIC; Start 10/09/18 at 19:00 Sodium Hypochlorite (Dakins Diluted ()) 1 applic DAILY TP Last administered on 10/14/18 09:03; Admin Dose 1 APPLIC; Start 10/11/18 at 09:00 Caspofungin 50 mg/ Sodium Chloride 250 ml @ 250 mls/hr Q24H IVPB Last administered on 10/14/18 11:35; Admin Dose 250 MLS/HR; Start 10/12/18 at 11:00 Quetiapine Fumarate (Seroquel) 25 mg BID@0900,1200 PO Last administered on 10/14/18 11:35; Admin Dose 25 MG; Start 10/11/18 at 12:00 Quetiapine Fumarate (Seroquel) 50 mg HS PO Last administered on 10/13/18at 20:41; Admin Dose 50 MG; Start 10/11/18 at 21:00 Amiodarone HCl (Cordarone) 100 mg DAILY PO Last administered on 10/14/18at 09:02; Admin Dose 100 MG; Start 10/13/18 at 09:00 Vancomycin HCl (Vanco Iv Per Pharmacy) VANCOMYCIN PER PHARMACY PER PROTOCOL XX ; Start 10/13/18 at 15:00 Insulin Glargine (Lantus) 12 units DAILY@1200 SC Last administered on 10/14/18at 13:44; Admin Dose 12 UNITS; Start 10/13/18 at 15:30 Vancomycin HCl 250 ml @ 125 mls/hr Q36H IVPB ; Start 10/15/18 at 05:00 OCTAVIANO SHAFFER Oct 14, 2018 20:23
[2018-10-14 23:50] VITALS: BP 97/45; PULSE 57; RESP 16
[2018-10-15] VITALS (12 sets, daily range): BP systolic 100–159; BP diastolic 51–69; PULSE 55–63; RESP 18–20
[2018-10-15] MEDS: ACCU-CHEK XX SCH (01:33)
[2018-10-15] MEDS: VANCOMYCIN 1 GM 250 ML IVPB SCH (04:23)
[2018-10-15] MEDS: Insulin NOVOLOG SS MILD Algorithm (NPO/TPN/ENTERAL FEEDS) SC SCH ×5 (05:00→20:36)
[2018-10-15] MEDS: PANTOPRAZOLE (EC) 40 MG TAB PO SCH (05:06)
--- NOTE | 2018-10-15 07:41 | HPN ---
Date/Time of Note Date/Time of Note DATE: 10/15/18 TIME: 07:41 Interval H&P Admission Note Pt. seen H&P reviewed: No system changes NANCY DIANE DPM Oct 15, 2018 07:41
[2018-10-15] MEDS: FERROUS SULFATE (EC) 325 MG TAB PO SCH (08:59)
[2018-10-15] MEDS: DOCUSATE SODIUM 100 MG CAP PO SCH ×3 (08:59→20:32)
[2018-10-15] MEDS ORDERED: INSULIN ASPART [NOVOLOG] 3 ML PEN SC SCH (09:00)
[2018-10-15] MEDS: ALLOPURINOL 100 MG TAB PO SCH ×2 (09:00→20:32)
[2018-10-15] MEDS: COLLAGENASE 5 GM (UD JAR) TOP SCH (09:00)
[2018-10-15] MEDS: DAKINS 0.0125%(1/40) 473 ML SOLUTION TP SCH (09:00)
[2018-10-15] MEDS: QUETIAPINE 25 MG TAB PO SCH ×3 (09:00→20:32)
[2018-10-15] MEDS ORDERED: POLYMYXIN/BACITRACIN 1L IRRIG ONE (09:18)
[2018-10-15] MEDS ORDERED: BACITRACIN 50000 UNITS INJ ONE (09:18)
[2018-10-15] MEDS ORDERED: VANCOMYCIN 1 GM INJ ONE (09:21)
[2018-10-15] MEDS ORDERED: POLYMYXIN B 500000 UNIT INJ ONE (09:21)
[2018-10-15] MEDS ORDERED: LIDOCAINE 1% (MPF) 30 ML INJ ONE (09:21)
[2018-10-15] MEDS ORDERED: BUPIVACAINE 0.5% (SDV) 30 ML INJ ONE (09:21)
[2018-10-15] MEDS ORDERED: TOBRAMYCIN 1.2 GM POWDER ONE (09:21)
--- NOTE | 2018-10-15 09:29 | PREAC ---
Date/Time of Note Date/Time of Note DATE: 10/15/18 TIME: 09:28 Anesthesia Eval and Record Evaluation Time Pre-Procedure Interview DATE: 10/15/18 TIME: 09:28 Age 82 Sex female NPO: 8 hrs Preoperative diagnosis lower extremity ulcer Planned procedure lower extrmity debridment Past Medical History Past Medical History: Includes Cardio: HTN, Dyslipidemia, DC, CAD, CABG, Arrythmia, CHF Endo: Diabetes Neuro: Peripheral neuropathy Musculoskeletal: Osteoarthritis GI: GERD Heme: Anemia Surgery & Anesthesia Issues No known issue Meds Anticoagulation: No Beta Rosalba within 24 hr: No Reason Beta Rosalba not given: Pt. not on B-Rosalba Active Scripts [Vancomycin Iv Per Pharmacy] 1 EA EACH No Conflict Check, 0 EA XX .PER PROTOCOL Prov:NUBIA TEJEDA MD 08/04/18 Reported Medications Clonidine Hcl* (Clonidine Hcl*) 0.1 Mg Tab, 0.1 MG PO Q8, TAB 06/25/18 Furosemide* (Furosemide*) 20 Mg Tablet, 20 MG PO DAILY 06/25/18 Carvedilol* (Carvedilol*) 3.125 Mg Tablet, 3.125 MG PO BID for 30 Days, #60 06/25/18 Amiodarone Hcl* (Amiodarone Hcl*) 200 Mg Tablet, 200 MG PO BID, #60 TAB 06/17/18 Dulaglutide (Trulicity) 0.75 Mg/0.5 Ml Pen.injctr, 1.75 MG SQ WEEKLY 06/11/18 Insulin Glargine,Hum.rec.anlog (Basaglar Kwikpen U-100) 100 Unit/1 Ml Insuln.pen, 20 UNIT SC DAILY, EA 06/11/18 Ferrous Sulfate (Ferrous Sulfate) 325 Mg Tablet.dr, 325 MG PO DAILY 06/11/18 Aspirin* (Aspirin* EC) 81 Mg Tablet.dr, 81 MG PO DAILY, TAB 06/11/18 Empagliflozin (Jardiance) 10 Mg Tablet, 10 MG PO DAILY, TAB 06/11/18 Esomeprazole Mag Trihydrate (Nexium) 20 Mg Capsule.dr, 20 MG PO AC BREAKFAST, #30 CAP 06/11/18 Docusate Sodium* (Colace*) 100 Mg Capsule, 100 MG PO TID, #60 CAP 06/11/18 Allopurinol* (Allopurinol*) 100 Mg Tablet, 100 MG PO BID, TAB 06/11/18 Current Medications Allopurinol (Zyloprim) 100 mg BID PO Last administered on 10/14/18 21:17; Admin Dose 100 MG; Start 10/07/18 at 21:00 Aspirin (Halfprin) 81 mg DAILY PO Last administered on 10/08/18 08:14; Admin Dose 81 MG; Start 10/08/18 at 09:00; Status Hold Carvedilol (Coreg) 3.125 mg BID PO Last administered on 10/14/18 09:01; Admin Dose 3.125 MG; Start 10/07/18 at 21:00 Docusate Sodium (Colace) 100 mg TID PO Last administered on 10/14/18 21:16; Admin Dose 100 MG; Start 10/07/18 at 21:00 Pantoprazole (Protonix Tab) 40 mg DAILY@06 PO Last administered on 10/14/18 06:44; Admin Dose 40 MG; Start 10/08/18 at 06:00 Ferrous Sulfate (Ferrous Sulfate (Ec)) 325 mg DAILY PO Last administered on 10/14/18 09:01; Admin Dose 325 MG; Start 10/08/18 at 09:00 IV Flush (NS 3 ml) 3 ml PER PROTOCOL IV ; Start 10/07/18 at 12:30 Ondansetron HCl (Zofran Inj) 4 mg Q6H PRN IV NAUSEA/VOMITING; Start 10/07/18 at 12:30 Acetaminophen (Tylenol Tab) 650 mg Q6H PRN PO .PAIN 1-3 OR TEMP Last administered on 10/13/18 00:18; Admin Dose 650 MG; Start 10/07/18 at 12:30 Acetaminophen/ Hydrocodone Bitart ([place] (5/325)) 1 tab Q6H PRN PO .PAIN 4-6 Last administered on 10/13/18 21:07; Admin Dose 1 TAB; Start 10/07/18 at 12:30 Clonidine (Catapres) 0.1 mg BID PO Last administered on 10/14/18 09:00; Admin Dose 0.1 MG; Start 10/07/18 at 22:00 Diagnostic Test (Pha) (Accu-Chek) 1 ea 02 XX Last administered on 10/13/18 0 2:00; Admin Dose 1 EA; Start 10/08/18 at 02:00 Miscellaneous Information 1 ea NOTE XX ; Start 10/07/18 at 21:00 Glucose (Glutose) 15 gm Q15M PRN PO DECREASED GLUCOSE; Start 10/07/18 at 21:00 Glucose (Glutose) 22.5 gm Q15M PRN PO DECREASED GLUCOSE; Start 10/07/18 at 21:00 Dextrose (D50w Syringe) 25 ml Q15M PRN IV DECREASED GLUCOSE; Start 10/07/18 at 21:00 Dextrose (D50w Syringe) 50 ml Q15M PRN IV DECREASED GLUCOSE; Start 10/07/18 at 21:00 Glucagon (Glucagen) 1 mg Q15M PRN IM DECREASED GLUCOSE; Start 10/07/18 at 21:00 Glucose (Glutose) 15 gm Q15M PRN BUCCAL DECREASED GLUCOSE; Start 10/07/18 at 21 :00 Meropenem/Sodium Chloride 50 ml @ 100 mls/hr Q12 IVPB Last administered on 10/14/18at 21:16; Admin Dose 100 MLS/HR; Start 10/09/18 at 12:00 Collagenase (Santyl) 1 applic DAILY TOP Last administered on 10/15/18at 09:00; Admin Dose 1 APPLIC; Start 10/09/18 at 19:00 Sodium Hypochlorite (Dakins Diluted ()) 1 applic DAILY TP Last administered on 10/15/18at 09:00; Admin Dose 1 APPLIC; Start 10/11/18 at 09:00 Caspofungin 50 mg/ Sodium Chloride 250 ml @ 250 mls/hr Q24H IVPB Last administered on 10/14/18at 11:35; Admin Dose 250 MLS/HR; Start 10/12/18 at 11:00 Quetiapine Fumarate (Seroquel) 25 mg BID@0900,1200 PO Last administered on 10/14/18 11:35; Admin Dose 25 MG; Start 10/11/18 at 12:00 Quetiapine Fumarate (Seroquel) 50 mg HS PO Last administered on 10/14/18 21:17; Admin Dose 50 MG; Start 10/11/18 at 21:00 Amiodarone HCl (Cordarone) 100 mg DAILY PO Last administered on 10/14/18at 09:02; Admin Dose 100 MG; Start 10/13/18 at 09:00 Vancomycin HCl (Vanco Iv Per Pharmacy) VANCOMYCIN PER PHARMACY PER PROTOCOL XX ; Start 10/13/18 at 15:00 Insulin Glargine (Lantus) 12 units DAILY@1200 SC Last administered on 10/14/18at 13:44; Admin Dose 12 UNITS; Start 10/13/18 at 15:30 Vancomycin HCl 250 ml @ 125 mls/hr Q36H IVPB Last administered on 10/15/18at 04:23; Admin Dose 125 MLS/HR; Start 10/15/18 at 05:00 Insulin Aspart (Novolog Insulin Pen) (Adult SC Insulin - Mild Algorithm)... Q4 SC ; Start 10/15/18 at 05:00 Meds reviewed: Yes Allergies Coded Allergies: No Known Allergies (Verified Allergy, Unknown, 08/01/18) Allergies Reviewed: Yes Labs/Studies Labs Reviewed: Reviewed by anesthesiologist Result Diagram: 10/14/1862010/14/18620 test: N/A Studies: ECG, CXR, 2D Echo Pre-procedure Exam Last vitals Vital Signs Date Temp Pulse Resp B/P (MAP) Pulse Ox O2 O2 Flow FiO2 Time Delivery Rate 10/15/18 98.0 57 20 123/68 96 07:33 (86) 10/15/18 1.0 04:59 10/15/18 Nasal 04:07 Cannula Airway: Adequate mouth opening, Adequate thyromental dist Mallampati: Mallampati II Teeth: Abnormal Lung: Abnormal Heart: Abnormal ASA Physical Status ASA physical status: 4 Emergency: None Planned Anesthetic General/MAC: Mask, MAC Pre-operative Attestations Prior to commencing anesthesia and surgery, the patient was re-evaluated, there was verification of: *The patient's identity *The results of appropriate recent lab work and preoperative vital signs *The above evaluation not changing prior to induction *Anesthetic plan, risk benefits, alternative and complications discussed with patient/family; questions answered; patient/family understands, accepts and wishes to proceed. ANITA ALVAREZ Oct 15, 2018 09:29
[2018-10-15] MEDS ORDERED: ONDANSETRON 4 MG INJ IV PRN (10:00)
[2018-10-15] MEDS ORDERED: FENTAnyl 50 MCG/ML VIAL IV PRN (10:00)
[2018-10-15] MEDS ORDERED: LIDOCAINE 100 MG SYRINGE ONE (10:04)
[2018-10-15] MEDS ORDERED: PROPOFOL 20 ML ONE (10:04)
--- NOTE | 2018-10-15 11:02 | CONS ---
Assessment/Plan Assessment/Plan Hospital Course (Demo Recall) All noted, no acute events Antimicrobials: Vancomycin, Cancidas, Merrem Microbiology: Blood cultures negative, urine culture + MDR Kleb, repeat cx + yeast Chest x-ray on admission revealed no evidence of CHF or pneumonia. Renal ultrasound revealed no hydronephrosis and no nephrolithiasis. 3.1 x 2 x 2.1 cm hypoechoic lesion left pole of the kidney questionable neoplasm Physical examination: Well-developed chronically ill-appearing wasted elderly woman who is in no distress. Head atraumatic normocephalic neck is supple chest rise symmetrical breath sounds diminished bases. Heart: S1-S2. Abdomen soft bowel sounds present. Extremities with dependent bilateral lower extremities edema Assessment: 1. S/p sepsis, present on admission 2. Gram-negative melvi/yeast UTI 3. Acute on chronic anemia 4. Coronary artery disease with a history of CABG 5. Echo dense structure seen by tricuspid valve, right atrium and IVC-thrombus, vegetation versus tumor=== completed 6 weeks IV antibiotics> 6. History of renal cell carcinoma status post nephrectomy 7. Diabetes 8. R heel decub possible osteomyelitis per CT Plan: Remains unchanged, continue abx, plan for L heel i/d, will f/u cx's and podiatry rec-s, long-term IV antibiotics if right heel cw osteomyelitis Consultation Date/Type/Reason Admit Date/Time Oct 07, 2018 at 03:37 Initial Consult Date 10/07/18 Type of Consult id Requesting Provider: JAGJIT MONTES MD Date/Time of Note DATE: 10/15/18 TIME: 11:00 Exam/Review of Systems Exam Vitals Vital Signs Date Temp Pulse Resp B/P (MAP) Pulse Ox O2 O2 Flow FiO2 Time Delivery Rate 10/15/18 98.0 57 20 123/68 96 07:33 (86) 10/15/18 1.0 04:59 10/15/18 Nasal 04:07 Cannula Intake and Output 10/14/18 10/14/18 10/15/18 1515:00 23:00 07:00 IntakeIntake Total 50 ml 300 ml OutputOutput Total 550 ml BalanceBalance 50 ml -250 ml Results Result Diagram: 10/14/18 0621 10/14/18 0621 Results 24hrs Laboratory Tests Test 10/14/18 11:34 10/14/18 16:53 10/14/18 21:07 10/15/18 04:28 Bedside Glucose 148 156 125 81 Test 10/15/18 07:53 Bedside Glucose 89 Medications Medication Current Medications Allopurinol (Zyloprim) 100 mg BID PO Last administered on 10/14/18 21:17; Admin Dose 100 MG; Start 10/07/18 at 21:00 Aspirin (Halfprin) 81 mg DAILY PO Last administered on 10/08/18 08:14; Admin Dose 81 MG; Start 10/08/18 at 09:00; Status Hold Carvedilol (Coreg) 3.125 mg BID PO Last administered on 10/14/18 09:01; Admin Dose 3.125 MG; Start 10/07/18 at 21:00 Docusate Sodium (Colace) 100 mg TID PO Last administered on 10/14/18 21:16; Admin Dose 100 MG; Start 10/07/18 at 21:00 Pantoprazole (Protonix Tab) 40 mg DAILY@06 PO Last administered on 10/14/18 06:44; Admin Dose 40 MG; Start 10/08/18 at 06:00 Ferrous Sulfate (Ferrous Sulfate (Ec)) 325 mg DAILY PO Last administered on 10/14/18 09:01; Admin Dose 325 MG; Start 10/08/18 at 09:00 IV Flush (NS 3 ml) 3 ml PER PROTOCOL IV ; Start 10/07/18 at 12:30 Ondansetron HCl (Zofran Inj) 4 mg Q6H PRN IV NAUSEA/VOMITING; Start 10/07/18 at 12:30 Acetaminophen (Tylenol Tab) 650 mg Q6H PRN PO .PAIN 1-3 OR TEMP Last administered on 10/13/18 00:18; Admin Dose 650 MG; Start 10/07/18 at 12:30 Acetaminophen/ Hydrocodone Bitart ([place] (5/325)) 1 tab Q6H PRN PO .PAIN 4-6 Last administered on 10/13/18 21:07; Admin Dose 1 TAB; Start 10/07/18 at 12:30 Clonidine (Catapres) 0.1 mg BID PO Last administered on 10/14/18 09:00; Admin Dose 0.1 MG; Start 10/07/18 at 22:00 Diagnostic Test (Pha) (Accu-Chek) 1 ea 02 XX Last administered on 10/13/18at 02:00; Admin Dose 1 EA; Start 10/08/18 at 02:00 Miscellaneous Information 1 ea NOTE XX ; Start 10/07/18 at 21:00 Glucose (Glutose) 15 gm Q15M PRN PO DECREASED GLUCOSE; Start 10/07/18 at 21:00 Glucose (Glutose) 22.5 gm Q15M PRN PO DECREASED GLUCOSE; Start 10/07/18 at 21:00 Dextrose (D50w Syringe) 25 ml Q15M PRN IV DECREASED GLUCOSE; Start 10/07/18 at 21:00 Dextrose (D50w Syringe) 50 ml Q15M PRN IV DECREASED GLUCOSE; Start 10/07/18 at 21:00 Glucagon (Glucagen) 1 mg Q15M PRN IM DECREASED GLUCOSE; Start 10/07/18 at 21:00 Glucose (Glutose) 15 gm Q15M PRN BUCCAL DECREASED GLUCOSE; Start 10/07/18 at 21:00 Meropenem/Sodium Chloride 50 ml @ 100 mls/hr Q12 IVPB Last administered on 10/14/18at 21:16; Admin Dose 100 MLS/HR; Start 10/09/18 at 12:00 Collagenase (Santyl) 1 applic DAILY TOP Last administered on 10/15/18at 09:00; Admin Dose 1 APPLIC; Start 10/09/18 at 19:00 Sodium Hypochlorite (Dakins Diluted (/40)) 1 applic DAILY TP Last administered on 10/15/18at 09:00; Admin Dose 1 APPLIC; Start 10/11/18 at 09:00 Caspofungin 50 mg/ Sodium Chloride 250 ml @ 250 mls/hr Q24H IVPB Last administered on 10/14/18at 11:35; Admin Dose 250 MLS/HR; Start 10/12/18 at 11:00 Quetiapine Fumarate (Seroquel) 25 mg BID@0900,1200 PO Last administered on 10/14/18at 11:35; Admin Dose 25 MG; Start 10/11/18 at 12:00 Quetiapine Fumarate (Seroquel) 50 mg HS PO Last administered on 10/14/18at 21:17; Admin Dose 50 MG; Start 10/11/18 at 21:00 Amiodarone HCl (Cordarone) 100 mg DAILY PO Last administered on 10/14/18at 09:02; Admin Dose 100 MG; Start 10/13/18 at 09:00 Vancomycin HCl (Vanco Iv Per Pharmacy) VANCOMYCIN PER PHARMACY PER PROTOCOL XX ; Start 10/13/18 at 15:00 Insulin Glargine (Lantus) 12 units DAILY@1200 SC Last administered on 10/14/18at 13:44; Admin Dose 12 UNITS; Start 10/13/18 at 15:30 Vancomycin HCl 250 ml @ 125 mls/hr Q36H IVPB Last administered on 10/15/18at 04:23; Admin Dose 125 MLS/HR; Start 10/15/18 at 05:00 Insulin Aspart (Novolog Insulin Pen) (Adult SC Insulin - Mild Algorithm)... Q4 SC ; Start 10/15/18 at 05:00 Fentanyl (Sublimaze) 25 mcg PACU ORDER PRN IV MILD PAIN 1-3; Start 10/15/18 at 10:00; Stop 10/15/18 at 14:00 Ondansetron HCl (Zofran Inj) 4 mg PACU ORDER PRN IV NAUSEA/VOMITING; Start 10/15/18 at 10:00; Stop 10/15/18 at 14:00 BARBARA ORDAZ NP Oct 15, 2018 11:02
--- NOTE | 2018-10-15 11:02 | SIPON ---
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
--- NOTE | 2018-10-15 11:12 | OPR ---
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 PAD Postoperative Diagnosis Right heel decubitus ulceration stage 4 DM2 with peripheral neuropathy Right heel early osteomyelitis PAD Right 5th digit nevus VS melanoma Operation/Procedure Performed right foot excisional debridement Right foot Bone biopsy Right foot soft tissue biopsy Application of allograft Application of wound VAC Surgeon see signature line [employer]space Control Officer none Anesthesia Type: MAC Estimated Blood Loss: 10 - 50 ml's Transfusion none Specimen Right foot post lavage wound culture Right foot bone pathology Right foot soft tissue lesion pathology Grafts/Implants hyalomatrix allograft Complications none Indications 82 y/o F patient with right heel chronic decubitus ulceration with gangrenous changes to the wound. Per family patient is limited with her mobility and had been difficult to offload the patient. Discussed surgical intervention for the ulceration site and patient and patient's family were amenable to the procedure. All of their questions and concerns were addressed. No promises or guarantees were given. Procedure Description Patient was brought into the OR and placed in the supine position. The right lower extremity was scrubbed, prepped and draped in the usual aseptic manner. A formal time out was conducted. Attention was directed to the right foot where a local block was provided to the surgical site. Excisional debridement of right heel ulceration of skin/subQ/muscle/bone was performed using a pickup/scissor and curette. Gangrenous tissue, necrotic fat/bone and non viable tissue was removed from the right heel ulceration site. Bone specimens were obtained and sent for pathology studies. Wound measurement was 2.6 x 2.3 x 2.2cm. Total area of debridement performed was 5.98cm2. There was adequate bleeding noted at the surgical debridement site. Copious antibiotic infused pulse lavage irrigation was used at the debridement site. Post lavage wound cultures were obtained. Using a mixture of tobramycin and vancomycin powder the antibiotics were applied to the debridement site and using hylomatrix allograft was also applied to the wound site. A wound VAC set to 125mmHg low continuous therapy was also applied to the heel ulceration site. Upon inspection of the foot there was a concerning skin lesion noted to the medial aspect of the right 5th digit which measured 0.7 x 0.4cm and had irregular borders. A punch biopsy was performed at the right 5th digit lesion site and was sent for pathology specimen study. A 4-0 prolene was used to secure the skin edges of the biopsy site. Xeroform applied to the right 5th digit biopsy site and dry sterile dressings were applied to the right foot. Patient was transferred to the PACU with vital signs stable and neurovascular status intact. NANCY DIANE DPM Oct 15, 2018 11:12
--- NOTE | 2018-10-15 12:19 | PN ---
Date/Time of Note Date/Time of Note DATE: 10/15/18 TIME: 12:14 Assessment/Plan VTE Prophylaxis Risk score (from [facility])>0 risk: 7 SCD applied (from Ns): Yes Pharmacological prophylaxis: NA/contraindicated Pharm contraindication: surgical contra Lines/Catheters IV Catheter Type (from [facility]): Peripheral IV Central line still needed: Yes Urinary Cath still in place: Yes Reason Cath still needed: urinary retention Assessment/Plan Hospital Course Patient is taken to OR for R heel wound debridement, no events reported prior to procedure Assessment/Plan -Chronic gastritis per EGD, continue PPI. -Anemia, history of emesis at home and loss of appetite. Dr. Winkler is following in gastroenterology consultation. Colonoscopy recommended however patient is unable to take p.o. prep, patient's son refused NG tube placement. -Sepsis secondary to urinary tract infection and possible early pneumonia, resolving. Continue antibiotics per ID. Dr. Elias is following in infection disease consultation. -UTI. Continue antibiotics per ID. -Hyperkalemia, resolved, status post treatment -Acute kidney injury, continue gentle hydration, monitor BUN and creatinine. Dr. Arreaga is following in nephrology consultation. -Hypertension -Systolic congestive heart failure. Dr. Chávez is following in cardiology consultation. -Cardiomyopathy with ejection fraction 50% -Atrial fibrillation, patient did not tolerate anticoagulation in the past due to bleeding and anemia, patient was on aspirin which is currently held due significant drop in hemoglobin. -Coronary artery disease, status post CABG -Diabetes mellitus type 2, continue Lantus and pre-meal NovoLog. -History of endocarditis, status post treatment -Sacral, right foot, and left garcia wounds present on admission. Continue current care per wound care recommendations. -Right heel wound, Dr. Garland is following and podiatry consultation -History of left femoral artery thrombectomy, left garcia open wound. Dr. Dawson is asked to see patient in vascular surgery consultation for evaluation of left garcia wound. Further recommendations based on clinical course. Plan of care discussed with Dr. Mi. Result Diagram: 10/14/1862010/14/18 0621 Results 24hrs Laboratory Tests Test 10/14/18 16:53 10/14/18 21:07 10/15/18 04:28 10/15/18 07:53 Bedside Glucose 156 125 81 89 Exam/Review of Systems Exam Vitals Vital Signs Date Temp Pulse Resp B/P (MAP) Pulse Ox O2 O2 Flow FiO2 Time Delivery Rate 10/15/18 Nasal 2.0 11:40 Cannula 10/15/18 145/59 100 11:30 (87) 10/15/18 58 11:15 10/15/18 98.4 11:12 10/15/18 20 07:33 Intake and Output 10/14/18 10/14/18 10/15/18 1414:59 22:59 06:59 IntakeIntake Total 50 ml 300 ml OutputOutput Total 550 ml BalanceBalance 50 ml -250 ml Results Results 24hrs Laboratory Tests Test 10/14/18 16:53 10/14/18 21:07 10/15/18 04:28 10/15/18 07:53 Bedside Glucose 156 125 81 89 Medications Medication Current Medications Allopurinol (Zyloprim) 100 mg BID PO Last administered on 10/14/18at 21:17; Admin Dose 100 MG; Start 10/07/18 at 21:00 Aspirin (Halfprin) 81 mg DAILY PO Last administered on 10/08/18at 08:14; Admin Dose 81 MG; Start 10/08/18 at 09:00; Status Hold Carvedilol (Coreg) 3.125 mg BID PO Last administered on 10/14/18at 09:01; Admin Dose 3.125 MG; Start 10/07/18 at 21:00 Docusate Sodium (Colace) 100 mg TID PO Last administered on 10/14/18at 21:16; Admin Dose 100 MG; Start 10/07/18 at 21:00 Pantoprazole (Protonix Tab) 40 mg DAILY@06 PO Last administered on 10/14/18at 0 6:44; Admin Dose 40 MG; Start 10/08/18 at 06:00 Ferrous Sulfate (Ferrous Sulfate (Ec)) 325 mg DAILY PO Last administered on 10/14/18at 09:01; Admin Dose 325 MG; Start 10/08/18 at 09:00 IV Flush (NS 3 ml) 3 ml PER PROTOCOL IV ; Start 10/07/18 at 12:30 Ondansetron HCl (Zofran Inj) 4 mg Q6H PRN IV NAUSEA/VOMITING; Start 10/07/18 at 12:30 Acetaminophen (Tylenol Tab) 650 mg Q6H PRN PO .PAIN 1-3 OR TEMP Last administered on 10/13/18at 00:18; Admin Dose 650 MG; Start 10/07/18 at 12:30 Acetaminophen/ Hydrocodone Bitart ([place] (5/325)) 1 tab Q6H PRN PO .PAIN 4-6 Last administered on 10/13/18at 21:07; Admin Dose 1 TAB; Start 10/07/18 at 12:30 Clonidine (Catapres) 0.1 mg BID PO Last administered on 10/14/18at 09:00; Admin Dose 0.1 MG; Start 10/07/18 at 22:00 Diagnostic Test (Pha) (Accu-Chek) 1 ea 02 XX Last administered on 10/13/18at 02:00; Admin Dose 1 EA; Start 10/08/18 at 02:00 Miscellaneous Information 1 ea NOTE XX ; Start 10/07/18 at 21:00 Glucose (Glutose) 15 gm Q15M PRN PO DECREASED GLUCOSE; Start 10/07/18 at 21:00 Glucose (Glutose) 22.5 gm Q15M PRN PO DECREASED GLUCOSE; Start 10/07/18 at 21:00 Dextrose (D50w Syringe) 25 ml Q15M PRN IV DECREASED GLUCOSE; Start 10/07/18 at 21:00 Dextrose (D50w Syringe) 50 ml Q15M PRN IV DECREASED GLUCOSE; Start 10/07/18 at 21:00 Glucagon (Glucagen) 1 mg Q15M PRN IM DECREASED GLUCOSE; Start 10/07/18 at 21:00 Glucose (Glutose) 15 gm Q15M PRN BUCCAL DECREASED GLUCOSE; Start 10/07/18 at 21:00 Meropenem/Sodium Chloride 50 ml @ 100 mls/hr Q12 IVPB Last administered on 10/14/18at 21:16; Admin Dose 100 MLS/HR; Start 10/09/18 at 12:00 Collagenase (Santyl) 1 applic DAILY TOP Last administered on 10/15/18at 09:00; Admin Dose 1 APPLIC; Start 10/09/18 at 19:00 Sodium Hypochlorite (Dakins Diluted (40)) 1 applic DAILY TP Last administered on 10/15/18at 09:00; Admin Dose 1 APPLIC; Start 10/11/18 at 09:00 Caspofungin 50 mg/ Sodium Chloride 250 ml @ 250 mls/hr Q24H IVPB Last administered on 10/14/18at 11:35; Admin Dose 250 MLS/HR; Start 10/12/18 at 11:00 Quetiapine Fumarate (Seroquel) 25 mg BID@0900,1200 PO Last administered on 10/14/18at 11:35; Admin Dose 25 MG; Start 10/11/18 at 12:00 Quetiapine Fumarate (Seroquel) 50 mg HS PO Last administered on 10/14/18at 21:17; Admin Dose 50 MG; Start 10/11/18 at 21:00 Amiodarone HCl (Cordarone) 100 mg DAILY PO Last administered on 10/14/18 09:02; Admin Dose 100 MG; Start 10/13/18 at 09:00 Vancomycin HCl (Vanco Iv Per Pharmacy) VANCOMYCIN PER PHARMACY PER PROTOCOL XX ; Start 10/13/18 at 15:00 Insulin Glargine (Lantus) 12 units DAILY@1200 SC Last administered on 10/14/18at 13:44; Admin Dose 12 UNITS; Start 10/13/18 at 15:30 Vancomycin HCl 250 ml @ 125 mls/hr Q36H IVPB Last administered on 10/15/18at 0 4:23; Admin Dose 125 MLS/HR; Start 10/15/18 at 05:00 Insulin Aspart (Novolog Insulin Pen) (Adult SC Insulin - Mild Algorithm)... Q4 SC ; Start 10/15/18 at 05:00 Fentanyl (Sublimaze) 25 mcg PACU ORDER PRN IV MILD PAIN 1-3; Start 10/15/18 at 10:00; Stop 10/15/18 at 14:00 Ondansetron HCl (Zofran Inj) 4 mg PACU ORDER PRN IV NAUSEA/VOMITING; Start 10/15/18 at 10:00; Stop 10/15/18 at 14:00 OCTAVIANO SHAFFER Oct 15, 2018 12:19
[2018-10-15] MEDS: MEROPENEM 500MG/50 ML (PMX) 50 ML IVPB SCH ×2 (12:44→20:31)
[2018-10-15] MEDS: AMIODARONE 200 MG TAB PO SCH (13:01)
[2018-10-15] MEDS: INSULIN GLARGINE [LANTus] (100 UNITS/ML) SYG SC SCH (13:11)
--- NOTE | 2018-10-15 13:17 | CONS ---
Assessment/Plan Assessment/Plan Assessment/Plan (Daily) 1. acute hyperkalemia due to BRANDON resolved 2 .acute kidney injury on CKD III due to ATN from sepsis + prerenal azotemia- Improving 3. Sepsis due to UTI and PNA 4. acute UTI 5. H/o partial nephrectomy possibly due to RCC as per family 6. H/o CAD s/p CABG , Cardiomyopathy with EF 50%, Chronic Systolic HF, 7. H/O HTN 8. h/o DM II 9. Paroxysmal atrial fibrillation 10. acute encephalpahty possibly due to uremic and metabolic encephalopathy 11. 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 H/o HTN 13. H/o DM II 14. h/O paroxysmal atrial fibrillation Plan: BUN/Cr improved to 25/0.95- other electrolytes stable - no labs today today on IV abx cancida, Vancomycin and Meropenem, Renally michelle all abx and monitor electrolytes amiodarone for rate control, on Clonidine 0.1 mg pO BID Renal US showed No hydronephrosis. No nephrolithiasis.- 3.1 x 2 x 2.1 centimeter hypoechoic lesion arising from the lower pole of the left kidney. Follow-up to exclude neoplasm. There is echogenic material layering within the dependent portion of the bl adder. Follow up to exclude infectious, inflammatory, or neoplastic process.- Atrophic left kidney- Family refused MRI abdomen will follow up Consultation Date/Type/Reason Admit Date/Time Oct 07, 2018 at 03:37 Initial Consult Date 10/07/18 Type of Consult NEPHROLOGY Requesting Provider: JAGJIT MONTES MD Date/Time of Note DATE: 10/15/18 TIME: 13:17 Exam/Review of Systems Exam Vitals Vital Signs Date Temp Pulse Resp B/P (MAP) Pulse Ox O2 O2 Flow FiO2 Time Delivery Rate 10/15/18 97.8 61 20 159/68 100 12:35 (98) 10/15/18 Nasal 2.0 11:40 Cannula Intake and Output 10/14/18 10/14/18 10/15/18 1515:00 23:00 07:00 IntakeIntake Total 50 ml 300 ml OutputOutput Total 550 ml BalanceBalance 50 ml -250 ml Exam Constitutional: alert, oriented Respiratory: diminished breath sounds Cardiovascular: irregular rhythm Gastrointestinal: soft, non-tender Genitourinary - Male: other (Incontinent of urine) Musculoskeletal: nl extremities to inspection Extremities: normal pulses Neurological: nl mental status Skin: other (Right foot wound with dressing) Results Result Diagram: 10/14/1862010/14/18620 Results 24hrs Laboratory Tests Test 10/14/18 16:53 10/14/18 21:07 10/15/18 04:28 10/15/18 07:53 Bedside Glucose 156 125 81 89 Test 10/15/18 12:41 Bedside Glucose 79 Medications Medication Current Medications Allopurinol (Zyloprim) 100 mg BID PO Last administered on 10/14/18 21:17; Admin Dose 100 MG; Start 10/07/18 at 21:00 Aspirin (Halfprin) 81 mg DAILY PO Last administered on 10/08/18at 08:14; Admin Dose 81 MG; Start 10/08/18 at 09:00; Status Hold Carvedilol (Coreg) 3.125 mg BID PO Last administered on 10/14/18at 09:01; Admin Dose 3.125 MG; Start 10/07/18 at 21:00 Docusate Sodium (Colace) 100 mg TID PO Last administered on 10/14/18at 21:16; Admin Dose 100 MG; Start 10/07/18 at 21:00 Pantoprazole (Protonix Tab) 40 mg DAILY@06 PO Last administered on 10/14/18at 06:44; Admin Dose 40 MG; Start 10/08/18 at 06:00 Ferrous Sulfate (Ferrous Sulfate (Ec)) 325 mg DAILY PO Last administered on 10/14/18at 09:01; Admin Dose 325 MG; Start 10/08/18 at 09:00 IV Flush (NS 3 ml) 3 ml PER PROTOCOL IV ; Start 10/07/18 at 12:30 Ondansetron HCl (Zofran Inj) 4 mg Q6H PRN IV NAUSEA/VOMITING; Start 10/07/18 at 12:30 Acetaminophen (Tylenol Tab) 650 mg Q6H PRN PO .PAIN 1-3 OR TEMP Last administered on 10/13/18at 00:18; Admin Dose 650 MG; Start 10/07/18 at 12:30 Acetaminophen/ Hydrocodone Bitart ([place] (5/325)) 1 tab Q6H PRN PO .PAIN 4-6 Last administered on 10/13/18at 21:07; Admin Dose 1 TAB; Start 10/07/18 at 12:30 Clonidine (Catapres) 0.1 mg BID PO Last administered on 10/14/18at 09:00; Admin Dose 0.1 MG; Start 10/07/18 at 22:00 Diagnostic Test (Pha) (Accu-Chek) 1 ea 02 XX Last administered on 10/13/18at 02:00; Admin Dose 1 EA; Start 10/08/18 at 02:00 Miscellaneous Information 1 ea NOTE XX ; Start 10/07/18 at 21:00 Glucose (Glutose) 15 gm Q15M PRN PO DECREASED GLUCOSE; Start 10/07/18 at 21:00 Glucose (Glutose) 22.5 gm Q15M PRN PO DECREASED GLUCOSE; Start 10/07/18 at 21:00 Dextrose (D50w Syringe) 25 ml Q15M PRN IV DECREASED GLUCOSE; Start 10/07/18 at 21:00 Dextrose (D50w Syringe) 50 ml Q15M PRN IV DECREASED GLUCOSE; Start 10/07/18 at 21:00 Glucagon (Glucagen) 1 mg Q15M PRN IM DECREASED GLUCOSE; Start 10/07/18 at 21:00 Glucose (Glutose) 15 gm Q15M PRN BUCCAL DECREASED GLUCOSE; Start 10/07/18 at 21:00 Meropenem/Sodium Chloride 50 ml @ 100 mls/hr Q12 IVPB Last administered on 10/15/18at 12:44; Admin Dose 100 MLS/HR; Start 10/09/18 at 12:00 Collagenase (Santyl) 1 applic DAILY TOP Last administered on 10/15/18at 09:00; Admin Dose 1 APPLIC; Start 10/09/18 at 19:00 Sodium Hypochlorite (Dakins Diluted (40)) 1 applic DAILY TP Last administered on 10/15/18at 09:00; Admin Dose 1 APPLIC; Start 10/11/18 at 09:00 Caspofungin 50 mg/ Sodium Chloride 250 ml @ 250 mls/hr Q24H IVPB Last administered on 10/14/18at 11:35; Admin Dose 250 MLS/HR; Start 10/12/18 at 11:00 Quetiapine Fumarate (Seroquel) 25 mg BID@0900,1200 PO Last administered on 10/15/18at 13:00; Admin Dose 25 MG; Start 10/11/18 at 12:00 Quetiapine Fumarate (Seroquel) 50 mg HS PO Last administered on 10/14/18at 21:17; Admin Dose 50 MG; Start 10/11/18 at 21:00 Amiodarone HCl (Cordarone) 100 mg DAILY PO Last administered on 10/15/18at 13:01; Admin Dose 100 MG; Start 10/13/18 at 09:00 Vancomycin HCl (Vanco Iv Per Pharmacy) VANCOMYCIN PER PHARMACY PER PROTOCOL XX ; Start 10/13/18 at 15:00 Insulin Glargine (Lantus) 12 units DAILY@1200 SC Last administered on 10/15/18at 13:11; Admin Dose 12 UNITS; Start 10/13/18 at 15:30 Vancomycin HCl 250 ml @ 125 mls/hr Q36H IVPB Last administered on 10/15/18at 04:23; Admin Dose 125 MLS/HR; Start 10/15/18 at 05:00 Insulin Aspart (Novolog Insulin Pen) (Adult SC Insulin - Mild Algorithm)... Q4 SC ; Start 10/15/18 at 05:00 Fentanyl (Sublimaze) 25 mcg PACU ORDER PRN IV MILD PAIN 1-3; Start 10/15/18 at 10:00; Stop 10/15/18 at 14:00 Ondansetron HCl (Zofran Inj) 4 mg PACU ORDER PRN IV NAUSEA/VOMITING; Start 10/15/18 at 10:00; Stop 10/15/18 at 14:00 EVA TREJO MD Oct 15, 2018 13:17
--- NOTE | 2018-10-15 13:21 | PN ---
"Date/Time of Note Date/Time of Note DATE: 10/15/18 TIME: 13:19 Assessment/Plan Lines/Catheters IV Catheter Type (from Nrs): Peripheral IV Odonnell in Place (from Nrs): Yes Assessment/Plan Chief Complaint/Hosp Course 1. Right buttock wound; Foot wound with probable osteo- -debridement as needed -local care -frequent turning and off-loading -low air loss mattress -vitamin c -short term zinc -optimize nutrition -foot wounds per podiatry> plan for debridement -calf wound per vascular 2. UTI: -abx per sensitivity -frequent bladder emptying/cath care 3. BRANDON: hypoechoic lesion left kidney, possible neoplasm; hx of renal ca and nephrectomy -judicious fluids -limit nephrotoxic meds -armenta for neoplasm>per medical team 4. Microcytic hypochromic anemia: sp prbc tx -monitor -transfuse as needed -GI w/u in process 5. Obesity bmi 31 -diet and exercise optimization -encourage weight loss 6. Poor appetite: -supportive -treat infections 7. Hepatic steatosis: -nutrition and weight optimization -medical fu 8. Gastritis: -PPI Thank you. Patient seen and examined in collaboration with Dr. Isaac Erwin. Subjective 24 Hr Interval Summary S/p Ex laurie right heel. Appears comfortable. Nonverbal indicators of pain not present. No fevers, labored breathing, congested cough, vomiting, diarrhea, sz, rash, right heel bleeding. Exam/Review of Systems Vital Signs Vitals Vital Signs Date Temp Pulse Resp B/P (MAP) Pulse Ox O2 O2 Flow FiO2 Time Delivery Rate 10/15/18 97.8 61 20 159/68 100 12:35 (98) 10/15/18 Nasal 2.0 11:40 Cannula Intake and Output 10/14/18 10/14/18 10/15/18 1515:00 23:00 07:00 IntakeIntake Total 50 ml 300 ml OutputOutput Total 550 ml BalanceBalance 50 ml -250 ml Exam Free Text/Dictation Constitutional: alert; No oriented (confused) Psych: anxiety Head: normocephalic, atraumatic Eyes: nl conjunctiva, EOMI, nl lids, nl sclera ENMT: nl external ears & nose, nl nasal mucosa & septum, mucosa pink and moist Neck: supple, non-tender Respiratory: normal air movement; No congested cough Cardiovascular: regular rate and rhythm, nl pulses; No edema Gastrointestinal: soft, non-tender; No distended, No rebound or guarding Genitourinary - Female: nl external genitalia Musculoskeletal: nl extremities to inspection, muscle weakness (gen weakness) Extremities: normal pulses; No edema, No pitting pedal edema Neurological: nl speech; No nl mental status (forgetful), No nl strength (gen weakness) Skin: other (Multiple wounds: right buttock:min slough, no periwound erythem a/drainage/odor | Left calf:min slough, min alecia wound erythema | Bilateral foot wounds ; right heel wrapped); No rash or lesions Results Result Diagram: 10/14/1862010/14/18620 JUSTINE GUEVARA NP Oct 15, 2018 13:21"
[2018-10-15] MEDS: CASPOFUNGIN 50 MG in SOD CHLORIDE 0.9% 250 ML IVPB SCH (13:50)
--- NOTE | 2018-10-15 15:08 | CONS ---
Assessment/Plan Assessment/Plan Assessment/Plan (Daily) 82 yo female with hl/o anemia No signs GI bleeding per RN. She had been agitated yesterday which was not baseline for her. She was started on seroquel. Lethargic. When I try to examine her she starts to scream. 1. Urinary tract infection. 2. Sepsis. 3. Status post coronary artery bypass graft. 4. Peripheral vascular disease. 5. Atrial fibrillation. 6. Status post surgery for renal cell carcinoma 8 years ago. 7. Diabetes. 8. Hypertension. 9. Severe anemia. -IV iron 10. Transaminitis -elevated ALT/AST -improving -CBD 7mm, t bili wnl. 11. Elevated CEA: 24.1 12. Chronic gastritis 13. S/P EGD 10/13 14. Fatty liver with possible hepatocellular disease noted on US PLAN: [facility] and for active GI bleeding She will need colonoscopy, pt and son refused NGT to clear pt bowels, poor prep with just tap water enemas Consultation Date/Type/Reason Admit Date/Time Oct 07, 2018 at 03:37 Initial Consult Date 10/07/18 Requesting Provider: JAGJIT MONTES MD Date/Time of Note DATE: 10/15/18 TIME: 15:07 24 HR Interval Summary Constitutional: poor po Exam/Review of Systems Exam Vitals Vital Signs Date Temp Pulse Resp B/P (MAP) Pulse Ox O2 O2 Flow FiO2 Time Delivery Rate 10/15/18 97.8 61 20 159/68 100 12:35 (98) 10/15/18 Nasal 2.0 11:40 Cannula Intake and Output 10/14/18 10/14/18 10/15/18 1515:00 23:00 07:00 IntakeIntake Total 50 ml 300 ml OutputOutput Total 550 ml BalanceBalance 50 ml -250 ml Constitutional: alert, oriented, well developed Psych: no complaints, nl mood/affect Head: normocephalic, atraumatic Eyes: nl conjunctiva, EOMI, nl lids, nl sclera, PERRL ENMT: nl external ears & nose, nl lips & teeth, nl nasal mucosa & septum Neck: supple, non-tender Respiratory: clear to auscultation, normal air movement Cardiovascular: regular rate and rhythm, nl pulses Gastrointestinal: soft, nl liver, spleen, non-tender Musculoskeletal: nl extremities to inspection, nl gait and stance Extremities: normal pulses Neurological: 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 intact, nl mental status, nl speech, nl strength Skin: nl turgor; No rash or lesions Lymph: nl lymph nodes Results Result Diagram: 10/14/1862010/14/18620 Results 24hrs Laboratory Tests Test 10/14/18 16:53 10/14/18 21:07 10/15/18 04:28 10/15/18 07:53 Bedside Glucose 156 125 81 89 Test 10/15/18 12:41 Bedside Glucose 79 Medications Medication Current Medications Allopurinol (Zyloprim) 100 mg BID PO Last administered on 10/14/18at 21:17; Admin Dose 100 MG; Start 10/07/18 at 21:00 Aspirin (Halfprin) 81 mg DAILY PO Last administered on 10/08/18at 08:14; Admin Dose 81 MG; Start 10/08/18 at 09:00; Status Hold Carvedilol (Coreg) 3.125 mg BID PO Last administered on 10/14/18at 09:01; Admin Dose 3.125 MG; Start 10/07/18 at 21:00 Docusate Sodium (Colace) 100 mg TID PO Last administered on 10/15/18at 13:51; Admin Dose 100 MG; Start 10/07/18 at 21:00 Pantoprazole (Protonix Tab) 40 mg DAILY@06 PO Last administered on 10/14/18at 06:44; Admin Dose 40 MG; Start 10/08/18 at 06:00 Ferrous Sulfate (Ferrous Sulfate (Ec)) 325 mg DAILY PO Last administered on 10/14/18at 09:01; Admin Dose 325 MG; Start 10/08/18 at 09:00 IV Flush (NS 3 ml) 3 ml PER PROTOCOL IV ; Start 10/07/18 at 12:30 Ondansetron HCl (Zofran Inj) 4 mg Q6H PRN IV NAUSEA/VOMITING; Start 10/07/18 at 12:30 Acetaminophen (Tylenol Tab) 650 mg Q6H PRN PO .PAIN 1-3 OR TEMP Last admini stered on 10/13/18at 00:18; Admin Dose 650 MG; Start 10/07/18 at 12:30 Acetaminophen/ Hydrocodone Bitart ([place] (5/325)) 1 tab Q6H PRN PO .PAIN 4-6 Last administered on 10/13/18at 21:07; Admin Dose 1 TAB; Start 10/07/18 at 12:30 Clonidine (Catapres) 0.1 mg BID PO Last administered on 10/14/18at 09:00; Admin Dose 0.1 MG; Start 10/07/18 at 22:00 Diagnostic Test (Pha) (Accu-Chek) 1 ea 02 XX Last administered on 10/13/18at 02:00; Admin Dose 1 EA; Start 10/08/18 at 02:00 Miscellaneous Information 1 ea NOTE XX ; Start 10/07/18 at 21:00 Glucose (Glutose) 15 gm Q15M PRN PO DECREASED GLUCOSE; Start 10/07/18 at 21:00 Glucose (Glutose) 22.5 gm Q15M PRN PO DECREASED GLUCOSE; Start 10/07/18 at 21:00 Dextrose (D50w Syringe) 25 ml Q15M PRN IV DECREASED GLUCOSE; Start 10/07/18 at 21:00 Dextrose (D50w Syringe) 50 ml Q15M PRN IV DECREASED GLUCOSE; Start 10/07/18 at 21:00 Glucagon (Glucagen) 1 mg Q15M PRN IM DECREASED GLUCOSE; Start 10/07/18 at 21:00 Glucose (Glutose) 15 gm Q15M PRN BUCCAL DECREASED GLUCOSE; Start 10/07/18 at 21:00 Meropenem/Sodium Chloride 50 ml @ 100 mls/hr Q12 IVPB Last administered on 10/15/18at 12:44; Admin Dose 100 MLS/HR; Start 10/09/18 at 12:00 Collagenase (Santyl) 1 applic DAILY TOP Last administered on 10/15/18at 09:00; Admin Dose 1 APPLIC; Start 10/09/18 at 19:00 Sodium Hypochlorite (Dakins Diluted ()) 1 applic DAILY TP Last administered on 10/15/18at 09:00; Admin Dose 1 APPLIC; Start 10/11/18 at 09:00 Caspofungin 50 mg/ Sodium Chloride 250 ml @ 250 mls/hr Q24H IVPB Last administered on 10/15/18at 13:50; Admin Dose 250 MLS/HR; Start 10/12/18 at 11:00 Quetiapine Fumarate (Seroquel) 25 mg BID@0900,1200 PO Last administered on 10/15/18at 13:00; Admin Dose 25 MG; Start 10/11/18 at 12:00 Quetiapine Fumarate (Seroquel) 50 mg HS PO Last administered on 10/14/18at 21: 17; Admin Dose 50 MG; Start 10/11/18 at 21:00 Amiodarone HCl (Cordarone) 100 mg DAILY PO Last administered on 10/15/18at 13:01; Admin Dose 100 MG; Start 10/13/18 at 09:00 Vancomycin HCl (Vanco Iv Per Pharmacy) VANCOMYCIN PER PHARMACY PER PROTOCOL XX ; Start 10/13/18 at 15:00 Insulin Glargine (Lantus) 12 units DAILY@1200 SC Last administered on 10/15/18at 13:11; Admin Dose 12 UNITS; Start 10/13/18 at 15:30 Vancomycin HCl 250 ml @ 125 mls/hr Q36H IVPB Last administered on 10/15/18at 04:23; Admin Dose 125 MLS/HR; Start 10/15/18 at 05:00 Insulin Aspart (Novolog Insulin Pen) (Adult SC Insulin - Mild Algorithm)... Q4 SC ; Start 10/15/18 at 05:00 VELIA CASTRO MD Oct 15, 2018 15:08
[2018-10-15] MEDS: HYDROCODONE/APAP (5/325) TAB PO PRN (15:39)
--- NOTE | 2018-10-15 19:39 | PAC ---
Date/Time of Note Date/Time of Note DATE: 10/15/18 TIME: 19:39 Post-Anesthesia Notes Post-Anesthesia Note Last documented vital signs Vital Signs Date Temp Pulse Resp B/P (MAP) Pulse Ox O2 O2 Flow FiO2 Time Delivery Rate 10/15/18 98.0 59 20 142/63 100 15:20 (89) 10/15/18 Nasal 2.0 11:40 Cannula Activity: WNL Respiratory function: WNL Cardiovascular function: WNL Mental status: Baseline Pain reasonably controlled: Yes Hydration appropriate: Yes Nausea/Vomiting absent: Yes ANITA ALVAREZ Oct 15, 2018 19:39
[2018-10-15] MEDS: ACETAMINOPHEN 325 MG TAB PO PRN (20:32)
[2018-10-16] MEDS: Insulin NOVOLOG SS MILD Algorithm (NPO/TPN/ENTERAL FEEDS) SC SCH ×3 (01:00→09:00)
[2018-10-16] MEDS: ACCU-CHEK XX SCH (02:00)
[2018-10-16 03:40] VITALS: BP 103/58; PULSE 60; RESP 18
[2018-10-16] MEDS: PANTOPRAZOLE (EC) 40 MG TAB PO SCH (06:18)
[2018-10-16 07:51] VITALS: BP 132/62; PULSE 55; RESP 28
[2018-10-16] MEDS: QUETIAPINE 25 MG TAB PO SCH ×3 (08:45→21:02)
[2018-10-16] MEDS: ALLOPURINOL 100 MG TAB PO SCH ×2 (08:45→21:01)
[2018-10-16] MEDS: DOCUSATE SODIUM 100 MG CAP PO SCH ×3 (08:45→21:01)
[2018-10-16] MEDS: FERROUS SULFATE (EC) 325 MG TAB PO SCH (08:45)
[2018-10-16] MEDS: MEROPENEM 500MG/50 ML (PMX) 50 ML IVPB SCH ×2 (08:46→21:01)
[2018-10-16] MEDS: COLLAGENASE 5 GM (UD JAR) TOP SCH (08:46)
[2018-10-16] MEDS: DAKINS 0.0125%(1/40) 473 ML SOLUTION TP SCH (08:47)
[2018-10-16] MEDS: AMIODARONE 200 MG TAB PO SCH (08:52)
[2018-10-16] MEDS: morphine 2 MG INJ IV PRN (09:04)
--- NOTE | 2018-10-16 10:38 | PN ---
"Date/Time of Note Date/Time of Note DATE: 10/16/18 TIME: 10:35 Assessment/Plan Lines/Catheters IV Catheter Type (from Nrs): Saline Lock Odonnell in Place (from Nrs): Yes Assessment/Plan Chief Complaint/Hosp Course 1. Right buttock wound; Foot wound with probable osteo- -debridement as needed -continue local care -frequent turning and off-loading -low air loss mattress -vitamin c -short term zinc -optimize nutrition -foot wounds per podiatry> status post debridement currently with wound VAC -calf wound per vascular 2. UTI: -abx per sensitivity -frequent bladder emptying/cath care 3. BRANDON: Resolved; hypoechoic lesion left kidney, possible neoplasm; hx of renal ca and nephrectomy -Monitor -armenta for neoplasm>per medical team 4. Microcytic hypochromic anemia: sp prbc tx -monitor -transfuse as needed -GI w/u in process 5. Obesity bmi 31 -diet and exercise optimization -encourage weight loss 6. Poor appetite: -supportive -treat infections 7. Hepatic steatosis: -nutrition and weight optimization -medical fu 8. Gastritis: -PPI Thank you. Patient seen and examined in collaboration with Dr. Isaac Erwin. Subjective 24 Hr Interval Summary Sleepy. Appears comfortable. Continues to have wound VAC on right foot. N onverbal indicators of pain not present. No fevers, labored breathing, congested cough, vomiting, diarrhea, seizure, rash, buttock wound drainage or odor. Exam/Review of Systems Vital Signs Vitals Vital Signs Date Temp Pulse Resp B/P (MAP) Pulse Ox O2 O2 Flow FiO2 Time Delivery Rate 10/16/18 97.5 55 28 132/62 100 Nasal 07:51 (85) Cannula 10/16/18 1.0 01:20 Intake and Output 10/15/18 10/15/18 10/16/18 1515:00 23:00 07:00 IntakeIntake Total 250 ml 400 ml 150 ml OutputOutput Total 2 ml 190 ml 450 ml BalanceBalance 248 ml 210 ml -300 ml Exam Free Text/Dictation Constitutional: alert; No oriented (confused) Psych: anxiety Head: normocephalic, atraumatic Eyes: nl conjunctiva, EOMI, nl lids, nl sclera ENMT: nl external ears & nose, nl nasal mucosa & septum, mucosa pink and moist Neck: supple, non-tender Respiratory: normal air movement; No congested cough Cardiovascular: regular rate and rhythm, nl pulses; No edema Gastrointestinal: soft, non-tender; No distended, No rebound or guarding Genitourinary - Female: nl external genitalia Musculoskeletal: nl extremities to inspection, muscle weakness (gen weakness) Extremities: normal pulses; No edema, No pitting pedal edema Neurological: nl speech; No nl mental status (forgetful), No nl strength (gen weakness) Skin: other (Multiple wounds: right buttock:min slough, no periwound erythema/drainage/odor | Left calf:min slough, min alecia wound erythema | Bilateral foot wounds ; right heel wrapped-wound VAC); No rash or lesions Results Result Diagram: 10/16/18 0642 10/16/18 0642 JUSTINE GUEVARA NP Oct 16, 2018 10:38"
[2018-10-16 11:35] VITALS: BP 137/63; PULSE 52; RESP 18
[2018-10-16] MEDS: INSULIN GLARGINE [LANTus] (100 UNITS/ML) SYG SC SCH (12:00)
[2018-10-16] MEDS: CASPOFUNGIN 50 MG in SOD CHLORIDE 0.9% 250 ML IVPB SCH (12:09)
--- NOTE | 2018-10-16 13:35 | CONS ---
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 Wound care nurse to change wound VAC dressings Sat/sat/Saturday. Awaiting intra op cultures and pathology results. Continue with abx therapy as recommended. Patient will need future staged procedures and follow up regarding heel wound. Vascular surgery following left lower extremity ulceration and appreciate input regarding vascular supply. Consultation Date/Type/Reason Admit Date/Time Oct 07, 2018 at 03:37 Initial Consult Date 10/10/18 Requesting Provider: JAGJIT MONTES MD Date/Time of Note DATE: 10/16/18 TIME: 13:31 24 HR Interval Summary Free Text/Dictation No acute events overnight. Per nursing staff Exam/Review of Systems Exam Vitals Vital Signs Date Temp Pulse Resp B/P (MAP) Pulse Ox O2 O2 Flow FiO2 Time Delivery Rate 10/16/18 97.8 52 18 137/63 100 Nasal 11:35 (87) Cannula 10/16/18 2.0 08:00 Intake and Output 10/15/18 10/15/18 10/16/18 1515:00 23:00 07:00 IntakeIntake Total 250 ml 400 ml 150 ml OutputOutput Total 2 ml 190 ml 450 ml BalanceBalance 248 ml 210 ml -300 ml Exam wound VAC dressings clean dry and intact. No strikethrough noted. Serosanguinous drainage output noted to canister. 125mmHg low continuous therapy. Results Result Diagram: 10/16/18 0642 10/16/18 0642 Results 24hrs Laboratory Tests Test 10/15/18 17:23 10/15/18 20:35 10/16/18 01:08 10/16/18 05:44 Bedside Glucose 110 84 80 84 Test 10/16/18 06:42 10/16/18 09:08 10/16/18 12:37 White Blood Count 10.9 H Red Blood Count 3.27 L Hemoglobin 8.7 L Hematocrit 28.4 L Mean Corpuscular 86.9 Volume Mean Corpuscular 26.6 L Hemoglobin Mean Corpuscular 30.6 L Hemoglobin Concent Red Cell 19.2 H Distribution Width Platelet Count 282 Mean Platelet Volume 9.6 Immature 0.500 H Granulocytes % Neutrophils % 71.5 Lymphocytes % 18.3 Monocytes % 7.7 Eosinophils % 1.7 Basophils % 0.3 Nucleated Red Blood 0.0 Cells % Immature 0.050 H Granulocytes # Neutrophils # 7.8 H Lymphocytes # 2.0 Monocytes # 0.8 Eosinophils # 0.2 Basophils # 0.0 Nucleated Red Blood 0.0 Cells # Sodium Level 140 Potassium Level 3.7 Chloride Level 113 H Carbon Dioxide Level 23 Anion Gap 4 L Blood Urea Nitrogen 22 H Creatinine 0.90 Est Glomerular Filtrat Rate mL/min Glucose Level 65 L Calcium Level 8.6 Magnesium Level 1.3 L Bedside Glucose 88 76 Medications Medication Current Medications Allopurinol (Zyloprim) 100 mg BID PO Last administered on 10/16/18 08:45; Admin Dose 100 MG; Start 10/07/18 at 21:00 Aspirin (Halfprin) 81 mg DAILY PO Last administered on 10/08/18 08:14; Admin Dose 81 MG; Start 10/08/18 at 09:00; Status Hold Carvedilol (Coreg) 3.125 mg BID PO Last administered on 10/15/18 20:34; Admin Dose 3.125 MG; Start 10/07/18 at 21:00 Docusate Sodium (Colace) 100 mg TID PO Last administered on 10/16/18 12:10; Admin Dose 100 MG; Start 10/07/18 at 21:00 Pantoprazole (Protonix Tab) 40 mg DAILY@06 PO Last administered on 10/16/18 06:18; Admin Dose 40 MG; Start 10/08/18 at 06:00 Ferrous Sulfate (Ferrous Sulfate (Ec)) 325 mg DAILY PO Last administered on 10/16/18 08:45; Admin Dose 325 MG; Start 10/08/18 at 09:00 IV Flush (NS 3 ml) 3 ml PER PROTOCOL IV ; Start 10/07/18 at 12:30 Ondansetron HCl (Zofran Inj) 4 mg Q6H PRN IV NAUSEA/VOMITING; Start 10/07/18 at 12:30 Acetaminophen (Tylenol Tab) 650 mg Q6H PRN PO .PAIN 1-3 OR TEMP Last administered on 10/15/18 20:32; Admin Dose 650 MG; Start 10/07/18 at 12:30 Acetaminophen/ Hydrocodone Bitart ([place] (5/325)) 1 tab Q6H PRN PO .PAIN 4-6 Last administered on 10/15/18at 15:39; Admin Dose 1 TAB; Start 10/07/18 at 12:30 Clonidine (Catapres) 0.1 mg BID PO Last administered on 10/16/18 08:46; Admin Dose 0.1 MG; Start 10/07/18 at 22:00 Diagnostic Test (Pha) (Accu-Chek) 1 ea 02 XX Last administered on 10/13/18at 02:00; Admin Dose 1 EA; Start 10/08/18 at 02:00 Miscellaneous Information 1 ea NOTE XX ; Start 10/07/18 at 21:00 Glucose (Glutose) 15 gm Q15M PRN PO DECREASED GLUCOSE; Start 10/07/18 at 21:00 Glucose (Glutose) 22.5 gm Q15M PRN PO DECREASED GLUCOSE; Start 10/07/18 at 21:00 Dextrose (D50w Syringe) 25 ml Q15M PRN IV DECREASED GLUCOSE; Start 10/07/18 at 21:00 Dextrose (D50w Syringe) 50 ml Q15M PRN IV DECREASED GLUCOSE; Start 10/07/18 at 21:00 Glucagon (Glucagen) 1 mg Q15M PRN IM DECREASED GLUCOSE; Start 10/07/18 at 21:00 Glucose (Glutose) 15 gm Q15M PRN BUCCAL DECREASED GLUCOSE; Start 10/07/18 at 21:00 Meropenem/Sodium Chloride 50 ml @ 100 mls/hr Q12 IVPB Last administered on 10/16/18at 08:46; Admin Dose 100 MLS/HR; Start 10/09/18 at 12:00 Collagenase (Santyl) 1 applic DAILY TOP Last administered on 10/16/18 08:46; Admin Dose 1 APPLIC; Start 10/09/18 at 19:00 Sodium Hypochlorite (Dakins Diluted ()) 1 applic DAILY TP Last administered on 10/16/18 08:47; Admin Dose 1 APPLIC; Start 10/11/18 at 09:00 Caspofungin 50 mg/ Sodium Chloride 250 ml @ 250 mls/hr Q24H IVPB Last administered on 10/16/18at 12:09; Admin Dose 250 MLS/HR; Start 10/12/18 at 11:00 Quetiapine Fumarate (Seroquel) 25 mg BID@0900,1200 PO Last administered on 10/16/18at 12:10; Admin Dose 25 MG; Start 10/11/18 at 12:00 Quetiapine Fumarate (Seroquel) 50 mg HS PO Last administered on 10/15/18at 20:32; Admin Dose 50 MG; Start 10/11/18 at 21:00 Amiodarone HCl (Cordarone) 100 mg DAILY PO Last administered on 10/15/18at 13:01; Admin Dose 100 MG; Start 10/13/18 at 09:00 Vancomycin HCl (Vanco Iv Per Pharmacy) VANCOMYCIN PER PHARMACY PER PROTOCOL XX ; Start 10/13/18 at 15:00 Insulin Glargine (Lantus) 12 units DAILY@1200 SC Last administered on 10/15/18at 13:11; Admin Dose 12 UNITS; Start 10/13/18 at 15:30 Vancomycin HCl 250 ml @ 125 mls/hr Q36H IVPB Last administered on 10/15/18at 04:23; Admin Dose 125 MLS/HR; Start 10/15/18 at 05:00 Morphine Sulfate (morphine) 2 mg Q4H PRN IV SEVERE PAIN LEVEL 7-10 Last administered on 10/16/18at 09:04; Admin Dose 2 MG; Start 10/15/18 at 21:00 Insulin Aspart (Novolog Insulin Pen) (Adult SC Insulin - Mild Algorithm)... AC DINNER BEDTIME SC ; Start 10/16/18 at 17:25 Miscellaneous Information (*Rx Drug Level Order Reminder*) JESÚS TR AT 0400 0400 ONCE XX ; Start 10/18/18 at 04:00; Stop 10/18/18 at 04:01 NANCY DIANE DPM Oct 16, 2018 13:35
--- NOTE | 2018-10-16 14:11 | PN ---
Date/Time of Note Date/Time of Note DATE: 10/16/18 TIME: 14:05 Assessment/Plan VTE Prophylaxis Risk score (from [facility])>0 risk: 10 SCD applied (from [facility]): No SCD contraindicated: bilateral LE trauma Pharmacological prophylaxis: NA/contraindicated Pharm contraindication: anticoag not tolerated Lines/Catheters IV Catheter Type (from [facility]): [place] Lock Urinary Cath still in place: Yes Reason Cath still needed: urinary retention Assessment/Plan Hospital Course Patient status post right heel debridement application, soft tissue and bone biopsy, application allograft and and wound VAC. Patient is lethargic poor appetite will start IV fluids with dextrose, patient is bradycardic, with a rate of 57-60 with drop to 70s at night, will hold clonidine, continue telemetry monitoring. Magnesium replaced. Assessment/Plan -Chronic gastritis per EGD, continue PPI. -Anemia, history of emesis at home and loss of appetite. Dr. Winkler is following in gastroenterology consultation. Colonoscopy recommended however patient is unable to take p.o. prep, patient's son refused NG tube placement. -Sepsis secondary to urinary tract infection and possible early pneumonia, resolving. Continue antibiotics per ID. Dr. Elias is following in infection disease consultation. -UTI. Continue antibiotics per ID. -Hyperkalemia, resolved, status post treatment -Acute kidney injury, continue gentle hydration, monitor BUN and creatinine. Dr. Arreaga is following in nephrology consultation. -Hypertension -Systolic congestive heart failure. Dr. Chávez is following in cardiology consultation. -Cardiomyopathy with ejection fraction 50% -Atrial fibrillation, patient did not tolerate anticoagulation in the past due to bleeding and anemia, patient was on aspirin which is currently held due si gnificant drop in hemoglobin. -Coronary artery disease, status post CABG -Diabetes mellitus type 2, continue Lantus and pre-meal NovoLog. -History of endocarditis, status post treatment -Sacral, right foot, and left garcia wounds present on admission. Continue current care per wound care recommendations. -Right heel wound with early osteomyelitis, status post debridement and application of allograft and wound VAC on 10/15/2018, Dr. Garland is following and podiatry consultation -History of left femoral artery thrombectomy, left garcia open wound. Dr. Dawson is asked to see patient in vascular surgery consultation for evaluation of left garcia wound. Further recommendations based on clinical course. Plan of care discussed with Dr. Mi. Result Diagram: 10/16/18 0642 10/16/18 0642 Results 24hrs Laboratory Tests Test 10/15/18 17:23 10/15/18 20:35 10/16/18 01:08 10/16/18 05:44 Bedside Glucose 110 84 80 84 Test 10/16/18 06:42 10/16/18 09:08 10/16/18 12:37 White Blood Count 10.9 H Red Blood Count 3.27 L Hemoglobin 8.7 L Hematocrit 28.4 L Mean Corpuscular 86.9 Volume Mean Corpuscular 26.6 L Hemoglobin Mean Corpuscular 30.6 L Hemoglobin Concent Red Cell 19.2 H Distribution Width Platelet Count 282 Mean Platelet Volume 9.6 Immature 0.500 H Granulocytes % Neutrophils % 71.5 Lymphocytes % 18.3 Monocytes % 7.7 Eosinophils % 1.7 Basophils % 0.3 Nucleated Red Blood 0.0 Cells % Immature 0.050 H Granulocytes # Neutrophils # 7.8 H Lymphocytes # 2.0 Monocytes # 0.8 Eosinophils # 0.2 Basophils # 0.0 Nucleated Red Blood 0.0 Cells # Sodium Level 140 Potassium Level 3.7 Chloride Level 113 H Carbon Dioxide Level 23 Anion Gap 4 L Blood Urea Nitrogen 22 H Creatinine 0.90 Est Glomerular Filtrat Rate mL/min Glucose Level 65 L Calcium Level 8.6 Magnesium Level 1.3 L Bedside Glucose 88 76 Exam/Review of Systems Exam Vitals Vital Signs Date Temp Pulse Resp B/P (MAP) Pulse Ox O2 O2 Flow FiO2 Time Delivery Rate 10/16/18 97.8 52 18 137/63 100 Nasal 11:35 (87) Cannula 10/16/18 2.0 08:00 Intake and Output 10/15/18 10/15/18 10/16/18 1515:00 23:00 07:00 IntakeIntake Total 250 ml 400 ml 150 ml OutputOutput Total 2 ml 190 ml 450 ml BalanceBalance 248 ml 210 ml -300 ml Exam Constitutional: alert, oriented Respiratory: diminished breath sounds Cardiovascular: irregular rhythm Gastrointestinal: soft, non-tender Genitourinary - Male: other (Incontinent of urine) Musculoskeletal: nl extremities to inspection Extremities: normal pulses Neurological: nl mental status Skin: other (multiple wounds) Constitutional: alert, frail Head: normocephalic Respiratory: clear to auscultation Cardiovascular: regular rate and rhythm Gastrointestinal: soft, non-tender Musculoskeletal: nl extremities to inspection Extremities: normal pulses, other (Right foot wound with wound VAC) Skin: other (Left garcia and sacral wounds) Results Results 24hrs Laboratory Tests Test 10/15/18 17:23 10/15/18 20:35 10/16/18 01:08 10/16/18 05:44 Bedside Glucose 110 84 80 84 Test 10/16/18 06:42 10/16/18 09:08 10/16/18 12:37 White Blood Count 10.9 H Red Blood Count 3.27 L Hemoglobin 8.7 L Hematocrit 28.4 L Mean Corpuscular 86.9 Volume Mean Corpuscular 26.6 L Hemoglobin Mean Corpuscular 30.6 L Hemoglobin Concent Red Cell 19.2 H Distribution Width Platelet Count 282 Mean Platelet Volume 9.6 Immature 0.500 H Granulocytes % Neutrophils % 71.5 Lymphocytes % 18.3 Monocytes % 7.7 Eosinophils % 1.7 Basophils % 0.3 Nucleated Red Blood 0.0 Cells % Immature 0.050 H Granulocytes # Neutrophils # 7.8 H Lymphocytes # 2.0 Monocytes # 0.8 Eosinophils # 0.2 Basophils # 0.0 Nucleated Red Blood 0.0 Cells # Sodium Level 140 Potassium Level 3.7 Chloride Level 113 H Carbon Dioxide Level 23 Anion Gap 4 L Blood Urea Nitrogen 22 H Creatinine 0.90 Est Glomerular Filtrat Rate mL/min Glucose Level 65 L Calcium Level 8.6 Magnesium Level 1.3 L Bedside Glucose 88 76 Medications Medication Current Medications Allopurinol (Zyloprim) 100 mg BID PO Last administered on 10/16/18at 08:45; Admin Dose 100 MG; Start 10/07/18 at 21:00 Aspirin (Halfprin) 81 mg DAILY PO Last administered on 10/08/18at 08:14; Admin Dose 81 MG; Start 10/08/18 at 09:00; Status Hold Carvedilol (Coreg) 3.125 mg BID PO Last administered on 10/15/18at 20:34; Admin Dose 3.125 MG; Start 10/07/18 at 21:00 Docusate Sodium (Colace) 100 mg TID PO Last administered on 10/16/18at 12:10; Admin Dose 100 MG; Start 10/07/18 at 21:00 Pantoprazole (Protonix Tab) 40 mg DAILY@06 PO Last administered on 10/16/18at 06:18; Admin Dose 40 MG; Start 10/08/18 at 06:00 Ferrous Sulfate (Ferrous Sulfate (Ec)) 325 mg DAILY PO Last administered on 10/16/18at 08:45; Admin Dose 325 MG; Start 10/08/18 at 09:00 IV Flush (NS 3 ml) 3 ml PER PROTOCOL IV ; Start 10/07/18 at 12:30 Ondansetron HCl (Zofran Inj) 4 mg Q6H PRN IV NAUSEA/VOMITING; Start 10/07/18 at 12:30 Acetaminophen (Tylenol Tab) 650 mg Q6H PRN PO .PAIN 1-3 OR TEMP Last admi nistered on 10/15/18at 20:32; Admin Dose 650 MG; Start 10/07/18 at 12:30 Acetaminophen/ Hydrocodone Bitart ([place] (5/325)) 1 tab Q6H PRN PO .PAIN 4-6 Last administered on 10/15/18at 15:39; Admin Dose 1 TAB; Start 10/07/18 at 12:30 Clonidine (Catapres) 0.1 mg BID PO Last administered on 10/16/18at 08:46; Admin Dose 0.1 MG; Start 10/07/18 at 22:00 Diagnostic Test (Pha) (Accu-Chek) 1 ea 02 XX Last administered on 10/13/18at 02:00; Admin Dose 1 EA; Start 10/08/18 at 02:00 Miscellaneous Information 1 ea NOTE XX ; Start 10/07/18 at 21:00 Glucose (Glutose) 15 gm Q15M PRN PO DECREASED GLUCOSE; Start 10/07/18 at 21:00 Glucose (Glutose) 22.5 gm Q15M PRN PO DECREASED GLUCOSE; Start 10/07/18 at 21:00 Dextrose (D50w Syringe) 25 ml Q15M PRN IV DECREASED GLUCOSE; Start 10/07/18 at 21:00 Dextrose (D50w Syringe) 50 ml Q15M PRN IV DECREASED GLUCOSE; Start 10/07/18 at 21:00 Glucagon (Glucagen) 1 mg Q15M PRN IM DECREASED GLUCOSE; Start 10/07/18 at 21:00 Glucose (Glutose) 15 gm Q15M PRN BUCCAL DECREASED GLUCOSE; Start 10/07/18 at 21:00 Meropenem/Sodium Chloride 50 ml @ 100 mls/hr Q12 IVPB Last administered on 10/16/18 08:46; Admin Dose 100 MLS/HR; Start 10/09/18 at 12:00 Collagenase (Santyl) 1 applic DAILY TOP Last administered on 10/16/18 08:46; Admin Dose 1 APPLIC; Start 10/09/18 at 19:00 Sodium Hypochlorite (Dakins Diluted ()) 1 applic DAILY TP Last administered on 10/16/18 08:47; Admin Dose 1 APPLIC; Start 10/11/18 at 09:00 Caspofungin 50 mg/ Sodium Chloride 250 ml @ 250 mls/hr Q24H IVPB Last administered on 10/16/18 12:09; Admin Dose 250 MLS/HR; Start 10/12/18 at 11:00 Quetiapine Fumarate (Seroquel) 25 mg BID@0900,1200 PO Last administered on 10/16/18 12:10; Admin Dose 25 MG; Start 10/11/18 at 12:00 Quetiapine Fumarate (Seroquel) 50 mg HS PO Last administered on 10/15/18at 2 0:32; Admin Dose 50 MG; Start 10/11/18 at 21:00 Amiodarone HCl (Cordarone) 100 mg DAILY PO Last administered on 10/15/18 13:01; Admin Dose 100 MG; Start 10/13/18 at 09:00 Vancomycin HCl (Vanco Iv Per Pharmacy) VANCOMYCIN PER PHARMACY PER PROTOCOL XX ; Start 10/13/18 at 15:00 Insulin Glargine (Lantus) 12 units DAILY@1200 SC Last administered on 10/15/18 13:11; Admin Dose 12 UNITS; Start 10/13/18 at 15:30 Vancomycin HCl 250 ml @ 125 mls/hr Q36H IVPB Last administered on 10/15/18 04:23; Admin Dose 125 MLS/HR; Start 10/15/18 at 05:00 Morphine Sulfate (morphine) 2 mg Q4H PRN IV SEVERE PAIN LEVEL 7-10 Last administered on 10/16/18 09:04; Admin Dose 2 MG; Start 10/15/18 at 21:00 Insulin Aspart (Novolog Insulin Pen) (Adult SC Insulin - Mild Algorithm)... AC DINNER BEDTIME SC ; Start 10/16/18 at 17:25 Miscellaneous Information (*Rx Drug Level Order Reminder*) JESÚS OAKES AT 0400 0400 ONCE XX ; Start 10/18/18 at 04:00; Stop 10/18/18 at 04:01 OCTAVIANO SHAFFER Oct 16, 2018 14:10
[2018-10-16] MEDS ORDERED: MAGNESIUM SULFATE 2 GM/50 ML 50 ML IVPB ONE (14:30)
--- NOTE | 2018-10-16 14:30 | CONS ---
Assessment/Plan Assessment/Plan Assessment/Plan (Daily) 1. acute hyperkalemia due to BRANDON resolved 2 .acute kidney injury on CKD III due to ATN from sepsis + prerenal azotemia- Improving 3. Sepsis due to UTI and PNA 4. acute UTI 5. H/o partial nephrectomy possibly due to RCC as per family 6. H/o CAD s/p CABG , Cardiomyopathy with EF 50%, Chronic Systolic HF, 7. H/O HTN 8. h/o DM II 9. Paroxysmal atrial fibrillation 10. acute encephalpahty possibly due to uremic and metabolic encephalopathy 11. 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 H/o HTN 13. H/o DM II 14. h/O paroxysmal atrial fibrillation Plan: BUN/Cr improved to 22/0.9- other electrolytes stable on IV abx cancida, Vancomycin and Meropenem, Renally michelle all abx and monitor electrolytes amiodarone stoppe dtoday due to low HR, on Clonidine 0.1 mg pO BID Renal US showed No hydronephrosis. No nephrolithiasis.- 3.1 x 2 x 2.1 centimeter hypoechoic lesion arising from the lower pole of the left kidney. Follow-up to exclude neoplasm. There is echogenic material layering within the dependent portion of the bladder. Follow up to exclude infectious, inflammatory, or neoplastic process.- Atrophic left kidney- Family refused MRI abdomen will follow up Consultation Date/Type/Reason Admit Date/Time Oct 07, 2018 at 03:37 Initial Consult Date 10/07/18 Type of Consult NEPHROLOGY Requesting Provider: JAGJIT MONTES MD Date/Time of Note DATE: 10/16/18 TIME: 14:29 Exam/Review of Systems Exam Vitals Vital Signs Date Temp Pulse Resp B/P (MAP) Pulse Ox O2 O2 Flow FiO2 Time Delivery Rate 10/16/18 97.8 52 18 137/63 100 Nasal 11:35 (87) Cannula 10/16/18 2.0 08:00 Intake and Output 10/15/18 10/15/18 10/16/18 1515:00 23:00 07:00 IntakeIntake Total 250 ml 400 ml 150 ml OutputOutput Total 2 ml 190 ml 450 ml BalanceBalance 248 ml 210 ml -300 ml Exam Constitutional: alert, oriented Respiratory: diminished breath sounds Cardiovascular: irregular rhythm Gastrointestinal: soft, non-tender Genitourinary - Male: other (Incontinent of urine) Musculoskeletal: nl extremities to inspection Extremities: normal pulses Neurological: nl mental status Skin: other (Right foot wound with dressing) Results Result Diagram: 10/16/18 0642 10/16/18 0642 Results 24hrs Laboratory Tests Test 10/15/18 17:23 10/15/18 20:35 10/16/18 01:08 10/16/18 05:44 Bedside Glucose 110 84 80 84 Test 10/16/18 06:42 10/16/18 09:08 10/16/18 12:37 White Blood Count 10.9 H Red Blood Count 3.27 L Hemoglobin 8.7 L Hematocrit 28.4 L Mean Corpuscular 86.9 Volume Mean Corpuscular 26.6 L Hemoglobin Mean Corpuscular 30.6 L Hemoglobin Concent Red Cell 19.2 H Distribution Width Platelet Count 282 Mean Platelet Volume 9.6 Immature 0.500 H Granulocytes % Neutrophils % 71.5 Lymphocytes % 18.3 Monocytes % 7.7 Eosinophils % 1.7 Basophils % 0.3 Nucleated Red Blood 0.0 Cells % Immature 0.050 H Granulocytes # Neutrophils # 7.8 H Lymphocytes # 2.0 Monocytes # 0.8 Eosinophils # 0.2 Basophils # 0.0 Nucleated Red Blood 0.0 Cells # Sodium Level 140 Potassium Level 3.7 Chloride Level 113 H Carbon Dioxide Level 23 Anion Gap 4 L Blood Urea Nitrogen 22 H Creatinine 0.90 Est Glomerular Filtrat Rate mL/min Glucose Level 65 L Calcium Level 8.6 Magnesium Level 1.3 L Bedside Glucose 88 76 Medications Medication Current Medications Allopurinol (Zyloprim) 100 mg BID PO Last administered on 10/16/18at 08:45; Admin Dose 100 MG; Start 10/07/18 at 21:00 Aspirin (Halfprin) 81 mg DAILY PO Last administered on 10/08/18at 08:14; Admin Dose 81 MG; Start 10/08/18 at 09:00; Status Hold Carvedilol (Coreg) 3.125 mg BID PO Last administered on 10/15/18at 20:34; Admin Dose 3.125 MG; Start 10/07/18 at 21:00 Docusate Sodium (Colace) 100 mg TID PO Last administered on 10/16/18at 12:10; A dmin Dose 100 MG; Start 10/07/18 at 21:00 Pantoprazole (Protonix Tab) 40 mg DAILY@06 PO Last administered on 10/16/18at 06:18; Admin Dose 40 MG; Start 10/08/18 at 06:00 Ferrous Sulfate (Ferrous Sulfate (Ec)) 325 mg DAILY PO Last administered on 10/16/18at 08:45; Admin Dose 325 MG; Start 10/08/18 at 09:00 IV Flush (NS 3 ml) 3 ml PER PROTOCOL IV ; Start 10/07/18 at 12:30 Ondansetron HCl (Zofran Inj) 4 mg Q6H PRN IV NAUSEA/VOMITING; Start 10/07/18 at 12:30 Acetaminophen (Tylenol Tab) 650 mg Q6H PRN PO .PAIN 1-3 OR TEMP Last administered on 10/15/18at 20:32; Admin Dose 650 MG; Start 10/07/18 at 12:30 Acetaminophen/ Hydrocodone Bitart ([place] (5/325)) 1 tab Q6H PRN PO .PAIN 4-6 Last administered on 10/15/18at 15:39; Admin Dose 1 TAB; Start 10/07/18 at 12:30 Clonidine (Catapres) 0.1 mg BID PO Last administered on 10/16/18at 08:46; Admin Dose 0.1 MG; Start 10/07/18 at 22:00; Status Hold Diagnostic Test (Pha) (Accu-Chek) 1 ea 02 XX Last administered on 10/13/18at 02:00; Admin Dose 1 EA; Start 10/08/18 at 02:00 Miscellaneous Information 1 ea NOTE XX ; Start 10/07/18 at 21:00 Glucose (Glutose) 15 gm Q15M PRN PO DECREASED GLUCOSE; Start 10/07/18 at 21:00 Glucose (Glutose) 22.5 gm Q15M PRN PO DECREASED GLUCOSE; Start 10/07/18 at 21:00 Dextrose (D50w Syringe) 25 ml Q15M PRN IV DECREASED GLUCOSE; Start 10/07/18 at 21:00 Dextrose (D50w Syringe) 50 ml Q15M PRN IV DECREASED GLUCOSE; Start 10/07/18 at 21:00 Glucagon (Glucagen) 1 mg Q15M PRN IM DECREASED GLUCOSE; Start 10/07/18 at 21:00 Glucose (Glutose) 15 gm Q15M PRN BUCCAL DECREASED GLUCOSE; Start 10/07/18 at 21:00 Meropenem/Sodium Chloride 50 ml @ 100 mls/hr Q12 IVPB Last administered on 10/16/18at 08:46; Admin Dose 100 MLS/HR; Start 10/09/18 at 12:00 Collagenase (Santyl) 1 applic DAILY TOP Last administered on 10/16/18 08:46; Admin Dose 1 APPLIC; Start 10/09/18 at 19:00 Sodium Hypochlorite (Dakins Diluted ()) 1 applic DAILY TP Last administered on 10/16/18 08:47; Admin Dose 1 APPLIC; Start 10/11/18 at 09:00 Caspofungin 50 mg/ Sodium Chloride 250 ml @ 250 mls/hr Q24H IVPB Last administered on 10/16/18 12:09; Admin Dose 250 MLS/HR; Start 10/12/18 at 11:00 Quetiapine Fumarate (Seroquel) 25 mg BID@0900,1200 PO Last administered on 10/16/18at 12:10; Admin Dose 25 MG; Start 10/11/18 at 12:00 Quetiapine Fumarate (Seroquel) 50 mg HS PO Last administered on 10/15/18at 20:32; Admin Dose 50 MG; Start 10/11/18 at 21:00 Amiodarone HCl (Cordarone) 100 mg DAILY PO Last administered on 10/15/18at 13:01; Admin Dose 100 MG; Start 10/13/18 at 09:00 Vancomycin HCl (Vanco Iv Per Pharmacy) VANCOMYCIN PER PHARMACY PER PROTOCOL XX ; Start 10/13/18 at 15:00 Insulin Glargine (Lantus) 12 units DAILY@1200 SC Last administered on 10/15/18at 13:11; Admin Dose 12 UNITS; Start 10/13/18 at 15:30 Vancomycin HCl 250 ml @ 125 mls/hr Q36H IVPB Last administered on 10/15/18at 04:23; Admin Dose 125 MLS/HR; Start 10/15/18 at 05:00 Morphine Sulfate (morphine) 2 mg Q4H PRN IV SEVERE PAIN LEVEL 7-10 Last administered on 10/16/18at 09:04; Admin Dose 2 MG; Start 10/15/18 at 21:00 Insulin Aspart (Novolog Insulin Pen) (Adult SC Insulin - Mild Algorithm)... AC DINNER BEDTIME SC ; Start 10/16/18 at 17:25 Miscellaneous Information (*Rx Drug Level Order Reminder*) VANCO TR AT 0400 0400 ONCE XX ; Start 10/18/18 at 04:00; Stop 10/18/18 at 04:01 Magnesium Sulfate 50 ml @ 25 mls/hr ONCE ONCE IVPB ; Start 10/16/18 at 14:30; Stop 10/16/18 at 16:29 Potassium Chloride/Dextrose/ Sod Cl 1,000 ml @ 60 mls/hr [id number] IV ; Start 10/16/18 at 14:30 EVA TREJO MD Oct 16, 2018 14:30
[2018-10-16 15:33] VITALS: BP 116/61; PULSE 53; RESP 18
[2018-10-16] MEDS: D5W-0.45 NACL + KCL 20 MEQ 1,000 ML IV SCH (15:50)
--- NOTE | 2018-10-16 15:57 | CONS ---
Assessment/Plan Assessment/Plan Hospital Course (Demo Recall) Patient is sleeping looks comfortable afebrile Antimicrobials: Vancomycin, Cancidas, Merrem Microbiology: Blood cultures negative, urine culture + MDR Kleb, repeat cx + yeast Chest x-ray on admission revealed no evidence of CHF or pneumonia. Renal ultrasound revealed no hydronephrosis and no nephrolithiasis. 3.1 x 2 x 2.1 cm hypoechoic lesion left pole of the kidney questionable neoplasm Physical examination: Well-developed chronically ill-appearing wasted elderly woman who is in no distress. Head atraumatic normocephalic neck is supple chest rise symmetrical breath sounds diminished bases. Heart: S1-S2. Abdomen soft bowel sounds present. Extremities with dependent bilateral lower extremities edema, R foot dsg Assessment: 1. S/p sepsis, present on admission 2. Gram-negative melvi/yeast UTI 3. Acute on chronic anemia 4. Coronary artery disease with a history of CABG 5. Echo dense structure seen by tricuspid valve, right atrium and IVC-thrombus, vegetation versus tumor=== completed 6 weeks IV antibiotics> 6. History of renal cell carcinoma status post nephrectomy 7. Diabetes 8. R heel osteomyelitis status post debridement Plan: Remains unchanged, continue IV antibiotics for 6 weeks for osteomyelitis of the heel, follow intraoperative cultures wound care per podiatry Consultation Date/Type/Reason Admit Date/Time Oct 07, 2018 at 03:37 Initial Consult Date 10/07/18 Type of Consult id Requesting Provider: JAGJIT MONTES MD Date/Time of Note DATE: 10/16/18 TIME: 15:55 Exam/Review of Systems Exam Vitals Vital Signs Date Temp Pulse Resp B/P (MAP) Pulse Ox O2 O2 Flow FiO2 Time Delivery Rate 10/16/18 97.4 53 18 116/61 100 Nasal 15:33 (79) Cannula 10/16/18 2.0 08:00 Intake and Output 10/15/18 10/15/18 10/16/18 1515:00 23:00 07:00 IntakeIntake Total 250 ml 400 ml 150 ml OutputOutput Total 2 ml 190 ml 450 ml BalanceBalance 248 ml 210 ml -300 ml Results Result Diagram: 10/16/18 0642 10/16/18 0642 Results 24hrs Laboratory Tests Test 10/15/18 17:23 10/15/18 20:35 10/16/18 01:08 10/16/18 05:44 Bedside Glucose 110 84 80 84 Test 10/16/18 06:42 10/16/18 09:08 10/16/18 12:37 White Blood Count 10.9 H Red Blood Count 3.27 L Hemoglobin 8.7 L Hematocrit 28.4 L Mean Corpuscular 86.9 Volume Mean Corpuscular 26.6 L Hemoglobin Mean Corpuscular 30.6 L Hemoglobin Concent Red Cell 19.2 H Distribution Width Platelet Count 282 Mean Platelet Volume 9.6 Immature 0.500 H Granulocytes % Neutrophils % 71.5 Lymphocytes % 18.3 Monocytes % 7.7 Eosinophils % 1.7 Basophils % 0.3 Nucleated Red Blood 0.0 Cells % Immature 0.050 H Granulocytes # Neutrophils # 7.8 H Lymphocytes # 2.0 Monocytes # 0.8 Eosinophils # 0.2 Basophils # 0.0 Nucleated Red Blood 0.0 Cells # Sodium Level 140 Potassium Level 3.7 Chloride Level 113 H Carbon Dioxide Level 23 Anion Gap 4 L Blood Urea Nitrogen 22 H Creatinine 0.90 Est Glomerular Filtrat Rate mL/min Glucose Level 65 L Calcium Level 8.6 Magnesium Level 1.3 L Bedside Glucose 88 76 Medications Medication Current Medications Allopurinol (Zyloprim) 100 mg BID PO Last administered on 10/16/18 08:45; Admin Dose 100 MG; Start 10/07/18 at 21:00 Aspirin (Halfprin) 81 mg DAILY PO Last administered on 10/08/18 08:14; Admin Dose 81 MG; Start 10/08/18 at 09:00; Status Hold Carvedilol (Coreg) 3.125 mg BID PO Last administered on 10/15/18 20:34; Admin Dose 3.125 MG; Start 10/07/18 at 21:00 Docusate Sodium (Colace) 100 mg TID PO Last administered on 10/16/18 12:10; Admin Dose 100 MG; Start 10/07/18 at 21:00 Pantoprazole (Protonix Tab) 40 mg DAILY@06 PO Last administered on 10/16/18 06:18; Admin Dose 40 MG; Start 10/08/18 at 06:00 Ferrous Sulfate (Ferrous Sulfate (Ec)) 325 mg DAILY PO Last administered on 10/16/18 08:45; Admin Dose 325 MG; Start 10/08/18 at 09:00 IV Flush (NS 3 ml) 3 ml PER PROTOCOL IV ; Start 10/07/18 at 12:30 Ondansetron HCl (Zofran Inj) 4 mg Q6H PRN IV NAUSEA/VOMITING; Start 10/07/18 at 12:30 Acetaminophen (Tylenol Tab) 650 mg Q6H PRN PO .PAIN 1-3 OR TEMP Last administered on 10/15/18at 20:32; Admin Dose 650 MG; Start 10/07/18 at 12:30 Acetaminophen/ Hydrocodone Bitart ([place] (5/325)) 1 tab Q6H PRN PO .PAIN 4-6 Last administered on 10/15/18 15:39; Admin Dose 1 TAB; Start 10/07/18 at 12:30 Clonidine (Catapres) 0.1 mg BID PO Last administered on 10/16/18 08:46; Admin Dose 0.1 MG; Start 10/07/18 at 22:00; Status Hold Diagnostic Test (Pha) (Accu-Chek) 1 ea 02 XX Last administered on 10/13/18at 02:00; Admin Dose 1 EA; Start 10/08/18 at 02:00 Miscellaneous Information 1 ea NOTE XX ; Start 10/07/18 at 21:00 Glucose (Glutose) 15 gm Q15M PRN PO DECREASED GLUCOSE; Start 10/07/18 at 21:00 Glucose (Glutose) 22.5 gm Q15M PRN PO DECREASED GLUCOSE; Start 10/07/18 at 21:00 Dextrose (D50w Syringe) 25 ml Q15M PRN IV DECREASED GLUCOSE; Start 10/07/18 at 21:00 Dextrose (D50w Syringe) 50 ml Q15M PRN IV DECREASED GLUCOSE; Start 10/07/18 at 21:00 Glucagon (Glucagen) 1 mg Q15M PRN IM DECREASED GLUCOSE; Start 10/07/18 at 21:00 Glucose (Glutose) 15 gm Q15M PRN BUCCAL DECREASED GLUCOSE; Start 10/07/18 at 21:00 Meropenem/Sodium Chloride 50 ml @ 100 mls/hr Q12 IVPB Last administered on 10/16/18at 08:46; Admin Dose 100 MLS/HR; Start 10/09/18 at 12:00 Collagenase (Santyl) 1 applic DAILY TOP Last administered on 10/16/18at 08:46; Admin Dose 1 APPLIC; Start 10/09/18 at 19:00 Sodium Hypochlorite (Dakins Diluted ()) 1 applic DAILY TP Last administered on 10/16/18at 08:47; Admin Dose 1 APPLIC; Start 10/11/18 at 09:00 Caspofungin 50 mg/ Sodium Chloride 250 ml @ 250 mls/hr Q24H IVPB Last administered on 10/16/18 12:09; Admin Dose 250 MLS/HR; Start 10/12/18 at 11:00 Quetiapine Fumarate (Seroquel) 25 mg BID@0900,1200 PO Last administered on 10/16/18 12:10; Admin Dose 25 MG; Start 10/11/18 at 12:00 Quetiapine Fumarate (Seroquel) 50 mg HS PO Last administered on 10/15/18at 20:32; Admin Dose 50 MG; Start 10/11/18 at 21:00 Amiodarone HCl (Cordarone) 100 mg DAILY PO Last administered on 10/15/18at 13:01; Admin Dose 100 MG; Start 10/13/18 at 09:00 Vancomycin HCl (Vanco Iv Per Pharmacy) VANCOMYCIN PER PHARMACY PER PROTOCOL XX ; Start 10/13/18 at 15:00 Insulin Glargine (Lantus) 12 units DAILY@1200 SC Last administered on 10/15/18at 13:11; Admin Dose 12 UNITS; Start 10/13/18 at 15:30 Vancomycin HCl 250 ml @ 125 mls/hr Q36H IVPB Last administered on 10/15/18 04:23; Admin Dose 125 MLS/HR; Start 10/15/18 at 05:00 Morphine Sulfate (morphine) 2 mg Q4H PRN IV SEVERE PAIN LEVEL 7-10 Last administered on 10/16/18 09:04; Admin Dose 2 MG; Start 10/15/18 at 21:00 Insulin Aspart (Novolog Insulin Pen) (Adult SC Insulin - Mild Algorithm)... AC DINNER BEDTIME SC ; Start 10/16/18 at 17:25 Miscellaneous Information (*Rx Drug Level Order Reminder*) VANCO TR AT 0400 0400 ONCE XX ; Start 10/18/18 at 04:00; Stop 10/18/18 at 04:01 Magnesium Sulfate 50 ml @ 25 mls/hr ONCE ONCE IVPB Last administered on 10/16/18at 15:50; Admin Dose 25 MLS/HR; Start 10/16/18 at 14:30; Stop 10/16/18 at 16:29 Potassium Chloride/Dextrose/ Sod Cl 1,000 ml @ 60 mls/hr [id number] IV Last administered on 10/16/18at 15:50; Admin Dose 60 MLS/HR; Start 10/16/18 at 14:30 BARBARA ORDAZ [employer] O[employer] Oct 16, 2018 15:57
--- NOTE | 2018-10-16 16:50 | CONS ---
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 Echo dense structure seen by tricuspid valve, right atrium and IVC-thrombus, vegetation versus tumor CAD with history of CABG History of renal carcinoma status post nephrectomy approximately 8 years ago History of hypertension Diabetes Paroxysmal atrial fibrillation, intolerant to anticoagulation Patient presents with acute kidney injury, hyperkalemia and encephalopathy Renal function continues to improve Hold all nephro toxic medications Given bradycardia, would DC Coreg and amiodarone Magnesium supplementation has already been ordered Consultation Date/Type/Reason Admit Date/Time Oct 07, 2018 at 03:37 Initial Consult Date 10/07/18 Type of Consult Cardiology Requesting Provider: JAGJIT MONTES MD Date/Time of Note DATE: 10/16/18 TIME: 16:49 24 HR Interval Summary Free Text/Dictation Seen and examined Exam/Review of Systems Vital Signs Vitals Vital Signs Date Temp Pulse Resp B/P (MAP) Pulse Ox O2 O2 Flow FiO2 Time Delivery Rate 10/16/18 97.4 53 18 116/61 100 Nasal 15:33 (79) Cannula 10/16/18 2.0 08:00 Intake and Output 10/15/18 10/15/18 10/16/18 1515:00 23:00 07:00 IntakeIntake Total 250 ml 400 ml 150 ml OutputOutput Total 2 ml 190 ml 450 ml BalanceBalance 248 ml 210 ml -300 ml Exam Exam Sleeping, looks me when her name is called, not following commands Head: normocephalic Respiratory: other (Coarse breath sounds bilaterally, no wheezing) Cardiovascular: regular rate and rhythm (S1-S2 heard) Gastrointestinal: soft, non-tender, bowel sounds Extremities: edema Labs Result Diagram: 10/16/18 0642 10/16/18 0642 Results 24hrs Laboratory Tests Test 10/15/18 17:23 10/15/18 20:35 10/16/18 01:08 10/16/18 05:44 Bedside Glucose 110 84 80 84 Test 10/16/18 06:42 10/16/18 09:08 10/16/18 12:37 White Blood Count 10.9 H Red Blood Count 3.27 L Hemoglobin 8.7 L Hematocrit 28.4 L Mean Corpuscular 86.9 Volume Mean Corpuscular 26.6 L Hemoglobin Mean Corpuscular 30.6 L Hemoglobin Concent Red Cell 19.2 H Distribution Width Platelet Count 282 Mean Platelet Volume 9.6 Immature 0.500 H Granulocytes % Neutrophils % 71.5 Lymphocytes % 18.3 Monocytes % 7.7 Eosinophils % 1.7 Basophils % 0.3 Nucleated Red Blood 0.0 Cells % Immature 0.050 H Granulocytes # Neutrophils # 7.8 H Lymphocytes # 2.0 Monocytes # 0.8 Eosinophils # 0.2 Basophils # 0.0 Nucleated Red Blood 0.0 Cells # Sodium Level 140 Potassium Level 3.7 Chloride Level 113 H Carbon Dioxide Level 23 Anion Gap 4 L Blood Urea Nitrogen 22 H Creatinine 0.90 Est Glomerular Filtrat Rate mL/min Glucose Level 65 L Calcium Level 8.6 Magnesium Level 1.3 L Bedside Glucose 88 76 Medications Medications Current Medications Allopurinol (Zyloprim) 100 mg BID PO Last administered on 10/16/18 08:45; Admin Dose 100 MG; Start 10/07/18 at 21:00 Aspirin (Halfprin) 81 mg DAILY PO Last administered on 10/08/18 08:14; Admin Dose 81 MG; Start 10/08/18 at 09:00; Status Hold Carvedilol (Coreg) 3.125 mg BID PO Last administered on 10/15/18at 20:34; Admin Dose 3.125 MG; Start 10/07/18 at 21:00 Docusate Sodium (Colace) 100 mg TID PO Last administered on 10/16/18 12:10; Admin Dose 100 MG; Start 10/07/18 at 21:00 Pantoprazole (Protonix Tab) 40 mg DAILY@06 PO Last administered on 10/16/18 06:18; Admin Dose 40 MG; Start 10/08/18 at 06:00 Ferrous Sulfate (Ferrous Sulfate (Ec)) 325 mg DAILY PO Last administered on 10/16/18at 08:45; Admin Dose 325 MG; Start 10/08/18 at 09:00 IV Flush (NS 3 ml) 3 ml PER PROTOCOL IV ; Start 10/07/18 at 12:30 Ondansetron HCl (Zofran Inj) 4 mg Q6H PRN IV NAUSEA/VOMITING; Start 10/07/18 at 12:30 Acetaminophen (Tylenol Tab) 650 mg Q6H PRN PO .PAIN 1-3 OR TEMP Last administered on 10/15/18 20:32; Admin Dose 650 MG; Start 10/07/18 at 12:30 Acetaminophen/ Hydrocodone Bitart ([place] (5/325)) 1 tab Q6H PRN PO .PAIN 4-6 Last administered on 10/15/18 15:39; Admin Dose 1 TAB; Start 10/07/18 at 12:30 Clonidine (Catapres) 0.1 mg BID PO Last administered on 10/16/18 08:46; Admin Dose 0.1 MG; Start 10/07/18 at 22:00; Status Hold Diagnostic Test (Pha) (Accu-Chek) 1 ea 02 XX Last administered on 10/13/18at 02:00; Admin Dose 1 EA; Start 10/08/18 at 02:00 Miscellaneous Information 1 ea NOTE XX ; Start 10/07/18 at 21:00 Glucose (Glutose) 15 gm Q15M PRN PO DECREASED GLUCOSE; Start 10/07/18 at 21:00 Glucose (Glutose) 22.5 gm Q15M PRN PO DECREASED GLUCOSE; Start 10/07/18 at 21:00 Dextrose (D50w Syringe) 25 ml Q15M PRN IV DECREASED GLUCOSE; Start 10/07/18 at 21:00 Dextrose (D50w Syringe) 50 ml Q15M PRN IV DECREASED GLUCOSE; Start 10/07/18 at 21:00 Glucagon (Glucagen) 1 mg Q15M PRN IM DECREASED GLUCOSE; Start 10/07/18 at 21:00 Glucose (Glutose) 15 gm Q15M PRN BUCCAL DECREASED GLUCOSE; Start 10/07/18 at 21:00 Meropenem/Sodium Chloride 50 ml @ 100 mls/hr Q12 IVPB Last administered on 10/16/18 08:46; Admin Dose 100 MLS/HR; Start 10/09/18 at 12:00 Collagenase (Santyl) 1 applic DAILY TOP Last administered on 10/16/18 08:46; Admin Dose 1 APPLIC; Start 10/09/18 at 19:00 Sodium Hypochlorite (Dakins Diluted ()) 1 applic DAILY TP Last administered on 10/16/18 08:47; Admin Dose 1 APPLIC; Start 10/11/18 at 09:00 Caspofungin 50 mg/ Sodium Chloride 250 ml @ 250 mls/hr Q24H IVPB Last administered on 10/16/18at 12:09; Admin Dose 250 MLS/HR; Start 10/12/18 at 11:00 Quetiapine Fumarate (Seroquel) 25 mg BID@0900,1200 PO Last administered on 10/16/18at 12:10; Admin Dose 25 MG; Start 10/11/18 at 12:00 Quetiapine Fumarate (Seroquel) 50 mg HS PO Last administered on 10/15/18 20:32; Admin Dose 50 MG; Start 10/11/18 at 21:00 Amiodarone HCl (Cordarone) 100 mg DAILY PO Last administered on 10/15/18 13:01; Admin Dose 100 MG; Start 10/13/18 at 09:00 Vancomycin HCl (Vanco Iv Per Pharmacy) VANCOMYCIN PER PHARMACY PER PROTOCOL XX ; Start 10/13/18 at 15:00 Insulin Glargine (Lantus) 12 units DAILY@1200 SC Last administered on 10/15/18at 13:11; Admin Dose 12 UNITS; Start 10/13/18 at 15:30 Vancomycin HCl 250 ml @ 125 mls/hr Q36H IVPB Last administered on 10/15/18 04:23; Admin Dose 125 MLS/HR; Start 10/15/18 at 05:00 Morphine Sulfate (morphine) 2 mg Q4H PRN IV SEVERE PAIN LEVEL 7-10 Last administered on 10/16/18 09:04; Admin Dose 2 MG; Start 10/15/18 at 21:00 Insulin Aspart (Novolog Insulin Pen) (Adult SC Insulin - Mild Algorithm)... AC DINNER BEDTIME SC ; Start 10/16/18 at 17:25 Miscellaneous Information (*Rx Drug Level Order Reminder*) VANCO TR AT 0400 0400 ONCE XX ; Start 10/18/18 at 04:00; Stop 10/18/18 at 04:01 Potassium Chloride/Dextrose/ Sod Cl 1,000 ml @ 60 mls/hr [id number] IV Last administered on 10/16/18at 15:50; Admin Dose 60 MLS/HR; Start 10/16/18 at 14:30 Alex Chávez 18, 2019 16:50
[2018-10-16] MEDS: VANCOMYCIN 1 GM 250 ML IVPB SCH (17:12)
[2018-10-16] MEDS: INSULIN ASPART [NOVOLOG] 3 ML PEN SC SCH ×2 (17:14→22:00)
--- NOTE | 2018-10-16 18:02 | CONS ---
Assessment/Plan Assessment/Plan Assessment/Plan (Daily) 82 yo female with hl/o anemia No signs GI bleeding per RN. She had been agitated yesterday which was not baseline for her. She was started on seroquel. Lethargic. When I try to examine her she starts to scream. 1. Urinary tract infection. 2. Sepsis. 3. Status post coronary artery bypass graft. 4. Peripheral vascular disease. 5. Atrial fibrillation. 6. Status post surgery for renal cell carcinoma 8 years ago. 7. Diabetes. 8. Hypertension. 9. Severe anemia. -IV iron 10. Transaminitis -elevated ALT/AST -improving -CBD 7mm, t bili wnl. 11. Elevated CEA: 24.1 12. Chronic gastritis 13. S/P EGD 10/13 14. Fatty liver with possible hepatocellular disease noted on US PLAN: [facility] and for active GI bleeding She will need colonoscopy, pt and son refused NGT to clear pt bowels, poor prep with just tap water enemas Continue present care may order the Gastrografin study if patient and the family agrees Consultation Date/Type/Reason Admit Date/Time Oct 07, 2018 at 03:37 Initial Consult Date 10/07/18 Requesting Provider: JAGJIT MONTES MD Date/Time of Note DATE: 10/16/18 TIME: 18:02 24 HR Interval Summary Constitutional: no complaints, improved Exam/Review of Systems Exam Vitals Vital Signs Date Temp Pulse Resp B/P (MAP) Pulse Ox O2 O2 Flow FiO2 Time Delivery Rate 10/16/18 97.4 53 18 116/61 100 Nasal 15:33 (79) Cannula 10/16/18 2.0 08:00 Intake and Output 10/15/18 10/15/18 10/16/18 1515:00 23:00 07:00 IntakeIntake Total 250 ml 400 ml 150 ml OutputOutput Total 2 ml 190 ml 450 ml BalanceBalance 248 ml 210 ml -300 ml Constitutional: alert, oriented, well developed Psych: no complaints, nl mood/affect Head: normocephalic, atraumatic Eyes: nl conjunctiva, EOMI, nl lids, nl sclera, PERRL ENMT: nl external ears & nose, nl lips & teeth, nl nasal mucosa & septum Neck: supple, non-tender Respiratory: clear to auscultation, normal air movement Cardiovascular: regular rate and rhythm, nl pulses Gastrointestinal: soft, nl liver, spleen, non-tender Musculoskeletal: nl extremities to inspection, nl gait and stance Extremities: normal pulses Neurological: [employer] II-XII intact, nl mental status, nl speech, nl strength Skin: nl turgor; No rash or lesions Lymph: nl lymph nodes Results Result Diagram: 10/16/18 0642 10/16/18 0642 Results 24hrs Laboratory Tests Test 10/15/18 20:35 10/16/18 01:08 10/16/18 05:44 10/16/18 06:42 Bedside Glucose 84 80 84 White Blood Count 10.9 H Red Blood Count 3.27 L Hemoglobin 8.7 L Hematocrit 28.4 L Mean Corpuscular 86.9 Volume Mean Corpuscular 26.6 L Hemoglobin Mean Corpuscular 30.6 L Hemoglobin Concent Red Cell 19.2 H Distribution Width Platelet Count 282 Mean Platelet Volume 9.6 Immature 0.500 H Granulocytes % Neutrophils % 71.5 Lymphocytes % 18.3 Monocytes % 7.7 Eosinophils % 1.7 Basophils % 0.3 Nucleated Red Blood 0.0 Cells % Immature 0.050 H Granulocytes # Neutrophils # 7.8 H Lymphocytes # 2.0 Monocytes # 0.8 Eosinophils # 0.2 Basophils # 0.0 Nucleated Red Blood 0.0 Cells # Sodium Level 140 Potassium Level 3.7 Chloride Level 113 H Carbon Dioxide Level 23 Anion Gap 4 L Blood Urea Nitrogen 22 H Creatinine 0.90 Est Glomerular Filtrat Rate mL/min Glucose Level 65 L Calcium Level 8.6 Magnesium Level 1.3 L Test 10/16/18 09:08 10/16/18 12:37 10/16/18 17:14 Bedside Glucose 88 76 108 Medications Medication Current Medications Allopurinol (Zyloprim) 100 mg BID PO Last administered on 10/16/18at 08:45; Ad min Dose 100 MG; Start 10/07/18 at 21:00 Aspirin (Halfprin) 81 mg DAILY PO Last administered on 10/08/18at 08:14; Admin Dose 81 MG; Start 10/08/18 at 09:00; Status Hold Docusate Sodium (Colace) 100 mg TID PO Last administered on 10/16/18at 12:10; Admin Dose 100 MG; Start 10/07/18 at 21:00 Pantoprazole (Protonix Tab) 40 mg DAILY@06 PO Last administered on 10/16/18at 06:18; Admin Dose 40 MG; Start 10/08/18 at 06:00 Ferrous Sulfate (Ferrous Sulfate (Ec)) 325 mg DAILY PO Last administered on 10/16/18at 08:45; Admin Dose 325 MG; Start 10/08/18 at 09:00 IV Flush (NS 3 ml) 3 ml PER PROTOCOL IV ; Start 10/07/18 at 12:30 Ondansetron HCl (Zofran Inj) 4 mg Q6H PRN IV NAUSEA/VOMITING; Start 10/07/18 at 12:30 Acetaminophen (Tylenol Tab) 650 mg Q6H PRN PO .PAIN 1-3 OR TEMP Last administered on 10/15/18at 20:32; Admin Dose 650 MG; Start 10/07/18 at 12:30 Acetaminophen/ Hydrocodone Bitart ([place] (5/325)) 1 tab Q6H PRN PO .PAIN 4-6 Last administered on 10/15/18at 15:39; Admin Dose 1 TAB; Start 10/07/18 at 12:30 Clonidine (Catapres) 0.1 mg BID PO Last administered on 10/16/18at 08:46; Admin Dose 0.1 MG; Start 10/07/18 at 22:00; Status Hold Diagnostic Test (Pha) (Accu-Chek) 1 ea 02 XX Last administered on 10/13/18at 02:00; Admin Dose 1 EA; Start 10/08/18 at 02:00 Miscellaneous Information 1 ea NOTE XX ; Start 10/07/18 at 21:00 Glucose (Glutose) 15 gm Q15M PRN PO DECREASED GLUCOSE; Start 10/07/18 at 21:00 Glucose (Glutose) 22.5 gm Q15M PRN PO DECREASED GLUCOSE; Start 10/07/18 at 21:00 Dextrose (D50w Syringe) 25 ml Q15M PRN IV DECREASED GLUCOSE; Start 10/07/18 at 21:00 Dextrose (D50w Syringe) 50 ml Q15M PRN IV DECREASED GLUCOSE; Start 10/07/18 at 21:00 Glucagon (Glucagen) 1 mg Q15M PRN IM DECREASED GLUCOSE; Start 10/07/18 at 21:00 Glucose (Glutose) 15 gm Q15M PRN BUCCAL DECREASED GLUCOSE; Start 10/07/18 at 21:00 Meropenem/Sodium Chloride 50 ml @ 100 mls/hr Q12 IVPB Last administered on 10/16/18 08:46; Admin Dose 100 MLS/HR; Start 10/09/18 at 12:00 Collagenase (Santyl) 1 applic DAILY TOP Last administered on 10/16/18 08:46; Admin Dose 1 APPLIC; Start 10/09/18 at 19:00 Sodium Hypochlorite (Dakins Diluted ()) 1 applic DAILY TP Last administered on 10/16/18 08:47; Admin Dose 1 APPLIC; Start 10/11/18 at 09:00 Caspofungin 50 mg/ Sodium Chloride 250 ml @ 250 mls/hr Q24H IVPB Last administered on 10/16/18 12:09; Admin Dose 250 MLS/HR; Start 10/12/18 at 11:00 Quetiapine Fumarate (Seroquel) 25 mg BID@0900,1200 PO Last administered on 10/16/18at 12:10; Admin Dose 25 MG; Start 10/11/18 at 12:00 Quetiapine Fumarate (Seroquel) 50 mg HS PO Last administered on 10/15/18at 20:32; Admin Dose 50 MG; Start 10/11/18 at 21:00 Vancomycin HCl (Vanco Iv Per Pharmacy) VANCOMYCIN PER PHARMACY PER PROTOCOL XX ; Start 10/13/18 at 15:00 Insulin Glargine (Lantus) 12 units DAILY@1200 SC Last administered on 10/15/18 13:11; Admin Dose 12 UNITS; Start 10/13/18 at 15:30 Vancomycin HCl 250 ml @ 125 mls/hr Q36H IVPB Last administered on 10/16/18 17:12; Admin Dose 125 MLS/HR; Start 10/15/18 at 05:00 Morphine Sulfate (morphine) 2 mg Q4H PRN IV SEVERE PAIN LEVEL 7-10 Last administered on 10/16/18at 09:04; Admin Dose 2 MG; Start 10/15/18 at 21:00 Insulin Aspart (Novolog Insulin Pen) (Adult SC Insulin - Mild Algorithm)... AC DINNER BEDTIME SC ; Start 10/16/18 at 17:25 Miscellaneous Information (*Rx Drug Level Order Reminder*) VANCO TR 7/ 20 AT 0400 0400 ONCE XX ; Start 10/18/18 at 04:00; Stop 10/18/18 at 04:01 Potassium Chloride/Dextrose/ Sod Cl 1,000 ml @ 60 mls/hr [id number] IV Last administered on 10/16/18at 15:50; Admin Dose 60 MLS/HR; Start 10/16/18 at 14:30 VELIA CASTRO MD Oct 16, 2018 18:02
[2018-10-16] MEDS: ACETAMINOPHEN 325 MG TAB PO PRN (18:56)
[2018-10-16 19:14] VITALS: BP 120/58; PULSE 64; RESP 18
[2018-10-16] MEDS: HYDROCODONE/APAP (5/325) TAB PO PRN (21:14)
[2018-10-16 23:52] VITALS: BP 110/44; PULSE 60; RESP 18
[2018-10-17] MEDS: ACCU-CHEK XX SCH (02:00)
[2018-10-17 04:01] VITALS: BP 100/39; PULSE 55; RESP 20
[2018-10-17] MEDS: PANTOPRAZOLE (EC) 40 MG TAB PO SCH (06:10)
[2018-10-17] MEDS: D5W-0.45 NACL + KCL 20 MEQ 1,000 ML IV SCH ×2 (07:10→21:38)
[2018-10-17 07:32] VITALS: BP 127/42; PULSE 56; RESP 18
--- NOTE | 2018-10-17 08:14 | CONS ---
Assessment/Plan Assessment/Plan Assessment/Plan (Daily) 1. acute hyperkalemia due to BRANDON resolved 2 .acute kidney injury on CKD III due to ATN from sepsis + prerenal azotemia- Improving 3. Sepsis due to UTI and PNA 4. acute UTI 5. H/o partial nephrectomy possibly due to RCC as per family 6. H/o CAD s/p CABG , Cardiomyopathy with EF 50%, Chronic Systolic HF, 7. H/O HTN 8. h/o DM II 9. Paroxysmal atrial fibrillation 10. acute encephalpahty possibly due to uremic and metabolic encephalopathy 11. 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 H/o HTN 13. H/o DM II 14. h/O paroxysmal atrial fibrillation Plan: BUN/Cr improved to 23/0.9- other electrolytes stable on IV abx cancida, Vancomycin and Meropenem, Renally michelle all abx and monitor electrolytes Renal US showed No hydronephrosis. No nephrolithiasis.- 3.1 x 2 x 2.1 centimeter hypoechoic lesion arising from the lower pole of the left kidney. Follow-up to exclude neoplasm. There is echogenic material layering within the dependent portion of the bladder. Follow up to exclude infectious, inflammatory, or neoplastic process.- Atrophic left kidney- Family refused MRI abdomen will follow up Consultation Date/Type/Reason Admit Date/Time Oct 07, 2018 at 03:37 Initial Consult Date 10/07/18 Type of Consult NEPHROLOGY Requesting Provider: JGAJIT MONTES MD Date/Time of Note DATE: 10/17/18 TIME: 08:14 Exam/Review of Systems Exam Vitals Vital Signs Date Temp Pulse Resp B/P (MAP) Pulse Ox O2 O2 Flow FiO2 Time Delivery Rate 10/17/18 97.6 56 18 127/42 99 Nasal 07:32 (70) Cannula 10/17/18 2.0 01:31 Intake and Output 10/16/18 10/16/18 10/17/18 1515:00 23:00 07:00 IntakeIntake Total 120 ml 810 ml 360 ml OutputOutput Total 250 ml 750 ml BalanceBalance 120 ml 560 ml -390 ml Results Result Diagram: 10/17/18 0533 10/17/18 0533 Results 24hrs Laboratory Tests Test 10/16/18 09:08 10/16/18 12:37 10/16/18 17:14 10/16/18 21:21 Bedside Glucose 88 76 108 215 Test 10/17/18 02:05 10/17/18 05:33 Bedside Glucose 212 White Blood Count 9.8 Red Blood Count 3.18 L Hemoglobin 8.5 L Hematocrit 28.2 L Mean Corpuscular 88.7 Volume Mean Corpuscular 26.7 L Hemoglobin Mean Corpuscular 30.1 L Hemoglobin Concent Red Cell 18.9 H Distribution Width Platelet Count 266 Mean Platelet Volume 9.8 Immature 0.600 H Granulocytes % Neutrophils % 72.1 Lymphocytes % 17.8 Monocytes % 7.9 Eosinophils % 1.4 Basophils % 0.2 Nucleated Red Blood 0.0 Cells % Immature 0.060 H Granulocytes # Neutrophils # 7.0 Lymphocytes # 1.7 Monocytes # 0.8 Eosinophils # 0.1 Basophils # 0.0 Nucleated Red Blood 0.0 Cells # Sodium Level 140 Potassium Level 4.0 Chloride Level 113 H Carbon Dioxide Level 24 Anion Gap 3 L Blood Urea Nitrogen 23 H Creatinine 0.92 Est Glomerular Filtrat Rate mL/min Glucose Level 194 # Calcium Level 8.4 Magnesium Level 1.7 Medications Medication Current Medications Allopurinol (Zyloprim) 100 mg BID PO Last administered on 10/16/18at 21:01; Admin Dose 100 MG; Start 10/07/18 at 21:00 Aspirin (Halfprin) 81 mg DAILY PO Last administered on 10/08/18at 08:14; Admin Dose 81 MG; Start 10/08/18 at 09:00; Status Hold Docusate Sodium (Colace) 100 mg TID PO Last administered on 10/16/18at 21:01; Admin Dose 100 MG; Start 10/07/18 at 21:00 Pantoprazole (Protonix Tab) 40 mg DAILY@06 PO Last administered on 10/17/18at 06:10; Admin Dose 40 MG; Start 10/08/18 at 06:00 Ferrous Sulfate (Ferrous Sulfate (Ec)) 325 mg DAILY PO Last administered on 10/16/18at 08:45; Admin Dose 325 MG; Start 10/08/18 at 09:00 IV Flush (NS 3 ml) 3 ml PER PROTOCOL IV ; Start 10/07/18 at 12:30 Ondansetron HCl (Zofran Inj) 4 mg Q6H PRN IV NAUSEA/VOMITING; Start 10/07/18 at 12:30 Acetaminophen (Tylenol Tab) 650 mg Q6H PRN PO .PAIN 1-3 OR TEMP Last administered on 10/16/18 18:56; Admin Dose 650 MG; Start 10/07/18 at 12:30 Acetaminophen/ Hydrocodone Bitart ([place] (5/325)) 1 tab Q6H PRN PO .PAIN 4-6 Last administered on 10/16/18 21:14; Admin Dose 1 TAB; Start 10/07/18 at 12:30 Clonidine (Catapres) 0.1 mg BID PO Last administered on 10/16/18 08:46; Admin Dose 0.1 MG; Start 10/07/18 at 22:00; Status Hold Diagnostic Test (Pha) (Accu-Chek) 1 ea 02 XX Last administered on 10/13/18 02:00; Admin Dose 1 EA; Start 10/08/18 at 02:00 Miscellaneous Information 1 ea NOTE XX ; Start 10/07/18 at 21:00 Glucose (Glutose) 15 gm Q15M PRN PO DECREASED GLUCOSE; Start 10/07/18 at 21:00 Glucose (Glutose) 22.5 gm Q15M PRN PO DECREASED GLUCOSE; Start 10/07/18 at 21:00 Dextrose (D50w Syringe) 25 ml Q15M PRN IV DECREASED GLUCOSE; Start 10/07/18 at 21:00 Dextrose (D50w Syringe) 50 ml Q15M PRN IV DECREASED GLUCOSE; Start 10/07/18 at 21:00 Glucagon (Glucagen) 1 mg Q15M PRN IM DECREASED GLUCOSE; Start 10/07/18 at 21:00 Glucose (Glutose) 15 gm Q15M PRN BUCCAL DECREASED GLUCOSE; Start 10/07/18 at 21:00 Meropenem/Sodium Chloride 50 ml @ 100 mls/hr Q12 IVPB Last administered on 21:01; Admin Dose 100 MLS/HR; Start 10/09/18 at 12:00 Collagenase (Santyl) 1 applic DAILY TOP Last administered on 10/16/18 08:46; Admin Dose 1 APPLIC; Start 10/09/18 at 19:00 Sodium Hypochlorite (Dakins Diluted ()) 1 applic DAILY TP Last administered on 10/16/18 08:47; Admin Dose 1 APPLIC; Start 10/11/18 at 09:00 Caspofungin 50 mg/ Sodium Chloride 250 ml @ 250 mls/hr Q24H IVPB Last administered on 10/16/18 12:09; Admin Dose 250 MLS/HR; Start 10/12/18 at 11:00 Quetiapine Fumarate (Seroquel) 25 mg BID@0900,1200 PO Last administered on 10/16/18 12:10; Admin Dose 25 MG; Start 10/11/18 at 12:00 Quetiapine Fumarate (Seroquel) 50 mg HS PO Last administered on 10/16/18 21:02; Admin Dose 50 MG; Start 10/11/18 at 21:00 Vancomycin HCl (Vanco Iv Per Pharmacy) VANCOMYCIN PER PHARMACY PER PROTOCOL XX ; Start 10/13/18 at 15:00 Insulin Glargine (Lantus) 12 units DAILY@1200 SC Last administered on 10/15/18 13:11; Admin Dose 12 UNITS; Start 10/13/18 at 15:30 Vancomycin HCl 250 ml @ 125 mls/hr Q36H IVPB Last administered on 10/16/18 17:12; Admin Dose 125 MLS/HR; Start 10/15/18 at 05:00 Morphine Sulfate (morphine) 2 mg Q4H PRN IV SEVERE PAIN LEVEL 7-10 Last administered on 10/16/18 09:04; Admin Dose 2 MG; Start 10/15/18 at 21:00 Insulin Aspart (Novolog Insulin Pen) (Adult SC Insulin - Mild Algorithm)... AC DINNER BEDTIME SC Last administered on 10/16/18at 22:00; Admin Dose 2 UNIT; Start 10/16/18 at 17:25 Miscellaneous Information (*Rx Drug Level Order Reminder*) VANCO TR AT 0400 0400 ONCE XX ; Start 10/18/18 at 04:00; Stop 10/18/18 at 04:01 Potassium Chloride/Dextrose/ Sod Cl 1,000 ml @ 60 mls/hr [id number] IV Last administered on 10/16/18 15:50; Admin Dose 60 MLS/HR; Start 10/16/18 at 14:30 EVA TREJO MD Oct 17, 2018 08:14
[2018-10-17] MEDS: MEROPENEM 500MG/50 ML (PMX) 50 ML IVPB SCH ×2 (08:51→21:19)
[2018-10-17] MEDS: FERROUS SULFATE (EC) 325 MG TAB PO SCH (08:51)
[2018-10-17] MEDS: DOCUSATE SODIUM 100 MG CAP PO SCH ×3 (08:51→21:19)
[2018-10-17] MEDS: ALLOPURINOL 100 MG TAB PO SCH ×2 (08:51→21:19)
[2018-10-17] MEDS: COLLAGENASE 5 GM (UD JAR) TOP SCH ×2 (08:51→11:25)
[2018-10-17] MEDS: DAKINS 0.0125%(1/40) 473 ML SOLUTION TP SCH (08:52)
[2018-10-17] MEDS: QUETIAPINE 25 MG TAB PO SCH ×3 (08:55→21:19)
--- NOTE | 2018-10-17 09:20 | PN ---
Date/Time of Note Date/Time of Note DATE: 10/17/18 TIME: 09:15 Assessment/Plan VTE Pro[place]axis [place] [facility] [place]: 9 [place]CD applied [place] [facility] [place] SCD contraindicated: other Pharmacological prophylaxis: other Pharm contraindication: other Lines/Catheters IV Catheter Type (from [facility]): Peripheral IV Urinary Cath still in place: Yes Reason Cath still needed: urinary retention Assessment/Plan Assessment/Plan -Chronic gastritis per EGD, continue PPI. -Anemia, history of emesis at home and loss of appetite. Dr. Winkler is following in gastroenterology consultation. Colonoscopy recommended however patient is unable to take p.o. prep, patient's son refused NG tube placement. -Sepsis secondary to urinary tract infection and possible early pneumonia, resolving. Continue antibiotics per ID. Dr. Elias is following in infection disease consultation. -UTI. Continue antibiotics per ID. -Hyperkalemia, resolved, status post treatment -Acute kidney injury, continue gentle hydration, monitor BUN and creatinine. Dr. Arreaga is following in nephrology consultation. -Hypertension -Systolic congestive heart failure. Dr. Chávez is following in cardiology consultation. -Cardiomyopathy with ejection fraction 50% -Atrial fibrillation, patient did not tolerate anticoagulation in the past due to bleeding and anemia, patient was on aspirin which is currently held due significant drop in hemoglobin. -Coronary artery disease, status post CABG -Diabetes mellitus type 2, continue Lantus and pre-meal NovoLog. -History of endocarditis, status post treatment -Sacral, right foot, and left garcia wounds present on admission. Continue current care per wound care recommendations. -Right heel wound with early osteomyelitis, status post debridement and application of allograft and wound VAC on 10/15/2018, Dr. Garland is following and podiatry consultation -History of left femoral artery thrombectomy, left garcia open wound. Dr. Dawson is asked to see patient in vascular surgery consultation for evaluation of left garcia wound. Further recommendations based on clinical course. Plan of care discussed with Dr. Mi. Result Diagram: 10/17/18 0533 10/17/18 0533 Results 24hrs Laboratory Tests Test 10/16/18 12:37 10/16/18 17:14 10/16/18 21:21 10/17/18 02:05 Bedside Glucose 76 108 215 212 Test 10/17/18 05:33 White Blood Count 9.8 Red Blood Count 3.18 L Hemoglobin 8.5 L Hematocrit 28.2 L Mean Corpuscular 88.7 Volume Mean Corpuscular 26.7 L Hemoglobin Mean Corpuscular 30.1 L Hemoglobin Concent Red Cell 18.9 H Distribution Width Platelet Count 266 Mean Platelet Volume 9.8 Immature 0.600 H Granulocytes % Neutrophils % 72.1 Lymphocytes % 17.8 Monocytes % 7.9 Eosinophils % 1.4 Basophils % 0.2 Nucleated Red Blood 0.0 Cells % Immature 0.060 H Granulocytes # Neutrophils # 7.0 Lymphocytes # 1.7 Monocytes # 0.8 Eosinophils # 0.1 Basophils # 0.0 Nucleated Red Blood 0.0 Cells # Sodium Level 140 Potassium Level 4.0 Chloride Level 113 H Carbon Dioxide Level 24 Anion Gap 3 L Blood Urea Nitrogen 23 H Creatinine 0.92 Est Glomerular Filtrat Rate mL/min Glucose Level 194 # Calcium Level 8.4 Magnesium Level 1.7 Subjective 24 Hr Interval Summary Free Text/Dictation -nad -afebrile -status post right heel debridement application, soft tissue and bone biopsy, application allograft and and wound VAC. - more alert/awake than yesterday -poor appetite - on IV fluids with dextrose - patient is bradycardic, with a rate of 56-cardio follows -Magnesium wnl - no events overnight Exam/Review of Systems Exam Vitals Vital Signs Date Temp Pulse Resp B/P (MAP) Pulse Ox O2 O2 Flow FiO2 Time Delivery Rate 10/17/18 97.6 56 18 127/42 99 Nasal 07:32 (70) Cannula 10/17/18 2.0 01:31 Intake and Output 10/16/18 10/16/18 10/17/18 1515:00 23:00 07:00 IntakeIntake Total 120 ml 810 ml 360 ml OutputOutput Total 250 ml 750 ml BalanceBalance 120 ml 560 ml -390 ml Constitutional: alert, well developed Eyes: nl lids, nl sclera ENMT: nl external ears & nose Cardiovascular: nl pulses, other (s1s2) Gastrointestinal: soft, non-tender Musculoskeletal: nl extremities to inspection Extremities: normal pulses Neurological: nl speech, confused Skin: nl turgor Lymph: nontender Results Results 24hrs Laboratory Tests Test 10/16/18 12:37 10/16/18 17:14 10/16/18 21:21 10/17/18 02:05 Bedside Glucose 76 108 215 212 Test 10/17/18 05:33 White Blood Count 9.8 Red Blood Count 3.18 L Hemoglobin 8.5 L Hematocrit 28.2 L Mean Corpuscular 88.7 Volume Mean Corpuscular 26.7 L Hemoglobin Mean Corpuscular 30.1 L Hemoglobin Concent Red Cell 18.9 H Distribution Width Platelet Count 266 Mean Platelet Volume 9.8 Immature 0.600 H Granulocytes % Neutrophils % 72.1 Lymphocytes % 17.8 Monocytes % 7.9 Eosinophils % 1.4 Basophils % 0.2 Nucleated Red Blood 0.0 Cells % Immature 0.060 H Granulocytes # Neutrophils # 7.0 Lymphocytes # 1.7 Monocytes # 0.8 Eosinophils # 0.1 Basophils # 0.0 Nucleated Red Blood 0.0 Cells # Sodium Level 140 Potassium Level 4.0 Chloride Level 113 H Carbon Dioxide Level 24 Anion Gap 3 L Blood Urea Nitrogen 23 H Creatinine 0.92 Est Glomerular Filtrat Rate mL/min Glucose Level 194 # Calcium Level 8.4 Magnesium Level 1.7 Medications Medication Current Medications Allopurinol (Zyloprim) 100 mg BID PO Last administered on 10/17/18 08:51; Admin Dose 100 MG; Start 10/07/18 at 21:00 Aspirin (Halfprin) 81 mg DAILY PO Last administered on 10/08/18 08:14; Admin Dose 81 MG; Start 10/08/18 at 09:00; Status Hold Docusate Sodium (Colace) 100 mg TID PO Last administered on 10/17/18 08:51; Admin Dose 100 MG; Start 10/07/18 at 21:00 Pantoprazole (Protonix Tab) 40 mg DAILY@06 PO Last administered on 10/17/18at 06:10; Admin Dose 40 MG; Start 10/08/18 at 06:00 Ferrous Sulfate (Ferrous Sulfate (Ec)) 325 mg DAILY PO Last administered on 10/17/18 08:51; Admin Dose 325 MG; Start 10/08/18 at 09:00 IV Flush (NS 3 ml) 3 ml PER PROTOCOL IV ; Start 10/07/18 at 12:30 Ondansetron HCl (Zofran Inj) 4 mg Q6H PRN IV NAUSEA/VOMITING; Start 10/07/18 at 12:30 Acetaminophen (Tylenol Tab) 650 mg Q6H PRN PO .PAIN 1-3 OR TEMP Last administered on 10/16/18 18:56; Admin Dose 650 MG; Start 10/07/18 at 12:30 Acetaminophen/ Hydrocodone Bitart ([place] (5/325)) 1 tab Q6H PRN PO .PAIN 4-6 Last administered on 10/16/18 21:14; Admin Dose 1 TAB; Start 10/07/18 at 12:30 Clonidine (Catapres) 0.1 mg BID PO Last administered on 10/16/18 08:46; Admin Dose 0.1 MG; Start 10/07/18 at 22:00; Status Hold Diagnostic Test (Pha) (Accu-Chek) 1 ea 02 XX Last administered on 10/13/18 02:00; Admin Dose 1 EA; Start 10/08/18 at 02:00 Miscellaneous Information 1 ea NOTE XX ; Start 10/07/18 at 21:00 Glucose (Glutose) 15 gm Q15M PRN PO DECREASED GLUCOSE; Start 10/07/18 at 21:00 Glucose (Glutose) 22.5 gm Q15M PRN PO DECREASED GLUCOSE; Start 10/07/18 at 21:00 Dextrose (D50w Syringe) 25 ml Q15M PRN IV DECREASED GLUCOSE; Start 10/07/18 at 21:00 Dextrose (D50w Syringe) 50 ml Q15M PRN IV DECREASED GLUCOSE; Start 10/07/18 at 21:00 Glucagon (Glucagen) 1 mg Q15M PRN IM DECREASED GLUCOSE; Start 10/07/18 at 21:00 Glucose (Glutose) 15 gm Q15M PRN BUCCAL DECREASED GLUCOSE; Start 10/07/18 at 21:00 Meropenem/Sodium Chloride 50 ml @ 100 mls/hr Q12 IVPB Last administered on 10/17/18 08:51; Admin Dose 100 MLS/HR; Start 10/09/18 at 12:00 Collagenase (Santyl) 1 applic DAILY TOP Last administered on 10/17/18 08:51; Admin Dose 1 APPLIC; Start 10/09/18 at 19:00 Sodium Hypochlorite (Dakins Diluted ()) 1 applic DAILY TP Last administered on 10/16/18 08:47; Admin Dose 1 APPLIC; Start 10/11/18 at 09:00 Caspofungin 50 mg/ Sodium Chloride 250 ml @ 250 mls/hr Q24H IVPB Last administered on 10/16/18 12:09; Admin Dose 250 MLS/HR; Start 10/12/18 at 11:00 Quetiapine Fumarate (Seroquel) 25 mg BID@0900,1200 PO Last administered on 10/17/18 08:55; Admin Dose 25 MG; Start 10/11/18 at 12:00 Quetiapine Fumarate (Seroquel) 50 mg HS PO Last administered on 10/16/18 21:02; Admin Dose 50 MG; Start 10/11/18 at 21:00 Vancomycin HCl (Vanco Iv Per Pharmacy) VANCOMYCIN PER PHARMACY PER PROTOCOL XX ; Start 10/13/18 at 15:00 Insulin Glargine (Lantus) 12 units DAILY@1200 SC Last administered on 10/15/18 13:11; Admin Dose 12 UNITS; Start 10/13/18 at 15:30 Vancomycin HCl 250 ml @ 125 mls/hr Q36H IVPB Last administered on 10/16/18 17:12; Admin Dose 125 MLS/HR; Start 10/15/18 at 05:00 Morphine Sulfate (morphine) 2 mg Q4H PRN IV SEVERE PAIN LEVEL 7-10 Last administered on 10/16/18 09:04; Admin Dose 2 MG; Start 10/15/18 at 21:00 Insulin Aspart (Novolog Insulin Pen) (Adult SC Insulin - Mild Algorithm)... AC DINNER BEDTIME SC Last administered on 10/16/18 22:00; Admin Dose 2 UNIT; Start 10/16/18 at 17:25 Miscellaneous Information (*Rx Drug Level Order Reminder*) VANCO TR AT 0400 0400 ONCE XX ; Start 10/18/18 at 04:00; Stop 10/18/18 at 04:01 Potassium Chloride/Dextrose/ Sod Cl 1,000 ml @ 60 mls/hr [id number] IV Last administered on 10/16/18at 15:50; Admin Dose 60 MLS/HR; Start 10/16/18 at 14:30 ELIZA HECTOR Oct 17, 2018 09:20
--- NOTE | 2018-10-17 10:15 | PN ---
"Date/Time of Note Date/Time of Note DATE: 10/17/18 TIME: 10:12 Assessment/Plan Lines/Catheters IV Catheter Type (from Nrs): Peripheral IV Odonnell in Place (from Nrs): Yes Assessment/Plan Chief Complaint/Hosp Course 1. Right buttock wound; Foot wound with probable osteo- -debridement of right buttock wound as needed -continue local care -frequent turning and off-loading -low air loss mattress -vitamin c -short term zinc -optimize nutrition -foot wounds per podiatry> status post debridement currently with wound VAC -calf wound per vascular> f/u w Vascular 2. UTI: -abx per sensitivity -frequent bladder emptying/cath care 3. BRANDON: Resolved; hypoechoic lesion left kidney, possible neoplasm; hx of renal ca and nephrectomy -Monitor -armenta for neoplasm>per medical team 4. Microcytic hypochromic anemia: sp prbc tx -monitor -transfuse as needed -GI w/u in process 5. Obesity bmi 31 -diet and exercise optimization -encourage weight loss 6. Poor appetite: -supportive -treat infections 7. Hepatic steatosis: -nutrition and weight optimization -medical fu 8. Gastritis: -PPI 9. Leukocytosis: resolved Thank you. Patient seen and examined in collaboration with Dr. Isaac Erwin. Subjective 24 Hr Interval Summary WBC Normalized. appears comfortable. Nonverbal indicators of pain not present. Continues with wound vac. No fevers, labored breathing, congested cough, vomiting, diarrhea, sz, rash. Exam/Review of Systems Vital Signs Vitals Vital Signs Date Temp Pulse Resp B/P (MAP) Pulse Ox O2 O2 Flow FiO2 Time Delivery Rate 10/17/18 97.6 56 18 127/42 99 Nasal 07:32 (70) Cannula 10/17/18 2.0 01:31 Intake and Output 10/16/18 10/16/18 10/17/18 1515:00 23:00 07:00 IntakeIntake Total 120 ml 810 ml 360 ml OutputOutput Total 250 ml 750 ml BalanceBalance 120 ml 560 ml -390 ml Exam Free Text/Dictation Constitutional: alert; No oriented (confused) Psych: anxiety Head: normocephalic, atraumatic Eyes: nl conjunctiva, EOMI, nl lids, nl sclera ENMT: nl external ears & nose, nl nasal mucosa & septum, mucosa pink and moist Neck: supple, non-tender Respiratory: normal air movement; No congested cough Cardiovascular: regular rate and rhythm, nl pulses; No edema Gastrointestinal: soft, non-tender; No distended, No rebound or guarding Genitourinary - Female: nl external genitalia Musculoskeletal: nl extremities to inspection, muscle weakness (gen weakness) Extremities: normal pulses; No edema, No pitting pedal edema Neurological: nl speech; No nl mental status (forgetful), No nl strength (gen weakness) Skin: other (Multiple wounds: right buttock:min slough, no periwound erythema/d rainage/odor | Left calf:min slough, min alecia wound erythema | Bilateral foot wounds ; right heel wrapped-wound VAC); No rash or lesions Results Result Diagram: 10/17/18 0533 10/17/18 0533 JUSTINE GUEVARA NP Oct 17, 2018 10:15"
[2018-10-17 11:38] VITALS: BP 130/50; PULSE 63; RESP 18
[2018-10-17] MEDS: CASPOFUNGIN 50 MG in SOD CHLORIDE 0.9% 250 ML IVPB SCH (11:45)
[2018-10-17] MEDS: INSULIN GLARGINE [LANTus] (100 UNITS/ML) SYG SC SCH (11:56)
--- NOTE | 2018-10-17 13:45 | CONS ---
Assessment/Plan Assessment/Plan Hospital Course (Demo Recall) Patient is very weak laying comfortably in bed no fevers overnight. WBC today went down to 9.8 neutrophils 72.1 BUN 23 creatinine 0.92 Antimicrobials: Vancomycin, Cancidas, Merrem Microbiology: Blood cultures negative, urine culture + MDR Kleb, repeat cx + yeast, Wound culture growing gram-negative rods Chest x-ray on admission revealed no evidence of CHF or pneumonia. Renal ultrasound revealed no hydronephrosis and no nephrolithiasis. 3.1 x 2 x 2.1 cm hypoechoic lesion left pole of the kidney questionable neoplasm Physical examination: Well-developed chronically ill-appearing wasted elderly woman who is in no distress. Head atraumatic normocephalic neck is supple chest rise symmetrical breath sounds diminished bases. Heart: S1-S2. Abdomen soft bowel sounds present. Extremities with dependent bilateral lower extremities edema, R foot dsg Assessment: 1. S/p sepsis, present on admission 2. Gram-negative melvi/yeast UTI 3. Acute on chronic anemia 4. Coronary artery disease with a history of CABG 5. Echo dense structure seen by tricuspid valve, right atrium and IVC-thrombus, vegetation versus tumor=== completed 6 weeks IV antibiotics> 6. History of renal cell carcinoma status post nephrectomy 7. Diabetes 8. R heel osteomyelitis status post debridement Plan: Remains unchanged, continue IV antibiotics for 6 weeks for osteomyelitis of the heel, follow intraoperative cultures wound care per podiatry Consultation Date/Type/Reason Admit Date/Time Oct 07, 2018 at 03:37 Initial Consult Date 10/07/18 Type of Consult id Requesting Provider: JAGJIT MONTES MD Date/Time of Note DATE: 10/17/18 TIME: 13:45 Exam/Review of Systems Exam Vitals Vital Signs Date Temp Pulse Resp B/P (MAP) Pulse Ox O2 O2 Flow FiO2 Time Delivery Rate 10/17/18 97.3 63 18 130/50 100 Nasal 11:38 (76) Cannula 10/17/18 2.0 08:10 Intake and Output 10/16/18 10/16/18 10/17/18 1515:00 23:00 07:00 IntakeIntake Total 120 ml 810 ml 360 ml OutputOutput Total 250 ml 750 ml BalanceBalance 120 ml 560 ml -390 ml Results Result Diagram: 10/17/18 0533 10/17/18 0533 Results 24hrs Laboratory Tests Test 10/16/18 17:14 10/16/18 21:21 10/17/18 02:05 10/17/18 05:33 Bedside Glucose 108 215 212 White Blood Count 9.8 Red Blood Count 3.18 L Hemoglobin 8.5 L Hematocrit 28.2 L Mean Corpuscular 88.7 Volume Mean Corpuscular 26.7 L Hemoglobin Mean Corpuscular 30.1 L Hemoglobin Concent Red Cell 18.9 H Distribution Width Platelet Count 266 Mean Platelet Volume 9.8 Immature 0.600 H Granulocytes % Neutrophils % 72.1 Lymphocytes % 17.8 Monocytes % 7.9 Eosinophils % 1.4 Basophils % 0.2 Nucleated Red Blood 0.0 Cells % Immature 0.060 H Granulocytes # Neutrophils # 7.0 Lymphocytes # 1.7 Monocytes # 0.8 Eosinophils # 0.1 Basophils # 0.0 Nucleated Red Blood 0.0 Cells # Sodium Level 140 Potassium Level 4.0 Chloride Level 113 H Carbon Dioxide Level 24 Anion Gap 3 L Blood Urea Nitrogen 23 H Creatinine 0.92 Est Glomerular Filtrat Rate mL/min Glucose Level 194 # Calcium Level 8.4 Magnesium Level 1.7 Test 10/17/18 11:48 Bedside Glucose 216 Medications Medication Current Medications Allopurinol (Zyloprim) 100 mg BID PO Last administered on 10/17/18at 08:51; Admin Dose 100 MG; Start 10/07/18 at 21:00 Aspirin (Halfprin) 81 mg DAILY PO Last administered on 10/08/18at 08:14; Admin Dose 81 MG; Start 10/08/18 at 09:00; Status Hold Docusate Sodium (Colace) 100 mg TID PO Last administered on 10/17/18at 12:57; Admin Dose 100 MG; Start 10/07/18 at 21:00 Pantoprazole (Protonix Tab) 40 mg DAILY@06 PO Last administered on 10/17/18at 06:10; Admin Dose 40 MG; Start 10/08/18 at 06:00 Ferrous Sulfate (Ferrous Sulfate (Ec)) 325 mg DAILY PO Last administered on 10/17/18at 08:51; Admin Dose 325 MG; Start 10/08/18 at 09:00 IV Flush (NS 3 ml) 3 ml PER PROTOCOL IV ; Start 10/07/18 at 12:30 Ondansetron HCl (Zofran Inj) 4 mg Q6H PRN IV NAUSEA/VOMITING; Start 10/07/18 at 12:30 Acetaminophen (Tylenol Tab) 650 mg Q6H PRN PO .PAIN 1-3 OR TEMP Last administered on 10/16/18at 18:56; Admin Dose 650 MG; Start 10/07/18 at 12:30 Acetaminophen/ Hydrocodone Bitart ([place] (5/325)) 1 tab Q6H PRN PO .PAIN 4-6 Last administered on 10/16/18 21:14; Admin Dose 1 TAB; Start 10/07/18 at 12:30 Clonidine (Catapres) 0.1 mg BID PO Last administered on 10/16/18 08:46; Admin Dose 0.1 MG; Start 10/07/18 at 22:00; Status Hold Diagnostic Test (Pha) (Accu-Chek) 1 ea 02 XX Last administered on 10/13/18 02:00; Admin Dose 1 EA; Start 10/08/18 at 02:00 Miscellaneous Information 1 ea NOTE XX ; Start 10/07/18 at 21:00 Glucose (Glutose) 15 gm Q15M PRN PO DECREASED GLUCOSE; Start 10/07/18 at 21:00 Glucose (Glutose) 22.5 gm Q15M PRN PO DECREASED GLUCOSE; Start 10/07/18 at 21:00 Dextrose (D50w Syringe) 25 ml Q15M PRN IV DECREASED GLUCOSE; Start 10/07/18 at 21:00 Dextrose (D50w Syringe) 50 ml Q15M PRN IV DECREASED GLUCOSE; Start 10/07/18 at 21:00 Glucagon (Glucagen) 1 mg Q15M PRN IM DECREASED GLUCOSE; Start 10/07/18 at 21:00 Glucose (Glutose) 15 gm Q15M PRN BUCCAL DECREASED GLUCOSE; Start 10/07/18 at 21:00 Meropenem/Sodium Chloride 50 ml @ 100 mls/hr Q12 IVPB Last administered on 10/17/18 08:51; Admin Dose 100 MLS/HR; Start 10/09/18 at 12:00 Collagenase (Santyl) 1 applic DAILY TOP Last administered on 10/17/18 08:51; Admin Dose 1 APPLIC; Start 10/09/18 at 19:00 Sodium Hypochlorite (Dakins Diluted ()) 1 applic DAILY TP Last administered on 10/16/18 08:47; Admin Dose 1 APPLIC; Start 10/11/18 at 09:00 Caspofungin 50 mg/ Sodium Chloride 250 ml @ 250 mls/hr Q24H IVPB Last administered on 10/17/18 11:45; Admin Dose 250 MLS/HR; Start 10/12/18 at 11:00 Quetiapine Fumarate (Seroquel) 25 mg BID@0900,1200 PO Last administered on 10/17/18 11:49; Admin Dose 25 MG; Start 10/11/18 at 12:00 Quetiapine Fumarate (Seroquel) 50 mg HS PO Last administered on 10/16/18 21:02; Admin Dose 50 MG; Start 10/11/18 at 21:00 Vancomycin HCl (Vanco Iv Per Pharmacy) VANCOMYCIN PER PHARMACY PER PROTOCOL XX ; Start 10/13/18 at 15:00 Insulin Glargine (Lantus) 12 units DAILY@1200 SC Last administered on 10/17/18 11:56; Admin Dose 12 UNITS; Start 10/13/18 at 15:30 Vancomycin HCl 250 ml @ 125 mls/hr Q36H IVPB Last administered on 10/16/18 17:12; Admin Dose 125 MLS/HR; Start 10/15/18 at 05:00 Morphine Sulfate (morphine) 2 mg Q4H PRN IV SEVERE PAIN LEVEL 7-10 Last administered on 10/16/18 09:04; Admin Dose 2 MG; Start 10/15/18 at 21:00 Insulin Aspart (Novolog Insulin Pen) (Adult SC Insulin - Mild Algorithm)... AC DINNER BEDTIME SC Last administered on 10/16/18at 22:00; Admin Dose 2 UNIT; Start 10/16/18 at 17:25 Miscellaneous Information (*Rx Drug Level Order Reminder*) VANCO TR AT 0400 0400 ONCE XX ; Start 10/18/18 at 04:00; Stop 10/18/18 at 04:01 Potassium Chloride/Dextrose/ Sod Cl 1,000 ml @ 60 mls/hr [id number] IV Last administered on 10/16/18at 15:50; Admin Dose 60 MLS/HR; Start 10/16/18 at 14:30 Collagenase (Santyl) 1 applic DAILY TOP ; Start 10/17/18 at 12:00 BARBARA ORDAZ NP Oct 17, 2018 13:45
--- NOTE | 2018-10-17 13:50 | CONS ---
Assessment/Plan Assessment/Plan Assessment/Plan (Daily) Right heel decubitus ulceration stage 4 DM2 with peripheral neuropathy Right foot osteomyelitis Right 5th digit skin lesion PAD Left lower extremity ulceration Sepsis 2/2 to UTI and early pneumonia Lack of mobility Delirium Plan Wound VAC dressings changed and noted improved wound appearance to the right heel. Recommend to continue with wound VAC and change MWF with wound care nurse and continue with offloading of heels. Intra op wound culture showing gram neg melvi. Awaiting intra op path of right 5th digit skin lesion and bone specimens. Continue with abx per ID recommendations. Appreciate vascular surgery input from Dr. Garcia. Consultation Date/Type/Reason Admit Date/Time Oct 07, 2018 at 03:37 Initial Consult Date 10/10/18 Requesting Provider: JAGJIT MONTES MD Date/Time of Note DATE: 10/17/18 TIME: 13:50 24 HR Interval Summary Free Text/Dictation No acute events overnight. Exam/Review of Systems Exam Vitals Vital Signs Date Temp Pulse Resp B/P (MAP) Pulse Ox O2 O2 Flow FiO2 Time Delivery Rate 10/17/18 97.3 63 18 130/50 100 Nasal 11:38 (76) Cannula 10/17/18 2.0 08:10 Intake and Output 10/16/18 10/16/18 10/17/18 1515:00 23:00 07:00 IntakeIntake Total 120 ml 810 ml 360 ml OutputOutput Total 250 ml 750 ml BalanceBalance 120 ml 560 ml -390 ml Exam Exam DP pulse palpable, non palpable PT pulse, palpable popliteal pulse. Irregular rhythm appreciated during palpation Skin temperature gradient warm to warm from proximal leg to distal feet Absent protective sensations Right posterior heel wound measurement was 2.6 x 2.3 x 2.2cm ulcer probes to bone, no foul odor appreciated, no proximal streaking, fibrogranular wound base Pain on palpation to ulceration site Bandage to left lower extremity site with previously healed surgical bypass site. Non invasive arterial studies: IMPRESSION: Scattered calcific plaquing. No hemodynamically significant stenosis or occlusion. Bilateral small vessel disease within both trifurcation vessels. CT Right foot IMPRESSION: 1. Slight cortical erosive change appears to be present involving the calcaneal tuberosity that may reflect osteomyelitis with the given history. 2. Mild to moderate midfoot arthrosis. 3. MRI may be helpful for further evaluation of osteomyelitis if warranted. Results Result Diagram: 10/17/18 0533 10/17/18 0533 Results 24hrs Laboratory Tests Test 10/16/18 17:14 10/16/18 21:21 10/17/18 02:05 10/17/18 05:33 Bedside Glucose 108 215 212 White Blood Count 9.8 Red Blood Count 3.18 L Hemoglobin 8.5 L Hematocrit 28.2 L Mean Corpuscular 88.7 Volume Mean Corpuscular 26.7 L Hemoglobin Mean Corpuscular 30.1 L Hemoglobin Concent Red Cell 18.9 H Distribution Width Platelet Count 266 Mean Platelet Volume 9.8 Immature 0.600 H Granulocytes % Neutrophils % 72.1 Lymphocytes % 17.8 Monocytes % 7.9 Eosinophils % 1.4 Basophils % 0.2 Nucleated Red Blood 0.0 Cells % Immature 0.060 H Granulocytes # Neutrophils # 7.0 Lymphocytes # 1.7 Monocytes # 0.8 Eosinophils # 0.1 Basophils # 0.0 Nucleated Red Blood 0.0 Cells # Sodium Level 140 Potassium Level 4.0 Chloride Level 113 H Carbon Dioxide Level 24 Anion Gap 3 L Blood Urea Nitrogen 23 H Creatinine 0.92 Est Glomerular Filtrat Rate mL/min Glucose Level 194 # Calcium Level 8.4 Magnesium Level 1.7 Test 10/17/18 11:48 Bedside Glucose 216 Medications Medication Current Medications Allopurinol (Zyloprim) 100 mg BID PO Last administered on 10/17/18at 08:51; Admin Dose 100 MG; Start 10/07/18 at 21:00 Aspirin (Halfprin) 81 mg DAILY PO Last administered on 10/08/18at 08:14; Admin Dose 81 MG; Start 10/08/18 at 09:00; Status Hold Docusate Sodium (Colace) 100 mg TID PO Last administered on 10/17/18at 12:57; Admin Dose 100 MG; Start 10/07/18 at 21:00 Pantoprazole (Protonix Tab) 40 mg DAILY@06 PO Last administered on 10/17/18at 06:10; Admin Dose 40 MG; Start 10/08/18 at 06:00 Ferrous Sulfate (Ferrous Sulfate (Ec)) 325 mg DAILY PO Last administered on 10/17/18at 08:51; Admin Dose 325 MG; Start 10/08/18 at 09:00 IV Flush (NS 3 ml) 3 ml PER PROTOCOL IV ; Start 10/07/18 at 12:30 Ondansetron HCl (Zofran Inj) 4 mg Q6H PRN IV NAUSEA/VOMITING; Start 10/07/18 at 12:30 Acetaminophen (Tylenol Tab) 650 mg Q6H PRN PO .PAIN 1-3 OR TEMP Last administered on 10/16/18 18:56; Admin Dose 650 MG; Start 10/07/18 at 12:30 Acetaminophen/ Hydrocodone Bitart ([place] (5/325)) 1 tab Q6H PRN PO .PAIN 4-6 Last administered on 10/16/18 21:14; Admin Dose 1 TAB; Start 10/07/18 at 12:30 Clonidine (Catapres) 0.1 mg BID PO Last administered on 10/16/18 08:46; Admin Dose 0.1 MG; Start 10/07/18 at 22:00; Status Hold Diagnostic Test (Pha) (Accu-Chek) 1 ea 02 XX Last administered on 10/13/18at 02:00; Admin Dose 1 EA; Start 10/08/18 at 02:00 Miscellaneous Information 1 ea NOTE XX ; Start 10/07/18 at 21:00 Glucose (Glutose) 15 gm Q15M PRN PO DECREASED GLUCOSE; Start 10/07/18 at 21:00 Glucose (Glutose) 22.5 gm Q15M PRN PO DECREASED GLUCOSE; Start 10/07/18 at 21:00 Dextrose (D50w Syringe) 25 ml Q15M PRN IV DECREASED GLUCOSE; Start 10/07/18 at 21:00 Dextrose (D50w Syringe) 50 ml Q15M PRN IV DECREASED GLUCOSE; Start 10/07/18 at 21:00 Glucagon (Glucagen) 1 mg Q15M PRN IM DECREASED GLUCOSE; Start 10/07/18 at 21:00 Glucose (Glutose) 15 gm Q15M PRN BUCCAL DECREASED GLUCOSE; Start 10/07/18 at 21:00 Meropenem/Sodium Chloride 50 ml @ 100 mls/hr Q12 IVPB Last administered on 10/17/18 08:51; Admin Dose 100 MLS/HR; Start 10/09/18 at 12:00 Collagenase (Santyl) 1 applic DAILY TOP Last administered on 10/17/18 08:51; Admin Dose 1 APPLIC; Start 10/09/18 at 19:00 Sodium Hypochlorite (Dakins Diluted ()) 1 applic DAILY TP Last administered on 10/16/18 08:47; Admin Dose 1 APPLIC; Start 10/11/18 at 09:00 Caspofungin 50 mg/ Sodium Chloride 250 ml @ 250 mls/hr Q24H IVPB Last administered on 10/17/18 11:45; Admin Dose 250 MLS/HR; Start 10/12/18 at 11:00 Quetiapine Fumarate (Seroquel) 25 mg BID@0900,1200 PO Last administered on 10/17/18 11:49; Admin Dose 25 MG; Start 10/11/18 at 12:00 Quetiapine Fumarate (Seroquel) 50 mg HS PO Last administered on 10/16/18 21:02; Admin Dose 50 MG; Start 10/11/18 at 21:00 Vancomycin HCl (Vanco Iv Per Pharmacy) VANCOMYCIN PER PHARMACY PER PROTOCOL XX ; Start 10/13/18 at 15:00 Insulin Glargine (Lantus) 12 units DAILY@1200 SC Last administered on 10/17/18 11:56; Admin Dose 12 UNITS; Start 10/13/18 at 15:30 Vancomycin HCl 250 ml @ 125 mls/hr Q36H IVPB Last administered on 10/16/18 17:12; Admin Dose 125 MLS/HR; Start 10/15/18 at 05:00 Morphine Sulfate (morphine) 2 mg Q4H PRN IV SEVERE PAIN LEVEL 7-10 Last administered on 10/16/18 09:04; Admin Dose 2 MG; Start 10/15/18 at 21:00 Insulin Aspart (Novolog Insulin Pen) (Adult SC Insulin - Mild Algorithm)... AC DINNER BEDTIME SC Last administered on 10/16/18 22:00; Admin Dose 2 UNIT; Start 10/16/18 at 17:25 Miscellaneous Information (*Rx Drug Level Order Reminder*) VANCO TR AT 0400 0400 ONCE XX ; Start 10/18/18 at 04:00; Stop 10/18/18 at 04:01 Potassium Chloride/Dextrose/ Sod Cl 1,000 ml @ 60 mls/hr [id number] IV Last administered on 10/16/18at 15:50; Admin Dose 60 MLS/HR; Start 10/16/18 at 14:30 Collagenase (Santyl) 1 applic DAILY TOP ; Start 10/17/18 at 12:00 NANCY DIANE DPM Oct 17, 2018 13:50
[2018-10-17] MEDS: HYDROCODONE/APAP (5/325) TAB PO PRN ×2 (13:52→21:19)
--- NOTE | 2018-10-17 14:09 | CONS ---
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 Echo dense structure seen by tricuspid valve, right atrium and IVC-thrombus, vegetation versus tumor CAD with history of CABG History of renal carcinoma status post nephrectomy approximately 8 years ago History of hypertension Diabetes Paroxysmal atrial fibrillation, intolerant to anticoagulation Patient presents with acute kidney injury, hyperkalemia and encephalopathy Hold all nephro toxic medications Mental status better today and following commands and answering some questions Given bradycardia, Coreg and amiodarone stopped, heart rate improved Magnesium supplementation has been ordered Consultation Date/Type/Reason Admit Date/Time Oct 07, 2018 at 03:37 Initial Consult Date 10/07/18 Type of Consult Cardiology Requesting Provider: JAGJIT MONTES MD Date/Time of Note DATE: 10/17/18 TIME: 14:07 24 HR Interval Summary Free Text/Dictation No shortness of breath, chest pain Exam/Review of Systems Vital Signs Vitals Vital Signs Date Temp Pulse Resp B/P (MAP) Pulse Ox O2 O2 Flow FiO2 Time Delivery Rate 10/17/18 97.3 63 18 130/50 100 Nasal 11:38 (76) Cannula 10/17/18 2.0 08:10 Intake and Output 10/16/18 10/16/18 10/17/18 1515:00 23:00 07:00 IntakeIntake Total 120 ml 810 ml 360 ml OutputOutput Total 250 ml 750 ml BalanceBalance 120 ml 560 ml -390 ml Exam Constitutional: alert (Following commands, no apparent distress, responding to questions) Head: normocephalic Respiratory: other (Coarse breath sounds bilaterally, no wheezing) Cardiovascular: regular rate and rhythm (S1-S2 heard) Gastrointestinal: soft, non-tender, bowel sounds Extremities: edema Labs Result Diagram: 10/17/18 0533 10/17/18 0533 Results 24hrs Laboratory Tests Test 10/16/18 17:14 10/16/18 21:21 10/17/18 02:05 10/17/18 05:33 Bedside Glucose 108 215 212 White Blood Count 9.8 Red Blood Count 3.18 L Hemoglobin 8.5 L Hematocrit 28.2 L Mean Corpuscular 88.7 Volume Mean Corpuscular 26.7 L Hemoglobin Mean Corpuscular 30.1 L Hemoglobin Concent Red Cell 18.9 H Distribution Width Platelet Count 266 Mean Platelet Volume 9.8 Immature 0.600 H Granulocytes % Neutrophils % 72.1 Lymphocytes % 17.8 Monocytes % 7.9 Eosinophils % 1.4 Basophils % 0.2 Nucleated Red Blood 0.0 Cells % Immature 0.060 H Granulocytes # Neutrophils # 7.0 Lymphocytes # 1.7 Monocytes # 0.8 Eosinophils # 0.1 Basophils # 0.0 Nucleated Red Blood 0.0 Cells # Sodium Level 140 Potassium Level 4.0 Chloride Level 113 H Carbon Dioxide Level 24 Anion Gap 3 L Blood Urea Nitrogen 23 H Creatinine 0.92 Est Glomerular Filtrat Rate mL/min Glucose Level 194 # Calcium Level 8.4 Magnesium Level 1.7 Test 10/17/18 11:48 Bedside Glucose 216 Medications Medications Current Medications Allopurinol (Zyloprim) 100 mg BID PO Last administered on 10/17/18 08:51; Admin Dose 100 MG; Start 10/07/18 at 21:00 Aspirin (Halfprin) 81 mg DAILY PO Last administered on 10/08/18 08:14; Admin Dose 81 MG; Start 10/08/18 at 09:00; Status Hold Docusate Sodium (Colace) 100 mg TID PO Last administered on 10/17/18 12:57; Admin Dose 100 MG; Start 10/07/18 at 21:00 Pantoprazole (Protonix Tab) 40 mg DAILY@06 PO Last administered on 10/17/18 06:10; Admin Dose 40 MG; Start 10/08/18 at 06:00 Ferrous Sulfate (Ferrous Sulfate (Ec)) 325 mg DAILY PO Last administered on 10/17/18 08:51; Admin Dose 325 MG; Start 10/08/18 at 09:00 IV Flush (NS 3 ml) 3 ml PER PROTOCOL IV ; Start 10/07/18 at 12:30 Ondansetron HCl (Zofran Inj) 4 mg Q6H PRN IV NAUSEA/VOMITING; Start 10/07/18 at 12:30 Acetaminophen (Tylenol Tab) 650 mg Q6H PRN PO .PAIN 1-3 OR TEMP Last administe red on 10/16/18at 18:56; Admin Dose 650 MG; Start 10/07/18 at 12:30 Acetaminophen/ Hydrocodone Bitart ([place] (5/325)) 1 tab Q6H PRN PO .PAIN 4-6 Last administered on 10/17/18 13:52; Admin Dose 1 TAB; Start 10/07/18 at 12:30 Clonidine (Catapres) 0.1 mg BID PO Last administered on 10/16/18 08:46; Admin Dose 0.1 MG; Start 10/07/18 at 22:00; Status Hold Diagnostic Test (Pha) (Accu-Chek) 1 ea 02 XX Last administered on 10/13/18at 02:00; Admin Dose 1 EA; Start 10/08/18 at 02:00 Miscellaneous Information 1 ea NOTE XX ; Start 10/07/18 at 21:00 Glucose (Glutose) 15 gm Q15M PRN PO DECREASED GLUCOSE; Start 10/07/18 at 21:00 Glucose (Glutose) 22.5 gm Q15M PRN PO DECREASED GLUCOSE; Start 10/07/18 at 21:00 Dextrose (D50w Syringe) 25 ml Q15M PRN IV DECREASED GLUCOSE; Start 10/07/18 at 21:00 Dextrose (D50w Syringe) 50 ml Q15M PRN IV DECREASED GLUCOSE; Start 10/07/18 at 21:00 Glucagon (Glucagen) 1 mg Q15M PRN IM DECREASED GLUCOSE; Start 10/07/18 at 21:00 Glucose (Glutose) 15 gm Q15M PRN BUCCAL DECREASED GLUCOSE; Start 10/07/18 at 21:00 Meropenem/Sodium Chloride 50 ml @ 100 mls/hr Q12 IVPB Last administered on 10/17/18 08:51; Admin Dose 100 MLS/HR; Start 10/09/18 at 12:00 Collagenase (Santyl) 1 applic DAILY TOP Last administered on 10/17/18 08:51; Admin Dose 1 APPLIC; Start 10/09/18 at 19:00 Sodium Hypochlorite (Dakins Diluted ()) 1 applic DAILY TP Last administered on 10/16/18 08:47; Admin Dose 1 APPLIC; Start 10/11/18 at 09:00 Caspofungin 50 mg/ Sodium Chloride 250 ml @ 250 mls/hr Q24H IVPB Last administered on 7/19/19at 11:45; Admin Dose 250 MLS/HR; Start 10/12/18 at 11:00 Quetiapine Fumarate (Seroquel) 25 mg BID@0900,1200 PO Last administered on 10/17/18at 11:49; Admin Dose 25 MG; Start 10/11/18 at 12:00 Quetiapine Fumarate (Seroquel) 50 mg HS PO Last administered on 10/16/18 21:02; Admin Dose 50 MG; Start 10/11/18 at 21:00 Vancomycin HCl (Vanco Iv Per Pharmacy) VANCOMYCIN PER PHARMACY PER PROTOCOL XX ; Start 10/13/18 at 15:00 Insulin Glargine (Lantus) 12 units DAILY@1200 SC Last administered on 10/17/18 11:56; Admin Dose 12 UNITS; Start 10/13/18 at 15:30 Vancomycin HCl 250 ml @ 125 mls/hr Q36H IVPB Last administered on 10/16/18at 17:12; Admin Dose 125 MLS/HR; Start 10/15/18 at 05:00 Morphine Sulfate (morphine) 2 mg Q4H PRN IV SEVERE PAIN LEVEL 7-10 Last administered on 10/16/18 09:04; Admin Dose 2 MG; Start 10/15/18 at 21:00 Insulin Aspart (Novolog Insulin Pen) (Adult SC Insulin - Mild Algorithm)... AC DINNER BEDTIME SC Last administered on 10/16/18at 22:00; Admin Dose 2 UNIT; Start 10/16/18 at 17:25 Miscellaneous Information (*Rx Drug Level Order Reminder*) VANCO TR AT 0400 0400 ONCE XX ; Start 10/18/18 at 04:00; Stop 10/18/18 at 04:01 Potassium Chloride/Dextrose/ Sod Cl 1,000 ml @ 60 mls/hr [id number] IV Last administered on 10/16/18at 15:50; Admin Dose 60 MLS/HR; Start 10/16/18 at 14:30 Collagenase (Santyl) 1 applic DAILY TOP ; Start 10/17/18 at 12:00 Alex Chávez DO Oct 17, 2018 14:09
[2018-10-17] MEDS ORDERED: MAGNESIUM SULFATE 2 GM/50 ML 50 ML IVPB ONE (14:30)
--- NOTE | 2018-10-17 14:49 | CONS ---
Assessment/Plan Assessment/Plan Assessment/Plan (Daily) No signs GI bleeding per RN. She had been agitated yesterday which was not baseline for her. She was started on seroquel. Lethargic. When I try to examine her she starts to scream. 1. Urinary tract infection. 2. Sepsis. 3. Status post coronary artery bypass graft. 4. Peripheral vascular disease. 5. Atrial fibrillation. 6. Status post surgery for renal cell carcinoma 8 years ago. 7. Diabetes. 8. Hypertension. 9. Severe anemia. -IV iron 10. Transaminitis -elevated ALT/AST -improving -CBD 7mm, t bili wnl. 11. Elevated CEA: 24.1 12. Chronic gastritis 13. S/P EGD 10/13 14. Fatty liver with possible hepatocellular disease noted on US PLAN: [facility] and for active GI bleeding She will need colonoscopy, pt and son refused NGT to clear pt bowels, poor prep with just tap water enemas Continue present care may order the Gastrografin study if patient and the family agrees Consultation Date/Type/Reason Admit Date/Time Oct 07, 2018 at 03:37 Initial Consult Date 10/07/18 Requesting Provider: JAGJIT MONTES MD Date/Time of Note DATE: 10/17/18 TIME: 14:49 24 HR Interval Summary Free Text/Dictation As per the son patient is eating much better Constitutional: improved Exam/Review of Systems Exam Vitals Vital Signs Date Temp Pulse Resp B/P (MAP) Pulse Ox O2 O2 Flow FiO2 Time Delivery Rate 10/17/18 97.3 63 18 130/50 100 Nasal 11:38 (76) Cannula 10/17/18 2.0 08:10 Intake and Output 10/16/18 10/16/18 10/17/18 1515:00 23:00 07:00 IntakeIntake Total 120 ml 810 ml 360 ml OutputOutput Total 250 ml 750 ml BalanceBalance 120 ml 560 ml -390 ml Constitutional: alert, oriented, well developed Psych: no complaints, nl mood/affect Head: normocephalic, atraumatic Eyes: nl conjunctiva, EOMI, nl lids, nl sclera, PERRL ENMT: nl external ears & nose, nl lips & teeth, nl nasal mucosa & septum Neck: supple, non-tender Respiratory: clear to auscultation, normal air movement Cardiovascular: regular rate and rhythm, nl pulses Gastrointestinal: soft, nl liver, spleen, non-tender Musculoskeletal: nl extremities to inspection, nl gait and stance Extremities: normal pulses Neurological: 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-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, nl mental status, nl speech, nl strength Skin: nl turgor; No rash or lesions Lymph: nl lymph nodes Results Result Diagram: 10/17/18 0533 10/17/18 0533 Results 24hrs Laboratory Tests Test 10/16/18 17:14 10/16/18 21:21 10/17/18 02:05 10/17/18 05:33 Bedside Glucose 108 215 212 White Blood Count 9.8 Red Blood Count 3.18 L Hemoglobin 8.5 L Hematocrit 28.2 L Mean Corpuscular 88.7 Volume Mean Corpuscular 26.7 L Hemoglobin Mean Corpuscular 30.1 L Hemoglobin Concent Red Cell 18.9 H Distribution Width Platelet Count 266 Mean Platelet Volume 9.8 Immature 0.600 H Granulocytes % Neutrophils % 72.1 Lymphocytes % 17.8 Monocytes % 7.9 Eosinophils % 1.4 Basophils % 0.2 Nucleated Red Blood 0.0 Cells % Immature 0.060 H Granulocytes # Neutrophils # 7.0 Lymphocytes # 1.7 Monocytes # 0.8 Eosinophils # 0.1 Basophils # 0.0 Nucleated Red Blood 0.0 Cells # Sodium Level 140 Potassium Level 4.0 Chloride Level 113 H Carbon Dioxide Level 24 Anion Gap 3 L Blood Urea Nitrogen 23 H Creatinine 0.92 Est Glomerular Filtrat Rate mL/min Glucose Level 194 # Calcium Level 8.4 Magnesium Level 1.7 Test 10/17/18 11:48 Bedside Glucose 216 Medications Medication Current Medications Allopurinol (Zyloprim) 100 mg BID PO Last administered on 10/17/18at 08:51; Admin Dose 100 MG; Start 10/07/18 at 21:00 Aspirin (Halfprin) 81 mg DAILY PO Last administered on 10/08/18at 08:14; Admin Dose 81 MG; Start 10/08/18 at 09:00; Status Hold Docusate Sodium (Colace) 100 mg TID PO Last administered on 10/17/18at 12:57; Admin Dose 100 MG; Start 10/07/18 at 21:00 Pantoprazole (Protonix Tab) 40 mg DAILY@06 PO Last administered on 10/17/18 06:10; Admin Dose 40 MG; Start 10/08/18 at 06:00 Ferrous Sulfate (Ferrous Sulfate (Ec)) 325 mg DAILY PO Last administered on 08:51; Admin Dose 325 MG; Start 10/08/18 at 09:00 IV Flush (NS 3 ml) 3 ml PER PROTOCOL IV ; Start 10/07/18 at 12:30 Ondansetron HCl (Zofran Inj) 4 mg Q6H PRN IV NAUSEA/VOMITING; Start 10/07/18 at 12:30 Acetaminophen (Tylenol Tab) 650 mg Q6H PRN PO .PAIN 1-3 OR TEMP Last administered on 10/16/18 18:56; Admin Dose 650 MG; Start 10/07/18 at 12:30 Acetaminophen/ Hydrocodone Bitart ([place] (5/325)) 1 tab Q6H PRN PO .PAIN 4-6 Last administered on 10/17/18 13:52; Admin Dose 1 TAB; Start 10/07/18 at 12:30 Clonidine (Catapres) 0.1 mg BID PO Last administered on 10/16/18 08:46; Admin Dose 0.1 MG; Start 10/07/18 at 22:00; Status Hold Diagnostic Test (Pha) (Accu-Chek) 1 ea 02 XX Last administered on 10/13/18at 02:00; Admin Dose 1 EA; Start 10/08/18 at 02:00 Miscellaneous Information 1 ea NOTE XX ; Start 10/07/18 at 21:00 Glucose (Glutose) 15 gm Q15M PRN PO DECREASED GLUCOSE; Start 10/07/18 at 21:00 Glucose (Glutose) 22.5 gm Q15M PRN PO DECREASED GLUCOSE; Start 10/07/18 at 21:00 Dextrose (D50w Syringe) 25 ml Q15M PRN IV DECREASED GLUCOSE; Start 10/07/18 at 21:00 Dextrose (D50w Syringe) 50 ml Q15M PRN IV DECREASED GLUCOSE; Start 10/07/18 at 21:00 Glucagon (Glucagen) 1 mg Q15M PRN IM DECREASED GLUCOSE; Start 10/07/18 at 21:00 Glucose (Glutose) 15 gm Q15M PRN BUCCAL DECREASED GLUCOSE; Start 10/07/18 at 21:00 Meropenem/Sodium Chloride 50 ml @ 100 mls/hr Q12 IVPB Last administered on 10/17/18 08:51; Admin Dose 100 MLS/HR; Start 10/09/18 at 12:00 Collagenase (Santyl) 1 applic DAILY TOP Last administered on 10/17/18 08:51; Admin Dose 1 APPLIC; Start 10/09/18 at 19:00 Sodium Hypochlorite (Dakins Diluted ()) 1 applic DAILY TP Last administered on 10/16/18 08:47; Admin Dose 1 APPLIC; Start 10/11/18 at 09:00 Caspofungin 50 mg/ Sodium Chloride 250 ml @ 250 mls/hr Q24H IVPB Last administered on 10/17/18 11:45; Admin Dose 250 MLS/HR; Start 10/12/18 at 11:00 Quetiapine Fumarate (Seroquel) 25 mg BID@0900,1200 PO Last administered on 10/17/18 11:49; Admin Dose 25 MG; Start 10/11/18 at 12:00 Quetiapine Fumarate (Seroquel) 50 mg HS PO Last administered on 10/16/18 21:0 2; Admin Dose 50 MG; Start 10/11/18 at 21:00 Vancomycin HCl (Vanco Iv Per Pharmacy) VANCOMYCIN PER PHARMACY PER PROTOCOL XX ; Start 10/13/18 at 15:00 Insulin Glargine (Lantus) 12 units DAILY@1200 SC Last administered on 10/17/18 11:56; Admin Dose 12 UNITS; Start 10/13/18 at 15:30 Vancomycin HCl 250 ml @ 125 mls/hr Q36H IVPB Last administered on 10/16/18 17:12; Admin Dose 125 MLS/HR; Start 10/15/18 at 05:00 Morphine Sulfate (morphine) 2 mg Q4H PRN IV SEVERE PAIN LEVEL 7-10 Last administered on 10/16/18 09:04; Admin Dose 2 MG; Start 10/15/18 at 21:00 Insulin Aspart (Novolog Insulin Pen) (Adult SC Insulin - Mild Algorithm)... AC DINNER BEDTIME SC Last administered on 10/16/18 22:00; Admin Dose 2 UNIT; Start 10/16/18 at 17:25 Miscellaneous Information (*Rx Drug Level Order Reminder*) VANCO TR AT 0400 0400 ONCE XX ; Start 10/18/18 at 04:00; Stop 10/18/18 at 04:01 Potassium Chloride/Dextrose/ Sod Cl 1,000 ml @ 60 mls/hr [id number] IV Last administered on 10/16/18at 15:50; Admin Dose 60 MLS/HR; Start 10/16/18 at 14:30 Collagenase (Santyl) 1 applic DAILY TOP ; Start 10/17/18 at 12:00 Magnesium Sulfate 50 ml @ 25 mls/hr ONCE ONCE IVPB ; Start 10/17/18 at 14:30; Stop 10/17/18 at 16:29 VELIA CASTRO MD Oct 17, 2018 14:49
[2018-10-17 15:49] VITALS: BP 109/46; PULSE 66; RESP 18
[2018-10-17] MEDS: INSULIN ASPART [NOVOLOG] 3 ML PEN SC SCH ×2 (17:32→21:46)
--- NOTE | 2018-10-17 19:11 | PN ---
Date/Time of Note Date/Time of Note DATE: 10/17/18 TIME: 19:10 Assessment/Plan Lines/Catheters IV Catheter Type (from Nrsg): Peripheral IV Odonnell in Place (from Nrsg): Yes Assessment/Plan Assessment/Plan Left leg wound after vascular surgery thrombectomy we will continue local wound care antibiotics may need surgical debridement Subjective 24 Hr Interval Summary Constitutional: improved Pain Control: mild Exam/Review of Systems Vital Signs Vitals Vital Signs Date Temp Pulse Resp B/P (MAP) Pulse Ox O2 O2 Flow FiO2 Time Delivery Rate 10/17/18 97.4 66 18 109/46 100 Nasal 15:49 (67) Cannula 10/17/18 2.0 14:53 Intake and Output 10/16/18 10/16/18 10/17/18 1414:59 22:59 06:59 IntakeIntake Total 120 ml 810 ml 360 ml OutputOutput Total 250 ml 750 ml BalanceBalance 120 ml 560 ml -390 ml Exam Eyes: nl conjunctiva, EOMI, nl lids, nl sclera ENMT: nl external ears & nose, nl lips & teeth, nl nasal mucosa & septum, mucosa pink and moist Neck: supple, non-tender Respiratory: clear to auscultation, normal air movement Cardiovascular: regular rate and rhythm, nl pulses Musculoskeletal: nl extremities to inspection, nl gait and stance Additional Comments Left leg wound noted there is a 5 x 5 cm area of opening with minimal drainage and the wound is granulating with some eschar Results Result Diagram: 10/17/18 0533 10/17/18 0533 KELLEY GARY MD Oct 17, 2018 19:11
[2018-10-17 19:48] VITALS: BP 94/39; PULSE 71; RESP 18
[2018-10-17 23:51] VITALS: BP 102/43; PULSE 72; RESP 18
[2018-10-18] MEDS: ACCU-CHEK XX SCH (02:00)
[2018-10-18 04:04] VITALS: BP 122/55; PULSE 67; RESP 18
[2018-10-18] MEDS: VANCOMYCIN 1 GM 250 ML IVPB SCH (04:39)
[2018-10-18] MEDS: D5W-0.45 NACL + KCL 20 MEQ 1,000 ML IV SCH (04:40)
[2018-10-18] MEDS: PANTOPRAZOLE (EC) 40 MG TAB PO SCH (05:53)
[2018-10-18 07:06] VITALS: BP 112/59; PULSE 70; RESP 16
--- NOTE | 2018-10-18 07:09 | CONS ---
Assessment/Plan Assessment/Plan Hospital Course (Demo Recall) 82 yo female with hl/o anemia 1. Urinary tract infection. 2. Sepsis. -gram positive rods in foot wound cx. -pos urine cx 3. Status post coronary artery bypass graft. 4. Peripheral vascular disease. 5. Atrial fibrillation. 6. Status post surgery for renal cell carcinoma 8 years ago. 7. Diabetes. 8. Hypertension. 9. Severe anemia. -IV iron 10. Transaminitis -elevated ALT/AST -improving -CBD 7mm, t bili wnl. 11. Elevated CEA: 24.1 12. Chronic gastritis 13. S/P EGD 10/13 14. Fatty liver with possible hepatocellular disease noted on US PLAN: Pt needs colonoscopy at some point if patient can tolerate bowel prep [facility] and for active GI bleeding Gastric pathology unremarkable Gastrografin study if pt tolerates PO or NGT, thus far family and pt refuse NGT. Pt examined and plan of care d/w Dr. Winkler Consultation Date/Type/Reason Admit Date/Time Oct 07, 2018 at 03:37 Initial Consult Date 10/07/18 Requesting Provider: JAGJIT MONTES MD Date/Time of Note DATE: 10/18/18 TIME: 07:06 24 HR Interval Summary Free Text/Dictation No signs of GI bleeding. There is blood in wound vac from RLE. 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 Exam/Review of Systems Exam Vitals Vital Signs Date Temp Pulse Resp B/P (MAP) Pulse Ox O2 O2 Flow FiO2 Time Delivery Rate 10/18/18 98.0 67 18 122/55 100 Nasal 04:04 (77) Cannula 10/18/18 2.0 01:41 Intake and Output 10/17/18 10/17/18 10/18/18 1515:00 23:00 07:00 IntakeIntake Total 300 ml 410 ml 50 ml OutputOutput Total 450 ml 800 ml BalanceBalance 300 ml -40 ml -750 ml Head: normocephalic Eyes: nl sclera, PERRL Respiratory: normal air movement Cardiovascular: regular rate and rhythm Gastrointestinal: soft, tender Extremities: other (RLE with gauze, dry, wound vac with sanginous output) Results Result Diagram: 10/18/18 0357 10/18/18 0357 Results 24hrs Laboratory Tests Test 10/17/18 11:48 10/17/18 17:27 10/17/18 21:17 10/18/18 03:57 Bedside Glucose 216 250 H 267 H White Blood Count 8.8 Red Blood Count 3.01 L Hemoglobin 8.1 L Hematocrit 26.4 L Mean Corpuscular 87.7 Volume Mean Corpuscular 26.9 L Hemoglobin Mean Corpuscular 30.7 L Hemoglobin Concent Red Cell 18.8 H Distribution Width Platelet Count 248 Mean Platelet Volume 9.4 Immature 0.300 Granulocytes % Neutrophils % 61.6 Lymphocytes % 26.6 Monocytes % 9.5 Eosinophils % 1.8 Basophils % 0.2 Nucleated Red Blood 0.0 Cells % Immature 0.030 Granulocytes # Neutrophils # 5.4 Lymphocytes # 2.3 Monocytes # 0.8 Eosinophils # 0.2 Basophils # 0.0 Nucleated Red Blood 0.0 Cells # Sodium Level 139 Potassium Level 4.0 Chloride Level 114 H Carbon Dioxide Level 23 Anion Gap 2 L Blood Urea Nitrogen 21 H Creatinine 1.03 H Est Glomerular Filtrat Rate mL/min Glucose Level 164 Calcium Level 8.2 L Vancomycin Level 15.9 Trough Medications Medication Current Medications Allopurinol (Zyloprim) 100 mg BID PO Last administered on 10/17/18at 21:19; Admin Dose 100 MG; Start 10/07/18 at 21:00 Aspirin (Halfprin) 81 mg DAILY PO Last administered on 10/08/18at 08:14; Admin Dose 81 MG; Start 10/08/18 at 09:00; Status Hold Docusate Sodium (Colace) 100 mg TID PO Last administered on 10/17/18at 21:19; Admin Dose 100 MG; Start 10/07/18 at 21:00 Pantoprazole (Protonix Tab) 40 mg DAILY@06 PO Last administered on 10/18/18at 05:53; Admin Dose 40 MG; Start 10/08/18 at 06:00 IV Flush (NS 3 ml) 3 ml PER PROTOCOL IV ; Start 10/07/18 at 12:30 Ondansetron HCl (Zofran Inj) 4 mg Q6H PRN IV NAUSEA/VOMITING; Start 10/07/18 at 12:30 Acetaminophen (Tylenol Tab) 650 mg Q6H PRN PO .PAIN 1-3 OR TEMP Last administered on 10/16/18at 18:56; Admin Dose 650 MG; Start 10/07/18 at 12:30 Acetaminophen/ Hydrocodone Bitart ([place] (5/325)) 1 tab Q6H PRN PO .PAIN 4-6 Last administered on 10/17/18at 21:19; Admin Dose 1 TAB; Start 10/07/18 at 12:30 Clonidine (Catapres) 0.1 mg BID PO Last administered on 10/16/18 08:46; Admin Dose 0.1 MG; Start 10/07/18 at 22:00; Status Hold Diagnostic Test (Pha) (Accu-Chek) 1 ea 02 XX Last administered on 10/13/18at 02:00; Admin Dose 1 EA; Start 10/08/18 at 02:00 Miscellaneous Information 1 ea NOTE XX ; Start 10/07/18 at 21:00 Glucose (Glutose) 15 gm Q15M PRN PO DECREASED GLUCOSE; Start 10/07/18 at 21:00 Glucose (Glutose) 22.5 gm Q15M PRN PO DECREASED GLUCOSE; Start 10/07/18 at 21:00 Dextrose (D50w Syringe) 25 ml Q15M PRN IV DECREASED GLUCOSE; Start 10/07/18 at 21:00 Dextrose (D50w Syringe) 50 ml Q15M PRN IV DECREASED GLUCOSE; Start 10/07/18 at 21:00 Glucagon (Glucagen) 1 mg Q15M PRN IM DECREASED GLUCOSE; Start 10/07/18 at 21:00 Glucose (Glutose) 15 gm Q15M PRN BUCCAL DECREASED GLUCOSE; Start 10/07/18 at 21:00 Meropenem/Sodium Chloride 50 ml @ 100 mls/hr Q12 IVPB Last administered on 10/17/18at 21:19; Admin Dose 100 MLS/HR; Start 10/09/18 at 12:00 Collagenase (Santyl) 1 applic DAILY TOP Last administered on 10/17/18 08:51; Admin Dose 1 APPLIC; Start 10/09/18 at 19:00 Sodium Hypochlorite (Dakins Diluted ()) 1 applic DAILY TP Last administered on 10/16/18 08:47; Admin Dose 1 APPLIC; Start 10/11/18 at 09:00 Caspofungin 50 mg/ Sodium Chloride 250 ml @ 250 mls/hr Q24H IVPB Last administered on 10/17/18 11:45; Admin Dose 250 MLS/HR; Start 10/12/18 at 11:00 Quetiapine Fumarate (Seroquel) 25 mg BID@0900,1200 PO Last administered on 09/29 11:49; Admin Dose 25 MG; Start 10/11/18 at 12:00 Quetiapine Fumarate (Seroquel) 50 mg HS PO Last administered on 10/17/18 21:19; Admin Dose 50 MG; Start 10/11/18 at 21:00 Vancomycin HCl (Vanco Iv Per Pharmacy) VANCOMYCIN PER PHARMACY PER PROTOCOL XX ; Start 10/13/18 at 15:00 Insulin Glargine (Lantus) 12 units DAILY@1200 SC Last administered on 10/17/18 11:56; Admin Dose 12 UNITS; Start 10/13/18 at 15:30 Vancomycin HCl 250 ml @ 125 mls/hr Q36H IVPB Last administered on 10/18/18 04:39; Admin Dose 125 MLS/HR; Start 10/15/18 at 05:00 Morphine Sulfate (morphine) 2 mg Q4H PRN IV SEVERE PAIN LEVEL 7-10 Last administered on 10/16/18 09:04; Admin Dose 2 MG; Start 10/15/18 at 21:00 Insulin Aspart (Novolog Insulin Pen) (Adult SC Insulin - Mild Algorithm)... AC DINNER BEDTIME SC Last administered on 10/17/18 21:46; Admin Dose 4 UNIT; Start 10/16/18 at 17:25 Potassium Chloride/Dextrose/ Sod Cl 1,000 ml @ 30 mls/hr Q24H IV Last administered on 10/17/18 21:38; Admin Dose 30 MLS/HR; Start 10/16/18 at 14:30 Collagenase (Santyl) 1 applic DAILY TOP ; Start 10/17/18 at 12:00 MART CALDERON Oct 18, 2018 07:09
[2018-10-18] MEDS: MEROPENEM 500MG/50 ML (PMX) 50 ML IVPB SCH (08:36)
[2018-10-18] MEDS: COLLAGENASE 5 GM (UD JAR) TOP SCH ×2 (08:37→08:38)
[2018-10-18] MEDS: ALLOPURINOL 100 MG TAB PO SCH ×2 (08:37→20:54)
[2018-10-18] MEDS: DOCUSATE SODIUM 100 MG CAP PO SCH ×3 (08:37→20:54)
[2018-10-18] MEDS: DAKINS 0.0125%(1/40) 473 ML SOLUTION TP SCH (08:38)
--- NOTE | 2018-10-18 08:44 | CONS ---
Assessment/Plan Assessment/Plan Assessment/Plan (Daily) 1. acute hyperkalemia due to BRANDON resolved 2 .acute kidney injury on CKD III due to ATN from sepsis + prerenal azotemia- Improving 3. Sepsis due to UTI and PNA 4. acute UTI 5. H/o partial nephrectomy possibly due to RCC as per family 6. H/o CAD s/p CABG , Cardiomyopathy with EF 50%, Chronic Systolic HF, 7. H/O HTN 8. h/o DM II 9. Paroxysmal atrial fibrillation 10. acute encephalpahty possibly due to uremic and metabolic encephalopathy 11. 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 H/o HTN 13. H/o DM II 14. h/O paroxysmal atrial fibrillation Plan: BUN/Cr improved to 21/1.03- other electrolytes stable on IV abx cancida, Vancomycin and Meropenem, Renally michelle all abx and monitor electrolytes Renal US showed No hydronephrosis. No nephrolithiasis.- 3.1 x 2 x 2.1 centimeter hypoechoic lesion arising from the lower pole of the left kidney. Follow-up to exclude neoplasm. There is echogenic material layering within the dependent portion of the bladder. Follow up to exclude infectious, inflammatory, or neoplastic process.- Atrophic left kidney- Family refused MRI abdomen will follow up Consultation Date/Type/Reason Admit Date/Time Oct 07, 2018 at 03:37 Initial Consult Date 10/07/18 Type of Consult NEPHROLOGY Requesting Provider: JAGJIT MONTES MD Date/Time of Note DATE: 10/18/18 TIME: 08:44 Exam/Review of Systems Exam Vitals Vital Signs Date Temp Pulse Resp B/P (MAP) Pulse Ox O2 O2 Flow FiO2 Time Delivery Rate 10/18/18 98.2 70 16 112/59 100 Nasal 07:06 (76) Cannula 10/18/18 2.0 01:41 Intake and Output 10/17/18 10/17/18 10/18/18 1414:59 22:59 06:59 IntakeIntake Total 300 ml 410 ml 50 ml OutputOutput Total 450 ml 800 ml BalanceBalance 300 ml -40 ml -750 ml Results Result Diagram: 10/18/18 0357 10/18/18 0357 Results 24hrs Laboratory Tests Test 10/17/18 11:48 10/17/18 17:27 10/17/18 21:17 10/18/18 03:57 Bedside Glucose 216 250 H 267 H White Blood Count 8.8 Red Blood Count 3.01 L Hemoglobin 8.1 L Hematocrit 26.4 L Mean Corpuscular 87.7 Volume Mean Corpuscular 26.9 L Hemoglobin Mean Corpuscular 30.7 L Hemoglobin Concent Red Cell 18.8 H Distribution Width Platelet Count 248 Mean Platelet Volume 9.4 Immature 0.300 Granulocytes % Neutrophils % 61.6 Lymphocytes % 26.6 Monocytes % 9.5 Eosinophils % 1.8 Basophils % 0.2 Nucleated Red Blood 0.0 Cells % Immature 0.030 Granulocytes # Neutrophils # 5.4 Lymphocytes # 2.3 Monocytes # 0.8 Eosinophils # 0.2 Basophils # 0.0 Nucleated Red Blood 0.0 Cells # Sodium Level 139 Potassium Level 4.0 Chloride Level 114 H Carbon Dioxide Level 23 Anion Gap 2 L Blood Urea Nitrogen 21 H Creatinine 1.03 H Est Glomerular Filtrat Rate mL/min Glucose Level 164 Calcium Level 8.2 L Vancomycin Level 15.9 Trough Medications Medication Current Medications Allopurinol (Zyloprim) 100 mg BID PO Last administered on 10/17/18at 21:19; Admin Dose 100 MG; Start 10/07/18 at 21:00 Aspirin (Halfprin) 81 mg DAILY PO Last administered on 10/08/18at 08:14; Admin Dose 81 MG; Start 10/08/18 at 09:00; Status Hold Docusate Sodium (Colace) 100 mg TID PO Last administered on 10/17/18at 21:19; Admin Dose 100 MG; Start 10/07/18 at 21:00 Pantoprazole (Protonix Tab) 40 mg DAILY@06 PO Last administered on 10/18/18at 05:53; Admin Dose 40 MG; Start 10/08/18 at 06:00 IV Flush (NS 3 ml) 3 ml PER PROTOCOL IV ; Start 10/07/18 at 12:30 Ondansetron HCl (Zofran Inj) 4 mg Q6H PRN IV NAUSEA/VOMITING; Start 10/07/18 at 12:30 Acetaminophen (Tylenol Tab) 650 mg Q6H PRN PO .PAIN 1-3 OR TEMP Last administered on 10/16/18at 18:56; Admin Dose 650 MG; Start 10/07/18 at 12:30 Acetaminophen/ Hydrocodone Bitart ([place] (5/325)) 1 tab Q6H PRN PO .PAIN 4-6 Last administered on 10/17/18 21:19; Admin Dose 1 TAB; Start 10/07/18 at 12:30 Clonidine (Catapres) 0.1 mg BID PO Last administered on 10/16/18 08:46; Admin Dose 0.1 MG; Start 10/07/18 at 22:00; Status Hold Diagnostic Test (Pha) (Accu-Chek) 1 ea 02 XX Last administered on 10/13/18at 02:00; Admin Dose 1 EA; Start 10/08/18 at 02:00 Miscellaneous Information 1 ea NOTE XX ; Start 10/07/18 at 21:00 Glucose (Glutose) 15 gm Q15M PRN PO DECREASED GLUCOSE; Start 10/07/18 at 21:00 Glucose (Glutose) 22.5 gm Q15M PRN PO DECREASED GLUCOSE; Start 10/07/18 at 21:00 Dextrose (D50w Syringe) 25 ml Q15M PRN IV DECREASED GLUCOSE; Start 10/07/18 at 21:00 Dextrose (D50w Syringe) 50 ml Q15M PRN IV DECREASED GLUCOSE; Start 10/07/18 at 21:00 Glucagon (Glucagen) 1 mg Q15M PRN IM DECREASED GLUCOSE; Start 10/07/18 at 21:00 Glucose (Glutose) 15 gm Q15M PRN BUCCAL DECREASED GLUCOSE; Start 10/07/18 at 21:00 Meropenem/Sodium Chloride 50 ml @ 100 mls/hr Q12 IVPB Last administered on 10/17/18 21:19; Admin Dose 100 MLS/HR; Start 10/09/18 at 12:00 Collagenase (Santyl) 1 applic DAILY TOP Last administered on 10/17/18 08:51; Admin Dose 1 APPLIC; Start 10/09/18 at 19:00 Sodium Hypochlorite (Dakins Diluted ()) 1 applic DAILY TP Last administered on 10/16/18 08:47; Admin Dose 1 APPLIC; Start 10/11/18 at 09:00 Caspofungin 50 mg/ Sodium Chloride 250 ml @ 250 mls/hr Q24H IVPB Last administered on 10/17/18 11:45; Admin Dose 250 MLS/HR; Start 10/12/18 at 11:00 Quetiapine Fumarate (Seroquel) 25 mg BID@0900,1200 PO Last administered on 10/17/18 11:49; Admin Dose 25 MG; Start 10/11/18 at 12:00 Quetiapine Fumarate (Seroquel) 50 mg HS PO Last administered on 10/17/18 21 :19; Admin Dose 50 MG; Start 10/11/18 at 21:00 Vancomycin HCl (Vanco Iv Per Pharmacy) VANCOMYCIN PER PHARMACY PER PROTOCOL XX ; Start 10/13/18 at 15:00 Insulin Glargine (Lantus) 12 units DAILY@1200 SC Last administered on 10/17/18 11:56; Admin Dose 12 UNITS; Start 10/13/18 at 15:30 Vancomycin HCl 250 ml @ 125 mls/hr Q36H IVPB Last administered on 10/18/18 04:39; Admin Dose 125 MLS/HR; Start 10/15/18 at 05:00 Morphine Sulfate (morphine) 2 mg Q4H PRN IV SEVERE PAIN LEVEL 7-10 Last administered on 10/16/18 09:04; Admin Dose 2 MG; Start 10/15/18 at 21:00 Insulin Aspart (Novolog Insulin Pen) (Adult SC Insulin - Mild Algorithm)... AC DINNER BEDTIME SC Last administered on 10/17/18 21:46; Admin Dose 4 UNIT; Start 10/16/18 at 17:25 Potassium Chloride/Dextrose/ Sod Cl 1,000 ml @ 30 mls/hr Q24H IV Last administered on 10/17/18 21:38; Admin Dose 30 MLS/HR; Start 10/16/18 at 14:30 Collagenase (Santyl) 1 applic DAILY TOP ; Start 10/17/18 at 12:00 EVA TREJO MD Oct 18, 2018 08:44
[2018-10-18] MEDS: QUETIAPINE 25 MG TAB PO SCH ×3 (08:46→20:55)
[2018-10-18] MEDS: CASPOFUNGIN 50 MG in SOD CHLORIDE 0.9% 250 ML IVPB SCH (10:51)
[2018-10-18 11:22] VITALS: BP 143/75; PULSE 69; RESP 18
--- NOTE | 2018-10-18 11:48 | CONS ---
Assessment/Plan Assessment/Plan Hospital Course (Demo Recall) ID PROGRESS NOTE CURRENT ABX: DAY # 10 => Vanco IV + Merrem + Cancidas 24H INTERVAL SUMMARY * DIAGNOSTIC IMAGING * 10/12/18 CT FOOT: 1. Slight cortical erosive change appears to be present in volving the calcaneal tuberosity that may reflect osteomyelitis with the given history.2. Mild to moderate midfoot arthrosis.3. MRI may be helpful for further evaluation of osteomyelitis if warranted. * 10/10/18 BLEXT ARTERIAL DUPLEX: Scattered calcific plaquing. No hemodynam ically significant stenosis or occlusion. Bilateral small vessel disease within both trifurcation vessels. MICRO * * 10/15/18 RIGHT FOOT CX: ANAEROBIC CULTURE Final No growth at 3 days * 10/15/18 RIGHT FOOT CX: WOUND CULTURE Final Organism 1 PROTEUS MIRABILIS QUANTITY ISOLATED FROM BROTH ONLY P. MIRAB M.I.C. RX --------- --- AMPICILLIN <=2 S CEFOTAXIME S CIPROFLOXACIN <=0.25 S GENTAMICIN <=1 S LEVOFLOXACIN <=0.12 S TOBRAMYCIN <=1 S TRIMETHOPRIM/SULFAMETHOXAZOLE <=20 S * 10/07/18 Straight cath URINE CULTURE Final Organism 1 ARABELLA GLABRATA COLONY COUNT >100,000 CFU/ml * 10/07/18 BCX (-) * 10/07/18 URINE CULTURE Final Organism 1 KLEBSIELLA OXYTOCA COLONY COUNT >100,000 CFU/ml Organism 2 PSEUDOMONAS AERUGINOSA COLONY COUNT >100,000 CFU/ml PHYSICAL EXAMINATION: GENERAL: VSS, NAD HEENT: AT, NC, NECK: Supple, CHEST: Rise symmetrical HEART: Pulse RRR ABDOMEN: Benign EXTREMITIES: Warm, dry SKIN: No rash, no diaphoresis ID ASSESSMENT 82 yo F admit with: 1. S/p sepsis, present on admission 2. Gram-negative melvi/yeast UTI 3. Acute on chronic anemia 4. Coronary artery disease with a history of CABG 5. Echo dense structure seen by tricuspid valve, right atrium and IVC-thrombus, vegetation versus tumor=== completed 6 weeks IV antibiotics> 6. History of renal cell carcinoma status post nephrectomy 7. DM2 with peripheral neuropathy 8. PAD 9. R heel osteomyelitis status post debridement * Right heel decubitus ulceration stage 4 * Right foot osteomyelitis * Right 5th digit skin lesion 10.Left lower extremity ulceration (-)MRSA Nares ABX ALLERGIES: KNDA INVASIVES: PIV CURRENT ABX: DAY # 10 =>Vanco IV + Merrem + Cancidas ID RECOMMENDATIONS/PLAN: 1. DC Merrem -- change to Ceftriaxone 2gm IV daily to complete 42 days == 32 more days 2. Continue Vanco IV to complete 42 days = 32 more days 3. DC Merrem -- has completed 10 days for poly-GNR UTI 4. DC Cancidas -- has completed 10 days for yeast uti 5. MAY DC TO SNF ON VANCO IV + CEFTRIAXONE until last day = NOVEMBER 18, [address] PICC . Consultation Date/Type/Reason Admit Date/Time Oct 07, 2018 at 03:37 Initial Consult Date 10/10/18 Requesting Provider: JAGJIT MONTES MD Date/Time of Note DATE: 10/18/18 TIME: 11:47 Exam/Review of Systems Exam Vitals Vital Signs Date Temp Pulse Resp B/P (MAP) Pulse Ox O2 O2 Flow FiO2 Time Delivery Rate 10/18/18 98.3 69 18 99 Room Air 11:22 10/18/18 2.0 08:00 Intake and Output 10/17/18 10/17/18 10/18/18 1515:00 23:00 07:00 IntakeIntake Total 300 ml 410 ml 50 ml OutputOutput Total 450 ml 800 ml BalanceBalance 300 ml -40 ml -750 ml Results Result Diagram: 10/18/18 0357 10/18/18 0357 Results 24hrs Laboratory Tests Test 10/17/18 11:48 10/17/18 17:27 10/17/18 21:17 10/18/18 03:57 Bedside Glucose 216 250 H 267 H White Blood Count 8.8 Red Blood Count 3.01 L Hemoglobin 8.1 L Hematocrit 26.4 L Mean Corpuscular 87.7 Volume Mean Corpuscular 26.9 L Hemoglobin Mean Corpuscular 30.7 L Hemoglobin Concent Red Cell 18.8 H Distribution Width Platelet Count 248 Mean Platelet Volume 9.4 Immature 0.300 Granulocytes % Neutrophils % 61.6 Lymphocytes % 26.6 Monocytes % 9.5 Eosinophils % 1.8 Basophils % 0.2 Nucleated Red Blood 0.0 Cells % Immature 0.030 Granulocytes # Neutrophils # 5.4 Lymphocytes # 2.3 Monocytes # 0.8 Eosinophils # 0.2 Basophils # 0.0 Nucleated Red Blood 0.0 Cells # Sodium Level 139 Potassium Level 4.0 Chloride Level 114 H Carbon Dioxide Level 23 Anion Gap 2 L Blood Urea Nitrogen 21 H Creatinine 1.03 H Est Glomerular Filtrat Rate mL/min Glucose Level 164 Calcium Level 8.2 L Vancomycin Level 15.9 Trough Medications Medication Current Medications Allopurinol (Zyloprim) 100 mg BID PO Last administered on 10/18/18 08:37; Admin Dose 100 MG; Start 10/07/18 at 21:00 Aspirin (Halfprin) 81 mg DAILY PO Last administered on 10/08/18 08:14; Admin Dose 81 MG; Start 10/08/18 at 09:00; Status Hold Docusate Sodium (Colace) 100 mg TID PO Last administered on 10/18/18 08:37; Admin Dose 100 MG; Start 10/07/18 at 21:00 Pantoprazole (Protonix Tab) 40 mg DAILY@06 PO Last administered on 10/18/18 05:53; Admin Dose 40 MG; Start 10/08/18 at 06:00 IV Flush (NS 3 ml) 3 ml PER PROTOCOL IV ; Start 10/07/18 at 12:30 Ondansetron HCl (Zofran Inj) 4 mg Q6H PRN IV NAUSEA/VOMITING; Start 10/07/18 at 12:30 Acetaminophen (Tylenol Tab) 650 mg Q6H PRN PO .PAIN 1-3 OR TEMP Last administered on 10/16/18 18:56; Admin Dose 650 MG; Start 10/07/18 at 12:30 Acetaminophen/ Hydrocodone Bitart ([place] (5/325)) 1 tab Q6H PRN PO .PAIN 4-6 Last administered on 10/17/18 21:19; Admin Dose 1 TAB; Start 10/07/18 at 12:30 Clonidine (Catapres) 0.1 mg BID PO Last administered on 10/16/18 08:46; Admin Dose 0.1 MG; Start 10/07/18 at 22:00; Status Hold Diagnostic Test (Pha) (Accu-Chek) 1 ea 02 XX Last administered on 10/13/18 02:00; Admin Dose 1 EA; Start 10/08/18 at 02:00 Miscellaneous Information 1 ea NOTE XX ; Start 10/07/18 at 21:00 Glucose (Glutose) 15 gm Q15M PRN PO DECREASED GLUCOSE; Start 10/07/18 at 21:00 Glucose (Glutose) 22.5 gm Q15M PRN PO DECREASED GLUCOSE; Start 10/07/18 at 21:00 Dextrose (D50w Syringe) 25 ml Q15M PRN IV DECREASED GLUCOSE; Start 10/07/18 at 21:00 Dextrose (D50w Syringe) 50 ml Q15M PRN IV DECREASED GLUCOSE; Start 10/07/18 at 21:00 Glucagon (Glucagen) 1 mg Q15M PRN IM DECREASED GLUCOSE; Start 10/07/18 at 21:00 Glucose (Glutose) 15 gm Q15M PRN BUCCAL DECREASED GLUCOSE; Start 10/07/18 at 21:00 Meropenem/Sodium Chloride 50 ml @ 100 mls/hr Q12 IVPB Last administered on 10/18/18at 08:36; Admin Dose 100 MLS/HR; Start 10/09/18 at 12:00 Collagenase (Santyl) 1 applic DAILY TOP Last administered on 10/18/18at 08:37; Admin Dose 1 APPLIC; Start 10/09/18 at 19:00 Sodium Hypochlorite (Dakins Diluted ()) 1 applic DAILY TP Last administered on 10/18/18at 08:38; Admin Dose 1 APPLIC; Start 10/11/18 at 09:00 Caspofungin 50 mg/ Sodium Chloride 250 ml @ 250 mls/hr Q24H IVPB Last administered on 10/18/18at 10:51; Admin Dose 250 MLS/HR; Start 10/12/18 at 11:00 Quetiapine Fumarate (Seroquel) 25 mg BID@0900,1200 PO Last administered on 10/18/18at 08:46; Admin Dose 25 MG; Start 10/11/18 at 12:00 Quetiapine Fumarate (Seroquel) 50 mg HS PO Last administered on 10/17/18at 21:19; Admin Dose 50 MG; Start 10/11/18 at 21:00 Vancomycin HCl (Vanco Iv Per Pharmacy) VANCOMYCIN PER PHARMACY PER PROTOCOL XX ; Start 10/13/18 at 15:00 Insulin Glargine (Lantus) 12 units DAILY@1200 SC Last administered on 10/17/18at 11:56; Admin Dose 12 UNITS; Start 10/13/18 at 15:30 Vancomycin HCl 250 ml @ 125 mls/hr Q36H IVPB Last administered on 10/18/18 04:39; Admin Dose 125 MLS/HR; Start 10/15/18 at 05:00 Morphine Sulfate (morphine) 2 mg Q4H PRN IV SEVERE PAIN LEVEL 7-10 Last administered on 10/16/18 09:04; Admin Dose 2 MG; Start 10/15/18 at 21:00 Insulin Aspart (Novolog Insulin Pen) (Adult SC Insulin - Mild Algorithm)... AC DINNER BEDTIME SC Last administered on 10/17/18 21:46; Admin Dose 4 UNIT; Start 10/16/18 at 17:25 Potassium Chloride/Dextrose/ Sod Cl 1,000 ml @ 30 mls/hr Q24H IV Last administered on 10/17/18 21:38; Admin Dose 30 MLS/HR; Start 10/16/18 at 14:30 Collagenase (Santyl) 1 applic DAILY TOP Last administered on 10/18/18 08:38; Admin Dose 1 APPLIC; Start 10/17/18 at 12:00 DICKSON JIMENEZ NP Oct 18, 2018 11:48
[2018-10-18] MEDS: INSULIN GLARGINE [LANTus] (100 UNITS/ML) SYG SC SCH (11:57)
[2018-10-18] MEDS: morphine 2 MG INJ IV PRN (11:58)
--- NOTE | 2018-10-18 12:20 | PN ---
Date/Time of Note Date/Time of Note DATE: 10/18/18 TIME: 12:18 Assessment/Plan VTE Prophylaxis Risk [place] [facility] [place] risk: 7 SCD applied (from [facility] [place] No SCD contraindicated: other Pharmacological prophylaxis: other Pharm contraindication: other Lines/Catheters IV C[facility]ter Type (from [facility]): Peripheral IV Urinary Cath still in place: Yes Reason Cath still needed: urinary retention Assessment/Plan Assessment/Plan -Chronic gastritis per EGD, continue PPI. -Anemia, history of emesis at home and loss of appetite. Dr. Winkler is following in gastroenterology consultation. Colonoscopy recommended however patient is unable to take p.o. prep, patient's son refused NG tube placement. -Sepsis secondary to urinary tract infection and possible early pneumonia, resolving. Continue antibiotics per ID. Dr. Elias is following in infection disease consultation. -UTI. Continue antibiotics per ID. -Hyperkalemia, resolved, status post treatment -Acute kidney injury, continue gentle hydration, monitor BUN and creatinine. Dr. Arreaga is following in nephrology consultation. -Hypertension -Systolic congestive heart failure. Dr. Chávez is following in cardiology consultation. -Cardiomyopathy with ejection fraction 50% -Atrial fibrillation, patient did not tolerate anticoagulation in the past due to bleeding and anemia, patient was on aspirin which is currently held due significant drop in hemoglobin. -Coronary artery disease, status post CABG -Diabetes mellitus type 2, continue Lantus and pre-meal NovoLog. -History of endocarditis, status post treatment -Sacral, right foot, and left garcia wounds present on admission. Continue current care per wound care recommendations. -Right heel wound with early osteomyelitis, status post debridement and application of allograft and wound VAC on 10/15/2018, Dr. Garland is following and podiatry consultation -History of left femoral artery thrombectomy, left garcia open wound. - per Dr. Dawson in vascular surgery consultation for evaluation of left garcia wound. Further recommendations based on clinical course. Plan of care discussed with Dr. Mi. Result Diagram: 10/18/18 0357 10/18/18 0357 Results 24hrs Laboratory Tests Test 10/17/18 17:27 10/17/18 21:17 10/18/18 03:57 10/18/18 11:51 Bedside Glucose 250 H 267 H 203 White Blood Count 8.8 Red Blood Count 3.01 L Hemoglobin 8.1 L Hematocrit 26.4 L Mean Corpuscular 87.7 Volume Mean Corpuscular 26.9 L Hemoglobin Mean Corpuscular 30.7 L Hemoglobin Concent Red Cell 18.8 H Distribution Width Platelet Count 248 Mean Platelet Volume 9.4 Immature 0.300 Granulocytes % Neutrophils % 61.6 Lymphocytes % 26.6 Monocytes % 9.5 Eosinophils % 1.8 Basophils % 0.2 Nucleated Red Blood 0.0 Cells % Immature 0.030 Granulocytes # Neutrophils # 5.4 Lymphocytes # 2.3 Monocytes # 0.8 Eosinophils # 0.2 Basophils # 0.0 Nucleated Red Blood 0.0 Cells # Sodium Level 139 Potassium Level 4.0 Chloride Level 114 H Carbon Dioxide Level 23 Anion Gap 2 L Blood Urea Nitrogen 21 H Creatinine 1.03 H Est Glomerular Filtrat Rate mL/min Glucose Level 164 Calcium Level 8.2 L Vancomycin Level 15.9 Trough Exam/Review of Systems Exam Vitals Vital Signs Date Temp Pulse Resp B/P (MAP) Pulse Ox O2 O2 Flow FiO2 Time Delivery Rate 10/18/18 98.3 69 18 99 Room Air 11:22 10/18/18 2.0 08:00 Intake and Output 10/17/18 10/17/18 10/18/18 1515:00 23:00 07:00 IntakeIntake Total 300 ml 410 ml 50 ml OutputOutput Total 450 ml 800 ml BalanceBalance 300 ml -40 ml -750 ml Constitutional: alert, well developed Psych: nl mood/affect Head: atraumatic Eyes: nl lids, nl sclera ENMT: nl external ears & nose Neck: non-tender Respiratory: clear to auscultation Cardiovascular: nl pulses, other (s1s2) Gastrointestinal: soft, non-tender Musculoskeletal: other Neurological: nl speech, confused Skin: other Lymph: nontender Results Results 24hrs Laboratory Tests Test 10/17/18 17:27 10/17/18 21:17 10/18/18 03:57 10/18/18 11:51 Bedside Glucose 250 H 267 H 203 White Blood Count 8.8 Red Blood Count 3.01 L Hemoglobin 8.1 L Hematocrit 26.4 L Mean Corpuscular 87.7 Volume Mean Corpuscular 26.9 L Hemoglobin Mean Corpuscular 30.7 L Hemoglobin Concent Red Cell 18.8 H Distribution Width Platelet Count 248 Mean Platelet Volume 9.4 Immature 0.300 Granulocytes % Neutrophils % 61.6 Lymphocytes % 26.6 Monocytes % 9.5 Eosinophils % 1.8 Basophils % 0.2 Nucleated Red Blood 0.0 Cells % Immature 0.030 Granulocytes # Neutrophils # 5.4 Lymphocytes # 2.3 Monocytes # 0.8 Eosinophils # 0.2 Basophils # 0.0 Nucleated Red Blood 0.0 Cells # Sodium Level 139 Potassium Level 4.0 Chloride Level 114 H Carbon Dioxide Level 23 Anion Gap 2 L Blood Urea Nitrogen 21 H Creatinine 1.03 H Est Glomerular Filtrat Rate mL/min Glucose Level 164 Calcium Level 8.2 L Vancomycin Level 15.9 Trough Medications Medication Current Medications Allopurinol (Zyloprim) 100 mg BID PO Last administered on 10/18/18 08:37; Admin Dose 100 MG; Start 10/07/18 at 21:00 Aspirin (Halfprin) 81 mg DAILY PO Last administered on 10/08/18 08:14; Admin Dose 81 MG; Start 10/08/18 at 09:00; Status Hold Docusate Sodium (Colace) 100 mg TID PO Last administered on 10/18/18 12:04; Admin Dose 100 MG; Start 10/07/18 at 21:00 Pantoprazole (Protonix Tab) 40 mg DAILY@06 PO Last administered on 10/18/18 05:53; Admin Dose 40 MG; Start 10/08/18 at 06:00 IV Flush (NS 3 ml) 3 ml PER PROTOCOL IV ; Start 10/07/18 at 12:30 Ondansetron HCl (Zofran Inj) 4 mg Q6H PRN IV NAUSEA/VOMITING; Start 10/07/18 at 12:30 Acetaminophen (Tylenol Tab) 650 mg Q6H PRN PO .PAIN 1-3 OR TEMP Last administered on 10/16/18 18:56; Admin Dose 650 MG; Start 10/07/18 at 12:30 Acetaminophen/ Hydrocodone Bitart (Transfer (5/325)) 1 tab Q6H PRN PO .PAIN 4-6 Last administered on 10/17/18 21:19; Admin Dose 1 TAB; Start 10/07/18 at 12:30 Clonidine (Catapres) 0.1 mg BID PO Last administered on 10/16/18at 08:46; Admin Dose 0.1 MG; Start 10/07/18 at 22:00; Status Hold Diagnostic Test (Pha) (Accu-Chek) 1 ea 02 XX Last administered on 10/13/18at 02:00; Admin Dose 1 EA; Start 10/08/18 at 02:00 Miscellaneous Information 1 ea NOTE XX ; Start 10/07/18 at 21:00 Glucose (Glutose) 15 gm Q15M PRN PO DECREASED GLUCOSE; Start 10/07/18 at 21:00 Glucose (Glutose) 22.5 gm Q15M PRN PO DECREASED GLUCOSE; Start 10/07/18 at 21:00 Dextrose (D50w Syringe) 25 ml Q15M PRN IV DECREASED GLUCOSE; Start 10/07/18 at 21:00 Dextrose (D50w Syringe) 50 ml Q15M PRN IV DECREASED GLUCOSE; Start 10/07/18 at 21:00 Glucagon (Glucagen) 1 mg Q15M PRN IM DECREASED GLUCOSE; Start 10/07/18 at 21:00 Glucose (Glutose) 15 gm Q15M PRN BUCCAL DECREASED GLUCOSE; Start 10/07/18 at 21:00 Meropenem/Sodium Chloride 50 ml @ 100 mls/hr Q12 IVPB Last administered on 10/18/18at 08:36; Admin Dose 100 MLS/HR; Start 10/09/18 at 12:00 Collagenase (Santyl) 1 applic DAILY TOP Last administered on 10/18/18at 08:37; Admin Dose 1 APPLIC; Start 10/09/18 at 19:00 Sodium Hypochlorite (Dakins Diluted ()) 1 applic DAILY TP Last administered on 10/18/18at 08:38; Admin Dose 1 APPLIC; Start 10/11/18 at 09:00 Caspofungin 50 mg/ Sodium Chloride 250 ml @ 250 mls/hr Q24H IVPB Last administered on 10/18/18at 10:51; Admin Dose 250 MLS/HR; Start 10/12/18 at 11:00 Quetiapine Fumarate (Seroquel) 25 mg BID@0900,1200 PO Last administered on 10/18/18at 11:53; Admin Dose 25 MG; Start 10/11/18 at 12:00 Quetiapine Fumarate (Seroquel) 50 mg HS PO Last administered on 10/17/18at 21:19; Admin Dose 50 MG; Start 10/11/18 at 21:00 Vancomycin HCl (Vanco Iv Per Pharmacy) VANCOMYCIN PER PHARMACY PER PROTOCOL XX ; Start 10/13/18 at 15:00 Insulin Glargine (Lantus) 12 units DAILY@1200 SC Last administered on 10/18/18 11:57; Admin Dose 12 UNITS; Start 10/13/18 at 15:30 Vancomycin HCl 250 ml @ 125 mls/hr Q36H IVPB Last administered on 10/18/18 04:39; Admin Dose 125 MLS/HR; Start 10/15/18 at 05:00 Morphine Sulfate (morphine) 2 mg Q4H PRN IV SEVERE PAIN LEVEL 7-10 Last administered on 10/18/18 11:58; Admin Dose 2 MG; Start 10/15/18 at 21:00 Insulin Aspart (Novolog Insulin Pen) (Adult SC Insulin - Mild Algorithm)... AC DINNER BEDTIME SC Last administered on 10/17/18 21:46; Admin Dose 4 UNIT; Start 10/16/18 at 17:25 Potassium Chloride/Dextrose/ Sod Cl 1,000 ml @ 30 mls/hr Q24H IV Last administered on 10/17/18 21:38; Admin Dose 30 MLS/HR; Start 10/16/18 at 14:30 Collagenase (Santyl) 1 applic DAILY TOP Last administered on 10/18/18 08:38; Admin Dose 1 APPLIC; Start 10/17/18 at 12:00 ELIZA HECTOR Oct 18, 2018 12:20
--- NOTE | 2018-10-18 13:22 | PN ---
"Date/Time of Note Date/Time of Note DATE: 10/18/18 TIME: 13:22 Assessment/Plan Lines/Catheters IV Catheter Type (from Nrs): Peripheral IV Odonnell in Place (from Nrs): Yes Assessment/Plan Chief Complaint/Hosp Course 1. Right buttock wound; Foot wound with probable osteo- -debridement of right buttock wound as needed -continue local care -frequent turning and off-loading -low air loss mattress -vitamin c -short term zinc -optimize nutrition -foot wounds per podiatry> status post debridement currently with wound VAC -calf wound per vascular 2. UTI: -abx per sensitivity -frequent bladder emptying/cath care 3. BRANDON: Resolved; hypoechoic lesion left kidney, possible neoplasm; hx of renal ca and nephrectomy -Monitor -armenta for neoplasm>per medical team 4. Microcytic hypochromic anemia: sp prbc tx -monitor -transfuse as needed -GI w/u in process 5. Obesity bmi 31 -diet and exercise optimization -encourage weight loss 6. Poor appetite: -supportive -treat infections 7. Hepatic steatosis: -nutrition and weight optimization -medical fu 8. Gastritis: -PPI 9. Leukocytosis: resolved Thank you. Patient seen and examined in collaboration with Dr. Isaac Erwin. Subjective 24 Hr Interval Summary Appears comfortable. Nonverbal indicators of pain. No fevers, congested cough, vomiting, diarrhea, labored breathing, sz, rash. Exam/Review of Systems Vital Signs Vitals Vital Signs Date Temp Pulse Resp B/P (MAP) Pulse Ox O2 O2 Flow FiO2 Time Delivery Rate 10/18/18 Nasal 2.0 20:36 Cannula 10/18/18 27 19:46 10/18/18 98.2 68 18 104/40 99 19:34 (61) Intake and Output 10/17/18 10/17/18 10/18/18 1515:00 23:00 07:00 IntakeIntake Total 300 ml 410 ml 50 ml OutputOutput Total 450 ml 800 ml BalanceBalance 300 ml -40 ml -750 ml Exam Free Text/Dictation Free Text/Dictation Constitutional: alert; No oriented (confused) Psych: anxiety Head: normocephalic, atraumatic Eyes: nl conjunctiva, EOMI, nl lids, nl sclera ENMT: nl external ears & nose, nl nasal mucosa & septum, mucosa pink and moist Neck: supple, non-tender Respiratory: normal air movement; No congested cough Cardiovascular: regular rate and rhythm, nl pulses; No edema Gastrointestinal: soft, non-tender; No distended, No rebound or guarding Genitourinary - Female: nl external genitalia Musculoskeletal: nl extremities to inspection, muscle weakness (gen weakness) Extremities: normal pulses; No edema, No pitting pedal edema Neurological: nl speech; No nl mental status (forgetful), No nl strength (gen weakness) Skin: other (Multiple wounds: right buttock:min slough, no periwound erythema/drainage/odor | Left calf:min slough, min alecia wound erythema | Bilateral foot wounds ; right heel wrapped-wound VAC); No rash or lesions Results Result Diagram: 10/18/18 0357 10/18/18 0357 JUSTINE GUEVARA NP Oct 18, 2018 13:22"
[2018-10-18 15:15] VITALS: BP 112/51; PULSE 62; RESP 18
[2018-10-18] MEDS: CEFTRIAXONE 2 GM/50 ML (PMX) 50 ML IVPB SCH (15:40)
[2018-10-18] MEDS: INSULIN ASPART [NOVOLOG] 3 ML PEN SC SCH ×2 (17:15→21:20)
[2018-10-18 19:34] VITALS: BP 104/40; PULSE 68; RESP 18
[2018-10-18 23:38] VITALS: BP 97/40; PULSE 83; RESP 18
[2018-10-19] MEDS: ACCU-CHEK XX SCH (02:19)
[2018-10-19 03:51] VITALS: BP 90/51; PULSE 84; RESP 18
[2018-10-19] MEDS: D5W-0.45 NACL + KCL 20 MEQ 1,000 ML IV SCH (04:40)
[2018-10-19] MEDS: PANTOPRAZOLE (EC) 40 MG TAB PO SCH (06:01)
[2018-10-19 07:52] VITALS: BP 101/45; PULSE 85; RESP 18
[2018-10-19] MEDS: COLLAGENASE 5 GM (UD JAR) TOP SCH ×2 (09:16)
[2018-10-19] MEDS: ALLOPURINOL 100 MG TAB PO SCH ×2 (09:16→20:40)
[2018-10-19] MEDS: DOCUSATE SODIUM 100 MG CAP PO SCH ×3 (09:16→20:39)
[2018-10-19] MEDS: QUETIAPINE 25 MG TAB PO SCH ×3 (09:16→20:40)
[2018-10-19] MEDS: DAKINS 0.0125%(1/40) 473 ML SOLUTION TP SCH (09:17)
--- NOTE | 2018-10-19 09:45 | PN ---
Date/Time of Note Date/Time of Note DATE: 10/19/18 TIME: 09:42 Assessment/Plan VTE Prophylaxis Risk score (from [facility])>0 risk: 7 [place] [facility] [place]CD contraindicated: other Pharmacological prophylaxis: other Pharm contraindication: other Lines/Catheters IV C[facility]ter Type (from [facility] Saline Lock Urinary Cath still in place: Yes Reason Cath still needed: urinary retention Assessment/Plan Result Diagram: 10/18/18 0357 10/18/18 0357 Results 24hrs Laboratory Tests Test 10/18/18 11:51 10/18/18 17:08 10/18/18 20:49 10/19/18 02:17 Bedside Glucose 203 178 164 224 H Subjective 24 Hr Interval Summary Free Text/Dictation nad afebrile no events last night dw staff Exam/Review of Systems Exam Vitals Vital Signs Date Temp Pulse Resp B/P (MAP) Pulse Ox O2 O2 Flow FiO2 Time Delivery Rate 10/19/18 Nasal 2.0 08:00 Cannula 10/19/18 97.6 85 18 101/45 97 07:52 (63) 10/19/18 27 05:59 Intake and Output 10/18/18 10/18/18 10/19/18 1515:00 23:00 07:00 IntakeIntake Total 300 ml 40 ml OutputOutput Total 480 ml 600 ml BalanceBalance 300 ml -480 ml -560 ml Constitutional: alert, well developed Psych: nl mood/affect Head: normocephalic Eyes: nl lids, nl sclera ENMT: nl external ears & nose Neck: non-tender Respiratory: clear to auscultation Cardiovascular: nl pulses Gastrointestinal: soft, non-tender Musculoskeletal: nl extremities to inspection Extremities: normal pulses Neurological: nl speech, confused Results Results 24hrs Laboratory Tests Test 10/18/18 11:51 10/18/18 17:08 10/18/18 20:49 10/19/18 02:17 Bedside Glucose 203 178 164 224 H Medications Medication Current Medications Allopurinol (Zyloprim) 100 mg BID PO Last administered on 10/19/18at 09:16; Admin Dose 100 MG; Start 10/07/18 at 21:00 Aspirin (Halfprin) 81 mg DAILY PO Last administered on 10/08/18at 08:14; Admin Dose 81 MG; Start 10/08/18 at 09:00; Status Hold Docusate Sodium (Colace) 100 mg TID PO Last administered on 10/19/18at 09:16; Admin Dose 100 MG; Start 10/07/18 at 21:00 Pantoprazole (Protonix Tab) 40 mg DAILY@06 PO Last administered on 10/19/18at 06:01; Admin Dose 40 MG; Start 10/08/18 at 06:00 IV Flush (NS 3 ml) 3 ml PER PROTOCOL IV ; Start 10/07/18 at 12:30 Ondansetron HCl (Zofran Inj) 4 mg Q6H PRN IV NAUSEA/VOMITING; Start 10/07/18 at 12:30 Acetaminophen (Tylenol Tab) 650 mg Q6H PRN PO .PAIN 1-3 OR TEMP Last administered on 10/16/18at 18:56; Admin Dose 650 MG; Start 10/07/18 at 12:30 Acetaminophen/ Hydrocodone Bitart ([place] (5/325)) 1 tab Q6H PRN PO .PAIN 4-6 Last administered on 10/17/18at 21:19; Admin Dose 1 TAB; Start 10/07/18 at 12:30 Clonidine (Catapres) 0.1 mg BID PO Last administered on 10/16/18at 08:46; Admin Dose 0.1 MG; Start 10/07/18 at 22:00; Status Hold Diagnostic Test (Pha) (Accu-Chek) 1 ea 02 XX Last administered on 10/19/18at 02:19; Admin Dose 1 EA; Start 10/08/18 at 02:00 Miscellaneous Information 1 ea NOTE XX ; Start 10/07/18 at 21:00 Glucose (Glutose) 15 gm Q15M PRN PO DECREASED GLUCOSE; Start 10/07/18 at 21:00 Glucose (Glutose) 22.5 gm Q15M PRN PO DECREASED GLUCOSE; Start 10/07/18 at 21:00 Dextrose (D50w Syringe) 25 ml Q15M PRN IV DECREASED GLUCOSE; Start 10/07/18 at 21:00 Dextrose (D50w Syringe) 50 ml Q15M PRN IV DECREASED GLUCOSE; Start 10/07/18 at 21:00 Glucagon (Glucagen) 1 mg Q15M PRN IM DECREASED GLUCOSE; Start 10/07/18 at 21:00 Glucose (Glutose) 15 gm Q15M PRN BUCCAL DECREASED GLUCOSE; Start 10/07/18 at 2 1:00 Collagenase (Santyl) 1 applic DAILY TOP Last administered on 10/19/18 09:16; Admin Dose 1 APPLIC; Start 10/09/18 at 19:00 Sodium Hypochlorite (Dakins Diluted ()) 1 applic DAILY TP Last administered on 10/19/18 09:17; Admin Dose 1 APPLIC; Start 10/11/18 at 09:00 Quetiapine Fumarate (Seroquel) 25 mg BID@0900,1200 PO Last administered on 10/19/18 09:16; Admin Dose 25 MG; Start 10/11/18 at 12:00 Quetiapine Fumarate (Seroquel) 50 mg HS PO Last administered on 10/18/18 20:55; Admin Dose 50 MG; Start 10/11/18 at 21:00 Vancomycin HCl (Vanco Iv Per Pharmacy) VANCOMYCIN PER PHARMACY PER PROTOCOL XX ; Start 10/13/18 at 15:00 Insulin Glargine (Lantus) 12 units DAILY@1200 SC Last administered on 10/18/18 11:57; Admin Dose 12 UNITS; Start 10/13/18 at 15:30 Vancomycin HCl 250 ml @ 125 mls/hr Q36H IVPB Last administered on 10/18/18 04:39; Admin Dose 125 MLS/HR; Start 10/15/18 at 05:00 Morphine Sulfate (morphine) 2 mg Q4H PRN IV SEVERE PAIN LEVEL 7-10 Last administered on 10/18/18 11:58; Admin Dose 2 MG; Start 10/15/18 at 21:00 Insulin Aspart (Novolog Insulin Pen) (Adult SC Insulin - Mild Algorithm)... AC DINNER BEDTIME SC Last administered on 10/18/18 21:20; Admin Dose 1 UNIT; Start 10/16/18 at 17:25 Potassium Chloride/Dextrose/ Sod Cl 1,000 ml @ 30 mls/hr Q24H IV Last administered on 10/17/18 21:38; Admin Dose 30 MLS/HR; Start 10/16/18 at 14:30 Collagenase (Santyl) 1 applic DAILY TOP Last administered on 10/19/18 09:16; Admin Dose 1 APPLIC; Start 7/19/19 at 12:00 Ceftriaxone Sodium 50 ml @ 100 mls/hr Q24H IVPB Last administered on 10/18/18at 15:40; Admin Dose 100 MLS/HR; Start 10/18/18 at 14:00; Stop 11/18/18 at 21:00 ELIZA HECTOR Oct 19, 2018 09:45
[2018-10-19 11:30] VITALS: BP 118/56; PULSE 90; RESP 16
[2018-10-19] MEDS: HYDROCODONE/APAP (5/325) TAB PO PRN ×2 (11:47→22:32)
[2018-10-19] MEDS: INSULIN GLARGINE [LANTus] (100 UNITS/ML) SYG SC SCH (12:04)
--- NOTE | 2018-10-19 12:04 | PN ---
"Date/Time of Note Date/Time of Note DATE: 10/19/18 TIME: 12:01 Assessment/Plan Lines/Catheters IV Catheter Type (from Nrs): Saline Lock Odonnell in Place (from Nrs): Yes Assessment/Plan Chief Complaint/Hosp Course 1. Right buttock wound; Foot wound with probable osteo- -debridement of right buttock wound as needed -continue local care -frequent turning and off-loading -low air loss mattress -vitamin c -short term zinc -optimize nutrition -foot wounds per podiatry> status post debridement currently with wound VAC -calf wound per vascular 2. UTI: -abx per sensitivity -frequent bladder emptying/cath care 3. BRANDON: Resolved; hypoechoic lesion left kidney, possible neoplasm; hx of renal ca and nephrectomy -Monitor -armenta for neoplasm>per medical team 4. Microcytic hypochromic anemia: sp prbc tx -monitor -transfuse as needed 5. Obesity bmi 31 -diet and exercise optimization -encourage weight loss 6. Poor appetite: -supportive -treat infections 7. Hepatic steatosis: -nutrition and weight optimization -medical fu 8. Gastritis: -PPI 9. Leukocytosis: resolved Thank you. Patient seen and examined in collaboration with Dr. Isaac Erwin. Subjective 24 Hr Interval Summary Continues with wound vac to right foot. Appears comfortable. Nonverbal indicators of pain not present. No fevers, labored breathing, congested cough, vomiting, diarrhea, sz, rash, right buttock wound drainage/odor. Exam/Review of Systems Vital Signs Vitals Vital Signs Date Temp Pulse Resp B/P (MAP) Pulse Ox O2 O2 Flow FiO2 Time Delivery Rate 10/19/18 98.1 90 16 118/56 99 11:30 (76) 10/19/18 Nasal 2.0 08:00 Cannula 10/19/18 27 05:59 Intake and Output 10/18/18 10/18/18 10/19/18 1515:00 23:00 07:00 IntakeIntake Total 300 ml 40 ml OutputOutput Total 480 ml 600 ml BalanceBalance 300 ml -480 ml -560 ml Exam Free Text/Dictation Constitutional: alert; No oriented (confused) Psych: anxiety Head: normocephalic, atraumatic Eyes: nl conjunctiva, EOMI, nl lids, nl sclera ENMT: nl external ears & nose, nl nasal mucosa & septum, mucosa pink and moist Neck: supple, non-tender Respiratory: normal air movement; No congested cough Cardiovascular: regular rate and rhythm, nl pulses; No edema Gastrointestinal: soft, non-tender; No distended, No rebound or guarding Genitourinary - Female: nl external genitalia Musculoskeletal: nl extremities to inspection, muscle weakness (gen weakness) Extremities: normal pulses; No edema, No pitting pedal edema Neurological: nl speech; No nl mental status (forgetful), No nl strength (gen weakness) Skin: other (Multiple wounds: right buttock: clean, granulating, no periwound erythema/drainage/odor | Left calf:min slough, min alecia wound erythema | Bilateral foot wounds ; right heel wrapped-wound VAC); No rash or lesions Results Result Diagram: 10/18/18 0357 10/18/18 0357 JUSTINE GUEVARA NP Oct 19, 2018 12:04"
--- NOTE | 2018-10-19 12:26 | CONS ---
Assessment/Plan Assessment/Plan Hospital Course (Demo Recall) ID PROGRESS NOTE CURRENT ABX: DAY # 11 =>Vanco IV + Ceftriaxone s/p Cancidas s/p Merrem + 24H INTERVAL SUMMARY * Resting in bed, awakens, takes home prepared meals brought in from family. VSS, no fevers, NAD, FC in place. DIAGNOSTIC IMAGING * 10/12/18 CT FOOT: 1. Slight cortical erosive change appears to be present involving the calcaneal tuberosity that may reflect osteomyelitis with the given history.2. Mild to moderate midfoot arthrosis.3. MRI may be helpful for further evaluation of osteomyelitis if warranted. * 10/10/18 BLEXT ARTERIAL DUPLEX: Scattered calcific plaquing. No hemodynamically significant stenosis or occlusion. Bilateral small vessel dise ase within both trifurcation vessels. MICRO * 10/15/18 RIGHT FOOT CX: ANAEROBIC CULTURE Final No growth at 3 days * 10/15/18 RIGHT FOOT CX: WOUND CULTURE Final Organism 1 PROTEUS MIRABILIS QUANTITY ISOLATED FROM BROTH ONLY P. MIRAB M.I.C. RX --------- --- AMPICILLIN <=2 S CEFOTAXIME S CIPROFLOXACIN <=0.25 S GENTAMICIN <=1 S LEVOFLOXACIN <=0.12 S TOBRAMYCIN <=1 S TRIMETHOPRIM/SULFAMETHOXAZOLE <=20 S * 10/07/18 Straight cath URINE CULTURE Final Organism 1 ARABELLA GLABRATA COLONY COUNT >100,000 CFU/ml * 10/07/18 BCX (-) * 10/07/18 URINE CULTURE Final Organism 1 KLEBSIELLA OXYTOCA COLONY COUNT >100,000 CFU/ml Organism 2 PSEUDOMONAS AERUGINOSA COLONY COUNT >100,000 CFU/ml PHYSICAL EXAMINATION: GENERAL: VSS, NAD HEENT: AT, NC, NECK: Supple, CHEST: Rise symmetrical HEART: Pulse RRR ABDOMEN: Benign EXTREMITIES: Warm, dry SKIN: No rash, no diaphoresis ID ASSESSMENT 82 yo F admit with: 1. S/p sepsis, present on admission 2. Gram-negative melvi/yeast UTI 3. Acute on chronic anemia 4. Coronary artery disease with a history of CABG 5. Echo dense structure seen by tricuspid valve, right atrium and IVC-thrombus, vegetation versus tumor=== completed 6 weeks IV antibiotics> 6. History of renal cell carcinoma status post nephrectomy 7. DM2 with peripheral neuropathy 8. PAD 9. R heel osteomyelitis status post debridement * Right heel decubitus ulceration stage 4 * Right foot osteomyelitis * Right 5th digit skin lesion 10.Left lower extremity ulceration (-)MRSA Nares ABX ALLERGIES: KNDA INVASIVES: PIV CURRENT ABX: DAY # 11 =>Vanco IV + Ceftriaxone s/p Cancidas s/p Merrem + ID RECOMMENDATIONS/PLAN: 1. DC'd Merrem -- change to Ceftriaxone 2gm IV daily to complete 42 days == 31 more days 2. Continue Vanco IV to complete 42 days = 31 more days 3. Completed 10 day course of Cancidas + Merrem -- has completed 10 days for poly-GNR UTI/yeast JULY DC TO SNF ON VANCO IV + CEFTRIAXONE until last day = NOVEMBER 18, 2018 PICC per primary care Consultation Date/Type/Reason Admit Date/Time Oct 07, 2018 at 03:37 Initial Consult Date 10/10/18 Requesting Provider: JAGJIT MONTES MD Date/Time of Note DATE: 10/19/18 TIME: 12:22 Exam/Review of Systems Exam Vitals Vital Signs Date Temp Pulse Resp B/P (MAP) Pulse Ox O2 O2 Flow FiO2 Time Delivery Rate 10/19/18 98.1 90 16 118/56 99 11:30 (76) 10/19/18 Nasal 2.0 08:00 Cannula 10/19/18 27 05:59 Intake and Output 10/18/18 10/18/18 10/19/18 1515:00 23:00 07:00 IntakeIntake Total 300 ml 40 ml OutputOutput Total 480 ml 600 ml BalanceBalance 300 ml -480 ml -560 ml Results Result Diagram: 10/18/18 0357 10/18/18 0357 Results 24hrs Laboratory Tests Test 10/18/18 17:08 10/18/18 20:49 10/19/18 02:17 10/19/18 11:53 Bedside Glucose 178 164 224 H 309 H Medications Medication Current Medications Allopurinol (Zyloprim) 100 mg BID PO Last administered on 10/19/18at 09:16; Admin Dose 100 MG; Start 10/07/18 at 21:00 Aspirin (Halfprin) 81 mg DAILY PO Last administered on 10/08/18at 08:14; Admin Dose 81 MG; Start 10/08/18 at 09:00; Status Hold Docusate Sodium (Colace) 100 mg TID PO Last administered on 10/19/18at 12:00; Admin Dose 100 MG; Start 10/07/18 at 21:00 Pantoprazole (Protonix Tab) 40 mg DAILY@06 PO Last administered on 10/19/18at 06:01; Admin Dose 40 MG; Start 10/08/18 at 06:00 IV Flush (NS 3 ml) 3 ml PER PROTOCOL IV ; Start 10/07/18 at 12:30 Ondansetron HCl (Zofran Inj) 4 mg Q6H PRN IV NAUSEA/VOMITING; Start 10/07/18 at 12:30 Acetaminophen (Tylenol Tab) 650 mg Q6H PRN PO .PAIN 1-3 OR TEMP Last ad ministered on 10/16/18at 18:56; Admin Dose 650 MG; Start 10/07/18 at 12:30 Acetaminophen/ Hydrocodone Bitart ([place] (5/325)) 1 tab Q6H PRN PO .PAIN 4-6 Last administered on 10/19/18at 11:47; Admin Dose 1 TAB; Start 10/07/18 at 12:30 Clonidine (Catapres) 0.1 mg BID PO Last administered on 10/16/18at 08:46; Admin Dose 0.1 MG; Start 10/07/18 at 22:00; Status Hold Diagnostic Test (Pha) (Accu-Chek) 1 ea 02 XX Last administered on 10/19/18at 02:19; Admin Dose 1 EA; Start 10/08/18 at 02:00 Miscellaneous Information 1 ea NOTE XX ; Start 10/07/18 at 21:00 Glucose (Glutose) 15 gm Q15M PRN PO DECREASED GLUCOSE; Start 10/07/18 at 21:00 Glucose (Glutose) 22.5 gm Q15M PRN PO DECREASED GLUCOSE; Start 10/07/18 at 21:00 Dextrose (D50w Syringe) 25 ml Q15M PRN IV DECREASED GLUCOSE; Start 10/07/18 at 21:00 Dextrose (D50w Syringe) 50 ml Q15M PRN IV DECREASED GLUCOSE; Start 10/07/18 at 21:00 Glucagon (Glucagen) 1 mg Q15M PRN IM DECREASED GLUCOSE; Start 10/07/18 at 21:00 Glucose (Glutose) 15 gm Q15M PRN BUCCAL DECREASED GLUCOSE; Start 10/07/18 at 21:00 Collagenase (Santyl) 1 applic DAILY TOP Last administered on 10/19/18 09:16; Admin Dose 1 APPLIC; Start 10/09/18 at 19:00 Sodium Hypochlorite (Dakins Diluted ()) 1 applic DAILY TP Last administered on 10/19/18 09:17; Admin Dose 1 APPLIC; Start 10/11/18 at 09:00 Quetiapine Fumarate (Seroquel) 25 mg BID@0900,1200 PO Last administered on 10/19/18 11:55; Admin Dose 25 MG; Start 10/11/18 at 12:00 Quetiapine Fumarate (Seroquel) 50 mg HS PO Last administered on 10/18/18 20:55; Admin Dose 50 MG; Start 10/11/18 at 21:00 Vancomycin HCl (Vanco Iv Per Pharmacy) VANCOMYCIN PER PHARMACY PER PROTOCOL XX ; Start 10/13/18 at 15:00 Insulin Glargine (Lantus) 12 units DAILY@1200 SC Last administered on 10/19/18at 12:04; Admin Dose 12 UNITS; Start 10/13/18 at 15:30 Vancomycin HCl 250 ml @ 125 mls/hr Q36H IVPB Last administered on 10/18/18 04:39; Admin Dose 125 MLS/HR; Start 10/15/18 at 05:00 Morphine Sulfate (morphine) 2 mg Q4H PRN IV SEVERE PAIN LEVEL 7-10 Last administered on 10/18/18 11:58; Admin Dose 2 MG; Start 10/15/18 at 21:00 Insulin Aspart (Novolog Insulin Pen) (Adult SC Insulin - Mild Algorithm)... AC DINNER BEDTIME SC Last administered on 10/18/18 21:20; Admin Dose 1 UNIT; Start 10/16/18 at 17:25 Potassium Chloride/Dextrose/ Sod Cl 1,000 ml @ 30 mls/hr Q24H IV Last administered on 10/17/18 21:38; Admin Dose 30 MLS/HR; Start 10/16/18 at 14:30 Collagenase (Santyl) 1 applic DAILY TOP Last administered on 10/19/18 09:16; Admin Dose 1 APPLIC; Start 10/17/18 at 12:00 Ceftriaxone Sodium 50 ml @ 100 mls/hr Q24H IVPB Last administered on 10/18/18at 15:40; Admin Dose 100 MLS/HR; Start 10/18/18 at 14:00; Stop 11/18/18 at 21:00 DICKSON JIMENEZ NP Oct 19, 2018 12:26
[2018-10-19] MEDS: CEFTRIAXONE 2 GM/50 ML (PMX) 50 ML IVPB SCH (13:23)
[2018-10-19 15:49] VITALS: BP 106/46; PULSE 71; RESP 20
[2018-10-19] MEDS: VANCOMYCIN 1 GM 250 ML IVPB SCH (16:22)
--- NOTE | 2018-10-19 16:27 | CONS ---
Assessment/Plan Assessment/Plan Assessment/Plan (Daily) Hospital Course (Demo Recall) 82 yo female with hl/o anemia 1. Urinary tract infection. 2. Sepsis. -gram positive rods in foot wound cx. -pos urine cx 3. Status post coronary artery bypass graft. 4. Peripheral vascular disease. 5. Atrial fibrillation. 6. Status post surgery for renal cell carcinoma 8 years ago. 7. Diabetes. 8. Hypertension. 9. Severe anemia. -IV iron 10. Transaminitis -elevated ALT/AST -improving -CBD 7mm, t bili wnl. 11. Elevated CEA: 24.1 12. Chronic gastritis 13. S/P EGD 10/13 14. Fatty liver with possible hepatocellular disease noted on US PLAN: Pt needs colonoscopy at some point if patient can tolerate bowel prep [facility] and for active GI bleeding Gastric pathology unremarkable Gastrografin enema in a.m. Consultation Date/Type/Reason Admit Date/Time Oct 07, 2018 at 03:37 Initial Consult Date 10/07/18 Requesting Provider: JAGJIT MONTES MD Date/Time of Note DATE: 10/19/18 TIME: 16:26 24 HR Interval Summary Constitutional: no complaints Exam/Review of Systems Exam Vitals Vital Signs Date Temp Pulse Resp B/P (MAP) Pulse Ox O2 O2 Flow FiO2 Time Delivery Rate 10/19/18 97.8 71 20 106/46 96 15:49 (66) 10/19/18 2.0 13:11 10/19/18 Nasal 08:00 Cannula 10/19/18 27 05:59 Intake and Output 10/18/18 10/18/18 10/19/18 1515:00 23:00 07:00 IntakeIntake Total 300 ml 40 ml OutputOutput Total 480 ml 600 ml BalanceBalance 300 ml -480 ml -560 ml Constitutional: alert, oriented, well developed Psych: no complaints, nl mood/affect Head: normocephalic, atraumatic Eyes: nl conjunctiva, EOMI, nl lids, nl sclera, PERRL ENMT: nl external ears & nose, nl lips & teeth, nl nasal mucosa & septum Neck: supple, non-tender Respiratory: clear to auscultation, normal air movement Cardiovascular: regular rate and rhythm, nl pulses Gastrointestinal: soft, nl liver, spleen, non-tender Musculoskeletal: nl extremities to inspection, nl gait and stance Extremities: normal pulses Neurological: NNPS II-XII intact, nl mental status, nl speech, nl strength Skin: nl turgor; No rash or lesions Lymph: nl lymph nodes Results Result Diagram: 10/18/18 0357 10/18/18 0357 Results 24hrs Laboratory Tests Test 10/18/18 17:08 10/18/18 20:49 10/19/18 02:17 10/19/18 11:53 Bedside Glucose 178 164 224 H 309 H Medications Medication Current Medications Allopurinol (Zyloprim) 100 mg BID PO Last administered on 10/19/18 09:16; Admin Dose 100 MG; Start 10/07/18 at 21:00 Aspirin (Halfprin) 81 mg DAILY PO Last administered on 10/08/18 08:14; Admin Dose 81 MG; Start 10/08/18 at 09:00; Status Hold Docusate Sodium (Colace) 100 mg TID PO Last administered on 10/19/18 12:00; Admin Dose 100 MG; Start 10/07/18 at 21:00 Pantoprazole (Protonix Tab) 40 mg DAILY@06 PO Last administered on 10/19/18 06:01; Admin Dose 40 MG; Start 10/08/18 at 06:00 IV Flush (NS 3 ml) 3 ml PER PROTOCOL IV ; Start 10/07/18 at 12:30 Ondansetron HCl (Zofran Inj) 4 mg Q6H PRN IV NAUSEA/VOMITING; Start 10/07/18 at 12:30 Acetaminophen (Tylenol Tab) 650 mg Q6H PRN PO .PAIN 1-3 OR TEMP Last administered on 10/16/18 18:56; Admin Dose 650 MG; Start 10/07/18 at 12:30 Acetaminophen/ Hydrocodone Bitart ([place] (5/325)) 1 tab Q6H PRN PO .PAIN 4-6 Last administered on 10/19/18 11:47; Admin Dose 1 TAB; Start 10/07/18 at 12:30 Clonidine (Catapres) 0.1 mg BID PO Last administered on 10/16/18 08:46; Admin Dose 0.1 MG; Start 10/07/18 at 22:00; Status Hold Diagnostic Test (Pha) (Accu-Chek) 1 ea 02 XX Last administered on 10/19/18at 02:19; Admin Dose 1 EA; Start 10/08/18 at 02:00 Miscellaneous Information 1 ea NOTE XX ; Start 10/07/18 at 21:00 Glucose (Glutose) 15 gm Q15M PRN PO DECREASED GLUCOSE; Start 10/07/18 at 21:00 Glucose (Glutose) 22.5 gm Q15M PRN PO DECREASED GLUCOSE; Start 10/07/18 at 21:00 Dextrose (D50w Syringe) 25 ml Q15M PRN IV DECREASED GLUCOSE; Start 10/07/18 at 21:00 Dextrose (D50w Syringe) 50 ml Q15M PRN IV DECREASED GLUCOSE; Start 10/07/18 at 21:00 Glucagon (Glucagen) 1 mg Q15M PRN IM DECREASED GLUCOSE; Start 10/07/18 at 21:00 Glucose (Glutose) 15 gm Q15M PRN BUCCAL DECREASED GLUCOSE; Start 10/07/18 at 21:00 Collagenase (Santyl) 1 applic DAILY TOP Last administered on 10/19/18at 09:16; Admin Dose 1 APPLIC; Start 10/09/18 at 19:00 Sodium Hypochlorite (Dakins Diluted (40)) 1 applic DAILY TP Last administered on 10/19/18at 09:17; Admin Dose 1 APPLIC; Start 10/11/18 at 09:00 Quetiapine Fumarate (Seroquel) 25 mg BID@0900,1200 PO Last administered on 10/19/18at 11:55; Admin Dose 25 MG; Start 10/11/18 at 12:00 Quetiapine Fumarate (Seroquel) 50 mg HS PO Last administered on 10/18/18at 20 :55; Admin Dose 50 MG; Start 10/11/18 at 21:00 Vancomycin HCl (Vanco Iv Per Pharmacy) VANCOMYCIN PER PHARMACY PER PROTOCOL XX ; Start 10/13/18 at 15:00 Insulin Glargine (Lantus) 12 units DAILY@1200 SC Last administered on 10/19/18at 12:04; Admin Dose 12 UNITS; Start 10/13/18 at 15:30 Vancomycin HCl 250 ml @ 125 mls/hr Q36H IVPB Last administered on 10/19/18at 16:22; Admin Dose 125 MLS/HR; Start 10/15/18 at 05:00 Morphine Sulfate (morphine) 2 mg Q4H PRN IV SEVERE PAIN LEVEL 7-10 Last administered on 10/18/18at 11:58; Admin Dose 2 MG; Start 10/15/18 at 21:00 Insulin Aspart (Novolog Insulin Pen) (Adult SC Insulin - Mild Algorithm)... AC DINNER BEDTIME SC Last administered on 10/18/18at 21:20; Admin Dose 1 UNIT; Start 10/16/18 at 17:25 Collagenase (Santyl) 1 applic DAILY TOP Last administered on 10/19/18at 09:16; Admin Dose 1 APPLIC; Start 10/17/18 at 12:00 Ceftriaxone Sodium 50 ml @ 100 mls/hr Q24H IVPB Last administered on 10/19/18at 13:23; Admin Dose 100 MLS/HR; Start 10/18/18 at 14:00; Stop 11/18/18 at 21:00 VELIA CASTRO MD Oct 19, 2018 16:27
[2018-10-19] MEDS: INSULIN ASPART [NOVOLOG] 3 ML PEN SC SCH ×2 (17:21→20:39)
[2018-10-19 19:48] VITALS: BP 102/53; PULSE 74; RESP 20
--- NOTE | 2018-10-19 20:49 | CONS ---
Assessment/Plan Assessment/Plan Assessment/Plan (Daily) 1. acute hyperkalemia due to BRANDON resolved 2 .acute kidney injury on CKD III due to ATN from sepsis + prerenal azotemia- Improving 3. Sepsis due to UTI and PNA 4. acute UTI 5. H/o partial nephrectomy possibly due to RCC as per family 6. H/o CAD s/p CABG , Cardiomyopathy with EF 50%, Chronic Systolic HF, 7. H/O HTN 8. h/o DM II 9. Paroxysmal atrial fibrillation 10. acute encephalpahty possibly due to uremic and metabolic encephalopathy 11. 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 H/o HTN 13. H/o DM II 14. h/O paroxysmal atrial fibrillation Plan: No labs today to review yet, ID recommended Cetriaxone + vancomycin till 11/18/18 for OM Renal US showed No hydronephrosis. No nephrolithiasis.- 3.1 x 2 x 2.1 centimeter hypoechoic lesion arising from the lower pole of the left kidney. Follow-up to exclude neoplasm. There is echogenic material layering within the dependent portion of the bladder. Follow up to exclude infectious, inflammatory, or neoplastic process.- Atrophic left kidney- Family refused MRI abdomen will follow up Consultation Date/Type/Reason Admit Date/Time Oct 07, 2018 at 03:37 Initial Consult Date 10/07/18 Type of Consult NEPHROLOGY Requesting Provider: JAGJIT MONTES MD Date/Time of Note DATE: 10/19/18 TIME: 20:48 24 HR Interval Summary Free Text/Dictation No labs today to review yet, ID recommended Cetriaxone + vancomycin till 11/18/18 for OM Exam/Review of Systems Exam Vitals Vital Signs Date Temp Pulse Resp B/P (MAP) Pulse Ox O2 O2 Flow FiO2 Time Delivery Rate 10/19/18 98.3 74 20 102/53 96 Room Air 19:48 (69) 10/19/18 2.0 19:38 10/19/18 27 19:25 Intake and Output 10/18/18 10/18/18 10/19/18 1515:00 23:00 07:00 IntakeIntake Total 300 ml 40 ml OutputOutput Total 480 ml 600 ml BalanceBalance 300 ml -480 ml -560 ml Exam Constitutional: alert, oriented Respiratory: diminished breath sounds Cardiovascular: irregular rhythm Gastrointestinal: soft, non-tender Genitourinary - Male: other (Incontinent of urine) Musculoskeletal: nl extremities to inspection Extremities: normal pulses Neurological: nl mental status Skin: other (Right foot wound with dressing) Results Result Diagram: 10/18/18 0357 10/18/18 0357 Results 24hrs Laboratory Tests Test 10/18/18 20:49 10/19/18 02:17 10/19/18 11:53 10/19/18 17:09 Bedside Glucose 164 224 H 309 H 277 H Test 10/19/18 20:33 Bedside Glucose 162 Medications Medication Current Medications Allopurinol (Zyloprim) 100 mg BID PO Last administered on 10/19/18 20:40; Admin Dose 100 MG; Start 10/07/18 at 21:00 Aspirin (Halfprin) 81 mg DAILY PO Last administered on 10/08/18 08:14; Admin Dose 81 MG; Start 10/08/18 at 09:00; Status Hold Docusate Sodium (Colace) 100 mg TID PO Last administered on 10/19/18 20:39; Admin Dose 100 MG; Start 10/07/18 at 21:00 Pantoprazole (Protonix Tab) 40 mg DAILY@06 PO Last administered on 10/19/18at 06:01; Admin Dose 40 MG; Start 10/08/18 at 06:00 IV Flush (NS 3 ml) 3 ml PER PROTOCOL IV ; Start 10/07/18 at 12:30 Ondansetron HCl (Zofran Inj) 4 mg Q6H PRN IV NAUSEA/VOMITING; Start 10/07/18 at 12:30 Acetaminophen (Tylenol Tab) 650 mg Q6H PRN PO .PAIN 1-3 OR TEMP Last administered on 10/16/18 18:56; Admin Dose 650 MG; Start 10/07/18 at 12:30 Acetaminophen/ Hydrocodone Bitart ([place] (5/325)) 1 tab Q6H PRN PO .PAIN 4-6 Last administered on 10/19/18 11:47; Admin Dose 1 TAB; Start 10/07/18 at 12:30 Clonidine (Catapres) 0.1 mg BID PO Last administered on 10/16/18 08:46; Admin Dose 0.1 MG; Start 10/07/18 at 22:00; Status Hold Diagnostic Test (Pha) (Accu-Chek) 1 ea 02 XX Last administered on 10/19/18at 02:19; Admin Dose 1 EA; Start 10/08/18 at 02:00 Miscellaneous Information 1 ea NOTE XX ; Start 10/07/18 at 21:00 Glucose (Glutose) 15 gm Q15M PRN PO DECREASED GLUCOSE; Start 10/07/18 at 21:00 Glucose (Glutose) 22.5 gm Q15M PRN PO DECREASED GLUCOSE; Start 10/07/18 at 21:00 Dextrose (D50w Syringe) 25 ml Q15M PRN IV DECREASED GLUCOSE; Start 10/07/18 at 21:00 Dextrose (D50w Syringe) 50 ml Q15M PRN IV DECREASED GLUCOSE; Start 10/07/18 at 21:00 Glucagon (Glucagen) 1 mg Q15M PRN IM DECREASED GLUCOSE; Start 10/07/18 at 21:00 Glucose (Glutose) 15 gm Q15M PRN BUCCAL DECREASED GLUCOSE; Start 10/07/18 at 21:00 Collagenase (Santyl) 1 applic DAILY TOP Last administered on 10/19/18at 09:16; Admin Dose 1 APPLIC; Start 10/09/18 at 19:00 Sodium Hypochlorite (Dakins Diluted ()) 1 applic DAILY TP Last administered on 10/19/18at 09:17; Admin Dose 1 APPLIC; Start 10/11/18 at 09:00 Quetiapine Fumarate (Seroquel) 25 mg BID@0900,1200 PO Last administered on 10/19/18at 11:55; Admin Dose 25 MG; Start 10/11/18 at 12:00 Quetiapine Fumarate (Seroquel) 50 mg HS PO Last administered on 10/19/18at 20:40; Admin Dose 50 MG; Start 10/11/18 at 21:00 Vancomycin HCl (Vanco Iv Per Pharmacy) VANCOMYCIN PER PHARMACY PER PROTOCOL XX ; Start 10/13/18 at 15:00 Insulin Glargine (Lantus) 12 units DAILY@1200 SC Last administered on 10/19/18at 12:04; Admin Dose 12 UNITS; Start 10/13/18 at 15:30 Vancomycin HCl 250 ml @ 125 mls/hr Q36H IVPB Last administered on 10/19/18at 16:22; Admin Dose 125 MLS/HR; Start 10/15/18 at 05:00 Morphine Sulfate (morphine) 2 mg Q4H PRN IV SEVERE PAIN LEVEL 7-10 Last administered on 10/18/18at 11:58; Admin Dose 2 MG; Start 10/15/18 at 21:00 Insulin Aspart (Novolog Insulin Pen) (Adult SC Insulin - Mild Algorithm)... AC DINNER BEDTIME SC Last administered on 10/19/18at 17:21; Admin Dose 4 UNIT; Start 10/16/18 at 17:25 Collagenase (Santyl) 1 applic DAILY TOP Last administered on 10/19/18at 09:16; Admin Dose 1 APPLIC; Start 10/17/18 at 12:00 Ceftriaxone Sodium 50 ml @ 100 mls/hr Q24H IVPB Last administered on 10/19/18at 13:23; Admin Dose 100 MLS/HR; Start 10/18/18 at 14:00; Stop 11/18/18 at 21:00 EVA TREJO MD Oct 19, 2018 20:48
[2018-10-20] VITALS: BP 143/66; PULSE 70; RESP 18
[2018-10-20] MEDS: morphine 2 MG INJ IV PRN ×4 (00:32→21:31)
[2018-10-20 02:00] VITALS: BP 118/55; PULSE 67; RESP 18
[2018-10-20] MEDS: ACCU-CHEK XX SCH (02:01)
[2018-10-20] MEDS: DEXTROSE 5%-0.45% NACL 1,000 ML IV SCH ×2 (04:19→20:24)
[2018-10-20] MEDS: INSULIN ASPART [NOVOLOG] 3 ML PEN SC SCH ×3 (05:00→13:00)
[2018-10-20] MEDS: PANTOPRAZOLE (EC) 40 MG TAB PO SCH (05:28)
[2018-10-20 08:09] VITALS: BP 146/63; PULSE 70; RESP 17
[2018-10-20] MEDS: DOCUSATE SODIUM 100 MG CAP PO SCH ×3 (09:00→20:13)
[2018-10-20] MEDS: ALLOPURINOL 100 MG TAB PO SCH ×2 (09:00→20:11)
[2018-10-20] MEDS: QUETIAPINE 25 MG TAB PO SCH ×3 (09:00→20:12)
[2018-10-20] MEDS: COLLAGENASE 5 GM (UD JAR) TOP SCH ×2 (09:06)
[2018-10-20] MEDS: DAKINS 0.0125%(1/40) 473 ML SOLUTION TP SCH (09:07)
--- NOTE | 2018-10-20 12:02 | CONS ---
Assessment/Plan Assessment/Plan Assessment/Plan (Daily) 1. acute hyperkalemia due to BRANDON resolved 2 .acute kidney injury on CKD III due to ATN from sepsis + prerenal azotemia- Improving 3. Sepsis due to UTI and PNA 4. acute UTI 5. H/o partial nephrectomy possibly due to RCC as per family 6. H/o CAD s/p CABG , Cardiomyopathy with EF 50%, Chronic Systolic HF, 7. H/O HTN 8. h/o DM II 9. Paroxysmal atrial fibrillation 10. acute encephalpahty possibly due to uremic and metabolic encephalopathy 11. 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 H/o HTN 13. H/o DM II 14. h/O paroxysmal atrial fibrillation Plan: BUN/Cr 16/0.76, Othe electrolytes stable , ID recommended Cetriaxone + vancomycin till 11/18/18 for OM Renal US showed No hydronephrosis. No nephrolithiasis.- 3.1 x 2 x 2.1 centimeter hypoechoic lesion arising from the lower pole of the left kidney. Follow-up to exclude neoplasm. There is echogenic material layering within the dependent portion of the bladder. Follow up to exclude infectious, inflammatory, or neoplastic process.- Atrophic left kidney- Family refused MRI abdomen ok to d/c to SNF as per Primary team plan will follow up Consultation Date/Type/Reason Admit Date/Time Oct 07, 2018 at 03:37 Initial Consult Date 10/07/18 Type of Consult NEPHROLOGY Requesting Provider: JAGJIT MONTES MD Date/Time of Note DATE: 10/20/18 TIME: 12:02 Exam/Review of Systems Exam Vitals Vital Signs Date Temp Pulse Resp B/P (MAP) Pulse Ox O2 O2 Flow FiO2 Time Delivery Rate 10/20/18 98.4 70 17 146/63 99 08:09 (90) 10/19/18 Nasal 2.0 23:30 Cannula 10/19/18 27 19:25 Intake and Output 10/19/18 10/19/18 10/20/18 1515:00 23:00 07:00 IntakeIntake Total 50 ml 650 ml 60 ml OutputOutput Total 900 ml 100 ml BalanceBalance 50 ml -250 ml -40 ml Exam Constitutional: alert, oriented Respiratory: diminished breath sounds Cardiovascular: irregular rhythm Gastrointestinal: soft, non-tender Genitourinary - Male: other (Incontinent of urine) Musculoskeletal: nl extremities to inspection Extremities: normal pulses Neurological: nl mental status Skin: other (Right foot wound with dressing) Results Result Diagram: 10/20/184 10/20/18 0434 Results 24hrs Laboratory Tests Test 10/19/18 17:09 10/19/18 20:33 10/20/18 01:59 10/20/18 04:34 Bedside Glucose 277 H 162 120 White Blood Count 8.8 Red Blood Count 3.38 L Hemoglobin 9.0 L Hematocrit 29.4 L Mean Corpuscular 87.0 Volume Mean Corpuscular 26.6 L Hemoglobin Mean Corpuscular 30.6 L Hemoglobin Concent Red Cell 18.5 H Distribution Width Platelet Count 200 Mean Platelet Volume 10.7 H Immature 0.500 H Granulocytes % Neutrophils % 56.8 Lymphocytes % 30.3 Monocytes % 9.8 Eosinophils % 2.3 Basophils % 0.3 Nucleated Red Blood 0.0 Cells % Immature 0.040 H Granulocytes # Neutrophils # 5.0 Lymphocytes # 2.7 Monocytes # 0.9 Eosinophils # 0.2 Basophils # 0.0 Nucleated Red Blood 0.0 Cells # Sodium Level 138 Potassium Level 4.1 Chloride Level 112 H Carbon Dioxide Level 24 Anion Gap 2 L Blood Urea Nitrogen 19 Creatinine 0.82 Est Glomerular Filtrat Rate mL/min Glucose Level 78 Calcium Level 8.7 Test 10/20/18 05:28 10/20/18 09:01 Bedside Glucose 80 85 Medications Medication Current Medications Allopurinol (Zyloprim) 100 mg BID PO Last administered on 10/19/18at 20:40; Admin Dose 100 MG; Start 10/07/18 at 21:00 Aspirin (Halfprin) 81 mg DAILY PO Last administered on 10/08/18at 08:14; Admin Dose 81 MG; Start 10/08/18 at 09:00; Status Hold Docusate Sodium (Colace) 100 mg TID PO Last administered on 10/19/18at 20:39; Admin Dose 100 MG; Start 10/07/18 at 21:00 Pantoprazole (Protonix Tab) 40 mg DAILY@06 PO Last administered on 10/19/18at 06:01; Admin Dose 40 MG; Start 10/08/18 at 06:00 IV Flush (NS 3 ml) 3 ml PER PROTOCOL IV ; Start 10/07/18 at 12:30 Ondansetron HCl (Zofran Inj) 4 mg Q6H PRN IV NAUSEA/VOMITING; Start 10/07/18 at 12:30 Acetaminophen (Tylenol Tab) 650 mg Q6H PRN PO .PAIN 1-3 OR TEMP Last administered on 10/16/18at 18:56; Admin Dose 650 MG; Start 10/07/18 at 12:30 Acetaminophen/ Hydrocodone Bitart ([place] (5/325)) 1 tab Q6H PRN PO .PAIN 4-6 Last administered on 10/19/18 22:32; Admin Dose 1 TAB; Start 10/07/18 at 12:30 Clonidine (Catapres) 0.1 mg BID PO Last administered on 10/16/18 08:46; Admin Dose 0.1 MG; Start 10/07/18 at 22:00; Status Hold Diagnostic Test (Pha) (Accu-Chek) 1 ea 02 XX Last administered on 10/20/18at 02:01; Admin Dose 1 EA; Start 10/08/18 at 02:00 Miscellaneous Information 1 ea NOTE XX ; Start 10/07/18 at 21:00 Glucose (Glutose) 15 gm Q15M PRN PO DECREASED GLUCOSE; Start 10/07/18 at 21:00 Glucose (Glutose) 22.5 gm Q15M PRN PO DECREASED GLUCOSE; Start 10/07/18 at 21:00 Dextrose (D50w Syringe) 25 ml Q15M PRN IV DECREASED GLUCOSE; Start 10/07/18 at 21:00 Dextrose (D50w Syringe) 50 ml Q15M PRN IV DECREASED GLUCOSE; Start 10/07/18 at 21:00 Glucagon (Glucagen) 1 mg Q15M PRN IM DECREASED GLUCOSE; Start 10/07/18 at 21:00 Glucose (Glutose) 15 gm Q15M PRN BUCCAL DECREASED GLUCOSE; Start 10/07/18 at 21:00 Collagenase (Santyl) 1 applic DAILY TOP Last administered on 10/20/18at 09:06; Admin Dose 1 APPLIC; Start 10/09/18 at 19:00 Sodium Hypochlorite (Dakins Diluted (40)) 1 applic DAILY TP Last administered on 10/20/18 09:07; Admin Dose 1 APPLIC; Start 10/11/18 at 09:00 Quetiapine Fumarate (Seroquel) 25 mg BID@0900,1200 PO Last administered on 10/19/18 11:55; Admin Dose 25 MG; Start 10/11/18 at 12:00 Quetiapine Fumarate (Seroquel) 50 mg HS PO Last administered on 10/19/18 20:40; Admin Dose 50 MG; Start 10/11/18 at 21:00 Vancomycin HCl (Vanco Iv Per Pharmacy) VANCOMYCIN PER PHARMACY PER PROTOCOL XX ; Start 10/13/18 at 15:00 Insulin Glargine (Lantus) 12 units DAILY@1200 SC Last administered on 10/19/18 12:04; Admin Dose 12 UNITS; Start 10/13/18 at 15:30 Vancomycin HCl 250 ml @ 125 mls/hr Q36H IVPB Last administered on 10/19/18 16:22; Admin Dose 125 MLS/HR; Start 10/15/18 at 05:00 Morphine Sulfate (morphine) 2 mg Q4H PRN IV SEVERE PAIN LEVEL 7-10 Last adminis tered on 10/20/18at 10:17; Admin Dose 2 MG; Start 10/15/18 at 21:00 Collagenase (Santyl) 1 applic DAILY TOP Last administered on 10/20/18 09:06; Admin Dose 1 APPLIC; Start 10/17/18 at 12:00 Ceftriaxone Sodium 50 ml @ 100 mls/hr Q24H IVPB Last administered on 10/19/18 13:23; Admin Dose 100 MLS/HR; Start 10/18/18 at 14:00; Stop 11/18/18 at 21:00 Insulin Aspart (Novolog Insulin Pen) NOVOLOG *MILD* ALGORI... Q4 SC ; Start 10/20/18 at 05:00 Dextrose/Sodium Chloride 1,000 ml @ 60 mls/hr [id number] IV Last administered on 10/20/18 04:19; Admin Dose 60 MLS/HR; Start 10/20/18 at 04:00 EVA TREJO MD Oct 20, 2018 12:02
--- NOTE | 2018-10-20 12:36 | PN ---
Date/Time of Note Date/Time of Note DATE: 10/20/18 TIME: 12:26 Assessment/Plan VTE Prophylaxis Risk score (from Ns)>0 risk: 7 [place] [facility] [place] contraindicated: other (Bilateral bilateral lower extremity wounds) Pharmacological prophylaxis: NA/contraindicated Pharm contraindication: anticoag not tolerated Lines/Catheters IV Catheter Type (from [facility]): Saline Lock Urinary Cath still in place: Yes Reason Cath still needed: urinary retention Assessment/Plan Hospital Course Patient was taken to radiology for Gastrografin number however was not cooperative patient is currently back is awake alert otherwise confused denies pain. Assessment/Plan -Chronic gastritis per EGD, continue PPI. -Anemia, history of emesis at home and loss of appetite. Dr. Winkler is foll owing in gastroenterology consultation. Colonoscopy recommended however patient is unable to take p.o. prep, patient's son refused NG tube placement. Patient is not able to tolerate Gastrografin enema. -Sepsis secondary to urinary tract infection and possible early pneumonia, resolving. Continue antibiotics per ID. Dr. Elias is following in infection disease consultation. -UTI. Status post treatment with antibiotics. -Hyperkalemia, resolved, status post treatment -Acute kidney injury, continue gentle hydration, monitor BUN and creatinine. Dr. Arreaga is following in nephrology consultation. -Hypertension -Systolic congestive heart failure. Dr. Chávez is following in cardiology consultation. -Cardiomyopathy with ejection fraction 50% -Atrial fibrillation, patient did not tolerate anticoagulation in the past due to bleeding and anemia, patient was on aspirin which is currently held due significant drop in hemoglobin. -Coronary artery disease, status post CABG -Diabetes mellitus type 2, continue Lantus and pre-meal NovoLog. -History of endocarditis, status post treatment -Sacral, right foot, and left garcia wounds present on admission. Continue current care per wound care recommendations. -Right heel wound with early osteomyelitis, status post debridement and application of allograft and wound VAC on 10/15/2018, Dr. Garland is following and podiatry consultation. Continue antibiotics per ID. -History of left femoral artery thrombectomy, left garcia open wound. Dr. Deepika kendrick is following in vascular surgery consultation. Further recommendations based on clinical course. Plan of care discussed with Dr. Mi. Result Diagram: 10/20/18 0434 10/20/18 0434 Results 24hrs Laboratory Tests Test 10/19/18 17:09 10/19/18 20:33 10/20/18 01:59 10/20/18 04:34 Bedside Glucose 277 H 162 120 White Blood Count 8.8 Red Blood Count 3.38 L Hemoglobin 9.0 L Hematocrit 29.4 L Mean Corpuscular 87.0 Volume Mean Corpuscular 26.6 L Hemoglobin Mean Corpuscular 30.6 L Hemoglobin Concent Red Cell 18.5 H Distribution Width Platelet Count 200 Mean Platelet Volume 10.7 H Immature 0.500 H Granulocytes % Neutrophils % 56.8 Lymphocytes % 30.3 Monocytes % 9.8 Eosinophils % 2.3 Basophils % 0.3 Nucleated Red Blood 0.0 Cells % Immature 0.040 H Granulocytes # Neutrophils # 5.0 Lymphocytes # 2.7 Monocytes # 0.9 Eosinophils # 0.2 Basophils # 0.0 Nucleated Red Blood 0.0 Cells # Sodium Level 138 Potassium Level 4.1 Chloride Level 112 H Carbon Dioxide Level 24 Anion Gap 2 L Blood Urea Nitrogen 19 Creatinine 0.82 Est Glomerular Filtrat Rate mL/min Glucose Level 78 Calcium Level 8.7 Test 10/20/18 05:28 10/20/18 09:01 Bedside Glucose 80 85 Exam/Review of Systems Exam Vitals Vital Signs Date Temp Pulse Resp B/P (MAP) Pulse Ox O2 O2 Flow FiO2 Time Delivery Rate 10/20/18 98.4 70 17 146/63 99 08:09 (90) 10/19/18 Nasal 2.0 23:30 Cannula 10/19/18 27 19:25 Intake and Output 10/19/18 10/19/18 10/20/18 1515:00 23:00 07:00 IntakeIntake Total 50 ml 650 ml 60 ml OutputOutput Total 900 ml 100 ml BalanceBalance 50 ml -250 ml -40 ml Exam Constitutional: alert, frail Head: normocephalic Respiratory: clear to auscultation Cardiovascular: regular rate and rhythm Gastrointestinal: soft, non-tender Musculoskeletal: nl extremities to inspection Extremities: normal pulses, other (Right foot wound with wound VAC) Skin: other (Left garcia and sacral wounds) Results Results 24hrs Laboratory Tests Test 10/19/18 17:09 10/19/18 20:33 10/20/18 01:59 10/20/18 04:34 Bedside Glucose 277 H 162 120 White Blood Count 8.8 Red Blood Count 3.38 L Hemoglobin 9.0 L Hematocrit 29.4 L Mean Corpuscular 87.0 Volume Mean Corpuscular 26.6 L Hemoglobin Mean Corpuscular 30.6 L Hemoglobin Concent Red Cell 18.5 H Distribution Width Platelet Count 200 Mean Platelet Volume 10.7 H Immature 0.500 H Granulocytes % Neutrophils % 56.8 Lymphocytes % 30.3 Monocytes % 9.8 Eosinophils % 2.3 Basophils % 0.3 Nucleated Red Blood 0.0 Cells % Immature 0.040 H Granulocytes # Neutrophils # 5.0 Lymphocytes # 2.7 Monocytes # 0.9 Eosinophils # 0.2 Basophils # 0.0 Nucleated Red Blood 0.0 Cells # Sodium Level 138 Potassium Level 4.1 Chloride Level 112 H Carbon Dioxide Level 24 Anion Gap 2 L Blood Urea Nitrogen 19 Creatinine 0.82 Est Glomerular Filtrat Rate mL/min Glucose Level 78 Calcium Level 8.7 Test 10/20/18 05:28 10/20/18 09:01 Bedside Glucose 80 85 Medications Medication Current Medications Allopurinol (Zyloprim) 100 mg BID PO Last administered on 10/19/18at 20:40; Admin Dose 100 MG; Start 10/07/18 at 21:00 Aspirin (Halfprin) 81 mg DAILY PO Last administered on 10/08/18at 08:14; Admin Dose 81 MG; Start 10/08/18 at 09:00; Status Hold Docusate Sodium (Colace) 100 mg TID PO Last administered on 10/19/18at 20:39; Admin Dose 100 MG; Start 10/07/18 at 21:00 Pantoprazole (Protonix Tab) 40 mg DAILY@06 PO Last administered on 10/19/18at 06:01; Admin Dose 40 MG; Start 10/08/18 at 06:00 IV Flush (NS 3 ml) 3 ml PER PROTOCOL IV ; Start 10/07/18 at 12:30 Ondansetron HCl (Zofran Inj) 4 mg Q6H PRN IV NAUSEA/VOMITING; Start 10/07/18 at 12:30 Acetaminophen (Tylenol Tab) 650 mg Q6H PRN PO .PAIN 1-3 OR TEMP Last administered on 10/16/18at 18:56; Admin Dose 650 MG; Start 10/07/18 at 12:30 Acetaminophen/ Hydrocodone Bitart (Ary (5/325)) 1 tab Q6H PRN PO .PAIN 4-6 Last administered on 10/19/18at 22:32; Admin Dose 1 TAB; Start 10/07/18 at 12:30 Clonidine (Catapres) 0.1 mg BID PO Last administered on 10/16/18at 08:46; Admin Dose 0.1 MG; Start 10/07/18 at 22:00; Status Hold Diagnostic Test (Pha) (Accu-Chek) 1 ea 02 XX Last administered on 10/20/18at 02:01; Admin Dose 1 EA; Start 10/08/18 at 02:00 Miscellaneous Information 1 ea NOTE XX ; Start 10/07/18 at 21:00 Glucose (Glutose) 15 gm Q15M PRN PO DECREASED GLUCOSE; Start 10/07/18 at 21:00 Glucose (Glutose) 22.5 gm Q15M PRN PO DECREASED GLUCOSE; Start 10/07/18 at 21:00 Dextrose (D50w Syringe) 25 ml Q15M PRN IV DECREASED GLUCOSE; Start 10/07/18 at 21:00 Dextrose (D50w Syringe) 50 ml Q15M PRN IV DECREASED GLUCOSE; Start 10/07/18 at 21:00 Glucagon (Glucagen) 1 mg Q15M PRN IM DECREASED GLUCOSE; Start 10/07/18 at 21:00 Glucose (Glutose) 15 gm Q15M PRN BUCCAL DECREASED GLUCOSE; Start 10/07/18 at 21:00 Collagenase (Santyl) 1 applic DAILY TOP Last administered on 10/20/18at 09:06; Admin Dose 1 APPLIC; Start 10/09/18 at 19:00 Sodium Hypochlorite (Dakins Diluted ()) 1 applic DAILY TP Last administered on 10/20/18at 09:07; Admin Dose 1 APPLIC; Start 10/11/18 at 09:00 Quetiapine Fumarate (Seroquel) 25 mg BID@0900,1200 PO Last administered on 10/19/18at 11:55; Admin Dose 25 MG; Start 10/11/18 at 12:00 Quetiapine Fumarate (Seroquel) 50 mg HS PO Last administered on 10/19/18at 20:40; Admin Dose 50 MG; Start 10/11/18 at 21:00 Vancomycin HCl (Vanco Iv Per Pharmacy) VANCOMYCIN PER PHARMACY PER PROTOCOL XX ; Start 10/13/18 at 15:00 Insulin Glargine (Lantus) 12 units DAILY@1200 SC Last administered on 10/19/18at 12:04; Admin Dose 12 UNITS; Start 10/13/18 at 15:30 Vancomycin HCl 250 ml @ 125 mls/hr Q36H IVPB Last administered on 10/19/18 16:22; Admin Dose 125 MLS/HR; Start 10/15/18 at 05:00 Morphine Sulfate (morphine) 2 mg Q4H PRN IV SEVERE PAIN LEVEL 7-10 Last administered on 10/20/18 10:17; Admin Dose 2 MG; Start 10/15/18 at 21:00 Collagenase (Santyl) 1 applic DAILY TOP Last administered on 10/20/18 09:06; Admin Dose 1 APPLIC; Start 10/17/18 at 12:00 Ceftriaxone Sodium 50 ml @ 100 mls/hr Q24H IVPB Last administered on 10/19/18at 13:23; Admin Dose 100 MLS/HR; Start 10/18/18 at 14:00; Stop 11/18/18 at 21:00 Insulin Aspart (Novolog Insulin Pen) NOVOLOG *MILD* ALGORI... Q4 SC ; Start 10/20/18 at 05:00 Dextrose/Sodium Chloride 1,000 ml @ 60 mls/hr [id number] IV Last administered on 10/20/18 04:19; Admin Dose 60 MLS/HR; Start 10/20/18 at 04:00 OCTAVIANO SHAFFER Oct 20, 2018 12:36
[2018-10-20] MEDS: INSULIN GLARGINE [LANTus] (100 UNITS/ML) SYG SC SCH (13:09)
--- NOTE | 2018-10-20 13:38 | PN ---
"Date/Time of Note Date/Time of Note DATE: 10/20/18 TIME: 13:36 Assessment/Plan Lines/Catheters IV Catheter Type (from Nrs): Saline Lock [place] in Place (from Nrs): Yes Assessment/Plan Chief Complaint/Hosp Course 1. Right buttock wound; Foot wound with probable osteo- -debridement of right buttock wound as needed -continue local care -frequent turning and off-loading -low air loss mattress -vitamin c -short term zinc -optimize nutrition -foot wounds per podiatry> status post debridement currently with wound VAC -calf wound per vascular 2. UTI: -abx per sensitivity -frequent bladder emptying/cath care 3. BRANDON: Resolved; hypoechoic lesion left kidney, possible neoplasm; hx of renal ca and nephrectomy -Monitor -armenta for neoplasm>per medical team 4. Microcytic hypochromic anemia: sp prbc tx -monitor -transfuse as needed 5. Obesity bmi 31 -diet and exercise optimization -encourage weight loss 6. Poor appetite: -supportive -treat infections 7. Hepatic steatosis: -nutrition and weight optimization -medical fu 8. Gastritis: -PPI Thank you, Subjective 24 Hr Interval Summary Continues with wound vac to right foot. Appears comfortable. Nonverbal indicators of pain not present. No fevers, labored breathing, congested cough, vomiting, diarrhea, sz, rash, right buttock wound drainage/odor. Exam/Review of Systems Vital Signs Vitals Vital Signs Date Temp Pulse Resp B/P (MAP) Pulse Ox O2 O2 Flow FiO2 Time Delivery Rate 10/20/18 98.4 70 17 146/63 99 08:09 (90) 10/19/18 Nasal 2.0 23:30 Cannula 10/19/18 27 19:25 Intake and Output 10/19/18 10/19/18 10/20/18 1515:00 23:00 07:00 IntakeIntake Total 50 ml 650 ml 60 ml OutputOutput Total 900 ml 100 ml BalanceBalance 50 ml -250 ml -40 ml Exam Free Text/Dictation Constitutional: alert; No oriented (confused) Psych: anxiety Head: normocephalic, atraumatic Eyes: nl conjunctiva, EOMI, nl lids, nl sclera ENMT: nl external ears & nose, nl nasal mucosa & septum, mucosa pink and moist Neck: supple, non-tender Respiratory: normal air movement; No congested cough Cardiovascular: regular rate and rhythm, nl pulses; No edema Gastrointestinal: soft, non-tender; No distended, No rebound or guarding Genitourinary - Female: nl external genitalia Musculoskeletal: nl extremities to inspection, muscle weakness (gen weakness) Extremities: normal pulses; No edema, No pitting pedal edema Neurological: nl speech; No nl mental status (forgetful), No nl strength (gen weakness) Skin: other (Multiple wounds: right buttock: clean, granulating, no periwound erythema/drainage/odor | Left calf:min slough, min alecia wound erythema | B ilateral foot wounds); No rash or lesions Results Result Diagram: 10/20/18 0434 10/20/18 0434 MARINA WADE MD Oct 20, 2018 13:38"
[2018-10-20 14:00] VITALS: BP 158/72; PULSE 69; RESP 18
[2018-10-20] MEDS: CEFTRIAXONE 2 GM/50 ML (PMX) 50 ML IVPB SCH (14:00)
--- NOTE | 2018-10-20 15:13 | CONS ---
Assessment/Plan Assessment/Plan Hospital Course (Demo Recall) No events, sleeping, looks comfortable, no fevers Antimicrobials: Vancomycin, Rocephin Microbiology: Blood cultures negative, urine culture + MDR Kleb, repeat cx + yeast, Wound culture growing Proteus Chest x-ray on admission revealed no evidence of CHF or pneumonia. Renal ultrasound revealed no hydronephrosis and no nephrolithiasis. 3.1 x 2 x 2.1 cm hypoechoic lesion left pole of the kidney questionable neoplasm Physical examination: Well-developed chronically ill-appearing wasted elderly woman who is in no distress. Head atraumatic normocephalic neck is supple chest rise symmetrical breath sounds diminished bases. Heart: S1-S2. Abdomen soft bowel sounds present. Extremities with dependent bilateral lower extremities edema, R foot dsg Assessment: 1. S/p sepsis, present on admission 2. S/p Gram-negative melvi/yeast UTI 3. Acute on chronic anemia 4. Coronary artery disease with a history of CABG 5. Echo dense structure seen by tricuspid valve, right atrium and IVC-thrombus, vegetation versus tumor=== completed 6 weeks IV antibiotics> 6. History of renal cell carcinoma status post nephrectomy 7. Diabetes 8. R heel osteomyelitis status post debridement Plan: Remains unchanged, continue IV antibiotics for 6 weeks for osteomyelitis of the heel, wound care per podiatry Consultation Date/Type/Reason Admit Date/Time Oct 07, 2018 at 03:37 Initial Consult Date 10/07/18 Type of Consult id Requesting Provider: JAGJIT MONTES MD Date/Time of Note DATE: 10/20/18 TIME: 15:10 Exam/Review of Systems Exam Vitals Vital Signs Date Temp Pulse Resp B/P (MAP) Pulse Ox O2 O2 Flow FiO2 Time Delivery Rate 10/20/18 98.4 70 17 146/63 99 08:09 (90) 10/19/18 Nasal 2.0 23:30 Cannula 10/19/18 27 19:25 Intake and Output 10/19/18 10/19/18 10/20/18 1515:00 23:00 07:00 IntakeIntake Total 50 ml 650 ml 60 ml OutputOutput Total 900 ml 100 ml BalanceBalance 50 ml -250 ml -40 ml Results Result Diagram: 10/20/18 0434 10/20/18 0434 Results 24hrs Laboratory Tests Test 10/19/18 17:09 10/19/18 20:33 10/20/18 01:59 10/20/18 04:34 Bedside Glucose 277 H 162 120 White Blood Count 8.8 Red Blood Count 3.38 L Hemoglobin 9.0 L Hematocrit 29.4 L Mean Corpuscular 87.0 Volume Mean Corpuscular 26.6 L Hemoglobin Mean Corpuscular 30.6 L Hemoglobin Concent Red Cell 18.5 H Distribution Width Platelet Count 200 Mean Platelet Volume 10.7 H Immature 0.500 H Granulocytes % Neutrophils % 56.8 Lymphocytes % 30.3 Monocytes % 9.8 Eosinophils % 2.3 Basophils % 0.3 Nucleated Red Blood 0.0 Cells % Immature 0.040 H Granulocytes # Neutrophils # 5.0 Lymphocytes # 2.7 Monocytes # 0.9 Eosinophils # 0.2 Basophils # 0.0 Nucleated Red Blood 0.0 Cells # Sodium Level 138 Potassium Level 4.1 Chloride Level 112 H Carbon Dioxide Level 24 Anion Gap 2 L Blood Urea Nitrogen 19 Creatinine 0.82 Est Glomerular Filtrat Rate mL/min Glucose Level 78 Calcium Level 8.7 Test 10/20/18 05:28 10/20/18 09:01 10/20/18 13:04 Bedside Glucose 80 85 78 Medications Medication Current Medications Allopurinol (Zyloprim) 100 mg BID PO Last administered on 10/19/18at 20:40; Admin Dose 100 MG; Start 10/07/18 at 21:00 Aspirin (Halfprin) 81 mg DAILY PO Last administered on 10/08/18at 08:14; Admin Dose 81 MG; Start 10/08/18 at 09:00; Status Hold Docusate Sodium (Colace) 100 mg TID PO Last administered on 10/20/18at 13:08; Admin Dose 100 MG; Start 10/07/18 at 21:00 Pantoprazole (Protonix Tab) 40 mg DAILY@06 PO Last administered on 10/19/18at 06:01; Admin Dose 40 MG; Start 10/08/18 at 06:00 IV Flush (NS 3 ml) 3 ml PER PROTOCOL IV ; Start 10/07/18 at 12:30 Ondansetron HCl (Zofran Inj) 4 mg Q6H PRN IV NAUSEA/VOMITING; Start 10/07/18 at 12:30 Acetaminophen (Tylenol Tab) 650 mg Q6H PRN PO .PAIN 1-3 OR TEMP Last administered on 10/16/18at 18:56; Admin Dose 650 MG; Start 10/07/18 at 12:30 Acetaminophen/ Hydrocodone Bitart ([place] (5/325)) 1 tab Q6H PRN PO .PAIN 4-6 Last administered on 10/19/18at 22:32; Admin Dose 1 TAB; Start 10/07/18 at 12:30 Clonidine (Catapres) 0.1 mg BID PO Last administered on 10/16/18at 08:46; Admin Dose 0.1 MG; Start 10/07/18 at 22:00; Status Hold Diagnostic Test (Pha) (Accu-Chek) 1 ea 02 XX Last administered on 10/20/18at 02:01; Admin Dose 1 EA; Start 10/08/18 at 02:00 Miscellaneous Information 1 ea NOTE XX ; Start 10/07/18 at 21:00 Glucose (Glutose) 15 gm Q15M PRN PO DECREASED GLUCOSE; Start 10/07/18 at 21:00 Glucose (Glutose) 22.5 gm Q15M PRN PO DECREASED GLUCOSE; Start 10/07/18 at 21:00 Dextrose (D50w Syringe) 25 ml Q15M PRN IV DECREASED GLUCOSE; Start 10/07/18 at 2 1:00 Dextrose (D50w Syringe) 50 ml Q15M PRN IV DECREASED GLUCOSE; Start 10/07/18 at 21:00 Glucagon (Glucagen) 1 mg Q15M PRN IM DECREASED GLUCOSE; Start 10/07/18 at 21:00 Glucose (Glutose) 15 gm Q15M PRN BUCCAL DECREASED GLUCOSE; Start 10/07/18 at 21:00 Collagenase (Santyl) 1 applic DAILY TOP Last administered on 10/20/18at 09:06; Admin Dose 1 APPLIC; Start 10/09/18 at 19:00 Sodium Hypochlorite (Dakins Diluted (40)) 1 applic DAILY TP Last administered on 10/20/18at 09:07; Admin Dose 1 APPLIC; Start 10/11/18 at 09:00 Quetiapine Fumarate (Seroquel) 25 mg BID@0900,1200 PO Last administered on at 13:08; Admin Dose 25 MG; Start 10/11/18 at 12:00 Quetiapine Fumarate (Seroquel) 50 mg HS PO Last administered on 10/19/18at 20:40; Admin Dose 50 MG; Start 10/11/18 at 21:00 Vancomycin HCl (Vanco Iv Per Pharmacy) VANCOMYCIN PER PHARMACY PER PROTOCOL XX ; Start 10/13/18 at 15:00 Insulin Glargine (Lantus) 12 units DAILY@1200 SC Last administered on 10/20/18at 13:09; Admin Dose 12 UNITS; Start 10/13/18 at 15:30 Vancomycin HCl 250 ml @ 125 mls/hr Q36H IVPB Last administered on 10/19/18at 16 :22; Admin Dose 125 MLS/HR; Start 10/15/18 at 05:00 Morphine Sulfate (morphine) 2 mg Q4H PRN IV SEVERE PAIN LEVEL 7-10 Last administered on 10/20/18at 10:17; Admin Dose 2 MG; Start 10/15/18 at 21:00 Collagenase (Santyl) 1 applic DAILY TOP Last administered on 10/20/18at 09:06; Admin Dose 1 APPLIC; Start 10/17/18 at 12:00 Ceftriaxone Sodium 50 ml @ 100 mls/hr Q24H IVPB Last administered on 10/20/18at 14:00; Admin Dose 100 MLS/HR; Start 10/18/18 at 14:00; Stop 11/18/18 at 21:00 Dextrose/Sodium Chloride 1,000 ml @ 60 mls/hr [id number] IV Last administered on 10/20/18at 04:19; Admin Dose 60 MLS/HR; Start 10/20/18 at 04:00 Insulin Aspart (Novolog Insulin Pen) (Adult SC Insulin - Mild Algorithm)... AC MEALS AND BEDTIME SC ; Start 10/20/18 at 17:35 BARBARA ORDAZ NP Oct 20, 2018 15:13
[2018-10-20] MEDS: Insulin NOVOLOG SS MILD Algorithm (SS with meals and bedtime) SC SCH ×2 (17:16→20:22)
[2018-10-20] MEDS ORDERED: INSULIN ASPART [NOVOLOG] 3 ML PEN SC SCH (18:05)
--- NOTE | 2018-10-20 19:30 | CONS ---
Assessment/Plan Assessment/Plan Assessment/Plan (Daily) Assessment/Plan Assessment/Plan (Daily) Hospital Course (Demo Recall) 82 yo female with hl/o anemia 1. Urinary tract infection. 2. Sepsis. -gram positive rods in foot wound cx. -pos urine cx 3. Status post coronary artery bypass graft. 4. Peripheral vascular disease. 5. Atrial fibrillation. 6. Status post surgery for renal cell carcinoma 8 years ago. 7. Diabetes. 8. Hypertension. 9. Severe anemia. -IV iron 10. Transaminitis -elevated ALT/AST -improving -CBD 7mm, t bili wnl. 11. Elevated CEA: 24.1 12. Chronic gastritis 13. S/P EGD 10/13 14. Fatty liver with possible hepatocellular disease noted on US PLAN: Pt needs colonoscopy at some point if patient can tolerate bowel prep [facility] and for active GI bleeding Gastric pathology unremarkable Gastrografin enema in a.m. it was not done. A KUB done which showed colon was full of stool Consultation Date/Type/Reason Admit Date/Time Oct 07, 2018 at 03:37 Initial Consult Date 10/07/18 Requesting Provider: JAGJIT MONTES MD Date/Time of Note DATE: 10/20/18 TIME: 19:29 Exam/Review of Systems Exam Vitals Vital Signs Date Temp Pulse Resp B/P (MAP) Pulse Ox O2 O2 Flow FiO2 Time Delivery Rate 10/20/18 98.1 69 18 158/72 98 14:00 (100) 10/19/18 Nasal 2.0 23:30 Cannula 10/19/18 27 19:25 Intake and Output 10/19/18 10/19/18 10/20/18 1515:00 23:00 07:00 IntakeIntake Total 50 ml 650 ml 60 ml OutputOutput Total 900 ml 100 ml BalanceBalance 50 ml -250 ml -40 ml Constitutional: alert, oriented, well developed Psych: no complaints, nl mood/affect Head: normocephalic, atraumatic Eyes: nl conjunctiva, EOMI, nl lids, nl sclera, PERRL ENMT: nl external ears & nose, nl lips & teeth, nl nasal mucosa & septum Neck: supple, non-tender Respiratory: clear to auscultation, normal air movement Cardiovascular: regular rate and rhythm, nl pulses Gastrointestinal: soft, nl liver, spleen, non-tender Musculoskeletal: nl extremities to inspection, nl gait and stance Extremities: normal pulses Neurological: [employer] II-XII intact, nl mental status, nl speech, nl strength Skin: nl turgor; No rash or lesions Lymph: nl lymph nodes Results Result Diagram: 10/20/18 0434 10/20/18 0434 Results 24hrs Laboratory Tests Test 10/19/18 20:33 10/20/18 01:59 10/20/18 04:34 10/20/18 05:28 Bedside Glucose 162 120 80 White Blood Count 8.8 Red Blood Count 3.38 L Hemoglobin 9.0 L Hematocrit 29.4 L Mean Corpuscular 87.0 Volume Mean Corpuscular 26.6 L Hemoglobin Mean Corpuscular 30.6 L Hemoglobin Concent Red Cell 18.5 H Distribution Width Platelet Count 200 Mean Platelet Volume 10.7 H Immature 0.500 H Granulocytes % Neutrophils % 56.8 Lymphocytes % 30.3 Monocytes % 9.8 Eosinophils % 2.3 Basophils % 0.3 Nucleated Red Blood 0.0 Cells % Immature 0.040 H Granulocytes # Neutrophils # 5.0 Lymphocytes # 2.7 Monocytes # 0.9 Eosinophils # 0.2 Basophils # 0.0 Nucleated Red Blood 0.0 Cells # Sodium Level 138 Potassium Level 4.1 Chloride Level 112 H Carbon Dioxide Level 24 Anion Gap 2 L Blood Urea Nitrogen 19 Creatinine 0.82 Est Glomerular Filtrat Rate mL/min Glucose Level 78 Calcium Level 8.7 Test 10/20/18 09:01 10/20/18 13:04 10/20/18 17:15 Bedside Glucose 85 78 76 Medications Medication Current Medications Allopurinol (Zyloprim) 100 mg BID PO Last administered on 10/19/18at 20:40; Admin Dose 100 MG; Start 10/07/18 at 21:00 Aspirin (Halfprin) 81 mg DAILY PO Last administered on 10/08/18at 08:14; Admin Dose 81 MG; Start 10/08/18 at 09:00; Status Hold Docusate Sodium (Colace) 100 mg TID PO Last administered on 10/20/18at 13:08; Admin Dose 100 MG; Start 10/07/18 at 21:00 Pantoprazole (Protonix Tab) 40 mg DAILY@06 PO Last administered on 10/19/18at 06:01; Admin Dose 40 MG; Start 10/08/18 at 06:00 IV Flush (NS 3 ml) 3 ml PER PROTOCOL IV ; Start 10/07/18 at 12:30 Ondansetron HCl (Zofran Inj) 4 mg Q6H PRN IV NAUSEA/VOMITING; Start 10/07/18 at 12:30 Acetaminophen (Tylenol Tab) 650 mg Q6H PRN PO .PAIN 1-3 OR TEMP Last administered on 10/16/18at 18:56; Admin Dose 650 MG; Start 10/07/18 at 12:30 Acetaminophen/ Hydrocodone Bitart ([place] (5/325)) 1 tab Q6H PRN PO .PAIN 4-6 Last administered on 10/19/18at 22:32; Admin Dose 1 TAB; Start 10/07/18 at 12:30 Clonidine (Catapres) 0.1 mg BID PO Last administered on 10/16/18at 08:46; Admin Dose 0.1 MG; Start 10/07/18 at 22:00; Status Hold Diagnostic Test (Pha) (Accu-Chek) 1 ea 02 XX Last administered on 10/20/18at 02:01; Admin Dose 1 EA; Start 10/08/18 at 02:00 Miscellaneous Information 1 ea NOTE XX ; Start 10/07/18 at 21:00 Glucose (Glutose) 15 gm Q15M PRN PO DECREASED GLUCOSE; Start 10/07/18 at 21:00 Glucose (Glutose) 22.5 gm Q15M PRN PO DECREASED GLUCOSE; Start 10/07/18 at 21:00 Dextrose (D50w Syringe) 25 ml Q15M PRN IV DECREASED GLUCOSE; Start 10/07/18 at 21:00 Dextrose (D50w Syringe) 50 ml Q15M PRN IV DECREASED GLUCOSE; Start 10/07/18 at 21:00 Glucagon (Glucagen) 1 mg Q15M PRN IM DECREASED GLUCOSE; Start 10/07/18 at 21:00 Glucose (Glutose) 15 gm Q15M PRN BUCCAL DECREASED GLUCOSE; Start 10/07/18 at 21:00 Collagenase (Santyl) 1 applic DAILY TOP Last administered on 10/20/18at 09:06; Admin Dose 1 APPLIC; Start 10/09/18 at 19:00 Sodium Hypochlorite (Dakins Diluted ()) 1 applic DAILY TP Last administered on 10/20/18 09:07; Admin Dose 1 APPLIC; Start 10/11/18 at 09:00 Quetiapine Fumarate (Seroquel) 25 mg BID@0900,1200 PO Last administered on 10/20/18 13:08; Admin Dose 25 MG; Start 10/11/18 at 12:00 Quetiapine Fumarate (Seroquel) 50 mg HS PO Last administered on 10/19/18 20:40; Admin Dose 50 MG; Start 10/11/18 at 21:00 Vancomycin HCl (Vanco Iv Per Pharmacy) VANCOMYCIN PER PHARMACY PER PROTOCOL XX ; Start 10/13/18 at 15:00 Insulin Glargine (Lantus) 12 units DAILY@1200 SC Last administered on 10/20/18 13:09; Admin Dose 12 UNITS; Start 10/13/18 at 15:30 Vancomycin HCl 250 ml @ 125 mls/hr Q36H IVPB Last administered on 10/19/18 16:22; Admin Dose 125 MLS/HR; Start 10/15/18 at 05:00 Morphine Sulfate (morphine) 2 mg Q4H PRN IV SEVERE PAIN LEVEL 7-10 Last administered on 10/20/18 18:25; Admin Dose 2 MG; Start 10/15/18 at 21:00 Collagenase (Santyl) 1 applic DAILY TOP Last administered on 10/20/18 09:06; Admin Dose 1 APPLIC; Start 10/17/18 at 12:00 Ceftriaxone Sodium 50 ml @ 100 mls/hr Q24H IVPB Last administered on 10/20/18 14:00; Admin Dose 100 MLS/HR; Start 10/18/18 at 14:00; Stop 11/18/18 at 21:00 Dextrose/Sodium Chloride 1,000 ml @ 60 mls/hr [id number] IV Last administered on 10/20/18 04:19; Admin Dose 60 MLS/HR; Start 10/20/18 at 04:00 Insulin Aspart (Novolog Insulin Pen) (Adult SC Insulin - Mild Algorithm)... AC MEALS AND BEDTIME SC ; Start 10/20/18 at 17:35 VELIA CASTRO MD Oct 20, 2018 19:30
[2018-10-20 19:59] VITALS: BP 163/72; PULSE 73; RESP 18
[2018-10-20] MEDS: HYDROCODONE/APAP (5/325) TAB PO PRN (20:11)
[2018-10-20] MEDS: LUBIPROSTONE 24 MCG CAP PO SCH (21:24)
[2018-10-21] MEDS: ACCU-CHEK XX SCH (01:14)
[2018-10-21 02:06] VITALS: BP 125/61; PULSE 75; RESP 18
[2018-10-21] MEDS: Insulin NOVOLOG SS MILD Algorithm (NPO/TPN/ENTERAL FEEDS) SC SCH ×5 (05:00→20:16)
[2018-10-21] MEDS ORDERED: INSULIN ASPART [NOVOLOG] 3 ML PEN SC SCH (05:00)
[2018-10-21] MEDS: VANCOMYCIN 1 GM 250 ML IVPB SCH (05:14)
[2018-10-21] MEDS: PANTOPRAZOLE (EC) 40 MG TAB PO SCH (05:17)
[2018-10-21 08:00] VITALS: BP 141/64; PULSE 66; RESP 16
[2018-10-21] MEDS: DEXTROSE 50% 50 ML SYRINGE IV PRN (08:09)
[2018-10-21] MEDS: DOCUSATE SODIUM 100 MG CAP PO SCH ×3 (08:13→20:17)
[2018-10-21] MEDS: QUETIAPINE 25 MG TAB PO SCH ×3 (08:13→20:18)
[2018-10-21] MEDS: ALLOPURINOL 100 MG TAB PO SCH ×2 (08:13→20:18)
[2018-10-21] MEDS: LUBIPROSTONE 24 MCG CAP PO SCH ×2 (08:14→20:18)
[2018-10-21] MEDS: COLLAGENASE 5 GM (UD JAR) TOP SCH ×2 (09:00)
[2018-10-21] MEDS: DAKINS 0.0125%(1/40) 473 ML SOLUTION TP SCH (09:00)
--- NOTE | 2018-10-21 09:42 | PN ---
"Date/Time of Note Date/Time of Note DATE: 10/21/18 TIME: 09:38 Assessment/Plan Lines/Catheters IV Catheter Type (from Nrsg): Saline Lock Odonnell in Place (from Nrsg): Yes Assessment/Plan Chief Complaint/Hosp Course 1. Right buttock wound; Foot wound with osteo- -debridement of right buttock wound as needed -continue local care -frequent turning and off-loading -low air loss mattress -vitamin c -short term zinc -optimize nutrition -foot wounds per podiatry> status post debridement currently with wound VAC -calf wound per vascular 2. UTI: -abx per sensitivity -frequent bladder emptying/cath care 3. BRANDON: Resolved; hypoechoic lesion left kidney, possible neoplasm; hx of renal ca and nephrectomy -Monitor -armenta for neoplasm>per medical team 4. Microcytic hypochromic anemia: sp prbc tx -monitor -transfuse as needed 5. Obesity bmi 31 -diet and exercise optimization -encourage weight loss 6. Poor appetite: -supportive -treat infections 7. Hepatic steatosis: -nutrition and weight optimization -medical fu 8. Gastritis: -PPI 9. Constipation: now + bowel function -per gi 10. Diabetes with hypoglycemic episode -glucose optimization - med adjustment per medical team Thank you. Patient seen and examined in collaboration with Dr. Isaac Erwin. Subjective 24 Hr Interval Summary + bowel function. + wound vac. Hypoglycemic episode. No fevers, labored breathing, congested cough, vomting, diarrhea, sz, rash. Appears comfortable. Nonverbal indicators of pain not present. Exam/Review of Systems Vital Signs Vitals Vital Signs Date Temp Pulse Resp B/P (MAP) Pulse Ox O2 O2 Flow FiO2 Time Delivery Rate 10/21/18 Nasal 2.0 09:00 Cannula 10/21/18 97.5 66 16 141/64 99 08:00 (89) 10/19/18 27 19:25 Intake and Output 10/20/18 10/20/18 10/21/18 1515:00 23:00 07:00 IntakeIntake Total 170 ml 640 ml 540 ml OutputOutput Total 450 ml 600 ml BalanceBalance 170 ml 190 ml -60 ml Exam Free Text/Dictation Constitutional: alert; No oriented (confused) Psych: anxiety Head: normocephalic, atraumatic Eyes: nl conjunctiva, EOMI, nl lids, nl sclera ENMT: nl external ears & nose, nl nasal mucosa & septum, mucosa pink and moist Neck: supple, non-tender Respiratory: normal air movement; No congested cough Cardiovascular: regular rate and rhythm, nl pulses; No edema Gastrointestinal: soft, non-tender; No distended, No rebound or guarding Genitourinary - Female: nl external genitalia Musculoskeletal: nl extremities to inspection, muscle weakness (gen weakness) Extremities: normal pulses; No edema, No pitting pedal edema Neurological: nl speech; No nl mental status (forgetful), No nl strength (gen weakness) Skin: other (Multiple wounds: right buttock: clean, granulating, no periwound erythema/drainage/odor | Left calf:min slough, min alecia wound erythema | Bilateral foot wounds; r foot w wound vac); No rash or lesions Results Result Diagram: 10/21/18 0506 10/21/18 0506 JUSTINE GUEVARA NP Oct 21, 2018 09:42"
--- NOTE | 2018-10-21 09:56 | CONS ---
Assessment/Plan Assessment/Plan Assessment/Plan (Daily) 1. acute hyperkalemia due to BRANDON resolved 2 .acute kidney injury on CKD III due to ATN from sepsis + prerenal azotemia- Improving 3. Sepsis due to UTI and PNA 4. acute UTI 5. H/o partial nephrectomy possibly due to RCC as per family 6. H/o CAD s/p CABG , Cardiomyopathy with EF 50%, Chronic Systolic HF, 7. H/O HTN 8. h/o DM II 9. Paroxysmal atrial fibrillation 10. acute encephalpahty possibly due to uremic and metabolic encephalopathy 11. 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 H/o HTN 13. H/o DM II 14. h/O paroxysmal atrial fibrillation Plan: BUN/Cr 16/0.76, Othe electrolytes stable , ID recommended Cetriaxone + vancomycin till 11/18/18 for OM Renal US showed No hydronephrosis. No nephrolithiasis.- 3.1 x 2 x 2.1 centimeter hypoechoic lesion arising from the lower pole of the left kidney. Follow-up to exclude neoplasm. There is echogenic material layering within the dependent portion of the bladder. Follow up to exclude infectious, inflammatory, or neoplastic process.- Atrophic left kidney- Family refused MRI abdomen ok to d/c to SNF as per Primary team plan will follow up Consultation Date/Type/Reason Admit Date/Time Oct 07, 2018 at 03:37 Initial Consult Date 10/07/18 Type of Consult NEPHROLOGY Requesting Provider: JAGJIT MONTES MD Date/Time of Note DATE: 10/21/18 TIME: 09:55 Exam/Review of Systems Exam Vitals Vital Signs Date Temp Pulse Resp B/P (MAP) Pulse Ox O2 O2 Flow FiO2 Time Delivery Rate 10/21/18 Nasal 2.0 09:00 Cannula 10/21/18 97.5 66 16 141/64 99 08:00 (89) 10/19/18 27 19:25 Intake and Output 10/20/18 10/20/18 10/21/18 1515:00 23:00 07:00 IntakeIntake Total 170 ml 640 ml 540 ml OutputOutput Total 450 ml 600 ml BalanceBalance 170 ml 190 ml -60 ml Exam Constitutional: alert, oriented Respiratory: diminished breath sounds Cardiovascular: irregular rhythm Gastrointestinal: soft, non-tender Genitourinary - Male: other (Incontinent of urine) Musculoskeletal: nl extremities to inspection Extremities: normal pulses Neurological: nl mental status Skin: other (Right foot wound with dressing) Results Result Diagram: 10/21/18 0506 10/21/18 0506 Results 24hrs Laboratory Tests Test 10/20/18 13:04 10/20/18 17:15 10/20/18 20:21 10/21/18 05:06 Bedside Glucose 78 76 133 White Blood Count 10.0 Red Blood Count 3.79 L Hemoglobin 10.0 L Hematocrit 33.7 L Mean Corpuscular 88.9 Volume Mean Corpuscular 26.4 L Hemoglobin Mean Corpuscular 29.7 L Hemoglobin Concent Red Cell 18.2 H Distribution Width Platelet Count 237 Mean Platelet Volume 9.9 Immature 0.400 Granulocytes % Neutrophils % 64.6 Lymphocytes % 24.7 Monocytes % 8.5 Eosinophils % 1.2 Basophils % 0.6 Nucleated Red Blood 0.0 Cells % Immature 0.040 H Granulocytes # Neutrophils # 6.5 Lymphocytes # 2.5 Monocytes # 0.9 Eosinophils # 0.1 Basophils # 0.1 Nucleated Red Blood 0.0 Cells # Sodium Level 137 Potassium Level 4.2 Chloride Level 110 Carbon Dioxide Level 24 Anion Gap 3 L Blood Urea Nitrogen 16 Creatinine 0.76 Est Glomerular Filtrat Rate mL/min Glucose Level 92 Calcium Level 8.8 Test 10/21/18 05:15 10/21/18 08:04 10/21/18 08:06 10/21/18 08:25 Bedside Glucose 88 61 L 66 L 108 Test 10/21/18 08:41 Bedside Glucose 107 Medications Medication Current Medications Allopurinol (Zyloprim) 100 mg BID PO Last administered on 10/20/18at 20:11; Admin Dose 100 MG; Start 10/07/18 at 21:00 Aspirin (Halfprin) 81 mg DAILY PO Last administered on 10/08/18at 08:14; Admin Dose 81 MG; Start 10/08/18 at 09:00; Status Hold Docusate Sodium (Colace) 100 mg TID PO Last administered on 10/20/18at 20:13; Admin Dose 100 MG; Start 10/07/18 at 21:00 Pantoprazole (Protonix Tab) 40 mg DAILY@06 PO Last administered on 10/19/18at 06:01; Admin Dose 40 MG; Start 10/08/18 at 06:00 IV Flush (NS 3 ml) 3 ml PER PROTOCOL IV ; Start 10/07/18 at 12:30 Ondansetron HCl (Zofran Inj) 4 mg Q6H PRN IV NAUSEA/VOMITING; Start 10/07/18 at 12:30 Acetaminophen (Tylenol Tab) 650 mg Q6H PRN PO .PAIN 1-3 OR TEMP Last administered on 10/16/18at 18:56; Admin Dose 650 MG; Start 10/07/18 at 12:30 Acetaminophen/ Hydrocodone Bitart ([place] (5/325)) 1 tab Q6H PRN PO .PAIN 4-6 Last administered on 10/20/18at 20:11; Admin Dose 1 TAB; Start 10/07/18 at 12:30 Clonidine (Catapres) 0.1 mg BID PO Last administered on 10/16/18 08:46; Admin Dose 0.1 MG; Start 10/07/18 at 22:00; Status Hold Miscellaneous Information 1 ea NOTE XX ; Start 10/07/18 at 21:00 Glucose (Glutose) 15 gm Q15M PRN PO DECREASED GLUCOSE; Start 10/07/18 at 21:00 Glucose (Glutose) 22.5 gm Q15M PRN PO DECREASED GLUCOSE; Start 10/07/18 at 21:00 Dextrose (D50w Syringe) 25 ml Q15M PRN IV DECREASED GLUCOSE Last administered on 10/21/18at 08:09; Admin Dose 25 ML; Start 10/07/18 at 21:00 Dextrose (D50w Syringe) 50 ml Q15M PRN IV DECREASED GLUCOSE; Start 10/07/18 at 21:00 Glucagon (Glucagen) 1 mg Q15M PRN IM DECREASED GLUCOSE; Start 10/07/18 at 21:00 Glucose (Glutose) 15 gm Q15M PRN BUCCAL DECREASED GLUCOSE; Start 10/07/18 at 21:00 Collagenase (Santyl) 1 applic DAILY TOP Last administered on 10/20/18at 09:06; Admin Dose 1 APPLIC; Start 10/09/18 at 19:00 Sodium Hypochlorite (Dakins Diluted (40)) 1 applic DAILY TP Last administered on 10/20/18at 09:07; Admin Dose 1 APPLIC; Start 10/11/18 at 09:00 Quetiapine Fumarate (Seroquel) 25 mg BID@0900,1200 PO Last administered on 10/20/18 13:08; Admin Dose 25 MG; Start 10/11/18 at 12:00 Quetiapine Fumarate (Seroquel) 50 mg HS PO Last administered on 10/20/18 20:12; Admin Dose 50 MG; Start 10/11/18 at 21:00 Vancomycin HCl (Vanco Iv Per Pharmacy) VANCOMYCIN PER PHARMACY PER PROTOCOL XX ; Start 10/13/18 at 15:00 Insulin Glargine (Lantus) 12 units DAILY@1200 SC Last administered on 10/20/18 13:09; Admin Dose 12 UNITS; Start 10/13/18 at 15:30 Vancomycin HCl 250 ml @ 125 mls/hr Q36H IVPB Last administered on 10/21/18 05:14; Admin Dose 125 MLS/HR; Start 10/15/18 at 05:00 Morphine Sulfate (morphine) 2 mg Q4H PRN IV SEVERE PAIN LEVEL 7-10 Last administered on 10/20/18 21:31; Admin Dose 2 MG; Start 10/15/18 at 21:00 Collagenase (Santyl) 1 applic DAILY TOP Last administered on 10/20/18 09:06; Admin Dose 1 APPLIC; Start 10/17/18 at 12:00 Ceftriaxone Sodium 50 ml @ 100 mls/hr Q24H IVPB Last administered on 10/20/18 14:00; Admin Dose 100 MLS/HR; Start 10/18/18 at 14:00; Stop 11/18/18 at 21:00 Dextrose/Sodium Chloride 1,000 ml @ 60 mls/hr [id number] IV Last administered on 10/20/18 20:24; Admin Dose 60 MLS/HR; Start 10/20/18 at 04:00 Lubiprostone (Amitiza) 24 mcg BID PO Last administered on 10/20/18 21:24; Admin Dose 24 MCG; Start 10/20/18 at 21:00 Insulin Aspart (Novolog Insulin Pen) (Adult SC Insulin - Mild Algorithm)... Q4 SC ; Start 10/21/18 at 05:00 EVA TREJO MD Oct 21, 2018 09:56
[2018-10-21] MEDS: INSULIN GLARGINE [LANTus] (100 UNITS/ML) SYG SC SCH (12:00)
[2018-10-21] MEDS: DEXTROSE 5%-0.45% NACL 1,000 ML IV SCH ×2 (13:20→20:28)
--- NOTE | 2018-10-21 13:41 | CONS ---
Assessment/Plan Assessment/Plan Hospital Course (Demo Recall) No events, sleeping, looks comfortable, no fevers Antimicrobials: Vancomycin, Rocephin Microbiology: Blood cultures negative, urine culture + MDR Kleb, repeat cx + yeast, Wound culture growing Proteus Chest x-ray on admission revealed no evidence of CHF or pneumonia. Renal ultrasound revealed no hydronephrosis and no nephrolithiasis. 3.1 x 2 x 2.1 cm hypoechoic lesion left pole of the kidney questionable neoplasm Physical examination: Well-developed chronically ill-appearing wasted elderly woman who is in no distress. Head atraumatic normocephalic neck is supple chest rise symmetrical breath sounds diminished bases. Heart: S1-S2. Abdomen soft bowel sounds present. Extremities with dependent bilateral lower extremities edema, R foot dsg Assessment: 1. S/p sepsis, present on admission 2. S/p Gram-negative melvi/yeast UTI 3. Acute on chronic anemia 4. Coronary artery disease with a history of CABG 5. Echo dense structure seen by tricuspid valve, right atrium and IVC-thrombus, vegetation versus tumor=== completed 6 weeks IV antibiotics> 6. History of renal cell carcinoma status post nephrectomy 7. Diabetes 8. R heel osteomyelitis status post debridement Plan: Remains unchanged, change abx to Cipro, wound care per podiatry Consultation Date/Type/Reason Admit Date/Time Oct 07, 2018 at 03:37 Initial Consult Date 10/07/18 Type of Consult id Requesting Provider: JAGJIT MONTES MD Date/Time of Note DATE: 10/21/18 TIME: 13:40 Exam/Review of Systems Exam Vitals Vital Signs Date Temp Pulse Resp B/P (MAP) Pulse Ox O2 O2 Flow FiO2 Time Delivery Rate 10/21/18 Nasal 2.0 09:00 Cannula 10/21/18 97.5 66 16 141/64 99 08:00 (89) 10/19/18 27 19:25 Intake and Output 10/20/18 10/20/18 10/21/18 1515:00 23:00 07:00 IntakeIntake Total 170 ml 640 ml 540 ml OutputOutput Total 450 ml 600 ml BalanceBalance 170 ml 190 ml -60 ml Results Result Diagram: 10/21/18 0506 10/21/18 0506 Results 24hrs Laboratory Tests Test 10/20/18 17:15 10/20/18 20:21 10/21/18 04:30 10/21/18 05:06 Bedside Glucose 76 133 Stool Occult Blood POSITIVE White Blood Count 10.0 Red Blood Count 3.79 L Hemoglobin 10.0 L Hematocrit 33.7 L Mean Corpuscular 88.9 Volume Mean Corpuscular 26.4 L Hemoglobin Mean Corpuscular 29.7 L Hemoglobin Concent Red Cell 18.2 H Distribution Width Platelet Count 237 Mean Platelet Volume 9.9 Immature 0.400 Granulocytes % Neutrophils % 64.6 Lymphocytes % 24.7 Monocytes % 8.5 Eosinophils % 1.2 Basophils % 0.6 Nucleated Red Blood 0.0 Cells % Immature 0.040 H Granulocytes # Neutrophils # 6.5 Lymphocytes # 2.5 Monocytes # 0.9 Eosinophils # 0.1 Basophils # 0.1 Nucleated Red Blood 0.0 Cells # Sodium Level 137 Potassium Level 4.2 Chloride Level 110 Carbon Dioxide Level 24 Anion Gap 3 L Blood Urea Nitrogen 16 Creatinine 0.76 Est Glomerular Filtrat Rate mL/min Glucose Level 92 Calcium Level 8.8 Test 10/21/18 05:15 10/21/18 08:04 10/21/18 08:06 10/21/18 08:25 Bedside Glucose 88 61 L 66 L 108 Test 10/21/18 08:41 10/21/18 12:09 Bedside Glucose 107 73 Medications Medication Current Medications Allopurinol (Zyloprim) 100 mg BID PO Last administered on 10/20/18at 20:11; Admin Dose 100 MG; Start 10/07/18 at 21:00 Aspirin (Halfprin) 81 mg DAILY PO Last administered on 10/08/18at 08:14; Admin Dose 81 MG; Start 10/08/18 at 09:00; Status Hold Docusate Sodium (Colace) 100 mg TID PO Last administered on 10/20/18at 20:13; Admin Dose 100 MG; Start 10/07/18 at 21:00 Pantoprazole (Protonix Tab) 40 mg DAILY@06 PO Last administered on 10/19/18at 06:01; Admin Dose 40 MG; Start 10/08/18 at 06:00 IV Flush (NS 3 ml) 3 ml PER PROTOCOL IV ; Start 10/07/18 at 12:30 Ondansetron HCl (Zofran Inj) 4 mg Q6H PRN IV NAUSEA/VOMITING; Start 10/07/18 at 12:30 Acetaminophen (Tylenol Tab) 650 mg Q6H PRN PO .PAIN 1-3 OR TEMP Last administered on 10/16/18at 18:56; Admin Dose 650 MG; Start 10/07/18 at 12:30 Acetaminophen/ Hydrocodone Bitart ([place] (5/325)) 1 tab Q6H PRN PO .PAIN 4-6 Last administered on 10/20/18at 20:11; Admin Dose 1 TAB; Start 10/07/18 at 12:30 Clonidine (Catapres) 0.1 mg BID PO Last administered on 10/16/18at 08:46; Admin Dose 0.1 MG; Start 10/07/18 at 22:00; Status Hold Miscellaneous Information 1 ea NOTE XX ; Start 10/07/18 at 21:00 Glucose (Glutose) 15 gm Q15M PRN PO DECREASED GLUCOSE; Start 10/07/18 at 21:00 Glucose (Glutose) 22.5 gm Q15M PRN PO DECREASED GLUCOSE; Start 10/07/18 at 21:00 Dextrose (D50w Syringe) 25 ml Q15M PRN IV DECREASED GLUCOSE Last administered on 10/21/18 08:09; Admin Dose 25 ML; Start 10/07/18 at 21:00 Dextrose (D50w Syringe) 50 ml Q15M PRN IV DECREASED GLUCOSE; Start 10/07/18 at 21:00 Glucagon (Glucagen) 1 mg Q15M PRN IM DECREASED GLUCOSE; Start 10/07/18 at 21:00 Glucose (Glutose) 15 gm Q15M PRN BUCCAL DECREASED GLUCOSE; Start 10/07/18 at 21:00 Collagenase (Santyl) 1 applic DAILY TOP Last administered on 10/20/18at 09:06; Admin Dose 1 APPLIC; Start 10/09/18 at 19:00 Sodium Hypochlorite (Dakins Diluted ()) 1 applic DAILY TP Last administered on 10/20/18at 09:07; Admin Dose 1 APPLIC; Start 10/11/18 at 09:00 Quetiapine Fumarate (Seroquel) 25 mg BID@0900,1200 PO Last administered on 10/20/18at 13:08; Admin Dose 25 MG; Start 10/11/18 at 12:00 Quetiapine Fumarate (Seroquel) 50 mg HS PO Last administered on 10/20/18 20:12; Admin Dose 50 MG; Start 10/11/18 at 21:00 Vancomycin HCl (Vanco Iv Per Pharmacy) VANCOMYCIN PER PHARMACY PER PROTOCOL XX ; Start 10/13/18 at 15:00 Insulin Glargine (Lantus) 12 units DAILY@1200 SC Last administered on 10/20/18 13:09; Admin Dose 12 UNITS; Start 10/13/18 at 15:30 Vancomycin HCl 250 ml @ 125 mls/hr Q36H IVPB Last administered on 10/21/18 05:14; Admin Dose 125 MLS/HR; Start 10/15/18 at 05:00 Morphine Sulfate (morphine) 2 mg Q4H PRN IV SEVERE PAIN LEVEL 7-10 Last administered on 10/20/18 21:31; Admin Dose 2 MG; Start 10/15/18 at 21:00 Collagenase (Santyl) 1 applic DAILY TOP Last administered on 10/20/18 09:06; Admin Dose 1 APPLIC; Start 10/17/18 at 12:00 Ceftriaxone Sodium 50 ml @ 100 mls/hr Q24H IVPB Last administered on 10/20/18 14:00; Admin Dose 100 MLS/HR; Start 10/18/18 at 14:00; Stop 11/18/18 at 21:00 Dextrose/Sodium Chloride 1,000 ml @ 60 mls/hr [id number] IV Last administered on 10/20/18at 20:24; Admin Dose 60 MLS/HR; Start 10/20/18 at 04:00 Lubiprostone (Amitiza) 24 mcg BID PO Last administered on 10/20/18at 21:24; Admin Dose 24 MCG; Start 10/20/18 at 21:00 Insulin Aspart (Novolog Insulin Pen) (Adult SC Insulin - Mild Algorithm)... Q4 SC ; Start 10/21/18 at 05:00 Miscellaneous Information (*Rx Drug Level Order Reminder*) 1 1600 ONCE XX ; Start 10/22/18 at 16:00; Stop 10/22/18 at 16:01 BARBARA ORDAZ NP Oct 21, 2018 13:41
--- NOTE | 2018-10-21 15:46 | CONS ---
Assessment/Plan Assessment/Plan Assessment/Plan (Daily) Right heel decubitus ulceration stage 4 DM2 with peripheral neuropathy Right foot osteomyelitis Right 5th digit nevus PAD Left lower extremity ulceration Sepsis 2/2 to UTI and early pneumonia Lack of mobility Delirium Plan Continue with wound VAC and change MWF with wound care nurse and continue with offloading of heels. Intra op wound culture showing proteus mirabilis. Intra op path of right 5th digit skin lesion showing compound melanocytic nevus, predominantly intradermal. Melanin incontinence. No evidence of dysplasia or malignancy. Intra op heel bone pathology showed acute osteomyelitis. Continue with abx per ID recommendations. Left lower extremity ulceration being followed by Dr. Garcia. Appreciate vascular surgery input from Dr. Garcia. Consultation Date/Type/Reason Admit Date/Time Oct 07, 2018 at 03:37 Initial Consult Date 10/10/18 Requesting Provider: JAGJIT MONTES MD Date/Time of Note DATE: 10/21/18 TIME: 15:45 24 HR Interval Summary Free Text/Dictation No acute events overnight. Exam/Review of Systems Exam Vitals Vital Signs Date Temp Pulse Resp B/P (MAP) Pulse Ox O2 O2 Flow FiO2 Time Delivery Rate 10/21/18 Nasal 2.0 09:00 Cannula 10/21/18 97.5 66 16 141/64 99 08:00 (89) 10/19/18 27 19:25 Intake and Output 10/20/18 10/20/18 10/21/18 1515:00 23:00 07:00 IntakeIntake Total 170 ml 640 ml 540 ml OutputOutput Total 450 ml 600 ml BalanceBalance 170 ml 190 ml -60 ml Exam wound VAC dressings clean dry and intact No strikethrough Serosanguinous drainage noted to canister 125mmHg low continuous therapy Results Result Diagram: 10/21/18 0506 10/21/18 0506 Results 24hrs Laboratory Tests Test 10/20/18 17:15 10/20/18 20:21 10/21/18 04:30 10/21/18 05:06 Bedside Glucose 76 133 Stool Occult Blood POSITIVE White Blood Count 10.0 Red Blood Count 3.79 L Hemoglobin 10.0 L Hematocrit 33.7 L Mean Corpuscular 88.9 Volume Mean Corpuscular 26.4 L Hemoglobin Mean Corpuscular 29.7 L Hemoglobin Concent Red Cell 18.2 H Distribution Width Platelet Count 237 Mean Platelet Volume 9.9 Immature 0.400 Granulocytes % Neutrophils % 64.6 Lymphocytes % 24.7 Monocytes % 8.5 Eosinophils % 1.2 Basophils % 0.6 Nucleated Red Blood 0.0 Cells % Immature 0.040 H Granulocytes # Neutrophils # 6.5 Lymphocytes # 2.5 Monocytes # 0.9 Eosinophils # 0.1 Basophils # 0.1 Nucleated Red Blood 0.0 Cells # Sodium Level 137 Potassium Level 4.2 Chloride Level 110 Carbon Dioxide Level 24 Anion Gap 3 L Blood Urea Nitrogen 16 Creatinine 0.76 Est Glomerular Filtrat Rate mL/min Glucose Level 92 Calcium Level 8.8 Test 10/21/18 05:15 10/21/18 08:04 10/21/18 08:06 10/21/18 08:25 Bedside Glucose 88 61 L 66 L 108 Test 10/21/18 08:41 10/21/18 12:09 Bedside Glucose 107 73 Medications Medication Current Medications Allopurinol (Zyloprim) 100 mg BID PO Last administered on 10/20/18at 20:11; Admin Dose 100 MG; Start 10/07/18 at 21:00 Aspirin (Halfprin) 81 mg DAILY PO Last administered on 10/08/18at 08:14; Admin Dose 81 MG; Start 10/08/18 at 09:00; Status Hold Docusate Sodium (Colace) 100 mg TID PO Last administered on 10/20/18at 20:13; Admin Dose 100 MG; Start 10/07/18 at 21:00 Pantoprazole (Protonix Tab) 40 mg DAILY@06 PO Last administered on 10/19/18at 06:01; Admin Dose 40 MG; Start 10/08/18 at 06:00 IV Flush (NS 3 ml) 3 ml PER PROTOCOL IV ; Start 10/07/18 at 12:30 Ondansetron HCl (Zofran Inj) 4 mg Q6H PRN IV NAUSEA/VOMITING; Start 10/07/18 at 12:30 Acetaminophen (Tylenol Tab) 650 mg Q6H PRN PO .PAIN 1-3 OR TEMP Last administered on 10/16/18at 18:56; Admin Dose 650 MG; Start 10/07/18 at 12:30 Acetaminophen/ Hydrocodone Bitart ([place] (5/325)) 1 tab Q6H PRN PO .PAIN 4-6 Last administered on 10/20/18 20:11; Admin Dose 1 TAB; Start 10/07/18 at 12:30 Clonidine (Catapres) 0.1 mg BID PO Last administered on 10/16/18at 08:46; Admin Dose 0.1 MG; Start 10/07/18 at 22:00; Status Hold Miscellaneous Information 1 ea NOTE XX ; Start 10/07/18 at 21:00 Glucose (Glutose) 15 gm Q15M PRN PO DECREASED GLUCOSE; Start 10/07/18 at 21:00 Glucose (Glutose) 22.5 gm Q15M PRN PO DECREASED GLUCOSE; Start 10/07/18 at 21:00 Dextrose (D50w Syringe) 25 ml Q15M PRN IV DECREASED GLUCOSE Last administered on 10/21/18 08:09; Admin Dose 25 ML; Start 10/07/18 at 21:00 Dextrose (D50w Syringe) 50 ml Q15M PRN IV DECREASED GLUCOSE; Start 10/07/18 at 21:00 Glucagon (Glucagen) 1 mg Q15M PRN IM DECREASED GLUCOSE; Start 10/07/18 at 21:00 Glucose (Glutose) 15 gm Q15M PRN BUCCAL DECREASED GLUCOSE; Start 10/07/18 at 21:00 Collagenase (Santyl) 1 applic DAILY TOP Last administered on 10/20/18at 09:06; Admin Dose 1 APPLIC; Start 10/09/18 at 19:00 Sodium Hypochlorite (Dakins Diluted (1/40)) 1 applic DAILY TP Last administered on 10/20/18 09:07; Admin Dose 1 APPLIC; Start 10/11/18 at 09:00 Quetiapine Fumarate (Seroquel) 25 mg BID@0900,1200 PO Last administered on 10/20/18 13:08; Admin Dose 25 MG; Start 10/11/18 at 12:00 Quetiapine Fumarate (Seroquel) 50 mg HS PO Last administered on 10/20/18at 20:12; Admin Dose 50 MG; Start 10/11/18 at 21:00 Insulin Glargine (Lantus) 12 units DAILY@1200 SC Last administered on 10/20/18at 13:09; Admin Dose 12 UNITS; Start 10/13/18 at 15:30 Morphine Sulfate (morphine) 2 mg Q4H PRN IV SEVERE PAIN LEVEL 7-10 Last administered on 10/20/18at 21:31; Admin Dose 2 MG; Start 10/15/18 at 21:00 Collagenase (Santyl) 1 applic DAILY TOP Last administered on 10/20/18at 09:06; Admin Dose 1 APPLIC; Start 10/17/18 at 12:00 Dextrose/Sodium Chloride 1,000 ml @ 60 mls/hr [id number] IV Last administered on 10/20/18at 20:24; Admin Dose 60 MLS/HR; Start 10/20/18 at 04:00 Lubiprostone (Amitiza) 24 mcg BID PO Last administered on 10/20/18at 21:24; Admin Dose 24 MCG; Start 10/20/18 at 21:00 Insulin Aspart (Novolog Insulin Pen) (Adult SC Insulin - Mild Algorithm)... Q4 SC ; Start 10/21/18 at 05:00 Ciprofloxacin (Cipro) 500 mg BID@06,18 PO ; Start 10/21/18 at 18:00 NANCY DIANE DPM Oct 21, 2018 15:46
[2018-10-21 17:19] VITALS: BP 188/75; PULSE 76; RESP 16
[2018-10-21] MEDS: CIPROFLOXACIN 500 MG TAB PO SCH (17:20)
[2018-10-21] MEDS ORDERED: hydrALAzine 20 MG INJ IV PRN (17:30)
[2018-10-21] MEDS: LISINOPRIL 20 MG TAB PO SCH (17:51)
[2018-10-21 17:56] VITALS: BP 134/60
--- NOTE | 2018-10-21 18:52 | CONS ---
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 Echo dense structure seen by tricuspid valve, right atrium and IVC-thrombus, vegetation versus tumor CAD with history of CABG History of renal carcinoma status post nephrectomy approximately 8 years ago History of hypertension Diabetes Paroxysmal atrial fibrillation, intolerant to anticoagulation Mental status better today and following commands and answering some questions Titrate antihypertensives as needed Consultation Date/Type/Reason Admit Date/Time Oct 07, 2018 at 03:37 Initial Consult Date 10/07/18 Type of Consult Cardiology Requesting Provider: JAGJIT MONTES MD Date/Time of Note DATE: 10/21/18 TIME: 18:51 24 HR Interval Summary Free Text/Dictation More awake, conversing with son Exam/Review of Systems Vital Signs Vitals Vital Signs Date Temp Pulse Resp B/P (MAP) Pulse Ox O2 O2 Flow FiO2 Time Delivery Rate 10/21/18 134/60 96 Room Air 17:56 (84) 10/21/18 98.1 76 16 17:19 10/21/18 2 16:26 10/19/18 27 19:25 Intake and Output 10/20/18 10/20/18 10/21/18 1515:00 23:00 07:00 IntakeIntake Total 170 ml 640 ml 540 ml OutputOutput Total 450 ml 600 ml BalanceBalance 170 ml 190 ml -60 ml Exam Constitutional: alert (Conversing with son, no apparent distress) Head: normocephalic Respiratory: other (Coarse breath sounds bilaterally, no wheezing) Cardiovascular: regular rate and rhythm (S1-S2 heard) Gastrointestinal: soft, non-tender, bowel sounds Extremities: edema Labs Result Diagram: 10/21/18 0506 10/21/18 0506 Results 24hrs Laboratory Tests Test 10/20/18 20:21 10/21/18 04:30 10/21/18 05:06 10/21/18 05:15 Bedside Glucose 133 88 Stool Occult Blood POSITIVE White Blood Count 10.0 Red Blood Count 3.79 L Hemoglobin 10.0 L Hematocrit 33.7 L Mean Corpuscular 88.9 Volume Mean Corpuscular 26.4 L Hemoglobin Mean Corpuscular 29.7 L Hemoglobin Concent Red Cell 18.2 H Distribution Width Platelet Count 237 Mean Platelet Volume 9.9 Immature 0.400 Granulocytes % Neutrophils % 64.6 Lymphocytes % 24.7 Monocytes % 8.5 Eosinophils % 1.2 Basophils % 0.6 Nucleated Red Blood 0.0 Cells % Immature 0.040 H Granulocytes # Neutrophils # 6.5 Lymphocytes # 2.5 Monocytes # 0.9 Eosinophils # 0.1 Basophils # 0.1 Nucleated Red Blood 0.0 Cells # Sodium Level 137 Potassium Level 4.2 Chloride Level 110 Carbon Dioxide Level 24 Anion Gap 3 L Blood Urea Nitrogen 16 Creatinine 0.76 Est Glomerular Filtrat Rate mL/min Glucose Level 92 Calcium Level 8.8 Test 10/21/18 08:04 10/21/18 08:06 10/21/18 08:25 10/21/18 08:41 Bedside Glucose 61 L 66 L 108 107 Test 10/21/18 12:09 10/21/18 15:59 Bedside Glucose 73 97 Medications Medications Current Medications Allopurinol (Zyloprim) 100 mg BID PO Last administered on 10/20/18at 20:11; Admin Dose 100 MG; Start 10/07/18 at 21:00 Aspirin (Halfprin) 81 mg DAILY PO Last administered on 10/08/18at 08:14; Admin Dose 81 MG; Start 10/08/18 at 09:00; Status Hold Docusate Sodium (Colace) 100 mg TID PO Last administered on 10/20/18at 20:13; Admin Dose 100 MG; Start 10/07/18 at 21:00 Pantoprazole (Protonix Tab) 40 mg DAILY@06 PO Last administered on 10/19/18at 06:01; Admin Dose 40 MG; Start 10/08/18 at 06:00 IV Flush (NS 3 ml) 3 ml PER PROTOCOL IV ; Start 10/07/18 at 12:30 Ondansetron HCl (Zofran Inj) 4 mg Q6H PRN IV NAUSEA/VOMITING; Start 10/07/18 at 12:30 Acetaminophen (Tylenol Tab) 650 mg Q6H PRN PO .PAIN 1-3 OR TEMP Last administered on 10/16/18at 18:56; Admin Dose 650 MG; Start 10/07/18 at 12:30 Acetaminophen/ Hydrocodone Bitart ([place] (5/325)) 1 tab Q6H PRN PO .PAIN 4-6 Last administered on 10/20/18at 20:11; Admin Dose 1 TAB; Start 10/07/18 at 12:30 Clonidine (Catapres) 0.1 mg BID PO Last administered on 10/16/18at 08:46; Admin Dose 0.1 MG; Start 10/07/18 at 22:00; Status Hold Miscellaneous Information 1 ea NOTE XX ; Start 10/07/18 at 21:00 Glucose (Glutose) 15 gm Q15M PRN PO DECREASED GLUCOSE; Start 10/07/18 at 21:00 Glucose (Glutose) 22.5 gm Q15M PRN PO DECREASED GLUCOSE; Start 10/07/18 at 21:00 Dextrose (D50w Syringe) 25 ml Q15M PRN IV DECREASED GLUCOSE Last administered on 10/21/18at 08:09; Admin Dose 25 ML; Start 10/07/18 at 21:00 Dextrose (D50w Syringe) 50 ml Q15M PRN IV DECREASED GLUCOSE; Start 10/07/18 at 21:00 Glucagon (Glucagen) 1 mg Q15M PRN IM DECREASED GLUCOSE; Start 10/07/18 at 21:00 Glucose (Glutose) 15 gm Q15M PRN BUCCAL DECREASED GLUCOSE; Start 10/07/18 at 21:00 Collagenase (Santyl) 1 applic DAILY TOP Last administered on 10/20/18at 09:06; Admin Dose 1 APPLIC; Start 10/09/18 at 19:00 Sodium Hypochlorite (Dakins Diluted (40)) 1 applic DAILY TP Last administered on 10/20/18at 09:07; Admin Dose 1 APPLIC; Start 10/11/18 at 09:00 Quetiapine Fumarate (Seroquel) 25 mg BID@0900,1200 PO Last administered on 10/20/18at 13:08; Admin Dose 25 MG; Start 10/11/18 at 12:00 Quetiapine Fumarate (Seroquel) 50 mg HS PO Last administered on 10/20/18at 20:12; Admin Dose 50 MG; Start 10/11/18 at 21:00 Morphine Sulfate (morphine) 2 mg Q4H PRN IV SEVERE PAIN LEVEL 7-10 Last administered on 10/20/18at 21:31; Admin Dose 2 MG; Start 10/15/18 at 21:00 Collagenase (Santyl) 1 applic DAILY TOP Last administered on 10/20/18at 09:06; Admin Dose 1 APPLIC; Start 10/17/18 at 12:00 Dextrose/Sodium Chloride 1,000 ml @ 60 mls/hr [id number] IV Last administered on 10/20/18at 20:24; Admin Dose 60 MLS/HR; Start 10/20/18 at 04:00 Lubiprostone (Amitiza) 24 mcg BID PO Last administered on 10/20/18at 21:24; Admi n Dose 24 MCG; Start 10/20/18 at 21:00 Insulin Aspart (Novolog Insulin Pen) (Adult SC Insulin - Mild Algorithm)... Q4 SC ; Start 10/21/18 at 05:00 Ciprofloxacin (Cipro) 500 mg BID@06,18 PO Last administered on 10/21/18at 17:20; Admin Dose 500 MG; Start 10/21/18 at 18:00 Insulin Glargine (Lantus) 8 units DAILY@1200 SC ; Start 10/22/18 at 12:00 Lisinopril (Zestril) 20 mg DAILY PO Last administered on 10/21/18at 17:51; Admin Dose 20 MG; Start 10/21/18 at 17:30 Hydralazine HCl (Apresoline) 10 mg Q4H PRN IV >160/95; Start 10/21/18 at 17:30 Alex Chávez DO Oct 21, 2018 18:52
--- NOTE | 2018-10-21 19:37 | CONS ---
Assessment/Plan Assessment/Plan Assessment/Plan (Daily) Hospital Course (Demo Recall) 82 yo female with hl/o anemia 1. Urinary tract infection. 2. Sepsis. -gram positive rods in foot wound cx. -pos urine cx 3. Status post coronary artery bypass graft. 4. Peripheral vascular disease. 5. Atrial fibrillation. 6. Status post surgery for renal cell carcinoma 8 years ago. 7. Diabetes. 8. Hypertension. 9. Severe anemia. -IV iron 10. Transaminitis -elevated ALT/AST -improving -CBD 7mm, t bili wnl. 11. Elevated CEA: 24.1 12. Chronic gastritis 13. S/P EGD 10/13 14. Fatty liver with possible hepatocellular disease noted on US PLAN: Pt needs colonoscopy at some point if patient can tolerate bowel prep [facility] and for active GI bleeding Gastric pathology unremarkable Gastrografin enema in a.m. it was not done. A KUB done which showed colon was full of stool Dulcolax tablet Colonoscopy tomorrow Consultation Date/Type/Reason Admit Date/Time Oct 07, 2018 at 03:37 Initial Consult Date 10/07/18 Requesting Provider: JAGJIT MONTES MD Date/Time of Note DATE: 10/21/18 TIME: 19:36 24 HR Interval Summary Free Text/Dictation Had good bowel movement after multiple tap water enema's and as per the staff patient is clean now Exam/Review of Systems Exam Vitals Vital Signs Date Temp Pulse Resp B/P (MAP) Pulse Ox O2 O2 Flow FiO2 Time Delivery Rate 10/21/18 2.0 18:55 10/21/18 134/60 96 Room Air 17:56 (84) 10/21/18 98.1 76 16 17:19 10/19/18 27 19:25 Intake and Output 10/20/18 10/20/18 10/21/18 1515:00 23:00 07:00 IntakeIntake Total 170 ml 640 ml 540 ml OutputOutput Total 450 ml 600 ml BalanceBalance 170 ml 190 ml -60 ml Constitutional: alert, oriented, well developed Psych: no complaints, nl mood/affect Head: normocephalic, atraumatic Eyes: nl conjunctiva, EOMI, nl lids, nl sclera, PERRL ENMT: nl external ears & nose, nl lips & teeth, nl nasal mucosa & septum Neck: supple, non-tender Respiratory: clear to auscultation, normal air movement Cardiovascular: regular rate and rhythm, nl pulses Gastrointestinal: soft, nl liver, spleen, non-tender Musculoskeletal: nl extremities to inspection, nl gait and stance Extremities: normal pulses Neurological: CLASSIFIER TENDER II-XII intact, nl mental status, nl speech, nl strength Skin: nl turgor; No rash or lesions Lymph: nl lymph nodes Results Result Diagram: 10/21/18 0506 10/21/18 0506 Results 24hrs Laboratory Tests Test 10/20/18 20:21 10/21/18 04:30 10/21/18 05:06 10/21/18 05:15 Bedside Glucose 133 88 Stool Occult Blood POSITIVE White Blood Count 10.0 Red Blood Count 3.79 L Hemoglobin 10.0 L Hematocrit 33.7 L Mean Corpuscular 88.9 Volume Mean Corpuscular 26.4 L Hemoglobin Mean Corpuscular 29.7 L Hemoglobin Concent Red Cell 18.2 H Distribution Width Platelet Count 237 Mean Platelet Volume 9.9 Immature 0.400 Granulocytes % Neutrophils % 64.6 Lymphocytes % 24.7 Monocytes % 8.5 Eosinophils % 1.2 Basophils % 0.6 Nucleated Red Blood 0.0 Cells % Immature 0.040 H Granulocytes # Neutrophils # 6.5 Lymphocytes # 2.5 Monocytes # 0.9 Eosinophils # 0.1 Basophils # 0.1 Nucleated Red Blood 0.0 Cells # Sodium Level 137 Potassium Level 4.2 Chloride Level 110 Carbon Dioxide Level 24 Anion Gap 3 L Blood Urea Nitrogen 16 Creatinine 0.76 Est Glomerular Filtrat Rate mL/min Glucose Level 92 Calcium Level 8.8 Test 10/21/18 08:04 10/21/18 08:06 10/21/18 08:25 10/21/18 08:41 Bedside Glucose 61 L 66 L 108 107 Test 10/21/18 12:09 10/21/18 15:59 Bedside Glucose 73 97 Medications Medication Current Medications Allopurinol (Zyloprim) 100 mg BID PO Last administered on 10/20/18at 20:11; Admin Dose 100 MG; Start 10/07/18 at 21:00 Aspirin (Halfprin) 81 mg DAILY PO Last administered on 10/08/18at 08:14; Admin Dose 81 MG; Start 10/08/18 at 09:00; Status Hold Docusate Sodium (Colace) 100 mg TID PO Last administered on 10/20/18at 20:13; Admin Dose 100 MG; Start 10/07/18 at 21:00 Pantoprazole (Protonix Tab) 40 mg DAILY@06 PO Last administered on 10/19/18at 06:01; Admin Dose 40 MG; Start 10/08/18 at 06:00 IV Flush (NS 3 ml) 3 ml PER PROTOCOL IV ; Start 10/07/18 at 12:30 Ondansetron HCl (Zofran Inj) 4 mg Q6H PRN IV NAUSEA/VOMITING; Start 10/07/18 at 12:30 Acetaminophen (Tylenol Tab) 650 mg Q6H PRN PO .PAIN 1-3 OR TEMP Last administered on 10/16/18at 18:56; Admin Dose 650 MG; Start 10/07/18 at 12:30 Acetaminophen/ Hydrocodone Bitart ([place] (5/325)) 1 tab Q6H PRN PO .PAIN 4-6 Last administered on 10/20/18at 20:11; Admin Dose 1 TAB; Start 10/07/18 at 12:30 Clonidine (Catapres) 0.1 mg BID PO Last administered on 10/16/18at 08:46; Admin Dose 0.1 MG; Start 10/07/18 at 22:00; Status Hold Miscellaneous Information 1 ea NOTE XX ; Start 10/07/18 at 21:00 Glucose (Glutose) 15 gm Q15M PRN PO DECREASED GLUCOSE; Start 10/07/18 at 21:00 Glucose (Glutose) 22.5 gm Q15M PRN PO DECREASED GLUCOSE; Start 10/07/18 at 21:00 Dextrose (D50w Syringe) 25 ml Q15M PRN IV DECREASED GLUCOSE Last administered on 10/21/18 08:09; Admin Dose 25 ML; Start 10/07/18 at 21:00 Dextrose (D50w Syringe) 50 ml Q15M PRN IV DECREASED GLUCOSE; Start 10/07/18 at 21:00 Glucagon (Glucagen) 1 mg Q15M PRN IM DECREASED GLUCOSE; Start 10/07/18 at 21:00 Glucose (Glutose) 15 gm Q15M PRN BUCCAL DECREASED GLUCOSE; Start 10/07/18 at 21:00 Collagenase (Santyl) 1 applic DAILY TOP Last administered on 10/20/18 09:06; Admin Dose 1 APPLIC; Start 10/09/18 at 19:00 Sodium Hypochlorite (Dakins Diluted (40)) 1 applic DAILY TP Last administered on 10/20/18 09:07; Admin Dose 1 APPLIC; Start 10/11/18 at 09:00 Quetiapine Fumarate (Seroquel) 25 mg BID@0900,1200 PO Last administered on 10/20/18 13:08; Admin Dose 25 MG; Start 10/11/18 at 12:00 Quetiapine Fumarate (Seroquel) 50 mg HS PO Last administered on 10/20/18 20:12; Admin Dose 50 MG; Start 10/11/18 at 21:00 Morphine Sulfate (morphine) 2 mg Q4H PRN IV SEVERE PAIN LEVEL 7-10 Last administered on 10/20/18 21:31; Admin Dose 2 MG; Start 10/15/18 at 21:00 Collagenase (Santyl) 1 applic DAILY TOP Last administered on 10/20/18 09:06; Admin Dose 1 APPLIC; Start 10/17/18 at 12:00 Dextrose/Sodium Chloride 1,000 ml @ 60 mls/hr [id number] IV Last administered on 10/20/18 20:24; Admin Dose 60 MLS/HR; Start 10/20/18 at 04:00 Lubiprostone (Amitiza) 24 mcg BID PO Last administered on 10/20/18 21:24; Admin Dose 24 MCG; Start 10/20/18 at 21:00 Insulin Aspart (Novolog Insulin Pen) (Adult SC Insulin - Mild Algorithm)... Q4 SC ; Start 10/21/18 at 05:00 Ciprofloxacin (Cipro) 500 mg BID@06,18 PO Last administered on 10/21/18 17:20; Admin Dose 500 MG; Start 10/21/18 at 18:00 Insulin Glargine (Lantus) 8 units DAILY@1200 SC ; Start 10/22/18 at 12:00 Lisinopril (Zestril) 20 mg DAILY PO Last administered on 10/21/18at 17:51; Admin Dose 20 MG; Start 10/21/18 at 17:30 Hydralazine HCl (Apresoline) 10 mg Q4H PRN IV >160/95; Start 10/21/18 at 17:30 VELIA CASTRO MD Oct 21, 2018 19:36
[2018-10-21 20:00] VITALS: BP 141/69; PULSE 74; RESP 18
[2018-10-21] MEDS ORDERED: BISACODYL (EC) 5 MG TAB PO ONE (20:00)
--- NOTE | 2018-10-21 22:52 | PN ---
Date/Time of Note Date/Time of Note DATE: 10/21/18 TIME: 22:39 Assessment/Plan VTE Prophylaxis Risk score (from [facility])>0 risk: 9 SCD applied (from [facility]): No SCD contraindicated: bilateral LE trauma Pharmacological prophylaxis: NA/contraindicated Pharm contraindication: anticoag not tolerated Lines/Catheters [facility] ([facility] Mid Line Central line still needed: Yes Urinary Cath still in place: Yes Reason Cath still needed: urinary retention Assessment/Plan Hospital Course Patient is more appropriate today, calm. Pt' s condition and plan of care discussed with pt's son. Assessment/Plan -Chronic gastritis per EGD, continue PPI. -Anemia, history of emesis at home and loss of appetite. Dr. Winkler is following in gastroenterology consultation. Colonoscopy recommended however patient is unable to take p.o. prep, patient's son refused NG tube placement. Patient is not able to tolerate Gastrografin enema. -Sepsis secondary to urinary tract infection and possible early pneumonia, resolving. Continue antibiotics per ID. Dr. Elias is following in infection disease consultation. -UTI. Status post treatment with antibiotics. -Hyperkalemia, resolved, status post treatment -Acute kidney injury, continue gentle hydration, monitor BUN and creatinine. Dr. Arreaga is following in nephrology consultation. -Hypertension -Systolic congestive heart failure. Dr. Chávez is following in cardiology consultation. -Cardiomyopathy with ejection fraction 50% -Atrial fibrillation, patient did not tolerate anticoagulation in the past due to bleeding and anemia, patient was on aspirin which is currently held due significant drop in hemoglobin. -Coronary artery disease, status post CABG -Diabetes mellitus type 2, continue Lantus and pre-meal NovoLog. -History of endocarditis, status post treatment -Sacral, right foot, and left garcia wounds present on admission. Continue current care per wound care recommendations. -Right heel wound with early osteomyelitis, status post debridement and application of allograft and wound VAC on 10/15/2018, Dr. Garland is following and podiatry consultation. Continue antibiotics per ID. -History of left femoral artery thrombectomy, left garcia open wound. Continue current wound care. Dr. Dawson is following in vascular surgery consultation. No inpatient procedures planned. Further recommendations based on clinical course. Plan of care discussed with Dr. Mi. Result Diagram: 10/21/18 0506 10/21/18 0506 Results 24hrs Laboratory Tests Test 10/21/18 04:30 10/21/18 05:06 10/21/18 05:15 10/21/18 08:04 Stool Occult Blood POSITIVE White Blood Count 10.0 Red Blood Count 3.79 L Hemoglobin 10.0 L Hematocrit 33.7 L Mean Corpuscular 88.9 Volume Mean Corpuscular 26.4 L Hemoglobin Mean Corpuscular 29.7 L Hemoglobin Concent Red Cell 18.2 H Distribution Width Platelet Count 237 Mean Platelet Volume 9.9 Immature 0.400 Granulocytes % Neutrophils % 64.6 Lymphocytes % 24.7 Monocytes % 8.5 Eosinophils % 1.2 Basophils % 0.6 Nucleated Red Blood 0.0 Cells % Immature 0.040 H Granulocytes # Neutrophils # 6.5 Lymphocytes # 2.5 Monocytes # 0.9 Eosinophils # 0.1 Basophils # 0.1 Nucleated Red Blood 0.0 Cells # Sodium Level 137 Potassium Level 4.2 Chloride Level 110 Carbon Dioxide Level 24 Anion Gap 3 L Blood Urea Nitrogen 16 Creatinine 0.76 Est Glomerular Filtrat Rate mL/min Glucose Level 92 Calcium Level 8.8 Bedside Glucose 88 61 L Test 10/21/18 08:06 10/21/18 08:25 10/21/18 08:41 10/21/18 12:09 Bedside Glucose 66 L 108 107 73 Test 10/21/18 15:59 10/21/18 20:15 Bedside Glucose 97 175 Exam/Review of Systems Exam Vitals Vital Signs Date Temp Pulse Resp B/P (MAP) Pulse Ox O2 O2 Flow FiO2 Time Delivery Rate 10/21/18 2.0 18:55 10/21/18 134/60 96 Room Air 17:56 (84) 10/21/18 98.1 76 16 17:19 10/19/18 27 19:25 Intake and Output 10/20/18 10/20/18 10/21/18 1515:00 23:00 07:00 IntakeIntake Total 170 ml 640 ml 540 ml OutputOutput Total 450 ml 600 ml BalanceBalance 170 ml 190 ml -60 ml Exam Constitutional: alert, frail Head: normocephalic Respiratory: clear to auscultation Cardiovascular: regular rate and rhythm Gastrointestinal: soft, non-tender Musculoskeletal: nl extremities to inspection Extremities: normal pulses, other (Right foot wound with wound VAC) Skin: other (Left garcia and sacral wounds) Results Results 24hrs Laboratory Tests Test 10/21/18 04:30 10/21/18 05:06 10/21/18 05:15 10/21/18 08:04 Stool Occult Blood POSITIVE White Blood Count 10.0 Red Blood Count 3.79 L Hemoglobin 10.0 L Hematocrit 33.7 L Mean Corpuscular 88.9 Volume Mean Corpuscular 26.4 L Hemoglobin Mean Corpuscular 29.7 L Hemoglobin Concent Red Cell 18.2 H Distribution Width Platelet Count 237 Mean Platelet Volume 9.9 Immature 0.400 Granulocytes % Neutrophils % 64.6 Lymphocytes % 24.7 Monocytes % 8.5 Eosinophils % 1.2 Basophils % 0.6 Nucleated Red Blood 0.0 Cells % Immature 0.040 H Granulocytes # Neutrophils # 6.5 Lymphocytes # 2.5 Monocytes # 0.9 Eosinophils # 0.1 Basophils # 0.1 Nucleated Red Blood 0.0 Cells # Sodium Level 137 Potassium Level 4.2 Chloride Level 110 Carbon Dioxide Level 24 Anion Gap 3 L Blood Urea Nitrogen 16 Creatinine 0.76 Est Glomerular Filtrat Rate mL/min Glucose Level 92 Calcium Level 8.8 Bedside Glucose 88 61 L Test 10/21/18 08:06 10/21/18 08:25 10/21/18 08:41 10/21/18 12:09 Bedside Glucose 66 L 108 107 73 Test 10/21/18 15:59 10/21/18 20:15 Bedside Glucose 97 175 Medications Medication Current Medications Allopurinol (Zyloprim) 100 mg BID PO Last administered on 10/20/18at 20:11; Admin Dose 100 MG; Start 10/07/18 at 21:00 Aspirin (Halfprin) 81 mg DAILY PO Last administered on 10/08/18at 08:14; Admin Dose 81 MG; Start 10/08/18 at 09:00; Status Hold Docusate Sodium (Colace) 100 mg TID PO Last administered on 10/20/18at 20:13; Admin Dose 100 MG; Start 10/07/18 at 21:00 Pantoprazole (Protonix Tab) 40 mg DAILY@06 PO Last administered on 10/19/18at 06:01; Admin Dose 40 MG; Start 10/08/18 at 06:00 IV Flush (NS 3 ml) 3 ml PER PROTOCOL IV ; Start 10/07/18 at 12:30 Ondansetron HCl (Zofran Inj) 4 mg Q6H PRN IV NAUSEA/VOMITING; Start 10/07/18 at 12:30 Acetaminophen (Tylenol Tab) 650 mg Q6H PRN PO .PAIN 1-3 OR TEMP Last administered on 10/16/18 18:56; Admin Dose 650 MG; Start 10/07/18 at 12:30 Acetaminophen/ Hydrocodone Bitart ([place] (5/325)) 1 tab Q6H PRN PO .PAIN 4-6 Last administered on 10/20/18 20:11; Admin Dose 1 TAB; Start 10/07/18 at 12:30 Clonidine (Catapres) 0.1 mg BID PO Last administered on 10/16/18 08:46; Admin Dose 0.1 MG; Start 10/07/18 at 22:00; Status Hold Miscellaneous Information 1 ea NOTE XX ; Start 10/07/18 at 21:00 Glucose (Glutose) 15 gm Q15M PRN PO DECREASED GLUCOSE; Start 10/07/18 at 21:00 Glucose (Glutose) 22.5 gm Q15M PRN PO DECREASED GLUCOSE; Start 10/07/18 at 21:00 Dextrose (D50w Syringe) 25 ml Q15M PRN IV DECREASED GLUCOSE Last administered on 10/21/18 08:09; Admin Dose 25 ML; Start 10/07/18 at 21:00 Dextrose (D50w Syringe) 50 ml Q15M PRN IV DECREASED GLUCOSE; Start 10/07/18 at 21:00 Glucagon (Glucagen) 1 mg Q15M PRN IM DECREASED GLUCOSE; Start 10/07/18 at 21:00 Glucose (Glutose) 15 gm Q15M PRN BUCCAL DECREASED GLUCOSE; Start 10/07/18 at 21:00 Collagenase (Santyl) 1 applic DAILY TOP Last administered on 10/20/18 09:06; Admin Dose 1 APPLIC; Start 10/09/18 at 19:00 Sodium Hypochlorite (Dakins Diluted (40)) 1 applic DAILY TP Last administered on 10/20/18 09:07; Admin Dose 1 APPLIC; Start 10/11/18 at 09:00 Quetiapine Fumarate (Seroquel) 25 mg BID@0900,1200 PO Last administered on 10/20/18 13:08; Admin Dose 25 MG; Start 10/11/18 at 12:00 Quetiapine Fumarate (Seroquel) 50 mg HS PO Last administered on 10/20/18 20:12; Admin Dose 50 MG; Start 10/11/18 at 21:00 Morphine Sulfate (morphine) 2 mg Q4H PRN IV SEVERE PAIN LEVEL 7-10 Last administered on 10/20/18 21:31; Admin Dose 2 MG; Start 10/15/18 at 21:00 Collagenase (Santyl) 1 applic DAILY TOP Last administered on 10/20/18 09:06; Admin Dose 1 APPLIC; Start 10/17/18 at 12:00 Dextrose/Sodium Chloride 1,000 ml @ 60 mls/hr [id number] IV Last administered on 10/20/18 20:24; Admin Dose 60 MLS/HR; Start 10/20/18 at 04:00 Lubiprostone (Amitiza) 24 mcg BID PO Last administered on 10/20/18 21:24; Admin Dose 24 MCG; Start 10/20/18 at 21:00 Insulin Aspart (Novolog Insulin Pen) (Adult SC Insulin - Mild Algorithm)... Q4 SC ; Start 10/21/18 at 05:00 Ciprofloxacin (Cipro) 500 mg BID@06,18 PO Last administered on 10/21/18 17:20; Admin Dose 500 MG; Start 10/21/18 at 18:00 Insulin Glargine (Lantus) 8 units DAILY@1200 SC ; Start 10/22/18 at 12:00 Lisinopril (Zestril) 20 mg DAILY PO Last administered on 10/21/18 17:51; Admin Dose 20 MG; Start 10/21/18 at 17:30 Hydralazine HCl (Apresoline) 10 mg Q4H PRN IV >160/95; Start 10/21/18 at 17:30 OCTAVIANO SHAFFER Oct 21, 2018 22:51
[2018-10-21] MEDS: HYDROCODONE/APAP (5/325) TAB PO PRN (23:48)
[2018-10-22] VITALS (12 sets, daily range): BP systolic 99–126; BP diastolic 51–65; PULSE 76–87; RESP 15–20
[2018-10-22] MEDS: Insulin NOVOLOG SS MILD Algorithm (NPO/TPN/ENTERAL FEEDS) SC SCH ×4 (01:52→12:40)
[2018-10-22] MEDS: DEXTROSE 5%-0.45% NACL 1,000 ML IV SCH ×2 (05:57→15:39)
[2018-10-22] MEDS: CIPROFLOXACIN 500 MG TAB PO SCH ×2 (05:58→20:45)
[2018-10-22] MEDS: PANTOPRAZOLE (EC) 40 MG TAB PO SCH (05:58)
[2018-10-22] MEDS: LUBIPROSTONE 24 MCG CAP PO SCH ×2 (08:43→20:45)
[2018-10-22] MEDS: QUETIAPINE 25 MG TAB PO SCH ×3 (08:43→20:47)
[2018-10-22] MEDS: LISINOPRIL 20 MG TAB PO SCH (08:43)
[2018-10-22] MEDS: DOCUSATE SODIUM 100 MG CAP PO SCH ×3 (08:43→20:45)
[2018-10-22] MEDS: ALLOPURINOL 100 MG TAB PO SCH ×2 (08:44→20:45)
[2018-10-22] MEDS: DAKINS 0.0125%(1/40) 473 ML SOLUTION TP SCH (09:00)
[2018-10-22] MEDS: COLLAGENASE 5 GM (UD JAR) TOP SCH ×2 (09:00)
--- NOTE | 2018-10-22 10:33 | PN ---
"Date/Time of Note Date/Time of Note DATE: 10/22/18 TIME: 10:33 Assessment/Plan Lines/Catheters IV Catheter Type (from Nrsg): Mid Line [place] in Place (from Nrsg): Yes Assessment/Plan Chief Complaint/Hosp Course 1. Right buttock wound; Foot wound with osteo; right buttock wound healing -debridement of right buttock wound as needed -continue local care -frequent turning and off-loading -low air loss mattress -vitamin c -short term zinc -optimize nutrition -foot wounds per podiatry> status post debridement currently with wound VAC -calf wound per vascular 2. UTI: -abx per sensitivity -frequent bladder emptying/cath care 3. BRANDON: Resolved; hypoechoic lesion left kidney, possible neoplasm; hx of renal ca and nephrectomy -Monitor -armenta for neoplasm>per medical team 4. Microcytic hypochromic anemia: sp prbc tx; colonoscopy pending today -monitor -transfuse as needed 5. Obesity bmi 31 -diet and exercise optimization -encourage weight loss 6. Poor appetite: -supportive -treat infections 7. Hepatic steatosis: -nutrition and weight optimization -medical fu 8. Gastritis: -PPI 9. Constipation: now + bowel function -per gi 10. Diabetes with hypoglycemic episode -glucose optimization - med adjustment per medical team Thank you. Patient seen and examined in collaboration with Dr. Isaac Erwin. Subjective 24 Hr Interval Summary Feels ok. Pending colonoscopy today. No fevers, labored breathing, congested cough, vomting, diarrhea, sz, rash. Appears comfortable. Nonverbal indicators of pain not present. Exam/Review of Systems Vital Signs Vitals Vital Signs Date Temp Pulse Resp B/P (MAP) Pulse Ox O2 O2 Flow FiO2 Time Delivery Rate 10/22/18 Nasal 2.0 09:00 Cannula 10/22/18 97.5 87 20 119/59 98 08:06 (79) 10/19/18 27 19:25 Intake and Output 10/21/18 10/21/18 10/22/18 1515:00 23:00 07:00 IntakeIntake Total 250 ml 960 ml OutputOutput Total 450 ml 0 ml BalanceBalance 250 ml 510 ml 0 ml Exam Free Text/Dictation Constitutional: alert; No oriented (confused) Psych: anxiety Head: normocephalic, atraumatic Eyes: nl conjunctiva, EOMI, nl lids, nl sclera ENMT: nl external ears & nose, nl nasal mucosa & septum, mucosa pink and moist Neck: supple, non-tender Respiratory: normal air movement; No congested cough Cardiovascular: regular rate and rhythm, nl pulses; No edema Gastrointestinal: soft, non-tender; No distended, No rebound or guarding Genitourinary - Female: nl external genitalia Musculoskeletal: nl extremities to inspection, muscle weakness (gen weakness) Extremities: normal pulses; No edema, No pitting pedal edema Neurological: nl speech; No nl mental status (forgetful), No nl strength (gen weakness) Skin: other (Multiple wounds: right buttock: clean, granulating, no periwound erythema/drainage/odor | Left calf:min slough, wrapped | Bilateral foot wounds; r foot w wound vac); No rash or lesions Results Result Diagram: 10/22/18 0631 10/22/18 0631 JUSTINE GUEVARA NP Oct 22, 2018 10:33"
[2018-10-22] MEDS: INSULIN GLARGINE [LANTus] (100 UNITS/ML) SYG SC SCH (13:00)
--- NOTE | 2018-10-22 13:18 | CONS ---
Assessment/Plan Assessment/Plan Assessment/Plan (Daily) 1. acute hyperkalemia due to BRANDON resolved 2 .acute kidney injury on CKD III due to ATN from sepsis + prerenal azotemia- Improving 3. Sepsis due to UTI and PNA 4. acute UTI 5. H/o partial nephrectomy possibly due to RCC as per family 6. H/o CAD s/p CABG , Cardiomyopathy with EF 50%, Chronic Systolic HF, 7. H/O HTN 8. h/o DM II 9. Paroxysmal atrial fibrillation 10. acute encephalpahty possibly due to uremic and metabolic encephalopathy 11. 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 H/o HTN 13. H/o DM II 14. h/O paroxysmal atrial fibrillation Plan: BUN/Cr 15/0.87, Othe electrolytes stable , ID recommended Cetriaxone + vancomycin till 11/18/18 for OM Renal US showed No hydronephrosis. No nephrolithiasis.- 3.1 x 2 x 2.1 centimeter hypoechoic lesion arising from the lower pole of the left kidney. Follow-up to exclude neoplasm. There is echogenic material layering within the dependent portion of the bladder. Follow up to exclude infectious, inflammatory, or neoplastic process.- Atrophic left kidney- Family refused MRI abdomen ok to d/c to SNF as per renal point of view will follow up Consultation Date/Type/Reason Admit Date/Time Oct 07, 2018 at 03:37 Initial Consult Date 10/07/18 Type of Consult NEPHROLOGY Requesting Provider: JAGJIT MONTES MD Date/Time of Note DATE: 10/22/18 TIME: 13:18 Exam/Review of Systems Exam Vitals Vital Signs Date Temp Pulse Resp B/P (MAP) Pulse Ox O2 O2 Flow FiO2 Time Delivery Rate 10/22/18 Nasal 2.0 09:00 Cannula 10/22/18 97.5 87 20 119/59 98 08:06 (79) 10/19/18 27 19:25 Intake and Output 10/21/18 10/21/18 10/22/18 1515:00 23:00 07:00 IntakeIntake Total 250 ml 960 ml OutputOutput Total 450 ml 0 ml BalanceBalance 250 ml 510 ml 0 ml Exam Constitutional: alert, oriented Respiratory: diminished breath sounds Cardiovascular: irregular rhythm Gastrointestinal: soft, non-tender Genitourinary - Male: other (Incontinent of urine) Musculoskeletal: nl extremities to inspection Extremities: normal pulses Neurological: nl mental status Skin: other (Right foot wound with dressing Results Result Diagram: 10/22/18 0631 10/22/18 0631 Results 24hrs Laboratory Tests Test 10/21/18 15:59 10/21/18 20:15 10/22/18 01:48 10/22/18 05:49 Bedside Glucose 97 175 163 232 H Test 10/22/18 06:31 10/22/18 08:39 10/22/18 12:36 White Blood Count 18.5 #H Red Blood Count 3.90 L Hemoglobin 10.4 L Hematocrit 33.7 L Mean Corpuscular 86.4 Volume Mean Corpuscular 26.7 L Hemoglobin Mean Corpuscular 30.9 L Hemoglobin Concent Red Cell 17.9 H Distribution Width Platelet Count 267 Mean Platelet Volume 9.9 Immature 0.600 H Granulocytes % Neutrophils % 93.5 H Lymphocytes % 3.1 L Monocytes % 2.4 Eosinophils % 0.1 Basophils % 0.3 Nucleated Red Blood 0.0 Cells % Immature 0.120 H Granulocytes # Neutrophils # 17.3 H Lymphocytes # 0.6 L Monocytes # 0.4 Eosinophils # 0.0 Basophils # 0.1 Nucleated Red Blood 0.0 Cells # Sodium Level 135 Potassium Level 3.9 Chloride Level 107 Carbon Dioxide Level 25 Anion Gap 3 L Blood Urea Nitrogen 15 Creatinine 0.87 Est Glomerular Filtrat Rate mL/min Glucose Level 224 #H Calcium Level 8.8 Bedside Glucose 223 H 190 Medications Medication Current Medications Allopurinol (Zyloprim) 100 mg BID PO Last administered on 10/21/18at 20:18; Admin Dose 100 MG; Start 10/07/18 at 21:00 Aspirin (Halfprin) 81 mg DAILY PO Last administered on 10/08/18at 08:14; Admin Dose 81 MG; Start 10/08/18 at 09:00; Status Hold Docusate Sodium (Colace) 100 mg TID PO Last administered on 10/21/18at 20:17; Admin Dose 100 MG; Start 10/07/18 at 21:00 Pantoprazole (Protonix Tab) 40 mg DAILY@06 PO Last administered on 10/19/18at 06:01; Admin Dose 40 MG; Start 10/08/18 at 06:00 IV Flush (NS 3 ml) 3 ml PER PROTOCOL IV ; Start 10/07/18 at 12:30 Ondansetron HCl (Zofran Inj) 4 mg Q6H PRN IV NAUSEA/VOMITING; Start 10/07/18 at 12:30 Acetaminophen (Tylenol Tab) 650 mg Q6H PRN PO .PAIN 1-3 OR TEMP Last adm inistered on 10/16/18at 18:56; Admin Dose 650 MG; Start 10/07/18 at 12:30 Acetaminophen/ Hydrocodone Bitart ([place] (5/325)) 1 tab Q6H PRN PO .PAIN 4-6 Last administered on 10/21/18at 23:48; Admin Dose 1 TAB; Start 10/07/18 at 12:30 Clonidine (Catapres) 0.1 mg BID PO Last administered on 10/16/18at 08:46; Admin Dose 0.1 MG; Start 10/07/18 at 22:00; Status Hold Miscellaneous Information 1 ea NOTE XX ; Start 10/07/18 at 21:00 Glucose (Glutose) 15 gm Q15M PRN PO DECREASED GLUCOSE; Start 10/07/18 at 21:00 Glucose (Glutose) 22.5 gm Q15M PRN PO DECREASED GLUCOSE; Start 10/07/18 at 21:00 Dextrose (D50w Syringe) 25 ml Q15M PRN IV DECREASED GLUCOSE Last administered on 10/21/18at 08:09; Admin Dose 25 ML; Start 10/07/18 at 21:00 Dextrose (D50w Syringe) 50 ml Q15M PRN IV DECREASED GLUCOSE; Start 10/07/18 at 21:00 Glucagon (Glucagen) 1 mg Q15M PRN IM DECREASED GLUCOSE; Start 10/07/18 at 21:00 Glucose (Glutose) 15 gm Q15M PRN BUCCAL DECREASED GLUCOSE; Start 10/07/18 at 21:00 Collagenase (Santyl) 1 applic DAILY TOP Last administered on 10/20/18at 09:06; Admin Dose 1 APPLIC; Start 10/09/18 at 19:00 Sodium Hypochlorite (Dakins Diluted ()) 1 applic DAILY TP Last administered on 10/20/18at 09:07; Admin Dose 1 APPLIC; Start 10/11/18 at 09:00 Quetiapine Fumarate (Seroquel) 25 mg BID@0900,1200 PO Last administered on 10/20/18 13:08; Admin Dose 25 MG; Start 10/11/18 at 12:00 Quetiapine Fumarate (Seroquel) 50 mg HS PO Last administered on 10/21/18 20:18; Admin Dose 50 MG; Start 10/11/18 at 21:00 Morphine Sulfate (morphine) 2 mg Q4H PRN IV SEVERE PAIN LEVEL 7-10 Last administered on 10/20/18 21:31; Admin Dose 2 MG; Start 10/15/18 at 21:00 Collagenase (Santyl) 1 applic DAILY TOP Last administered on 10/20/18 09:06; Admin Dose 1 APPLIC; Start 10/17/18 at 12:00 Dextrose/Sodium Chloride 1,000 ml @ 60 mls/hr [id number] IV Last administered on 10/21/18 20:28; Admin Dose 60 MLS/HR; Start 10/20/18 at 04:00 Lubiprostone (Amitiza) 24 mcg BID PO Last administered on 10/21/18 20:18; Admin Dose 24 MCG; Start 10/20/18 at 21:00 Insulin Aspart (Novolog Insulin Pen) (Adult SC Insulin - Mild Algorithm)... Q4 SC Last administered on 10/22/18 12:40; Admin Dose 2 UNIT; Start 10/21/18 at 05:00 Ciprofloxacin (Cipro) 500 mg BID@06,18 PO Last administered on 10/21/18 17:20; Admin Dose 500 MG; Start 10/21/18 at 18:00 Insulin Glargine (Lantus) 8 units DAILY@1200 SC Last administered on 10/22/18 13:00; Admin Dose 8 UNITS; Start 10/22/18 at 12:00 Lisinopril (Zestril) 20 mg DAILY PO Last administered on 10/21/18 17:51; Admin Dose 20 MG; Start 10/21/18 at 17:30 Hydralazine HCl (Apresoline) 10 mg Q4H PRN IV >160/95; Start 10/21/18 at 17:30 EVA TREJO MD Oct 22, 2018 13:18
--- NOTE | 2018-10-22 13:50 | PREAC ---
Date/Time of Note Date/Time of Note DATE: 10/22/18 TIME: 13:47 Anesthesia Eval and Record Evaluation Time Pre-Procedure Interview DATE: 10/22/18 TIME: 13:47 Age 82 Sex female NPO: 8 hrs Preoperative diagnosis colon screening Planned procedure colonoscopy Past Medical History Past Medical History: Includes Cardio: HTN, CAD, CABG, PTCA/Stent, Arrythmia (A-fib), CHF Endo: Diabetes Renal: BRANDON, Other (renal carcinoma) Hepatic: Other (fatty liver) Heme: Anemia Surgery & Anesthesia Issues No known issue Meds Anticoagulation: No Beta Rosalba within 24 hr: No Reason Beta Rosalba not given: Pt. not on B-Rosalba Active Scripts [Vancomycin Iv Per Pharmacy] 1 EA EACH No Conflict Check, 0 EA XX .PER PROTOCOL Prov:NUBIA TEJEDA MD 08/04/18 Reported Medications Clonidine Hcl* (Clonidine Hcl*) 0.1 Mg Tab, 0.1 MG PO Q8, TAB 06/25/18 Furosemide* (Furosemide*) 20 Mg Tablet, 20 MG PO DAILY 06/25/18 Carvedilol* (Carvedilol*) 3.125 Mg Tablet, 3.125 MG PO BID for 30 Days, #60 06/25/18 Amiodarone Hcl* (Amiodarone Hcl*) 200 Mg Tablet, 200 MG PO BID, #60 TAB 06/17/18 Dulaglutide (Trulicity) 0.75 Mg/0.5 Ml Pen.injctr, 1.75 MG SQ WEEKLY 06/11/18 Insulin Glargine,Hum.rec.anlog (Basaglar Kwikpen U-100) 100 Unit/1 Ml Insuln.pen, 20 UNIT SC DAILY, EA 06/11/18 Ferrous Sulfate (Ferrous Sulfate) 325 Mg Tablet., 325 MG PO DAILY 06/11/18 Aspirin* (Aspirin* EC) 81 Mg Tablet.dr, 81 MG PO DAILY, TAB 06/11/18 Empagliflozin (Jardiance) 10 Mg Tablet, 10 MG PO DAILY, TAB 06/11/18 Esomeprazole Mag Trihydrate (Nexium) 20 Mg Capsule.dr, 20 MG PO AC BREAKFAST, #30 CAP 06/11/18 Docusate Sodium* (Colace*) 100 Mg Capsule, 100 MG PO TID, #60 CAP 06/11/18 Allopurinol* (Allopurinol*) 100 Mg Tablet, 100 MG PO BID, TAB 06/11/18 Current Medications Allopurinol (Zyloprim) 100 mg BID PO Last administered on 10/21/18 20:18; Admin Dose 100 MG; Start 10/07/18 at 21:00 Aspirin (Halfprin) 81 mg DAILY PO Last administered on 10/08/18 08:14; Admin Dose 81 MG; Start 10/08/18 at 09:00; Status Hold Docusate Sodium (Colace) 100 mg TID PO Last administered on 10/21/18 20:17; Admin Dose 100 MG; Start 10/07/18 at 21:00 Pantoprazole (Protonix Tab) 40 mg DAILY@06 PO Last administered on 10/19/18at 06:01; Admin Dose 40 MG; Start 10/08/18 at 06:00 IV Flush (NS 3 ml) 3 ml PER PROTOCOL IV ; Start 10/07/18 at 12:30 Ondansetron HCl (Zofran Inj) 4 mg Q6H PRN IV NAUSEA/VOMITING; Start 10/07/18 at 12:30 Acetaminophen (Tylenol Tab) 650 mg Q6H PRN PO .PAIN 1-3 OR TEMP Last administered on 10/16/18at 18:56; Admin Dose 650 MG; Start 10/07/18 at 12:30 Acetaminophen/ Hydrocodone Bitart ([place] (5/325)) 1 tab Q6H PRN PO .PAIN 4-6 Last administered on 10/21/18at 23:48; Admin Dose 1 TAB; Start 10/07/18 at 12:30 Clonidine (Catapres) 0.1 mg BID PO Last administered on 10/16/18at 08:46; Admin Dose 0.1 MG; Start 10/07/18 at 22:00; Status Hold Miscellaneous Information 1 ea NOTE XX ; Start 10/07/18 at 21:00 Glucose (Glutose) 15 gm Q15M PRN PO DECREASED GLUCOSE; Start 10/07/18 at 21:00 Glucose (Glutose) 22.5 gm Q15M PRN PO DECREASED GLUCOSE; Start 10/07/18 at 21:00 Dextrose (D50w Syringe) 25 ml Q15M PRN IV DECREASED GLUCOSE Last administered on 10/21/18at 08:09; Admin Dose 25 ML; Start 10/07/18 at 21:00 Dextrose (D50w Syringe) 50 ml Q15M PRN IV DECREASED GLUCOSE; Start 10/07/18 at 21:00 Glucagon (Glucagen) 1 mg Q15M PRN IM DECREASED GLUCOSE; Start 10/07/18 at 21:00 Glucose (Glutose) 15 gm Q15M PRN BUCCAL DECREASED GLUCOSE; Start 10/07/18 at 21:00 Collagenase (Santyl) 1 applic DAILY TOP Last administered on 10/20/18 09:06; Admin Dose 1 APPLIC; Start 10/09/18 at 19:00 Sodium Hypochlorite (Dakins Diluted ()) 1 applic DAILY TP Last administered on 10/20/18 09:07; Admin Dose 1 APPLIC; Start 10/11/18 at 09:00 Quetiapine Fumarate (Seroquel) 25 mg BID@0900,1200 PO Last administered on 10/20/18 13:08; Admin Dose 25 MG; Start 10/11/18 at 12:00 Quetiapine Fumarate (Seroquel) 50 mg HS PO Last administered on 10/21/18 20:18; Admin Dose 50 MG; Start 10/11/18 at 21:00 Morphine Sulfate (morphine) 2 mg Q4H PRN IV SEVERE PAIN LEVEL 7-10 Last administered on 10/20/18 21:31; Admin Dose 2 MG; Start 10/15/18 at 21:00 Collagenase (Santyl) 1 applic DAILY TOP Last administered on 10/20/18 09:06; A dmin Dose 1 APPLIC; Start 10/17/18 at 12:00 Dextrose/Sodium Chloride 1,000 ml @ 60 mls/hr [id number] IV Last administered on 10/21/18 20:28; Admin Dose 60 MLS/HR; Start 10/20/18 at 04:00 Lubiprostone (Amitiza) 24 mcg BID PO Last administered on 10/21/18 20:18; Admin Dose 24 MCG; Start 10/20/18 at 21:00 Insulin Aspart (Novolog Insulin Pen) (Adult SC Insulin - Mild Algorithm)... Q4 SC Last administered on 10/22/18 12:40; Admin Dose 2 UNIT; Start 10/21/18 at 05:00 Ciprofloxacin (Cipro) 500 mg BID@06,18 PO Last administered on 10/21/18at 17:20; Admin Dose 500 MG; Start 10/21/18 at 18:00 Insulin Glargine (Lantus) 8 units DAILY@1200 SC Last administered on 10/22/18at 13:00; Admin Dose 8 UNITS; Start 10/22/18 at 12:00 Lisinopril (Zestril) 20 mg DAILY PO Last administered on 10/21/18at 17:51; Admin Dose 20 MG; Start 10/21/18 at 17:30 Hydralazine HCl (Apresoline) 10 mg Q4H PRN IV >160/95; Start 10/21/18 at 17:30 Meds reviewed: Yes Allergies Coded Allergies: No Known Allergies (Verified Allergy, Unknown, 08/01/18) Allergies Reviewed: Yes Labs/Studies Labs Reviewed: Reviewed by anesthesiologist Result Diagram: 10/22/1863010/22/18630 Laboratory Tests 10/22/18 06:31 test: N/A Studies: ECG (a-fib), CXR, 2D Echo (EF 50%) Pre-procedure Exam Last vitals Vital Signs Date Temp Pulse Resp B/P (MAP) Pulse Ox O2 O2 Flow FiO2 Time Delivery Rate 10/22/18 Nasal 2.0 09:00 Cannula 10/22/18 97.5 87 20 119/59 98 08:06 (79) 10/19/18 27 19:25 Airway: Adequate mouth opening Mallampati: Mallampati II Teeth: Normal Lung: Normal Heart: Normal ASA Physical Status ASA physical status: 3 Emergency: None Planned Anesthetic General/MAC: MAC Pre-operative Attestations Prior to commencing anesthesia and surgery, the patient was re-evaluated, there was verification of: *The patient's identity *The results of appropriate recent lab work and preoperative vital signs *The above evaluation not changing prior to induction *Anesthetic plan, risk benefits, alternative and complications discussed with patient/family; questions answered; patient/family understands, accepts and wishes to proceed. ELVIS ARAUJO Oct 22, 2018 13:50
[2018-10-22] MEDS ORDERED: PROPOFOL 20 ML ONE (14:18)
[2018-10-22] MEDS ORDERED: LIDOCAINE 2% (SDV) 5 ML INJ ONE (14:18)
--- NOTE | 2018-10-22 14:23 | PAC ---
Date/Time of Note Date/Time of Note DATE: 10/22/18 TIME: 14:23 Post-Anesthesia Notes Post-Anesthesia Note Last documented vital signs Vital Signs Date Temp Pulse Resp B/P (MAP) Pulse Ox O2 O2 Flow FiO2 Time Delivery Rate 10/22/18 98.7 84 16 126/54 93 Room Air 13:51 (78) 10/22/18 2.0 09:00 10/19/18 27 19:25 Activity: WNL Respiratory function: WNL Cardiovascular function: WNL Mental status: Baseline Pain reasonably controlled: Yes Hydration appropriate: Yes Nausea/Vomiting absent: Yes ELVIS ARAUJO Oct 22, 2018 14:23
[2018-10-22] MEDS: morphine 2 MG INJ IV PRN ×2 (16:01→21:25)
--- NOTE | 2018-10-22 16:31 | PN ---
Date/Time of Note Date/Time of Note DATE: 10/22/18 TIME: 16:23 Assessment/Plan VTE Prophylaxis Risk score (from Ns)>0 risk: 9 SCD applied (from [facility] [place]): No SCD contraindicated: low risk/ambulating Pharmacological prophylaxis: NA/contraindicated Pharm contraindication: anticoag not tolerated Lines/Catheters IV [facility] Peripheral IV Urinary Cath still in place: Yes Reason Cath still needed: urinary retention Assessment/Plan Hospital Course Patient status post colonoscopy today, awake alert, urine reported decreased urine output we will continue IV fluids, resume diet. Continue current wound care. Assessment/Plan -Status post colonoscopy with notion of ulcerated lesions consistent with malignancy. -Chronic gastritis per EGD, continue PPI. -Anemia, history of emesis at home and loss of appetite. Dr. Winkler is following in gastroenterology consultation. Colonoscopy recommended however patient is unable to take p.o. prep, patient's son refused NG tube placement. Patient is not able to tolerate Gastrografin enema. -Sepsis secondary to urinary tract infection and possible early pneumonia, resolving. Continue antibiotics per ID. Dr. Elias is following in infection disease consultation. -UTI. Status post treatment with antibiotics. -Hyperkalemia, resolved, status post treatment -Acute kidney injury, continue gentle hydration, monitor BUN and creatinine. Dr. Arreaga is following in nephrology consultation. -Hypertension -Systolic congestive heart failure. Dr. Chávez is following in cardiology consultation. -Cardiomyopathy with ejection fraction 50% -Atrial fibrillation, patient did not tolerate anticoagulation in the past due to bleeding and anemia, patient was on aspirin which is currently held due significant drop in hemoglobin. -Coronary artery disease, status post CABG -Diabetes mellitus type 2, continue Lantus and pre-meal NovoLog. -History of endocarditis, status post treatment -Sacral, right foot, and left garcia wounds present on admission. Continue current care per wound care recommendations. -Right heel wound with early osteomyelitis, status post debridement and application of allograft and wound VAC on 10/15/2018, Dr. Garland is following and podiatry consultation. Continue antibiotics per ID. -History of left femoral artery thrombectomy, left garcia open wound. Continue current wound care. Dr. Dawson is following in vascular surgery consultation. No inpatient procedures planned. Further recommendations based on clinical course. Plan of care discussed with Dr. Mi. Result Diagram: 10/22/18 0631 10/22/18 0631 Results 24hrs Laboratory Tests Test 10/21/18 20:15 10/22/18 01:48 10/22/18 05:49 10/22/18 06:31 Bedside Glucose 175 163 232 H White Blood Count 18.5 #H Red Blood Count 3.90 L Hemoglobin 10.4 L Hematocrit 33.7 L Mean Corpuscular 86.4 Volume Mean Corpuscular 26.7 L Hemoglobin Mean Corpuscular 30.9 L Hemoglobin Concent Red Cell 17.9 H Distribution Width Platelet Count 267 Mean Platelet Volume 9.9 Immature 0.600 H Granulocytes % Neutrophils % 93.5 H Lymphocytes % 3.1 L Monocytes % 2.4 Eosinophils % 0.1 Basophils % 0.3 Nucleated Red Blood 0.0 Cells % Immature 0.120 H Granulocytes # Neutrophils # 17.3 H Lymphocytes # 0.6 L Monocytes # 0.4 Eosinophils # 0.0 Basophils # 0.1 Nucleated Red Blood 0.0 Cells # Sodium Level 135 Potassium Level 3.9 Chloride Level 107 Carbon Dioxide Level 25 Anion Gap 3 L Blood Urea Nitrogen 15 Creatinine 0.87 Est Glomerular Filtrat Rate mL/min Glucose Level 224 #H Calcium Level 8.8 Test 10/22/18 08:39 10/22/18 12:36 Bedside Glucose 223 H 190 Exam/Review of Systems Exam Vitals Vital Signs Date Temp Pulse Resp B/P (MAP) Pulse Ox O2 O2 Flow FiO2 Time Delivery Rate 10/22/18 97.5 77 18 123/58 91 15:37 (79) 10/22/18 Room Air 14:59 10/22/18 6.0 14:34 10/19/18 27 19:25 Intake and Output 10/21/18 10/21/18 10/22/18 1414:59 22:59 06:59 IntakeIntake Total 250 ml 960 ml OutputOutput Total 450 ml 0 ml BalanceBalance 250 ml 510 ml 0 ml Exam Constitutional: alert, frail Head: normocephalic Respiratory: clear to auscultation Cardiovascular: regular rate and rhythm Gastrointestinal: soft, non-tender Musculoskeletal: nl extremities to inspection Extremities: normal pulses, other (Right foot wound with wound VAC) Skin: other (Left garcia and sacral wounds) Results Results 24hrs Laboratory Tests Test 10/21/18 20:15 10/22/18 01:48 10/22/18 05:49 10/22/18 06:31 Bedside Glucose 175 163 232 H White Blood Count 18.5 #H Red Blood Count 3.90 L Hemoglobin 10.4 L Hematocrit 33.7 L Mean Corpuscular 86.4 Volume Mean Corpuscular 26.7 L Hemoglobin Mean Corpuscular 30.9 L Hemoglobin Concent Red Cell 17.9 H Distribution Width Platelet Count 267 Mean Platelet Volume 9.9 Immature 0.600 H Granulocytes % Neutrophils % 93.5 H Lymphocytes % 3.1 L Monocytes % 2.4 Eosinophils % 0.1 Basophils % 0.3 Nucleated Red Blood 0.0 Cells % Immature 0.120 H Granulocytes # Neutrophils # 17.3 H Lymphocytes # 0.6 L Monocytes # 0.4 Eosinophils # 0.0 Basophils # 0.1 Nucleated Red Blood 0.0 Cells # Sodium Level 135 Potassium Level 3.9 Chloride Level 107 Carbon Dioxide Level 25 Anion Gap 3 L Blood Urea Nitrogen 15 Creatinine 0.87 Est Glomerular Filtrat Rate mL/min Glucose Level 224 #H Calcium Level 8.8 Test 10/22/18 08:39 10/22/18 12:36 Bedside Glucose 223 H 190 Medications Medication Current Medications Allopurinol (Zyloprim) 100 mg BID PO Last administered on 10/21/18at 20:18; Admin Dose 100 MG; Start 10/07/18 at 21:00 Aspirin (Halfprin) 81 mg DAILY PO Last administered on 10/08/18at 08:14; Admin Dose 81 MG; Start 10/08/18 at 09:00; Status Hold Docusate Sodium (Colace) 100 mg TID PO Last administered on 10/21/18at 20:17; Admin Dose 100 MG; Start 10/07/18 at 21:00 Pantoprazole (Protonix Tab) 40 mg DAILY@06 PO Last administered on 10/19/18at 06:01; Admin Dose 40 MG; Start 10/08/18 at 06:00 IV Flush (NS 3 ml) 3 ml PER PROTOCOL IV ; Start 10/07/18 at 12:30 Ondansetron HCl (Zofran Inj) 4 mg Q6H PRN IV NAUSEA/VOMITING; Start 10/07/18 at 12:30 Acetaminophen (Tylenol Tab) 650 mg Q6H PRN PO .PAIN 1-3 OR TEMP Last administered on 10/16/18 18:56; Admin Dose 650 MG; Start 10/07/18 at 12:30 Acetaminophen/ Hydrocodone Bitart ([place] (5/325)) 1 tab Q6H PRN PO .PAIN 4-6 Last administered on 10/21/18 23:48; Admin Dose 1 TAB; Start 10/07/18 at 12:30 Clonidine (Catapres) 0.1 mg BID PO Last administered on 10/16/18at 08:46; Admin Dose 0.1 MG; Start 10/07/18 at 22:00; Status Hold Miscellaneous Information 1 ea NOTE XX ; Start 10/07/18 at 21:00 Glucose (Glutose) 15 gm Q15M PRN PO DECREASED GLUCOSE; Start 10/07/18 at 21:00 Glucose (Glutose) 22.5 gm Q15M PRN PO DECREASED GLUCOSE; Start 10/07/18 at 21:00 Dextrose (D50w Syringe) 25 ml Q15M PRN IV DECREASED GLUCOSE Last administered on 10/21/18at 08:09; Admin Dose 25 ML; Start 10/07/18 at 21:00 Dextrose (D50w Syringe) 50 ml Q15M PRN IV DECREASED GLUCOSE; Start 10/07/18 at 21:00 Glucagon (Glucagen) 1 mg Q15M PRN IM DECREASED GLUCOSE; Start 10/07/18 at 21:00 Glucose (Glutose) 15 gm Q15M PRN BUCCAL DECREASED GLUCOSE; Start 10/07/18 at 21:00 Collagenase (Santyl) 1 applic DAILY TOP Last administered on 10/20/18at 09:06; Admin Dose 1 APPLIC; Start 10/09/18 at 19:00 Sodium Hypochlorite (Dakins Diluted (140)) 1 applic DAILY TP Last administered on 10/20/18at 09:07; Admin Dose 1 APPLIC; Start 10/11/18 at 09:00 Quetiapine Fumarate (Seroquel) 25 mg BID@0900,1200 PO Last administered on 10/20/18at 13:08; Admin Dose 25 MG; Start 10/11/18 at 12:00 Quetiapine Fumarate (Seroquel) 50 mg HS PO Last administered on 10/21/18at 20:18; Admin Dose 50 MG; Start 10/11/18 at 21:00 Morphine Sulfate (morphine) 2 mg Q4H PRN IV SEVERE PAIN LEVEL 7-10 Last administered on 10/22/18 16:01; Admin Dose 2 MG; Start 10/15/18 at 21:00 Collagenase (Santyl) 1 applic DAILY TOP Last administered on 10/20/18 09:06; Admin Dose 1 APPLIC; Start 10/17/18 at 12:00 Lubiprostone (Amitiza) 24 mcg BID PO Last administered on 10/21/18 20:18; Admin Dose 24 MCG; Start 10/20/18 at 21:00 Insulin Aspart (Novolog Insulin Pen) (Adult SC Insulin - Mild Algorithm)... Q4 SC Last administered on 10/22/18 12:40; Admin Dose 2 UNIT; Start 10/21/18 at 05:00 Ciprofloxacin (Cipro) 500 mg BID@06,18 PO Last administered on 10/21/18 17:20; Admin Dose 500 MG; Start 10/21/18 at 18:00 Insulin Glargine (Lantus) 8 units DAILY@1200 SC Last administered on 10/22/18 13:00; Admin Dose 8 UNITS; Start 10/22/18 at 12:00 Lisinopril (Zestril) 20 mg DAILY PO Last administered on 10/21/18 17:51; Admin Dose 20 MG; Start 10/21/18 at 17:30 Hydralazine HCl (Apresoline) 10 mg Q4H PRN IV >160/95; Start 10/21/18 at 17:30 OCTAVIANO SHAFFER Oct 22, 2018 16:31
--- NOTE | 2018-10-22 17:21 | CONS ---
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 Echo dense structure seen by tricuspid valve, right atrium and IVC-thrombus, vegetation versus tumor CAD with history of CABG History of renal carcinoma status post nephrectomy approximately 8 years ago History of hypertension Diabetes Paroxysmal atrial fibrillation, intolerant to anticoagulation Mental status better today and following commands and answering some questions Titrate antihypertensives as needed Consider restarting lasix if ok with renal Consultation Date/Type/Reason Admit Date/Time Oct 07, 2018 at 03:37 Initial Consult Date 10/07/18 Type of Consult Cardiology Requesting Provider: JAGJIT MONTES MD Date/Time of Note DATE: 10/22/18 TIME: 17:20 24 HR Interval Summary Free Text/Dictation no sob,cp,palp Exam/Review of Systems Vital Signs Vitals Vital Signs Date Temp Pulse Resp B/P (MAP) Pulse Ox O2 O2 Flow FiO2 Time Delivery Rate 10/22/18 97.5 77 18 123/58 91 15:37 (79) 10/22/18 Room Air 14:59 10/22/18 6.0 14:34 10/19/18 27 19:25 Intake and Output 10/21/18 10/21/18 10/22/18 1414:59 22:59 06:59 IntakeIntake Total 250 ml 960 ml OutputOutput Total 450 ml 0 ml BalanceBalance 250 ml 510 ml 0 ml Exam Constitutional: alert (nad) Head: normocephalic Respiratory: other (course bs, no wheeze) Cardiovascular: regular rate and rhythm (s1s2) Gastrointestinal: soft, non-tender, bowel sounds Extremities: edema Labs Result Diagram: 10/22/18 0631 10/22/18 0631 Results 24hrs Laboratory Tests Test 10/21/18 20:15 10/22/18 01:48 10/22/18 05:49 10/22/18 06:31 Bedside Glucose 175 163 232 H White Blood Count 18.5 #H Red Blood Count 3.90 L Hemoglobin 10.4 L Hematocrit 33.7 L Mean Corpuscular 86.4 Volume Mean Corpuscular 26.7 L Hemoglobin Mean Corpuscular 30.9 L Hemoglobin Concent Red Cell 17.9 H Distribution Width Platelet Count 267 Mean Platelet Volume 9.9 Immature 0.600 H Granulocytes % Neutrophils % 93.5 H Lymphocytes % 3.1 L Monocytes % 2.4 Eosinophils % 0.1 Basophils % 0.3 Nucleated Red Blood 0.0 Cells % Immature 0.120 H Granulocytes # Neutrophils # 17.3 H Lymphocytes # 0.6 L Monocytes # 0.4 Eosinophils # 0.0 Basophils # 0.1 Nucleated Red Blood 0.0 Cells # Sodium Level 135 Potassium Level 3.9 Chloride Level 107 Carbon Dioxide Level 25 Anion Gap 3 L Blood Urea Nitrogen 15 Creatinine 0.87 Est Glomerular Filtrat Rate mL/min Glucose Level 224 #H Calcium Level 8.8 Test 10/22/18 08:39 10/22/18 12:36 10/22/18 17:05 Bedside Glucose 223 H 190 123 Medications Medications Current Medications Allopurinol (Zyloprim) 100 mg BID PO Last administered on 10/21/18 20:18; Admin Dose 100 MG; Start 10/07/18 at 21:00 Aspirin (Halfprin) 81 mg DAILY PO Last administered on 10/08/18 08:14; Admin Dose 81 MG; Start 10/08/18 at 09:00; Status Hold Docusate Sodium (Colace) 100 mg TID PO Last administered on 10/21/18 20:17; Admin Dose 100 MG; Start 10/07/18 at 21:00 Pantoprazole (Protonix Tab) 40 mg DAILY@06 PO Last administered on 10/19/18 06:01; Admin Dose 40 MG; Start 10/08/18 at 06:00 IV Flush (NS 3 ml) 3 ml PER PROTOCOL IV ; Start 10/07/18 at 12:30 Ondansetron HCl (Zofran Inj) 4 mg Q6H PRN IV NAUSEA/VOMITING; Start 10/07/18 at 12:30 Acetaminophen (Tylenol Tab) 650 mg Q6H PRN PO .PAIN 1-3 OR TEMP Last administered on 10/16/18at 18:56; Admin Dose 650 MG; Start 10/07/18 at 12:30 Acetaminophen/ Hydrocodone Bitart ([place] (5/325)) 1 tab Q6H PRN PO .PAIN 4-6 Last administered on 7/23/19at 23:48; Admin Dose 1 TAB; Start 10/07/18 at 12:30 Clonidine (Catapres) 0.1 mg BID PO Last administered on 10/16/18at 08:46; Admin Dose 0.1 MG; Start 10/07/18 at 22:00; Status Hold Miscellaneous Information 1 ea NOTE XX ; Start 10/07/18 at 21:00 Glucose (Glutose) 15 gm Q15M PRN PO DECREASED GLUCOSE; Start 10/07/18 at 21:00 Glucose (Glutose) 22.5 gm Q15M PRN PO DECREASED GLUCOSE; Start 10/07/18 at 21:00 Dextrose (D50w Syringe) 25 ml Q15M PRN IV DECREASED GLUCOSE Last administered on 10/21/18 08:09; Admin Dose 25 ML; Start 10/07/18 at 21:00 Dextrose (D50w Syringe) 50 ml Q15M PRN IV DECREASED GLUCOSE; Start 10/07/18 at 21:00 Glucagon (Glucagen) 1 mg Q15M PRN IM DECREASED GLUCOSE; Start 10/07/18 at 21:00 Glucose (Glutose) 15 gm Q15M PRN BUCCAL DECREASED GLUCOSE; Start 10/07/18 at 21:00 Collagenase (Santyl) 1 applic DAILY TOP Last administered on 10/20/18 09:06; Admin Dose 1 APPLIC; Start 10/09/18 at 19:00 Sodium Hypochlorite (Dakins Diluted (1/40)) 1 applic DAILY TP Last administered on 10/20/18 09:07; Admin Dose 1 APPLIC; Start 10/11/18 at 09:00 Quetiapine Fumarate (Seroquel) 25 mg BID@0900,1200 PO Last administered on 10/20/18 13:08; Admin Dose 25 MG; Start 10/11/18 at 12:00 Quetiapine Fumarate (Seroquel) 50 mg HS PO Last administered on 10/21/18 20:18; Admin Dose 50 MG; Start 10/11/18 at 21:00 Morphine Sulfate (morphine) 2 mg Q4H PRN IV SEVERE PAIN LEVEL 7-10 Last administered on 10/22/18 16:01; Admin Dose 2 MG; Start 10/15/18 at 21:00 Collagenase (Santyl) 1 applic DAILY TOP Last administered on 10/20/18 09:06; Admin Dose 1 APPLIC; Start 10/17/18 at 12:00 Lubiprostone (Amitiza) 24 mcg BID PO Last administered on 10/21/18at 20:18; Adm in Dose 24 MCG; Start 10/20/18 at 21:00 Ciprofloxacin (Cipro) 500 mg BID@06,18 PO Last administered on 10/21/18at 17:20; Admin Dose 500 MG; Start 10/21/18 at 18:00 Insulin Glargine (Lantus) 8 units DAILY@1200 SC Last administered on 10/22/18at 13:00; Admin Dose 8 UNITS; Start 10/22/18 at 12:00 Lisinopril (Zestril) 20 mg DAILY PO Last administered on 10/21/18at 17:51; Admin Dose 20 MG; Start 10/21/18 at 17:30 Hydralazine HCl (Apresoline) 10 mg Q4H PRN IV >160/95; Start 10/21/18 at 17:30 Insulin Aspart (Novolog Insulin Pen) (Adult SC Insulin - Mild Algorithm)... AC MEALS SC ; Start 10/22/18 at 17:35; Status Alex Thompson DO Oct 22, 2018 17:21
[2018-10-22] MEDS ORDERED: INSULIN ASPART [NOVOLOG] 3 ML PEN SC SCH (17:35)
[2018-10-22] MEDS: INSULIN ASPART [NOVOLOG] 3 ML PEN SC SCH (20:44)
[2018-10-22] MEDS: 1/2 NS + KCL 20 MEQ 1,000 ML IV SCH (20:47)
[2018-10-23] MEDS: ACCU-CHEK XX SCH (01:09)
[2018-10-23 03:02] VITALS: BP 108/61; PULSE 87; RESP 16
[2018-10-23] MEDS: PANTOPRAZOLE (EC) 40 MG TAB PO SCH (05:10)
[2018-10-23] MEDS: CIPROFLOXACIN 500 MG TAB PO SCH ×2 (05:10→18:11)
--- NOTE | 2018-10-23 07:33 | PN ---
DATE: 10/22/2018 SUBJECTIVE: No acute changes overnight. The patient is awake, looks comfortable, no fevers overnigh t. No vomiting. The patient is getting colon prep for colonoscopy and therefore having diarrhea. LABORATORY DATA: WBC today 18.5, platelets 267, neutrophils 93.5. BUN 15, creatinine 0.87. MICROBIOLOGY: Right heel wound culture grew Proteus mirabilis. ANTIMICROBIALS: The patient was downgraded to oral Cipro. PHYSICAL EXAMINATION: GENERAL: This is a fragile, chronically ill-appearing, elderly woman who is awake, in no distress. HEENT: Head atraumatic, normocephalic. NECK: Supple. CHEST: Rise symmetrical. Breath sounds diminished to bases. HEART: S1, S2. ABDOMEN: Soft, bowel sounds present. EXTREMITIES: With right foot to wound VAC. ASSESSMENT: 1. Leukocytosis, rule out recurrent sepsis. 2. Status post polymicrobial urinary tract infection. 3. Right heel osteomyelitis, status post debridement with partial calcanectomy. 4. Diabetes. 5. History of renal carcinoma, status post nephrectomy. 6. History of coronary artery bypass graft. 7. History of endocarditis, patient completed antibiotics. PLAN: The patient is clinically stable; however, with worsening leukocytosis, we will jeffrey culture he r and order a chest x-ray. Continue on current antibiotics and await for colonoscopy that is schedul ed for this afternoon. Dictated By: BARBARA ORDAZ ENTERTAINMENT DANCER for TORI IRVING MD NI/NTS Conf#: [id number] DID#: [id number] CC: JAGJIT MONTES MD;*EndCC*
[2018-10-23] MEDS: INSULIN ASPART [NOVOLOG] 3 ML PEN SC SCH ×4 (08:00→20:26)
[2018-10-23] MEDS: HYDROCODONE/APAP (5/325) TAB PO PRN (08:10)
[2018-10-23] MEDS: LUBIPROSTONE 24 MCG CAP PO SCH ×3 (08:10→20:23)
[2018-10-23] MEDS: DOCUSATE SODIUM 100 MG CAP PO SCH ×4 (08:10→20:24)
[2018-10-23] MEDS: QUETIAPINE 25 MG TAB PO SCH ×4 (08:11→20:24)
[2018-10-23 08:15] VITALS: BP 104/73; PULSE 78; RESP 17
[2018-10-23] MEDS: ALLOPURINOL 100 MG TAB PO SCH ×3 (08:20→20:24)
[2018-10-23] MEDS: MULTIVITAMINS THERAPEUTIC TAB PO SCH ×2 (08:20→09:00)
[2018-10-23] MEDS: LISINOPRIL 20 MG TAB PO SCH ×2 (08:21→09:00)
[2018-10-23] MEDS: ZINC SULFATE 220 MG CAP PO SCH ×2 (08:24→09:00)
[2018-10-23] MEDS: ASCORBIC ACID 250 MG TAB PO SCH ×2 (08:24→09:00)
[2018-10-23] MEDS: COLLAGENASE 5 GM (UD JAR) TOP SCH ×3 (09:00→11:40)
[2018-10-23] MEDS: DAKINS 0.0125%(1/40) 473 ML SOLUTION TP SCH (09:00)
[2018-10-23] MEDS: 1/2 NS + KCL 20 MEQ 1,000 ML IV SCH (10:10)
--- NOTE | 2018-10-23 11:08 | CONS ---
Assessment/Plan Assessment/Plan Assessment/Plan (Daily) 1. acute hyperkalemia due to BRANDON resolved 2 .acute kidney injury on CKD III due to ATN from sepsis + prerenal azotemia- Improving 3. Sepsis due to UTI and PNA 4. acute UTI 5. H/o partial nephrectomy possibly due to RCC as per family 6. H/o CAD s/p CABG , Cardiomyopathy with EF 50%, Chronic Systolic HF, 7. H/O HTN 8. h/o DM II 9. Paroxysmal atrial fibrillation 10. acute encephalpahty possibly due to uremic and metabolic encephalopathy 11. 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 H/o HTN 13. H/o DM II 14. h/O paroxysmal atrial fibrillation Plan: BUN/Cr 15/0.95, Othe electrolytes stable , ID recommended Cetriaxone + vancomycin till 11/18/18 for OM Renal US showed No hydronephrosis. No nephrolithiasis.- 3.1 x 2 x 2.1 centimeter hypoechoic lesion arising from the lower pole of the left kidney. Follow-up to exclude neoplasm. There is echogenic material layering within the dependent portion of the bladder. Follow up to exclude infectious, inflammatory, or neoplastic process.- Atrophic left kidney- Family refused MRI abdomen ok to d/c to SNF as per renal point of view will follow up Consultation Date/Type/Reason Admit Date/Time Oct 07, 2018 at 03:37 Initial Consult Date 10/07/18 Type of Consult NEPHROLOGY Requesting Provider: JAGJIT MONTES MD Date/Time of Note DATE: 10/23/18 TIME: 11:08 Exam/Review of Systems Exam Vitals Vital Signs Date Temp Pulse Resp B/P (MAP) Pulse Ox O2 O2 Flow FiO2 Time Delivery Rate 10/23/18 Nasal 2 09:01 Cannula 10/23/18 98.4 78 17 104/73 95 08:15 (83) 10/19/18 27 19:25 Intake and Output 10/22/18 10/22/18 10/23/18 1414:59 22:59 06:59 IntakeIntake Total 1150 ml 510 ml OutputOutput Total 300 ml 0 ml 400 ml BalanceBalance -300 ml 1150 ml 110 ml Results Result Diagram: 10/23/18 0631 10/23/1831 Results 24hrs Laboratory Tests Test 10/22/18 12:36 10/22/18 17:05 10/22/18 20:43 10/23/18 06:31 Bedside Glucose 190 123 77 White Blood Count 14.6 #H Red Blood Count 3.28 L Hemoglobin 8.5 L Hematocrit 27.9 L Mean Corpuscular 85.1 Volume Mean Corpuscular 25.9 L Hemoglobin Mean Corpuscular 30.5 L Hemoglobin Concent Red Cell 17.9 H Distribution Width Platelet Count 210 # Mean Platelet Volume 10.9 H Immature 0.400 Granulocytes % Neutrophils % 79.1 H Lymphocytes % 14.0 L Monocytes % 5.7 Eosinophils % 0.5 Basophils % 0.3 Nucleated Red Blood 0.0 Cells % Immature 0.060 H Granulocytes # Neutrophils # 11.6 H Lymphocytes # 2.1 Monocytes # 0.8 Eosinophils # 0.1 Basophils # 0.1 Nucleated Red Blood 0.0 Cells # Sodium Level 134 L Potassium Level 4.2 Chloride Level 109 Carbon Dioxide Level 22 Anion Gap 3 L Blood Urea Nitrogen 15 Creatinine 0.95 Est Glomerular Filtrat Rate mL/min Glucose Level 61 #L Calcium Level 8.3 L Test 10/23/18 08:08 Bedside Glucose 78 Medications Medication Current Medications Allopurinol (Zyloprim) 100 mg BID PO Last administered on 10/22/18at 20:45; Admin Dose 100 MG; Start 10/07/18 at 21:00 Aspirin (Halfprin) 81 mg DAILY PO Last administered on 10/08/18at 08:14; Admin Dose 81 MG; Start 10/08/18 at 09:00; Status Hold Docusate Sodium (Colace) 100 mg TID PO Last administered on 10/22/18at 20:45; Admin Dose 100 MG; Start 10/07/18 at 21:00 Pantoprazole (Protonix Tab) 40 mg DAILY@06 PO Last administered on 10/23/18at 05:10; Admin Dose 40 MG; Start 10/08/18 at 06:00 IV Flush (NS 3 ml) 3 ml PER PROTOCOL IV ; Start 10/07/18 at 12:30 Ondansetron HCl (Zofran Inj) 4 mg Q6H PRN IV NAUSEA/VOMITING; Start 10/07/18 at 12:30 Acetaminophen (Tylenol Tab) 650 mg Q6H PRN PO .PAIN 1-3 OR TEMP Last administered on 10/16/18at 18:56; Admin Dose 650 MG; Start 10/07/18 at 12:30 Acetaminophen/ Hydrocodone Bitart ([place] (5/325)) 1 tab Q6H PRN PO .PAIN 4-6 Last administered on 10/21/18at 23:48; Admin Dose 1 TAB; Start 10/07/18 at 12:30 Clonidine (Catapres) 0.1 mg BID PO Last administered on 10/16/18at 08:46; Admin Dose 0.1 MG; Start 10/07/18 at 22:00; Status Hold Miscellaneous Information 1 ea NOTE XX ; Start 10/07/18 at 21:00 Glucose (Glutose) 15 gm Q15M PRN PO DECREASED GLUCOSE; Start 10/07/18 at 21:00 Glucose (Glutose) 22.5 gm Q15M PRN PO DECREASED GLUCOSE; Start 10/07/18 at 21:00 Dextrose (D50w Syringe) 25 ml Q15M PRN IV DECREASED GLUCOSE Last administered on 10/21/18at 08:09; Admin Dose 25 ML; Start 10/07/18 at 21:00 Dextrose (D50w Syringe) 50 ml Q15M PRN IV DECREASED GLUCOSE; Start 10/07/18 at 21:00 Glucagon (Glucagen) 1 mg Q15M PRN IM DECREASED GLUCOSE; Start 10/07/18 at 21:00 Glucose (Glutose) 15 gm Q15M PRN BUCCAL DECREASED GLUCOSE; Start 10/07/18 at 2 1:00 Collagenase (Santyl) 1 applic DAILY TOP Last administered on 10/20/18at 09:06; Admin Dose 1 APPLIC; Start 10/09/18 at 19:00 Sodium Hypochlorite (Dakins Diluted ()) 1 applic DAILY TP Last administered on 10/20/18at 09:07; Admin Dose 1 APPLIC; Start 10/11/18 at 09:00 Quetiapine Fumarate (Seroquel) 25 mg BID@0900,1200 PO Last administered on 10/20/18at 13:08; Admin Dose 25 MG; Start 10/11/18 at 12:00 Quetiapine Fumarate (Seroquel) 50 mg HS PO Last administered on 10/22/18at 20:47; Admin Dose 50 MG; Start 10/11/18 at 21:00 Morphine Sulfate (morphine) 2 mg Q4H PRN IV SEVERE PAIN LEVEL 7-10 Last administered on 10/22/18at 21:25; Admin Dose 2 MG; Start 10/15/18 at 21:00 Collagenase (Santyl) 1 applic DAILY TOP Last administered on 10/20/18at 09:06; Admin Dose 1 APPLIC; Start 10/17/18 at 12:00 Lubiprostone (Amitiza) 24 mcg BID PO Last administered on 10/22/18at 20:45; Admin Dose 24 MCG; Start 10/20/18 at 21:00 Ciprofloxacin (Cipro) 500 mg BID@06,18 PO Last administered on 10/23/18at 05:10; Admin Dose 500 MG; Start 10/21/18 at 18:00 Insulin Glargine (Lantus) 8 units DAILY@1200 SC Last administered on 10/22/18at 13:00; Admin Dose 8 UNITS; Start 10/22/18 at 12:00 Lisinopril (Zestril) 20 mg DAILY PO Last administered on 10/21/18at 17:51; Admin Dose 20 MG; Start 10/21/18 at 17:30 Hydralazine HCl (Apresoline) 10 mg Q4H PRN IV >160/95; Start 10/21/18 at 17:30 Potassium Chloride/Sodium Chloride 1,000 ml @ 60 mls/hr [id number] IV Last administered on 10/22/18at 20:47; Admin Dose 60 MLS/HR; Start 10/22/18 at 17:30 Insulin Aspart (Novolog Insulin Pen) NOVOLOG *MILD* ALGORITHM WITH MEALS BEDTIME SC ; Start 10/22/18 at 21:00 Diagnostic Test (Pha) (Accu-Chek) 1 ea 02 XX ; Start 10/23/18 at 02:00 Multivitamins Therapeutic (Theragran) 1 tab DAILY PO ; Start 10/23/18 at 09:00 Zinc Sulfate (Zinc Sulfate) 220 mg DAILY PO ; Start 10/23/18 at 09:00; Stop 11/06/18 at 09:00 Ascorbic Acid (Vitamin C) 250 mg DAILY PO ; Start 10/23/18 at 09:00 Collagenase (Santyl) 1 applic DAILY TOP ; Start 10/23/18 at 11:00 EVA TREJO MD Oct 23, 2018 11:08
--- NOTE | 2018-10-23 12:42 | CONS ---
Assessment/Plan Assessment/Plan Hospital Course (Demo Recall) Patient is awake and looks comfortable no fevers overnight blood cultures from yesterday negative urine culture preliminary growing yeast WBC today 14.6 platelets 210 neutrophils 79.1 Pathology of colonoscopy revealed well-differentiated carcinoma arising from tubular adenoma high-grade dysplasia associated with focal surface ulceration. Antimicrobials: Cipro Microbiology: Blood cultures negative, urine culture + MDR Kleb, repeat cx + yeast, Wound culture growing Proteus Chest x-ray on admission revealed no evidence of CHF or pneumonia. Renal ultrasound revealed no hydronephrosis and no nephrolithiasis. 3.1 x 2 x 2.1 cm hypoechoic lesion left pole of the kidney questionable neoplasm Physical examination: Well-developed chronically ill-appearing wasted elderly woman who is in no distress. Head atraumatic normocephalic neck is supple chest rise symmetrical breath sounds diminished bases. Heart: S1-S2. Abdomen soft bowel sounds present. Extremities with dependent bilateral lower extremities edema, R foot dsg Assessment: 1. S/p sepsis, present on admission 2. Recurrent UTI 3. Acute on chronic anemia 4. Coronary artery disease with a history of CABG 5. Echo dense structure seen by tricuspid valve, right atrium and IVC-thrombus, vegetation versus tumor=== completed 6 weeks IV antibiotics> 6. History of renal cell carcinoma status post nephrectomy 7. Diabetes 8. R heel osteomyelitis status post debridement 9. Adenocarcinoma of the colon Plan: Patient is clinically stable, were going to restart her on antifungal coverage, follow GI recommendations consider oncology eval Consultation Date/Type/Reason Admit Date/Time Oct 07, 2018 at 03:37 Initial Consult Date 10/07/18 Type of Consult id Requesting Provider: JAGJIT MONTES MD Date/Time of Note DATE: 10/23/18 TIME: 12:40 Exam/Review of Systems Exam Vitals Vital Signs Date Temp Pulse Resp B/P (MAP) Pulse Ox O2 O2 Flow FiO2 Time Delivery Rate 10/23/18 Nasal 2 09:01 Cannula 10/23/18 98.4 78 17 104/73 95 08:15 (83) 10/19/18 27 19:25 Intake and Output 10/22/18 10/22/18 10/23/18 1414:59 22:59 06:59 IntakeIntake Total 1150 ml 510 ml OutputOutput Total 300 ml 0 ml 400 ml BalanceBalance -300 ml 1150 ml 110 ml Results Result Diagram: 10/23/18 0631 10/23/18 0631 Results 24hrs Laboratory Tests Test 10/22/18 17:05 10/22/18 20:43 10/23/18 06:31 10/23/18 08:08 Bedside Glucose 123 77 78 White Blood Count 14.6 #H Red Blood Count 3.28 L Hemoglobin 8.5 L Hematocrit 27.9 L Mean Corpuscular 85.1 Volume Mean Corpuscular 25.9 L Hemoglobin Mean Corpuscular 30.5 L Hemoglobin Concent Red Cell 17.9 H Distribution Width Platelet Count 210 # Mean Platelet Volume 10.9 H Immature 0.400 Granulocytes % Neutrophils % 79.1 H Lymphocytes % 14.0 L Monocytes % 5.7 Eosinophils % 0.5 Basophils % 0.3 Nucleated Red Blood 0.0 Cells % Immature 0.060 H Granulocytes # Neutrophils # 11.6 H Lymphocytes # 2.1 Monocytes # 0.8 Eosinophils # 0.1 Basophils # 0.1 Nucleated Red Blood 0.0 Cells # Sodium Level 134 L Potassium Level 4.2 Chloride Level 109 Carbon Dioxide Level 22 Anion Gap 3 L Blood Urea Nitrogen 15 Creatinine 0.95 Est Glomerular Filtrat Rate mL/min Glucose Level 61 #L Calcium Level 8.3 L Test 10/23/18 12:19 Bedside Glucose 77 Medications Medication Current Medications Allopurinol (Zyloprim) 100 mg BID PO Last administered on 10/22/18at 20:45; Admin Dose 100 MG; Start 10/07/18 at 21:00 Aspirin (Halfprin) 81 mg DAILY PO Last administered on 10/08/18at 08:14; Admin Dose 81 MG; Start 10/08/18 at 09:00; Status Hold Docusate Sodium (Colace) 100 mg TID PO Last administered on 10/23/18at 12:16; Admin Dose 100 MG; Start 10/07/18 at 21:00 Pantoprazole (Protonix Tab) 40 mg DAILY@06 PO Last administered on 10/23/18at 05:10; Admin Dose 40 MG; Start 10/08/18 at 06:00 IV Flush (NS 3 ml) 3 ml PER PROTOCOL IV ; Start 10/07/18 at 12:30 Ondansetron HCl (Zofran Inj) 4 mg Q6H PRN IV NAUSEA/VOMITING; Start 10/07/18 at 12:30 Acetaminophen (Tylenol Tab) 650 mg Q6H PRN PO .PAIN 1-3 OR TEMP Last administered on 10/16/18at 18:56; Admin Dose 650 MG; Start 10/07/18 at 12:30 Acetaminophen/ Hydrocodone Bitart ([place] (5/325)) 1 tab Q6H PRN PO .PAIN 4-6 Last administered on 10/21/18at 23:48; Admin Dose 1 TAB; Start 10/07/18 at 12:30 Clonidine (Catapres) 0.1 mg BID PO Last administered on 10/16/18at 08:46; Admin Dose 0.1 MG; Start 10/07/18 at 22:00; Status Hold Miscellaneous Information 1 ea NOTE XX ; Start 10/07/18 at 21:00 Glucose (Glutose) 15 gm Q15M PRN PO DECREASED GLUCOSE; Start 10/07/18 at 21:00 Glucose (Glutose) 22.5 gm Q15M PRN PO DECREASED GLUCOSE; Start 10/07/18 at 21:00 Dextrose (D50w Syringe) 25 ml Q15M PRN IV DECREASED GLUCOSE Last administered on 10/21/18at 08:09; Admin Dose 25 ML; Start 10/07/18 at 21:00 Dextrose (D50w Syringe) 50 ml Q15M PRN IV DECREASED GLUCOSE; Start 10/07/18 at 21:00 Glucagon (Glucagen) 1 mg Q15M PRN IM DECREASED GLUCOSE; Start 10/07/18 at 21:00 Glucose (Glutose) 15 gm Q15M PRN BUCCAL DECREASED GLUCOSE; Start 10/07/18 at 21:00 Collagenase (Santyl) 1 applic DAILY TOP Last administered on 10/20/18at 09:06; Admin Dose 1 APPLIC; Start 10/09/18 at 19:00 Sodium Hypochlorite (Dakins Diluted (40)) 1 applic DAILY TP Last administered on 10/20/18at 09:07; Admin Dose 1 APPLIC; Start 10/11/18 at 09:00 Quetiapine Fumarate (Seroquel) 25 mg BID@0900,1200 PO Last administered on 10/23/18at 12:17; Admin Dose 25 MG; Start 10/11/18 at 12:00 Quetiapine Fumarate (Seroquel) 50 mg HS PO Last administered on 10/22/18at 20:47; Admin Dose 50 MG; Start 10/11/18 at 21:00 Morphine Sulfate (morphine) 2 mg Q4H PRN IV SEVERE PAIN LEVEL 7-10 Last administered on 10/22/18at 21:25; Admin Dose 2 MG; Start 10/15/18 at 21:00 Collagenase (Santyl) 1 applic DAILY TOP Last administered on 10/20/18at 09:06; Admin Dose 1 APPLIC; Start 10/17/18 at 12:00 Lubiprostone (Amitiza) 24 mcg BID PO Last administered on 10/22/18at 20:45; Admin Dose 24 MCG; Start 10/20/18 at 21:00 Ciprofloxacin (Cipro) 500 mg BID@06,18 PO Last administered on 10/23/18at 05:10; Admin Dose 500 MG; Start 10/21/18 at 18:00 Insulin Glargine (Lantus) 8 units DAILY@1200 SC Last administered on 10/22/18at 13:00; Admin Dose 8 UNITS; Start 10/22/18 at 12:00 Lisinopril (Zestril) 20 mg DAILY PO Last administered on 10/21/18at 17:51; Admin Dose 20 MG; Start 10/21/18 at 17:30 Hydralazine HCl (Apresoline) 10 mg Q4H PRN IV >160/95; Start 10/21/18 at 17:30 Potassium Chloride/Sodium Chloride 1,000 ml @ 60 mls/hr [id number] IV Last administered on 10/22/18at 20:47; Admin Dose 60 MLS/HR; Start 10/22/18 at 17:30 Insulin Aspart (Novolog Insulin Pen) NOVOLOG *MILD* ALGORITHM WITH MEALS BEDTIME SC ; Start 10/22/18 at 21:00 Diagnostic Test (Pha) (Accu-Chek) 1 ea 02 XX ; Start 10/23/18 at 02:00 Multivitamins Therapeutic (Theragran) 1 tab DAILY PO ; Start 10/23/18 at 09:00 Zinc Sulfate (Zinc Sulfate) 220 mg DAILY PO ; Start 10/23/18 at 09:00; Stop 11/06/18 at 09:00 Ascorbic Acid (Vitamin C) 250 mg DAILY PO ; Start 10/23/18 at 09:00 Collagenase (Santyl) 1 applic DAILY TOP Last administered on 10/23/18at 11:40; Admin Dose 1 APPLIC; Start 10/23/18 at 11:00 BARBARA ORDAZ NP Oct 23, 2018 12:42
[2018-10-23] MEDS: INSULIN GLARGINE [LANTus] (100 UNITS/ML) SYG SC SCH (12:53)
[2018-10-23] MEDS: D5W-0.45 NACL + KCL 20 MEQ 1,000 ML IV SCH (13:29)
[2018-10-23] MEDS ORDERED: CASPOFUNGIN 70 MG in SOD CHLORIDE 0.9% 250 ML IVPB ONE (13:30)
--- NOTE | 2018-10-23 13:38 | CONS ---
Assessment/Plan Assessment/Plan Assessment/Plan (Daily) Right heel decubitus ulceration stage 4 DM2 with peripheral neuropathy Right foot osteomyelitis Right 5th digit nevus PAD Left lower extremity ulceration Sepsis 2/2 to UTI and early pneumonia Lack of mobility Delirium Plan Hold off wound VAC and recommended dressing changes with santyl and betadine. Continue with offloading of heels. Intra op wound culture showing proteus mirabilis. Intra op path of right 5th digit skin lesion showing compound melanocytic nevus, predominantly intradermal. Melanin incontinence. No evidence of dysplasia or malignancy. Intra op heel bone pathology showed acute osteomyelitis. Continue with abx per ID recommendations. Left lower extremity ulceration being followed by Dr. Garcia. Appreciate vascular surgery input from Dr. Garcia. Consultation Date/Type/Reason Admit Date/Time Oct 07, 2018 at 03:37 Initial Consult Date 10/10/18 Requesting Provider: JAGJIT MONTES MD Date/Time of Note DATE: 10/23/18 TIME: 13:37 24 HR Interval Summary Free Text/Dictation No acute events overnight. Exam/Review of Systems Exam Vitals Vital Signs Date Temp Pulse Resp B/P (MAP) Pulse Ox O2 O2 Flow FiO2 Time Delivery Rate 10/23/18 Nasal 2 09:01 Cannula 10/23/18 98.4 78 17 104/73 95 08:15 (83) 10/19/18 27 19:25 Intake and Output 10/22/18 10/22/18 10/23/18 1515:00 23:00 07:00 IntakeIntake Total 1150 ml 510 ml OutputOutput Total 300 ml 0 ml 400 ml BalanceBalance -300 ml 1150 ml 110 ml Exam right posterior heel wound base fibrogranular there is a proximal skin tear of the heel Mild maceration noted Mild ecchymosis to periwound region Pain on palpation to heel site Right posterior heel ulcer 2.6 x 2.3 x 2.2cm which probes to bone with fibrogranular wound bed. No purulent drainage appreciated. Results Result Diagram: 10/23/18 0631 10/23/18 0631 Results 24hrs Laboratory Tests Test 10/22/18 17:05 10/22/18 20:43 10/23/18 06:31 10/23/18 08:08 Bedside Glucose 123 77 78 White Blood Count 14.6 #H Red Blood Count 3.28 L Hemoglobin 8.5 L Hematocrit 27.9 L Mean Corpuscular 85.1 Volume Mean Corpuscular 25.9 L Hemoglobin Mean Corpuscular 30.5 L Hemoglobin Concent Red Cell 17.9 H Distribution Width Platelet Count 210 # Mean Platelet Volume 10.9 H Immature 0.400 Granulocytes % Neutrophils % 79.1 H Lymphocytes % 14.0 L Monocytes % 5.7 Eosinophils % 0.5 Basophils % 0.3 Nucleated Red Blood 0.0 Cells % Immature 0.060 H Granulocytes # Neutrophils # 11.6 H Lymphocytes # 2.1 Monocytes # 0.8 Eosinophils # 0.1 Basophils # 0.1 Nucleated Red Blood 0.0 Cells # Sodium Level 134 L Potassium Level 4.2 Chloride Level 109 Carbon Dioxide Level 22 Anion Gap 3 L Blood Urea Nitrogen 15 Creatinine 0.95 Est Glomerular Filtrat Rate mL/min Glucose Level 61 #L Calcium Level 8.3 L Test 10/23/18 12:19 Bedside Glucose 77 Medications Medication Current Medications Allopurinol (Zyloprim) 100 mg BID PO Last administered on 10/22/18at 20:45; Admin Dose 100 MG; Start 10/07/18 at 21:00 Aspirin (Halfprin) 81 mg DAILY PO Last administered on 10/08/18at 08:14; Admin Dose 81 MG; Start 10/08/18 at 09:00; Status Hold Docusate Sodium (Colace) 100 mg TID PO Last administered on 10/23/18at 12:16; Admin Dose 100 MG; Start 10/07/18 at 21:00 Pantoprazole (Protonix Tab) 40 mg DAILY@06 PO Last administered on 10/23/18at 05:10; Admin Dose 40 MG; Start 10/08/18 at 06:00 IV Flush (NS 3 ml) 3 ml PER PROTOCOL IV ; Start 10/07/18 at 12:30 Ondansetron HCl (Zofran Inj) 4 mg Q6H PRN IV NAUSEA/VOMITING; Start 10/07/18 at 12:30 Acetaminophen (Tylenol Tab) 650 mg Q6H PRN PO .PAIN 1-3 OR TEMP Last administered on 10/16/18at 18:56; Admin Dose 650 MG; Start 10/07/18 at 12:30 Acetaminophen/ Hydrocodone Bitart ([place] (5/325)) 1 tab Q6H PRN PO .PAIN 4-6 Last administered on 10/21/18at 23:48; Admin Dose 1 TAB; Start 10/07/18 at 12:30 Clonidine (Catapres) 0.1 mg BID PO Last administered on 10/16/18at 08:46; Admin Dose 0.1 MG; Start 10/07/18 at 22:00; Status Hold Miscellaneous Information 1 ea NOTE XX ; Start 10/07/18 at 21:00 Glucose (Glutose) 15 gm Q15M PRN PO DECREASED GLUCOSE; Start 10/07/18 at 21:00 Glucose (Glutose) 22.5 gm Q15M PRN PO DECREASED GLUCOSE; Start 10/07/18 at 21:00 Dextrose (D50w Syringe) 25 ml Q15M PRN IV DECREASED GLUCOSE Last administered on 10/21/18at 08:09; Admin Dose 25 ML; Start 10/07/18 at 21:00 Dextrose (D50w Syringe) 50 ml Q15M PRN IV DECREASED GLUCOSE; Start 10/07/18 at 21:00 Glucagon (Glucagen) 1 mg Q15M PRN IM DECREASED GLUCOSE; Start 10/07/18 at 21:00 Glucose (Glutose) 15 gm Q15M PRN BUCCAL DECREASED GLUCOSE; Start 10/07/18 at 21:00 Collagenase (Santyl) 1 applic DAILY TOP Last administered on 10/20/18at 09:06; Admin Dose 1 APPLIC; Start 10/09/18 at 19:00 Sodium Hypochlorite (Dakins Diluted (1/40)) 1 applic DAILY TP Last administered on 10/20/18at 09:07; Admin Dose 1 APPLIC; Start 10/11/18 at 09:00 Quetiapine Fumarate (Seroquel) 25 mg BID@0900,1200 PO Last administered on 10/23/18 12:17; Admin Dose 25 MG; Start 10/11/18 at 12:00 Quetiapine Fumarate (Seroquel) 50 mg HS PO Last administered on 10/22/18at 20:47; Admin Dose 50 MG; Start 10/11/18 at 21:00 Morphine Sulfate (morphine) 2 mg Q4H PRN IV SEVERE PAIN LEVEL 7-10 Last administered on 10/22/18at 21:25; Admin Dose 2 MG; Start 10/15/18 at 21:00 Collagenase (Santyl) 1 applic DAILY TOP Last administered on 10/20/18at 09:06; Admin Dose 1 APPLIC; Start 10/17/18 at 12:00 Lubiprostone (Amitiza) 24 mcg BID PO Last administered on 10/22/18at 20:45; Admin Dose 24 MCG; Start 10/20/18 at 21:00 Ciprofloxacin (Cipro) 500 mg BID@06,18 PO Last administered on 10/23/18at 05:10; Admin Dose 500 MG; Start 10/21/18 at 18:00 Insulin Glargine (Lantus) 8 units DAILY@1200 SC Last administered on 10/23/18at 12:53; Admin Dose 8 UNITS; Start 10/22/18 at 12:00 Lisinopril (Zestril) 20 mg DAILY PO Last administered on 10/21/18at 17:51; Admin Dose 20 MG; Start 10/21/18 at 17:30 Hydralazine HCl (Apresoline) 10 mg Q4H PRN IV >160/95; Start 10/21/18 at 17:30 Insulin Aspart (Novolog Insulin Pen) NOVOLOG *MILD* ALGORITHM WITH MEALS BEDTIME SC ; Start 10/22/18 at 21:00 Diagnostic Test (Pha) (Accu-Chek) 1 ea 02 XX ; Start 10/23/18 at 02:00 Multivitamins Therapeutic (Theragran) 1 tab DAILY PO ; Start 10/23/18 at 09:00 Zinc Sulfate (Zinc Sulfate) 220 mg DAILY PO ; Start 10/23/18 at 09:00; Stop 11/06/18 at 09:00 Ascorbic Acid (Vitamin C) 250 mg DAILY PO ; Start 10/23/18 at 09:00 Collagenase (Santyl) 1 applic DAILY TOP Last administered on 10/23/18at 11:40; Admin Dose 1 APPLIC; Start 10/23/18 at 11:00 Caspofungin 50 mg/ Sodium Chloride 250 ml @ 250 mls/hr Q24H IVPB ; Start 10/24/18 at 14:00 Caspofungin 70 mg/ Sodium Chloride 250 ml @ 250 mls/hr ONCE ONCE IVPB ; Start 10/23/18 at 13:30; Stop 10/23/18 at 14:29 Potassium Chloride/Dextrose/ Sod Cl 1,000 ml @ 70 mls/hr [id number] IV Last administered on 10/23/18at 13:29; Admin Dose 70 MLS/HR; Start 10/23/18 at 13:00 NANCY DIANE DPM Oct 23, 2018 13:38
[2018-10-23 14:00] VITALS: BP 116/55; PULSE 82; RESP 18
--- NOTE | 2018-10-23 14:05 | PN ---
"Date/Time of Note Date/Time of Note DATE: 10/23/18 TIME: 13:47 Assessment/Plan Lines/Catheters IV Catheter Type (from Nrsg): Mid Line [place] in Place (from Nrsg): Yes Assessment/Plan Chief Complaint/Hosp Course 1. Right buttock wound; Foot wound with osteo; right buttock wound healing -debridement of right buttock wound as needed -continue local care -frequent turning and off-loading -low air loss mattress -vitamin c -short term zinc -optimize nutrition -foot wounds per podiatry> status post debridement currently with wound VAC -calf wound per vascular 2. 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 BRANDNO: Resolved; hypoechoic lesion left kidney, possible neoplasm; hx of renal ca and nephrectomy -Monitor -armenta for neoplasm>per medical team 4. Microcytic hypochromic anemia: sp prbc tx; colonoscopy pending today -monitor -transfuse as needed 5. Obesity bmi 31 -diet and exercise optimization -encourage weight loss 6. Poor appetite: -supportive -treat infections 7. Hepatic steatosis: -nutrition and weight optimization -medical fu 8. Gastritis: -PPI 9. Constipation: now + bowel function -per gi 10. Diabetes with hypoglycemic episode -glucose optimization - med adjustment per medical team 11. UTI: -abx per sensitivity -frequent bladder emptying/cath care Thank you. Patient seen and examined in collaboration with Dr. Isaac Erwin. Subjective 24 Hr Interval Summary Appears comfortable. Nonverbal indicators of pain at present. Status post colonoscopy with noted malignant lesion in proximal transverse colon. No fevers, labored breathing, congested cough, vomiting, diarrhea, seizure, rash. Exam/Review of Systems Vital Signs Vitals Vital Signs Date Temp Pulse Resp B/P (MAP) Pulse Ox O2 O2 Flow FiO2 Time Delivery Rate 10/23/18 Nasal 2 09:01 Cannula 10/23/18 98.4 78 17 104/73 95 08:15 (83) 10/19/18 27 19:25 Intake and Output 10/22/18 10/22/18 10/23/18 1515:00 23:00 07:00 IntakeIntake Total 1150 ml 510 ml OutputOutput Total 300 ml 0 ml 400 ml BalanceBalance -300 ml 1150 ml 110 ml Exam Free Text/Dictation Constitutional: alert; No oriented (confused) Psych: anxiety Head: normocephalic, atraumatic Eyes: nl conjunctiva, EOMI, nl lids, nl sclera ENMT: nl external ears & nose, nl nasal mucosa & septum, mucosa pink and moist Neck: supple, non-tender Respiratory: normal air movement; No congested cough Cardiovascular: regular rate and rhythm, nl pulses; No edema Gastrointestinal: soft, non-tender; No distended, No rebound or guarding Genitourinary - Female: nl external genitalia Musculoskeletal: nl extremities to inspection, muscle weakness (gen weakness) Extremities: normal pulses; No edema, No pitting pedal edema Neurological: nl speech; No nl mental status (forgetful), No nl strength (gen weakness) Skin: other (Multiple wounds: right buttock: clean, granulating, no periwound erythema/drainage/odor | Left calf:min slough, wrapped | Bilateral foot wounds; r foot w wound vac); No rash or lesions Results Result Diagram: 10/23/18 0631 10/23/18 0631 JUSTINE GUEVARA NP Oct 23, 2018 14:05"
[2018-10-23] MEDS ORDERED: IOHEXOL 14.3 MG(I)/ML (ADULT) BTL PO ONE (15:30)
--- NOTE | 2018-10-23 16:19 | CONS ---
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 Echo dense structure seen by tricuspid valve, right atrium and IVC-thrombus, veg etation versus tumor CAD with history of CABG History of renal carcinoma status post nephrectomy approximately 8 years ago History of hypertension Diabetes Paroxysmal atrial fibrillation, intolerant to anticoagulation Newly diagnosed colon cancer Titrate antihypertensives as needed Consider restarting lasix if ok with renal Consultation Date/Type/Reason Admit Date/Time Oct 07, 2018 at 03:37 Initial Consult Date 10/07/18 Type of Consult Cardiology Requesting Provider: JAGJIT MONTES MD Date/Time of Note DATE: 10/23/18 TIME: 16:17 24 HR Interval Summary Free Text/Dictation Seen and examined Exam/Review of Systems Vital Signs Vitals Vital Signs Date Temp Pulse Resp B/P (MAP) Pulse Ox O2 O2 Flow FiO2 Time Delivery Rate 10/23/18 98.0 82 18 116/55 95 Room Air 14:00 (75) 10/23/18 2 09:01 10/19/18 27 19:25 Intake and Output 10/22/18 10/22/18 10/23/18 1515:00 23:00 07:00 IntakeIntake Total 1150 ml 510 ml OutputOutput Total 300 ml 0 ml 400 ml BalanceBalance -300 ml 1150 ml 110 ml Exam Exam Sleeping, no apparent distress Head: normocephalic Respiratory: other (Coarse breath sounds bilaterally, no wheezing) Cardiovascular: regular rate and rhythm (S1-S2 heard) Gastrointestinal: soft, non-tender, bowel sounds Extremities: edema Labs Result Diagram: 10/23/18 0631 10/23/18 0631 Results 24hrs Laboratory Tests Test 10/22/18 17:05 10/22/18 20:43 10/23/18 06:31 10/23/18 08:08 Bedside Glucose 123 77 78 White Blood Count 14.6 #H Red Blood Count 3.28 L Hemoglobin 8.5 L Hematocrit 27.9 L Mean Corpuscular 85.1 Volume Mean Corpuscular 25.9 L Hemoglobin Mean Corpuscular 30.5 L Hemoglobin Concent Red Cell 17.9 H Distribution Width Platelet Count 210 # Mean Platelet Volume 10.9 H Immature 0.400 Granulocytes % Neutrophils % 79.1 H Lymphocytes % 14.0 L Monocytes % 5.7 Eosinophils % 0.5 Basophils % 0.3 Nucleated Red Blood 0.0 Cells % Immature 0.060 H Granulocytes # Neutrophils # 11.6 H Lymphocytes # 2.1 Monocytes # 0.8 Eosinophils # 0.1 Basophils # 0.1 Nucleated Red Blood 0.0 Cells # Sodium Level 134 L Potassium Level 4.2 Chloride Level 109 Carbon Dioxide Level 22 Anion Gap 3 L Blood Urea Nitrogen 15 Creatinine 0.95 Est Glomerular Filtrat Rate mL/min Glucose Level 61 #L Calcium Level 8.3 L Test 10/23/18 12:19 Bedside Glucose 77 Medications Medications Current Medications Allopurinol (Zyloprim) 100 mg BID PO Last administered on 10/22/18at 20:45; Admin Dose 100 MG; Start 10/07/18 at 21:00 Aspirin (Halfprin) 81 mg DAILY PO Last administered on 10/08/18at 08:14; Admin Dose 81 MG; Start 10/08/18 at 09:00; Status Hold Docusate Sodium (Colace) 100 mg TID PO Last administered on 10/23/18at 12:16; Admin Dose 100 MG; Start 10/07/18 at 21:00 Pantoprazole (Protonix Tab) 40 mg DAILY@06 PO Last administered on 10/23/18at 05:10; Admin Dose 40 MG; Start 10/08/18 at 06:00 IV Flush (NS 3 ml) 3 ml PER PROTOCOL IV ; Start 10/07/18 at 12:30 Ondansetron HCl (Zofran Inj) 4 mg Q6H PRN IV NAUSEA/VOMITING; Start 10/07/18 at 12:30 Acetaminophen (Tylenol Tab) 650 mg Q6H PRN PO .PAIN 1-3 OR TEMP Last administered on 10/16/18at 18:56; Admin Dose 650 MG; Start 10/07/18 at 12:30 Acetaminophen/ Hydrocodone Bitart ([place] (5/325)) 1 tab Q6H PRN PO .PAIN 4-6 Last administered on 10/21/18at 23:48; Admin Dose 1 TAB; Start 10/07/18 at 12:30 Clonidine (Catapres) 0.1 mg BID PO Last administered on 10/16/18at 08:46; Admin Dose 0.1 MG; Start 10/07/18 at 22:00; Status Hold Miscellaneous Information 1 ea NOTE XX ; Start 10/07/18 at 21:00 Glucose (Glutose) 15 gm Q15M PRN PO DECREASED GLUCOSE; Start 10/07/18 at 21:00 Glucose (Glutose) 22.5 gm Q15M PRN PO DECREASED GLUCOSE; Start 10/07/18 at 21:00 Dextrose (D50w Syringe) 25 ml Q15M PRN IV DECREASED GLUCOSE Last administered on 10/21/18 08:09; Admin Dose 25 ML; Start 10/07/18 at 21:00 Dextrose (D50w Syringe) 50 ml Q15M PRN IV DECREASED GLUCOSE; Start 10/07/18 at 21:00 Glucagon (Glucagen) 1 mg Q15M PRN IM DECREASED GLUCOSE; Start 10/07/18 at 21:00 Glucose (Glutose) 15 gm Q15M PRN BUCCAL DECREASED GLUCOSE; Start 10/07/18 at 21:00 Collagenase (Santyl) 1 applic DAILY TOP Last administered on 10/20/18at 09:06; Admin Dose 1 APPLIC; Start 10/09/18 at 19:00 Sodium Hypochlorite (Dakins Diluted (40)) 1 applic DAILY TP Last administered on 10/20/18at 09:07; Admin Dose 1 APPLIC; Start 10/11/18 at 09:00 Quetiapine Fumarate (Seroquel) 25 mg BID@0900,1200 PO Last administered on 12:17; Admin Dose 25 MG; Start 10/11/18 at 12:00 Quetiapine Fumarate (Seroquel) 50 mg HS PO Last administered on 10/22/18 20:47; Admin Dose 50 MG; Start 10/11/18 at 21:00 Morphine Sulfate (morphine) 2 mg Q4H PRN IV SEVERE PAIN LEVEL 7-10 Last administered on 10/22/18 21:25; Admin Dose 2 MG; Start 10/15/18 at 21:00 Collagenase (Santyl) 1 applic DAILY TOP Last administered on 10/20/18 09:06; Admin Dose 1 APPLIC; Start 10/17/18 at 12:00 Lubiprostone (Amitiza) 24 mcg BID PO Last administered on 10/22/18at 20:45; Admin Dose 24 MCG; Start 10/20/18 at 21:00 Ciprofloxacin (Cipro) 500 mg BID@06,18 PO Last administered on 10/23/18at 05:10; Admin Dose 500 MG; Start 10/21/18 at 18:00 Insulin Glargine (Lantus) 8 units DAILY@1200 SC Last administered on 10/23/18at 12:53; Admin Dose 8 UNITS; Start 10/22/18 at 12:00 Lisinopril (Zestril) 20 mg DAILY PO Last administered on 10/21/18at 17:51; Admin Dose 20 MG; Start 10/21/18 at 17:30 Hydralazine HCl (Apresoline) 10 mg Q4H PRN IV >160/95; Start 10/21/18 at 17:30 Insulin Aspart (Novolog Insulin Pen) NOVOLOG *MILD* ALGORITHM WITH MEALS BED TIME SC ; Start 10/22/18 at 21:00 Diagnostic Test (Pha) (Accu-Chek) 1 ea 02 XX ; Start 10/23/18 at 02:00 Multivitamins Therapeutic (Theragran) 1 tab DAILY PO ; Start 10/23/18 at 09:00 Zinc Sulfate (Zinc Sulfate) 220 mg DAILY PO ; Start 10/23/18 at 09:00; Stop 11/06/18 at 09:00 Ascorbic Acid (Vitamin C) 250 mg DAILY PO ; Start 10/23/18 at 09:00 Collagenase (Santyl) 1 applic DAILY TOP Last administered on 10/23/18at 11:40; Admin Dose 1 APPLIC; Start 10/23/18 at 11:00 Caspofungin 50 mg/ Sodium Chloride 250 ml @ 250 mls/hr Q24H IVPB ; Start 10/24/18 at 14:00 Potassium Chloride/Dextrose/ Sod Cl 1,000 ml @ 70 mls/hr [id number] IV Last administered on 10/23/18at 13:29; Admin Dose 70 MLS/HR; Start 10/23/18 at 13:00 Alex Chávez DO Oct 23, 2018 16:19
--- NOTE | 2018-10-23 17:31 | PN ---
Date/Time of Note Date/Time of Note DATE: 10/23/18 TIME: 17:26 Assessment/Plan VTE Prophylaxis Risk score (from Nsg)>0 risk: 11 SCD contraindicated: bilateral LE trauma Pharmacological prophylaxis: NA/contraindicated Pharm contraindication: anticoag not tolerated Lines/Catheters IV Catheter Type (from Nrsg): Mid Line Central line still needed: Yes Urinary Cath still in place: Yes Reason Cath still needed: urinary retention Assessment/Plan Hospital Course Patient remains hemodynamically stable, no distress, marginal urine output and poor appetite, continue IV fluids with dextrose with Lantus and NovoLog coverage. Assessment/Plan -Status post colonoscopy with notion of ulcerated lesions consistent with malignancy. Pathology revealed well-differentiated carcinoma. Dr. Valencia is asked to see patient in oncology consultation. -Chronic gastritis per EGD, continue PPI. -Anemia, history of emesis at home and loss of appetite. Dr. Winkler is following in gastroenterology consultation. Colonoscopy recommended however patient is unable to take p.o. prep, patient's son refused NG tube placement. Patient is not able to tolerate Gastrografin enema. -Sepsis secondary to urinary tract infection and possible early pneumonia, resolving. Continue antibiotics per ID. Dr. Elias is following in infection disease consultation. -UTI. Status post treatment with antibiotics. -Hyperkalemia, resolved, status post treatment -Acute kidney injury, continue gentle hydration, monitor BUN and creatinine. Dr. Arreaga is following in nephrology consultation. -Hypertension -Systolic congestive heart failure. Dr. Chávez is following in cardiology consultation. -Cardiomyopathy with ejection fraction 50% -Atrial fibrillation, patient did not tolerate anticoagulation in the past due to bleeding and anemia, patient was on aspirin which is currently held due significant drop in hemoglobin. -Coronary artery disease, status post CABG -Diabetes mellitus type 2, continue Lantus and pre-meal NovoLog. -History of endocarditis, status post treatment -Sacral, right foot, and left garcia wounds present on admission. Continue current care per wound care recommendations. -Right heel wound with early osteomyelitis, status post debridement and application of allograft and wound VAC on 10/15/2018, Dr. Garland is following and podiatry consultation. Continue antibiotics per ID. -History of left femoral artery thrombectomy, left garcia open wound. Continue current wound care. Dr. Dawson is following in vascular surgery consultation. No inpatient procedures planned. Further recommendations based on clinical course. Plan of care discussed with Dr. Mi. Result Diagram: 10/23/1831 10/23/18 0631 Results 24hrs Laboratory Tests Test 10/22/18 20:43 10/23/18 06:31 10/23/18 08:08 10/23/18 12:19 Bedside Glucose 77 78 77 White Blood Count 14.6 #H Red Blood Count 3.28 L Hemoglobin 8.5 L Hematocrit 27.9 L Mean Corpuscular 85.1 Volume Mean Corpuscular 25.9 L Hemoglobin Mean Corpuscular 30.5 L Hemoglobin Concent Red Cell 17.9 H Distribution Width Platelet Count 210 # Mean Platelet Volume 10.9 H Immature 0.400 Granulocytes % Neutrophils % 79.1 H Lymphocytes % 14.0 L Monocytes % 5.7 Eosinophils % 0.5 Basophils % 0.3 Nucleated Red Blood 0.0 Cells % Immature 0.060 H Granulocytes # Neutrophils # 11.6 H Lymphocytes # 2.1 Monocytes # 0.8 Eosinophils # 0.1 Basophils # 0.1 Nucleated Red Blood 0.0 Cells # Sodium Level 134 L Potassium Level 4.2 Chloride Level 109 Carbon Dioxide Level 22 Anion Gap 3 L Blood Urea Nitrogen 15 Creatinine 0.95 Est Glomerular Filtrat Rate mL/min Glucose Level 61 #L Calcium Level 8.3 L Exam/Review of Systems Exam Vitals Vital Signs Date Temp Pulse Resp B/P (MAP) Pulse Ox O2 O2 Flow FiO2 Time Delivery Rate 10/23/18 98.0 82 18 116/55 95 Room Air 14:00 (75) 10/23/18 2 09:01 10/19/18 27 19:25 Intake and Output 10/22/18 10/22/18 10/23/18 1515:00 23:00 07:00 IntakeIntake Total 1150 ml 510 ml OutputOutput Total 300 ml 0 ml 400 ml BalanceBalance -300 ml 1150 ml 110 ml Exam Constitutional: alert, frail Head: normocephalic Respiratory: clear to auscultation Cardiovascular: regular rate and rhythm Gastrointestinal: soft, non-tender Musculoskeletal: nl extremities to inspection Extremities: normal pulses, other (Right foot wound with wound VAC) Skin: other (Left garcia and sacral wounds) Results Results 24hrs Laboratory Tests Test 10/22/18 20:43 10/23/18 06:31 10/23/18 08:08 10/23/18 12:19 Bedside Glucose 77 78 77 White Blood Count 14.6 #H Red Blood Count 3.28 L Hemoglobin 8.5 L Hematocrit 27.9 L Mean Corpuscular 85.1 Volume Mean Corpuscular 25.9 L Hemoglobin Mean Corpuscular 30.5 L Hemoglobin Concent Red Cell 17.9 H Distribution Width Platelet Count 210 # Mean Platelet Volume 10.9 H Immature 0.400 Granulocytes % Neutrophils % 79.1 H Lymphocytes % 14.0 L Monocytes % 5.7 Eosinophils % 0.5 Basophils % 0.3 Nucleated Red Blood 0.0 Cells % Immature 0.060 H Granulocytes # Neutrophils # 11.6 H Lymphocytes # 2.1 Monocytes # 0.8 Eosinophils # 0.1 Basophils # 0.1 Nucleated Red Blood 0.0 Cells # Sodium Level 134 L Potassium Level 4.2 Chloride Level 109 Carbon Dioxide Level 22 Anion Gap 3 L Blood Urea Nitrogen 15 Creatinine 0.95 Est Glomerular Filtrat Rate mL/min Glucose Level 61 #L Calcium Level 8.3 L Medications Medication Current Medications Allopurinol (Zyloprim) 100 mg BID PO Last administered on 10/22/18at 20:45; Admin Dose 100 MG; Start 10/07/18 at 21:00 Aspirin (Halfprin) 81 mg DAILY PO Last administered on 10/08/18at 08:14; Admin Dose 81 MG; Start 10/08/18 at 09:00; Status Hold Docusate Sodium (Colace) 100 mg TID PO Last administered on 10/23/18at 12:16; Admin Dose 100 MG; Start 10/07/18 at 21:00 Pantoprazole (Protonix Tab) 40 mg DAILY@06 PO Last administered on 10/23/18at 05:10; Admin Dose 40 MG; Start 10/08/18 at 06:00 IV Flush (NS 3 ml) 3 ml PER PROTOCOL IV ; Start 10/07/18 at 12:30 Ondansetron HCl (Zofran Inj) 4 mg Q6H PRN IV NAUSEA/VOMITING; Start 10/07/18 at 12:30 Acetaminophen (Tylenol Tab) 650 mg Q6H PRN PO .PAIN 1-3 OR TEMP Last administered on 10/16/18at 18:56; Admin Dose 650 MG; Start 10/07/18 at 12:30 Acetaminophen/ Hydrocodone Bitart ([place] (5/325)) 1 tab Q6H PRN PO .PAIN 4-6 Last administered on 10/21/18at 23:48; Admin Dose 1 TAB; Start 10/07/18 at 12:30 Clonidine (Catapres) 0.1 mg BID PO Last administered on 10/16/18at 08:46; Admin Dose 0.1 MG; Start 10/07/18 at 22:00; Status Hold Miscellaneous Information 1 ea NOTE XX ; Start 10/07/18 at 21:00 Glucose (Glutose) 15 gm Q15M PRN PO DECREASED GLUCOSE; Start 10/07/18 at 21:00 Glucose (Glutose) 22.5 gm Q15M PRN PO DECREASED GLUCOSE; Start 10/07/18 at 21:00 Dextrose (D50w Syringe) 25 ml Q15M PRN IV DECREASED GLUCOSE Last administered on 10/21/18at 08:09; Admin Dose 25 ML; Start 10/07/18 at 21:00 Dextrose (D50w Syringe) 50 ml Q15M PRN IV DECREASED GLUCOSE; Start 10/07/18 at 21:00 Glucagon (Glucagen) 1 mg Q15M PRN IM DECREASED GLUCOSE; Start 10/07/18 at 21:00 Glucose (Glutose) 15 gm Q15M PRN BUCCAL DECREASED GLUCOSE; Start 10/07/18 at 21:00 Collagenase (Santyl) 1 applic DAILY TOP Last administered on 10/20/18at 09:06; Admin Dose 1 APPLIC; Start 10/09/18 at 19:00 Sodium Hypochlorite (Dakins Diluted ()) 1 applic DAILY TP Last administered on 10/20/18at 09:07; Admin Dose 1 APPLIC; Start 10/11/18 at 09:00 Quetiapine Fumarate (Seroquel) 25 mg BID@0900,1200 PO Last administered on 10/23/18 12:17; Admin Dose 25 MG; Start 10/11/18 at 12:00 Quetiapine Fumarate (Seroquel) 50 mg HS PO Last administered on 10/22/18at 20:47; Admin Dose 50 MG; Start 10/11/18 at 21:00 Morphine Sulfate (morphine) 2 mg Q4H PRN IV SEVERE PAIN LEVEL 7-10 Last administered on 7/24/19at 21:25; Admin Dose 2 MG; Start 10/15/18 at 21:00 Collagenase (Santyl) 1 applic DAILY TOP Last administered on 10/20/18at 09:06; Admin Dose 1 APPLIC; Start 10/17/18 at 12:00 Lubiprostone (Amitiza) 24 mcg BID PO Last administered on 10/22/18at 20:45; Admin Dose 24 MCG; Start 10/20/18 at 21:00 Ciprofloxacin (Cipro) 500 mg BID@06,18 PO Last administered on 10/23/18at 05:10; Admin Dose 500 MG; Start 10/21/18 at 18:00 Insulin Glargine (Lantus) 8 units DAILY@1200 SC Last administered on 10/23/18at 12:53; Admin Dose 8 UNITS; Start 10/22/18 at 12:00 Lisinopril (Zestril) 20 mg DAILY PO Last administered on 10/21/18at 17:51; Admin Dose 20 MG; Start 10/21/18 at 17:30 Hydralazine HCl (Apresoline) 10 mg Q4H PRN IV >160/95; Start 10/21/18 at 17:30 Insulin Aspart (Novolog Insulin Pen) NOVOLOG *MILD* ALGORITHM WITH MEALS BEDTIME SC ; Start 10/22/18 at 21:00 Diagnostic Test (Pha) (Accu-Chek) 1 ea 02 XX ; Start 10/23/18 at 02:00 Multivitamins Therapeutic (Theragran) 1 tab DAILY PO ; Start 10/23/18 at 09:00 Zinc Sulfate (Zinc Sulfate) 220 mg DAILY PO ; Start 10/23/18 at 09:00; Stop 11/06/18 at 09:00 Ascorbic Acid (Vitamin C) 250 mg DAILY PO ; Start 10/23/18 at 09:00 Collagenase (Santyl) 1 applic DAILY TOP Last administered on 10/23/18at 11:40; Admin Dose 1 APPLIC; Start 10/23/18 at 11:00 Caspofungin 50 mg/ Sodium Chloride 250 ml @ 250 mls/hr Q24H IVPB ; Start 10/24/18 at 14:00 Potassium Chloride/Dextrose/ Sod Cl 1,000 ml @ 70 mls/hr [id number] IV Last administered on 10/23/18at 13:29; Admin Dose 70 MLS/HR; Start 10/23/18 at 13:00 OCTAVIANO SHAFFER Oct 23, 2018 17:31
--- NOTE | 2018-10-23 17:34 | CONS ---
Assessment/Plan Assessment/Plan Assessment/Plan (Daily) Hospital Course (Demo Recall) 82 yo female with hl/o anemia 1. Urinary tract infection. 2. Sepsis. -gram positive rods in foot wound cx. -pos urine cx 3. Status post coronary artery bypass graft. 4. Peripheral vascular disease. 5. Atrial fibrillation. 6. Status post surgery for renal cell carcinoma 8 years ago. 7. Diabetes. 8. Hypertension. 9. Severe anemia. -IV iron 10. Transaminitis -elevated ALT/AST -improving -CBD 7mm, t bili wnl. 11. Elevated CEA: 24.1 12. Chronic gastritis 13. S/P EGD 10/13 14. Fatty liver with possible hepatocellular disease noted on US 15. 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 Charisse ink was injected. Patient definitely needs surgery Consultation Date/Type/Reason Admit Date/Time Oct 07, 2018 at 03:37 Initial Consult Date 10/07/18 Requesting Provider: JAGJIT MONTES MD Date/Time of Note DATE: 10/23/18 TIME: 17:33 24 HR Interval Summary Constitutional: no complaints, improved Exam/Review of Systems Exam Vitals Vital Signs Date Temp Pulse Resp B/P (MAP) Pulse Ox O2 O2 Flow FiO2 Time Delivery Rate 10/23/18 98.0 82 18 116/55 95 Room Air 14:00 (75) 10/23/18 2 09:01 10/19/18 27 19:25 Intake and Output 10/22/18 10/22/18 10/23/18 1515:00 23:00 07:00 IntakeIntake Total 1150 ml 510 ml OutputOutput Total 300 ml 0 ml 400 ml BalanceBalance -300 ml 1150 ml 110 ml Constitutional: alert, oriented, well developed Psych: no complaints, nl mood/affect Head: normocephalic, atraumatic Eyes: nl conjunctiva, EOMI, nl lids, nl sclera, PERRL ENMT: nl external ears & nose, nl lips & teeth, nl nasal mucosa & septum Neck: supple, non-tender Respiratory: clear to auscultation, normal air movement Cardiovascular: regular rate and rhythm, nl pulses Gastrointestinal: soft, nl liver, spleen, non-tender Musculoskeletal: nl extremities to inspection, nl gait and stance Extremities: normal pulses Neurological: [employer] II-XII intact, nl mental status, nl speech, nl strength Skin: nl turgor; No rash or lesions Lymph: nl lymph nodes Results Result Diagram: 10/23/18 0631 10/23/18 0631 Results 24hrs Laboratory Tests Test 10/22/18 20:43 10/23/18 06:31 10/23/18 08:08 10/23/18 12:19 Bedside Glucose 77 78 77 White Blood Count 14.6 #H Red Blood Count 3.28 L Hemoglobin 8.5 L Hematocrit 27.9 L Mean Corpuscular 85.1 Volume Mean Corpuscular 25.9 L Hemoglobin Mean Corpuscular 30.5 L Hemoglobin Concent Red Cell 17.9 H Distribution Width Platelet Count 210 # Mean Platelet Volume 10.9 H Immature 0.400 Granulocytes % Neutrophils % 79.1 H Lymphocytes % 14.0 L Monocytes % 5.7 Eosinophils % 0.5 Basophils % 0.3 Nucleated Red Blood 0.0 Cells % Immature 0.060 H Granulocytes # Neutrophils # 11.6 H Lymphocytes # 2.1 Monocytes # 0.8 Eosinophils # 0.1 Basophils # 0.1 Nucleated Red Blood 0.0 Cells # Sodium Level 134 L Potassium Level 4.2 Chloride Level 109 Carbon Dioxide Level 22 Anion Gap 3 L Blood Urea Nitrogen 15 Creatinine 0.95 Est Glomerular Filtrat Rate mL/min Glucose Level 61 #L Calcium Level 8.3 L Test 10/23/18 17:32 Bedside Glucose 102 Medications Medication Current Medications Allopurinol (Zyloprim) 100 mg BID PO Last administered on 10/22/18at 20:45; Admin Dose 100 MG; Start 10/07/18 at 21:00 Aspirin (Halfprin) 81 mg DAILY PO Last administered on 10/08/18at 08:14; Admin Dose 81 MG; Start 10/08/18 at 09:00; Status Hold Docusate Sodium (Colace) 100 mg TID PO Last administered on 10/23/18at 12:16; Admin Dose 100 MG; Start 10/07/18 at 21:00 Pantoprazole (Protonix Tab) 40 mg DAILY@06 PO Last administered on 10/23/18at 05:10; Admin Dose 40 MG; Start 10/08/18 at 06:00 IV Flush (NS 3 ml) 3 ml PER PROTOCOL IV ; Start 10/07/18 at 12:30 Ondansetron HCl (Zofran Inj) 4 mg Q6H PRN IV NAUSEA/VOMITING; Start 10/07/18 at 12:30 Acetaminophen (Tylenol Tab) 650 mg Q6H PRN PO .PAIN 1-3 OR TEMP Last administ ered on 10/16/18at 18:56; Admin Dose 650 MG; Start 10/07/18 at 12:30 Acetaminophen/ Hydrocodone Bitart ([place] (5/325)) 1 tab Q6H PRN PO .PAIN 4-6 Last administered on 10/21/18 23:48; Admin Dose 1 TAB; Start 10/07/18 at 12:30 Clonidine (Catapres) 0.1 mg BID PO Last administered on 10/16/18 08:46; Admin Dose 0.1 MG; Start 10/07/18 at 22:00; Status Hold Miscellaneous Information 1 ea NOTE XX ; Start 10/07/18 at 21:00 Glucose (Glutose) 15 gm Q15M PRN PO DECREASED GLUCOSE; Start 10/07/18 at 21:00 Glucose (Glutose) 22.5 gm Q15M PRN PO DECREASED GLUCOSE; Start 10/07/18 at 21:00 Dextrose (D50w Syringe) 25 ml Q15M PRN IV DECREASED GLUCOSE Last administered on 10/21/18at 08:09; Admin Dose 25 ML; Start 10/07/18 at 21:00 Dextrose (D50w Syringe) 50 ml Q15M PRN IV DECREASED GLUCOSE; Start 10/07/18 at 21:00 Glucagon (Glucagen) 1 mg Q15M PRN IM DECREASED GLUCOSE; Start 10/07/18 at 21:00 Glucose (Glutose) 15 gm Q15M PRN BUCCAL DECREASED GLUCOSE; Start 10/07/18 at 21:00 Collagenase (Santyl) 1 applic DAILY TOP Last administered on 10/20/18at 09:06; Admin Dose 1 APPLIC; Start 10/09/18 at 19:00 Sodium Hypochlorite (Dakins Diluted (40)) 1 applic DAILY TP Last administered on 10/20/18at 09:07; Admin Dose 1 APPLIC; Start 10/11/18 at 09:00 Quetiapine Fumarate (Seroquel) 25 mg BID@0900,1200 PO Last administered on 10/23/18 12:17; Admin Dose 25 MG; Start 10/11/18 at 12:00 Quetiapine Fumarate (Seroquel) 50 mg HS PO Last administered on 10/22/18at 20:47; Admin Dose 50 MG; Start 10/11/18 at 21:00 Morphine Sulfate (morphine) 2 mg Q4H PRN IV SEVERE PAIN LEVEL 7-10 Last administered on 10/22/18at 21:25; Admin Dose 2 MG; Start 10/15/18 at 21:00 Collagenase (Santyl) 1 applic DAILY TOP Last administered on 10/20/18at 09:06; Admin Dose 1 APPLIC; Start 10/17/18 at 12:00 Lubiprostone (Amitiza) 24 mcg BID PO Last administered on 10/22/18at 20:45; Admin Dose 24 MCG; Start 10/20/18 at 21:00 Ciprofloxacin (Cipro) 500 mg BID@06,18 PO Last administered on 10/23/18at 05:10; Admin Dose 500 MG; Start 10/21/18 at 18:00 Insulin Glargine (Lantus) 8 units DAILY@1200 SC Last administered on 10/23/18at 12:53; Admin Dose 8 UNITS; Start 10/22/18 at 12:00 Lisinopril (Zestril) 20 mg DAILY PO Last administered on 10/21/18at 17:51; Admin Dose 20 MG; Start 10/21/18 at 17:30 Hydralazine HCl (Apresoline) 10 mg Q4H PRN IV >160/95; Start 10/21/18 at 17:30 Insulin Aspart (Novolog Insulin Pen) NOVOLOG *MILD* ALGORITHM WITH MEALS BEDTIME SC ; Start 10/22/18 at 21:00 Diagnostic Test (Pha) (Accu-Chek) 1 ea 02 XX ; Start 10/23/18 at 02:00 Multivitamins Therapeutic (Theragran) 1 tab DAILY PO ; Start 10/23/18 at 09:00 Zinc Sulfate (Zinc Sulfate) 220 mg DAILY PO ; Start 10/23/18 at 09:00; Stop 11/06/18 at 09:00 Ascorbic Acid (Vitamin C) 250 mg DAILY PO ; Start 10/23/18 at 09:00 Collagenase (Santyl) 1 applic DAILY TOP Last administered on 10/23/18at 11:40; Admin Dose 1 APPLIC; Start 10/23/18 at 11:00 Caspofungin 50 mg/ Sodium Chloride 250 ml @ 250 mls/hr Q24H IVPB ; Start 10/24/18 at 14:00 Potassium Chloride/Dextrose/ Sod Cl 1,000 ml @ 70 mls/hr [id number] IV Last administered on 10/23/18at 13:29; Admin Dose 70 MLS/HR; Start 10/23/18 at 13:00 VELIA CASTRO MD Oct 23, 2018 17:34
[2018-10-23 19:30] VITALS: BP 110/54; PULSE 87; RESP 16
[2018-10-23] MEDS ORDERED: IOHEXOL 300MG/ML 150 ML BTL ONE (22:50)
[2018-10-23] MEDS ORDERED: SOD CHLORIDE 0.9% 100 ML ONE (22:50)
[2018-10-24] MEDS: HYDROCODONE/APAP (5/325) TAB PO PRN ×3 (00:08→20:44)
[2018-10-24] MEDS: ACCU-CHEK XX SCH (01:12)
[2018-10-24 02:00] VITALS: BP 118/58; PULSE 79; RESP 15
[2018-10-24] MEDS: D5W-0.45 NACL + KCL 20 MEQ 1,000 ML IV SCH ×2 (02:37→15:53)
[2018-10-24] MEDS: PANTOPRAZOLE (EC) 40 MG TAB PO SCH (05:05)
[2018-10-24] MEDS: CIPROFLOXACIN 500 MG TAB PO SCH ×2 (05:05→17:14)
--- NOTE | 2018-10-24 07:46 | CONS ---
Assessment/Plan Assessment/Plan Assessment/Plan (Daily) Right heel decubitus ulceration stage 4 DM2 with peripheral neuropathy Right foot osteomyelitis Right 5th digit nevus PAD Left lower extremity ulceration Sepsis 2/2 to UTI and early pneumonia Lack of mobility Delirium Plan Hold off wound VAC and recommended dressing changes with santyl and betadine. Suture from biopsy site removed. Continue with offloading of heels. Intra op wound culture showing proteus mirabilis. Intra op path of right 5th digit skin lesion showing compound melanocytic nevus, predominantly intradermal. Melanin incontinence. No evidence of dysplasia or malignancy. Intra op heel bone pathology showed acute osteomyelitis. Continue with abx per ID recommendations. Left lower extremity ulceration being followed by Dr. Garcia. Appreciate vascular surgery input from Dr. Garcia. Consultation Date/Type/Reason Admit Date/Time Oct 07, 2018 at 03:37 Initial Consult Date 10/10/18 Requesting Provider: JAGJIT MONTES MD Date/Time of Note DATE: 10/24/18 TIME: 07:45 24 HR Interval Summary Free Text/Dictation No acute events overnight. Exam/Review of Systems Exam Vitals Vital Signs Date Temp Pulse Resp B/P (MAP) Pulse Ox O2 O2 Flow FiO2 Time Delivery Rate 10/24/18 97.9 79 15 118/58 99 02:00 (78) 10/23/18 Room Air 19:30 10/23/18 2 09:01 Intake and Output 10/23/18 10/23/18 10/24/18 1515:00 23:00 07:00 IntakeIntake Total 720 ml 650 ml 240 ml OutputOutput Total 300 ml BalanceBalance 720 ml 350 ml 240 ml Exam right posterior heel wound base fibrogranular there is a proximal skin tear of the right heel which is showing signs of epithelialization. No maceration noted Mild ecchymosis to periwound region Pain on palpation to heel site Right posterior heel ulcer 2.6 x 2.3 x 2.2cm which probes to bone with fibrogranular wound bed. No purulent drainage appreciated. Results Result Diagram: 10/23/18 0631 10/23/18 0631 Results 24hrs Laboratory Tests Test 10/23/18 08:08 10/23/18 12:19 10/23/18 17:32 10/23/18 20:25 Bedside Glucose 78 77 102 167 Medications Medication Current Medications Allopurinol (Zyloprim) 100 mg BID PO Last administered on 10/23/18 20:24; Admin Dose 100 MG; Start 10/07/18 at 21:00 Aspirin (Halfprin) 81 mg DAILY PO Last administered on 10/08/18 08:14; Admin Dose 81 MG; Start 10/08/18 at 09:00; Status Hold Docusate Sodium (Colace) 100 mg TID PO Last administered on 10/23/18 20:24; Admin Dose 100 MG; Start 10/07/18 at 21:00 Pantoprazole (Protonix Tab) 40 mg DAILY@06 PO Last administered on 10/24/18 05:05; Admin Dose 40 MG; Start 10/08/18 at 06:00 IV Flush (NS 3 ml) 3 ml PER PROTOCOL IV ; Start 10/07/18 at 12:30 Ondansetron HCl (Zofran Inj) 4 mg Q6H PRN IV NAUSEA/VOMITING; Start 10/07/18 at 12:30 Acetaminophen (Tylenol Tab) 650 mg Q6H PRN PO .PAIN 1-3 OR TEMP Last administered on 10/16/18at 18:56; Admin Dose 650 MG; Start 10/07/18 at 12:30 Acetaminophen/ Hydrocodone Bitart ([place] (5/325)) 1 tab Q6H PRN PO .PAIN 4-6 Last administered on 10/24/18at 00:08; Admin Dose 1 TAB; Start 10/07/18 at 12:30 Clonidine (Catapres) 0.1 mg BID PO Last administered on 10/16/18 08:46; Admin Dose 0.1 MG; Start 10/07/18 at 22:00; Status Hold Miscellaneous Information 1 ea NOTE XX ; Start 10/07/18 at 21:00 Glucose (Glutose) 15 gm Q15M PRN PO DECREASED GLUCOSE; Start 10/07/18 at 21:00 Glucose (Glutose) 22.5 gm Q15M PRN PO DECREASED GLUCOSE; Start 10/07/18 at 21:00 Dextrose (D50w Syringe) 25 ml Q15M PRN IV DECREASED GLUCOSE Last administered on 10/21/18 08:09; Admin Dose 25 ML; Start 10/07/18 at 21:00 Dextrose (D50w Syringe) 50 ml Q15M PRN IV DECREASED GLUCOSE; Start 10/07/18 at 21:00 Glucagon (Glucagen) 1 mg Q15M PRN IM DECREASED GLUCOSE; Start 10/07/18 at 21:00 Glucose (Glutose) 15 gm Q15M PRN BUCCAL DECREASED GLUCOSE; Start 10/07/18 at 21:00 Collagenase (Santyl) 1 applic DAILY TOP Last administered on 10/20/18 09:06; Admin Dose 1 APPLIC; Start 10/09/18 at 19:00 Sodium Hypochlorite (Dakins Diluted (40)) 1 applic DAILY TP Last administered on 10/20/18 09:07; Admin Dose 1 APPLIC; Start 10/11/18 at 09:00 Quetiapine Fumarate (Seroquel) 25 mg BID@0900,1200 PO Last administered on 10/23/18 12:17; Admin Dose 25 MG; Start 10/11/18 at 12:00 Quetiapine Fumarate (Seroquel) 50 mg HS PO Last administered on 10/23/18 20:24; Admin Dose 50 MG; Start 10/11/18 at 21:00 Morphine Sulfate (morphine) 2 mg Q4H PRN IV SEVERE PAIN LEVEL 7-10 Last administered on 10/22/18 21:25; Admin Dose 2 MG; Start 10/15/18 at 21:00 Collagenase (Santyl) 1 applic DAILY TOP Last administered on 10/20/18 09:06; Admin Dose 1 APPLIC; Start 10/17/18 at 12:00 Lubiprostone (Amitiza) 24 mcg BID PO Last administered on 10/23/18 20:23; Admin Dose 24 MCG; Start 10/20/18 at 21:00 Ciprofloxacin (Cipro) 500 mg BID@06,18 PO Last administered on 10/24/18 05:05; Admin Dose 500 MG; Start 10/21/18 at 18:00 Insulin Glargine (Lantus) 8 units DAILY@1200 SC Last administered on 10/23/18 12:53; Admin Dose 8 UNITS; Start 10/22/18 at 12:00 Lisinopril (Zestril) 20 mg DAILY PO Last administered on 10/21/18 17:51; Admin Dose 20 MG; Start 10/21/18 at 17:30 Hydralazine HCl (Apresoline) 10 mg Q4H PRN IV >160/95; Start 10/21/18 at 17:30 Insulin Aspart (Novolog Insulin Pen) NOVOLOG *MILD* ALGORITHM WITH MEALS BEDTIME SC ; Start 10/22/18 at 21:00 Diagnostic Test (Pha) (Accu-Chek) 1 ea 02 XX ; Start 10/23/18 at 02:00 Multivitamins Therapeutic (Theragran) 1 tab DAILY PO ; Start 10/23/18 at 09:00 Zinc Sulfate (Zinc Sulfate) 220 mg DAILY PO ; Start 10/23/18 at 09:00; Stop 11/06/18 at 09:00 Ascorbic Acid (Vitamin C) 250 mg DAILY PO ; Start 10/23/18 at 09:00 Collagenase (Santyl) 1 applic DAILY TOP Last administered on 10/23/18at 11:40; Admin Dose 1 APPLIC; Start 10/23/18 at 11:00 Caspofungin 50 mg/ Sodium Chloride 250 ml @ 250 mls/hr Q24H IVPB ; Start 10/24/18 at 14:00 Potassium Chloride/Dextrose/ Sod Cl 1,000 ml @ 70 mls/hr [id number] IV Last administered on 10/23/18at 13:29; Admin Dose 70 MLS/HR; Start 10/23/18 at 13:00 NANCY DIANE DPM Oct 24, 2018 07:46
[2018-10-24 08:00] VITALS: BP 101/52; PULSE 78; RESP 20
[2018-10-24] MEDS: INSULIN ASPART [NOVOLOG] 3 ML PEN SC SCH ×4 (08:00→20:46)
[2018-10-24] MEDS: ZINC SULFATE 220 MG CAP PO SCH (08:14)
[2018-10-24] MEDS: LUBIPROSTONE 24 MCG CAP PO SCH ×2 (08:14→20:44)
[2018-10-24] MEDS: MULTIVITAMINS THERAPEUTIC TAB PO SCH (08:15)
[2018-10-24] MEDS: ASCORBIC ACID 250 MG TAB PO SCH (08:15)
[2018-10-24] MEDS: ALLOPURINOL 100 MG TAB PO SCH ×2 (08:15→20:44)
[2018-10-24] MEDS: DOCUSATE SODIUM 100 MG CAP PO SCH ×3 (08:15→20:44)
[2018-10-24] MEDS: LISINOPRIL 20 MG TAB PO SCH (08:16)
--- NOTE | 2018-10-24 08:40 | CONS ---
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 From there we will decide on whether or not he needs adjuvant chemotherapy #Recurrent Renal Cancer -pt will need to be referred to urology at a tertiary care center for surgical resection of this mass. This appears #Diabetic foot -Right heel decubitus ulceration stage 4 -Right foot osteomyelitis -management per vascular surgery and podiatry -continue antibiotics #Sepsis 2/2 to UTI and early pneumonia -continue antibiotics Consultation Date/Type/Reason Admit Date/Time Oct 07, 2018 at 03:37 Date of Consultation: Oct 24, 2018 Type of Consult oncology Reason for Consultation colon cancer Requesting Provider: JAGJIT MONTES MD Date/Time of Note DATE: 10/24/18 TIME: 08:31 Hx of Present Illness 82-year-old female with multiple medical problems including history of coronary artery disease, status post CABG and atrial fibrillation and Renal Cell c arcinoma who initially presented to ED 10/07/18 with decreased appetite, cough and a lower back pain. PT was initially diagnosed with UTI and was started on broad spectrum antibiotics. During this hospitalization pt has been noted be be anemic. 10/13/18 Pt underwent a Colonoscopy which revealed Well-differentiated carcinoma arising from tubular adenoma high grade dysplasia int eh transverse colon. 10/23/18 Ct A/P revealed that the patient is status post partial left nephrectomy. IT also revealed a Lobulated enhancing 4.6 cm mass is seen arising from the lower pole of the left kidney in the surgical bed, compatible with recurrent renal malignancy. We have been consulted for further workup of these presumed multiple malignancies. Constitutional: no complaints Eyes: no complaints ENT: no complaints Respiratory: no complaints Cardiovascular: no complaints Gastrointestinal: no complaints Genitourinary: no complaints Musculoskeletal: other (pain at right posterior heel) Skin: skin lesions Endocrine: no complaints Lymphatic: no complaints Past Medical History Medical History: congestive heart failure, coronary artery disease, diabetes, hypertension, other (Atrial fibrillation) Home Meds Active Scripts [Vancomycin Iv Per Pharmacy] 1 EA EACH No Conflict Check, 0 EA XX .PER PROTOCOL Prov:NUBIA TEJEDA MD 08/04/18 Reported Medications Clonidine Hcl* (Clonidine Hcl*) 0.1 Mg Tab, 0.1 MG PO Q8, TAB 06/25/18 Furosemide* (Furosemide*) 20 Mg Tablet, 20 MG PO DAILY 06/25/18 Carvedilol* (Carvedilol*) 3.125 Mg Tablet, 3.125 MG PO BID for 30 Days, #60 06/25/18 Amiodarone Hcl* (Amiodarone Hcl*) 200 Mg Tablet, 200 MG PO BID, #60 TAB 06/17/18 Dulaglutide (Trulicity) 0.75 Mg/0.5 Ml Pen.injctr, 1.75 MG SQ WEEKLY 06/11/18 Insulin Glargine,Hum.rec.anlog (Basaglar Kwikpen U-100) 100 Unit/1 Ml Insuln.pen, 20 UNIT SC DAILY, EA 06/11/18 Ferrous Sulfate (Ferrous Sulfate) 325 Mg Tablet.dr, 325 MG PO DAILY 06/11/18 Aspirin* (Aspirin* EC) 81 Mg Tablet.dr, 81 MG PO DAILY, TAB 06/11/18 Empagliflozin (Jardiance) 10 Mg Tablet, 10 MG PO DAILY, TAB 06/11/18 Esomeprazole Mag Trihydrate (Nexium) 20 Mg Capsule.dr, 20 MG PO AC BREAKFAST, #30 CAP 06/11/18 Docusate Sodium* (Colace*) 100 Mg Capsule, 100 MG PO TID, #60 CAP 06/11/18 Allopurinol* (Allopurinol*) 100 Mg Tablet, 100 MG PO BID, TAB 06/11/18 Medications Current Medications Allopurinol (Zyloprim) 100 mg BID PO Last administered on 10/24/18at 08:15; Adm in Dose 100 MG; Start 10/07/18 at 21:00 Aspirin (Halfprin) 81 mg DAILY PO Last administered on 10/08/18at 08:14; Admin Dose 81 MG; Start 10/08/18 at 09:00; Status Hold Docusate Sodium (Colace) 100 mg TID PO Last administered on 10/24/18at 08:15; Admin Dose 100 MG; Start 10/07/18 at 21:00 Pantoprazole (Protonix Tab) 40 mg DAILY@06 PO Last administered on 10/24/18at 05:05; Admin Dose 40 MG; Start 10/08/18 at 06:00 IV Flush (NS 3 ml) 3 ml PER PROTOCOL IV ; Start 10/07/18 at 12:30 Ondansetron HCl (Zofran Inj) 4 mg Q6H PRN IV NAUSEA/VOMITING; Start 10/07/18 at 12:30 Acetaminophen (Tylenol Tab) 650 mg Q6H PRN PO .PAIN 1-3 OR TEMP Last administered on 10/16/18at 18:56; Admin Dose 650 MG; Start 10/07/18 at 12:30 Acetaminophen/ Hydrocodone Bitart ([place] (5/325)) 1 tab Q6H PRN PO .PAIN 4-6 Last administered on 10/24/18 08:15; Admin Dose 1 TAB; Start 10/07/18 at 12:30 Clonidine (Catapres) 0.1 mg BID PO Last administered on 10/16/18 08:46; Admin Dose 0.1 MG; Start 10/07/18 at 22:00; Status Hold Miscellaneous Information 1 ea NOTE XX ; Start 10/07/18 at 21:00 Glucose (Glutose) 15 gm Q15M PRN PO DECREASED GLUCOSE; Start 10/07/18 at 21:00 Glucose (Glutose) 22.5 gm Q15M PRN PO DECREASED GLUCOSE; Start 10/07/18 at 21:00 Dextrose (D50w Syringe) 25 ml Q15M PRN IV DECREASED GLUCOSE Last administered on 10/21/18at 08:09; Admin Dose 25 ML; Start 10/07/18 at 21:00 Dextrose (D50w Syringe) 50 ml Q15M PRN IV DECREASED GLUCOSE; Start 10/07/18 at 21:00 Glucagon (Glucagen) 1 mg Q15M PRN IM DECREASED GLUCOSE; Start 10/07/18 at 21:00 Glucose (Glutose) 15 gm Q15M PRN BUCCAL DECREASED GLUCOSE; Start 10/07/18 at 21:00 Collagenase (Santyl) 1 applic DAILY TOP Last administered on 10/20/18at 09:06; Admin Dose 1 APPLIC; Start 10/09/18 at 19:00 Sodium Hypochlorite (Dakins Diluted (40)) 1 applic DAILY TP Last administered on 10/20/18at 09:07; Admin Dose 1 APPLIC; Start 10/11/18 at 09:00 Quetiapine Fumarate (Seroquel) 25 mg BID@0900,1200 PO Last administered on 10/23/18 12:17; Admin Dose 25 MG; Start 10/11/18 at 12:00 Quetiapine Fumarate (Seroquel) 50 mg HS PO Last administered on 10/23/18 20:24; Admin Dose 50 MG; Start 10/11/18 at 21:00 Morphine Sulfate (morphine) 2 mg Q4H PRN IV SEVERE PAIN LEVEL 7-10 Last administered on 10/22/18 21:25; Admin Dose 2 MG; Start 10/15/18 at 21:00 Collagenase (Santyl) 1 applic DAILY TOP Last administered on 10/20/18 09:06; Admin Dose 1 APPLIC; Start 10/17/18 at 12:00 Lubiprostone (Amitiza) 24 mcg BID PO Last administered on 10/24/18 08:14; Admin Dose 24 MCG; Start 10/20/18 at 21:00 Ciprofloxacin (Cipro) 500 mg BID@06,18 PO Last administered on 10/24/18 05:05; Admin Dose 500 MG; Start 10/21/18 at 18:00 Insulin Glargine (Lantus) 8 units DAILY@1200 SC Last administered on 10/23/18 12:53; Admin Dose 8 UNITS; Start 10/22/18 at 12:00 Lisinopril (Zestril) 20 mg DAILY PO Last administered on 10/24/18 08:16; Admin Dose 20 MG; Start 10/21/18 at 17:30 Hydralazine HCl (Apresoline) 10 mg Q4H PRN IV >160/95; Start 10/21/18 at 17:30 Insulin Aspart (Novolog Insulin Pen) NOVOLOG *MILD* ALGORITHM WITH MEALS BEDTIME SC ; Start 10/22/18 at 21:00 Diagnostic Test (Pha) (Accu-Chek) 1 ea 02 XX ; Start 10/23/18 at 02:00 Multivitamins Therapeutic (Theragran) 1 tab DAILY PO Last administered on 10/24/18 08:15; Admin Dose 1 TAB; Start 10/23/18 at 09:00 Zinc Sulfate (Zinc Sulfate) 220 mg DAILY PO Last administered on 10/24/18 08:14; Admin Dose 220 MG; Start 10/23/18 at 09:00; Stop 11/06/18 at 09:00 Ascorbic Acid (Vitamin C) 250 mg DAILY PO Last administered on 10/24/18at 08:15; Admin Dose 250 MG; Start 10/23/18 at 09:00 Collagenase (Santyl) 1 applic DAILY TOP Last administered on 10/23/18at 11:40; Admin Dose 1 APPLIC; Start 10/23/18 at 11:00 Caspofungin 50 mg/ Sodium Chloride 250 ml @ 250 mls/hr Q24H IVPB ; Start 10/24/18 at 14:00 Potassium Chloride/Dextrose/ Sod Cl 1,000 ml @ 70 mls/hr [id number] IV Last administered on 10/23/18at 13:29; Admin Dose 70 MLS/HR; Start 10/23/18 at 13:00 Allergies: Coded Allergies: No Known Allergies (Verified Allergy, Unknown, 08/01/18) Past Surgical History Past Surgical Hx: coronary bypass surgery, other (Status post nephrectomy for renal carcinoma 8 years ago, status post thrombectomy of left common femoral artery) Family History Significant Family History: no pertinent family hx Social History Alcohol Use: none Smoking Status: Never smoker Drug Use: none Exam/Review of Systems Exam Vitals Vital Signs Date Temp Pulse Resp B/P (MAP) Pulse Ox O2 O2 Flow FiO2 Time Delivery Rate 10/24/18 98.6 78 20 101/52 96 08:00 (68) 10/23/18 Room Air 19:30 10/23/18 2 09:01 Intake and Output 10/23/18 10/23/18 10/24/18 1515:00 23:00 07:00 IntakeIntake Total 720 ml 650 ml 240 ml OutputOutput Total 300 ml BalanceBalance 720 ml 350 ml 240 ml Constitutional: alert Psych: no complaints Head: normocephalic Eyes: nl conjunctiva ENMT: nl external ears & nose Neck: supple Respiratory: clear to auscultation Cardiovascular: regular rate and rhythm Gastrointestinal: soft Musculoskeletal: nl extremities to inspection Extremities: other (right posteior heel ulcer) Results Result Diagram: 10/23/18 0631 10/23/18 0631 Results 24hrs Laboratory Tests Test 10/23/18 12:19 10/23/18 17:32 10/23/18 20:25 10/24/18 07:50 Bedside Glucose 77 102 167 122 Medications Medication Current Medications Allopurinol (Zyloprim) 100 mg BID PO Last administered on 10/24/18 08:15; Ad min Dose 100 MG; Start 10/07/18 at 21:00 Aspirin (Halfprin) 81 mg DAILY PO Last administered on 10/08/18 08:14; Admin Dose 81 MG; Start 10/08/18 at 09:00; Status Hold Docusate Sodium (Colace) 100 mg TID PO Last administered on 10/24/18 08:15; Admin Dose 100 MG; Start 10/07/18 at 21:00 Pantoprazole (Protonix Tab) 40 mg DAILY@06 PO Last administered on 10/24/18 05:05; Admin Dose 40 MG; Start 10/08/18 at 06:00 IV Flush (NS 3 ml) 3 ml PER PROTOCOL IV ; Start 10/07/18 at 12:30 Ondansetron HCl (Zofran Inj) 4 mg Q6H PRN IV NAUSEA/VOMITING; Start 10/07/18 at 12:30 Acetaminophen (Tylenol Tab) 650 mg Q6H PRN PO .PAIN 1-3 OR TEMP Last administered on 10/16/18at 18:56; Admin Dose 650 MG; Start 10/07/18 at 12:30 Acetaminophen/ Hydrocodone Bitart ([place] (5/325)) 1 tab Q6H PRN PO .PAIN 4-6 Last administered on 10/24/18 08:15; Admin Dose 1 TAB; Start 10/07/18 at 12:30 Clonidine (Catapres) 0.1 mg BID PO Last administered on 10/16/18at 08:46; Admin Dose 0.1 MG; Start 10/07/18 at 22:00; Status Hold Miscellaneous Information 1 ea NOTE XX ; Start 10/07/18 at 21:00 Glucose (Glutose) 15 gm Q15M PRN PO DECREASED GLUCOSE; Start 10/07/18 at 21:00 Glucose (Glutose) 22.5 gm Q15M PRN PO DECREASED GLUCOSE; Start 10/07/18 at 21:00 Dextrose (D50w Syringe) 25 ml Q15M PRN IV DECREASED GLUCOSE Last administered on 10/21/18 08:09; Admin Dose 25 ML; Start 10/07/18 at 21:00 Dextrose (D50w Syringe) 50 ml Q15M PRN IV DECREASED GLUCOSE; Start 10/07/18 at 21:00 Glucagon (Glucagen) 1 mg Q15M PRN IM DECREASED GLUCOSE; Start 10/07/18 at 21:00 Glucose (Glutose) 15 gm Q15M PRN BUCCAL DECREASED GLUCOSE; Start 10/07/18 at 21:00 Collagenase (Santyl) 1 applic DAILY TOP Last administered on 10/20/18 09:06; Admin Dose 1 APPLIC; Start 10/09/18 at 19:00 Sodium Hypochlorite (Dakins Diluted ()) 1 applic DAILY TP Last administered on 10/20/18 09:07; Admin Dose 1 APPLIC; Start 10/11/18 at 09:00 Quetiapine Fumarate (Seroquel) 25 mg BID@0900,1200 PO Last administered on 10/23/18 12:17; Admin Dose 25 MG; Start 10/11/18 at 12:00 Quetiapine Fumarate (Seroquel) 50 mg HS PO Last administered on 10/23/18 20:24; Admin Dose 50 MG; Start 10/11/18 at 21:00 Morphine Sulfate (morphine) 2 mg Q4H PRN IV SEVERE PAIN LEVEL 7-10 Last administered on 10/22/18 21:25; Admin Dose 2 MG; Start 10/15/18 at 21:00 Collagenase (Santyl) 1 applic DAILY TOP Last administered on 10/20/18 09:06; Admin Dose 1 APPLIC; Start 10/17/18 at 12:00 Lubiprostone (Amitiza) 24 mcg BID PO Last administered on 10/24/18 08:14; Admin Dose 24 MCG; Start 10/20/18 at 21:00 Ciprofloxacin (Cipro) 500 mg BID@06,18 PO Last administered on 10/24/18 05:05; Admin Dose 500 MG; Start 10/21/18 at 18:00 Insulin Glargine (Lantus) 8 units DAILY@1200 SC Last administered on 10/23/18 12:53; Admin Dose 8 UNITS; Start 10/22/18 at 12:00 Lisinopril (Zestril) 20 mg DAILY PO Last administered on 10/24/18 08:16; Admin Dose 20 MG; Start 10/21/18 at 17:30 Hydralazine HCl (Apresoline) 10 mg Q4H PRN IV >160/95; Start 10/21/18 at 17:30 Insulin Aspart (Novolog Insulin Pen) NOVOLOG *MILD* ALGORITHM WITH MEALS BEDTIME SC ; Start 10/22/18 at 21:00 Diagnostic Test (Pha) (Accu-Chek) 1 ea 02 XX ; Start 10/23/18 at 02:00 Multivitamins Therapeutic (Theragran) 1 tab DAILY PO Last administered on 10/24/18at 08:15; Admin Dose 1 TAB; Start 10/23/18 at 09:00 Zinc Sulfate (Zinc Sulfate) 220 mg DAILY PO Last administered on 10/24/18at 08:14; Admin Dose 220 MG; Start 10/23/18 at 09:00; Stop 11/06/18 at 09:00 Ascorbic Acid (Vitamin C) 250 mg DAILY PO Last administered on 10/24/18at 08:15; Admin Dose 250 MG; Start 10/23/18 at 09:00 Collagenase (Santyl) 1 applic DAILY TOP Last administered on 10/23/18at 11:40; Admin Dose 1 APPLIC; Start 10/23/18 at 11:00 Caspofungin 50 mg/ Sodium Chloride 250 ml @ 250 mls/hr Q24H IVPB ; Start 10/24/18 at 14:00 Potassium Chloride/Dextrose/ Sod Cl 1,000 ml @ 70 mls/hr [id number] IV Last administered on 10/23/18at 13:29; Admin Dose 70 MLS/HR; Start 10/23/18 at 13:00 MAGI RAMAN M.D. Oct 24, 2018 08:40
--- NOTE | 2018-10-24 08:46 | CONS ---
Assessment/Plan Assessment/Plan Assessment/Plan (Daily) 1. acute hyperkalemia due to BRANDON resolved 2 .acute kidney injury on CKD III due to ATN from sepsis + prerenal azotemia- Improving 3. Sepsis due to UTI and PNA 4. acute UTI 5. H/o partial nephrectomy possibly due to RCC as per family 6. H/o CAD s/p CABG , Cardiomyopathy with EF 50%, Chronic Systolic HF, 7. H/O HTN 8. h/o DM II 9. Paroxysmal atrial fibrillation 10. acute encephalpahty possibly due to uremic and metabolic encephalopathy 11. 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 H/o HTN 13. H/o DM II 14. h/O paroxysmal atrial fibrillation Plan: BUN/Cr 15/0.95, Othe electrolytes stable- no labs today to review yet , ID recommended Cetriaxone + vancomycin till 11/18/18 for OM Renal US showed No hydronephrosis. No nephrolithiasis.- 3.1 x 2 x 2.1 centimeter hypoechoic lesion arising from the lower pole of the left kidney. Follow-up to exclude neoplasm. There is echogenic material layering within the dependent portion of the bladder. Follow up to exclude infectious, inflammatory, or neoplastic process.- Atrophic left kidney- Family refused MRI abdomen ok to d/c to SNF as per renal point of view will follow up Consultation Date/Type/Reason Admit Date/Time Oct 07, 2018 at 03:37 Initial Consult Date 10/07/18 Type of Consult NEPHROLOGY Requesting Provider: JAGJIT MONTES MD Date/Time of Note DATE: 10/24/18 TIME: 08:45 Exam/Review of Systems Exam Vitals Vital Signs Date Temp Pulse Resp B/P (MAP) Pulse Ox O2 O2 Flow FiO2 Time Delivery Rate 10/24/18 98.6 78 20 101/52 96 08:00 (68) 10/23/18 Room Air 19:30 10/23/18 2 09:01 Intake and Output 10/23/18 10/23/18 10/24/18 1515:00 23:00 07:00 IntakeIntake Total 720 ml 650 ml 240 ml OutputOutput Total 300 ml BalanceBalance 720 ml 350 ml 240 ml Exam Constitutional: alert, oriented Respiratory: diminished breath sounds Cardiovascular: irregular rhythm Gastrointestinal: soft, non-tender Genitourinary - Male: other (Incontinent of urine) Musculoskeletal: nl extremities to inspection Extremities: normal pulses Neurological: nl mental status Skin: other (Right foot wound with dressing Results Result Diagram: 10/23/1863010/23/18630 Results 24hrs Laboratory Tests Test 10/23/18 12:19 10/23/18 17:32 10/23/18 20:25 10/24/18 07:50 Bedside Glucose 77 102 167 122 Medications Medication Current Medications Allopurinol (Zyloprim) 100 mg BID PO Last administered on 10/24/18 08:15; Admin Dose 100 MG; Start 10/07/18 at 21:00 Aspirin (Halfprin) 81 mg DAILY PO Last administered on 10/08/18 08:14; Admin Dose 81 MG; Start 10/08/18 at 09:00; Status Hold Docusate Sodium (Colace) 100 mg TID PO Last administered on 10/24/18 08:15; Admin Dose 100 MG; Start 10/07/18 at 21:00 Pantoprazole (Protonix Tab) 40 mg DAILY@06 PO Last administered on 10/24/18at 05:05; Admin Dose 40 MG; Start 10/08/18 at 06:00 IV Flush (NS 3 ml) 3 ml PER PROTOCOL IV ; Start 10/07/18 at 12:30 Ondansetron HCl (Zofran Inj) 4 mg Q6H PRN IV NAUSEA/VOMITING; Start 10/07/18 at 12:30 Acetaminophen (Tylenol Tab) 650 mg Q6H PRN PO .PAIN 1-3 OR TEMP Last administered on 10/16/18at 18:56; Admin Dose 650 MG; Start 10/07/18 at 12:30 Acetaminophen/ Hydrocodone Bitart ([place] (5/325)) 1 tab Q6H PRN PO .PAIN 4-6 Last administered on 10/24/18 08:15; Admin Dose 1 TAB; Start 10/07/18 at 12:30 Clonidine (Catapres) 0.1 mg BID PO Last administered on 10/16/18at 08:46; Admin Dose 0.1 MG; Start 10/07/18 at 22:00; Status Hold Miscellaneous Information 1 ea NOTE XX ; Start 10/07/18 at 21:00 Glucose (Glutose) 15 gm Q15M PRN PO DECREASED GLUCOSE; Start 10/07/18 at 21:00 Glucose (Glutose) 22.5 gm Q15M PRN PO DECREASED GLUCOSE; Start 10/07/18 at 21:00 Dextrose (D50w Syringe) 25 ml Q15M PRN IV DECREASED GLUCOSE Last administered on 10/21/18 08:09; Admin Dose 25 ML; Start 10/07/18 at 21:00 Dextrose (D50w Syringe) 50 ml Q15M PRN IV DECREASED GLUCOSE; Start 10/07/18 at 21:00 Glucagon (Glucagen) 1 mg Q15M PRN IM DECREASED GLUCOSE; Start 10/07/18 at 21:00 Glucose (Glutose) 15 gm Q15M PRN BUCCAL DECREASED GLUCOSE; Start 10/07/18 at 21:00 Collagenase (Santyl) 1 applic DAILY TOP Last administered on 10/20/18 09:06; Admin Dose 1 APPLIC; Start 10/09/18 at 19:00 Sodium Hypochlorite (Dakins Diluted (40)) 1 applic DAILY TP Last administered on 10/20/18 09:07; Admin Dose 1 APPLIC; Start 10/11/18 at 09:00 Quetiapine Fumarate (Seroquel) 25 mg BID@0900,1200 PO Last administered on 10/23/18 12:17; Admin Dose 25 MG; Start 10/11/18 at 12:00 Quetiapine Fumarate (Seroquel) 50 mg HS PO Last administered on 10/23/18 20:24; Admin Dose 50 MG; Start 10/11/18 at 21:00 Morphine Sulfate (morphine) 2 mg Q4H PRN IV SEVERE PAIN LEVEL 7-10 Last administered on 10/22/18 21:25; Admin Dose 2 MG; Start 10/15/18 at 21:00 Collagenase (Santyl) 1 applic DAILY TOP Last administered on 10/20/18 09:06; Admin Dose 1 APPLIC; Start 10/17/18 at 12:00 Lubiprostone (Amitiza) 24 mcg BID PO Last administered on 10/24/18 08:14; Admin Dose 24 MCG; Start 10/20/18 at 21:00 Ciprofloxacin (Cipro) 500 mg BID@06,18 PO Last administered on 10/24/18 05:05; Admin Dose 500 MG; Start 10/21/18 at 18:00 Insulin Glargine (Lantus) 8 units DAILY@1200 SC Last administered on 10/23/18at 12:53; Admin Dose 8 UNITS; Start 10/22/18 at 12:00 Lisinopril (Zestril) 20 mg DAILY PO Last administered on 10/24/18 08:16; Admin Dose 20 MG; Start 10/21/18 at 17:30 Hydralazine HCl (Apresoline) 10 mg Q4H PRN IV >160/95; Start 10/21/18 at 17:30 Insulin Aspart (Novolog Insulin Pen) NOVOLOG *MILD* ALGORITHM WITH MEALS BEDTIME SC ; Start 10/22/18 at 21:00 Diagnostic Test (Pha) (Accu-Chek) 1 ea 02 XX ; Start 10/23/18 at 02:00 Multivitamins Therapeutic (Theragran) 1 tab DAILY PO Last administered on 10/24/18 08:15; Admin Dose 1 TAB; Start 10/23/18 at 09:00 Zinc Sulfate (Zinc Sulfate) 220 mg DAILY PO Last administered on 10/24/18 08:14; Admin Dose 220 MG; Start 10/23/18 at 09:00; Stop 11/06/18 at 09:00 Ascorbic Acid (Vitamin C) 250 mg DAILY PO Last administered on 10/24/18 08:15; Admin Dose 250 MG; Start 10/23/18 at 09:00 Collagenase (Santyl) 1 applic DAILY TOP Last administered on 10/23/18at 11:40; Admin Dose 1 APPLIC; Start 10/23/18 at 11:00 Caspofungin 50 mg/ Sodium Chloride 250 ml @ 250 mls/hr Q24H IVPB ; Start 10/24/18 at 14:00 Potassium Chloride/Dextrose/ Sod Cl 1,000 ml @ 70 mls/hr [id number] IV Last administered on 10/23/18at 13:29; Admin Dose 70 MLS/HR; Start 10/23/18 at 13:00 EVA TREJO MD Oct 24, 2018 08:46
[2018-10-24] MEDS: QUETIAPINE 25 MG TAB PO SCH ×3 (09:56→20:44)
[2018-10-24] MEDS: COLLAGENASE 5 GM (UD JAR) TOP SCH ×3 (09:57→09:58)
--- NOTE | 2018-10-24 12:01 | CONS ---
Assessment/Plan Assessment/Plan Assessment/Plan (Daily) Hospital Course (Demo Recall) 82 yo female with hl/o anemia 1. Urinary tract infection. 2. Sepsis. -gram positive rods in foot wound cx. -pos urine cx 3. Status post coronary artery bypass graft. 4. Peripheral vascular disease. 5. Atrial fibrillation. 6. Status post surgery for renal cell carcinoma 8 years ago. 7. Diabetes. 8. Hypertension. 9. Severe anemia. -IV iron 10. Transaminitis -elevated ALT/AST -improving -CBD 7mm, t bili wnl. 11. Elevated CEA: 24.1 12. Chronic gastritis 13. S/P EGD 10/13 14. Fatty liver with possible hepatocellular disease noted on US 15. 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 Charisse ink w as injected. Patient definitely needs surgery Case discussed with the surgeon Consultation Date/Type/Reason Admit Date/Time Oct 07, 2018 at 03:37 Initial Consult Date 10/07/18 Requesting Provider: JAGJIT MONTES MD Date/Time of Note DATE: 10/24/18 TIME: 12:00 24 HR Interval Summary Constitutional: no complaints, improved Exam/Review of Systems Exam Vitals Vital Signs Date Temp Pulse Resp B/P (MAP) Pulse Ox O2 O2 Flow FiO2 Time Delivery Rate 10/24/18 Nasal 2.0 10:25 Cannula 10/24/18 98.6 78 20 101/52 96 08:00 (68) Intake and Output 10/23/18 10/23/18 10/24/18 1515:00 23:00 07:00 IntakeIntake Total 720 ml 650 ml 240 ml OutputOutput Total 300 ml BalanceBalance 720 ml 350 ml 240 ml Constitutional: alert, oriented, well developed Psych: no complaints, nl mood/affect Head: normocephalic, atraumatic Eyes: nl conjunctiva, EOMI, nl lids, nl sclera, PERRL ENMT: nl external ears & nose, nl lips & teeth, nl nasal mucosa & septum Neck: supple, non-tender Respiratory: clear to auscultation, normal air movement Cardiovascular: regular rate and rhythm, nl pulses Gastrointestinal: soft, nl liver, spleen, non-tender Musculoskeletal: nl extremities to inspection, nl gait and stance Extremities: normal pulses Neurological: MEDICAL OFFICE ASST II-XII intact, nl mental status, nl speech, nl strength Skin: nl turgor; No rash or lesions Lymph: nl lymph nodes Results Result Diagram: 10/23/1863010/23/18630 Results 24hrs Laboratory Tests Test 10/23/18 12:19 10/23/18 17:32 10/23/18 20:25 10/24/18 07:50 Bedside Glucose 77 102 167 122 Medications Medication Current Medications Allopurinol (Zyloprim) 100 mg BID PO Last administered on 10/24/18 08:15; Admin Dose 100 MG; Start 10/07/18 at 21:00 Aspirin (Halfprin) 81 mg DAILY PO Last administered on 10/08/18 08:14; Admin Dose 81 MG; Start 10/08/18 at 09:00; Status Hold Docusate Sodium (Colace) 100 mg TID PO Last administered on 10/24/18 08:15; Admin Dose 100 MG; Start 10/07/18 at 21:00 Pantoprazole (Protonix Tab) 40 mg DAILY@06 PO Last administered on 10/24/18at 05:05; Admin Dose 40 MG; Start 10/08/18 at 06:00 IV Flush (NS 3 ml) 3 ml PER PROTOCOL IV ; Start 10/07/18 at 12:30 Ondansetron HCl (Zofran Inj) 4 mg Q6H PRN IV NAUSEA/VOMITING; Start 10/07/18 at 12:30 Acetaminophen (Tylenol Tab) 650 mg Q6H PRN PO .PAIN 1-3 OR TEMP Last administered on 10/16/18at 18:56; Admin Dose 650 MG; Start 10/07/18 at 12:30 Acetaminophen/ Hydrocodone Bitart ([place] (5/325)) 1 tab Q6H PRN PO .PAIN 4-6 Last administered on 10/24/18 08:15; Admin Dose 1 TAB; Start 10/07/18 at 12:30 Clonidine (Catapres) 0.1 mg BID PO Last administered on 10/16/18at 08:46; Admin Dose 0.1 MG; Start 10/07/18 at 22:00; Status Hold Miscellaneous Information 1 ea NOTE XX ; Start 10/07/18 at 21:00 Glucose (Glutose) 15 gm Q15M PRN PO DECREASED GLUCOSE; Start 10/07/18 at 21:00 Glucose (Glutose) 22.5 gm Q15M PRN PO DECREASED GLUCOSE; Start 10/07/18 at 21:00 Dextrose (D50w Syringe) 25 ml Q15M PRN IV DECREASED GLUCOSE Last administered on 10/21/18 08:09; Admin Dose 25 ML; Start 10/07/18 at 21:00 Dextrose (D50w Syringe) 50 ml Q15M PRN IV DECREASED GLUCOSE; Start 10/07/18 at 21:00 Glucagon (Glucagen) 1 mg Q15M PRN IM DECREASED GLUCOSE; Start 10/07/18 at 21:00 Glucose (Glutose) 15 gm Q15M PRN BUCCAL DECREASED GLUCOSE; Start 10/07/18 at 21:00 Collagenase (Santyl) 1 applic DAILY TOP Last administered on 10/24/18 09:57; Admin Dose 1 APPLIC; Start 10/09/18 at 19:00 Sodium Hypochlorite (Dakins Diluted (40)) 1 applic DAILY TP Last administered on 10/20/18 09:07; Admin Dose 1 APPLIC; Start 10/11/18 at 09:00 Quetiapine Fumarate (Seroquel) 25 mg BID@0900,1200 PO Last administered on 10/24/18 09:56; Admin Dose 25 MG; Start 10/11/18 at 12:00 Quetiapine Fumarate (Seroquel) 50 mg HS PO Last administered on 10/23/18 20:24; Admin Dose 50 MG; Start 10/11/18 at 21:00 Morphine Sulfate (morphine) 2 mg Q4H PRN IV SEVERE PAIN LEVEL 7-10 Last administered on 10/22/18 21:25; Admin Dose 2 MG; Start 10/15/18 at 21:00 Collagenase (Santyl) 1 applic DAILY TOP Last administered on 10/24/18 09:57; Admin Dose 1 APPLIC; Start 10/17/18 at 12:00 Lubiprostone (Amitiza) 24 mcg BID PO Last administered on 10/24/18 08:14; Admin Dose 24 MCG; Start 10/20/18 at 21:00 Ciprofloxacin (Cipro) 500 mg BID@06,18 PO Last administered on 10/24/18 05:05; Admin Dose 500 MG; Start 10/21/18 at 18:00 Insulin Glargine (Lantus) 8 units DAILY@1200 SC Last administered on 10/23/18at 12:53; Admin Dose 8 UNITS; Start 10/22/18 at 12:00 Lisinopril (Zestril) 20 mg DAILY PO Last administered on 10/24/18at 08:16; Admin Dose 20 MG; Start 10/21/18 at 17:30 Hydralazine HCl (Apresoline) 10 mg Q4H PRN IV >160/95; Start 10/21/18 at 17:30 Insulin Aspart (Novolog Insulin Pen) NOVOLOG *MILD* ALGORITHM WITH MEALS BEDTIME SC ; Start 10/22/18 at 21:00 Diagnostic Test (Pha) (Accu-Chek) 1 ea 02 XX ; Start 10/23/18 at 02:00 Multivitamins Therapeutic (Theragran) 1 tab DAILY PO Last administered on 10/24/18at 08:15; Admin Dose 1 TAB; Start 10/23/18 at 09:00 Zinc Sulfate (Zinc Sulfate) 220 mg DAILY PO Last administered on 10/24/18at 08:14; Admin Dose 220 MG; Start 10/23/18 at 09:00; Stop 11/06/18 at 09:00 Ascorbic Acid (Vitamin C) 250 mg DAILY PO Last administered on 10/24/18at 08:15; Admin Dose 250 MG; Start 10/23/18 at 09:00 Collagenase (Santyl) 1 applic DAILY TOP Last administered on 10/24/18at 09:58; Admin Dose 1 APPLIC; Start 10/23/18 at 11:00 Caspofungin 50 mg/ Sodium Chloride 250 ml @ 250 mls/hr Q24H IVPB ; Start 10/24/18 at 14:00 Potassium Chloride/Dextrose/ Sod Cl 1,000 ml @ 70 mls/hr [id number] IV Last administered on 10/23/18at 13:29; Admin Dose 70 MLS/HR; Start 10/23/18 at 13:00 Ferric Sodium Gluconate Complex 125 mg/Sodium Chloride 110 ml @ 110 mls/hr DAILY@1300 IVPB ; Start 10/24/18 at 13:00; Stop 10/28/18 at 13:59 VELIA CASTRO MD Oct 24, 2018 12:01
[2018-10-24] MEDS: INSULIN GLARGINE [LANTus] (100 UNITS/ML) SYG SC SCH (12:25)
[2018-10-24] MEDS: SOD FERRIC GLUC COMPLX 125 MG in SOD CHLORIDE 0.9% 100 ML IVPB SCH (12:30)
[2018-10-24] MEDS: DAKINS 0.0125%(1/40) 473 ML SOLUTION TP SCH (12:37)
[2018-10-24 14:00] VITALS: BP 106/72; PULSE 76; RESP 20
--- NOTE | 2018-10-24 14:05 | CONS ---
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 Echo dense structure seen by tricuspid valve, right atrium and IVC-thrombus, veg etation versus tumor CAD with history of CABG History of renal carcinoma status post nephrectomy approximately 8 years ago History of hypertension Diabetes Paroxysmal atrial fibrillation, intolerant to anticoagulation Newly diagnosed colon cancer Titrate antihypertensives as needed Consider restarting lasix if ok with renal Consultation Date/Type/Reason Admit Date/Time Oct 07, 2018 at 03:37 Initial Consult Date 10/07/18 Type of Consult Cardiology Requesting Provider: JAGJIT MONTES MD Date/Time of Note DATE: 10/24/18 TIME: 14:03 24 HR Interval Summary Free Text/Dictation Seen and examined Exam/Review of Systems Vital Signs Vitals Vital Signs Date Temp Pulse Resp B/P (MAP) Pulse Ox O2 O2 Flow FiO2 Time Delivery Rate 10/24/18 Nasal 2.0 10:25 Cannula 10/24/18 98.6 78 20 101/52 96 08:00 (68) Intake and Output 10/23/18 10/23/18 10/24/18 1515:00 23:00 07:00 IntakeIntake Total 720 ml 650 ml 240 ml OutputOutput Total 300 ml BalanceBalance 720 ml 350 ml 240 ml Exam Exam Sleeping, no apparent distress Head: normocephalic Respiratory: other (Coarse breath sounds bilaterally, no wheezing) Cardiovascular: regular rate and rhythm (S1-S2 heard) Gastrointestinal: soft, non-tender, bowel sounds Extremities: edema Labs Result Diagram: 10/23/1863010/23/18630 Results 24hrs Laboratory Tests Test 10/23/18 17:32 10/23/18 20:25 10/24/18 07:50 10/24/18 12:21 Bedside Glucose 102 167 122 211 Medications Medications Current Medications Allopurinol (Zyloprim) 100 mg BID PO Last administered on 10/24/18at 08:15; Admin Dose 100 MG; Start 10/07/18 at 21:00 Aspirin (Halfprin) 81 mg DAILY PO Last administered on 10/08/18at 08:14; Admin Dose 81 MG; Start 10/08/18 at 09:00; Status Hold Docusate Sodium (Colace) 100 mg TID PO Last administered on 10/24/18at 12:36; Admin Dose 100 MG; Start 10/07/18 at 21:00 Pantoprazole (Protonix Tab) 40 mg DAILY@06 PO Last administered on 10/24/18at 05:05; Admin Dose 40 MG; Start 10/08/18 at 06:00 IV Flush (NS 3 ml) 3 ml PER PROTOCOL IV ; Start 10/07/18 at 12:30 Ondansetron HCl (Zofran Inj) 4 mg Q6H PRN IV NAUSEA/VOMITING; Start 10/07/18 at 12:30 Acetaminophen (Tylenol Tab) 650 mg Q6H PRN PO .PAIN 1-3 OR TEMP Last administered on 10/16/18at 18:56; Admin Dose 650 MG; Start 10/07/18 at 12:30 Acetaminophen/ Hydrocodone Bitart ([place] (5/325)) 1 tab Q6H PRN PO .PAIN 4-6 Last administered on 10/24/18at 08:15; Admin Dose 1 TAB; Start 10/07/18 at 12:30 Clonidine (Catapres) 0.1 mg BID PO Last administered on 10/16/18at 08:46; Admin Dose 0.1 MG; Start 10/07/18 at 22:00; Status Hold Miscellaneous Information 1 ea NOTE XX ; Start 10/07/18 at 21:00 Glucose (Glutose) 15 gm Q15M PRN PO DECREASED GLUCOSE; Start 10/07/18 at 21:00 Glucose (Glutose) 22.5 gm Q15M PRN PO DECREASED GLUCOSE; Start 10/07/18 at 21:00 Dextrose (D50w Syringe) 25 ml Q15M PRN IV DECREASED GLUCOSE Last administered on 10/21/18at 08:09; Admin Dose 25 ML; Start 10/07/18 at 21:00 Dextrose (D50w Syringe) 50 ml Q15M PRN IV DECREASED GLUCOSE; Start 10/07/18 at 21:00 Glucagon (Glucagen) 1 mg Q15M PRN IM DECREASED GLUCOSE; Start 10/07/18 at 21:00 Glucose (Glutose) 15 gm Q15M PRN BUCCAL DECREASED GLUCOSE; Start 10/07/18 at 21:00 Collagenase (Santyl) 1 applic DAILY TOP Last administered on 10/24/18 09:57; Admin Dose 1 APPLIC; Start 10/09/18 at 19:00 Sodium Hypochlorite (Dakins Diluted ()) 1 applic DAILY TP Last administered on 10/24/18 12:37; Admin Dose 1 APPLIC; Start 10/11/18 at 09:00 Quetiapine Fumarate (Seroquel) 25 mg BID@0900,1200 PO Last administered on 10/24/18 12:24; Admin Dose 25 MG; Start 10/11/18 at 12:00 Quetiapine Fumarate (Seroquel) 50 mg HS PO Last administered on 10/23/18 20:24; Admin Dose 50 MG; Start 10/11/18 at 21:00 Morphine Sulfate (morphine) 2 mg Q4H PRN IV SEVERE PAIN LEVEL 7-10 Last administered on 10/22/18 21:25; Admin Dose 2 MG; Start 10/15/18 at 21:00 Collagenase (Santyl) 1 applic DAILY TOP Last administered on 10/24/18 09:57; Admin Dose 1 APPLIC; Start 10/17/18 at 12:00 Lubiprostone (Amitiza) 24 mcg BID PO Last administered on 10/24/18 08:14; Admin Dose 24 MCG; Start 10/20/18 at 21:00 Ciprofloxacin (Cipro) 500 mg BID@06,18 PO Last administered on 10/24/18 05:05; Admin Dose 500 MG; Start 10/21/18 at 18:00 Insulin Glargine (Lantus) 8 units DAILY@1200 SC Last administered on 10/24/18 12:25; Admin Dose 8 UNITS; Start 10/22/18 at 12:00 Lisinopril (Zestril) 20 mg DAILY PO Last administered on 10/24/18 08:16; Admin Dose 20 MG; Start 10/21/18 at 17:30 Hydralazine HCl (Apresoline) 10 mg Q4H PRN IV >160/95; Start 10/21/18 at 17:30 Insulin Aspart (Novolog Insulin Pen) NOVOLOG *MILD* ALGORITHM WITH MEALS BEDTIME SC Last administered on 10/24/18 12:26; Admin Dose 2 UNIT; Start 10/22/18 at 21:00 Diagnostic Test (Pha) (Accu-Chek) 1 ea 02 XX ; Start 10/23/18 at 02:00 Multivitamins Therapeutic (Theragran) 1 tab DAILY PO Last administered on 10/24/18at 08:15; Admin Dose 1 TAB; Start 10/23/18 at 09:00 Zinc Sulfate (Zinc Sulfate) 220 mg DAILY PO Last administered on 10/24/18at 08:14; Admin Dose 220 MG; Start 10/23/18 at 09:00; Stop 11/06/18 at 09:00 Ascorbic Acid (Vitamin C) 250 mg DAILY PO Last administered on 10/24/18at 08:15; Admin Dose 250 MG; Start 10/23/18 at 09:00 Collagenase (Santyl) 1 applic DAILY TOP Last administered on 10/24/18at 09:58; Admin Dose 1 APPLIC; Start 10/23/18 at 11:00 Caspofungin 50 mg/ Sodium Chloride 250 ml @ 250 mls/hr Q24H IVPB ; Start 10/24/18 at 14:00 Potassium Chloride/Dextrose/ Sod Cl 1,000 ml @ 70 mls/hr [id number] IV Last administered on 10/23/18at 13:29; Admin Dose 70 MLS/HR; Start 10/23/18 at 13:00 Ferric Sodium Gluconate Complex 125 mg/Sodium Chloride 110 ml @ 110 mls/hr DAILY@1300 IVPB Last administered on 10/24/18at 12:30; Admin Dose 110 MLS/HR; Start 10/24/18 at 13:00; Stop 10/28/18 at 13:59 Metronidazole 100 ml @ 100 mls/hr Q8 IVPB ; Start 10/24/18 at 14:00 Alex Chávez DO Oct 24, 2018 14:05
[2018-10-24] MEDS: metroNIDAZOLE 500 MG/NS (PMX) 100 ML IVPB SCH ×2 (14:29→21:11)
--- NOTE | 2018-10-24 14:41 | PN ---
DATE: 10/24/2018 SUBJECTIVE: The patient is sleeping, arousable, in no distress. No fevers overnight. No labs this morning. MICROBIOLOGY: Urine culture growing, his blood cultures remain negative. Right foot wound culture g rew Proteus. ANTIMICROBIALS: She is on Cipro and Cancidas. DIAGNOSTICS: CT of the chest, abdomen and pelvis revealed colitis involving the descending and recto sigmoid colon. No bowel obstruction, perforation or abscess, focal wall thickening and enhancement i nvolving the proximal transverse colon concerning for possible primary colonic malignancy, status pos t partial left nephrectomy with lobulated enhancing 4.6 cm mass arising from the lower pole of left k idney in the surgical bed is compatible with recurrent malignancy. Please see full report in the [facility]. INDWELLINGS: The patient has Odonnell catheter. PHYSICAL EXAMINATION: GENERAL: This is a chronically ill-appearing, wasted, elderly woman who is in no distress. HEENT: Head atraumatic, normocephalic. Sclerae anicteric. NECK: Supple. CHEST: Rise symmetrical. Breath sounds diminished to bases. HEART: S1, S2. ABDOMEN: Soft, bowel tones present. EXTREMITIES: With right heel to wound VAC. ASSESSMENT: 1. Primary adenocarcinoma of the colon. 2. Colitis per CT. 3. Recurrent renal cancer. 4. Right heel osteomyelitis. 5. Diabetes. 6. Recurrent urinary tract infection. 7. History of coronary artery bypass graft and endocarditis. 8. Failure to thrive. PLAN: The patient is being seen by oncology. So far there is no metastasis. There is a recommendat ion for surgical evaluation for possible hemicolectomy. There are also recommendations for urology [facility] for surgical resection of recurrent malignant mass of the kidney. We will add Flagyl to the regimen given findings of colitis in the colon. Dictated By: BARBARA ORDAZ [employer] for TORI IRVING MD NI/NTS Conf#: [id number] DID#: [id number] CC: JAGJIT MONTES MD;*EndCC*
[2018-10-24] MEDS: CASPOFUNGIN 50 MG in SOD CHLORIDE 0.9% 250 ML IVPB SCH (15:32)
--- NOTE | 2018-10-24 15:48 | PN ---
Date/Time of Note Date/Time of Note DATE: 10/24/18 TIME: 15:47 Assessment/Plan VTE Prophylaxis Risk score (from Ns)>0 risk: 6 SCD applied (from [facility]): No SCD contraindicated: other Pharmacological prophylaxis: other Pharm contraindication: other Lines/Catheters IV C[facility]ter Type (from [facility] Mid Line Central line still needed: Yes Urinary Cath still in place: Yes Reason Cath still needed: urinary retention Assessment/Plan Assessment/Plan -Status post colonoscopy with notion of ulcerated lesions consistent with malignancy. Pathology revealed well-differentiated carcinoma. Dr. Valencia is asked to see patient in oncology consultation. -Chronic gastritis per EGD, continue PPI. -Anemia, history of emesis at home and loss of appetite. Dr. Winkler is following in gastroenterology consultation. Colonoscopy recommended however patient is unable to take p.o. prep, patient's son refused NG tube placement. Patient is not able to tolerate Gastrografin enema. -Sepsis secondary to urinary tract infection and possible early pneumonia, resolving. Continue antibiotics per ID. Dr. Elias is following in infection disease consultation. -UTI. Status post treatment with antibiotics. -Acute kidney injury, continue gentle hydration, monitor BUN and creatinine. Dr. Arreaga is following in nephrology consultation. -Hypertension -Systolic congestive heart failure. Dr. Chávez is following in cardiology consultation. -Cardiomyopathy with ejection fraction 50% -Atrial fibrillation, patient did not tolerate anticoagulation in the past due to bleeding and anemia, patient was on aspirin which is currently held due significant drop in hemoglobin. -Coronary artery disease, status post CABG -Diabetes mellitus type 2, continue Lantus and pre-meal NovoLog. -History of endocarditis, status post treatment -Sacral, right foot, and left garcia wounds present on admission. Continue current care per wound care recommendations. -Right heel wound with early osteomyelitis, status post debridement and application of allograft and wound VAC on 10/15/2018, Dr. Garland is following and podiatry consultation. Continue antibiotics per ID. -History of left femoral artery thrombectomy, left garcia open wound. Continue current wound care. Dr. Dawson is following in vascular surgery consultation. No inpatient procedures planned. Further recommendations based on clinical course. Plan of care discussed with Dr. Mi. Result Diagram: 10/23/18 0631 10/23/18 0631 Results 24hrs Laboratory Tests Test 10/23/18 17:32 10/23/18 20:25 10/24/18 07:50 10/24/18 12:21 Bedside Glucose 102 167 122 211 Subjective 24 Hr Interval Summary Free Text/Dictation c/o abdominal pain; nausea oncology follows no reported`rectal bleeding dw staff Constitutional: requiring IVF Respiratory: no complaints Cardiovascular: no complaints Gastrointestinal: pain, decreased appetite Musculoskeletal: other (general weakness) Skin: no complaints Psychological: no complaints Immunologic: no complaints Exam/Review of Systems Exam Vitals Vital Signs Date Temp Pulse Resp B/P (MAP) Pulse Ox O2 O2 Flow FiO2 Time Delivery Rate 10/24/18 Nasal 2.0 10:25 Cannula 10/24/18 98.6 78 20 101/52 96 08:00 (68) Intake and Output 10/23/18 10/23/18 10/24/18 1515:00 23:00 07:00 IntakeIntake Total 720 ml 650 ml 240 ml OutputOutput Total 300 ml BalanceBalance 720 ml 350 ml 240 ml Constitutional: alert, well developed Psych: nl mood/affect Eyes: nl sclera, PERRL ENMT: nl external ears & nose Neck: non-tender Respiratory: clear to auscultation Cardiovascular: nl pulses, other (s1s2) Gastrointestinal: soft, tender Musculoskeletal: nl extremities to inspection Neurological: other (alert/responsive) Results Results 24hrs Laboratory Tests Test 10/23/18 17:32 10/23/18 20:25 10/24/18 07:50 10/24/18 12:21 Bedside Glucose 102 167 122 211 Medications Medication Current Medications Allopurinol (Zyloprim) 100 mg BID PO Last administered on 10/24/18at 08:15; Admin Dose 100 MG; Start 10/07/18 at 21:00 Aspirin (Halfprin) 81 mg DAILY PO Last administered on 10/08/18at 08:14; Admin Dose 81 MG; Start 10/08/18 at 09:00; Status Hold Docusate Sodium (Colace) 100 mg TID PO Last administered on 10/24/18at 12:36; Admin Dose 100 MG; Start 10/07/18 at 21:00 Pantoprazole (Protonix Tab) 40 mg DAILY@06 PO Last administered on 10/24/18at 05:05; Admin Dose 40 MG; Start 10/08/18 at 06:00 IV Flush (NS 3 ml) 3 ml PER PROTOCOL IV ; Start 10/07/18 at 12:30 Ondansetron HCl (Zofran Inj) 4 mg Q6H PRN IV NAUSEA/VOMITING; Start 10/07/18 at 12:30 Acetaminophen (Tylenol Tab) 650 mg Q6H PRN PO .PAIN 1-3 OR TEMP Last administered on 10/16/18at 18:56; Admin Dose 650 MG; Start 10/07/18 at 12:30 Acetaminophen/ Hydrocodone Bitart ([place] (5/325)) 1 tab Q6H PRN PO .PAIN 4-6 Last administered on 10/24/18at 08:15; Admin Dose 1 TAB; Start 10/07/18 at 12:30 Clonidine (Catapres) 0.1 mg BID PO Last administered on 10/16/18at 08:46; Admin Dose 0.1 MG; Start 10/07/18 at 22:00; Status Hold Miscellaneous Information 1 ea NOTE XX ; Start 10/07/18 at 21:00 Glucose (Glutose) 15 gm Q15M PRN PO DECREASED GLUCOSE; Start 10/07/18 at 21:00 Glucose (Glutose) 22.5 gm Q15M PRN PO DECREASED GLUCOSE; Start 10/07/18 at 21:00 Dextrose (D50w Syringe) 25 ml Q15M PRN IV DECREASED GLUCOSE Last administered on 10/21/18at 08:09; Admin Dose 25 ML; Start 10/07/18 at 21:00 Dextrose (D50w Syringe) 50 ml Q15M PRN IV DECREASED GLUCOSE; Start 10/07/18 at 21:00 Glucagon (Glucagen) 1 mg Q15M PRN IM DECREASED GLUCOSE; Start 10/07/18 at 21:00 Glucose (Glutose) 15 gm Q15M PRN BUCCAL DECREASED GLUCOSE; Start 10/07/18 at 21:00 Collagenase (Santyl) 1 applic DAILY TOP Last administered on 10/24/18at 09:57; Admin Dose 1 APPLIC; Start 10/09/18 at 19:00 Sodium Hypochlorite (Dakins Diluted ()) 1 applic DAILY TP Last administered on 10/24/18at 12:37; Admin Dose 1 APPLIC; Start 10/11/18 at 09:00 Quetiapine Fumarate (Seroquel) 25 mg BID@0900,1200 PO Last administered on 10/24/18 12:24; Admin Dose 25 MG; Start 10/11/18 at 12:00 Quetiapine Fumarate (Seroquel) 50 mg HS PO Last administered on 10/23/18 20:24; Admin Dose 50 MG; Start 10/11/18 at 21:00 Morphine Sulfate (morphine) 2 mg Q4H PRN IV SEVERE PAIN LEVEL 7-10 Last administered on 10/22/18 21:25; Admin Dose 2 MG; Start 10/15/18 at 21:00 Collagenase (Santyl) 1 applic DAILY TOP Last administered on 10/24/18 09:57; Admin Dose 1 APPLIC; Start 10/17/18 at 12:00 Lubiprostone (Amitiza) 24 mcg BID PO Last administered on 10/24/18 08:14; Admin Dose 24 MCG; Start 10/20/18 at 21:00 Ciprofloxacin (Cipro) 500 mg BID@06,18 PO Last administered on 10/24/18 05:05; Admin Dose 500 MG; Start 10/21/18 at 18:00 Insulin Glargine (Lantus) 8 units DAILY@1200 SC Last administered on 10/24/18 12:25; Admin Dose 8 UNITS; Start 10/22/18 at 12:00 Lisinopril (Zestril) 20 mg DAILY PO Last administered on 10/24/18 08:16; Admin Dose 20 MG; Start 10/21/18 at 17:30 Hydralazine HCl (Apresoline) 10 mg Q4H PRN IV >160/95; Start 10/21/18 at 17:30 Insulin Aspart (Novolog Insulin Pen) NOVOLOG *MILD* ALGORITHM WITH MEALS BEDTIME SC Last administered on 10/24/18 12:26; Admin Dose 2 UNIT; Start at 21:00 Diagnostic Test (Pha) (Accu-Chek) 1 ea 02 XX ; Start 10/23/18 at 02:00 Multivitamins Therapeutic (Theragran) 1 tab DAILY PO Last administered on 10/24/18 08:15; Admin Dose 1 TAB; Start 10/23/18 at 09:00 Zinc Sulfate (Zinc Sulfate) 220 mg DAILY PO Last administered on 10/24/18 08: 14; Admin Dose 220 MG; Start 10/23/18 at 09:00; Stop 11/06/18 at 09:00 Ascorbic Acid (Vitamin C) 250 mg DAILY PO Last administered on 10/24/18 08:15; Admin Dose 250 MG; Start 10/23/18 at 09:00 Collagenase (Santyl) 1 applic DAILY TOP Last administered on 10/24/18 09:58; Admin Dose 1 APPLIC; Start 10/23/18 at 11:00 Caspofungin 50 mg/ Sodium Chloride 250 ml @ 250 mls/hr Q24H IVPB Last administered on 10/24/18 15:32; Admin Dose 250 MLS/HR; Start 10/24/18 at 14:00 Potassium Chloride/Dextrose/ Sod Cl 1,000 ml @ 70 mls/hr [id number] IV Last administered on 10/23/18 13:29; Admin Dose 70 MLS/HR; Start 10/23/18 at 13:00 Ferric Sodium Gluconate Complex 125 mg/Sodium Chloride 110 ml @ 110 mls/hr DAILY@1300 IVPB Last administered on 10/24/18 12:30; Admin Dose 110 MLS/HR; Start 10/24/18 at 13:00; Stop 10/28/18 at 13:59 Metronidazole 100 ml @ 100 mls/hr Q8 IVPB Last administered on 10/24/18 14:29; Admin Dose 100 MLS/HR; Start 10/24/18 at 14:00 ELIZA HECTOR Oct 24, 2018 15:48
--- NOTE | 2018-10-24 17:08 | PN ---
"Date/Time of Note Date/Time of Note DATE: 10/24/18 TIME: 17:02 Assessment/Plan Lines/Catheters IV Catheter Type (from Nrs): Mid Line [place] in Place (from Nrs): Yes Assessment/Plan Chief Complaint/Hosp Course 1. Right buttock wound; Foot wound with osteo; right buttock wound healing -debridement of right buttock wound as needed -continue local care -frequent turning and off-loading -low air loss mattress -vitamin c -short term zinc -optimize nutrition -foot wounds per podiatry> status post debridement currently with wound VAC -calf wound per vascular 2. 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 BRANDON: Resolved; hypoechoic lesion left kidney, possible neoplasm; hx of renal ca and nephrectomy; CT noted with possible recurrent left kidney malignancy -Monitor 4. Microcytic hypochromic anemia: sp prbc tx; colonoscopy pending today -monitor -transfuse as needed 5. Obesity bmi 31 -diet and exercise optimization -encourage weight loss 6. Poor appetite: -supportive -treat infections 7. Hepatic steatosis: -nutrition and weight optimization -medical fu 8. Gastritis: -PPI 9. Constipation: now + bowel function -per gi 10. Diabetes with hypoglycemic episode -glucose optimization - med adjustment per medical team 11. UTI: -abx per sensitivity -frequent bladder emptying/cath care Thank you. Patient seen and examined in collaboration with Dr. Isaac Erwin. Subjective 24 Hr Interval Summary Appears comfortable. Nonverbal indicators of pain at present. + Bowel function. No fevers, labored breathing, congested cough, vomiting, diarrhea, seizure, rash. Exam/Review of Systems Vital Signs Vitals Vital Signs Date Temp Pulse Resp B/P (MAP) Pulse Ox O2 O2 Flow FiO2 Time Delivery Rate 10/24/18 97.8 76 20 106/72 94 14:00 (83) 10/24/18 Nasal 2.0 10:25 Cannula Intake and Output 10/23/18 10/23/18 10/24/18 1515:00 23:00 07:00 IntakeIntake Total 720 ml 650 ml 240 ml OutputOutput Total 300 ml BalanceBalance 720 ml 350 ml 240 ml Exam Free Text/Dictation Constitutional: alert; somnolent No oriented (confused) Psych: anxiety Head: normocephalic, atraumatic Eyes: nl conjunctiva, EOMI, nl lids, nl sclera ENMT: nl external ears & nose, nl nasal mucosa & septum, mucosa pink and moist Neck: supple, non-tender Respiratory: normal air movement; No congested cough Cardiovascular: regular rate and rhythm, nl pulses; No edema Gastrointestinal: soft, non-tender; No distended, No rebound or guarding Genitourinary - Female: nl external genitalia Musculoskeletal: nl extremities to inspection, muscle weakness (gen weakness) Extremities: normal pulses; No edema, No pitting pedal edema Neurological: nl speech; No nl mental status (forgetful), No nl strength (gen weakness) Skin: other (Multiple wounds: right buttock: clean, granulating, no periwound erythema/drainage/odor | Left calf:min slough, wrapped | Bilateral foot wounds; r foot w wound vac); No rash or lesions Results Result Diagram: 10/23/18 0631 10/23/18 0631 JUSTINE GUEVARA NP Oct 24, 2018 17:08"
[2018-10-24 20:00] VITALS: BP 99/45; PULSE 52; RESP 16
[2018-10-25] VITALS (9 sets, daily range): BP systolic 95–111; BP diastolic 44–74; PULSE 48–84; RESP 15–18
[2018-10-25] MEDS: ACCU-CHEK XX SCH (02:12)
[2018-10-25] MEDS: CIPROFLOXACIN 500 MG TAB PO SCH ×2 (05:48→18:28)
[2018-10-25] MEDS: PANTOPRAZOLE (EC) 40 MG TAB PO SCH (05:48)
[2018-10-25] MEDS: metroNIDAZOLE 500 MG/NS (PMX) 100 ML IVPB SCH ×3 (05:48→21:59)
[2018-10-25] MEDS: INSULIN ASPART [NOVOLOG] 3 ML PEN SC SCH ×5 (08:00→21:59)
--- NOTE | 2018-10-25 09:43 | CONS ---
Assessment/Plan Assessment/Plan Assessment/Plan (Daily) 1. Urinary tract infection. 2. Sepsis. -gram positive rods in foot wound cx. -pos urine cx 3. Status post coronary artery bypass graft. 4. Peripheral vascular disease. 5. Atrial fibrillation. 6. Status post surgery for renal cell carcinoma 8 years ago. 7. Diabetes. 8. Hypertension. 9. Severe anemia. -IV iron 10. Transaminitis -elevated ALT/AST -improving -CBD 7mm, t bili wnl. 11. Elevated CEA: 24.1 12. Chronic gastritis 13. S/P EGD 10/13 14. Fatty liver with possible hepatocellular disease noted on US 15. 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 Charisse ink was injected. surgery f/u for consideration of resection of adenoma of the transverse colon Consultation Date/Type/Reason Admit Date/Time Oct 07, 2018 at 03:37 Initial Consult Date 10/24/18 Type of Consult GI Requesting Provider: JAGJIT MONTES MD Date/Time of Note DATE: 10/25/18 TIME: 09:40 24 HR Interval Summary Free Text/Dictation no abdominal pain Constitutional: no complaints Exam/Review of Systems Exam Vitals Vital Signs Date Temp Pulse Resp B/P (MAP) Pulse Ox O2 O2 Flow FiO2 Time Delivery Rate 10/25/18 98.6 50 18 109/53 96 08:00 (71) 10/25/18 Room Air 05:51 10/24/18 2.0 10:25 Intake and Output 10/24/18 10/24/18 10/25/18 1515:00 23:00 07:00 IntakeIntake Total 320 ml 1525 ml 220 ml OutputOutput Total 800 ml 450 ml 50 ml BalanceBalance -480 ml 1075 ml 170 ml Constitutional: alert Head: normocephalic, atraumatic Eyes: nl conjunctiva, nl lids ENMT: nl external ears & nose, nl lips & teeth, nl nasal mucosa & septum Neck: supple, non-tender Respiratory: clear to auscultation, normal air movement Cardiovascular: regular rate and rhythm, nl pulses Gastrointestinal: soft, non-tender Results Result Diagram: 10/25/18 0732 10/25/18 0633 Results 24hrs Laboratory Tests Test 10/24/18 12:21 10/24/18 16:55 10/24/18 20:42 10/25/18 01:18 Bedside Glucose 211 138 275 H 255 H Test 10/25/18 06:33 10/25/18 07:32 10/25/18 08:29 Sodium Level 135 Potassium Level 4.8 Chloride Level 112 H Carbon Dioxide Level 20 L Anion Gap 3 L Blood Urea Nitrogen 17 Creatinine 1.32 H Est Glomerular Filtrat Rate mL/min Glucose Level 187 Calcium Level 8.1 L Magnesium Level 1.3 L White Blood Count 12.6 H Red Blood Count 2.67 L Hemoglobin 7.2 L Hematocrit 22.8 L Mean Corpuscular 85.4 Volume Mean Corpuscular 27.0 L Hemoglobin Mean Corpuscular 31.6 L Hemoglobin Concent Red Cell 17.9 H Distribution Width Platelet Count 249 Mean Platelet Volume 10.0 Immature 0.500 H Granulocytes % Neutrophils % 70.6 Lymphocytes % 21.2 Monocytes % 6.5 Eosinophils % 0.9 Basophils % 0.3 Nucleated Red Blood 0.0 Cells % Immature 0.060 H Granulocytes # Neutrophils # 8.9 H Lymphocytes # 2.7 Monocytes # 0.8 Eosinophils # 0.1 Basophils # 0.0 Nucleated Red Blood 0.0 Cells # Bedside Glucose 232 H Medications Medication Current Medications Allopurinol (Zyloprim) 100 mg BID PO Last administered on 10/24/18at 20:44; Admin Dose 100 MG; Start 10/07/18 at 21:00 Aspirin (Halfprin) 81 mg DAILY PO Last administered on 10/08/18at 08:14; Admin Dose 81 MG; Start 10/08/18 at 09:00; Status Hold Docusate Sodium (Colace) 100 mg TID PO Last administered on 10/24/18at 20:44; Admin Dose 100 MG; Start 10/07/18 at 21:00 Pantoprazole (Protonix Tab) 40 mg DAILY@06 PO Last administered on 10/25/18at 05:48; Admin Dose 40 MG; Start 10/08/18 at 06:00 IV Flush (NS 3 ml) 3 ml PER PROTOCOL IV ; Start 10/07/18 at 12:30 Ondansetron HCl (Zofran Inj) 4 mg Q6H PRN IV NAUSEA/VOMITING; Start 10/07/18 at 12:30 Acetaminophen (Tylenol Tab) 650 mg Q6H PRN PO .PAIN 1-3 OR TEMP Last admini stered on 10/16/18 18:56; Admin Dose 650 MG; Start 10/07/18 at 12:30 Acetaminophen/ Hydrocodone Bitart ([place] (5/325)) 1 tab Q6H PRN PO .PAIN 4-6 Last administered on 10/24/18 20:44; Admin Dose 1 TAB; Start 10/07/18 at 12:30 Clonidine (Catapres) 0.1 mg BID PO Last administered on 10/16/18 08:46; Admin Dose 0.1 MG; Start 10/07/18 at 22:00; Status Hold Miscellaneous Information 1 ea NOTE XX ; Start 10/07/18 at 21:00 Glucose (Glutose) 15 gm Q15M PRN PO DECREASED GLUCOSE; Start 10/07/18 at 21:00 Glucose (Glutose) 22.5 gm Q15M PRN PO DECREASED GLUCOSE; Start 10/07/18 at 21:00 Dextrose (D50w Syringe) 25 ml Q15M PRN IV DECREASED GLUCOSE Last administered on 10/21/18 08:09; Admin Dose 25 ML; Start 10/07/18 at 21:00 Dextrose (D50w Syringe) 50 ml Q15M PRN IV DECREASED GLUCOSE; Start 10/07/18 at 2 1:00 Glucagon (Glucagen) 1 mg Q15M PRN IM DECREASED GLUCOSE; Start 10/07/18 at 21:00 Glucose (Glutose) 15 gm Q15M PRN BUCCAL DECREASED GLUCOSE; Start 10/07/18 at 21:00 Collagenase (Santyl) 1 applic DAILY TOP Last administered on 10/24/18at 09:57; Admin Dose 1 APPLIC; Start 10/09/18 at 19:00 Sodium Hypochlorite (Dakins Diluted ()) 1 applic DAILY TP Last administered on 10/24/18 12:37; Admin Dose 1 APPLIC; Start 10/11/18 at 09:00 Quetiapine Fumarate (Seroquel) 25 mg BID@0900,1200 PO Last administered on 10/24/18 12:24; Admin Dose 25 MG; Start 10/11/18 at 12:00 Quetiapine Fumarate (Seroquel) 50 mg HS PO Last administered on 10/24/18 20:44; Admin Dose 50 MG; Start 10/11/18 at 21:00 Morphine Sulfate (morphine) 2 mg Q4H PRN IV SEVERE PAIN LEVEL 7-10 Last administered on 10/22/18 21:25; Admin Dose 2 MG; Start 10/15/18 at 21:00 Collagenase (Santyl) 1 applic DAILY TOP Last administered on 10/24/18 09:57; Admin Dose 1 APPLIC; Start 10/17/18 at 12:00 Lubiprostone (Amitiza) 24 mcg BID PO Last administered on 10/24/18 20:44; Admin Dose 24 MCG; Start 10/20/18 at 21:00 Ciprofloxacin (Cipro) 500 mg BID@06,18 PO Last administered on 10/25/18 05:48; Admin Dose 500 MG; Start 10/21/18 at 18:00 Insulin Glargine (Lantus) 8 units DAILY@1200 SC Last administered on 10/24/18 12:25; Admin Dose 8 UNITS; Start 10/22/18 at 12:00 Lisinopril (Zestril) 20 mg DAILY PO Last administered on 10/24/18 08:16; Admin Dose 20 MG; Start 10/21/18 at 17:30 Hydralazine HCl (Apresoline) 10 mg Q4H PRN IV >160/95; Start 10/21/18 at 17:30 Insulin Aspart (Novolog Insulin Pen) NOVOLOG *MILD* ALGORITHM WITH MEALS BEDTIME SC Last administered on 10/24/18 20:46; Admin Dose 3 UNIT; Start 10/22/18 at 21:00 Diagnostic Test (Pha) (Accu-Chek) 1 ea 02 XX Last administered on 10/25/18 02:12; Admin Dose 1 EA; Start 10/23/18 at 02:00 Multivitamins Therapeutic (Theragran) 1 tab DAILY PO Last administered on 10/24/18 08:15; Admin Dose 1 TAB; Start 10/23/18 at 09:00 Zinc Sulfate (Zinc Sulfate) 220 mg DAILY PO Last administered on 10/24/18 08:14; Admin Dose 220 MG; Start 10/23/18 at 09:00; Stop 11/06/18 at 09:00 Ascorbic Acid (Vitamin C) 250 mg DAILY PO Last administered on 10/24/18 08:15; Admin Dose 250 MG; Start 10/23/18 at 09:00 Collagenase (Santyl) 1 applic DAILY TOP Last administered on 10/24/18 09:58; Admin Dose 1 APPLIC; Start 10/23/18 at 11:00 Caspofungin 50 mg/ Sodium Chloride 250 ml @ 250 mls/hr Q24H IVPB Last administered on 10/24/18at 15:32; Admin Dose 250 MLS/HR; Start 10/24/18 at 14:00 Potassium Chloride/Dextrose/ Sod Cl 1,000 ml @ 70 mls/hr [id number] IV Last administered on 10/24/18 15:53; Admin Dose 70 MLS/HR; Start 10/23/18 at 13:00 Ferric Sodium Gluconate Complex 125 mg/Sodium Chloride 110 ml @ 110 mls/hr DAILY@1300 IVPB Last administered on 10/24/18at 12:30; Admin Dose 110 MLS/HR; Start 10/24/18 at 13:00; Stop 10/28/18 at 13:59 Metronidazole 100 ml @ 100 mls/hr Q8 IVPB Last administered on 10/25/18at 05:48; Admin Dose 100 MLS/HR; Start 10/24/18 at 14:00 MAGALIS HUDDLESTON MD Oct 25, 2018 09:43
[2018-10-25] MEDS: LUBIPROSTONE 24 MCG CAP PO SCH ×2 (09:46→20:11)
[2018-10-25] MEDS: MULTIVITAMINS THERAPEUTIC TAB PO SCH (09:46)
[2018-10-25] MEDS: ASCORBIC ACID 250 MG TAB PO SCH (09:46)
[2018-10-25] MEDS: ZINC SULFATE 220 MG CAP PO SCH (09:46)
[2018-10-25] MEDS: DOCUSATE SODIUM 100 MG CAP PO SCH ×3 (09:46→20:11)
[2018-10-25] MEDS: ALLOPURINOL 100 MG TAB PO SCH ×2 (09:46→20:11)
[2018-10-25] MEDS: QUETIAPINE 25 MG TAB PO SCH ×3 (09:56→20:11)
[2018-10-25] MEDS: LISINOPRIL 20 MG TAB PO SCH (09:57)
[2018-10-25] MEDS: COLLAGENASE 5 GM (UD JAR) TOP SCH ×3 (10:35→10:36)
[2018-10-25] MEDS: DAKINS 0.0125%(1/40) 473 ML SOLUTION TP SCH (10:36)
[2018-10-25] MEDS: HYDROCODONE/APAP (5/325) TAB PO PRN (10:52)
[2018-10-25] MEDS: D5W-0.45 NACL + KCL 20 MEQ 1,000 ML IV SCH ×2 (10:53→22:12)
[2018-10-25] MEDS: INSULIN GLARGINE [LANTus] (100 UNITS/ML) SYG SC SCH (12:57)
--- NOTE | 2018-10-25 13:23 | PN ---
Date/Time of Note Date/Time of Note DATE: 10/25/18 TIME: 13:22 Assessment/Plan VTE Prophylaxis Risk score [place]from [facility] [place]0 risk: 9 SCD applied (from [facility] [place] No SCD contraindicated: other Pharmacological prophylaxis: LMWH Lines/Catheters IV Catheter Type (from [facility]): Mid Line Urinary Cath still in place: Yes Reason Cath still needed: skin wounds contaminated by urine Assessment/Plan Hospital Course -Status post colonoscopy with notion of ulcerated lesions consistent with malignancy. Pathology revealed well-differentiated carcinoma. Dr. Valencia is asked to see patient in oncology consultation. -Chronic gastritis per EGD, continue PPI. -Anemia, history of emesis at home and loss of appetite. Dr. Winkler is following in gastroenterology consultation. Colonoscopy recommended however patient is unable to take p.o. prep, patient's son refused NG tube placement. Patient is not able to tolerate Gastrografin enema. -Sepsis secondary to urinary tract infection and possible early pneumonia, resolving. Continue antibiotics per ID. Dr. Elias is following in infection disease consultation. -UTI. Status post treatment with antibiotics. -Hyperkalemia, resolved, status post treatment -Acute kidney injury, continue gentle hydration, monitor BUN and creatinine. Dr. Arreaga is following in nephrology consultation. -Hypertension -Systolic congestive heart failure. Dr. Chávez is following in cardiology consultation. -Cardiomyopathy with ejection fraction 50% -Atrial fibrillation, patient did not tolerate anticoagulation in the past due to bleeding and anemia, patient was on aspirin which is currently held due sig nificant drop in hemoglobin. -Coronary artery disease, status post CABG -Diabetes mellitus type 2, continue Lantus and pre-meal NovoLog. -History of endocarditis, status post treatment -Sacral, right foot, and left garcia wounds present on admission. Continue current care per wound care recommendations. -Right heel wound with early osteomyelitis, status post debridement and application of allograft and wound VAC on 10/15/2018, Dr. Garland is following and podiatry consultation. Continue antibiotics per ID. -History of left femoral artery thrombectomy, left garcia open wound. Continue current wound care. Dr. Dawson is following in vascular surgery consultation. No inpatient procedures planned. Result Diagram: 10/25/18 0732 10/25/18 0633 Results 24hrs Laboratory Tests Test 10/24/18 16:55 10/24/18 20:42 10/25/18 01:18 10/25/18 06:33 Bedside Glucose 138 275 H 255 H Sodium Level 135 Potassium Level 4.8 Chloride Level 112 H Carbon Dioxide Level 20 L Anion Gap 3 L Blood Urea Nitrogen 17 Creatinine 1.32 H Est Glomerular Filtrat Rate mL/min Glucose Level 187 Calcium Level 8.1 L Magnesium Level 1.3 L Test 10/25/18 07:32 10/25/18 08:29 10/25/18 11:54 White Blood Count 12.6 H Red Blood Count 2.67 L Hemoglobin 7.2 L Hematocrit 22.8 L Mean Corpuscular 85.4 Volume Mean Corpuscular 27.0 L Hemoglobin Mean Corpuscular 31.6 L Hemoglobin Concent Red Cell 17.9 H Distribution Width Platelet Count 249 Mean Platelet Volume 10.0 Immature 0.500 H Granulocytes % Neutrophils % 70.6 Lymphocytes % 21.2 Monocytes % 6.5 Eosinophils % 0.9 Basophils % 0.3 Nucleated Red Blood 0.0 Cells % Immature 0.060 H Granulocytes # Neutrophils # 8.9 H Lymphocytes # 2.7 Monocytes # 0.8 Eosinophils # 0.1 Basophils # 0.0 Nucleated Red Blood 0.0 Cells # Bedside Glucose 232 H 232 H Subjective 24 Hr Interval Summary Free Text/Dictation Patient has no complaints Exam/Review of Systems Exam Vitals Vital Signs Date Temp Pulse Resp B/P (MAP) Pulse Ox O2 O2 Flow FiO2 Time Delivery Rate 10/25/18 98.6 50 18 109/53 96 08:00 (71) 10/25/18 Room Air 05:51 10/24/18 2.0 10:25 Intake and Output 10/24/18 10/24/18 10/25/18 1515:00 23:00 07:00 IntakeIntake Total 320 ml 1525 ml 220 ml OutputOutput Total 800 ml 450 ml 50 ml BalanceBalance -480 ml 1075 ml 170 ml Constitutional: well developed Head: normocephalic, atraumatic Neck: supple Respiratory: diminished breath sounds Cardiovascular: regular rate and rhythm Gastrointestinal: soft, non-tender Extremities: normal pulses Results Results 24hrs Laboratory Tests Test 10/24/18 16:55 10/24/18 20:42 10/25/18 01:18 10/25/18 06:33 Bedside Glucose 138 275 H 255 H Sodium Level 135 Potassium Level 4.8 Chloride Level 112 H Carbon Dioxide Level 20 L Anion Gap 3 L Blood Urea Nitrogen 17 Creatinine 1.32 H Est Glomerular Filtrat Rate mL/min Glucose Level 187 Calcium Level 8.1 L Magnesium Level 1.3 L Test 10/25/18 07:32 10/25/18 08:29 10/25/18 11:54 White Blood Count 12.6 H Red Blood Count 2.67 L Hemoglobin 7.2 L Hematocrit 22.8 L Mean Corpuscular 85.4 Volume Mean Corpuscular 27.0 L Hemoglobin Mean Corpuscular 31.6 L Hemoglobin Concent Red Cell 17.9 H Distribution Width Platelet Count 249 Mean Platelet Volume 10.0 Immature 0.500 H Granulocytes % Neutrophils % 70.6 Lymphocytes % 21.2 Monocytes % 6.5 Eosinophils % 0.9 Basophils % 0.3 Nucleated Red Blood 0.0 Cells % Immature 0.060 H Granulocytes # Neutrophils # 8.9 H Lymphocytes # 2.7 Monocytes # 0.8 Eosinophils # 0.1 Basophils # 0.0 Nucleated Red Blood 0.0 Cells # Bedside Glucose 232 H 232 H Medications Medication Current Medications Allopurinol (Zyloprim) 100 mg BID PO Last administered on 10/25/18 09:46; Admin Dose 100 MG; Start 10/07/18 at 21:00 Aspirin (Halfprin) 81 mg DAILY PO Last administered on 10/08/18at 08:14; Admin Dose 81 MG; Start 10/08/18 at 09:00; Status Hold Docusate Sodium (Colace) 100 mg TID PO Last administered on 10/25/18at 09:46; Admin Dose 100 MG; Start 10/07/18 at 21:00 Pantoprazole (Protonix Tab) 40 mg DAILY@06 PO Last administered on 10/25/18at 05:48; Admin Dose 40 MG; Start 10/08/18 at 06:00 IV Flush (NS 3 ml) 3 ml PER PROTOCOL IV ; Start 10/07/18 at 12:30 Ondansetron HCl (Zofran Inj) 4 mg Q6H PRN IV NAUSEA/VOMITING; Start 10/07/18 at 12:30 Acetaminophen (Tylenol Tab) 650 mg Q6H PRN PO .PAIN 1-3 OR TEMP Last administered on 10/16/18at 18:56; Admin Dose 650 MG; Start 10/07/18 at 12:30 Acetaminophen/ Hydrocodone Bitart ([place] (5/325)) 1 tab Q6H PRN PO .PAIN 4-6 Last administered on 10/25/18at 10:52; Admin Dose 1 TAB; Start 10/07/18 at 12:30 Clonidine (Catapres) 0.1 mg BID PO Last administered on 10/16/18 08:46; Admin Dose 0.1 MG; Start 10/07/18 at 22:00; Status Hold Miscellaneous Information 1 ea NOTE XX ; Start 10/07/18 at 21:00 Glucose (Glutose) 15 gm Q15M PRN PO DECREASED GLUCOSE; Start 10/07/18 at 21:00 Glucose (Glutose) 22.5 gm Q15M PRN PO DECREASED GLUCOSE; Start 10/07/18 at 21:00 Dextrose (D50w Syringe) 25 ml Q15M PRN IV DECREASED GLUCOSE Last administered on 10/21/18 08:09; Admin Dose 25 ML; Start 10/07/18 at 21:00 Dextrose (D50w Syringe) 50 ml Q15M PRN IV DECREASED GLUCOSE; Start 10/07/18 at 21:00 Glucagon (Glucagen) 1 mg Q15M PRN IM DECREASED GLUCOSE; Start 10/07/18 at 21:00 Glucose (Glutose) 15 gm Q15M PRN BUCCAL DECREASED GLUCOSE; Start 10/07/18 at 21:00 Collagenase (Santyl) 1 applic DAILY TOP Last administered on 10/25/18at 10:35; Admin Dose 1 APPLIC; Start 10/09/18 at 19:00 Sodium Hypochlorite (Dakins Diluted ()) 1 applic DAILY TP Last administered on 10/25/18at 10:36; Admin Dose 1 APPLIC; Start 10/11/18 at 09:00 Quetiapine Fumarate (Seroquel) 25 mg BID@0900,1200 PO Last administered on 10/25/18at 12:54; Admin Dose 25 MG; Start 10/11/18 at 12:00 Quetiapine Fumarate (Seroquel) 50 mg HS PO Last administered on 10/24/18at 20:44; Admin Dose 50 MG; Start 10/11/18 at 21:00 Morphine Sulfate (morphine) 2 mg Q4H PRN IV SEVERE PAIN LEVEL 7-10 Last administered on 10/22/18 21:25; Admin Dose 2 MG; Start 10/15/18 at 21:00 Collagenase (Santyl) 1 applic DAILY TOP Last administered on 10/25/18 10:35; Admin Dose 1 APPLIC; Start 10/17/18 at 12:00 Lubiprostone (Amitiza) 24 mcg BID PO Last administered on 10/25/18 09:46; Admin Dose 24 MCG; Start 10/20/18 at 21:00 Ciprofloxacin (Cipro) 500 mg BID@06,18 PO Last administered on 10/25/18 05:48; Admin Dose 500 MG; Start 10/21/18 at 18:00 Insulin Glargine (Lantus) 8 units DAILY@1200 SC Last administered on 10/25/18 12:57; Admin Dose 8 UNITS; Start 10/22/18 at 12:00 Lisinopril (Zestril) 20 mg DAILY PO Last administered on 10/25/18 09:57; Admin Dose 20 MG; Start 10/21/18 at 17:30 Hydralazine HCl (Apresoline) 10 mg Q4H PRN IV >160/95; Start 10/21/18 at 17:30 Insulin Aspart (Novolog Insulin Pen) NOVOLOG *MILD* ALGORITHM WITH MEALS BEDTIME SC Last administered on 10/25/18 11:57; Admin Dose 3 UNIT; Start 10/22/18 at 21:00 Diagnostic Test (Pha) (Accu-Chek) 1 ea 02 XX Last administered on 10/25/18 02 :12; Admin Dose 1 EA; Start 10/23/18 at 02:00 Multivitamins Therapeutic (Theragran) 1 tab DAILY PO Last administered on 10/25/18 09:46; Admin Dose 1 TAB; Start 10/23/18 at 09:00 Zinc Sulfate (Zinc Sulfate) 220 mg DAILY PO Last administered on 10/25/18 09:46; Admin Dose 220 MG; Start 10/23/18 at 09:00; Stop 11/06/18 at 09:00 Ascorbic Acid (Vitamin C) 250 mg DAILY PO Last administered on 10/25/18 09:46; Admin Dose 250 MG; Start 10/23/18 at 09:00 Collagenase (Santyl) 1 applic DAILY TOP Last administered on 10/25/18at 10:36; Admin Dose 1 APPLIC; Start 10/23/18 at 11:00 Caspofungin 50 mg/ Sodium Chloride 250 ml @ 250 mls/hr Q24H IVPB Last administered on 10/24/18at 15:32; Admin Dose 250 MLS/HR; Start 10/24/18 at 14:00 Potassium Chloride/Dextrose/ Sod Cl 1,000 ml @ 70 mls/hr [id number] IV Last administered on 10/25/18at 10:53; Admin Dose 70 MLS/HR; Start 10/23/18 at 13:00 Ferric Sodium Gluconate Complex 125 mg/Sodium Chloride 110 ml @ 110 mls/hr DAILY@1300 IVPB Last administered on 10/24/18at 12:30; Admin Dose 110 MLS/HR; Start 10/24/18 at 13:00; Stop 10/28/18 at 13:59 Metronidazole 100 ml @ 100 mls/hr Q8 IVPB Last administered on 10/25/18at 12:55; Admin Dose 100 MLS/HR; Start 10/24/18 at 14:00 ALICIA HERNANDEZ Oct 25, 2018 13:23
--- NOTE | 2018-10-25 13:30 | CONS ---
Consultation Date/Type/Reason Admit Date/Time Oct 07, 2018 at 03:37 Initial Consult Date 10/10/18 Type of Consult SUBJECTIVE: Pt is awake, resting in bed, confused. No fevers. VS: stable T: 98.6 LABS: Reviewed. WBC- 12.6 Microbiology: Blood cultures negative, urine culture + MDR Kleb, repeat cx + yeast Chest x-ray on admission revealed no evidence of CHF or pneumonia. Renal ultrasound revealed no hydronephrosis and no nephrolithiasis. 3.1 x 2 x 2.1 cm hypoechoic lesion left pole of the kidney questionable neoplasm Antimicrobials: Merrem and Cancidas Physical examination: GEN: Well-developed chronically ill-appearing wasted elderly woman, who is in no distress. HENT: Head atraumatic normocephalic; neck is supple PULM: chest rise symmetrical breath sounds diminished bases. Heart: S1-S2. Abdomen soft bowel sounds present. Extremities with dependent bilateral lower extremities edema Assessment: 1. Sepsis, present on admission 2. Gram-negative melvi/yeast UTI 3. Acute on chronic anemia 4. Coronary artery disease with a history of CABG 5. Echo dense structure seen by tricuspid valve, right atrium and IVC- thrombus, vegetation versus tumor=== completed 6 weeks IV antibiotics> 6. History of renal cell carcinoma status post nephrectomy 7. Diabetes 8. R heel decub Plan: Clinically unchanged. Continue current antbx. Rt foot MRI ordered but son refusing. Arterial Doppler report noted. Podiatry recommendations and local wound care. Pain management. Requesting Provider: JAGJIT MONTES MD Date/Time of Note DATE: 10/25/18 TIME: 13:29 Exam/Review of Systems Exam Vitals Vital Signs Date Temp Pulse Resp B/P (MAP) Pulse Ox O2 O2 Flow FiO2 Time Delivery Rate 10/25/18 98.6 50 18 109/53 96 08:00 (71) 10/25/18 Room Air 05:51 10/24/18 2.0 10:25 Intake and Output 10/24/18 10/24/18 10/25/18 1515:00 23:00 07:00 IntakeIntake Total 320 ml 1525 ml 220 ml OutputOutput Total 800 ml 450 ml 50 ml BalanceBalance -480 ml 1075 ml 170 ml Results Result Diagram: 10/25/18 0732 10/25/18 0633 Results 24hrs Laboratory Tests Test 10/24/18 16:55 10/24/18 20:42 10/25/18 01:18 10/25/18 06:33 Bedside Glucose 138 275 H 255 H Sodium Level 135 Potassium Level 4.8 Chloride Level 112 H Carbon Dioxide Level 20 L Anion Gap 3 L Blood Urea Nitrogen 17 Creatinine 1.32 H Est Glomerular Filtrat Rate mL/min Glucose Level 187 Calcium Level 8.1 L Magnesium Level 1.3 L Test 10/25/18 07:32 10/25/18 08:29 10/25/18 11:54 White Blood Count 12.6 H Red Blood Count 2.67 L Hemoglobin 7.2 L Hematocrit 22.8 L Mean Corpuscular 85.4 Volume Mean Corpuscular 27.0 L Hemoglobin Mean Corpuscular 31.6 L Hemoglobin Concent Red Cell 17.9 H Distribution Width Platelet Count 249 Mean Platelet Volume 10.0 Immature 0.500 H Granulocytes % Neutrophils % 70.6 Lymphocytes % 21.2 Monocytes % 6.5 Eosinophils % 0.9 Basophils % 0.3 Nucleated Red Blood 0.0 Cells % Immature 0.060 H Granulocytes # Neutrophils # 8.9 H Lymphocytes # 2.7 Monocytes # 0.8 Eosinophils # 0.1 Basophils # 0.0 Nucleated Red Blood 0.0 Cells # Bedside Glucose 232 H 232 H Medications Medication Current Medications Allopurinol (Zyloprim) 100 mg BID PO Last administered on 10/25/18at 09:46; Admin Dose 100 MG; Start 10/07/18 at 21:00 Aspirin (Halfprin) 81 mg DAILY PO Last administered on 10/08/18at 08:14; Admin Dose 81 MG; Start 10/08/18 at 09:00; Status Hold Docusate Sodium (Colace) 100 mg TID PO Last administered on 10/25/18at 09:46; Ad min Dose 100 MG; Start 10/07/18 at 21:00 Pantoprazole (Protonix Tab) 40 mg DAILY@06 PO Last administered on 10/25/18at 05:48; Admin Dose 40 MG; Start 10/08/18 at 06:00 IV Flush (NS 3 ml) 3 ml PER PROTOCOL IV ; Start 10/07/18 at 12:30 Ondansetron HCl (Zofran Inj) 4 mg Q6H PRN IV NAUSEA/VOMITING; Start 10/07/18 at 12:30 Acetaminophen (Tylenol Tab) 650 mg Q6H PRN PO .PAIN 1-3 OR TEMP Last administered on 10/16/18 18:56; Admin Dose 650 MG; Start 10/07/18 at 12:30 Acetaminophen/ Hydrocodone Bitart ([place] (5/325)) 1 tab Q6H PRN PO .PAIN 4-6 Last administered on 10/25/18 10:52; Admin Dose 1 TAB; Start 10/07/18 at 12:30 Clonidine (Catapres) 0.1 mg BID PO Last administered on 10/16/18 08:46; Admin Dose 0.1 MG; Start 10/07/18 at 22:00; Status Hold Miscellaneous Information 1 ea NOTE XX ; Start 10/07/18 at 21:00 Glucose (Glutose) 15 gm Q15M PRN PO DECREASED GLUCOSE; Start 10/07/18 at 21:00 Glucose (Glutose) 22.5 gm Q15M PRN PO DECREASED GLUCOSE; Start 10/07/18 at 21:00 Dextrose (D50w Syringe) 25 ml Q15M PRN IV DECREASED GLUCOSE Last administered on 10/21/18 08:09; Admin Dose 25 ML; Start 10/07/18 at 21:00 Dextrose (D50w Syringe) 50 ml Q15M PRN IV DECREASED GLUCOSE; Start 10/07/18 at 21:00 Glucagon (Glucagen) 1 mg Q15M PRN IM DECREASED GLUCOSE; Start 10/07/18 at 21:00 Glucose (Glutose) 15 gm Q15M PRN BUCCAL DECREASED GLUCOSE; Start 10/07/18 at 21:00 Collagenase (Santyl) 1 applic DAILY TOP Last administered on 10/25/18at 10:35; Admin Dose 1 APPLIC; Start 10/09/18 at 19:00 Sodium Hypochlorite (Dakins Diluted ()) 1 applic DAILY TP Last administered on 10/25/18at 10:36; Admin Dose 1 APPLIC; Start 10/11/18 at 09:00 Quetiapine Fumarate (Seroquel) 25 mg BID@0900,1200 PO Last administered on 10/25/18at 12:54; Admin Dose 25 MG; Start 10/11/18 at 12:00 Quetiapine Fumarate (Seroquel) 50 mg HS PO Last administered on 10/24/18 20:44; Admin Dose 50 MG; Start 10/11/18 at 21:00 Morphine Sulfate (morphine) 2 mg Q4H PRN IV SEVERE PAIN LEVEL 7-10 Last administered on 10/22/18 21:25; Admin Dose 2 MG; Start 10/15/18 at 21:00 Collagenase (Santyl) 1 applic DAILY TOP Last administered on 10/25/18 10:35; Admin Dose 1 APPLIC; Start 10/17/18 at 12:00 Lubiprostone (Amitiza) 24 mcg BID PO Last administered on 10/25/18 09:46; Admin Dose 24 MCG; Start 10/20/18 at 21:00 Ciprofloxacin (Cipro) 500 mg BID@06,18 PO Last administered on 10/25/18 05:48; Admin Dose 500 MG; Start 10/21/18 at 18:00 Insulin Glargine (Lantus) 8 units DAILY@1200 SC Last administered on 10/25/18 12:57; Admin Dose 8 UNITS; Start 10/22/18 at 12:00 Lisinopril (Zestril) 20 mg DAILY PO Last administered on 10/25/18 09:57; Admin Dose 20 MG; Start 10/21/18 at 17:30 Hydralazine HCl (Apresoline) 10 mg Q4H PRN IV >160/95; Start 10/21/18 at 17:30 Insulin Aspart (Novolog Insulin Pen) NOVOLOG *MILD* ALGORITHM WITH MEALS BEDTIME SC Last administered on 10/25/18 11:57; Admin Dose 3 UNIT; Start 10/22/18 at 21:00 Diagnostic Test (Pha) (Accu-Chek) 1 ea 02 XX Last administered on 10/25/18 02:12; Admin Dose 1 EA; Start 10/23/18 at 02:00 Multivitamins Therapeutic (Theragran) 1 tab DAILY PO Last administered on 10/25/18 09:46; Admin Dose 1 TAB; Start 10/23/18 at 09:00 Zinc Sulfate (Zinc Sulfate) 220 mg DAILY PO Last administered on 10/25/18 09:46; Admin Dose 220 MG; Start 10/23/18 at 09:00; Stop 11/06/18 at 09:00 Ascorbic Acid (Vitamin C) 250 mg DAILY PO Last administered on 10/25/18 09:46; Admin Dose 250 MG; Start 10/23/18 at 09:00 Collagenase (Santyl) 1 applic DAILY TOP Last administered on 10/25/18at 10:36; Admin Dose 1 APPLIC; Start 10/23/18 at 11:00 Caspofungin 50 mg/ Sodium Chloride 250 ml @ 250 mls/hr Q24H IVPB Last administered on 10/24/18at 15:32; Admin Dose 250 MLS/HR; Start 10/24/18 at 14:00 Potassium Chloride/Dextrose/ Sod Cl 1,000 ml @ 70 mls/hr [id number] IV Last administered on 10/25/18 10:53; Admin Dose 70 MLS/HR; Start 10/23/18 at 13:00 Ferric Sodium Gluconate Complex 125 mg/Sodium Chloride 110 ml @ 110 mls/hr DAILY@1300 IVPB Last administered on 10/24/18at 12:30; Admin Dose 110 MLS/HR; Start 10/24/18 at 13:00; Stop 10/28/18 at 13:59 Metronidazole 100 ml @ 100 mls/hr Q8 IVPB Last administered on 10/25/18 12:55; Admin Dose 100 MLS/HR; Start 10/24/18 at 14:00 ALEM ANDRES Oct 25, 2018 13:30
[2018-10-25] MEDS: SOD FERRIC GLUC COMPLX 125 MG in SOD CHLORIDE 0.9% 100 ML IVPB SCH (13:39)
[2018-10-25] MEDS: CASPOFUNGIN 50 MG in SOD CHLORIDE 0.9% 250 ML IVPB SCH (14:56)
[2018-10-25] MEDS ORDERED: MAGNESIUM SULFATE 2 GM/50 ML 50 ML IVPB ONE (18:00)
--- NOTE | 2018-10-25 18:51 | CONS ---
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 From there we will decide on whether or not he needs adjuvant chemotherapy #Recurrent Renal Cancer -pt will need to be referred to urology at a tertiary care center for surgical resection of this mass. This appears #Diabetic foot -Right heel decubitus ulceration stage 4 -Right foot osteomyelitis -management per vascular surgery and podiatry -continue antibiotics #Sepsis 2/2 to UTI and early pneumonia -continue antibiotics #anemia; -2/2 GIB and iron deficiency -started on IV iron Patient seen in collaboration with Dr Valencia. Dw staff Consultation Date/Type/Reason Admit Date/Time Oct 07, 2018 at 03:37 Initial Consult Date 10/10/18 Type of Consult HEM/ONC Reason for Consultation COLON CA Requesting Provider: JAGJIT MONTES MD Date/Time of Note DATE: 10/25/18 TIME: 18:51 Exam/Review of Systems Exam Vitals Vital Signs Date Temp Pulse Resp B/P (MAP) Pulse Ox O2 O2 Flow FiO2 Time Delivery Rate 10/25/18 96.8 55 18 111/53 65 Room Air 16:20 (72) 10/24/18 2.0 10:25 Intake and Output 10/24/18 10/24/18 10/25/18 1515:00 23:00 07:00 IntakeIntake Total 320 ml 1525 ml 220 ml OutputOutput Total 800 ml 450 ml 50 ml BalanceBalance -480 ml 1075 ml 170 ml Constitutional: alert, well developed Psych: nl mood/affect Head: normocephalic Eyes: nl lids, nl sclera ENMT: nl external ears & nose Neck: non-tender Respiratory: clear to auscultation Cardiovascular: nl pulses, other (S1S2) Gastrointestinal: soft, non-tender Musculoskeletal: joint tenderness, muscle weakness Extremities: normal pulses Neurological: other (alert/reponsive) Skin: nl turgor Results Result Diagram: 10/25/18 0732 10/25/18 0633 Results 24hrs Laboratory Tests Test 10/24/18 20:42 10/25/18 01:18 10/25/18 06:33 10/25/18 07:32 Bedside Glucose 275 H 255 H Sodium Level 135 Potassium Level 4.8 Chloride Level 112 H Carbon Dioxide Level 20 L Anion Gap 3 L Blood Urea Nitrogen 17 Creatinine 1.32 H Est Glomerular Filtrat Rate mL/min Glucose Level 187 Calcium Level 8.1 L Magnesium Level 1.3 L White Blood Count 12.6 H Red Blood Count 2.67 L Hemoglobin 7.2 L Hematocrit 22.8 L Mean Corpuscular 85.4 Volume Mean Corpuscular 27.0 L Hemoglobin Mean Corpuscular 31.6 L Hemoglobin Concent Red Cell 17.9 H Distribution Width Platelet Count 249 Mean Platelet Volume 10.0 Immature 0.500 H Granulocytes % Neutrophils % 70.6 Lymphocytes % 21.2 Monocytes % 6.5 Eosinophils % 0.9 Basophils % 0.3 Nucleated Red Blood 0.0 Cells % Immature 0.060 H Granulocytes # Neutrophils # 8.9 H Lymphocytes # 2.7 Monocytes # 0.8 Eosinophils # 0.1 Basophils # 0.0 Nucleated Red Blood 0.0 Cells # Test 10/25/18 08:29 10/25/18 11:54 10/25/18 17:37 Bedside Glucose 232 H 232 H 251 H Medications Medication Current Medications Allopurinol (Zyloprim) 100 mg BID PO Last administered on 10/25/18at 09:46; Admin Dose 100 MG; Start 10/07/18 at 21:00 Aspirin (Halfprin) 81 mg DAILY PO Last administered on 10/08/18at 08:14; Admin Dose 81 MG; Start 10/08/18 at 09:00; Status Hold Docusate Sodium (Colace) 100 mg TID PO Last administered on 10/25/18at 09:46; Admin Dose 100 MG; Start 10/07/18 at 21:00 Pantoprazole (Protonix Tab) 40 mg DAILY@06 PO Last administered on 10/25/18at 05:48; Admin Dose 40 MG; Start 10/08/18 at 06:00 IV Flush (NS 3 ml) 3 ml PER PROTOCOL IV ; Start 10/07/18 at 12:30 Ondansetron HCl (Zofran Inj) 4 mg Q6H PRN IV NAUSEA/VOMITING; Start 10/07/18 at 12:30 Acetaminophen (Tylenol Tab) 650 mg Q6H PRN PO .PAIN 1-3 OR TEMP Last administered on 10/16/18 18:56; Admin Dose 650 MG; Start 10/07/18 at 12:30 Acetaminophen/ Hydrocodone Bitart ([place] (5/325)) 1 tab Q6H PRN PO .PAIN 4-6 Last administered on 10/25/18 10:52; Admin Dose 1 TAB; Start 10/07/18 at 12:30 Clonidine (Catapres) 0.1 mg BID PO Last administered on 10/16/18 08:46; Admin Dose 0.1 MG; Start 10/07/18 at 22:00; Status Hold Miscellaneous Information 1 ea NOTE XX ; Start 10/07/18 at 21:00 Glucose (Glutose) 15 gm Q15M PRN PO DECREASED GLUCOSE; Start 10/07/18 at 21:00 Glucose (Glutose) 22.5 gm Q15M PRN PO DECREASED GLUCOSE; Start 10/07/18 at 21:00 Dextrose (D50w Syringe) 25 ml Q15M PRN IV DECREASED GLUCOSE Last administered on 10/21/18 08:09; Admin Dose 25 ML; Start 10/07/18 at 21:00 Dextrose (D50w Syringe) 50 ml Q15M PRN IV DECREASED GLUCOSE; Start 10/07/18 at 21:00 Glucagon (Glucagen) 1 mg Q15M PRN IM DECREASED GLUCOSE; Start 10/07/18 at 21:00 Glucose (Glutose) 15 gm Q15M PRN BUCCAL DECREASED GLUCOSE; Start 10/07/18 at 21:00 Collagenase (Santyl) 1 applic DAILY TOP Last administered on 10/25/18 10:35; Admin Dose 1 APPLIC; Start 10/09/18 at 19:00 Sodium Hypochlorite (Dakins Diluted ()) 1 applic DAILY TP Last administered on 10/25/18 10:36; Admin Dose 1 APPLIC; Start 10/11/18 at 09:00 Quetiapine Fumarate (Seroquel) 25 mg BID@0900,1200 PO Last administered on 10/25/18 12:54; Admin Dose 25 MG; Start 10/11/18 at 12:00 Quetiapine Fumarate (Seroquel) 50 mg HS PO Last administered on 10/24/18at 20:44; Admin Dose 50 MG; Start 10/11/18 at 21:00 Morphine Sulfate (morphine) 2 mg Q4H PRN IV SEVERE PAIN LEVEL 7-10 Last administered on 10/22/18 21:25; Admin Dose 2 MG; Start 10/15/18 at 21:00 Collagenase (Santyl) 1 applic DAILY TOP Last administered on 10/25/18 10:35; Admin Dose 1 APPLIC; Start 10/17/18 at 12:00 Lubiprostone (Amitiza) 24 mcg BID PO Last administered on 10/25/18 09:46; Admin Dose 24 MCG; Start 10/20/18 at 21:00 Ciprofloxacin (Cipro) 500 mg BID@06,18 PO Last administered on 10/25/18 18:28; Admin Dose 500 MG; Start 10/21/18 at 18:00 Insulin Glargine (Lantus) 8 units DAILY@1200 SC Last administered on 10/25/18 12:57; Admin Dose 8 UNITS; Start 10/22/18 at 12:00 Lisinopril (Zestril) 20 mg DAILY PO Last administered on 10/25/18 09:57; Admin Dose 20 MG; Start 10/21/18 at 17:30 Hydralazine HCl (Apresoline) 10 mg Q4H PRN IV >160/95; Start 10/21/18 at 17:30 Insulin Aspart (Novolog Insulin Pen) NOVOLOG *MILD* ALGORITHM WITH MEALS BEDTIME SC Last administered on 10/25/18 18:29; Admin Dose 3 UNIT; Start 10/22/18 at 21:00 Diagnostic Test (Pha) (Accu-Chek) 1 ea 02 XX Last administered on 10/25/18 02:12; Admin Dose 1 EA; Start 10/23/18 at 02:00 Multivitamins Therapeutic (Theragran) 1 tab DAILY PO Last administered on 10/25/18 09:46; Admin Dose 1 TAB; Start 10/23/18 at 09:00 Zinc Sulfate (Zinc Sulfate) 220 mg DAILY PO Last administered on 10/25/18 0 9:46; Admin Dose 220 MG; Start 10/23/18 at 09:00; Stop 11/06/18 at 09:00 Ascorbic Acid (Vitamin C) 250 mg DAILY PO Last administered on 10/25/18 09:46; Admin Dose 250 MG; Start 10/23/18 at 09:00 Collagenase (Santyl) 1 applic DAILY TOP Last administered on 10/25/18at 10:36; Admin Dose 1 APPLIC; Start 10/23/18 at 11:00 Caspofungin 50 mg/ Sodium Chloride 250 ml @ 250 mls/hr Q24H IVPB Last administ ered on 10/25/18at 14:56; Admin Dose 250 MLS/HR; Start 10/24/18 at 14:00 Potassium Chloride/Dextrose/ Sod Cl 1,000 ml @ 70 mls/hr [id number] IV Last administered on 10/25/18at 10:53; Admin Dose 70 MLS/HR; Start 10/23/18 at 13:00 Ferric Sodium Gluconate Complex 125 mg/Sodium Chloride 110 ml @ 110 mls/hr DAILY@1300 IVPB Last administered on 10/25/18at 13:39; Admin Dose 110 MLS/HR; Start 10/24/18 at 13:00; Stop 10/28/18 at 13:59 Metronidazole 100 ml @ 100 mls/hr Q8 IVPB Last administered on 10/25/18at 12:55; Admin Dose 100 MLS/HR; Start 10/24/18 at 14:00 Magnesium Sulfate 50 ml @ 25 mls/hr ONCE ONCE IVPB Last administered on 10/25/18 18:25; Admin Dose 25 MLS/HR; Start 10/25/18 at 18:00; Stop 10/25/18 at 19:59 ELIZA HECTOR Oct 25, 2018 18:51
--- NOTE | 2018-10-25 23:13 | PN ---
"Date/Time of Note Date/Time of Note DATE: 10/25/18 TIME: 23:13 Assessment/Plan Lines/Catheters IV Catheter Type (from Nrsg): Mid Line [place] in Place (from Nrsg): Yes Assessment/Plan Chief Complaint/Hosp Course 1. Right buttock wound; Foot wound with osteo; right buttock wound healing -debridement of right buttock wound as needed -continue local care -frequent turning and off-loading -low air loss mattress -vitamin c -short term zinc -optimize nutrition -foot wounds per podiatry> status post debridement currently with wound VAC -calf wound per vascular 2. 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 Bowel function. Family is not sure if they want surgery for her. More discussions to be had -Oncology recommendations noted -Further discussions with family members 3. BRANDON: Resolved; hypoechoic lesion left kidney, possible neoplasm; hx of renal ca and nephrectomy; CT noted with possible recurrent left kidney malignancy -Monitor 4. Microcytic hypochromic anemia: sp prbc tx; colonoscopy pending today -monitor -transfuse as needed 5. Obesity bmi 31 -diet and exercise optimization -encourage weight loss 6. Poor appetite: -supportive -treat infections 7. Hepatic steatosis: -nutrition and weight optimization -medical fu 8. Gastritis: -PPI 9. Constipation: now + bowel function -per gi 10. Diabetes with hypoglycemic episode -glucose optimization - med adjustment per medical team 11. UTI: -abx per sensitivity -frequent bladder emptying/cath care 12. Renal cell carcinoma recommended to tertiary ctr Thank you Subjective 24 Hr Interval Summary Comfortable. No pain. + Bowel function. No fevers, labored breathing, congested cough, vomiting, diarrhea, seizure, rash. No visual or neuro changes. Non ambulatory. Family not sure if want surgery. Exam/Review of Systems Vital Signs Vitals Vital Signs Date Temp Pulse Resp B/P (MAP) Pulse Ox O2 O2 Flow FiO2 Time Delivery Rate 10/25/18 98.2 84 18 105/52 94 Room Air 20:16 (69) 10/24/18 2.0 10:25 Intake and Output 10/24/18 10/24/18 10/25/18 1515:00 23:00 07:00 IntakeIntake Total 320 ml 1525 ml 220 ml OutputOutput Total 800 ml 450 ml 50 ml BalanceBalance -480 ml 1075 ml 170 ml Exam Free Text/Dictation Constitutional: responsive, nad, obese No oriented (confused) Psych: flat affect Head: normocephalic, atraumatic Eyes: nl conjunctiva, EOMI, nl lids, nl sclera ENMT: nl external ears & nose, nl nasal mucosa & septum, mucosa pink and moist Neck: supple, non-tender Respiratory: normal air movement; No congested cough Cardiovascular: regular rate and rhythm, nl pulses; No edema Gastrointestinal: soft, non-tender; obese No distended, No rebound or guarding Genitourinary - Female: nl external genitalia Musculoskeletal: nl extremities to inspection, muscle weakness (gen weakness) Extremities: normal pulses; No edema, No pitting pedal edema Neurological: nl speech; No nl mental status (forgetful), No nl strength (gen weakness), non ambulatory Skin: other (Multiple wounds: right buttock: clean, granulating, no periwound erythema/drainage/odor | Left calf:min slough, wrapped | Bilateral foot wounds; r foot w wound vac); No rash or lesions Results Result Diagram: 10/25/18 0732 10/25/18 0633 MARINA WADE MD Oct 25, 2018 23:13"
[2018-10-26 02:00] VITALS: BP 108/53; PULSE 85; RESP 18
[2018-10-26] MEDS: ACCU-CHEK XX SCH (02:00)
[2018-10-26] MEDS: PANTOPRAZOLE (EC) 40 MG TAB PO SCH (05:50)
[2018-10-26] MEDS: CIPROFLOXACIN 500 MG TAB PO SCH ×2 (05:50→17:07)
[2018-10-26] MEDS: metroNIDAZOLE 500 MG/NS (PMX) 100 ML IVPB SCH ×3 (05:50→21:41)
[2018-10-26 08:14] VITALS: BP 128/81; PULSE 66; RESP 15
[2018-10-26] MEDS: INSULIN ASPART [NOVOLOG] 3 ML PEN SC SCH ×4 (08:36→20:42)
[2018-10-26] MEDS: LUBIPROSTONE 24 MCG CAP PO SCH ×2 (08:38→20:39)
[2018-10-26] MEDS: ALLOPURINOL 100 MG TAB PO SCH ×2 (08:38→20:39)
[2018-10-26] MEDS: DOCUSATE SODIUM 100 MG CAP PO SCH ×3 (08:38→20:39)
[2018-10-26] MEDS: ZINC SULFATE 220 MG CAP PO SCH (08:39)
[2018-10-26] MEDS: ASCORBIC ACID 250 MG TAB PO SCH (08:45)
[2018-10-26] MEDS: MULTIVITAMINS THERAPEUTIC TAB PO SCH (08:45)
[2018-10-26] MEDS: LISINOPRIL 20 MG TAB PO SCH (08:46)
[2018-10-26] MEDS: QUETIAPINE 25 MG TAB PO SCH ×3 (08:47→20:39)
[2018-10-26] MEDS: DAKINS 0.0125%(1/40) 473 ML SOLUTION TP SCH (08:48)
[2018-10-26] MEDS: COLLAGENASE 5 GM (UD JAR) TOP SCH ×3 (08:48)
--- NOTE | 2018-10-26 09:49 | CONS ---
Assessment/Plan Assessment/Plan Assessment/Plan (Daily) Assessment 1. Urinary tract infection. 2. Sepsis. -gram positive rods in foot wound cx. -pos urine cx 3. Status post coronary artery bypass graft. 4. Peripheral vascular disease. 5. Atrial fibrillation. 6. Status post surgery for renal cell carcinoma 8 years ago. 7. Diabetes. 8. Hypertension. 9. Severe anemia. -IV iron 10. Transaminitis -elevated ALT/AST -improving -CBD 7mm, t bili wnl. 11. Elevated CEA: 24.1 12. Chronic gastritis 13. S/P EGD 10/13 14. Fatty liver with possible hepatocellular disease noted on US 15. 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 Charisse ink was injected. surgery f/u for consideration of resection of adenoma of the transverse colon oncology f/u for management of transverse colon cancer Dr. Winkler to resume care of this patient from GI perspective tomorrow Consultation Date/Type/Reason Admit Date/Time Oct 07, 2018 at 03:37 Initial Consult Date 10/24/18 Type of Consult GI Requesting Provider: JAGJIT MONTES MD Date/Time of Note DATE: 10/26/18 TIME: 09:47 24 HR Interval Summary Free Text/Dictation sleeping Exam/Review of Systems Exam Vitals Vital Signs Date Temp Pulse Resp B/P (MAP) Pulse Ox O2 O2 Flow FiO2 Time Delivery Rate 10/26/18 98.9 66 15 128/81 97 08:14 (97) 10/25/18 Room Air 20:16 10/24/18 2.0 10:25 Intake and Output 10/25/18 10/25/18 10/26/18 1515:00 23:00 07:00 IntakeIntake Total 940 ml 1010 ml 610 ml OutputOutput Total 300 ml 150 ml BalanceBalance 640 ml 1010 ml 460 ml Head: normocephalic, atraumatic Eyes: nl conjunctiva, nl lids ENMT: nl external ears & nose, nl nasal mucosa & septum Respiratory: clear to auscultation, normal air movement Cardiovascular: regular rate and rhythm, nl pulses Gastrointestinal: soft, non-tender, bowel sounds Results Result Diagram: 10/25/18 0732 10/25/18 0633 Results 24hrs Laboratory Tests Test 10/25/18 11:54 10/25/18 17:37 10/25/18 21:52 10/25/18 21:53 Bedside Glucose 232 H 251 H 261 H 244 H Test 10/26/18 02:11 10/26/18 07:54 Bedside Glucose 168 147 Medications Medication Current Medications Allopurinol (Zyloprim) 100 mg BID PO Last administered on 10/26/18 08:38; Admin Dose 100 MG; Start 10/07/18 at 21:00 Aspirin (Halfprin) 81 mg DAILY PO Last administered on 10/08/18 08:14; Admin Dose 81 MG; Start 10/08/18 at 09:00; Status Hold Docusate Sodium (Colace) 100 mg TID PO Last administered on 10/26/18 08:38; Admin Dose 100 MG; Start 10/07/18 at 21:00 Pantoprazole (Protonix Tab) 40 mg DAILY@06 PO Last administered on 10/26/18at 05:50; Admin Dose 40 MG; Start 10/08/18 at 06:00 IV Flush (NS 3 ml) 3 ml PER PROTOCOL IV ; Start 10/07/18 at 12:30 Ondansetron HCl (Zofran Inj) 4 mg Q6H PRN IV NAUSEA/VOMITING; Start 10/07/18 at 12:30 Acetaminophen (Tylenol Tab) 650 mg Q6H PRN PO .PAIN 1-3 OR TEMP Last administered on 10/16/18at 18:56; Admin Dose 650 MG; Start 10/07/18 at 12:30 Acetaminophen/ Hydrocodone Bitart ([place] (5/325)) 1 tab Q6H PRN PO .PAIN 4-6 Last administered on 10/25/18at 10:52; Admin Dose 1 TAB; Start 10/07/18 at 12:30 Clonidine (Catapres) 0.1 mg BID PO Last administered on 10/16/18 08:46; Admin Dose 0.1 MG; Start 10/07/18 at 22:00; Status Hold Miscellaneous Information 1 ea NOTE XX ; Start 10/07/18 at 21:00 Glucose (Glutose) 15 gm Q15M PRN PO DECREASED GLUCOSE; Start 10/07/18 at 21:00 Glucose (Glutose) 22.5 gm Q15M PRN PO DECREASED GLUCOSE; Start 10/07/18 at 21:00 Dextrose (D50w Syringe) 25 ml Q15M PRN IV DECREASED GLUCOSE Last administered on 10/21/18 08:09; Admin Dose 25 ML; Start 10/07/18 at 21:00 Dextrose (D50w Syringe) 50 ml Q15M PRN IV DECREASED GLUCOSE; Start 10/07/18 at 21:00 Glucagon (Glucagen) 1 mg Q15M PRN IM DECREASED GLUCOSE; Start 10/07/18 at 21:00 Glucose (Glutose) 15 gm Q15M PRN BUCCAL DECREASED GLUCOSE; Start 10/07/18 at 21:00 Collagenase (Santyl) 1 applic DAILY TOP Last administered on 10/26/18 08:48; Admin Dose 1 APPLIC; Start 10/09/18 at 19:00 Sodium Hypochlorite (Dakins Diluted ()) 1 applic DAILY TP Last administered on 10/26/18 08:48; Admin Dose 1 APPLIC; Start 10/11/18 at 09:00 Quetiapine Fumarate (Seroquel) 25 mg BID@0900,1200 PO Last administered on 10/26/18 08:47; Admin Dose 25 MG; Start 10/11/18 at 12:00 Quetiapine Fumarate (Seroquel) 50 mg HS PO Last administered on 10/25/18 20:11; Admin Dose 50 MG; Start 10/11/18 at 21:00 Morphine Sulfate (morphine) 2 mg Q4H PRN IV SEVERE PAIN LEVEL 7-10 Last admini stered on 10/22/18 21:25; Admin Dose 2 MG; Start 10/15/18 at 21:00 Collagenase (Santyl) 1 applic DAILY TOP Last administered on 10/26/18 08:48; Admin Dose 1 APPLIC; Start 10/17/18 at 12:00 Lubiprostone (Amitiza) 24 mcg BID PO Last administered on 10/26/18 08:38; Admin Dose 24 MCG; Start 10/20/18 at 21:00 Ciprofloxacin (Cipro) 500 mg BID@06,18 PO Last administered on 10/26/18 05:50; Admin Dose 500 MG; Start 10/21/18 at 18:00 Insulin Glargine (Lantus) 8 units DAILY@1200 SC Last administered on 10/25/18 12:57; Admin Dose 8 UNITS; Start 10/22/18 at 12:00 Lisinopril (Zestril) 20 mg DAILY PO Last administered on 10/26/18 08:46; Admin Dose 20 MG; Start 10/21/18 at 17:30 Hydralazine HCl (Apresoline) 10 mg Q4H PRN IV >160/95; Start 10/21/18 at 17:30 Insulin Aspart (Novolog Insulin Pen) NOVOLOG *MILD* ALGORITHM WITH MEALS BEDTIME SC Last administered on 10/26/18 08:36; Admin Dose 1 UNIT; Start 10/22/18 at 21:00 Diagnostic Test (Pha) (Accu-Chek) 1 ea 02 XX Last administered on 10/25/18 02:12; Admin Dose 1 EA; Start 10/23/18 at 02:00 Multivitamins Therapeutic (Theragran) 1 tab DAILY PO Last administered on 10/26/18 08:45; Admin Dose 1 TAB; Start 10/23/18 at 09:00 Zinc Sulfate (Zinc Sulfate) 220 mg DAILY PO Last administered on 10/26/18 08:39; Admin Dose 220 MG; Start 10/23/18 at 09:00; Stop 11/06/18 at 09:00 Ascorbic Acid (Vitamin C) 250 mg DAILY PO Last administered on 10/26/18 08:45; Admin Dose 250 MG; Start 10/23/18 at 09:00 Collagenase (Santyl) 1 applic DAILY TOP Last administered on 10/26/18 08:48; Admin Dose 1 APPLIC; Start 10/23/18 at 11:00 Caspofungin 50 mg/ Sodium Chloride 250 ml @ 250 mls/hr Q24H IVPB Last administered on 10/25/18 14:56; Admin Dose 250 MLS/HR; Start 10/24/18 at 14:00 Potassium Chloride/Dextrose/ Sod Cl 1,000 ml @ 70 mls/hr [id number] IV Last administered on 10/25/18 10:53; Admin Dose 70 MLS/HR; Start 10/23/18 at 13:00 Ferric Sodium Gluconate Complex 125 mg/Sodium Chloride 110 ml @ 110 mls/hr DAILY@1300 IVPB Last administered on 10/25/18 13:39; Admin Dose 110 MLS/HR; Start 10/24/18 at 13:00; Stop 10/28/18 at 13:59 Metronidazole 100 ml @ 100 mls/hr Q8 IVPB Last administered on 10/26/18at 05:50; Admin Dose 100 MLS/HR; Start 10/24/18 at 14:00 MAGALIS HUDDLESTON MD Oct 26, 2018 09:49
[2018-10-26] MEDS: D5W-0.45 NACL + KCL 20 MEQ 1,000 ML IV SCH (10:15)
[2018-10-26] MEDS: ACETAMINOPHEN 325 MG TAB PO PRN (10:31)
[2018-10-26] MEDS: SOD FERRIC GLUC COMPLX 125 MG in SOD CHLORIDE 0.9% 100 ML IVPB SCH (12:15)
[2018-10-26] MEDS: INSULIN GLARGINE [LANTus] (100 UNITS/ML) SYG SC SCH (12:15)
--- NOTE | 2018-10-26 13:04 | PN ---
Date/Time of Note Date/Time of Note DATE: 10/26/18 TIME: 13:04 Assessment/Plan VTE Prophylaxis Risk score (from [facility])>0 risk: 8 SCD applied (from [facility]): No SCD contraindicated: other Pharmacological prophylaxis: LMWH Lines/Catheters IV [facility] ([facility] Mid Line Urinary Cath still in place: Yes Reason Cath still needed: skin wounds contaminated by urine Assessment/Plan Hospital Course -Status post colonoscopy with notion of ulcerated lesions consistent with malignancy. Pathology revealed well-differentiated carcinoma. Dr. Valencia is asked to see patient in oncology consultation. -Chronic gastritis per EGD, continue PPI. -Anemia, history of emesis at home and loss of appetite. Dr. Winkler is following in gastroenterology consultation. Colonoscopy recommended however patient is unable to take p.o. prep, patient's son refused NG tube placement. Patient is not able to tolerate Gastrografin enema. -Sepsis secondary to urinary tract infection and possible early pneumonia, resolving. Continue antibiotics per ID. Dr. Elias is following in infection disease consultation. -UTI. Status post treatment with antibiotics. -Hyperkalemia, resolved, status post treatment -Acute kidney injury, continue gentle hydration, monitor BUN and creatinine. Dr. Arreaga is following in nephrology consultation. -Hypertension -Systolic congestive heart failure. Dr. Chávez is following in cardiology consultation. -Cardiomyopathy with ejection fraction 50% -Atrial fibrillation, patient did not tolerate anticoagulation in the past due to bleeding and anemia, patient was on aspirin which is currently held due sig nificant drop in hemoglobin. -Coronary artery disease, status post CABG -Diabetes mellitus type 2, continue Lantus and pre-meal NovoLog. -History of endocarditis, status post treatment -Sacral, right foot, and left garcia wounds present on admission. Continue current care per wound care recommendations. -Right heel wound with early osteomyelitis, status post debridement and application of allograft and wound VAC on 10/15/2018, Dr. Garland is following and podiatry consultation. Continue antibiotics per ID. -History of left femoral artery thrombectomy, left garcia open wound. Continue current wound care. Dr. Dawson is following in vascular surgery consultation. No inpatient procedures planned. Result Diagram: 10/25/18 0732 10/25/18 0633 Results 24hrs Laboratory Tests Test 10/25/18 17:37 10/25/18 21:52 10/25/18 21:53 10/26/18 02:11 Bedside Glucose 251 H 261 H 244 H 168 Test 10/26/18 07:54 10/26/18 11:54 Bedside Glucose 147 189 Subjective 24 Hr Interval Summary Free Text/Dictation Patient has no complaints Exam/Review of Systems Exam Vitals Vital Signs Date Temp Pulse Resp B/P (MAP) Pulse Ox O2 O2 Flow FiO2 Time Delivery Rate 10/26/18 98.9 66 15 128/81 97 08:14 (97) 10/25/18 Room Air 20:16 10/24/18 2.0 10:25 Intake and Output 10/25/18 10/25/18 10/26/18 1515:00 23:00 07:00 IntakeIntake Total 940 ml 1010 ml 610 ml OutputOutput Total 300 ml 150 ml BalanceBalance 640 ml 1010 ml 460 ml Constitutional: well developed Head: normocephalic, atraumatic Neck: supple Respiratory: diminished breath sounds Cardiovascular: regular rate and rhythm Gastrointestinal: soft, non-tender Extremities: normal pulses Results Results 24hrs Laboratory Tests Test 10/25/18 17:37 10/25/18 21:52 10/25/18 21:53 10/26/18 02:11 Bedside Glucose 251 H 261 H 244 H 168 Test 10/26/18 07:54 10/26/18 11:54 Bedside Glucose 147 189 Medications Medication Current Medications Allopurinol (Zyloprim) 100 mg BID PO Last administered on 10/26/18at 08:38; Admin Dose 100 MG; Start 10/07/18 at 21:00 Aspirin (Halfprin) 81 mg DAILY PO Last administered on 10/08/18at 08:14; Admin Dose 81 MG; Start 10/08/18 at 09:00; Status Hold Docusate Sodium (Colace) 100 mg TID PO Last administered on 10/26/18at 12:15; Admin Dose 100 MG; Start 10/07/18 at 21:00 Pantoprazole (Protonix Tab) 40 mg DAILY@06 PO Last administered on 10/26/18at 05:50; Admin Dose 40 MG; Start 10/08/18 at 06:00 IV Flush (NS 3 ml) 3 ml PER PROTOCOL IV ; Start 10/07/18 at 12:30 Ondansetron HCl (Zofran Inj) 4 mg Q6H PRN IV NAUSEA/VOMITING; Start 10/07/18 at 12:30 Acetaminophen (Tylenol Tab) 650 mg Q6H PRN PO .PAIN 1-3 OR TEMP Last admin istered on 10/26/18 10:31; Admin Dose 650 MG; Start 10/07/18 at 12:30 Acetaminophen/ Hydrocodone Bitart ([place] (5/325)) 1 tab Q6H PRN PO .PAIN 4-6 Last administered on 10/25/18 10:52; Admin Dose 1 TAB; Start 10/07/18 at 12:30 Clonidine (Catapres) 0.1 mg BID PO Last administered on 10/16/18 08:46; Admin Dose 0.1 MG; Start 10/07/18 at 22:00; Status Hold Miscellaneous Information 1 ea NOTE XX ; Start 10/07/18 at 21:00 Glucose (Glutose) 15 gm Q15M PRN PO DECREASED GLUCOSE; Start 10/07/18 at 21:00 Glucose (Glutose) 22.5 gm Q15M PRN PO DECREASED GLUCOSE; Start 10/07/18 at 21:00 Dextrose (D50w Syringe) 25 ml Q15M PRN IV DECREASED GLUCOSE Last administered on 10/21/18 08:09; Admin Dose 25 ML; Start 10/07/18 at 21:00 Dextrose (D50w Syringe) 50 ml Q15M PRN IV DECREASED GLUCOSE; Start 10/07/18 at 21:00 Glucagon (Glucagen) 1 mg Q15M PRN IM DECREASED GLUCOSE; Start 10/07/18 at 21:00 Glucose (Glutose) 15 gm Q15M PRN BUCCAL DECREASED GLUCOSE; Start 10/07/18 at 21:00 Collagenase (Santyl) 1 applic DAILY TOP Last administered on 10/26/18 08:48; Admin Dose 1 APPLIC; Start 10/09/18 at 19:00 Sodium Hypochlorite (Dakins Diluted ()) 1 applic DAILY TP Last administered on 10/26/18 08:48; Admin Dose 1 APPLIC; Start 10/11/18 at 09:00 Quetiapine Fumarate (Seroquel) 25 mg BID@0900,1200 PO Last administered on 10/26/18 08:47; Admin Dose 25 MG; Start 10/11/18 at 12:00 Quetiapine Fumarate (Seroquel) 50 mg HS PO Last administered on 10/25/18 20:11; Admin Dose 50 MG; Start 10/11/18 at 21:00 Morphine Sulfate (morphine) 2 mg Q4H PRN IV SEVERE PAIN LEVEL 7-10 Last administered on 10/22/18 21:25; Admin Dose 2 MG; Start 10/15/18 at 21:00 Collagenase (Santyl) 1 applic DAILY TOP Last administered on 10/26/18 08:48; Admin Dose 1 APPLIC; Start 10/17/18 at 12:00 Lubiprostone (Amitiza) 24 mcg BID PO Last administered on 10/26/18 08:38; Admin Dose 24 MCG; Start 10/20/18 at 21:00 Ciprofloxacin (Cipro) 500 mg BID@06,18 PO Last administered on 10/26/18 05:50; Admin Dose 500 MG; Start 10/21/18 at 18:00 Insulin Glargine (Lantus) 8 units DAILY@1200 SC Last administered on 10/26/18 12:15; Admin Dose 8 UNITS; Start 10/22/18 at 12:00 Lisinopril (Zestril) 20 mg DAILY PO Last administered on 10/26/18 08:46; Admin Dose 20 MG; Start 10/21/18 at 17:30 Hydralazine HCl (Apresoline) 10 mg Q4H PRN IV >160/95; Start 10/21/18 at 17:30 Insulin Aspart (Novolog Insulin Pen) NOVOLOG *MILD* ALGORITHM WITH MEALS BEDTIME SC Last administered on 10/26/18 12:16; Admin Dose 2 UNIT; Start 10/22/18 at 21:00 Diagnostic Test (Pha) (Accu-Chek) 1 ea 02 XX Last administered on 10/25/18 02:12; Admin Dose 1 EA; Start 10/23/18 at 02:00 Multivitamins Therapeutic (Theragran) 1 tab DAILY PO Last administered on 10/26/18 08:45; Admin Dose 1 TAB; Start 10/23/18 at 09:00 Zinc Sulfate (Zinc Sulfate) 220 mg DAILY PO Last administered on 10/26/18 08:39; Admin Dose 220 MG; Start 10/23/18 at 09:00; Stop 11/06/18 at 09:00 Ascorbic Acid (Vitamin C) 250 mg DAILY PO Last administered on 10/26/18at 08:45; Admin Dose 250 MG; Start 10/23/18 at 09:00 Collagenase (Santyl) 1 applic DAILY TOP Last administered on 10/26/18at 08:48; Admin Dose 1 APPLIC; Start 10/23/18 at 11:00 Caspofungin 50 mg/ Sodium Chloride 250 ml @ 250 mls/hr Q24H IVPB Last administered on 10/25/18at 14:56; Admin Dose 250 MLS/HR; Start 10/24/18 at 14:00 Ferric Sodium Gluconate Complex 125 mg/Sodium Chloride 110 ml @ 110 mls/hr DAILY@1300 IVPB Last administered on 10/26/18at 12:15; Admin Dose 110 MLS/HR; Start 10/24/18 at 13:00; Stop 10/28/18 at 13:59 Metronidazole 100 ml @ 100 mls/hr Q8 IVPB Last administered on 10/26/18at 05:50; Admin Dose 100 MLS/HR; Start 10/24/18 at 14:00 ALICIA HERNANDEZ Oct 26, 2018 13:04
--- NOTE | 2018-10-26 13:44 | CONS ---
Consultation Date/Type/Reason Admit Date/Time Oct 07, 2018 at 03:37 Initial Consult Date 10/10/18 Type of Consult SUBJECTIVE: Pt is awake, resting in bed, confused. No fevers. VS: stable T: 98.9 LABS: Reviewed. Microbiology: Blood cultures negative, urine culture + MDR Kleb, repeat cx + yeast Chest x-ray on admission revealed no evidence of CHF or pneumonia. Renal ultrasound revealed no hydronephrosis and no nephrolithiasis. 3.1 x 2 x 2.1 cm hypoechoic lesion left pole of the kidney questionable neoplasm Antimicrobials: Merrem and Cancidas Physical examination: GEN: Well-developed chronically ill-appearing wasted elderly woman, who is in no distress. HENT: Head atraumatic normocephalic; neck is supple PULM: chest rise symmetrical breath sounds diminished bases. Heart: S1-S2. Abdomen soft bowel sounds present. Extremities with dependent bilateral lower extremities edema Assessment: 1. Sepsis, present on admission 2. Gram-negative melvi/yeast UTI 3. Acute on chronic anemia 4. Coronary artery disease with a history of CABG 5. Echo dense structure seen by tricuspid valve, right atrium and IVC- thrombus, vegetation versus tumor=== completed 6 weeks IV antibiotics> 6. History of renal cell carcinoma status post nephrectomy 7. Diabetes 8. R heel decub Plan: Clinically unchanged. Continue current antbx. Rt foot MRI ordered but son refusing. Podiatry recommendations and local wound care. Pain management. Requesting Provider: JAGJIT MONTES MD Date/Time of Note DATE: 10/26/18 TIME: 13:44 Exam/Review of Systems Exam Vitals Vital Signs Date Temp Pulse Resp B/P (MAP) Pulse Ox O2 O2 Flow FiO2 Time Delivery Rate 10/26/18 98.9 66 15 128/81 97 08:14 (97) 10/25/18 Room Air 20:16 10/24/18 2.0 10:25 Intake and Output 10/25/18 10/25/18 10/26/18 1515:00 23:00 07:00 IntakeIntake Total 940 ml 1010 ml 610 ml OutputOutput Total 300 ml 150 ml BalanceBalance 640 ml 1010 ml 460 ml Results Result Diagram: 10/25/18 0732 10/25/18 0633 Results 24hrs Laboratory Tests Test 10/25/18 17:37 10/25/18 21:52 10/25/18 21:53 10/26/18 02:11 Bedside Glucose 251 H 261 H 244 H 168 Test 10/26/18 07:54 10/26/18 11:54 Bedside Glucose 147 189 Medications Medication Current Medications Allopurinol (Zyloprim) 100 mg BID PO Last administered on 10/26/18 08:38; Admin Dose 100 MG; Start 10/07/18 at 21:00 Aspirin (Halfprin) 81 mg DAILY PO Last administered on 10/08/18at 08:14; Admin Dose 81 MG; Start 10/08/18 at 09:00; Status Hold Docusate Sodium (Colace) 100 mg TID PO Last administered on 10/26/18at 12:15; Ad min Dose 100 MG; Start 10/07/18 at 21:00 Pantoprazole (Protonix Tab) 40 mg DAILY@06 PO Last administered on 10/26/18at 05:50; Admin Dose 40 MG; Start 10/08/18 at 06:00 IV Flush (NS 3 ml) 3 ml PER PROTOCOL IV ; Start 10/07/18 at 12:30 Ondansetron HCl (Zofran Inj) 4 mg Q6H PRN IV NAUSEA/VOMITING; Start 10/07/18 at 12:30 Acetaminophen (Tylenol Tab) 650 mg Q6H PRN PO .PAIN 1-3 OR TEMP Last administered on 10/26/18at 10:31; Admin Dose 650 MG; Start 10/07/18 at 12:30 Acetaminophen/ Hydrocodone Bitart ([place] (5/325)) 1 tab Q6H PRN PO .PAIN 4-6 Last administered on 10/25/18at 10:52; Admin Dose 1 TAB; Start 10/07/18 at 12:30 Clonidine (Catapres) 0.1 mg BID PO Last administered on 10/16/18 08:46; Admin Dose 0.1 MG; Start 10/07/18 at 22:00; Status Hold Miscellaneous Information 1 ea NOTE XX ; Start 10/07/18 at 21:00 Glucose (Glutose) 15 gm Q15M PRN PO DECREASED GLUCOSE; Start 10/07/18 at 21:00 Glucose (Glutose) 22.5 gm Q15M PRN PO DECREASED GLUCOSE; Start 10/07/18 at 21:00 Dextrose (D50w Syringe) 25 ml Q15M PRN IV DECREASED GLUCOSE Last administered on 10/21/18 08:09; Admin Dose 25 ML; Start 10/07/18 at 21:00 Dextrose (D50w Syringe) 50 ml Q15M PRN IV DECREASED GLUCOSE; Start 10/07/18 at 21:00 Glucagon (Glucagen) 1 mg Q15M PRN IM DECREASED GLUCOSE; Start 10/07/18 at 21:00 Glucose (Glutose) 15 gm Q15M PRN BUCCAL DECREASED GLUCOSE; Start 10/07/18 at 21:00 Collagenase (Santyl) 1 applic DAILY TOP Last administered on 10/26/18 08:48; Admin Dose 1 APPLIC; Start 10/09/18 at 19:00 Sodium Hypochlorite (Dakins Diluted ()) 1 applic DAILY TP Last administered on 10/26/18 08:48; Admin Dose 1 APPLIC; Start 10/11/18 at 09:00 Quetiapine Fumarate (Seroquel) 25 mg BID@0900,1200 PO Last administered on 10/26/18 08:47; Admin Dose 25 MG; Start 10/11/18 at 12:00 Quetiapine Fumarate (Seroquel) 50 mg HS PO Last administered on 10/25/18 20:11; Admin Dose 50 MG; Start 10/11/18 at 21:00 Morphine Sulfate (morphine) 2 mg Q4H PRN IV SEVERE PAIN LEVEL 7-10 Last administered on 10/22/18 21:25; Admin Dose 2 MG; Start 10/15/18 at 21:00 Collagenase (Santyl) 1 applic DAILY TOP Last administered on 10/26/18 08:48; Admin Dose 1 APPLIC; Start 10/17/18 at 12:00 Lubiprostone (Amitiza) 24 mcg BID PO Last administered on 10/26/18 08:38; Admin Dose 24 MCG; Start 10/20/18 at 21:00 Ciprofloxacin (Cipro) 500 mg BID@06,18 PO Last administered on 10/26/18 05:50; Admin Dose 500 MG; Start 10/21/18 at 18:00 Insulin Glargine (Lantus) 8 units DAILY@1200 SC Last administered on 10/26/18 12:15; Admin Dose 8 UNITS; Start 10/22/18 at 12:00 Lisinopril (Zestril) 20 mg DAILY PO Last administered on 10/26/18 08:46; Admin Dose 20 MG; Start 10/21/18 at 17:30 Hydralazine HCl (Apresoline) 10 mg Q4H PRN IV >160/95; Start 10/21/18 at 17:30 Insulin Aspart (Novolog Insulin Pen) NOVOLOG *MILD* ALGORITHM WITH MEALS BEDTIME SC Last administered on 10/26/18 12:16; Admin Dose 2 UNIT; Start 10/22/18 at 21:00 Diagnostic Test (Pha) (Accu-Chek) 1 ea 02 XX Last administered on 10/25/18 02:12; Admin Dose 1 EA; Start 10/23/18 at 02:00 Multivitamins Therapeutic (Theragran) 1 tab DAILY PO Last administered on 10/26/18 08:45; Admin Dose 1 TAB; Start 10/23/18 at 09:00 Zinc Sulfate (Zinc Sulfate) 220 mg DAILY PO Last administered on 10/26/18 08:39; Admin Dose 220 MG; Start 10/23/18 at 09:00; Stop 11/06/18 at 09:00 Ascorbic Acid (Vitamin C) 250 mg DAILY PO Last administered on 10/26/18 08:45; Admin Dose 250 MG; Start 10/23/18 at 09:00 Collagenase (Santyl) 1 applic DAILY TOP Last administered on 10/26/18 08:48; Admin Dose 1 APPLIC; Start 10/23/18 at 11:00 Caspofungin 50 mg/ Sodium Chloride 250 ml @ 250 mls/hr Q24H IVPB Last administered on 10/25/18 14:56; Admin Dose 250 MLS/HR; Start 10/24/18 at 14:00 Ferric Sodium Gluconate Complex 125 mg/Sodium Chloride 110 ml @ 110 mls/hr DAILY@1300 IVPB Last administered on 10/26/18 12:15; Admin Dose 110 MLS/HR; Start 10/24/18 at 13:00; Stop 10/28/18 at 13:59 Metronidazole 100 ml @ 100 mls/hr Q8 IVPB Last administered on 10/26/18 05:50; Admin Dose 100 MLS/HR; Start 10/24/18 at 14:00 ALEM ANDRES Oct 26, 2018 13:44
--- NOTE | 2018-10-26 15:09 | CONS ---
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 From there we will decide on whether or not he needs adjuvant chemotherapy #Recurrent Renal Cancer -pt will need to be referred to urology at a tertiary care center for surgical resection of this mass. #Diabetic foot -Right heel decubitus ulceration stage 4 -Right foot osteomyelitis -management per vascular surgery and podiatry -continue antibiotics #Sepsis 2/2 to UTI and early pneumonia -continue antibiotics #anemia; Hgb 7.2 -2/2 GIB and iron deficiency -started on IV iron Patient seen in collaboration with Dr Valencia. Dw staff Consultation Date/Type/Reason Admit Date/Time Oct 07, 2018 at 03:37 Initial Consult Date 10/10/18 Type of Consult Oncology/Hematology Reason for Consultation Colon Cancer Requesting Provider: JAGJIT MONTES MD Date/Time of Note DATE: 10/26/18 TIME: 15:09 24 HR Interval Summary Free Text/Dictation No new events overnight dw staff Exam/Review of Systems Exam Vitals Vital Signs Date Temp Pulse Resp B/P (MAP) Pulse Ox O2 O2 Flow FiO2 Time Delivery Rate 10/26/18 98.9 66 15 128/81 97 08:14 (97) 10/25/18 Room Air 20:16 10/24/18 2.0 10:25 Intake and Output 10/25/18 10/25/18 10/26/18 1515:00 23:00 07:00 IntakeIntake Total 940 ml 1010 ml 610 ml OutputOutput Total 300 ml 150 ml BalanceBalance 640 ml 1010 ml 460 ml Constitutional: alert, well developed Head: atraumatic Eyes: nl lids, nl sclera ENMT: nl external ears & nose Neck: non-tender Respiratory: clear to auscultation Cardiovascular: nl pulses, other (s1s2) Gastrointestinal: soft, non-tender Musculoskeletal: nl extremities to inspection Extremities: normal pulses Neurological: other (alert.responsive) Skin: nl turgor Lymph: nontender Results Result Diagram: 10/25/18 0732 10/25/18 0633 Results 24hrs Laboratory Tests Test 10/25/18 17:37 10/25/18 21:52 10/25/18 21:53 10/26/18 02:11 Bedside Glucose 251 H 261 H 244 H 168 Test 10/26/18 07:54 10/26/18 11:54 Bedside Glucose 147 189 Medications Medication Current Medications Allopurinol (Zyloprim) 100 mg BID PO Last administered on 10/26/18 08:38; Admin Dose 100 MG; Start 10/07/18 at 21:00 Aspirin (Halfprin) 81 mg DAILY PO Last administered on 10/08/18 08:14; Admin Dose 81 MG; Start 10/08/18 at 09:00; Status Hold Docusate Sodium (Colace) 100 mg TID PO Last administered on 10/26/18 12:15; Admin Dose 100 MG; Start 10/07/18 at 21:00 Pantoprazole (Protonix Tab) 40 mg DAILY@06 PO Last administered on 10/26/18at 05:50; Admin Dose 40 MG; Start 10/08/18 at 06:00 IV Flush (NS 3 ml) 3 ml PER PROTOCOL IV ; Start 10/07/18 at 12:30 Ondansetron HCl (Zofran Inj) 4 mg Q6H PRN IV NAUSEA/VOMITING; Start 10/07/18 at 12:30 Acetaminophen (Tylenol Tab) 650 mg Q6H PRN PO .PAIN 1-3 OR TEMP Last administered on 10/26/18at 10:31; Admin Dose 650 MG; Start 10/07/18 at 12:30 Acetaminophen/ Hydrocodone Bitart ([place] (5/325)) 1 tab Q6H PRN PO .PAIN 4-6 Last administered on 10/25/18at 10:52; Admin Dose 1 TAB; Start 10/07/18 at 12:30 Clonidine (Catapres) 0.1 mg BID PO Last administered on 10/16/18 08:46; Admin Dose 0.1 MG; Start 10/07/18 at 22:00; Status Hold Miscellaneous Information 1 ea NOTE XX ; Start 10/07/18 at 21:00 Glucose (Glutose) 15 gm Q15M PRN PO DECREASED GLUCOSE; Start 10/07/18 at 21:00 Glucose (Glutose) 22.5 gm Q15M PRN PO DECREASED GLUCOSE; Start 10/07/18 at 21:00 Dextrose (D50w Syringe) 25 ml Q15M PRN IV DECREASED GLUCOSE Last administered on 10/21/18 08:09; Admin Dose 25 ML; Start 10/07/18 at 21:00 Dextrose (D50w Syringe) 50 ml Q15M PRN IV DECREASED GLUCOSE; Start 10/07/18 at 21:00 Glucagon (Glucagen) 1 mg Q15M PRN IM DECREASED GLUCOSE; Start 10/07/18 at 21:00 Glucose (Glutose) 15 gm Q15M PRN BUCCAL DECREASED GLUCOSE; Start 10/07/18 at 21:00 Collagenase (Santyl) 1 applic DAILY TOP Last administered on 10/26/18 08:48; Admin Dose 1 APPLIC; Start 10/09/18 at 19:00 Sodium Hypochlorite (Dakins Diluted ()) 1 applic DAILY TP Last administered on 10/26/18 08:48; Admin Dose 1 APPLIC; Start 10/11/18 at 09:00 Quetiapine Fumarate (Seroquel) 25 mg BID@0900,1200 PO Last administered on 10/26/18 08:47; Admin Dose 25 MG; Start 10/11/18 at 12:00 Quetiapine Fumarate (Seroquel) 50 mg HS PO Last administered on 10/25/18 20:11; Admin Dose 50 MG; Start 10/11/18 at 21:00 Morphine Sulfate (morphine) 2 mg Q4H PRN IV SEVERE PAIN LEVEL 7-10 Last ad ministered on 10/22/18 21:25; Admin Dose 2 MG; Start 10/15/18 at 21:00 Collagenase (Santyl) 1 applic DAILY TOP Last administered on 10/26/18 08:48; Admin Dose 1 APPLIC; Start 10/17/18 at 12:00 Lubiprostone (Amitiza) 24 mcg BID PO Last administered on 10/26/18 08:38; Admin Dose 24 MCG; Start 10/20/18 at 21:00 Ciprofloxacin (Cipro) 500 mg BID@06,18 PO Last administered on 10/26/18 05:50; Admin Dose 500 MG; Start 10/21/18 at 18:00 Insulin Glargine (Lantus) 8 units DAILY@1200 SC Last administered on 10/26/18 12:15; Admin Dose 8 UNITS; Start 10/22/18 at 12:00 Lisinopril (Zestril) 20 mg DAILY PO Last administered on 10/26/18 08:46; Admin Dose 20 MG; Start 10/21/18 at 17:30 Hydralazine HCl (Apresoline) 10 mg Q4H PRN IV >160/95; Start 10/21/18 at 17:30 Insulin Aspart (Novolog Insulin Pen) NOVOLOG *MILD* ALGORITHM WITH MEALS BEDTIME SC Last administered on 10/26/18 12:16; Admin Dose 2 UNIT; Start 10/22/18 at 21:00 Diagnostic Test (Pha) (Accu-Chek) 1 ea 02 XX Last administered on 10/25/18 02:12; Admin Dose 1 EA; Start 10/23/18 at 02:00 Multivitamins Therapeutic (Theragran) 1 tab DAILY PO Last administered on 10/26/18 08:45; Admin Dose 1 TAB; Start 10/23/18 at 09:00 Zinc Sulfate (Zinc Sulfate) 220 mg DAILY PO Last administered on 10/26/18 08:39; Admin Dose 220 MG; Start 10/23/18 at 09:00; Stop 11/06/18 at 09:00 Ascorbic Acid (Vitamin C) 250 mg DAILY PO Last administered on 10/26/18 08:45; Admin Dose 250 MG; Start 10/23/18 at 09:00 Collagenase (Santyl) 1 applic DAILY TOP Last administered on 10/26/18 08:48; Admin Dose 1 APPLIC; Start 10/23/18 at 11:00 Caspofungin 50 mg/ Sodium Chloride 250 ml @ 250 mls/hr Q24H IVPB Last administered on 10/25/18 14:56; Admin Dose 250 MLS/HR; Start 10/24/18 at 14:00 Ferric Sodium Gluconate Complex 125 mg/Sodium Chloride 110 ml @ 110 mls/hr DAILY@1300 IVPB Last administered on 10/26/18 12:15; Admin Dose 110 MLS/HR; Start 10/24/18 at 13:00; Stop 10/28/18 at 13:59 Metronidazole 100 ml @ 100 mls/hr Q8 IVPB Last administered on 10/26/18 05:50; Admin Dose 100 MLS/HR; Start 10/24/18 at 14:00 ELIZA HECTOR Oct 26, 2018 15:09
[2018-10-26 15:10] VITALS: BP 130/92; PULSE 70; RESP 17
--- NOTE | 2018-10-26 15:11 | CONS ---
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 From there we will decide on whether or not he needs adjuvant chemotherapy #Recurrent Renal Cancer -pt will need to be referred to urology at a tertiary care center for surgical resection of this mass. This appears #Diabetic foot -Right heel decubitus ulceration stage 4 -Right foot osteomyelitis -management per vascular surgery and podiatry -continue antibiotics #Sepsis 2/2 to UTI and early pneumonia -continue antibiotics #anemia; Hgb 7.2 -2/2 GIB and iron deficiency -started on IV iron Patient seen in collaboration with Dr Valencia. Dw staff Consultation Date/Type/Reason Admit Date/Time Oct 07, 2018 at 03:37 Initial Consult Date 10/10/18 Type of Consult Oncology/Hematology Reason for Consultation Colon Cancer Requesting Provider: JAGJIT MONTES MD Date/Time of Note DATE: 10/26/18 TIME: 15:10 24 HR Interval Summary Free Text/Dictation No new events reported last night dw staff Exam/Review of Systems Exam Vitals Vital Signs Date Temp Pulse Resp B/P (MAP) Pulse Ox O2 O2 Flow FiO2 Time Delivery Rate 10/26/18 98.9 66 15 128/81 97 08:14 (97) 10/25/18 Room Air 20:16 10/24/18 2.0 10:25 Intake and Output 10/25/18 10/25/18 10/26/18 1515:00 23:00 07:00 IntakeIntake Total 940 ml 1010 ml 610 ml OutputOutput Total 300 ml 150 ml BalanceBalance 640 ml 1010 ml 460 ml Constitutional: alert, well developed Psych: nl mood/affect Eyes: nl lids, nl sclera ENMT: nl external ears & nose Neck: non-tender Respiratory: clear to auscultation Cardiovascular: nl pulses, other (s1s2) Gastrointestinal: soft, non-tender Musculoskeletal: nl extremities to inspection Extremities: normal pulses Neurological: nl speech, other (alert/reponsive) Skin: nl turgor Lymph: nontender Results Result Diagram: 10/25/18 0732 10/25/18 0633 Results 24hrs Laboratory Tests Test 10/25/18 17:37 10/25/18 21:52 10/25/18 21:53 10/26/18 02:11 Bedside Glucose 251 H 261 H 244 H 168 Test 10/26/18 07:54 10/26/18 11:54 Bedside Glucose 147 189 Medications Medication Current Medications Allopurinol (Zyloprim) 100 mg BID PO Last administered on 10/26/18 08:38; Admin Dose 100 MG; Start 10/07/18 at 21:00 Aspirin (Halfprin) 81 mg DAILY PO Last administered on 10/08/18 08:14; Admin Dose 81 MG; Start 10/08/18 at 09:00; Status Hold Docusate Sodium (Colace) 100 mg TID PO Last administered on 10/26/18 12:15; Admin Dose 100 MG; Start 10/07/18 at 21:00 Pantoprazole (Protonix Tab) 40 mg DAILY@06 PO Last administered on 10/26/18 05:50; Admin Dose 40 MG; Start 10/08/18 at 06:00 IV Flush (NS 3 ml) 3 ml PER PROTOCOL IV ; Start 10/07/18 at 12:30 Ondansetron HCl (Zofran Inj) 4 mg Q6H PRN IV NAUSEA/VOMITING; Start 10/07/18 at 12:30 Acetaminophen (Tylenol Tab) 650 mg Q6H PRN PO .PAIN 1-3 OR TEMP Last administered on 10/26/18 10:31; Admin Dose 650 MG; Start 10/07/18 at 12:30 Acetaminophen/ Hydrocodone Bitart ([place] (5/325)) 1 tab Q6H PRN PO .PAIN 4-6 Last administered on 10/25/18 10:52; Admin Dose 1 TAB; Start 10/07/18 at 12:30 Clonidine (Catapres) 0.1 mg BID PO Last administered on 10/16/18 08:46; Admin Dose 0.1 MG; Start 10/07/18 at 22:00; Status Hold Miscellaneous Information 1 ea NOTE XX ; Start 10/07/18 at 21:00 Glucose (Glutose) 15 gm Q15M PRN PO DECREASED GLUCOSE; Start 10/07/18 at 21:00 Glucose (Glutose) 22.5 gm Q15M PRN PO DECREASED GLUCOSE; Start 10/07/18 at 21:00 Dextrose (D50w Syringe) 25 ml Q15M PRN IV DECREASED GLUCOSE Last administered on 10/21/18 08:09; Admin Dose 25 ML; Start 10/07/18 at 21:00 Dextrose (D50w Syringe) 50 ml Q15M PRN IV DECREASED GLUCOSE; Start 10/07/18 at 21:00 Glucagon (Glucagen) 1 mg Q15M PRN IM DECREASED GLUCOSE; Start 10/07/18 at 21:00 Glucose (Glutose) 15 gm Q15M PRN BUCCAL DECREASED GLUCOSE; Start 10/07/18 at 21:00 Collagenase (Santyl) 1 applic DAILY TOP Last administered on 10/26/18 08:48; Admin Dose 1 APPLIC; Start 10/09/18 at 19:00 Sodium Hypochlorite (Dakins Diluted ()) 1 applic DAILY TP Last administered on 10/26/18 08:48; Admin Dose 1 APPLIC; Start 10/11/18 at 09:00 Quetiapine Fumarate (Seroquel) 25 mg BID@0900,1200 PO Last administered on 10/26/18 08:47; Admin Dose 25 MG; Start 10/11/18 at 12:00 Quetiapine Fumarate (Seroquel) 50 mg HS PO Last administered on 10/25/18 20:11; Admin Dose 50 MG; Start 10/11/18 at 21:00 Morphine Sulfate (morphine) 2 mg Q4H PRN IV SEVERE PAIN LEVEL 7-10 Last administered on 10/22/18 21:25; Admin Dose 2 MG; Start 10/15/18 at 21:00 Collagenase (Santyl) 1 applic DAILY TOP Last administered on 10/26/18 08:48; Admin Dose 1 APPLIC; Start 10/17/18 at 12:00 Lubiprostone (Amitiza) 24 mcg BID PO Last administered on 10/26/18 08:38; Admin Dose 24 MCG; Start 10/20/18 at 21:00 Ciprofloxacin (Cipro) 500 mg BID@06,18 PO Last administered on 10/26/18 05:50; Admin Dose 500 MG; Start 10/21/18 at 18:00 Insulin Glargine (Lantus) 8 units DAILY@1200 SC Last administered on 10/26/18 12:15; Admin Dose 8 UNITS; Start 10/22/18 at 12:00 Lisinopril (Zestril) 20 mg DAILY PO Last administered on 10/26/18 08:46; Admin Dose 20 MG; Start 10/21/18 at 17:30 Hydralazine HCl (Apresoline) 10 mg Q4H PRN IV >160/95; Start 10/21/18 at 17:30 Insulin Aspart (Novolog Insulin Pen) NOVOLOG *MILD* ALGORITHM WITH MEALS BEDTIME SC Last administered on 10/26/18 12:16; Admin Dose 2 UNIT; Start 10/22/18 at 21:00 Diagnostic Test (Pha) (Accu-Chek) 1 ea 02 XX Last administered on 10/25/18 02:12; Admin Dose 1 EA; Start 10/23/18 at 02:00 Multivitamins Therapeutic (Theragran) 1 tab DAILY PO Last administered on 10/26/18 08:45; Admin Dose 1 TAB; Start 10/23/18 at 09:00 Zinc Sulfate (Zinc Sulfate) 220 mg DAILY PO Last administered on 10/26/18 08:39; Admin Dose 220 MG; Start 10/23/18 at 09:00; Stop 11/06/18 at 09:00 Ascorbic Acid (Vitamin C) 250 mg DAILY PO Last administered on 10/26/18 08:45; Admin Dose 250 MG; Start 10/23/18 at 09:00 Collagenase (Santyl) 1 applic DAILY TOP Last administered on 10/26/18 08:48; Admin Dose 1 APPLIC; Start 10/23/18 at 11:00 Caspofungin 50 mg/ Sodium Chloride 250 ml @ 250 mls/hr Q24H IVPB Last administered on 10/25/18 14:56; Admin Dose 250 MLS/HR; Start 10/24/18 at 14:00 Ferric Sodium Gluconate Complex 125 mg/Sodium Chloride 110 ml @ 110 mls/hr DAILY@1300 IVPB Last administered on 10/26/18 12:15; Admin Dose 110 MLS/HR; Start 10/24/18 at 13:00; Stop 10/28/18 at 13:59 Metronidazole 100 ml @ 100 mls/hr Q8 IVPB Last administered on 10/26/18 05:50; Admin Dose 100 MLS/HR; Start 10/24/18 at 14:00 ELIZA HECTOR Oct 26, 2018 15:11
[2018-10-26] MEDS: CASPOFUNGIN 50 MG in SOD CHLORIDE 0.9% 250 ML IVPB SCH (16:37)
[2018-10-26 20:00] VITALS: BP 120/59; PULSE 78; RESP 17
--- NOTE | 2018-10-26 22:35 | PN ---
"Date/Time of Note Date/Time of Note DATE: 10/26/18 TIME: 22:33 Assessment/Plan Lines/Catheters IV Catheter Type (from Nrs): Mid Line [place] in Place (from Nrs): Yes Assessment/Plan Chief Complaint/Hosp Course 1. 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 Bowel function. Family is not sure if they want surgery for her. More discussions to be had -Oncology recommendations noted -Further discussions with family members 2. Right buttock wound; Foot wound with osteo; right buttock wound healing -debridement of right buttock wound as needed -continue local care -frequent turning and off-loading -low air loss mattress -vitamin c -short term zinc -optimize nutrition -foot wounds per podiatry> status post debridement currently with wound VAC -calf wound per vascular 3. BRANDON: Resolved; hypoechoic lesion left kidney, possible neoplasm; hx of renal ca and nephrectomy; CT noted with possible recurrent left kidney malignancy -Monitor 4. Microcytic hypochromic anemia: sp prbc tx; colonoscopy pending today -monitor -transfuse as needed 5. Obesity bmi 31 -diet and exercise optimization -encourage weight loss 6. Poor appetite: -supportive -treat infections 7. Hepatic steatosis: -nutrition and weight optimization -medical fu 8. Gastritis: -PPI 9. Constipation: now + bowel function -per gi 10. Diabetes with hypoglycemic episode -glucose optimization - med adjustment per medical team 11. UTI: -abx per sensitivity -frequent bladder emptying/cath care 12. Renal cell carcinoma recommended to tertiary ctr Thank you Subjective 24 Hr Interval Summary Spoke with son. He is not sure if he wants sx. He will think about it. Comfortable. No pain. + Bowel function. No fevers, labored breathing, congested cough, vomiting, diarrhea, seizure, rash. No visual or neuro changes. Non ambulatory. Exam/Review of Systems Vital Signs Vitals Vital Signs Date Temp Pulse Resp B/P (MAP) Pulse Ox O2 O2 Flow FiO2 Time Delivery Rate 10/26/18 98.2 78 17 120/59 96 20:00 (79) 10/25/18 Room Air 20:16 10/24/18 2.0 10:25 Intake and Output 10/25/18 10/25/18 10/26/18 1515:00 23:00 07:00 IntakeIntake Total 940 ml 1010 ml 710 ml OutputOutput Total 300 ml 150 ml BalanceBalance 640 ml 1010 ml 560 ml Exam Free Text/Dictation Constitutional: responsive, nad, obese No oriented (confused) Psych: flat affect Head: normocephalic, atraumatic Eyes: nl conjunctiva, EOMI, nl lids, nl sclera ENMT: nl external ears & nose, nl nasal mucosa & septum, mucosa pink and moist Neck: supple, non-tender Respiratory: normal air movement; No congested cough Cardiovascular: regular rate and rhythm, nl pulses; No edema Gastrointestinal: soft, non-tender; obese No distended, No rebound or guarding Genitourinary - Female: nl external genitalia Musculoskeletal: nl extremities to inspection, muscle weakness (gen weakness) Extremities: normal pulses; No edema, No pitting pedal edema Neurological: nl speech; No nl mental status (forgetful), No nl strength (gen weakness), non ambulatory Skin: other (Multiple wounds: right buttock: clean, granulating, no periwound erythema/drainage/odor | Left calf:min slough, wrapped | Bilateral foot wounds; r foot w wound vac); No rash or lesions Results Result Diagram: 10/25/18 0732 10/25/18 0633 MARINA WADE MD Oct 26, 2018 22:35"
[2018-10-27 02:00] VITALS: BP 142/65; PULSE 82; RESP 16
[2018-10-27] MEDS: ACCU-CHEK XX SCH (02:00)
[2018-10-27] MEDS: CIPROFLOXACIN 500 MG TAB PO SCH ×2 (05:45→17:36)
[2018-10-27] MEDS: PANTOPRAZOLE (EC) 40 MG TAB PO SCH (05:45)
[2018-10-27] MEDS: metroNIDAZOLE 500 MG/NS (PMX) 100 ML IVPB SCH ×3 (05:45→22:30)
[2018-10-27] MEDS: INSULIN ASPART [NOVOLOG] 3 ML PEN SC SCH ×4 (08:00→21:00)
[2018-10-27 08:02] VITALS: BP 128/85; PULSE 80; RESP 17
[2018-10-27] MEDS: QUETIAPINE 25 MG TAB PO SCH ×3 (09:00→20:44)
[2018-10-27] MEDS: DAKINS 0.0125%(1/40) 473 ML SOLUTION TP SCH (09:00)
[2018-10-27] MEDS: COLLAGENASE 5 GM (UD JAR) TOP SCH ×4 (09:00→21:33)
[2018-10-27] MEDS: ACETAMINOPHEN 325 MG TAB PO PRN (09:02)
[2018-10-27] MEDS: DOCUSATE SODIUM 100 MG CAP PO SCH ×3 (09:02→20:44)
[2018-10-27] MEDS: ZINC SULFATE 220 MG CAP PO SCH (09:02)
[2018-10-27] MEDS: MULTIVITAMINS THERAPEUTIC TAB PO SCH (09:02)
[2018-10-27] MEDS: ASCORBIC ACID 250 MG TAB PO SCH (09:03)
[2018-10-27] MEDS: ALLOPURINOL 100 MG TAB PO SCH ×2 (09:03→20:44)
[2018-10-27] MEDS: LUBIPROSTONE 24 MCG CAP PO SCH ×2 (09:03→20:44)
[2018-10-27] MEDS: LISINOPRIL 20 MG TAB PO SCH (09:03)
--- NOTE | 2018-10-27 09:33 | CONS ---
Assessment/Plan Assessment/Plan Hospital Course (Demo Recall) 82 yo female with hl/o anemia Spoke with son who is concerned about surgery considering mother's age and health. She had two brown soft bm yesterday. Tolerating PO diet. 1. Urinary tract infection. 2. Sepsis. -gram positive rods in foot wound cx. -pos urine cx 3. Status post coronary artery bypass graft. 4. Peripheral vascular disease. 5. Atrial fibrillation. 6. Status post surgery for renal cell carcinoma 8 years ago. 7. Diabetes. 8. Hypertension. 9. Severe anemia. -IV iron 10. Transaminitis -elevated ALT/AST -improving -CBD 7mm, t bili wnl. 11. Elevated CEA: 24.1 12. Chronic gastritis 13. S/P EGD 10/13 14. Fatty liver with possible hepatocellular disease noted on US 15. 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 Erwin and oncologist Pending Oncology f/u for management of transverse colon cancer Pt examined and plan of care d/w Dr. Winkler Consultation Date/Type/Reason Admit Date/Time Oct 07, 2018 at 03:37 Initial Consult Date 10/07/18 Requesting Provider: JAGJIT MONTES MD Date/Time of Note DATE: 10/27/18 TIME: 09:32 Exam/Review of Systems Exam Vitals Vital Signs Date Temp Pulse Resp B/P (MAP) Pulse Ox O2 O2 Flow FiO2 Time Delivery Rate 10/27/18 97.6 80 17 128/85 99 08:02 (99) 10/25/18 Room Air 20:16 10/24/18 2.0 10:25 Intake and Output 10/26/18 10/26/18 10/27/18 1515:00 23:00 07:00 IntakeIntake Total 310 ml 770 ml 220 ml OutputOutput Total 750 ml 500 ml BalanceBalance 310 ml 20 ml -280 ml Constitutional: alert Psych: no complaints Head: normocephalic Eyes: PERRL Respiratory: clear to auscultation Cardiovascular: regular rate and rhythm Gastrointestinal: soft, tender Neurological: confused Results Result Diagram: 10/27/18 0552 10/27/18 0552 Results 24hrs Laboratory Tests Test 10/26/18 11:54 10/26/18 17:04 10/26/18 20:41 10/27/18 05:52 Bedside Glucose 189 220 172 White Blood Count 9.4 # Red Blood Count 3.14 L Hemoglobin 8.4 L Hematocrit 27.1 L Mean Corpuscular 86.3 Volume Mean Corpuscular 26.8 L Hemoglobin Mean Corpuscular 31.0 L Hemoglobin Concent Red Cell 18.0 H Distribution Width Platelet Count 304 # Mean Platelet Volume 9.8 Immature 0.400 Granulocytes % Neutrophils % 76.1 Lymphocytes % 16.6 Monocytes % 4.9 Eosinophils % 1.7 Basophils % 0.3 Nucleated Red Blood 0.0 Cells % Immature 0.040 H Granulocytes # Neutrophils # 7.1 Lymphocytes # 1.6 Monocytes # 0.5 Eosinophils # 0.2 Basophils # 0.0 Nucleated Red Blood 0.0 Cells # Sodium Level 134 L Potassium Level 4.0 Chloride Level 112 H Carbon Dioxide Level 19 L Anion Gap 3 L Blood Urea Nitrogen 15 Creatinine 1.30 H Est Glomerular Filtrat Rate mL/min Glucose Level 101 # Calcium Level 8.4 Test 10/27/18 07:57 Bedside Glucose 98 Medications Medication Current Medications Allopurinol (Zyloprim) 100 mg BID PO Last administered on 10/27/18 09:03; Admin Dose 100 MG; Start 10/07/18 at 21:00 Aspirin (Halfprin) 81 mg DAILY PO Last administered on 10/08/18at 08:14; Admin Dose 81 MG; Start 10/08/18 at 09:00; Status Hold Docusate Sodium (Colace) 100 mg TID PO Last administered on 10/27/18 09:02; Admin Dose 100 MG; Start 10/07/18 at 21:00 Pantoprazole (Protonix Tab) 40 mg DAILY@06 PO Last administered on 10/27/18at 05:45; Admin Dose 40 MG; Start 10/08/18 at 06:00 IV Flush (NS 3 ml) 3 ml PER PROTOCOL IV ; Start 10/07/18 at 12:30 Ondansetron HCl (Zofran Inj) 4 mg Q6H PRN IV NAUSEA/VOMITING; Start 10/07/18 at 12:30 Acetaminophen (Tylenol Tab) 650 mg Q6H PRN PO .PAIN 1-3 OR TEMP Last administered on 10/27/18 09:02; Admin Dose 650 MG; Start 10/07/18 at 12:30 Acetaminophen/ Hydrocodone Bitart ([place] (5/325)) 1 tab Q6H PRN PO .PAIN 4-6 Last administered on 10/25/18at 10:52; Admin Dose 1 TAB; Start 10/07/18 at 12:30 Clonidine (Catapres) 0.1 mg BID PO Last administered on 10/16/18at 08:46; Admin Dose 0.1 MG; Start 10/07/18 at 22:00; Status Hold Miscellaneous Information 1 ea NOTE XX ; Start 10/07/18 at 21:00 Glucose (Glutose) 15 gm Q15M PRN PO DECREASED GLUCOSE; Start 10/07/18 at 21:00 Glucose (Glutose) 22.5 gm Q15M PRN PO DECREASED GLUCOSE; Start 10/07/18 at 21:00 Dextrose (D50w Syringe) 25 ml Q15M PRN IV DECREASED GLUCOSE Last administered on 10/21/18 08:09; Admin Dose 25 ML; Start 10/07/18 at 21:00 Dextrose (D50w Syringe) 50 ml Q15M PRN IV DECREASED GLUCOSE; Start 10/07/18 at 21:00 Glucagon (Glucagen) 1 mg Q15M PRN IM DECREASED GLUCOSE; Start 10/07/18 at 21:00 Glucose (Glutose) 15 gm Q15M PRN BUCCAL DECREASED GLUCOSE; Start 10/07/18 at 21:00 Collagenase (Santyl) 1 applic DAILY TOP Last administered on 10/27/18at 09:03; Admin Dose 1 APPLIC; Start 10/09/18 at 19:00 Sodium Hypochlorite (Dakins Diluted ()) 1 applic DAILY TP Last administered on 10/26/18at 08:48; Admin Dose 1 APPLIC; Start 10/11/18 at 09:00 Quetiapine Fumarate (Seroquel) 25 mg BID@0900,1200 PO Last administered on 10/26/18at 08:47; Admin Dose 25 MG; Start 10/11/18 at 12:00 Quetiapine Fumarate (Seroquel) 50 mg HS PO Last administered on 10/26/18at 20:39; Admin Dose 50 MG; Start 10/11/18 at 21:00 Morphine Sulfate (morphine) 2 mg Q4H PRN IV SEVERE PAIN LEVEL 7-10 Last administered on 10/22/18 21:25; Admin Dose 2 MG; Start 10/15/18 at 21:00 Collagenase (Santyl) 1 applic DAILY TOP Last administered on 10/26/18 08:48; Admin Dose 1 APPLIC; Start 10/17/18 at 12:00 Lubiprostone (Amitiza) 24 mcg BID PO Last administered on 10/27/18 09:03; Admin Dose 24 MCG; Start 10/20/18 at 21:00 Ciprofloxacin (Cipro) 500 mg BID@06,18 PO Last administered on 10/27/18 05:45; Admin Dose 500 MG; Start 10/21/18 at 18:00 Insulin Glargine (Lantus) 8 units DAILY@1200 SC Last administered on 10/26/18 12:15; Admin Dose 8 UNITS; Start 10/22/18 at 12:00 Lisinopril (Zestril) 20 mg DAILY PO Last administered on 10/27/18 09:03; Admin Dose 20 MG; Start 10/21/18 at 17:30 Hydralazine HCl (Apresoline) 10 mg Q4H PRN IV >160/95; Start 10/21/18 at 17:30 Insulin Aspart (Novolog Insulin Pen) NOVOLOG *MILD* ALGORITHM WITH MEALS BEDTIME SC Last administered on 10/26/18 17:06; Admin Dose 2 UNIT; Start 10/22/18 at 21:00 Diagnostic Test (Pha) (Accu-Chek) 1 ea 02 XX Last administered on 10/25/18 02:12; Admin Dose 1 EA; Start 10/23/18 at 02:00 Multivitamins Therapeutic (Theragran) 1 tab DAILY PO Last administered on 09:02; Admin Dose 1 TAB; Start 10/23/18 at 09:00 Zinc Sulfate (Zinc Sulfate) 220 mg DAILY PO Last administered on 10/27/18 09:02; Admin Dose 220 MG; Start 10/23/18 at 09:00; Stop 11/06/18 at 09:00 Ascorbic Acid (Vitamin C) 250 mg DAILY PO Last administered on 10/27/18 09:03; Admin Dose 250 MG; Start 10/23/18 at 09:00 Collagenase (Santyl) 1 applic DAILY TOP Last administered on 10/27/18at 09:03; Admin Dose 1 APPLIC; Start 10/23/18 at 11:00 Caspofungin 50 mg/ Sodium Chloride 250 ml @ 250 mls/hr Q24H IVPB Last administered on 10/26/18at 16:37; Admin Dose 250 MLS/HR; Start 10/24/18 at 14:00 Ferric Sodium Gluconate Complex 125 mg/Sodium Chloride 110 ml @ 110 mls/hr DAILY@1300 IVPB Last administered on 10/26/18at 12:15; Admin Dose 110 MLS/HR; Start 10/24/18 at 13:00; Stop 10/28/18 at 13:59 Metronidazole 100 ml @ 100 mls/hr Q8 IVPB Last administered on 10/27/18at 05:45; Admin Dose 100 MLS/HR; Start 10/24/18 at 14:00 MART CALDERON Oct 27, 2018 09:33
[2018-10-27] MEDS: INSULIN GLARGINE [LANTus] (100 UNITS/ML) SYG SC SCH (11:50)
--- NOTE | 2018-10-27 11:58 | CONS ---
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 only after the surgical pathology can we determine if patient needs adjuvant therapy. will speak with son. #Recurrent Renal Cancer -pt will need to be referred to urology at a tertiary care center for surgical resection of this mass. #Diabetic foot -Right heel decubitus ulceration stage 4 -Right foot osteomyelitis -management per vascular surgery and podiatry -continue antibiotics #Sepsis 2/2 to UTI and early pneumonia -continue antibiotics Consultation Date/Type/Reason Admit Date/Time Oct 07, 2018 at 03:37 Initial Consult Date 10/24/18 Type of Consult oncology Reason for Consultation colon cancer Requesting Provider: JAGJIT MONTES MD Date/Time of Note DATE: 10/27/18 TIME: 11:53 24 HR Interval Summary Free Text/Dictation no acute overnight events Exam/Review of Systems Exam Vitals Vital Signs Date Temp Pulse Resp B/P (MAP) Pulse Ox O2 O2 Flow FiO2 Time Delivery Rate 10/27/18 97.6 80 17 128/85 99 08:02 (99) 10/25/18 Room Air 20:16 10/24/18 2.0 10:25 Intake and Output 10/26/18 10/26/18 10/27/18 1515:00 23:00 07:00 IntakeIntake Total 310 ml 770 ml 220 ml OutputOutput Total 750 ml 500 ml BalanceBalance 310 ml 20 ml -280 ml Constitutional: alert, oriented Psych: no complaints Head: normocephalic Eyes: nl conjunctiva ENMT: nl external ears & nose Neck: supple Respiratory: clear to auscultation Cardiovascular: regular rate and rhythm Gastrointestinal: soft Genitourinary - Female: nl adnexae Musculoskeletal: nl extremities to inspection Extremities: normal pulses Neurological: RECEPTION MANAGER II-XII intact Results Result Diagram: 10/27/18 0552 10/27/18 0552 Results 24hrs Laboratory Tests Test 10/26/18 11:54 10/26/18 17:04 10/26/18 20:41 10/27/18 05:52 Bedside Glucose 189 220 172 White Blood Count 9.4 # Red Blood Count 3.14 L Hemoglobin 8.4 L Hematocrit 27.1 L Mean Corpuscular 86.3 Volume Mean Corpuscular 26.8 L Hemoglobin Mean Corpuscular 31.0 L Hemoglobin Concent Red Cell 18.0 H Distribution Width Platelet Count 304 # Mean Platelet Volume 9.8 Immature 0.400 Granulocytes % Neutrophils % 76.1 Lymphocytes % 16.6 Monocytes % 4.9 Eosinophils % 1.7 Basophils % 0.3 Nucleated Red Blood 0.0 Cells % Immature 0.040 H Granulocytes # Neutrophils # 7.1 Lymphocytes # 1.6 Monocytes # 0.5 Eosinophils # 0.2 Basophils # 0.0 Nucleated Red Blood 0.0 Cells # Sodium Level 134 L Potassium Level 4.0 Chloride Level 112 H Carbon Dioxide Level 19 L Anion Gap 3 L Blood Urea Nitrogen 15 Creatinine 1.30 H Est Glomerular Filtrat Rate mL/min Glucose Level 101 # Calcium Level 8.4 Test 10/27/18 07:57 Bedside Glucose 98 Medications Medication Current Medications Allopurinol (Zyloprim) 100 mg BID PO Last administered on 10/27/18 09:03; Admin Dose 100 MG; Start 10/07/18 at 21:00 Aspirin (Halfprin) 81 mg DAILY PO Last administered on 10/08/18 08:14; Admin D ose 81 MG; Start 10/08/18 at 09:00; Status Hold Docusate Sodium (Colace) 100 mg TID PO Last administered on 10/27/18 09:02; Admin Dose 100 MG; Start 10/07/18 at 21:00 Pantoprazole (Protonix Tab) 40 mg DAILY@06 PO Last administered on 10/27/18at 05:45; Admin Dose 40 MG; Start 10/08/18 at 06:00 IV Flush (NS 3 ml) 3 ml PER PROTOCOL IV ; Start 10/07/18 at 12:30 Ondansetron HCl (Zofran Inj) 4 mg Q6H PRN IV NAUSEA/VOMITING; Start 10/07/18 at 12:30 Acetaminophen (Tylenol Tab) 650 mg Q6H PRN PO .PAIN 1-3 OR TEMP Last administered on 10/27/18 09:02; Admin Dose 650 MG; Start 10/07/18 at 12:30 Acetaminophen/ Hydrocodone Bitart ([place] (5/325)) 1 tab Q6H PRN PO .PAIN 4-6 Last administered on 10/25/18 10:52; Admin Dose 1 TAB; Start 10/07/18 at 12:30 Clonidine (Catapres) 0.1 mg BID PO Last administered on 10/16/18at 08:46; Admin Dose 0.1 MG; Start 10/07/18 at 22:00; Status Hold Miscellaneous Information 1 ea NOTE XX ; Start 10/07/18 at 21:00 Glucose (Glutose) 15 gm Q15M PRN PO DECREASED GLUCOSE; Start 10/07/18 at 21:00 Glucose (Glutose) 22.5 gm Q15M PRN PO DECREASED GLUCOSE; Start 10/07/18 at 21:00 Dextrose (D50w Syringe) 25 ml Q15M PRN IV DECREASED GLUCOSE Last administered on 10/21/18 08:09; Admin Dose 25 ML; Start 10/07/18 at 21:00 Dextrose (D50w Syringe) 50 ml Q15M PRN IV DECREASED GLUCOSE; Start 10/07/18 at 21:00 Glucagon (Glucagen) 1 mg Q15M PRN IM DECREASED GLUCOSE; Start 10/07/18 at 21:00 Glucose (Glutose) 15 gm Q15M PRN BUCCAL DECREASED GLUCOSE; Start 10/07/18 at 21:00 Collagenase (Santyl) 1 applic DAILY TOP Last administered on 10/27/18at 09:03; Admin Dose 1 APPLIC; Start 10/09/18 at 19:00 Sodium Hypochlorite (Dakins Diluted ()) 1 applic DAILY TP Last administered on 10/26/18 08:48; Admin Dose 1 APPLIC; Start 10/11/18 at 09:00 Quetiapine Fumarate (Seroquel) 25 mg BID@0900,1200 PO Last administered on 10/26/18 08:47; Admin Dose 25 MG; Start 10/11/18 at 12:00 Quetiapine Fumarate (Seroquel) 50 mg HS PO Last administered on 10/26/18 20:39; Admin Dose 50 MG; Start 10/11/18 at 21:00 Morphine Sulfate (morphine) 2 mg Q4H PRN IV SEVERE PAIN LEVEL 7-10 Last adminis tered on 10/22/18at 21:25; Admin Dose 2 MG; Start 10/15/18 at 21:00 Collagenase (Santyl) 1 applic DAILY TOP Last administered on 10/26/18 08:48; Admin Dose 1 APPLIC; Start 10/17/18 at 12:00 Lubiprostone (Amitiza) 24 mcg BID PO Last administered on 10/27/18 09:03; Admin Dose 24 MCG; Start 10/20/18 at 21:00 Ciprofloxacin (Cipro) 500 mg BID@06,18 PO Last administered on 10/27/18 05:45; Admin Dose 500 MG; Start 10/21/18 at 18:00 Insulin Glargine (Lantus) 8 units DAILY@1200 SC Last administered on 10/27/18 11:50; Admin Dose 8 UNITS; Start 10/22/18 at 12:00 Lisinopril (Zestril) 20 mg DAILY PO Last administered on 10/27/18 09:03; Admin Dose 20 MG; Start 10/21/18 at 17:30 Hydralazine HCl (Apresoline) 10 mg Q4H PRN IV >160/95; Start 10/21/18 at 17:30 Insulin Aspart (Novolog Insulin Pen) NOVOLOG *MILD* ALGORITHM WITH MEALS BEDTIME SC Last administered on 10/26/18 17:06; Admin Dose 2 UNIT; Start 10/22/18 at 21:00 Diagnostic Test (Pha) (Accu-Chek) 1 ea 02 XX Last administered on 10/25/18 02:12; Admin Dose 1 EA; Start 10/23/18 at 02:00 Multivitamins Therapeutic (Theragran) 1 tab DAILY PO Last administered on 10/27/18 09:02; Admin Dose 1 TAB; Start 10/23/18 at 09:00 Zinc Sulfate (Zinc Sulfate) 220 mg DAILY PO Last administered on 10/27/18 09:02; Admin Dose 220 MG; Start 10/23/18 at 09:00; Stop 11/06/18 at 09:00 Ascorbic Acid (Vitamin C) 250 mg DAILY PO Last administered on 10/27/18 09:03; Admin Dose 250 MG; Start 10/23/18 at 09:00 Collagenase (Santyl) 1 applic DAILY TOP Last administered on 10/27/18 09:03; Admin Dose 1 APPLIC; Start 10/23/18 at 11:00 Caspofungin 50 mg/ Sodium Chloride 250 ml @ 250 mls/hr Q24H IVPB Last administered on 10/26/18at 16:37; Admin Dose 250 MLS/HR; Start 10/24/18 at 14:00 Ferric Sodium Gluconate Complex 125 mg/Sodium Chloride 110 ml @ 110 mls/hr DAILY@1300 IVPB Last administered on 10/26/18at 12:15; Admin Dose 110 MLS/HR; Start 10/24/18 at 13:00; Stop 10/28/18 at 13:59 Metronidazole 100 ml @ 100 mls/hr Q8 IVPB Last administered on 10/27/18at 05:45; Admin Dose 100 MLS/HR; Start 10/24/18 at 14:00 MAGI RAMAN M.D. Oct 27, 2018 11:58
[2018-10-27] MEDS: SOD FERRIC GLUC COMPLX 125 MG in SOD CHLORIDE 0.9% 100 ML IVPB SCH (13:17)
--- NOTE | 2018-10-27 13:47 | CONS ---
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 Echo dense structure seen by tricuspid valve, right atrium and IVC-thrombus, veg etation versus tumor CAD with history of CABG History of renal carcinoma status post nephrectomy approximately 8 years ago History of hypertension Diabetes Paroxysmal atrial fibrillation, intolerant to anticoagulation Newly diagnosed colon cancer Titrate antihypertensives as needed Diuretics as needed Consultation Date/Type/Reason Admit Date/Time Oct 07, 2018 at 03:37 Initial Consult Date 10/07/18 Type of Consult Cardiology Requesting Provider: JAGJIT MONTES MD Date/Time of Note DATE: 10/27/18 TIME: 13:46 24 HR Interval Summary Free Text/Dictation No shortness of breath, palpitations Exam/Review of Systems Vital Signs Vitals Vital Signs Date Temp Pulse Resp B/P (MAP) Pulse Ox O2 O2 Flow FiO2 Time Delivery Rate 10/27/18 97.6 80 17 128/85 99 08:02 (99) 10/25/18 Room Air 20:16 10/24/18 2.0 10:25 Intake and Output 10/26/18 10/26/18 10/27/18 1515:00 23:00 07:00 IntakeIntake Total 310 ml 770 ml 220 ml OutputOutput Total 750 ml 500 ml BalanceBalance 310 ml 20 ml -280 ml Exam Constitutional: alert (No apparent distress) Head: normocephalic Respiratory: other (Coarse breath sounds bilaterally, no wheezing) Cardiovascular: regular rate and rhythm (1 S2 heard) Gastrointestinal: soft, non-tender, bowel sounds Extremities: edema Labs Result Diagram: 10/27/18 0552 10/27/18 0552 Results 24hrs Laboratory Tests Test 10/26/18 17:04 10/26/18 20:41 10/27/18 05:52 10/27/18 07:57 Bedside Glucose 220 172 98 White Blood Count 9.4 # Red Blood Count 3.14 L Hemoglobin 8.4 L Hematocrit 27.1 L Mean Corpuscular 86.3 Volume Mean Corpuscular 26.8 L Hemoglobin Mean Corpuscular 31.0 L Hemoglobin Concent Red Cell 18.0 H Distribution Width Platelet Count 304 # Mean Platelet Volume 9.8 Immature 0.400 Granulocytes % Neutrophils % 76.1 Lymphocytes % 16.6 Monocytes % 4.9 Eosinophils % 1.7 Basophils % 0.3 Nucleated Red Blood 0.0 Cells % Immature 0.040 H Granulocytes # Neutrophils # 7.1 Lymphocytes # 1.6 Monocytes # 0.5 Eosinophils # 0.2 Basophils # 0.0 Nucleated Red Blood 0.0 Cells # Sodium Level 134 L Potassium Level 4.0 Chloride Level 112 H Carbon Dioxide Level 19 L Anion Gap 3 L Blood Urea Nitrogen 15 Creatinine 1.30 H Est Glomerular Filtrat Rate mL/min Glucose Level 101 # Calcium Level 8.4 Test 10/27/18 11:48 Bedside Glucose 140 Medications Medications Current Medications Allopurinol (Zyloprim) 100 mg BID PO Last administered on 10/27/18 09:03; Admin Dose 100 MG; Start 10/07/18 at 21:00 Aspirin (Halfprin) 81 mg DAILY PO Last administered on 10/08/18 08:14; Admin Dose 81 MG; Start 10/08/18 at 09:00; Status Hold Docusate Sodium (Colace) 100 mg TID PO Last administered on 10/27/18 12:11; Admin Dose 100 MG; Start 10/07/18 at 21:00 Pantoprazole (Protonix Tab) 40 mg DAILY@06 PO Last administered on 10/27/18 05:45; Admin Dose 40 MG; Start 10/08/18 at 06:00 IV Flush (NS 3 ml) 3 ml PER PROTOCOL IV ; Start 10/07/18 at 12:30 Ondansetron HCl (Zofran Inj) 4 mg Q6H PRN IV NAUSEA/VOMITING; Start 10/07/18 at 12:30 Acetaminophen (Tylenol Tab) 650 mg Q6H PRN PO .PAIN 1-3 OR TEMP Last administered on 10/27/18 09:02; Admin Dose 650 MG; Start 10/07/18 at 12:30 Acetaminophen/ Hydrocodone Bitart ([place] (5/325)) 1 tab Q6H PRN PO .PAIN 4-6 Last administered on 10/25/18 10:52; Admin Dose 1 TAB; Start 10/07/18 at 12:30 Clonidine (Catapres) 0.1 mg BID PO Last administered on 10/16/18 08:46; Admin Dose 0.1 MG; Start 10/07/18 at 22:00; Status Hold Miscellaneous Information 1 ea NOTE XX ; Start 10/07/18 at 21:00 Glucose (Glutose) 15 gm Q15M PRN PO DECREASED GLUCOSE; Start 10/07/18 at 21:00 Glucose (Glutose) 22.5 gm Q15M PRN PO DECREASED GLUCOSE; Start 10/07/18 at 21:00 Dextrose (D50w Syringe) 25 ml Q15M PRN IV DECREASED GLUCOSE Last administered on 10/21/18 08:09; Admin Dose 25 ML; Start 10/07/18 at 21:00 Dextrose (D50w Syringe) 50 ml Q15M PRN IV DECREASED GLUCOSE; Start 10/07/18 at 21:00 Glucagon (Glucagen) 1 mg Q15M PRN IM DECREASED GLUCOSE; Start 10/07/18 at 21:00 Glucose (Glutose) 15 gm Q15M PRN BUCCAL DECREASED GLUCOSE; Start 10/07/18 at 21:00 Collagenase (Santyl) 1 applic DAILY TOP Last administered on 10/27/18 09:03; Admin Dose 1 APPLIC; Start 10/09/18 at 19:00 Sodium Hypochlorite (Dakins Diluted ()) 1 applic DAILY TP Last administered on 10/26/18 08:48; Admin Dose 1 APPLIC; Start 10/11/18 at 09:00 Quetiapine Fumarate (Seroquel) 25 mg BID@0900,1200 PO Last administered on 08:47; Admin Dose 25 MG; Start 10/11/18 at 12:00 Quetiapine Fumarate (Seroquel) 50 mg HS PO Last administered on 10/26/18 20:39; Admin Dose 50 MG; Start 10/11/18 at 21:00 Morphine Sulfate (morphine) 2 mg Q4H PRN IV SEVERE PAIN LEVEL 7-10 Last administered on 10/22/18 21:25; Admin Dose 2 MG; Start 10/15/18 at 21:00 Collagenase (Santyl) 1 applic DAILY TOP Last administered on 10/26/18 08:48; Admin Dose 1 APPLIC; Start 10/17/18 at 12:00 Lubiprostone (Amitiza) 24 mcg BID PO Last administered on 10/27/18 09:03; Admin Dose 24 MCG; Start 10/20/18 at 21:00 Ciprofloxacin (Cipro) 500 mg BID@06,18 PO Last administered on 10/27/18 05:45; Admin Dose 500 MG; Start 10/21/18 at 18:00 Insulin Glargine (Lantus) 8 units DAILY@1200 SC Last administered on 10/27/18 11:50; Admin Dose 8 UNITS; Start 10/22/18 at 12:00 Lisinopril (Zestril) 20 mg DAILY PO Last administered on 10/27/18 09:03; Admin Dose 20 MG; Start 10/21/18 at 17:30 Hydralazine HCl (Apresoline) 10 mg Q4H PRN IV >160/95; Start 10/21/18 at 17:30 Insulin Aspart (Novolog Insulin Pen) NOVOLOG *MILD* ALGORITHM WITH MEALS BED TIME SC Last administered on 10/26/18 17:06; Admin Dose 2 UNIT; Start 10/22/18 at 21:00 Diagnostic Test (Pha) (Accu-Chek) 1 ea 02 XX Last administered on 10/25/18 02:12; Admin Dose 1 EA; Start 10/23/18 at 02:00 Multivitamins Therapeutic (Theragran) 1 tab DAILY PO Last administered on 10/27/18 09:02; Admin Dose 1 TAB; Start 10/23/18 at 09:00 Zinc Sulfate (Zinc Sulfate) 220 mg DAILY PO Last administered on 10/27/18 09:02; Admin Dose 220 MG; Start 10/23/18 at 09:00; Stop 11/06/18 at 09:00 Ascorbic Acid (Vitamin C) 250 mg DAILY PO Last administered on 10/27/18 09:03; Admin Dose 250 MG; Start 10/23/18 at 09:00 Collagenase (Santyl) 1 applic DAILY TOP Last administered on 10/27/18 09:03; Admin Dose 1 APPLIC; Start 10/23/18 at 11:00 Caspofungin 50 mg/ Sodium Chloride 250 ml @ 250 mls/hr Q24H IVPB Last administered on 10/26/18 16:37; Admin Dose 250 MLS/HR; Start 10/24/18 at 14:00 Ferric Sodium Gluconate Complex 125 mg/Sodium Chloride 110 ml @ 110 mls/hr DAILY@1300 IVPB Last administered on 10/27/18at 13:17; Admin Dose 110 MLS/HR; Start 10/24/18 at 13:00; Stop 10/28/18 at 13:59 Metronidazole 100 ml @ 100 mls/hr Q8 IVPB Last administered on 10/27/18at 05:45; Admin Dose 100 MLS/HR; Start 10/24/18 at 14:00 Alex Chávez DO Oct 27, 2018 13:47
[2018-10-27 14:03] VITALS: BP 134/77; PULSE 78; RESP 18
--- NOTE | 2018-10-27 14:54 | PN ---
Date/Time of Note Date/Time of Note DATE: 10/27/18 TIME: 14:53 Assessment/Plan VTE Prophylaxis [place] [facility] risk: 8 SCD applied [place] [facility] No SCD contraindicated: other Pharmacological prophylaxis: LMWH Lines/Catheters IV Catheter Type (from [facility] Mid Line Urinary Cath still in place: Yes Reason Cath still needed: skin wounds contaminated by urine Assessment/Plan Hospital Course -Status post colonoscopy with notion of ulcerated lesions consistent with malignancy. Pathology revealed well-differentiated carcinoma. Dr. Valencia is asked to see patient in oncology consultation. -Chronic gastritis per EGD, continue PPI. -Anemia, history of emesis at home and loss of appetite. Dr. Winkler is following in gastroenterology consultation. Colonoscopy recommended however patient is unable to take p.o. prep, patient's son refused NG tube placement. Patient is not able to tolerate Gastrografin enema. -Sepsis secondary to urinary tract infection and possible early pneumonia, resolving. Continue antibiotics per ID. Dr. Elias is following in infection disease consultation. -UTI. Status post treatment with antibiotics. -Hyperkalemia, resolved, status post treatment -Acute kidney injury, continue gentle hydration, monitor BUN and creatinine. Dr. Arreaga is following in nephrology consultation. -Hypertension -Systolic congestive heart failure. Dr. Chávez is following in cardiology consultation. -Cardiomyopathy with ejection fraction 50% -Atrial fibrillation, patient did not tolerate anticoagulation in the past due to bleeding and anemia, patient was on aspirin which is currently held due sig nificant drop in hemoglobin. -Coronary artery disease, status post CABG -Diabetes mellitus type 2, continue Lantus and pre-meal NovoLog. -History of endocarditis, status post treatment -Sacral, right foot, and left garcia wounds present on admission. Continue current care per wound care recommendations. -Right heel wound with early osteomyelitis, status post debridement and application of allograft and wound VAC on 10/15/2018, Dr. Garland is following and podiatry consultation. Continue antibiotics per ID. -History of left femoral artery thrombectomy, left garcia open wound. Continue current wound care. Dr. Dawson is following in vascular surgery consultation. No inpatient procedures planned. Result Diagram: 10/27/18 0552 10/27/18 0552 Results 24hrs Laboratory Tests Test 10/26/18 17:04 10/26/18 20:41 10/27/18 05:52 10/27/18 07:57 Bedside Glucose 220 172 98 White Blood Count 9.4 # Red Blood Count 3.14 L Hemoglobin 8.4 L Hematocrit 27.1 L Mean Corpuscular 86.3 Volume Mean Corpuscular 26.8 L Hemoglobin Mean Corpuscular 31.0 L Hemoglobin Concent Red Cell 18.0 H Distribution Width Platelet Count 304 # Mean Platelet Volume 9.8 Immature 0.400 Granulocytes % Neutrophils % 76.1 Lymphocytes % 16.6 Monocytes % 4.9 Eosinophils % 1.7 Basophils % 0.3 Nucleated Red Blood 0.0 Cells % Immature 0.040 H Granulocytes # Neutrophils # 7.1 Lymphocytes # 1.6 Monocytes # 0.5 Eosinophils # 0.2 Basophils # 0.0 Nucleated Red Blood 0.0 Cells # Sodium Level 134 L Potassium Level 4.0 Chloride Level 112 H Carbon Dioxide Level 19 L Anion Gap 3 L Blood Urea Nitrogen 15 Creatinine 1.30 H Est Glomerular Filtrat Rate mL/min Glucose Level 101 # Calcium Level 8.4 Test 10/27/18 11:48 Bedside Glucose 140 Subjective 24 Hr Interval Summary Free Text/Dictation Patient has no complaints Exam/Review of Systems Exam Vitals Vital Signs Date Temp Pulse Resp B/P (MAP) Pulse Ox O2 O2 Flow FiO2 Time Delivery Rate 10/27/18 98.4 78 18 134/77 97 14:03 (96) 10/25/18 Room Air 20:16 10/24/18 2.0 10:25 Intake and Output 10/26/18 10/26/18 10/27/18 1515:00 23:00 07:00 IntakeIntake Total 310 ml 770 ml 220 ml OutputOutput Total 750 ml 500 ml BalanceBalance 310 ml 20 ml -280 ml Constitutional: well developed Head: normocephalic, atraumatic Neck: supple Respiratory: diminished breath sounds Cardiovascular: regular rate and rhythm Gastrointestinal: soft, non-tender Extremities: normal pulses Results Results 24hrs Laboratory Tests Test 10/26/18 17:04 10/26/18 20:41 10/27/18 05:52 10/27/18 07:57 Bedside Glucose 220 172 98 White Blood Count 9.4 # Red Blood Count 3.14 L Hemoglobin 8.4 L Hematocrit 27.1 L Mean Corpuscular 86.3 Volume Mean Corpuscular 26.8 L Hemoglobin Mean Corpuscular 31.0 L Hemoglobin Concent Red Cell 18.0 H Distribution Width Platelet Count 304 # Mean Platelet Volume 9.8 Immature 0.400 Granulocytes % Neutrophils % 76.1 Lymphocytes % 16.6 Monocytes % 4.9 Eosinophils % 1.7 Basophils % 0.3 Nucleated Red Blood 0.0 Cells % Immature 0.040 H Granulocytes # Neutrophils # 7.1 Lymphocytes # 1.6 Monocytes # 0.5 Eosinophils # 0.2 Basophils # 0.0 Nucleated Red Blood 0.0 Cells # Sodium Level 134 L Potassium Level 4.0 Chloride Level 112 H Carbon Dioxide Level 19 L Anion Gap 3 L Blood Urea Nitrogen 15 Creatinine 1.30 H Est Glomerular Filtrat Rate mL/min Glucose Level 101 # Calcium Level 8.4 Test 10/27/18 11:48 Bedside Glucose 140 Medications Medication Current Medications Allopurinol (Zyloprim) 100 mg BID PO Last administered on 10/27/18 09:03; Admin Dose 100 MG; Start 10/07/18 at 21:00 Aspirin (Halfprin) 81 mg DAILY PO Last administered on 10/08/18at 08:14; Admin Dose 81 MG; Start 10/08/18 at 09:00; Status Hold Docusate Sodium (Colace) 100 mg TID PO Last administered on 10/27/18 12:11; Admin Dose 100 MG; Start 10/07/18 at 21:00 Pantoprazole (Protonix Tab) 40 mg DAILY@06 PO Last administered on 10/27/18 05:45; Admin Dose 40 MG; Start 10/08/18 at 06:00 IV Flush (NS 3 ml) 3 ml PER PROTOCOL IV ; Start 10/07/18 at 12:30 Ondansetron HCl (Zofran Inj) 4 mg Q6H PRN IV NAUSEA/VOMITING; Start 10/07/18 at 12:30 Acetaminophen (Tylenol Tab) 650 mg Q6H PRN PO .PAIN 1-3 OR TEMP Last administered on 10/27/18 09:02; Admin Dose 650 MG; Start 10/07/18 at 12:30 Acetaminophen/ Hydrocodone Bitart ([place] (5/325)) 1 tab Q6H PRN PO .PAIN 4-6 Last administered on 10/25/18 10:52; Admin Dose 1 TAB; Start 10/07/18 at 12:30 Clonidine (Catapres) 0.1 mg BID PO Last administered on 10/16/18 08:46; Admin Dose 0.1 MG; Start 10/07/18 at 22:00; Status Hold Miscellaneous Information 1 ea NOTE XX ; Start 10/07/18 at 21:00 Glucose (Glutose) 15 gm Q15M PRN PO DECREASED GLUCOSE; Start 10/07/18 at 21:00 Glucose (Glutose) 22.5 gm Q15M PRN PO DECREASED GLUCOSE; Start 10/07/18 at 21:00 Dextrose (D50w Syringe) 25 ml Q15M PRN IV DECREASED GLUCOSE Last administered on 10/21/18 08:09; Admin Dose 25 ML; Start 10/07/18 at 21:00 Dextrose (D50w Syringe) 50 ml Q15M PRN IV DECREASED GLUCOSE; Start 10/07/18 at 21:00 Glucagon (Glucagen) 1 mg Q15M PRN IM DECREASED GLUCOSE; Start 10/07/18 at 21:00 Glucose (Glutose) 15 gm Q15M PRN BUCCAL DECREASED GLUCOSE; Start 10/07/18 at 21:00 Collagenase (Santyl) 1 applic DAILY TOP Last administered on 10/27/18 09:03; Admin Dose 1 APPLIC; Start 10/09/18 at 19:00 Sodium Hypochlorite (Dakins Diluted (40)) 1 applic DAILY TP Last administered on 10/26/18 08:48; Admin Dose 1 APPLIC; Start 10/11/18 at 09:00 Quetiapine Fumarate (Seroquel) 25 mg BID@0900,1200 PO Last administered on 10/26/18 08:47; Admin Dose 25 MG; Start 10/11/18 at 12:00 Quetiapine Fumarate (Seroquel) 50 mg HS PO Last administered on 10/26/18 20:39; Admin Dose 50 MG; Start 10/11/18 at 21:00 Morphine Sulfate (morphine) 2 mg Q4H PRN IV SEVERE PAIN LEVEL 7-10 Last administered on 10/22/18 21:25; Admin Dose 2 MG; Start 10/15/18 at 21:00 Collagenase (Santyl) 1 applic DAILY TOP Last administered on 10/26/18 08:48; Admin Dose 1 APPLIC; Start 10/17/18 at 12:00 Lubiprostone (Amitiza) 24 mcg BID PO Last administered on 10/27/18 09:03; Admin Dose 24 MCG; Start 10/20/18 at 21:00 Ciprofloxacin (Cipro) 500 mg BID@06,18 PO Last administered on 10/27/18 05:45; Admin Dose 500 MG; Start 10/21/18 at 18:00 Insulin Glargine (Lantus) 8 units DAILY@1200 SC Last administered on 10/27/18 11:50; Admin Dose 8 UNITS; Start 10/22/18 at 12:00 Lisinopril (Zestril) 20 mg DAILY PO Last administered on 10/27/18 09:03; Admin Dose 20 MG; Start 10/21/18 at 17:30 Hydralazine HCl (Apresoline) 10 mg Q4H PRN IV >160/95; Start 10/21/18 at 17:30 Insulin Aspart (Novolog Insulin Pen) NOVOLOG *MILD* ALGORITHM WITH MEALS BEDTIME SC Last administered on 10/26/18 17:06; Admin Dose 2 UNIT; Start 10/22/18 at 21:00 Diagnostic Test (Pha) (Accu-Chek) 1 ea 02 XX Last administered on 10/25/18 02:12; Admin Dose 1 EA; Start 10/23/18 at 02:00 Multivitamins Therapeutic (Theragran) 1 tab DAILY PO Last administered on 10/27/18 09:02; Admin Dose 1 TAB; Start 10/23/18 at 09:00 Zinc Sulfate (Zinc Sulfate) 220 mg DAILY PO Last administered on 10/27/18 09:02; Admin Dose 220 MG; Start 10/23/18 at 09:00; Stop 11/06/18 at 09:00 Ascorbic Acid (Vitamin C) 250 mg DAILY PO Last administered on 10/27/18 09:03; Admin Dose 250 MG; Start 10/23/18 at 09:00 Collagenase (Santyl) 1 applic DAILY TOP Last administered on 10/27/18 09:03; Admin Dose 1 APPLIC; Start 10/23/18 at 11:00 Caspofungin 50 mg/ Sodium Chloride 250 ml @ 250 mls/hr Q24H IVPB Last administered on 7/28/19at 16:37; Admin Dose 250 MLS/HR; Start 10/24/18 at 14:00 Ferric Sodium Gluconate Complex 125 mg/Sodium Chloride 110 ml @ 110 mls/hr DAILY@1300 IVPB Last administered on 10/27/18at 13:17; Admin Dose 110 MLS/HR; Start 10/24/18 at 13:00; Stop 10/28/18 at 13:59 Metronidazole 100 ml @ 100 mls/hr Q8 IVPB Last administered on 10/27/18at 05:45; Admin Dose 100 MLS/HR; Start 10/24/18 at 14:00 ALICIA HERNANDEZ Oct 27, 2018 14:54
--- NOTE | 2018-10-27 15:21 | CONS ---
Assessment/Plan Assessment/Plan Hospital Course (Demo Recall) SUBJECTIVE: The patient is awake, in no distress. No fevers overnight. MICROBIOLOGY: Urine culture growing, his blood cultures remain negative. Right foot wound culture grew Proteus. ANTIMICROBIALS: She is on Cipro Flagyl and Cancidas. DIAGNOSTICS: CT of the chest, abdomen and pelvis revealed colitis involving the descending and rectosigmoid colon. No bowel obstruction, perforation or abscess, focal wall thickening and enhancement involving the proximal transverse colon concerning for possible primary colonic malignancy, status post partial left nephrectomy with lobulated enhancing 4.6 cm mass arising from the lower pole of left kidney in the surgical bed is compatible with recurrent malignancy. Please see full report in the chart. INDWELLINGS: The patient has Odonnell catheter. PHYSICAL EXAMINATION: GENERAL: This is a chronically ill-appearing, wasted, elderly woman who is in no distress. HEENT: Head atraumatic, normocephalic. Sclerae anicteric. NECK: Supple. CHEST: Rise symmetrical. Breath sounds diminished to bases. HEART: S1, S2. ABDOMEN: Soft, bowel tones present. EXTREMITIES: With right heel to wound VAC. ASSESSMENT: 1. Primary adenocarcinoma of the colon. 2. Colitis per CT. 3. Recurrent renal cancer. 4. Right heel osteomyelitis. 5. Diabetes. 6. Recurrent urinary tract infection. 7. History of coronary artery bypass graft and endocarditis. 8. Failure to thrive. PLAN: Stable, continue abx, f/u surgical and oncology recommendations, pending family's decision regarding plan of care Consultation Date/Type/Reason Admit Date/Time Oct 07, 2018 at 03:37 Initial Consult Date 10/07/18 Type of Consult id Requesting Provider: JAGJIT MONTES MD Date/Time of Note DATE: 10/27/18 TIME: 15:18 Exam/Review of Systems Exam Vitals Vital Signs Date Temp Pulse Resp B/P (MAP) Pulse Ox O2 O2 Flow FiO2 Time Delivery Rate 10/27/18 98.4 78 18 134/77 97 14:03 (96) 10/25/18 Room Air 20:16 10/24/18 2.0 10:25 Intake and Output 10/26/18 10/26/18 10/27/18 1515:00 23:00 07:00 IntakeIntake Total 310 ml 770 ml 220 ml OutputOutput Total 750 ml 500 ml BalanceBalance 310 ml 20 ml -280 ml Results Result Diagram: 10/27/18 0552 10/27/18 0552 Results 24hrs Laboratory Tests Test 10/26/18 17:04 10/26/18 20:41 10/27/18 05:52 10/27/18 07:57 Bedside Glucose 220 172 98 White Blood Count 9.4 # Red Blood Count 3.14 L Hemoglobin 8.4 L Hematocrit 27.1 L Mean Corpuscular 86.3 Volume Mean Corpuscular 26.8 L Hemoglobin Mean Corpuscular 31.0 L Hemoglobin Concent Red Cell 18.0 H Distribution Width Platelet Count 304 # Mean Platelet Volume 9.8 Immature 0.400 Granulocytes % Neutrophils % 76.1 Lymphocytes % 16.6 Monocytes % 4.9 Eosinophils % 1.7 Basophils % 0.3 Nucleated Red Blood 0.0 Cells % Immature 0.040 H Granulocytes # Neutrophils # 7.1 Lymphocytes # 1.6 Monocytes # 0.5 Eosinophils # 0.2 Basophils # 0.0 Nucleated Red Blood 0.0 Cells # Sodium Level 134 L Potassium Level 4.0 Chloride Level 112 H Carbon Dioxide Level 19 L Anion Gap 3 L Blood Urea Nitrogen 15 Creatinine 1.30 H Est Glomerular Filtrat Rate mL/min Glucose Level 101 # Calcium Level 8.4 Test 10/27/18 11:48 Bedside Glucose 140 Medications Medication Current Medications Allopurinol (Zyloprim) 100 mg BID PO Last administered on 10/27/18at 09:03; Admin Dose 100 MG; Start 10/07/18 at 21:00 Aspirin (Halfprin) 81 mg DAILY PO Last administered on 10/08/18at 08:14; Admin Dose 81 MG; Start 10/08/18 at 09:00; Status Hold Docusate Sodium (Colace) 100 mg TID PO Last administered on 10/27/18at 12:11; Admin Dose 100 MG; Start 10/07/18 at 21:00 Pantoprazole (Protonix Tab) 40 mg DAILY@06 PO Last administered on 10/27/18at 05:45; Admin Dose 40 MG; Start 10/08/18 at 06:00 IV Flush (NS 3 ml) 3 ml PER PROTOCOL IV ; Start 10/07/18 at 12:30 Ondansetron HCl (Zofran Inj) 4 mg Q6H PRN IV NAUSEA/VOMITING; Start 10/07/18 at 12:30 Acetaminophen (Tylenol Tab) 650 mg Q6H PRN PO .PAIN 1-3 OR TEMP Last administered on 10/27/18 09:02; Admin Dose 650 MG; Start 10/07/18 at 12:30 Acetaminophen/ Hydrocodone Bitart ([place] (5/325)) 1 tab Q6H PRN PO .PAIN 4-6 Last administered on 10/25/18 10:52; Admin Dose 1 TAB; Start 10/07/18 at 12:30 Clonidine (Catapres) 0.1 mg BID PO Last administered on 10/16/18 08:46; Admin Dose 0.1 MG; Start 10/07/18 at 22:00; Status Hold Miscellaneous Information 1 ea NOTE XX ; Start 10/07/18 at 21:00 Glucose (Glutose) 15 gm Q15M PRN PO DECREASED GLUCOSE; Start 10/07/18 at 21:00 Glucose (Glutose) 22.5 gm Q15M PRN PO DECREASED GLUCOSE; Start 10/07/18 at 21:00 Dextrose (D50w Syringe) 25 ml Q15M PRN IV DECREASED GLUCOSE Last administered on 10/21/18 08:09; Admin Dose 25 ML; Start 10/07/18 at 21:00 Dextrose (D50w Syringe) 50 ml Q15M PRN IV DECREASED GLUCOSE; Start 10/07/18 at 21:00 Glucagon (Glucagen) 1 mg Q15M PRN IM DECREASED GLUCOSE; Start 10/07/18 at 21:00 Glucose (Glutose) 15 gm Q15M PRN BUCCAL DECREASED GLUCOSE; Start 10/07/18 at 21:00 Collagenase (Santyl) 1 applic DAILY TOP Last administered on 10/27/18at 09:03; Admin Dose 1 APPLIC; Start 10/09/18 at 19:00 Sodium Hypochlorite (Dakins Diluted ()) 1 applic DAILY TP Last administered on 10/26/18 08:48; Admin Dose 1 APPLIC; Start 10/11/18 at 09:00 Quetiapine Fumarate (Seroquel) 25 mg BID@0900,1200 PO Last administered on 10/26/18at 08:47; Admin Dose 25 MG; Start 10/11/18 at 12:00 Quetiapine Fumarate (Seroquel) 50 mg HS PO Last administered on 10/26/18 20:39; Admin Dose 50 MG; Start 10/11/18 at 21:00 Morphine Sulfate (morphine) 2 mg Q4H PRN IV SEVERE PAIN LEVEL 7-10 Last administered on 10/22/18 21:25; Admin Dose 2 MG; Start 10/15/18 at 21:00 Collagenase (Santyl) 1 applic DAILY TOP Last administered on 10/26/18 08:48; Admin Dose 1 APPLIC; Start 10/17/18 at 12:00 Lubiprostone (Amitiza) 24 mcg BID PO Last administered on 10/27/18 09:03; Admin Dose 24 MCG; Start 10/20/18 at 21:00 Ciprofloxacin (Cipro) 500 mg BID@06,18 PO Last administered on 10/27/18 05:45; Admin Dose 500 MG; Start 10/21/18 at 18:00 Insulin Glargine (Lantus) 8 units DAILY@1200 SC Last administered on 10/27/18 11:50; Admin Dose 8 UNITS; Start 10/22/18 at 12:00 Lisinopril (Zestril) 20 mg DAILY PO Last administered on 10/27/18 09:03; Admin Dose 20 MG; Start 10/21/18 at 17:30 Hydralazine HCl (Apresoline) 10 mg Q4H PRN IV >160/95; Start 10/21/18 at 17:30 Insulin Aspart (Novolog Insulin Pen) NOVOLOG *MILD* ALGORITHM WITH MEALS BEDTIME SC Last administered on 10/26/18 17:06; Admin Dose 2 UNIT; Start 10/22 at 21:00 Diagnostic Test (Pha) (Accu-Chek) 1 ea 02 XX Last administered on 10/25/18 02:12; Admin Dose 1 EA; Start 10/23/18 at 02:00 Multivitamins Therapeutic (Theragran) 1 tab DAILY PO Last administered on 10/27/18 09:02; Admin Dose 1 TAB; Start 10/23/18 at 09:00 Zinc Sulfate (Zinc Sulfate) 220 mg DAILY PO Last administered on 10/27/18 09:02; Admin Dose 220 MG; Start 10/23/18 at 09:00; Stop 11/06/18 at 09:00 Ascorbic Acid (Vitamin C) 250 mg DAILY PO Last administered on 10/27/18 09:03; Admin Dose 250 MG; Start 10/23/18 at 09:00 Collagenase (Santyl) 1 applic DAILY TOP Last administered on 10/27/18 09:03; Admin Dose 1 APPLIC; Start 10/23/18 at 11:00 Caspofungin 50 mg/ Sodium Chloride 250 ml @ 250 mls/hr Q24H IVPB Last administered on 10/26/18at 16:37; Admin Dose 250 MLS/HR; Start 10/24/18 at 14:00 Ferric Sodium Gluconate Complex 125 mg/Sodium Chloride 110 ml @ 110 mls/hr ALEXANDRU LY@1300 IVPB Last administered on 10/27/18at 13:17; Admin Dose 110 MLS/HR; Start 10/24/18 at 13:00; Stop 10/28/18 at 13:59 Metronidazole 100 ml @ 100 mls/hr Q8 IVPB Last administered on 10/27/18at 05 :45; Admin Dose 100 MLS/HR; Start 10/24/18 at 14:00 BARBARA ORDAZ NP Oct 27, 2018 15:21
[2018-10-27] MEDS: CASPOFUNGIN 50 MG in SOD CHLORIDE 0.9% 250 ML IVPB SCH (16:46)
--- NOTE | 2018-10-27 17:22 | CONS ---
Assessment/Plan Assessment/Plan Assessment/Plan (Daily) 1. acute hyperkalemia due to BRANDON resolved 2 .acute kidney injury on CKD III due to ATN from sepsis + prerenal azotemia- Improving 3. Sepsis due to UTI and PNA 4. acute UTI 5. H/o partial nephrectomy possibly due to RCC as per family 6. H/o CAD s/p CABG , Cardiomyopathy with EF 50%, Chronic Systolic HF, 7. H/O HTN 8. h/o DM II 9. Paroxysmal atrial fibrillation 10. acute encephalpahty possibly due to uremic and metabolic encephalopathy 11. 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 H/o HTN 13. H/o DM II 14. h/O paroxysmal atrial fibrillation Plan: BUN/Cr 15/1.3, Othe electrolytes stable IV abx Caspofungin and IV flagyl, renally dose all abx and monitor electrolytes Renal US showed No hydronephrosis. No nephrolithiasis.- 3.1 x 2 x 2.1 centimeter hypoechoic lesion arising from the lower pole of the left kidney. Follow-up to exclude neoplasm. There is echogenic material layering within the dependent portion of the bladde r. Follow up to exclude infectious, inflammatory, or neoplastic process.- Atrophic left kidney- Family refused MRI abdomen will follow up Consultation Date/Type/Reason Admit Date/Time Oct 07, 2018 at 03:37 Initial Consult Date 10/07/18 Type of Consult NEPHROLOGY Requesting Provider: JAGJIT MONTES MD Date/Time of Note DATE: 10/27/18 TIME: 17:22 Exam/Review of Systems Exam Vitals Vital Signs Date Temp Pulse Resp B/P (MAP) Pulse Ox O2 O2 Flow FiO2 Time Delivery Rate 10/27/18 98.4 78 18 134/77 97 14:03 (96) 10/25/18 Room Air 20:16 10/24/18 2.0 10:25 Intake and Output 10/26/18 10/26/18 10/27/18 1515:00 23:00 07:00 IntakeIntake Total 310 ml 770 ml 220 ml OutputOutput Total 750 ml 500 ml BalanceBalance 310 ml 20 ml -280 ml Exam Constitutional: alert, oriented Respiratory: diminished breath sounds Cardiovascular: irregular rhythm Gastrointestinal: soft, non-tender Genitourinary - Male: other (Incontinent of urine) Musculoskeletal: nl extremities to inspection Extremities: normal pulses Neurological: nl mental status Skin: other (Right foot wound with dressing Results Result Diagram: 10/27/18 0552 10/27/18 0552 Results 24hrs Laboratory Tests Test 10/26/18 20:41 10/27/18 05:52 10/27/18 07:57 10/27/18 11:48 Bedside Glucose 172 98 140 White Blood Count 9.4 # Red Blood Count 3.14 L Hemoglobin 8.4 L Hematocrit 27.1 L Mean Corpuscular 86.3 Volume Mean Corpuscular 26.8 L Hemoglobin Mean Corpuscular 31.0 L Hemoglobin Concent Red Cell 18.0 H Distribution Width Platelet Count 304 # Mean Platelet Volume 9.8 Immature 0.400 Granulocytes % Neutrophils % 76.1 Lymphocytes % 16.6 Monocytes % 4.9 Eosinophils % 1.7 Basophils % 0.3 Nucleated Red Blood 0.0 Cells % Immature 0.040 H Granulocytes # Neutrophils # 7.1 Lymphocytes # 1.6 Monocytes # 0.5 Eosinophils # 0.2 Basophils # 0.0 Nucleated Red Blood 0.0 Cells # Sodium Level 134 L Potassium Level 4.0 Chloride Level 112 H Carbon Dioxide Level 19 L Anion Gap 3 L Blood Urea Nitrogen 15 Creatinine 1.30 H Est Glomerular Filtrat Rate mL/min Glucose Level 101 # Calcium Level 8.4 Test 10/27/18 17:00 Bedside Glucose 141 Medications Medication Current Medications Allopurinol (Zyloprim) 100 mg BID PO Last administered on 10/27/18at 09:03; Admin Dose 100 MG; Start 10/07/18 at 21:00 Aspirin (Halfprin) 81 mg DAILY PO Last administered on 10/08/18at 08:14; Admin Dose 81 MG; Start 10/08/18 at 09:00; Status Hold Docusate Sodium (Colace) 100 mg TID PO Last administered on 10/27/18at 12:11; Admin Dose 100 MG; Start 10/07/18 at 21:00 Pantoprazole (Protonix Tab) 40 mg DAILY@06 PO Last administered on 10/27/18at 05:45; Admin Dose 40 MG; Start 10/08/18 at 06:00 IV Flush (NS 3 ml) 3 ml PER PROTOCOL IV ; Start 10/07/18 at 12:30 Ondansetron HCl (Zofran Inj) 4 mg Q6H PRN IV NAUSEA/VOMITING; Start 10/07/18 at 12:30 Acetaminophen (Tylenol Tab) 650 mg Q6H PRN PO .PAIN 1-3 OR TEMP Last administered on 10/27/18 09:02; Admin Dose 650 MG; Start 10/07/18 at 12:30 Acetaminophen/ Hydrocodone Bitart ([place] (5/325)) 1 tab Q6H PRN PO .PAIN 4-6 Last administered on 10/25/18 10:52; Admin Dose 1 TAB; Start 10/07/18 at 12:30 Clonidine (Catapres) 0.1 mg BID PO Last administered on 10/16/18 08:46; Admin Dose 0.1 MG; Start 10/07/18 at 22:00; Status Hold Miscellaneous Information 1 ea NOTE XX ; Start 10/07/18 at 21:00 Glucose (Glutose) 15 gm Q15M PRN PO DECREASED GLUCOSE; Start 10/07/18 at 21:00 Glucose (Glutose) 22.5 gm Q15M PRN PO DECREASED GLUCOSE; Start 10/07/18 at 21:00 Dextrose (D50w Syringe) 25 ml Q15M PRN IV DECREASED GLUCOSE Last administered o n 10/21/18 08:09; Admin Dose 25 ML; Start 10/07/18 at 21:00 Dextrose (D50w Syringe) 50 ml Q15M PRN IV DECREASED GLUCOSE; Start 10/07/18 at 21:00 Glucagon (Glucagen) 1 mg Q15M PRN IM DECREASED GLUCOSE; Start 10/07/18 at 21:00 Glucose (Glutose) 15 gm Q15M PRN BUCCAL DECREASED GLUCOSE; Start 10/07/18 at 21:00 Collagenase (Santyl) 1 applic DAILY TOP Last administered on 10/27/18 09:03; Admin Dose 1 APPLIC; Start 10/09/18 at 19:00 Sodium Hypochlorite (Dakins Diluted ()) 1 applic DAILY TP Last administered on 10/26/18 08:48; Admin Dose 1 APPLIC; Start 10/11/18 at 09:00 Quetiapine Fumarate (Seroquel) 25 mg BID@0900,1200 PO Last administered on 10/26/18 08:47; Admin Dose 25 MG; Start 10/11/18 at 12:00 Quetiapine Fumarate (Seroquel) 50 mg HS PO Last administered on 10/26/18 20:39; Admin Dose 50 MG; Start 10/11/18 at 21:00 Morphine Sulfate (morphine) 2 mg Q4H PRN IV SEVERE PAIN LEVEL 7-10 Last administered on 10/22/18 21:25; Admin Dose 2 MG; Start 10/15/18 at 21:00 Collagenase (Santyl) 1 applic DAILY TOP Last administered on 10/26/18 08:48; Admin Dose 1 APPLIC; Start 10/17/18 at 12:00 Lubiprostone (Amitiza) 24 mcg BID PO Last administered on 10/27/18 09:03; Admin Dose 24 MCG; Start 10/20/18 at 21:00 Ciprofloxacin (Cipro) 500 mg BID@06,18 PO Last administered on 10/27/18 05:45; Admin Dose 500 MG; Start 10/21/18 at 18:00 Insulin Glargine (Lantus) 8 units DAILY@1200 SC Last administered on 10/27/18 11:50; Admin Dose 8 UNITS; Start 10/22/18 at 12:00 Lisinopril (Zestril) 20 mg DAILY PO Last administered on 10/27/18 09:03; Admin Dose 20 MG; Start 10/21/18 at 17:30 Hydralazine HCl (Apresoline) 10 mg Q4H PRN IV >160/95; Start 10/21/18 at 17:30 Insulin Aspart (Novolog Insulin Pen) NOVOLOG *MILD* ALGORITHM WITH MEALS BEDTIME SC Last administered on 10/26/18 17:06; Admin Dose 2 UNIT; Start 10/22/18 at 21:00 Diagnostic Test (Pha) (Accu-Chek) 1 ea 02 XX Last administered on 10/25/18 02:12; Admin Dose 1 EA; Start 10/23/18 at 02:00 Multivitamins Therapeutic (Theragran) 1 tab DAILY PO Last administered on 10/27/18 09:02; Admin Dose 1 TAB; Start 10/23/18 at 09:00 Zinc Sulfate (Zinc Sulfate) 220 mg DAILY PO Last administered on 10/27/18 09:02; Admin Dose 220 MG; Start 10/23/18 at 09:00; Stop 11/06/18 at 09:00 Ascorbic Acid (Vitamin C) 250 mg DAILY PO Last administered on 10/27/18at 09:03; Admin Dose 250 MG; Start 10/23/18 at 09:00 Collagenase (Santyl) 1 applic DAILY TOP Last administered on 10/27/18 09:03; Admin Dose 1 APPLIC; Start 10/23/18 at 11:00 Caspofungin 50 mg/ Sodium Chloride 250 ml @ 250 mls/hr Q24H IVPB Last administered on 10/27/18at 16:46; Admin Dose 250 MLS/HR; Start 10/24/18 at 14:00 Ferric Sodium Gluconate Complex 125 mg/Sodium Chloride 110 ml @ 110 mls/hr DAILY@1300 IVPB Last administered on 10/27/18at 13:17; Admin Dose 110 MLS/HR; Start 10/24/18 at 13:00; Stop 10/28/18 at 13:59 Metronidazole 100 ml @ 100 mls/hr Q8 IVPB Last administered on 10/27/18at 15:19; Admin Dose 100 MLS/HR; Start 10/24/18 at 14:00 EVA TREJO MD Oct 27, 2018 17:22
[2018-10-27 20:00] VITALS: BP 137/59; PULSE 79; RESP 18
--- NOTE | 2018-10-27 22:31 | PN ---
"Date/Time of Note Date/Time of Note DATE: 10/27/18 TIME: 22:26 Assessment/Plan Lines/Catheters IV Catheter Type (from Nrs): Mid Line Odonnell in Place (from Nrs): Yes Assessment/Plan Chief Complaint/Hosp Course 1. 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 Bowel function. Family is not sure if they want surgery for her. More discussions to be had. CT noted without mets but rather inflammation. -Oncology recommendations noted -Further discussions with family members 2. Right buttock wound; Foot wound with osteo; right buttock wound healing -debridement of right buttock wound as needed -continue local care -frequent turning and off-loading -low air loss mattress -vitamin c -short term zinc -optimize nutrition -foot wounds per podiatry> status post debridement currently with wound VAC -calf wound per vascular 3. BRANDON: Resolved; hypoechoic lesion left kidney, possible neoplasm; hx of renal ca and nephrectomy; CT noted with possible recurrent left kidney malignancy -Monitor 4. Microcytic hypochromic anemia: sp prbc tx; colonoscopy pending today -monitor -transfuse as needed 5. Obesity bmi 31 -diet and exercise optimization -encourage weight loss 6. Poor appetite: -supportive -treat infections 7. Hepatic steatosis: -nutrition and weight optimization -medical fu 8. Gastritis: -PPI 9. Constipation: now + bowel function -per gi 10. Diabetes with hypoglycemic episode -glucose optimization - med adjustment per medical team 11. UTI: -abx per sensitivity -frequent bladder emptying/cath care 12. Renal cell carcinoma recommended to tertiary ctr Thank you Subjective 24 Hr Interval Summary Spoke with son again today. He is not still not sure if he wants sx. He will think about it and further d/w family. Comfortable. No pain. + Bowel function. No fevers, labored breathing, congested cough, vomiting, diarrhea, seizure, rash. No visual or neuro changes. Non ambulatory. CT noted without mets but colonic inflammation. Exam/Review of Systems Vital Signs Vitals Vital Signs Date Temp Pulse Resp B/P (MAP) Pulse Ox O2 O2 Flow FiO2 Time Delivery Rate 10/27/18 98.0 79 18 137/59 99 20:00 (85) 10/25/18 Room Air 20:16 10/24/18 2.0 10:25 Intake and Output 710/26/18 10/27/18 1515:00 23:00 07:00 IntakeIntake Total 310 ml 770 ml 220 ml OutputOutput Total 750 ml 500 ml BalanceBalance 310 ml 20 ml -280 ml Exam Free Text/Dictation Constitutional: responsive, nad, obese No oriented (confused) Psych: flat affect Head: normocephalic, atraumatic Eyes: nl conjunctiva, EOMI, nl lids, nl sclera ENMT: nl external ears & nose, nl nasal mucosa & septum, mucosa pink and moist Neck: supple, non-tender Respiratory: normal air movement; No congested cough Cardiovascular: regular rate and rhythm, nl pulses; No edema Gastrointestinal: soft, non-tender; obese No distended, No rebound or guarding Genitourinary - Female: nl external genitalia Musculoskeletal: nl extremities to inspection, muscle weakness (gen weakness) Extremities: normal pulses; No edema, No pitting pedal edema Neurological: nl speech; No nl mental status (forgetful), No nl strength (gen weakness), non ambulatory Skin: other (Multiple wounds: right buttock: clean, granulating, no periwound erythema/drainage/odor | Left calf:min slough, wrapped | Bilateral foot wounds; r foot w wound vac); No rash or lesions Results Result Diagram: 10/27/18 0552 10/27/18 0552 MARINA WADE MD Oct 27, 2018 22:31"
[2018-10-28 02:00] VITALS: BP 112/57; PULSE 86; RESP 18
[2018-10-28] MEDS: ACCU-CHEK XX SCH (02:00)
[2018-10-28] MEDS: PANTOPRAZOLE (EC) 40 MG TAB PO SCH (05:37)
[2018-10-28] MEDS: CIPROFLOXACIN 500 MG TAB PO SCH ×2 (05:37→18:04)
[2018-10-28] MEDS: metroNIDAZOLE 500 MG/NS (PMX) 100 ML IVPB SCH ×3 (05:37→22:54)
[2018-10-28 08:00] VITALS: BP 133/53; PULSE 74; RESP 16
[2018-10-28] MEDS: INSULIN ASPART [NOVOLOG] 3 ML PEN SC SCH ×4 (08:00→21:00)
--- NOTE | 2018-10-28 08:14 | CONS ---
Assessment/Plan Assessment/Plan Hospital Course (Demo Recall) 82 yo female with hl/o anemia 1. Urinary tract infection. 2. Sepsis. -gram positive rods in foot wound cx. -pos urine cx 3. Status post coronary artery bypass graft. 4. Peripheral vascular disease. 5. Atrial fibrillation. 6. Status post surgery for renal cell carcinoma 8 years ago. 7. Diabetes. 8. Hypertension. 9. Severe anemia. -IV iron 10. Transaminitis -elevated ALT/AST -improving -CBD 7mm, t bili wnl. 11. Elevated CEA: 24.1 12. Chronic gastritis 13. S/P EGD 10/13 14. Fatty liver with possible hepatocellular disease noted on US 15. 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 Winkler Consultation Date/Type/Reason Admit Date/Time Oct 07, 2018 at 03:37 Initial Consult Date 10/07/18 Requesting Provider: JAGJIT MONTES MD Date/Time of Note DATE: 10/28/18 TIME: 08:09 24 HR Interval Summary Free Text/Dictation No acute changes. Exam/Review of Systems Exam Vitals Vital Signs Date Temp Pulse Resp B/P (MAP) Pulse Ox O2 O2 Flow FiO2 Time Delivery Rate 10/28/18 98.3 86 18 112/57 96 02:00 (75) 10/25/18 Room Air 20:16 10/24/18 2.0 10:25 Intake and Output 10/27/18 10/27/18 10/28/18 1515:00 23:00 07:00 IntakeIntake Total 350 ml 470 ml 400 ml OutputOutput Total 400 ml 300 ml BalanceBalance 350 ml 70 ml 100 ml Constitutional: alert Psych: no complaints Head: normocephalic Eyes: nl sclera, PERRL Respiratory: normal air movement Cardiovascular: regular rate and rhythm Gastrointestinal: soft, bowel sounds, tender Neurological: nl mental status Results Result Diagram: 10/27/18 0552 10/28/18 0605 Results 24hrs Laboratory Tests Test 10/27/18 11:48 10/27/18 17:00 10/27/18 20:42 10/28/18 06:05 Bedside Glucose 140 141 97 Blood Urea Nitrogen 13 Creatinine 1.09 H Medications Medication Current Medications Allopurinol (Zyloprim) 100 mg BID PO Last administered on 10/27/18 20:44; Admin Dose 100 MG; Start 10/07/18 at 21:00 Aspirin (Halfprin) 81 mg DAILY PO Last administered on 10/08/18 08:14; Admin Dose 81 MG; Start 10/08/18 at 09:00; Status Hold Docusate Sodium (Colace) 100 mg TID PO Last administered on 10/27/18 20:44; Admin Dose 100 MG; Start 10/07/18 at 21:00 Pantoprazole (Protonix Tab) 40 mg DAILY@06 PO Last administered on 10/28/18 05:37; Admin Dose 40 MG; Start 10/08/18 at 06:00 IV Flush (NS 3 ml) 3 ml PER PROTOCOL IV ; Start 10/07/18 at 12:30 Ondansetron HCl (Zofran Inj) 4 mg Q6H PRN IV NAUSEA/VOMITING; Start 10/07/18 at 12:30 Acetaminophen (Tylenol Tab) 650 mg Q6H PRN PO .PAIN 1-3 OR TEMP Last administered on 10/27/18 09:02; Admin Dose 650 MG; Start 10/07/18 at 12:30 Acetaminophen/ Hydrocodone Bitart ([place] (5/325)) 1 tab Q6H PRN PO .PAIN 4-6 Last administered on 10/25/18 10:52; Admin Dose 1 TAB; Start 10/07/18 at 12:30 Clonidine (Catapres) 0.1 mg BID PO Last administered on 10/16/18 08:46; Admin Dose 0.1 MG; Start 10/07/18 at 22:00; Status Hold Miscellaneous Information 1 ea NOTE XX ; Start 10/07/18 at 21:00 Glucose (Glutose) 15 gm Q15M PRN PO DECREASED GLUCOSE; Start 10/07/18 at 21:00 Glucose (Glutose) 22.5 gm Q15M PRN PO DECREASED GLUCOSE; Start 10/07/18 at 21:00 Dextrose (D50w Syringe) 25 ml Q15M PRN IV DECREASED GLUCOSE Last administered on 10/21/18 08:09; Admin Dose 25 ML; Start 10/07/18 at 21:00 Dextrose (D50w Syringe) 50 ml Q15M PRN IV DECREASED GLUCOSE; Start 10/07/18 at 21:00 Glucagon (Glucagen) 1 mg Q15M PRN IM DECREASED GLUCOSE; Start 10/07/18 at 21:00 Glucose (Glutose) 15 gm Q15M PRN BUCCAL DECREASED GLUCOSE; Start 10/07/18 at 21:00 Collagenase (Santyl) 1 applic DAILY TOP Last administered on 10/27/18 09:03; Admin Dose 1 APPLIC; Start 10/09/18 at 19:00 Sodium Hypochlorite (Dakins Diluted ()) 1 applic DAILY TP Last administered on 10/26/18 08:48; Admin Dose 1 APPLIC; Start 10/11/18 at 09:00 Quetiapine Fumarate (Seroquel) 25 mg BID@0900,1200 PO Last administered on 10/26/18 08:47; Admin Dose 25 MG; Start 10/11/18 at 12:00 Quetiapine Fumarate (Seroquel) 50 mg HS PO Last administered on 10/27/18 20:44; Admin Dose 50 MG; Start 10/11/18 at 21:00 Morphine Sulfate (morphine) 2 mg Q4H PRN IV SEVERE PAIN LEVEL 7-10 Last administered on 10/22/18 21:25; Admin Dose 2 MG; Start 10/15/18 at 21:00 Collagenase (Santyl) 1 applic DAILY TOP Last administered on 10/27/18 21:33; Admin Dose 1 APPLIC; Start 10/17/18 at 12:00 Lubiprostone (Amitiza) 24 mcg BID PO Last administered on 10/27/18 20:44; Admin Dose 24 MCG; Start 10/20/18 at 21:00 Ciprofloxacin (Cipro) 500 mg BID@06,18 PO Last administered on 10/28/18 05:37; Admin Dose 500 MG; Start 10/21/18 at 18:00 Insulin Glargine (Lantus) 8 units DAILY@1200 SC Last administered on 10/27/18 11:50; Admin Dose 8 UNITS; Start 10/22/18 at 12:00 Lisinopril (Zestril) 20 mg DAILY PO Last administered on 10/27/18 09:03; Admin Dose 20 MG; Start 10/21/18 at 17:30 Hydralazine HCl (Apresoline) 10 mg Q4H PRN IV >160/95; Start 10/21/18 at 17:30 Insulin Aspart (Novolog Insulin Pen) NOVOLOG *MILD* ALGORITHM WITH MEALS BEDTIME SC Last administered on 10/27/18 17:29; Admin Dose 1 UNIT; Start 10/22/18 at 21:00 Diagnostic Test (Pha) (Accu-Chek) 1 ea 02 XX Last administered on 10/25/18 02:12; Admin Dose 1 EA; Start 10/23/18 at 02:00 Multivitamins Therapeutic (Theragran) 1 tab DAILY PO Last administered on 10/27/18 09:02; Admin Dose 1 TAB; Start 10/23/18 at 09:00 Zinc Sulfate (Zinc Sulfate) 220 mg DAILY PO Last administered on 10/27/18 09:02; Admin Dose 220 MG; Start 10/23/18 at 09:00; Stop 11/06/18 at 09:00 Ascorbic Acid (Vitamin C) 250 mg DAILY PO Last administered on 10/27/18 09:03; Admin Dose 250 MG; Start 10/23/18 at 09:00 Collagenase (Santyl) 1 applic DAILY TOP Last administered on 10/27/18 09:03; Admin Dose 1 APPLIC; Start 10/23/18 at 11:00 Caspofungin 50 mg/ Sodium Chloride 250 ml @ 250 mls/hr Q24H IVPB Last administered on 10/27/18 16:46; Admin Dose 250 MLS/HR; Start 10/24/18 at 14:00 Ferric Sodium Gluconate Complex 125 mg/Sodium Chloride 110 ml @ 110 mls/hr DAILY@1300 IVPB Last administered on 10/27/18 13:17; Admin Dose 110 MLS/HR; Start 10/24/18 at 13:00; Stop 10/28/18 at 13:59 Metronidazole 100 ml @ 100 mls/hr Q8 IVPB Last administered on 10/28/18 05:37; Admin Dose 100 MLS/HR; Start 10/24/18 at 14:00 MART CALDERON Oct 28, 2018 08:14
[2018-10-28] MEDS: DEXTROSE 50% 50 ML SYRINGE IV PRN (08:34)
[2018-10-28] MEDS: ALLOPURINOL 100 MG TAB PO SCH ×2 (09:00→20:55)
[2018-10-28] MEDS: DOCUSATE SODIUM 100 MG CAP PO SCH ×3 (09:00→20:55)
[2018-10-28] MEDS: QUETIAPINE 25 MG TAB PO SCH ×3 (09:00→20:55)
[2018-10-28] MEDS: DAKINS 0.0125%(1/40) 473 ML SOLUTION TP SCH (09:00)
[2018-10-28] MEDS: LISINOPRIL 20 MG TAB PO SCH (09:00)
[2018-10-28] MEDS: MULTIVITAMINS THERAPEUTIC TAB PO SCH (09:00)
[2018-10-28] MEDS: ASCORBIC ACID 250 MG TAB PO SCH (09:00)
[2018-10-28] MEDS: LUBIPROSTONE 24 MCG CAP PO SCH ×2 (09:00→20:55)
[2018-10-28] MEDS: ZINC SULFATE 220 MG CAP PO SCH (09:00)
[2018-10-28] MEDS: INSULIN GLARGINE [LANTus] (100 UNITS/ML) SYG SC SCH (12:00)
--- NOTE | 2018-10-28 13:25 | PN ---
"Date/Time of Note Date/Time of Note DATE: 10/28/18 TIME: 13:23 Assessment/Plan Lines/Catheters IV Catheter Type (from Nrs): Mid Line Odonnell in Place (from Nrs): Yes Assessment/Plan Chief Complaint/Hosp Course 1. 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 Bowel function. Family is not sure if they want surgery for her. More discussions to be had. CT noted without mets but rather inflammation. -Oncology recommendations noted -Further discussions with family members> at this time family continues to be undecided 2. Right buttock wound; Foot wound with osteo; right buttock wound healing -debridement of right buttock wound as needed -continue local care -frequent turning and off-loading -low air loss mattress -vitamin c -short term zinc -optimize nutrition -foot wounds per podiatry> status post debridement currently with wound VAC -calf wound per vascular 3. BRANDON: Resolved; hypoechoic lesion left kidney, possible neoplasm; hx of renal ca and nephrectomy; CT noted with possible recurrent left kidney malignancy -Monitor 4. Microcytic hypochromic anemia: sp prbc tx; colonoscopy pending today -monitor -transfuse as needed 5. Obesity bmi 31 -diet and exercise optimization -encourage weight loss 6. Poor appetite: -supportive -treat infections 7. Hepatic steatosis: -nutrition and weight optimization -medical fu 8. Gastritis: -PPI 9. Constipation: now + bowel function -per gi 10. Diabetes with hypoglycemic episode -glucose optimization - med adjustment per medical team 11. UTI: -abx per sensitivity -frequent bladder emptying/cath care 12. Renal cell carcinoma recommended to tertiary ctr Thank you. Patient seen and examined in collaboration with Dr. Isaac Erwin. Subjective 24 Hr Interval Summary Poor appetite. + bowel function. Family still undecided regarding surgery. No fevers, labored breathing, congested cough, vomiting, diarrhea, seizure, rash. Exam/Review of Systems Vital Signs Vitals Vital Signs Date Temp Pulse Resp B/P (MAP) Pulse Ox O2 O2 Flow FiO2 Time Delivery Rate 10/28/18 96 2.0 08:38 10/28/18 94.6 74 16 133/53 08:00 (79) 10/25/18 Room Air 20:16 Intake and Output 10/27/18 10/27/18 10/28/18 1515:00 23:00 07:00 IntakeIntake Total 350 ml 470 ml 400 ml OutputOutput Total 400 ml 300 ml BalanceBalance 350 ml 70 ml 100 ml Exam Free Text/Dictation Constitutional: responsive, nad, obese No oriented (confused) Psych: flat affect Head: normocephalic, atraumatic Eyes: nl conjunctiva, EOMI, nl lids, nl sclera ENMT: nl external ears & nose, nl nasal mucosa & septum, mucosa pink and moist Neck: supple, non-tender Respiratory: normal air movement; No congested cough Cardiovascular: regular rate and rhythm, nl pulses; No edema Gastrointestinal: soft, non-tender; obese No distended, No rebound or guarding Genitourinary - Female: nl external genitalia Musculoskeletal: nl extremities to inspection, muscle weakness (gen weakness) Extremities: normal pulses; No edema, No pitting pedal edema Neurological: nl speech; No nl mental status (forgetful), No nl strength (gen weakness), non ambulatory Skin: other (Multiple wounds: right buttock: clean, granulating, no periwound erythema/drainage/odor | Left calf:min slough, wrapped | Bilateral foot wounds; r foot w wound vac); No rash or lesions Results Result Diagram: 10/27/18 0552 10/28/18 0605 JUSTINE GUEVARA NP Oct 28, 2018 13:25"
--- NOTE | 2018-10-28 13:36 | CONS ---
Assessment/Plan Assessment/Plan Hospital Course (Demo Recall) SUBJECTIVE: Sleeping, looks comfortable. No fevers overnight. MICROBIOLOGY: Urine culture growing, his blood cultures remain negative. Right foot wound culture grew Proteus. ANTIMICROBIALS: Cipro Flagyl and Cancidas. INDWELLINGS: The patient has Odonnell catheter. PHYSICAL EXAMINATION: GENERAL: This is a chronically ill-appearing, wasted, elderly woman who is in no distress. HEENT: Head atraumatic, normocephalic. Sclerae anicteric. NECK: Supple. CHEST: Rise symmetrical. Breath sounds diminished to bases. HEART: S1, S2. ABDOMEN: Soft, bowel tones present. EXTREMITIES: With right heel to wound VAC. ASSESSMENT: 1. Primary adenocarcinoma of the colon. 2. Colitis per CT. 3. Recurrent renal cancer. 4. Right heel osteomyelitis. 5. Diabetes. 6. Recurrent urinary tract infection. 7. History of coronary artery bypass graft and endocarditis. 8. Failure to thrive. PLAN: Clinically unchanged, continue abx, f/u surgical and oncology recommendations, family to decide regarding goals of care Consultation Date/Type/Reason Admit Date/Time Oct 07, 2018 at 03:37 Initial Consult Date 10/07/18 Type of Consult id Requesting Provider: JAGJIT MONTES MD Date/Time of Note DATE: 10/28/18 TIME: 13:34 Exam/Review of Systems Exam Vitals Vital Signs Date Temp Pulse Resp B/P (MAP) Pulse Ox O2 O2 Flow FiO2 Time Delivery Rate 10/28/18 96 2.0 08:38 10/28/18 94.6 74 16 133/53 08:00 (79) 10/25/18 Room Air 20:16 Intake and Output 10/27/18 10/27/18 10/28/18 1515:00 23:00 07:00 IntakeIntake Total 350 ml 470 ml 400 ml OutputOutput Total 400 ml 300 ml BalanceBalance 350 ml 70 ml 100 ml Results Result Diagram: 10/27/18 0552 10/28/18 0605 Results 24hrs Laboratory Tests Test 10/27/18 17:00 10/27/18 20:42 10/28/18 06:05 10/28/18 08:28 Bedside Glucose 141 97 65 L Blood Urea Nitrogen 13 Creatinine 1.09 H Test 10/28/18 08:44 10/28/18 12:19 Bedside Glucose 125 91 Medications Medication Current Medications Allopurinol (Zyloprim) 100 mg BID PO Last administered on 10/27/18 20:44; Admin Dose 100 MG; Start 10/07/18 at 21:00 Aspirin (Halfprin) 81 mg DAILY PO Last administered on 10/08/18 08:14; Admin Dose 81 MG; Start 10/08/18 at 09:00; Status Hold Docusate Sodium (Colace) 100 mg TID PO Last administered on 10/27/18 20:44; Admin Dose 100 MG; Start 10/07/18 at 21:00 Pantoprazole (Protonix Tab) 40 mg DAILY@06 PO Last administered on 10/28/18 05:37; Admin Dose 40 MG; Start 10/08/18 at 06:00 IV Flush (NS 3 ml) 3 ml PER PROTOCOL IV ; Start 10/07/18 at 12:30 Ondansetron HCl (Zofran Inj) 4 mg Q6H PRN IV NAUSEA/VOMITING; Start 10/07/18 at 12:30 Acetaminophen (Tylenol Tab) 650 mg Q6H PRN PO .PAIN 1-3 OR TEMP Last administered on 10/27/18 09:02; Admin Dose 650 MG; Start 10/07/18 at 12:30 Acetaminophen/ Hydrocodone Bitart ([place] (5/325)) 1 tab Q6H PRN PO .PAIN 4-6 Last administered on 10/25/18 10:52; Admin Dose 1 TAB; Start 10/07/18 at 12:30 Clonidine (Catapres) 0.1 mg BID PO Last administered on 10/16/18 08:46; Admin Dose 0.1 MG; Start 10/07/18 at 22:00; Status Hold Miscellaneous Information 1 ea NOTE XX ; Start 10/07/18 at 21:00 Glucose (Glutose) 15 gm Q15M PRN PO DECREASED GLUCOSE; Start 10/07/18 at 21:00 Glucose (Glutose) 22.5 gm Q15M PRN PO DECREASED GLUCOSE; Start 10/07/18 at 21:00 Dextrose (D50w Syringe) 25 ml Q15M PRN IV DECREASED GLUCOSE Last administered on 10/28/18 08:34; Admin Dose 25 ML; Start 10/07/18 at 21:00 Dextrose (D50w Syringe) 50 ml Q15M PRN IV DECREASED GLUCOSE; Start 10/07/18 at 21:00 Glucagon (Glucagen) 1 mg Q15M PRN IM DECREASED GLUCOSE; Start 10/07/18 at 21:00 Glucose (Glutose) 15 gm Q15M PRN BUCCAL DECREASED GLUCOSE; Start 10/07/18 at 21:00 Collagenase (Santyl) 1 applic DAILY TOP Last administered on 10/27/18 09:03; Admin Dose 1 APPLIC; Start 10/09/18 at 19:00 Sodium Hypochlorite (Dakins Diluted ()) 1 applic DAILY TP Last administered on 10/26/18 08:48; Admin Dose 1 APPLIC; Start 10/11/18 at 09:00 Quetiapine Fumarate (Seroquel) 25 mg BID@0900,1200 PO Last administered on 10/26/18 08:47; Admin Dose 25 MG; Start 10/11/18 at 12:00 Quetiapine Fumarate (Seroquel) 50 mg HS PO Last administered on 10/27/18 20:44; Admin Dose 50 MG; Start 10/11/18 at 21:00 Morphine Sulfate (morphine) 2 mg Q4H PRN IV SEVERE PAIN LEVEL 7-10 Last administered on 10/22/18 21:25; Admin Dose 2 MG; Start 10/15/18 at 21:00 Collagenase (Santyl) 1 applic DAILY TOP Last administered on 10/27/18 21:33; Admin Dose 1 APPLIC; Start 10/17/18 at 12:00 Lubiprostone (Amitiza) 24 mcg BID PO Last administered on 10/27/18 20:44; Admin Dose 24 MCG; Start 10/20/18 at 21:00 Ciprofloxacin (Cipro) 500 mg BID@06,18 PO Last administered on 10/28/18 05:37; Admin Dose 500 MG; Start 10/21/18 at 18:00 Insulin Glargine (Lantus) 8 units DAILY@1200 SC Last administered on 10/27/18 11:50; Admin Dose 8 UNITS; Start 10/22/18 at 12:00 Lisinopril (Zestril) 20 mg DAILY PO Last administered on 10/27/18 09:03; Admin Dose 20 MG; Start 10/21/18 at 17:30 Hydralazine HCl (Apresoline) 10 mg Q4H PRN IV >160/95; Start 10/21/18 at 17:30 Insulin Aspart (Novolog Insulin Pen) NOVOLOG *MILD* ALGORITHM WITH MEALS BEDTIME SC Last administered on 10/27/18 17:29; Admin Dose 1 UNIT; Start 10/22/18 at 21:00 Diagnostic Test (Pha) (Accu-Chek) 1 ea 02 XX Last administered on 10/25/18 02:12; Admin Dose 1 EA; Start 10/23/18 at 02:00 Multivitamins Therapeutic (Theragran) 1 tab DAILY PO Last administered on 10/27/18 09:02; Admin Dose 1 TAB; Start 10/23/18 at 09:00 Zinc Sulfate (Zinc Sulfate) 220 mg DAILY PO Last administered on 10/27/18 09:02; Admin Dose 220 MG; Start 10/23/18 at 09:00; Stop 11/06/18 at 09:00 Ascorbic Acid (Vitamin C) 250 mg DAILY PO Last administered on 10/27/18 09:03; Admin Dose 250 MG; Start 10/23/18 at 09:00 Collagenase (Santyl) 1 applic DAILY TOP Last administered on 10/27/18 09:03; Admin Dose 1 APPLIC; Start 10/23/18 at 11:00 Caspofungin 50 mg/ Sodium Chloride 250 ml @ 250 mls/hr Q24H IVPB Last administered on 10/27/18 16:46; Admin Dose 250 MLS/HR; Start 10/24/18 at 14:00 Ferric Sodium Gluconate Complex 125 mg/Sodium Chloride 110 ml @ 110 mls/hr DAILY@1300 IVPB Last administered on 10/27/18 13:17; Admin Dose 110 MLS/HR; Start 10/24/18 at 13:00; Stop 10/28/18 at 13:59 Metronidazole 100 ml @ 100 mls/hr Q8 IVPB Last administered on 10/28/18 05:37; Admin Dose 100 MLS/HR; Start 10/24/18 at 14:00 BARBARA ORDAZ NP Oct 28, 2018 13:36
[2018-10-28] MEDS: SOD FERRIC GLUC COMPLX 125 MG in SOD CHLORIDE 0.9% 100 ML IVPB SCH (13:46)
--- NOTE | 2018-10-28 13:48 | CONS ---
Assessment/Plan Assessment/Plan Assessment/Plan (Daily) 1. acute hyperkalemia due to BRANDON resolved 2 .acute kidney injury on CKD III due to ATN from sepsis + prerenal azotemia- Improving 3. Sepsis due to UTI and PNA 4. acute UTI 5. H/o partial nephrectomy possibly due to RCC as per family 6. H/o CAD s/p CABG , Cardiomyopathy with EF 50%, Chronic Systolic HF, 7. H/O HTN 8. h/o DM II 9. Paroxysmal atrial fibrillation 10. acute encephalpahty possibly due to uremic and metabolic encephalopathy 11. 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 H/o HTN 13. H/o DM II 14. h/O paroxysmal atrial fibrillation Plan: BUN/Cr 13/.09, Othe electrolytes stable IV abx Caspofungin and IV flagyl, renally dose all abx and monitor electrolytes Renal US showed No hydronephrosis. No nephrolithiasis.- 3.1 x 2 x 2.1 centimeter hypoechoic lesion arising from the lower pole of the left kidney. Follow-up to exclude neoplasm. There is echogenic material layering within the dependent portion of the bladd er. Follow up to exclude infectious, inflammatory, or neoplastic process.- Atrophic left kidney- Family refused MRI abdomen will follow up Consultation Date/Type/Reason Admit Date/Time Oct 07, 2018 at 03:37 Initial Consult Date 10/07/18 Type of Consult NEPHROLOGY Requesting Provider: JAGJIT MONTES MD Date/Time of Note DATE: 10/28/18 TIME: 13:48 Exam/Review of Systems Exam Vitals Vital Signs Date Temp Pulse Resp B/P (MAP) Pulse Ox O2 O2 Flow FiO2 Time Delivery Rate 10/28/18 96 2.0 08:38 10/28/18 94.6 74 16 133/53 08:00 (79) 10/25/18 Room Air 20:16 Intake and Output 10/27/18 10/27/18 10/28/18 1515:00 23:00 07:00 IntakeIntake Total 350 ml 470 ml 400 ml OutputOutput Total 400 ml 300 ml BalanceBalance 350 ml 70 ml 100 ml Exam Constitutional: alert, oriented Respiratory: diminished breath sounds Cardiovascular: irregular rhythm Gastrointestinal: soft, non-tender Genitourinary - Male: other (Incontinent of urine) Musculoskeletal: nl extremities to inspection Extremities: normal pulses Neurological: nl mental status Skin: other (Right foot wound with dressing Results Result Diagram: 10/27/18 0552 10/28/18 0605 Results 24hrs Laboratory Tests Test 10/27/18 17:00 10/27/18 20:42 10/28/18 06:05 10/28/18 08:28 Bedside Glucose 141 97 65 L Blood Urea Nitrogen 13 Creatinine 1.09 H Test 10/28/18 08:44 10/28/18 12:19 Bedside Glucose 125 91 Medications Medication Current Medications Allopurinol (Zyloprim) 100 mg BID PO Last administered on 10/27/18at 20:44; Admin Dose 100 MG; Start 10/07/18 at 21:00 Aspirin (Halfprin) 81 mg DAILY PO Last administered on 10/08/18 08:14; Admin Dose 81 MG; Start 10/08/18 at 09:00; Status Hold Docusate Sodium (Colace) 100 mg TID PO Last administered on 10/27/18at 20:44; Ad min Dose 100 MG; Start 10/07/18 at 21:00 Pantoprazole (Protonix Tab) 40 mg DAILY@06 PO Last administered on 10/28/18at 05:37; Admin Dose 40 MG; Start 10/08/18 at 06:00 IV Flush (NS 3 ml) 3 ml PER PROTOCOL IV ; Start 10/07/18 at 12:30 Ondansetron HCl (Zofran Inj) 4 mg Q6H PRN IV NAUSEA/VOMITING; Start 10/07/18 at 12:30 Acetaminophen (Tylenol Tab) 650 mg Q6H PRN PO .PAIN 1-3 OR TEMP Last administered on 10/27/18at 09:02; Admin Dose 650 MG; Start 10/07/18 at 12:30 Acetaminophen/ Hydrocodone Bitart ([place] (5/325)) 1 tab Q6H PRN PO .PAIN 4-6 Last administered on 10/25/18at 10:52; Admin Dose 1 TAB; Start 10/07/18 at 12:30 Clonidine (Catapres) 0.1 mg BID PO Last administered on 10/16/18at 08:46; Admin Dose 0.1 MG; Start 10/07/18 at 22:00; Status Hold Miscellaneous Information 1 ea NOTE XX ; Start 10/07/18 at 21:00 Glucose (Glutose) 15 gm Q15M PRN PO DECREASED GLUCOSE; Start 10/07/18 at 21:00 Glucose (Glutose) 22.5 gm Q15M PRN PO DECREASED GLUCOSE; Start 10/07/18 at 21:00 Dextrose (D50w Syringe) 25 ml Q15M PRN IV DECREASED GLUCOSE Last administered on 10/28/18 08:34; Admin Dose 25 ML; Start 10/07/18 at 21:00 Dextrose (D50w Syringe) 50 ml Q15M PRN IV DECREASED GLUCOSE; Start 10/07/18 at 21:00 Glucagon (Glucagen) 1 mg Q15M PRN IM DECREASED GLUCOSE; Start 10/07/18 at 21:00 Glucose (Glutose) 15 gm Q15M PRN BUCCAL DECREASED GLUCOSE; Start 10/07/18 at 21:00 Collagenase (Santyl) 1 applic DAILY TOP Last administered on 10/27/18at 09:03; Admin Dose 1 APPLIC; Start 10/09/18 at 19:00 Sodium Hypochlorite (Dakins Diluted (40)) 1 applic DAILY TP Last administered on 10/26/18 08:48; Admin Dose 1 APPLIC; Start 10/11/18 at 09:00 Quetiapine Fumarate (Seroquel) 25 mg BID@0900,1200 PO Last administered on 10/26/18 08:47; Admin Dose 25 MG; Start 10/11/18 at 12:00 Quetiapine Fumarate (Seroquel) 50 mg HS PO Last administered on 10/27/18 20:44; Admin Dose 50 MG; Start 10/11/18 at 21:00 Morphine Sulfate (morphine) 2 mg Q4H PRN IV SEVERE PAIN LEVEL 7-10 Last administered on 10/22/18 21:25; Admin Dose 2 MG; Start 10/15/18 at 21:00 Collagenase (Santyl) 1 applic DAILY TOP Last administered on 10/27/18 21:33; Admin Dose 1 APPLIC; Start 10/17/18 at 12:00 Lubiprostone (Amitiza) 24 mcg BID PO Last administered on 10/27/18 20:44; Admin Dose 24 MCG; Start 10/20/18 at 21:00 Ciprofloxacin (Cipro) 500 mg BID@06,18 PO Last administered on 10/28/18 05:37; Admin Dose 500 MG; Start 10/21/18 at 18:00 Insulin Glargine (Lantus) 8 units DAILY@1200 SC Last administered on 10/27/18 11:50; Admin Dose 8 UNITS; Start 10/22/18 at 12:00 Lisinopril (Zestril) 20 mg DAILY PO Last administered on 10/27/18 09:03; Admin Dose 20 MG; Start 10/21/18 at 17:30 Hydralazine HCl (Apresoline) 10 mg Q4H PRN IV >160/95; Start 10/21/18 at 17:30 Insulin Aspart (Novolog Insulin Pen) NOVOLOG *MILD* ALGORITHM WITH MEALS BEDTIME SC Last administered on 10/27/18 17:29; Admin Dose 1 UNIT; Start 10/22/18 at 21:00 Diagnostic Test (Pha) (Accu-Chek) 1 ea 02 XX Last administered on 10/25/18 02:12; Admin Dose 1 EA; Start 10/23/18 at 02:00 Multivitamins Therapeutic (Theragran) 1 tab DAILY PO Last administered on 10/27/18 09:02; Admin Dose 1 TAB; Start 10/23/18 at 09:00 Zinc Sulfate (Zinc Sulfate) 220 mg DAILY PO Last administered on 10/27/18 09:02; Admin Dose 220 MG; Start 10/23/18 at 09:00; Stop 11/06/18 at 09:00 Ascorbic Acid (Vitamin C) 250 mg DAILY PO Last administered on 10/27/18 09:03; Admin Dose 250 MG; Start 10/23/18 at 09:00 Collagenase (Santyl) 1 applic DAILY TOP Last administered on 10/27/18 09:03; Admin Dose 1 APPLIC; Start 10/23/18 at 11:00 Caspofungin 50 mg/ Sodium Chloride 250 ml @ 250 mls/hr Q24H IVPB Last administered on 10/27/18 16:46; Admin Dose 250 MLS/HR; Start 10/24/18 at 14:00 Ferric Sodium Gluconate Complex 125 mg/Sodium Chloride 110 ml @ 110 mls/hr DAILY@1300 IVPB Last administered on 10/27/18 13:17; Admin Dose 110 MLS/HR; Start 10/24/18 at 13:00; Stop 10/28/18 at 13:59 Metronidazole 100 ml @ 100 mls/hr Q8 IVPB Last administered on 10/28/18at 05:37; Admin Dose 100 MLS/HR; Start 10/24/18 at 14:00 EVA TREJO MD Oct 28, 2018 13:48
[2018-10-28] MEDS: COLLAGENASE 5 GM (UD JAR) TOP SCH ×2 (13:52)
--- NOTE | 2018-10-28 14:12 | CONS ---
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 only after the surgical pathology can we determine if patient needs adjuvant therapy. will speak with son. #Recurrent Renal Cancer -pt will need to be referred to urology at a tertiary care center for surgical resection of this mass. #Diabetic foot -Right heel decubitus ulceration stage 4 -Right foot osteomyelitis -management per vascular surgery and podiatry -continue antibiotics #Sepsis 2/2 to UTI and early pneumonia -continue antibiotics Consultation Date/Type/Reason Admit Date/Time Oct 07, 2018 at 03:37 Initial Consult Date 10/24/18 Type of Consult oncology Reason for Consultation colon cancer Requesting Provider: JAGJIT MONTES MD Date/Time of Note DATE: 10/28/18 TIME: 14:09 24 HR Interval Summary Free Text/Dictation pt is still confused Exam/Review of Systems Exam Vitals Vital Signs Date Temp Pulse Resp B/P (MAP) Pulse Ox O2 O2 Flow FiO2 Time Delivery Rate 10/28/18 96 2.0 08:38 10/28/18 94.6 74 16 133/53 08:00 (79) 10/25/18 Room Air 20:16 Intake and Output 10/27/18 10/27/18 10/28/18 1515:00 23:00 07:00 IntakeIntake Total 350 ml 470 ml 400 ml OutputOutput Total 400 ml 300 ml BalanceBalance 350 ml 70 ml 100 ml Constitutional: alert, distress, frail Psych: anxiety, confusion, depression Head: normocephalic Eyes: nl conjunctiva ENMT: nl external ears & nose Neck: supple Respiratory: clear to auscultation Cardiovascular: regular rate and rhythm Gastrointestinal: soft Musculoskeletal: nl extremities to inspection Results Result Diagram: 10/27/18 0552 10/28/18 0605 Results 24hrs Laboratory Tests Test 10/27/18 17:00 10/27/18 20:42 10/28/18 06:05 10/28/18 08:28 Bedside Glucose 141 97 65 L Blood Urea Nitrogen 13 Creatinine 1.09 H Test 10/28/18 08:44 10/28/18 12:19 Bedside Glucose 125 91 Medications Medication Current Medications Allopurinol (Zyloprim) 100 mg BID PO Last administered on 10/27/18 20:44; Admin Dose 100 MG; Start 10/07/18 at 21:00 Aspirin (Halfprin) 81 mg DAILY PO Last administered on 10/08/18 08:14; Admin Dose 81 MG; Start 10/08/18 at 09:00; Status Hold Docusate Sodium (Colace) 100 mg TID PO Last administered on 10/27/18 20:44; Admin Dose 100 MG; Start 10/07/18 at 21:00 Pantoprazole (Protonix Tab) 40 mg DAILY@06 PO Last administered on 10/28/18 05:37; Admin Dose 40 MG; Start 10/08/18 at 06:00 IV Flush (NS 3 ml) 3 ml PER PROTOCOL IV ; Start 10/07/18 at 12:30 Ondansetron HCl (Zofran Inj) 4 mg Q6H PRN IV NAUSEA/VOMITING; Start 10/07/18 at 12:30 Acetaminophen (Tylenol Tab) 650 mg Q6H PRN PO .PAIN 1-3 OR TEMP Last administered on 10/27/18 09:02; Admin Dose 650 MG; Start 10/07/18 at 12:30 Acetaminophen/ Hydrocodone Bitart ([place] (5/325)) 1 tab Q6H PRN PO .PAIN 4-6 Last administered on 10/25/18 10:52; Admin Dose 1 TAB; Start 10/07/18 at 12:30 Clonidine (Catapres) 0.1 mg BID PO Last administered on 10/16/18 08:46; Admin Dose 0.1 MG; Start 10/07/18 at 22:00; Status Hold Miscellaneous Information 1 ea NOTE XX ; Start 10/07/18 at 21:00 Glucose (Glutose) 15 gm Q15M PRN PO DECREASED GLUCOSE; Start 10/07/18 at 21:00 Glucose (Glutose) 22.5 gm Q15M PRN PO DECREASED GLUCOSE; Start 10/07/18 at 21:00 Dextrose (D50w Syringe) 25 ml Q15M PRN IV DECREASED GLUCOSE Last administered on 10/28/18 08:34; Admin Dose 25 ML; Start 10/07/18 at 21:00 Dextrose (D50w Syringe) 50 ml Q15M PRN IV DECREASED GLUCOSE; Start 10/07/18 at 21:00 Glucagon (Glucagen) 1 mg Q15M PRN IM DECREASED GLUCOSE; Start 10/07/18 at 21:00 Glucose (Glutose) 15 gm Q15M PRN BUCCAL DECREASED GLUCOSE; Start 10/07/18 at 21: 00 Collagenase (Santyl) 1 applic DAILY TOP Last administered on 10/28/18 13:52; Admin Dose 1 APPLIC; Start 10/09/18 at 19:00 Sodium Hypochlorite (Dakins Diluted ()) 1 applic DAILY TP Last administered on 10/26/18 08:48; Admin Dose 1 APPLIC; Start 10/11/18 at 09:00 Quetiapine Fumarate (Seroquel) 25 mg BID@0900,1200 PO Last administered on 10/26/18 08:47; Admin Dose 25 MG; Start 10/11/18 at 12:00 Quetiapine Fumarate (Seroquel) 50 mg HS PO Last administered on 10/27/18 20:44; Admin Dose 50 MG; Start 10/11/18 at 21:00 Morphine Sulfate (morphine) 2 mg Q4H PRN IV SEVERE PAIN LEVEL 7-10 Last administered on 10/22/18 21:25; Admin Dose 2 MG; Start 10/15/18 at 21:00 Collagenase (Santyl) 1 applic DAILY TOP Last administered on 10/27/18 21:33; Admin Dose 1 APPLIC; Start 10/17/18 at 12:00 Lubiprostone (Amitiza) 24 mcg BID PO Last administered on 10/27/18 20:44; Admin Dose 24 MCG; Start 10/20/18 at 21:00 Ciprofloxacin (Cipro) 500 mg BID@06,18 PO Last administered on 10/28/18 05:37; Admin Dose 500 MG; Start 10/21/18 at 18:00 Insulin Glargine (Lantus) 8 units DAILY@1200 SC Last administered on 10/27/18 11:50; Admin Dose 8 UNITS; Start 10/22/18 at 12:00 Lisinopril (Zestril) 20 mg DAILY PO Last administered on 10/27/18 09:03; Admin Dose 20 MG; Start 10/21/18 at 17:30 Hydralazine HCl (Apresoline) 10 mg Q4H PRN IV >160/95; Start 10/21/18 at 17:30 Insulin Aspart (Novolog Insulin Pen) NOVOLOG *MILD* ALGORITHM WITH MEALS BEDTIME SC Last administered on 10/27/18 17:29; Admin Dose 1 UNIT; Start 10/22/18 at 21:00 Diagnostic Test (Pha) (Accu-Chek) 1 ea 02 XX Last administered on 10/25/18 02:12; Admin Dose 1 EA; Start 10/23/18 at 02:00 Multivitamins Therapeutic (Theragran) 1 tab DAILY PO Last administered on 10/27/18 09:02; Admin Dose 1 TAB; Start 10/23/18 at 09:00 Zinc Sulfate (Zinc Sulfate) 220 mg DAILY PO Last administered on 10/27/18 09:02; Admin Dose 220 MG; Start 10/23/18 at 09:00; Stop 11/06/18 at 09:00 Ascorbic Acid (Vitamin C) 250 mg DAILY PO Last administered on 10/27/18 09:03; Admin Dose 250 MG; Start 10/23/18 at 09:00 Collagenase (Santyl) 1 applic DAILY TOP Last administered on 10/28/18 13:52; Admin Dose 1 APPLIC; Start 10/23/18 at 11:00 Caspofungin 50 mg/ Sodium Chloride 250 ml @ 250 mls/hr Q24H IVPB Last administered on 10/27/18 16:46; Admin Dose 250 MLS/HR; Start 10/24/18 at 14:00 Metronidazole 100 ml @ 100 mls/hr Q8 IVPB Last administered on 10/28/18 05:37; Admin Dose 100 MLS/HR; Start 10/24/18 at 14:00 MAGI RAMAN M.D. Oct 28, 2018 14:12
[2018-10-28] MEDS ORDERED: FUROSEMIDE 20 MG INJ IV ONE (14:30)
--- NOTE | 2018-10-28 15:15 | PN ---
Date/Time of Note Date/Time of Note DATE: 10/28/18 TIME: 15:14 Assessment/Plan VTE Prophylaxis Risk score (from [facility])>0 risk: 10 SCD applied (from [facility]): No SCD contraindicated: other Pharmacological prophylaxis: LMWH Lines/Catheters IV C[facility]ter Type (from [facility] Mid Line Urinary Cath still in place: Yes Reason Cath still needed: skin wounds contaminated by urine Assessment/Plan Hospital Course -Status post colonoscopy with notion of ulcerated lesions consistent with malignancy. Pathology revealed well-differentiated carcinoma. Dr. Valencia is asked to see patient in oncology consultation. -Chronic gastritis per EGD, continue PPI. -Anemia, history of emesis at home and loss of appetite. Dr. Winkler is following in gastroenterology consultation. Colonoscopy recommended however patient is unable to take p.o. prep, patient's son refused NG tube placement. Patient is not able to tolerate Gastrografin enema. -Sepsis secondary to urinary tract infection and possible early pneumonia, resolving. Continue antibiotics per ID. Dr. Elias is following in infection disease consultation. -UTI. Status post treatment with antibiotics. -Hyperkalemia, resolved, status post treatment -Acute kidney injury, continue gentle hydration, monitor BUN and creatinine. Dr. Arreaga is following in nephrology consultation. -Hypertension -Systolic congestive heart failure. Dr. Chávez is following in cardiology consultation. -Cardiomyopathy with ejection fraction 50% -Atrial fibrillation, patient did not tolerate anticoagulation in the past due to bleeding and anemia, patient was on aspirin which is currently held due si gnificant drop in hemoglobin. -Coronary artery disease, status post CABG -Diabetes mellitus type 2, continue Lantus and pre-meal NovoLog. -History of endocarditis, status post treatment -Sacral, right foot, and left garcia wounds present on admission. Continue current care per wound care recommendations. -Right heel wound with early osteomyelitis, status post debridement and application of allograft and wound VAC on 10/15/2018, Dr. Garland is following and podiatry consultation. Continue antibiotics per ID. -History of left femoral artery thrombectomy, left garcia open wound. Continue current wound care. Dr. Dawson is following in vascular surgery consultation. No inpatient procedures planned. Result Diagram: 10/27/18 0552 10/28/18 0605 Results 24hrs Laboratory Tests Test 10/27/18 17:00 10/27/18 20:42 10/28/18 06:05 10/28/18 08:28 Bedside Glucose 141 97 65 L Blood Urea Nitrogen 13 Creatinine 1.09 H Test 10/28/18 08:44 10/28/18 12:19 Bedside Glucose 125 91 Subjective 24 Hr Interval Summary Free Text/Dictation Patient has swelling in left arm, not eating well currently Exam/Review of Systems Exam Vitals Vital Signs Date Temp Pulse Resp B/P (MAP) Pulse Ox O2 O2 Flow FiO2 Time Delivery Rate 10/28/18 96 2.0 08:38 10/28/18 94.6 74 16 133/53 08:00 (79) 10/25/18 Room Air 20:16 Intake and Output 10/27/18 10/27/18 10/28/18 1515:00 23:00 07:00 IntakeIntake Total 350 ml 470 ml 400 ml OutputOutput Total 400 ml 300 ml BalanceBalance 350 ml 70 ml 100 ml Head: normocephalic, atraumatic Neck: supple Respiratory: diminished breath sounds Cardiovascular: regular rate and rhythm Gastrointestinal: soft, non-tender Extremities: normal pulses Results Results 24hrs Laboratory Tests Test 10/27/18 17:00 10/27/18 20:42 10/28/18 06:05 10/28/18 08:28 Bedside Glucose 141 97 65 L Blood Urea Nitrogen 13 Creatinine 1.09 H Test 10/28/18 08:44 10/28/18 12:19 Bedside Glucose 125 91 Medications Medication Current Medications Allopurinol (Zyloprim) 100 mg BID PO Last administered on 10/27/18at 20:44; Admin Dose 100 MG; Start 10/07/18 at 21:00 Aspirin (Halfprin) 81 mg DAILY PO Last administered on 10/08/18at 08:14; Admin Dose 81 MG; Start 10/08/18 at 09:00; Status Hold Docusate Sodium (Colace) 100 mg TID PO Last administered on 10/27/18at 20:44; Admin Dose 100 MG; Start 10/07/18 at 21:00 Pantoprazole (Protonix Tab) 40 mg DAILY@06 PO Last administered on 10/28/18at 05:37; Admin Dose 40 MG; Start 10/08/18 at 06:00 IV Flush (NS 3 ml) 3 ml PER PROTOCOL IV ; Start 10/07/18 at 12:30 Ondansetron HCl (Zofran Inj) 4 mg Q6H PRN IV NAUSEA/VOMITING; Start 10/07/18 at 12:30 Acetaminophen (Tylenol Tab) 650 mg Q6H PRN PO .PAIN 1-3 OR TEMP Last administered on 10/27/18 09:02; Admin Dose 650 MG; Start 10/07/18 at 12:30 Acetaminophen/ Hydrocodone Bitart ([place] (5/325)) 1 tab Q6H PRN PO .PAIN 4-6 Last administered on 10/25/18 10:52; Admin Dose 1 TAB; Start 10/07/18 at 12:30 Clonidine (Catapres) 0.1 mg BID PO Last administered on 10/16/18 08:46; Admin Dose 0.1 MG; Start 10/07/18 at 22:00; Status Hold Miscellaneous Information 1 ea NOTE XX ; Start 10/07/18 at 21:00 Glucose (Glutose) 15 gm Q15M PRN PO DECREASED GLUCOSE; Start 10/07/18 at 21:00 Glucose (Glutose) 22.5 gm Q15M PRN PO DECREASED GLUCOSE; Start 10/07/18 at 21:00 Dextrose (D50w Syringe) 25 ml Q15M PRN IV DECREASED GLUCOSE Last administered on 10/28/18 08:34; Admin Dose 25 ML; Start 10/07/18 at 21:00 Dextrose (D50w Syringe) 50 ml Q15M PRN IV DECREASED GLUCOSE; Start 10/07/18 at 21:00 Glucagon (Glucagen) 1 mg Q15M PRN IM DECREASED GLUCOSE; Start 10/07/18 at 21:00 Glucose (Glutose) 15 gm Q15M PRN BUCCAL DECREASED GLUCOSE; Start 10/07/18 at 21:00 Collagenase (Santyl) 1 applic DAILY TOP Last administered on 10/28/18 13:52; Admin Dose 1 APPLIC; Start 10/09/18 at 19:00 Sodium Hypochlorite (Dakins Diluted ()) 1 applic DAILY TP Last administered on 10/26/18 08:48; Admin Dose 1 APPLIC; Start 10/11/18 at 09:00 Quetiapine Fumarate (Seroquel) 25 mg BID@0900,1200 PO Last administered on 10/26/18 08:47; Admin Dose 25 MG; Start 10/11/18 at 12:00 Quetiapine Fumarate (Seroquel) 50 mg HS PO Last administered on 10/27/18 20:44; Admin Dose 50 MG; Start 10/11/18 at 21:00 Morphine Sulfate (morphine) 2 mg Q4H PRN IV SEVERE PAIN LEVEL 7-10 Last administered on 10/22/18 21:25; Admin Dose 2 MG; Start 10/15/18 at 21:00 Collagenase (Santyl) 1 applic DAILY TOP Last administered on 10/27/18 21:33; Admin Dose 1 APPLIC; Start 10/17/18 at 12:00 Lubiprostone (Amitiza) 24 mcg BID PO Last administered on 10/27/18 20:44; Admin Dose 24 MCG; Start 10/20/18 at 21:00 Ciprofloxacin (Cipro) 500 mg BID@06,18 PO Last administered on 10/28/18 05:37; Admin Dose 500 MG; Start 10/21/18 at 18:00 Insulin Glargine (Lantus) 8 units DAILY@1200 SC Last administered on 10/27/18 11:50; Admin Dose 8 UNITS; Start 10/22/18 at 12:00 Lisinopril (Zestril) 20 mg DAILY PO Last administered on 10/27/18 09:03; Admin Dose 20 MG; Start 10/21/18 at 17:30 Hydralazine HCl (Apresoline) 10 mg Q4H PRN IV >160/95; Start 10/21/18 at 17:30 Insulin Aspart (Novolog Insulin Pen) NOVOLOG *MILD* ALGORITHM WITH MEALS BEDTIME SC Last administered on 10/27/18 17:29; Admin Dose 1 UNIT; Start 10/22/18 at 21:00 Diagnostic Test (Pha) (Accu-Chek) 1 ea 02 XX Last administered on 10/25/18 02:12; Admin Dose 1 EA; Start 10/23/18 at 02:00 Multivitamins Therapeutic (Theragran) 1 tab DAILY PO Last administered on 10/27/18 09:02; Admin Dose 1 TAB; Start 10/23/18 at 09:00 Zinc Sulfate (Zinc Sulfate) 220 mg DAILY PO Last administered on 10/27/18 09:02; Admin Dose 220 MG; Start 10/23/18 at 09:00; Stop 11/06/18 at 09:00 Ascorbic Acid (Vitamin C) 250 mg DAILY PO Last administered on 10/27/18 09:03; Admin Dose 250 MG; Start 10/23/18 at 09:00 Collagenase (Santyl) 1 applic DAILY TOP Last administered on 10/28/18 13:52; Admin Dose 1 APPLIC; Start 10/23/18 at 11:00 Caspofungin 50 mg/ Sodium Chloride 250 ml @ 250 mls/hr Q24H IVPB Last administered on 10/27/18at 16:46; Admin Dose 250 MLS/HR; Start 10/24/18 at 14:00 Metronidazole 100 ml @ 100 mls/hr Q8 IVPB Last administered on 10/28/18 05:37; Admin Dose 100 MLS/HR; Start 10/24/18 at 14:00 ALICIA HERNANDEZ Oct 28, 2018 15:15
[2018-10-28] MEDS: CASPOFUNGIN 50 MG in SOD CHLORIDE 0.9% 250 ML IVPB SCH (15:39)
[2018-10-28 20:48] VITALS: BP 113/56; PULSE 80; RESP 18
--- NOTE | 2018-10-28 22:06 | CONS ---
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 Echo dense structure seen by tricuspid valve, right atrium and IVC-thrombus, veg etation versus tumor CAD with history of CABG History of renal carcinoma status post nephrectomy approximately 8 years ago History of hypertension Diabetes Paroxysmal atrial fibrillation, intolerant to anticoagulation Newly diagnosed colon cancer Titrate antihypertensives as needed Diuretics as needed Consultation Date/Type/Reason Admit Date/Time Oct 07, 2018 at 03:37 Initial Consult Date 10/07/18 Type of Consult Cardiology Requesting Provider: JAGJIT MONTES MD Date/Time of Note DATE: 10/28/18 TIME: 22:05 24 HR Interval Summary Free Text/Dictation no sob Exam/Review of Systems Vital Signs Vitals Vital Signs Date Temp Pulse Resp B/P (MAP) Pulse Ox O2 O2 Flow FiO2 Time Delivery Rate 10/28/18 98.5 80 18 113/56 96 20:48 (75) 10/28/18 2.0 08:38 10/25/18 Room Air 20:16 Intake and Output 10/27/18 10/27/18 10/28/18 1515:00 23:00 07:00 IntakeIntake Total 350 ml 470 ml 400 ml OutputOutput Total 400 ml 300 ml BalanceBalance 350 ml 70 ml 100 ml Exam Exam sleeping, nad Head: normocephalic Respiratory: other (course bs, no wheeze) Cardiovascular: regular rate and rhythm (s1s2) Gastrointestinal: soft, non-tender, bowel sounds Extremities: edema Labs Result Diagram: 10/27/18 0552 10/28/18 0605 Results 24hrs Laboratory Tests Test 10/28/18 06:05 10/28/18 08:28 10/28/18 08:44 10/28/18 12:19 Blood Urea Nitrogen 13 Creatinine 1.09 H Bedside Glucose 65 L 125 91 Test 10/28/18 17:08 10/28/18 20:53 Bedside Glucose 98 137 Medications Medications Current Medications Allopurinol (Zyloprim) 100 mg BID PO Last administered on 10/28/18at 20:55; Admin Dose 100 MG; Start 10/07/18 at 21:00 Aspirin (Halfprin) 81 mg DAILY PO Last administered on 10/08/18 08:14; Admin Dose 81 MG; Start 10/08/18 at 09:00; Status Hold Docusate Sodium (Colace) 100 mg TID PO Last administered on 10/28/18 20:55; Admin Dose 100 MG; Start 10/07/18 at 21:00 Pantoprazole (Protonix Tab) 40 mg DAILY@06 PO Last administered on 10/28/18 05:37; Admin Dose 40 MG; Start 10/08/18 at 06:00 IV Flush (NS 3 ml) 3 ml PER PROTOCOL IV ; Start 10/07/18 at 12:30 Ondansetron HCl (Zofran Inj) 4 mg Q6H PRN IV NAUSEA/VOMITING; Start 10/07/18 at 12:30 Acetaminophen (Tylenol Tab) 650 mg Q6H PRN PO .PAIN 1-3 OR TEMP Last administered on 10/27/18 09:02; Admin Dose 650 MG; Start 10/07/18 at 12:30 Acetaminophen/ Hydrocodone Bitart ([place] (5/325)) 1 tab Q6H PRN PO .PAIN 4-6 Last administered on 10/25/18 10:52; Admin Dose 1 TAB; Start 10/07/18 at 12:30 Clonidine (Catapres) 0.1 mg BID PO Last administered on 10/16/18at 08:46; Admin Dose 0.1 MG; Start 10/07/18 at 22:00; Status Hold Miscellaneous Information 1 ea NOTE XX ; Start 10/07/18 at 21:00 Glucose (Glutose) 15 gm Q15M PRN PO DECREASED GLUCOSE; Start 10/07/18 at 21:00 Glucose (Glutose) 22.5 gm Q15M PRN PO DECREASED GLUCOSE; Start 10/07/18 at 21:00 Dextrose (D50w Syringe) 25 ml Q15M PRN IV DECREASED GLUCOSE Last administered on 10/28/18 08:34; Admin Dose 25 ML; Start 10/07/18 at 21:00 Dextrose (D50w Syringe) 50 ml Q15M PRN IV DECREASED GLUCOSE; Start 10/07/18 at 21:00 Glucagon (Glucagen) 1 mg Q15M PRN IM DECREASED GLUCOSE; Start 10/07/18 at 21:00 Glucose (Glutose) 15 gm Q15M PRN BUCCAL DECREASED GLUCOSE; Start 10/07/18 at 21:00 Collagenase (Santyl) 1 applic DAILY TOP Last administered on 10/28/18 13:52; Admin Dose 1 APPLIC; Start 10/09/18 at 19:00 Sodium Hypochlorite (Dakins Diluted ()) 1 applic DAILY TP Last administered on 10/26/18 08:48; Admin Dose 1 APPLIC; Start 10/11/18 at 09:00 Quetiapine Fumarate (Seroquel) 25 mg BID@0900,1200 PO Last administered on 10/26/18 08:47; Admin Dose 25 MG; Start 10/11/18 at 12:00 Quetiapine Fumarate (Seroquel) 50 mg HS PO Last administered on 10/28/18 20: 55; Admin Dose 50 MG; Start 10/11/18 at 21:00 Morphine Sulfate (morphine) 2 mg Q4H PRN IV SEVERE PAIN LEVEL 7-10 Last administered on 10/22/18 21:25; Admin Dose 2 MG; Start 10/15/18 at 21:00 Collagenase (Santyl) 1 applic DAILY TOP Last administered on 10/27/18 21:33; Admin Dose 1 APPLIC; Start 10/17/18 at 12:00 Lubiprostone (Amitiza) 24 mcg BID PO Last administered on 10/28/18 20:55; Admin Dose 24 MCG; Start 10/20/18 at 21:00 Ciprofloxacin (Cipro) 500 mg BID@06,18 PO Last administered on 10/28/18 18:04; Admin Dose 500 MG; Start 10/21/18 at 18:00 Insulin Glargine (Lantus) 8 units DAILY@1200 SC Last administered on 10/27/18 11:50; Admin Dose 8 UNITS; Start 10/22/18 at 12:00 Lisinopril (Zestril) 20 mg DAILY PO Last administered on 10/27/18 09:03; Admin Dose 20 MG; Start 10/21/18 at 17:30 Hydralazine HCl (Apresoline) 10 mg Q4H PRN IV >160/95; Start 10/21/18 at 17:30 Insulin Aspart (Novolog Insulin Pen) NOVOLOG *MILD* ALGORITHM WITH MEALS BEDTIME SC Last administered on 10/27/18 17:29; Admin Dose 1 UNIT; Start 10/22/18 at 21:00 Diagnostic Test (Pha) (Accu-Chek) 1 ea 02 XX Last administered on 10/25/18 02:12; Admin Dose 1 EA; Start 10/23/18 at 02:00 Multivitamins Therapeutic (Theragran) 1 tab DAILY PO Last administered on 10/27/18 09:02; Admin Dose 1 TAB; Start 10/23/18 at 09:00 Zinc Sulfate (Zinc Sulfate) 220 mg DAILY PO Last administered on 10/27/18 09:02; Admin Dose 220 MG; Start 10/23/18 at 09:00; Stop 11/06/18 at 09:00 Ascorbic Acid (Vitamin C) 250 mg DAILY PO Last administered on 10/27/18 09:03; Admin Dose 250 MG; Start 10/23/18 at 09:00 Collagenase (Santyl) 1 applic DAILY TOP Last administered on 10/28/18 13:52; Admin Dose 1 APPLIC; Start 10/23/18 at 11:00 Caspofungin 50 mg/ Sodium Chloride 250 ml @ 250 mls/hr Q24H IVPB Last administered on 10/28/18 15:39; Admin Dose 250 MLS/HR; Start 10/24/18 at 14:00 Metronidazole 100 ml @ 100 mls/hr Q8 IVPB Last administered on 10/28/18 16:59; Admin Dose 100 MLS/HR; Start 10/24/18 at 14:00 Alex Chávez DO Oct 28, 2018 22:06
[2018-10-28] MEDS ORDERED: PENDING SANTYL ORDER FOR WOUND CARE XX PRN (22:30)
[2018-10-29 02:00] VITALS: BP 113/55; PULSE 74; RESP 17
[2018-10-29] MEDS: ACCU-CHEK XX SCH (02:00)
[2018-10-29] MEDS: CIPROFLOXACIN 500 MG TAB PO SCH (05:41)
[2018-10-29] MEDS: PANTOPRAZOLE (EC) 40 MG TAB PO SCH (05:41)
[2018-10-29] MEDS: metroNIDAZOLE 500 MG/NS (PMX) 100 ML IVPB SCH (06:11)
[2018-10-29 08:00] VITALS: BP 117/56; PULSE 86; RESP 18
[2018-10-29] MEDS: INSULIN ASPART [NOVOLOG] 3 ML PEN SC SCH ×2 (08:39→13:32)
[2018-10-29] MEDS: DAKINS 0.0125%(1/40) 473 ML SOLUTION TP SCH (09:00)
[2018-10-29] MEDS: ALLOPURINOL 100 MG TAB PO SCH (09:59)
[2018-10-29] MEDS: DOCUSATE SODIUM 100 MG CAP PO SCH ×2 (09:59→12:44)
[2018-10-29] MEDS: ZINC SULFATE 220 MG CAP PO SCH (09:59)
[2018-10-29] MEDS: ASCORBIC ACID 250 MG TAB PO SCH (09:59)
[2018-10-29] MEDS: LUBIPROSTONE 24 MCG CAP PO SCH (09:59)
[2018-10-29] MEDS: MULTIVITAMINS THERAPEUTIC TAB PO SCH (09:59)
[2018-10-29] MEDS: LISINOPRIL 20 MG TAB PO SCH (10:01)
[2018-10-29] MEDS: QUETIAPINE 25 MG TAB PO SCH ×2 (10:16→12:43)
[2018-10-29] MEDS: COLLAGENASE 5 GM (UD JAR) TOP SCH ×3 (10:17)
--- NOTE | 2018-10-29 10:26 | CONS ---
Assessment/Plan Assessment/Plan Assessment/Plan (Daily) 1. acute hyperkalemia due to BRANDON resolved 2 .acute kidney injury on CKD III due to ATN from sepsis + prerenal azotemia- Improving 3. Sepsis due to UTI and PNA 4. acute UTI 5. H/o partial nephrectomy possibly due to RCC as per family 6. H/o CAD s/p CABG , Cardiomyopathy with EF 50%, Chronic Systolic HF, 7. H/O HTN 8. h/o DM II 9. Paroxysmal atrial fibrillation 10. acute encephalpahty possibly due to uremic and metabolic encephalopathy 11. 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 H/o HTN 13. H/o DM II 14. h/O paroxysmal atrial fibrillation Plan: BUN/Cr 13/.09, Othe electrolytes stable IV abx Caspofungin and IV flagyl, renally dose all abx and monitor electrolytes Renal US showed No hydronephrosis. No nephrolithiasis.- 3.1 x 2 x 2.1 centimeter hypoechoic lesion arising from the lower pole of the left kidney. Follow-up to exclude neoplasm. There is echogenic material layering within the dependent portion of the bladd er. Follow up to exclude infectious, inflammatory, or neoplastic process.- Atrophic left kidney- Family refused MRI abdomen will follow up Consultation Date/Type/Reason Admit Date/Time Oct 07, 2018 at 03:37 Initial Consult Date 10/07/18 Type of Consult NEPHROLOGY Requesting Provider: JAGJIT MONTES MD Date/Time of Note DATE: 10/29/18 TIME: 10:26 Exam/Review of Systems Exam Vitals Vital Signs Date Temp Pulse Resp B/P (MAP) Pulse Ox O2 O2 Flow FiO2 Time Delivery Rate 10/29/18 97.8 86 18 117/56 94 08:00 (76) 10/28/18 2.0 08:38 10/25/18 Room Air 20:16 Intake and Output 10/28/18 10/28/18 10/29/18 1515:00 23:00 07:00 IntakeIntake Total 110 ml 350 ml 100 ml OutputOutput Total 550 ml 550 ml 400 ml BalanceBalance -440 ml -200 ml -300 ml Results Result Diagram: 10/27/18 0552 10/28/18 0605 Results 24hrs Laboratory Tests Test 10/28/18 12:19 10/28/18 17:08 10/28/18 20:53 10/29/18 08:34 Bedside Glucose 91 98 137 201 Medications Medication Current Medications Allopurinol (Zyloprim) 100 mg BID PO Last administered on 10/29/18at 09:59; Ad min Dose 100 MG; Start 10/07/18 at 21:00 Aspirin (Halfprin) 81 mg DAILY PO Last administered on 10/08/18at 08:14; Admin Dose 81 MG; Start 10/08/18 at 09:00; Status Hold Docusate Sodium (Colace) 100 mg TID PO Last administered on 10/29/18 09:59; Admin Dose 100 MG; Start 10/07/18 at 21:00 Pantoprazole (Protonix Tab) 40 mg DAILY@06 PO Last administered on 10/29/18at 05:41; Admin Dose 40 MG; Start 10/08/18 at 06:00 IV Flush (NS 3 ml) 3 ml PER PROTOCOL IV ; Start 10/07/18 at 12:30 Ondansetron HCl (Zofran Inj) 4 mg Q6H PRN IV NAUSEA/VOMITING; Start 10/07/18 at 12:30 Acetaminophen (Tylenol Tab) 650 mg Q6H PRN PO .PAIN 1-3 OR TEMP Last administered on 10/27/18at 09:02; Admin Dose 650 MG; Start 10/07/18 at 12:30 Acetaminophen/ Hydrocodone Bitart (Pinch (5/325)) 1 tab Q6H PRN PO .PAIN 4-6 Last administered on 10/25/18at 10:52; Admin Dose 1 TAB; Start 10/07/18 at 12:30 Clonidine (Catapres) 0.1 mg BID PO Last administered on 10/16/18at 08:46; Admin Dose 0.1 MG; Start 10/07/18 at 22:00; Status Hold Miscellaneous Information 1 ea NOTE XX ; Start 10/07/18 at 21:00 Glucose (Glutose) 15 gm Q15M PRN PO DECREASED GLUCOSE; Start 10/07/18 at 21:00 Glucose (Glutose) 22.5 gm Q15M PRN PO DECREASED GLUCOSE; Start 10/07/18 at 21:00 Dextrose (D50w Syringe) 25 ml Q15M PRN IV DECREASED GLUCOSE Last administered on 10/28/18 08:34; Admin Dose 25 ML; Start 10/07/18 at 21:00 Dextrose (D50w Syringe) 50 ml Q15M PRN IV DECREASED GLUCOSE; Start 10/07/18 at 21:00 Glucagon (Glucagen) 1 mg Q15M PRN IM DECREASED GLUCOSE; Start 10/07/18 at 21:00 Glucose (Glutose) 15 gm Q15M PRN BUCCAL DECREASED GLUCOSE; Start 10/07/18 at 21:00 Collagenase (Santyl) 1 applic DAILY TOP Last administered on 10/29/18 10:17; Admin Dose 1 APPLIC; Start 10/09/18 at 19:00 Sodium Hypochlorite (Dakins Diluted ()) 1 applic DAILY TP Last administered on 10/26/18 08:48; Admin Dose 1 APPLIC; Start 10/11/18 at 09:00 Quetiapine Fumarate (Seroquel) 25 mg BID@0900,1200 PO Last administered on 10/29/18 10:16; Admin Dose 25 MG; Start 10/11/18 at 12:00 Quetiapine Fumarate (Seroquel) 50 mg HS PO Last administered on 10/28/18 20:55; Admin Dose 50 MG; Start 10/11/18 at 21:00 Morphine Sulfate (morphine) 2 mg Q4H PRN IV SEVERE PAIN LEVEL 7-10 Last administered on 10/22/18 21:25; Admin Dose 2 MG; Start 10/15/18 at 21:00 Collagenase (Santyl) 1 applic DAILY TOP Last administered on 10/29/18 10:17; Admin Dose 1 APPLIC; Start 10/17/18 at 12:00 Lubiprostone (Amitiza) 24 mcg BID PO Last administered on 10/29/18 09:59; Admin Dose 24 MCG; Start 10/20/18 at 21:00 Ciprofloxacin (Cipro) 500 mg BID@06,18 PO Last administered on 10/29/18 05:41; Admin Dose 500 MG; Start 10/21/18 at 18:00 Insulin Glargine (Lantus) 8 units DAILY@1200 SC Last administered on 10/27/18 11:50; Admin Dose 8 UNITS; Start 10/22/18 at 12:00 Lisinopril (Zestril) 20 mg DAILY PO Last administered on 10/29/18 10:01; Admin Dose 20 MG; Start 10/21/18 at 17:30 Hydralazine HCl (Apresoline) 10 mg Q4H PRN IV >160/95; Start 10/21/18 at 17:30 Insulin Aspart (Novolog Insulin Pen) NOVOLOG *MILD* ALGORITHM WITH MEALS BEDTIME SC Last administered on 10/29/18 08:39; Admin Dose 2 UNIT; Start 10/22/18 at 21:00 Diagnostic Test (Pha) (Accu-Chek) 1 ea 02 XX Last administered on 10/25/18 02:12; Admin Dose 1 EA; Start 10/23/18 at 02:00 Multivitamins Therapeutic (Theragran) 1 tab DAILY PO Last administered on 10/29/18 09:59; Admin Dose 1 TAB; Start 10/23/18 at 09:00 Zinc Sulfate (Zinc Sulfate) 220 mg DAILY PO Last administered on 10/29/18 09:59; Admin Dose 220 MG; Start 10/23/18 at 09:00; Stop 11/06/18 at 09:00 Ascorbic Acid (Vitamin C) 250 mg DAILY PO Last administered on 10/29/18 09:59; Admin Dose 250 MG; Start 10/23/18 at 09:00 Collagenase (Santyl) 1 applic DAILY TOP Last administered on 10/29/18 10:17; Admin Dose 1 APPLIC; Start 10/23/18 at 11:00 Caspofungin 50 mg/ Sodium Chloride 250 ml @ 250 mls/hr Q24H IVPB Last administered on 10/28/18 15:39; Admin Dose 250 MLS/HR; Start 10/24/18 at 14:00 Metronidazole 100 ml @ 100 mls/hr Q8 IVPB Last administered on 10/29/18 06:11; Admin Dose 100 MLS/HR; Start 10/24/18 at 14:00 Miscellaneous Information (Pending Santyl Order For Wound Care) This patient green... PRN PRN XX WOUND CARE; Start 10/28/18 at 22:30 EVA TREJO MD Oct 29, 2018 10:26
--- NOTE | 2018-10-29 10:49 | DS ---
Date/Time of Note Date/Time of Note DATE: 10/29/18 TIME: 10:46 Discharge Summary Admission/Discharge Info Admit Date/Time Oct 07, 2018 at 03:37 Discharge Date/Time 10/29/18 Discharge Diagnosis 1) UTI 2) cardiomyopathy 3) renal insufficiency 4) colon mass Consults Infectious disease surgery nephrology cardiology Procedures none Hx of Present Illness Patient with cardiomyopathy comes in with evidence of UTI. Patient was treated with antibiotics. Patient had abdominal symptoms and underwent evaluation which shows evidence of colon mass. Surgery was consulted for possible excision but family cannot decided. However, patient is debilitated and so will be discharged to SNF for rehab. Family can take more time to decide regarding further treatment. Hospital Course -Status post colonoscopy with notion of ulcerated lesions consistent with malignancy. Pathology revealed well-differentiated carcinoma. Dr. Valencia is asked to see patient in oncology consultation. -Chronic gastritis per EGD, continue PPI. -Anemia, history of emesis at home and loss of appetite. Dr. Winkler is following in gastroenterology consultation. Colonoscopy recommended however patient is unable to take p.o. prep, patient's son refused NG tube placement. Patient is not able to tolerate Gastrografin enema. -Sepsis secondary to urinary tract infection and possible early pneumonia, resolving. Continue antibiotics per ID. Dr. Elias is following in infection disease consultation. -UTI. Status post treatment with antibiotics. -Hyperkalemia, resolved, status post treatment -Acute kidney injury, continue gentle hydration, monitor BUN and creatinine. Dr. Arreaga is following in nephrology consultation. -Hypertension -Systolic congestive heart failure. Dr. Chávez is following in cardiology consultation. -Cardiomyopathy with ejection fraction 50% -Atrial fibrillation, patient did not tolerate anticoagulation in the past due to bleeding and anemia, patient was on aspirin which is currently held due significant drop in hemoglobin. -Coronary artery disease, status post CABG -Diabetes mellitus type 2, continue Lantus and pre-meal NovoLog. -History of endocarditis, status post treatment -Sacral, right foot, and left garcia wounds present on admission. Continue current care per wound care recommendations. -Right heel wound with early osteomyelitis, status post debridement and application of allograft and wound VAC on 10/15/2018, Dr. Garland is following and podiatry consultation. Continue antibiotics per ID. -History of left femoral artery thrombectomy, left garcia open wound. Continue current wound care. Dr. Dawson is following in vascular surgery consultation. No inpatient procedures planned. Home Meds Active Scripts [Vancomycin Iv Per Pharmacy] 1 EA EACH No Conflict Check, 0 EA XX .PER PROTOCOL Prov:PATO TEJEDA MD 08/04/18 Reported Medications Clonidine Hcl* (Clonidine Hcl*) 0.1 Mg Tab, 0.1 MG PO Q8, TAB 06/25/18 Furosemide* (Furosemide*) 20 Mg Tablet, 20 MG PO DAILY 06/25/18 Carvedilol* (Carvedilol*) 3.125 Mg Tablet, 3.125 MG PO BID for 30 Days, #60 06/25/18 Amiodarone Hcl* (Amiodarone Hcl*) 200 Mg Tablet, 200 MG PO BID, #60 TAB 06/17/18 Dulaglutide (Trulicity) 0.75 Mg/0.5 Ml Pen.injctr, 1.75 MG SQ WEEKLY 06/11/18 Insulin Glargine,Hum.rec.anlog (Basaglar Kwikpen U-100) 100 Unit/1 Ml Insuln.pen, 20 UNIT SC DAILY, EA 06/11/18 Ferrous Sulfate (Ferrous Sulfate) 325 Mg Tablet.dr, 325 MG PO DAILY 06/11/18 Aspirin* (Aspirin* EC) 81 Mg Tablet.dr, 81 MG PO DAILY, TAB 06/11/18 Empagliflozin (Jardiance) 10 Mg Tablet, 10 MG PO DAILY, TAB 06/11/18 Esomeprazole Mag Trihydrate (Nexium) 20 Mg Capsule.dr, 20 MG PO AC BREAKFAST, #30 CAP 06/11/18 Docusate Sodium* (Colace*) 100 Mg Capsule, 100 MG PO TID, #60 CAP 06/11/18 Allopurinol* (Allopurinol*) 100 Mg Tablet, 100 MG PO BID, TAB 06/11/18 Primary Care Provider Pato Tejeda MD Pending Labs Laboratory Tests Test 10/28/18 12:19 10/28/18 17:08 10/28/18 20:53 10/29/18 08:34 Bedside 91 98 137 201 Glucose mg/dL (70-220) mg/dL (70-220) mg/dL (70-220) mg/dL (70-220) ALICIA HERNANDEZ Oct 29, 2018 10:49
--- NOTE | 2018-10-29 12:20 | PN ---
"Date/Time of Note Date/Time of Note DATE: 10/29/18 TIME: 12:19 Assessment/Plan Lines/Catheters IV Catheter Type (from Nrsg): Mid Line Odonnell in Place (from Nrsg): Yes Assessment/Plan Chief Complaint/Hosp Course 1. 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 Bowel function. Family is not sure if they want surgery for her. More discussions to be had. CT noted without mets but rather inflammation. -Oncology recommendations noted -Further discussions with family members> at this time family continues to be undecided -can f/u with our service once family is decided 2. Right buttock wound; Foot wound with osteo; right buttock wound healing -debridement of right buttock wound as needed -continue local care -frequent turning and off-loading -low air loss mattress -vitamin c -short term zinc -optimize nutrition -foot wounds per podiatry> status post debridement currently with wound VAC -calf wound per vascular 3. BRANDON: Resolved; hypoechoic lesion left kidney, possible neoplasm; hx of renal ca and nephrectomy; CT noted with possible recurrent left kidney malignancy -Monitor 4. Microcytic hypochromic anemia: sp prbc tx; colonoscopy pending today -monitor -transfuse as needed 5. Obesity bmi 31 -diet and exercise optimization -encourage weight loss 6. Poor appetite: -supportive -treat infections 7. Hepatic steatosis: -nutrition and weight optimization -medical fu 8. Gastritis: -PPI 9. Constipation: now + bowel function -per gi 10. Diabetes with hypoglycemic episode -glucose optimization - med adjustment per medical team 11. UTI: -abx per sensitivity -frequent bladder emptying/cath care 12. Renal cell carcinoma recommended to tertiary ctr Thank you. Patient seen and examined in collaboration with Dr. Isaac Erwin. Subjective 24 Hr Interval Summary No fevers, labored breathing, congested cough, vomting, diarrhea, sz, rash. Appears comfortable. Nonverbal indicators of pain not present. Exam/Review of Systems Vital Signs Vitals Vital Signs Date Temp Pulse Resp B/P (MAP) Pulse Ox O2 O2 Flow FiO2 Time Delivery Rate 10/29/18 97.8 86 18 117/56 94 08:00 (76) 10/28/18 2.0 08:38 10/25/18 Room Air 20:16 Intake and Output 10/28/18 10/28/18 10/29/18 1515:00 23:00 07:00 IntakeIntake Total 110 ml 350 ml 100 ml OutputOutput Total 550 ml 550 ml 400 ml BalanceBalance -440 ml -200 ml -300 ml Exam Free Text/Dictation Constitutional: responsive, nad, obese No oriented (confused) Psych: flat affect Head: normocephalic, atraumatic Eyes: nl conjunctiva, EOMI, nl lids, nl sclera ENMT: nl external ears & nose, nl nasal mucosa & septum, mucosa pink and moist Neck: supple, non-tender Respiratory: normal air movement; No congested cough Cardiovascular: regular rate and rhythm, nl pulses; No edema Gastrointestinal: soft, non-tender; obese No distended, No rebound or guarding Genitourinary - Female: nl external genitalia Musculoskeletal: nl extremities to inspection, muscle weakness (gen weakness) Extremities: normal pulses; No edema, No pitting pedal edema Neurological: nl speech; No nl mental status (forgetful), No nl strength (gen weakness), non ambulatory Skin: other (Multiple wounds: right buttock: clean, granulating, no periwound erythema/drainage/odor | Left calf:min slough, wrapped | Bilateral foot wounds; r foot w wound vac); No rash or lesions Results Result Diagram: 10/27/18 0552 10/28/18 0605 JUSTINE GUEVARA NP Oct 29, 2018 12:20"
--- NOTE | 2018-10-29 13:36 | CONS ---
Assessment/Plan Assessment/Plan Hospital Course (Demo Recall) SUBJECTIVE: Looks comfortable. No fevers overnight. MICROBIOLOGY: Urine culture growing, his blood cultures remain negative. Right foot wound culture grew Proteus. ANTIMICROBIALS: Cipro Flagyl and Cancidas. INDWELLINGS: The patient has Odonnell catheter. PHYSICAL EXAMINATION: GENERAL: This is a chronically ill-appearing, wasted, elderly woman who is in no distress. HEENT: Head atraumatic, normocephalic. Sclerae anicteric. NECK: Supple. CHEST: Rise symmetrical. Breath sounds diminished to bases. HEART: S1, S2. ABDOMEN: Soft, bowel tones present. EXTREMITIES: With right heel to wound VAC. ASSESSMENT: 1. Primary adenocarcinoma of the colon. 2. Colitis per CT. 3. Recurrent renal cancer. 4. Right heel osteomyelitis. 5. Diabetes. 6. Recurrent urinary tract infection. 7. History of coronary artery bypass graft and endocarditis. 8. Failure to thrive. PLAN: Clinically unchanged, continue abx, f/u surgical and oncology recommendations, family to decide regarding goals of care Consultation Date/Type/Reason Admit Date/Time Oct 07, 2018 at 03:37 Initial Consult Date 10/07/18 Type of Consult id Requesting Provider: JAGJIT MONTES MD Date/Time of Note DATE: 10/29/18 TIME: 13:36 Exam/Review of Systems Exam Vitals Vital Signs Date Temp Pulse Resp B/P (MAP) Pulse Ox O2 O2 Flow FiO2 Time Delivery Rate 10/29/18 97.8 86 18 117/56 94 08:00 (76) 10/28/18 2.0 08:38 10/25/18 Room Air 20:16 Intake and Output 10/28/18 10/28/18 10/29/18 1515:00 23:00 07:00 IntakeIntake Total 110 ml 350 ml 100 ml OutputOutput Total 550 ml 550 ml 400 ml BalanceBalance -440 ml -200 ml -300 ml Results Result Diagram: 10/27/18 0552 10/28/18 0605 Results 24hrs Laboratory Tests Test 10/28/18 17:08 10/28/18 20:53 10/29/18 08:34 10/29/18 12:41 Bedside Glucose 98 137 201 204 Test 10/29/18 13:28 Bedside Glucose 194 Medications Medication Current Medications Allopurinol (Zyloprim) 100 mg BID PO Last administered on 10/29/18 09:59; Admin Dose 100 MG; Start 10/07/18 at 21:00 Aspirin (Halfprin) 81 mg DAILY PO Last administered on 10/08/18 08:14; Admin Dose 81 MG; Start 10/08/18 at 09:00; Status Hold Docusate Sodium (Colace) 100 mg TID PO Last administered on 10/29/18 12:44; Admin Dose 100 MG; Start 10/07/18 at 21:00 Pantoprazole (Protonix Tab) 40 mg DAILY@06 PO Last administered on 10/29/18 05:41; Admin Dose 40 MG; Start 10/08/18 at 06:00 IV Flush (NS 3 ml) 3 ml PER PROTOCOL IV ; Start 10/07/18 at 12:30 Ondansetron HCl (Zofran Inj) 4 mg Q6H PRN IV NAUSEA/VOMITING; Start 10/07/18 at 12:30 Acetaminophen (Tylenol Tab) 650 mg Q6H PRN PO .PAIN 1-3 OR TEMP Last administered on 10/27/18 09:02; Admin Dose 650 MG; Start 10/07/18 at 12:30 Acetaminophen/ Hydrocodone Bitart ([place] (5/325)) 1 tab Q6H PRN PO .PAIN 4-6 Last administered on 10/25/18 10:52; Admin Dose 1 TAB; Start 10/07/18 at 12:30 Clonidine (Catapres) 0.1 mg BID PO Last administered on 10/16/18 08:46; Admin Dose 0.1 MG; Start 10/07/18 at 22:00; Status Hold Miscellaneous Information 1 ea NOTE XX ; Start 10/07/18 at 21:00 Glucose (Glutose) 15 gm Q15M PRN PO DECREASED GLUCOSE; Start 10/07/18 at 21:00 Glucose (Glutose) 22.5 gm Q15M PRN PO DECREASED GLUCOSE; Start 10/07/18 at 21:00 Dextrose (D50w Syringe) 25 ml Q15M PRN IV DECREASED GLUCOSE Last administered on 10/28/18 08:34; Admin Dose 25 ML; Start 10/07/18 at 21:00 Dextrose (D50w Syringe) 50 ml Q15M PRN IV DECREASED GLUCOSE; Start 10/07/18 at 21:00 Glucagon (Glucagen) 1 mg Q15M PRN IM DECREASED GLUCOSE; Start 10/07/18 at 21:00 Glucose (Glutose) 15 gm Q15M PRN BUCCAL DECREASED GLUCOSE; Start 10/07/18 at 21:00 Collagenase (Santyl) 1 applic DAILY TOP Last administered on 10/29/18 10:17; Admin Dose 1 APPLIC; Start 10/09/18 at 19:00 Sodium Hypochlorite (Dakins Diluted ()) 1 applic DAILY TP Last administered on 10/26/18 08:48; Admin Dose 1 APPLIC; Start 10/11/18 at 09:00 Quetiapine Fumarate (Seroquel) 25 mg BID@0900,1200 PO Last administered on 10/29/18 12:43; Admin Dose 25 MG; Start 10/11/18 at 12:00 Quetiapine Fumarate (Seroquel) 50 mg HS PO Last administered on 10/28/18 20:55; Admin Dose 50 MG; Start 10/11/18 at 21:00 Morphine Sulfate (morphine) 2 mg Q4H PRN IV SEVERE PAIN LEVEL 7-10 Last administered on 10/22/18 21:25; Admin Dose 2 MG; Start 10/15/18 at 21:00 Collagenase (Santyl) 1 applic DAILY TOP Last administered on 10/29/18 10:17; Admin Dose 1 APPLIC; Start 10/17/18 at 12:00 Lubiprostone (Amitiza) 24 mcg BID PO Last administered on 10/29/18 09:59; Admin Dose 24 MCG; Start 10/20/18 at 21:00 Ciprofloxacin (Cipro) 500 mg BID@06,18 PO Last administered on 10/29/18 05:41; Admin Dose 500 MG; Start 10/21/18 at 18:00 Lisinopril (Zestril) 20 mg DAILY PO Last administered on 10/29/18 10:01; Admin Dose 20 MG; Start 10/21/18 at 17:30 Hydralazine HCl (Apresoline) 10 mg Q4H PRN IV >160/95; Start 10/21/18 at 17:30 Insulin Aspart (Novolog Insulin Pen) NOVOLOG *MILD* ALGORITHM WITH MEALS BEDTIME SC Last administered on 10/29/18 08:39; Admin Dose 2 UNIT; Start 10/22/18 at 21:00 Diagnostic Test (Pha) (Accu-Chek) 1 ea 02 XX Last administered on 10/25/18 02:12; Admin Dose 1 EA; Start 10/23/18 at 02:00 Multivitamins Therapeutic (Theragran) 1 tab DAILY PO Last administered on 10/29/18 09:59; Admin Dose 1 TAB; Start 10/23/18 at 09:00 Zinc Sulfate (Zinc Sulfate) 220 mg DAILY PO Last administered on 10/29/18 09:59; Admin Dose 220 MG; Start 10/23/18 at 09:00; Stop 11/06/18 at 09:00 Ascorbic Acid (Vitamin C) 250 mg DAILY PO Last administered on 10/29/18 09:59; Admin Dose 250 MG; Start 10/23/18 at 09:00 Collagenase (Santyl) 1 applic DAILY TOP Last administered on 10/29/18 10:17; Admin Dose 1 APPLIC; Start 10/23/18 at 11:00 Caspofungin 50 mg/ Sodium Chloride 250 ml @ 250 mls/hr Q24H IVPB Last administered on 10/28/18 15:39; Admin Dose 250 MLS/HR; Start 10/24/18 at 14:00 Metronidazole 100 ml @ 100 mls/hr Q8 IVPB Last administered on 10/29/18 06:11; Admin Dose 100 MLS/HR; Start 10/24/18 at 14:00 Miscellaneous Information (Pending Santyl Order For Wound Care) This patient green... PRN PRN XX WOUND CARE; Start 10/28/18 at 22:30 Insulin Glargine (Lantus) 4 units DAILY@1200 SC ; Start 10/29/18 at 14:30 BARBARA ORDAZ NP Oct 29, 2018 13:36
[2018-10-29 14:00] VITALS: BP 130/76; PULSE 81; RESP 20
--- NOTE | 2018-10-29 14:14 | CONS ---
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 only after the surgical pathology can we determine if patient needs adjuvant therapy. will speak with son. #Recurrent Renal Cancer -pt will need to be referred to urology at a tertiary care center for surgical resection of this mass. #Diabetic foot -Right heel decubitus ulceration stage 4 -Right foot osteomyelitis -management per vascular surgery and podiatry -continue antibiotics #Sepsis 2/2 to UTI and early pneumonia -continue antibiotics Consultation Date/Type/Reason Admit Date/Time Oct 07, 2018 at 03:37 Initial Consult Date 10/24/18 Type of Consult oncology Reason for Consultation colon cancer Requesting Provider: JAGJIT MONTES MD Date/Time of Note DATE: 10/29/18 TIME: 14:13 24 HR Interval Summary Free Text/Dictation pt is to be transferred to a facility Exam/Review of Systems Exam Vitals Vital Signs Date Temp Pulse Resp B/P (MAP) Pulse Ox O2 O2 Flow FiO2 Time Delivery Rate 10/29/18 97.8 86 18 117/56 94 08:00 (76) 10/28/18 2.0 08:38 10/25/18 Room Air 20:16 Intake and Output 10/28/18 10/28/18 10/29/18 1515:00 23:00 07:00 IntakeIntake Total 110 ml 350 ml 100 ml OutputOutput Total 550 ml 550 ml 400 ml BalanceBalance -440 ml -200 ml -300 ml Constitutional: distress, frail Psych: anxiety, confusion, depression Head: normocephalic Eyes: nl conjunctiva ENMT: nl external ears & nose Neck: supple Respiratory: clear to auscultation Cardiovascular: regular rate and rhythm Gastrointestinal: soft Musculoskeletal: nl extremities to inspection Extremities: normal pulses Results Result Diagram: 10/27/18 0552 10/28/18 0605 Results 24hrs Laboratory Tests Test 10/28/18 17:08 10/28/18 20:53 10/29/18 08:34 10/29/18 12:41 Bedside Glucose 98 137 201 204 Test 10/29/18 13:28 Bedside Glucose 194 Medications Medication Current Medications Allopurinol (Zyloprim) 100 mg BID PO Last administered on 10/29/18 09:59; Admin Dose 100 MG; Start 10/07/18 at 21:00 Aspirin (Halfprin) 81 mg DAILY PO Last administered on 10/08/18 08:14; Admin Dose 81 MG; Start 10/08/18 at 09:00; Status Hold Docusate Sodium (Colace) 100 mg TID PO Last administered on 10/29/18 12:44; Admin Dose 100 MG; Start 10/07/18 at 21:00 Pantoprazole (Protonix Tab) 40 mg DAILY@06 PO Last administered on 10/29/18 05:41; Admin Dose 40 MG; Start 10/08/18 at 06:00 IV Flush (NS 3 ml) 3 ml PER PROTOCOL IV ; Start 10/07/18 at 12:30 Ondansetron HCl (Zofran Inj) 4 mg Q6H PRN IV NAUSEA/VOMITING; Start 10/07/18 at 12:30 Acetaminophen (Tylenol Tab) 650 mg Q6H PRN PO .PAIN 1-3 OR TEMP Last administered on 10/27/18 09:02; Admin Dose 650 MG; Start 10/07/18 at 12:30 Acetaminophen/ Hydrocodone Bitart (Thornton (5/325)) 1 tab Q6H PRN PO .PAIN 4-6 Last administered on 10/25/18 10:52; Admin Dose 1 TAB; Start 10/07/18 at 12:30 Clonidine (Catapres) 0.1 mg BID PO Last administered on 10/16/18 08:46; Admin Dose 0.1 MG; Start 10/07/18 at 22:00; Status Hold Miscellaneous Information 1 ea NOTE XX ; Start 10/07/18 at 21:00 Glucose (Glutose) 15 gm Q15M PRN PO DECREASED GLUCOSE; Start 10/07/18 at 21:00 Glucose (Glutose) 22.5 gm Q15M PRN PO DECREASED GLUCOSE; Start 10/07/18 at 21:00 Dextrose (D50w Syringe) 25 ml Q15M PRN IV DECREASED GLUCOSE Last administered on 10/28/18 08:34; Admin Dose 25 ML; Start 10/07/18 at 21:00 Dextrose (D50w Syringe) 50 ml Q15M PRN IV DECREASED GLUCOSE; Start 10/07/18 at 21:00 Glucagon (Glucagen) 1 mg Q15M PRN IM DECREASED GLUCOSE; Start 10/07/18 at 21:00 Glucose (Glutose) 15 gm Q15M PRN BUCCAL DECREASED GLUCOSE; Start 10/07/18 at 21:00 Collagenase (Santyl) 1 applic DAILY TOP Last administered on 10/29/18 10:17; Admin Dose 1 APPLIC; Start 10/09/18 at 19:00 Sodium Hypochlorite (Dakins Diluted ()) 1 applic DAILY TP Last administered on 10/26/18 08:48; Admin Dose 1 APPLIC; Start 10/11/18 at 09:00 Quetiapine Fumarate (Seroquel) 25 mg BID@0900,1200 PO Last administered on 10/29/18 12:43; Admin Dose 25 MG; Start 10/11/18 at 12:00 Quetiapine Fumarate (Seroquel) 50 mg HS PO Last administered on 10/28/18 20:55; Admin Dose 50 MG; Start 10/11/18 at 21:00 Morphine Sulfate (morphine) 2 mg Q4H PRN IV SEVERE PAIN LEVEL 7-10 Last administered on 10/22/18 21:25; Admin Dose 2 MG; Start 10/15/18 at 21:00 Collagenase (Santyl) 1 applic DAILY TOP Last administered on 10/29/18 10:17; Admin Dose 1 APPLIC; Start 10/17/18 at 12:00 Lubiprostone (Amitiza) 24 mcg BID PO Last administered on 10/29/18 09:59; Admin Dose 24 MCG; Start 10/20/18 at 21:00 Ciprofloxacin (Cipro) 500 mg BID@06,18 PO Last administered on 10/29/18 05:41; Admin Dose 500 MG; Start 10/21/18 at 18:00 Lisinopril (Zestril) 20 mg DAILY PO Last administered on 10/29/18 10:01; Admin Dose 20 MG; Start 10/21/18 at 17:30 Hydralazine HCl (Apresoline) 10 mg Q4H PRN IV >160/95; Start 10/21/18 at 17:30 Insulin Aspart (Novolog Insulin Pen) NOVOLOG *MILD* ALGORITHM WITH MEALS BEDTIME SC Last administered on 10/29/18 13:32; Admin Dose 2 UNIT; Start 09/30 07/18 at 21:00 Diagnostic Test (Pha) (Accu-Chek) 1 ea 02 XX Last administered on 10/25/18 02:12; Admin Dose 1 EA; Start 10/23/18 at 02:00 Multivitamins Therapeutic (Theragran) 1 tab DAILY PO Last administered on 10/29/18 09:59; Admin Dose 1 TAB; Start 10/23/18 at 09:00 Zinc Sulfate (Zinc Sulfate) 220 mg DAILY PO Last administered on 10/29/18 09:59; Admin Dose 220 MG; Start 10/23/18 at 09:00; Stop 11/06/18 at 09:00 Ascorbic Acid (Vitamin C) 250 mg DAILY PO Last administered on 10/29/18 09:59; Admin Dose 250 MG; Start 10/23/18 at 09:00 Collagenase (Santyl) 1 applic DAILY TOP Last administered on 10/29/18 10:17; Admin Dose 1 APPLIC; Start 10/23/18 at 11:00 Caspofungin 50 mg/ Sodium Chloride 250 ml @ 250 mls/hr Q24H IVPB Last administered on 10/28/18 15:39; Admin Dose 250 MLS/HR; Start 10/24/18 at 14:00 Metronidazole 100 ml @ 100 mls/hr Q8 IVPB Last administered on 10/29/18 06: 11; Admin Dose 100 MLS/HR; Start 10/24/18 at 14:00 Miscellaneous Information (Pending Santyl Order For Wound Care) This patient green... PRN PRN XX WOUND CARE; Start 10/28/18 at 22:30 Insulin Glargine (Lantus) 4 units DAILY@1200 SC Last administered on 10/29/18 13:30; Admin Dose 4 UNITS; Start 10/29/18 at 14:30 MAGI RAMAN M.D. Oct 29, 2018 14:14
[2018-10-29] MEDS ORDERED: INSULIN GLARGINE [LANTus] (100 UNITS/ML) SYG SC SCH (14:30)
--- NOTE | 2018-10-29 21:29 | CONS ---
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 Echo dense structure seen by tricuspid valve, right atrium and IVC-thrombus, veg etation versus tumor CAD with history of CABG History of renal carcinoma status post nephrectomy approximately 8 years ago History of hypertension Diabetes Paroxysmal atrial fibrillation, intolerant to anticoagulation Newly diagnosed colon cancer Titrate antihypertensives as needed Diuretics as needed Consultation Date/Type/Reason Admit Date/Time Oct 07, 2018 at 03:37 Initial Consult Date 10/07/18 Type of Consult Cardiology Requesting Provider: JAGJIT MONTES MD Date/Time of Note DATE: 10/29/18 TIME: 21:28 24 HR Interval Summary Free Text/Dictation no sob,cp Exam/Review of Systems Vital Signs Vitals Vital Signs Date Temp Pulse Resp B/P (MAP) Pulse Ox O2 O2 Flow FiO2 Time Delivery Rate 10/29/18 98.8 81 20 130/76 96 14:00 (94) 10/28/18 2.0 08:38 10/25/18 Room Air 20:16 Intake and Output 10/28/18 10/28/18 10/29/18 1515:00 23:00 07:00 IntakeIntake Total 110 ml 350 ml 100 ml OutputOutput Total 550 ml 550 ml 400 ml BalanceBalance -440 ml -200 ml -300 ml Exam Constitutional: alert, oriented Respiratory: other (course bs, no wheeze) Cardiovascular: regular rate and rhythm (s1s2) Gastrointestinal: soft, non-tender, bowel sounds Extremities: edema Labs Result Diagram: 10/27/18 0552 10/28/18 0605 Results 24hrs Laboratory Tests Test 10/29/18 08:34 10/29/18 12:41 10/29/18 13:28 Bedside Glucose 201 204 194 Alex Chávez DO Oct 29, 2018 21:29
== END 2018-10-29 14:20 | DRG 853 ==
LOC: E/R 01:04 → TEL 03:37 → PP2 10-19 23:40
PROVIDERS: ADMIT Internal Medicine; ATTEND Internal Medicine
PROC: 30233N1 Transfusion of Nonautologous Red Blood Cells into Peripheral Vein, Percutaneous Approach (ICD-10-PCS; 2018-10-08)
PROC: 0DB68ZX Excision of Stomach, Via Natural or Artificial Opening Endoscopic, Diagnostic (ICD-10-PCS; 2018-10-13)
PROC: 0HBMXZX Excision of Right Foot Skin, External Approach, Diagnostic (ICD-10-PCS; 2018-10-15)
PROC: 0QBL0ZZ Excision of Right Tarsal, Open Approach (ICD-10-PCS; principal; 2018-10-15 09:00)
PROC: 0DBL8ZX Excision of Transverse Colon, Via Natural or Artificial Opening Endoscopic, Diagnostic (ICD-10-PCS; 2018-10-22)
DX: A41.9 Sepsis, unspecified organism (principal); L89.614 Pressure ulcer of right heel, stage 4; J18.9 Pneumonia, unspecified organism; N17.0 Acute kidney failure with tubular necrosis; I42.9 Cardiomyopathy, unspecified; I50.22 Chronic systolic (congestive) heart failure; M86.171 Other acute osteomyelitis, right ankle and foot; E11.52 Type 2 diabetes mellitus with diabetic peripheral angiopathy with gangrene; I96 Gangrene, not elsewhere classified; C18.4 Malignant neoplasm of transverse colon; C64.9 Malignant neoplasm of unspecified kidney, except renal pelvis; G93.40 Encephalopathy, unspecified; I13.0 Hypertensive heart and chronic kidney disease with heart failure and stage 1 through stage 4 chronic kidney disease, or unspecified chronic kidney disease; D62 Acute posthemorrhagic anemia; B37.49 Other urogenital candidiasis; E11.69 Type 2 diabetes mellitus with other specified complication; E87.5 Hyperkalemia; I25.10 Atherosclerotic heart disease of native coronary artery without angina pectoris; M81.0 Age-related osteoporosis without current pathological fracture; E11.22 Type 2 diabetes mellitus with diabetic chronic kidney disease; N18.3 Chronic kidney disease, stage 3 (moderate); F03.90 Unspecified dementia, unspecified severity, without behavioral disturbance, psychotic disturbance, mood disturbance, and anxiety; D50.0 Iron deficiency anemia secondary to blood loss (chronic); K29.50 Unspecified chronic gastritis without bleeding; R41.0 Disorientation, unspecified; K76.0 Fatty (change of) liver, not elsewhere classified; E66.9 Obesity, unspecified; R33.9 Retention of urine, unspecified; D22.71 Melanocytic nevi of right lower limb, including hip; K59.00 Constipation, unspecified; E11.649 Type 2 diabetes mellitus with hypoglycemia without coma; R62.7 Adult failure to thrive; K52.9 Noninfective gastroenteritis and colitis, unspecified; I48.0 Paroxysmal atrial fibrillation; E11.42 Type 2 diabetes mellitus with diabetic polyneuropathy; Z85.528 Personal history of other malignant neoplasm of kidney; Z79.4 Long term (current) use of insulin; Z95.1 Presence of aortocoronary bypass graft
CPT/HCPCS: 36415; 36430; 71045; 71260; 73630; 73700; 74018; 74177; 74270; 76705; 76775; 80048; 80053; 80202; 81001; 81003; 82140; 82270; 82378; 82550; 82565; 82570; 82607; 82728; 82746; 82962; 83036; 83540; 83605; 83615; 83735; 83880; 84145; 84300; 84484; 84520; 84560; 85025; 85045; 85610; 85651; 86140; 86850; 86900; 86901; 86920; 87070; 87075; 87081; 87086; 87102; 87116; 88304; 88305; 88311; 88312; 89190; 92526; 92610; 93005; 93922; 96365; 96367; A4310; J0461; J0692; J0696; J1815; J1940; J2001; J2060; J2185; J2270; J2405; J2916; J3370; J3475; J3480; J7030; J7040; J7042; J7050; P9016; Q5105; Q9967

== ENCOUNTER 2018-11-12 09:42 | Inpatient (IN) | payer MEDICARE, OTHER ==
[~2018-11-12] VITALS: Ht 160 cm; Wt 60.0 kg
[~2018-11-12 09:42] MED LIST changes: +MEGE40TA PO
[2018-11-12 09:52] VITALS: Ht 160 cm; Wt 60.0 kg
[2018-11-12] MEDS ORDERED: VANCOMYCIN 1 GM (PMX) 250 ML IVPB ONE (12:30)
[2018-11-12] MEDS ORDERED: ONDANSETRON 4 MG INJ IV PRN (12:30)
[2018-11-12] MEDS ORDERED: ACETAMINOPHEN 325 MG TAB PO PRN ×2 (12:30→14:30)
[2018-11-12] MEDS ORDERED: PIPER-TAZO 3.375 GM IV (PMX) 100 ML IVPB ONE (12:30)
[2018-11-12] MEDS ORDERED: SOD CHLORIDE 0.9% 250 ML IV* ONE (14:00)
[2018-11-12] MEDS: FERROUS SULFATE (EC) 325 MG TAB PO SCH ×2 (17:04→20:46)
[2018-11-12] MEDS: QUETIAPINE 25 MG TAB PO SCH ×2 (17:04→20:46)
[2018-11-12] MEDS: HYDROCODONE/APAP (5/325) TAB PO PRN (18:48)
[2018-11-12 20:00] VITALS: BP 102/50; PULSE 74; RESP 18
[2018-11-12] MEDS ORDERED: DEXTROSE 50% 50 ML SYRINGE IV PRN (20:30)
[2018-11-12] MEDS ORDERED: GLUCAGON 1 MG INJ IM PRN (20:30)
[2018-11-12] MEDS ORDERED: GLUCOSE GEL 15 GRAM TUBE PO PRN ×2 (20:30)
[2018-11-12] MEDS ORDERED: GLUCOSE GEL 15 GRAM TUBE BUCCAL PRN (20:30)
[2018-11-12] MEDS: ALLOPURINOL 100 MG TAB PO SCH (20:46)
[2018-11-12] MEDS: FUROSEMIDE 20 MG TAB PO SCH (20:46)
[2018-11-12] MEDS: DOCUSATE SODIUM 100 MG CAP PO SCH (20:46)
[2018-11-12] MEDS: SENNA TAB PO SCH (20:46)
[2018-11-12] MEDS ORDERED: QUETIAPINE 25 MG TAB PO SCH (21:00)
[2018-11-12] MEDS: INSULIN ASPART [NOVOLOG] 3 ML PEN SC SCH (21:41)
[2018-11-13 02:00] VITALS: BP 127/60; PULSE 82; RESP 17
[2018-11-13] MEDS ORDERED: COLLAGENASE 5 GM (UD JAR) TOP PRN (03:00)
[2018-11-13] MEDS ORDERED: PENDING SANTYL ORDER FOR WOUND CARE XX PRN (03:00)
[2018-11-13] MEDS: INSULIN ASPART [NOVOLOG] 3 ML PEN SC SCH ×4 (07:35→20:20)
[2018-11-13 07:46] VITALS: BP 125/57; PULSE 75; RESP 16
[2018-11-13] MEDS: ASPIRIN (EC) 81 MG TAB PO SCH (08:36)
[2018-11-13] MEDS: SENNA TAB PO SCH ×2 (08:36→20:20)
[2018-11-13] MEDS: FUROSEMIDE 20 MG TAB PO SCH ×2 (08:36→20:20)
[2018-11-13] MEDS: LISINOPRIL 20 MG TAB PO SCH (08:37)
[2018-11-13] MEDS: FERROUS SULFATE (EC) 325 MG TAB PO SCH ×3 (08:37→20:20)
[2018-11-13] MEDS: DOCUSATE SODIUM 100 MG CAP PO SCH ×3 (08:37→20:20)
[2018-11-13] MEDS: POTASSIUM CHLORIDE (SR) 10 MEQ TAB PO SCH (08:38)
[2018-11-13] MEDS: QUETIAPINE 25 MG TAB PO SCH ×3 (08:38→20:20)
[2018-11-13] MEDS: PANTOPRAZOLE (EC) 40 MG TAB PO SCH (08:38)
[2018-11-13] MEDS: ASCORBIC ACID 250 MG TAB PO SCH (08:38)
[2018-11-13] MEDS: COLLAGENASE 5 GM (UD JAR) TOP SCH (08:39)
[2018-11-13] MEDS: ALLOPURINOL 100 MG TAB PO SCH ×2 (08:39→20:20)
[2018-11-13] MEDS: MULTIVITAMINS/MINERALS TAB PO SCH (08:39)
[2018-11-13] MEDS ORDERED: [UNRECOGNIZED DRUG - OTHER] PO SCH (09:00)
[2018-11-13] MEDS ORDERED: MULTIVIT MIN PO SCH (09:00)
[2018-11-13] MEDS ORDERED: IRON FUM PO SCH (09:00)
[2018-11-13] MEDS ORDERED: FOLIC AC PO SCH (09:00)
[2018-11-13 14:21] VITALS: BP 118/55; PULSE 77
[2018-11-13] MEDS ORDERED: VANCOMYCIN IV PER PHARMACY XX SCH ×2 (16:00)
[2018-11-13] MEDS ORDERED: VANCOMYCIN 1.25 GM/NS 250 ML 250 ML IVPB ONE (17:30)
[2018-11-13 20:07] VITALS: BP 110/51; PULSE 80
[2018-11-13] MEDS: PIPER-TAZO 3.375 GM IV (PMX) 100 ML IVPB SCH (22:40)
[2018-11-13] MEDS: INSULIN GLARGINE [LANTus] (100 UNITS/ML) SYG SC SCH (22:40)
[2018-11-14 01:49] VITALS: BP 116/56; PULSE 82
[2018-11-14] MEDS: ACCU-CHEK XX SCH (02:00)
[2018-11-14] MEDS: PIPER-TAZO 3.375 GM IV (PMX) 100 ML IVPB SCH (05:26)
[2018-11-14] MEDS: INSULIN ASPART [NOVOLOG] 3 ML PEN SC SCH ×5 (06:05→20:40)
[2018-11-14 08:00] VITALS: BP 145/67; PULSE 96; RESP 18
[2018-11-14] MEDS: ASCORBIC ACID 250 MG TAB PO SCH (08:47)
[2018-11-14] MEDS: FERROUS SULFATE (EC) 325 MG TAB PO SCH ×3 (08:47→20:42)
[2018-11-14] MEDS: PANTOPRAZOLE (EC) 40 MG TAB PO SCH (08:48)
[2018-11-14] MEDS: POTASSIUM CHLORIDE (SR) 10 MEQ TAB PO SCH (08:48)
[2018-11-14] MEDS: SENNA TAB PO SCH ×2 (08:48→20:47)
[2018-11-14] MEDS: QUETIAPINE 25 MG TAB PO SCH ×3 (08:48→20:41)
[2018-11-14] MEDS: DOCUSATE SODIUM 100 MG CAP PO SCH ×3 (08:48→20:42)
[2018-11-14] MEDS: ALLOPURINOL 100 MG TAB PO SCH ×2 (08:48→20:42)
[2018-11-14] MEDS: MULTIVITAMINS/MINERALS TAB PO SCH (08:48)
[2018-11-14] MEDS: ASPIRIN (EC) 81 MG TAB PO SCH (08:48)
[2018-11-14] MEDS: FUROSEMIDE 20 MG TAB PO SCH ×2 (08:49→20:41)
[2018-11-14] MEDS: COLLAGENASE 5 GM (UD JAR) TOP SCH (08:50)
[2018-11-14] MEDS: LISINOPRIL 20 MG TAB PO SCH (08:55)
[2018-11-14 14:00] VITALS: BP 138/72; PULSE 84; RESP 20
[2018-11-14] MEDS: FLUCONAZOLE 100 MG TAB PO SCH (14:30)
[2018-11-14 20:00] VITALS: BP 108/53; PULSE 79; RESP 18
[2018-11-14] MEDS: INSULIN GLARGINE [LANTus] (100 UNITS/ML) SYG SC SCH (20:39)
[2018-11-14 20:40] VITALS: BP 111/61; PULSE 79
[2018-11-15] MEDS: HYDROCODONE/APAP (5/325) TAB PO PRN ×2 (01:09→23:21)
[2018-11-15] MEDS: ACCU-CHEK XX SCH (01:19)
[2018-11-15 01:46] VITALS: BP 109/53; PULSE 78; RESP 18
[2018-11-15] MEDS ORDERED: VANCOMYCIN 1 GM 250 ML IVPB SCH (05:30)
[2018-11-15 07:32] VITALS: BP 105/55; PULSE 76; RESP 14
[2018-11-15] MEDS: INSULIN ASPART [NOVOLOG] 3 ML PEN SC SCH ×7 (07:35→20:30)
[2018-11-15] MEDS: DOCUSATE SODIUM 100 MG CAP PO SCH ×3 (08:18→20:33)
[2018-11-15] MEDS: SENNA TAB PO SCH ×2 (08:18→20:33)
[2018-11-15] MEDS: FLUCONAZOLE 100 MG TAB PO SCH (08:18)
[2018-11-15] MEDS: FERROUS SULFATE (EC) 325 MG TAB PO SCH ×3 (08:18→20:32)
[2018-11-15] MEDS: POTASSIUM CHLORIDE (SR) 10 MEQ TAB PO SCH (08:18)
[2018-11-15] MEDS: MULTIVITAMINS/MINERALS TAB PO SCH (08:19)
[2018-11-15] MEDS: PANTOPRAZOLE (EC) 40 MG TAB PO SCH (08:19)
[2018-11-15] MEDS: ASCORBIC ACID 250 MG TAB PO SCH (08:19)
[2018-11-15] MEDS: QUETIAPINE 25 MG TAB PO SCH ×3 (08:19→20:32)
[2018-11-15] MEDS: ALLOPURINOL 100 MG TAB PO SCH ×2 (08:19→20:31)
[2018-11-15] MEDS: LISINOPRIL 20 MG TAB PO SCH (08:20)
[2018-11-15] MEDS: FUROSEMIDE 20 MG TAB PO SCH ×2 (08:20→20:33)
[2018-11-15] MEDS: COLLAGENASE 5 GM (UD JAR) TOP SCH (08:23)
[2018-11-15] MEDS: ASPIRIN (EC) 81 MG TAB PO SCH (08:23)
[2018-11-15] MEDS ORDERED: SOD CHLORIDE 0.9% 500 ML IV ONE (14:00)
[2018-11-15 14:19] VITALS: BP 108/52; PULSE 83; RESP 18
[2018-11-15 19:33] VITALS: BP 124/62; PULSE 82; RESP 18
[2018-11-15] MEDS: INSULIN GLARGINE [LANTus] (100 UNITS/ML) SYG SC SCH (20:30)
[2018-11-16] MEDS: ACCU-CHEK XX SCH (02:01)
[2018-11-16 02:32] VITALS: BP 104/53; PULSE 66; RESP 9
[2018-11-16 02:44] VITALS: RESP 15
[2018-11-16] MEDS: DEXTROSE 50% 50 ML SYRINGE IV PRN (07:34)
[2018-11-16] MEDS: INSULIN ASPART [NOVOLOG] 3 ML PEN SC SCH ×7 (07:35→20:50)
[2018-11-16 08:20] VITALS: BP 124/58; PULSE 83; RESP 18
[2018-11-16] MEDS: ALLOPURINOL 100 MG TAB PO SCH ×2 (08:28→20:53)
[2018-11-16] MEDS: LISINOPRIL 20 MG TAB PO SCH (08:28)
[2018-11-16] MEDS: FERROUS SULFATE (EC) 325 MG TAB PO SCH ×3 (08:28→20:53)
[2018-11-16] MEDS: DOCUSATE SODIUM 100 MG CAP PO SCH ×3 (08:28→20:53)
[2018-11-16] MEDS: MULTIVITAMINS/MINERALS TAB PO SCH (08:28)
[2018-11-16] MEDS: COLLAGENASE 5 GM (UD JAR) TOP SCH (08:28)
[2018-11-16] MEDS: SENNA TAB PO SCH ×2 (08:28→20:53)
[2018-11-16] MEDS: FLUCONAZOLE 100 MG TAB PO SCH (08:28)
[2018-11-16] MEDS: ASCORBIC ACID 250 MG TAB PO SCH (08:29)
[2018-11-16] MEDS: POTASSIUM CHLORIDE (SR) 10 MEQ TAB PO SCH (08:29)
[2018-11-16] MEDS: FUROSEMIDE 20 MG TAB PO SCH ×2 (08:29→20:54)
[2018-11-16] MEDS: PANTOPRAZOLE (EC) 40 MG TAB PO SCH (08:29)
[2018-11-16] MEDS: ASPIRIN (EC) 81 MG TAB PO SCH (08:29)
[2018-11-16] MEDS: QUETIAPINE 25 MG TAB PO SCH ×3 (08:32→20:53)
[2018-11-16 13:51] VITALS: BP 128/61; PULSE 80; RESP 16
[2018-11-16 19:36] VITALS: BP 156/70; PULSE 88; RESP 20
[2018-11-16] MEDS: INSULIN GLARGINE [LANTus] (100 UNITS/ML) SYG SC SCH (20:49)
[2018-11-17 01:45] VITALS: BP 116/57; PULSE 73; RESP 16
[2018-11-17] MEDS: ACCU-CHEK XX SCH (02:41)
[2018-11-17 07:25] VITALS: BP 140/70; PULSE 76; RESP 16
[2018-11-17] MEDS: INSULIN ASPART [NOVOLOG] 3 ML PEN SC SCH ×7 (07:35→20:49)
[2018-11-17] MEDS: FLUCONAZOLE 100 MG TAB PO SCH (08:23)
[2018-11-17] MEDS: COLLAGENASE 5 GM (UD JAR) TOP SCH (08:23)
[2018-11-17] MEDS: POTASSIUM CHLORIDE (SR) 10 MEQ TAB PO SCH (08:23)
[2018-11-17] MEDS: DOCUSATE SODIUM 100 MG CAP PO SCH ×3 (08:23→20:52)
[2018-11-17] MEDS: PANTOPRAZOLE (EC) 40 MG TAB PO SCH (08:23)
[2018-11-17] MEDS: FERROUS SULFATE (EC) 325 MG TAB PO SCH ×3 (08:23→20:53)
[2018-11-17] MEDS: MULTIVITAMINS/MINERALS TAB PO SCH (08:23)
[2018-11-17] MEDS: LISINOPRIL 20 MG TAB PO SCH (08:24)
[2018-11-17] MEDS: SENNA TAB PO SCH ×2 (08:24→20:52)
[2018-11-17] MEDS: ASPIRIN (EC) 81 MG TAB PO SCH (08:24)
[2018-11-17] MEDS: ASCORBIC ACID 250 MG TAB PO SCH (08:24)
[2018-11-17] MEDS: ALLOPURINOL 100 MG TAB PO SCH ×2 (08:24→20:53)
[2018-11-17] MEDS: FUROSEMIDE 20 MG TAB PO SCH ×2 (08:25→20:52)
[2018-11-17] MEDS: QUETIAPINE 25 MG TAB PO SCH ×3 (08:31→20:53)
[2018-11-17 14:13] VITALS: BP 121/59; PULSE 77; RESP 16
[2018-11-17 20:26] VITALS: BP 95/52; PULSE 78; RESP 17
[2018-11-17 20:36] VITALS: BP 128/60; PULSE 77
[2018-11-17] MEDS: INSULIN GLARGINE [LANTus] (100 UNITS/ML) SYG SC SCH (20:50)
[2018-11-18 01:37] VITALS: BP 133/60; PULSE 78; RESP 17
[2018-11-18] MEDS: ACCU-CHEK XX SCH (02:00)
[2018-11-18] MEDS: INSULIN ASPART [NOVOLOG] 3 ML PEN SC SCH ×6 (07:35→16:51)
[2018-11-18 07:45] VITALS: BP 117/58; PULSE 74; RESP 20
[2018-11-18] MEDS: DEXTROSE 50% 50 ML SYRINGE IV PRN (08:13)
[2018-11-18] MEDS: DOCUSATE SODIUM 100 MG CAP PO SCH ×2 (08:58→12:08)
[2018-11-18] MEDS: COLLAGENASE 5 GM (UD JAR) TOP SCH (08:58)
[2018-11-18] MEDS: ASCORBIC ACID 250 MG TAB PO SCH (08:58)
[2018-11-18] MEDS: ASPIRIN (EC) 81 MG TAB PO SCH (08:58)
[2018-11-18] MEDS: PANTOPRAZOLE (EC) 40 MG TAB PO SCH (08:59)
[2018-11-18] MEDS: FUROSEMIDE 20 MG TAB PO SCH (08:59)
[2018-11-18] MEDS: ALLOPURINOL 100 MG TAB PO SCH (08:59)
[2018-11-18] MEDS: MULTIVITAMINS/MINERALS TAB PO SCH (08:59)
[2018-11-18] MEDS: FLUCONAZOLE 100 MG TAB PO SCH (08:59)
[2018-11-18] MEDS: POTASSIUM CHLORIDE (SR) 10 MEQ TAB PO SCH (08:59)
[2018-11-18] MEDS: FERROUS SULFATE (EC) 325 MG TAB PO SCH ×2 (08:59→12:08)
[2018-11-18] MEDS: LISINOPRIL 20 MG TAB PO SCH (08:59)
[2018-11-18] MEDS: SENNA TAB PO SCH (08:59)
[2018-11-18] MEDS: QUETIAPINE 25 MG TAB PO SCH ×2 (09:07→16:45)
[2018-11-18 14:02] VITALS: BP 101/55; PULSE 77; RESP 15
== END 2018-11-18 18:09 | DRG 811 ==
LOC: E/R 09:42 → MS3 12:22
PROVIDERS: ADMIT Internal Medicine; ATTEND Internal Medicine
PROC: 30233N1 Transfusion of Nonautologous Red Blood Cells into Peripheral Vein, Percutaneous Approach (ICD-10-PCS; principal; 2018-11-12)
DX: D64.9 Anemia, unspecified (principal); L89.153 Pressure ulcer of sacral region, stage 3; I50.20 Unspecified systolic (congestive) heart failure; B37.49 Other urogenital candidiasis; C18.9 Malignant neoplasm of colon, unspecified; C64.9 Malignant neoplasm of unspecified kidney, except renal pelvis; M86.671 Other chronic osteomyelitis, right ankle and foot; I48.91 Unspecified atrial fibrillation; E11.9 Type 2 diabetes mellitus without complications; Z95.1 Presence of aortocoronary bypass graft; I25.10 Atherosclerotic heart disease of native coronary artery without angina pectoris; Z79.4 Long term (current) use of insulin; L89.610 Pressure ulcer of right heel, unstageable
CPT/HCPCS: 36430; 71045; 80048; 80053; 81001; 82962; 83605; 84484; 85025; 85610; 85730; 86850; 86900; 86901; 86920; 87081; 87086; 93005; J1815; J2543; J3370; J7030; J7040; P9016

== ENCOUNTER 2018-11-25 15:01 | Inpatient (IN) | payer MEDICARE, OTHER ==
[~2018-11-25] VITALS: Ht 149.9 cm; Wt 65.2 kg
[~2018-11-25 15:01] MED LIST changes: -AMIO200T4 PO; -CARV3.1260 PO; -DULA0.75 SQ; -EMPA10TA PO; -ESOM20CA PO; +ETOMIDATE 20 MG INJ ONE; +ROCURONIUM 50 MG INJ ONE; -Vancomycin Iv Per Pharmacy XX
[2018-11-25] MEDS ORDERED: SODIUM CHLORIDE 0.9% 1L BAG IV* STA (15:15)
[2018-11-25] MEDS ORDERED: ONDANSETRON 4 MG INJ IV PRN ×2 (17:00→23:00)
[2018-11-25] MEDS ORDERED: ACETAMINOPHEN 325 MG TAB PO PRN ×2 (17:00→23:00)
[2018-11-25 20:12] VITALS: BP 100/51; PULSE 98; RESP 18
[2018-11-25 20:53] VITALS: Ht 149.9 cm; Wt 65.2 kg
[2018-11-25] MEDS ORDERED: GLUCOSE GEL 15 GRAM TUBE PO PRN ×2 (23:00)
[2018-11-25] MEDS ORDERED: HYDROCODONE/APAP (5/325) TAB PO PRN (23:00)
[2018-11-25] MEDS ORDERED: GLUCOSE GEL 15 GRAM TUBE BUCCAL PRN (23:00)
[2018-11-25] MEDS ORDERED: DOCUSATE SODIUM 100 MG CAP PO PRN (23:00)
[2018-11-25] MEDS ORDERED: MEGESTROL 40 MG TAB PO PRN (23:00)
[2018-11-25] MEDS ORDERED: BISACODYL (EC) 5 MG TAB PO PRN (23:00)
[2018-11-25] MEDS ORDERED: GLUCAGON 1 MG INJ IM PRN (23:00)
[2018-11-25] MEDS ORDERED: DEXTROSE 50% 50 ML SYRINGE IV PRN ×2 (23:00)
[2018-11-25] MEDS: SOD CHLORIDE 0.9% 1,000 ML IV SCH (23:07)
[2018-11-26 01:30] VITALS: BP 102/62; PULSE 101; RESP 18
[2018-11-26] MEDS: FUROSEMIDE 20 MG TAB PO SCH ×2 (05:29→17:45)
[2018-11-26 07:25] VITALS: BP 98/60; PULSE 104; RESP 18
[2018-11-26] MEDS ORDERED: POTASSIUM CHLORIDE (SR) 10 MEQ TAB PO SCH (09:00)
[2018-11-26] MEDS ORDERED: LISINOPRIL 20 MG TAB PO SCH (09:00)
[2018-11-26] MEDS ORDERED: ASPIRIN (EC) 81 MG TAB PO SCH (09:00)
[2018-11-26] MEDS ORDERED: FAMOTIDINE 20 MG TAB PO SCH (09:00)
[2018-11-26] MEDS: DOCUSATE SODIUM 100 MG CAP PO SCH ×4 (09:00→21:00)
[2018-11-26] MEDS ORDERED: ASCORBIC ACID 250 MG TAB PO SCH (09:00)
[2018-11-26] MEDS ORDERED: NON-FORMULARY/PATIENT OWN MED (Ferrous Sulfate 325 MG) PO SCH (09:00)
[2018-11-26] MEDS: SENNA TAB PO SCH ×3 (09:00→21:00)
[2018-11-26] MEDS ORDERED: PANTOPRAZOLE (EC) 40 MG TAB PO SCH (09:00)
[2018-11-26] MEDS: FERROUS SULFATE (EC) 325 MG TAB PO SCH ×3 (09:03→21:00)
[2018-11-26] MEDS: ALLOPURINOL 100 MG TAB PO SCH ×2 (09:03→21:00)
[2018-11-26] MEDS: INSULIN ASPART [NOVOLOG] 3 ML PEN SC SCH ×4 (09:13→21:00)
[2018-11-26] MEDS: QUETIAPINE 25 MG TAB PO SCH ×2 (09:14→21:00)
[2018-11-26] MEDS ORDERED: CEFEPIME 1GM/50 ML (PMX) 50 ML IVPB SCH (10:30)
[2018-11-26] MEDS ORDERED: VANCOMYCIN IV PER PHARMACY XX SCH (10:30)
[2018-11-26] MEDS ORDERED: BALSAM PERU/CASTOR OIL 60 GM TUBE TOP SCH (12:00)
[2018-11-26] MEDS ORDERED: VANCOMYCIN 1.25 GM/NS 250 ML 250 ML IVPB SCH ×2 (12:00)
[2018-11-26] MEDS ORDERED: COLLAGENASE 5 GM (UD JAR) TOP SCH (12:00)
[2018-11-26] MEDS: SOD CHLORIDE 0.9% 1,000 ML IV SCH ×2 (12:50→17:43)
[2018-11-26 15:31] VITALS: BP 109/64; PULSE 96; RESP 18
[2018-11-26] MEDS ORDERED: INSULIN GLARGINE [LANtus] 3 ML PEN SC SCH (21:00)
[2018-11-26] MEDS ORDERED: INSULIN GLARGINE [LANTus] (100 UNITS/ML) SYG SC SCH (21:00)
[2018-11-26] MEDS ORDERED: QUETIAPINE 25 MG TAB PO SCH (21:00)
[2018-11-26 21:08] VITALS: BP 110/70; PULSE 74; RESP 18
[2018-11-26 23:00] VITALS: RESP 20
[2018-11-26] MEDS ORDERED: PHENYLephrine 20MG IN 250 ML 250 ML ONE (23:24)
[2018-11-26] MEDS ORDERED: EPINEPHrine 0.1 MG/ML SYG ONE (23:30)
[2018-11-26] MEDS ORDERED: NORepinephrine 8MG/250 ML (PMX 250 ML IV SCH (23:30)
[2018-11-26 23:45] VITALS: BP 82/49; PULSE 115; RESP 20
[2018-11-27] VITALS (22 sets, daily range): BP systolic 37–129; BP diastolic 12–80; PULSE 71–135; RESP 15–29
[2018-11-27] MEDS: PHENYLephrine 20MG IN 250 ML 250 ML IV SCH ×2 (00:34→01:15)
[2018-11-27] MEDS: SOD CHLORIDE 0.9% 1,000 ML IV SCH (00:38)
[2018-11-27] MEDS ORDERED: NA BICARBONATE 8.4% 50 ML SYG IV ONE (01:00)
[2018-11-27] MEDS ORDERED: SODIUM BICARBONATE (IV ADD) 100 MEQ in SOD CHLORIDE 0.9% 1,000 ML IV SCH ×2 (01:00→01:37)
[2018-11-27] MEDS ORDERED: SOD CHLORIDE 0.9% 1,000 ML IV ONE (01:30)
[2018-11-27] MEDS ORDERED: DOPamine-D5W 1.6 MG/ML 250 ML IV SCH (01:30)
[2018-11-27] MEDS: PHENYLephrine 80 MG in DEXTROSE 5% 242 ML IV SCH ×2 (01:54→04:55)
[2018-11-27] MEDS ORDERED: SOD CHLORIDE 0.9% 1,000 ML IV SCH (02:30)
[2018-11-27] MEDS ORDERED: EPINEPHrine 0.1 MG/ML SYG ONE (04:35)
[2018-11-27] MEDS ORDERED: CEFEPIME 1GM/50 ML (PMX) 50 ML IVPB SCH (13:00)
[2018-11-28] MEDS ORDERED: VANCOMYCIN 750 MG (PMX) 250 ML IVPB SCH ×2 (13:00→14:00)
== END 2018-11-27 04:46 | disposition expired | DRG 871 ==
LOC: E/R 15:01 → 2NE 16:44 → ICU 11-26 23:00
PROVIDERS: ADMIT Internal Medicine; ATTEND Internal Medicine
PROC: 0BH17EZ Insertion of Endotracheal Airway into Trachea, Via Natural or Artificial Opening (ICD-10-PCS; principal; 2018-11-26)
PROC: 5A1935Z Respiratory Ventilation, Less than 24 Consecutive Hours (ICD-10-PCS; 2018-11-26)
PROC: 05HM33Z Insertion of Infusion Device into Right Internal Jugular Vein, Percutaneous Approach (ICD-10-PCS; 2018-11-27)
PROC: B513YZA Fluoroscopy of Right Jugular Veins using Other Contrast, Guidance (ICD-10-PCS; 2018-11-27)
DX: A41.9 Sepsis, unspecified organism (principal); L89.154 Pressure ulcer of sacral region, stage 4; J96.00 Acute respiratory failure, unspecified whether with hypoxia or hypercapnia; R65.21 Severe sepsis with septic shock; L89.213 Pressure ulcer of right hip, stage 3; L89.223 Pressure ulcer of left hip, stage 3; I50.20 Unspecified systolic (congestive) heart failure; N39.0 Urinary tract infection, site not specified; C18.9 Malignant neoplasm of colon, unspecified; C64.9 Malignant neoplasm of unspecified kidney, except renal pelvis; M86.671 Other chronic osteomyelitis, right ankle and foot; R57.0 Cardiogenic shock; I11.0 Hypertensive heart disease with heart failure; E11.8 Type 2 diabetes mellitus with unspecified complications; I48.0 Paroxysmal atrial fibrillation; E11.9 Type 2 diabetes mellitus without complications; Z95.1 Presence of aortocoronary bypass graft; I25.10 Atherosclerotic heart disease of native coronary artery without angina pectoris; Z79.4 Long term (current) use of insulin; Z79.82 Long term (current) use of aspirin
CPT/HCPCS: 31500; 36415; 36600; 71045; 74176; 80053; 80061; 81001; 81003; 82803; 82962; 83036; 83605; 83735; 84132; 84443; 84484; 85025; 85610; 85730; 87081; 87086; 92950; 93005; 94002; 94003; 94770; J0171; J0692; J1265; J1815; J2370; J3370; J7030; J7070